=== PATIENT | female | born 2000 | race Caucasian/White ===

== ENCOUNTER 2022-05-16 18:33 | Emergency (ER) | payer SELFPAY ==
[2022-05-16 18:35] VITALS: BP 130/87; PULSE 96; RESP 15; TEMP 36.1; O2SAT 99; BMI 40.9
--- NOTE | 2022-05-16 19:33 | EDS_ITS ---
HPI History of Present Illness Chief Complaint: Dental Narrative Narrative: 21-year-old female presenting with left dental pain. She states is in her molar. Patient states that several days ago she felt a piece of the tooth cracked. She has had pain in that area since. She states he recently moved from [place] and does not have any insurance. She states dental will be about 8 months of waiting. She states that she has not any facial swelling. She does state that she is having difficulty eating secondary to the pain but also states she has food in her teeth from eating prior to coming. No trouble swallowing or breathing. She states she has been digging at the tooth with her finger and feels like there may be some drainage. PFSH PFSH Home Medications clindamycin HCl 150 mg capsule 450 mg PO TID 10 days #90 caps 05/16/22 [Rx Last Taken Unknown] Allergy/AdvReac Type Severity Reaction Status Date / Time amoxicillin Allergy Upset Verified 05/16/22 18:35 Stomach erythromycin base Allergy Upset Verified 05/16/22 18:35 Stomach Penicillins [PCN] Allergy Upset Verified 05/16/22 18:35 Stomach ROS ROS ED Constitutional Constitutional ED: Denies chills, fever(s) or sweats Eyes Eyes: Denies blurry vision or change in vision ENT ENT ED: Reports other Details: Dental pain ; Denies ear pain or sore throat Cardiovascular Cardiovascular: Denies chest pain, palpitations or racing heartbeat Respiratory/Chest Respiratory/Chest: Denies cough, dyspnea or sputum Gastrointestinal Gastrointestinal: Denies abdominal pain, constipation, diarrhea, nausea or vomiting Genitourinary Genitourinary ED: Denies dysuria, hematuria or urinary frequency Musculoskeletal Musculoskeletal: Denies arthralgias, myalgias or neck pain Integumentary Denies abscess, Abrasions or rash Neurologic Neurologic: Denies headache(s), paresthesias or weakness Psychiatric Psychiatric: Denies anxiety, depression, suicidal ideation or suicidal thoughts Endocrine Endocrinology: Denies polydipsia or polyuria EXAM Physical Exam Const Vital Signs: 05/16/22 18:35 Temperature 96.9 F L Temperature Source Temporal Pulse Rate 96 Respiratory Rate 15 Blood Pressure 130/87 H Blood Pressure Mean 101 Pulse Ox 99 Oxygen Delivery Method Room Air Positive well nourished General Appearance ED: NAD HEENT Negative for trauma Mouth ED: Yes lips normal, Yes tongue normal, Yes salivary gland normal, Yes oral and palatal mucosa abnormal and No trismus Mouth: lips normal, tongue normal, salivary gland normal, oral and palatal mucosa abnormal, No lesions, No thrush and No trismus Teeth and Gingiva: abnormal tooth and associated gingiva Positive for tenderness (Left molar) Throat: posterior oropharynx normal and tonsils normal Eyes PERRL Neck no lymphadenopathy and supple Lymph Lymphatic: no lymphadenopathy noted Resp normal respiratory effort and no retractions Cardio regular rate and regular rhythm Neuro oriented x3, CN's II-XII intact bilaterally, moves all extremities, no focal motor deficits and no sensory deficits noted Sensorium / Orientation: alert Psych mental status grossly normal MDM MDM MDM Narrative Medical decision making narrative: Patient presenting with dental pain. She states that her left molar. On examination she does have tenderness here. There are some slight erythema of the gingiva surrounding this. There is a piece of food impacted in between the teeth. No drainage is noted. No sublingual edema, tongue is normal. No submandibular fullness. No facial swelling. Patient states she is allergic to penicillin, erythromycin. Patient will be started on clindamycin. She is given dental referral sheets. Return precautions were discussed. Impression: 1. Dental infection 2. Odontalgia Lab Data Attestation: I reviewed the patient's lab results. Discharge Plan Triage Chief Complaint: Dental ED Provider: Rehan Sanders Dx/Rx/DC Orders Instructions: ED Dental Abscess Prescriptions: New clindamycin HCl 150 mg capsule 450 mg PO TID 10 Days Qty: 90 0RF Primary Care Provider: Jennie Cortes,Out of Referrals: Jennie Cortes,Out of [Primary Care Provider] - Disposition Disposition: Home, Self Care
[2022-05-16] MEDS: Clindamycin HCl 150 MG Capsule 450 MG PO (19:57)
== END 2022-05-16 20:30 | disposition home or self-care (01) ==
PROVIDERS: Emergency Provider Student in an Organized Health Care Education/Training Program; Visit Provider Student in an Organized Health Care Education/Training Program
DX: K04.7 Periapical abscess without sinus (principal); K01.1 Impacted teeth
CPT/HCPCS: 99283

== ENCOUNTER 2022-09-22 16:49 | Emergency (ER) | payer SELFPAY ==
[2022-09-22 16:50] VITALS: BP 126/90; PULSE 95; RESP 18; TEMP 36.4; O2SAT 100; BMI 39.1
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
== END 2022-09-22 17:48 | disposition home or self-care (01) ==
PROVIDERS: Emergency Provider Emergency Medicine; Visit Provider Emergency Medicine
DX: F41.9 Anxiety disorder, unspecified (principal); F43.0 Acute stress reaction
CPT/HCPCS: 99281

== ENCOUNTER 2022-10-06 20:12 | Emergency (ER) | payer SELFPAY ==
[2022-10-06 20:13] VITALS: BP 135/100; PULSE 97; RESP 18; TEMP 36.1; O2SAT 98; BMI 39.6
--- NOTE | 2022-10-06 20:41 | EX.ED.DYSGE1 ---
HPI History of Present Illness Chief Complaint: Lower Extremity Injury Detail of Chief Complaint: Low back pain Informant: patient Narrative Narrative: Patient presents secondary to low back pain. She states at work yesterday she was doing some training. There was a larger person in front of her and she was trying to lower them to the ground as weight. She states her left leg went out to the side and she fell harshly onto her right knee. She felt something pull in her lower back. When she got up this morning she had increased low back pain that wraps around into the hips. She does report some pain down toward the right thigh. No problems with bowel or bladder control. She states when she sits in a certain position she will feel like her legs go numb. She denies any history of back problems. [facility] Medical History Anxiety Home Medications hydroxyzine pamoate 25 mg capsule 50 mg PO TID PRN PRN Anxiety #20 CAPSULES 09/22/22 [Rx Last Taken Unknown] cyclobenzaprine 10 mg tablet 10 mg PO TID PRN Muscle Spasm #20 TABLETS 10/06/22 [Rx Last Taken Unknown] hydrocodone-acetaminophen 5-325mg 5mg-325mg 1 tab PO Q6H PRN PRN Pain 3 days #10 TABLETS 10/06/22 [Rx Last Taken Unknown] naproxen 500 mg tablet (Naprosyn) 500 mg PO BID PRN pain #20 tabs 10/06/22 [Rx Last Taken Unknown] Allergy/AdvReac Type Severity Reaction Status Date / Time amoxicillin Allergy Upset Verified 10/06/22 20:13 Stomach erythromycin base Allergy Upset Verified 10/06/22 20:13 Stomach Penicillins [PCN] Allergy Upset Verified 10/06/22 20:13 Stomach Social History Smoking Status: Never smoker ROS ROS ED Constitutional Constitutional ED: Denies chills or fever(s) Eyes Eyes: Denies discharge from eye(s) ENT ENT ED: Denies discharge from eye(s), rhinorrhea or sore throat Cardiovascular Cardiovascular: Denies chest pain or palpitations Respiratory/Chest Respiratory/Chest: Denies cough or dyspnea Gastrointestinal Gastrointestinal: Denies abdominal pain, nausea or vomiting Genitourinary Genitourinary ED: Denies difficulty urinating or dysuria Musculoskeletal Musculoskeletal: Reports back pain and extremity pain Integumentary Denies Abrasions or rash Neurologic Neurologic: Reports paresthesias; Denies headache(s) Psychiatric Psychiatric: Denies anxiety or depression Allergic/Immunologic Allergic/Immunologic ED: Denies lip swelling or urticaria EXAM Physical Exam Const Vital Signs: 10/06/22 20:13 Temperature 97 F L Temperature Source Temporal Pulse Rate 97 Respiratory Rate 18 Blood Pressure 135/100 H Blood Pressure Mean 111 Pulse Ox 98 Oxygen Delivery Method Room Air Positive well nourished and well developed General Appearance ED: well developed HEENT Reports normocephalic and head/scalp atraumatic Eyes PERRL and EOMs intact bilaterally Neck supple Chest Wall inspection of chest normal and palpation of chest normal Resp normal respiratory effort and clear to auscultation bilaterally Cardio regular rate and regular rhythm GI normal to inspection, nondistended, normoactive bowel sounds Palpation: soft Back/Spine Back/Spine Narrative: Reproducible tenderness in the bilateral lower lumbar paraspinal muscles. Extremity normal to inspection Neuro oriented x3 and no sensory deficits noted Sensorium / Orientation: alert Motor Exam: strength 5/5 throughout Psych mental status grossly normal Skin no rashes or lesions noted MDM MDM MDM Narrative Medical decision making narrative: Given the patient did have a hard fall onto her knee lumbar spine x-rays are obtained to ensure no evidence of compression fracture. Radiography Diagnostic Testing: Clinical Impression(s) from Imaging Studies Lumbar Spine X-Ray 10/06/22 20:50 IMPRESSION: Normal x-ray examination of the lumbar spine. Electronically Signed: Rebel Vincent MD at 21:07 EDT Reading Location ID and State: [facility] / [place] , Service support , Treatment and Re-Evaluation :: Lumbar spine x-ray per my interpretation reveals no evidence of fracture. Radiology interpretation is reviewed and agrees. Test results discussed with the patient. I will write her for naproxen, Flexeril, and [place]. I did ask her if she wants us to be on Worker's Comp. as the injury did occur at work and she denies. Discharge Plan Triage Chief Complaint: Lower Extremity Injury ED Provider: Nuno,Marquita Dx/Rx/DC Orders Clinical Impression: Lumbar radiculopathy, Lumbar strain Instructions: ED Back Sprain/Strain, ED Sciatica Prescriptions: New naproxen [Naprosyn] 500 mg tablet 500 mg PO BID PRN (Reason: pain) Qty: 20 0RF cyclobenzaprine 10 mg tablet 10 mg PO TID PRN (Reason: Muscle Spasm) Qty: 20 0RF hydrocodone-acetaminophen 5-325 mg tablet 1 tab PO Q6H PRN PRN (Reason: Pain) 3 Days Qty: 10 0RF No Action hydroxyzine pamoate [hydroxyzine pamoate] 25 mg capsule 50 mg PO TID PRN PRN (Reason: Anxiety) Qty: 20 0RF Rx Instructions: 1-2 capsule up to 3 times daily as needed for anxiety. Primary Care Provider: Care Physician,No Primary Referrals: Summer Adam MD [Med Staff - Library Customer Service Clerk] - 1-2 Weeks Care Physician,No Primary [Primary Care Provider] - Disposition Disposition: Home, Self Care
--- NOTE | 2022-10-06 20:50 | RAD_ITS ---
STUDY: X-RAY - LUMBAR SPINE REASON FOR EXAM: Female, 22 years old. injury TECHNIQUE: 3 view(s) of the lumbar spine were obtained. COMPARISON: None FINDINGS: Normal lumbar lordosis. There is no substantial scoliosis. There is a normal alignment of the vertebrae. Normal vertebral bodies and endplates. Normal disc space heights. Gallbladder has been removed surgically. RAD/Lumbar Spine 2 or 3 Views IMPRESSION: Normal x-ray examination of the lumbar spine. Electronically Signed: Rebel Vincent MD at 21:07 EDT ,
[2022-10-06] MEDS: HYDROcodone Bitartrate/Apap 5/325 Tablet PO (22:20)
[2022-10-06] MEDS: cycloBENZAPRine HCl 10 MG Tablet PO (22:20)
[2022-10-06 22:23] VITALS: PULSE 97; RESP 18; O2SAT 98
== END 2022-10-06 22:24 | disposition home or self-care (01) ==
PROVIDERS: Emergency Provider Emergency Medicine; Visit Provider Emergency Medicine
DX: S39.012A Strain of muscle, fascia and tendon of lower back, initial encounter (principal); M54.16 Radiculopathy, lumbar region; R20.2 Paresthesia of skin; X50.0XXA Overexertion from strenuous movement or load, initial encounter; Y99.0 Civilian activity done for income or pay
CPT/HCPCS: 72100; 99283

== ENCOUNTER 2022-10-14 20:28 | Emergency (ER) | payer SELFPAY ==
[2022-10-14 20:28] VITALS: BP 129/73; PULSE 99; RESP 16; TEMP 36.6; O2SAT 98; BMI 41.0
--- NOTE | 2022-10-14 20:40 | EX.ED.DYSGE1 ---
HPI History of Present Illness Chief Complaint: Anxiety Narrative Narrative: Patient presents with anxiety, she has chronic anxiety she was recently seen in the emergency department and placed on Vistaril, she ran out. She has an appointment with PCP in about 3 weeks and with counseling center and about 2 weeks. She has no new complaints she does not have any suicidal ideations. She has no somatic complaints. [facility] Medical History Anxiety Home Medications hydroxyzine pamoate 25 mg capsule 50 mg PO TID PRN PRN Anxiety #20 CAPSULES 09/22/22 [Rx Last Taken Unknown] hydroxyzine pamoate 50 mg capsule (Vistaril) 50 mg PO BID #30 caps 10/14/22 [Rx Last Taken Unknown] hydroxyzine pamoate 50 mg capsule (Vistaril) 50 mg PO BID PRN anxiety #30 caps 10/14/22 [Rx Last Taken Unknown] Allergy/AdvReac Type Severity Reaction Status Date / Time amoxicillin Allergy Upset Verified 10/14/22 20:31 Stomach erythromycin base Allergy Upset Verified 10/14/22 20:31 Stomach Penicillins [PCN] Allergy Upset Verified 10/14/22 20:31 Stomach Social History Smoking Status: Never smoker ROS ROS ED ROS Narrative Past medical history: Reviewed, includes PTSD and anxiety Medications: Reviewed Social history: Noncontributory Review of systems: All systems negative except as indicated General: No fever Cardiovascular: No chest pain Respiratory: No shortness of breath or cough Gastrointestinal: No abdominal pain, nausea vomiting or diarrhea Genitourinary: No dysuria Psych: As in HPI EXAM Physical Exam Narrative Exam Narrative: Physical exam General: She is relatively comfortable in the bed Head: Normocephalic, Atraumatic Eyes: Conjunctiva not pale ENT: Moist mucous membranes Cardiovascular: Regular rate, Regular rhythm Respiratory: No distress, CTA bilaterally Abdomen: Soft, Nontender, Nondistended Skin: Normal color, No rash Neurological: Alert, Normal Strength, Normal Sensation Psychological: Anxious appearing, however she is lucid and coherent and gives me a reasonable history. No suicidal ideations Const Vital Signs: 10/14/22 20:28 Temperature 97.8 F Temperature Source Temporal Pulse Rate 99 Respiratory Rate 16 Blood Pressure 129/73 H Blood Pressure Mean 91 Pulse Ox 98 Oxygen Delivery Method Room Air MDM MDM MDM Narrative Medical decision making narrative: Patient has anxiety, this is chronic and recurrent I do not believe this is somatic, therefore TSH, basic metabolic panel or even a CBC are not needed. She is young and healthy with normal vitals. I will discharge her in stable condition. She is to follow-up with her appointments. I believe it is reasonable to fill some Vistaril for her. Discharge Plan Triage Chief Complaint: Anxiety ED Provider: Eugene Rock Dx/Rx/DC Orders Clinical Impression: Anxiety, Post traumatic stress disorder Instructions: Anxiety Disorders Tx Prescriptions: New hydroxyzine pamoate [Vistaril] 50 mg capsule 50 mg PO BID PRN (Reason: anxiety) Qty: 30 0RF hydroxyzine pamoate [Vistaril] 50 mg capsule 50 mg PO BID Qty: 30 0RF No Action hydroxyzine pamoate [hydroxyzine pamoate] 25 mg capsule 50 mg PO TID PRN PRN (Reason: Anxiety) Qty: 20 0RF Label Comments: PT REPORTS SHE IS OUT OF THIS MED. Rx Instructions: 1-2 capsule up to 3 times daily as needed for anxiety. Primary Care Provider: Care Physician,No Primary Referrals: Care Physician,No Primary [Primary Care Provider] - 3-5 Days Disposition Disposition: Home, Self Care
[2022-10-14] MEDS: hydrOXYzine PAM 25 MG Capsule 50 MG PO (20:43)
== END 2022-10-14 20:59 | disposition home or self-care (01) ==
LOC: ED 20:58
PROVIDERS: Emergency Provider Emergency Medicine; Visit Provider Emergency Medicine
DX: F41.9 Anxiety disorder, unspecified (principal); F43.10 Post-traumatic stress disorder, unspecified; Z76.0 Encounter for issue of repeat prescription
CPT/HCPCS: 99282

== ENCOUNTER → 2022-11-23 | Outpatient (CLI) | payer BC, SELFPAY ==
[2022-11-23 08:19] LABS: Hematocrit 39.4 % (37-47); Hemoglobin 12.6 g/dL (12.0-15.0); Mean Corpuscular Hgb 29.2 pg (27.0-32.0); Mean Corpuscular Volume 91.4 fL (81-99); Platelet Count 284 K/mm3 (150-450); RBC Distribution Width SD 40.2 fl (35.1-43.9); Red Blood Count 4.31 M/mm3 (4.2-5.4); White Blood Count 8.4 K/mm3 (4.4-11.0)
[2022-11-23 08:52] LABS: Vitamin D,25 Hydroxy 21.5 ng/mL
[2022-11-23 08:57] LABS: ALB/GLOB Ratio 0.8 RATIO (0.9-2.4); AST(SGOT) 17 U/L (15-37); Alanine Aminotransfer ALT/SGPT 19 U/L (13-56); Albumin, Serum 3.4 g/dL (3.2-5.0); Alkaline Phosphatase 87 U/L (45-117); Anion Gap 7 (5-15); BUN 15 mg/dL (7-18); BUN/Creat Ratio 20.9 RATIO (10-20); Calcium,Total 8.5 mg/dL (8.5-10.1); Chloride 107 mmol/L (98-107); Cholesterol 182 mg/dL (200); Creatinine, Serum 0.72 mg/dL (0.55-1.02); EST Glomerular Filtration Rate 107 mL/min (>60); Est Glom Filt Rate - Afr Amer 129 mL/min (>60); Globulin 4.2 g/dL (2.2-4.2); Glucose 101 mg/dL (74-106); High Density Lipoprotein 46 mg/dL; Potassium 4.2 mmol/L (3.5-5.1); Protein, Total 7.6 g/dL (6.4-8.2); Sodium Level 139 mmol/L (136-145); T4 Free Direct 0.91 ng/dL (0.76-1.46); Thyroid Stim Hormone (TSH) 3.38 uIU/mL (0.358-3.74); Triglycerides 173 mg/dL; Very Low Density Lipoprotein 35 mg/dL (5-40)
== END | disposition home or self-care (01) ==
DX: Z76.89 Persons encountering health services in other specified circumstances (principal); F33.2 Major depressive disorder, recurrent severe without psychotic features; Z13.6 Encounter for screening for cardiovascular disorders; Z13.1 Encounter for screening for diabetes mellitus; Z86.39 Personal history of other endocrine, nutritional and metabolic disease
CPT/HCPCS: 36415; 80053; 80061; 82306; 84439; 84443; 85027

== ENCOUNTER → 2022-12-01 | Outpatient (CLI) | payer BC, SELFPAY ==
--- NOTE | 2022-12-01 16:59 | RAD_ITS ---
INDICATION: left ankle strain EXAMINATION/TECHNIQUE: X-RAY - LEFT XR Ankle Min 3 Views 3 VIEWS COMPARISON: Left ankle series 11/14/2022 FINDINGS: SOFT TISSUES: No soft tissue swelling or gas. No radiopaque foreign body. BONES/JOINTS: No acute fracture. Joint spaces anatomically aligned. RAD/Ankle min 3 Views IMPRESSION: Unremarkable study. Electronically Signed: Brandon Padilla MD at 17:13 EDT ,
== END | disposition home or self-care (01) ==
LOC: MTRAD 16:59
PROVIDERS: Referring Provider Physician Assistant Surgical; Visit Provider Physician Assistant Surgical
DX: S93.402A Sprain of unspecified ligament of left ankle, initial encounter (principal); X58.XXXA Exposure to other specified factors, initial encounter
CPT/HCPCS: 73610

== ENCOUNTER → 2022-12-30 | Outpatient (CLI) | payer OTHER, SELFPAY ==
--- NOTE | 2022-12-30 11:44 | MRI_ITS ---
EXAM: MR LEFT LOWER EXTREMITY WITHOUT INTRAVENOUS CONTRAST, ANKLE CLINICAL INDICATION: L ankle pain TECHNIQUE: Multiplanar and multisequence MR images of the left ankle without intravenous contrast. COMPARISON: August FINDINGS: LIGAMENTS: ANTERIOR TALOFIBULAR: Unremarkable. Intact. POSTERIOR TALOFIBULAR: Unremarkable. Intact. ANTERIOR TIBIOFIBULAR: Unremarkable. Intact. POSTERIOR TIBIOFIBULAR: Unremarkable. Intact. CALCANEOFIBULAR: Unremarkable. Intact. DELTOID: Signal alteration suggesting low to moderate grade sprain injury involving the deltoid ligamentous complex deep and superficial fibers. SPRING: Unremarkable. Intact. LISFRANC: Unremarkable. Intact. TENDONS: ACHILLES: Unremarkable. Intact. FLEXOR: Unremarkable. Intact. EXTENSOR: Unremarkable. Intact. PERONEAL: Unremarkable. Intact. TIBIALIS ANTERIOR: Unremarkable. Intact. TIBIALIS POSTERIOR: Unremarkable. Intact. MUSCLES: Unremarkable. Normal bulk and signal. FLUID: Unremarkable. No joint effusion. SINUS TARSI: Unremarkable. Normal fat in the sinus tarsi. TARSAL TUNNEL: Unremarkable. PLANTAR FASCIA: Unremarkable. Intact. CARTILAGE: Unremarkable. No osteochondral lesion. Articular cartilage intact. BONES/JOINTS: Unremarkable. Talar dome intact. No fracture or marrow edema. OTHER SOFT TISSUES: Unremarkable. OTHER FINDINGS: Peroneal tenosynovitis. MRI/Lower Ext Joint Only (Routine) IMPRESSION: Peroneal tenosynovitis with intact peroneal tendons. Signal alteration suggesting low to moderate grade sprain injury involving the deltoid ligamentous complex deep and superficial fibers. Electronically Signed: Haim Dey MD at 22:38 EDT Reading Location ID and State: [address] [place] [address] Tel , Service support ,
== END | disposition home or self-care (01) ==
LOC: MRI 11:34
PROVIDERS: Referring Provider Physician Assistant Surgical; Visit Provider Physician Assistant Surgical
DX: S93.402A Sprain of unspecified ligament of left ankle, initial encounter (principal); X58.XXXA Exposure to other specified factors, initial encounter
CPT/HCPCS: 73721

== ENCOUNTER 2023-02-24 20:52 | Emergency (ER) | payer BC, SELFPAY ==
[2023-02-24 20:53] VITALS: BP 141/93; PULSE 104; RESP 15; TEMP 36.2; O2SAT 99; BMI 41.8
--- NOTE | 2023-02-24 21:32 | ED.VIS.DYS ---
HPI History of Present Illness Chief Complaint: Shortness of Breath PFSH PFSH Medical History Anxiety Contusion of left knee Left ankle sprain Sprain of left foot Home Medications CBD Oil topical 01/18/23 [History Last Taken Unknown] ibuprofen 600 mg tablet 600 mg PO Q8H PRN 01/18/23 [History Last Taken Unknown] doxycycline hyclate 100 mg capsule 100 mg PO BID 7 days #14 caps 02/24/23 [Rx Last Taken Unknown] Allergy/AdvReac Type Severity Reaction Status Date / Time amoxicillin Allergy Upset Verified 02/24/23 20:58 Stomach erythromycin base Allergy Upset Verified 02/24/23 20:58 Stomach Penicillins [PCN] Allergy Upset Verified 02/24/23 20:58 Stomach trazodone AdvReac Unknown suicidal Verified 02/24/23 20:58 ideation Social History Smoking Status: Never smoker EXAM Physical Exam Const Vital Signs: 02/24/23 20:53 02/24/23 21:05 Temperature 97.1 F L Temperature Source Temporal Pulse Rate 104 H Respiratory Rate 15 Respiratory Effort Normal Non-Labored Blood Pressure 141/93 H Blood Pressure Mean 109 Pulse Ox 99 Oxygen Delivery Method Room Air MDM MDM MDM Narrative Medical decision making narrative: HISTORY OF PRESENT ILLNESS: 22-year-old female here with concern for shortness of breath. Notes with any activity she gets coughing and short of breath. White or clear sputum. She feels like her lungs follow-up with fluid when she exercises or when she sleeps. She is concerned that she may in her sleep. She denies any chest pain or shortness of breath at this time. Denies any cough or fever. Denies any lower extremity edema. The patient denies recent surgery in the last 4 weeks or immobilization in the last 3 days, denies previous diagnosis of DVT or PE, hemoptysis, unilateral leg swelling or malignancy with treatment the last 6 months or palliative. No estrogen use noted. REVIEW OF SYSTEMS: Pertinent positives: Short of breath Pertinent negatives: PHYSICAL EXAM: Nursing triage notes reviewed, Vital signs reviewed Constitutional: please see mdm HENT: MMM Eyes: Pupils equal round and reactive to light, Extraocular muscles intact Neck: No stridor, no JVD, full neck ROM Lungs: Clear to auscultation, No wheezing or rales. No increased work of breathing, no conversational dyspnea, no accessory muscle use, no nasal flaring. No respiratory distress noted Heart: Regular rate and rhythm, No murmurs, No rubs and No gallops, 2+ distal pulses (radial, femoral, posterior tibial) in all extremities Abdomen: Soft, there is no tenderness, rigidity, rebound or guarding, no obvious peritoneal signs, no palpable pulsatile abdominal masses, no auscultated abdominal bruit : No CVAT Extremities: No edema Neuro: No focal neurological deficits, cranial nerves II through XII intact, 5/5 strength in all extremities. Intact sensation to light touch in all extremities, 2+ reflexes bilateral patella tendons. Normal gait. No ataxia. Skin: No rash or lesions noted MEDICAL DECISION MAKING: Chief Complaint: Shortness of breath External records reviewed: Prior ED visit reviewed: Last ED visit in 2022 for anxiety Factors affecting care: Anxiety Social determinants of health: Takes CBD oil History obtained from others: Patient's family Consults: none MDM Narrative: Patient was hemodynamically stable, afebrile, nontoxic-appearing. Without obvious focal abnormalities. I considered the following differential diagnosis: Pulmonary edema, pneumonia, pulmonary embolism I considered PE however the patient is low risk Wells score and as such have a low suspicion for pulmonary embolism. I did obtain an x-ray to rule out signs of pneumonia or pulmonary edema. Chest x-ray was read and reviewed by myself and showed no evidence of pulmonary edema or pneumonia. Per radiology read they are concerned about right middle lobe pneumonia. Given this concern we will give prophylactic antibiotics. Is not hypoxic and there is no indication for admission at this time. ALL IMAGES (IF OBTAINED) HAVE BEEN PERSONALLY REVIEWED AND INTERPRETED BY MYSELF. The patient and/or family, caregivers express understanding. The patient and/or family, caregivers agrees with the plan. Shared decision making: I will have a discussion with the patient and or visitors regarding risk/benefits of further testing or admission. They will be made aware of of the risk/benefits inherent in this decision they will be given the opportunity to voice understanding. Total critical care time today provided was at least 0 minutes. This excludes separately billable procedures. Critical care time (if documented) is secondary to the patient having high probability of clinically significant/life threatening deterioration in the patient's condition which required my urgent intervention. Impression: 1. Dyspnea 2. History of asthma 3. Community-acquired pneumonia Dispo: Discharge Radiography Diagnostic Testing: Clinical Impression(s) from Imaging Studies Chest X-Ray 02/24/23 21:58 IMPRESSION: Right middle lobe pulmonary opacity which may be pneumonia or atelectasis. Electronically Signed: Richie VSarah Peralta DO at 22:30 EDT , Discharge Plan Triage Chief Complaint: Shortness of Breath ED Provider: Mike High Dx/Rx/DC Orders Instructions: ED Pneumonia (Adult) Prescriptions: New doxycycline hyclate 100 mg capsule 100 mg PO BID 7 Days Qty: 14 0RF No Action CBD Oil topical ibuprofen 600 mg tablet 600 mg PO Q8H PRN Primary Care Provider: Care Physician,No Primary Referrals: Diana Resenidz MD [Med Staff - Palliative Care Nurse] - Activity Restrictions/Additional Instructions: Thank you for trusting us with your care today! Please take Tylenol (2 pills, 650 mg), ibuprofen (2 pills, 400 mg) every 6 hours as needed for pain and fever control. Please take antibiotics as prescribed. Please return to the emergency department if your symptoms change or worsen. Specifically if develop worsening shortness of breath, cough, fatigue or weakness. If you lose consciousness. Please follow with your primary care physician for further outpatient evaluation and management. Disposition Disposition: Home, Self Care
--- NOTE | 2023-02-24 21:58 | RAD_ITS ---
EXAM: XR CHEST, 2 VIEWS CLINICAL INDICATION: SOB, cough, r/o PNA TECHNIQUE: Frontal and lateral views of the chest. COMPARISON: No relevant prior studies available. FINDINGS: LUNGS AND PLEURAL SPACES: Right middle lobe pulmonary opacity which may be pneumonia or atelectasis. No pneumothorax. No effusion. HEART: No significant abnormality. Cardiac silhouette not enlarged. MEDIASTINUM: Central airways and mediastinal contour are unremarkable. BONES/JOINTS: No significant abnormality. SOFT TISSUES: No significant abnormality. RAD/Chest PA and Lateral IMPRESSION: Right middle lobe pulmonary opacity which may be pneumonia or atelectasis. Electronically Signed: Richie Peralta DO at 22:30 EDT ,
[2023-02-24] MEDS: Doxycycline 100 MG CAPSULE PO (22:53)
== END 2023-02-24 23:02 | disposition home or self-care (01) ==
PROVIDERS: Emergency Provider Emergency Medicine; Visit Provider Emergency Medicine
DX: J18.9 Pneumonia, unspecified organism (principal); F41.9 Anxiety disorder, unspecified; J45.909 Unspecified asthma, uncomplicated
CPT/HCPCS: 71046; 99282

== ENCOUNTER 2023-03-05 07:30 | Outpatient (RCR) | payer OTHER, SELFPAY ==
--- NOTE | 2022-12-25 07:46 | HP.PTEVAL ---
Patient's Visit Information Visit Information Visit Information: MATT DRUMMOND is a 22 year old F referred to Physical Therapy by ASIM Gomez with a diagnosis of L ankle sprain. Date of Evaluation: 12/25/22 Physical Therapist: Sharan Rosario, MARYJOT, OCS, CSCS Visit Plan Frequency: 3x /Week Duration: 4-6 Weeks Plan: 3x/week for 3-6 weeks for 1. manual therapy PROM and STM L ankle and foot 2. AROM and strength and proprioception to tolerance of L ankle gait training, TENS with ice as needed, ensure appropriate bracing and weaning if appropriate.progress HEP, stair training. Will need to run again at work eventually. Subjective Subjective: November 09 fell off a scooter working with [employer] at [facility]. Rerolled L ankle again two weeks later chasing [employer]. Had x rays and diagnosed with sprain. it got a little better then she reinjured it. Now it is on no running restriction, then put on aircast and put on sitting only so cannot work for the last two weeks. It does not feel much better overall. she wears aircast up and about. Walking a bunch makes it worse and partially numb. Hurt on inside at first and now hurts outside. 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 Spends day in bed playing video games. When working is 50 hours per week in 4 days. And is standing and on feet alot walking and running when she can work. Sleep is not a problem with the ankle. Pain L ankle: Pain Intensity (Out of 10): 3 Pain Intensity Range: 2 and 6 Objective Objective: Pronounced Ta jhonny ya dons and doffs aircast I. Tightness present in gastroc today minimally L ankle antalgic with gait and avoids DF at end of stance cutting stance time short. SLS L is 1 sec vs 5+ on R, hesitant due to pain laterally. Trasnfers chair and bed I. L ankle aROM hesitant and limited to -6 DF, 50 PF, 15 inv and 10 eversion AROM self limited, PROM is to 0 Df, 60 PF, 25 inv and 15 eversion but pain end of DF and PF and inv lateral L ankle. Pt has admitted anxiety and this comes out when attempting to move ankle R ankle 5 DF to 60 PF, to 30 inv and 20 eversion. strength L ankle is hesitant and 4-, vs 4 on R ankle Tender to touch over fibular malleoli and distal to that in lateral ligs moderately and up into peroneal tendons minimally. - talar tilt test.reflexes 2/3 patella and achilles B sensation B feet and LE WNL to gross light touch. Balance/Special Test Scores Lower Extremity Functional Score: 35 Goals Goal 1:: Patient have full aROM L ankle without hesitation or pain Goal Time Frame: 2-4 Weeks Goal 2:: Walk and steps without antalgia Goal Time Frame: 4-6 Weeks Goal 3:: Pt feel 90% back to normal ankle function with 0-1/10 pain Goal Time Frame: 4-6 Weeks Goal 4:: Ready to return to work full duty Goal Time Frame: 4-6 Weeks Rehabilitation Potential Physical Therapy Diagnosis: Likely L ankle sprain with hesitancy to move. Rehabilitation Potential: Fair Anticipated Interventions Patient/Client Instruction: Educate patient on: Condition and Plan of Care For the Purpose of:: To decrease pain, To increase ROM, To improve nutrient delivery to tissue and To improve muscle performance and motor function Therapeutic Exercise to Include: Strength training, Flexibilty training, Gait and locomotor training, Passive ROM and Active ROM For the Purpose of:: To decrease pain, To increase ROM, To improve nutrient delivery to tissue, To improve muscle performance and motor function, To increase tolerance to activity/condition/position, To improve ability of physical actions for home/community/work/leisure and To improve gait and locomotor functions Manual Therapy Techniques to Include: Mobilization, Passive ROM and Soft tissue mobilization For the Purpose of:: To decrease pain, To increase ROM and To improve nutrient delivery to tissue TENS: Yes Cryotherapy (ice pack, ice massage): Yes For the Purpose of:: To decrease pain, To decrease swelling/inflammation and To increase ROM Text: Thank you for the opportunity to evaluate your patient. For Medicare and Medicare HMO plans, please review the plan of care and approve it. It will need to be FAXED BACK to us at [phone] for Medicare purposes. For Medicare only, by signing this I certify the plan of care. Please let me know if there are questions or concerns regarding this plan of care. Physician Signature: Date:
--- NOTE | 2023-01-16 12:12 | HP.PTREVAL ---
Re-Evaluation Intro: ASIM Gomez, It has been my pleasure to treat MATT DRUMMOND over the last 11 visits for L ankle sprain. Please see the progress note below for an update on the physical therapy plan of care! Subjective Subjective: Waiting on ortho to call and schedule appointment. She thinks it has been approved. Overall feels like she is holding her own but not better. 4/10 pain intermittiently with standing too long and getting in and out of shower. Pain is laterally. Evening is worse and sometimes swollen. Is now in a boot from [facility] and this has brought pain down from 7 to 2-4/10. Sleeping is not interrupted bythe ankle. Is in boot all day also using crutches NWB for 2 weeks and is not much better than two weeks ago. Is being obedient to NWB at home, not always boot. Objective Objective/Function: LEFS is worse than day one despite pain levels being down and NWB status. Seems preoccupied with pain and popping in a fear avoidance manner. DF AROM to 0 very slowly and fear avoidance on pain and popping. Inv 25 with pain laterally, eversion 15 with no pain. PF able but heel raises are mild painful. Tender over peroneal tendons at and above malleoli L, less so in lateral ligaments of ankle. Walking is slow and labored and avoids DF on l ankle today without AD. NWB ambulation is tolerable and good without pain. Appropriate for ortho consult and will continue PT until that time. Plan Plan Plan: POC Pateint to do strengthening and end ROM at home. In therapy, please do STM and PROM to end range and ankle mobs for ROM, can use MH and ice massage. can rollout gastroc and soleus and stretch progressing to HEP. May do proprioceptive stuff L ankle when WB allowed by doctor. Balance/Gait/Functional tests Balance/Special Test Scores Lower Extremity Functional Score: 18 Goals Goals Goal 1:: Patient have full aROM L ankle without hesitation or pain Goal Time Frame: 2-4 Weeks Goal Progress: Progressing Goal 2:: Walk and steps without antalgia Goal Time Frame: 4-6 Weeks Goal Progress: Not Progressing Goal 3:: Pt feel 90% back to normal ankle function with 0-1/10 pain Goal Time Frame: 4-6 Weeks Goal Progress: ARDUAOUSLY SLOW Goal 4:: Ready to return to work full duty Goal Time Frame: 4-6 Weeks Goal Progress: Not Progressing Anticipated Interventions Anticipated Interventions Patient/Client Instruction: Educate patient on: Condition and Plan of Care For the Purpose of:: To decrease pain, To increase ROM, To improve nutrient delivery to tissue and To improve muscle performance and motor function Therapeutic Exercise to Include: Strength training, Flexibilty training, Gait and locomotor training, Passive ROM and Active ROM For the Purpose of:: To decrease pain, To increase ROM, To improve nutrient delivery to tissue, To improve muscle performance and motor function, To increase tolerance to activity/condition/position, To improve ability of physical actions for home/community/work/leisure and To improve gait and locomotor functions Manual Therapy Techniques to Include: Mobilization, Passive ROM and Soft tissue mobilization For the Purpose of:: To decrease pain, To increase ROM and To improve nutrient delivery to tissue TENS: Yes Cryotherapy (ice pack, ice massage): Yes For the Purpose of:: To decrease pain, To decrease swelling/inflammation and To increase ROM Re-Evaluation Ending Re-evaluation ending: Please do not hesitate to contact me at [phone] by phone or if you have questions or concerns regarding this new plan of care! Sincerely, Sharan Rosario, DPT, OCS, CSCS
--- NOTE | 2023-01-31 13:15 | HP.PTREVAL ---
Re-Evaluation Intro: ASIM Gomez, It has been my pleasure to treat MATT DRUMMOND over the last 17 visits for L ankle sprain. Please see the progress note below for an update on the physical therapy plan of care! Subjective Subjective: [place] 6 hours. Hurt after that /10 for that day and into the next. Normal activities at home are OK. 2/10 pain at rest most of time. sleep is OK. Doing HEP of HR, band and ROM. Does band with GTB 3x10 Objective Objective/Function: walking without antalgia today, jogs Ok for 80 feet then gets slightly L antalgic. ROM is WNL and without increased pain today. Tender over peroneal tendons at maleoli but better than a month ago. Strength is 4 in eversion and 5/5 in DF , inv and PF on l ankle. Plan Plan Plan: 3x/week for 4 weeks to progress proprioception and strength and especially jogging volume, agility, plyo per tolerance. Balance/Gait/Functional tests Balance/Special Test Scores Lower Extremity Functional Score: 52 Goals Goals Goal 1:: Patient have full aROM L ankle without hesitation or pain Goal Time Frame: 2-4 Weeks Goal Progress: Progressing Goal 2:: Walk and steps without antalgia Goal Time Frame: 4-6 Weeks Goal Progress: Not Progressing Goal 3:: Pt feel 90% back to normal ankle function with 0-1/10 pain Goal Time Frame: 4-6 Weeks Goal Progress: ARDUAOUSLY SLOW Goal 4:: Ready to return to work full duty Goal Time Frame: 4-6 Weeks Goal Progress: Not Progressing Anticipated Interventions Anticipated Interventions Patient/Client Instruction: Educate patient on: Condition and Plan of Care For the Purpose of:: To decrease pain, To increase ROM, To improve nutrient delivery to tissue and To improve muscle performance and motor function Therapeutic Exercise to Include: Strength training, Flexibilty training, Gait and locomotor training, Passive ROM and Active ROM For the Purpose of:: To decrease pain, To increase ROM, To improve nutrient delivery to tissue, To improve muscle performance and motor function, To increase tolerance to activity/condition/position, To improve ability of physical actions for home/community/work/leisure and To improve gait and locomotor functions Manual Therapy Techniques to Include: Mobilization, Passive ROM and Soft tissue mobilization For the Purpose of:: To decrease pain, To increase ROM and To improve nutrient delivery to tissue TENS: Yes Cryotherapy (ice pack, ice massage): Yes For the Purpose of:: To decrease pain, To decrease swelling/inflammation and To increase ROM Re-Evaluation Ending Re-evaluation ending: Please do not hesitate to contact me at [phone] by phone or if you have questions or concerns regarding this new plan of care! Sincerely, Sharan Rosario, DPT, OCS, CSCS
--- NOTE | 2023-03-05 07:47 | HP.PTDCSUM ---
Discharge Summary D/C summary: It has been my pleasure to treat MATT DRUMMOND referred by ASIM Gomez, with the diagnosis of L ankle sprain for a total of 29 visit(s). Discharge Date: 03/05/23 Please see the following information for a summary of their discharge status. Subjective Subjective: Feeling good. No pain all weekend and normal activity.. She gets it slightly and transiently with running but that is not part of her typical activity(may have to do it at work). Ankle not keeping her up at night. Carried heavy boxes over weekend without a problem. Life is normal. Feels like she is ready for work. Has braces she will wear to work. BTB 3x10 ankle, heel raises, jogging/walking at home as HEP. Pain L ankle: Pain Intensity (Out of 10): 0 Overall Improvement % Improvement: 95 Objective Objective/Function: Walking normal and steps normal up and down. 8 degrees DF, full PF/inv/ev symmetrical with R side without pain. 4+/5 strength in all ankle motions...no pain. Objectively and subjectively ready to RTW. Goals Goal 1:: Patient have full aROM L ankle without hesitation or pain Goal Progress: Goal Met Goal 2:: Walk and steps without antalgia Goal Progress: Goal Met Goal 3:: Pt feel 90% back to normal ankle function with 0-1/10 pain Goal Progress: Goal Met Goal 4:: Ready to return to work full duty Goal Progress: Goal Met Plan Plan: d/c to HEP and gym workout. D/C Information d/c sentence: If there are questions or concerns regarding this patient's physical therapy, please feel free to call me at [phone]. Thank you for the referral of this patient. Sincerely, Sharan Rosario, DPT, OCS, CSCS Balance/Gait/Functional tests Balance/Special Test Scores Lower Extremity Functional Score: 73 Improvement % Improvement: 95
== END 2023-03-05 19:00 | disposition home or self-care (01) ==
LOC: PT 07:30
PROVIDERS: Visit Provider Physician Assistant Surgical
DX: S93.402D Sprain of unspecified ligament of left ankle, subsequent encounter (principal)
CPT/HCPCS: 97014; 97035; 97110; 97140; 97161; 97164; 97530; G0283

== ENCOUNTER 2023-03-09 18:08 | Emergency (ER) | payer BC, SELFPAY ==
[2023-03-09 18:10] VITALS: BP 130/86; PULSE 91; RESP 18; TEMP 36.1; O2SAT 100; BMI 42.0
[2023-03-09 18:45] LABS: Mucous, Urine 0 SEEN /hpf (<or=2+); Squamous Epithelial Cells - UA 0 SEEN /hpf (5-10)
[2023-03-09 18:47] LABS: Color, Urine Yellow (Yellow); Glucose, Dipstick Normal (Normal); Ketone-Dipstick Negative (Negative); Leukocyte Esterase-Dipstick 500 /ul (Negative); Nitrite-Dipstick Negative (Negative); Occult Blood-Urine 250 /ul (Negative); Protein-Dipstick 15 mg/dl (Negative); Urine Bilirubin Dipstick Negative (Negative); Urine Clarity Sl. Cloudy (Clear); Urine Urobilinogen Normal (Normal)
--- NOTE | 2023-03-09 19:04 | EDS_ITS ---
HPI HPI - Female History of Present Illness Chief Complaint: Complaint Narrative Narrative: 22-year-old female presenting with hematuria, dysuria, urinary frequency. She has history of UTIs and kidney stones. She states earlier this week she had some back pain that was bilateral. The back pain is resolved and now she is having dysuria and hematuria. No fevers, chills, nausea, vomiting. She went to urgent care who tested her urine and told her she might have a UTI, but she states they wrote a prescription for antibiotics but then they could not fill it and stays in her home without antibiotics. She came here because she needed antibiotics for her UTI. PFSH PFS Medical History Anxiety Contusion of left knee Left ankle sprain Sprain of left foot Home Medications CBD Oil topical 01/18/23 [History Last Taken Unknown] ibuprofen 600 mg tablet 600 mg PO Q8H PRN 01/18/23 [History Last Taken Unknown] doxycycline hyclate 100 mg capsule 100 mg PO BID 7 days #14 caps 02/24/23 [Rx Last Taken Unknown] nitrofurantoin monohydrate/macrocrystals 100 mg capsule (Macrobid) 100 mg PO Q12H 5 days #10 caps 03/09/23 [Rx Last Taken Unknown] nitrofurantoin monohydrate/macrocrystals 100 mg capsule (Macrobid) 100 mg PO Q12H 5 days #10 caps 03/09/23 [Rx Last Taken Unknown] Allergy/AdvReac Type Severity Reaction Status Date / Time amoxicillin Allergy Upset Verified 03/09/23 18:09 Stomach erythromycin base Allergy Upset Verified 03/09/23 18:09 Stomach Penicillins [PCN] Allergy Upset Verified 03/09/23 18:09 Stomach trazodone AdvReac Unknown suicidal Verified 03/09/23 18:09 ideation Social History Smoking Status: Never smoker ROS ROS ED Constitutional Constitutional ED: Denies chills, fever(s) or sweats Eyes Eyes: Denies blurry vision or change in vision ENT ENT ED: Denies ear pain or sore throat Cardiovascular Cardiovascular: Denies chest pain, palpitations or racing heartbeat Respiratory/Chest Respiratory/Chest: Denies cough, dyspnea or sputum Gastrointestinal Gastrointestinal: Denies abdominal pain, constipation, diarrhea, nausea or vomiting Genitourinary Genitourinary ED: Reports dysuria, hematuria and urinary frequency Musculoskeletal Musculoskeletal: Reports other Details: Resolved bilateral back pain ; Denies arthralgias, myalgias or neck pain Integumentary Denies abscess, Abrasions or rash Neurologic Neurologic: Denies headache(s), paresthesias or weakness Psychiatric Psychiatric: Denies anxiety, depression, suicidal ideation or suicidal thoughts Endocrine Endocrinology: Denies polydipsia or polyuria EXAM Physical Exam Const Vital Signs: 03/09/23 18:10 Temperature 97 F L Temperature Source Temporal Pulse Rate 91 Respiratory Rate 18 Blood Pressure 130/86 H Blood Pressure Mean 100 Pulse Ox 100 Oxygen Delivery Method Room Air Positive well nourished General Appearance ED: NAD HEENT Reports moist mucous membranes Eyes PERRL and EOMs intact bilaterally Neck no lymphadenopathy Resp normal respiratory effort Cardio regular rate and regular rhythm GI normal to inspection, nondistended, normoactive bowel sounds Back/Spine no CVA tenderness Neuro oriented x3 Sensorium / Orientation: alert Motor Exam: strength 5/5 throughout Psych mental status grossly normal Skin no rashes or lesions noted MDM MDM MDM Narrative Medical decision making narrative: Patient presenting with dysuria and hematuria. She is concerned for UTI but she also states he has a history of kidney stones and had back pain earlier this week. She does not feel that she has any back pain now. She is more concerned for UTI. We will start with a urinalysis. She already had a negative hCG today. Urinalysis consistent with UTI. She is not having any flank pain. We discussed the possibility of kidney stone although at this point she wants to be treated for UTI. She is given a prescription which was filled here at the hospital. Return precautions were discussed. Impression: 1. UTI 2. Hematuria Lab Data Attestation: I reviewed the patient's lab results. Labs: Laboratory Results - last 24 hr 03/09/23 18:35 Urine Color Yellow Urine Clarity Sl. Cloudy Urine pH 6.0 Ur Specific [place] 1.020 Urine Protein 15 H Urine Glucose (UA) Normal Urine Ketones Negative Urine Occult Blood 250 H Urine Nitrite Negative Urine Bilirubin Negative Urine Urobilinogen Normal Ur Leukocyte Esterase 500 H Urine RBC 10-25 SEEN Urine WBC >100 SEEN Ur Squamous Epith Cells 0 SEEN Urine Bacteria 1+ Urine Mucus 0 SEEN Discharge Plan Triage Chief Complaint: Complaint ED Provider: Rehan Sanders Dx/Rx/DC Orders Instructions: ED Cystitis Female Adult Prescriptions: New nitrofurantoin monohyd/m-cryst [Macrobid] 100 mg capsule 100 mg PO Q12H 5 Days Qty: 10 0RF Rx Instructions: must administer with a meal/food nitrofurantoin monohyd/m-cryst [Macrobid] 100 mg capsule 100 mg PO Q12H 5 Days Qty: 10 0RF Rx Instructions: must administer with a meal/food Discontinued nitrofurantoin monohyd/m-cryst 100 mg capsule 1 cap PO Q12H 7 Days Qty: 14 0RF Rx Instructions: administer with a meal/food; swallow whole; do not open, crush, dissolve , or chew No Action CBD Oil topical ibuprofen 600 mg tablet 600 mg PO Q8H PRN doxycycline hyclate 100 mg capsule 100 mg PO BID 7 Days Qty: 14 0RF Referrals: Fatoumata Franklin MD [Med Staff - Active Staff] - 3-5 Days if not improving Disposition Disposition: Home, Self Care
[2023-03-09 19:20] LABS: Bacteria 1+ /hpf (None Seen); Red Blood Cells-Urine 10-25 SEEN /hpf (0-5); White Blood Cells >100 SEEN /hpf (0-5)
[2023-03-09 19:45] VITALS: BP 122/69; PULSE 90; RESP 18; O2SAT 98
== END 2023-03-09 20:02 | disposition home or self-care (01) ==
PROVIDERS: Emergency Provider Student in an Organized Health Care Education/Training Program; Visit Provider Student in an Organized Health Care Education/Training Program
DX: N39.0 Urinary tract infection, site not specified (principal); R31.9 Hematuria, unspecified; R30.0 Dysuria
CPT/HCPCS: 81001; 99282

== ENCOUNTER → 2023-03-09 | Outpatient (CLI) | payer BC, SELFPAY | END | disposition home or self-care (01) | LOC: LABSPEC 03-12 10:22 | PROVIDERS: Referring Provider Physician Assistant Surgical; Visit Provider Physician Assistant Surgical | DX: R30.0 Dysuria (principal) | CPT/HCPCS: 87086; 87088 ==

== ENCOUNTER 2023-03-18 16:22 | Emergency (ER) | payer BC, SELFPAY ==
[2023-03-18 16:24] VITALS: BP 124/85; PULSE 100; RESP 18; TEMP 36.5; O2SAT 100; BMI 42.3
--- NOTE | 2023-03-18 17:05 | ED.VIS.CHEST ---
HPI History of Present Illness Chief Complaint: Chest Other Detail of Chief Complaint: Right-sided chest pain over the region of the right middle lobe Informant: patient Onset/Context/Timing Onset: Today Activity at onset: sudden and other (With coughing) Timing: Intermittent Quality: Positive for Burning Location: Right Parasternal Current Severity: Depends if patient is coughing or not Maximum Severity: Moderate Worsened By: Coughing Relieved By: Nothing Associated Symptoms: Negative for Nausea, Vomiting, Diaphoresis, Dyspnea, Cough, Fever, Lightheadedness, Acid Reflux or Palpitations Narrative Narrative: Patient is a 22-year-old female who was seen on February 24. She was diagnosed with a right middle lobe infiltrate. Patient was treated with doxycycline. Patient presents today because of persistent cough and now having a burning sensation over the right anterior chest with coughing. She denies sputum production or hemoptysis. She still complains of mild congestion. She denies fever. She denies headache, visual, ocular auditory symptoms. There is no history of trauma. She denies history of VTE. She has no risk factors for VTE. She denies GI symptoms. Specifically she denies intolerance to greasy or fried foods. Prior Similar Symptoms: Yes Recent Illness/Hospitalization: Yes CVD Risk Factors: Negative for Hypertension, Diabetes, Hypercholesterolemia, Family History 1' </=55 or Smoking PE Risk Factors: Negative for Recent Travel/Surgery, Recent Immobilization, Prior DVT or PE or Cancer TAD Risk Factors: Negative for Marfan's Syndrome, Hypertension or Family History [facility] Medical History Anxiety Contusion of left knee Left ankle sprain Sprain of left foot Home Medications CBD Oil topical 01/18/23 [History Last Taken Unknown] ibuprofen 600 mg tablet 600 mg PO Q8H PRN pain 01/18/23 [History Last Taken Unknown] naproxen 500 mg tablet 500 mg PO BID #14 tabs 03/18/23 [Rx Last Taken Unknown] Allergy/AdvReac Type Severity Reaction Status Date / Time amoxicillin Allergy Upset Verified 03/18/23 16:23 Stomach erythromycin base Allergy Upset Verified 03/18/23 16:23 Stomach Penicillins [PCN] Allergy Upset Verified 03/18/23 16:23 Stomach trazodone AdvReac Unknown suicidal Verified 03/18/23 16:23 ideation Social History (Updated 03/18/23 @ 17:[address] Shawn Barrett MD) Smoking Status: Never smoker substance use type: does not use ROS ROS ED Constitutional Constitutional ED: Denies chills, fever(s), subjective or sweats Eyes Eyes: Reports none ENT ENT ED: Reports rhinorrhea and sore throat; Denies ear pain Cardiovascular Cardiovascular: Reports as per HPI; Denies orthopnea or paroxysmal nocturnal dyspnea Respiratory/Chest Respiratory/Chest: Reports cough; Denies dyspnea, dyspnea on exertion, orthopnea or paroxysmal nocturnal dyspnea Gastrointestinal Gastrointestinal: Denies abdominal pain, nausea or vomiting Musculoskeletal Musculoskeletal: Denies arthralgias or myalgias Hematologic/Lymphatic Hematologic/Lymphatic: Denies easy bleeding or easy bruising EXAM Physical Exam Const Vital Signs: 03/18/23 16:24 03/18/23 16:35 Temperature 97.7 F L Temperature Source Temporal Pulse Rate 100 Respiratory Rate 18 Respiratory Pattern Normal Blood Pressure 124/85 H Blood Pressure Mean 98 Pulse Ox 100 Oxygen Delivery Method Room Air Positive well nourished and well developed General Appearance ED: well developed and NAD; Negative for pallor HEENT Reports TM's clear and moist mucous membranes HEENT Narrative: Posterior pharynx is normal. normocephalic and atraumatic Tympanic Membrane ED: Yes TM's clear Eyes PERRL and EOMs intact bilaterally General Eye ED: Negative for pale conjunctiva or scleral icterus Neck no lymphadenopathy, supple and no JVD Chest Wall inspection of chest normal and palpation of chest normal Resp normal respiratory effort and clear to auscultation bilaterally Cardio regular rate, regular rhythm, S1 normal heart sound, S2 normal heart sound and no murmurs GI normal to inspection, nondistended, normoactive bowel sounds, soft to palpation, non-tender and non-distended; Negative for hepatosplenomegaly Extremity Extremity Narrative: There is no asymmetry, swelling, discoloration, leg vein distention, palpable cords or tenderness along the distribution of the deep venous system. Neuro oriented x3 and CN's II-XII intact bilaterally Sensorium / Orientation: awake and alert Psych mental status grossly normal Skin no rashes or lesions noted and no wounds General Skin Exam: Negative for jaundice or pallor MDM MDM MDM Narrative Medical decision making narrative: Will obtain chest x-ray to determine if there is evidence of a pneumothorax or persistent pneumonia. This most likely represents pleurisy due to her recent diagnosis of pneumonia. Patient's vital signs are unremarkable. She is not hypoxic. Radiography Chest X-Ray - ED: 2 View and Read by ED Physician (2 view chest x-ray independent reviewed interpreted by me as negative. There is no infiltrate. Suspect patient has pleuritic chest pain. We will treat as such. Cardiac silhouette and size normal. Lung parenchyma normal. Osseous structures are unremarkable.) Diagnostic Testing: Clinical Impression(s) from Imaging Studies Chest X-Ray 03/18/23 17:26 IMPRESSION: Nonacute x-ray examination of the chest. Electronically Signed: Milton Britton MD (Brooks) at 17:46 EDT Reading Location ID and State: [facility] / [place] , Service support , Discharge Plan Triage Chief Complaint: Chest Other Other Complaint: Cold Sx ED Provider: Shawn Barrett Dx/Rx/DC Orders Clinical Impression: Pleuritic chest pain, Upper respiratory infection with cough and congestion Instructions: ED Pleurisy Prescriptions: New naproxen 500 mg tablet 500 mg PO BID Qty: 14 0RF No Action CBD Oil topical ibuprofen 600 mg tablet 600 mg PO Q8H PRN (Reason: pain) Primary Care Provider: Evelyne Cruz NP Referrals: Evelyen Cruz NP, CLINICAL PARTNER-C [Primary Care Provider] - 1 Week if not improving Disposition Disposition: Home, Self Care
--- NOTE | 2023-03-18 17:26 | RAD_ITS ---
STUDY: X-RAY CHEST REASON FOR EXAM: Female, 22 years old. Cough, right-sided chest pain TECHNIQUE: PA and lateral views of the chest. COMPARISON: None. FINDINGS: The lungs are clear and expanded. There is no demonstrated pleural abnormality. Normal size heart. Normal mediastinum and jhony. Normal visualized pulmonary arteries. Normal visualized aortic arch and descending thoracic aorta. Normal visualized thoracic spine. Normal visualized ribs, clavicles, and shoulders. Cholecystectomy. RAD/Chest PA and Lateral IMPRESSION: Nonacute x-ray examination of the chest. Electronically Signed: Milton Britton MD (Brooks) at 17:46 EDT ,
== END 2023-03-18 18:22 | disposition home or self-care (01) ==
PROVIDERS: Emergency Provider Emergency Medicine; PCP Registered Nurse; Visit Provider Emergency Medicine
DX: J06.9 Acute upper respiratory infection, unspecified (principal); R07.81 Pleurodynia
CPT/HCPCS: 71046; 99283

== ENCOUNTER → 2023-09-05 | Outpatient (CLI) | payer MEDICAID, SELFPAY ==
--- NOTE | 2023-09-05 15:20 | CYST_PTH ---
PATIENT: MATT DRUMMOND LOC: [facility] U#:[id number] AGE/SX: ROOM: RE09/05/[address]: Dr. López Hernandez MD : 2000 BED: DIS: 09/05/2023 SPEC #: [id number] RECD: 09/05/23 15:20 STATUS: MARY REKira #: [id number] EDMOND: 09/05/23 15:[address]: López Hernandez DEPT: SURGICAL PATHOLOGY RECD BY: Oksana Hodges ENTERED: 09/06/23 10:14 SP TYPE: Cyst OTHR DR: Evelyne Cruz, SPECIAL MACHINE STITCHER-C [facility] Tissues: CYST Procedures: Surgery Specimen Level III HEADER OPERATION: Left ring excisional biopsy cyst PRE-OP DIAGNOSIS: Left ring finger mass TISSUE SUBMITTED: Left ring finger MICROSCOPIC DIAGNOSIS Left finger mass, excision: Benign fibrous proliferation, most consistent with fibromatosis. See comment. SJ/mr 09/07/2023 COMMENT Clinical correlation and appropriate follow up are necessary. Case has been reviewed in consultation with Dr. Steven who concurs with the above diagnosis. IDC:AM MICROSCOPIC DESCRIPTION Slides are reviewed. GROSS DESCRIPTION Received in fixative is one container labeled with the patient's name and designated Soft tissue mass left ring finger. The specimen consists of a piece of chester indurated tissue measuring 0.6 x 0.6 x 0.4cm. The specimen is bisected and submitted entirely in one cassette. GET/ 09/06/2023 TC:5 CPT: 28482
== END | disposition home or self-care (01) ==
LOC: LABSPEC 15:12
PROVIDERS: PCP Registered Nurse; Referring Provider Orthopaedic Surgery; Visit Provider Orthopaedic Surgery
DX: L98.8 Other specified disorders of the skin and subcutaneous tissue (principal)
CPT/HCPCS: 88304

== ENCOUNTER 2023-09-21 16:32 | Emergency (ER) | payer MEDICAID, SELFPAY ==
[2023-09-21 16:34] VITALS: BP 133/78; PULSE 100; RESP 18; TEMP 36.4; O2SAT 99; BMI 41.5
--- NOTE | 2023-09-21 16:46 | ED.VIS.GI ---
HPI HPI - GI History of Present Illness Chief Complaint: Abd Pain Informant: patient Abdominal Pain/Flank Pain Onset: Yesterday Context: Gradual Onset Timing: Continuous Quality: Aching and - (Spasming) Location: Epigastric, LUQ and LLQ (Today) Current Severity: Moderate Maximum Severity: Moderate Worsened by: Movement Nausea/Vomiting/Emesis GI Symptom: Negative for Nausea or Vomiting Diarrhea/Melena/Hematochezia GI Symptom: Positive for Diarrhea (Chronic, unchanged); Negative for Melena or Hematochezia Associated Symptoms Associated Symptoms: Negative for Dysuria, Frequency, Hematuria or Urgency Narrative Narrative: 23-year-old female with chronic diarrhea, she had an EGD a week ago because of this, she states it was at [facility] as an outpatient and she had 4 different areas biopsied including her esophagus and stomach, test for celiac disease, H. pylori, none of that is back. She states she started getting this pain yesterday and today. Not associated with meals which does not change it. Hurts more to move. Feels like spasming. She is wondering if it is a sore muscle but she has no reason to have that although she states she was bending over a lot last couple days to do seeding in her garden. Denies any melena or bright red blood per rectum. [facility] Medical History Anxiety Contact with or exposure to other viral diseases Contusion of left knee Left ankle sprain Sprain of left foot Strain of Achilles tendon URI (upper respiratory infection) Home Medications CBD Oil topical 01/18/23 [History Last Taken Unknown] ibuprofen 600 mg tablet 600 mg PO Q8H PRN pain 01/18/23 [History Last Taken Unknown] naproxen 500 mg tablet 500 mg PO BID #14 tabs 03/18/23 [Rx Last Taken Unknown] benzonatate 200 mg capsule 200 mg PO TID PRN cough #20 caps 03/19/23 [Rx Last Taken Unknown] methylprednisolone 4 mg tablets in a dose pack (Medrol (Ramana)) See Rx Instructions PO PER PKG DIR #21 tabs 03/19/23 [Rx Last Taken Unknown] Allergy/AdvReac Type Severity Reaction Status Date / Time amoxicillin Allergy Upset Verified 09/21/23 16:33 Stomach erythromycin base Allergy Upset Verified 09/21/23 16:33 Stomach Penicillins [PCN] Allergy Upset Verified 09/21/23 16:33 Stomach trazodone AdvReac Unknown suicidal Verified 09/21/23 16:33 ideation Social History Smoking Status: Never smoker substance use type: does not use ROS ROS ED Constitutional Constitutional ED: Denies chills or fever(s) Eyes Eyes: Denies change in vision or diplopia ENT ENT ED: Denies rhinorrhea or sore throat Cardiovascular Cardiovascular: Denies chest pain or palpitations Respiratory/Chest Respiratory/Chest: Denies cough or dyspnea Gastrointestinal Gastrointestinal: Reports abdominal pain and diarrhea; Denies nausea or vomiting Genitourinary Genitourinary ED: Denies dysuria or hematuria Musculoskeletal Musculoskeletal: Denies back pain or neck pain Integumentary Denies abscess or rash Neurologic Neurologic: Denies headache(s), paresthesias or weakness Psychiatric Psychiatric: Denies depression or suicidal thoughts EXAM Physical Exam Const Vital Signs: 09/21/23 16:34 09/21/23 18:33 Temperature 97.6 F L Temperature Source Temporal Pulse Rate 100 81 Respiratory Rate 18 16 Blood Pressure 133/78 H 121/64 H Blood Pressure Mean 96 83 Pulse Ox 99 99 Oxygen Delivery Method Room Air Room Air Positive well nourished, well developed and obese General Appearance ED: well developed and NAD Nutritional Appearance: obese HEENT Reports moist mucous membranes normocephalic and atraumatic Eyes PERRL and EOMs intact bilaterally Neck full ROM and supple Resp normal respiratory effort and clear to auscultation bilaterally Cardio regular rate, regular rhythm and no murmurs GI non-distended GI Narrative: Mild tenderness without guarding or rebound epigastrium, left upper quadrant and throughout the left side down to the left lower quadrant. No other areas of tenderness. Auscultation: normoactive bowel sounds Palpation: soft Back/Spine no CVA tenderness General Back: other FROM Extremity normal to inspection General Extremety ED: Negative for edema, pulses abnormal or tenderness General Extremity: Negative for edema or pulses abnormal Neuro oriented x3, CN's II-XII intact bilaterally and no sensory deficits noted Sensorium / Orientation: awake and alert Motor Exam: strength 5/5 throughout Skin no rashes or lesions noted and no wounds MDM MDM MDM Narrative Medical decision making narrative: Although this patient has abdominal pain she does not have any other GI symptoms that are new with that. I did some basic labs that are normal, her white blood count is in the normal range at 8.5 and there is no shift. Her liver enzymes and lipase are normal as well as her which is negative, ruling out ectopic . Restarted given her GI cocktail and dicyclomine, but it did not help at all. We then gave her an injection of Toradol. This really helped. She thinks it feels more muscular now and I agree. I do not think she needs a CT although we discussed it, we considered it, but for these reasons I do not think she needs it right now. I think diverticulitis much less likely an issue here and she is in agreement. We discussed reasons to return she comfortable with supportive care at home. Lab Data Attestation: I reviewed the patient's lab results. Labs: Laboratory Results - last 24 hr 09/21/23 16:59 WBC 8.5 RBC 4.13 L Hgb 11.8 L Hct 37.2 MCV 90.1 MCH 28.6 MCHC 31.7 L RDW Std Deviation 39.7 RDW Coeff of [place] 12.2 Plt Count 295 MPV 10.4 Immature Gran % (Auto) 0.100 Neut % (Auto) 54.8 Lymph % (Auto) 36.0 [place] % (Auto) 7.3 Eos % (Auto) 1.3 Baso % (Auto) 0.5 Absolute Neuts (auto) 4.7 Absolute Lymphs (auto) 3.06 Nucleated RBC % 0 Sodium 141 Potassium 3.7 Chloride 108 H Carbon Dioxide 27.0 Anion Gap 6 BUN 16 Creatinine 0.71 Estim Creat Clear Calc 142.74 Est GFR (MDRD) Af Amer 129 Est GFR (MDRD) Non-Af 107 BUN/Creatinine Ratio 22.4 H Glucose 117 H Calcium 9.0 Total Bilirubin 0.10 L AST 16 ALT 21 Alkaline Phosphatase 77 Total Protein 7.1 Albumin 3.4 Globulin 3.7 Albumin/Globulin Ratio 0.9 Lipase 29 Serum , Qual NEGATIVE Discharge Plan Triage Chief Complaint: Abd Pain ED Provider: Shahzad Dsouza Dx/Rx/DC Orders Clinical Impression: Abdominal muscle strain Instructions: Self-Care for Strains and Sprains Prescriptions: No Action CBD Oil topical ibuprofen 600 mg tablet 600 mg PO Q8H PRN (Reason: pain) methylprednisolone [Medrol (Ramana)] 4 mg tablets,dose pack See Rx Instructions PO PER PKG DIR Qty: 21 0RF Rx Instructions: PO PER PKG DIR benzonatate 200 mg capsule 200 mg PO TID PRN (Reason: cough) Qty: 20 0RF naproxen 500 mg tablet 500 mg PO BID Qty: 14 0RF Primary Care Provider: Care Physician,No Primary Referrals: Evelyne Cruz LITHOGRAPHY CONTACT WORKER, LITHOGRAPHY CONTACT WORKER-C [Non-Staff] - 1 Week if not improving Disposition Disposition: Home, Self Care
[2023-09-21] MEDS: Dicyclomine 10 MG Capsule 20 MG PO (16:53)
[2023-09-21] MEDS: Mag Hydrox/Al Hydrox/Simeth 30 ML UDC PO (16:54)
[2023-09-21 17:03] LABS: Absolute Lymphocyte Count 3.06 X10^3/uL (0.83-4.51); Absolute Neutrophil Count 4.7 X10^3/uL (2.0-7.7); Basophil# 0.04 X10^3/uL; Basophil% 0.5 % (0-1); Eosinophil# 0.11 X10^3/uL; Eosinophils% 1.3 % (0-5); Hematocrit 37.2 % (37-47); Hemoglobin 11.8 g/dL (12.0-15.0); Lymphocyte # 3.06 X10^3/ul (0.83-4.51); Mean Corp Hgb Conc 31.7 g/dL (32-36); Mean Corpuscular Hgb 28.6 pg (27.0-32.0); Mean Corpuscular Volume 90.1 fL (81-99); Mean Platelet Vol. 10.4 fl (6.2-12.0); Monocyte# 0.62 X10^3/uL; Monocyte% 7.3 % (0-10); NRBC Flagged by Analyzer 0 % (0-5); Neutrophil # 4.67 X10^3/uL (2.7-7.7); Neutrophil % 54.8 % (47-70); Platelet Count 295 K/mm3 (150-450); RBC Distribution Width CV 12.2 % (11.6-14.6); RBC Distribution Width SD 39.7 fl (35.1-43.9); Red Blood Count 4.13 M/mm3 (4.2-5.4); White Blood Count 8.5 K/mm3 (4.4-11.0)
[2023-09-21 17:21] LABS: Internal QC Validated? YES +Cl - CLEAR BKGD; Pregnancy, Serum, hCG Quali. NEGATIVE Negative
[2023-09-21 17:22] LABS: ALB/GLOB Ratio 0.9 RATIO (0.9-2.4); AST(SGOT) 16 U/L (15-37); Alanine Aminotransfer ALT/SGPT 21 U/L (13-56); Albumin, Serum 3.4 g/dL (3.2-5.0); Alkaline Phosphatase 77 U/L (45-117); Anion Gap 6 (5-15); BUN 16 mg/dL (7-18); BUN/Creat Ratio 22.4 RATIO (10-20); Chloride 108 mmol/L (98-107); Creatinine, Serum 0.71 mg/dL (0.55-1.02); EST Glomerular Filtration Rate 107 mL/min (>60); Est Glom Filt Rate - Afr Amer 129 mL/min (>60); Estimated Creatinine Clearance 142.74 ml/min; Globulin 3.7 g/dL (2.2-4.2); Glucose 117 mg/dL (74-106); Lipase 29 U/L (13-75); Potassium 3.7 mmol/L (3.5-5.1); Protein, Total 7.1 g/dL (6.4-8.2); Sodium Level 141 mmol/L (136-145)
[2023-09-21] MEDS: Ketorolac 60 MG/2 ML Vial IM (18:19)
[2023-09-21 18:33] VITALS: BP 121/64; PULSE 81; RESP 16; O2SAT 99
[2023-09-21 19:18] VITALS: BP 122/72; PULSE 61; RESP 16; TEMP 36.7; O2SAT 99
== END 2023-09-21 19:19 | disposition home or self-care (01) ==
PROVIDERS: Emergency Provider Emergency Medicine; Visit Provider Emergency Medicine
DX: S39.011A Strain of muscle, fascia and tendon of abdomen, initial encounter (principal); K52.9 Noninfective gastroenteritis and colitis, unspecified; E66.9 Obesity, unspecified; X58.XXXA Exposure to other specified factors, initial encounter
CPT/HCPCS: 80053; 83690; 84703; 85025; 96372; 99283

== ENCOUNTER → 2023-11-26 | Outpatient (CLI) | payer MEDICAID, SELFPAY ==
--- NOTE | 2023-11-26 11:12 | MRI_ITS ---
EXAM: MR LEFT LOWER EXTREMITY WITHOUT INTRAVENOUS CONTRAST, KNEE CLINICAL INDICATION: pain, rule out meniscus or other problems TECHNIQUE: Multiplanar and multisequence MR images of the left knee without intravenous contrast. COMPARISON: December 09, 2023 exam FINDINGS: BONES/JOINTS: Unremarkable. No fracture. No abnormal bone marrow signal. No synovial hypertrophy. No intra-articular body. EXTENSOR MECHANISM: Unremarkable. MEDIAL MENISCUS: Unremarkable. LATERAL MENISCUS: Unremarkable. MEDIAL CAPSULE/SUPPORTING STRUCTURES: Unremarkable. Intact. LATERAL CAPSULE/SUPPORTING STRUCTURES: Unremarkable. Lateral collateral ligamentous complex, inclusive of the popliteal tendon, are intact. ANTERIOR CRUCIATE LIGAMENT: Unremarkable. Intact. POSTERIOR CRUCIATE LIGAMENT: Unremarkable. Intact. MUSCLES: Unremarkable. CARTILAGE: Unremarkable. Intact. FLUID: Unremarkable. No joint effusion. OTHER SOFT TISSUES: Unremarkable. No popliteal cyst. MRI/Lower Ext Joint Only (Routine) IMPRESSION: Normal left knee MRI. Electronically Signed: Haim Dey MD at 22:28 EDT ,
== END | disposition home or self-care (01) ==
LOC: MRI 13:30
PROVIDERS: Referring Provider Orthopaedic Surgery Sports Medicine; Visit Provider Orthopaedic Surgery Sports Medicine
DX: M25.562 Pain in left knee (principal)
CPT/HCPCS: 73721

== ENCOUNTER → 2023-12-19 | Outpatient (CLI) | payer MEDICAID, SELFPAY ==
--- NOTE | 2023-12-19 16:05 | RAD_ITS ---
EXAM: XR RIGHT WRIST COMPLETE, 3 OR MORE VIEWS CLINICAL INDICATION: wrist strain TECHNIQUE: Frontal, lateral and oblique views of the right wrist. COMPARISON: No relevant prior studies available. FINDINGS: BONES/JOINTS: No acute abnormality. SOFT TISSUES: Normal. No soft tissue swelling or gas. No radiopaque foreign body. RAD/Wrist min 3 Views IMPRESSION: Intact right wrist. Electronically Signed: Toby Morlaes MD at 16:25 EDT ,
== END | disposition home or self-care (01) ==
LOC: MTRAD 16:01
PROVIDERS: Referring Provider Physician Assistant; Visit Provider Physician Assistant
DX: S66.911A Strain of unspecified muscle, fascia and tendon at wrist and hand level, right hand, initial encounter (principal); X58.XXXA Exposure to other specified factors, initial encounter
CPT/HCPCS: 73110

== ENCOUNTER 2024-04-22 17:00 | Outpatient (RCR) | payer MEDICAID, SELFPAY ==
--- NOTE | 2023-10-22 18:29 | HP.PTEVAL ---
Patient's Visit Information Visit Information Visit Information: MATT DRUMMOND is a 23 year old F referred to Physical Therapy by AMAYA TRISTAN with a diagnosis of Knee Pain and Hip Pain. Date of Evaluation: 10/22/23 Physical Therapist: Sandi Barnard DPT Visit Plan Frequency: 2x /Week Duration: 4 Weeks Plan: Focus on LE and core strength/stabilization HEP Given IE: quad set, glut set, TA contraction Subjective Subjective: Patient reports that she went to the MD for something else- and they saw that her left knee cap was moving around and it does not bend around and is painful when she stands on it all day at work. It russ and it makes her feel like she is going to fall down. She has not had any scans and he sent her to PT. She also has hip issues mostly from trauma they pop in/out- she is not seeing the chiro anymore and its not helping. Her goals for PT are to be able to stand on her feet for work. 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 Worst: knees: 8/10 hips: 9/10 Agg: standing, bending, squatting. Eases: stretching, ice/heat, pain mediation. Best: 1-2/10. She describes her pain as dull and achy but can be sharp depending on how she is moving or if the hip is out of place. Last summer she had ankle sprain and had PT- its pretty much back to normal. She wears harrison shoes to work. She does have some N/T in her left leg- down to the knees- she does have some in her back at night. Sleep: disturbed- prefers to sleep on her stomach. She is not very active outside of work. PMHx/Meds: see list in chart Objective Objective: Posture: forward head, rounded shoulders- can correct but does not maintain Gait: no deviation noted HR/TR: able with UE A SLS: 5 seconds then requires UE A and reports discomfort on the left. Right: 15 seconds ROM: Lumbar: flexion: hands to ankle, extn: WNL reports pain, SB and rotation: WFL with discomfort. Hip: WFL with pain IR/ER. Knee: right: WFL left: knee: 90 degrees of flexion to 0 degrees of extension. Strength: core: fair minus, Hip: 4-/5 throughout, Knee: Extn: Left: 24 Right: 77 Flexion: Left: 18 Right:27- flexion caused hip pain on the right Flex: HS: moderate, Gastroc: moderate Special Tests R Hip ILIA - Intraarticular Pathology: Positive R Hip FADDIR - Labrum: Positive L Hip ILIA - Intraarticular Pathology: Negative L Hip FADDIR - Labrum: Negative Balance/Special Test Scores Lower Extremity Functional Score: 41 Goals Goal 1:: Patient will be I with HEP and progression Goal Time Frame: 4-6 Weeks Goal 2:: Patient will SLS for 15 seconds bilateral without LOB Goal Time Frame: 4-6 Weeks Goal 3:: Patient will maintain proper posture t/o tx session to demo increased core s/s Goal Time Frame: 4-6 Weeks Goal 4:: Patient will report 80% improvement Goal Time Frame: 4-6 Weeks Rehabilitation Potential Physical Therapy Diagnosis: Patient presents with hypomobility- she has decreased LE and core strength/stabilization, flex, ROM, proprioception and muscular endurance leading to increased pain with ADL's. Rehabilitation Potential: Fair Anticipated Interventions Patient/Client Instruction: Educate patient on: Benefits of Fitness Program Therapeutic Exercise to Include: Strength training, Endurance training, Balance training, Agility training, Body mechanics, Postural training, Flexibilty training, Gait and locomotor training, Neuromotor development, Dynamic Lumbar Stabilization and Scapular Strength/Stabilization TENS: Yes Cryotherapy (ice pack, ice massage): Yes Thermo therapy (hot pack): Yes Text: Thank you for the opportunity to evaluate your patient. For Medicare and Medicare HMO plans, please review the plan of care and approve it. It will need to be FAXED BACK to us at [phone] for Medicare purposes. For Medicare only, by signing this I certify the plan of care. Please let me know if there are questions or concerns regarding this plan of care. Physician Signature: Date:
--- NOTE | 2023-11-26 11:24 | HP.PTREVAL ---
Re-Evaluation Intro: AMAYA TRISTAN, It has been my pleasure to treat MATT DRUMMOND over the last 10 visits for Knee Pain and Hip Pain. Please see the progress note below for an update on the physical therapy plan of care! Subjective Subjective: Patient reports that since switching to focus on extension back exercises its been going better. She is not painfree and it does flare up at time but does feel that we are headed in the right direction. She feels that she is coming in with less pain and on the daily is less and she feels that she is able to a little more functional and mobile. She does not feel that her knee has really changed at all- its still doing its all of same things as we have been more focus on her back as that has more life changes like sleeping. Objective Objective/Function: Posture: forward head, rounded shoulders- can correct but does not maintain Gait: no deviation noted HR/TR: able with UE A SLS: 10 seconds then requires UE A and reports discomfort and instability on the left. Right: 15 seconds no LOB ROM: Lumbar: flexion: hands to knees with pain, extn: WNL reports feels good, SB and rotation: WFL with discomfort with SB to the left. Hip: WFL with pain IR/ER. Knee: WFL Strength: core: fair minus, Hip: 4/5 throughout, Knee: Left: 4/5 throughout Right: 4+/5 Ankle: 5/5 Flex: HS: moderate, Gastroc: moderate Special Tests R Hip ILIA - Intraarticular Pathology: Positive R Hip FADDIR - Labrum: Positive L Hip ILIA - Intraarticular Pathology: Negative L Hip FADDIR - Labrum: Negative Extn: decreases s/s Plan Plan Plan: 11/26/23: Continue with 2x a week for 6 weeks- core s/s with extn base as tolerated- increase to 60 min session to add in LE strength exercises Focus on LE and core strength/stabilization Balance/Gait/Functional tests Balance/Special Test Scores Lower Extremity Functional Score: 23 Goals Goals Goal 1:: Patient will be I with HEP and progression Goal Time Frame: 4-6 Weeks Goal Progress: Progressing Goal 2:: Patient will SLS for 15 seconds bilateral without LOB Goal Time Frame: 4-6 Weeks Goal Progress: Progressing Goal 3:: Patient will maintain proper posture t/o tx session to demo increased core s/s Goal Time Frame: 4-6 Weeks Goal Progress: Progressing Goal 4:: Patient will report 80% improvement Goal Time Frame: 4-6 Weeks Goal Progress: Progressing Anticipated Interventions Anticipated Interventions Patient/Client Instruction: Educate patient on: Benefits of Fitness Program Therapeutic Exercise to Include: Strength training, Endurance training, Balance training, Agility training, Body mechanics, Postural training, Flexibilty training, Gait and locomotor training, Neuromotor development, Dynamic Lumbar Stabilization and Scapular Strength/Stabilization TENS: Yes Cryotherapy (ice pack, ice massage): Yes Thermo therapy (hot pack): Yes Re-Evaluation Ending Re-evaluation ending: Please do not hesitate to contact me at [phone] by phone or if you have questions or concerns regarding this new plan of care! Sincerely, Sandi Barnard DPT
--- NOTE | 2023-12-27 14:02 | HP.PTREVAL ---
Re-Evaluation Intro: AMAYA TRISTAN, It has been my pleasure to treat MATT DRUMMOND over the last 20 visits for Knee Pain and Hip Pain. Please see the progress note below for an update on the physical therapy plan of care! Subjective Subjective: She is being having issues with blood clot issues- has been cleared to do PT. She feels that PT sessions for an hour are too long- 30 min are better. core is helping but back injections did not help. She goes to [place] this next month. Objective Objective/Function: Posture: forward head, rounded shoulders- can correct with verbal cues Gait: no deviation noted ROM: Lumbar: flexion: hands to mid curtis, Extn: WNL without pain, SB/Rot: WNL with mild discomfort Strength: Core: fair, Hip: 4/5 throughout, Knee: 4+/5, Ankle: 5/5 Flex: HS: mild, Gastroc: mild Plan Plan Plan: 12/27/23: Continue 2x a week for 4 weeks. Discharge all current exercises to HEP and progress to new more challenging exercises- if pt can't tolerate new exercises then d/c to current program. 11/26/23: Continue with 2x/week for 6 weeks- core s/s with ext-bias as joshua - increase to 60 min session to add in LE strength exercises. Focus on LE and core strength/stabilization. Balance/Gait/Functional tests Balance/Special Test Scores Oswestry Low Back Score: 19 Lower Extremity Functional Score: 23 Goals Goals Goal 1:: Patient will be I with HEP and progression Goal Time Frame: 4-6 Weeks Goal Progress: Progressing Goal 2:: Patient will SLS for 15 seconds bilateral without LOB Goal Time Frame: 4-6 Weeks Goal Progress: Progressing Goal 3:: Patient will maintain proper posture t/o tx session to demo increased core s/s Goal Time Frame: 4-6 Weeks Goal Progress: Progressing Goal 4:: Patient will report 80% improvement Goal Time Frame: 4-6 Weeks Goal Progress: Progressing Anticipated Interventions Anticipated Interventions Patient/Client Instruction: Educate patient on: Benefits of Fitness Program Therapeutic Exercise to Include: Strength training, Endurance training, Balance training, Agility training, Body mechanics, Postural training, Flexibilty training, Gait and locomotor training, Neuromotor development, Dynamic Lumbar Stabilization and Scapular Strength/Stabilization TENS: Yes Cryotherapy (ice pack, ice massage): Yes Thermo therapy (hot pack): Yes Re-Evaluation Ending Re-evaluation ending: Please do not hesitate to contact me at [phone] by phone or if you have questions or concerns regarding this new plan of care! Sincerely, MARYJO OropezaT
--- NOTE | 2024-02-20 09:54 | HP.PTREVAL_ITS ---
Re-Evaluation Intro: AMAYA TRISTAN, It has been my pleasure to treat MATT DRUMMOND over the last 30 visits for Knee Pain and Hip Pain. Please see the progress note below for an update on the physical therapy plan of care! Subjective Subjective: Pt reports she feels like she has made improvements, but keeps having set backs secondary to health issues. Objective Objective/Function: LBP 7/10 pain this date. SLS: Pt is only able to stand on L LE for 5 seconds until LOB Gait: Pt is able to ambulate 340 feet until needing to stop secondary to knee and LBP Pt is still limited with LBP and L knee pain with all weightbearing activity. Plan Plan Plan: 02/20/24- Continue to progress core strengthening ex's at this time. Add L SL stance and balance activity as well 12/27/23: Continue 2x a week for 4 weeks. Discharge all current exercises to HEP and progress to new more challenging exercises- if pt can't tolerate new exercises then d/c to current program. 11/26/23: Continue with 2x/week for 6 weeks- core s/s with ext-bias as joshua - increase to 60 min session to add in LE strength exercises. Focus on LE and core strength/stabilization. Pt will watch how her left arm feels later today. Balance/Gait/Functional tests Balance/Special Test Scores Oswestry Low Back Score: 19 Lower Extremity Functional Score: 24 Goals Goals Goal 1:: Patient will be I with HEP and progression Goal Time Frame: 4-6 Weeks Goal Progress: Goal Met Goal 2:: Patient will SLS for 15 seconds bilateral without LOB Goal Time Frame: 4-6 Weeks Goal Progress: Progressing Goal 3:: Patient will maintain proper posture t/o tx session to demo increased core s/s Goal Time Frame: 4-6 Weeks Goal Progress: Not observed Goal 4:: Patient will report 80% improvement Goal Time Frame: 4-6 Weeks Goal Progress: Progressing Goal 5:: Decrease LBP x 50% to aid with sleep Goal Progress: New goal Goal 6:: Pt will be able to ambulate 1000 feet without needing to stop secondary to pain Goal Progress: New goal Anticipated Interventions Anticipated Interventions Patient/Client Instruction: Educate patient on: Benefits of Fitness Program Therapeutic Exercise to Include: Strength training, Endurance training, Balance training, Agility training, Body mechanics, Postural training, Flexibilty training, Gait and locomotor training, Neuromotor development, Dynamic Lumbar Stabilization and Scapular Strength/Stabilization TENS: Yes Cryotherapy (ice pack, ice massage): Yes Thermo therapy (hot pack): Yes Re-Evaluation Ending Re-evaluation ending: Please do not hesitate to contact me at [phone] by phone or Fax: if you have questions or concerns regarding this new plan of care! Sincerely, Evans Matthews, PT, ATC
--- NOTE | 2024-03-28 15:35 | HP.PTREVAL ---
Re-Evaluation Intro: AMAYA MENAMAHIN, It has been my pleasure to treat MATT DRUMMOND over the last 41 visits for Knee Pain and Hip Pain. Please see the progress note below for an update on the physical therapy plan of care! Subjective Subjective: My knee is still sore. I feel like I need more PT for just the knee Objective Objective/Function: SLS: R LE is greater than 30 sec. L LE only 4 seconds until LOB Gait: Pt is able to ambulate 540 feet until having to rest secondary to L knee pain LBP: 5/10 L knee pain: ranges from 4-5/10 Pt continues to be limited with gait secondary to L knee pain Plan Plan Plan: Attempt to get 8 more visits to focus on L knee strengthening and gait tolerance Balance/Gait/Functional tests Balance/Special Test Scores Oswestry Low Back Score: 19 Lower Extremity Functional Score: 24 Goals Goals Goal 1:: Patient will be I with HEP and progression Goal Time Frame: 4-6 Weeks Goal Progress: Goal Met Goal 2:: Patient will SLS for 15 seconds bilateral without LOB Goal Time Frame: 4-6 Weeks Goal Progress: Progressing Goal 3:: Patient will maintain proper posture t/o tx session to demo increased core s/s Goal Time Frame: 4-6 Weeks Goal Progress: Not observed Goal 4:: Patient will report 80% improvement Goal Time Frame: 4-6 Weeks Goal Progress: Progressing Goal 5:: Decrease LBP x 50% to aid with sleep Goal Progress: Progressing Goal 6:: Pt will be able to ambulate 1000 feet without needing to stop secondary to pain Goal Progress: Progressing Anticipated Interventions Anticipated Interventions Patient/Client Instruction: Educate patient on: Benefits of Fitness Program Therapeutic Exercise to Include: Strength training, Endurance training, Balance training, Agility training, Body mechanics, Postural training, Flexibilty training, Gait and locomotor training, Neuromotor development, Dynamic Lumbar Stabilization and Scapular Strength/Stabilization TENS: Yes Cryotherapy (ice pack, ice massage): Yes Thermo therapy (hot pack): Yes Re-Evaluation Ending Re-evaluation ending: Please do not hesitate to contact me at [phone] by phone or if you have questions or concerns regarding this new plan of care! Sincerely, Evans Matthews, PT, ATC
--- NOTE | 2024-04-09 12:46 | HP.SP.DC_ITS ---
ST Discharge Summary Discharged: Discharge: MATT DRUMMOND is a 23 year old female who presented to [facility] on 02/19/2024 following a dx of dysphagia. Pt attended initial evaluation with goals created to participate in a MBSS to objectively assess swallow function. Pt participated in MBSS with [facility]. Pt provided ST the results following the procedure where her swallow function appeared to be within normal and functional limits. The evaluating therapist did recommend follow up with psychology. At this time, speech therapy intervention is not warranted. Should new or worsening symptoms develop, speech therapy could re-evaluate to determine appropriateness for intervention. Thank martin mas for allowing me to participate in the care of your patient. Will re-evaluate at Pt?s request following script from physician.
== END 2024-04-22 19:00 | disposition home or self-care (01) ==
LOC: PT 17:00
DX: M22.2X1 Patellofemoral disorders, right knee (principal); M22.2X2 Patellofemoral disorders, left knee; M67.959 Unspecified disorder of synovium and tendon, unspecified thigh
CPT/HCPCS: 92610; 97110; 97162; 97530

== ENCOUNTER 2024-05-08 20:21 | Emergency (ER) | payer MEDICAID, SELFPAY ==
[2024-05-08 20:23] VITALS: BP 137/75; PULSE 104; RESP 18; TEMP 36.1; O2SAT 100; BMI 41.1
--- NOTE | 2024-05-08 20:30 | EDS_ITS ---
HPI History of Present Illness Chief Complaint: Upper Extremity Injury [facility] Medical History (Updated 12/19/23 @ 16:59 by Kole DAILEY, PA) Right wrist sprain Left knee pain Strain of Achilles tendon Contact with or exposure to other viral diseases URI (upper respiratory infection) Sprain of left foot Left ankle sprain Contusion of left knee Anxiety Home Medications ?Medication ?Instructions ?Recorded ?Last Taken ?Type CBD Oil topical 01/18/23 Unknown History ibuprofen 600 mg tablet 600 mg PO Q8H PRN pain 01/18/23 Unknown History cholecalciferol (vitamin D3) 1,250 1,250 mcg PO QWEEK 10/05/23 Unknown History mcg (50,000 unit) capsule hydroxyzine HCl 25 mg tablet 12.5 mg PO PRN anxiety 10/05/23 Unknown History sertraline 100 mg tablet 100 mg PO QDAY 10/05/23 Unknown History valacyclovir 500 mg tablet 500 mg PO QDAY 10/05/23 Unknown History etonogestrel 68 mg subdermal 1 implant subdermal ONCE 12/11/23 Unknown History implant (Nexplanon) prednisone 10 mg tablet 10 mg PO DAILY #30 tabs 12/19/23 Unknown Rx Allergy/AdvReac Type Severity Reaction Status Date / Time amoxicillin Allergy Upset Verified 05/08/24 20:23 Stomach erythromycin base Allergy Upset Verified 05/08/24 20:23 Stomach Penicillins (PCN) Allergy Upset Verified 05/08/24 20:23 Stomach trazodone AdvReac Unknown suicidal Verified 05/08/24 20:23 ideation Social History Smoking Status: Never smoker substance use type: does not use EXAM Physical Exam Const Vital Signs: 05/08/24 20:23 Temperature 97 F L Temperature Source Temporal Pulse Rate 104 H Respiratory Rate 18 Blood Pressure 137/75 H Blood Pressure Mean 95 Pulse Ox 100 Oxygen Delivery Method Room Air Discharge Plan Triage Chief Complaint: Upper Extremity Injury ED Provider: Eugenio Muniz Dx/Rx/DC Orders Prescriptions: No Action CBD Oil topical ibuprofen 600 mg tablet 600 mg PO Q8H PRN (Reason: pain) valacyclovir 500 mg tablet 500 mg PO QDAY sertraline 100 mg tablet 100 mg PO QDAY hydroxyzine HCl 25 mg tablet 12.5 mg PO PRN (Reason: anxiety) cholecalciferol (vitamin D3) 1,250 mcg (50,000 unit) capsule 1,250 mcg PO QWEEK Nexplanon 68 mg implant 1 implant subdermal ONCE Rx Instructions: as a single dose prednisone 10 mg tablet 10 mg PO DAILY Qty: 30 0RF Rx Instructions: 4 tablets daily x3 days, then 3 tablets daily x3 days, then 2 tablets daily x3 days, then 1 tablet daily x3 days Primary Care Provider: Evelyne Cruz NP Referrals: Evelyne Cruz NP, [employer] PSYCHOLOGIST[facility] [Primary Care Provider] - Print Language: Citizen Of [place]
--- NOTE | 2024-05-08 20:40 | EX.ED.UPPERE ---
HPI <ORIN Cross - Last Filed: 05/08/24 20:50> History of Present Illness Chief Complaint: Upper Extremity Injury Narrative Narrative: Patient a 23-year-old female with recent history of hysterectomy 1.5 weeks ago, started have pain to her right bicep. Patient is concerned that she might have a DVT. 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 Patient states that the pain is getting worse she says it feels like it is burning, is here for evaluation. She denies any fever chills, chest pain, nausea PFSH <ORIN Cross - Last Filed: 05/08/24 20:50> [facility] Medical History (Updated 05/08/24 @ 20:49 by ORIN Cross) Right wrist sprain Left knee pain Strain of Achilles tendon Contact with or exposure to other viral diseases URI (upper respiratory infection) Sprain of left foot Left ankle sprain Contusion of left knee Anxiety Home Medications ?Medication ?Instructions ?Recorded ?Last Taken ?Type CBD Oil topical 01/18/23 Unknown History ibuprofen 600 mg tablet 600 mg PO Q8H PRN pain 01/18/23 Unknown History cholecalciferol (vitamin D3) 1,250 1,250 mcg PO QWEEK 10/05/23 Unknown History mcg (50,000 unit) capsule hydroxyzine HCl 25 mg tablet 12.5 mg PO PRN anxiety 10/05/23 Unknown History sertraline 100 mg tablet 100 mg PO QDAY 10/05/23 Unknown History valacyclovir 500 mg tablet 500 mg PO QDAY 10/05/23 Unknown History etonogestrel 68 mg subdermal 1 implant subdermal ONCE 12/11/23 Unknown History implant (Nexplanon) prednisone 10 mg tablet 10 mg PO DAILY #30 tabs 12/19/23 Unknown Rx Allergy/AdvReac Type Severity Reaction Status Date / Time amoxicillin Allergy Upset Verified 05/08/24 20:23 Stomach erythromycin base Allergy Upset Verified 05/08/24 20:23 Stomach Penicillins (PCN) Allergy Upset Verified 05/08/24 20:23 Stomach trazodone AdvReac Unknown suicidal Verified 05/08/24 20:23 ideation Social History Smoking Status: Never smoker substance use type: does not use ROS <ORIN Cross - Last Filed: 05/08/24 20:50> ROS ED ROS Narrative Constitutional: Negative for fever, chills, weight loss, weakness Eyes: Negative for vision loss, vision change, double vision ENT: Negative for any sore throat, ear pain, congestion Cardiovascular: Negative for any chest pain, tightness, palpitations Respiratory: Negative for any cough, sputum production, hemoptysis, dyspnea, dyspnea on exertion, orthopnea Gastrointestinal: Negative for any abdominal pain, nausea, vomiting, diarrhea, constipation, blood in stool, blood in vomit : Negative for any urinary frequency, dysuria, retention, blood in urine Muscle skeletal: Negative for any neck pain, back pain. Pain to the right bicep Neurological: Negative for any headache, syncope, dizziness Skin: Negative for any rashes, itching, abrasions, lacerations Psychiatric: Negative for any depression, anxiety, stress, suicidal ideation, homicidal ideation Hematologic: Negative for any excessive bruising, easy bleeding EXAM <ORIN Cross - Last Filed: 05/08/24 20:50> Physical Exam Narrative Exam Narrative: Vital signs reviewed. Extremities: No peripheral edema, no signs of gross trauma or deformity. Active full range of motion of all extremities. Patient has no swelling, there is no significant erythema. Pain is mostly on the anterior bicep. No evidence of tendinitis. No evidence of cellulitis. +2 radial pulse Neuro: Cranial nerves II through XII intact, no focal neurological deficits. Skin: Clean dry and intact with no rash, purpura, petechiae, vesicles or pustules. Backs/flank: No CVA tenderness, no midline spinal tenderness, no deformity. Psych: Normal mood and affect. No SI, HI or acute psychosis. Const Vital Signs: 05/08/24 20:23 Temperature 97 F L Temperature Source Temporal Pulse Rate 104 H Respiratory Rate 18 Blood Pressure 137/75 H Blood Pressure Mean 95 Pulse Ox 100 Oxygen Delivery Method Room Air Positive well nourished and well developed General Appearance ED: well developed MDM <ORIN Cross - Last Filed: 05/08/24 20:50> MDM Treatment and Re-Evaluation Narrative: Differential diagnosis includes however is not limited to: DVT, superficial thrombophlebitis, muscle strain, tendinitis Patient appears to be in no obvious respiratory distress vital signs are stable, nontoxic-appearing. Presenting to the emerged part with complaints of right arm pain. Patient's biggest concern is a DVT of the right arm. 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 Patient is concerned because she also had a surgery 1.5 weeks ago. I have low suspicion for any DVT, patient is neurovascular intact. +2 radial pulse. There is no evidence of any cellulitis or infection. Patient secondary to the time of day will need to follow-up tomorrow to get the venous duplex of the right upper extremity. She is agreeable to this. She instructed return for any worsening symptoms. Stable for discharge. <Dr. Eugenio Muniz MD - Last Filed: 05/08/24 20:59> [facility] Narrative Medical decision making narrative: I have personally performed a face to face assessment of the patient and have reviewed the KENYETTA Note. I performed a substantive portion of the visit including all aspects of the following. My echavarria findings include: History is [23-year-old female recent hysterectomy. Complaining of atraumatic right bicep discomfort. Prior history of superficial thrombophlebitis in that arm in the past. Never been on blood thinners. Taking Tylenol Motrin for hysterectomy discomfort. Denies any swelling to her arm. No fever. No fall or trauma.] Exam is [well-appearing 23-year-old female. Vital signs are stable afebrile. She does not look septic or toxic. No distress. H EENT exam unremarkable. Neck nontender no JVD. Lungs clear to auscultation. Heart regular rhythm. Abdomen soft nondistended normal bowel sounds. No peritoneal signs. Moving all 4 extremities. She has mild tenderness to her right bicep. She has normal flexion extension of the arm. There is no signs of biceps tendon rupture. No discoloration. No redness or warmth. No axillary lymphadenopathy. Normal range of motion to her right shoulder, elbow and wrist. 5 out of 5 electrochemist strength of the hand. Normal sensation. Normal radial pulse. The arm is not swollen. There is no discoloration. There is mild tenderness. No cord. Neurologically she is awake and alert.] Medical Decision Making [23-year-old female history of prior superficial abdominal phlebitis. She had recent surgery should be set up tomorrow for an outpatient noninvasive study of her right upper extremity because they do not do those here at night. She is already on Tylenol Motrin for pain. She does not need any other labs or imaging at this time there is been no trauma.] Other additions or changes: [None] History & Record Review Discussion w/independent historian: Patient and Family Discharge Plan Triage Chief Complaint: Upper Extremity Injury ED Midlevel Provider: Eugene Sheriff ED Provider: Eugenio Muniz Dx/Rx/DC Orders Clinical Impression: Arm pain Instructions: ED Myalgias, ED RICE Prescriptions: No Action CBD Oil topical ibuprofen 600 mg tablet 600 mg PO Q8H PRN (Reason: pain) valacyclovir 500 mg tablet 500 mg PO QDAY sertraline 100 mg tablet 100 mg PO QDAY hydroxyzine HCl 25 mg tablet 12.5 mg PO PRN (Reason: anxiety) cholecalciferol (vitamin D3) 1,250 mcg (50,000 unit) capsule 1,250 mcg PO QWEEK Nexplanon 68 mg implant 1 implant subdermal ONCE Rx Instructions: as a single dose prednisone 10 mg tablet 10 mg PO DAILY Qty: 30 0RF Rx Instructions: 4 tablets daily x3 days, then 3 tablets daily x3 days, then 2 tablets daily x3 days, then 1 tablet daily x3 days Other Ambulatory Orders: Venous Duplex US, Unilateral (Stat) Facility: [facility] - Location: [facility] Ordered By: Eugene Sheriff Primary Care Provider: Evelyne Cruz NP Referrals: Evelyne Cruz NP, LICENSED GUIDE-C [Primary Care Provider] - Activity Restrictions/Additional Instructions: Please follow-up outpatient, follow the instructions. Print Language: Tajik Disposition Disposition: Home, Self Care
== END 2024-05-08 20:58 | disposition home or self-care (01) ==
PROVIDERS: Emergency Provider Emergency Medicine; PCP Registered Nurse; Visit Provider Emergency Medicine
DX: M79.18 Myalgia, other site (principal); F41.9 Anxiety disorder, unspecified; Z88.0 Allergy status to penicillin; Z86.72 Personal history of thrombophlebitis; Z79.899 Other long term (current) drug therapy
CPT/HCPCS: 99282

== ENCOUNTER → 2024-06-09 | Outpatient (CLI) | payer MEDICAID, SELFPAY ==
[2024-06-09 10:42] LABS: Absolute Lymphocyte Count 2.03 X10^3/uL (0.83-4.51); Absolute Neutrophil Count 3.9 X10^3/uL (2.0-7.7); Basophil# 0.03 X10^3/uL; Basophil% 0.5 % (0-1); Eosinophil# 0.07 X10^3/uL; Eosinophils% 1.1 % (0-5); Hematocrit 38.1 % (37-47); Hemoglobin 12.2 g/dL (12.0-15.0); Lymphocyte # 2.03 X10^3/ul (0.83-4.51); Lymphocyte % 31.4 % (19-41); Mean Corpuscular Volume 87.4 fL (81-99); Mean Platelet Vol. 9.5 fl (6.2-12.0); Monocyte% 6.2 % (0-10); NRBC Flagged by Analyzer 0 % (0-5); Neutrophil # 3.91 X10^3/uL (2.7-7.7); Neutrophil % 60.5 % (47-70); Platelet Count 289 K/mm3 (150-450); RBC Distribution Width CV 12.8 % (11.6-14.6); RBC Distribution Width SD 40.8 fl (35.1-43.9); Red Blood Count 4.36 M/mm3 (4.2-5.4); White Blood Count 6.5 K/mm3 (4.4-11.0)
[2024-06-09 11:15] LABS: AST(SGOT) 12 U/L (15-37); Alanine Aminotransfer ALT/SGPT 23 U/L (13-56); Albumin, Serum 3.8 g/dL (3.2-5.0); Alkaline Phosphatase 79 U/L (45-117); Anion Gap 4 (5-15); BUN 15 mg/dL (7-18); BUN/Creat Ratio 20.6 RATIO (10-20); Calcium,Total 9.2 mg/dL (8.5-10.1); Chloride 106 mmol/L (98-107); Creatinine, Serum 0.73 mg/dL (0.55-1.02); EST Glomerular Filtration Rate 103 mL/min (>60); Est Glom Filt Rate - Afr Amer 125 mL/min (>60); Glucose 109 mg/dL (74-106); Potassium 3.8 mmol/L (3.5-5.1); Protein, Total 7.8 g/dL (6.4-8.2); Sodium Level 136 mmol/L (136-145)
[2024-06-09 11:46] LABS: Hepatitis B Surface Antibody Reactive; Hepatitis B Surface Antigen Non-Reactive (Nonreactive); Hepatitis C Antibody Non-Reactive (Nonreactive)
[2024-06-10 05:07] LABS: Hepatitis A AB, Total Positive (Negative); Hepatitis B Core Ab Total Negative (Negative)
== END | disposition home or self-care (01) ==
PROVIDERS: PCP Registered Nurse; Referring Provider Nurse Practitioner Acute Care; Visit Provider Nurse Practitioner Acute Care
DX: R11.0 Nausea (principal); R10.11 Right upper quadrant pain; K59.00 Constipation, unspecified
CPT/HCPCS: 36415; 80053; 85025; 86704; 86706; 86708; 86803; 87340

== ENCOUNTER → 2024-06-24 | Outpatient (CLI) | payer MEDICAID, SELFPAY ==
--- NOTE | 2024-06-24 17:02 | RAD_ITS ---
PROCEDURE: LEFT KNEE, THREE VIEWS REASON FOR EXAM: FELL SEVERAL DAYS AGO. LEFT KNEE PAIN. TECHNIQUE: 3 view(s) of the LEFT knee COMPARISON: LEFT KNEE DATED 11/09/2023. FINDINGS: No fracture. No suspicious bone lesion. Normal alignment. No effusion. Soft tissues are unremarkable. RAD/Knee 3 Views IMPRESSION: No acute osseous findings involving the left knee. No other significant findings. Reading Location: [facility]
--- NOTE | 2024-06-24 17:02 | RAD_ITS ---
PROCEDURE: ANKLE MIN 3 VIEWS REASON FOR EXAM: Fell several days ago. TECHNIQUE: 3 views of the left ankle COMPARISON: 12/01/2022 left ankle. FINDINGS: No visible fracture. No suspicious bone lesion. Normal alignment. Mortise appears intact. No effusion. Soft tissues are unremarkable. RAD/Ankle min 3 Views IMPRESSION: NEGATIVE ANKLE SERIES Reading Location: [facility]
== END | disposition home or self-care (01) ==
LOC: MTRAD 17:02
PROVIDERS: PCP Registered Nurse; Referring Provider Nurse Practitioner; Visit Provider Nurse Practitioner
DX: M25.562 Pain in left knee (principal); W19.XXXA Unspecified fall, initial encounter; M79.672 Pain in left foot
CPT/HCPCS: 73562; 73610

== ENCOUNTER 2024-06-26 10:30 | Outpatient (RCR) | payer MEDICAID, SELFPAY ==
--- NOTE | 2024-06-04 11:06 | HP.PTREVAL ---
Re-Evaluation Intro: Dr. Aury Staples, DO, It has been my pleasure to treat MATT DRUMMOND over the last 46 visits for Knee and hip pain.. Please see the progress note below for an update on the physical therapy plan of care! Subjective Subjective: I feel like we lost a lot after my surgery Objective Objective/Function: L knee pain 2/10, LBP 5/10 L knee ROM: 0-5-120 degrees L knee MMT: flex= 39, ext= 17 #F Core strength: Pt is unable to perform a bridge full ROM secondary to core weakness Plan Plan Plan: core strengthening, L LE strengthening, balance and proprio, nustep, and hep Balance/Gait/Functional tests Balance/Special Test Scores Lower Extremity Functional Score: 35 Goals Goals Goal 1:: Decrease LBP x 50% to aid with IADL's Goal Time Frame: 4-6 Weeks Goal 2:: Increase L knee ext strength x 20#F to aid with stair negotiation Goal Time Frame: 4-6 Weeks Goal 3:: Pt will be able to perform 10 bridges with full ROM to demonstrate improved core stability Goal Time Frame: 4-6 Weeks Goal 4:: I with HEP Goal Time Frame: 4-6 Weeks Anticipated Interventions Re-Evaluation Ending Re-evaluation ending: Please do not hesitate to contact me at [phone] by phone or if you have questions or concerns regarding this new plan of care! Sincerely, Evans Matthews, PT, ATC
--- NOTE | 2024-06-26 11:26 | HP.PTDCSUM ---
Discharge Summary D/C summary: It has been my pleasure to treat MATT DRUMMOND referred by Dr. Aury Staples DO, with the diagnosis of Knee and hip pain. for a total of 53 visit(s). Discharge Date: Please see the following information for a summary of their discharge status. Subjective Subjective: I am still painful. Pain LB: Pain Intensity (Out of 10): 6 l KNEE: Pain Intensity (Out of 10): 4 L ankle: Pain Intensity (Out of 10): 4 Overall Improvement % Improvement: 44 Objective Objective/Function: LBP 6/10 L knee ext strength 19 #F Pt is able to perform 10 bridges, but not through a full ROM Pt is I with HEP Goals Goal 1:: Decrease LBP x 50% to aid with IADL's Goal Progress: Progressing Goal 2:: Increase L knee ext strength x 20#F to aid with stair negotiation Goal Progress: Progressing Goal 3:: Pt will be able to perform 10 bridges with full ROM to demonstrate improved core stability Goal Progress: Progressing Goal 4:: I with HEP Goal Progress: Goal Met Plan Plan: Discontinue to HEP D/C Information d/c sentence: If there are questions or concerns regarding this patient's physical therapy, please feel free to call me at [phone]. Thank you for the referral of this patient. Sincerely, Evans Matthews, PT, ATC Balance/Gait/Functional tests Balance/Special Test Scores Lower Extremity Functional Score: 28 Improvement % Improvement: 44
== END 2024-06-26 19:00 | disposition home or self-care (01) ==
LOC: PT 10:30
PROVIDERS: PCP Registered Nurse; Referring Provider Internal Medicine; Visit Provider Internal Medicine
DX: R13.10 Dysphagia, unspecified (principal); M22.2X1 Patellofemoral disorders, right knee; M22.2X2 Patellofemoral disorders, left knee; M67.959 Unspecified disorder of synovium and tendon, unspecified thigh
CPT/HCPCS: 97110; 97530

== ENCOUNTER → 2024-06-26 | Outpatient (CLI) | payer MEDICAID, SELFPAY | END | disposition home or self-care (01) | PROVIDERS: PCP Registered Nurse; Referring Provider Nurse Practitioner Acute Care; Visit Provider Nurse Practitioner Acute Care | DX: K76.0 Fatty (change of) liver, not elsewhere classified (principal) | CPT/HCPCS: 36415 ==

== ENCOUNTER → 2024-07-07 | Outpatient (CLI) | payer MEDICAID, SELFPAY ==
[2024-07-07 15:05] LABS: Bacteria 0 SEEN /hpf (None Seen); Mucous, Urine 0 SEEN /hpf (<or=2+); Squamous Epithelial Cells - UA 0 SEEN /hpf (5-10); White Blood Cells 0 SEEN /hpf (0-5)
[2024-07-07 15:43] LABS: Absolute Lymphocyte Count 1.98 X10^3/uL (0.83-4.51); Absolute Neutrophil Count 5.1 X10^3/uL (2.0-7.7); Basophil# 0.03 X10^3/uL; Basophil% 0.4 % (0-1); Eosinophil# 0.09 X10^3/uL; Eosinophils% 1.2 % (0-5); Hematocrit 37.2 % (37-47); Lymphocyte # 1.98 X10^3/ul (0.83-4.51); Lymphocyte % 26.1 % (19-41); Mean Corp Hgb Conc 32.3 g/dL (32-36); Mean Corpuscular Hgb 28.3 pg (27.0-32.0); Mean Corpuscular Volume 87.7 fL (81-99); Mean Platelet Vol. 10.7 fl (6.2-12.0); Monocyte# 0.41 X10^3/uL; Monocyte% 5.4 % (0-10); NRBC Flagged by Analyzer 0 % (0-5); Neutrophil # 5.07 X10^3/uL (2.7-7.7); Neutrophil % 66.6 % (47-70); Platelet Count 304 K/mm3 (150-450); RBC Distribution Width CV 12.7 % (11.6-14.6); RBC Distribution Width SD 39.9 fl (35.1-43.9); Red Blood Count 4.24 M/mm3 (4.2-5.4); White Blood Count 7.6 K/mm3 (4.4-11.0)
[2024-07-07 15:47] LABS: Color, Urine Yellow (Yellow); Glucose, Dipstick Normal (Normal); Ketone-Dipstick Negative (Negative); Leukocyte Esterase-Dipstick 25 /ul (Negative); Nitrite-Dipstick Negative (Negative); Occult Blood-Urine 10 /ul (Negative); Protein-Dipstick 15 mg/dl (Negative); Urine Bilirubin Dipstick Negative (Negative); Urine Clarity Sl. Cloudy (Clear); Urine Urobilinogen Normal (Normal)
[2024-07-07 15:57] LABS: ALB/GLOB Ratio 0.9 RATIO (0.9-2.4); AST(SGOT) 20 U/L (15-37); Alanine Aminotransfer ALT/SGPT 25 U/L (13-56); Albumin, Serum 3.6 g/dL (3.2-5.0); Alkaline Phosphatase 73 U/L (45-117); Anion Gap 6 (5-15); BUN 14 mg/dL (7-18); BUN/Creat Ratio 19.3 RATIO (10-20); CPK Total, Creatine Kinase 84 U/L (26-192); Calcium,Total 9.1 mg/dL (8.5-10.1); Chloride 108 mmol/L (98-107); Creatinine, Serum 0.73 mg/dL (0.55-1.02); EST Glomerular Filtration Rate 104 mL/min (>60); Est Glom Filt Rate - Afr Amer 126 mL/min (>60); Globulin 3.9 g/dL (2.2-4.2); Glucose 104 mg/dL (74-106); Potassium 3.9 mmol/L (3.5-5.1); Protein, Total 7.5 g/dL (6.4-8.2); Sodium Level 140 mmol/L (136-145)
[2024-07-07 16:29] LABS: Erythrocyte Sedimentation Rate 20 mm/hr (0-30)
[2024-07-07 21:33] LABS: Red Blood Cells-Urine 0 SEEN /hpf (0-5)
[2024-07-09 13:08] LABS: Anti-Nuclear Antibody Test Negative (.); Anti-dsDNA Ab <1 IU/mL (0-9)
[2024-07-09 14:08] LABS: Aldolase 4.9 U/L (3.3-10.3)
== END | disposition home or self-care (01) ==
LOC: MTLAB 13:35
PROVIDERS: PCP Registered Nurse; Referring Provider Physician Assistant Medical; Visit Provider Physician Assistant Medical
DX: L30.8 Other specified dermatitis (principal)
CPT/HCPCS: 36415; 80053; 81001; 82085; 82550; 85025; 85652; 86038; 86225

== ENCOUNTER → 2024-07-10 | Outpatient (CLI) | payer MEDICAID, SELFPAY ==
[2024-07-10 16:00] LABS: Prothrombin Time (Protime)PT. 13.1 SECONDS (11.7-14.9)
[2024-07-10 16:10] LABS: Ferritin 24 ng/mL (8-252); Iron 51 ug/dL (50-170); Iron Binding Capacity,Total 375 ug/dL (250-450); PERCENT IRON SATURATION 13.6 % (15.0-55.0)
[2024-07-14 13:08] LABS: ANTINUCLEAR ANTIBODIES DIRECT Negative (Negative); Anti-Mitochondrial AB <20.0 Units (0.0-20.0)
[2024-07-15 07:07] LABS: AFP, Tumor Marker < 1.8 ng/mL (0.0-4.7); Anti-Smooth Muscle ABS 4 Units (0-19); Ceruloplasmin 31.3 mg/dL (19.0-39.0); Cytoplasmic Ab (C-ANCA) <1:20 titer (Neg:<1:20); Immunoglobulin A 176 mg/dL (87-352); Perinuclear Ab (P-ANCA) <1:20 titer (Neg:<1:20); t-Transglutaminase IgA <2 U/mL (0-3)
== END | disposition home or self-care (01) ==
PROVIDERS: PCP Registered Nurse; Referring Provider Nurse Practitioner Acute Care; Visit Provider Nurse Practitioner Acute Care
DX: R19.7 Diarrhea, unspecified (principal); K74.60 Unspecified cirrhosis of liver; R13.10 Dysphagia, unspecified; R10.11 Right upper quadrant pain; R11.0 Nausea; R63.5 Abnormal weight gain
CPT/HCPCS: 86225; 86235; 36415; 82105; 82390; 82728; 82784; 83516; 83540; 83550; 85610; 86037; 86038

== ENCOUNTER 2024-07-16 19:44 | Emergency (ER) | payer MEDICAID, SELFPAY ==
[2024-07-16 19:45] VITALS: BP 159/89; PULSE 123; RESP 24; TEMP 37.1; O2SAT 100; BMI 39.9
[2024-07-16 19:46] VITALS: BP 159/89; PULSE 123; RESP 24; TEMP 37.1; O2SAT 100
[2024-07-16 21:26] LABS: Absolute Lymphocyte Count 1.97 X10^3/uL (0.83-4.51); Absolute Neutrophil Count 8.3 X10^3/uL (2.0-7.7); Basophil# 0.03 X10^3/uL; Basophil% 0.3 % (0-1); Eosinophil# 0.08 X10^3/uL; Eosinophils% 0.7 % (0-5); Hematocrit 36.3 % (37-47); Hemoglobin 11.8 g/dL (12.0-15.0); Lymphocyte # 1.97 X10^3/ul (0.83-4.51); Lymphocyte % 17.3 % (19-41); Mean Corp Hgb Conc 32.5 g/dL (32-36); Mean Corpuscular Hgb 28.6 pg (27.0-32.0); Mean Corpuscular Volume 88.1 fL (81-99); Mean Platelet Vol. 10.6 fl (6.2-12.0); Monocyte# 0.94 X10^3/uL; Monocyte% 8.3 % (0-10); NRBC Flagged by Analyzer 0 % (0-5); Neutrophil # 8.31 X10^3/uL (2.7-7.7); Platelet Count 309 K/mm3 (150-450); RBC Distribution Width CV 12.7 % (11.6-14.6); Red Blood Count 4.12 M/mm3 (4.2-5.4); White Blood Count 11.4 K/mm3 (4.4-11.0)
[2024-07-16 21:36] LABS: Glucose, Dipstick Normal (Normal); Ketone-Dipstick Negative (Negative); Leukocyte Esterase-Dipstick 25 /ul (Negative); Nitrite-Dipstick Negative (Negative); Occult Blood-Urine 10 /ul (Negative); Protein-Dipstick 30 mg/dl (Negative); Specific Gravity, Urine 1.015 (1.002-1.030); Urine Bilirubin Dipstick Negative (Negative); Urine Urobilinogen Normal (Normal); Urine pH 6.5 (5.0 - 8.0)
[2024-07-16 21:48] LABS: Color, Urine Yellow (Yellow); Urine Clarity Sl Cloudy (Clear)
[2024-07-16 21:52] LABS: ALB/GLOB Ratio 1.2 RATIO (0.9-2.4); AST(SGOT) 21 U/L (<=31); Alanine Aminotransfer ALT/SGPT 16 U/L (<=34); Albumin, Serum 4.3 g/dL (3.5-5.0); Alkaline Phosphatase 98 U/L (35-104); Anion Gap 11 (5-15); BUN 13 mg/dL (4-19); BUN/Creat Ratio 19.7 RATIO (10-20); Calcium 9.6 mg/dL (7.6-11.0); Carbon Dioxide 25.8 mmol/L (22.0-29.0); Chloride 101 mmol/L (96-108); Creatinine, Serum 0.7 mg/dL (0.6-1.0); EST Glomerular Filtration Rate 124 (>60); Estimated Creatinine Clearance 140.26 ml/min; Globulin 3.6 g/dL (2.2-4.2); Glucose 107 mg/dL (70-99); Lipase 31 U/L (13-75); Protein, Total 7.9 g/dL (5.9-8.4); Sodium Level 138 mmol/L (133-145); Total Bilirubin 0.18 mg/dL (0.00-1.30)
[2024-07-16 22:00] LABS: Internal QC Validated? YES +Cl - CLEAR BKGD; Pregnancy, Serum, hCG Quali. NEGATIVE Negative
[2024-07-16 22:01] LABS: Bacteria 1+ /hpf (None Seen); Mucous, Urine 1+ /hpf (<or=2+); Red Blood Cells-Urine 0-5 SEEN /hpf (0-5); Squamous Epithelial Cells - UA 5-10 SEEN /hpf (5-10); White Blood Cells 5-10 SEEN /hpf (0-5)
--- NOTE | 2024-07-16 22:45 | RAD_ITS ---
PROCEDURE: CHEST PA AND LATERAL REASON FOR EXAM: Pain TECHNIQUE: Frontal and lateral views of the chest. COMPARISON: None. FINDINGS: Heart size is mildly enlarged. The mediastinal contour is unremarkable. The lungs are clear. The bones are unremarkable. RAD/Chest PA and Lateral IMPRESSION: Mild cardiomegaly with no acute pulmonary disease. Reading Location: [facility]
--- NOTE | 2024-07-16 22:47 | EX.ED.DYSGE1 ---
HPI History of Present Illness Chief Complaint: General Illness Informant: patient Narrative Narrative: Presents by private vehicle increasing pain right lung radiating to her back. She is status post bronchoscopy a week ago with biopsies at [facility]. 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 She reports increasing lesions therefore repeat bronchoscopy performed. She has been having pain since worse with deep breaths. Today having fevers and chills. No vomiting or diarrhea. Denies any immunocompromise history. She reports also recent history of kidney injury with hematuria being referred to specialist. No history of PE or DVT. Denies any hemoptysis. [facility] Medical History Ankle pain, left Right wrist sprain Left knee pain Strain of Achilles tendon Contact with or exposure to other viral diseases URI (upper respiratory infection) Sprain of left foot Left ankle sprain Contusion of left knee Anxiety Home Medications ?Medication ?Instructions ?Recorded ?Last Taken ?Type ergocalciferol (vitamin D2) 1,250 1,250 mcg PO QWEEK 06/09/24 Unknown History mcg (50,000 unit) capsule ferrous sulfate 325 mg (65 mg 325 mg PO QDAY 06/09/24 Unknown History iron) tablet flax seed oil PO 06/09/24 Unknown History hydroxyzine HCl 25 mg tablet 25 mg PO .QID PRN anxiety 06/09/24 Unknown History magnesium hydroxide 400 mg (170 mg 400 mg PO QD-BID 06/09/24 Unknown History magnesium) chewable tablet naltrexone 50 mg tablet 50 mg PO QDAY 06/09/24 Unknown History ondansetron HCl 4 mg tablet 4 mg PO Q8H PRN 06/09/24 Unknown History pantoprazole 40 mg tablet,delayed 40 mg PO QDAY 06/09/24 Unknown History release prazosin 2 mg capsule 2 mg PO QHS 06/09/24 Unknown History sumatriptan succinate 25 mg tablet See Rx Instructions PO .COMPLEX 06/09/24 Unknown History wheat dextrin 3 gram/4 gram oral 1.5 g PO BID #500 grams 06/09/24 Unknown Rx powder (Benefiber Sugar Free (dextrin)) hydrocortisone 2.5 % topical cream 1 applic NC QD-BID PRN rectal pain 07/10/24 Unknown Rx with perineal applicator and bleeding #30 grams (Anusol-HC) quetiapine 100 mg tablet (Seroquel) 150 mg PO QHS 07/10/24 Unknown History Allergy/AdvReac Type Severity Reaction Status Date / Time amoxicillin Allergy Upset Verified 07/16/24 19:45 Stomach erythromycin base Allergy Upset Verified 07/16/24 19:45 Stomach Penicillins (PCN) Allergy Upset Verified 07/16/24 19:45 Stomach azithromycin (From Zithromax) AdvReac Intermediate Hives Verified 07/16/24 19:45 metronidazole (From Flagyl) AdvReac Intermediate Rash Verified 07/16/24 19:45 sulfamethoxazole (From AdvReac Intermediate Rash Verified 07/16/24 19:45 Bactrim) trimethoprim (From Bactrim) AdvReac Intermediate Rash Verified 07/16/24 19:45 trazodone AdvReac Unknown suicidal Verified 07/16/24 19:45 ideation Family History Mother Alcohol abuse Breast cancer Hypertension Muscle weakness Substance abuse Father Alcohol abuse Hypertension Grandmother Breast cancer Cancer Sister Hypertension Surgical History Hx of breast reduction, elective Hx of cholecystectomy Social History sexually active: No Smoking Status: Never smoker alcohol intake: never substance use type: does not use ROS ROS ED Constitutional Constitutional ED: Reports chills and fever(s); Denies sweats ENT ENT ED: Denies sore throat Cardiovascular Cardiovascular: Reports chest pain; Denies leg edema, palpitations or racing heartbeat Respiratory/Chest Respiratory/Chest: Reports dyspnea; Denies cough or dyspnea on exertion Gastrointestinal Gastrointestinal: Denies abdominal pain, diarrhea, nausea or vomiting Genitourinary Genitourinary ED: Denies dysuria, hematuria or urinary frequency Musculoskeletal Musculoskeletal: Reports back pain; Denies extremity pain or neck pain Integumentary Denies rash or wounds Neurologic Neurologic: Denies headache(s), paresthesias or weakness EXAM Physical Exam Const Vital Signs: 07/16/24 19:45 07/16/24 19:46 07/16/24 23:00 Temperature 98.8 F 98.8 F Temperature Source Oral Oral Pulse Rate 123 H 123 H 113 H Respiratory Rate 24 H 24 H 19 H Blood Pressure 159/89 H 159/89 H Blood Pressure Mean 112 112 Pulse Ox 100 100 98 Oxygen Delivery Method Room Air Room Air Room Air 07/17/24 01:15 Temperature 98.0 F Temperature Source Pulse Rate 103 H Respiratory Rate 18 Blood Pressure 145/68 H Blood Pressure Mean 93 Pulse Ox 97 Oxygen Delivery Method Positive well nourished and well developed General Appearance ED: well developed and NAD HEENT Reports moist mucous membranes normocephalic and atraumatic Eyes General Eye ED: Yes normal appearance of both eyes Neck full ROM Chest Wall Chest: Negative for tenderness Resp normal respiratory effort and normal air movement Resp Narrative: Symmetric breath sounds. Effort and Inspection: symmetric chest movement; Negative for respiratory distress Cardio regular rhythm and no murmurs Peripheral Pulses: pulses 2+ throughout GI normal to inspection, nondistended, normoactive bowel sounds and non-tender Palpation: Negative for guarding or rebound tenderness present Extremity normal to inspection General Extremety ED: Negative for edema or tenderness General Extremity: Negative for edema Neuro oriented x3 and no sensory deficits noted Sensorium / Orientation: awake and alert Skin no rashes or lesions noted and no wounds MDM MDM MDM Narrative Medical decision making narrative: Interventions / MDM: Differential diagnosis: Pleurisy, status post bronchoscopy with biopsy, history of histoplasmosis Diagnosis considered but do not suspect: Pneumothorax and pulmonary embolism however image studies are negative. My EKG interpretation: N/A Imaging independently reviewed and interpreted by myself: 2 view chest x-ray: No acute process. No pneumothorax. External documents reviewed: N/A Test considered but not ordered:N/A ED course: Afebrile on arrival was tachycardic. Pulse ox 100% room air. Symmetric breath sounds. Triage labs were obtained. White count 11.4 creatinine normal at 0.7 lipase 31. Urine occult blood 25 leukocytes white cells 5-10 1+ bacteria. She denies any dysuria or frequency. Will send for culture. Added on viral swabs of COVID, flu, RSV with two-view chest x-ray. IV pain medicines, avoid NSAIDs with her reported recent kidney injury. 2323: 2 view chest x-ray interpreted myself and read by radiology no acute process. No pneumothorax. Pain with deep breath tachycardia, obtain CT angiogram to rule out pulmonary embolism. 0100: CT angiogram neck for PE. Multiple pulmonary nodules with lymphadenopathy per radiology multiple differentials however patient has known reported histoplasmosis being followed by her specialist. Clinically was feeling better on reevaluation. With her reported kidney issues with normal labs today discussed with her avoid NSAIDs at this time she will use Tylenol up to 1 g every 6 hours. She will follow-up with her doctors. Discussed pleurisy symptoms. All questions were answered. Re-evaluation: stable Disposition discussed with patient/family/significant other: Patient Case discussed with consulting clinician: N/A This note was generated with [employer] dictation software. It may contain incorrect words, spelling, and punctuation that were not noted in checking the note before signing. Lab Data Attestation: I reviewed the patient's lab results. Labs: Laboratory Results - last 24 hr 07/16/24 07/16/24 20:27 21:10 WBC 11.4 H RBC 4.12 L Hgb 11.8 L Hct 36.3 L MCV 88.1 MCH 28.6 MCHC 32.5 RDW Std Deviation 41.0 RDW Coeff of [place] 12.7 Plt Count 309 MPV 10.6 Immature Gran % (Auto) 0.400 Neut % (Auto) 73.0 H Lymph % (Auto) 17.3 L [place] % (Auto) 8.3 Eos % (Auto) 0.7 Baso % (Auto) 0.3 Absolute Neuts (auto) 8.3 H Absolute Lymphs (auto) 1.97 Nucleated RBC % 0 Sodium 138 Potassium 4.0 Chloride Direct 101 Carbon Dioxide 25.8 Anion Gap 11 BUN 13 Creatinine 0.7 Estim Creat Clear Calc 140.26 Est GFR (MDRD) Non-Af 124 BUN/Creatinine Ratio 19.7 Glucose 107 H Calcium 9.6 Total Bilirubin 0.18 AST 21 ALT 16 Alkaline Phosphatase 98 Total Protein 7.9 Albumin 4.3 Globulin 3.6 Albumin/Globulin Ratio 1.2 Lipase 31 Serum , Qual NEGATIVE Urine Color Yellow Urine Clarity Sl Cloudy Urine pH 6.5 Ur Specific [place] 1.015 Urine Protein 30 H Urine Glucose (UA) Normal Urine Ketones Negative Urine Occult Blood 10 H Urine Nitrite Negative Urine Bilirubin Negative Urine Urobilinogen Normal Ur Leukocyte Esterase 25 H Urine RBC 0-5 SEEN Urine WBC 5-10 SEEN Ur Squamous Epith Cells 5-10 SEEN Urine Bacteria 1+ Urine Mucus 1+ Radiography Diagnostic Testing: Clinical Impression(s) from Imaging Studies Chest X-Ray 07/16/24 22:45 IMPRESSION: Mild cardiomegaly with no acute pulmonary disease. Reading Location: [facility] Chest CTA 07/16/24 23:23 IMPRESSION: No evidence of filling defect to suggest pulmonary embolism. A combination of right greater than left bilateral noncalcified pulmonary nodules and mediastinal/hilar lymph node enlargement suggests possibility of granulomatous disease, infectious, sarcoidosis among others, clinically correlate. Given the patient's age less likely to represent metastatic disease. The combination of lymph node enlargement and pulmonary nodules also less likely lymphoma although not excluded at this time. One or more dose reduction techniques were used (e.g., Automated exposure control, adjustment of the mA and/or kV according to patient size, use of iterative reconstruction technique). Reading Location: [id number] Discharge Plan Triage Chief Complaint: General Illness ED Provider: Harvinder Rossi Dx/Rx/DC Orders Clinical Impression: Pleurisy, History of histoplasmosis, Status post bronchoscopy with biopsy Instructions: ED Pleurisy Prescriptions: No Action hydroxyzine HCl 25 mg tablet 25 mg PO .QID PRN (Reason: anxiety) ferrous sulfate 325 mg (65 mg iron) tablet 325 mg PO QDAY pantoprazole 40 mg tablet,delayed release (DR/EC) 40 mg PO QDAY ergocalciferol (vitamin D2) 1,250 mcg (50,000 unit) capsule 1,250 mcg PO QWEEK flax seed oil PO magnesium hydroxide 400 mg (170 mg magnesium) tablet,chewable 400 mg PO QD-BID naltrexone 50 mg tablet 50 mg PO QDAY ondansetron HCl 4 mg tablet 4 mg PO Q8H PRN prazosin 2 mg capsule 2 mg PO QHS sumatriptan succinate 25 mg tablet See Rx Instructions PO .COMPLEX Rx Instructions: take 1 tab at onset of headache; if no relief may repeat 1 tab after at least 2 hrs; max = 4 tabs/24 hr PO Benefiber Sugar Free (dextrin) 3 gram/4 gram powder 1.5 g PO BID Qty: 500 1RF Rx Instructions: mix into at least 8 oz water or juice every morning quetiapine [Seroquel] 100 mg tablet 150 mg PO QHS hydrocortisone [Anusol-HC] 2.5 % cream with perineal applicator 1 applic NC QD-BID PRN (Reason: rectal pain and bleeding) Qty: 30 0RF Primary Care Provider: Evelyne Cruz NP Referrals: Evelyne Cruz NP, [employer] ASSEMBLING MACHINE OPERATOR-C [Primary Care Provider] - Activity Restrictions/Additional Instructions: Workup negative. X-ray CT chest no pneumothorax. No pulmonary nodules with lymphadenopathy that is known with your histoplasmosis. Use Tylenol 1 g every 6 hours needed for pain. Follow-up with your doctors. Print Language: Latvian Disposition Disposition: Home, Self Care Discharge Date/Time: 07/17/24 01:16
[2024-07-16] MEDS: HYDROmorphone 1 MG/ML Syringe 0.5 MG IV (22:56)
[2024-07-16 23:00] VITALS: PULSE 113; RESP 19; O2SAT 98
[2024-07-16] MEDS: 0.9% Normal Saline (500mL Bag) 500 ML 999 ML IV (23:09)
--- NOTE | 2024-07-16 23:23 | CT_ITS ---
PROCEDURE: CTA CHEST W/WO CONTRAST REASON FOR EXAM: Dyspnea, status post bronchoscopy with biopsy 1 week ago TECHNIQUE: Chest CT with intravenous contrast. Coronal and sagittal reformatted images and MIP images CONTRAST: 94 cc Isovue 370 COMPARISON: Chest radiograph 03/18/2023 FINDINGS: Hardware: None. Lymph nodes: Enlarged conglomeration of right paratracheal and pretracheal lymph nodes measuring a proximally 3.1 x 2.6 by 3.7 cm axial 159 and coronal 148. Enlarged tracheobronchial lymph node 1.6 cm axial 138. Mildly prominent bilateral hilar nodes. Enlarged subcarinal lymph node 1.9 x 1.7 cm axial 121. Heart and Vasculature: Normal heart size. No pericardial effusion. Thoracic aorta and pulmonary arteries are unremarkable. No evidence of filling defect to suggest pulmonary embolism. Ascending thoracic aorta 2.4 cm, descending thoracic aorta 1.9 cm. Lungs and Airways: Bilateral right more than left noncalcified pulmonary nodules with a lower zone predominance. Approximately 10 on the right and less than 5 on the left. Largest on the right within the right middle lobe subpleural anterior medial 1.2 cm axial 105 and largest on the left within the left lower lobe subpleural 1 cm axial 84. Pleura: No pleural effusion. No pneumothorax. Upper Abdomen: Visualized portions of the upper abdominal viscera are unremarkable. Common hepatic artery appears to arise directly off the abdominal aorta, anatomic variant. Status post cholecystectomy. Bones: Bone windows are unremarkable. CT/CTA Chest W/WO Contrast IMPRESSION: No evidence of filling defect to suggest pulmonary embolism. A combination of right greater than left bilateral noncalcified pulmonary nodul es and mediastinal/hilar lymph node enlargement suggests possibility of granulomatous disease, infectious, sarcoidosis among ot hers, clinically correlate. Given the patient's age less likely to represent metastatic disease. The combination of lymph node enlargement and pulmonary nodules also less likely lymphoma although not excluded at this time. One or more dose reduction techniques were used (e.g., Automated exposure contr ol, adjustment of the mA and/or kV according to patient size, use of iterative reconstruction technique). Reading Location: [id number]
[2024-07-17 01:15] VITALS: BP 145/68; PULSE 103; RESP 18; TEMP 36.7; O2SAT 97
== END 2024-07-17 01:16 | disposition home or self-care (01) ==
PROVIDERS: Emergency Provider Emergency Medicine; PCP Registered Nurse; Visit Provider Emergency Medicine
DX: R09.1 Pleurisy (principal); Z86.19 Personal history of other infectious and parasitic diseases; F41.9 Anxiety disorder, unspecified; Z79.899 Other long term (current) drug therapy; K21.9 Gastro-esophageal reflux disease without esophagitis; Z90.49 Acquired absence of other specified parts of digestive tract
CPT/HCPCS: 71046; 71275; 80053; 81001; 83690; 84703; 85025; 87086; 87088; 87631; 96361; 96374; 99283; Q9967; A4216

== ENCOUNTER → 2024-08-08 | Outpatient (CLI) | payer MEDICAID, SELFPAY ==
--- NOTE | 2024-08-08 07:18 | US_ITS ---
PROCEDURE: ABDOMEN LIMITED (USABDL), 08/08/2024 REASON FOR EXAM: RUQ PAIN COMPARISON: None FINDINGS: Liver: Unremarkable. 16.3 cm in length. Gallbladder: Surgically absent. Biliary tree: Unremarkable. CBD measures 3 mm. Pancreas: Partially obscured by shadowing bowel gas, grossly unremarkable as visualized. Right kidney: Unremarkable. 10.5 cm in length. Other: No visualized free fluid. US/Abdomen Limited IMPRESSION: 1. Cholecystectomy without biliary dilatation. If unexplained symptoms persist , consider CT. 2. Additional description as above. Reading Location: [id number]
== END | disposition home or self-care (01) ==
PROVIDERS: PCP Registered Nurse; Referring Provider Nurse Practitioner Acute Care; Visit Provider Nurse Practitioner Acute Care
DX: R11.0 Nausea (principal); R10.11 Right upper quadrant pain; K59.00 Constipation, unspecified
CPT/HCPCS: 76705

== ENCOUNTER → 2024-08-11 | Outpatient (CLI) | payer MEDICAID, SELFPAY ==
[2024-08-11 09:29] LABS: Absolute Lymphocyte Count 1.58 X10^3/uL (0.83-4.51); Basophil# 0.02 X10^3/uL; Basophil% 0.3 % (0-1); Eosinophils% 1.6 % (0-5); Hematocrit 34.2 % (37-47); Hemoglobin 10.8 g/dL (12.0-15.0); Lymphocyte # 1.58 X10^3/ul (0.83-4.51); Lymphocyte % 25.6 % (19-41); Mean Corp Hgb Conc 31.6 g/dL (32-36); Mean Corpuscular Hgb 27.8 pg (27.0-32.0); Mean Corpuscular Volume 88.1 fL (81-99); Mean Platelet Vol. 10.7 fl (6.2-12.0); Monocyte# 0.46 X10^3/uL; Monocyte% 7.5 % (0-10); NRBC Flagged by Analyzer 0 % (0-5); Neutrophil % 64.8 % (47-70); Platelet Count 263 K/mm3 (150-450); RBC Distribution Width CV 13.2 % (11.6-14.6); RBC Distribution Width SD 42.5 fl (35.1-43.9); Red Blood Count 3.88 M/mm3 (4.2-5.4); White Blood Count 6.2 K/mm3 (4.4-11.0)
[2024-08-11 09:40] LABS: International Normalized Ratio 0.9; Prothrombin Time (Protime)PT. 12.8 SECONDS (11.7-14.9)
[2024-08-11 09:41] LABS: Partial Thromboplast Time 24.6 Seconds (24.1-36.2)
[2024-08-11 17:26] LABS: Xtra Tube EP Lab EXTRA TUBE
== END | disposition home or self-care (01) ==
LOC: PAVLAB 09:11
PROVIDERS: PCP Registered Nurse; Referring Provider Nurse Practitioner Acute Care; Visit Provider Nurse Practitioner Acute Care
DX: K74.60 Unspecified cirrhosis of liver (principal); B39.2 Pulmonary histoplasmosis capsulati, unspecified; K76.0 Fatty (change of) liver, not elsewhere classified
CPT/HCPCS: 85025; 85610; 85730

== ENCOUNTER → 2024-08-15 | Outpatient (CLI) | payer MEDICAID, SELFPAY ==
[2024-08-15] VITALS (14 sets, daily range): BP systolic 92–129; BP diastolic 52–80; PULSE 72–99; RESP 14–26; TEMP 36.2; O2SAT 37–100; BMI 37.5
--- NOTE | 2024-08-15 09:04 | US_ITS ---
PROCEDURE: US NEEDLE BIOPSY/SOFT TISSUE 08/15/2024 REASON FOR EXAM: Histoplasmosis. TECHNIQUE: See below. COMPARISON: Right upper quadrant sonogram of July 16, 2024. FINDINGS: Informed consent was obtained. Conscious sedation and analgesia were utilized. Ultrasound guidance, aseptic technique, and local anesthesia were employed. Single intercostal stick laterally directly into the liver was performed using 17 gauge trocar needle. Subsequently, 2 separate 18 gauge core specimens were obtained at different depths and were submitted in formalin for pathology interpretation. The patient tolerated the procedure well was kept for brief observation stay prior to discharge home. US/US Needle Biopsy/Soft Tissue IMPRESSION: Uneventful ultrasound-guided liver biopsy as described. Reading Location: [facility]
[2024-08-15] MEDS: Midazolam 2 MG/2 ML Syringe IV (10:04)
[2024-08-15] MEDS: fentaNYL 100 MCG/2 ML Ampul IV (10:05)
[2024-08-15] MEDS: 0.9% Saline Lock 10 ML Syringe IV (10:05)
[2024-08-15] MEDS: Lidocaine 2% (20 ml mdv) 20 ML Vial INFILT (10:27)
[2024-08-15] MEDS: Ketorolac 30 MG/ML Syringe IV (10:55)
== END | disposition home or self-care (01) ==
LOC: CT 08:45 → US 08:51
PROVIDERS: PCP Registered Nurse; Referring Provider Internal Medicine Gastroenterology; Visit Provider Nurse Practitioner Acute Care
DX: B39.2 Pulmonary histoplasmosis capsulati, unspecified (principal); K74.60 Unspecified cirrhosis of liver; K76.0 Fatty (change of) liver, not elsewhere classified
CPT/HCPCS: 47000; 76942; 99156; 99157; A4216

== ENCOUNTER 2024-08-26 07:48 | Outpatient (CLI) | payer MEDICAID, SELFPAY ==
[2024-08-26 07:56] VITALS: BP 116/75; PULSE 79; RESP 16; TEMP 36; O2SAT 97
[2024-08-26] MEDS: Cosyntropin 0.25 MG Vial IM (08:04)
[2024-08-26 08:19] LABS: Absolute Lymphocyte Count 2.34 X10^3/uL (0.83-4.51); Absolute Neutrophil Count 4.3 X10^3/uL (2.0-7.7); Basophil# 0.03 X10^3/uL; Basophil% 0.4 % (0-1); Eosinophil# 0.15 X10^3/uL; Hematocrit 35.1 % (37-47); Hemoglobin 11.8 g/dL (12.0-15.0); Lymphocyte # 2.34 X10^3/ul (0.83-4.51); Lymphocyte % 31.8 % (19-41); Mean Corp Hgb Conc 33.6 g/dL (32-36); Mean Corpuscular Hgb 29.4 pg (27.0-32.0); Mean Corpuscular Volume 87.5 fL (81-99); Mean Platelet Vol. 9.9 fl (6.2-12.0); Monocyte# 0.56 X10^3/uL; Monocyte% 7.6 % (0-10); NRBC Flagged by Analyzer 0 % (0-5); Neutrophil # 4.26 X10^3/uL (2.7-7.7); Neutrophil % 57.8 % (47-70); Platelet Count 297 K/mm3 (150-450); RBC Distribution Width CV 13.4 % (11.6-14.6); RBC Distribution Width SD 42.5 fl (35.1-43.9); Red Blood Count 4.01 M/mm3 (4.2-5.4); White Blood Count 7.4 K/mm3 (4.4-11.0)
[2024-08-26 08:47] LABS: Iron 49 ug/dL (50-170); Iron Binding Capacity,Total 324 ug/dL (250-450); Iron Binding Capacity,Unsat 275 ug/dL (228-428)
[2024-08-26 09:07] VITALS: BP 108/69; PULSE 73; RESP 16; TEMP 36
== END 2024-08-26 23:59 | disposition home or self-care (01) ==
LOC: MEDOUTP 07:48
PROVIDERS: PCP Registered Nurse; Referring Provider Nurse Practitioner Acute Care; Visit Provider Nurse Practitioner Acute Care
DX: E87.1 Hypo-osmolality and hyponatremia (principal); R11.0 Nausea; D64.9 Anemia, unspecified
CPT/HCPCS: 82533; 83540; 83550; 85025; 96372; J0834

== ENCOUNTER 2024-10-29 22:41 | Emergency (ER) | payer MEDICAID, SELFPAY ==
[2024-10-29 22:42] VITALS: BP 133/78; PULSE 105; RESP 18; TEMP 36.6; O2SAT 99; BMI 38.3
--- NOTE | 2024-10-29 23:20 | EX.ED.UPPERE ---
HPI History of Present Illness HPI Narrative: Patient presents with left shoulder injury that occurred tonight. Patient states she backed her mower into her garage and a rake fell from the wall onto her left shoulder. Patient states the rake was louie. Patient describes the pain as aching, burning, and sharp. Patient states pain is worse with movement. Patient is unsure of her last tetanus. Patient does not know if she ever had tetanus immunization in the past. Patient denies any paresthesias or weakness. Patient denies any other injuries. Chief Complaint: Wound Check Occured/Mechanism Mechanism/Context: Yes direct blow Onset/Context/Timing Onset: Today Context: Sudden Onset Timing: Continuous Quality of Pain: Sharp, Aching and Burning Location: Left shoulder Worsened by: Movement Relieved by: Nothing Associated Symptoms Associated Symptoms: Negative for Parasthesia, Weakness or Loss of Funtion Narrative Tetanus Immunization: Unknown [facility] Medical History Cirrhosis Histoplasmosis Arthritis Low iron Injury of head and neck Esophageal abnormality History of IBS Non-smoker CPAP (continuous positive airway pressure) dependence Sleep apnea Chronic cough History of stress test Ankle pain, left Right wrist sprain Left knee pain Strain of Achilles tendon Contact with or exposure to other viral diseases URI (upper respiratory infection) Sprain of left foot Left ankle sprain Contusion of left knee Anxiety Home Medications ?Medication ?Instructions ?Recorded ?Last Taken ?Type ergocalciferol (vitamin D2) 1,250 1,250 mcg PO QWEEK 06/09/24 09/10/24 History mcg (50,000 unit) capsule ferrous sulfate 325 mg (65 mg 325 mg PO BID 06/09/24 09/10/24 History iron) tablet flax seed oil 1,000 mg PO DAILY 06/09/24 09/10/24 History hydroxyzine HCl 25 mg tablet 25 mg PO Q8H PRN anxiety 06/09/24 Unknown History magnesium hydroxide 400 mg (170 mg 400 mg PO QD-BID 06/09/24 09/10/24 History magnesium) chewable tablet naltrexone 50 mg tablet 50 mg PO QDAY 06/09/24 Unknown History ondansetron HCl 4 mg tablet 4 mg PO Q8H PRN nausea and vomiting 06/09/24 Unknown History pantoprazole 40 mg tablet,delayed 40 mg PO QDAY 06/09/24 Unknown History release sumatriptan succinate 25 mg tablet See Rx Instructions PO .COMPLEX 06/09/24 Unknown History hydrocortisone 2.5 % topical cream 1 applic MS QD-BID PRN rectal pain 07/10/24 Unknown Rx with perineal applicator and bleeding #30 grams (Anusol-HC) quetiapine 100 mg tablet (Seroquel) 200 mg PO QHS 07/10/24 Unknown History peg 3350-electrolytes 236 240 ml PO Q10M #4,000 mL 08/11/24 Unknown Rx gram-22.74 gram-6.74 gram-5.86 gram solution (Golytely) gabapentin 300 mg capsule 300 mg PO DAILY 10/29/24 Unknown History Allergy/AdvReac Type Severity Reaction Status Date / Time amoxicillin Allergy Upset Verified 10/29/24 22:42 Stomach erythromycin base Allergy Upset Verified 10/29/24 22:42 Stomach Penicillins (PCN) Allergy Upset Verified 10/29/24 22:42 Stomach azithromycin (From Zithromax) AdvReac Intermediate Hives Verified 10/29/24 22:42 metronidazole (From Flagyl) AdvReac Intermediate Rash Verified 10/29/24 22:42 sulfamethoxazole (From AdvReac Intermediate Rash Verified 10/29/24 22:42 Bactrim) trimethoprim (From Bactrim) AdvReac Intermediate Rash Verified 10/29/24 22:42 trazodone AdvReac Unknown suicidal Verified 10/29/24 22:42 ideation Family History Mother Alcohol abuse Breast cancer Hypertension Muscle weakness Substance abuse Father Alcohol abuse Hypertension Grandmother Breast cancer Cancer Sister Hypertension Surgical History History of hysterectomy Hx of breast reduction, elective Hx of cholecystectomy Social History sexually active: No Smoking Status: Never smoker alcohol intake: never substance use type: does not use ROS ROS ED Constitutional Constitutional ED: Denies chills or fever(s) Eyes Eyes: Denies blurry vision or change in vision ENT ENT ED: Denies rhinorrhea or sore throat Cardiovascular Cardiovascular: Denies chest pain or palpitations Respiratory/Chest Respiratory/Chest: Denies cough or dyspnea Gastrointestinal Gastrointestinal: Denies nausea or vomiting Genitourinary Genitourinary ED: Denies dysuria or hematuria Musculoskeletal Musculoskeletal: Denies back pain or neck pain Integumentary Reports Abrasions; Denies abscess or rash Neurologic Neurologic: Denies headache(s) or weakness Allergic/Immunologic Allergic/Immunologic ED: Denies mouth swelling or urticaria EXAM Physical Exam Const Vital Signs: 10/29/24 22:42 Temperature 97.9 F Temperature Source Temporal Pulse Rate 105 H Respiratory Rate 18 Blood Pressure 133/78 H Blood Pressure Mean 96 Pulse Ox 99 Oxygen Delivery Method Room Air Positive well nourished and well developed General Appearance ED: well developed and NAD HEENT Reports moist mucous membranes Neck full ROM and supple Extremity Extremity Narrative: There is tenderness over the superior and posterior aspect of the left shoulder. There is no bony crepitance or step-off. There is no deformity noted. Range of motion was limited in all motions of the left shoulder secondary to pain. Strength is 5/5 bilaterally upper extremities. There are no sensory deficits noted. Neuro oriented x3, CN's II-XII intact bilaterally, moves all extremities, no focal motor deficits and no sensory deficits noted Sensorium / Orientation: alert Motor Exam: strength 5/5 throughout Psych mental status grossly normal Skin Skin Narrative: There is a superficial abrasion noted over the superior posterior aspect of the left shoulder. There is no surrounding erythema. There is no active bleeding noted. MDM MDM MDM Narrative Medical decision making narrative: Patient was given a tetanus booster. Bacitracin dressing was applied. Patient was advised that x-rays are not necessary at this time. I do not feel there is a fracture of the scapula or clavicle. Patient is agreeable with this. Patient was instructed continue using Neosporin ointment. Patient was instructed to follow-up with her primary care physician in 5 to 7 days. Patient understood and was agreeable with the plan. All questions were answered. Discharge Plan Triage Chief Complaint: Wound Check ED Provider: Sharan Mckeon Dx/Rx/DC Orders Clinical Impression: Abrasion of left scapular region, Contusion of left scapular region Instructions: ED Abrasion Prescriptions: No Action hydroxyzine HCl 25 mg tablet 25 mg PO Q8H PRN (Reason: anxiety) ferrous sulfate 325 mg (65 mg iron) tablet 325 mg PO BID pantoprazole 40 mg tablet,delayed release (DR/EC) 40 mg PO QDAY ergocalciferol (vitamin D2) 1,250 mcg (50,000 unit) capsule 1,250 mcg PO QWEEK Patient Comments: ON FRIDAYS flax seed oil 1,000 mg PO DAILY magnesium hydroxide 400 mg (170 mg magnesium) tablet,chewable 400 mg PO QD-BID naltrexone 50 mg tablet 50 mg PO QDAY ondansetron HCl 4 mg tablet 4 mg PO Q8H PRN (Reason: nausea and vomiting) sumatriptan succinate 25 mg tablet See Rx Instructions PO .COMPLEX Rx Instructions: take 1 tab at onset of headache; if no relief may repeat 1 tab after at least 2 hrs; max = 4 tabs/24 hr PO quetiapine [Seroquel] 100 mg tablet 200 mg PO QHS hydrocortisone [Anusol-HC] 2.5 % cream with perineal applicator 1 applic MS QD-BID PRN (Reason: rectal pain and bleeding) Qty: 30 0RF peg 3350-electrolytes [Golytely] 236-22.74-6.74 -5.86 gram recon soln 240 ml PO Q10M Qty: 4000 0RF Rx Instructions: as directed for split dose bowel prep gabapentin 300 mg capsule 300 mg PO DAILY Primary Care Provider: Evelyne Cruz NP Referrals: Evelyne Cruz NP, [employer] [Primary Care Provider] - 5-7 Days Print Language: Indian Disposition Disposition: Home, Self Care
--- OUTSIDE RECORDS SUMMARY | 2024-10-29 23:25 | XMS RPT_ITS | CCD ---
Author Organization [facility] Care Team Providers Care Copy Director Name Role Phone Unavailable Primary Care Provider Unavailabl e [place] Doctor, Out of Primary Care Provider Unavai irena [facility] Doctor, Out of Referring Provider Unavailab ASIM Garibay Attending Provider Oriana Taylor DO Attending Unavailable Oriana Taylor DO Referring Unavailable Oriana Taylor DO Consulting Unavailable Care Physician, No Primary Primary Care Provider Unavailable Care Physician, No Primary Referring Provider Un available ASIM Tavarez Attending Provider Dr. Levon Ennis Attending Provider VACCCHUCK DANGELO, SHAUNA Primary Care Physician ASIM Tavarez Attending Provider ASIM Andrea Attending Provider MD Dario Alejandre Attending Provider Care Physician, No Primary Primary Care Provider Unavailable Care Physician, No Primary Referring Provider Un available Unavailable Primary Care Provider Unavailabl e VERGHESE, JACK Referring Unavailable VERGHESE, JACK Referring Unavailable Unavailable Primary Care Provider Unavailmarj Priest MULTIMEDIA ASSISTANT, MULTIMEDIA ASSISTANT-C Jack Primary Care Provider Cem ROSADO, MULTIMEDIA ASSISTANT-C Jack Referring Provider ASIM Tavarez Attending Provider Cem ROSADO, MULTIMEDIA ASSISTANT-C Jack Primary Care Provider Cem ROSADO, MULTIMEDIA ASSISTANT-C Jack Referring Provider [phone] ASIM Tavarez Attending Provider [phone] López Hernandez Unavailable CEM PHARMACY CLERK-CATHEAD WORKER, JACK Subramanian Primary Care Physi [facility] CemJack patrick CNP Primary Care Provider LUL CARRANZA Referring Unavailable MARILYN PIÑA Referring Unavailable JACK PRIEST Primary Care Unavailable VACCARELLI PA-C, SHAUNA Attending Unavailab le VACCARELLI PA-C, SHAUNA Primary Care Unavailab le CEM PHARMACY CLERK-CATHEAD WORKER, JACK Subramanian Attending Un available CEM PHARMACY CLERK-CATHEAD WORKER, JACK Subramanian Primary Care Un available CEM PHARMACY CLERK-CATHEAD WORKER, JACK Subramanian Attending Un available CEM PHARMACY CLERK-CATHEAD WORKER, JACK Subramanian Primary Care Un available CEM PHARMACY CLERK-CATHEAD WORKER, JACK Subramanian Attending Un available CEM PHARMACY CLERK-CATHEAD WORKER, JACK Subramanian Primary Care Un available CEM PHARMACY CLERK-CATHEAD WORKER, JACK Subramanian Attending Un available CEM PHARMACY CLERK-CATHEAD WORKER, JACK Subramanian Primary Care Un available ROCK PHARMACY CLERK-CATHEAD WORKER, PAOLA Attending Unavailabl e VACCARELLI PA-C, SHAUNA Primary Care Unavailab le CEM PHARMACY CLERK-CATHEAD WORKER, JACK Subramanian Attending Un available VACCARELLI PA-C, SHAUNA Primary Care Unavailab le VACCARELLI PA-C, SHAUNA Attending Unavailab le VACCARELLI PA-C, SHAUNA Primary Care Unavailab le CEM PHARMACY CLERK-CATHEAD WORKER, JACK Subramanian Attending Un available CEM PHARMACY CLERK-CATHEAD WORKER, JACK Subramanian Primary Care Un available CEM PHARMACY CLERK-CATHEAD WORKER, JACK Subramanian Attending Un available CEM PHARMACY CLERK-CATHEAD WORKER, JACK Subramanian Primary Care Un available CEM PHARMACY CLERK-CATHEAD WORKER, JACK Subramanian Attending Un available CEM PHARMACY CLERK-CATHEAD WORKER, JACK A Primary Care Un available CEM PHARMACY CLERK-CATHEAD WORKER, JACK Subramanian Attending Un available VACCARELLI PA-C, SHAUNA Primary Care Unavailab le VACCARELLI PA-C, SHAUNA Attending Unavailab le VACCARELLI PA-C, SHAUNA Primary Care Unavailab le VACCARELLI PA-C, SHAUNA Attending Unavailab le VACCARELLI PA-C, SHAUNA Primary Care Unavailab le DAPOZ, TAMARA Attending Unavailable CEM, JACK A Primary Care Unavailable Ariel White MD Unavailable CEM, JACK A Referring Unavailable LISA ALMANZAR Attending Unavailable CEM, JACK A Primary Care Unavailable DONTA LAYNE Attending Unavailable DONTA LAYNE Referring Unavailable CEM, JACK A Primary Care Unavailable MATHEUS LLAMAS Attending Unavailable NORRIS MATHEUS E Referring Unavailable CEM, JACK A Primary Care Unavailable CEM, JACK A Primary Care Unavailable ELHAM JACK R Referring Unavailable VELMA TORRES Attending Unavailable Cem PHARMACY CLERK-CATHEAD WORKER, Jack A Primary Care Prov brianda Velma Torres CGC Unavailable Unavailab Lisa Whitehead CGC Unavailable Unavailable WALTERS, LULETTE ALDAIR Referring Unavailabl e CEM, JACK A Primary Care Unavailable Eleni Priest CNPbeth A Unavailable [phone] MUKHPATTIEI, MARY Referring Unavailable CEM, JACK A Primary Care Unavailable MUFERNYI, MARY Referring Unavailable CEM, JACK A Primary Care Unavailable WALTERS, LULETTE ALDAIR Attending Unavailabl e CEM, JACK A Primary Care Unavailable JOE, DINORAH Referring Unavailable CEM, JACK A Primary Care Unavailable MUKHPATTIEI, MARY Attending Unavailable SELF Referring Unavailable CEM, JACK A Primary Care Unavailable CEM, JACK A Primary Care Unavailable STACY SEGURA Attending Unavailable CEM, JACK A Primary Care Unavailable SKYE BELLO Referring Unavai irena LIZARRAGAER, JACK A Primary Care Unavailable JOE, DINORAH Referring Unavailable CEM, JACK A Primary Care Unavailable MANJULA OLSONYNA Attending Unavailable JOHNNIE, KEVIN Referring Unavailable CEM, JACK A Primary Care Unavailable CEM, JACK A Primary Care Unavailable LUL CARRANZA Attending Unavailable YOUNG MARSH Attending Unavailable YOUNG MARSH Referring Unavailable CEM, JACK A Primary Care Unavailable AURY TRISTAN Attending Unavailable SELF Referring Unavailable CEM, JACK A Primary Care Unavailable STACY SEGURA Attending Unavailable CEM, JACK A Primary Care Unavailable CEM, JACK A Primary Care Unavailable CEM, JACK A Primary Care Unavailable CEM, JACK A Primary Care Unavailable CEM, JACK A Primary Care Unavailable MULLIGAN, PIERCE B Referring Unavailable CEM, JACK A Primary Care Unavailable WALTERS, LULETTE ALDAIR Referring Unavailabl e CEM, JACK A Primary Care Unavailable GIRALDO, SKYE Referring Unavailable CEM, JACK A Primary Care Unavailable STACY SEGURA Admitting Unavailable STACY SEGURA Attending Unavailable CEM, JACK A Primary Care Unavailable WALTERS, LULETTE ALDAIR Attending Unavailabl e CEM, JACK A Primary Care Unavailable JOHNNIE, KEVIN Attending Unavailable CEM, JACK A Primary Care Unavailable JOHNNIE, KEVIN Referring Unavailable CEM, JACK A Primary Care Unavailable JAQUELINE, MARY Attending Unavailable CEM, JACK A Primary Care Unavailable MARILYN PIÑA Attending Unavailable CEM, JACK A Primary Care Unavailable GIRALDO, SKYE Referring Unavailable CEM, JACK A Primary Care Unavailable GIRALDO, SKYE Referring Unavailable ANTONY, CHE Admitting Unavailable ANTONY, CHE Attending Unavailable CEM, JACK A Primary Care Unavailable STACY SEGURA Attending Unavailable SELF Referring Unavailable CEM, JACK A Primary Care Unavailable CIUNI, LUL Referring Unavailable CEM, JACK A Primary Care Unavailable LENORA DOW Attending Unavailable CIUNI, LUL Referring Unavailable CEM, JACK A Primary Care Unavailable MULLIGAN, PIERCE B Referring Unavailable CEM, JACK A Primary Care Unavailable JOE, DINORAH Referring Unavailable CEM, JACK A Primary Care Unavailable MALACHI KHALIL Attending Unavailable SELF Referring Unavailable CEM, JACK A Primary Care Unavailable MUKHDOMI, MARY Referring Unavailable CEM, JACK A Primary Care Unavailable JULIET COREY Attending Unavailable MARILYN PIÑA Referring Unavailable CEM, JACK A Primary Care Unavailable MARILYN PIÑA Referring Unavailable CEM, JACK A Primary Care Unavailable MARILYN PIÑA Attending Unavailable CEM, JACK A Primary Care Unavailable STACY SEGURA Attending Unavailable SELF Referring Unavailable CEM, JACK A Primary Care Unavailable LUL CARRANZA Referring Unavailable CEM, JACK A Primary Care Unavailable YOUNG MARSH Attending Unavailable CEM, JACK A Primary Care Unavailable CEM, JACK A Primary Care Unavailable REBEL SNEED Referring Unavailable CEM, JACK A Primary Care Unavailable DINORAH JOE Referring Unavailable CEM, JACK A Primary Care Unavailable CEM PHARMACY CLERK-CATHEAD WORKER, JACK A Primary Care Un available CEM PHARMACY CLERK-CATHEAD WORKER, JACK A Attending Un available CEM PHARMACY CLERK-CATHEAD WORKER, JACK A Primary Care Un available ARIEL WHITE MD Attending Unavailable CEM PHARMACY CLERK-CATHEAD WORKER, JACK A Primary Care Un available CEM PHARMACY CLERK-CATHEAD WORKER, JACK A Attending Un available CEM PHARMACY CLERK-CATHEAD WORKER, JACK A Primary Care Un available CEM PHARMACY CLERK-CATHEAD WORKER, JACK A Attending Un available CEM PHARMACY CLERK-CATHEAD WORKER, JACK A Primary Care Un available CEM PHARMACY CLERK-CATHEAD WORKER, JACK A Attending Un available CEM PHARMACY CLERK-CATHEAD WORKER, JACK A Attending Un available CEM PHARMACY CLERK-CATHEAD WORKER, JACK A Primary Care Un available CEM PHARMACY CLERK-CATHEAD WORKER, JACK A Primary Care Un available CEM PHARMACY CLERK-CATHEAD WORKER, JACK A Attending Un available CEM PHARMACY CLERK-CATHEAD WORKER, JACK A Primary Care Un available CEM PHARMACY CLERK-CATHEAD WORKER, JACK A Attending Un available CEM PHARMACY CLERK-CATHEAD WORKER, JACK A Attending Un available CEM PHARMACY CLERK-CATHEAD WORKER, JACK A Primary Care Un available ARIEL WHITE MD Attending Unavailable CEM PHARMACY CLERK-CATHEAD WORKER, JACK A Primary Care Un available CEM PHARMACY CLERK-CATHEAD WORKER, JACK A Attending Un available CEM PHARMACY CLERK-CATHEAD WORKER, JACK A Primary Care Un available ARIEL WHITE MD Attending Unavailable CEM PHARMACY CLERK-CATHEAD WORKER, JACK A Primary Care Un available CEM PHARMACY CLERK-CATHEAD WORKER, JACK A Primary Care Un available CEM PHARMACY CLERK-CATHEAD WORKER, JACK A Attending Un available CEM PHARMACY CLERK-CATHEAD WORKER, JACK A Primary Care Un available CEM PHARMACY CLERK-CATHEAD WORKER, JACK A Attending Un available CEM PHARMACY CLERK-CATHEAD WORKER, JACK A Primary Care Un available CEM PHARMACY CLERK-CATHEAD WORKER, JACK A Attending Un available CEM PHARMACY CLERK-CATHEAD WORKER, JACK A Primary Care Un available CINDY GARCIA, ARIEL Attending Unavailable CEM PHARMACY CLERK-CATHEAD WORKER, JACK A Primary Care Un available ARIEL WHITE MD Attending Unavailable ARIEL WHITE MD Consulting Unavailable CEM PHARMACY CLERK-CATHEAD WORKER, JACK A Primary Care Un available CEM PHARMACY CLERK-CATHEAD WORKER, JACK A Attending Un available CEM PHARMACY CLERK-CATHEAD WORKER, JACK A Primary Care Un available CEM PHARMACY CLERK-CATHEAD WORKER, JACK A Attending Un available CEM PHARMACY CLERK-CATHEAD WORKER, JACK A Attending Un available CEM PHARMACY CLERK-CATHEAD WORKER, JCAK A Primary Care Un available CEM PHARMACY CLERK-CATHEAD WORKER, JACK A Primary Care Un available CEM PHARMACY CLERK-CATHEAD WORKER, JACK A Attending Un available CEM PHARMACY CLERK-CATHEAD WORKER, JACK A Primary Care Un available KENNEN PHARMACY CLERK-CATHEAD WORKER, YASMINE Orona Attending Unavai lable CEM PHARMACY CLERK-CATHEAD WORKER, JACK A Primary Care Un available CEM PHARMACY CLERK-CATHEAD WORKER, JACK A Attending Un available CEM PHARMACY CLERK-CATHEAD WORKER, JACK A Primary Care Un available CEM PHARMACY CLERK-CATHEAD WORKER, JACK A Attending Un available CEM PHARMACY CLERK-CATHEAD WORKER, JACK A Primary Care Un available GORAN BOWENS MD Attending Unavail able CEM PHARMACY CLERK-CATHEAD WORKER, JACK A Primary Care Un available DARIAN NAVARRO MD Attending Unavailable CEM PHARMACY CLERK-CATHEAD WORKER, JACK A Primary Care Un available FREDDY GREEN DO Attending Unavailable MAMADOU GARCIA FACP, JOSE Allen Attending Unavail able MAMADOU GARCIA FACP, JOSE Allen Consulting Unavail able CEM PHARMACY CLERK-CATHEAD WORKER, JACK A Primary Care Un available ANDRES PHARMACY CLERK-CATHEAD WORKER, August Admitting Unavail able LINDY GREENFIELD DO Consulting Unavailable CEM PHARMACY CLERK-CATHEAD WORKER, JACK Subramanian Attending Un available CEM PHARMACY CLERK-CATHEAD WORKER, JACK A Primary Care Un available Care Physician, No Primary Primary Care Unava ilable Levon Ennis Attending Unavailable Cem MULTIMEDIA ASSISTANT, [place] Primary Care Unavailabl e Cem MULTIMEDIA ASSISTANT, [place] Referring Unavailabl e ScottMarquita kebede Attending Unavailable Care Physician, No Primary Primary Care Unava ilable Nicole Serra Attending Unavailable Cem MULTIMEDIA ASSISTANT, [place] Primary Care Unavailabl e Eugenio Muniz Attending Unavailable Care Physician, No Primary Primary Care Unava ilable Dario Alejandre Referring Unavailable Dario Alejandre Attending Unavailable Care Physician, No Primary Primary Care Unava ilable Care Physician, No Primary Referring Unava ilable Dario Alejandre Attending Unavailable Care Physician, No Primary Primary Care Unava ilable Care Physician, No Primary Referring Unava ilable Kole Tavarez Attending Unavailable Cem MULTIMEDIA ASSISTANT, Jack Referring Unavailabl e Marquita Chavez Attending Unavailable Cem MULTIMEDIA ASSISTANT, [facility] Unavailabl e Cem MULTIMEDIA ASSISTANT, [facility] Unavailabl e Cem MULTIMEDIA ASSISTANT, [place] Referring Unavailabl e Andrea Campos Attending Unavailable Cem MULTIMEDIA ASSISTANT, [facility] Unavailabl e Elroy Tristanmed Moris Referring Unavailable Elroy Tristanmed Moris Attending Unavailable Care Physician, No Primary Primary Care Unava ilable Kole Tavarez Referring Unavailable Kole Tavarez Attending Unavailable Maverick Erickson Attending Unavailable Cem MULTIMEDIA ASSISTANT, [facility] Unavailabl e Cem MULTIMEDIA ASSISTANT, [place] Referring Unavailabl e Cem MULTIMEDIA ASSISTANT, Jack Attending Unavailabl e Cem MULTIMEDIA ASSISTANT, [facility] Unavailabl e Marquita Chavez Referring Unavailable Cem MULTIMEDIA ASSISTANT, [facility] Unavailabl e Marquita Chavez Attending Unavailable Smith Hansen Referring Unavailable Smith Hansen Attending Unavailable Cem MULTIMEDIA ASSISTANT, [facility] Unavailabl e ScottMarquita kebede Attending Unavailable Cem MULTIMEDIA ASSISTANT, [facility] Unavailabl e ScottMarquita kebede Referring Unavailable Cem MULTIMEDIA ASSISTANT, [place] Referring Unavailabl e Marquita Chavez Attending Unavailable Cem MULTIMEDIA ASSISTANT, [facility] Unavailabl e ScottMarquita kebede Referring Unavailable Cem MULTIMEDIA ASSISTANT, [facility] Unavailabl e Marquita Chavez Attending Unavailable [place], Andrea Referring Unavailable [place], Andrea Attending Unavailable Cem MULTIMEDIA ASSISTANT, [facility] Care Unavailabl e Scott, Marquita Referring Unavailable Scott, Marquita Attending Unavailable Cem MULTIMEDIA ASSISTANT, [place] Primary [facility] Unavailabl e Care Physician, No Primary Primary Care Unava ilable OOTDR DOMINGO Referring Unavailable OOTDR DOMINGO Attending Unavailable Maverick Erickson Referring Unavailable ScottMarquita Attending Unavailable Cem MULTIMEDIA ASSISTANT, [facility] Unavailabl e Scott, Marquita Referring Unavailable Scott, Marquita Attending Unavailable Cem MULTIMEDIA ASSISTANT, [facility] Unavailabl e Scott, Marquita Referring Unavailable Scott, Marquita Attending Unavailable Cem MULTIMEDIA ASSISTANT, [facility] Unavailabl e Enid, Harvinder Attending Unavailable Cem MULTIMEDIA ASSISTANT, [facility] Unavailabl e Friend, Maverick Attending Unavailable Cem MULTIMEDIA ASSISTANT, Jack Referring Unavailabl e Cem MULTIMEDIA ASSISTANT, [place] Primary [facility] Unavailabl e Care Physician, No Primary Referring Unava ilable Care Physician, No Primary Primary Care Unava ilable Dario Alejandre Attending Unavailable Allergies Allergy Classification Reported Allergen(s) Allergy Type Date of Onset Reaction(s) Facility Macrolides (antibiotic) (2 sources) Azithromycin Drug Allergy 06-28-19 22 Hives, Itching [facility] Penicillins (antibiotic) (2 sources) Amoxicillin Drug Allergy 05-30-19 21 Hives, Unknown [facility] Serotonin Reuptake Inhibitors (SSRIs) (1 source) traZODone Drug Allergy 11-15-19 23 Other: See Comments [facility] (20 sources) Amoxicillin; Translations: [AMOXICILLIN] Drug Allergy 03-22-20 22 Hives, Penicillin -class of antibiotic- (substance) [facility] Work Phone: (20 sources) Azithromycin; Translations: [azithromycin] Drug Allergy 03-22-20 22 Hives, Weal (disorder), Itching [facility] Work Phone: (20 sources) Clarithromycin; Translations: [CLARITHROMYCIN] Drug Allergy 06-28-19 22 Hives [facility] Work Phone: (20 sources) Penicillins; Translations: [PENICILLINS] Drug Intolerance 05-30-19 21 Hives, Unknown [facility] Work Phone: (11 sources) Erythromycin Drug Allergy 05-16-20 22 Upset Stomach [facility] (11 sources) Penicillins Allergy to substance 05-16-20 22 Upset Stomach [facility] (20 sources) traZODone; Translations: [trazodone] Drug Allergy 11-15-19 23 Suicidal thoughts (finding), Other: See Comments [facility] (20 sources) Penicillins; Translations: [penicillins] Drug allergy Weal (disorder) [facility] (20 sources) metroNIDAZOLE; Translations: [metronidazole] Drug Allergy 07-02-19 25 Eruption of skin (disorder), Rash [facility] (20 sources) Sulfamethoxazole / Trimethoprim; Translations: [sulfamethoxazole-t rimethoprim] Drug Allergy 07-02-19 25 Eruption of skin (disorder), Rash [facility] (3 sources) Sulfamethoxazole / Trimethoprim; Translations: [SULFAMETHOXAZOLE-T RIMETHOPRIM] Drug Allergy 07-02-19 25 [facility] Other [facility] (10 sources) Penicillins Drug Allergy 05-30-19 21 Hives, Unknown [facility] (1 source) Amoxicillin Drug Allergy 09-16-19 25 [facility] (1 source) Azithromycin Drug Allergy 09-16-19 25 [facility] (1 source) Erythromycin Drug Allergy 09-16-19 25 [facility] (1 source) metroNIDAZOLE Drug Allergy 09-16-19 25 [facility] (1 source) Penicillins Drug allergy (disorder) 09-16-19 25 [facility] (1 source) Sulfamethoxazole Drug Allergy 09-16-19 25 [facility] (1 source) traZODone Drug Allergy 09-16-19 25 [facility] (1 source) Trimethoprim Drug Allergy 09-16-19 25 [facility] Repository Medications Current Medications Medication Drug Class(es) Dates Sig (Normalized) Sig (Original) acetaminophen 500 mg oral tablet (20 sources) Start: 01-22-2024 End: 05-23-2024 take 500-1000 mg by mouth every six hours as needed acetaminophen (TYLENOL EXTRA STRENGTH) 500 mg tablet Take 1-2 tablets by mouth every 6 hours as needed for pain. Two (2) X 500 mg tablets = 1,000 mg 100 tablet 01/22/2024 Active Start: 01-22-2024 End: 01-22-2024 take 1 dose by mouth once as needed for pain 650 mg, ORAL, PRE-OP ONCE, 1 dose, On Sun01/22/24 at 0730, If ordered PRN for pain, patient/guardian may elect to receive this medication for higher pain levels INSTEAD of the opioid, if preferred: Yes, Preprocedure acetaminophen 325 mg / HYDROcodone bitartrate 5 mg oral tablet (1 source) Opioid Agonist Start: 05-04-2024 End: 05-07-2024 take 1 tablet by mouth every six hours as needed for pain [place] 325- 5 mg oral tablet Dose = 1 tab(s), Oral, q6h, PRN for pain, Do not take with naltrexone, X 3 day(s), # 12 tab(s), 0 Refill(s), Abdominal pain, 103.5 Start Date: 05/04/24 Stop Date: 05/07/24 Status: Ordered Quantity: 12.0 Unit: tab(s) Repeat number: 1 Indication: Unspecified abdominal pain acetaminophen 325 mg / oxyCODONE hydrochloride 5 mg oral tablet (1 source) Opioid Agonist Start: 04-25-2024 End: 05-02-2024 take 1 tablet by mouth every six hours as needed for pain Percocet 5 mg-325 mg oral tablet Dose = 1 tab(s), Oral, q6hr, PRN for pain, hold naltrexone until pain medication completed not to exceed 4000 mg acetaminophen per day, X 7 day(s), # 20 tab(s), 0 Refill(s), Pharmacy: [facility], Postoperative pain, 159, cm, 04/25/24 6:31:00 EST, Height, 101, kg, 04/25/24 6:31:00 EST, Dosing Weight Start Date: 04/25/24 Stop Date: 05/02/24 Status: Ordered albuterol 0.83 mg/ml inhalation solution (20 sources) beta2-Adrenerg ic Agonist Start: 02-28-2023 End: 12-10-2023 take 1 dose by inhalation every six hours as needed albuterol 2.5 mg/3 mL (0.083%) inhalation solution Dose : 2.5 mg = 3 mL, Inhalation, q6h, PRN as needed for wheezing, # 100 EA, 1 Refill(s), Pharmacy: [id number], Asthma Pneumonia, 159.5, cm, 10/24/22 15:50:00 EDT, Height, kg, 02/28/23 11:25:00 EDT, Dosing Weight Start Date: 02/28/23 Stop Date: 04/29/23 Status: Ordered Start: 02-26-2023 End: 12-07-2023 take 2 puff(s) by inhalation every four hours as needed albuterol HFA (PROVENTIL HFA, VENTOLIN HFA) 90 mcg/actuation inhaler Inhale 2 Puffs as instructed every 4 hours as needed. 1 Each 02/26/2023 12/07/2023 Discontinued End: 12-07-2023 albuterol (PROVENTIL) 2.5 mg /3 mL (0.083 %) nebulizer solution As Directed 12/07/2023 Discontinued Comment on above: As Directed Inhale 2 Puffs as in structed every 4 hours as needed. albuterol MDI (90 mcg/inh) CFC free inhalation aerosol (2 sources) Start: 02-16-20 take 2 puff(s) by inhalation every six hours as needed for wheezing albuterol MDI (90 mcg/inh) CFC free inhalation aerosol 2 puff(s), Inhalation, q6hr, PRN as needed for wheezing, # 18 gram(s), 3 Refill(s), Pharmacy: [id number], Asthma, 159.5, cm, 10/24/22 15:50:00 EDT, Height, kg, 02/15/23 13:05:00 EDT, Dosing Weight Start Date: 02/15/23 Status: Ordered aspirin 81 mg delayed release oral tablet (1 source) Platelet Aggregation Inhibitor, Nonsteroidal Anti-inflammatory Drug Start: 12-26-19 aspirin 81 mg oral delayed release tablet Dose : 81 mg = 1 tab(s), Oral, Daily, 0 Refill(s) Start Date: 12/26/23 Status: Ordered benzonatate 100 mg oral capsule (20 sources) Non-narcotic Antitussive Start: 02-27-20 End: 03-05-20 Tessalon Perles 100 mg oral capsule Dose : 100 mg = 1 cap(s), Oral, TID, PRN as needed for cough, X 7 day(s), # 21 cap(s), 0 Refill(s), 03/05/24 11:31:00 AM EDT, Pharmacy: [facility], Cough, 158, cm, 02/27/24 10:40:00 EDT, Height, kg, 02/27/24 10:40:00 EDT, Dosing Weight Start Date: 02/27/24 Stop Date: 03/05/24 Status: Ordered Start: 05-17-2023 End: 12-07-2023 take 2 capsules by mouth three times daily as needed benzonatate (TESSALON PERLE) 100 mg capsule Indications: URI, acute Take 2 capsules by mouth three times a day as needed. 30 capsule 05/17/2023 12/07/2023 Discontinued Start: 03-19-2023 take 200 mg by mouth three times daily Benzonatate Active 200 MG PO THREE TIMES A DAY March 19, 2023 12:00am Comment on above: Take 2 capsules by m outh three times a day as needed. Blood Glucose Test Machine (3 sources) Start: Blood Glucose Test Machine See Instructions, Use glucometer daily as directed for blood sugar checks. Dispense insurance preferred device, # 1 EA, 0 Refill(s), Pharmacy: [facility], Hyperglycemia, 157.5, cm, 09/10/24 16:27:00 EDT, Height, 99.2, kg, 09/10/24 16:27:00 EDT, Dosing Weight Start Date: 09/10/24 Status: Ordered Quantity: 1.0 Unit: EA Repeat number: 1 Indications: Hyperglycemia, unspecified; CBD Oil (5 sources) Start: 023 CBD Oil Active TOPICAL January 18, 2023 12:00am cefdinir 300 mg oral capsule (1 source) Cephalosporin Antibacterial Start: 024 End: cefdinir 300 mg oral capsule Dose : 300 mg = 1 cap(s), Oral, q12h, X 7 day(s), # 14 cap(s), 0 Refill(s), 05/16/24 5:05:00 PM EST, Pharmacy: [facility], Vaginal discharge, 159, cm, 05/09/24 15:56:00 EST, Height, 103.1, kg, 05/09/24 15:56:00 EST, Dosing Weight Start Date: 05/09/24 Stop Date: 05/16/24 Status: Ordered Quantity: 14.0 Unit: cap(s) Repeat number: 1 Indication: Other specified noninflammatory disorders of vagina cetirizine hydrochloride 10 mg oral tablet (3 sources) Histamine-1 Receptor Antagonist Start: End: Zyrtec 10 mg oral tablet Dose : 10 mg = 1 tab(s), Oral, qDay, # 30 tab(s), 2 Refill(s), Pharmacy: [facility], Allergic rhinitis, 158, cm, 03/12/24 13:02:00 EDT, Height, kg, 03/12/24 13:02:00 EDT, Dosing Weight Start Date: 03/12/24 Stop Date: 06/10/24 Status: Ordered cholecalciferol 1.25 mg oral capsule (20 sources) Vitamin D Start: take 1 capsule by mouth every week cholecalciferol, Vitamin D3, (VITAMIN D3) 1,250 mcg (50,000 unit) cap capsule Indications: Vitamin D deficiency Take 1 capsule by mouth one time a week. 8 capsule 10/01/2023 Active clindamycin 150 mg oral capsule (2 sources) Lincosamide Antibacterial Start: take 450 mg by mouth three times daily Clindamycin Hcl Active 450 MG PO THREE TIMES A DAY 90 May 16, 2022 1:00am colestipol hydrochloride 1000 mg oral tablet (20 sources) Bile Acid Sequestrant Start: colestipol 1 g oral tablet Dose : 2 gram(s) = 2 tab(s), Oral, BID, # 120 tab(s), 0 Refill(s) Start Date: 10/01/23 Status: Ordered Start: 10-01-2023 End: 01-18-2024 take 2 tablets by mouth twice daily colestipol (COLESTID) 1 gram tablet Take 2 g by mouth two times a day. 10/01/2023 01/18/2024 Discontinued Start: 08-30-2023 End: 12-24-2023 take 5 g by mouth twice daily Colestipol HCl 5 gram gr anules Indications: Irritable bowel syndrome with diarrhea Take 5 g by mouth two times a day. 60 Packet 08/30/2023 09/25/2023 Discontinued Comment on above: Take 5 g by mouth tw o times a day. CPAP Supplies (3 sources) Start: 06-06-2024 CPAP Supplies See Instructions, Full setup (mask/tubing/water res) CPAP pressure of 16 cm of water with ResMed P10 size medium and heated humidity, # 1 EA, 0 Refill(s), 105.1 Start Date: 06/06/24 Status: Ordered Quantity: 1.0 Unit: EA Repeat number: 1 docusate sodium 50 mg / sennosides, fci 8.6 mg oral tablet (1 source) Start: 05-26-2024 End: 06-25-2024 take 1 tablet by mouth twice daily Senokot S 50 mg-8.6 mg oral tablet Dose = 1 tab(s), Oral, BID, X 30 day(s), # 60 tab(s), 0 Refill(s), [place] [facility] [place], 159, cm, 05/19/24 15:53:00 EST, Height, kg, 05/19/24 15:53:00 EST, Dosing Weight Start Date: 05/26/24 Stop Date: 06/25/24 Status: Ordered Quantity: 60.0 Unit: tab(s) Repeat number: 1 doxycycline hyclate 100 mg oral capsule (10 sources) Tetracycline-cl ass Drug Start: 05-09-2024 End: 05-19-2024 doxycycline hyclate 100 mg oral capsule Dose : 100 mg = 1 cap(s), Oral, BID, X 10 day(s), # 20 cap(s), 0 Refill(s), 05/19/24 4:58:00 PM EST, Pharmacy: [id number], Vaginal discharge, 159, cm, 05/09/24 15:56:00 EST, Height, 103.1, kg, 05/09/24 15:56:00 EST, Dosing Weight Start Date: 05/09/24 Stop Date: 05/19/24 Status: Ordered Quantity: 20.0 Unit: cap(s) Repeat number: 1 Indication: Other specified noninflammatory disorders of vagina Start: 02-29-2024 End: 03-10-2024 doxycycline hyclate 100 mg o ral capsule Dose : 100 mg = 1 cap(s), Oral, q12h, X 10 day(s), # 20 cap(s), 0 Refill(s), 03/10/24 9:10:00 AM EDT, Pharmacy: [facility], Sinusitis Bilateral otitis media, 158, cm, 02/27/24 10:40:00 EDT, Height, 104.1, kg, 02/29/24 8:48:00 EDT, Dosing Weight Start Date: 02/29/24 Stop Date: 03/10/24 Status: Ordered Start: 09-27-2023 End: 10-04-2023 take 1 tablet by mouth twice daily doxycycline (VIBRA-TABS) 100 mg tablet Indications: Respiratory tract infection Take 1 tablet by mouth two times a day for 7 days. 14 tablet 0 09/27/2023 10/04/2023 Active Start: 02-24-2023 End: 03-18-2023 take 100 mg by mouth twice daily Doxycycline Hyclate Discontinued 100 MG PO TWICE A DAY 14 7 February 24, 2023 12:00am March 18, 2023 4:33pm etonogestrel 68 mg drug implant (15 sources) Progestin Start: 12-19-2023 inject 1 dose by subcutaneous injection once Nexplanon 68 mg subcutaneous implant Dose : 68 mg = 1 EA, Subcutaneous, Once, 0 Refill(s) Start Date: 12/19/23 Status: Ordered Start: 12-07-2023 End: 01-18-2024 etonogestrel (NEXPLANON) 68 mg impl subdermal implant 1 Each by SUBDERMAL route one time only for 1 dose. 1 Each 12/07/2023 01/18/2024 Discontinued Start: 12-07-2023 End: 12-07-2023 etonogestrel subdermal impla nt 68 mg (NEXPLANON) Start: 12-07-2023 End: 12-07-2023 etonogestrel subdermal impla nt 68 mg (NEXPLANON) famotidine 20 mg oral tablet (6 sources) Histamine-2 Receptor Antagonist Start: 10-15-2024 End: 01-13-2025 famotidine 20 mg oral tablet Dose : 20 mg = 1 tab(s), Oral, BID, PRN stomach upset, # 60 tab(s), 2 Refill(s), Pharmacy: [facility], Chronic nausea, 157.5, cm, 10/15/24 15:38:00 EDT, Height, kg, 10/15/24 15:38:00 EDT, Dosing Weight Start Date: 10/15/24 Stop Date: 01/13/25 Status: Ordered Quantity: 60.0 Unit: tab(s) Repeat number: 3 Indications: Nausea; Start: 05-09-2024 End: 05-23-2024 Pepcid 20 mg oral tablet Dos e : 20 mg = 1 tab(s), Oral, BID, # 28 tab(s), 0 Refill(s), Pharmacy: [id number], Allergic dermatitis, 159, cm, 05/09/24 15:56:00 EST, Height, kg, 05/09/24 15:56:00 EST, Dosing Weight Start Date: 05/09/24 Stop Date: 05/23/24 Status: Ordered Quantity: 28.0 Unit: tab(s) Repeat number: 1 Indication: Allergic contact dermatitis, unspecified cause ferrous sulfate 325 mg oral tablet (12 sources) Start: 04-16-2024 End: 02-14-2025 ferrous sulfate 325 mg (65 m g elemental iron) oral tablet Dose : 325 mg = 1 tab(s), Oral, BID, increased dose to BID, # 180 tab(s), 1 Refill(s), Pharmacy: [facility], Iron deficiency, 157.5, cm, 08/01/24 12:59:00 EDT, Height, kg, 08/01/24 12:59:00 EDT, Dosing Weight Start Date: 08/18/24 Stop Date: 02/14/25 Status: Ordered Quantity: 180.0 Unit: tab(s) Repeat number: 2 Indications: Iron deficiency; flax seed oil 1000 mg oral capsule (18 sources) Start: 08-18-2024 End: 02-14-2025 flax seed oil 1000 mg oral capsule Dose : 1,000 mg = 1 cap(s), Oral, qDay, Decreased dose to once daily, # 90 cap(s), 1 Refill(s), HLD (hyperlipidemia) Start Date: 08/18/24 Stop Date: 02/14/25 Status: Ordered Quantity: 90.0 Unit: cap(s) Repeat number: 2 Indications: Hyperlipidemia, unspecified; Start: 04-23-2024 End: 10-20-2024 flax seed oil 1000 mg oral c apsule Dose : 1,000 mg = 1 cap(s), Oral, qDay, # 90 cap(s), 1 Refill(s), HLD (hyperlipidemia) Start Date: 04/23/24 Stop Date: 10/20/24 Status: Ordered Quantity: 90.0 Unit: cap(s) Repeat number: 2 Indication: Hyperlipidemia, unspecified Start: 04-23-2024 End: 10-20-2024 flax seed oil 1000 mg oral c apsule Dose : 1,000 mg = 1 cap(s), Oral, qDay, # 90 cap(s), 1 Refill(s), HLD (hyperlipidemia) Start Date: 04/23/24 Stop Date: 10/20/24 Status: Ordered Start: 01-02-2024 End: 06-30-2024 flax seed oil 1000 mg oral c apsule Dose : 1,000 mg = 1 cap(s), Oral, BID, # 60 cap(s), 5 Refill(s), HLD (hyperlipidemia) Start Date: 01/02/24 Stop Date: 06/30/24 Status: Ordered Flaxseed Oil oil (20 sources) take 1 capsule by [facility] twice daily Flaxseed Oil oil Take 1 capsule by mouth two times a day. Active Flaxseed Oil oil Active hydrOXYzine hydrochloride 25 mg oral tablet (20 sources) Antihistamine Start: 04-11-2024 hydrOXYzine hy drochloride 25 mg oral tablet Dose : 25 mg = 1 tab(s), Oral, QID, PRN for anxiety, # 40 tab(s), 0 Refill(s) Start Date: 04/11/24 Status: Ordered Quantity: 40.0 Unit: tab(s) Repeat number: 1 Start: 07-24-2023 hydrOXYzine hy drochloride 25 mg oral tablet Dose : 25 mg = 1 tab(s), Oral, QID, PRN as needed for anxiety, # 40 tab(s), 0 Refill(s) Start Date: 07/24/23 Status: Ordered Start: 04-13-2023 take 0.5 tablet by m outh four times daily as needed for anxiety hydrOXYzine HCl (ATARAX) 25 mg tablet TAKE 1/2 TABLET BY MOUTH 4 TIMES A DAY NEEDED FOR ANXIETY, IF TOLERATED WITHOUT EXCESSIVE TIREDNESS CAN TAKE FULL TAB 04/13/2023 Active Start: 10-14-2022 End: 01-18-2023 take 1 capsule by mouth twice daily Hydroxyzine Pamoate (Vistaril) 50 mg capsule Discontinued 50 MG PO TWICE A DAY October 14, 2022 12:00am January 18, 2023 8:49am Start: 09-22-2022 End: 12-13-2022 take 1-2 capsules by mouth three times daily as needed for anxiety Hydroxyzine Pamoate Discontinued 50 MG PO 3 TIMES DAILY NEEDED September 22, 2022 12:00am December 13, 2022 6:13am 1-2 capsule up to 3 times daily as needed for anxiety. Comment on above: TAKE 1/2 TABLET BY M OUTH 4 TIMES A DAY NEEDED FOR ANXIETY, IF TOLERATED WITHOUT EXCESSIVE TIREDNESS CAN TAKE FULL TAB ibuprofen 800 mg oral tablet (9 sources) Nonsteroidal Anti-inflammatory Drug Start: 04-25-2024 End: 05-09-2024 ibuprofen 800 mg oral tablet Dose : 800 mg = 1 tab(s), Oral, q8h, X 14 day(s), # 42 tab(s), 0 Refill(s), 05/09/24 7:27:00 AM EST, [place] [facility] [place], 159, cm, 04/25/24 6:31:00 EST, Height, kg, 04/25/24 6:31:00 EST, Dosing Weight Start Date: 04/25/24 Stop Date: 05/09/24 Status: Ordered Quantity: 42.0 Unit: tab(s) Repeat number: 1 Start: 01-18-2023 take 600 mg by mouth every eight hours Ibuprofen Active 600 MG PO Q8H January 18, 2023 12:00am itraconazole 10 mg/ml oral solution (16 sources) Azole Antifungal Start: 07-30-2024 take 20 mL by mouth twice daily itraconazole (SPORANOX) 10 mg/mL solution Indications: Histoplasmosis , 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 1200 mL 2 07/30/2024 Active ketoconazole 20 mg/ml medicated shampoo (20 sources) Azole Antifungal Start: 04-11-2024 ketoconazole 2% topical shampoo Apply 1 leola, Topical, qWeek, # 120 mL, 0 Refill(s), Shampoo, 104.1 Start Date: 04/11/24 Status: Ordered Quantity: 120.0 Unit: mL Repeat number: 1 Start: 01-04-2024 ketoconazole ( NIZORAL) 2 % shampoo Apply 1 Application to affected area two times a week. 01/04/2024 Active loratadine 10 mg oral tablet (4 sources) Start: 05-09-2024 End: 06-20-2024 loratadine 10 mg oral tablet Dose : 10 mg = 1 tab(s), Oral, qDay, # 14 tab(s), 2 Refill(s), Pharmacy: [id number], Allergic dermatitis, 159, cm, 05/09/24 15:56:00 EST, Height, kg, 05/09/24 15:56:00 EST, Dosing Weight Start Date: 05/09/24 Stop Date: 06/20/24 Status: Ordered Quantity: 14.0 Unit: tab(s) Repeat number: 3 Indication: Allergic contact dermatitis, unspecified cause magnesium hydroxide 400 mg chewable tablet (18 sources) Start: 01-02-2024 End: 04-16-2025 magnesium hydroxide 400 mg oral tablet, chewable Dose : 400 mg = 1 EA, Oral, qDay, patient would like these added to her pill pack, # 90 EA, 3 Refill(s), Pharmacy: [facility], Constipation, 159, cm, 04/16/24 7:17:00 EST, Height, kg, 04/16/24 7:17:00 EST, Dosing Weight Start Date: 04/21/24 Stop Date: 04/16/25 Status: Ordered Quantity: 90.0 Unit: EA Repeat number: 4 Indications: Constipation, unspecified; Magnesium Oxide (20 sources) take 1 tablet by mouth once daily magnesium oxide (MAG-OXIDE ORAL) Take 1 tablet by mouth once daily. Active magnesium oxide (MAG-OXIDE ORAL) Take by mouth. Active metFORMIN hydrochloride 500 mg oral tablet (1 source) Biguanide Start: 02-29-2024 End: 03-30-2024 MetFORMIN (Eqv-Glucophage XR) 500 mg oral tablet, EXTENDED RELEASE Dose : 500 mg = 1 tab(s), Oral, qDay, # 30 tab(s), 0 Refill(s), Pharmacy: [facility] [place], Insulin resistance syndrome, 158, cm, 02/27/24 10:40:00 EDT, Height, kg, 02/29/24 8:48:00 EDT, Dosing Weight Start Date: 02/29/24 Stop Date: 03/30/24 Status: Ordered metroNIDAZOLE 500 mg oral tablet (1 source) Nitroimidazole Antimicrobial Start: 05-05-2024 End: 05-19-2024 metroNIDAZOLE 500 mg oral tablet Dose : 500 mg = 1 tab(s), Oral, q12h, X 14 day(s), # 28 tab(s), 0 Refill(s), 05/19/24 1:12:00 PM EST, Pharmacy: [facility] [place], 159, cm, 05/05/24 12:58:00 EST, Height, 104.5, kg, 05/05/24 12:58:00 EST, Dosing Weight Start Date: 05/05/24 Stop Date: 05/19/24 Status: Ordered Quantity: 28.0 Unit: tab(s) Repeat number: 1 montelukast 10 mg oral tablet (20 sources) Leukotriene Receptor Antagonist Start: 03-05-2023 End: 04-04-2023 montelukast 10 mg oral tablet Dose : 10 mg = 1 tab(s), Oral, qDay, # 30 tab(s), 0 Refill(s), Pharmacy: [id number], Asthma, 59.5, cm, 03/05/23 11:42:00 EDT, Height, kg, 03/05/23 11:42:00 EDT, Dosing Weight Start Date: 03/05/23 Stop Date: 04/04/23 Status: Ordered End: 12-07-2023 take 1 tablet by mouth once daily montelukast chewable (SINGULAIR) 4 mg tablet Take 4 mg by mouth once daily. 12/07/2023 Discontinued Comment on above: Take 4 mg by mouth o nce daily. naltrexone hydrochloride 50 mg oral tablet (20 sources) Opioid Antagonist Start: 4 take 1 tablet by mouth once daily naltrexone 50 mg tablet Take 50 mg by mouth once daily. 12/19/2023 Active naproxen 500 mg oral tablet (3 sources) Nonsteroidal Anti-inflammatory Drug Start: 3 take 500 mg by mouth twice daily Naproxen Active 500 MG PO TWICE A DAY March 18, 2023 12:00am nitrofurantoin, macrocrystals 25 mg / nitrofurantoin, monohydrate 75 mg oral capsule (15 sources) Nitrofuran Antibacterial Start: End: 4 Macrobid 100 mg oral capsule Dose : 100 mg = 1 cap(s), Oral, BID, Take with food, X 7 day(s), # 14 cap(s), 0 Refill(s), 05/10/24 11:11:00 AM EST, Pharmacy: [id number], 159, cm, 05/02/24 15:02:00 EST, Height, 103.5, kg, 05/02/24 15:02:00 EST, Dosing Weight Start Date: 05/03/24 Stop Date: 05/10/24 Status: Ordered Quantity: 14.0 Unit: cap(s) Repeat number: 1 Start: 12-26-2023 End: 01-02-2024 nitrofurantoin macrocrystals -monohydrate 100 mg oral capsule Dose : 100 mg = 1 cap(s), Oral, BID, Take with food, X 7 day(s), # 14 cap(s), 0 Refill(s), 01/02/24 12:14:00 PM EDT, Pharmacy: [facility], Urinary frequency, 158, cm, 12/26/23 10:31:00 EDT, Height, 104, kg, 12/26/23 10:31:00 EDT, Dosing Weight Start Date: 12/26/23 Stop Date: 01/02/24 Status: Ordered Start: 03-09-2023 End: 03-18-2023 take 1 capsule by mouth every twelve hours at mealtime Nitrofurantoin Monohyd/M-Cryst Discontinued 1 CAP PO Q12H 14 7 March 09, 2023 12:00am March 09, 2023 7:35pm administer with a meal/food; swallow whole; do not open, crush, dissolve , or chew ondansetron 4 mg disintegrating oral tablet (20 sources) Serotonin-3 Receptor Antagonist Start: 01-22-2024 End: 11-09-2024 take 1 tablet by mouth every eight hours as needed ondansetron orally disintegrating (ZOFRAN ODT) 4 mg disintegrating tablet Take 1 tablet by mouth every 8 hours as needed. 10 tablet 01/22/2024 Active Start: 01-22-2024 End: 01-23-2024 4 mg, INTRAVENOUS, NEEDED , 1 dose, Starting on Sun01/22/24 at 1105, Until Sun01/23/24 at 0304, Nausea/Vomiting - First Line - Parenteral oxyCODONE hydrochloride 5 mg oral tablet (6 sources) Opioid Agonist Start: 01-22-2024 End: 01-27-2024 take 1 tablet by mouth every six hours as needed for pain oxyCODONE IR (ROXICODONE) 5 mg immediate release tablet Indications: Acute post-operative pain Take 1 tablet by mouth every 6 hours as needed for pain for up to 5 days. 15 tablet 01/22/2024 01/27/2024 Active pantoprazole 40 mg delayed release oral tablet (12 sources) Proton Pump Inhibitor Start: 08-18-2024 pantoprazole 40 mg oral enteric coated tablet Dose : 40 mg = 1 tab(s), Oral, qDay, # 90 tab(s), 3 Refill(s), Pharmacy: [facility], Chronic nausea, 157.5, cm, 08/01/24 12:59:00 EDT, Height, kg, 08/01/24 12:59:00 EDT, Dosing Weight Start Date: 08/18/24 Status: Ordered Quantity: 90.0 Unit: tab(s) Repeat number: 4 Indications: Nausea; Start: 04-16-2024 End: 07-15-2024 pantoprazole 40 mg oral ente reshma coated tablet Dose : 40 mg = 1 tab(s), Oral, qDay, # 90 tab(s), 0 Refill(s), Pharmacy: [facility], Chronic nausea, 159, cm, 04/16/24 7:17:00 EST, Height, kg, 04/16/24 7:17:00 EST, Dosing Weight Start Date: 04/16/24 Stop Date: 07/15/24 Status: Ordered Quantity: 90.0 Unit: tab(s) Repeat number: 1 Indication: Nausea prazosin 1 mg oral capsule (20 sources) alpha-Adrenergic Sonal Start: 05-09-2024 prazo sin 1 mg oral capsule Dose : 1 mg = 1 cap(s), Oral, TID, # 90 cap(s), 0 Refill(s) Start Date: 05/09/24 Status: Ordered Quantity: 90.0 Unit: cap(s) Repeat number: 1 Start: 02-27-2024 prazosin 2 mg oral capsule Dose : 2 mg = 1 cap(s), Oral, qHS, 0 Refill(s) Start Date: 02/27/24 Status: Ordered Repeat number: 1 Start: 01-02-2024 take 2 capsules by m outh once daily prazosin (MINIPRESS) 1 mg cap Take 2 mg by mouth once daily. 01/02/2024 Active Start: 01-02-2024 take 1 capsule by mo uth once daily prazosin (MINIPRESS) 1 mg cap Take 1 mg by mouth once daily. 01/02/2024 Active predniSONE 20 mg oral tablet (6 sources) Start: 02-27-2024 Deltasone 20mg tab (TAPER) 0 Refill(s) Start Date: 02/27/24 Status: Ordered Start: 02-26-2024 End: 03-02-2024 take 2 tablets by mouth once daily predniSONE (DELTASONE) 20 mg tablet Indications: Sore throat Take 2 tablets by mouth once daily for 5 days. 10 tablet 02/26/2024 03/02/2024 Active Start: 08-03-2023 End: 08-08-2023 take 2 tablets by mouth once daily predniSONE (DELTASONE) 20 mg tablet Indications: URI, acute , Acute cough Take 2 tablets by mouth once daily for 5 days. 10 tablet 0 08/03/2023 08/08/2023 Active Comment on above: Take 2 tablets by mo uth once daily for 5 days. Prescription MISCellaneous (20 sources) Start: 08-01-2024 Prescription MISCellaneous See Instructions, Ensure high protein (or similar insurance preferred substitute), 8oz twice daily x30 days, 60 bottles with 11 refills., # 1 EA, 11 Refill(s), Chronic nausea Weight loss, 96.9 Start Date: 08/01/24 Status: Ordered Quantity: 1.0 Unit: EA Repeat number: 12 Indications: Nausea; Abnormal weight loss; Start: 06-22-2023 Prescription M ISCellaneous See Instructions, Deep tissue massage once weekly x4 weeks for chronic migraines., # 4 EA, 0 Refill(s), Migraines, 104.9 Start Date: 06/22/23 Status: Ordered Quantity: 4.0 Unit: EA Repeat number: 1 Indications: Migraine, unspecified, not intractable, without status migrainosus; Start: 06-22-2023 Prescription M ISCellaneous See Instructions, Deep tissue massage once weekly x4 weeks for chronic migraines., # 4 EA, 0 Refill(s), Migraines, 104.9 Start Date: 06/22/23 Status: Ordered Quantity: 4.0 Unit: EA Repeat number: 1 Indication: Migraine, unspecified, not intractable, without status migrainosus Start: 06-22-2023 Prescription M ISCellaneous See Instructions, Deep tissue massage once weekly x4 weeks for chronic migraines., # 4 EA, 0 Refill(s), Migraines, 104.9 Start Date: 06/22/23 Status: Ordered 24 hr QUEtiapine 200 mg extended release oral tablet (20 sources) Atypical Antipsychotic Start: 09-10-2024 QUEtiap ine 200 mg oral tablet, extended release Dose : 200 mg = 1 tab(s), Oral, qDay, # 30 tab(s), 0 Refill(s) Start Date: 09/10/24 Status: Ordered Quantity: 30.0 Unit: tab(s) Repeat number: 1 Start: 12-19-2023 take 100 mg by mouth once daily at bedtime QUEtiapine XR (SEROQUEL XR) 50 mg Tb24 Take 100 mg by mouth daily at bedtime. 12/19/2023 Active Start: 12-19-2023 QUEtiapine 50 mg oral tablet, extended release Dose : 100 mg = 2 tab(s), Oral, qDay, # 30 tab(s), 0 Refill(s) Start Date: 12/19/23 Status: Ordered Quantity: 30.0 Unit: tab(s) Repeat number: 1 semaglutide, weight loss, (WEGOVY) 0.25 mg/0.5 mL pen injector (2 sources) Start: 09-22-2024 End: 10-20-2024 semaglutide, weight loss, (WEGOVY) 0.25 mg/0.5 mL pen injector Indications: Class 2 severe obesity due to excess calories with serious comorbidity and body mass index (BMI) of 39.0 to 39.9 in adult (HCC) , Prediabetes Inject 0.25 mg subcutaneously one time a week for 28 days. 2 mL 09/22/2024 10/20/2024 Active sennosides, fci 8.6 mg oral tablet (1 source) Start: 05-26-2024 End: 07-19-2024 Senokot 8.6 mg oral tablet Dose : 8.6 mg = 1 tab(s), Oral, BID, PRN as needed for constipation, # 60 tab(s), 1 Refill(s), 07/19/24 8:00:00 AM EST, Pharmacy: [id number], 159, cm, 05/19/24 15:53:00 EST, Height, kg, 05/19/24 15:53:00 EST, Dosing Weight Start Date: 05/26/24 Stop Date: 07/19/24 Status: Ordered Quantity: 60.0 Unit: tab(s) Repeat number: 2 sertraline 100 mg oral tablet (20 sources) Serotonin Reuptake Inhibitor Start: 12-20-2023 Zoloft 100 mg oral tablet Dose : 100 mg = 1 tab(s), Oral, qDay, # 90 tab(s), 2 Refill(s), Pharmacy: [facility], Major depressive disorder, recurrent episode, severe with anxious distress, 158, cm, 12/19/23 8:04:00 EDT, Height, kg, 12/19/23 8:04:00 EDT, Dosing Weight Start Date: 12/20/23 Status: Ordered Start: 05-29-2023 Zoloft 100 mg oral tablet Dose : 100 mg = 1 tab(s), Oral, qDay, # 90 tab(s), 2 Refill(s), Pharmacy: [id number], Major depressive disorder, recurrent episode, severe with anxious distress, 160.5, cm, 05/29/23 9:49:00 EST, Height, kg, 05/29/23 9:49:00 EST, Dosing Weight Start Date: 05/29/23 Status: Ordered Start: 04-10-2023 End: 01-18-2024 take 2 tablets by mouth once daily sertraline (ZOLOFT) 50 mg tablet Take 100 mg by mouth once daily. 04/10/2023 01/18/2024 Discontinued Start: 04-10-2023 sertraline (ZO LOFT) 50 mg tablet sulfamethoxazole 800 mg / trimethoprim 160 mg oral tablet (1 source) Dihydrofolate Reductase Inhibitor Antibacterial, Sulfonamide Antimicrobial Start: 05-05-2024 End: 05-19-2024 take 1 tablet by mouth twice daily Bactrim DS 800 mg-160 mg oral tablet Dose = 1 tab(s), Oral, BID, X 14 day(s), # 28 tab(s), 0 Refill(s), Pharmacy: [facility], 159, cm, 05/05/24 12:58:00 EST, Height, 104.5, kg, 05/05/24 12:58:00 EST, Dosing Weight Start Date: 05/05/24 Stop Date: 05/19/24 Status: Ordered Quantity: 28.0 Unit: tab(s) Repeat number: 1 sumatriptan succ/naproxen sod (SUMATRIPTAN-NAPROXEN ORAL) (20 sources) sumatriptan succ/naproxen sod (SUMATRIPTAN-NAP ROXEN ORAL) Take 1 tablet by mouth as needed. Active sumatriptan succ /naproxen sod (SUMATRIPTAN-NAPROXEN ORAL) Active Vitamin D2 1.25 mg (50,000 intl units) oral capsule (20 sources) Start: 09-01-2024 End: 02-28-2025 take 1 capsule by mouth once, then take 1 capsule by mouth every week Vitamin D2 1.25 mg (50,000 intl units) oral capsule Dose : 50,000 International_Unit = 1 cap(s), Oral, qWeek, # 13 cap(s), 1 Refill(s), Pharmacy: [facility] [place], Vitamin D deficiency, 157.5, cm, 08/01/24 12:59:00 EDT, Height, kg, 08/01/24 12:59:00 EDT, Dosing Weight Start Date: 09/01/24 Stop Date: 02/28/25 Status: Ordered Quantity: 13.0 Unit: cap(s) Repeat number: 2 Indications: Vitamin D deficiency, unspecified; Start: 02-27-2024 End: 08-25-2024 take 1 capsule by mouth once, then take 1 capsule by mouth every week Vitamin D2 1.25 mg (50,000 intl units) oral capsule Dose : 50,000 International_Unit = 1 cap(s), Oral, qWeek, # 13 cap(s), 1 Refill(s), Pharmacy: [facility] [place], Vitamin D deficiency, 158, cm, 02/27/24 10:40:00 EDT, Height, kg, 02/27/24 10:40:00 EDT, Dosing Weight Start Date: 02/27/24 Stop Date: 08/25/24 Status: Ordered Quantity: 13.0 Unit: cap(s) Repeat number: 2 Indication: Vitamin D deficiency, unspecified Start: 02-27-2024 End: 08-25-2024 Vitamin D2 1.25 mg (50,000 i ntl units) oral capsule Dose : 50,000 International_Unit = 1 cap(s), Oral, qWeek, # 13 cap(s), 1 Refill(s), Pharmacy: [facility] [place], Vitamin D deficiency, 158, cm, 02/27/24 10:40:00 EDT, Height, kg, 02/27/24 10:40:00 EDT, Dosing Weight Start Date: 02/27/24 Stop Date: 08/25/24 Status: Ordered Start: 11-16-2023 End: 05-14-2024 Vitamin D2 1.25 mg (50,000 i ntl units) oral capsule Dose : 50,000 International_Unit = 1 cap(s), Oral, qWeek, # 13 cap(s), 1 Refill(s), Pharmacy: [id number], Vitamin D deficiency, 158, cm, 11/14/23 10:30:00 EDT, Height, kg, 11/14/23 10:30:00 EDT, Dosing Weight Start Date: 11/16/23 Stop Date: 05/14/24 Status: Ordered Vitamin D3 1250 mcg (50,000 intl units) oral capsule (2 sources) Start: 10-01-2023 Vitamin D3 125 0 mcg (50,000 intl units) oral capsule Dose : 1,250 mcg = 1 cap(s), Oral, qWeek, # 12 cap(s), 0 Refill(s) Start Date: 10/01/23 Status: Ordered Completed/Discontinued Medications Medication Drug Class(es) Dates Sig (Normalized) Sig (Original) Budesonide / formoterol (20 sources) Corticosteroid, beta2-Adrenergic Agonist Start: 05-17-2023 End: 12-07-2023 take 2 puff(s) by inhalation every six hours as needed budesonide-formoter ol (SYMBICORT) 80-4.5 mcg/actuation inhaler Indications: Wheezing , Chronic cough Inhale 2 Puffs as instructed every 6 hours as needed. 10.2 g 05/17/2023 12/07/2023 Discontinued Start: 05-17-2023 End: 12-07-2023 take 2 puff(s) by inhalation every six hours as needed budesonide-formoterol (SYMBICORT) 80-4.5 mcg/actuation inhaler Indications: Wheezing , Chronic cough Inhale 2 Puffs as instructed every 6 hours as needed. 10.2 g 0 05/17/2023 12/07/2023 Discontinued Start: 05-17-2023 take 2 puff(s) by in halation every six hours as needed budesonide-formoterol (SYMBICORT) 80-4.5 mcg/actuation inhaler Indications: Wheezing , Chronic cough Inhale 2 Puffs as instructed every 6 hours as needed. 10.2 g 0 05/17/2023 Active Comment on above: Inhale 2 Puffs as in structed every 6 hours as needed. calcium chloride 0.0014 meq/ml / potassium chloride 0.004 meq/ml / sodium chloride 0.103 meq/ml / sodium lactate 0.028 meq/ml injectable solution (4 sources) Start: End: take 100 mL intravenously every hour 100 mL/hr, INTRAVENOUS, CONTINUOUS, Starting on Sun01/22/24 at 1130, Until Sun01/23/24 at 0304 diphenhydrAMINE (3 sources) Histamine-1 Receptor Antagonist Start: 024 End: 024 50 mg, INTRAVENOUS, NEEDED, 1 dose, Starting on Sun01/22/24 at 1105, Until Sun01/23/24 at 0304, Nausea/Vomiting - Second Line - Parenteral Start: 01-22-2024 End: 01-23-2024 50 mg, INTRAVENOUS, NEEDE D, 1 dose, Starting on Sun01/22/24 at 1105, Until Sun01/23/24 at 0304, Nausea/Vomiting - Second Line - Parenteral Start: 01-22-2024 End: 01-22-2024 50 mg, INTRAVENOUS, NEEDE D, 1 dose, Starting on Sun01/22/24 at 1049, Until Sun01/22/24 at 1100, Nausea/Vomiting - Second Line - Parenteral docusate sodium 100 mg oral capsule (20 sources) Start: 01-22-2024 End: 04-14-2024 take 1 capsule by mouth twice daily docusate sodium (COLACE) 100 mg capsule Take 1 capsule by mouth two times a day. 20 capsule 01/22/2024 04/14/2024 Discontinued gabapentin 300 mg oral capsule (2 sources) Anti-epileptic Agent Start: 10-15-2024 End: 11-14-2024 gabapentin 300 mg oral capsule Dose : 300 mg = 1 cap(s), Oral, qDay, 0 Refill(s), 99.2 Start Date: 10/15/24 Stop Date: 11/14/24 Status: Ordered Repeat number: 1 0.5 ml HYDROmorphone hydrochloride 1 mg/ml prefilled syringe (2 sources) Opioid Agonist Start: 01-22-2024 End: 01-23-2024 0.2 mg, INTRAVENOUS, NEEDED, Starting on Sun01/22/24 at 1105, Until Sun01/23/24 at 0304, FIRST LINE THERAPY for moderate or severe pain, FIRST LINE THERAPY Every 15 minutes to Total Dose 0.4mg Hold for respiratory rate less then 12 USE FOR MODERATE PAIN ONLY IF PATIENT IS UNABLE TO TOLERATE ORAL THERAPY Caution: IV hydromorphone is approximately 8 times MORE POTENT than IV morphine. For example, hydromorphone 1mg IV = morphine 8mg IV Start: 01-22-2024 End: 01-23-2024 0.5 mg, INTRAVENOUS, EVERY 1 0 MINUTES NEEDED, 4 doses, Starting on Sun01/22/24 at 1105, Until Sun01/23/24 at 0304, SECOND LINE THERAPY for moderate or severe pain, Caution: IV hydromorphone is approximately 8 times MORE POTENT than IV morphine. For example, hydromorphone 1mg IV = morphine 8mg IV methylPREDNISolone 4 mg oral tablet (15 sources) Corticosteroid Start: 10-05-2023 End: 12-07-2023 take 1 tablet by mouth once daily methylPREDNISolone (MEDROL DOSE-PACK) 4 mg Dose-Pack TAKE 1 ROW OF TABLETS BY MOUTH EACH DAY INSTRUCTED ON THE PACKAGE 10/05/2023 12/07/2023 Discontinued Start: 03-19-2023 take 1 tablet by mouth once Me thylprednisolone (Medrol (Ramana)) 4 mg tablets,dose pack Active 0 PO per package directions March 19, 2023 12:00am PO PER PKG DIR MiscMED Miscellaneous Medica tion (15 sources) Start: 03-12-2024 MiscMED Miscel laneous Medication See Instructions, Takes Blood Sugar Hampton, 1 cap daily, 0 Refill(s), 104.1 Start Date: 03/12/24 Status: Ordered Repeat number: 1 Start: 03-12-2024 MiscMED Miscel laneous Medication See Instructions, Takes Blood Sugar [place], 1 cap daily, 0 Refill(s), 104.1 Start Date: 03/12/24 Status: Ordered omeprazole 40 mg delayed release oral capsule (20 sources) Proton Pump Inhibitor Start: 09-14-2023 End: 12-13-2023 take 1 capsule by mouth once daily omeprazole (PRILOSEC) 40 mg capsule Take 1 capsule by mouth once daily. 30 capsule 1 09/14/2023 12/07/2023 Discontinued Start: 02-28-2023 End: 03-30-2023 omeprazole 20 mg oral delaye d release capsule Dose : 20 mg = 1 cap(s), Oral, qDay, # 30 cap(s), 0 Refill(s), Pharmacy: [id number], Stomach burning, 159.5, cm, 10/24/22 15:50:00 EDT, Height, kg, 02/28/23 11:25:00 EDT, Dosing Weight Start Date: 02/28/23 Stop Date: 03/30/23 Status: Ordered sucralfate 1000 mg oral tablet (7 sources) Aluminum Complex Start: 05-02-2024 End: 05-09-2024 sucralfate 1 g oral tablet Dose : 1 gram(s) = 1 tab(s), Oral, q6h, PRN Other (see order comments), let tablet melt in mouth to coat mouth sores., # 28 tab(s), 0 Refill(s), Pharmacy: [id number], Mouth sores, 159, cm, 05/02/24 15:02:00 EST, Height, kg, 05/02/24 15:02:00 EST, Dosing Weight Start Date: 05/02/24 Stop Date: 05/09/24 Status: Ordered Quantity: 28.0 Unit: tab(s) Repeat number: 1 Indication: Other lesions of oral mucosa valACYclovir 1000 mg oral tablet (20 sources) Herpesvirus Nucleoside Analog DNA Polymerase Inhibitor, Herpes Simplex Virus Nucleoside Analog DNA Polymerase Inhibitor, Herpes Zoster Virus Nucleoside Analog DNA Polymerase Inhibitor Start: 04-23-2024 End: 04-28-2024 valACYclovir 1 g oral tablet Dose : 1 gram(s) = 1 tab(s), Oral, BID, X 5 day(s), # 10 tab(s), 0 Refill(s), 04/28/24 11:41:00 AM EST, Pharmacy: [facility] [place], 159, cm, 04/16/24 7:17:00 EST, Height, 103.1, kg, 04/16/24 7:17:00 EST, Dosing Weight Start Date: 04/23/24 Stop Date: 04/28/24 Status: Ordered Start: 07-24-2023 End: 02-19-2024 valACYclovir 500 mg oral tab let Dose : 500 mg = 1 tab(s), Oral, qDay, X 30 day(s), # 30 tab(s), 6 Refill(s), 02/19/24 2:15:00 PM EDT, Pharmacy: [id number], HSV-1 infection, 158, cm, 07/24/23 13:46:00 EST, Height, 103.8, kg, 07/24/23 13:46:00 EST, Dosing Weight Start Date: 07/24/23 Stop Date: 02/19/24 Status: Ordered Start: 07-24-2023 End: 02-20-2024 take 1 tablet by mouth once valACYclovir (VALTREX) 500 mg tablet Take 1 tablet by mouth every afternoon. 07/24/2023 02/20/2024 Discontinued Comment on above: Take 1 tablet by thuan th every afternoon. 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] Onset: 4 12-24-2023 Chronic Asthma (20 sources) Asthma; Translations: [Uncomplicated moderate persistent asthma] Onset: 3 10-24-2022 Chronic Complications of surgical procedures or medical care (1 source) Irritating sensation along suture line; Translations: [Other complications of procedures, not elsewhere classified, initial encounter] 02-01-2024 Episodic Diabetes mellitus without complication (7 sources) Prediabetes; Translations: [Prediabetes] Onset: 5 09-16-2024 Episodic Fever of unknown origin (4 sources) Fever, unspecified; Translations: [Fever] Onset: 5 07-30-2024 Episodic Fluid and electrolyte disorders (1 source) Hypo-osmolality and hyponatremia; Translations: [Hypo-osmolality and hyponatremia] Onset: Episodic Gangrene (2 sources) Gangrene, not elsewhere classified; Translations: [Necrotizing granulomatous inflammation (HCC)] Onset: 5 Episodic Headache; including migraine (20 sources) Migraine; Translations: [Migraine, unspecified, not intractable, without status migrainosus] Onset: 4 06-22-2023 Chronic Immunizations and screening for infectious disease (2 sources) Contact with or exposure to other viral diseases 03-19-2023 Episodic Joint disorders and dislocations; trauma-related (4 sources) Patellofemoral syndrome of bilateral knees; Translations: [Patellofemoral disorders, right knee] Onset: 5 08-06-2023 Chronic Lymphadenitis (10 sources) Thoracic lymphadenopathy; Translations: [Localized enlarged lymph nodes] Onset: 5 07-02-2024 Episodic Menstrual disorders (19 sources) Irregular periods; Translations: [Menorrhagia] Onset: 4 06-22-2023 Chronic Mood disorders (20 sources) Severe recurrent major depression; Translations: [Major depressive disorder, recurrent severe without psychotic features] Onset: 4 10-24-2022 Chronic Mycoses (14 sources) Histoplasmosis; Translations: [Histoplasmosis, unspecified] Onset: 5 07-24-2024 Episodic Nausea and vomiting (20 sources) Nausea; Translations: [Nausea] Onset: 4 08-30-2023 Episodic Nonmalignant breast conditions (1 source) Fibrocystic changes of bilateral breasts; Translations: [Diffuse cystic mastopathy of right breast] 07-19-2023 Chronic Nonmalignant breast conditions (20 sources) Lump in left breast; Translations: [Unspecified lump in the left breast, unspecified quadrant] Onset: 3 04-23-2023 Episodic Nonspecific chest pain (2 sources) Atypical chest pain; Translations: [Other chest pain] 06-25-2023 Episodic Nutritional deficiencies (2 sources) Vitamin D deficiency; Translations: [Vitamin D deficiency, unspecified] 09-27-2023 Chronic Other aftercare (1 source) Encounter for therapeutic drug level monitoring; Translations: [Medication monitoring encounter] Onset: 5 Episodic Other circulatory disease (1 source) History of thrombophlebitis; Translations: [Personal history of other diseases of the circulatory system] 04-14-2024 Episodic Other connective tissue disease (20 sources) Ganglion cyst of left hand 06-22-2023 Episodic Other connective tissue disease (1 source) Pain in left foot; Translations: [Pain in left foot] 07-28-2023 Episodic Other connective tissue disease (2 sources) Disorder of tendon; Translations: [Unspecified disorder of synovium and tendon, unspecified thigh] 08-06-2023 Episodic Other connective tissue disease (1 source) Fibromyalgia; Translations: [Fibromyalgia] 08-06-2023 Episodic Other endocrine disorders (1 source) Polycystic ovarian syndrome; Translations: [Polycystic ovarian syndrome] Onset: 5 Chronic Other female genital disorders (1 source) Abnormal uterine bleeding; Translations: [Abnormal uterine and vaginal bleeding, unspecified] Onset: 4 Chronic Other female genital disorders (2 sources) Other specified noninflammatory disorders of cervix uteri; Translations: [Other specified noninflammatory disorders of cervix uteri] Onset: 4 Episodic Other gastrointestinal disorders (3 sources) Irritable bowel syndrome with diarrhea; Translations: [Irritable bowel syndrome with diarrhea] 08-06-2023 Chronic Other gastrointestinal disorders (6 sources) Dysphagia; Translations: [Dysphagia, unspecified] 08-30-2023 Episodic Other gastrointestinal disorders (3 sources) Abdominal bloating; Translations: [Abdominal distension (gaseous)] 08-30-2023 Episodic Other gastrointestinal disorders (1 source) Diarrhea; Translations: [Diarrhea, unspecified] 11-20-2023 Episodic Other infections; including parasitic (1 source) History of histoplasmosis; Translations: [Personal history of other infectious and parasitic diseases] 08-06-2023 Episodic Other inflammatory condition of skin (3 sources) Intertrigo; Translations: [Erythema intertrigo] 12-31-2023 Episodic Other injuries and conditions due to external causes (2 sources) Laceration of digital nerve in finger; Translations: [Injury of digital nerve of unspecified finger, initial encounter] 10-05-2023 Episodic Other injuries and conditions due to external causes (1 source) Blister; Translations: [Other injury of unspecified body region, initial encounter] 10-06-2023 Episodic Other liver diseases (3 sources) Disease of liver; Translations: [Liver disease, unspecified] 07-24-2024 Chronic Other liver diseases (1 source) Liver disease, unspecified; Translations: [Liver disease] Onset: 5 Chronic Other liver diseases (1 source) Unspecified cirrhosis of liver; Translations: [Unspecified cirrhosis of liver] Onset: 5 Chronic Other liver diseases (1 source) Fatty (change of) liver, not elsewhere classified; Translations: [Fatty (change of) liver, not elsewhere classified] Onset: 5 Chronic Other lower respiratory disease (3 sources) Pleuritic pain; Translations: [Pleurodynia] 03-18-2023 Episodic Other lower respiratory disease (1 source) Dyspnea; Translations: [Shortness of breath] 04-04-2023 Episodic Other lower respiratory disease (3 sources) Nodule of lung; Translations: [Solitary pulmonary nodule] 04-19-2023 Episodic Other lower respiratory disease (1 source) Cough; Translations: [Acute cough] 08-03-2023 Episodic Other lower respiratory disease (1 source) Respiratory tract infection; Translations: [Other specified respiratory disorders] 09-27-2023 Episodic Other lower respiratory disease (1 source) Cough; Translations: [Acute cough] 09-01-2024 Episodic Other nervous system disorders (1 source) Other chronic pain; Translations: [Chronic bilateral low back pain without sciatica] Onset: Chronic Other nervous system disorders (1 source) Acute postoperative pain; Translations: [Other acute postprocedural pain] 01-22-2024 Episodic Other nervous system disorders (1 source) Postoperative pain ; Translations: [Other acute postprocedural pain] Onset: 4 Episodic Other non-traumatic joint disorders (1 source) Chronic ankle pain; Translations: [Pain in left ankle and joints of left foot] 07-28-2023 Episodic Other non-traumatic joint disorders (2 sources) Pain in right hip joint; Translations: [Pain in right hip] 11-05-2023 Episodic Other nutritional; endocrine; and metabolic disorders (20 sources) Body mass index 40+ - severely obese; Translations: [Morbid (severe) obesity due to excess calories] Onset: 4 10-24-2022 Chronic Other nutritional; endocrine; and metabolic disorders (1 source) Obesity; Translations: [Obesity, unspecified] 04-04-2023 Chronic Other nutritional; endocrine; and metabolic disorders (20 sources) Morbid obesity; Translations: [Morbid (severe) obesity due to excess calories] Onset: 4 10-08-2023 Chronic Other nutritional; endocrine; and metabolic disorders (4 sources) Severe obesity; Translations: [Morbid (severe) obesity due to excess calories] 12-31-2023 Chronic Other nutritional; endocrine; and metabolic disorders (2 sources) Morbid (severe) obesity due to excess calories; Translations: [Obesity, Class III, BMI 40-49.9 (morbid obesity) (HCC)] Onset: 4 Chronic Other nutritional; endocrine; and metabolic disorders (1 source) Body mass index (BMI) 40.0-44.9, adult; Translations: [Class 3 severe obesity without serious comorbidity with body mass index (BMI) of 40.0 to 44.9 in adult, unspecified obesity type (HCC)] Onset: 4 Chronic Other nutritional; endocrine; and metabolic disorders (1 source) Metabolic syndrome; Translations: [Metabolic syndrome] Onset: 5 Chronic Other nutritional; endocrine; and metabolic disorders (20 sources) History of nutritional deficiency 10-24-2022 Episodic Other nutritional; endocrine; and metabolic disorders (1 source) Overweight; Translations: [Overweight] 07-19-2023 Episodic Other screening for suspected conditions (not mental disorders or infectious disease) (1 source) CT of chest abnormal; Translations: [Abnormal findings on diagnostic imaging of other specified body structures] 07-02-2024 Chronic Other screening for suspected conditions (not mental disorders or infectious disease) (2 sources) Encounter for screening for malignant neoplasm of cervix; Translations: [Encounter for screening for malignant neoplasm of cervix] Onset: 4 Episodic Other skin disorders (3 sources) Granulomatosis; Translations: [Other granulomatous disorders of the skin and subcutaneous tissue] 08-13-2024 Episodic Other skin disorders (2 sources) Other granulomatous disorders of the skin and subcutaneous tissue; Translations: [Necrotizing granulomatous inflammation (HCC)] Onset: 5 Episodic Other upper respiratory disease (1 source) Allergic rhinitis due to animal hair and dander; Translations: [Allergic rhinitis due to animal (cat) (dog) hair and dander] 10-15-2023 Chronic Other upper respiratory infections (1 source) Chronic recurrent sinusitis; Translations: [Chronic sinusitis, unspecified] 07-19-2023 Chronic Other upper respiratory infections (7 sources) Upper respiratory infection; Translations: [Acute upper respiratory infection, unspecified] 03-18-2023 Episodic Personality disorders (20 sources) Borderline personality disorder; Translations: [Borderline personality disorder] Onset: 4 12-19-2023 Chronic Phlebitis; thrombophlebitis and thromboembolism (20 sources) Thrombophlebitis of superficial vein of right upper limb; Translations: [Phlebitis and thrombophlebitis of other sites] Onset: 4 02-20-2024 Episodic Pleurisy; pneumothorax; pulmonary collapse (1 source) Pleurisy; Translations: [Pleurisy] Onset: Episodic Pneumonia (except that caused by tuberculosis or sexually transmitted disease) (20 sources) Pneumonia; Translations: [Recurrent pneumonia] Onset: 5 02-28-2023 Episodic Residual codes; unclassified (6 sources) Obstructive sleep apnea syndrome 06-06-2024 Chronic Residual codes; unclassified (2 sources) Obstructive sleep apnea (adult) (pediatric); Translations: [Obstructive sleep apnea (adult) (pediatric)] Onset: Chronic Residual codes; unclassified (20 sources) Sleep pattern disturbance 12-05-2022 Episodic Residual codes; unclassified (1 source) Contact with and (suspected) exposure to mold (toxic); Translations: [Contact with and (suspected) exposure to mold] 04-04-2023 Episodic Residual codes; unclassified (1 source) Difficulty sleeping ; Translations: [Sleep deprivation] 08-06-2023 Episodic Residual codes; unclassified (20 sources) Chronic back pain 12-19-2023 Episodic Residual codes; unclassified (2 sources) Postoperative state; Translations: [Other specified postprocedural states] 01-25-2024 Episodic Residual codes; unclassified (1 source) Medication interaction; Translations: [Other specified health status] 07-30-2024 Episodic Residual codes; unclassified (1 source) Other specified health status; Translations: [Drug interaction] Onset: Episodic Spondylosis; intervertebral disc disorders; other back problems (4 sources) Lumbar spondylosis; Translations: [Spondylosis without myelopathy or radiculopathy, lumbar region] Onset: 4 01-07-2024 Chronic Superficial injury; contusion (12 sources) Contusion of knee; Translations: [Contusion of left knee, initial encounter] 11-14-2022 Episodic Syncope (1 source) Near syncope; Translations: [Syncope and collapse] 02-04-2024 Episodic Unclassified (20 sources) History of clinical finding in subject 10-24-2022 Unclassified (1 source) Lumbar pain; Translations: [Lumbar pain] Onset: 4 Unclassified (1 source) Chronic bilateral low back pain without sciatica; Translations: [Chronic bilateral low back pain without sciatica] Onset: 4 Unclassified (1 source) Low back pain, unspecified; Translations: [Low back pain, unspecified] Onset: 5 Past or Other Problems Problem Classification Problem Date Documented Da te Episodic/Chronic Allergic reactions (1 source) Other specified dermatitis; Translations: [Other specified dermatitis] Onset: 07-19-2024 Episodic Contraceptive and procreative management (20 sources) Subcutaneous contraceptive implant present; Translations: [Presence of (intrauterine) contraceptive device] Onset: 12-24-2023 12-24-2023 Episodic Genitourinary symptoms and ill-defined conditions (20 sources) Blood in urine; Translations: [Hematuria, unspecified] Onset: 12-26-2023 03-09-2023 Episodic Other connective tissue disease (1 source) Unspecified disorder of synovium and tendon, unspecified thigh; Translations: [Unspecified disorder of synovium and tendon, unspecified thigh] Onset: 06-30-2024 Episodic Other connective tissue disease (1 source) Pain in left foot; Translations: [Pain in left foot] Onset: 06-24-2024 Episodic Other connective tissue disease (1 source) Pain in right arm; Translations: [Pain in right arm] Onset: 06-10-2024 Episodic Other gastrointestinal disorders (20 sources) Peritoneal cyst; Translations: [Other specified disorders of peritoneum] Onset: 12-14-2023 12-14-2023 Episodic Other gastrointestinal disorders (2 sources) Dysphagia, unspecified; Translations: [Dysphagia, unspecified type] Onset: 03-07-2024 Episodic Other gastrointestinal disorders (1 source) Diarrhea, unspecified; Translations: [Diarrhea, unspecified] Onset: 07-23-2024 Episodic Other gastrointestinal disorders (1 source) Constipation, unspecified; Translations: [Constipation, unspecified] Onset: 06-09-2024 Episodic Other inflammatory condition of skin (1 source) Erythema intertrigo; Translations: [Intertrigo] Onset: 01-18-2024 Episodic Other injuries and conditions due to external causes (20 sources) H/O: injury; Translations: [Personal history of other (healed) physical injury and trauma] Onset: 10-08-2023 04-10-2023 Episodic Other lower respiratory disease (20 sources) Multiple nodules of lung; Translations: [Other nonspecific abnormal finding of lung field] Onset: 05-17-2023 10-24-2022 Episodic Other lower respiratory disease (6 sources) Chronic cough; Translations: [Chronic cough] Onset: 07-14-2024 04-08-2024 Episodic Other lower respiratory disease (2 sources) Other nonspecific abnormal finding of lung field; Translations: [Pulmonary nodules] Onset: 05-17-2023 Episodic Other lower respiratory disease (2 sources) Apnea, not elsewhere classified; Translations: [Apnea, not elsewhere classified] Onset: 03-27-2024 Episodic Other non-traumatic joint disorders (1 source) Pain in left knee; Translations: [Pain in left knee] Onset: 07-11-2024 Episodic Other nutritional; endocrine; and metabolic disorders (1 source) Abnormal weight gain; Translations: [Abnormal weight gain] Onset: 07-10-2024 Episodic Residual codes; unclassified (5 sources) Family history of breast cancer; Translations: [Family history of malignant neoplasm of breast] 04-23-2023 Episodic Residual codes; unclassified (1 source) Family history of malignant neoplasm of breast; Translations: [Family history of breast cancer] Onset: 04-23-2023 Episodic Spondylosis; intervertebral disc disorders; other back problems (20 sources) Lumbar radiculopathy; Translations: [Radiculopathy, lumbar region] Onset: 01-07-2024 10-14-2022 Episodic Sprains and strains (20 sources) Low back strain; Translations: [Strain of muscle, fascia and tendon of lower back, initial encounter] Onset: 08-25-2024 05-27-2023 Episodic Unclassified (20 sources) Patient encounter status 10-24-2022 Results Test Name Value Interpretation Reference Range Facility Re-Evaluation - PT (1)on Re-Evaluation - PT (1) [facility] [address] [place] [address] / REEVALUATION / MEDICARE RECERTIFICATION PHYSICAL THERAPY MR#: [id number] Acct: [id number] Name: MATT CALABRESE Rep #: [id number] : 2000 24 From: Evans Matthews PT, ATC Referring Dr.: ORIN Priest Status:REG RCR Insurance: [facility] [employer]EL[employer] PAY INSURANCE Re-Evaluation Intro: Jack Priest, ORIN, It has been my pleasure to treat MATT CALABRESE over the last 13 visits for LBP. Please see the progress note below for an update on the physical therapy plan of care! Subjective Subjective: Pt reports she is feeling better, but is still very limited by her pain Objective Objective/Function: LBP ranges from 5-6/10 Pt reports 20% improvement with L LE radiculopathy MMT: R LE is 5/5 throughout, while L LE is 4/5 throughout Pt is improving slowly, but still lacks functional LE strength and is limited with LBP and L LE radiculopathy at this time. Plan Plan Plan: Attempt to get 12 more visits approved to focus on core strengthening and B LE strengthening Balance/Gait/Functional tests Balance/Special Test Scores Oswestry Low Back Score: 19 Goals Goals Goal 1:: Decrease L LE radiculaopathy x 50% to aid with ambulation Goal Time Frame: 4-6 Weeks Goal Progress: Progressing Goal 2:: Decrease LBP x 50% to aid with sleep Goal Time Frame: 4-6 Weeks Goal Progress: Progressing Goal 3:: Increase L LE strength x 1 grade to aid with stair negotiation Goal Time Frame: 4-6 Weeks Goal 4:: I with HEP Goal Time Frame: 2-4 Weeks Anticipated Interventions Anticipated Interventions Patient/Client Instruction: Educate patient on: Condition and Plan of Care For the Purpose of:: To improve self management Therapeutic Exercise to Include: Strength training, Endurance training, Balance training, Postural training, Flexibilty training, Gait and locomotor training and Dynamic Lumbar Stabilization For the Purpose of:: To decrease pain, To increase ROM and To improve muscle performance and motor function Re-Evaluation Ending Re-evaluation ending: Please do not hesitate to contact me at [phone] by phone or if you have questions or concerns regarding this new plan of care! Sincerely, Evans Matthews, PT, ATC 10/10/24 1422 CC: ORIN Priest [facility] Signed For Medicare only, by signing this I certify the plan of care. ___ Physicians Signature Date Normal [facility] CRP SerPl-mCncon 10-09-2024 CRP [Mass/Vol] 0.7 mg/dL Normal <0.9 [facility] Comment on above: Order Comment: Speci men Type: BLOOD SPECIMENOrdering Facility: [facility] Address: [address] [place] [address] Performed By: #### 1 988-5 ####[facility] LABCLIA [id number] [address] OF [facility] Comprehensive metabolic 2000 panelon 10-09-2024 Albumin [Mass/Vol] 4.1 g/dL Normal 3.9-4.9 [facility] Comment on above: Order Comment: Speci men Type: BLOOD SPECIMENOrdering Facility: [facility] Address: [address] [place] [address] Performed By: #### 2 4323-8 ####[facility] [id number] [place] [id number] [place] [address] [place] ALP [Catalytic activity/Vol] 73 U/L Normal 34-123 [facility] Comment on above: Order Comment: Speci men Type: BLOOD SPECIMENOrdering Facility: [facility] Address: [address] [place] [address] Performed By: #### 2 4323-8 ####[facility] [id number] [place] [address] [place] ALT [Catalytic activity/Vol] 11 U/L Normal 7-38 [facility] Comment on above: Order Comment: Speci men Type: BLOOD SPECIMENOrdering Facility: [facility] Address: [address] [place] [address] Performed By: #### 2 4323-8 ####[facility]ITAL[facility]CLIA [id number] [place] [address] [place] Anion gap [Moles/Vol] 13 mmol/L Normal 8-15 [facility] Comment on above: Order Comment: Speci men Type: BLOOD SPECIMENOrdering Facility: [facility] Address: [address] [place] [address] Performed By: #### 2 4323-8 ####[facility]ITALNCLIA [id number] [place] [address] [place] AST [Catalytic activity/Vol] 13 U/L Normal 13-35 [facility] Comment on above: Order Comment: Speci men Type: BLOOD SPECIMENOrdering Facility: [facility] Address: [address] [place] [address] Performed By: #### 2 4323-8 ####[facility]ITALNCLIA [id number] [place] [address] [place] Bilirubin [Mass/Vol] mg/dL Low 0.2-1.3 [facility] Comment on above: Order Comment: Speci men Type: BLOOD SPECIMENOrdering Facility: [facility] Address: [address] [place] [address] Performed By: #### 2 4323-8 ####[facility]ITALNCLIA [id number] [place] [address] [place] Calcium [Mass/Vol] 9.4 mg/dL Normal 8.5-10.2 [facility] Comment on above: Order Comment: Speci men Type: BLOOD SPECIMENOrdering Facility: [facility] Address: [address] [place] [address] Performed By: #### 2 4323-8 ####[facility] MILLWNCL[facility] [id number] [place] [address] [place] Chloride [Moles/Vol] 105 mmol/L Normal 98-107 [facility] Comment on above: Order Comment: Speci men Type: BLOOD SPECIMENOrdering Facility: [facility] Address: [address] [place] [address] Performed By: #### 2 4323-8 ####[facility] [id number] [place] [address] [place] CO2 [Moles/Vol] 22 mmol/L Normal 22-30 [facility] Comment on above: Order Comment: Speci men Type: BLOOD SPECIMENOrdering Facility: [facility] Address: [address] [place] [address] Performed By: #### 2 4323-8 ####[facility]ITALL[facility] [id number] [place] [address] [place] Creatinine [Mass/Vol] 0.65 mg/dL Normal 0.58-0.96 [facility] Comment on above: Order Comment: Speci men Type: BLOOD SPECIMENOrdering Facility: [facility] Address: [address] [place] [address] Performed By: #### 2 4323-8 ####[facility]ITALNCLIA [id number] [place] [address] [place] Creatinine and Glomerular filtration rate.predicted panel (S/P/Bld) 125 mL/min/1.73m??? Normal >=60 [facility] Comment on above: Order Comment: Ronnie alonzo Type: BLOOD SPECIMENOrdering Facility: [facility] Address: [address] [place] [address] Result Comment: Edwige mated Glomerular Filtration Rate (eGFR) is calculated using the 2020 CKD-EPI creatinine equation. This equation utilizes serum creatinine, sex, and age as parameters. The creatinine assay has traceable calibration to isotope dilution-mass spectrometry. Refer to KDIGO guidelines for clinical interpretation. In patients with unstable renal function, e.g. those with acute kidney injury, the eGFR may not accurately reflect actual GFR. Performed By: #### 2 4323-8 ####[facility] [id number] [place] [address] [place] Glucose [Mass/Vol] 97 mg/dL Normal 74-99 [facility] Comment on above: Order Comment: Ronnie alonzo Type: BLOOD SPECIMENOrdering Facility: [facility] Address: [address] [place] [address] Result Comment: The [place] Diabetes Association (ADA) provides guidance for cutoff values for fasting glucose and random glucose. The ADA defines fasting as no caloric intake for at least 8 hours. Fasting plasma glucose results between 100 to 125 mg/dL indicate increased risk for diabetes (prediabetes).Fasting plasma glucose results greater than or equal to 126 mg/dL meet the criteria for diagnosis of diabetes. In the absence of unequivocal hyperglycemia, results should be confirmed by repeat testing. In a patient with classic symptoms of hyperglycemia or hyperglycemic crisis, random plasma glucose results greater than or equal to 200 mg/dL meet the criteria for diagnosis of diabetes.Reference: Standards of Medical Care in Diabetes 2016, [place] Diabetes Association. Diabetes Care. 2016.39(Suppl 1). Performed By: #### 2 4323-8 ####[facility] H[facility]PITALA [id number] [place] [address] [place] Potassium [Moles/Vol] 3.8 mmol/L Normal 3.7-5.1 [facility] Comment on above: Order Comment: Ronnie alonzo Type: BLOOD SPECIMENOrdering Facility: [facility] Address: [address] [id number] Performed By: #### 2 4323-8 ####[facility]ILLWNCL[facility] [id number] [place] [address] [place] Protein [Mass/Vol] 7.2 g/dL Normal 6.3-8.0 [facility] Comment on above: Order Comment: Speci men Type: BLOOD SPECIMENOrdering Facility: [facility] Address: [address] [place] [address] Performed By: #### 2 4323-8 ####[facility]ITALNCLIA [id number] [place] [address] [place] Sodium [Moles/Vol] 140 mmol/L Normal 136-144 [facility] Comment on above: Order Comment: Speci men Type: BLOOD SPECIMENOrdering Facility: [facility] Address: [address] [place] [address] Performed By: #### 2 4323-8 ####[facility] [id number] [place] [address] [place] Urea nitrogen [Mass/Vol] 14 mg/dL Normal 7-21 [facility] Comment on above: Order Comment: Speci men Type: BLOOD SPECIMENOrdering Facility: [facility] Address: [address] [place] [address] Performed By: #### 2 4323-8 ####[facility]ITALL[facility] [id number] [place] [address] [place] ESR Westergren method (Bld) [Velocity]on 10-09-2024 ESR (Bld) [Velocity] 30 mm/h High 0-20 [facility] Comment on above: Order Comment: Speci men Type: BLOOD SPECIMENOrdering Facility: [facility] Address: [address] [place] [address] Performed By: #### 4 537-7 ####[facility] LABCLIA [id number] [place] [address] [place] HISTOPLASMA AB CFon 10-10-19 25 HISTOPLASMA MYCELIA, CF <1:8 Normal <1:8 [facility] Comment on above: Order Comment: Ronnie alonzo Type: BLOOD SPECIMENOrdering Facility: [facility] Address: [address] [place] [address] Result Comment: INTE RPRETIVE INFORMATION: Histoplasma Mycelia Antibodies by HAND WOODWORKING SANDER titer of 1:8 or greater is generally considered presumptiveevidence of histoplasmosis. A titer of 1:32 or greater or risingtiters indicate strong presumptive evidence of histoplasmosis.Cross reactions, usually at lower titers, may occur with otherfungal diseases. Performed By: #### H ISTCF ####[facility]IESCLIA [id number] [place] [address] HISTOPLASMA YEAST, CF <1:8 Normal <1:8 [facility] Comment on above: Order Comment: Speci cheri Type: BLOOD SPECIMENOrdering Facility: [facility] Address: [address] [place] [address] Result Comment: INTE RPRETIVE INFORMATION: Histoplasma Yeast Antibodies by HAND WOODWORKING SANDER titer of 1:8 or greater is generally considered presumptiveevidence of histoplasmosis. A titer of 1:32 or greater or risingtiters indicate strong presumptive evidence of histoplasmosis.Cross reactions, usually at lower titers, may occur with otherfungal diseases.Performed By: [facility] [place], [place] [address]Yjptkdkdbr Director: Orlando Amaya MD, PhDCLIA Number: [id number] Performed By: #### H ISTCF ####[facility] LABORATORIESCLIA [id number] [place] [address] ITRACONAZOLE BLOODon 025 HYDROXYITRACONAZOLE <0.2 Normal [facility] Comment on above: Order Comment: Ronnie cheri Type: BLOOD SPECIMENOrdering Facility: [facility] Address: [address] [place] [address] Result Comment: Rang es are based on trough draw at steady-state concentration. Test performed by LC-MS/MS. Ranges are based off the Itraconazole trough levels alone, not combined with hydroxyitraconazole.Therapeutic: >1.0 ug/mLProphylaxis: >0.4 ug/mLToxic: >3.0 ug/mL (Toxic values will not be called)The therapeutic, prophylactic, and toxic ranges were based on the 2016 Infectious Disease Society of [place]'s (IDSA) Clinical Practice Guidelines for the Management of Aspergillosis and Candidiasis and consultation from [facility]'s Department of Infectious Disease.Reference ranges and high/low indicator flags are provided as general guidelines only. The treating physician must determine appropriate target levels/dosing based on the specific clinical situation.This test was developed, and its performance characteristics determined by the [facility] Department of Pathology and Laboratory Medicine. It has not been cleared or approved by the FDA. The [facility] Department of Pathology and Laboratory Medicine is regulated under CLIA as qualified to perform high-complexity testing. This test is used for clinical purposes. It should not be regarded as investigational or for research. Performed By: #### I TRAC ####[facility] LABCLIA [id number] [place] [address] [place] ITRACONAZOLE BLD <0.2 Low 0.6-2.9 [facility] Comment on above: Order Comment: Speci men Type: BLOOD SPECIMENOrdering Facility: [facility] Address: [address] [place] [address] Performed By: #### I TRAC ####[facility] LABCLIA [id number] [place] [address] [place] CNPNon 09-23-2024 CNPN Normal [facility] Basic metabolic 2000 panelOr dered By: Kristi Encarnacion on 09-16-2024 Anion gap [Moles/Vol] 9 mmol/L 8 - 15 mmol/L [facility] Calcium [Mass/Vol] 9.4 mg/dL 8.5 - 10. 2 mg/dL [facility] Chloride [Moles/Vol] 102 mmol/L 98 - 10 7 mmol/L [facility] CO2 [Moles/Vol] 27 mmol/L 22 - 30 mmol/L [facility] Creatinine [Mass/Vol] 0.75 mg/dL 0.58 - 0.96 mg/dL [facility] GFR/1.73 sq M.predicted among non-blacks MDRD (S/P/Bld) [Vol rate/Area] 113 mL/min/{1.73_m2} - PINF [facility] Comment on above: Estimated Glomerular Filtration Rate (eGFR) is calculated using the 2020 CKD-EPI creatinine equation. This equation utilizes serum creatinine, sex, and age as parameters. The creatinine assay has traceable calibration to isotope dilution-mass spectrometry. Refer to KDIGO guidelines for clinical interpretation. In patients with unstable renal function, e.g. those with acute kidney injury, the eGFR may not accurately reflect actual GFR. Glucose [Mass/Vol] 112 mg/dL High 74 - 99 mg/dL [facility] Comment on above: The [place] Diabete s Association (ADA) provides guidance for cutoff values for fasting glucose and random glucose. The ADA defines fasting as no caloric intake for at least 8 hours. Fasting plasma glucose results between 100 to 125 mg/dL indicate increased risk for diabetes (prediabetes). Fasting plasma glucose results greater than or equal to 126 mg/dL meet the criteria for diagnosis of diabetes. In the absence of unequivocal hyperglycemia, results should be confirmed by repeat testing. In a patient with classic symptoms of hyperglycemia or hyperglycemic crisis, random plasma glucose results greater than or equal to 200 mg/dL meet the criteria for diagnosis of diabetes. Reference: Standards of Medical Care in Diabetes 2016, [place] Diabetes Association. Diabetes Care. 2016.39(Suppl 1). Interpretation and review of laboratory results Abnormal [facility] Potassium [Moles/Vol] 4.1 mmol/L 3.7 - 5.1 mmol/L [facility] Sodium [Moles/Vol] 138 mmol/L 136 - 144 mmol/L [facility] Urea nitrogen [Mass/Vol] 14 mg/dL 7 - 21 mg/dL [facility] Basic metabolic 2000 panelon 09-16-2024 Anion gap [Moles/Vol] 9 mmol/L Normal 8-15 [facility] Comment on above: Order Comment: Speci men Type: BLOOD SPECIMENOrdering Facility: [facility] Address: [address] [place] [address] Performed By: #### 2 4321-2 ####[facility] LORENA ARREOLA [id number] [place] [address] [place] Calcium [Mass/Vol] 9.4 mg/dL Normal 8.5-10.2 [facility] Comment on above: Order Comment: Speci men Type: BLOOD SPECIMENOrdering Facility: [facility] Address: [address] [place] [address] Performed By: #### 2 4321-2 ####[facility] MILLTOWNCLIA [id number] [place] [address] [place] Chloride [Moles/Vol] 102 mmol/L Normal 98-107 [facility] Comment on above: Order Comment: Speci men Type: BLOOD SPECIMENOrdering Facility: [facility] Address: [address] [place] [address] Performed By: #### 2 4321-2 ####[facility]ITALL[facility] [id number] [place] [address] [place] CO2 [Moles/Vol] 27 mmol/L Normal 22-30 [facility] Comment on above: Order Comment: Speci men Type: BLOOD SPECIMENOrdering Facility: [facility] Address: [address] [place] [address] Performed By: #### 2 4321-2 ####[facility] MILLWNCLIA [id number] [place] [address] [place] Creatinine [Mass/Vol] 0.75 mg/dL Normal 0.58-0.96 [facility] Comment on above: Order Comment: Speci men Type: BLOOD SPECIMENOrdering Facility: [facility] Address: [address] [place] [address] Performed By: #### 2 4321-2 ####[facility]ITALNCLIA [id number] [place] [address] [place] Creatinine and Glomerular filtration rate.predicted panel (S/P/Bld) 113 mL/min/1.73m??? Normal >=60 [facility] Comment on above: Order Comment: Ronnie alonzo Type: BLOOD SPECIMENOrdering Facility: [facility] Address: [address] [place] [address] Result Comment: Edwige mated Glomerular Filtration Rate (eGFR) is calculated using the 2020 CKD-EPI creatinine equation. This equation utilizes serum creatinine, sex, and age as parameters. The creatinine assay has traceable calibration to isotope dilution-mass spectrometry. Refer to KDIGO guidelines for clinical interpretation. In patients with unstable renal function, e.g. those with acute kidney injury, the eGFR may not accurately reflect actual GFR. Performed By: #### 2 4321-2 ####[facility] [id number] [place] [address] [place] Glucose [Mass/Vol] 112 mg/dL High 74-99 [facility] Comment on above: Order Comment: Ronnie alonzo Type: BLOOD SPECIMENOrdering Facility: [facility] Address: [address] [place] [address] Result Comment: The [place] Diabetes Association (ADA) provides guidance for cutoff values for fasting glucose and random glucose. The ADA defines fasting as no caloric intake for at least 8 hours. Fasting plasma glucose results between 100 to 125 mg/dL indicate increased risk for diabetes (prediabetes).Fasting plasma glucose results greater than or equal to 126 mg/dL meet the criteria for diagnosis of diabetes. In the absence of unequivocal hyperglycemia, results should be confirmed by repeat testing. In a patient with classic symptoms of hyperglycemia or hyperglycemic crisis, random plasma glucose results greater than or equal to 200 mg/dL meet the criteria for diagnosis of diabetes.Reference: Standards of Medical Care in Diabetes 2016, [place] Diabetes Association. Diabetes Care. 2016.39(Suppl 1). Performed By: #### 2 4321-2 ####[facility] [id number] [place] [address] [place] Potassium [Moles/Vol] 4.1 mmol/L Normal 3.7-5.1 [facility] Comment on above: Order Comment: Ronnie alonzo Type: BLOOD SPECIMENOrdering Facility: [facility] Address: [address] [place] [address] Performed By: #### 2 4321-2 ####[facility]ITALNCLIA [id number] [place] [address] [place] Sodium [Moles/Vol] 138 mmol/L Normal 136-144 [facility] Comment on above: Order Comment: Speci men Type: BLOOD SPECIMENOrdering Facility: [facility] Address: [address] [place] [address] Performed By: #### 2 4321-2 ####[facility]PITALNCUINTA[facility] [id number] [place] [address] [place] Urea nitrogen [Mass/Vol] 14 mg/dL Normal 7-21 [facility] Comment on above: Order Comment: Speci men Type: BLOOD SPECIMENOrdering Facility: [facility] Address: [address] [place] [address] Performed By: #### 2 4321-2 ####[facility]ITALNCLIA [id number] [place] [address] [place] C peptide SerPl-ncon 09-16 C peptide [Mass/Vol] 3.5 ng/mL Normal 1.1-4.4 [facility] Comment on above: Order Comment: Speci men Type: BLOOD SPECIMENOrdering Facility: [facility] Address: [address] [place] [address] Performed By: #### 1 986-9 ####[facility] LABCLIA [id number] [place] [address] [place] CNNURSEon 09-16-2024 CNNURSE Normal [facility] GAD65 Ab Ser-aCncon 09-17-19 25 Glutamate decarboxylase 65 Ab Qn (S) <5.0 Normal <=5.0 [facility] Comment on above: Order Comment: Speci men Type: BLOOD SPECIMENOrdering Facility: [facility] Address: [address] [place] [address] Result Comment: Anti -glutamic acid decarboxylase antibody (GAD65) test usually in conjunction with another test such as IA-2 antibody is used as an aid in establishing the autoimmune nature of previously-diagnosed type I diabetes mellitus or in predicting of progression to type I diabetes mellitus in patients with certain autoimmune diseases including autoimmune gastritis among others. It is also used as an aid in diagnosis of stiff person syndrome and certain autoimmune nervous system diseases. Clinical correlation is required. Performed By: #### 1 3926-1 ####[facility] LABIA [id number] [place] [address] [place] Glutamate decarboxylase 65 A b Qn (S)on 09-16-2024 GLUTAMIC ACID DECARBOXYLAS AB QUALITATIVE Negative Normal Negative [facility] Comment on above: Order Comment: Speci men Type: BLOOD SPECIMENOrdering Facility: [facility] Address: [address] [place] [address] Performed By: #### 1 3926-1 ####[facility]ITALIA [id number] [place] [address] [place] INSULINOMA ASSOCIATED ANTIBO DY 2on 09-16-2024 IA 2 ANTIBODY BLOOD <5.4 Normal <7.5 [facility] Comment on above: Order Comment: Speci men Type: BLOOD SPECIMENOrdering Facility: [facility] Address: [address] [place] [address] Result Comment: Anti -insulinoma associated antigen 2 (IA-2) antibody test is used as an aid in diagnosis of type I diabetes mellitus, to predict the risk of progression to type I diabetes mellitus among susceptible individuals, and to predict the necessity of insulin therapy in adult-onset diabetes mellitus. Clinical correlation is required. Performed By: #### I A2AB ####[facility] LABIA [id number] [place] [address] [place] ZINC TRANSPORTER 8 ANTIBODYo n 09-16-2024 ZINC TRANSPORTER 8 ANTIBODY 13.4 U/mL Normal 0.0-15.0 [facility] Comment on above: Order Comment: Speci men Type: BLOOD SPECIMENOrdering Facility: [facility] Address: [address] [place] [address] Result Comment: INTE RPRETIVE INFORMATION: Zinc Transporter 8 AntibodyA value greater than 15.0 Kronus Units/mL is considered positivefor the Zinc Transporter 8 Antibody (ZnT8). Kronus Units arearbitrary. Kronus Units = U/mL. This assay is intended for thesemi-quantitative determination of antibodies to ZnT8 in humanserum. Results should be interpreted within the context ofclinical symptoms.Performed By: [facility] [place], [place] [address]Yllopjgjsk Director: Orlando Amaya MD, PhDCLIA Number: [id number] Performed By: #### Z NT8AB ####[facility] LABORATORIESCLIA [id number] [place] [address] CNOVon 09-15-2024 CNOV Normal [facility] MR/PAT.ANEon 09-15-2024 [facility] Records Department [address] [place] [address] PAT - Anesthesia 09/15/24 1534 MR#: [id number] Acct: [id number] Name: MATT CALABRESE Rep #: [id number] : 2000 24 From: Rodrick Gallardo MD PCP: ORIN Beatty Status:PRE [facility] [place] Race: C Location: EN Pre-Assessment Diagnosis/Proposed Procedure Planned Operative Procedure(s): COLONOSCOPY Anesthesia History 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 When Was Last Pacemaker Check QUESTION #4 FULL TEXT: You/Your Family Experience fever (hyperthermia) with Anesthesia Last Oral Intake Last Oral intake: Last Oral Intake NPO since Meds taken in AM with sips of water? Meds patient instructed to take am of surgery PONV PONV - biofuels plant operations engineer: PONV - biofuels plant operations engineer Female Yes 09/15/24 13:30 HX of Motion Sickness Yes 09/15/24 13:30 HX of N/V After Surgery Yes 09/15/24 13:30 Non-Smoker Yes 09/15/24 13:30 Duration of Surgery greater No 09/15/24 13:30 than 60 minutes Number of Risk Factors 4 09/15/24 13:30 PONV Score Severe Risk 09/15/24 13:30 Height Weight Height Weight: Anesthesia: Height Weight Height 5 ft 3 in 08/15/24 09:13 Respiratory Assessment Respiratory Assessment - biofuels plant operations engineer: Respiratory Tract Infection Hx - biofuels plant operations engineer Hx Respiratory Tract Infection No 09/15/24 13:30 STOP Sleep Apnea STOP Sleep Apnea - biofuels plant operations engineer: STOP Sleep Apnea - biofuels plant operations engineer Hx Hypertension No 09/15/24 13:30 Hx Sleep Apnea Yes 09/15/24 13:30 CPAP Yes: FIGHTING WITH INSURANCE 09/15/24 13:30 FOR APPROVAL BIPAP No 09/15/24 13:30 Do you snore loudly (louder than talking or can be heard Do you often feel tired/ fatigued/ sleepy during daytime? Has anyone observed you stop breathing during sleep? STOP Results Positive 09/15/24 13:30 QUESTION #5 FULL TEXT : Do you snore loudly (louder than talking or can be heard through closed doors)? Tobacco Use History Tobacco Use History - biofuels plant operations engineer: Tobacco Use History - biofuels plant operations engineer Tobacco Use Smoking Status Never smoker 09/15/24 13:30 Hx Tobacco Use No 09/15/24 13:30 Years Smoking Packs Smoked per Day Smoking Cessation Date was within the last 15 years Hx Smoking Cessation Date Hx Smoking Cessation Counseling Hematologic Medial History Hematologic Hx - biofuels plant operations engineer: Hematologic Medical Hx - finished cloth checker Hx of Blood Transfusion No 09/15/24 13:30 Hx of Transfusion in last 3 No 09/15/24 13:30 Months Date of Last Transfusion (if within last 3 months) Ever experience any problems No 09/15/24 13:30 with transfusion(s)? Specify any problems Hx of Preganancy in last 3 No 09/15/24 13:30 Months [facility]15[facility] 13:30 Questions: Date: 09/15/24 09/15/24 13:30 Time: 13:44 09/15/24 13:30 Patient unable to answer at this time (ie. confused, unrespo /Reproduction History /Reproductive History - biofuels plant operations engineer: /Reproductive Hx- biofuels plant operations engineer Hx Now No 09/15/24 13:30 Gestational Age (in weeks): EDC: Hx Hx Para Hx Section SAB No 09/15/24 13:30 [facility] Medical History (Updated 09/15/24 @ 15:05 by Chula Aviles) Cirrhosis Histoplasmosis Arthritis Low iron Injury of head and neck Esophageal abnormality History of IBS Non-smoker CPAP (continuous positive airway pressure) dependence Sleep apnea Chronic cough History of stress test Ankle pain, left Right wrist sprain Left knee pain Strain of Achilles tendon Contact with or exposure to other viral diseases URI (upper respiratory infection) Sprain of left foot Left ankle sprain Contusion of left knee Anxiety Home Medications ???Medication ???Instructions ???Recorded ???Last Taken ???Type ergocalciferol (vitamin D2) 1,250 1,250 mcg PO QWEEK 06/09/2409/10 History mcg (50,000 unit) capsule ferrous sulfate 325 mg (65 mg 325 mg PO BID 06/09/24 09/10/24 Hi story iron) tablet flax seed oil 1,000 mg PO DAILY 06/09/24 5 History hydroxyzine HCl 25 mg tablet (more content not included)... Normal [facility] LABORATORYOrdered By: Cyrus Ballard on 09-10-2024 Cholesterol [Mass/Vol] 183 mg/dL Normal 0 - 200 mg/dL AO ADM SS Comment on above: Interpretive Data: C holesterol Reference Interval: Less than 200 Desirable 200-239 Borderline high risk 240 and above High risk Cholesterol in HDL [Mass/Vol] 65 mg/dL High 40 - 60 mg/dL AO ADM SS Cholesterol in LDL [Mass/Vol] 85 mg/dL Normal 0 - 130 mg/dL AO ADM SS Triglyceride [Mass/Vol] 167 mg/dL High 0 - 150 mg/dL AO ADM SS Comment on above: Interpretive Data: T riglyceride Reference Interval: Less than 150 Normal 150-199 Borderline high risk 200-499 High risk 500 or higher Very high risk LIPIDon 09-10-2024 Cholesterol [Mass/Vol] 183 mg/dL Normal 0-200 [facility] Comment on above: Result Comment: Chol esterol Reference Interval: Less than 200 Desirable 200-239 Borderline high risk 240 and above High risk Performed By: #### A SAMUEL, FES, CBC, A1C, FERR, ADIFF #### [place] [address] #### B12, FOL, INSLN #### [address] [address] Cholesterol in HDL [Mass/Vol] 65 mg/dL High 40-60 [facility] Comment on above: Performed By: #### A SAMUEL, FES, CBC, A1C, FERR, ADIFF #### [place] [address] #### B12, FOL, INSLN #### [address] [address] Cholesterol in LDL [Mass/Vol] 85 mg/dL Normal 0-130 [facility] Comment on above: Performed By: #### A SAMUEL, FES, CBC, A1C, FERR, ADIFF #### [address] [address] #### B12, FOL, INSLN #### [address] [address] Triglyceride [Mass/Vol] 167 mg/dL High 0-150 [facility] Comment on above: Result Comment: Trig lyceride Reference Interval: Less than 150 Normal 150-199 Borderline high risk 200-499 High risk 500 or higher Very high risk Performed By: #### A SAMUEL, FES, CBC, A1C, FERR, ADIFF #### [place] [address] #### B12, FOL, INSLN #### [address] [address] CBC W Auto Differential pane l (Bld)on 09-02-2024 Basophils (Bld) [#/Vol] 10*3/uL Normal <0.11 [facility] Comment on above: Order Comment: Speci men Type: BLOOD SPECIMENOrdering Facility: [facility] Address: [address] [place] [address] Performed By: #### 5 7021-8 ####[facility] [id number] [place] [address] [place] Basophils/100 WBC (Bld) 0.3 % Normal [facility] Comment on above: Order Comment: Speci men Type: BLOOD SPECIMENOrdering Facility: [facility] Address: [address] [place] [address] Performed By: #### 5 7021-8 ####[facility]STITUTEWNCLIA [id number] [place] [address] [place] Differential cell count method Nom (Bld) Auto Normal [facility] Comment on above: Order Comment: Speci men Type: BLOOD SPECIMENOrdering Facility: [facility] Address: [address] [place] [address] Performed By: #### 5 7021-8 ####[facility]STITUTEWNCLIA [id number] [place] [address] [place] Eosinophils (Bld) [#/Vol] 0.09 10*3/uL Normal <0.46 [facility] Comment on above: Order Comment: Speci men Type: BLOOD SPECIMENOrdering Facility: [facility] Address: [address] [place] [address] Performed By: #### 5 7021-8 ####[facility]ILL[facility]OWNCL[facility] [id number] [place] [address] [place] Eosinophils/100 WBC (Bld) 1.4 % Normal [facility] Comment on above: Order Comment: Speci men Type: BLOOD SPECIMENOrdering Facility: [facility] Address: [address] [place] [address] Performed By: #### 5 7021-8 ####[facility] [id number] [place] [address] [place] Erythrocyte distribution width (RBC) [Ratio] 13.5 % Normal 11.5-15.0 [facility] Comment on above: Order Comment: Speci men Type: BLOOD SPECIMENOrdering Facility: [facility] Address: [address] [place] [address] Performed By: #### 5 7021-8 ####[facility] [id number] [place] [address] [place] Hematocrit (Bld) [Volume fraction] 34.3 % Low 36.0-46.0 [facility] Comment on above: Order Comment: Speci men Type: BLOOD SPECIMENOrdering Facility: [facility] Address: [address] [place] [address] Performed By: #### 5 7021-8 ####[facility] [id number] [place] [address] [place] Hemoglobin (Bld) [Mass/Vol] 11.3 g/dL Low 11.5-15.5 [facility] Comment on above: Order Comment: Speci men Type: BLOOD SPECIMENOrdering Facility: [facility] Address: [address] [place] [address] Performed By: #### 5 7021-8 ####[facility] [id number] [place] [address] [place] Immature granulocytes (Bld) [#/Vol] 10*3/uL Normal <0.10 [facility] Comment on above: Order Comment: Speci men Type: BLOOD SPECIMENOrdering Facility: [facility] Address: [address] [place] [address] Performed By: #### 5 7021-8 ####[facility] [id number] [place] [address] [place] Immature granulocytes/100 WBC (Bld) 0.3 % Normal [facility] Comment on above: Order Comment: Speci men Type: BLOOD SPECIMENOrdering Facility: [facility] Address: [address] [place] [address] Performed By: #### 5 7021-8 ####[facility] [id number] [place] [address] [place] Lymphocytes (Bld) [#/Vol] 1.72 10*3/uL Normal 1.00-4.00 [facility] Comment on above: Order Comment: Speci men Type: BLOOD SPECIMENOrdering Facility: [facility] Address: [address] [place] [address] Performed By: #### 5 7021-8 ####[facility] [id number] [place] [address] [place] Lymphocytes/100 WBC (Bld) 26.9 % Normal [facility] Comment on above: Order Comment: Speci men Type: BLOOD SPECIMENOrdering Facility: [facility] Address: [address] [place] [address] Performed By: #### 5 7021-8 ####[facility] [id number] [place] [address] [place] MCH (RBC) [Entitic mass] 28.5 pg Normal 26.0-34.0 [facility] Comment on above: Order Comment: Speci men Type: BLOOD SPECIMENOrdering Facility: [facility] Address: [address] [place] [address] Performed By: #### 5 7021-8 ####[facility] [id number] [place] [address] [place] MCHC (RBC) [Mass/Vol] 32.9 g/dL Normal 30.5-36.0 [facility] Comment on above: Order Comment: Speci men Type: BLOOD SPECIMENOrdering Facility: [facility] Address: [address] [place] [address] Performed By: #### 5 7021-8 ####[facility]OPH[facility] [id number] [place] [address] [place] MCV (RBC) [Entitic vol] 86.4 fL Normal 80.0-100.0 [facility] Comment on above: Order Comment: Speci men Type: BLOOD SPECIMENOrdering Facility: [facility] Address: [address] [place] [address] Performed By: #### 5 7021-8 ####[facility]ITALNCUIN[facility] [id number] [place] [address] [place] Monocytes (Bld) [#/Vol] 0.38 10*3/uL Normal <0.87 [facility] Comment on above: Order Comment: Speci men Type: BLOOD SPECIMENOrdering Facility: [facility] Address: [address] [place] [address] Performed By: #### 5 7021-8 ####[facility] [id number] [place] [address] [place] Monocytes/100 WBC (Bld) 5.9 % Normal [facility] Comment on above: Order Comment: Speci men Type: BLOOD SPECIMENOrdering Facility: [facility] Address: [address] [place] [address] Performed By: #### 5 7021-8 ####[facility] [id number] [place] [address] [place] Neutrophils (Bld) [#/Vol] 4.16 10*3/uL Normal 1.45-7.50 [facility] Comment on above: Order Comment: Speci men Type: BLOOD SPECIMENOrdering Facility: [facility] Address: [address] [place] [address] Performed By: #### 5 7021-8 ####[facility] [id number] [place] [address] [place] Neutrophils/100 WBC (Bld) 65.2 % Normal [facility] Comment on above: Order Comment: Speci men Type: BLOOD SPECIMENOrdering Facility: [facility] Address: [address] [place] [address] Performed By: #### 5 7021-8 ####[facility]OSPITALSOPHIA [id number] [place] [address] [place] Nucleated RBC (Bld) [#/Vol] 10*3/uL Normal <0.01 [facility] Comment on above: Order Comment: Speci men Type: BLOOD SPECIMENOrdering Facility: [facility] Address: [address] [place] [address] Performed By: #### 5 7021-8 ####[facility] [id number] [place] [address] [place] Nucleated RBC/100 WBC (Bld) [Ratio] 0.0 /100 WBC Normal [facility] Comment on above: Order Comment: Speci men Type: BLOOD SPECIMENOrdering Facility: [facility] Address: [address] [place] [address] Performed By: #### 5 7021-8 ####[facility] [id number] [place] [address] [place] Platelet mean volume (Bld) [Entitic vol] 9.5 fL Normal 9.0-12.7 [facility] Comment on above: Order Comment: Speci men Type: BLOOD SPECIMENOrdering Facility: [facility] Address: [address] [place] [address] Performed By: #### 5 7021-8 ####[facility]ITALNCLIA [id number] [place] [address] [place] Platelets (Bld) [#/Vol] 300 10*3/uL Normal 150-400 [facility] Comment on above: Order Comment: Speci men Type: BLOOD SPECIMENOrdering Facility: [facility] Address: [address] [place] [address] Performed By: #### 5 7021-8 ####[facility]STITUTEWNCLIA [id number] [place] [address] [place] RBC (Bld) [#/Vol] 3.97 10*6/uL Normal 3.90-5.20 [facility] Comment on above: Order Comment: Speci men Type: BLOOD SPECIMENOrdering Facility: [facility] Address: [address] [place] [address] Performed By: #### 5 7021-8 ####[facility] HOSPITALNCA [id number] [place] [address] [place] WBC (Bld) [#/Vol] 6.39 10*3/uL Normal 3.70-11.00 [facility] Comment on above: Order Comment: Speci men Type: BLOOD SPECIMENOrdering Facility: [facility] Address: [address] [place] [address] Performed By: #### 5 7021-8 ####[facility]ITALNCLIA [id number] [place] [address] [place] Comprehensive metabolic 2000 panelon 09-02-2024 Albumin [Mass/Vol] 4.1 g/dL Normal 3.9-4.9 [facility] Comment on above: Order Comment: Speci men Type: BLOOD SPECIMENOrdering Facility: [facility] Address: [address] [place] [address] Performed By: #### 2 4323-8 ####[facility]ITALNCLIA [id number] [place] [address] [place] ALP [Catalytic activity/Vol] 80 U/L Normal 34-123 [facility] Comment on above: Order Comment: Speci men Type: BLOOD SPECIMENOrdering Facility: [facility] Address: [address] [place] [address] Performed By: #### 2 4323-8 ####[facility] LORENA GRAHAMWNCLIA [id number] [place] [address] [place] ALT [Catalytic activity/Vol] 15 U/L Normal 7-38 [facility] Comment on above: Order Comment: Speci men Type: BLOOD SPECIMENOrdering Facility: [facility] Address: [address] [place] [address] Performed By: #### 2 4323-8 ####[facility] GEOFFREYWNCLIA [id number] [place] [address] [place] Anion gap [Moles/Vol] 9 mmol/L Normal 8-15 [facility] Comment on above: Order Comment: Speci men Type: BLOOD SPECIMENOrdering Facility: [facility] Address: [address] [place] [address] Performed By: #### 2 4323-8 ####[facility]STITUTEWNCLIA [id number] [place] [address] [place] AST [Catalytic activity/Vol] 16 U/L Normal 13-35 [facility] Comment on above: Order Comment: Speci men Type: BLOOD SPECIMENOrdering Facility: [facility] Address: [address] [place] [address] Performed By: #### 2 4323-8 ####[facility] MILL[facility]OWNCL[facility] [id number] [place] [address] [place] Bilirubin [Mass/Vol] mg/dL Low 0.2-1.3 [facility] Comment on above: Order Comment: Speci men Type: BLOOD SPECIMENOrdering Facility: [facility] Address: [address] [place] [address] Performed By: #### 2 4323-8 ####[facility]ITALNCLIA [id number] [place] [address] [place] Calcium [Mass/Vol] 9.3 mg/dL Normal 8.5-10.2 [facility] Comment on above: Order Comment: Speci men Type: BLOOD SPECIMENOrdering Facility: [facility] Address: [address] [place] [address] Performed By: #### 2 4323-8 ####[facility]ILL[facility]OWNCL[facility] [id number] [place] [address] [place] Chloride [Moles/Vol] 104 mmol/L Normal 98-107 [facility] Comment on above: Order Comment: Speci men Type: BLOOD SPECIMENOrdering Facility: [facility] Address: [address] [place] [address] Performed By: #### 2 4323-8 ####[facility]OSPITALLIA [id number] [place] [address] [place] CO2 [Moles/Vol] 25 mmol/L Normal 22-30 [facility] Comment on above: Order Comment: Speci men Type: BLOOD SPECIMENOrdering Facility: [facility] Address: [address] [place] [address] Performed By: #### 2 4323-8 ####[facility]STITUTEWNCLIA [id number] [place] [address] [place] Creatinine [Mass/Vol] 0.62 mg/dL Normal 0.58-0.96 [facility] Comment on above: Order Comment: Speci men Type: BLOOD SPECIMENOrdering Facility: [facility] Address: [address] [place] [address] Performed By: #### 2 4323-8 ####[facility] INSTITUTEWNCLIA [id number] [place] [address] [place] Creatinine and Glomerular filtration rate.predicted panel (S/P/Bld) 127 mL/min/1.73m??? Normal >=60 [facility] Comment on above: Order Comment: Ronnie alonzo Type: BLOOD SPECIMENOrdering Facility: [facility] Address: [address] [place] [address] Result Comment: Edwige mated Glomerular Filtration Rate (eGFR) is calculated using the 2020 CKD-EPI creatinine equation. This equation utilizes serum creatinine, sex, and age as parameters. The creatinine assay has traceable calibration to isotope dilution-mass spectrometry. Refer to KDIGO guidelines for clinical interpretation. In patients with unstable renal function, e.g. those with acute kidney injury, the eGFR may not accurately reflect actual GFR. Performed By: #### 2 4323-8 ####[facility] [id number] [place] [address] [place] Glucose [Mass/Vol] 113 mg/dL High 74-99 [facility] Comment on above: Order Comment: Ronnie alonzo Type: BLOOD SPECIMENOrdering Facility: [facility] Address: [address] [place] [address] Result Comment: The [place] Diabetes Association (ADA) provides guidance for cutoff values for fasting glucose and random glucose. The ADA defines fasting as no caloric intake for at least 8 hours. Fasting plasma glucose results between 100 to 125 mg/dL indicate increased risk for diabetes (prediabetes).Fasting plasma glucose results greater than or equal to 126 mg/dL meet the criteria for diagnosis of diabetes. In the absence of unequivocal hyperglycemia, results should be confirmed by repeat testing. In a patient with classic symptoms of hyperglycemia or hyperglycemic crisis, random plasma glucose results greater than or equal to 200 mg/dL meet the criteria for diagnosis of diabetes.Reference: Standards of Medical Care in Diabetes 2016, [place] [employer] Association. Diabetes Care. 2016.39(Suppl 1). Performed By: #### 2 4323-8 ####[facility] [id number] [place] [address] [place] Potassium [Moles/Vol] 4.1 mmol/L Normal 3.7-5.1 [facility] Comment on above: Order Comment: Speci men Type: BLOOD SPECIMENOrdering Facility: [facility] Address: [address] [place] [address] Performed By: #### 2 4323-8 ####[facility] MOLLYNCARJ[facility] [id number] [place] [address] [place] Protein [Mass/Vol] 7.0 g/dL Normal 6.3-8.0 [facility] Comment on above: Order Comment: Speci men Type: BLOOD SPECIMENOrdering Facility: [facility] Address: [address] [place] [address] Performed By: #### 2 4323-8 ####[facility]ITALNCLIA [id number] [place] [address] [place] Sodium [Moles/Vol] 138 mmol/L Normal 136-144 [facility] Comment on above: Order Comment: Speci men Type: BLOOD SPECIMENOrdering Facility: [facility] Address: [address] [place] [address] Performed By: #### 2 4323-8 ####[facility]ITALNCLIA [id number] [place] [address] [place] Urea nitrogen [Mass/Vol] 12 mg/dL Normal 7-21 [facility] Comment on above: Order Comment: Speci men Type: BLOOD SPECIMENOrdering Facility: [facility] Address: [address] [place] [address] Performed By: #### 2 4323-8 ####[facility]STITUTEWNCLIA [id number] [place] [address] [place] ITRACONAZOLE BLOODon 025 HYDROXYITRACONAZOLE 3.0 ug/mL Normal [facility] Comment on above: Order Comment: Speci men Type: BLOOD SPECIMENOrdering Facility: [facility] Address: [address] [place] [address] Result Comment: Rang es are based on trough draw at steady-state concentration. Test performed by LC-MS/MS. Ranges are based off the Itraconazole trough levels alone, not combined with hydroxyitraconazole.Therapeutic: >1.0 ug/mLProphylaxis: >0.4 ug/mLToxic: >3.0 ug/mL (Toxic values will not be called)The therapeutic, prophylactic, and toxic ranges were based on the 2016 Infectious Disease Society [place]'s (IDSA) Clinical Practice Guidelines for the Management of Aspergillosis and Candidiasis and consultation from [facility]'s Department of Infectious Disease.Reference ranges and high/low indicator flags are provided as general guidelines only. The treating physician must determine appropriate target levels/dosing based on the specific clinical situation.This test was developed, and its performance characteristics determined by the [facility] Department of Pathology and Laboratory Medicine. It has not been cleared or approved by the FDA. The [facility] Department of Pathology and Laboratory Medicine is regulated under CLIA as qualified to perform high-complexity testing. This test is used for clinical purposes. It should not be regarded as investigational or for research. Performed By: #### I TRAC ####[facility] LABIA [id number] [place] [address] [place] ITRACONAZOLE BLD 1.6 ug/mL Normal 0.6-2.9 Lacy yuen On License Of [facility] Comment on above: Order Comment: Speci men Type: BLOOD SPECIMENOrdering Facility: [facility] Address: [address] [place] [address] Performed By: #### I TRAC ####[facility] LABIA [id number] [place] [address] [place] US PELVIS NON-OB W/TRANSVAGI NALon 08-29-2024 US PELVIS NON-OB W/TRANSVAGINAL ORIGINAL EXAMINATION: TRANSVAGINAL PELVIC ULTRASOUND 08/29/2024 TECHNIQUE: Transvaginal pelvic ultrasound was performed. COMPARISON: 07/13/2023 HISTORY: ORDERING SYSTEM PROVIDED HISTORY: Reason for Exam: pelvic pain s/p hysterectomy FINDINGS: Measurements: Uterus: Not measured. Endometrial stripe: Not measured. Right Ovary:3.2 x 2.6 x 2.7 cm Left Ovary: 3.2 x 2.4 x 1.9 cm Ultrasound Findings: The uterus is surgically absent. Right Ovary: Right ovary is within normal limits. Left Ovary: Left ovary is within normal limits. Appropriate arterial and venous blood flow observed in both ovaries. Free Fluid: Minimal free fluid is seen in the cul-de-sac near the vaginal cuff. Distended urinary bladder smooth in contour without mass or calcification. IMPRESSION: 1. Previous hysterectomy. 2. Minimal free fluid in the cul-de-sac near the vaginal cuff. 3. Normal sonographic appearance of the ovaries. Interpreted by: Eliceo Albert DO Preliminary Report By: Eliceo Albert DO Electronically signed By Eliceo Albert DO Dictated Date: 08/29/2024 3:36:33 PM Prelim Date: 08/29/2024 3:39:12 PM Sign Date: 08/29/2024 3:39:12 PM Ordering Provider: ARIEL WHITE Normal [facility] L305.1805on 08-28-2024 Path [facility] SEE PATHOLOGY REPORT Normal [facility] Comment on above: Order Comment: RESUL TS FAXED 09/16/24 1110 Andie Keane. Result Comment: Spec imen sent to [facility] Pathology Department. Report available in EMR. Performed By: #### L 400.0001, L3100.5500, L501.3620, L3100.7000, L500.4050, L100.0100, L3100.7950, L101.9900 #### [facility] [address] [place], [address] CBC W Auto Differential pane l (Bld)on 08-27-2024 Basophils (Bld) [#/Vol] 0.03 10*3/uL Normal <0.11 [facility] Comment on above: Order Comment: Speci men Type: BLOOD SPECIMENOrdering Facility: [facility] Address: [address] [place] [address] Performed By: #### 5 7021-8 ####[facility] [id number] [place] [address] [place] Basophils/100 WBC (Bld) 0.4 % Normal [facility] Comment on above: Order Comment: Speci men Type: BLOOD SPECIMENOrdering Facility: [facility] Address: [address] [place] [address] Performed By: #### 5 7021-8 ####[facility]OPH[facility] [id number] [place] [address] [place] Differential cell count method Nom (Bld) Auto Normal [facility] Comment on above: Order Comment: Speci men Type: BLOOD SPECIMENOrdering Facility: [facility] Address: [address] [place] [address] Performed By: #### 5 7021-8 ####[facility] [id number] [place] [address] [place] Eosinophils (Bld) [#/Vol] 0.19 10*3/uL Normal <0.46 [facility] Comment on above: Order Comment: Speci men Type: BLOOD SPECIMENOrdering Facility: [facility] Address: [address] [place] [address] Performed By: #### 5 7021-8 ####[facility] [id number] [place] [address] [place] Eosinophils/100 WBC (Bld) 2.3 % Normal [facility] Comment on above: Order Comment: Speci men Type: BLOOD SPECIMENOrdering Facility: [facility] Address: [address] [place] [address] Performed By: #### 5 7021-8 ####[facility] [id number] [place] [address] [place] Erythrocyte distribution width (RBC) [Ratio] 13.4 % Normal 11.5-15.0 [facility] Comment on above: Order Comment: Speci men Type: BLOOD SPECIMENOrdering Facility: [facility] Address: [address] [place] [address] Performed By: #### 5 7021-8 ####[facility]ITALNCLIA [id number] [place] [address] [place] Hematocrit (Bld) [Volume fraction] 34.2 % Low 36.0-46.0 [facility] Comment on above: Order Comment: Speci men Type: BLOOD SPECIMENOrdering Facility: [facility] Address: [address] [place] [address] Performed By: #### 5 7021-8 ####[facility] [id number] [place] [address] [place] Hemoglobin (Bld) [Mass/Vol] 11.4 g/dL Low 11.5-15.5 [facility] Comment on above: Order Comment: Speci men Type: BLOOD SPECIMENOrdering Facility: [facility] Address: [address] [place] [address] Performed By: #### 5 7021-8 ####[facility] [id number] [place] [address] [place] Immature granulocytes (Bld) [#/Vol] 0.03 10*3/uL Normal <0.10 [facility] Comment on above: Order Comment: Speci men Type: BLOOD SPECIMENOrdering Facility: [facility] Address: [address] [place] [address] Performed By: #### 5 7021-8 ####[facility] [id number] [place] [address] [place] Immature granulocytes/100 WBC (Bld) 0.4 % Normal [facility] Comment on above: Order Comment: Speci men Type: BLOOD SPECIMENOrdering Facility: [facility] Address: [address] [place] [address] Performed By: #### 5 7021-8 ####[facility]ITALNCLIA [id number] [place] [address] [place] Lymphocytes (Bld) [#/Vol] 2.07 10*3/uL Normal 1.00-4.00 [facility] Comment on above: Order Comment: Speci men Type: BLOOD SPECIMENOrdering Facility: [facility] Address: [address] [place] [address] Performed By: #### 5 7021-8 ####[facility] [id number] [place] [address] [place] Lymphocytes/100 WBC (Bld) 24.9 % Normal [facility] Comment on above: Order Comment: Speci men Type: BLOOD SPECIMENOrdering Facility: [facility] Address: [address] [place] [address] Performed By: #### 5 7021-8 ####[facility] [id number] [place] [address] [place] MCH (RBC) [Entitic mass] 28.4 pg Normal 26.0-34.0 [facility] Comment on above: Order Comment: Speci men Type: BLOOD SPECIMENOrdering Facility: [facility] Address: [address] [place] [address] Performed By: #### 5 7021-8 ####[facility] [id number] [place] [address] [place] MCHC (RBC) [Mass/Vol] 33.3 g/dL Normal 30.5-36.0 [facility] Comment on above: Order Comment: Speci men Type: BLOOD SPECIMENOrdering Facility: [facility] Address: [address] [place] [address] Performed By: #### 5 7021-8 ####[facility] [id number] [place] [address] [place] MCV (RBC) [Entitic vol] 85.3 fL Normal 80.0-100.0 [facility] Comment on above: Order Comment: Speci men Type: BLOOD SPECIMENOrdering Facility: [facility] Address: [address] [place] [address] Performed By: #### 5 7021-8 ####[facility] [id number] [place] [address] [place] Monocytes (Bld) [#/Vol] 0.58 10*3/uL Normal <0.87 [facility] Comment on above: Order Comment: Speci men Type: BLOOD SPECIMENOrdering Facility: [facility] Address: [address] [place] [address] Performed By: #### 5 7021-8 ####[facility] [id number] [place] [address] [place] Monocytes/100 WBC (Bld) 7.0 % Normal [facility] Comment on above: Order Comment: Speci men Type: BLOOD SPECIMENOrdering Facility: [facility] Address: [address] [place] [address] Performed By: #### 5 7021-8 ####[facility] [id number] [place] [address] [place] Neutrophils (Bld) [#/Vol] 5.41 10*3/uL Normal 1.45-7.50 [facility] Comment on above: Order Comment: Speci men Type: BLOOD SPECIMENOrdering Facility: [facility] Address: [address] [place] [address] Performed By: #### 5 7021-8 ####[facility] [id number] [place] [address] [place] Neutrophils/100 WBC (Bld) 65.0 % Normal [facility] Comment on above: Order Comment: Speci men Type: BLOOD SPECIMENOrdering Facility: [facility] Address: [address] [place] [address] Performed By: #### 5 7021-8 ####[facility] GEOFFREYWNCLIA [id number] [place] [address] [place] Nucleated RBC (Bld) [#/Vol] 10*3/uL Normal <0.01 [facility] Comment on above: Order Comment: Speci men Type: BLOOD SPECIMENOrdering Facility: [facility] Address: [address] [place] [address] Performed By: #### 5 7021-8 ####[facility]ALL[facility] [id number] [place] [address] [place] Nucleated RBC/100 WBC (Bld) [Ratio] 0.0 /100 WBC Normal [facility] Comment on above: Order Comment: Speci men Type: BLOOD SPECIMENOrdering Facility: [facility] Address: [address] [place] [address] Performed By: #### 5 7021-8 ####[facility] [id number] [place] [address] [place] Platelet mean volume (Bld) [Entitic vol] 9.5 fL Normal 9.0-12.7 [facility] Comment on above: Order Comment: Speci men Type: BLOOD SPECIMENOrdering Facility: [facility] Address: [address] [place] [address] Performed By: #### 5 7021-8 ####[facility] [id number] [place] [address] [place] Platelets (Bld) [#/Vol] 289 10*3/uL Normal 150-400 [facility] Comment on above: Order Comment: Speci men Type: BLOOD SPECIMENOrdering Facility: [facility] Address: [address] [place] [address] Performed By: #### 5 7021-8 ####[facility]ITALNCLIA [id number] [place] [address] [place] RBC (Bld) [#/Vol] 4.01 10*6/uL Normal 3.90-5.20 [facility] Comment on above: Order Comment: Speci men Type: BLOOD SPECIMENOrdering Facility: [facility] Address: [address] [place] [address] Performed By: #### 5 7021-8 ####[facility]OFFREYAPOLINARA [id number] [place] [address] [place] WBC (Bld) [#/Vol] 8.31 10*3/uL Normal 3.70-11.00 [facility] Comment on above: Order Comment: Speci men Type: BLOOD SPECIMENOrdering Facility: [facility] Address: [address] [place] [address] Performed By: #### 5 7021-8 ####[facility]ALSOPH[facility] [id number] [place] [address] [place] Comprehensive metabolic 2000 panelon 08-27-2024 Albumin [Mass/Vol] 4.0 g/dL Normal 3.9-4.9 [facility] Comment on above: Order Comment: Speci men Type: BLOOD SPECIMENOrdering Facility: [facility] Address: [address] [place] [address] Performed By: #### 2 4323-8 ####[facility]ITALJOSEA [id number] [place] [address] [place] ALP [Catalytic activity/Vol] 82 U/L Normal 34-123 [facility] Comment on above: Order Comment: Speci men Type: BLOOD SPECIMENOrdering Facility: [facility] Address: [address] [place] [address] Performed By: #### 2 4323-8 ####[facility]STITUTEWNCLIA [id number] [place] [address] [place] ALT [Catalytic activity/Vol] 14 U/L Normal 7-38 [facility] Comment on above: Order Comment: Speci men Type: BLOOD SPECIMENOrdering Facility: [facility] Address: [address] [place] [address] Performed By: #### 2 4323-8 ####[facility] L[facility]NA GRAHAMWNCLIA [id number] [place] [address] [place] Anion gap [Moles/Vol] 10 mmol/L Normal 8-15 [facility] Comment on above: Order Comment: Speci men Type: BLOOD SPECIMENOrdering Facility: [facility] Address: [address] [place] [address] Performed By: #### 2 4323-8 ####[facility] MILLTOWNCLIA [id number] [place] [address] [place] AST [Catalytic activity/Vol] 13 U/L Normal 13-35 [facility] Comment on above: Order Comment: Speci men Type: BLOOD SPECIMENOrdering Facility: [facility] Address: [address] [place] [address] Performed By: #### 2 4323-8 ####[facility] GEOFF[facility]YWNCL[facility] [id number] [place] [address] [place] Bilirubin [Mass/Vol] mg/dL Low 0.2-1.3 [facility] Comment on above: Order Comment: Speci men Type: BLOOD SPECIMENOrdering Facility: [facility] Address: [address] [place] [address] Performed By: #### 2 4323-8 ####[facility] MILLTOWNCLIA [id number] [place] [address] [place] Calcium [Mass/Vol] 9.5 mg/dL Normal 8.5-10.2 [facility] Comment on above: Order Comment: Speci men Type: BLOOD SPECIMENOrdering Facility: [facility] Address: [address] [place] [address] Performed By: #### 2 4323-8 ####[facility] MILLWNCLIA [id number] [place] [address] [place] Chloride [Moles/Vol] 103 mmol/L Normal 98-107 [facility] Comment on above: Order Comment: Speci men Type: BLOOD SPECIMENOrdering Facility: [facility] Address: [address] [place] [address] Performed By: #### 2 4323-8 ####[facility]STITUTEWNCLIA [id number] [place] [address] [place] CO2 [Moles/Vol] 25 mmol/L Normal 22-30 [facility] Comment on above: Order Comment: Speci men Type: BLOOD SPECIMENOrdering Facility: [facility] Address: [address] [place] [address] Performed By: #### 2 4323-8 ####[facility] [id number] [place] [address] [place] Creatinine [Mass/Vol] 0.71 mg/dL Normal 0.58-0.96 [facility] Comment on above: Order Comment: Speci men Type: BLOOD SPECIMENOrdering Facility: [facility] Address: [address] [place] [address] Performed By: #### 2 4323-8 ####[facility]ITALNCLIA [id number] [address] Creatinine and Glomerular filtration rate.predicted panel (S/P/Bld) 121 mL/min/1.73m??? Normal >=60 [facility] Comment on above: Order Comment: Speci men Type: BLOOD SPECIMENOrdering Facility: [facility] Address: [address] [place] [address] Result Comment: Edwige mated Glomerular Filtration Rate (eGFR) is calculated using the 2020 CKD-EPI creatinine equation. This equation utilizes serum creatinine, sex, and age as parameters. The creatinine assay has traceable calibration to isotope dilution-mass spectrometry. Refer to KDIGO guidelines for clinical interpretation. In patients with unstable renal function, e.g. those with acute kidney injury, the eGFR may not accurately reflect actual GFR. Performed By: #### 2 4323-8 ####[facility] GEOFFREYTOWNCLIA [id number] [place] [address] [place] Glucose [Mass/Vol] 112 mg/dL High 74-99 [facility] Comment on above: Order Comment: Ronnie alonzo Type: BLOOD SPECIMENOrdering Facility: [facility] Address: [address] [place] [address] Result Comment: The [place] Diabetes Association (ADA) provides guidance for cutoff values for fasting glucose and random glucose. The ADA defines fasting as no caloric intake for at least 8 hours. Fasting plasma glucose results between 100 to 125 mg/dL indicate increased risk for diabetes (prediabetes).Fasting plasma glucose results greater than or equal to 126 mg/dL meet the criteria for diagnosis of diabetes. In the absence of unequivocal hyperglycemia, results should be confirmed by repeat testing. In a patient with classic symptoms of hyperglycemia or hyperglycemic crisis, random plasma glucose results greater than or equal to 200 mg/dL meet the criteria for diagnosis of diabetes.Reference: Standards of Medical Care in Diabetes 2016, [place] [employer] Association. Diabetes Care. 2016.39(Suppl 1). Performed By: #### 2 4323-8 ####[facility] GEOFFREYTOWNCLIA [id number] [place] [address] [place] Potassium [Moles/Vol] 3.8 mmol/L Normal 3.7-5.1 [facility] Comment on above: Order Comment: Ronnie alonzo Type: BLOOD SPECIMENOrdering Facility: [facility] Address: [address] [place] [address] Performed By: #### 2 4323-8 ####[facility]STITUTEWNCLIA [id number] [place] [address] [place] Protein [Mass/Vol] 7.0 g/dL Normal 6.3-8.0 [facility] Comment on above: Order Comment: Speci men Type: BLOOD SPECIMENOrdering Facility: [facility] Address: [address] [place] [address] Performed By: #### 2 4323-8 ####[facility] [id number] [place] [address] [place] Sodium [Moles/Vol] 138 mmol/L Normal 136-144 [facility] Comment on above: Order Comment: Speci men Type: BLOOD SPECIMENOrdering Facility: [facility] Address: [address] [place] [address] Performed By: #### 2 4323-8 ####[facility] [id number] [place] [address] [place] Urea nitrogen [Mass/Vol] 14 mg/dL Normal 7-21 [facility] Comment on above: Order Comment: Speci men Type: BLOOD SPECIMENOrdering Facility: [facility] Address: [address] [place] [address] Performed By: #### 2 4323-8 ####[facility] [id number] [place] [address] [place] ITRACONAZOLE BLOODon 025 HYDROXYITRACONAZOLE 2.8 ug/mL Normal [facility] Comment on above: Order Comment: Speci men Type: BLOOD SPECIMENOrdering Facility: [facility] Address: [address] [place] [address] Result Comment: Rang es are based on trough draw at steady-state concentration. Test performed by LC-MS/MS. Ranges are based off the Itraconazole trough levels alone, not combined with hydroxyitraconazole.Therapeutic: >1.0 ug/mLProphylaxis: >0.4 ug/mLToxic: >3.0 ug/mL (Toxic values will not be called)The therapeutic, prophylactic, and toxic ranges were based on the 2016 Infectious Disease Society [place]'s (IDSA) Clinical Practice Guidelines for the Management of Aspergillosis and Candidiasis and consultation from [facility]'s Department of Infectious Disease.Reference ranges and high/low indicator flags are provided as general guidelines only. The treating physician must determine appropriate target levels/dosing based on the specific clinical situation.This test was developed, and its performance characteristics determined by the [facility] Department of Pathology and Laboratory Medicine. It has not been cleared or approved by the FDA. The [facility] Department of Pathology and Laboratory Medicine is regulated under CLIA as qualified to perform high-complexity testing. This test is used for clinical purposes. It should not be regarded as investigational or for research. Performed By: #### I TRAC ####[facility] LABCLIA [id number] [address] [place] ITRACONAZOLE BLD 1.7 ug/mL Normal 0.6-2.9 [facility] Comment on above: Order Comment: Speci men Type: BLOOD SPECIMENOrdering Facility: [facility] Address: [address] [place] [address] Performed By: #### I TRAC ####[facility] LABCLIA [id number] [place] [address] [place] CBC W/Diff, Automatedon 04-0 -2024 Absolute Lymph 2.34 X10 3/uL Normal 0.83-4.51 [facility] Comment on above: Performed By: #### L 100.0100, L503.6030 ####[facility] [address] [facility] [address] Absolute Neut 4.3 X10 3/uL Normal 2.0-7.7 [facility] Comment on above: Performed By: #### L 100.0100, L503.6030 ####[facility] [address] [facility] [address] Basophils/100 WBC (Bld) 0.4 % Normal 0-1 [facility] Comment on above: Performed By: #### L 100.0100, L503.6030 ####[facility] [address] [place], [address] Eosinophils/100 WBC (Bld) 2.0 % Normal 0-5 [facility] Comment on above: Performed By: #### L 100.0100, L503.6030 ####[facility] [address] [place], [address] Erythrocyte distribution width (RBC) [Ratio] 13.4 % Normal 11.6-14.6 [facility] Comment on above: Performed By: #### L 100.0100, L503.6030 ####[facility] [address] [place], [address] Hematocrit (Bld) [Volume fraction] 35.1 % Low 37-47 [facility] Comment on above: Performed By: #### L 100.0100, L503.6030 ####[facility] [address] [place], [address] Hemoglobin (Bld) [Mass/Vol] 11.8 g/dL Low 12.0-15.0 [facility] Comment on above: Performed By: #### L 100.0100, L503.6030 ####[facility] [address] [place], [address] IG% 0.400 Normal 0.0-0.9 [facility] Comment on above: Result Comment: IG% - Immature Granulocytes (promyelocytes, myelocytes and metamyelocytes) > 1% indicates that a LEFT SHIFT is Present. Performed By: #### L 100.0100, L503.6030 ####[facility] [address] [place], [address] Lymphocytes/100 WBC (Bld) 31.8 % Normal 19-41 [facility] Comment on above: Performed By: #### L 100.0100, L503.6030 ####[facility] [address] [place], [address] MCH (RBC) [Entitic mass] 29.4 pg Normal 27.0-32.0 [facility] Comment on above: Performed By: #### L 100.0100, L503.6030 ####[facility] [address] [place], [address] MCHC (RBC) [Mass/Vol] 33.6 g/dL Normal 32-36 [facility] Comment on above: Performed By: #### L 100.0100, L503.6030 ####[facility] [address] [place], [address] MCV (RBC) [Entitic vol] 87.5 fL Normal 81-99 [facility] Comment on above: Performed By: #### L 100.0100, L503.6030 ####[facility] [address] [place], [address] Monocytes/100 WBC (Bld) 7.6 % Normal 0-10 [facility] Comment on above: Performed By: #### L 100.0100, L503.6030 ####[facility] [address] [place], [address] Neutrophils/100 WBC (Bld) 57.8 % Normal 47-70 [facility] Comment on above: Performed By: #### L 100.0100, L503.6030 ####[facility] [address] [place], [address] Nucleated RBC (Bld) [#/Vol] 0 10*3/uL Normal 0-5 [facility] Comment on above: Performed By: #### L 100.0100, L503.6030 ####[facility] [address] [place], [address] Platelet mean volume (Bld) [Entitic vol] 9.9 fL Normal 6.2-12.0 [facility] Comment on above: Performed By: #### L 100.0100, L503.6030 ####[facility] [address] [place], [address] Platelets (Bld) [#/Vol] 297 10*3/uL Normal 150-450 [facility] Comment on above: Performed By: #### L 100.0100, L503.6030 ####[facility] [address] [place], [address] RBC (Bld) [#/Vol] 4.01 10*6/uL Low 4.2-5.4 [facility] Comment on above: Performed By: #### L 100.0100, L503.6030 ####[facility] [address] [place], [address] RDW SD 42.5 fl Normal 35.1-43.9 [facility] Comment on above: Performed By: #### L 100.0100, L503.6030 ####[facility] [address] [place], [address] WBC (Bld) [#/Vol] 7.4 10*3/uL Normal 4.4-11.0 [facility] Comment on above: Performed By: #### L 100.0100, L503.6030 ####[facility] [address] [place], [address] Iron+Iron Binding Capacityon 08-26-2024 Iron [Mass/Vol] 49 ug/dL Low 50-170 [facility] Comment on above: Performed By: #### L 100.0100, L503.6030 ####[facility] [address] [place], [address] IRON SATURATION 15.0 Normal 13-59 [facility] Comment on above: Performed By: #### L 100.0100, L503.6030 ####[facility] [address] [place], [address] TIBC 324 ug/dL Normal 250-450 [facility] Comment on above: Performed By: #### L 100.0100, L503.6030 ####[facility] [address] [place], [address] UIBC 275 ug/dL Normal 228-428 [facility] Comment on above: Performed By: #### L 100.0100, L503.6030 ####[facility] [address] [place], [address] L509.6001on 08-26-2024 CORTISOL 26.00 ug/dL High 6.02-18.40 [facility] Comment on above: Order Comment: 60 [place] NUTES Performed By: #### L 400.0001, L3100.5500, L501.3620, L3100.7000, L500.4050, L100.0100, L3100.7950, L101.9900 #### [facility] [address] [place], [address] CORTISOL 24.60 ug/dL High 6.02-18.40 [facility] Comment on above: Order Comment: 30 [place] NUTES Performed By: #### L 509.6001 ####[facility] [address] [place], [address] CORTISOL 22.40 ug/dL High 6.02-18.40 [facility] Comment on above: Order Comment: BASEL INE Performed By: #### L 509.6001 ####[facility] [address] [place], [address] CNPNon 08-25-2024 CNPN Telephone (MMPRAD) ----- MATT CALABRESE ([id number]) 89 F Date Time Provider Department 08/25/24 KRAIG WALTERS During your visit today, we recorded the following information about you: Kraig Walters MD 08/25/2024 9:25 AM Signed INFECTIOUS DISEASE NOTE Called patient she states she feels better since last seen just having nausea and bitmore gi upset in the am after the am dose of itraconazole. we discussed cutting back the am dose to 10 mg instead of 20 ml; continuing the pm dose at 20 ml. we will repeat levels/ lf'ts next week to review prior to her ffup with me on 09/12 she verbalized understanding Marta Walters MD, [facility] Staff Physician Dept of Infectious Disease [facility] Allergies As of Date: 08/25/2024 Noted Allergy Reaction PENICILLINS 05/30/2020 4 - Hives 16 - Unknown Comments: Other reaction(s): Hives AMOXICILLIN 03/22/2022 4 - Hives AZITHROMYCIN 03/22/2022 4 - Hives 9 - Itching CLARITHROMYCIN 06/28/2021 4 - Hives METRONIDAZOLE 07/02/2024 2 - Rash SULFAMETHOXAZOLE-TRIMETHO PRIM 07/02/2024 2 - Rash TRAZODONE 11/14/2022 14 - Other: See Comments Comments: Suicidal ideations Other reaction(s): Suicidal ideation Date Reviewed: 08/25/2024 Reviewed by: Kraig Walters MD - Fully Assessed Primary Visit Diagnosis:Histoplasmosis [B39.9] Order(s):ITRACONAZOLE BLOOD [SQITRAC] Order #: [id number] FUTURE COMPREHENSIVE METABOLIC PANEL [SQCMP] Order #: [id number] FUTURE Prescriptions as of 08/25/2024 - itraconazole (SPORANOX) 10 mg/mL solution Take 20 mL by mouth two times a day. - acetaminophen (TYLENOL EXTRA STRENGTH) 500 mg tablet Take 1-2 tablets by mouth every 6 hours as needed for pain. Two (2) X 500 mg tablets = 1,000 mg - ondansetron orally disintegrating (ZOFRAN ODT) 4 mg disintegrating tablet Take 1 tablet by mouth every 8 hours as needed. - prazosin (MINIPRESS) 1 mg cap Take 2 mg by mouth once daily. - ketoconazole (NIZORAL) 2 % shampoo Apply 1 Application to affected area two times a week. - sumatriptan succ/naproxen sod (SUMATRIPTAN-NAPROXEN ORAL) Take 1 tablet by mouth as needed. - Flaxseed Oil oil Take 1 capsule by mouth two times a day. - magnesium oxide (MAG-OXIDE ORAL) Take 1 tablet by mouth once daily. - naltrexone 50 mg tablet Take 50 mg by mouth once daily. - QUEtiapine XR (SEROQUEL XR) 50 mg Tb24 Take 100 mg by mouth daily at bedtime. - cholecalciferol, Vitamin D3, (VITAMIN D3) 1,250 mcg (50,000 unit) cap capsule Take 1 capsule by mouth one time a week. - hydrOXYzine HCl (ATARAX) 25 mg tablet TAKE 1/2 TABLET BY MOUTH 4 TIMES A DAY NEEDED FOR ANXIETY, IF TOLERATED WITHOUT EXCESSIVE TIREDNESS CAN TAKE FULL TAB Problem List As Of Date 08/25/2024 Noted Resolved Lung nodules [R91.8] 05/17/2023 Morbid obesity (HCC) [E66.01] 10/08/2023 History of trauma [Z87.828] 10/08/2023 Migraine headache [G43.909] 10/08/2023 Post traumatic stress disorder [F43.10] 10/08/2023 Severe episode of recurrent major depressive di*10/08/2023 Cyst of peritoneal cavity [K66.8] 12/14/2023 Blood clot in arm (HCC) [I74.2] 12/24/[address] [Z97.5] 12/24/2023 Borderline personality disorder (HCC) [F60.3] 01/18/2024 Obesity, Class III, BMI >= 40 [E66.01] 04/29/2024 Encounter Status:Closed by KRAIG WALTERS on 08/25/24 [facility] Inital Evaluation (1) - PTon 08-22-2024 Inital Evaluation (1) - PT [facility] Physical [facility] [address] [place] [address] [address] [place] [address] / REHABILITATION SERVICES INITIAL EVALUATION MR#: [id number] Acct: [id number] Name: MATT CALABRESE Rep #: [id number] : 2000 From: Evans Matthews PT, ATC Referring Dr.: ORIN Beatty Status: REG RCR Insurance: [facility] [employer]AN SELF PAY INSURANCE Patient's Visit Information Visit Information Visit Information: MATT CALABRESE is a 24 year old F referred to Physical Therapy by ORIN Beatty with a diagnosis of LBP. Date of Evaluation: 08/22/24 Physical Therapist: Evans Matthews, PT, ATC Visit Plan Frequency: 2x /Week Duration: 4-6 Weeks Plan: L/S stab ex's, L LE strengthening, gait training, balance training, and HEP Subjective Subjective: Pt reports she was hospitalized 07/21-07/29 secondary to having histoplasmosis. Pt notes she had a fever and was very ill at that time. Pt notes she was in the hospital and never got out of her bed. Pt notes this resulted in her having severe LBP. P reports she has been treated in the past for LBP here at [facility], which always made her feel better. Pt notes she feels like she always gets better with PT, but then other things like surgeries come up and she regresses. Pt notes she has a very difficult time with trying to stand or ambulate for a long distance. Pt reports she doesn't have any tingling or numbness in her LE's at this time, but has a burning sensation that goes down her L LE which she believes is due to the weather. Pt denies any recent Dx tests for her LB. 4/10 pain while sitting here at rest, 8/10 at worst (when she ambulates a lot). Pt report sig sleep difficulty secondary to pain. Pain LBP: Pain Intensity (Out of 10): 4 Pain Intensity Range: 8 Objective Objective: Neuro: B LE sensation is WNL to light touch MMT: L knee flex and ext= 4/5. All other B LE MMT 5/5 throughout ROM: Pt has moderate L/S ext ROM deficits. All other B LE ROM is WNL Repeated movements: Unable to assess secondary to pain Gait: Pt is able to ambulate 340 feet until having to sit down secondary to pain Balance/Special Test Scores Oswestry Low Back Score: 23 Goals Goal 1:: Decrease L LE radiculaopathy x 50% to aid with ambulation Goal Time Frame: 4-6 Weeks Goal 2:: Decrease LBP x 50% to aid with sleep Goal Time Frame: 4-6 Weeks Goal 3:: Increase L LE strength x 1 grade to aid with stair negotiation Goal Time Frame: 4-6 Weeks Goal 4:: I with HEP Goal Time Frame: 2-4 Weeks Rehabilitation Potential Physical Therapy Diagnosis: Pt has LBP, difficulty with ambulation, and L LE radiculopathy secondary to deg changes Rehabilitation Potential: Good Anticipated Interventions Patient/Client Instruction: Educate patient on: Condition and Plan of Care For the Purpose of:: To improve self management Therapeutic Exercise to Include: Strength training, Endurance training, Balance training, Postural training, Flexibilty training, Gait and locomotor training and Dynamic Lumbar Stabilization For the Purpose of:: To decrease pain, To increase ROM and To improve muscle performance and motor function Text: Thank you for the opportunity to evaluate your patient. For Medicare and Medicare HMO plans, please review the plan of care and approve it. It will need to be FAXED BACK to us at [phone] for Medicare purposes. For Medicare only, by signing this I certify the plan of care. Please let me know if there are questions or concerns regarding this plan of care. Physician Signature: Date: _ 08/22/24 1506 CC: ORIN Priest [facility] Signed Normal [facility] CNPNon 08-21-2024 CNPN Normal [facility] CBC W Auto Differential pane l (Bld)on 08-20-2024 Basophils (Bld) [#/Vol] 0.03 10*3/uL Normal <0.11 [facility] Comment on above: Order Comment: Speci men Type: BLOOD SPECIMENOrdering Facility: [facility] Address: [address] [place] [address] [place] [address] Performed By: #### 5 7021-8 ####[facility] MILLWNCLIA [id number] [place] [address] [place] Basophils/100 WBC (Bld) 0.6 % Normal [facility] Comment on above: Order Comment: Speci men Type: BLOOD SPECIMENOrdering Facility: [facility] Address: [address] [place] [address] Performed By: #### 5 7021-8 ####[facility] HOSPITALMARIA ALEJANDRALIA [id number] [place] [address] [place] Differential cell count method Nom (Bld) Auto Normal [facility] Comment on above: Order Comment: Speci men Type: BLOOD SPECIMENOrdering Facility: [facility] Address: [address] [place] [address] Performed By: #### 5 7021-8 ####[facility]ITALA [id number] [place] [address] [place] Eosinophils (Bld) [#/Vol] 0.12 10*3/uL Normal <0.46 [facility] Comment on above: Order Comment: Speci men Type: BLOOD SPECIMENOrdering Facility: [facility] Address: [address] [place] [address] Performed By: #### 5 7021-8 ####[facility]PITALLIA [id number] [place] [address] [place] Eosinophils/100 WBC (Bld) 2.2 % Normal [facility] Comment on above: Order Comment: Speci men Type: BLOOD SPECIMENOrdering Facility: [facility] Address: [address] [place] [address] Performed By: #### 5 7021-8 ####[facility] HOSPITALNCLIA [id number] [place] [address] [place] Erythrocyte distribution width (RBC) [Ratio] 13.6 % Normal 11.5-15.0 [facility] Comment on above: Order Comment: Speci men Type: BLOOD SPECIMENOrdering Facility: [facility] Address: [address] [place] [address] Performed By: #### 5 7021-8 ####[facility] [id number] [place] [address] [place] Hematocrit (Bld) [Volume fraction] 34.2 % Low 36.0-46.0 [facility] Comment on above: Order Comment: Speci men Type: BLOOD SPECIMENOrdering Facility: [facility] Address: [address] [place] [address] Performed By: #### 5 7021-8 ####[facility] [id number] [place] [address] [place] Hemoglobin (Bld) [Mass/Vol] 11.3 g/dL Low 11.5-15.5 [facility] Comment on above: Order Comment: Speci men Type: BLOOD SPECIMENOrdering Facility: [facility] Address: [address] [place] [address] Performed By: #### 5 7021-8 ####[facility] [id number] [place] [address] [place] Immature granulocytes (Bld) [#/Vol] 10*3/uL Normal <0.10 [facility] Comment on above: Order Comment: Speci men Type: BLOOD SPECIMENOrdering Facility: [facility] Address: [address] [place] [address] Performed By: #### 5 7021-8 ####[facility] [id number] [place] [address] [place] Immature granulocytes/100 WBC (Bld) 0.4 % Normal [facility] Comment on above: Order Comment: Speci men Type: BLOOD SPECIMENOrdering Facility: [facility] Address: [address] [place] [address] Performed By: #### 5 7021-8 ####[facility] MILLAMADEOWNCLIA [id number] [place] [address] [place] Lymphocytes (Bld) [#/Vol] 1.45 10*3/uL Normal 1.00-4.00 [facility] Comment on above: Order Comment: Speci men Type: BLOOD SPECIMENOrdering Facility: [facility] Address: [address] [place] [address] Performed By: #### 5 7021-8 ####[facility] INSTITUTEWMARIA ALEJANDRALIA [id number] [place] [address] [place] Lymphocytes/100 WBC (Bld) 26.8 % Normal [facility] Comment on above: Order Comment: Speci men Type: BLOOD SPECIMENOrdering Facility: [facility] Address: [address] [place] [address] Performed By: #### 5 7021-8 ####[facility] INSTITUTEWNCLIA [id number] [place] [address] [place] MCH (RBC) [Entitic mass] 28.3 pg Normal 26.0-34.0 [facility] Comment on above: Order Comment: Speci men Type: BLOOD SPECIMENOrdering Facility: [facility] Address: [address] [place] [address] Performed By: #### 5 7021-8 ####[facility] MILLTOWNCLIA [id number] [place] [address] [place] MCHC (RBC) [Mass/Vol] 33.0 g/dL Normal 30.5-36.0 [facility] Comment on above: Order Comment: Speci men Type: BLOOD SPECIMENOrdering Facility: [facility] Address: [address] [place] [address] Performed By: #### 5 7021-8 ####[facility]ZJOINT TOWNS[facility] MEMORIAL HOSPITALLIA [id number] [place] [address] [place] MCV (RBC) [Entitic vol] 85.7 fL Normal 80.0-100.0 [facility] Comment on above: Order Comment: Speci men Type: BLOOD SPECIMENOrdering Facility: [facility] Address: [address] [place] [address] Performed By: #### 5 7021-8 ####[facility] [id number] [place] [address] [place] Monocytes (Bld) [#/Vol] 0.41 10*3/uL Normal <0.87 [facility] Comment on above: Order Comment: Speci men Type: BLOOD SPECIMENOrdering Facility: [facility] Address: [address] [place] [address] Performed By: #### 5 7021-8 ####[facility] [id number] [place] [address] [place] Monocytes/100 WBC (Bld) 7.6 % Normal [facility] Comment on above: Order Comment: Speci men Type: BLOOD SPECIMENOrdering Facility: [facility] Address: [address] [place] [address] Performed By: #### 5 7021-8 ####[facility] [id number] [place] [address] [place] Neutrophils (Bld) [#/Vol] 3.38 10*3/uL Normal 1.45-7.50 [facility] Comment on above: Order Comment: Speci men Type: BLOOD SPECIMENOrdering Facility: [facility] Address: [address] [place] [address] Performed By: #### 5 7021-8 ####[facility] HOSPITALLI [id number] [place] [address] [place] Neutrophils/100 WBC (Bld) 62.4 % Normal [facility] Comment on above: Order Comment: Speci men Type: BLOOD SPECIMENOrdering Facility: [facility] Address: [address] [place] [address] Performed By: #### 5 7021-8 ####[facility] [id number] [place] [address] [place] Nucleated RBC (Bld) [#/Vol] 10*3/uL Normal <0.01 [facility] Comment on above: Order Comment: Speci men Type: BLOOD SPECIMENOrdering Facility: [facility] Address: [address] [place] [address] Performed By: #### 5 7021-8 ####[facility] [id number] [place] [address] [place] Nucleated RBC/100 WBC (Bld) [Ratio] 0.0 /100 WBC Normal [facility] Comment on above: Order Comment: Speci men Type: BLOOD SPECIMENOrdering Facility: [facility] Address: [address] [place] [address] Performed By: #### 5 7021-8 ####[facility] [id number] [place] [address] [place] Platelet mean volume (Bld) [Entitic vol] 10.2 fL Normal 9.0-12.7 [facility] Comment on above: Order Comment: Speci men Type: BLOOD SPECIMENOrdering Facility: [facility] Address: [address] [place] [address] Performed By: #### 5 7021-8 ####[facility] [id number] [place] [address] [place] Platelets (Bld) [#/Vol] 226 10*3/uL Normal 150-400 [facility] Comment on above: Order Comment: Speci men Type: BLOOD SPECIMENOrdering Facility: [facility] Address: [address] [place] [address] Performed By: #### 5 7021-8 ####[facility] GEOFFREYAlejandroNCLIA [id number] [place] [address] [place] RBC (Bld) [#/Vol] 3.99 10*6/uL Normal 3.90-5.20 [facility] Comment on above: Order Comment: Speci men Type: BLOOD SPECIMENOrdering Facility: [facility] Address: [address] [place] [address] Performed By: #### 5 7021-8 ####[facility] HOSPITALNCLIA [id number] [place] [address] [place] WBC (Bld) [#/Vol] 5.41 10*3/uL Normal 3.70-11.00 [facility] Comment on above: Order Comment: Speci men Type: BLOOD SPECIMENOrdering Facility: [facility] Address: [address] [place] [address] Performed By: #### 5 7021-8 ####[facility] HOSPITALNCLIA [id number] [place] [address] [place] Comprehensive metabolic 2000 panelon 08-20-2024 Albumin [Mass/Vol] 4.1 g/dL Normal 3.9-4.9 [facility] Comment on above: Order Comment: Speci men Type: BLOOD SPECIMENOrdering Facility: [facility] Address: [address] [place], [place] [address] Performed By: #### 2 4323-8 ####[facility] HOSPITALNCLIA [id number] [place] [address] [place] ALP [Catalytic activity/Vol] 76 U/L Normal 34-123 [facility] Comment on above: Order Comment: Speci men Type: BLOOD SPECIMENOrdering Facility: [facility] Address: [address] [place] [address] Performed By: #### 2 4323-8 ####[facility] LORENA MILLTOWNCLIA [id number] [place] [address] [place] ALT [Catalytic activity/Vol] 18 U/L Normal 7-38 [facility] Comment on above: Order Comment: Speci men Type: BLOOD SPECIMENOrdering Facility: [facility] Address: [address] [place] [address] Performed By: #### 2 4323-8 ####[facility] MILLTOWNCLIA [id number] [place] [address] [place] Anion gap [Moles/Vol] 9 mmol/L Normal 8-15 [facility] Comment on above: Order Comment: Speci men Type: BLOOD SPECIMENOrdering Facility: [facility] Address: [address] [place] [address] Performed By: #### 2 4323-8 ####[facility] INSTITUTEWNCLIA [id number] [place] [address] [place] AST [Catalytic activity/Vol] 17 U/L Normal 13-35 [facility] Comment on above: Order Comment: Speci men Type: BLOOD SPECIMENOrdering Facility: [facility] Address: [address] [place] [address] Performed By: #### 2 4323-8 ####[facility] INSTITUTEWNCLIA [id number] [place] [address] [place] Bilirubin [Mass/Vol] 0.2 mg/dL Normal 0.2-1.3 [facility] Comment on above: Order Comment: Speci men Type: BLOOD SPECIMENOrdering Facility: [facility] Address: [address] [place] [address] Performed By: #### 2 4323-8 ####[facility] INSTITUTEWNCLIA [id number] [place] [address] [place] Calcium [Mass/Vol] 9.3 mg/dL Normal 8.5-10.2 [facility] Comment on above: Order Comment: Speci men Type: BLOOD SPECIMENOrdering Facility: [facility] Address: [address] [place] [address] Performed By: #### 2 4323-8 ####[facility] HOSPITALNCLIA [id number] [place] [address] [place] Chloride [Moles/Vol] 105 mmol/L Normal 98-107 [facility] Comment on above: Order Comment: Speci men Type: BLOOD SPECIMENOrdering Facility: [facility] Address: [address] [place] [address] Performed By: #### 2 4323-8 ####[facility] [id number] [place] [address] [place] CO2 [Moles/Vol] 24 mmol/L Normal 22-30 [facility] Comment on above: Order Comment: Speci men Type: BLOOD SPECIMENOrdering Facility: [facility] Address: [address] [place] [address] Performed By: #### 2 4323-8 ####[facility]OSPITALLIA [id number] [place] [address] [place] Creatinine [Mass/Vol] 0.65 mg/dL Normal 0.58-0.96 [facility] Comment on above: Order Comment: Speci men Type: BLOOD SPECIMENOrdering Facility: [facility] Address: [address] [place] [address] Performed By: #### 2 4323-8 ####[facility] [id number] [address] [place] Creatinine and Glomerular filtration rate.predicted panel (S/P/Bld) 125 mL/min/1.73m??? Normal >=60 [facility] Comment on above: Order Comment: Speci men Type: BLOOD SPECIMENOrdering Facility: [facility] Address: [address] [place] [address] Result Comment: Edwige mated Glomerular Filtration Rate (eGFR) is calculated using the 2020 CKD-EPI creatinine equation. This equation utilizes serum creatinine, sex, and age as parameters. The creatinine assay has traceable calibration to isotope dilution-mass spectrometry. Refer to KDIGO guidelines for clinical interpretation. In patients with unstable renal function, e.g. those with acute kidney injury, the eGFR may not accurately reflect actual GFR. Performed By: #### 2 4323-8 ####[facility] [id number] [place] [address] [place] Glucose [Mass/Vol] 111 mg/dL High 74-99 [facility] Comment on above: Order Comment: Ronnie alonzo Type: BLOOD SPECIMENOrdering Facility: [facility] Address: [address] [place] [address] Result Comment: The [place] Diabetes Association (ADA) provides guidance for cutoff values for fasting glucose and random glucose. The ADA defines fasting as no caloric intake for at least 8 hours. Fasting plasma glucose results between 100 to 125 mg/dL indicate increased risk for diabetes (prediabetes).Fasting plasma glucose results greater than or equal to 126 mg/dL meet the criteria for diagnosis of diabetes. In the absence of unequivocal hyperglycemia, results should be confirmed by repeat testing. In a patient with classic symptoms of hyperglycemia or hyperglycemic crisis, random plasma glucose results greater than or equal to 200 mg/dL meet the criteria for diagnosis of diabetes.Reference: Standards of Medical Care in Diabetes 2016, [place] Diabetes Association. Diabetes Care. 2016.39(Suppl 1). Performed By: #### 2 4323-8 ####[facility] [id number] [place] [address] [place] Potassium [Moles/Vol] 3.8 mmol/L Normal 3.7-5.1 [facility] Comment on above: Order Comment: Ronnie alonzo Type: BLOOD SPECIMENOrdering Facility: [facility] Address: [address] [place] [address] Performed By: #### 2 4323-8 ####[facility] MILLTOWNCLIA [id number] [place] [address] [place] Protein [Mass/Vol] 7.3 g/dL Normal 6.3-8.0 [facility] Comment on above: Order Comment: Speci men Type: BLOOD SPECIMENOrdering Facility: [facility] Address: [address] [place] [address] Performed By: #### 2 4323-8 ####[facility]STITUTEWNCLIA [id number] [place] [address] [place] Sodium [Moles/Vol] 138 mmol/L Normal 136-144 [facility] Comment on above: Order Comment: Speci men Type: BLOOD SPECIMENOrdering Facility: [facility] Address: [address] [place] [address] Performed By: #### 2 4323-8 ####[facility]OSPITALL[facility] [id number] [place] [address] [place] Urea nitrogen [Mass/Vol] 14 mg/dL Normal 7-21 [facility] Comment on above: Order Comment: Speci men Type: BLOOD SPECIMENOrdering Facility: [facility] Address: [address] [place] [address] Performed By: #### 2 4323-8 ####[facility]ITALNCLIA [id number] [place] [address] [place] ITRACONAZOLE BLOODon 025 HYDROXYITRACONAZOLE 2.7 ug/mL Normal [facility] Comment on above: Order Comment: Speci men Type: BLOOD SPECIMENOrdering Facility: [facility] Address: [address] [place] [address] Result Comment: Rang es are based on trough draw at steady-state concentration. Test performed by LC-MS/MS. Ranges are based off the Itraconazole trough levels alone, not combined with hydroxyitraconazole.Therapeutic: >1.0 ug/mLProphylaxis: >0.4 ug/mLToxic: >3.0 ug/mL (Toxic values will not be called)The therapeutic, prophylactic, and toxic ranges were based on the 2016 Infectious Disease Society of [place]'s (IDSA) Clinical Practice Guidelines for the Management of Aspergillosis and Candidiasis and consultation from [facility]'s Department of Infectious Disease.Reference ranges and high/low indicator flags are provided as general guidelines only. The treating physician must determine appropriate target levels/dosing based on the specific clinical situation.This test was developed, and its performance characteristics determined by the [facility] Department of Pathology and Laboratory Medicine. It has not been cleared or approved by the FDA. The [facility] Department of Pathology and Laboratory Medicine is regulated under CLIA as qualified to perform high-complexity testing. This test is used for clinical purposes. It should not be regarded as investigational or for research. Performed By: #### I TRAC ####[place] HOSPITAL[facility] [id number] [place] [address] [place] ITRACONAZOLE BLD 2.4 ug/mL Normal 0.6-2.9 [facility] Comment on above: Order Comment: Speci men Type: BLOOD SPECIMENOrdering Facility: [facility] Address: [address] [place] [address] Performed By: #### I TRAC ####[facility] [id number] [place] [address] [place] US Needle Biopsy/Soft Tissue on 08-15-2024 US Needle Biopsy/Soft Tissue [facility] Services [address] [place] [address] US Needle Biopsy/Soft Tissue MR#: [id number] Acct: [id number] Name: MATT CALABRESE HELIO Rep #: [id number] : 2000 F 24 From: Adam Yuen PCP: ORIN Beatty Status: [facility] Study: US Needle Biopsy/Soft Tissue Date of Exam: Exam# [id number] Ordering Dr: Scott,Marquita M[employer]IM[employer] ASSISTANT- C PROCEDURE: US NEEDLE BIOPSY/SOFT TISSUE 08/15/2024 REASON FOR EXAM: Histoplasmosis. TECHNIQUE: See below. COMPARISON: Right upper quadrant sonogram of July 16, 2024. FINDINGS: Informed consent was obtained. Conscious sedation and analgesia were utilized. Ultrasound guidance, aseptic technique, and local anesthesia were employed. Single intercostal stick laterally directly into the liver was performed using 17 gauge trocar needle. Subsequently, 2 separate 18 gauge core specimens were obtained at different depths and were submitted in formalin for pathology interpretation. The patient tolerated the procedure well was kept for brief observation stay prior to discharge home. US/US Needle Biopsy/Soft Tissue IMPRESSION: Uneventful ultrasound-guided liver biopsy as described. Reading Location: [place] [address] CC: ORIN Priest; ORIN Chavez Ingot Header: Signed Normal [facility] .Auto Diffon 08-13-2024 Basophil, Absolute 0.0 10 3/mcL Normal 0.0-0.2 [facility] Comment on above: Performed By: #### A SAMUEL, FES, CBC, A1C, FERR, ADIFF #### [place] [address] #### B12, FOL, INSLN #### [address] [address] Basophils/100 WBC (Bld) 0.4 % Normal 0.0-2.5 [facility] Comment on above: Performed By: #### A SAMUEL, FES, CBC, A1C, FERR, ADIFF #### [address] [address] #### B12, FOL, INSLN #### [address] [address] Eosinophil, Absolute 0.1 10 3/mcL Normal 0.0-0.7 [facility] Comment on above: Performed By: #### A SAMUEL, FES, CBC, A1C, FERR, ADIFF #### [place] [address] #### B12, FOL, INSLN #### [address] [address] Eosinophils/100 WBC (Bld) 1.0 % Normal 0.0-7.0 [facility] Comment on above: Performed By: #### A SAMUEL, FES, CBC, A1C, FERR, ADIFF #### [address] [address] #### B12, FOL, INSLN #### [address] [address] Lymphocyte, Absolute 1.7 10 3/mcL Normal 0.9-4.3 [facility] Comment on above: Performed By: #### A SAMUEL, FES, CBC, A1C, FERR, ADIFF #### [place] [address] #### B12, FOL, INSLN #### [address] [address] Lymphocytes/100 WBC (Bld) 26.0 % Normal 20.0-40.0 [facility] Comment on above: Performed By: #### A SAMUEL, FES, CBC, A1C, FERR, ADIFF #### [place] [address] #### B12, FOL, INSLN #### [address] [address] Monocyte, Absolute 0.4 10 3/mcL Normal 0.1-1.4 [facility] Comment on above: Performed By: #### A SAMUEL, FES, CBC, A1C, FERR, ADIFF #### [place] [address] #### B12, FOL, INSLN #### [address] [address] Monocytes/100 WBC (Bld) 5.5 % Normal 2.0-13.0 [facility] Comment on above: Performed By: #### A SAMUEL, FES, CBC, A1C, FERR, ADIFF #### [place] [address] #### B12, FOL, INSLN #### [address] [address] Neutrophils/100 WBC (Bld) 67.1 % Normal 50.0-75.0 [facility] Comment on above: Performed By: #### A SAMUEL, FES, CBC, A1C, FERR, ADIFF #### [address] [address] #### B12, FOL, INSLN #### [address] [address] .NEUABSon 08-13-2024 Neutrophil, Absolute 4.3 10 3/mcL Normal 2.3-8.1 [facility] Comment on above: Performed By: #### A SAMUEL, FES, CBC, A1C, FERR, ADIFF #### [place] [address] #### B12, FOL, INSLN #### [place] [address] A1Con 08-13-2024 Glucose [Mass/Vol] 120 mg/dL Normal [facility] Comment on above: Result Comment: Edwige mated Average Glucose calculated by equation ((28.7xA1C)-46.7) Estimated average glucose (eAG) is a calculated value from Hemoglobin A1C and is scheduling representative of the average blood glucose level in the last 2-3 month period. Normal range: less than 114 mg/dL Performed By: #### A SAMUEL, FES, CBC, A1C, FERR, ADIFF #### [place] [address] #### B12, FOL, INSLN #### [place] [address] HbA1c (Bld) [Mass fraction] 5.8 % Normal 4.3-6.4 [facility] Comment on above: Performed By: #### A SAMUEL, FES, CBC, A1C, FERR, ADIFF #### [place] [address] #### B12, FOL, INSLN #### [address] [address] B12on 08-13-2024 Cobalamin (Vitamin B12) [Mass/Vol] 633 pg/mL Normal 211-911 [facility] Comment on above: Performed By: #### A SAMUEL, FES, CBC, A1C, FERR, ADIFF #### [place] [address] #### B12, FOL, INSLN #### [address] [address] CBCon 08-13-2024 Erythrocyte distribution width (RBC) [Ratio] 14.2 % Normal 11.5-15.5 [facility] Comment on above: Performed By: #### A SAMUEL, FES, CBC, A1C, FERR, ADIFF #### [place] [address] #### B12, FOL, INSLN #### [place] [address] Hematocrit (Bld) [Volume fraction] 35.7 % Normal 34.0-46.0 [facility] Comment on above: Performed By: #### A SAMUEL, FES, CBC, A1C, FERR, ADIFF #### [place] [address] #### B12, FOL, INSLN #### [place] [address] Hgb 11.8 G/dL Low 12.0-16.0 [facility] Comment on above: Performed By: #### A SAMUEL, FES, CBC, A1C, FERR, ADIFF #### [place] [address] #### B12, FOL, INSLN #### [place] [address] MCH (RBC) [Entitic mass] 28.4 pg Normal 27.0-33.0 [facility] Comment on above: Performed By: #### A SAMUEL, FES, CBC, A1C, FERR, ADIFF #### [place] [address] #### B12, FOL, INSLN #### [place] [address] MCHC 33.2 G/dL Normal 32.0-36.0 [facility] Comment on above: Performed By: #### A SAMUEL, FES, CBC, A1C, FERR, ADIFF #### [place] [address] #### B12, FOL, INSLN #### [address] [address] MCV (RBC) [Entitic vol] 85.7 fL Normal 80.0-99.0 [facility] Comment on above: Performed By: #### A SAMUEL, FES, CBC, A1C, FERR, ADIFF #### [place] [address] #### B12, FOL, INSLN #### [address] [address] Platelet 222 10 3/mcL Normal 150-450 [facility] Comment on above: Performed By: #### A SAMUEL, FES, CBC, A1C, FERR, ADIFF #### [place] [address] #### B12, FOL, INSLN #### [address] [address] Platelet mean volume (Bld) [Entitic vol] 8.9 fL Normal 6.6-10.5 [facility] Comment on above: Performed By: #### A SAMUEL, FES, CBC, A1C, FERR, ADIFF #### [place] [address] #### B12, FOL, INSLN #### [place] [address] RBC 4.16 10 6/mcL Normal 4.10-5.30 [facility] Comment on above: Performed By: #### A SAMUEL, FES, CBC, A1C, FERR, ADIFF #### [place] [address] #### B12, FOL, INSLN #### [address] [address] WBC 6.5 10 3/mcL Normal 4.5-10.8 [facility] Comment on above: Performed By: #### A SAMUEL, FES, CBC, A1C, FERR, ADIFF #### [facility] [address] [place], [place] [address] #### B12, FOL, INSLN #### [facility] [address] [place] [address] CBC W Auto Differential pane l (Bld)on 08-13-2024 Basophils (Bld) [#/Vol] [facility] Basophils/100 WBC (Bld) 0.3 % [facility] Differential cell count method Nom (Bld) Auto [facility] Eosinophils (Bld) [#/Vol] 0.08 10*3/uL [facility] Eosinophils/100 WBC (Bld) 1.2 % [facility] Erythrocyte distribution width (RBC) [Ratio] 13.3 % 11.5 - 15.0 % [facility] Hematocrit (Bld) [Volume fraction] 37.7 % 36.0 - 46.0 % [facility] Hemoglobin (Bld) [Mass/Vol] 12.1 g/dL 11.5 - 15.5 g/dL [facility] Immature granulocytes (Bld) [#/Vol] [facility] Immature granulocytes/100 WBC (Bld) 0.3 % [facility] Lymphocytes (Bld) [#/Vol] 1.85 10*3/uL [facility] Lymphocytes/100 WBC (Bld) 27.4 % [facility] MCH (RBC) [Entitic mass] 28.4 pg 26.0 - 34.0 pg [facility] MCHC (RBC) [Mass/Vol] 32.1 g/dL 30.5 - 36.0 g/dL [facility] MCV (RBC) [Entitic vol] 88.5 fL 80.0 - 100.0 fL [facility] Monocytes (Bld) [#/Vol] 0.43 10*3/uL [facility] Monocytes/100 WBC (Bld) 6.4 % [facility] Neutrophils (Bld) [#/Vol] 4.34 10*3/uL [facility] Neutrophils/100 WBC (Bld) 64.4 % [facility] Nucleated RBC (Bld) [#/Vol] [facility] Nucleated RBC/100 WBC (Bld) [Ratio] 0 % /100 WBC [facility] Platelet mean volume (Bld) [Entitic vol] 11 fL 9.0 - 12.7 fL [facility] Platelets (Bld) [#/Vol] 257 10*3/uL [facility] RBC (Bld) [#/Vol] 4.26 10*6/uL 3.90 - 5.2 0 m/uL [facility] WBC (Bld) [#/Vol] 6.74 10*3/uL [facility] Basophils (Bld) [#/Vol] 10*3/uL Normal <0.11 [facility] Comment on above: Order Comment: Speci men Type: BLOOD SPECIMENOrdering Facility: [facility] Address: [address] [place] [address] Performed By: #### 5 7021-8 ####[facility] LABCLIA [id number] [place] [address] [place] Basophils/100 WBC (Bld) 0.3 % Normal [facility] Comment on above: Order Comment: Speci men Type: BLOOD SPECIMENOrdering Facility: [facility] Address: [address] [place] [address] Performed By: #### 5 7021-8 ####[facility] LABCLIA [id number] [place] [address] [place] Differential cell count method Nom (Bld) Auto Normal [facility] Comment on above: Order Comment: Speci men Type: BLOOD SPECIMENOrdering Facility: [facility] Address: [address] [place] [address] Performed By: #### 5 7021-8 ####[facility] LABCLIA [id number] [place] [address] [place] Eosinophils (Bld) [#/Vol] 0.08 10*3/uL Normal <0.46 [facility] Comment on above: Order Comment: Speci men Type: BLOOD SPECIMENOrdering Facility: [facility] Address: [address] [place] [address] Performed By: #### 5 7021-8 ####[facility] LABCLIA [id number] [address], [facility] [place] Eosinophils/100 WBC (Bld) 1.2 % Normal [facility] Comment on above: Order Comment: Speci men Type: BLOOD SPECIMENOrdering Facility: [facility] Address: [address] [place] [address] Performed By: #### 5 7021-8 ####[facility] LABCLIA [id number] [address], [place] [address] [place] Erythrocyte distribution width (RBC) [Ratio] 13.3 % Normal 11.5-15.0 [facility] Comment on above: Order Comment: Speci men Type: BLOOD SPECIMENOrdering Facility: [facility] Address: [address] [place] [address] Performed By: #### 5 7021-8 ####[facility] LABCLIA [id number] [address], [place] [address] [place] Hematocrit (Bld) [Volume fraction] 37.7 % Normal 36.0-46.0 [facility] Comment on above: Order Comment: Speci men Type: BLOOD SPECIMENOrdering Facility: [facility] Address: [address] [place] [address] Performed By: #### 5 7021-8 ####[facility] LABCLIA [id number] [address], [place] [address] [place] Hemoglobin (Bld) [Mass/Vol] 12.1 g/dL Normal 11.5-15.5 [facility] Comment on above: Order Comment: Speci men Type: BLOOD SPECIMENOrdering Facility: [facility] Address: [address] [place] [address] Performed By: #### 5 7021-8 ####[facility] LABCLIA [id number] [address], [facility] [place] Immature granulocytes (Bld) [#/Vol] 10*3/uL Normal <0.10 [facility] Comment on above: Order Comment: Speci men Type: BLOOD SPECIMENOrdering Facility: [facility] Address: [address] [place] [address] Performed By: #### 5 7021-8 ####[facility] LABCLIA [id number] [address] [address] [place] Immature granulocytes/100 WBC (Bld) 0.3 % Normal [facility] Comment on above: Order Comment: Speci men Type: BLOOD SPECIMENOrdering Facility: [facility] Address: [address] [place] [address] Performed By: #### 5 7021-8 ####[facility] LABCLIA [id number] [address], [place] [address] [place] Lymphocytes (Bld) [#/Vol] 1.85 10*3/uL Normal 1.00-4.00 [facility] Comment on above: Order Comment: Speci men Type: BLOOD SPECIMENOrdering Facility: [facility] Address: [address] [place] [address] Performed By: #### 5 7021-8 ####[facility] LABCLIA [id number] [place] [address] [place] Lymphocytes/100 WBC (Bld) 27.4 % Normal [facility] Comment on above: Order Comment: Speci men Type: BLOOD SPECIMENOrdering Facility: [facility] Address: [address] [place] [address] Performed By: #### 5 7021-8 ####[facility] LABCLIA [id number] [place] [address] [place] MCH (RBC) [Entitic mass] 28.4 pg Normal 26.0-34.0 [facility] Comment on above: Order Comment: Speci men Type: BLOOD SPECIMENOrdering Facility: [facility] Address: [address] [place] [address] Performed By: #### 5 7021-8 ####[facility] LABCLIA [id number] [place] [address] [place] MCHC (RBC) [Mass/Vol] 32.1 g/dL Normal 30.5-36.0 [facility] Comment on above: Order Comment: Speci men Type: BLOOD SPECIMENOrdering Facility: [facility] Address: [address] [place] [address] Performed By: #### 5 7021-8 ####[facility] LABCLIA [id number] [place] [address] [place] MCV (RBC) [Entitic vol] 88.5 fL Normal 80.0-100.0 [facility] Comment on above: Order Comment: Speci men Type: BLOOD SPECIMENOrdering Facility: [facility] Address: [address] [place] [address] Performed By: #### 5 7021-8 ####[facility] LABIA [id number] [address], [place] [address] [place] Monocytes (Bld) [#/Vol] 0.43 10*3/uL Normal <0.87 [facility] Comment on above: Order Comment: Speci men Type: BLOOD SPECIMENOrdering Facility: [facility] Address: [address] [place] [address] Performed By: #### 5 7021-8 ####[facility] LABCLIA [id number] [place] [address] [place] Monocytes/100 WBC (Bld) 6.4 % Normal [facility] Comment on above: Order Comment: Speci men Type: BLOOD SPECIMENOrdering Facility: [facility] Address: [address] [place] [address] Performed By: #### 5 7021-8 ####[facility] LABCLIA [id number] [address], [facility] [place] Neutrophils (Bld) [#/Vol] 4.34 10*3/uL Normal 1.45-7.50 [facility] Comment on above: Order Comment: Speci men Type: BLOOD SPECIMENOrdering Facility: [facility] Address: [address] [place] [address] Performed By: #### 5 7021-8 ####[facility] LABCLIA [id number] [place] [address] [place] Neutrophils/100 WBC (Bld) 64.4 % Normal [facility] Comment on above: Order Comment: Speci men Type: BLOOD SPECIMENOrdering Facility: [facility] Address: [address] [place] [address] Performed By: #### 5 7021-8 ####[facility] LABCLIA [id number] [place] [address] [place] Nucleated RBC (Bld) [#/Vol] 10*3/uL Normal <0.01 [facility] Comment on above: Order Comment: Speci men Type: BLOOD SPECIMENOrdering Facility: [facility] Address: [address] [place] [address] Performed By: #### 5 7021-8 ####[facility] LABCLIA [id number] [place] [address] [place] Nucleated RBC/100 WBC (Bld) [Ratio] 0.0 /100 WBC Normal [facility] Comment on above: Order Comment: Speci men Type: BLOOD SPECIMENOrdering Facility: [facility] Address: [address] [place] [address] Performed By: #### 5 7021-8 ####[facility] LABCLIA [id number] [place] [address] [place] Platelet mean volume (Bld) [Entitic vol] 11.0 fL Normal 9.0-12.7 [facility] Comment on above: Order Comment: Speci men Type: BLOOD SPECIMENOrdering Facility: [facility] Address: [address] [place] [address] Performed By: #### 5 7021-8 ####[facility] LABCLIA [id number] [address] [address] [place] Platelets (Bld) [#/Vol] 257 10*3/uL Normal 150-400 [facility] Comment on above: Order Comment: Speci men Type: BLOOD SPECIMENOrdering Facility: [facility] Address: [address] [place] [address] Performed By: #### 5 7021-8 ####[facility] LABIA [id number] [place] [address] [place] RBC (Bld) [#/Vol] 4.26 10*6/uL Normal 3.90-5.20 [facility] Comment on above: Order Comment: Speci men Type: BLOOD SPECIMENOrdering Facility: [facility] Address: [address] [place] [address] Performed By: #### 5 7021-8 ####[facility] LABIA [id number] [place] [address] [place] WBC (Bld) [#/Vol] 6.74 10*3/uL Normal 3.70-11.00 [facility] Comment on above: Order Comment: Speci men Type: BLOOD SPECIMENOrdering Facility: [facility] Address: [address] [place] [address] Performed By: #### 5 7021-8 ####[facility] LABIA [id number] [address] [address] [place] CNPNon 08-13-2024 CNPN Normal [facility] CRP SerPl-mCncon 08-13-2024 CRP [Mass/Vol] 0.5 mg/dL Normal <0.9 [facility] Comment on above: Order Comment: Speci men Type: BLOOD SPECIMENOrdering Facility: [facility] Address: [address] [place] [address] Performed By: #### 2 276-, 1987-09, ####[facility] LABCLIA [id number] [address] [place] [address] [place] Comprehensive metabolic 2000 panelon 08-13-2024 Albumin [Mass/Vol] 4.3 g/dL Normal 3.9-4.9 [facility] Comment on above: Order Comment: Speci men Type: BLOOD SPECIMENOrdering Facility: [facility] Address: [address] [place] [address] Performed By: #### 2 276-4, 1987-09, ####[facility] LABCLIA [id number] [address] [place] [address] [place] ALP [Catalytic activity/Vol] 73 U/L Normal 34-123 [facility] Comment on above: Order Comment: Speci men Type: BLOOD SPECIMENOrdering Facility: [facility] Address: [address] [place], [place] [address] Performed By: #### 2 276-4, 1987-09, ####[facility] LABCLIA [id number] [address] [address] [place] ALT [Catalytic activity/Vol] 33 U/L Normal 7-38 [facility] Comment on above: Order Comment: Speci men Type: BLOOD SPECIMENOrdering Facility: [facility] Address: [address] [place], [place] [address] Performed By: #### 2 276-4, 1987-09, ####[facility] LABCLIA [id number] [address] [place] [address] [place] Anion gap [Moles/Vol] 13 mmol/L Normal 8-15 [facility] Comment on above: Order Comment: Speci men Type: BLOOD SPECIMENOrdering Facility: [facility] Address: [address] [place], [place] [address] Performed By: #### 2 276-4, 1987-09, ####[facility] LABCLIA [id number] [address] [place] [address] [place] AST [Catalytic activity/Vol] 23 U/L Normal 13-35 [facility] Comment on above: Order Comment: Speci men Type: BLOOD SPECIMENOrdering Facility: [facility] Address: [address] [place], [place] [address] Performed By: #### 2 276-4, 1987-09, ####[facility] LABCLIA [id number] [address] [place] [address] [place] Bilirubin [Mass/Vol] 0.3 mg/dL Normal 0.2-1.3 [facility] Comment on above: Order Comment: Speci men Type: BLOOD SPECIMENOrdering Facility: [facility] Address: [address] [place] [address] Performed By: #### 2 276-4, 1987-09, ####[facility] LABCLIA [id number] [address] [place] [address] [place] Calcium [Mass/Vol] 9.7 mg/dL Normal 8.5-10.2 [facility] Comment on above: Order Comment: Speci men Type: BLOOD SPECIMENOrdering Facility: [facility] Address: [address] [place], [place] [address] Performed By: #### 2 276-4, 1987-09, ####[facility] LABCLIA [id number] [address] [place] [address] [place] Chloride [Moles/Vol] 105 mmol/L Normal 98-107 [facility] Comment on above: Order Comment: Speci men Type: BLOOD SPECIMENOrdering Facility: [facility] Address: [address] [place], [place] [address] Performed By: #### 2 276-4, 1987-09, ####[facility] LABCLIA [id number] [address] [place] [address] [place] CO2 [Moles/Vol] 23 mmol/L Normal 22-30 [facility] Comment on above: Order Comment: Speci men Type: BLOOD SPECIMENOrdering Facility: [facility] Address: [address] [place] [address] Performed By: #### 2 276-4, 1987-09, ####[facility] LABCLIA [id number] [place] [address] [place] Creatinine [Mass/Vol] 0.61 mg/dL Normal 0.58-0.96 [facility] Comment on above: Order Comment: Speci men Type: BLOOD SPECIMENOrdering Facility: [facility] Address: [address] [place] [address] Performed By: #### 2 276-, 1987-09, ####[facility] LABIA [id number] [place] [id number] [place] Creatinine and Glomerular filtration rate.predicted panel (S/P/Bld) 127 mL/min/1.73m??? Normal >=60 [facility] Comment on above: Order Comment: Speci men Type: BLOOD SPECIMENOrdering Facility: [facility] Address: [address] [place] [address] Result Comment: Edwige mated Glomerular Filtration Rate (eGFR) is calculated using the 2020 CKD-EPI creatinine equation. This equation utilizes serum creatinine, sex, and age as parameters. The creatinine assay has traceable calibration to isotope dilution-mass spectrometry. Refer to KDIGO guidelines for clinical interpretation. In patients with unstable renal function, e.g. those with acute kidney injury, the eGFR may not accurately reflect actual GFR. Performed By: #### 2 276-4, 1987-09, ####[facility] LABCLIA [id number] [address] [address] [place] Glucose [Mass/Vol] 88 mg/dL Normal 74-99 [facility] Comment on above: Order Comment: Speci men Type: BLOOD SPECIMENOrdering Facility: [facility] Address: [address] [place], [place] [address] Result Comment: The [place] [employer] (ADA) provides guidance for cutoff values for fasting glucose and random glucose. The ADA defines fasting as no caloric intake for at least 8 hours. Fasting plasma glucose results between 100 to 125 mg/dL indicate increased risk for diabetes (prediabetes).Fasting plasma glucose results greater than or equal to 126 mg/dL meet the criteria for diagnosis of diabetes. In the absence of unequivocal hyperglycemia, results should be confirmed by repeat testing. In a patient with classic symptoms of hyperglycemia or hyperglycemic crisis, random plasma glucose results greater than or equal to 200 mg/dL meet the criteria for diagnosis of diabetes.Reference: Standards of Medical Care in Diabetes 2016, [place] [employer]. Diabetes Care. 2016.39(Suppl 1). Performed By: #### 2 276-4, ####[facility] LABCLIA [id number] [place] [address] [place] [place] Potassium [Moles/Vol] 3.9 mmol/L Normal 3.7-5.1 [facility] Comment on above: Order Comment: Speci men Type: BLOOD SPECIMENOrdering Facility: [facility] Address: [address] [place], [place] [address] Performed By: #### 2 276-, ####[facility] LABIA [id number] [address] [address] [place] Protein [Mass/Vol] 7.8 g/dL Normal 6.3-8.0 [facility] Comment on above: Order Comment: Speci men Type: BLOOD SPECIMENOrdering Facility: [facility] Address: [address] [place], [place] [address] Performed By: #### 2 276-, ####[facility] LABCLIA [id number] [address] [address] [place] Sodium [Moles/Vol] 141 mmol/L Normal 136-144 [facility] Comment on above: Order Comment: Speci men Type: BLOOD SPECIMENOrdering Facility: [facility] Address: [address] [place] [address] Performed By: #### 2 276-4, 1987-09, ####[facility] LABCLIA [id number] [address], [facility] [place] Urea nitrogen [Mass/Vol] 12 mg/dL Normal 7-21 [facility] Comment on above: Order Comment: Speci men Type: BLOOD SPECIMENOrdering Facility: [facility] Address: [address] [place], [place] [address] Performed By: #### 2 276-4, 1987-09, ####[facility] LABCLIA [id number] [address], [facility] [place] Cryptoc Ag Spec Ql LAon 07-20 Cryptococcus sp Ag LA Ql (Unsp spec) CRYPTOCOCCUS ANTIGEN : Cryptococcal Antigen NOT DETECTED by Lateral flow immunoassay. Normal [facility] Comment on above: Performed By: #### 4 3228-6 ####[facility] LABCLIA [id number] [place] [id number] [place] Dion 08-13-2024 Ferritin [Mass/Vol] 48.0 ng/mL Normal 8.0-252.0 [facility] Comment on above: Performed By: #### A SAMUEL, FES, CBC, A1C, FERR, ADIFF #### [address] [address] #### B12, FOL, INSLN #### [place] [address] FESon 08-13-2024 Iron [Mass/Vol] 66 ug/dL Normal 50-170 [facility] Comment on above: Performed By: #### A SAMUEL, FES, CBC, A1C, FERR, ADIFF #### [address] [address] #### B12, FOL, INSLN #### [address] [address] Iron Sat 19 % Normal [facility] Comment on above: Performed By: #### A SAMUEL, FES, CBC, A1C, FERR, ADIFF #### [address] [address] #### B12, FOL, INSLN #### [address] [address] TIBC 340 mcg/dL Normal 250-450 [facility] Comment on above: Performed By: #### A SAMUEL, FES, CBC, A1C, FERR, ADIFF #### [address] [address] #### B12, FOL, INSLN #### [address] [address] FOLon 08-13-2024 Folate 10.98 ng/mL Normal 5.38-24.00 [facility] Comment on above: Performed By: #### G FR, BMP #### [address] [address] Ferritin SerPl-mCncon 2024 Ferritin [Mass/Vol] 55.5 ng/mL Normal 14.7-205.1 [facility] Comment on above: Order Comment: Speci men Type: BLOOD SPECIMENOrdering Facility: [facility] Address: [address] [place] [address] Performed By: #### 2 276-4, 1987-, 359[address]-9 ####[facility] LABCLIA [id number] [place] [address] [place] INSLNon 08-13-2024 Insulin 9.28 munit/L Normal 2.60-37.60 [facility] Comment on above: Performed By: #### G FR, BMP #### [address] [address] CBC W/Diff, Automatedon 07-20 Absolute Lymph 1.58 X10 3/uL Normal 0.83-4.51 [facility] Comment on above: Performed By: #### L 300.4310, L100.0100, L300.3900 ####[facility] [address] [place], [address] Absolute Neut 4.0 X10 3/uL Normal 2.0-7.7 [facility] Comment on above: Performed By: #### L 300.4310, L100.0100, L300.3900 ####[facility] [address] [place], [address] Basophils/100 WBC (Bld) 0.3 % Normal 0-1 [facility] Comment on above: Performed By: #### L 300.4310, L100.0100, L300.3900 ####[facility] [address] [place], [address] Eosinophils/100 WBC (Bld) 1.6 % Normal 0-5 [facility] Comment on above: Performed By: #### L 300.4310, L100.0100, L300.3900 ####[facility] [address] [place], [address] Erythrocyte distribution width (RBC) [Ratio] 13.2 % Normal 11.6-14.6 [facility] Comment on above: Performed By: #### L 300.4310, L100.0100, L300.3900 ####[facility] [address] [place], [address] Hematocrit (Bld) [Volume fraction] 34.2 % Low 37-47 [facility] Comment on above: Performed By: #### L 300.4310, L100.0100, L300.3900 ####[facility] [address] [place], [address] Hemoglobin (Bld) [Mass/Vol] 10.8 g/dL Low 12.0-15.0 [facility] Comment on above: Performed By: #### L 300.4310, L100.0100, L300.3900 ####[facility] [address] [place], [address] IG% 0.200 Normal 0.0-0.9 [facility] Comment on above: Result Comment: IG% - Immature Granulocytes (promyelocytes, myelocytes and metamyelocytes) > 1% indicates that a LEFT SHIFT is Present. Performed By: #### L 300.4310, L100.0100, L300.3900 ####[facility] [address] [place], [address] Lymphocytes/100 WBC (Bld) 25.6 % Normal 19-41 [facility] Comment on above: Performed By: #### L 300.4310, L100.0100, L300.3900 ####[facility] [address] [place], [address] MCH (RBC) [Entitic mass] 27.8 pg Normal 27.0-32.0 [facility] Comment on above: Performed By: #### L 300.4310, L100.0100, L300.3900 ####[facility] [address] [place], [address] MCHC (RBC) [Mass/Vol] 31.6 g/dL Low 32-36 [facility] Comment on above: Performed By: #### L 300.4310, L100.0100, L300.3900 ####[facility] [address] [place], [address] MCV (RBC) [Entitic vol] 88.1 fL Normal 81-99 [facility] Comment on above: Performed By: #### L 300.4310, L100.0100, L300.3900 ####[facility] [address] [place], [address] Monocytes/100 WBC (Bld) 7.5 % Normal 0-10 [facility] Comment on above: Performed By: #### L 300.4310, L100.0100, L300.3900 ####[facility] [address] [place], [address] Neutrophils/100 WBC (Bld) 64.8 % Normal 47-70 [facility] Comment on above: Performed By: #### L 300.4310, L100.0100, L300.3900 ####[facility] [address] [place], [address] Nucleated RBC (Bld) [#/Vol] 0 10*3/uL Normal 0-5 [facility] Comment on above: Performed By: #### L 300.4310, L100.0100, L300.3900 ####[facility] [address] [place], [address] Platelet mean volume (Bld) [Entitic vol] 10.7 fL Normal 6.2-12.0 [facility] Comment on above: Performed By: #### L 300.4310, L100.0100, L300.3900 ####[facility] [address] [place], [address] Platelets (Bld) [#/Vol] 263 10*3/uL Normal 150-450 [facility] Comment on above: Performed By: #### L 300.4310, L100.0100, L300.3900 ####[facility] [address] [place], [address] RBC (Bld) [#/Vol] 3.88 10*6/uL Low 4.2-5.4 [facility] Comment on above: Performed By: #### L 300.4310, L100.0100, L300.3900 ####[facility] [address] [place], [address] RDW SD 42.5 fl Normal 35.1-43.9 [facility] Comment on above: Performed By: #### L 300.4310, L100.0100, L300.3900 ####[facility] [address] [place], [address] WBC (Bld) [#/Vol] 6.2 10*3/uL Normal 4.4-11.0 [facility] Comment on above: Performed By: #### L 300.4310, L100.0100, L300.3900 ####[facility] [address] [place], [address] Gastroenterology Visit Repor ton 08-11-2024 Gastroenterology Visit Report [facility] [address] [place] [address] OFFICE VISIT Date of Service: 08/11/24 MR#: [id number] Acct: [id number] Name: MATT CALABRESE HELIO Rep #: [id number] : 2000 Provider: ORIN tate Age/Sex: 24/F Location: [facility] [place] Status: Signed Intake Vital Signs 07/16/24 19:45 08/11/24 08:29 Height 5 ft 3 in 5 ft 3 in Weight: 217 lb 4 oz BMI 38.5 BP 102/69 Respiration 16 Pulse 89 Pulse Oximetry (%) 96 Oxygen Delivery Method room air Intake Visit Reasons: Abdominal pain Chief Complaint: follow-up 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 Is patient in pain?: Yes Allergies amoxicillin Allergy (Verified 08/11/24 08:25) Upset Stomach erythromycin base Allergy (Verified 08/11/24 08:25) Upset Stomach Penicillins (PCN) Allergy (Verified 08/11/24 08:25) Upset Stomach azithromycin (From Zithromax) Adverse Reaction (Intermediate, Verified 08/11/24 08:25) Hives metronidazole (From Flagyl) Adverse Reaction (Intermediate, Verified 08/11/24 08:25) Rash sulfamethoxazole (From Bactrim) Adverse Reaction (Intermediate, Verified 08/11/24 08:25) Rash trimethoprim (From Bactrim) Adverse Reaction (Intermediate, Verified 08/11/24 08:25) Rash trazodone Adverse Reaction (Unknown, Verified 08/11/24 08:25) suicidal ideation Medications ???Medication ???Instructions ???Recorded ???Confirmed ???Type ergocalciferol (vitamin D2) 1,250 1,250 mcg PO QWEEK 06/09/2408/11 History mcg (50,000 unit) capsule ferrous sulfate 325 mg (65 mg 325 mg PO QDAY 06/09/24 08/11/24 H istory iron) tablet flax seed oil PO 06/09/24 08/11/24 History hydroxyzine HCl 25 mg tablet 25 mg PO .QID PRN anxiety 06/09/24 08/11/24 History magnesium hydroxide 400 mg (170 mg 400 mg PO QD-BID 06/09/24 History magnesium) chewable tablet naltrexone 50 mg tablet 50 mg PO QDAY 06/09/24 08/11/24 Hi story ondansetron HCl 4 mg tablet 4 mg PO Q8H PRN 06/09/24 08/11/24 History pantoprazole 40 mg tablet,delayed 40 mg PO QDAY 06/09/24 08/11/24 H istory release sumatriptan succinate 25 mg tablet See Rx Instructions PO .COMPLEX 06/09/24 08/11/24 History wheat dextrin 3 gram/4 gram oral 1.5 g PO BID #500 grams 06/09/24 0 08/11/24 Rx powder (Benefiber Sugar Free (dextrin)) hydrocortisone 2.5 % topical cream 1 applic LA QD-BID PRN rectal pa in 07/10/24 08/11/24 Rx with perineal applicator and bleeding #30 grams (Anusol-HC) quetiapine 100 mg tablet (Seroquel) 150 mg PO QHS 07/10/24 08/11/24 History itraconazole 10 mg/mL oral solution 200 mg PO BID 08/11/24 08/11/24 History ondansetron HCl 4 mg tablet 4 mg PO .COMPLEX #5 tabs 08/11/24 08/11/24 Rx peg 3350-electrolytes 236 240 ml PO Q10M #4,000 mL 08/11/24 08/11/24 Rx gram-22.74 gram-6.74 gram-5.86 gram solution (Golytely) prazosin 2 mg capsule 1 mg PO QHS 08/11/24 08/11/24 Hist ory PFSH Medical History Ankle pain, left Right wrist sprain Left knee pain Strain of Achilles tendon Contact with or exposure to other viral diseases URI (upper respiratory infection) Sprain of left foot Left ankle sprain Contusion of left knee Anxiety Surgical History Hx of breast reduction, elective Hx of cholecystectomy Family History Mother Alcohol abuse Breast cancer Hypertension Muscle weakness Substance abuse Father Alcohol abuse Hypertension Grandmother Breast cancer Cancer Sister Hypertension Social History sexually active: No Smoking Status: Never smoker alcohol intake: never substance use type: does not use HPI HPI Chief Complaint: follow-up Details: MATT CALABRESE, is a 24 F who presents to the office today for OV 07/10/2024 24y/o female presents for follow-up with complaints of dysphagia, nausea, diarrhea and rectal bleeding. In terms of dysphagia, her previous work-up including abnormal Esophagram was performed at [facility]. She denies any improvement with ST or pantoprazole 40mg daily. I have provided her a referral to Dr. Dario Davis at [facility]. In terms of diarrhea and rectal bleeding she will schedule colonoscopy. Prior CT was suggestive of liver steatosis. CBC and CMP were unremarkable May 2024. FibroScan was completed 06/17/2024 (F4/S1) Cirrhosis with mild liver fat. IQR is 30%, while at the top end of normal, still raises concern for validity of results. ELF completed 06/26/2024 revealed an intermediate risk 8.84. Her weigh tis 233lbs, BMI 41. She reports bronchoscopy was completed yesterday to evaluate for sarcoid. She will have additional labs completed today and follow- (more content not included)... Normal [facility] Partial Thromboplast Timeon 08-11-2024 aPTT Coag (Bld) [Time] 24.6 s Normal 24.1-36.2 [facility] Comment on above: Performed By: #### L 300.4310, L100.0100, L300.3900 ####[facility] [address] [place], [address] Prothrombin Time w/INRon INR Coag (PPP) [Relative time] 0.9 {INR} Normal [facility] Comment on above: Performed By: #### L 300.4310, L100.0100, L300.3900 ####[facility] [address] [place], [address] PT Coag (PPP) [Time] 12.8 s Normal 11.7-14.9 [facility] Comment on above: Performed By: #### L 300.4310, L100.0100, L300.3900 ####[facility] [address] [place], [address] Abdomen Limitedon 08-08-2024 Abdomen Limited [facility] [address] [place] [address] Abdomen Limited MR#: [id number] Acct: [id number] Name: MATT CALABRESE Rep #: [id number] : 2000 F 24 From: Jaylon Kessler MD PCP: ORIN Beatty Status: REG CLI Study: Abdomen Limited Date of Exam: 08/08/24 Exam# [id number] Ordering Dr: Marquita Chavez MULTIM[employer]IA ASSISTANTLos Infante PROCEDURE: ABDOMEN LIMITED (USABDL), 08/08/2024 REASON FOR EXAM: RUQ PAIN COMPARISON: None FINDINGS: Liver: Unremarkable. 16.3 cm in length. Gallbladder: Surgically absent. Biliary tree: Unremarkable. CBD measures 3 mm. Pancreas: Partially obscured by shadowing bowel gas, grossly unremarkable as visualized. Right kidney: Unremarkable. 10.5 cm in length. Other: No visualized free fluid. US/Abdomen Limited IMPRESSION: 1. Cholecystectomy without biliary dilatation. If unexplained symptoms persist, consider CT. 2. Additional description as above. Reading Location: PDS-GMLCHSQT-TR CC: ORIN Priest; ORIN Chavez Ingot Header: Signed Normal [facility] CBC W Auto Differential pane l (Bld)on 08-06-2024 Basophils (Bld) [#/Vol] 0.03 10*3/uL Normal <0.11 [facility] Comment on above: Order Comment: Speci men Type: BLOOD SPECIMENOrdering Facility: [facility] Address: [address] [place] [address] Performed By: #### 5 7021-8 ####[facility] MILLWNCLIA [id number] [place] [address] [place] Basophils/100 WBC (Bld) 0.4 % Normal [facility] Comment on above: Order Comment: Speci men Type: BLOOD SPECIMENOrdering Facility: [facility] Address: [address] [place] [address] Performed By: #### 5 7021-8 ####[facility] [id number] [place] [address] [place] Differential cell count method Nom (Bld) Auto Normal [facility] Comment on above: Order Comment: Speci men Type: BLOOD SPECIMENOrdering Facility: [facility] Address: [address] [place] [address] Performed By: #### 5 7021-8 ####[facility] MILLTOWNCLIA [id number] [place] [address] [place] Eosinophils (Bld) [#/Vol] 0.07 10*3/uL Normal <0.46 [facility] Comment on above: Order Comment: Speci men Type: BLOOD SPECIMENOrdering Facility: [facility] Address: [address] [place] [address] Performed By: #### 5 7021-8 ####[facility] MILLTOWNCLIA [id number] [place] [address] [place] Eosinophils/100 WBC (Bld) 1.0 % Normal [facility] Comment on above: Order Comment: Speci men Type: BLOOD SPECIMENOrdering Facility: [facility] Address: [address] [place] [address] Performed By: #### 5 7021-8 ####[facility]PITALMARIA ALEJANDRAUINTAH BASIN [facility] [id number] [place] [address] [place] Erythrocyte distribution width (RBC) [Ratio] 13.0 % Normal 11.5-15.0 [facility] Comment on above: Order Comment: Speci men Type: BLOOD SPECIMENOrdering Facility: [facility] Address: [address] [place] [address] Performed By: #### 5 7021-8 ####[facility] H[facility]PITALMARIA ALEJANDRAMoris [id number] [place] [address] [place] Hematocrit (Bld) [Volume fraction] 36.5 % Normal 36.0-46.0 [facility] Comment on above: Order Comment: Speci men Type: BLOOD SPECIMENOrdering Facility: [facility] Address: [address] [place] [address] Performed By: #### 5 7021-8 ####[facility]OSPITALLI [id number] [place] [address] [place] Hemoglobin (Bld) [Mass/Vol] 11.3 g/dL Low 11.5-15.5 [facility] Comment on above: Order Comment: Speci men Type: BLOOD SPECIMENOrdering Facility: [facility] Address: [address] [place] [address] Performed By: #### 5 7021-8 ####[facility] HOS[facility]ITALNCLIA [id number] [place] [address] [place] Immature granulocytes (Bld) [#/Vol] 10*3/uL Normal <0.10 [facility] Comment on above: Order Comment: Speci men Type: BLOOD SPECIMENOrdering Facility: [facility] Address: [address] [place] [address] Performed By: #### 5 7021-8 ####[facility] GEOFFREYAPOLINARA [id number] [place] [address] [place] Immature granulocytes/100 WBC (Bld) 0.3 % Normal [facility] Comment on above: Order Comment: Speci men Type: BLOOD SPECIMENOrdering Facility: [facility] Address: [address] [place] [address] Performed By: #### 5 7021-8 ####[facility] HOSPITALNCUINTAH [facility] [id number] [place] [address] [place] Lymphocytes (Bld) [#/Vol] 2.00 10*3/uL Normal 1.00-4.00 [facility] Comment on above: Order Comment: Speci men Type: BLOOD SPECIMENOrdering Facility: [facility] Address: [address] [place] [address] Performed By: #### 5 7021-8 ####[facility] [id number] [place] [address] [place] Lymphocytes/100 WBC (Bld) 27.7 % Normal [facility] Comment on above: Order Comment: Speci men Type: BLOOD SPECIMENOrdering Facility: [facility] Address: [address] [place] [address] Performed By: #### 5 7021-8 ####[facility] HOSPITALA [id number] [place] [address] [place] MCH (RBC) [Entitic mass] 27.7 pg Normal 26.0-34.0 [facility] Comment on above: Order Comment: Speci men Type: BLOOD SPECIMENOrdering Facility: [facility] Address: [address] [place] [address] Performed By: #### 5 7021-8 ####[facility] INSTITUTEWNCLIA [id number] [place] [address] [place] MCHC (RBC) [Mass/Vol] 31.0 g/dL Normal 30.5-36.0 [facility] Comment on above: Order Comment: Speci men Type: BLOOD SPECIMENOrdering Facility: [facility] Address: [address] [place] [address] Performed By: #### 5 7021-8 ####[facility]ITALNCLIA [id number] [place] [address] [place] MCV (RBC) [Entitic vol] 89.5 fL Normal 80.0-100.0 [facility] Comment on above: Order Comment: Speci men Type: BLOOD SPECIMENOrdering Facility: [facility] Address: [address] [place] [address] Performed By: #### 5 7021-8 ####[facility] HOSPITALNCA [id number] [place] [address] [place] Monocytes (Bld) [#/Vol] 0.62 10*3/uL Normal <0.87 [facility] Comment on above: Order Comment: Speci men Type: BLOOD SPECIMENOrdering Facility: [facility] Address: [address] [place] [address] Performed By: #### 5 7021-8 ####[facility]ITALNCLIA [id number] [address] [place] Monocytes/100 WBC (Bld) 8.6 % Normal [facility] Comment on above: Order Comment: Speci men Type: BLOOD SPECIMENOrdering Facility: [facility] Address: [address] [place], [place] [address] Performed By: #### 5 7021-8 ####[facility] HOSPITALNCLI [id number] [place] [id number] [place] Neutrophils (Bld) [#/Vol] 4.48 10*3/uL Normal 1.45-7.50 [facility] Comment on above: Order Comment: Speci men Type: BLOOD SPECIMENOrdering Facility: [facility] Address: [address] [place] [address] Performed By: #### 5 7021-8 ####[facility]ITALL[facility] [id number] [place] [address] [place] Neutrophils/100 WBC (Bld) 62.0 % Normal [facility] Comment on above: Order Comment: Speci men Type: BLOOD SPECIMENOrdering Facility: [facility] Address: [address] [place] [address] Performed By: #### 5 7021-8 ####[facility]OSPITALNCUINTAH [facility] [id number] [place] [address] [place] Nucleated RBC (Bld) [#/Vol] 10*3/uL Normal <0.01 [facility] Comment on above: Order Comment: Speci men Type: BLOOD SPECIMENOrdering Facility: [facility] Address: [address] [place] [address] Performed By: #### 5 7021-8 ####[facility] [id number] [place] [address] [place] Nucleated RBC/100 WBC (Bld) [Ratio] 0.0 /100 WBC Normal [facility] Comment on above: Order Comment: Speci men Type: BLOOD SPECIMENOrdering Facility: [facility] Address: [address] [place] [address] Performed By: #### 5 7021-8 ####[facility] HOSPITALNCLI [id number] [place] [address] [place] Platelet mean volume (Bld) [Entitic vol] 9.7 fL Normal 9.0-12.7 [facility] Comment on above: Order Comment: Speci men Type: BLOOD SPECIMENOrdering Facility: [facility] Address: [address] [place] [address] Performed By: #### 5 7021-8 ####[facility] MOLLYNCLIA [id number] [place] [address] [place] Platelets (Bld) [#/Vol] 327 10*3/uL Normal 150-400 [facility] Comment on above: Order Comment: Speci men Type: BLOOD SPECIMENOrdering Facility: [facility] Address: [address] [place] [address] Performed By: #### 5 7021-8 ####[facility] GEOFFREYNEVADANCLIA [id number] [place] [address] [place] RBC (Bld) [#/Vol] 4.08 10*6/uL Normal 3.90-5.20 [facility] Comment on above: Order Comment: Speci men Type: BLOOD SPECIMENOrdering Facility: [facility] Address: [address] [place] [address] Performed By: #### 5 7021-8 ####[facility]ITALNCLIA [id number] [place] [address] [place] WBC (Bld) [#/Vol] 7.22 10*3/uL Normal 3.70-11.00 [facility] Comment on above: Order Comment: Speci men Type: BLOOD SPECIMENOrdering Facility: [facility] Address: [address] [place] [address] Performed By: #### 5 7021-8 ####[facility]ITALNCLIA [id number] [place] [address] [place] Comprehensive metabolic 2000 panelon 08-06-2024 Albumin [Mass/Vol] 4.2 g/dL Normal 3.9-4.9 [facility] Comment on above: Order Comment: Speci men Type: BLOOD SPECIMENOrdering Facility: [facility] Address: [address] [place] [address] Performed By: #### 2 4323-8 ####[facility] LORENA MILLTOWNCLIA [id number] [place] [address] [place] ALP [Catalytic activity/Vol] 73 U/L Normal 34-123 [facility] Comment on above: Order Comment: Speci men Type: BLOOD SPECIMENOrdering Facility: [facility] Address: [address] [place] [address] Performed By: #### 2 4323-8 ####[facility] MILLTOWNCLIA [id number] [place] [address] [place] ALT [Catalytic activity/Vol] 41 U/L High 7-38 [facility] Comment on above: Order Comment: Speci men Type: BLOOD SPECIMENOrdering Facility: [facility] Address: [address] [place] [address] Performed By: #### 2 4323-8 ####[facility] [id number] [place] [address] [place] Anion gap [Moles/Vol] 10 mmol/L Normal 8-15 [facility] Comment on above: Order Comment: Speci men Type: BLOOD SPECIMENOrdering Facility: [facility] Address: [address] [place] [address] Performed By: #### 2 4323-8 ####[facility] LORE[facility] MILLTOWNCLIA [id number] [place] [address] [place] AST [Catalytic activity/Vol] 32 U/L Normal 13-35 [facility] Comment on above: Order Comment: Speci men Type: BLOOD SPECIMENOrdering Facility: [facility] Address: [address] [place] [address] Performed By: #### 2 4323-8 ####[facility] L[facility] MILLTOWNCLIA [id number] [place] [address] [place] Bilirubin [Mass/Vol] mg/dL Low 0.2-1.3 [facility] Comment on above: Order Comment: Speci men Type: BLOOD SPECIMENOrdering Facility: [facility] Address: [address] [place] [address] Performed By: #### 2 4323-8 ####[facility] ALEJANDRALIA [id number] [place] [address] [place] Calcium [Mass/Vol] 9.6 mg/dL Normal 8.5-10.2 [facility] Comment on above: Order Comment: Speci men Type: BLOOD SPECIMENOrdering Facility: [facility] Address: [address] [place] [address] Performed By: #### 2 4323-8 ####[facility]ITAL[facility] ALEJANDRALIA [id number] [place] [address] [place] Chloride [Moles/Vol] 103 mmol/L Normal 98-107 [facility] Comment on above: Order Comment: Speci men Type: BLOOD SPECIMENOrdering Facility: [facility] Address: [address] [place] [address] Performed By: #### 2 4323-8 ####[facility] [id number] [place] [address] [place] CO2 [Moles/Vol] 26 mmol/L Normal 22-30 [facility] Comment on above: Order Comment: Speci men Type: BLOOD SPECIMENOrdering Facility: [facility] Address: [address] [place] [address] Performed By: #### 2 4323-8 ####[facility]ITAL[facility]CLIA [id number] [place] [address] [place] Creatinine [Mass/Vol] 0.72 mg/dL Normal 0.58-0.96 [facility] Comment on above: Order Comment: Speci men Type: BLOOD SPECIMENOrdering Facility: [facility] Address: [address] [place] [address] Performed By: #### 2 4323-8 ####[facility] [id number] [place] [address] [place] Creatinine and Glomerular filtration rate.predicted panel (S/P/Bld) 119 mL/min/1.73m??? Normal >=60 [facility] Comment on above: Order Comment: Ronnie alonzo Type: BLOOD SPECIMENOrdering Facility: [facility] Address: [address] [place] [address] Result Comment: Edwige mated Glomerular Filtration Rate (eGFR) is calculated using the 2020 CKD-EPI creatinine equation. This equation utilizes serum creatinine, sex, and age as parameters. The creatinine assay has traceable calibration to isotope dilution-mass spectrometry. Refer to KDIGO guidelines for clinical interpretation. In patients with unstable renal function, e.g. those with acute kidney injury, the eGFR may not accurately reflect actual GFR. Performed By: #### 2 4323-8 ####[facility] [id number] [place] [address] [place] Glucose [Mass/Vol] 107 mg/dL High 74-99 [facility] Comment on above: Order Comment: Ronnie alonzo Type: BLOOD SPECIMENOrdering Facility: [facility] Address: [address] [place] [address] Result Comment: The [place] Diabetes Association (ADA) provides guidance for cutoff values for fasting glucose and random glucose. The ADA defines fasting as no caloric intake for at least 8 hours. Fasting plasma glucose results between 100 to 125 mg/dL indicate increased risk for diabetes (prediabetes).Fasting plasma glucose results greater than or equal to 126 mg/dL meet the criteria for diagnosis of diabetes. In the absence of unequivocal hyperglycemia, results should be confirmed by repeat testing. In a patient with classic symptoms of hyperglycemia or hyperglycemic crisis, random plasma glucose results greater than or equal to 200 mg/dL meet the criteria for diagnosis of diabetes.Reference: Standards of Medical Care in Diabetes 2016, [place] [employer] Association. Diabetes Care. 2016.39(Suppl 1). Performed By: #### 2 4323-8 ####[facility]OWNCL[facility] [id number] [place] [address] [place] Potassium [Moles/Vol] 4.6 mmol/L Normal 3.7-5.1 [facility] Comment on above: Order Comment: Speci men Type: BLOOD SPECIMENOrdering Facility: [facility] Address: [address] [place] [address] Performed By: #### 2 4323-8 ####[facility] MILLWNCL[facility] [id number] [place] [address] [place] Protein [Mass/Vol] 7.7 g/dL Normal 6.3-8.0 [facility] Comment on above: Order Comment: Speci men Type: BLOOD SPECIMENOrdering Facility: [facility] Address: [address] [place] [address] Performed By: #### 2 4323-8 ####[facility]ITAL[facility]CLIA [id number] [place] [address] [place] Sodium [Moles/Vol] 139 mmol/L Normal 136-144 [facility] Comment on above: Order Comment: Speci men Type: BLOOD SPECIMENOrdering Facility: [facility] Address: [address] [place] [address] Performed By: #### 2 4323-8 ####[facility]OWNCL[facility] [id number] [place] [address] [place] Urea nitrogen [Mass/Vol] 11 mg/dL Normal 7-21 [facility] Comment on above: Order Comment: Speci men Type: BLOOD SPECIMENOrdering Facility: [facility] Address: [address] [place] [address] Performed By: #### 2 4323-8 ####[facility] MILLWNCL[facility] [id number] [place] [address] [place] Fungus identified Nom (Isol) Ordered By: Yessica Muñoz on 08-06-2024 Aspergillus sp Ab Immune diff Ql (S) Negative Negative [facility] Comment on above: Aspergillus antibody test by immunodiffusion may be used as an aid in diagnosis of chronic pulmonary aspergillosis including chronic cavitary pulmonary aspergillosis and chronic fibrosing pulmonary aspergillosis. Immunodiffusion test is more specific but less sensitive than complement fixation test. Clinical correlation is required. B. dermatitidis Ab Immune diff Ql (S) Negative Negative [facility] Comment on above: Blastomyces antibody test by Immunodiffusion may be used as an aid in diagnosis of infection with the dimorphic fungus Blastomyces dermatitidis. Blastomyces serology has low overall diagnostic sensitivity especially with localized disease. Immunodiffusion test is more specific but less sensitive than complement fixation test. Clinical and epidemiological correlation is required. Coccidioides sp Ab Immune diff Ql (S) Negative Negative [facility] Comment on above: Coccidioides antibod y test by Immunodiffusion may be used as an aid in diagnosis of infection with the dimorphic fungus Coccidioides spp. Cannot exclude acute infection if the specimen collected 4-6 weeks after onset of signs and symptoms. Immunodiffusion test is more specific but less sensitive than EIA test. Clinical and epidemiological correlation is required. H. capsulatum Ab Immune diff Ql (S) Positive Abnormal Negative [facility] Comment on above: Histoplasma antibody test by Immunodiffusion may be used as an aid in diagnosis of infection with the dimorphic fungus Histoplasma capsulatum. Histoplasma antibody test has low overall diagnostic sensitivity especially with localized disease. Immunodiffusion test is more specific but less sensitive than complement fixation test. Clinical and epidemiological correlation is required. Interpretation and review of laboratory results Abnormal [facility] Reviewed by Krystian Farooq, Ph.D, D(JOAQUIN) [facility] ITRACONAZOLE BLOODon 025 HYDROXYITRACONAZOLE 1.3 ug/mL Normal [facility] Comment on above: Order Comment: Speci men Type: BLOOD SPECIMENOrdering Facility: [facility] Address: [address] [place] [address] Result Comment: Rang es are based on trough draw at steady-state concentration. Test performed by LC-MS/MS. Ranges are based off the Itraconazole trough levels alone, not combined with hydroxyitraconazole.Therapeutic: >1.0 ug/mLProphylaxis: >0.4 ug/mLToxic: >3.0 ug/mL (Toxic values will not be called)The therapeutic, prophylactic, and toxic ranges were based on the 2016 Infectious Disease Society of [place] (IDSA) Clinical Practice Guidelines for the Management of Aspergillosis and Candidiasis and consultation from [facility]'s Department of Infectious Disease.Reference ranges and high/low indicator flags are provided as general guidelines only. The treating physician must determine appropriate target levels/dosing based on the specific clinical situation.This test was developed, and its performance characteristics determined by the [facility] Department of Pathology and Laboratory Medicine. It has not been cleared or approved by the FDA. The [facility] Department of Pathology and Laboratory Medicine is regulated under CLIA as qualified to perform high-complexity testing. This test is used for clinical purposes. It should not be regarded as investigational or for research. Performed By: #### I TRAC ####[facility] LAB[facility] [id number] [place] [address] [place] ITRACONAZOLE BLD 0.7 ug/mL Normal 0.6-2.9 [facility] On [facility] Comment on above: Order Comment: Speci men Type: BLOOD SPECIMENOrdering Facility: [facility] Address: [address] [place] [address] Performed By: #### I TRAC ####[facility] [id number] [place] [address] [place] HISTOPLASMA AG URINEOrdered By: Marquita Spangler on 08-04-2024 H. capsulatum Ag (U) [Mass/Vol] ng/mL NINF - 0.2 ng/mL [facility] H. capsulatum Ag IA Ql (U) Negative Negative [facility] Comment on above: Histoplasma galactom gibran antigen, urine test is used as an aid in diagnosing histoplasmosis. A negative result cannot rule out infection. Low positive results may at times be due to cross-reactivity with Blastomyces, Talaromyces marneffei, Paracoccidioides, and some Maria Elena species. Clinical radiological, and epidemiological correlation is required. Interpretation and review of laboratory results Normal [facility] BLOOD TB SCREENon 08-01-2024 M. tuberculosis tuberculin stim IFN-g Ql (Bld) Negative [facility] Mitogen minus Nil - PINF [facility] TB Gamma Interpretation Infection with M. tuberculosis complex is unlikely. If latent tuberculosis infection is highly suspected, a negative result does not rule out the infection. Specimens from immunocompromised patients and those <5 years of age may show false negative results. In case of a contact investigation, please repeat 8-12 weeks after a known exposure. [facility] TB Nil 0.01 NINF [facility] TB1 Ag minus Nil 0.01 [facility] TB2 Ag minus Nil [address] [facility] IMMUNOGLOBULINS,IGG,IGA,IGMo n 08-01-2024 IgA [Mass/Vol] 219 mg/dL 70 - 400 mg/dL [facility] IgG [Mass/Vol] 1147 mg/dL 700 - 1600 mg/dL [facility] IgM [Mass/Vol] 100 mg/dL 40 - 230 mg/dL [facility] Interpretation and review of laboratory results Normal [facility] ITRACONAZOLE BLOODOrdered By : Jania Pike on 08-01-2024 Hydroxyitraconazole ug/mL ug/mL [facility] Comment on above: Ranges are based on trough draw at steady-state concentration. Test performed by LC-MS/MS. Ranges are based off the Itraconazole trough levels alone, not combined with hydroxyitraconazole. Therapeutic: >1.0 ug/mL Prophylaxis: >0.4 ug/mL Toxic: >3.0 ug/mL (Toxic values will not be called) The therapeutic, prophylactic, and toxic ranges were based on the 2016 Infectious Disease Society of [place] (IDSA) Clinical Practice Guidelines for the Management of Aspergillosis and Candidiasis and consultation from [facility]'s Department of Infectious Disease. Reference ranges and high/low indicator flags are provided as general guidelines only. The treating physician must determine appropriate target levels/dosing based on the specific clinical situation. This test was developed, and its performance characteristics determined by the [facility] Department of Pathology and Laboratory Medicine. It has not been cleared or approved by the FDA. The [facility] Department of Pathology and Laboratory Medicine is regulated under CLIA as qualified to perform high-complexity testing. This test is used for clinical purposes. It should not be regarded as investigational or for research. Interpretation and review of laboratory results Abnormal [facility] Itraconazole ug/mL Low 0.6 - 2.9 ug/mL [facility] HIV 1+2 Ab IA Qlon HIV 1 and 2 Ab IA.rapid Nom (S/P/Bld) [facility] Comment on above: Test not indicated. HIV 1+2 Ab+HIV1 p24 Ag IA Ql Non-Reactive Nonreactive [facility] HIV immunoassay testing algorithm interpretation (S/P/Bld) [Interp] [facility] Comment on above: No evidence of HIV-1 or HIV-2 infection. Should recent infection be suspected, repeat testing may be considered 2-3 weeks after this draw. [place] Rev. Code 3701.243(E): This information has been disclosed to you from confidential records protected from disclosure by state law. You shall make no further disclosure of this information without the specific, written, and informed release of the individual to whom it pertains or as otherwise permitted by state law. A general authorization for the release of medical or other information is not sufficient for the purpose of the release of HIV test results or diagnoses. [facility] IMMUNOGLOBULINS,IGG,IGA,IGMo n 07-31-2024 IgA [Mass/Vol] 219 mg/dL Normal 70-400 [facility] Comment on above: Order Comment: Speci men Type: BLOOD SPECIMENOrdering Facility: [facility] Address: [address] [place] [address] Performed By: #### S ERIMM ####[facility] LABCLIA [id number] [place] [address] [place] IgG [Mass/Vol] 1147 mg/dL Normal 700-1600 [facility] Comment on above: Order Comment: Speci men Type: BLOOD SPECIMENOrdering Facility: [facility] Address: [address] [place] [address] Performed By: #### S ERIMM ####[facility] LABCLIA [id number] [place] [id number] [place] IgM [Mass/Vol] 100 mg/dL Normal 40-230 [facility] Comment on above: Order Comment: Ronnie alonzo Type: BLOOD SPECIMENOrdering Facility: [facility] Address: [address] [place] [address] Performed By: #### S ERIMM ####[facility] LABCLIA [id number] [place] [address] [place] BLOOD TB SCREENon 07-30-2024 M. tuberculosis tuberculin stim IFN-g Ql (Bld) Negative Normal [facility] Comment on above: Order Comment: Speci men Type: BLOOD SPECIMEN [facility] Address: [address] [place] [address] Performed By: #### I NFTBP #### [facility] CLIA [id number] [address] [place] [address] [place] MITOGEN MINUS NIL >9.99 Normal >=0.50 [facility] Comment on above: Order Comment: Speci men Type: BLOOD SPECIMEN [facility] Address: [address] [place] [address] Performed By: #### I NFTBP #### [facility] CLIA [id number] [address] [place] [address] [place] TB GAMMA INTERPRETATION Infection with M. tuberculosis complex is unlikely. If latent tuberculosis infection is highly suspected, a negative result does not rule out the infection. Specimens from immunocompromised patients and those <5 years of age may show false negative results. In case of a contact investigation, please repeat 8-12 weeks after a known exposure. Normal [facility] Comment on above: Order Comment: Ronnie alonzo Type: BLOOD SPECIMEN [facility] Address: [address] [place] [address] Performed By: #### I NFTBP #### [facility] CLIA [id number] [address] [place] [address] [place] TB NIL 0.01 IU/mL Normal <=8.00 [facility] Comment on above: Order Comment: Speci men Type: BLOOD SPECIMEN [facility] Address: [address] [place] [address] Performed By: #### I NFTBP #### [facility] CLIA [id number] [address] [place] [address] TB1 AG MINUS NIL 0.01 IU/mL Normal <0.35 [facility] Comment on above: Order Comment: Speci men Type: BLOOD SPECIMEN [facility] Address: [address] [place] [address] Performed By: #### I NFTBP #### [facility] CLIA [id number] [address] [place] [address] TB2 AG MINUS NIL 0.00 IU/mL Normal <0.35 [facility] Comment on above: Order Comment: Speci men Type: BLOOD SPECIMEN [facility] Address: [address] [place] [address] Performed By: #### I NFTBP #### [facility] CLIA [id number] [address] [place] [address] [place] C-REACTIVE PROTEINon 025 CRP [Mass/Vol] 3.3 mg/dL High NINF - 0.9 mg/dL [facility] CBC W Auto Differential pane l (Bld)on 07-30-2024 Basophils (Bld) [#/Vol] [facility] Basophils/100 WBC (Bld) 0.2 % [facility] Differential cell count method Nom (Bld) Auto [facility] Eosinophils (Bld) [#/Vol] 0.08 10*3/uL [facility] Eosinophils/100 WBC (Bld) 0.9 % [facility] Erythrocyte distribution width (RBC) [Ratio] 12.4 % 11.5 - 15.0 % [facility] Hematocrit (Bld) [Volume fraction] 36.9 % 36.0 - 46.0 % [facility] Hemoglobin (Bld) [Mass/Vol] 11.3 g/dL Low 11.5 - 15.5 g/dL [facility] Immature granulocytes (Bld) [#/Vol] 0.07 10*3/uL [facility] Immature granulocytes/100 WBC (Bld) 0.8 % [facility] Interpretation and review of laboratory results Abnormal [facility] Lymphocytes (Bld) [#/Vol] 1.79 10*3/uL [facility] Lymphocytes/100 WBC (Bld) 20.6 % [facility] MCH (RBC) [Entitic mass] 27.1 pg 26.0 - 34.0 pg [facility] MCHC (RBC) [Mass/Vol] 30.6 g/dL 30.5 - 36.0 g/dL [facility] MCV (RBC) [Entitic vol] 88.5 fL 80.0 - 100.0 fL [facility] Monocytes (Bld) [#/Vol] 0.5 10*3/uL [facility] Monocytes/100 WBC (Bld) 5.7 % [facility] Neutrophils (Bld) [#/Vol] 6.24 10*3/uL [facility] Neutrophils/100 WBC (Bld) 71.8 % [facility] Nucleated RBC (Bld) [#/Vol] [facility] Nucleated RBC/100 WBC (Bld) [Ratio] 0 % /100 WBC [facility] Platelet mean volume (Bld) [Entitic vol] 9.6 fL 9.0 - 12.7 fL [facility] Platelets (Bld) [#/Vol] 450 10*3/uL High [facility] RBC (Bld) [#/Vol] 4.17 10*6/uL 3.90 - 5.2 0 m/uL [facility] WBC (Bld) [#/Vol] 8.7 10*3/uL [facility] Basophils (Bld) [#/Vol] 10*3/uL Normal <0.11 [facility] Comment on above: Order Comment: Speci men Type: BLOOD SPECIMEN [facility] Address: [address] [place] [address] Performed By: #### 5 7021-8 #### [facility] CLIA [id number] [address] [place] [address] [place] Basophils/100 WBC (Bld) 0.2 % Normal [facility] Comment on above: Order Comment: Speci men Type: BLOOD SPECIMEN [facility] Address: [address] [place] [address] Performed By: #### 5 7021-8 #### [facility] CLIA [id number] [address] [place] [address] [place] Differential cell count method Nom (Bld) Auto Normal [facility] Comment on above: Order Comment: Speci men Type: BLOOD SPECIMEN [facility] Address: [address] [place] [address] Performed By: #### 5 7021-8 #### [facility] CLIA [id number] [address] [place] [address] [place] Eosinophils (Bld) [#/Vol] 0.08 10*3/uL Normal <0.46 [facility] Comment on above: Order Comment: Speci men Type: BLOOD SPECIMEN [facility] Address: [address] [place] [address] Performed By: #### 5 7021-8 #### [facility] CLIA [id number] [address] [place] [address] [place] Eosinophils/100 WBC (Bld) 0.9 % Normal [facility] Comment on above: Order Comment: Speci men Type: BLOOD SPECIMEN [facility] Address: [address] [place] [address] Performed By: #### 5 7021-8 #### [facility] CLIA [id number] [address] [place] [address] [place] Erythrocyte distribution width (RBC) [Ratio] 12.4 % Normal 11.5-15.0 [facility] Comment on above: Order Comment: Speci men Type: BLOOD SPECIMEN [facility] Address: [address] [place] [address] Performed By: #### 5 7021-8 #### [facility] CLIA [id number] [address] [place] [address] [place] Hematocrit (Bld) [Volume fraction] 36.9 % Normal 36.0-46.0 [facility] Comment on above: Order Comment: Speci men Type: BLOOD SPECIMEN [facility] Address: [address] [place] [address] Performed By: #### 5 7021-8 #### [facility] CLIA [id number] [address] [place] [address] [place] Hemoglobin (Bld) [Mass/Vol] 11.3 g/dL Low 11.5-15.5 [facility] Comment on above: Order Comment: Speci men Type: BLOOD SPECIMEN [facility] Address: [address] [place] [address] Performed By: #### 5 7021-8 #### [facility] CLIA [id number] [address] [place] [address] [place] Immature granulocytes (Bld) [#/Vol] 0.07 10*3/uL Normal <0.10 [facility] Comment on above: Order Comment: Speci men Type: BLOOD SPECIMEN [facility] Address: [address] [place] [address] Performed By: #### 5 7021-8 #### [facility] CLIA [id number] [address] [place] [address] [place] Immature granulocytes/100 WBC (Bld) 0.8 % Normal [facility] Comment on above: Order Comment: Speci men Type: BLOOD SPECIMEN [facility] Address: [address] [place] [address] Performed By: #### 5 7021-8 #### [facility] [facility] CLIA [id number] [address] [place] [address] [place] Lymphocytes (Bld) [#/Vol] 1.79 10*3/uL Normal 1.00-4.00 [facility] Comment on above: Order Comment: Speci men Type: BLOOD SPECIMEN Ordering Facility: [facility] Address: [address] [place] [address] Performed By: #### 5 7021-8 #### [facility] CLIA [id number] [address] [place] [address] [place] Lymphocytes/100 WBC (Bld) 20.6 % Normal [facility] Comment on above: Order Comment: Speci men Type: BLOOD SPECIMEN Ordering Facility: [facility] Address: [address] [place] [address] Performed By: #### 5 7021-8 #### [facility] CLIA [id number] [address] [place] [address] [place] MCH (RBC) [Entitic mass] 27.1 pg Normal 26.0-34.0 [facility] Comment on above: Order Comment: Speci men Type: BLOOD SPECIMEN Ordering Facility: [facility] Address: [address] [place] [address] Performed By: #### 5 7021-8 #### [facility] CLIA [id number] [address] [place] [address] [place] MCHC (RBC) [Mass/Vol] 30.6 g/dL Normal 30.5-36.0 [facility] Comment on above: Order Comment: Speci men Type: BLOOD SPECIMEN Ordering Facility: [facility] Address: [address] [place] [address] Performed By: #### 5 7021-8 #### [facility] CLIA [id number] [address] [place] [address] [place] MCV (RBC) [Entitic vol] 88.5 fL Normal 80.0-100.0 [facility] Comment on above: Order Comment: Speci men Type: BLOOD SPECIMEN Ordering Facility: [facility] Address: [address] [place] [address] Performed By: #### 5 7021-8 #### [facility] CLIA [id number] [address] [place] [address] [place] Monocytes (Bld) [#/Vol] 0.50 10*3/uL Normal <0.87 [facility] Comment on above: Order Comment: Speci men Type: BLOOD SPECIMEN Ordering Facility: [facility] Address: [address] [place] [address] Performed By: #### 5 7021-8 #### [facility] CLIA [id number] [address] [place] [address] [place] Monocytes/100 WBC (Bld) 5.7 % Normal [facility] Comment on above: Order Comment: Speci men Type: BLOOD SPECIMEN Ordering Facility: [facility] Address: [address] [place] [address] Performed By: #### 5 7021-8 #### [facility] CLIA [id number] [address] [place] [address] [place] Neutrophils (Bld) [#/Vol] 6.24 10*3/uL Normal 1.45-7.50 [facility] Comment on above: Order Comment: Speci men Type: BLOOD SPECIMEN Ordering Facility: [facility] Address: [address] [place] [address] Performed By: #### 5 7021-8 #### [facility] CLIA [id number] [address] [place] [address] [place] Neutrophils/100 WBC (Bld) 71.8 % Normal [facility] Comment on above: Order Comment: Speci men Type: BLOOD SPECIMEN Ordering Facility: [facility] Address: [address] [place] [address] Performed By: #### 5 7021-8 #### [facility] CLIA [id number] [address] [place] [address] [place] Nucleated RBC (Bld) [#/Vol] 10*3/uL Normal <0.01 [facility] Comment on above: Order Comment: Speci men Type: BLOOD SPECIMEN Ordering Facility: [facility] Address: [address] [place] [address] Performed By: #### 5 7021-8 #### [facility] CLIA [id number] [address] [place] [address] [place] Nucleated RBC/100 WBC (Bld) [Ratio] 0.0 /100 WBC Normal [facility] Comment on above: Order Comment: Speci men Type: BLOOD SPECIMEN Ordering Facility: [facility] Address: [address] [place] [address] Performed By: #### 5 7021-8 #### [facility] CLIA [id number] [address] [place] [address] [place] Platelet mean volume (Bld) [Entitic vol] 9.6 fL Normal 9.0-12.7 [facility] Comment on above: Order Comment: Speci men Type: BLOOD SPECIMEN Ordering Facility: [facility] Address: [address] [place] [address] Performed By: #### 5 7021-8 #### [facility] CLIA [id number] [address] [place] [address] [place] Platelets (Bld) [#/Vol] 450 10*3/uL High 150-400 [facility] Comment on above: Order Comment: Speci men Type: BLOOD SPECIMEN Ordering Facility: [facility] Address: [address] [place] [address] Performed By: #### 5 7021-8 #### [facility] CLIA [id number] [address] [place] [address] [place] RBC (Bld) [#/Vol] 4.17 10*6/uL Normal 3.90-5.20 [facility] Comment on above: Order Comment: Speci men Type: BLOOD SPECIMEN Ordering Facility: [facility] Address: [address] [place] [address] Performed By: #### 5 7021-8 #### [facility] CLIA [id number] [address] [place] [address] [place] WBC (Bld) [#/Vol] 8.70 10*3/uL Normal 3.70-11.00 [facility] Comment on above: Order Comment: Speci men Type: BLOOD SPECIMEN Ordering Facility: [facility] Address: [address] [place] [address] Performed By: #### 5 7021-8 #### [facility] CLIA [id number] [address] [place] [id number] [place] CNOVon 07-30-2024 CNOV Normal [facility] CRP SerPl-mCncon 07-30-2024 CRP [Mass/Vol] 3.3 mg/dL High <0.9 [facility] Comment on above: Order Comment: Speci men Type: BLOOD SPECIMEN Ordering Facility: [facility] Address: [address] [place] [address] Performed By: #### 1 988-5, 45223-9 #### [facility] CLIA [id number] [address] [place] [address] [place] Comprehensive metabolic 2000 panelon 07-30-2024 Albumin [Mass/Vol] 4 g/dL 3.9 - 4.9 g/dL [facility] ALP [Catalytic activity/Vol] 73 U/L 34 - 123 U/L [facility] ALT [Catalytic activity/Vol] 23 U/L 7 - 38 U/L [facility] Anion gap [Moles/Vol] 12 mmol/L 8 - 15 mmol/L [facility] AST [Catalytic activity/Vol] 25 U/L 13 - 35 U/L [facility] Bilirubin [Mass/Vol] mg/dL Low 0.2 - 1 .3 mg/dL [facility] Calcium [Mass/Vol] 9.8 mg/dL 8.5 - 10. 2 mg/dL [facility] Chloride [Moles/Vol] 103 mmol/L 98 - 10 7 mmol/L [facility] CO2 [Moles/Vol] 27 mmol/L 22 - 30 mmol/L [facility] Creatinine [Mass/Vol] 0.78 mg/dL 0.58 - 0.96 mg/dL [facility] GFR/1.73 sq M.predicted among non-blacks MDRD (S/P/Bld) [Vol rate/Area] 108 mL/min/{1.73_m2} - PINF [facility] Comment on above: Estimated Glomerular Filtration Rate (eGFR) is calculated using the 2020 CKD-EPI creatinine equation. This equation utilizes serum creatinine, sex, and age as parameters. The creatinine assay has traceable calibration to isotope dilution-mass spectrometry. Refer to KDIGO guidelines for clinical interpretation. In patients with unstable renal function, e.g. those with acute kidney injury, the eGFR may not accurately reflect actual GFR. Glucose [Mass/Vol] 107 mg/dL High 74 - 99 mg/dL [facility] Comment on above: The [place] Diabete s Association (ADA) provides guidance for cutoff values for fasting glucose and random glucose. The ADA defines fasting as no caloric intake for at least 8 hours. Fasting plasma glucose results between 100 to 125 mg/dL indicate increased risk for diabetes (prediabetes). Fasting plasma glucose results greater than or equal to 126 mg/dL meet the criteria for diagnosis of diabetes. In the absence of unequivocal hyperglycemia, results should be confirmed by repeat testing. In a patient with classic symptoms of hyperglycemia or hyperglycemic crisis, random plasma glucose results greater than or equal to 200 mg/dL meet the criteria for diagnosis of diabetes. Reference: Standards of Medical Care in Diabetes 2016, [place] [employer] Association. Diabetes Care. 2016.39(Suppl 1). Potassium [Moles/Vol] 4.6 mmol/L 3.7 - 5.1 mmol/L [facility] Protein [Mass/Vol] 7.8 g/dL 6.3 - 8.0 g/dL [facility] Sodium [Moles/Vol] 142 mmol/L 136 - 144 mmol/L [facility] Urea nitrogen [Mass/Vol] 20 mg/dL 7 - 21 mg/dL [facility] Albumin [Mass/Vol] 4.0 g/dL Normal 3.9-4.9 [facility] Comment on above: Order Comment: Ronnie alonzo Type: BLOOD SPECIMEN Ordering Facility: [facility] Address: [address] [place] [address] Performed By: #### 1 988-5, 35754-8 #### [facility] CLIA [id number] [address] [place] [address] [place] ALP [Catalytic activity/Vol] 73 U/L Normal 34-123 [facility] Comment on above: Order Comment: Ronnie alonzo Type: BLOOD SPECIMEN Ordering Facility: [facility] Address: [address] [place] [address] Performed By: #### 1 988-5, 07134276-4 #### [facility] CLIA [id number] [address] [place] [address] [place] ALT [Catalytic activity/Vol] 23 U/L Normal 7-38 [facility] Comment on above: Order Comment: Speci men Type: BLOOD SPECIMEN Ordering Facility: [facility] Address: [address] [place] [address] Performed By: #### 1 988-5, 90936-4 #### [facility] CLIA [id number] [address] [place] [address] [place] Anion gap [Moles/Vol] 12 mmol/L Normal 8-15 [facility] Comment on above: Order Comment: Speci men Type: BLOOD SPECIMEN Ordering Facility: [facility] Address: [address] [place] [address] Performed By: #### 1 988-5, #### [facility] CLIA [id number] [address] [place] [address] [place] AST [Catalytic activity/Vol] 25 U/L Normal 13-35 [facility] Comment on above: Order Comment: Speci men Type: BLOOD SPECIMEN Ordering Facility: [facility] Address: [address] [place] [address] Performed By: #### 1 988-5, #### [facility] CLIA [id number] [address] [place] [address] [place] Bilirubin [Mass/Vol] mg/dL Low 0.2-1.3 [facility] Comment on above: Order Comment: Speci men Type: BLOOD SPECIMEN Ordering Facility: [facility] Address: [address] [place] [address] Performed By: #### 1 988-5, #### [facility] CLIA [id number] [address] [place] [address] [place] Calcium [Mass/Vol] 9.8 mg/dL Normal 8.5-10.2 [facility] Comment on above: Order Comment: Speci men Type: BLOOD SPECIMEN Ordering Facility: [facility] Address: [address] [facility] [facility] [address] Performed By: #### 1 988-5, 08165-5 #### [facility] CLIA [id number] [address] [place] [address] [place] Chloride [Moles/Vol] 103 mmol/L Normal 98-107 [facility] Comment on above: Order Comment: Ronnie alonzo Type: BLOOD SPECIMEN Ordering Facility: [facility] Address: [address] [place] [address] Performed By: #### 1 988-5, 22864-6 #### [facility] CLIA [id number] [address] [place] [address] [place] CO2 [Moles/Vol] 27 mmol/L Normal 22-30 [facility] Comment on above: Order Comment: Colettei men Type: BLOOD SPECIMEN Ordering Facility: [facility] Address: [address] [place] [address] Performed By: #### 1 988-5, 07105-0 #### [facility] CLIA [id number] [address] [place] [address] [place] Creatinine [Mass/Vol] 0.78 mg/dL Normal 0.58-0.96 [facility] Comment on above: Order Comment: Speci men Type: BLOOD SPECIMEN Ordering Facility: [facility] Address: [address] [place] [address] Performed By: #### 1 988-5, 45275-8 #### [facility] CLIA [id number] [address] [place] [address] [place] Creatinine and Glomerular filtration rate.predicted panel (S/P/Bld) 108 mL/min/1.73m??? Normal >=60 [facility] Comment on above: Order Comment: Speci men Type: BLOOD SPECIMEN Ordering Facility: [facility] Address: [address] [place] [address] Result Comment: Edwige mated Glomerular Filtration Rate (eGFR) is calculated using the 2020 CKD-EPI creatinine equation. This equation utilizes serum creatinine, sex, and age as parameters. The creatinine assay has traceable calibration to isotope dilution-mass spectrometry. Refer to KDIGO guidelines for clinical interpretation. In patients with unstable renal function, e.g. those with acute kidney injury, the eGFR may not accurately reflect actual GFR. Performed By: #### 1 988-5, 47672-5 #### [facility] CLIA [id number] [address] [place] [address] [place] Glucose [Mass/Vol] 107 mg/dL High 74-99 [facility] Comment on above: Order Comment: Ronnie alonzo Type: BLOOD SPECIMEN Ordering Facility: [facility] Address: [address] [place] [address] Result Comment: The [place] Diabetes Association (ADA) provides guidance for cutoff values for fasting glucose and random glucose. The ADA defines fasting as no caloric intake for at least 8 hours. Fasting plasma glucose results between 100 to 125 mg/dL indicate increased risk for diabetes (prediabetes). Fasting plasma glucose results greater than or equal to 126 mg/dL meet the criteria for diagnosis of diabetes. In the absence of unequivocal hyperglycemia, results should be confirmed by repeat testing. In a patient with classic symptoms of hyperglycemia or hyperglycemic crisis, random plasma glucose results greater than or equal to 200 mg/dL meet the criteria for diagnosis of diabetes. Reference: Standards of Medical Care in Diabetes 2016, [place] Diabetes Association. Diabetes Care. 2016.39(Suppl 1). Performed By: #### 1 988-5, 63551-7 #### [facility] [place] [id number] [address] [place] [address] [place] Potassium [Moles/Vol] 4.6 mmol/L Normal 3.7-5.1 [facility] Comment on above: Order Comment: Ronnie alonzo Type: BLOOD SPECIMEN Ordering Facility: [facility] Address: [address] [place] [address] Performed By: #### 1 988-5, 88562-1 #### [facility] CLIA [id number] [address] [place] [address] [place] Protein [Mass/Vol] 7.8 g/dL Normal 6.3-8.0 [facility] [place] Comment on above: Order Comment: Ronnie alonzo Type: BLOOD SPECIMEN Ordering Facility: [facility] Address: [address] [place] [address] Performed By: #### 1 988-5, 97267-4 #### [facility] CLIA [id number] [address] [place] [address] [place] Sodium [Moles/Vol] 142 mmol/L Normal 136-144 [facility] Comment on above: Order Comment: Ronnie alonzo Type: BLOOD SPECIMEN Ordering Facility: [facility] Address: [address] [place] [address] Performed By: #### 1 988-5, 46253-7 #### [facility] CLIA [id number] [address] [place] [address] [place] Urea nitrogen [Mass/Vol] 20 mg/dL Normal 7-21 [facility] Comment on above: Order Comment: Ronnie alonzo Type: BLOOD SPECIMEN Ordering Facility: [facility] Address: [address] [place] [address] Performed By: #### 1 988-5, 69804-5 #### [facility] CLIA [id number] [address] [place] [address] [place] ESR Westergren method (Bld) [Velocity]on 07-30-2024 ESR (Bld) [Velocity] 70 mm/h High [facility] Interpretation and review of laboratory results Abnormal [facility] ESR (Bld) [Velocity] 70 mm/h High 0-20 [facility] Comment on above: Order Comment: Ronnie alonzo Type: BLOOD SPECIMEN Ordering Facility: [facility] Address: [address] [place] [address] Performed By: #### 4 537-7 #### [facility] CLIA [id number] [address] [place] [address] [place] [address] [place] Fungus identified Nom (Isol) on 07-30-2024 Aspergillus sp Ab Immune diff Ql (S) Negative Normal Negative [facility] Comment on above: Order Comment: Ronnie alonzo Type: BLOOD SPECIMEN Ordering Facility: [facility] Address: [address] [place] [address] Result Comment: Aspe rgillus antibody test by immunodiffusion may be used as an aid in diagnosis of chronic pulmonary aspergillosis including chronic cavitary pulmonary aspergillosis and chronic fibrosing pulmonary aspergillosis. Immunodiffusion test is more specific but less sensitive than complement fixation test. Clinical correlation is required. Performed By: #### 4 2804-5 #### [facility] CLIA [id number] [address] [place] [address] [place] B. dermatitidis Ab Immune diff Ql (S) Negative Normal Negative [facility] Comment on above: Order Comment: Speci men Type: BLOOD SPECIMEN Ordering Facility: [facility] Address: [address] [place] [address] Result Comment: Ever tomyces antibody test by Immunodiffusion may be used as an aid in diagnosis of infection with the dimorphic fungus Blastomyces dermatitidis. Blastomyces serology has low overall diagnostic sensitivity especially with localized disease. Immunodiffusion test is more specific but less sensitive than complement fixation test. Clinical and epidemiological correlation is required. Performed By: #### 4 2804-5 #### [facility] CLIA [id number] [address] [place] [address] [place] Coccidioides sp Ab Immune diff Ql (S) Negative Normal Negative [facility] Comment on above: Order Comment: Speci men Type: BLOOD SPECIMEN Ordering Facility: [facility] Address: [address] [place] [address] Result Comment: Cocc idioides antibody test by Immunodiffusion may be used as an aid in diagnosis of infection with the dimorphic fungus Coccidioides spp. Cannot exclude acute infection if the specimen collected 4-6 weeks after onset of signs and symptoms. Immunodiffusion test is more specific but less sensitive than EIA test. Clinical and epidemiological correlation is required. Performed By: #### 4 2804-5 #### [facility] CLIA [id number] [address] [place] [address] [place] H. capsulatum Ab Immune diff Ql (S) Positive Abnormal Negative [facility] Comment on above: Order Comment: Speci men Type: BLOOD SPECIMEN Ordering Facility: [facility] Address: [address] [place] [address] Result Comment: Hist oplasma antibody test by Immunodiffusion may be used as an aid in diagnosis of infection with the dimorphic fungus Histoplasma capsulatum. Histoplasma antibody test has low overall diagnostic sensitivity especially with localized disease. Immunodiffusion test is more specific but less sensitive than complement fixation test. Clinical and epidemiological correlation is required. Performed By: #### 4 2804-5 #### [facility] CLIA [id number] [address] [place] [address] [place] HISTOPLASMA AG URINEon 07-30 H. capsulatum Ag (U) [Mass/Vol] <0.2 Normal <0.2 [facility] Comment on above: Order Comment: Speci men Type: URINE SPECIMEN Ordering Facility: [facility] Address: [address] [place] [address] Performed By: #### U HISTO #### [facility] CLIA [id number] [address] [place] [address] [place] H. capsulatum Ag IA Ql (U) Negative Normal Negative [facility] Comment on above: Order Comment: Speci men Type: URINE SPECIMEN Ordering Facility: [facility] Address: [address] [place] [address] Result Comment: Hist oplasma galactomannan antigen, urine test is used as an aid in diagnosing histoplasmosis. A negative result cannot rule out infection. Low positive results may at times be due to cross-reactivity with Blastomyces, Talaromyces marneffei, Paracoccidioides, and some Maria Elena species. Clinical radiological, and epidemiological correlation is required. Performed By: #### U HISTO #### [facility] CLIA [id number] [address] [place] [address] [place] HIV 1+2 Ab IA Qlon HIV 1 and 2 Ab IA.rapid Nom (S/P/Bld) Normal [facility] Comment on above: Order Comment: Speci men Type: BLOOD SPECIMEN Ordering Facility: [facility] Address: [address] [place] [address] Result Comment: Test not indicated. Performed By: #### 3 1201-7 #### [facility] CLIA [id number] [address] [place] [address] [place] HIV 1+2 Ab+HIV1 p24 Ag IA Ql Non-Reactive Normal Nonreactive [facility] Comment on above: Order Comment: Speci men Type: BLOOD SPECIMEN Ordering Facility: [facility] Address: [address] [place] [address] Performed By: #### 3 1201-7 #### [facility] CLIA [id number] [address] [place] [address] [place] HIV immunoassay testing algorithm interpretation (S/P/Bld) [Interp] Normal [facility] Comment on above: Order Comment: Speci men Type: BLOOD SPECIMEN Ordering Facility: [facility] Address: [address] [place] [address] Result Comment: No e vidence of HIV-1 or HIV-2 infection. Should recent infection be suspected, repeat testing may be considered 2-3 weeks after this draw. [place] Rev. Code 3701.243(E): This information has been disclosed to you from confidential records protected from disclosure by state law. ???You shall make no further disclosure of this information without the specific, written, and informed release of the individual to whom it pertains or as otherwise permitted by state law. A general authorization for the release of medical or other information is not sufficient for the purpose of the release of HIV test results or diagnoses. Performed By: #### 3 1201-7 #### [facility] CLIA [id number] [address] [place] [address] [place] HbA1c (Bld)on 07-30-2024 Average glucose Estimated from glycated hemoglobin (Bld) [Mass/Vol] 123 mg/dL [facility] Comment on above: eAG: (Estimated aver age glucose) is a calculated value from HgbA1c and is scheduling representative of the average blood glucose level in the last 2-3 month period. HbA1c (Bld) [Mass fraction] 5.9 % High 4.3 - 5.6 % [facility] Comment on above: [place] Diabetes As sociation guidelines indicate that patients with HgbA1c in the range 5.7-6.4% are at increased risk for development of diabetes, and intervention by lifestyle modification may be beneficial. HgbA1c greater or equal to 6.5% is considered diagnostic of diabetes. Interpretation and review of laboratory results Abnormal [facility] Average glucose Estimated from glycated hemoglobin (Bld) [Mass/Vol] 123 mg/dL Normal [facility] Comment on above: Order Comment: Ronnie alonzo Type: BLOOD SPECIMEN Ordering Facility: [facility] Address: [address] [place] [address] Result Comment: eAG: (Estimated average glucose) is a calculated value from HgbA1c and is scheduling representative of the average blood glucose level in the last 2-3 month period. Performed By: #### 5 5454-3 #### [facility] CLIA [id number] [address] [place] [address] [place] HbA1c (Bld) [Mass fraction] 5.9 % High 4.3-5.6 [facility] Comment on above: Order Comment: Ronnie alonzo Type: BLOOD SPECIMEN Ordering Facility: [facility] Address: [address] [place] [address] Result Comment: [place] Diabetes Association guidelines indicate that patients with HgbA1c in the range 5.7-6.4% are at increased risk for development of diabetes, and intervention by lifestyle modification may be beneficial. HgbA1c greater or equal to 6.5% is considered diagnostic of diabetes. Performed By: #### 5 5454-3 #### [facility] CLIA [id number] [address] [place] [address] [place] ITRACONAZOLE BLOODon 07-30-2 025 HYDROXYITRACONAZOLE <0.2 Normal [facility] Comment on above: Order Comment: Ronnie alonzo Type: BLOOD SPECIMEN Ordering Facility: [facility] Address: [address] [place] [address] Result Comment: Rang es are based on trough draw at steady-state concentration. Test performed by LC-MS/MS. Ranges are based off the Itraconazole trough levels alone, not combined with hydroxyitraconazole. Therapeutic: >1.0 ug/mL Prophylaxis: >0.4 ug/mL Toxic: >3.0 ug/mL (Toxic values will not be called) The therapeutic, prophylactic, and toxic ranges were based on the 2016 Infectious Disease Society of [place]'s (IDSA) Clinical Practice Guidelines for the Management of Aspergillosis and Candidiasis and consultation from [facility]'s Department of Infectious Disease. Reference ranges and high/low indicator flags are provided as general guidelines only. The treating physician must determine appropriate target levels/dosing based on the specific clinical situation. This test was developed, and its performance characteristics determined by the [facility] Department of Pathology and Laboratory Medicine. It has not been cleared or approved by the FDA. The [facility] Department of Pathology and Laboratory Medicine is regulated under CLIA as qualified to perform high-complexity testing. This test is used for clinical purposes. It should not be regarded as investigational or for research. Performed By: #### I TRAC #### [facility] CLIA [id number] [address] [place] [address] [place] ITRACONAZOLE BLD <0.2 Low 0.6-2.9 [facility] Comment on above: Order Comment: Speci men Type: BLOOD SPECIMEN Ordering Facility: [facility] Address: [address] [place] [address] Performed By: #### I TRAC #### [facility] CLIA [id number] [address] [place] [address] [place] No Panel Informationon 07-30 Interpretation and review of laboratory results Abnormal [facility] CNPNon 07-28-2024 CNPN Normal [facility] .GFRon 07-26-2024 Estimated Glomerular Filtration Rate 103 ml/min/1.73sqm Normal [facility] Comment on above: Result Comment: Stages of Chronic Kidney Disease (CKD) Stage Description eGFR(ml/min/1.73 sq.m.) CKD 1 Normal kidney function or >=90 normal kindney function with possible kidney damage (ex. Proteinuria) CKD 2 Kidney damage with mild loss 60-89 of kidney function CKD 3a Mild to moderate loss of kidney 45-59 function CKD 3b Moderate to severe loss of 30-44 of kindey function CKD 4 Severe loss of kidney function 15-29 CKD 5 Kidney failure <15 Note: (go live 2024) the eGFR calculation was updated to the 2020 CKD-EPI creatinine equation without a race factor to calculate the eGFR results. Performed By: #### A SAMUEL, FES, CBC, A1C, FERR, ADIFF #### [address] [address] #### B12, FOL, INSLN #### [address] [address] BMPon 07-26-2024 BUN/Creatinine Ratio 15 ratio Normal 7-27 [facility] Comment on above: Performed By: #### A SAMUEL, FES, CBC, A1C, FERR, ADIFF #### [place] [address] #### B12, FOL, INSLN #### [address] [address] Calcium [Mass/Vol] 9.1 mg/dL Normal 8.4-10.2 [facility] Comment on above: Performed By: #### A SAMUEL, FES, CBC, A1C, FERR, ADIFF #### [place] [address] #### B12, FOL, INSLN #### [address] [address] Chloride [Moles/Vol] 106 mmol/L Normal 98-107 [facility] Comment on above: Performed By: #### A SAMUEL, FES, CBC, A1C, FERR, ADIFF #### [place] [address] #### B12, FOL, INSLN #### [address] [address] CO2 [Moles/Vol] 30 mmol/L High 22-29 [facility] Comment on above: Performed By: #### A SAMUEL, FES, CBC, A1C, FERR, ADIFF #### [place] [address] #### B12, FOL, INSLN #### [address] [address] Creatinine [Mass/Vol] 0.81 mg/dL Normal 0.55-1.02 [facility] Comment on above: Result Comment: Test ing performed on Siemens Dimension EXL analyzer using a modified kinetic Stephanie technique. Performed By: #### A SAMUEL, FES, CBC, A1C, FERR, ADIFF #### [place] [address] #### B12, FOL, INSLN #### [place] [address] Electrolyte Balance 6.0 mEq/L Normal 4.0-15.0 [facility] Comment on above: Performed By: #### A SAMUEL, FES, CBC, A1C, FERR, ADIFF #### [place] [address] #### B12, FOL, INSLN #### [place] [address] Glucose [Mass/Vol] 102 mg/dL Normal 70-105 [facility] Comment on above: Performed By: #### A SAMUEL, FES, CBC, A1C, FERR, ADIFF #### [place] [address] #### B12, FOL, INSLN #### [place] [address] Potassium [Moles/Vol] 3.8 mmol/L Normal 3.5-5.1 [facility] Comment on above: Performed By: #### A SAMUEL, FES, CBC, A1C, FERR, ADIFF #### [place] [address] #### B12, FOL, INSLN #### [place] [address] Sodium [Moles/Vol] 142 mmol/L Normal 136-145 [facility] Comment on above: Performed By: #### A SAMUEL, FES, CBC, A1C, FERR, ADIFF #### [place] [address] #### B12, FOL, INSLN #### [address] [address] Urea nitrogen [Mass/Vol] 12 mg/dL Normal 7-18 [facility] Comment on above: Performed By: #### A SAMUEL, FES, CBC, A1C, FERR, ADIFF #### [address] [address] #### B12, FOL, INSLN #### [address] [address] HFPon 07-26-2024 Bili Indirect Unable to Calculate Normal [facility] Comment on above: Result Comment: Unab le to calculate this test result accurately. Results used to calculate this test are outside the reportable range. Performed By: #### A SAMUEL, FES, CBC, A1C, FERR, ADIFF #### [place] [address] #### B12, FOL, INSLN #### [place] [address] Albumin Level 2.5 G/dL Low 3.5-5.0 [facility] Comment on above: Performed By: #### A SAMUEL, FES, CBC, A1C, FERR, ADIFF #### [place] [address] #### B12, FOL, INSLN #### [place] [address] Albumin/Globulin [Mass ratio] 0.6 {ratio} Low 1.1-2.5 [facility] Comment on above: Performed By: #### A SAMUEL, FES, CBC, A1C, FERR, ADIFF #### [place] [address] #### B12, FOL, INSLN #### [place] [address] ALP [Catalytic activity/Vol] 64 U/L Normal 40-135 [facility] Comment on above: Performed By: #### A SAMUEL, FES, CBC, A1C, FERR, ADIFF #### [place] [address] #### B12, FOL, INSLN #### [place] [address] ALT [Catalytic activity/Vol] 17 U/L Normal 14-59 [facility] Comment on above: Performed By: #### A SAMUEL, FES, CBC, A1C, FERR, ADIFF #### [place] [address] #### B12, FOL, INSLN #### [place] [address] AST [Catalytic activity/Vol] 14 U/L Normal 10-40 [facility] Comment on above: Performed By: #### A SAMUEL, FES, CBC, A1C, FERR, ADIFF #### [place] [address] #### B12, FOL, INSLN #### [place] [address] Bili Direct <0.1 Normal 0.0-0.2 [facility] Comment on above: Result Comment: Use of this assay is not recommended for patients undergoing treatment with eltrombopag due to the potential for falsely elevated results. Performed By: #### A SAMUEL, FES, CBC, A1C, FERR, ADIFF #### [place] [address] #### B12, FOL, INSLN #### [place] [address] Bili Total 0.2 mg/dL Normal 0.2-1.0 [facility] Comment on above: Result Comment: Use of this assay is not recommended for patients undergoing treatment with eltrombopag due to the potential for falsely elevated results. Performed By: #### A SAMUEL, FES, CBC, A1C, FERR, ADIFF #### [place] [address] #### B12, FOL, INSLN #### [place] [address] Globulin 4.3 G/dL High 1.5-3.8 [facility] Comment on above: Performed By: #### A SAMUEL, FES, CBC, A1C, FERR, ADIFF #### [address] [address] #### B12, FOL, INSLN #### [address] [address] Total Protein 6.8 G/dL Normal 6.4-8.2 [facility] Comment on above: Performed By: #### A SAMUEL, FES, CBC, A1C, FERR, ADIFF #### [address] [address] #### B12, FOL, INSLN #### [address] [address] MGon 07-26-2024 Magnesium [Mass/Vol] 2.3 mg/dL Normal 1.8-2.4 [facility] Comment on above: Performed By: #### A SAMUEL, FES, CBC, A1C, FERR, ADIFF #### [place] [address] #### B12, FOL, INSLN #### [address] [address] .GFRon 07-25-2024 Estimated Glomerular Filtration Rate 111 ml/min/1.73sqm Normal [facility] Comment on above: Result Comment: Stages of Chronic Kidney Disease (CKD) Stage Description eGFR(ml/min/1.73 sq.m.) CKD 1 Normal kidney function or >=90 normal kindney function with possible kidney damage (ex. Proteinuria) CKD 2 Kidney damage with mild loss 60-89 of kidney function CKD 3a Mild to moderate loss of kidney 45-59 function CKD 3b Moderate to severe loss of 30-44 of kindey function CKD 4 Severe loss of kidney function 15-29 CKD 5 Kidney failure <15 Note: (go live 2024) the eGFR calculation was updated to the 2020 CKD-EPI creatinine equation without a race factor to calculate the eGFR results. Performed By: #### A SAMUEL, FES, CBC, A1C, FERR, ADIFF #### [address] [address] #### B12, FOL, INSLN #### [address] [address] BMPon 07-25-2024 BUN/Creatinine Ratio 13 ratio Normal 7-27 [facility] Comment on above: Performed By: #### A SAMUEL, FES, CBC, A1C, FERR, ADIFF #### [place] [address] #### B12, FOL, INSLN #### [address] [address] Calcium [Mass/Vol] 8.9 mg/dL Normal 8.4-10.2 [facility] Comment on above: Performed By: #### A SAMUEL, FES, CBC, A1C, FERR, ADIFF #### [place] [address] #### B12, FOL, INSLN #### [address] [address] Chloride [Moles/Vol] 105 mmol/L Normal 98-107 [facility] Comment on above: Performed By: #### A SAMUEL, FES, CBC, A1C, FERR, ADIFF #### [place] [address] #### B12, FOL, INSLN #### [place] [address] CO2 [Moles/Vol] 26 mmol/L Normal 22-29 [facility] Comment on above: Performed By: #### A SAMUEL, FES, CBC, A1C, FERR, ADIFF #### [place] [address] #### B12, FOL, INSLN #### [place] [address] Creatinine [Mass/Vol] 0.76 mg/dL Normal 0.55-1.02 [facility] Comment on above: Result Comment: Test ing performed on Siemens Dimension EXL analyzer using a modified kinetic Stephanie technique. Performed By: #### A SAMUEL, FES, CBC, A1C, FERR, ADIFF #### [place] [address] #### B12, FOL, INSLN #### [address] [address] Electrolyte Balance 9.0 mEq/L Normal 4.0-15.0 [facility] Comment on above: Performed By: #### A SAMUEL, FES, CBC, A1C, FERR, ADIFF #### [address] [address] #### B12, FOL, INSLN #### [place] [address] Glucose [Mass/Vol] 116 mg/dL High 70-105 [facility] Comment on above: Performed By: #### A SAMUEL, FES, CBC, A1C, FERR, ADIFF #### [place] [address] #### B12, FOL, INSLN #### [place] [address] Potassium [Moles/Vol] 3.7 mmol/L Normal 3.5-5.1 [facility] Comment on above: Performed By: #### A SAMUEL, FES, CBC, A1C, FERR, ADIFF #### [place] [address] #### B12, FOL, INSLN #### [place] [address] Sodium [Moles/Vol] 140 mmol/L Normal 136-145 [facility] Comment on above: Performed By: #### A SAMUEL, FES, CBC, A1C, FERR, ADIFF #### [place] [address] #### B12, FOL, INSLN #### [place] [address] Urea nitrogen [Mass/Vol] 10 mg/dL Normal 7-18 [facility] Comment on above: Performed By: #### A SAMUEL, FES, CBC, A1C, FERR, ADIFF #### [place] [address] #### B12, FOL, INSLN #### [address] [address] HFPon 07-25-2024 Bili Indirect Unable to Calculate Normal [facility] Comment on above: Result Comment: Unab le to calculate this test result accurately. Results used to calculate this test are outside the reportable range. Performed By: #### A SAMUEL, FES, CBC, A1C, FERR, ADIFF #### [place] [address] #### B12, FOL, INSLN #### [place] [address] Albumin Level 2.6 G/dL Low 3.5-5.0 [facility] Comment on above: Performed By: #### A SAMUEL, FES, CBC, A1C, FERR, ADIFF #### [place] [address] #### B12, FOL, INSLN #### [place] [address] Albumin/Globulin [Mass ratio] 0.6 {ratio} Low 1.1-2.5 [facility] Comment on above: Performed By: #### A SAMUEL, FES, CBC, A1C, FERR, ADIFF #### [place] [address] #### B12, FOL, INSLN #### [place] [address] ALP [Catalytic activity/Vol] 70 U/L Normal 40-135 [facility] Comment on above: Performed By: #### A SAMUEL, FES, CBC, A1C, FERR, ADIFF #### [place] [address] #### B12, FOL, INSLN #### [place] [address] ALT [Catalytic activity/Vol] 15 U/L Normal 14-59 [facility] Comment on above: Performed By: #### A SAMUEL, FES, CBC, A1C, FERR, ADIFF #### [place] [address] #### B12, FOL, INSLN #### [address] [address] AST [Catalytic activity/Vol] 14 U/L Normal 10-40 [facility] Comment on above: Performed By: #### A SAMUEL, FES, CBC, A1C, FERR, ADIFF #### [address] [address] #### B12, FOL, INSLN #### [place] [address] Bili Direct <0.1 Normal 0.0-0.2 [facility] Comment on above: Result Comment: Use of this assay is not recommended for patients undergoing treatment with eltrombopag due to the potential for falsely elevated results. Performed By: #### A SAMUEL, FES, CBC, A1C, FERR, ADIFF #### [place] [id number] #### B12, FOL, INSLN #### [place] [address] Bili Total 0.2 mg/dL Normal 0.2-1.0 [facility] Comment on above: Result Comment: Use of this assay is not recommended for patients undergoing treatment with eltrombopag due to the potential for falsely elevated results. Performed By: #### A SAMUEL, FES, CBC, A1C, FERR, ADIFF #### [place] [address] #### B12, FOL, INSLN #### [place] [address] Globulin 4.4 G/dL High 1.5-3.8 [facility] Comment on above: Performed By: #### A SAMUEL, FES, CBC, A1C, FERR, ADIFF #### [place] [address] #### B12, FOL, INSLN #### [place] [address] Total Protein 7.0 G/dL Normal 6.4-8.2 [facility] Comment on above: Performed By: #### A SAMUEL, FES, CBC, A1C, FERR, ADIFF #### [address] [address] #### B12, FOL, INSLN #### [address] [address] MGon 07-25-2024 Magnesium [Mass/Vol] 2.1 mg/dL Normal 1.8-2.4 [facility] Comment on above: Performed By: #### A SAMUEL, FES, CBC, A1C, FERR, ADIFF #### [address] [address] #### B12, FOL, INSLN #### [address] [address] BCIDon 07-24-2024 Acinetobacter feliberto-baumanii complex Not detected Normal Not Detected [facility] Comment on above: Order Comment: quezada d med surg at [facility] and spoke to HOMERO haq 07/24/2024 11:02:45 ESTBB Performed By: #### A SAMUEL, FES, CBC, A1C, FERR, ADIFF #### [address] [address] #### B12, FOL, INSLN #### [place] [address] Bacteroides fragilis Not detected Normal Not Detected [facility] Comment on above: Order Comment: damien d med surg at [facility] and spoke to HOMERO haq 07/24/2024 11:02:45 ESTBB Performed By: #### A SAMUEL, FES, CBC, A1C, FERR, ADIFF #### [address] [address] #### B12, FOL, INSLN #### [place] [address] BCID Comment See Comment Normal [facility] Comment on above: Order Comment: quezada d med surg at [facility] and spoke to HOMERO haq 07/24/2024 11:02:45 ESTBB Result Comment: Anti microbial resistance can occur via multiple mechanisms. A Not Detected result for antimicrobial resistance gene(s) does not indicate antimicrobial susceptibility. Culture identification and susceptibility results to follow. If BCID panel was negative (Not Detected) for all targets, this does not exclude a blood stream infection. Our blood culture system detected growth. Culture identification and susceptibility testing (if appropriate) to follow. Performed By: #### A SAMUEL, FES, CBC, A1C, FERR, ADIFF #### [address] [address] #### B12, FOL, INSLN #### [address] [address] Maria Elena albicans Not detected Normal Not Detected [facility] Comment on above: Order Comment: damien d med surg at [facility] and spoke to HOMERO haq 07/24/2024 11:02:45 ESTBB Performed By: #### A SAMUEL, FES, CBC, A1C, FERR, ADIFF #### [address] [address] #### B12, FOL, INSLN #### [place] [address] Maria Elena auris Not detected Normal Not Detected [facility] Comment on above: Order Comment: damien d med surg at [facility] and spoke to HOMERO haq 07/24/2024 11:02:45 ESTBB Performed By: #### A SAMUEL, FES, CBC, A1C, FERR, ADIFF #### [address] [address] #### B12, FOL, INSLN #### [place] [address] Maria Elena glabrata Not detected Normal Not Detected [facility] Comment on above: Order Comment: damien d med surg at [facility] and spoke to HOMERO haq 07/24/2024 11:02:45 ESTBB Performed By: #### A SAMUEL, FES, CBC, A1C, FERR, ADIFF #### [address] [address] #### B12, FOL, INSLN #### [place] [id number] Maria Elena krusei Not detected Normal Not Detected [facility] Comment on above: Order Comment: quezada d med surg at [facility] and spoke to HOMERO haq 07/24/2024 11:02:45 ESTBB Performed By: #### A SAMUEL, FES, CBC, A1C, FERR, ADIFF #### [address] [address] #### B12, FOL, INSLN #### [place] [address] Maria Elena parapsilosis Not detected Normal Not Detected [facility] Comment on above: Order Comment: quezada d med surg at [facility] and spoke to HOMERO haq 07/24/2024 11:02:45 ESTBB Performed By: #### A SAMUEL, FES, CBC, A1C, FERR, ADIFF #### [address] [address] #### B12, FOL, INSLN #### [place] [address] Maria Elena tropicalis Not detected Normal Not Detected [facility] Comment on above: Order Comment: damien d med surg at [facility] and spoke to HOMERO haq 07/24/2024 11:02:45 ESTBB Performed By: #### A SAMUEL, FES, CBC, A1C, FERR, ADIFF #### [address] [address] #### B12, FOL, INSLN #### [place] [address] Cryptococcus neoformans-gattii Not detected Normal Not Detected [facility] Comment on above: Order Comment: quezada d med surg at [facility] and spoke to HOMERO haq 07/24/2024 11:02:45 ESTBB Performed By: #### A SAMUEL, FES, CBC, A1C, FERR, ADIFF #### [address] [address] #### B12, FOL, INSLN #### [address] [address] CTX-M (ESBL) Not Applicable Normal Not Detected [facility] Comment on above: Order Comment: damien d med surg at [facility] and spoke to HOMERO haq 07/24/2024 11:02:45 ESTBB Performed By: #### A SAMUEL, FES, CBC, A1C, FERR, ADIFF #### [address] [address] #### B12, FOL, INSLN #### [place] [id number] E. Coli Not detected Normal Not Detected [facility] Comment on above: Order Comment: damien d med surg at [facility] and spoke to HOMERO haq 07/24/2024 11:02:45 ESTBB Performed By: #### A SAMUEL, FES, CBC, A1C, FERR, ADIFF #### [address] [address] #### B12, FOL, INSLN #### [address] [address] Enterobacter cloacae Complex Not detected Normal Not Detected [facility] Comment on above: Order Comment: damien yuen med surg at [facility] and spoke to HOMERO haq 07/24/2024 11:02:45 ESTBB Performed By: #### A SAMUEL, FES, CBC, A1C, FERR, ADIFF #### [address] [address] #### B12, FOL, INSLN #### [address] [address] Enterobacterales Not detected Normal Not Detected [facility] Comment on above: Order Comment: damien d med surg at [facility] and spoke to HOMERO haq 07/24/2024 11:02:45 ESTBB Performed By: #### A SAMUEL, FES, CBC, A1C, FERR, ADIFF #### [address] [address] #### B12, FOL, INSLN #### [facility] [address] [place] [address] Enterococcus faecalis Not detected Normal Not Detected [facility] Comment on above: Order Comment: quezada d med surg at [facility] and spoke to HOMERO haq 07/24/2024 11:02:45 ESTBB Performed By: #### A SAMUEL, FES, CBC, A1C, FERR, ADIFF #### [address] [address] #### B12, FOL, INSLN #### [address] [address] Enterococcus faecium Not detected Normal Not Detected [facility] Comment on above: Order Comment: quezada d med surg at [facility] and spoke to HOMERO haq 07/24/2024 11:02:45 ESTBB Performed By: #### A SAMUEL, FES, CBC, A1C, FERR, ADIFF #### [address] [address] #### B12, FOL, INSLN #### [address] [address] Haemophilus influenzae Not detected Normal Not Detected [facility] Comment on above: Order Comment: quezada d med surg at [facility] and spoke to HOMERO haq 07/24/2024 11:02:45 ESTBB Performed By: #### A SAMUEL, FES, CBC, A1C, FERR, ADIFF #### [address] [address] #### B12, FOL, INSLN #### [facility] [address] [place] [id number] IMP (Carbapenemase) Not Applicable Normal Not Detected [facility] Comment on above: Order Comment: quezada d med surg at [facility] and spoke to HOMERO haq 07/24/2024 11:02:45 ESTBB Performed By: #### A SAMUEL, FES, CBC, A1C, FERR, ADIFF #### [address] [address] #### B12, FOL, INSLN #### [address] [address] Klebsiella aerogenes Not detected Normal Not Detected [facility] Comment on above: Order Comment: quezada d med surg at [facility] and spoke to HOMERO haq 07/24/2024 11:02:45 ESTBB Performed By: #### A SAMUEL, FES, CBC, A1C, FERR, ADIFF #### [address] [address] #### B12, FOL, INSLN #### [address] [address] Klebsiella oxytoca Not detected Normal Not Detected [facility] Comment on above: Order Comment: quezada d med surg at [facility] and spoke to HOMERO haq 07/24/2024 11:02:45 ESTBB Performed By: #### A SAMUEL, FES, CBC, A1C, FERR, ADIFF #### [address] [address] #### B12, FOL, INSLN #### [address] [address] Klebsiella pneumoniae group Not detected Normal Not Detected [facility] Comment on above: Order Comment: damien d med surg at [facility] and spoke to HOMERO haq 07/24/2024 11:02:45 ESTBB Performed By: #### A SAMUEL, FES, CBC, A1C, FERR, ADIFF #### [address] [address] #### B12, FOL, INSLN #### [address] [address] KPC (Carbapenemase) Not Applicable Normal Not Detected [facility] Comment on above: Order Comment: quezada d med surg at [facility] and spoke to HOMERO haq 07/24/2024 11:02:45 ESTBB Performed By: #### A SAMUEL, FES, CBC, A1C, FERR, ADIFF #### [address] [address] #### B12, FOL, INSLN #### [address] [address] Listeria monocytogenes Not detected Normal Not Detected [facility] Comment on above: Order Comment: quezada d med surg at [facility] and spoke to HOMERO haq nmmichael 07/24/2024 11:02:45 ESTBB Performed By: #### A SAMUEL, FES, CBC, A1C, FERR, ADIFF #### [address] [address] #### B12, FOL, INSLN #### [place] [address] MCR-1 (Colistin Resistance) Not Applicable Normal Not Detected [facility] Comment on above: Order Comment: quezada d med surg at [facility] and spoke to HOMERO haq nmmichael 07/24/2024 11:02:45 ESTBB Performed By: #### A SAMUEL, FES, CBC, A1C, FERR, ADIFF #### [place] [address] #### B12, FOL, INSLN #### [place] [address] Mec A/C Not Applicable Normal Not Detected [facility] Comment on above: Order Comment: quezada d med surg at [facility] and spoke to HOMERO haq nmmichael 07/24/2024 11:02:45 ESTBB Performed By: #### A SAMUEL, FES, CBC, A1C, FERR, ADIFF #### [address] [address] #### B12, FOL, INSLN #### [address] [address] Mec A/C-MREJ (MRSA) Not Applicable Normal Not Detected [facility] Comment on above: Order Comment: quezada d med surg at [facility] and spoke to HOMERO haq nmmichael 07/24/2024 11:02:45 ESTBB Performed By: #### A SAMUEL, FES, CBC, A1C, FERR, ADIFF #### [address] [address] #### B12, FOL, INSLN #### [address] [address] NDM (Carbapenemase) Not Applicable Normal Not Detected [facility] Comment on above: Order Comment: quezada d med surg at [facility] and spoke to HOMERO haq 07/24/2024 11:02:45 ESTBB Performed By: #### A SAMUEL, FES, CBC, A1C, FERR, ADIFF #### [address] [address] #### B12, FOL, INSLN #### [address] [address] Neisseria meningitidis (Encapsalated) Not detected Normal Not Detected [facility] Comment on above: Order Comment: damien d med surg at [facility] and spoke to HOMERO haq 07/24/2024 11:02:45 ESTBB Performed By: #### A SAMUEL, FES, CBC, A1C, FERR, ADIFF #### [address] [address] #### B12, FOL, INSLN #### [address] [address] [id number] (Carbapenemase) Not Applicable Normal Not Detected [facility] Comment on above: Order Comment: damien d med surg at [facility] and spoke to HOMERO haq 07/24/2024 11:02:45 ESTBB Performed By: #### A SAMUEL, FES, CBC, A1C, FERR, ADIFF #### [address] [address] #### B12, FOL, INSLN #### [address] [address] Proteus Not detected Normal Not Detected [facility] Comment on above: Order Comment: damien d med surg at [facility] and spoke to HOMERO haq 07/24/2024 11:02:45 ESTBB Performed By: #### A SAMUEL, FES, CBC, A1C, FERR, ADIFF #### [address] [address] #### B12, FOL, INSLN #### [address] [address] Pseudomonas aeruginosa Not detected Normal Not Detected [facility] Comment on above: Order Comment: damien d med surg at [facility] and spoke to HOMERO haq 07/24/2024 11:02:45 ESTBB Performed By: #### A SAMUEL, FES, CBC, A1C, FERR, ADIFF #### [address] [address] #### B12, FOL, INSLN #### [place] [address] S. agalactiae Org specific cx Ql (Vag fld) Not detected Normal Not Detected [facility] Comment on above: Order Comment: damien d med surg at [facility] and spoke to HOMERO haq 07/24/2024 11:02:45 ESTBB Performed By: #### A SAMUEL, FES, CBC, A1C, FERR, ADIFF #### [address] [address] #### B12, FOL, INSLN #### [address] [address] Salmonella species Not detected Normal Not Detected [facility] Comment on above: Order Comment: damien d med surg at [facility] and spoke to HOMERO haq 07/24/2024 11:02:45 ESTBB Performed By: #### A SAMUEL, FES, CBC, A1C, FERR, ADIFF #### [address] [address] #### B12, FOL, INSLN #### [address] [address] Serratia marcescens Not detected Normal Not Detected [facility] Comment on above: Order Comment: damien d med surg at [facility] and spoke to HOMERO haq 07/24/2024 11:02:45 ESTBB Performed By: #### A SAMUEL, FES, CBC, A1C, FERR, ADIFF #### [address] [address] #### B12, FOL, INSLN #### [address] [address] Staphylococcus Detected Abnormal Not Detected [facility] Comment on above: Order Comment: damien d med surg at [facility] and spoke to HOMERO haq 07/24/2024 11:02:45 ESTBB Performed By: #### A SAMUEL, FES, CBC, A1C, FERR, ADIFF #### [address] [address] #### B12, FOL, INSLN #### [place] [address] Staphylococcus aureus Not detected Normal Not Detected [facility] Comment on above: Order Comment: daimen d med surg at [facility] and spoke to HOMREO haq 07/24/2024 11:02:45 ESTBB Result Comment: If S taphylococcus aureus is Detected, an Infectious Disease physician consult is required on identification. Performed By: #### A SAMUEL, FES, CBC, A1C, FERR, ADIFF #### [address] [address] #### B12, FOL, INSLN #### [place] [address] Staphylococcus epidermidis Not detected Normal Not Detected [facility] Comment on above: Order Comment: damien d med surg at [facility] and spoke to HOMERO haq 07/24/2024 11:02:45 ESTBB Performed By: #### A SAMUEL, FES, CBC, A1C, FERR, ADIFF #### [address] [address] #### B12, FOL, INSLN #### [place] [address] Staphylococcus lugdunensis Not detected Normal Not Detected [facility] Comment on above: Order Comment: quezada d med surg at [facility] and spoke to HOMERO haq 07/24/2024 11:02:45 ESTBB Performed By: #### A SAMUEL, FES, CBC, A1C, FERR, ADIFF #### [address] [address] #### B12, FOL, INSLN #### [place] [address] Stenotrophomonas maltophilia Not detected Normal Not Detected [facility] Comment on above: Order Comment: quezada d med surg at [facility] and spoke to HOEMRO haq 07/24/2024 11:02:45 ESTBB Performed By: #### A SAMUEL, FES, CBC, A1C, FERR, ADIFF #### [address] [address] #### B12, FOL, INSLN #### [place] [address] Streptococcus Not detected Normal Not Detected [facility] Comment on above: Order Comment: quezada d med surg at [facility] and spoke to HOMERO haq 07/24/2024 11:02:45 ESTBB Performed By: #### A SAMUEL, FES, CBC, A1C, FERR, ADIFF #### [address] [address] #### B12, FOL, INSLN #### [place] [address] Streptococcus pneumoniae Not detected Normal Not Detected [facility] Comment on above: Order Comment: quezada d med surg at [facility] and spoke to HOMERO haq 07/24/2024 11:02:45 ESTBB Performed By: #### A SAMUEL, FES, CBC, A1C, FERR, ADIFF #### [address] [address] #### B12, FOL, INSLN #### [place] [address] Streptococcus pyogenes Not detected Normal Not Detected [facility] Comment on above: Order Comment: quezada d med surg at [facility] and spoke to HOMERO haq 07/24/2024 11:02:45 ESTBB Performed By: #### A SAMUEL, FES, CBC, A1C, FERR, ADIFF #### [address] [address] #### B12, FOL, INSLN #### [address] [address] Van A/B Not Applicable Normal Not Detected [facility] Comment on above: Order Comment: quezada d med surg at [facility] and spoke to HOMERO haq 07/24/2024 11:02:45 ESTBB Performed By: #### A SAMUEL, FES, CBC, A1C, FERR, ADIFF #### [address] [address] #### B12, FOL, INSLN #### [place] [id number] VIM (Carbapenemase) Not Applicable Normal Not Detected [facility] Comment on above: Order Comment: quezada d med surg at [facility] and spoke to HOMERO haq 07/24/2024 11:02:45 ESTBB Performed By: #### A SAMUEL, FES, CBC, A1C, FERR, ADIFF #### [address] [address] #### B12, FOL, INSLN #### [address] [address] HFPon 07-24-2024 Bili Indirect Unable to Calculate Normal [facility] Comment on above: Result Comment: Unab le to calculate this test result accurately. Results used to calculate this test are outside the reportable range. Performed By: #### G FR BMP #### [address] [address] Albumin Level 2.7 G/dL Low 3.5-5.0 [facility] Comment on above: Performed By: #### G FR, BMP #### [place] [id number] Albumin/Globulin [Mass ratio] 0.6 {ratio} Low 1.1-2.5 [facility] Comment on above: Performed By: #### Puneet BILLINGSLEY, BMP #### [place] [id number] ALP [Catalytic activity/Vol] 72 U/L Normal 40-135 [facility] Comment on above: Performed By: #### Puneet BILLINGSLEY, BMP #### [place] [id number] ALT [Catalytic activity/Vol] 16 U/L Normal 14-59 [facility] Comment on above: Performed By: #### Puneet BILLINGSLEY, BMP #### [place] [address] AST [Catalytic activity/Vol] 12 U/L Normal 10-40 [facility] Comment on above: Performed By: #### Puneet BILLINGSLEY, BMP #### [place] [id number] Bili Direct <0.1 Normal 0.0-0.2 [facility] Comment on above: Result Comment: Use of this assay is not recommended for patients undergoing treatment with eltrombopag due to the potential for falsely elevated results. Performed By: #### Puneet BILLINGSLEY, BMP #### [place] [address] Bili Total 0.3 mg/dL Normal 0.2-1.0 [facility] Comment on above: Result Comment: Use of this assay is not recommended for patients undergoing treatment with eltrombopag due to the potential for falsely elevated results. Performed By: #### Puneet BILLINGSLEY, BMP #### [place] [id number] Globulin 4.2 G/dL High 1.5-3.8 [facility] Comment on above: Performed By: #### Puneet BILLINGSLEY, BMP #### [place] [id number] Total Protein 6.9 G/dL Normal 6.4-8.2 [facility] Comment on above: Performed By: #### G FR, BMP #### [place] [address] MYCOon 07-24-2024 Mycoplasma IgG Positive Normal [facility] Comment on above: Result Comment: INTE RPRETATION OF MYCOPLASMA IgG BY EIA: Negative: No detectable M. pneumoniae IgG antibody. Positive: Mycoplasma pneumoniae IgG antibody Detected. Equivocal: Equivocal for IgG antibodies to Mycoplasma pneumoniae. Suggest repeat testing in 10-14 days. Performed By: #### A SAMUEL, FES, CBC, A1C, FERR, ADIFF #### [place] [address] #### B12, FOL, INSLN #### [address] [address] .Auto Diffon 07-23-2024 Basophil, Absolute 0.2 10 3/mcL Normal 0.0-0.2 [facility] Comment on above: Performed By: #### A SAMUEL, FES, CBC, A1C, FERR, ADIFF #### [place] [address] #### B12, FOL, INSLN #### [address] [address] Basophils/100 WBC (Bld) 1.5 % Normal 0.0-2.5 [facility] Comment on above: Performed By: #### A SAMUEL, FES, CBC, A1C, FERR, ADIFF #### [place] [address] #### B12, FOL, INSLN #### [address] [address] Eosinophil, Absolute 0.0 10 3/mcL Normal 0.0-0.7 [facility] Comment on above: Performed By: #### A SAMUEL, FES, CBC, A1C, FERR, ADIFF #### [place] [address] #### B12, FOL, INSLN #### [address] [address] Eosinophils/100 WBC (Bld) 0.3 % Normal 0.0-7.0 [facility] Comment on above: Performed By: #### A SAMUEL, FES, CBC, A1C, FERR, ADIFF #### [place] [address] #### B12, FOL, INSLN #### [address] [address] Lymphocyte, Absolute 1.5 10 3/mcL Normal 0.9-4.3 [facility] Comment on above: Performed By: #### A SAMUEL, FES, CBC, A1C, FERR, ADIFF #### [place] [address] #### B12, FOL, INSLN #### [address] [address] Lymphocytes/100 WBC (Bld) 14.3 % Low 20.0-40.0 [facility] Comment on above: Performed By: #### A SAMUEL, FES, CBC, A1C, FERR, ADIFF #### [place] [address] #### B12, FOL, INSLN #### [address] [address] Monocyte, Absolute 1.0 10 3/mcL Normal 0.1-1.4 [facility] Comment on above: Performed By: #### A SAMUEL, FES, CBC, A1C, FERR, ADIFF #### [place] [address] #### B12, FOL, INSLN #### [address] [address] Monocytes/100 WBC (Bld) 8.9 % Normal 2.0-13.0 [facility] Comment on above: Performed By: #### A SAMUEL, FES, CBC, A1C, FERR, ADIFF #### [place] [address] #### B12, FOL, INSLN #### [address] [address] Neutrophils/100 WBC (Bld) 75.0 % Normal 50.0-75.0 [facility] Comment on above: Performed By: #### A SAMUEL, FES, CBC, A1C, FERR, ADIFF #### [place] [address] #### B12, FOL, INSLN #### [address] [address] Basophil, Absolute 0.0 10 3/mcL Normal 0.0-0.2 [facility] Comment on above: Performed By: #### A SAMUEL, FES, CBC, A1C, FERR, ADIFF #### [place] [address] #### B12, FOL, INSLN #### [address] [address] Basophils/100 WBC (Bld) 0.3 % Normal 0.0-2.5 [facility] Comment on above: Performed By: #### A SAMUEL, FES, CBC, A1C, FERR, ADIFF #### [place] [address] #### B12, FOL, INSLN #### [address] [address] Eosinophil, Absolute 0.0 10 3/mcL Normal 0.0-0.7 [facility] Comment on above: Performed By: #### A SAMUEL, FES, CBC, A1C, FERR, ADIFF #### [place] [address] #### B12, FOL, INSLN #### [address] [address] Eosinophils/100 WBC (Bld) 0.2 % Normal 0.0-7.0 [facility] Comment on above: Performed By: #### A SAMUEL, FES, CBC, A1C, FERR, ADIFF #### [place] [address] #### B12, FOL, INSLN #### [address] [address] Lymphocyte, Absolute 1.2 10 3/mcL Normal 0.9-4.3 [facility] Comment on above: Performed By: #### A SAMUEL, FES, CBC, A1C, FERR, ADIFF #### [place] [address] #### B12, FOL, INSLN #### [address] [address] Lymphocytes/100 WBC (Bld) 8.9 % Low 20.0-40.0 [facility] Comment on above: Performed By: #### A SAMUEL, FES, CBC, A1C, FERR, ADIFF #### [place] [address] #### B12, FOL, INSLN #### [address] [address] Monocyte, Absolute 1.0 10 3/mcL Normal 0.1-1.4 [facility] Comment on above: Performed By: #### A SAMUEL, FES, CBC, A1C, FERR, ADIFF #### [place] [address] #### B12, FOL, INSLN #### [address] [address] Monocytes/100 WBC (Bld) 7.1 % Normal 2.0-13.0 [facility] Comment on above: Performed By: #### A SAMUEL, FES, CBC, A1C, FERR, ADIFF #### [place] [address] #### B12, FOL, INSLN #### [address] [address] Neutrophils/100 WBC (Bld) 83.5 % High 50.0-75.0 [facility] Comment on above: Performed By: #### A SAMUEL, FES, CBC, A1C, FERR, ADIFF #### [place] [address] #### B12, FOL, INSLN #### [address] [address] .GFRon 07-23-2024 Estimated Glomerular Filtration Rate 92 ml/min/1.73sqm Normal [facility] Comment on above: Result Comment: Stages of Chronic Kidney Disease (CKD) Stage Description eGFR(ml/min/1.73 sq.m.) CKD 1 Normal kidney function or >=90 normal kindney function with possible kidney damage (ex. Proteinuria) CKD 2 Kidney damage with mild loss 60-89 of kidney function CKD 3a Mild to moderate loss of kidney 45-59 function CKD 3b Moderate to severe loss of 30-44 of kindey function CKD 4 Severe loss of kidney function 15-29 CKD 5 Kidney failure <15 Note: ( live 06/24/2024) the eGFR calculation was updated to the 2020 CKD-EPI creatinine equation without a race factor to calculate the eGFR results. Performed By: #### A SAMUEL, FES, CBC, A1C, FERR, ADIFF #### [address] [address] #### B12, FOL, INSLN #### [place] [address] Estimated Glomerular Filtration Rate 85 ml/min/1.73sqm Normal [facility] Comment on above: Result Comment: Stages of Chronic Kidney Disease (CKD) Stage Description eGFR(ml/min/1.73 sq.m.) CKD 1 Normal kidney function or >=90 normal kindney function with possible kidney damage (ex. Proteinuria) CKD 2 Kidney damage with mild loss 60-89 of kidney function CKD 3a Mild to moderate loss of kidney 45-59 function CKD 3b Moderate to severe loss of 30-44 of kindey function CKD 4 Severe loss of kidney function 15-29 CKD 5 Kidney failure <15 Note: ( live 06/24/2024) the eGFR calculation was updated to the 2020 CKD-EPI creatinine equation without a race factor to calculate the eGFR results. Performed By: #### A SAMUEL, FES, CBC, A1C, FERR, ADIFF #### [address] [address] #### B12, FOL, INSLN #### [address] [address] .NEUABSon 07-23-2024 Neutrophil, Absolute 8.1 10 3/mcL Normal 2.3-8.1 [facility] Comment on above: Performed By: #### A SAMUEL, FES, CBC, A1C, FERR, ADIFF #### [address] [address] #### B12, FOL, INSLN #### [address] [address] Neutrophil, Absolute 11.3 10 3/mcL High 2.3-8.1 [facility] Comment on above: Performed By: #### A SAMUEL, FES, CBC, A1C, FERR, ADIFF #### [place] [address] #### B12, FOL, INSLN #### [place] [address] APTTon 07-23-2024 aPTT Coag (Bld) [Time] 34.0 s Normal 25.0-35.0 [facility] Comment on above: Result Comment: For Heparin anticoagulation therapy, the recommended therapeutic range is: 45.4-75.9 seconds. Patients on heparin therapy may have an extreme result. Performed By: #### A SAMUEL, FES, CBC, A1C, FERR, ADIFF #### [address] [address] #### B12, FOL, INSLN #### [address] [address] BMPon 07-23-2024 BUN/Creatinine Ratio 7 ratio Normal 7-27 [facility] Comment on above: Performed By: #### A SAMUEL, FES, CBC, A1C, FERR, ADIFF #### [place] [address] #### B12, FOL, INSLN #### [address] [address] Calcium [Mass/Vol] 8.6 mg/dL Normal 8.4-10.2 [facility] Comment on above: Performed By: #### A SAMUEL, FES, CBC, A1C, FERR, ADIFF #### [address] [address] #### B12, FOL, INSLN #### [address] [address] Chloride [Moles/Vol] 105 mmol/L Normal 98-107 [facility] Comment on above: Performed By: #### A SAMUEL, FES, CBC, A1C, FERR, ADIFF #### [address] [address] #### B12, FOL, INSLN #### [address] [address] CO2 [Moles/Vol] 26 mmol/L Normal 22-29 [facility] Comment on above: Performed By: #### A SAMUEL, FES, CBC, A1C, FERR, ADIFF #### [address] [address] #### B12, FOL, INSLN #### [address] [address] Creatinine [Mass/Vol] 0.95 mg/dL Normal 0.55-1.02 [facility] Comment on above: Result Comment: Test ing performed on Siemens Dimension EXL analyzer using a modified kinetic Stephanie technique. Performed By: #### A SAMUEL, FES, CBC, A1C, FERR, ADIFF #### [address] [address] #### B12, FOL, INSLN #### [address] [address] Electrolyte Balance 7.0 mEq/L Normal 4.0-15.0 [facility] Comment on above: Performed By: #### A SAMUEL, FES, CBC, A1C, FERR, ADIFF #### [address] [address] #### B12, FOL, INSLN #### [address] [address] Glucose [Mass/Vol] 139 mg/dL High 70-105 [facility] Comment on above: Performed By: #### A SAMUEL, FES, CBC, A1C, FERR, ADIFF #### [address] [address] #### B12, FOL, INSLN #### [address] [address] Potassium [Moles/Vol] 3.4 mmol/L Low 3.5-5.1 [facility] Comment on above: Performed By: #### A SAMUEL, FES, CBC, A1C, FERR, ADIFF #### [address] [address] #### B12, FOL, INSLN #### [place] [address] Sodium [Moles/Vol] 138 mmol/L Normal 136-145 [facility] Comment on above: Performed By: #### A SAMUEL, FES, CBC, A1C, FERR, ADIFF #### [place] [address] #### B12, FOL, INSLN #### [place] [address] Urea nitrogen [Mass/Vol] 7 mg/dL Normal 7-18 [facility] Comment on above: Performed By: #### A SAMUEL, FES, CBC, A1C, FERR, ADIFF #### [place] [address] #### B12, FOL, INSLN #### [place] [address] CBCon 07-23-2024 Erythrocyte distribution width (RBC) [Ratio] 13.0 % Normal 11.5-15.5 [facility] Comment on above: Performed By: #### A SAMUEL, FES, CBC, A1C, FERR, ADIFF #### [place] [address] #### B12, FOL, INSLN #### [place] [address] Hematocrit (Bld) [Volume fraction] 30.8 % Low 34.0-46.0 [facility] Comment on above: Performed By: #### A SAMUEL, FES, CBC, A1C, FERR, ADIFF #### [place] [address] #### B12, FOL, INSLN #### [place] [address] Hgb 10.5 G/dL Low 12.0-16.0 [facility] Comment on above: Performed By: #### A SAMUEL, FES, CBC, A1C, FERR, ADIFF #### [place] [address] #### B12, FOL, INSLN #### [place] [address] MCH (RBC) [Entitic mass] 28.9 pg Normal 27.0-33.0 [facility] Comment on above: Performed By: #### A SAMUEL, FES, CBC, A1C, FERR, ADIFF #### [place] [address] #### B12, FOL, INSLN #### [place] [address] MCHC 34.1 G/dL Normal 32.0-36.0 [facility] Comment on above: Performed By: #### A SAMUEL, FES, CBC, A1C, FERR, ADIFF #### [place] [address] #### B12, FOL, INSLN #### [place] [address] MCV (RBC) [Entitic vol] 84.8 fL Normal 80.0-99.0 [facility] Comment on above: Performed By: #### A SAMUEL, FES, CBC, A1C, FERR, ADIFF #### [place] [address] #### B12, FOL, INSLN #### [place] [address] Platelet 280 10 3/mcL Normal 150-450 [facility] Comment on above: Performed By: #### A SAMUEL, FES, CBC, A1C, FERR, ADIFF #### [place] [address] #### B12, FOL, INSLN #### [place] [address] Platelet mean volume (Bld) [Entitic vol] 7.5 fL Normal 6.6-10.5 [facility] Comment on above: Performed By: #### A SAMUEL, FES, CBC, A1C, FERR, ADIFF #### [place] [address] #### B12, FOL, INSLN #### [place] [address] RBC 3.63 10 6/mcL Low 4.10-5.30 [facility] Comment on above: Performed By: #### A SAMUEL, FES, CBC, A1C, FERR, ADIFF #### [place] [address] #### B12, FOL, INSLN #### [place] [address] WBC 10.8 10 3/mcL Normal 4.5-10.8 [facility] Comment on above: Performed By: #### A SAMUEL, FES, CBC, A1C, FERR, ADIFF #### [place] [address] #### B12, FOL, INSLN #### [place] [address] Erythrocyte distribution width (RBC) [Ratio] 12.7 % Normal 11.5-15.5 [facility] Comment on above: Performed By: #### A SAMUEL, FES, CBC, A1C, FERR, ADIFF #### [place] [address] #### B12, FOL, INSLN #### [place] [address] Hematocrit (Bld) [Volume fraction] 30.3 % Low 34.0-46.0 [facility] Comment on above: Performed By: #### A SAMUEL, FES, CBC, A1C, FERR, ADIFF #### [place] [address] #### B12, FOL, INSLN #### [place] [address] Hgb 10.2 G/dL Low 12.0-16.0 [facility] Comment on above: Performed By: #### A SAMUEL, FES, CBC, A1C, FERR, ADIFF #### [place] [address] #### B12, FOL, INSLN #### [address] [address] MCH (RBC) [Entitic mass] 28.3 pg Normal 27.0-33.0 [facility] Comment on above: Performed By: #### A SAMUEL, FES, CBC, A1C, FERR, ADIFF #### [place] [address] #### B12, FOL, INSLN #### [place] [address] MCHC 33.6 G/dL Normal 32.0-36.0 [facility] Comment on above: Performed By: #### A SAMUEL, FES, CBC, A1C, FERR, ADIFF #### [place] [address] #### B12, FOL, INSLN #### [place] [address] MCV (RBC) [Entitic vol] 84.1 fL Normal 80.0-99.0 [facility] Comment on above: Performed By: #### A SAMUEL, FES, CBC, A1C, FERR, ADIFF #### [place] [address] #### B12, FOL, INSLN #### [place] [address] Platelet 280 10 3/mcL Normal 150-450 [facility] Comment on above: Performed By: #### A SAMUEL, FES, CBC, A1C, FERR, ADIFF #### [place] [address] #### B12, FOL, INSLN #### [place] [address] Platelet mean volume (Bld) [Entitic vol] 8.0 fL Normal 6.6-10.5 [facility] Comment on above: Performed By: #### A SAMUEL, FES, CBC, A1C, FERR, ADIFF #### [place] [address] #### B12, FOL, INSLN #### [place] [address] RBC 3.60 10 6/mcL Low 4.10-5.30 [facility] Comment on above: Performed By: #### A SAMUEL, FES, CBC, A1C, FERR, ADIFF #### [place] [address] #### B12, FOL, INSLN #### [place] [address] WBC 13.6 10 3/mcL High 4.5-10.8 [facility] Comment on above: Performed By: #### A SAMUEL, FES, CBC, A1C, FERR, ADIFF #### [place] [address] #### B12, FOL, INSLN #### [place] [address] CMPon 07-23-2024 Albumin Level 2.8 G/dL Low 3.5-5.0 [facility] Comment on above: Performed By: #### A SAMUEL, FES, CBC, A1C, FERR, ADIFF #### [place] [address] #### B12, FOL, INSLN #### [place] [address] Albumin/Globulin [Mass ratio] 0.7 {ratio} Low 1.1-2.5 [facility] Comment on above: Performed By: #### A SAMUEL, FES, CBC, A1C, FERR, ADIFF #### [place] [address] #### B12, FOL, INSLN #### [place] [address] ALP [Catalytic activity/Vol] 74 U/L Normal 40-135 [facility] Comment on above: Performed By: #### A SAMUEL, FES, CBC, A1C, FERR, ADIFF #### [place] [id number] #### B12, FOL, INSLN #### [address] [address] ALT [Catalytic activity/Vol] 18 U/L Normal 14-59 [facility] Comment on above: Performed By: #### A SAMUEL, FES, CBC, A1C, FERR, ADIFF #### [place] [id number] #### B12, FOL, INSLN #### [place] [address] AST [Catalytic activity/Vol] 14 U/L Normal 10-40 [facility] Comment on above: Performed By: #### A SAMUEL, FES, CBC, A1C, FERR, ADIFF #### [place] [id number] #### B12, FOL, INSLN #### [place] [address] Bili Total 0.2 mg/dL Normal 0.2-1.0 [facility] Comment on above: Result Comment: Use of this assay is not recommended for patients undergoing treatment with eltrombopag due to the potential for falsely elevated results. Performed By: #### A SAMUEL, FES, CBC, A1C, FERR, ADIFF #### [place] [id number] #### B12, FOL, INSLN #### [place] [address] BUN/Creatinine Ratio 6 ratio Low 7-27 [facility] Comment on above: Performed By: #### A SAMUEL, FES, CBC, A1C, FERR, ADIFF #### [place] [address] #### B12, FOL, INSLN #### [place] [address] Calcium [Mass/Vol] 8.7 mg/dL Normal 8.4-10.2 [facility] Comment on above: Performed By: #### A SAMUEL, FES, CBC, A1C, FERR, ADIFF #### [address] [address] #### B12, FOL, INSLN #### [address] [address] Chloride [Moles/Vol] 107 mmol/L Normal 98-107 [facility] Comment on above: Performed By: #### A SAMUEL, FES, CBC, A1C, FERR, ADIFF #### [place] [address] #### B12, FOL, INSLN #### [address] [address] CO2 [Moles/Vol] 28 mmol/L Normal 22-29 [facility] Comment on above: Performed By: #### A SAMUEL, FES, CBC, A1C, FERR, ADIFF #### [place] [address] #### B12, FOL, INSLN #### [address] [address] Creatinine [Mass/Vol] 0.89 mg/dL Normal 0.55-1.02 [facility] Comment on above: Result Comment: Test ing performed on Siemens Dimension EXL analyzer using a modified kinetic Stephanie technique. Performed By: #### A SAMUEL, FES, CBC, A1C, FERR, ADIFF #### [place] [address] #### B12, FOL, INSLN #### [address] [address] Electrolyte Balance 5.0 mEq/L Normal 4.0-15.0 [facility] Comment on above: Performed By: #### A SAMUEL, FES, CBC, A1C, FERR, ADIFF #### [place] [address] #### B12, FOL, INSLN #### [address] [address] Globulin 4.1 G/dL High 1.5-3.8 [facility] Comment on above: Performed By: #### A SAMUEL, FES, CBC, A1C, FERR, ADIFF #### [place] [address] #### B12, FOL, INSLN #### [address] [address] Glucose [Mass/Vol] 112 mg/dL High 70-105 [facility] Comment on above: Performed By: #### A SAMUEL, FES, CBC, A1C, FERR, ADIFF #### [place] [address] #### B12, FOL, INSLN #### [address] [address] Potassium [Moles/Vol] 4.0 mmol/L Normal 3.5-5.1 [facility] Comment on above: Performed By: #### A SAMUEL, FES, CBC, A1C, FERR, ADIFF #### [place] [address] #### B12, FOL, INSLN #### [address] [address] Sodium [Moles/Vol] 140 mmol/L Normal 136-145 [facility] Comment on above: Performed By: #### A SAMUEL, FES, CBC, A1C, FERR, ADIFF #### [place] [address] #### B12, FOL, INSLN #### [address] [address] Total Protein 6.9 G/dL Normal 6.4-8.2 [facility] Comment on above: Performed By: #### A SAMUEL, FES, CBC, A1C, FERR, ADIFF #### [place] [address] #### B12, FOL, INSLN #### [address] [address] Urea nitrogen [Mass/Vol] 5 mg/dL Low 7-18 [facility] Comment on above: Performed By: #### A SAMUEL, FES, CBC, A1C, FERR, ADIFF #### [address] [address] #### B12, FOL, INSLN #### [place] [address] LDHon 07-23-2024 LDH 160 U/L Normal 81-234 [facility] Comment on above: Performed By: #### A SAMUEL, FES, CBC, A1C, FERR, ADIFF #### [place] [address] #### B12, FOL, INSLN #### [place] [address] MGon 07-23-2024 Magnesium [Mass/Vol] 1.7 mg/dL Low 1.8-2.4 [facility] Comment on above: Performed By: #### A SAMUEL, FES, CBC, A1C, FERR, ADIFF #### [place] [address] #### B12, FOL, INSLN #### [place] [address] MYCOon 07-23-2024 Mycoplasma IgM Negative Normal [facility] Comment on above: Result Comment: INTE RPRETATION OF MYCOPLASMA IgM: Negative: IgM to M. pneumoniae Absent, or at levels below the assay limit of detection. Positive: IgM to M. pneumoniae Present. Invalid: Test results are invalid due to invalid internal control. Assay was performed in duplicate. Repeat testing is suggested if clinically indicated. Performed By: #### A SAMUEL, FES, CBC, A1C, FERR, ADIFF #### [place] [address] #### B12, FOL, INSLN #### [place] [address] RESCVIDon 07-23-2024 Adenovirus Not detected Normal Not Detected [facility] Comment on above: Performed By: #### G FR, BMP #### [place] [address] Bordetella Parapertussis Not detected Normal Not Detected [facility] Comment on above: Performed By: #### G FR, BMP #### [address] [address] Bordetella Pertussis Not detected Normal Not Detected [facility] Comment on above: Performed By: #### G FR, BMP #### [address] [address] Chlamydophila pneumoniae Not detected Normal Not Detected [facility] Comment on above: Performed By: #### G FR, BMP #### [address] [address] Coronavirus 229E (Not COVID-19) Not detected Normal Not Detected [facility] Comment on above: Performed By: #### G FR, BMP #### [place] [id number] Coronavirus HKU1 (Not COVID-19) Not detected Normal Not Detected [facility] Comment on above: Performed By: #### G FR, BMP #### [place] [phone] Coronavirus NL63 (Not COVID-19) Not detected Normal Not Detected [facility] Comment on above: Performed By: #### G FR, BMP #### [address] [address] Coronavirus OC43 (Not COVID-19) Not detected Normal Not Detected [facility] Comment on above: Performed By: #### G FR, BMP #### [address] [address] Human Metapneumovirus Not detected Normal Not Detected [facility] Comment on above: Performed By: #### G FR, BMP #### [address] [address] Influenza A Not detected Normal Not Detected [facility] Comment on above: Performed By: #### G FR, BMP #### [address] [address] Influenza B Not detected Normal Not Detected [facility] Comment on above: Performed By: #### G FR, BMP #### [address] [address] Mycoplasma pneumoniae Not detected Normal Not Detected [facility] Comment on above: Performed By: #### G FR, BMP #### [place] [id number] Parainfluenza 1 Not detected Normal Not Detected [facility] Comment on above: Performed By: #### G FR, BMP #### [place] [address] Parainfluenza 2 Not detected Normal Not Detected [facility] Comment on above: Performed By: #### G FR, BMP #### [place] [address] Parainfluenza 3 Not detected Normal Not Detected [facility] Comment on above: Performed By: #### G FR, BMP #### [place] [address] Parainfluenza 4 Not detected Normal Not Detected [facility] Comment on above: Performed By: #### G FR, BMP #### [place] [address] Respiratory Syncytial Virus Not detected Normal Not Detected [facility] Comment on above: Performed By: #### G FR, BMP #### [place] [address] Rhinovirus/Enteroviru s Not detected Normal Not Detected [facility] Comment on above: Performed By: #### G FR, BMP #### [place] [phone] SARS-CoV-2 (COVID-19) RNA SHO+probe Ql (Unsp spec) Not detected Normal Not Detected [facility] Comment on above: Result Comment: This assay has been validated in the [facility] for use with nasopharyngeal specimens in [facility]. If a non-validated specimen or test collection method was used, please interpret the results with caution, especially if the test result is negative. A positive test result for COVID-19 indicates that RNA from SARS-CoV-2 was detected, and the patient is infected with the virus and presumed to be contagious. Laboratory test results should always be considered in the context of clinical observations and epidemiological data in making a final diagnosis and patient management decisions. Patient management should follow current CDC guidelines. A negative test result for this test means that SARS-CoV-2 RNA was not present in the specimen above the limit of detection. However, a negative result does not rule out COVID-19 and should not be used as the sole basis for treatment or patient management decisions. A negative result does not exclude the possibility of COVID-19. When diagnostic testing is negative, the possibility of a false negative result should be considered in the context of a patient's recent exposures and the presence of clinical signs and symptoms consistent with COVID-19. The possibility of a false negative result should especially be considered if the patient???s recent exposures or clinical presentation indicate that COVID-19 is likely, and diagnostic tests for other causes of illness (e.g., other respiratory illness) are negative. If COVID-19 is still suspected based on exposure history together with other clinical findings, re-testing should be considered by healthcare providers in consultation with public health authorities. Performed By: #### G , BMP #### [address] [address] .GFRon 07-22-2024 Estimated Glomerular Filtration Rate 103 ml/min/1.73sqm [facility] Comment on above: Result Comment: Stages of Chronic Kidney Disease (CKD) Stage Description eGFR(ml/min/1.73 sq.m.) CKD 1 Normal kidney function or >=90 normal kindney function with possible kidney damage (ex. Proteinuria) CKD 2 Kidney damage with mild loss 60-89 of kidney function CKD 3a Mild to moderate loss of kidney 45-59 function CKD 3b Moderate to severe loss of 30-44 of kindey function CKD 4 Severe loss of kidney function 15-29 CKD 5 Kidney failure <15 Note: (go live 2024) the eGFR calculation was updated to the 2020 CKD-EPI creatinine equation without a race factor to calculate the eGFR results. Performed By: #### G , BMP #### [address] [address] Estimated Glomerular Filtration Rate 89 ml/min/1.73sqm Normal [facility] Comment on above: Result Comment: Stages of Chronic Kidney Disease (CKD) Stage Description eGFR(ml/min/1.73 sq.m.) CKD 1 Normal kidney function or >=90 normal kindney function with possible kidney damage (ex. Proteinuria) CKD 2 Kidney damage with mild loss 60-89 of kidney function CKD 3a Mild to moderate loss of kidney 45-59 function CKD 3b Moderate to severe loss of 30-44 of kindey function CKD 4 Severe loss of kidney function 15-29 CKD 5 Kidney failure <15 Note: (go live 2024) the eGFR calculation was updated to the 2020 CKD-EPI creatinine equation without a race factor to calculate the eGFR results. Performed By: #### Puneet BILLINGSLEY, BMP #### [address] [address] BMPon 07-22-2024 BUN/Creatinine Ratio 10 ratio Normal 7-27 [facility] Comment on above: Performed By: #### Puneet BILLINGSLEY, BMP #### [address] [address] Calcium [Mass/Vol] 8.3 mg/dL Low 8.4-10.2 [facility] Comment on above: Performed By: #### Puneet BILLINGSLEY, BMP #### [address] [address] Chloride [Moles/Vol] 108 mmol/L High 98-107 [facility] Comment on above: Performed By: #### Puneet BILLINGSLEY, BMP #### [address] [address] CO2 [Moles/Vol] 26 mmol/L Normal 22-29 [facility] Comment on above: Performed By: #### Puneet BILLINGSLEY, BMP #### [address] [address] Creatinine [Mass/Vol] 0.81 mg/dL Normal 0.55-1.02 [facility] Comment on above: Result Comment: Test ing performed on Siemens Dimension EXL analyzer using a modified kinetic Stephanie technique. Performed By: #### Puneet BILLINGSLEY, BMP #### [address] [address] Electrolyte Balance 8.0 mEq/L Normal 4.0-15.0 [facility] Comment on above: Performed By: #### Puneet FR, BMP #### [address] [address] Glucose [Mass/Vol] 123 mg/dL High 70-105 [facility] Comment on above: Performed By: #### G FR, BMP #### [address] [address] Potassium [Moles/Vol] 3.7 mmol/L Normal 3.5-5.1 [facility] Comment on above: Performed By: #### G FR, BMP #### [address] [address] Sodium [Moles/Vol] 142 mmol/L Normal 136-145 [facility] Comment on above: Performed By: #### Puneet BILLINGSLEY, BMP #### [address] [address] Urea nitrogen [Mass/Vol] 8 mg/dL Normal 7-18 [facility] Comment on above: Performed By: #### Puneet BILLINGSLEY, BMP #### [address] [address] BUN/Creatinine Ratio 12 ratio Normal 7-27 [facility] Comment on above: Performed By: #### G FR, BMP #### [address] [address] Calcium [Mass/Vol] 9.4 mg/dL Normal 8.4-10.2 [facility] Comment on above: Performed By: #### G FR, BMP #### [address] [address] Chloride [Moles/Vol] 94 mmol/L Low 98-107 [facility] Comment on above: Performed By: #### G FR, BMP #### [address] [address] CO2 [Moles/Vol] 29 mmol/L Normal 22-29 [facility] Comment on above: Performed By: #### G FR, BMP #### [address] [address] Creatinine [Mass/Vol] 0.92 mg/dL Normal 0.55-1.02 [facility] Comment on above: Result Comment: Test ing performed on Siemens Dimension EXL analyzer using a modified kinetic Stephanie technique. Performed By: #### G , BMP #### [address] [address] Electrolyte Balance 3.0 mEq/L Low 4.0-15.0 [facility] Comment on above: Performed By: #### G , BMP #### [place] [phone] Glucose [Mass/Vol] 127 mg/dL High 70-105 [facility] Comment on above: Performed By: #### G , BMP #### [address] [address] Potassium [Moles/Vol] 3.4 mmol/L Low 3.5-5.1 [facility] Comment on above: Performed By: #### G , BMP #### [place] [phone] Sodium [Moles/Vol] 126 mmol/L Low 136-145 [facility] Comment on above: Performed By: #### G , BMP #### [address] [address] Urea nitrogen [Mass/Vol] 11 mg/dL Normal 7-18 [facility] Comment on above: Performed By: #### G , BMP #### [address] [address] CNPNon 07-22-2024 CNPN Normal [facility] HFPon 07-22-2024 Bili Indirect Unable to Calculate Normal [facility] Comment on above: Result Comment: Unab le to calculate this test result accurately. Results used to calculate this test are outside the reportable range. Performed By: #### A SAMUEL, FES, CBC, A1C, FERR, ADIFF #### [place] [address] #### B12, FOL, INSLN #### [place] [address] Albumin Level 3.5 G/dL Normal 3.5-5.0 [facility] Comment on above: Performed By: #### A SAMUEL, FES, CBC, A1C, FERR, ADIFF #### [place] [address] #### B12, FOL, INSLN #### [place] [address] Albumin/Globulin [Mass ratio] 0.8 {ratio} Low 1.1-2.5 [facility] Comment on above: Performed By: #### A SAMUEL, FES, CBC, A1C, FERR, ADIFF #### [place] [address] #### B12, FOL, INSLN #### [place] [address] ALP [Catalytic activity/Vol] 83 U/L Normal 40-135 [facility] Comment on above: Performed By: #### A SAMUEL, FES, CBC, A1C, FERR, ADIFF #### [place] [address] #### B12, FOL, INSLN #### [place] [address] ALT [Catalytic activity/Vol] 21 U/L Normal 14-59 [facility] Comment on above: Performed By: #### A SAMUEL, FES, CBC, A1C, FERR, ADIFF #### [place] [address] #### B12, FOL, INSLN #### [place] [id number] AST [Catalytic activity/Vol] 25 U/L Normal 10-40 [facility] Comment on above: Performed By: #### A SAMUEL, FES, CBC, A1C, FERR, ADIFF #### [place] [address] #### B12, FOL, INSLN #### [address] [address] Bili Direct <0.1 Normal 0.0-0.2 [facility] Comment on above: Result Comment: Use of this assay is not recommended for patients undergoing treatment with eltrombopag due to the potential for falsely elevated results. Performed By: #### A SAMUEL, FES, CBC, A1C, FERR, ADIFF #### [place] [address] #### B12, FOL, INSLN #### [address] [address] Bili Total 0.2 mg/dL Normal 0.2-1.0 [facility] Comment on above: Result Comment: Use of this assay is not recommended for patients undergoing treatment with eltrombopag due to the potential for falsely elevated results. Performed By: #### A SAMUEL, FES, CBC, A1C, FERR, ADIFF #### [place] [address] #### B12, FOL, INSLN #### [place] [address] Globulin 4.5 G/dL High 1.5-3.8 [facility] Comment on above: Performed By: #### A SAMUEL, FES, CBC, A1C, FERR, ADIFF #### [place] [address] #### B12, FOL, INSLN #### [place] [address] Total Protein 8.0 G/dL Normal 6.4-8.2 [facility] Comment on above: Performed By: #### A SAMUEL, FES, CBC, A1C, FERR, ADIFF #### [place] [address] #### B12, FOL, INSLN #### [place] [id number] LACon 07-22-2024 Lactic Acid Lvl 1.2 mmol/L Normal 0.4-2.0 [facility] Comment on above: Performed By: #### G , BMP #### [place] [id number] [place], [place] [address] MRSAPCRon 07-22-2024 MRSA (PCR) Not detected Normal Not Detected [facility] Comment on above: Result Comment: [place] [id number] Performed By: #### G , BMP #### [place] [id number] [place], [place] [address] MRSA PCR Int Normal [facility] Comment on above: Result Comment: MRSA DNA not detected by Real-Time Polymerase Chain Reaction (PCR). A negative result may be due to intermittent colonization. Colonization may vary depending on patient treatment, patient status, or exposure to high-risk environments. As with all PCR based in vitro diagnostic tests, extremely low levels of target below the limit of detection of the assay may be detected, but results may not be reproducible. See Below Performed By: #### G , BMP #### [place] [id number] [place], [place] [address] XR CHEST 2 VIEWSon XR CHEST 2 VIEWS ORIGINAL EXAMINATION: TWO XRAY VIEWS OF THE CHEST 07/21/2024 11:51 pm COMPARISON: Chest x-ray on 03/30/2023 HISTORY: ORDERING SYSTEM PROVIDED HISTORY: Reason for Exam: cough FINDINGS: The heart size is normal. New right suprahilar density has developed. There is no pulmonary edema. No pneumothorax or pleural fluid is present. The skeletal structures are unremarkable. IMPRESSION: New right suprahilar density consistent with pneumonia. Follow-up to ensure complete resolution is recommended. Interpreted by: Ilia Islas MD Preliminary Report By: Ilia Islas MD Electronically signed By Ilia Islas MD Dictated Date: 07/21/2024 11:58:36 PM Prelim Date: 07/22/2024 12:01:04 AM Sign Date: 07/22/2024 12:01:04 AM Ordering Provider: YASMEEN BELLA [facility] .Auto Diffon 07-21-2024 Basophil, Absolute 0.1 10 3/mcL Normal 0.0-0.2 [facility] Comment on above: Performed By: #### G , BMP #### [address] [address] Basophils/100 WBC (Bld) 0.9 % Normal 0.0-2.5 [facility] Comment on above: Performed By: #### G FR, BMP #### [address] [address] Eosinophil, Absolute 0.1 10 3/mcL Normal 0.0-0.7 [facility] Comment on above: Performed By: #### G FR, BMP #### [address] [address] Eosinophils/100 WBC (Bld) 0.4 % Normal 0.0-7.0 [facility] Comment on above: Performed By: #### G FR, BMP #### [address] [address] Lymphocyte, Absolute 1.8 10 3/mcL Normal 0.9-4.3 [facility] Comment on above: Performed By: #### G FR, BMP #### [address] [address] Lymphocytes/100 WBC (Bld) 14.5 % Low 20.0-40.0 [facility] Comment on above: Performed By: #### G FR, BMP #### [address] [address] Monocyte, Absolute 1.1 10 3/mcL Normal 0.1-1.4 [facility] Comment on above: Performed By: #### G FR, BMP #### [address] [address] Monocytes/100 WBC (Bld) 9.0 % Normal 2.0-13.0 [facility] Comment on above: Performed By: #### G FR, BMP #### [address] [address] Neutrophils/100 WBC (Bld) 75.2 % High 50.0-75.0 [facility] Comment on above: Performed By: #### G FR, BMP #### [address] [address] .MDWon 07-21-2024 Monocyte Distribution Width 18.83 Normal 0.00-20.00 [facility] Comment on above: Result Comment: For ED adult patients suspected of sepsis, MDW<=20.0 does not rule out sepsis or risk of sepsis Performed By: #### Puneet BILLINGSLEY, PATRICIA #### [place] [address] .NEUABSon 07-21-2024 Neutrophil, Absolute 9.2 10 3/mcL High 2.3-8.1 [facility] Comment on above: Performed By: #### G , BMP #### [place] [address] CBCon 07-21-2024 Erythrocyte distribution width (RBC) [Ratio] 12.7 % Normal 11.5-15.5 [facility] Comment on above: Performed By: #### Puneet BILLINGSLEY, BMP #### [place] [address] Hematocrit (Bld) [Volume fraction] 36.1 % Normal 34.0-46.0 [facility] Comment on above: Performed By: #### Puneet BILLINGSLEY, BMP #### [place] [address] Hgb 11.9 G/dL Low 12.0-16.0 [facility] Comment on above: Performed By: #### Puneet BILLINGSLEY, BMP #### [place] [id number] MCH (RBC) [Entitic mass] 28.1 pg Normal 27.0-33.0 [facility] Comment on above: Performed By: #### G , BMP #### [place] [id number] MCHC 32.8 G/dL Normal 32.0-36.0 [facility] Comment on above: Performed By: #### G , BMP #### [place] [phone] MCV (RBC) [Entitic vol] 85.6 fL Normal 80.0-99.0 [facility] Comment on above: Performed By: #### G FR, BMP #### [address] [address] Platelet 298 10 3/mcL Normal 150-450 [facility] Comment on above: Performed By: #### G FR, BMP #### [address] [address] Platelet mean volume (Bld) [Entitic vol] 7.7 fL Normal 6.6-10.5 [facility] Comment on above: Performed By: #### G FR, BMP #### [address] [address] RBC 4.22 10 6/mcL Normal 4.10-5.30 [facility] Comment on above: Performed By: #### G FR, BMP #### [address] [address] WBC 12.2 10 3/mcL High 4.5-10.8 [facility] Comment on above: Performed By: #### G FR, BMP #### [address] [address] UAon 07-21-2024 Color (U) Yellow Normal [facility] Comment on above: Performed By: #### A SAMUEL, FES, CBC, A1C, FERR, ADIFF #### [address] [address] #### B12, FOL, INSLN #### [address] [address] Glucose (U) [Mass/Vol] Negative Normal Negative [facility] Comment on above: Performed By: #### A SAMUEL, FES, CBC, A1C, FERR, ADIFF #### [address] [address] #### B12, FOL, INSLN #### [address] [address] Ketones Ql (U) Negative Normal Negative [facility] Comment on above: Performed By: #### A SAMUEL, FES, CBC, A1C, FERR, ADIFF #### [address] [address] #### B12, FOL, INSLN #### [place] [address] UA Appear Clear Normal Clear [facility] Comment on above: Performed By: #### A SAMUEL, FES, CBC, A1C, FERR, ADIFF #### [place] [address] #### B12, FOL, INSLN #### [place] [address] UA Blood Trace Abnormal Negative [facility] Comment on above: Performed By: #### A SAMUEL, FES, CBC, A1C, FERR, ADIFF #### [place] [address] #### B12, FOL, INSLN #### [place] [address] UA Leuk Est Negative Normal Negative [facility] Comment on above: Performed By: #### A SAMUEL, FES, CBC, A1C, FERR, ADIFF #### [place] [address] #### B12, FOL, INSLN #### [place] [address] UA Nitrite Negative Normal Negative [facility] Comment on above: Performed By: #### A SAMUEL, FES, CBC, A1C, FERR, ADIFF #### [place] [address] #### B12, FOL, INSLN #### [place] [address] UA pH 7.0 Normal 5.0 - 8.0 [facility] Comment on above: Performed By: #### A SAMUEL, FES, CBC, A1C, FERR, ADIFF #### [place] [address] #### B12, FOL, INSLN #### [place] [address] UA Protein Negative Normal Negative [facility] Comment on above: Performed By: #### A SAMUEL, FES, CBC, A1C, FERR, ADIFF #### [place] [address] #### B12, FOL, INSLN #### [place] [address] UA Spec Grav 1.020 Normal 1.015-1.025 [facility] Comment on above: Performed By: #### A SAMUEL, FES, CBC, A1C, FERR, ADIFF #### [place] [address] #### B12, FOL, INSLN #### [place] [address] UA Specimen Type Clean Catch Normal [facility] Comment on above: Performed By: #### A SAMUEL, FES, CBC, A1C, FERR, ADIFF #### [place] [address] #### B12, FOL, INSLN #### [place] [address] UA Urobilinogen 1.0 E.U./dL Normal 0.2-1.0 [facility] Comment on above: Performed By: #### A SAMUEL, FES, CBC, A1C, FERR, ADIFF #### [place] [address] #### B12, FOL, INSLN #### [place] [address] Urobilinogen (U) [Mass/Vol] Negative Normal Negative [facility] Comment on above: Performed By: #### A SAMUEL, FES, CBC, A1C, FERR, ADIFF #### [place] [address] #### B12, FOL, INSLN #### [place] [address] CVFLURVon 07-20-2024 FLU A PCR Negative Normal Negative [facility] Comment on above: Performed By: #### A SAMUEL, FES, CBC, A1C, FERR, ADIFF #### [place] [address] #### B12, FOL, INSLN #### [place] [address] FLU B PCR Negative Normal Negative [facility] Comment on above: Performed By: #### A SAMUEL, FES, CBC, A1C, FERR, ADIFF #### [place] [address] #### B12, FOL, INSLN #### [place] [address] RSV PCR Negative Normal Negative [facility] Comment on above: Performed By: #### A SAMUEL, FES, CBC, A1C, FERR, ADIFF #### [place] [address] #### B12, FOL, INSLN #### [place] [address] SARS-CoV-2 (COVID-19) RNA SHO+probe Ql (Unsp spec) Negative Normal Negative [facility] Comment on above: Result Comment: Resu lts from the Xpert Xpress CoV-2/Flu/RSV plus test should be correlated with the clinical history, epidemiological data, and other data available to the clinical evaluating the patient. Performance of the Xpert Xpress CoV-2/Flu/RSV plus test has only been established in nasopharyngeal swab specimen. Erroneous test results might occur from improper specimen collection, failure to follow the recommended sample collection, handling and storage procedures, technical error, or sample mix-up. False negative results may occur if a virus is present at a level below the analytical limit of detection. Viral nucleic acid may persist in vivo, independent of virus viability. Detection of analyte target(s) does not imply that the corresponding virus(es) are infectious or are the causative agents for clinical symptoms. Recent patient exposure to FluMist or other live attenuated influenza vaccines may cause inaccurate positive results. Performed By: #### A SAMUEL, FES, CBC, A1C, FERR, ADIFF #### [place] [address] #### B12, FOL, INSLN #### [place] [address] LABORATORYOrdered By: Shannan Rowe on 07-20-2024 FLUAV RNA SHO+probe Ql (Resp) Negative (07/20/24 9:51 AM) Normal Negative AO Auto Urine SS FLUBV RNA SHO+probe Ql (Resp) Negative (07/20/24 9:51 AM) Normal Negative AO Auto Urine SS RSV RNA SHO+probe Ql (Resp) Negative (07/20/24 9:51 AM) Normal Negative AO Auto Urine SS SARS-CoV-2 (COVID-19) RNA SHO+probe Ql (Resp) Negative 1 (07/20/24 9:51 AM) Normal Negative AO Auto Urine SS Comment on above: Interpretive Data: R esults from the Xpert Xpress CoV-2/Flu/RSV plus test should be correlated with the clinical history, epidemiological data, and other data available to the clinical evaluating the patient. Performance of the Xpert Xpress CoV-2/Flu/RSV plus test has only been established in nasopharyngeal swab specimen. Erroneous test results might occur from improper specimen collection, failure to follow the recommended sample collection, handling and storage procedures, technical error, or sample mix-up. False negative results may occur if a virus is present at a level below the analytical limit of detection. Viral nucleic acid may persist in vivo, independent of virus viability. Detection of analyte target(s) does not imply that the corresponding virus(es) are infectious or are the causative agents for clinical symptoms. Recent patient exposure to FluMist or other live attenuated influenza vaccines may cause inaccurate positive results. Urine Cultureon 07-19-2024 [facility] Mixed Gram Pos Gram Neg Org [place] Count 25,000-50,000 MIXC Mixed contaminants. Submit a new specimen if indicated. Normal [facility] Comment on above: Performed By: #### L 400.0001, L3100.5500, L501.3620, L3100.7000, L500.4050, L100.0100, L3100.7950, L101.9900 #### [facility] [address] [place], [address] CBC W/Diff, Automatedon 06-22 Absolute Lymph 1.97 X10 3/uL Normal 0.83-4.51 [facility] Comment on above: Performed By: #### L 700.6800, L501.2450, L500.4050, L100.0100 ####[facility] [address] [place], [address] Absolute Neut 8.3 X10 3/uL High 2.0-7.7 [facility] Comment on above: Performed By: #### L 700.6800, L501.2450, L500.4050, L100.0100 ####[facility] [address] [place], [address] Basophils/100 WBC (Bld) 0.3 % Normal 0-1 [facility] Comment on above: Performed By: #### L 700.6800, L501.2450, L500.4050, L100.0100 ####[facility] [address] [place], [address] Eosinophils/100 WBC (Bld) 0.7 % Normal 0-5 [facility] Comment on above: Performed By: #### L 700.6800, L501.2450, L500.4050, L100.0100 ####[facility] [address] [place], [address] Erythrocyte distribution width (RBC) [Ratio] 12.7 % Normal 11.6-14.6 [facility] Comment on above: Performed By: #### L 700.6800, L501.2450, L500.4050, L100.0100 ####[facility] [address] [place], [address] Hematocrit (Bld) [Volume fraction] 36.3 % Low 37-47 [facility] Comment on above: Performed By: #### L 700.6800, L501.2450, L500.4050, L100.0100 ####[facility] [address] [place], [address] Hemoglobin (Bld) [Mass/Vol] 11.8 g/dL Low 12.0-15.0 [facility] Comment on above: Performed By: #### L 700.6800, L501.2450, L500.4050, L100.0100 ####[facility] [address] [place], [address] IG% 0.400 Normal 0.0-0.9 [facility] Comment on above: Result Comment: IG% - Immature Granulocytes (promyelocytes, myelocytes and metamyelocytes) > 1% indicates that a LEFT SHIFT is Present. Performed By: #### L 700.6800, L501.2450, L500.4050, L100.0100 ####[facility] [address] [place], [address] Lymphocytes/100 WBC (Bld) 17.3 % Low 19-41 [facility] Comment on above: Performed By: #### L 700.6800, L501.2450, L500.4050, L100.0100 ####[facility] [address] [place], [address] MCH (RBC) [Entitic mass] 28.6 pg Normal 27.0-32.0 [facility] Comment on above: Performed By: #### L 700.6800, L501.2450, L500.4050, L100.0100 ####[facility] [address] [place], [address] MCHC (RBC) [Mass/Vol] 32.5 g/dL Normal 32-36 [facility] Comment on above: Performed By: #### L 700.6800, L501.2450, L500.4050, L100.0100 ####[facility] [address] [place], [address] MCV (RBC) [Entitic vol] 88.1 fL Normal 81-99 [facility] Comment on above: Performed By: #### L 700.6800, L501.2450, L500.4050, L100.0100 ####[facility] [address] [place], [address] Monocytes/100 WBC (Bld) 8.3 % Normal 0-10 [facility] Comment on above: Performed By: #### L 700.6800, L501.2450, L500.4050, L100.0100 ####[facility] [address] [place], [address] Neutrophils/100 WBC (Bld) 73.0 % High 47-70 [facility] Comment on above: Performed By: #### L 700.6800, L501.2450, L500.4050, L100.0100 ####[facility] [address] [place], [address] Nucleated RBC (Bld) [#/Vol] 0 10*3/uL Normal 0-5 [facility] Comment on above: Performed By: #### L 700.6800, L501.2450, L500.4050, L100.0100 ####[facility] [address] [place], [address] Platelet mean volume (Bld) [Entitic vol] 10.6 fL Normal 6.2-12.0 [facility] Comment on above: Performed By: #### L 700.6800, L501.2450, L500.4050, L100.0100 ####[facility] [address] [place], [address] Platelets (Bld) [#/Vol] 309 10*3/uL Normal 150-450 [facility] Comment on above: Performed By: #### L 700.6800, L501.2450, L500.4050, L100.0100 ####[facility] [address] [place], [address] RBC (Bld) [#/Vol] 4.12 10*6/uL Low 4.2-5.4 [facility] Comment on above: Performed By: #### L 700.6800, L501.2450, L500.4050, L100.0100 ####[facility] [address] [place], [address] RDW SD 41.0 fl Normal 35.1-43.9 [facility] Comment on above: Performed By: #### L 700.6800, L501.2450, L500.4050, L100.0100 ####[facility] [address] [place], [address] WBC (Bld) [#/Vol] 11.4 10*3/uL High 4.4-11.0 [facility] Comment on above: Performed By: #### L 700.6800, L501.2450, L500.4050, L100.0100 ####[facility] [address] [place], [address] CTA Chest W/WO Contraston CTA Chest W/WO Contrast [facility] Imaging Services [address] [place] [address] CTA Chest W/WO Contrast MR#: [id number] Acct: [id number] Name: MATT CALABRESE HELIO Rep #: [id number] : 2000 F 24 From: Felton Perez MD PCP: Jack Priest NP-Naresh Status: [facility] ER Study: CTA Chest W/WO Contrast Date of Exam: 07/16/24 Exam# [id number] Ordering Dr: Harvinder Rossi DO PROCEDURE: CTA CHEST W/WO CONTRAST REASON FOR EXAM: Dyspnea, status post bronchoscopy with biopsy 1 week ago TECHNIQUE: Chest CT with intravenous contrast. Coronal and sagittal reformatted images and MIP images CONTRAST: 94 cc Isovue 370 COMPARISON: Chest radiograph 03/18/2023 FINDINGS: Hardware: None. Lymph nodes: Enlarged conglomeration of right paratracheal and pretracheal lymph nodes measuring a proximally 3.1 x 2.6 by 3.7 cm axial 159 and coronal 148. Enlarged tracheobronchial lymph node 1.6 cm axial 138. Mildly prominent bilateral hilar nodes. Enlarged subcarinal lymph node 1.9 x 1.7 cm axial 121. Heart and Vasculature: Normal heart size. No pericardial effusion. Thoracic aorta and pulmonary arteries are unremarkable. No evidence of filling defect to suggest pulmonary embolism. Ascending thoracic aorta 2.4 cm, descending thoracic aorta 1.9 cm. Lungs and Airways: Bilateral right more than left noncalcified pulmonary nodules with a lower zone predominance. Approximately 10 on the right and less than 5 on the left. Largest on the right within the right middle lobe subpleural anterior medial 1.2 cm axial 105 and largest on the left within the left lower lobe subpleural 1 cm axial 84. Pleura: No pleural effusion. No pneumothorax. Upper Abdomen: Visualized portions of the upper abdominal viscera are unremarkable. Common hepatic artery appears to arise directly off the abdominal aorta, anatomic variant. Status post cholecystectomy. Bones: Bone windows are unremarkable. CT/CTA Chest W/WO Contrast IMPRESSION: No evidence of filling defect to suggest pulmonary embolism. A combination of right greater than left bilateral noncalcified pulmonary nodules and mediastinal/hilar lymph node enlargement suggests possibility of granulomatous disease, infectious, sarcoidosis among others, clinically correlate. Given the patient's age less likely to represent metastatic disease. The combination of lymph node enlargement and pulmonary nodules also less likely lymphoma although not excluded at this time. One or more dose reduction techniques were used (e.g., Automated exposure control, adjustment of the mA and/or kV according to patient size, use of iterative reconstruction technique). Reading Location: [id number] CC: ORIN Priest; Dr. Harvinder Rossi DO Ingot Header: Signed Normal [facility] Chest PA and Lateralon 07-16 Chest PA and Lateral [facility] Imaging Services [address] [place] [address] Chest PA and Lateral MR#: [id number] Acct: [id number] Name: MATT CALABRESE HELIO Rep #: [id number] : 2000 F 24 From: Young Tinajero MD PCP: ORIN Beatty Status: REG ER Study: Chest PA and Lateral Date of Exam: 07/16/24 Exam# [id number] Ordering Dr: Harvinder Rossi DO PROCEDURE: CHEST PA AND LATERAL REASON FOR EXAM: Pain TECHNIQUE: Frontal and lateral views of the chest. COMPARISON: None. FINDINGS: Heart size is mildly enlarged. The mediastinal contour is unremarkable. The lungs are clear. The bones are unremarkable. RAD/Chest PA and Lateral IMPRESSION: Mild cardiomegaly with no acute pulmonary disease. Reading Location: [facility] CC: [employer] ASSISTANT-C Jack Priest; Dr. Harvinder Rossi DO Ingot Header: Signed Normal [facility] Comprehensive Metabolic Prof ilon 07-16-2024 Albumin [Mass/Vol] 4.3 g/dL Normal 3.5-5.0 [facility] Comment on above: Performed By: #### L 700.6800, L501.2450, L500.4050, L100.0100 ####[facility] [address] [place], [address] Albumin/Globulin [Mass ratio] 1.2 {ratio} Normal 0.9-2.4 [facility] Comment on above: Performed By: #### L 700.6800, L501.2450, L500.4050, L100.0100 ####[facility] [address] [place], [address] ALK PHOS 98 U/L Normal 35-104 [facility] Comment on above: Performed By: #### L 700.6800, L501.2450, L500.4050, L100.0100 ####[facility] [address] [place], [address] ALT [Catalytic activity/Vol] 16 U/L Normal <=34 [facility] Comment on above: Performed By: #### L 700.6800, L501.2450, L500.4050, L100.0100 ####[facility] [address] [place], [address] Anion gap [Moles/Vol] 11 mmol/L Normal 5-15 [facility] Comment on above: Performed By: #### L 700.6800, L501.2450, L500.4050, L100.0100 ####[facility] [address] [place], [address] AST [Catalytic activity/Vol] 21 U/L Normal <=31 [facility] Comment on above: Performed By: #### L 700.6800, L501.2450, L500.4050, L100.0100 ####[facility] [address] [place], [address] Bilirubin [Mass/Vol] 0.18 mg/dL Normal 0.00-1.30 [facility] Comment on above: Performed By: #### L 700.6800, L501.2450, L500.4050, L100.0100 ####[facility] [address] [place], [address] BUN/CRE 19.7 RATIO Normal 10-20 [facility] Comment on above: Performed By: #### L 700.6800, L501.2450, L500.4050, L100.0100 ####[facility] [address] [place], [address] Calcium [Mass/Vol] 9.6 mg/dL Normal 7.6-11.0 [facility] Comment on above: Performed By: #### L 700.6800, L501.2450, L500.4050, L100.0100 ####[facility] [address] [place], [address] Chloride [Moles/Vol] 101 mmol/L Normal 96-108 [facility] Comment on above: Performed By: #### L 700.6800, L501.2450, L500.4050, L100.0100 ####[facility] [address] [place], [address] CO2 [Moles/Vol] 25.8 mmol/L Normal 22.0-29.0 [facility] Comment on above: Performed By: #### L 700.6800, L501.2450, L500.4050, L100.0100 ####[facility] [address] [place], [address] Creatinine [Mass/Vol] 0.7 mg/dL Normal 0.6-1.0 [facility] Comment on above: Performed By: #### L 700.6800, L501.2450, L500.4050, L100.0100 ####[facility] [address] [place], [address] ECRCL 140.26 ml/min Normal [facility] Comment on above: Performed By: #### L 700.6800, L501.2450, L500.4050, L100.0100 ####[facility] [address] [place], [address] GFR/1.73 sq M.predicted among non-blacks MDRD (S/P/Bld) [Vol rate/Area] 124 mL/min/{1.73_m2} Normal >60 [facility] Comment on above: Result Comment: mL/m in/1.73m2 CKD-EPI Creatinine Equation (2020) Performed By: #### L 700.6800, L501.2450, L500.4050, L100.0100 ####[facility] [address] [place], [address] Globulin (S) [Mass/Vol] 3.6 g/dL Normal 2.2-4.2 [facility] Comment on above: Performed By: #### L 700.6800, L501.2450, L500.4050, L100.0100 ####[facility] [address] [place], [address] Glucose [Mass/Vol] 107 mg/dL High 70-99 [facility] Comment on above: Performed By: #### L 700.6800, L501.2450, L500.4050, L100.0100 ####[facility] [address] [place], [address] Potassium [Moles/Vol] 4.0 mmol/L Normal 3.3-5.1 [facility] Comment on above: Performed By: #### L 700.6800, L501.2450, L500.4050, L100.0100 ####[facility] [address] [place], [address] Sodium [Moles/Vol] 138 mmol/L Normal 133-145 [facility] Comment on above: Performed By: #### L 700.6800, L501.2450, L500.4050, L100.0100 ####[facility] [address] [place], [address] T PROT 7.9 g/dL Normal 5.9-8.4 [facility] Comment on above: Performed By: #### L 700.6800, L501.2450, L500.4050, L100.0100 ####[facility] [address] [place], [address] Urea nitrogen [Mass/Vol] 13 mg/dL Normal 4-19 [facility] Comment on above: Performed By: #### L 700.6800, L501.2450, L500.4050, L100.0100 ####[facility] [address] [place], [address] Emergency Department Summary on 07-16-2024 Emergency Department Summary [facility] Medical Records Department [address] [place] [address] Emergency Department Summary 07/16/24 MR#: [id number] Acct: [id number] Name: MATT CALABRESE Rep #: [id number] : 2000 24 From: Harvinder Diaz PCP: ORIN Beatty Status:DEP ER Location: ED HPI History of Present Illness Chief Complaint: General Illness Informant: patient Narrative Narrative: Presents by private vehicle increasing pain right lung radiating to her back. She is status post bronchoscopy a week ago with biopsies at [facility]. 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 She reports increasing lesions therefore repeat bronchoscopy performed. She has been having pain since worse with deep breaths. Today having fevers and chills. No vomiting or diarrhea. Denies any immunocompromise history. She reports also recent history of kidney injury with hematuria being referred to specialist. No history of PE or DVT. Denies any hemoptysis. [facility] Medical History Ankle pain, left Right wrist sprain Left knee pain Strain of Achilles tendon Contact with or exposure to other viral diseases URI (upper respiratory infection) Sprain of left foot Left ankle sprain Contusion of left knee Anxiety Home Medications ???Medication ???Instructions ???Recorded ???Last Taken ???Type ergocalciferol (vitamin D2) 1,250 1,250 mcg PO QWEEK 06/09/24 Unkno wn History mcg (50,000 unit) capsule ferrous sulfate 325 mg (65 mg 325 mg PO QDAY 06/09/24 Unknown Hi story iron) tablet flax seed oil PO 06/09/24 Unknown History hydroxyzine HCl 25 mg tablet 25 mg PO .QID PRN anxiety 06/09/24 Unknown History magnesium hydroxide 400 mg (170 mg 400 mg PO QD-BID 06/09/24 Unknow n History magnesium) chewable tablet naltrexone 50 mg tablet 50 mg PO QDAY 06/09/24 Unknown His tory ondansetron HCl 4 mg tablet 4 mg PO Q8H PRN 06/09/24 Unknown H istory pantoprazole 40 mg tablet,delayed 40 mg PO QDAY 06/09/24 Unknown Hi story release prazosin 2 mg capsule 2 mg PO QHS 06/09/24 Unknown Histo ry sumatriptan succinate 25 mg tablet See Rx Instructions PO .COMPLEX 06/09/24 Unknown History wheat dextrin 3 gram/4 gram oral 1.5 g PO BID #500 grams 06/09/24 U nknown Rx powder (Benefiber Sugar Free (dextrin)) hydrocortisone 2.5 % topical cream 1 applic LA QD-BID PRN rectal pa in 07/10/24 Unknown Rx with perineal applicator and bleeding #30 grams (Anusol-HC) quetiapine 100 mg tablet (Seroquel) 150 mg PO QHS 07/10/24 Unknown History Allergy/AdvReac Type Severity Reaction Status Date / Time amoxicillin Allergy Upset Verified 07/16/24 19:45 Stomach erythromycin base Allergy Upset Verified 07/16/24 19:45 Stomach Penicillins (PCN) Allergy Upset Verified 07/16/24 19:45 Stomach azithromycin (From Zithromax) AdvReac Intermediate Hives Verified 07/16/24 19:45 metronidazole (From Flagyl) AdvReac Intermediate Rash Verified 07/16/24 19:45 sulfamethoxazole (From AdvReac Intermediate Rash Verified 07/16/24 19:45 Bactrim) trimethoprim (From Bactrim) AdvReac Intermediate Rash Verified 07/16/24 19:45 trazodone AdvReac Unknown suicidal Verified 07/16/24 19:45 ideation Family History Mother Alcohol abuse Breast cancer Hypertension Muscle weakness Substance abuse Father Alcohol abuse Hypertension Grandmother Breast cancer Cancer Sister Hypertension Surgical History Hx of breast reduction, elective Hx of cholecystectomy Social History sexually active: No Smoking Status: Never smoker alcohol intake: never substance use type: does not use ROS ROS ED Constitutional Constitutional ED: Reports chills and fever(s); Denies sweats ENT ENT ED: Denies sore throat Cardiovascular Cardiovascular: Reports chest pain; Denies leg edema, palpitations or racing heartbeat Respiratory/Chest Respiratory/Chest: Reports dyspnea; Denies cough or dyspnea on exertion Gastrointestinal Gastrointestinal: Denies abdominal pain, diarrhea, nausea or vomiting Genitourinary Genitourinary ED: Denies dysuria, hematuria or urinary frequency Musculoskeletal Musculoskeletal: Reports back pain; Denies extremity pain or neck pain Integumentary Denies rash or wounds Neurologic Neurologic: Denies headache(s), paresthesias or weakness EXAM Physical Exam Const Vital Signs: 07/16/24 19:45 07/16/24 19:46 07/16/24 23:00 Temperature 98.8 F 98.8 F Temperature Source Oral Oral Pulse Rate 123 H 123 H 113 H Respiratory Rate (more content not included)... Normal [facility] Lipaseon 07-16-2024 Lipase [Catalytic activity/Vol] 31 U/L Normal 13-75 [facility] Comment on above: Result Comment: Jean Pierre davalos note: LIPASE revised reference range effective 22. New Lipase methodology. Expected to produce lower values than the previous assay method. NEW Reference Range: 13 - 75 U/L Performed By: #### L 700.6800, L501.2450, L500.4050, L100.0100 ####[facility] [address] [place], [address] M100.678on 07-16-2024 M100.678 SARS-CoV-2 (COVID 19 ) Negative INFLUENZA A Negative INFLUENZA B Negative RSV PCR Negative Normal [facility] Comment on above: Performed By: #### L 400.0001, L3100.5500, L501.3620, L3100.7000, L500.4050, L100.0100, L3100.7950, L101.9900 #### [facility] [address] [place], [address] ,Serum,hCG Quali.on 07-16-2024 HCG, SERUM QUAL Negative Normal [facility] Comment on above: Performed By: #### L 700.6800, L501.2450, L500.4050, L100.0100 ####[facility] [address] [place], [address] Urinalysis, Completeon 07-16 BACTERIA 1+ /hpf Normal None Seen [facility] Comment on above: Order Comment: CLEAN CATCH Performed By: #### L 400.0001, L3100.5500, L501.3620, L3100.7000, L500.4050, L100.0100, L3100.7950, L101.9900 #### [facility] [address] [place], [address] EPI,SQUAMOUS 5-10 SEEN Normal 5-10 [facility] Comment on above: Order Comment: CLEAN CATCH Performed By: #### L 400.0001, L3100.5500, L501.3620, L3100.7000, L500.4050, L100.0100, L3100.7950, L101.9900 #### [facility] [address] [place], [address] Mucus Ql (Urine sed) 1+ /hpf Normal [facility] Comment on above: Order Comment: CLEAN CATCH Performed By: #### L 400.0001, L3100.5500, L501.3620, L3100.7000, L500.4050, L100.0100, L3100.7950, L101.9900 #### [facility] [address] [place], [address] RBC 0-5 SEEN Normal 0-5 [facility] Comment on above: Order Comment: CLEAN CATCH Performed By: #### L 400.0001, L3100.5500, L501.3620, L3100.7000, L500.4050, L100.0100, L3100.7950, L101.9900 #### [facility] [address] [place], [address] WBC 5-10 SEEN Normal 0-5 [facility] Comment on above: Order Comment: CLEAN CATCH Performed By: #### L 400.0001, L3100.5500, L501.3620, L3100.7000, L500.4050, L100.0100, L3100.7950, L101.9900 #### [facility] [address] [place], [place], [id number] AFP, Tumor Markeron 07-15-19 25 AFP TUMOR JAYLON < 1.8 Normal 0.0-4.7 [facility] Comment on above: Order Comment: SERUM RFN Result Comment: [employer] [facility] Electrochemiluminescence Immunoassay (ECLIA) Values obtained with different assay methods or kits cannot be used interchangeably. Results cannot be interpreted as absolute evidence of the presence or absence of malignant disease. This test is not interpretable in females. Performed By: #### L 803.2200, L3400.0700, L503.6550, L3410.2920, L300.3900, L3300.1200, L800.1280, L503.6030, L3100.5450, L3200.1400, L3300.0700 ####[facility] [address] [place], [place], [id number] JESSIE w/ Reflex Mult Confirmon 07-15-2024 ANTI-DNA (DS)AB TNP Normal [facility] Comment on above: Performed By: #### L 803.2200, L3400.0700, L503.6550, L3410.2920, L300.3900, L3300.1200, L800.1280, L503.6030, L3100.5450, L3200.1400, L3300.0700 ####[facility] [address] [place], [place], [id number] ANTISCLERODERM TNP Normal [facility] Comment on above: Performed By: #### L 803.2200, L3400.0700, L503.6550, L3410.2920, L300.3900, L3300.1200, L800.1280, L503.6030, L3100.5450, L3200.1400, L3300.0700 ####[facility] [address] [place], [address] ANCAon 02-25-2025 Atypical pANCA <1:20 Normal Neg:<1:20 [facility] Comment on above: Order Comment: SERUM RF Result Comment: The atypical pANCA pattern has been observed in a significant percentage of patients with ulcerative colitis, primary sclerosing cholangitis and autoimmune hepatitis. Performed By: #### L 400.0001, L3100.5500, L501.3620, L3100.7000, L500.4050, L100.0100, L3100.7950, L101.9900 #### [facility] [address] [place], [place], [id number] Cytoplasmic Ab <1:20 Normal Neg:<1:20 [facility] Comment on above: Order Comment: SERUM RF Performed By: #### L 400.0001, L3100.5500, L501.3620, L3100.7000, L500.4050, L100.0100, L3100.7950, L101.9900 #### [facility] [address] [place], [address] (108) Perinuclear Ab. <1:20 Normal Neg:<1:20 [facility] Comment on above: Order Comment: SERUM RF Result Comment: The presence of positive fluorescence exhibiting P-ANCA or C-ANCA patterns alone is not specific for the diagnosis of Jaciel's Granulomatosis (WG) or microscopic polyangiitis. Decisions about treatment should not be based solely on ANCA IFA results. The International ANCA Group Consensus recommends follow up testing of positive sera with both LA- 3 and MPO-ANCA enzyme immunoassays. As many as 5% serum samples are positive only by EIA. Ref. AM J Clin Pathol 1999;111:507-513. Performed By: #### L 400.0001, L3100.5500, L501.3620, L3100.7000, L500.4050, L100.0100, L3100.7950, L101.9900 #### [facility] [address] [place], [address] Anti-Smooth Muscle ABSon ANTISMOOTH MUSC 4 Units Normal 0-19 [facility] Comment on above: Order Comment: SERUM RF Result Comment: Nega tive 0 - 19 Weak positive 20 - 30 Moderate to strong positive >30 Actin Antibodies are found in 52-85% of patients with autoimmune hepatitis or chronic active hepatitis and in 22% of patients with primary biliary cirrhosis. Performed By: #### L 803.2200, L3400.0700, L503.6550, L3410.2920, L300.3900, L3300.1200, L800.1280, L503.6030, L3100.5450, L3200.1400, L3300.0700 ####[facility] [address] [place], [address] Ceruloplasminon 07-15-2024 CERULOPLASMIN 31.3 mg/dL Normal 19.0-39.0 [facility] Comment on above: Order Comment: SERUM RF Performed By: #### L 400.0001, L3100.5500, L501.3620, L3100.7000, L500.4050, L100.0100, L3100.7950, L101.9900 #### [facility] [address] [place], [address] Immunoglobulin Aon 5 IMMUNOGLOB A QN 176 mg/dL Normal 87-352 [facility] Comment on above: Order Comment: SERUM RFN Result Comment: Perf ormed at: - [facility] [id number] [employer] D[employer] Operator: Julian Wang PhD, Phone: [phone] Performed By: #### L 803.2200, L3400.0700, L503.6550, L3410.2920, L300.3900, L3300.1200, L800.1280, L503.6030, L3100.5450, L3200.1400, L3300.0700 ####[facility] [address] [place], [address] t-Transglutaminase IgAon tTG IGA <2 Normal 0-3 [facility] Comment on above: Order Comment: SERUM RF Result Comment: Nega tive 0 - 3 Weak Positive 4 - 10 Positive >10 Tissue Transglutaminase (tTG) has been identified as the endomysial antigen. Studies have demonstr- ated that endomysial IgA antibodies have over 99% specificity for gluten sensitive enteropathy. Performed By: #### L 400.0001, L3100.5500, L501.3620, L3100.7000, L500.4050, L100.0100, L3100.7950, L101.9900 #### [facility] [address] [place], [address] Anti-Mitochondrial ABon - ANTIMITOCHON AB <20.0 Normal 0.0-20.0 [facility] Comment on above: Result Comment: Nega tive 0.0 - 20.0 Equivocal 20.1 - 24.9 Positive >24.9 Mitochondrial (M2) Antibodies are found in 90-96% of patients with primary biliary cirrhosis. Performed By: #### L 803.2200, L3400.0700, L503.6550, L3410.2920, L300.3900, L3300.1200, L800.1280, L503.6030, L3100.5450, L3200.1400, L3300.0700 ####[facility] [address] [place], [address] Ferritinon 07-10-2024 Ferritin [Mass/Vol] 24 ng/mL Normal 8-252 [facility] Comment on above: Performed By: #### L 803.2200, L3400.0700, L503.6550, L3410.2920, L300.3900, L3300.1200, L800.1280, L503.6030, L3100.5450, L3200.1400, L3300.0700 ####[facility] [address] [place], [place], [phone] Gastroenterology Visit Repor ton 07-10-2024 Gastroenterology Visit Report [facility] [address] 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 Is patient in pain?: No Allergies amoxicillin Allergy (Verified 07/10/24 14:33) Upset Stomach erythromycin base Allergy (Verified 07/10/24 14:33) Upset Stomach Penicillins (PCN) Allergy (Verified 07/10/24 14:33) Upset Stomach azithromycin (From Zithromax) Adverse Reaction (Intermediate, Verified 07/10/24 14:33) Hives metronidazole (From Flagyl) Adverse Reaction (Intermediate, Verified 07/10/24 14:33) Rash sulfamethoxazole (From Bactrim) Adverse Reaction (Intermediate, Verified 07/10/24 14:33) Rash trimethoprim (From Bactrim) Adverse Reaction (Intermediate, Verified 07/10/24 14:33) Rash trazodone Adverse Reaction (Unknown, Verified 07/10/24 14:33) suicidal ideation Medications ???Medication ???Instructions ???Recorded ???Confirmed ???Type ergocalciferol (vitamin D2) 1,250 1,250 mcg PO QWEEK 06/09/2407/10 History mcg (50,000 unit) capsule ferrous sulfate 325 mg (65 mg 325 mg PO QDAY 06/09/24 07/10/24 H istory iron) tablet flax seed oil PO 06/09/24 07/10/24 History hydroxyzine HCl 25 mg tablet 25 mg PO .QID PRN anxiety 06/09/24 07/10/24 History magnesium hydroxide 400 mg (170 mg 400 mg PO QD-BID 06/09/24 History magnesium) chewable tablet naltrexone 50 mg tablet 50 mg PO QDAY 06/09/24 07/10/24 Hi story ondansetron HCl 4 mg tablet 4 mg PO Q8H PRN 06/09/24 07/10/24 History pantoprazole 40 mg tablet,delayed 40 mg PO QDAY 06/09/24 07/10/24 H istory release prazosin 2 mg capsule 2 mg PO QHS 06/09/24 07/10/24 Hist ory sumatriptan succinate 25 mg tablet See Rx Instructions PO .COMPLEX 06/09/24 07/10/24 History wheat dextrin 3 gram/4 gram oral 1.5 g PO BID #500 grams 06/09/24 0 07/10/24 Rx powder (Benefiber Sugar Free (dextrin)) hydrocortisone 2.5 % topical cream 1 applic LA QD-BID PRN rectal pa in 07/10/24 07/10/24 Rx with perineal applicator and bleeding #30 grams (Anusol-HC) quetiapine 100 mg tablet (Seroquel) 150 mg PO QHS 07/10/24 07/10/24 History PFSH Medical History Ankle pain, left Right wrist sprain Left knee pain Strain of Achilles tendon Contact with or exposure to other viral diseases URI (upper respiratory infection) Sprain of left foot Left ankle sprain Contusion of left knee Anxiety Surgical History Hx of breast reduction, elective Hx of cholecystectomy Family History Mother Alcohol abuse Breast cancer Hypertension Muscle weakness Substance abuse Father Alcohol abuse Hypertension Grandmother Breast cancer Cancer Sister Hypertension Social History sexually active: No Smoking Status: Never smoker alcohol intake: never substance use type: does not use HPI HPI Chief Complaint: follow-up Details: MATT CALABRESE, is a 24 F who presents to the office today for OV 06/09/2024 23y/o female presents for consultation with complaints of nausea and vomiting. She is 6 weeks s/p hysterectomy and c/o constipation. She reports a long history of nausea with intermittent emesis her entire life, worse over the past year. She reports taking Ondansetron PRN. Emesis episodes are typically within 30 minutes of eating. She denies any improvement with pantoprazole 40mg daily x2 weeks. Reports failing multiple other PPI in the past. GES was unremarkable November 2023. EGD August 2023 revealed erosive gastropathy with negative esophageal, gastric and duodenal biopsies. CT completed April 2024 revealed possible fatty liver. She will complete an ABD US, FibroScan, labs and continue pantoprazole 40mg daily. She reports a long history of diarrhea. However, since hysterectomy 6 weeks ago she has been experiencing constipation with small, hard stools. I have recommended a high fiber diet with the addition of Benefiber every morning. I have also encouraged she use Miralax at HS and taper to symptoms. She will follow-up in one month. Patient Instructions: Benefiber 2tsp once a day in 8 ounces of water - adding a daily fiber supplement may take up to 3 weeks before you notice any benefit Miralax 17g mixed in 8 ounces of water every evening Discussed benefits of 2 Kiwi fruit, 2 prunes, 2 figs or 2 dates once daily to assist (more content not included)... Normal [facility] Iron+Iron Binding Capacityon 07-10-2024 Iron [Mass/Vol] 51 ug/dL Normal 50-170 [facility] Comment on above: Performed By: #### L 803.2200, L3400.0700, L503.6550, L3410.2920, L300.3900, L3300.1200, L800.1280, L503.6030, L3100.5450, L3200.1400, L3300.0700 ####[facility] [address] [place], [place], [phone] IRON SATURATION 13.6 Low 15.0-55.0 [facility] Comment on above: Performed By: #### L 803.2200, L3400.0700, L503.6550, L3410.2920, L300.3900, L3300.1200, L800.1280, L503.6030, L3100.5450, L3200.1400, L3300.0700 ####[facility] [address] [place], [address] TIBC 375 ug/dL Normal 250-450 [facility] Comment on above: Performed By: #### L 803.2200, L3400.0700, L503.6550, L3410.2920, L300.3900, L3300.1200, L800.1280, L503.6030, L3100.5450, L3200.1400, L3300.0700 ####[facility] [address] [place], [address] Prothrombin Time w/INRon INR Coag (PPP) [Relative time] 1.0 {INR} Normal [facility] Comment on above: Performed By: #### L 803.2200, L3400.0700, L503.6550, L3410.2920, L300.3900, L3300.1200, L800.1280, L503.6030, L3100.5450, L3200.1400, L3300.0700 ####[facility] [address] [place], [address] PT Coag (PPP) [Time] 13.1 s Normal 11.7-14.9 [facility] Comment on above: Performed By: #### L 803.2200, L3400.0700, L503.6550, L3410.2920, L300.3900, L3300.1200, L800.1280, L503.6030, L3100.5450, L3200.1400, L3300.0700 ####[facility] [address] [place], [place], [id number] ANES POSTPROC EVALon 025 ANES POSTPROC EVAL Normal [facility] ANES PRE-OPon 07-09-2024 ANES PRE-OP Normal [facility] ASPERGILLUS GALACTOMANNAN BA Oscar 07-09-2024 ASPER. AG BAL,QUAL Negative Normal Negative [facility] Comment on above: Order Comment: Speci men Type: SPECIMEN OBTAINED BY LAVAGEOrdering Facility: [facility] Address: [address] [place] [address] Result Comment: Aspe rgillus Galactomannan antigen assay is used as an aid in diagnosis of invasive aspergillosis in immunocompromised individuals especially in post-stem cell transplant, hematological malignancies on chemotherapy, and HIV-positive patients with very low CD4 T-cell counts. The test may also be used in disease prognostication and for monitoring response to anti-fungal therapy. False positive and false negative results are not uncommon. Clinical and radiological correlation is required. Performed By: #### A SGALB ####[facility] [id number] [place] [address] [place] ASPERGILLUS GALACTOMANNAN 0.05 Index Value Normal <=0.49 [facility] Comment on above: Order Comment: Speci men Type: SPECIMEN OBTAINED BY LAVAGEOrdering Facility: [facility] Address: [address] [place] [address] Performed By: #### A SGALB ####[facility] [id number] [place] [address] [place] Aldolaseon 07-09-2024 ALDOLASE 4.9 U/L Normal 3.3-10.3 [facility] Comment on above: Result Comment: Perf ormed at: - [facility] [address] [id number] [employer] D[employer] Operator: Julian Wang PhD, Phone: [phone] Performed By: #### L 400.0001, L3100.5500, L501.3620, L3100.7000, L500.4050, L100.0100, L3100.7950, L101.9900 ####[facility] [address] [place], [address] Anti-dsDNA Abon 07-09-2024 ANTI-DNA (DS)AB <1 Normal 0-9 [facility] Comment on above: Result Comment: Nega tive <5 Equivocal 5 - 9 Positive >9 Performed By: #### L 400.0001, L3100.5500, L501.3620, L3100.7000, L500.4050, L100.0100, L3100.7950, L101.9900 #### [facility] [address] [place], [place], [address] Antinuclear Antibody, IFAon 07-09-2024 JESSIE, IFA Negative Normal . [facility] Comment on above: Result Comment: Nega tive <1:80 Borderline 1:80 Positive >1:80 ICAP nomenclature: AC-0 For more information about Hep-2 cell patterns use ANApatterns.org, the official website for the International Consensus on Antinuclear Antibody (JESSIE) Patterns (ICAP). Performed at: [facility] [address] [id number] [employer] D[employer] Operator: Julian Wang PhD, Phone: [phone] Performed By: #### L 400.0001, L3100.5500, L501.3620, L3100.7000, L500.4050, L100.0100, L3100.7950, L101.9900 #### [facility] [address] [place], [place], [address] BAL MANUAL DIFFon 07-09-2024 DIF TTL, BA LAVAGE 100 cells counted Normal [facility] Comment on above: Order Comment: Speci men Type: SPECIMEN OBTAINED BY LAVAGEOrdering Facility: [facility] Address: [address] [place] [address] Performed By: #### Merced MANRIQUE [id number] ####[facility] [id number] [place] [address] [place] LYMPH%, BA LAVAGE 3 % Normal [facility] Comment on above: Order Comment: Speci men Type: SPECIMEN OBTAINED BY LAVAGEOrdering Facility: [facility] Address: [address] [place] [address] Performed By: #### Merced MANRIQUE [id number] ####[facility] [id number] [place] [address] [place] MACRO%, BA LAVAGE 94 % Normal [facility] Comment on above: Order Comment: Speci men Type: SPECIMEN OBTAINED BY LAVAGEOrdering Facility: [facility] Address: [address] [place] [address] Performed By: #### Merced MANRIQUE [id number] ####[facility] [id number] [place] [address] [place] NEUT%, BA LAVAGE 3 % Normal [facility] Comment on above: Order Comment: Speci men Type: SPECIMEN OBTAINED BY LAVAGEOrdering Facility: [facility] Address: [address] [place] [address] Performed By: #### Merced MANRIQUE [id number] ####[facility] [id number] [place] [address] [place] BAL ROUTINE BFLon 07-09-2024 BAL COMMENT Normal [facility] Comment on above: Order Comment: Speci men Type: SPECIMEN OBTAINED BY LAVAGEOrdering Facility: [facility] Address: [address] [place] [address] Result Comment: Coun t may be inaccurate due toDisintegration Performed By: #### Merced MANRIQUE [id number] ####[facility] [id number] [place] [address] [place] Clarity (Unsp spec) Clear Normal Clear [facility] Comment on above: Order Comment: Speci men Type: SPECIMEN OBTAINED BY LAVAGEOrdering Facility: [facility] Address: [address] [place] [address] Performed By: #### Merced MANRIQUE [id number] ####[facility]CLIA [id number] [place] [address] [place] Color (Bronch spec) Colorless Normal Colorless [facility] Comment on above: Order Comment: Speci men Type: SPECIMEN OBTAINED BY LAVAGEOrdering Facility: [facility] Address: [address] [place] [address] Performed By: #### Merced MANRIQUE [id number] ####[facility]CLIA [id number] [place] [address] [place] RBC LM.HPF (BAL) [#/Area] 10 /uL Normal Reference range not established. [facility] Comment on above: Order Comment: Speci men Type: SPECIMEN OBTAINED BY LAVAGEOrdering Facility: [facility] Address: [address] [place] [address] Performed By: #### Merced MANRIQUE [id number] ####[facility] [id number] [place] [address] [place] WBC Manual cnt (Bronch spec) [#/Vol] 129 /uL Normal Reference range not established. [facility] Comment on above: Order Comment: Speci men Type: SPECIMEN OBTAINED BY LAVAGEOrdering Facility: [facility] Address: [address] [place] [address] Performed By: #### Merced MANRIQUE [id number] ####[facility]CLIA [id number] [place] [address] [place] Bacteria BAL Aerobe Culton 0 07-09-2024 Bacteria identified Aer cx Nom (BAL) ORGANISM ID: 1 100 CFU/mL normal respiratory sandra GRAM STAIN: No organisms seen No Polymorphonuclear Leukocytes Rare Ciliated Epithelial cells Gram stain performed on cytospun specimen. Abnormal [facility] Comment on above: Performed By: #### 4 3441-5 ####[facility]IA [id number] [place] [address] [place]#### 580-1, 40378-7 ####[facility]CLIA [id number] [place] [address] [place] Bacteria Spec Anaerobe Culto n 07-09-2024 Bacteria identified Anaer cx Nom (Unsp spec) Negative Normal [facility] Comment on above: Performed By: #### 6 35-3, 31251-4 ####[facility] LABCLIA [id number] [place] [id number] [place]#### 09197-4 ####[facility] LABIA [id number] [place] [address] [place] Bacteria Tiss Culton 025 Bacteria identified Cx Nom (Tiss) ORGANISM ID: 1 Rare normal respiratory sandra GRAM STAIN: No organisms seen Rare Polymorphonuclear leukocytes Normal [facility] Comment on above: Performed By: #### 6 35-3, 59873-8 ####[facility] LABCLIA [id number] [place] [address] [place]#### 38109-5 ####[facility] LABIA [id number] [place] [address] [place] Bronchoscopyon 07-09-2024 Bronchoscopy Normal [facility] CD3 Cells NFr Bronchon 07-09 CD3 cells/100 cells (Bronch spec) 86 % Normal [facility] Comment on above: Order Comment: Speci men Type: SPECIMEN OBTAINED BY LAVAGEOrdering Facility: [facility] Address: [address] [place] [address] Performed By: #### 3 2752-8 ####[facility] LABIA [id number] [place] [address] [place] CD3 cells/100 cells (Bronch spec)on 07-09-2024 CD3+CD4+ (T4 helper) cells/100 cells (Bronch spec) 48 % Normal [facility] Comment on above: Order Comment: Speci men Type: SPECIMEN OBTAINED BY LAVAGEOrdering Facility: [facility] Address: [address] [place] [address] Performed By: #### 3 2752-8 ####[facility] LABIA [id number] [place] [address] [place] CD3+CD4+ (T4 helper) cells/CD3+CD8+ (T8 suppressor cells) cells (Bronch spec) [# ratio] 1.37 Normal [facility] Comment on above: Order Comment: Speci men Type: SPECIMEN OBTAINED BY LAVAGEOrdering Facility: [facility] Address: [address] [place] [address] Performed By: #### 3 2752-8 ####[facility] LABIA [id number] [place] [address] [place] CD3+CD8+ (T8 suppressor cells) cells/100 cells (Bronch spec) 35 % Normal [facility] Comment on above: Order Comment: Speci men Type: SPECIMEN OBTAINED BY LAVAGEOrdering Facility: [facility] Address: [address] [place] [address] Performed By: #### 3 2752-8 ####[facility] LABIA [id number] [address] [place] CNPNon [facility]09[facility]20[facility] ----- MATT CALABRESE ([id number]) 89 F Date Time Provider Department 07/09/24 LENORA DOW [facility] During your visit today, we recorded the following information about you: Allergies As of Date: 07/09/2024 Noted Allergy Reaction PENICILLINS 05/30/2020 4 - Hives 16 - Unknown Comments: Other reaction(s): Hives AMOXICILLIN 03/22/2022 4 - Hives AZITHROMYCIN 03/22/2022 4 - Hives 9 - Itching CLARITHROMYCIN 06/28/2021 4 - Hives METRONIDAZOLE 07/02/2024 2 - Rash SULFAMETHOXAZOLE-TRIMETHO PRIM 07/02/2024 2 - Rash TRAZODONE 11/14/2022 14 - Other: See Comments Comments: Suicidal ideations Other reaction(s): Suicidal ideation Date Reviewed: 07/09/2024 Reviewed by: Marybeth Marquez RN - Fully Assessed Prescriptions as of 07/11/2024 - acetaminophen (TYLENOL EXTRA STRENGTH) 500 mg tablet Take 1-2 tablets by mouth every 6 hours as needed for pain. Two (2) X 500 mg tablets = 1,000 mg - ondansetron orally disintegrating (ZOFRAN ODT) 4 mg disintegrating tablet Take 1 tablet by mouth every 8 hours as needed. - prazosin (MINIPRESS) 1 mg cap Take 2 mg by mouth once daily. - ketoconazole (NIZORAL) 2 % shampoo Apply 1 Application to affected area two times a week. - sumatriptan succ/naproxen sod (SUMATRIPTAN-NAPROXEN ORAL) Take 1 tablet by mouth as needed. - Flaxseed Oil oil Take 1 capsule by mouth two times a day. - magnesium oxide (MAG-OXIDE ORAL) Take 1 tablet by mouth once daily. - naltrexone 50 mg tablet Take 50 mg by mouth once daily. - QUEtiapine XR (SEROQUEL XR) 50 mg Tb24 Take 100 mg by mouth daily at bedtime. - cholecalciferol, Vitamin D3, (VITAMIN D3) 1,250 mcg (50,000 unit) cap capsule Take 1 capsule by mouth one time a week. - hydrOXYzine HCl (ATARAX) 25 mg tablet TAKE 1/2 TABLET BY MOUTH 4 TIMES A DAY NEEDED FOR ANXIETY, IF TOLERATED WITHOUT EXCESSIVE TIREDNESS CAN TAKE FULL TAB Problem List As Of Date 07/09/2024 Noted Resolved Lung nodules [R91.8] 05/17/2023 Morbid obesity (HCC) [E66.01] 10/08/2023 History of trauma [Z87.828] 10/08/2023 Migraine headache [G43.909] 10/08/2023 Post traumatic stress disorder [F43.10] 10/08/2023 Severe episode of recurrent major depressive di*10/08/2023 Cyst of peritoneal cavity [K66.8] 12/14/2023 Blood clot in arm (HCC) [I74.2] 12/24/[address] [Z97.5] 12/24/2023 Borderline personality disorder (HCC) [F60.3] 01/18/2024 Obesity, Class III, BMI >= 40 [E66.01] 04/29/2024 Encounter Status:Closed by LENORA DOW on 07/11/24 Normal [facility] CYTOLOGY NON-GYNon 5 ADEQUACY INTERPRETATION Normal [facility] Comment on above: Order Comment: Speci men Type: SPECIMEN OBTAINED BY ASPIRATIONOrdering Facility: [facility] Address: [address] [place] [address] Result Comment: A: # 1: Extensive necrosis and crushed lymphocytes cannot exclude granuloma #2: Extensive necrosis and crushed lymphocytes #3: NecrosisB: #1: Necrosis and fragment suggestive of calcification #2,3: Necrosis and crushed lymphocytes cannot exclude granulomaDr. Avani Amaro / Shaina Mckinney / Jose Alejandro Vera letter in the above intra-procedural assessment refers to a unique site. The specific site is indicated in the final diagnosis portion of the report. Each number in this assessment references a discrete evaluation episode.Intra-procedural assessment performed at [facility], [address] [place] [address] Performed By: #### C RENÉEONOSona ####[facility] LABCLIA [id number] [place] [address] [place] CASE REPORT Normal [facility] Comment on above: Order Comment: Speci men Type: SPECIMEN OBTAINED BY ASPIRATIONOrdering Facility: [facility] Address: [address] [place] [address] Result Comment: [facility] Cytology Report Case: [id number] Provider: Che Larsen MD Collected: 07/09/2024 11:30 AMOrdering Location: Admitting Received: 07/09/2024 12:22 PMPathologist: Siomara Amaro MDSpecimens: A) - Lymph Node, Transbronchial, 4R B) - Lymph Node, Transbronchial, Station 7 Performed By: #### C YTONON ####[facility] LABCLIA [id number] [place] [address] [place] CLINICAL HISTORY Childhood asthma, histoplasmosis and lung nodules Normal [facility] Comment on above: Order Comment: Speci men Type: SPECIMEN OBTAINED BY ASPIRATIONOrdering Facility: [facility] Address: [address] [place] [address] Performed By: #### C YTONON ####[facility] LABCLIA [id number] [address] [place] DIAGNOSIS COMMENT In parts A and B, th e GMS stain highlights 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 In parts A and B, the AFB stain is negative for mycobacteria. Please correlate with microbiology culture results. Normal [facility] Comment on above: Order Comment: Speci men Type: SPECIMEN OBTAINED BY ASPIRATIONOrdering Facility: [facility] Address: [address] [place] [address] Performed By: #### C YTONON ####[facility] LABIA [id number] [address] FINAL DIAGNOSIS Normal [facility] Comment on above: Order Comment: Speci men Type: SPECIMEN OBTAINED BY ASPIRATIONOrdering Facility: [facility] Address: [address] [place] [address] Result Comment: A - Lymph Node, Transbronchial, FNA - 4R Negative for malignant cells. Necrotizing granulomatous inflammation with fungal yeasts consistent with Histoplasma (see comment).B - Lymph Node, Transbronchial, FNA - Station 7 Negative for malignant cells. Necrotizing granulomatous inflammation with fungal yeasts consistent with Histoplasma (see comment).The following cell blocks were associated with this case:A1 Cell Block, Alcohol FixedB1 Cell Block, Alcohol Fixed at 1639 EST Performed By: #### C YTONON ####[facility] LABCLIA [id number] [address] OF [facility] FINAL PERFORMING LAB Normal [facility] Comment on above: Order Comment: Speci men Type: SPECIMEN OBTAINED BY ASPIRATIONOrdering Facility: [facility] Address: [address] [place] [address] Result Comment: Tech nical component, procurement director screening performed at [facility], [address] [place] [address] CLIA# [id number] interpretation performed at [facility], [address] [place] [address] CLIA# [id number] Director: John Zuluaga M.D. Performed By: #### C YTGRANTN ####[facility] LABIA [id number] [place] [address] [place] GROSS DESCRIPTION Normal [facility] Comment on above: Order Comment: Speci men Type: SPECIMEN OBTAINED BY ASPIRATIONOrdering Facility: [facility] Address: [address] [place] [address] Result Comment: A. L ymph Node, Wkhbgyariwfrpy65 cc hazy pink CytoLyt with particles. ThinPrep and Cell Block prepared and 6 smears (3 air dried and 3 fixed).B. Lymph Node, Exbqpmrqrihpva92 cc hazy pink CytoLyt with particles. ThinPrep and Cell Block prepared and 6 smears (3 air dried and 3 fixed). Performed By: #### C YTTRISTIN ####[facility] LABIA [id number] [place] [address] [place] Fungus Spec Culton Fungus identified Cx Nom (Unsp spec) CULTURE, FUNGAL: No Fungus isolated after 28 days Normal [facility] Comment on above: Performed By: #### 4 3441-5 ####[facility] LABIA [id number] [place] [address] [place]#### 580-1, 96537-9 ####[facility] LABCLIA [id number] [place] [address] [place] L. pneumophila DNA SHO+probe Ql (Unsp spec)on 07-09-2024 Legionella spp Spec Ql SHO+probe Not detected Normal Not detected [facility] Comment on above: Order Comment: Speci men Type: SPECIMEN OBTAINED BY LAVAGEOrdering Facility: [facility] Address: [address] [place] [address] Performed By: #### 2 1363-7 ####[facility]CLIA [id number] [facility] [address] [address] [place] Microorganism Spec Culton Microorganism identified Cx Nom (Unsp spec) CULTURE, FUNGAL: No Fungus isolated after 28 days FUNGAL SMEAR: No fungus seen Normal [facility] Comment on above: Performed By: #### 6 35-3, 09768-9 ####[facility] LABCLIA [id number] [place] [address] [place]#### 95153-3 ####[facility] LABCLIA [id number] [place] [id number] [place] Microorganism identified Cx Nom (Unsp spec) CULTURE, AFB: No Acid Fast Bacilli isolated after 42 days AFB STAIN: No acid fast bacilli seen by fluorochrome stain Normal [facility] Comment on above: Performed By: #### 6 35-3, 57380-9 ####[facility] LABCLIA [id number] [address] [address] [place]#### 62351-2 ####[facility] LABCLIA [id number] [place] [id number] [place] Microorganism identified Cx Nom (Unsp spec) CULTURE, AFB: No Acid Fast Bacilli isolated after 42 days AFB STAIN: No acid fast bacilli seen by fluorochrome stain Normal [facility] Comment on above: Performed By: #### 4 3441-5 ####[facility] LABCLIA [id number] [address] [address] [place]#### 580-1, 76622-5 ####[facility] LABCLIA [id number] [address] [address] [place] NURSING PROGon 07-09-2024 NURSING PROG Normal [facility] PNEUMOCYSTIS JIROVECII PCRon 07-09-2024 P. jiroveci DNA SHO+probe (Unsp spec) [#/Vol] Not detected Normal Pneumocystis jirovecii Not Detected by PCR [facility] Comment on above: Order Comment: Speci men Type: SPECIMEN OBTAINED BY LAVAGEOrdering Facility: [facility] Address: [address] [place] [address] Performed By: #### P [facility] ####[facility] LABCLIA [id number] [place] [address] [place] Respiratory pathogens DNA an d RNA panel SHO+probe (Nph)on 07-09-2024 Adenovirus hexon gene SHO+probe Ql (Nph) Not detected Normal Not detected [facility] Comment on above: Order Comment: Speci men Type: SPECIMEN OBTAINED BY LAVAGEOrdering Facility: [facility] Address: [address] [place] [address] Performed By: #### 7 8922-2 ####[facility] LABCLIA [id number] [place] [address] [place] C. pneumoniae DNA SHO+probe Ql (Unsp spec) Not detected Normal Not detected [facility] Comment on above: Order Comment: Speci men Type: SPECIMEN OBTAINED BY LAVAGEOrdering Facility: [facility] Address: [address] [place] [address] Performed By: #### 7 8922-2 ####[facility] LABCLIA [id number] [place] [address] [place] FLUAV RNA SHO+probe Ql (Unsp spec) Not detected Normal Not detected [facility] Comment on above: Order Comment: Speci men Type: SPECIMEN OBTAINED BY LAVAGEOrdering Facility: [facility] Address: [address] [place] [address] Performed By: #### 7 8922-2 ####[facility] LABCLIA [id number] [place] [address] [place] FLUBV RNA SHO+probe Ql (Unsp spec) Not detected Normal Not detected [facility] Comment on above: Order Comment: Speci men Type: SPECIMEN OBTAINED BY LAVAGEOrdering Facility: [facility] Address: [address] [place] [address] Performed By: #### 7 8922-2 ####[facility] LABIA [id number] [place] [address] [place] HCoV 229E+OC43 RNA SHO+probe Ql (Nph) Not detected Normal Not detected [facility] Comment on above: Order Comment: Speci men Type: SPECIMEN OBTAINED BY LAVAGEOrdering Facility: [facility] Address: [address] [place] [address] Performed By: #### 7 8922-2 ####[facility] [id number] [place] [address] [place] HCoV HKU1 RNA SHO+probe Ql (Unsp spec) Not detected Normal Not detected [facility] Comment on above: Order Comment: Speci men Type: SPECIMEN OBTAINED BY LAVAGEOrdering Facility: [facility] Address: [address] [place] [address] Performed By: #### 7 8922-2 ####[facility] [id number] [place] [address] [place] HCoV NL63 RNA SHO+non-probe Ql (Nph) Not detected Normal Not detected [facility] Comment on above: Order Comment: Speci men Type: SPECIMEN OBTAINED BY LAVAGEOrdering Facility: [facility] Address: [address] [place] [address] Performed By: #### 7 8922-2 ####[facility] LABIA [id number] [place] [address] [place] HCoV OC43 RNA SHO+probe Ql (Unsp spec) Not detected Normal Not detected [facility] Comment on above: Order Comment: Speci men Type: SPECIMEN OBTAINED BY LAVAGEOrdering Facility: [facility] Address: [address] [place] [address] Performed By: #### 7 8922-2 ####[facility] LABCLIA [id number] [place] [address] [place] hMPV RNA SHO+probe Ql (Unsp spec) Not detected Normal Not detected [facility] Comment on above: Order Comment: Speci men Type: SPECIMEN OBTAINED BY LAVAGEOrdering Facility: [facility] Address: [address] [place] [address] Performed By: #### 7 8922-2 ####[facility] LABCLIA [id number] [place] [address] [place] M. pneumoniae DNA SHO+probe Ql (Unsp spec) Not detected Normal Not detected [facility] Comment on above: Order Comment: Speci men Type: SPECIMEN OBTAINED BY LAVAGEOrdering Facility: [facility] Address: [address] [place] [address] Performed By: #### 7 8922-2 ####[facility] LABIA [id number] [place] [address] [place] Parainfluenza virus 1 RNA SHO+probe Ql (Unsp spec) Not detected Normal Not detected [facility] Comment on above: Order Comment: Speci men Type: SPECIMEN OBTAINED BY LAVAGEOrdering Facility: [facility] Address: [address] [place] [address] Performed By: #### 7 8922-2 ####[facility] LABCLIA [id number] [place] [address] [place] Parainfluenza virus 2 RNA SHO+probe Ql (Unsp spec) Not detected Normal Not detected [facility] Comment on above: Order Comment: Speci men Type: SPECIMEN OBTAINED BY LAVAGEOrdering Facility: [facility] Address: [address] [place] [address] Performed By: #### 7 8922-2 ####[facility] LABCLIA [id number] [place] [address] [place] Parainfluenza virus 3 RNA SHO+probe Ql (Unsp spec) Not detected Normal Not detected [facility] Comment on above: Order Comment: Speci men Type: SPECIMEN OBTAINED BY LAVAGEOrdering Facility: [facility] Address: [address] [place] [address] Performed By: #### 7 8922-2 ####[facility] LABCLIA [id number] [place] [address] [place] Parainfluenza virus 4 P gene SHO+probe Ql (Nph) Not detected Normal Not detected [facility] Comment on above: Order Comment: Speci men Type: SPECIMEN OBTAINED BY LAVAGEOrdering Facility: [facility] Address: [address] [place] [address] Performed By: #### 7 8922-2 ####[facility] LABIA [id number] [place] [address] [place] Rhinovirus 5' UTR RNA SHO+probe Ql (Nph) Not detected Normal Not detected [facility] Comment on above: Order Comment: Speci men Type: SPECIMEN OBTAINED BY LAVAGEOrdering Facility: [facility] Address: [address] [place] [address] Performed By: #### 7 8922-2 ####[facility] LABIA [id number] [place] [address] [place] RSV RNA SHO+probe Ql (Upper resp) Not detected Normal Not detected [facility] Comment on above: Order Comment: Speci men Type: SPECIMEN OBTAINED BY LAVAGEOrdering Facility: [facility] Address: [address] [place] [address] Performed By: #### 7 8922-2 ####[facility] LABIA [id number] [place] [address] [place] SARS-CoV-2 (COVID-19) RNA SHO+probe Ql (Unsp spec) Not detected Normal See comment [facility] Comment on above: Order Comment: Speci men Type: SPECIMEN OBTAINED BY LAVAGEOrdering Facility: [facility] Address: [address] [place] [address] Performed By: #### 7 8922-2 ####[facility] LABCLIA [id number] [facility] [id number] [id number] [place] XR CHEST 1V FRONTAL PORTon 0 07-09-2024 XR CHEST 1V FRONTAL PORT Normal [facility] CBC W/Diff, Automatedon 02- Absolute Lymph 1.98 X10 3/uL Normal 0.83-4.51 [facility] Comment on above: Performed By: #### L 400.0001, L3100.5500, L501.3620, L3100.7000, L500.4050, L100.0100, L3100.7950, L101.9900 #### [facility] [address] [place], [address] Absolute Neut 5.1 X10 3/uL Normal 2.0-7.7 [facility] Comment on above: Performed By: #### L 400.0001, L3100.5500, L501.3620, L3100.7000, L500.4050, L100.0100, L3100.7950, L101.9900 #### [facility] [address] [place], [address] Basophils/100 WBC (Bld) 0.4 % Normal 0-1 [facility] Comment on above: Performed By: #### L 400.0001, L3100.5500, L501.3620, L3100.7000, L500.4050, L100.0100, L3100.7950, L101.9900 #### [facility] [address] [place], [address] Eosinophils/100 WBC (Bld) 1.2 % Normal 0-5 [facility] Comment on above: Performed By: #### L 400.0001, L3100.5500, L501.3620, L3100.7000, L500.4050, L100.0100, L3100.7950, L101.9900 #### [facility] [address] [place], [address] Erythrocyte distribution width (RBC) [Ratio] 12.7 % Normal 11.6-14.6 [facility] Comment on above: Performed By: #### L 400.0001, L3100.5500, L501.3620, L3100.7000, L500.4050, L100.0100, L3100.7950, L101.9900 #### [facility] [address] [place], [address] Hematocrit (Bld) [Volume fraction] 37.2 % Normal 37-47 [facility] Comment on above: Performed By: #### L 400.0001, L3100.5500, L501.3620, L3100.7000, L500.4050, L100.0100, L3100.7950, L101.9900 #### [facility] [address] [place], [address] Hemoglobin (Bld) [Mass/Vol] 12.0 g/dL Normal 12.0-15.0 [facility] Comment on above: Performed By: #### L 400.0001, L3100.5500, L501.3620, L3100.7000, L500.4050, L100.0100, L3100.7950, L101.9900 #### [facility] [address] [place], [address] IG% 0.300 Normal 0.0-0.9 [facility] Comment on above: Result Comment: IG% - Immature Granulocytes (promyelocytes, myelocytes and metamyelocytes) > 1% indicates that a LEFT SHIFT is Present. Performed By: #### L 400.0001, L3100.5500, L501.3620, L3100.7000, L500.4050, L100.0100, L3100.7950, L101.9900 #### [facility] [address] [place], [address] Lymphocytes/100 WBC (Bld) 26.1 % Normal 19-41 [facility] Comment on above: Performed By: #### L 400.0001, L3100.5500, L501.3620, L3100.7000, L500.4050, L100.0100, L3100.7950, L101.9900 #### [facility] [address] [place], [address] MCH (RBC) [Entitic mass] 28.3 pg Normal 27.0-32.0 [facility] Comment on above: Performed By: #### L 400.0001, L3100.5500, L501.3620, L3100.7000, L500.4050, L100.0100, L3100.7950, L101.9900 #### [facility] [address] [place], [address] MCHC (RBC) [Mass/Vol] 32.3 g/dL Normal 32-36 [facility] Comment on above: Performed By: #### L 400.0001, L3100.5500, L501.3620, L3100.7000, L500.4050, L100.0100, L3100.7950, L101.9900 #### [facility] [address] [place], [address] MCV (RBC) [Entitic vol] 87.7 fL Normal 81-99 [facility] Comment on above: Performed By: #### L 400.0001, L3100.5500, L501.3620, L3100.7000, L500.4050, L100.0100, L3100.7950, L101.9900 #### [facility] [address] [facility] [place], [address] Monocytes/100 WBC (Bld) 5.4 % Normal 0-10 [facility] Comment on above: Performed By: #### L 400.0001, L3100.5500, L501.3620, L3100.7000, L500.4050, L100.0100, L3100.7950, L101.9900 #### [facility] [address] [place], [address] Neutrophils/100 WBC (Bld) 66.6 % Normal 47-70 [facility] Comment on above: Performed By: #### L 400.0001, L3100.5500, L501.3620, L3100.7000, L500.4050, L100.0100, L3100.7950, L101.9900 #### [facility] [address] [place], [address] Nucleated RBC (Bld) [#/Vol] 0 10*3/uL Normal 0-5 [facility] Comment on above: Performed By: #### L 400.0001, L3100.5500, L501.3620, L3100.7000, L500.4050, L100.0100, L3100.7950, L101.9900 #### [facility] [address] [place], [address] Platelet mean volume (Bld) [Entitic vol] 10.7 fL Normal 6.2-12.0 [facility] Comment on above: Performed By: #### L 400.0001, L3100.5500, L501.3620, L3100.7000, L500.4050, L100.0100, L3100.7950, L101.9900 #### [facility] [address] [place], [address] Platelets (Bld) [#/Vol] 304 10*3/uL Normal 150-450 [facility] Comment on above: Performed By: #### L 400.0001, L3100.5500, L501.3620, L3100.7000, L500.4050, L100.0100, L3100.7950, L101.9900 #### [facility] [address] [place], [address] RBC (Bld) [#/Vol] 4.24 10*6/uL Normal 4.2-5.4 [facility] Comment on above: Performed By: #### L 400.0001, L3100.5500, L501.3620, L3100.7000, L500.4050, L100.0100, L3100.7950, L101.9900 #### [facility] [address] [place], [address] RDW SD 39.9 fl Normal 35.1-43.9 [facility] Comment on above: Performed By: #### L 400.0001, L3100.5500, L501.3620, L3100.7000, L500.4050, L100.0100, L3100.7950, L101.9900 #### [facility] [address] [place], [address] WBC (Bld) [#/Vol] 7.6 10*3/uL Normal 4.4-11.0 [facility] Comment on above: Performed By: #### L 400.0001, L3100.5500, L501.3620, L3100.7000, L500.4050, L100.0100, L3100.7950, L101.9900 #### [facility] [address] [place], [address] CPK Total, Creatine Kinaseon 07-07-2024 CPK TOTAL 84 U/L Normal 26-192 [facility] Comment on above: Performed By: #### L 400.0001, L3100.5500, L501.3620, L3100.7000, L500.4050, L100.0100, L3100.7950, L101.9900 #### [facility] [address] [place], [address] Comprehensive Metabolic Prof ilon 07-07-2024 Albumin [Mass/Vol] 3.6 g/dL Normal 3.2-5.0 [facility] Comment on above: Performed By: #### L 400.0001, L3100.5500, L501.3620, L3100.7000, L500.4050, L100.0100, L3100.7950, L101.9900 #### [facility] [address] [place], [address] Albumin/Globulin [Mass ratio] 0.9 {ratio} Normal 0.9-2.4 [facility] Comment on above: Performed By: #### L 400.0001, L3100.5500, L501.3620, L3100.7000, L500.4050, L100.0100, L3100.7950, L101.9900 #### [facility] [address] [place], [address] ALK P 73 U/L Normal 45-117 [facility] Comment on above: Performed By: #### L 400.0001, L3100.5500, L501.3620, L3100.7000, L500.4050, L100.0100, L3100.7950, L101.9900 #### [facility] [address] [place], [address] ALT [Catalytic activity/Vol] 25 U/L Normal 13-56 [facility] Comment on above: Performed By: #### L 400.0001, L3100.5500, L501.3620, L3100.7000, L500.4050, L100.0100, L3100.7950, L101.9900 #### [facility] [address] [place], [address] AST [Catalytic activity/Vol] 20 U/L Normal 15-37 [facility] Comment on above: Performed By: #### L 400.0001, L3100.5500, L501.3620, L3100.7000, L500.4050, L100.0100, L3100.7950, L101.9900 #### [facility] [address] [place], [address] Bilirubin [Mass/Vol] 0.20 mg/dL Normal 0.20-1.00 [facility] Comment on above: Result Comment: For patients on eltrombopag therapy, use of Dimension [place] TBIL is not recommended. Performed By: #### L 400.0001, L3100.5500, L501.3620, L3100.7000, L500.4050, L100.0100, L3100.7950, L101.9900 #### [facility] [address] [place], [address] BUN/CRE 19.3 RATIO Normal 10-20 [facility] Comment on above: Performed By: #### L 400.0001, L3100.5500, L501.3620, L3100.7000, L500.4050, L100.0100, L3100.7950, L101.9900 #### [facility] [address] [place], [address] CA,Total 9.1 mg/dL Normal 8.5-10.1 [facility] Comment on above: Performed By: #### L 400.0001, L3100.5500, L501.3620, L3100.7000, L500.4050, L100.0100, L3100.7950, L101.9900 #### [facility] [address] [place], [address] Chloride [Moles/Vol] 108 mmol/L High 98-107 [facility] Comment on above: Performed By: #### L 400.0001, L3100.5500, L501.3620, L3100.7000, L500.4050, L100.0100, L3100.7950, L101.9900 #### [facility] [address] [place], [address] CO2 [Moles/Vol] 26.0 mmol/L Normal 21.0-32.0 [facility] Comment on above: Performed By: #### L 400.0001, L3100.5500, L501.3620, L3100.7000, L500.4050, L100.0100, L3100.7950, L101.9900 #### [facility] [address] [place], [place], [phone] (740) Creatinine [Mass/Vol] 0.73 mg/dL Normal 0.55-1.02 [facility] Comment on above: Result Comment: The validity of the calculated GFR GFRAA in patients over 70 years has not been determined. Clinical correlation is essential. Performed By: #### L 400.0001, L3100.5500, L501.3620, L3100.7000, L500.4050, L100.0100, L3100.7950, L101.9900 #### [facility] [address] [place], [place], [phone] (827) EST GFR - AA 126 mL/min Normal >60 [facility] Comment on above: Result Comment: Afri can [place] GFR Calc Performed By: #### L 400.0001, L3100.5500, L501.3620, L3100.7000, L500.4050, L100.0100, L3100.7950, L101.9900 #### [facility] [address] [place], [place], [id number] (529) GAP 6 Normal 5-15 [facility] Comment on above: Performed By: #### L 400.0001, L3100.5500, L501.3620, L3100.7000, L500.4050, L100.0100, L3100.7950, L101.9900 #### [facility] [address] [place], [place], [phone] (925) GFR/1.73 sq M.predicted among non-blacks MDRD (S/P/Bld) [Vol rate/Area] 104 mL/min/{1.73_m2} Normal >60 [facility] Comment on above: Result Comment: Non- GFR Calc Performed By: #### L 400.0001, L3100.5500, L501.3620, L3100.7000, L500.4050, L100.0100, L3100.7950, L101.9900 #### [facility] [address] [place], [address] Globulin (S) [Mass/Vol] 3.9 g/dL Normal 2.2-4.2 [facility] Comment on above: Performed By: #### L 400.0001, L3100.5500, L501.3620, L3100.7000, L500.4050, L100.0100, L3100.7950, L101.9900 #### [facility] [address] [place], [address] Glucose [Mass/Vol] 104 mg/dL Normal 74-106 [facility] Comment on above: Result Comment: Fast ing Glucose result from 100 to 125 mg/dL suggests IMPAIRED HOMEOSTASIS per A.D.A. criteria. Performed By: #### L 400.0001, L3100.5500, L501.3620, L3100.7000, L500.4050, L100.0100, L3100.7950, L101.9900 #### [facility] [address] [place], [address] Potassium [Moles/Vol] 3.9 mmol/L Normal 3.5-5.1 [facility] Comment on above: Performed By: #### L 400.0001, L3100.5500, L501.3620, L3100.7000, L500.4050, L100.0100, L3100.7950, L101.9900 #### [facility] [address] [place], [address] Sodium [Moles/Vol] 140 mmol/L Normal 136-145 [facility] Comment on above: Performed By: #### L 400.0001, L3100.5500, L501.3620, L3100.7000, L500.4050, L100.0100, L3100.7950, L101.9900 #### [facility] [address], [address] T PROT 7.5 g/dL Normal 6.4-8.2 [facility] Comment on above: Performed By: #### L 400.0001, L3100.5500, L501.3620, L3100.7000, L500.4050, L100.0100, L3100.7950, L101.9900 #### [facility] [address] [place], [address] Urea nitrogen [Mass/Vol] 14 mg/dL Normal 7-18 [facility] Comment on above: Performed By: #### L 400.0001, L3100.5500, L501.3620, L3100.7000, L500.4050, L100.0100, L3100.7950, L101.9900 #### [facility] [address] [place], [address] Erythrocyte Sed Rateon 07-07 SED RATE 20 mm/hr Normal 0-30 [facility] Comment on above: Performed By: #### L 400.0001, L3100.5500, L501.3620, L3100.7000, L500.4050, L100.0100, L3100.7950, L101.9900 #### [facility] [address] [place], [address] Urinalysis, Completeon 07-07 RBC 0 SEEN Normal 0-5 [facility] Comment on above: Order Comment: Urine , Random Performed By: #### L 400.0001, L3100.5500, L501.3620, L3100.7000, L500.4050, L100.0100, L3100.7950, L101.9900 #### [facility] [address] [place], [address] BACTERIA 0 SEEN Normal None Seen [facility] Comment on above: Order Comment: Urine , Random Performed By: #### L 400.0001, L3100.5500, L501.3620, L3100.7000, L500.4050, L100.0100, L3100.7950, L101.9900 #### [facility] [address] [place], [address] EPI,SQUAMOUS 0 SEEN Normal 5-10 [facility] Comment on above: Order Comment: Urine , Random Performed By: #### L 400.0001, L3100.5500, L501.3620, L3100.7000, L500.4050, L100.0100, L3100.7950, L101.9900 #### [facility] [address] [place], [address] Mucus Ql (Urine sed) 0 SEEN Normal [facility] Comment on above: Order Comment: Urine , Random Performed By: #### L 400.0001, L3100.5500, L501.3620, L3100.7000, L500.4050, L100.0100, L3100.7950, L101.9900 #### [facility] [address] [place], [address] WBC 0 SEEN Normal 0-5 [facility] Comment on above: Order Comment: Urine , Random Performed By: #### L 400.0001, L3100.5500, L501.3620, L3100.7000, L500.4050, L100.0100, L3100.7950, L101.9900 #### [facility] [address] [place], [address] NURSING PROGon 07-04-2024 NURSING PROG Normal [facility] CNOVon 07-02-2024 CNOV Normal [facility] Comprehensive metabolic 2000 panelon 07-02-2024 Albumin [Mass/Vol] 4.2 g/dL Normal 3.9-4.9 [facility] Comment on above: Order Comment: Speci men Type: BLOOD SPECIMENOrdering Facility: [facility] Address: [address] [place], [place] [address] Performed By: #### 2 4323-8 ####[facility] LABCLIA [id number] [place] [id number] [place] ALP [Catalytic activity/Vol] 84 U/L Normal 34-123 [facility] Comment on above: Order Comment: Speci men Type: BLOOD SPECIMENOrdering Facility: [facility] Address: [address] [place] [address] Performed By: #### 2 4323-8 ####[facility] LABCLIA [id number] [place] [address] [place] ALT [Catalytic activity/Vol] 17 U/L Normal 7-38 [facility] Comment on above: Order Comment: Speci men Type: BLOOD SPECIMENOrdering Facility: [facility] Address: [address] [place] [address] Performed By: #### 2 4323-8 ####[facility] LABCLIA [id number] [place] [address] [place] Anion gap [Moles/Vol] 12 mmol/L Normal 8-15 [facility] Comment on above: Order Comment: Speci men Type: BLOOD SPECIMENOrdering Facility: [facility] Address: [address] [place], [place] [address] Performed By: #### 2 4323-8 ####[facility] LABCLIA [id number] [place] [id number] [place] AST [Catalytic activity/Vol] 23 U/L Normal 13-35 [facility] Comment on above: Order Comment: Speci men Type: BLOOD SPECIMENOrdering Facility: [facility] Address: [address] [place], [place] [address] Performed By: #### 2 4323-8 ####[facility] LABCLIA [id number] [place] [address] [place] Bilirubin [Mass/Vol] mg/dL Low 0.2-1.3 [facility] Comment on above: Order Comment: Speci men Type: BLOOD SPECIMENOrdering Facility: [facility] Address: [address] [place] [address] Performed By: #### 2 4323-8 ####[facility] LABCLIA [id number] [place] [address] [place] Calcium [Mass/Vol] 9.1 mg/dL Normal 8.5-10.2 [facility] Comment on above: Order Comment: Speci men Type: BLOOD SPECIMENOrdering Facility: [facility] Address: [address] [place] [address] Performed By: #### 2 4323-8 ####[facility] LABCLIA [id number] [place] [address] [place] Chloride [Moles/Vol] 106 mmol/L Normal 98-107 [facility] Comment on above: Order Comment: Speci men Type: BLOOD SPECIMENOrdering Facility: [facility] Address: [address] [place] [address] Performed By: #### 2 4323-8 ####[facility] LABCLIA [id number] [place] [address] [place] CO2 [Moles/Vol] 25 mmol/L Normal 22-30 [facility] Comment on above: Order Comment: Speci men Type: BLOOD SPECIMENOrdering Facility: [facility] Address: [address] [place] [address] Performed By: #### 2 4323-8 ####[facility] LABCLIA [id number] [place] [address] [place] Creatinine [Mass/Vol] 0.67 mg/dL Normal 0.58-0.96 [facility] Comment on above: Order Comment: Speci men Type: BLOOD SPECIMENOrdering Facility: [facility] Address: [address] [place] [address] Performed By: #### 2 4323-8 ####[facility] LABIA [id number] [place] [address] [place] Creatinine and Glomerular filtration rate.predicted panel (S/P/Bld) 125 mL/min/1.73m??? Normal >=60 [facility] Comment on above: Order Comment: Ronnie alonzo Type: BLOOD SPECIMENOrdering Facility: [facility] Address: [address] [place] [address] Result Comment: Edwige mated Glomerular Filtration Rate (eGFR) is calculated using the 2020 CKD-EPI creatinine equation. This equation utilizes serum creatinine, sex, and age as parameters. The creatinine assay has traceable calibration to isotope dilution-mass spectrometry. Refer to KDIGO guidelines for clinical interpretation. In patients with unstable renal function, e.g. those with acute kidney injury, the eGFR may not accurately reflect actual GFR. Performed By: #### 2 4323-8 ####[facility] LABIA [id number] [place] [address] [place] Glucose [Mass/Vol] 93 mg/dL Normal 74-99 [facility] Comment on above: Order Comment: Ronnie alonzo Type: BLOOD SPECIMENOrdering Facility: [facility] Address: [address] [place] [address] Result Comment: The [place] Diabetes Association (ADA) provides guidance for cutoff values for fasting glucose and random glucose. The ADA defines fasting as no caloric intake for at least 8 hours. Fasting plasma glucose results between 100 to 125 mg/dL indicate increased risk for diabetes (prediabetes).Fasting plasma glucose results greater than or equal to 126 mg/dL meet the criteria for diagnosis of diabetes. In the absence of unequivocal hyperglycemia, results should be confirmed by repeat testing. In a patient with classic symptoms of hyperglycemia or hyperglycemic crisis, random plasma glucose results greater than or equal to 200 mg/dL meet the criteria for diagnosis of diabetes.Reference: Standards of Medical Care in Diabetes 2016, [place] Diabetes Association. Diabetes Care. 2016.39(Suppl 1). Performed By: #### 2 4323-8 ####[facility] LABCLIA [id number] [place] [address] [place] Potassium [Moles/Vol] 4.1 mmol/L Normal 3.7-5.1 [facility] Comment on above: Order Comment: Speci men Type: BLOOD SPECIMENOrdering Facility: [facility] Address: [address] [place] [address] Performed By: #### 2 4323-8 ####[facility] LABCLIA [id number] [place] [address] [place] Protein [Mass/Vol] 7.3 g/dL Normal 6.3-8.0 [facility] Comment on above: Order Comment: Speci men Type: BLOOD SPECIMENOrdering Facility: [facility] Address: [address] [place] [address] Performed By: #### 2 4323-8 ####[facility] LABCLIA [id number] [place] [address] [place] Sodium [Moles/Vol] 143 mmol/L Normal 136-144 [facility] Comment on above: Order Comment: Speci men Type: BLOOD SPECIMENOrdering Facility: [facility] Address: [address] [place] [address] Performed By: #### 2 4323-8 ####[facility] LABCLIA [id number] [place] [address] [place] Urea nitrogen [Mass/Vol] 13 mg/dL Normal 7-21 [facility] Comment on above: Order Comment: Speci men Type: BLOOD SPECIMENOrdering Facility: [facility] Address: [address] [place] [address] Performed By: #### 2 4323-8 ####[facility] LABCLIA [id number] [place] [address] [place] CNPTOUTREACHon 06-30-2024 CNPTOUTREACH Normal [facility] L3410.9998on 06-30-2024 [facility] COM[facility] Normal . [facility] Comment on above: Order Comment: SERUM [id number] LIVER FIBROSIS SER RF Result Comment: Test Ordered: [id number] Enhanced Liver Fibrosis (ELF) ELF(TM) Score 8.84 Reference Range: <9.80 ELF(TM) Score Interpretation: Risk cut-offs to assess the likelihood of progression to cirrhosis and liver-related clinical events within 3.9 years following baseline ELF score (IQR: 14.0-22.4 months)*: Lower risk < 9.80 Mid risk 9.80 - 11.29 Higher risk >11.29 Note: The ELF(TM) Score is a unitless numerical value. *Osorio SA, Juan MAHMOOD, Shy T, et al. Selonsertib for patients with bridging fibrosis or compensated cirrhosis due to GARCIA: Results from randomized phase III STELLAR trials. J Hepatol. 2020 Nov;73(1):26-39. Performed at: [facility] Lab[address] [id number] [employer] Drier Operator: Fara Plaza MD, Phone: [phone] Performed at: [address] [id number] [employer] Operator: Julian Wang PhD, Phone: [phone] Performed By: #### L 400.0001, L3100.5500, L501.3620, L3100.7000, L500.4050, L100.0100, L3100.7950, L101.9900 #### [facility] [address] [place], [place], [address] PT D/C Summary (1)on 025 PT D/C Summary (1) [facility] [place] [address] / REHABILITATION SERVICES DISCHARGE SUMMARY MR#: [id number] Acct: [id number] Name: MATT CALABRESE HELIO Rep #: [id number] : 2000 24 From: Evans Matthews PT, ATC Referring Dr.: Dr. Aury Tristan DO Status: REG RCR Insurance: [facility] [employer] SELF PAY INSURANCE Discharge Summary D/C summary: It has been my pleasure to treat MATT CALABRESE referred by Dr. Aury Tristan DO, with the diagnosis of Knee and hip pain. for a total of 53 visit(s). Discharge Date: Please see the following information for a summary of their discharge status. Subjective Subjective: I am still painful. Pain LB: Pain Intensity (Out of 10): 6 l KNEE: Pain Intensity (Out of 10): 4 L ankle: Pain Intensity (Out of 10): 4 Overall Improvement % Improvement: 44 Objective Objective/Function: LBP 6/10 L knee ext strength 19 #F Pt is able to perform 10 bridges, but not through a full ROM Pt is I with HEP Goals Goal 1:: Decrease LBP x 50% to aid with IADL's Goal Progress: Progressing Goal 2:: Increase L knee ext strength x 20#F to aid with stair negotiation Goal Progress: Progressing Goal 3:: Pt will be able to perform 10 bridges with full ROM to demonstrate improved core stability Goal Progress: Progressing Goal 4:: I with HEP Goal Progress: Goal Met Plan Plan: Discontinue to HEP D/C Information d/c sentence: If there are questions or concerns regarding this patient's physical therapy, please feel free to call me at [phone]. Thank you for the referral of this patient. Sincerely, Evans Matthews, PT, ATC Balance/Gait/Functional tests Balance/Special Test Scores Lower Extremity Functional Score: 28 Improvement % Improvement: 44 06/26/24 1126 CC: ORIN Priest; Dr. Aury Tristan DO [facility] Signed Normal [facility] Ankle min 3 Viewson 06-24-19 25 Ankle min 3 Views [facility] Services [address] [place], [place] [id number] Ankle min 3 Views MR#: [id number] Acct: [id number] Name: MATT CALABRESE Rep #: [id number] : 2000 F 24 From: Sharan Romero MD PCP: ORIN Beatty Status: REG CLI Study: Ankle min 3 Views Date of Exam: 06/24/24 Exam# [id number] Ordering Dr: Andrea Campos PROCEDURE: ANKLE MIN 3 VIEWS REASON FOR EXAM: Fell several days ago. TECHNIQUE: 3 views of the left ankle COMPARISON: 12/01/2022 left ankle. FINDINGS: No visible fracture. No suspicious bone lesion. Normal alignment. Mortise appears intact. No effusion. Soft tissues are unremarkable. RAD/Ankle min 3 Views IMPRESSION: NEGATIVE ANKLE SERIES Reading Location: [facility] CC: ORIN Priest; MULTIMEDIA ASSISTANT-C Andrea Campos Ingot Header: Signed Normal [facility] Knee 3 Viewson 06-24-2024 Knee 3 Views [facility] Services [address] [place], [place] [address] Knee 3 Views MR#: [id number] Acct: [id number] Name: MATT CALABRESE LINCOLN Rep #: [id number] : 2000 F 24 From: Sharan Romero MD PCP: ORIN Beatty Status: REG CLI Study: Knee 3 Views Date of Exam: 06/24/24 Exam# [id number] Ordering Dr: Andrea Campos PROCEDURE: LEFT KNEE, THREE VIEWS REASON FOR EXAM: FELL SEVERAL DAYS AGO. LEFT KNEE PAIN. TECHNIQUE: 3 view(s) of the LEFT knee COMPARISON: LEFT KNEE DATED 11/09/2023. FINDINGS: No fracture. No suspicious bone lesion. Normal alignment. No effusion. Soft tissues are unremarkable. RAD/Knee 3 Views IMPRESSION: No acute osseous findings involving the left knee. No other significant findings. Reading Location: [facility] CC: ORIN Priest; ALONZO-C Andrea Campos Ingot Header: Signed Normal [facility] Urgent Care Visit Reporton 0 06-24-2024 Urgent Care Visit Report [facility] [address] [place] [address] OFFICE VISIT Date of Service: 06/24/24 MR#: [id number] Acct: [id number] Name: MATT CALABRESE Rep #: [id number] : 2000 Provider: ORIN Campos Age/Sex: 24/F Location: [facility] Status: Signed Intake Vital Signs 06/09/24 09:26 06/24/24 17:37 Height 5 ft 3 in Weight: 233 lb BMI 41.3 BP 114/75 122/80 H Position Sitting Respiration 16 Pulse 84 78 Temp 98.1 F Temp Source Oral Pulse Oximetry (%) 96 96 Oxygen Delivery Method room air room air Intake Visit Reasons: LEFT FOOT PAIN/ LEFT KNEE PAIN Chief Complaint: Left knee and ankle pain Accompanied by: Self Allergies amoxicillin Allergy (Verified 06/24/24 17:25) Upset Stomach erythromycin base Allergy (Verified 06/24/24 17:25) Upset Stomach Penicillins (PCN) Allergy (Verified 06/24/24 17:25) Upset Stomach azithromycin (From Zithromax) Adverse Reaction (Intermediate, Verified 06/24/24 17:25) Hives metronidazole (From Flagyl) Adverse Reaction (Intermediate, Verified 06/24/24 17:25) Rash sulfamethoxazole (From Bactrim) Adverse Reaction (Intermediate, Verified 06/24/24 17:25) Rash trimethoprim (From Bactrim) Adverse Reaction (Intermediate, Verified 06/24/24 17:25) Rash trazodone Adverse Reaction (Unknown, Verified 06/24/24 17:25) suicidal ideation Medications ???Medication ???Instructions ???Recorded ???Confirmed ???Type ergocalciferol (vitamin D2) 1,250 1,250 mcg PO QWEEK 06/09/2406/24 History mcg (50,000 unit) capsule ferrous sulfate 325 mg (65 mg 325 mg PO QDAY 06/09/24 06/24/24 H istory iron) tablet flax seed oil PO 06/09/24 06/24/24 History hydroxyzine HCl 25 mg tablet 25 mg PO .QID PRN anxiety 06/09/24 06/24/24 History magnesium hydroxide 400 mg (170 mg 400 mg PO QD-BID 06/09/24 History magnesium) chewable tablet naltrexone 50 mg tablet 50 mg PO QDAY 06/09/24 06/24/24 Hi story ondansetron HCl 4 mg tablet 4 mg PO Q8H PRN 06/09/24 06/24/24 History pantoprazole 40 mg tablet,delayed 40 mg PO QDAY 06/09/24 06/24/24 H istory release polyethylene glycol 3350 17 17 g PO ONCE #850 grams 06/09/24 0 06/24/24 Rx gram/dose oral powder (Miralax) prazosin 2 mg capsule 2 mg PO QHS 06/09/24 06/24/24 Hist ory quetiapine 100 mg tablet (Seroquel) 100 mg PO QHS 06/09/24 06/24/24 History sennosides 8.6 mg capsule (senna) 8.6 mg PO BID 06/09/24 06/24/24 H istory sumatriptan succinate 25 mg tablet See Rx Instructions PO .COMPLEX 06/09/24 06/24/24 History wheat dextrin 3 gram/4 gram oral 1.5 g PO BID #500 grams 06/09/24 0 06/24/24 Rx powder (Benefiber Sugar Free (dextrin)) Nurse's Note: Patient slipped on ice last sunday. patient c/o of pain on her left knee and left ankle and foot. [facility] Medical History (Updated 06/25/24 @ 06:08 by ORIN Griffiths) Ankle pain, left Right wrist sprain Left knee pain Strain of Achilles tendon Contact with or exposure to other viral diseases URI (upper respiratory infection) Sprain of left foot Left ankle sprain Contusion of left knee Anxiety Surgical History (Updated 06/09/24 @ 07:22 by Usha Rosen) Hx of breast reduction, elective Hx of cholecystectomy Family History (Updated 06/09/24 @ 07:17 by Usha Rosen) Mother Alcohol abuse Breast cancer Hypertension Muscle weakness Substance abuse Father Alcohol abuse Hypertension Grandmother Breast cancer Cancer Sister Hypertension Social History (Updated 06/09/24 @ 07:14 by Usha Rosen) sexually active: No Smoking Status: Never smoker alcohol intake: never substance use type: does not use HPI HPI Chief Complaint: Left knee and ankle pain Details: MATT CALABRESE, is a 24 F who presents to the office today for HPI: Approximately a year ago patient had an injury where she injured her left heel and knee. She recently had another fall and once again now has pain that radiates from her left heel to the lateral aspect of the left ankle and pain in her left knee. She was at physical therapy who recommended that she come to be evaluated to ensure there was no acute injury. ROS: As noted in HPI Physical Exam: VITALS: Reviewed. GEN: Healthy appearing, well-developed, NAD. PSYCH: AOx3. Normal memory, mood, and affect. LUNGS: Normal respiratory effort. SKIN: Warm, well perfused. No skin rashes or abnormal lesions noted. MSK: Mild diffuse tenderness of the left heel and the left lateral malleolus. Diffuse tenderness of the left knee with no obvious deformities noted. NEURO: Ambulating with no limitations. Normal muscle strength and tone. No focal deficits. Coding Level of Care Code Off vis,new,level 3 Diagnoses Acute pain of left knee M25.562 Chronicit (more content not included)... Normal [facility] INSLABon 06-18-2024 Insulin Abs <5.0 Normal [facility] Comment on above: Result Comment: This test is also known as insulin autoantibody or IAA. This test was developed and its performance characteristics determined by [facility]. It has not been cleared or approved by the Food and Drug Administration. Reference Range: <5.0 Negative > or = 5.0 Positive Performed At: [employer] [address] [place], [place] [id number] See Winkler MD Ph:[phone] Performed By: #### A SAMUEL, FES, CBC, A1C, FERR, ADIFF #### [address] [address] #### B12, FOL, INSLN #### [address] [address] ANAIFSon 06-13-2024 Antinuclear Ab Screen Negative Normal Negative [facility] Comment on above: Result Comment: Anti -nuclear antibody test is used as an aid in diagnosis of systemic autoimmune diseases. Where positive and clinically warranted, follow-up using disease-specific testing is recommended. Low positive titers are not uncommon with advanced age, certain chronic infections, and malignancies among others. Test methodology: Indirect fluorescence immunoassay (IFA) using HEp-2 cells. Performed By: [place] [address] [employer] D[employer] Operator: John Zuluaga III, M.D. CLIA#: [id number] Performed By: #### A SAMUEL, FES, CBC, A1C, FERR, ADIFF #### [place] [address] #### B12, FOL, INSLN #### [place] [address] AHAVGon 06-12-2024 Hepatitis A Antibody IgG Positive Normal [facility] Comment on above: Result Comment: Cons istent with serological evidence of immunity to Hepatitis A Virus. Performed By: [place] [address] [employer] D[employer] Operator: John Zuluaga III, M.D. CLIA#: [id number] Performed By: #### A SAMUEL, FES, CBC, A1C, FERR, ADIFF #### [place] [address] #### B12, FOL, INSLN #### [place] [address] .Auto Diffon 06-11-2024 Basophil, Absolute 0.0 10 3/mcL Normal 0.0-0.2 [facility] Comment on above: Performed By: #### A SAMUEL, FES, CBC, A1C, FERR, ADIFF #### [place] [address] #### B12, FOL, INSLN #### [place] [address] Basophils/100 WBC (Bld) 0.4 % Normal 0.0-2.5 [facility] Comment on above: Performed By: #### A SAMUEL, FES, CBC, A1C, FERR, ADIFF #### [place] [address] #### B12, FOL, INSLN #### [address] [address] Eosinophil, Absolute 0.1 10 3/mcL Normal 0.0-0.7 [facility] Comment on above: Performed By: #### A SAMUEL, FES, CBC, A1C, FERR, ADIFF #### [place] [address] #### B12, FOL, INSLN #### [address] [address] Eosinophils/100 WBC (Bld) 1.5 % Normal 0.0-7.0 [facility] Comment on above: Performed By: #### A SAMUEL, FES, CBC, A1C, FERR, ADIFF #### [place] [address] #### B12, FOL, INSLN #### [address] [address] Lymphocyte, Absolute 1.9 10 3/mcL Normal 0.9-4.3 [facility] Comment on above: Performed By: #### A SAMUEL, FES, CBC, A1C, FERR, ADIFF #### [place] [address] #### B12, FOL, INSLN #### [address] [address] Lymphocytes/100 WBC (Bld) 34.1 % Normal 20.0-40.0 [facility] Comment on above: Performed By: #### A SAMUEL, FES, CBC, A1C, FERR, ADIFF #### [place] [address] #### B12, FOL, INSLN #### [address] [address] Monocyte, Absolute 0.4 10 3/mcL Normal 0.1-1.4 [facility] Comment on above: Performed By: #### A SAMUEL, FES, CBC, A1C, FERR, ADIFF #### [place] [address] #### B12, FOL, INSLN #### [address] [address] Monocytes/100 WBC (Bld) 7.3 % Normal 2.0-13.0 [facility] Comment on above: Performed By: #### A SAMUEL, FES, CBC, A1C, FERR, ADIFF #### [address] [address] #### B12, FOL, INSLN #### [address] [address] Neutrophils/100 WBC (Bld) 56.7 % Normal 50.0-75.0 [facility] Comment on above: Performed By: #### A SAMUEL, FES, CBC, A1C, FERR, ADIFF #### [address] [address] #### B12, FOL, INSLN #### [address] [address] .GFRon 06-11-2024 GFR 102 ml/min/1.73sqm [facility] Comment on above: Result Comment: GFR Population mean for , Non- Americans Ages 20-29 = 116 mL/min/1.73 sq.m. Ages 30-39 = 107 mL/min/1.73 sq.m. Ages 40-49 = 99 mL/min/1.73 sq.m. Ages 50-59 = 93 mL/min/1.73 sq.m. Ages 60-69 = 85 mL/min/1.73 sq.m. Ages 70+ = 75 mL/min/1.73 sq.m. Chronic Kidney Disease: Less than 60 mL/min/1.73 square meters End Stage Renal Disease: Less than 15 mL/min/1.73 square meters Performed By: #### A SAMUEL, FES, CBC, A1C, FERR, ADIFF #### [address] [address] #### B12, FOL, INSLN #### [address] [address] GFR Non- 84 ml/min/1.73sqm [facility] Comment on above: Result Comment: GFR Population mean for , Non- Americans Ages 20-29 = 116 mL/min/1.73 sq.m. Ages 30-39 = 107 mL/min/1.73 sq.m. Ages 40-49 = 99 mL/min/1.73 sq.m. Ages 50-59 = 93 mL/min/1.73 sq.m. Ages 60-69 = 85 mL/min/1.73 sq.m. Ages 70+ = 75 mL/min/1.73 sq.m. Chronic Kidney Disease: Less than 60 mL/min/1.73 square meters End Stage Renal Disease: Less than 15 mL/min/1.73 square meters Performed By: #### A SAMUEL, FES, CBC, A1C, FERR, ADIFF #### [address] [address] #### B12, FOL, INSLN #### [address] [address] .NEUABSon 06-11-2024 Neutrophil, Absolute 3.2 10 3/mcL Normal 2.3-8.1 [facility] Comment on above: Performed By: #### A SAMUEL, FES, CBC, A1C, FERR, ADIFF #### [place] [address] #### B12, FOL, INSLN #### [address] [address] B12on 06-11-2024 Cobalamin (Vitamin B12) [Mass/Vol] 515 pg/mL Normal 211-911 [facility] Comment on above: Performed By: #### A SAMUEL, FES, CBC, A1C, FERR, ADIFF #### [address] [address] #### B12, FOL, INSLN #### [address] [address] CBCon 06-11-2024 Erythrocyte distribution width (RBC) [Ratio] 13.7 % Normal 11.5-15.5 [facility] Comment on above: Performed By: #### A SAMUEL, FES, CBC, A1C, FERR, ADIFF #### [place] [address] #### B12, FOL, INSLN #### [place] [address] Hematocrit (Bld) [Volume fraction] 37.2 % Normal 34.0-46.0 [facility] Comment on above: Performed By: #### A SAMUEL, FES, CBC, A1C, FERR, ADIFF #### [place] [address] #### B12, FOL, INSLN #### [place] [address] Hgb 12.5 G/dL Normal 12.0-16.0 [facility] Comment on above: Performed By: #### A SAMUEL, FES, CBC, A1C, FERR, ADIFF #### [place] [address] #### B12, FOL, INSLN #### [place] [address] MCH (RBC) [Entitic mass] 28.8 pg Normal 27.0-33.0 [facility] Comment on above: Performed By: #### A SAMUEL, FES, CBC, A1C, FERR, ADIFF #### [place] [address] #### B12, FOL, INSLN #### [place] [address] MCHC 33.5 G/dL Normal 32.0-36.0 [facility] Comment on above: Performed By: #### A SAMUEL, FES, CBC, A1C, FERR, ADIFF #### [place] [address] #### B12, FOL, INSLN #### [place] [address] MCV (RBC) [Entitic vol] 85.8 fL Normal 80.0-99.0 [facility] Comment on above: Performed By: #### A SAMUEL, FES, CBC, A1C, FERR, ADIFF #### [address] [address] #### B12, FOL, INSLN #### [address] [address] Platelet 268 10 3/mcL Normal 150-450 [facility] Comment on above: Performed By: #### A SAMUEL, FES, CBC, A1C, FERR, ADIFF #### [place] [address] #### B12, FOL, INSLN #### [place] [address] Platelet mean volume (Bld) [Entitic vol] 8.7 fL Normal 6.6-10.5 [facility] Comment on above: Performed By: #### A SAMUEL, FES, CBC, A1C, FERR, ADIFF #### [place] [address] #### B12, FOL, INSLN #### [place] [address] RBC 4.33 10 6/mcL Normal 4.10-5.30 [facility] Comment on above: Performed By: #### A SAMUEL, FES, CBC, A1C, FERR, ADIFF #### [place] [address] #### B12, FOL, INSLN #### [place] [address] WBC 5.7 10 3/mcL Normal 4.5-10.8 [facility] Comment on above: Performed By: #### A SAMUEL, FES, CBC, A1C, FERR, ADIFF #### [place] [address] #### B12, FOL, INSLN #### [place] [address] CMPon 06-11-2024 Albumin Level 3.6 G/dL Normal 3.5-5.0 [facility] Comment on above: Performed By: #### A SAMUEL, FES, CBC, A1C, FERR, ADIFF #### [place] [address] #### B12, FOL, INSLN #### [place] [address] Albumin/Globulin [Mass ratio] 0.9 {ratio} Low 1.1-2.5 [facility] Comment on above: Performed By: #### A SAMUEL, FES, CBC, A1C, FERR, ADIFF #### [place] [address] #### B12, FOL, INSLN #### [place] [address] ALP [Catalytic activity/Vol] 81 U/L Normal 40-135 [facility] Comment on above: Performed By: #### A SAMUEL, FES, CBC, A1C, FERR, ADIFF #### [place] [address] #### B12, FOL, INSLN #### [place] [address] ALT [Catalytic activity/Vol] 19 U/L Normal 14-59 [facility] Comment on above: Performed By: #### A SAMUEL, FES, CBC, A1C, FERR, ADIFF #### [place] [address] #### B12, FOL, INSLN #### [place] [address] AST [Catalytic activity/Vol] 12 U/L Normal 10-40 [facility] Comment on above: Performed By: #### A SAMUEL, FES, CBC, A1C, FERR, ADIFF #### [place] [address] #### B12, FOL, INSLN #### [place] [address] Bili Total 0.2 mg/dL Normal 0.2-1.0 [facility] Comment on above: Result Comment: Use of this assay is not recommended for patients undergoing treatment with eltrombopag due to the potential for falsely elevated results. Performed By: #### A SAMUEL, FES, CBC, A1C, FERR, ADIFF #### [address] [address] #### B12, FOL, INSLN #### [address] [address] BUN/Creatinine Ratio 14 ratio Normal 7-27 [facility] Comment on above: Performed By: #### A SAMUEL, FES, CBC, A1C, FERR, ADIFF #### [address] [address] #### B12, FOL, INSLN #### [address] [address] Calcium [Mass/Vol] 9.2 mg/dL Normal 8.4-10.2 [facility] Comment on above: Performed By: #### A SAMUEL, FES, CBC, A1C, FERR, ADIFF #### [address] [address] #### B12, FOL, INSLN #### [address] [address] Chloride [Moles/Vol] 104 mmol/L Normal 98-107 [facility] Comment on above: Performed By: #### A SAMUEL, FES, CBC, A1C, FERR, ADIFF #### [place] [address] #### B12, FOL, INSLN #### [address] [address] CO2 [Moles/Vol] 30 mmol/L High 22-29 [facility] Comment on above: Performed By: #### A SAMUEL, FES, CBC, A1C, FERR, ADIFF #### [place] [address] #### B12, FOL, INSLN #### [address] [address] Creatinine [Mass/Vol] 0.83 mg/dL Normal 0.55-1.02 [facility] Comment on above: Result Comment: Test ing performed on Siemens Dimension EXL analyzer using a modified kinetic Stephanie technique. Performed By: #### A SAMUEL, FES, CBC, A1C, FERR, ADIFF #### [place] [address] #### B12, FOL, INSLN #### [address] [address] Electrolyte Balance 7.0 mEq/L Normal 4.0-15.0 [facility] Comment on above: Performed By: #### A SAMUEL, FES, CBC, A1C, FERR, ADIFF #### [place] [address] #### B12, FOL, INSLN #### [address] [address] Globulin 4.0 G/dL Normal [facility] Comment on above: Performed By: #### A SAMUEL, FES, CBC, A1C, FERR, ADIFF #### [place] [address] #### B12, FOL, INSLN #### [address] [address] Glucose [Mass/Vol] 104 mg/dL Normal 70-105 [facility] Comment on above: Performed By: #### A SAMUEL, FES, CBC, A1C, FERR, ADIFF #### [place] [address] #### B12, FOL, INSLN #### [address] [address] Potassium [Moles/Vol] 3.7 mmol/L Normal 3.5-5.1 [facility] Comment on above: Performed By: #### A SAMUEL, FES, CBC, A1C, FERR, ADIFF #### [address] [address] #### B12, FOL, INSLN #### [address] [address] Sodium [Moles/Vol] 141 mmol/L Normal 136-145 [facility] Comment on above: Performed By: #### A SAMUEL, FES, CBC, A1C, FERR, ADIFF #### [place] [address] #### B12, FOL, INSLN #### [place] [address] Total Protein 7.6 G/dL Normal 6.4-8.2 [facility] Comment on above: Performed By: #### A SAMUEL, FES, CBC, A1C, FERR, ADIFF #### [address] [address] #### B12, FOL, INSLN #### [place] [address] Urea nitrogen [Mass/Vol] 12 mg/dL Normal 7-18 [facility] Comment on above: Performed By: #### A SAMUEL, FES, CBC, A1C, FERR, ADIFF #### [place] [address] #### B12, FOL, INSLN #### [place] [address] CRPon 06-11-2024 C-Reactive Protein 0.6 mg/dL High 0.0-0.3 [facility] Comment on above: Performed By: #### A SAMUEL, FES, CBC, A1C, FERR, ADIFF #### [place] [address] #### B12, FOL, INSLN #### [place] [address] ESRon 06-11-2024 Erythrocyte Sed Rate 17 mm/hr Normal 0-20 [facility] Comment on above: Performed By: #### A SAMUEL, FES, CBC, A1C, FERR, ADIFF #### [place] [address] #### B12, FOL, INSLN #### [place] [address] FOLon 06-11-2024 Folate 16.60 ng/mL Normal 5.38-24.00 [facility] Comment on above: Performed By: #### A SAMUEL, FES, CBC, A1C, FERR, ADIFF #### [place] [address] #### B12, FOL, INSLN #### [place] [address] HAVMon 06-11-2024 Hep A IgM Ab Non-Reactive Normal Non-Reactive [facility] Comment on above: Performed By: #### A SAMUEL, FES, CBC, A1C, FERR, ADIFF #### [address] [address] #### B12, FOL, INSLN #### [place] [address] Hep A IgM Ab Int Normal [facility] Comment on above: Result Comment: No s erological evidence of a current Hepatitis A infection. See Interp Performed By: #### A SAMUEL, FES, CBC, A1C, FERR, ADIFF #### [place] [address] #### B12, FOL, INSLN #### [place] [address] LABORATORYOrdered By: SYSTEM SYSTEM on 06-11-2024 Albumin BCP dye [Mass/Vol] 3.6 G/dL Normal 3.5 - 5.0 G/dL AO ADM SS Albumin/Globulin [Mass ratio] 0.9 {ratio} Low 1.1 - 2.5 ratio AO ADM SS ALP [Catalytic activity/Vol] 81 U/L Normal 40 - 135 U/L AO ADM SS ALT With P-5'-P [Catalytic activity/Vol] 19 U/L Normal 14 - 59 U/L AO ADM SS AST With P-5'-P [Catalytic activity/Vol] 12 U/L Normal 10 - 40 U/L AO ADM SS Basophils (Bld) [#/Vol] 0.0 103/mcL Normal 0.0 - 0.2 10^3/mcL AO Workflow SS Basophils/100 WBC (Bld) 0.4 % Normal 0.0 - 2.5 % AO Workflow SS Bilirubin [Mass/Vol] 0.2 mg/dL Normal 0.2 - 1 .0 mg/dL AO ADM SS Comment on above: Interpretive Data: U se of this assay is not recommended for patients undergoing treatment with eltrombopag due to the potential for falsely elevated results. Calcium [Mass/Vol] 9.2 mg/dL Normal 8.4 - 10. 2 mg/dL AO ADM SS Chloride [Moles/Vol] 104 mmol/L Normal 98 - 10 7 mmol/L AO ADM SS CO2 [Moles/Vol] 30 mmol/L High 22 - 29 mmol/L AO ADM SS Cobalamin (Vitamin B12) [Mass/Vol] 515 pg/mL Normal 211 - 911 pg/mL AH ADM SS Creatinine [Mass/Vol] 0.83 mg/dL Normal 0.55 - 1.02 mg/dL AO ADM SS Comment on above: Interpretive Data: T esting performed on Siemens Dimension EXL analyzer using a modified kinetic Stephanie technique. CRP [Mass/Vol] 0.6 mg/dL High 0.0 - 0.3 mg/dL AO ADM SS Electrolyte Balance 7.0 mEq/L Normal 4.0 - 15 .0 mEq/L AO ADM SS Eosinophil, Absolute 0.1 103/mcL Normal 0.0 - 0 .7 10^3/mcL AO Workflow SS Eosinophils/100 WBC (Bld) 1.5 % Normal 0.0 - 7.0 % AO Workflow SS Erythrocyte distribution width (RBC) [Ratio] 13.7 % Normal 11.5 - 15.5 % AO Workflow SS Folate [Mass/Vol] 16.60 ng/mL Normal 5.38 - 24. 00 ng/mL ADM SS GFR/1.73 sq M.predicted among blacks MDRD (S/P/Bld) [Vol rate/Area] 102 ml/min/1.73sqm Invalid Interpretation Code AO Chemistry S Comment on above: Interpretive Data: GFR Population mean for , Non- Americans Ages 20-29 = 116 mL/min/1.73 sq.m. Ages 30-39 = 107 mL/min/1.73 sq.m. Ages 40-49 = 99 mL/min/1.73 sq.m. Ages 50-59 = 93 mL/min/1.73 sq.m. Ages 60-69 = 85 mL/min/1.73 sq.m. Ages 70+ = 75 mL/min/1.73 sq.m. Chronic Kidney Disease: Less than 60 mL/min/1.73 square meters End Stage Renal Disease: Less than 15 mL/min/1.73 square meters GFR/1.73 sq M.predicted among non-blacks MDRD (S/P/Bld) [Vol rate/Area] 84 ml/min/1.73sqm Invalid Interpretation Code AO Chemistry S Comment on above: Interpretive Data: GFR Population mean for , Non- Americans Ages 20-29 = 116 mL/min/1.73 sq.m. Ages 30-39 = 107 mL/min/1.73 sq.m. Ages 40-49 = 99 mL/min/1.73 sq.m. Ages 50-59 = 93 mL/min/1.73 sq.m. Ages 60-69 = 85 mL/min/1.73 sq.m. Ages 70+ = 75 mL/min/1.73 sq.m. Chronic Kidney Disease: Less than 60 mL/min/1.73 square meters End Stage Renal Disease: Less than 15 mL/min/1.73 square meters Globulin 4.0 G/dL Invalid Interpretation Code AO ADM SS Glucose [Mass/Vol] 104 mg/dL Normal 70 - 105 mg/dL AO ADM SS Hematocrit (Bld) [Volume fraction] 37.2 % Normal 34.0 - 46.0 % AO Workflow SS Hemoglobin (Bld) [Mass/Vol] 12.5 G/dL Normal 12.0 - 16.0 G/dL AO Workflow SS Lymphocytes (Bld) [#/Vol] 1.9 103/mcL Normal 0.9 - 4.3 10^3/mcL AO Workflow SS Lymphocytes/100 WBC (Bld) 34.1 % Normal 20.0 - 40.0 % AO Workflow SS MCH (RBC) [Entitic mass] 28.8 pg Normal 27.0 - 33.0 pg AO Workflow SS MCHC 33.5 G/dL Normal 32.0 - 36.0 G/dL AO Workflow SS MCV (RBC) [Entitic vol] 85.8 fL Normal 80.0 - 99.0 fL AO Workflow SS Monocytes (Bld) [#/Vol] 0.4 103/mcL Normal 0.1 - 1.4 10^3/mcL AO Workflow SS Monocytes/100 WBC (Bld) 7.3 % Normal 2.0 - 13.0 % AO Workflow SS Neutrophils (Bld) [#/Vol] 3.2 103/mcL Normal 2.3 - 8.1 10^3/mcL AO Workflow SS Neutrophils/100 WBC (Bld) 56.7 % Normal 50.0 - 75.0 % AO Workflow SS Platelet mean volume (Bld) [Entitic vol] 8.7 fL Normal 6.6 - 10.5 fL AO Workflow SS Platelets (Bld) [#/Vol] 268 103/mcL Normal 150 - 450 10^3/mcL AO Workflow SS Potassium [Moles/Vol] 3.7 mmol/L Normal 3.5 - 5.1 mmol/L AO ADM SS Protein [Mass/Vol] 7.6 G/dL Normal 6.4 - 8.2 G/dL AO ADM SS RBC (Bld) [#/Vol] 4.33 106/mcL Normal 4.10 - 5.3 0 10^6/mcL AO Workflow SS Sodium [Moles/Vol] 141 mmol/L Normal 136 - 145 mmol/L AO ADM SS Urea nitrogen [Mass/Vol] 12 mg/dL Normal 7 - 18 mg/dL AO ADM SS Urea nitrogen/Creatinine [Mass ratio] 14 ratio Normal 7 - 27 ratio AO ADM SS WBC (Bld) [#/Vol] 5.7 103/mcL Normal 4.5 - 10.8 10^3/mcL AO Workflow SS LABORATORYOrdered By: Cyrus Ballard on 06-11-2024 ESR Photometric method (Bld) [Velocity] 17 mm/hr Normal 0 - 20 mm/hr AO Man Heme SS LABORATORYOrdered By: Esther Caballero on 06-11-2024 HAV IgM IA Ql Non-Reactive (06/11/24 8:58 AM) Normal Non-Reactive AH ADM SS HAV IgM IA Ql No serological evide nce of a current Hepatitis A infection. Invalid Interpretation Code Chemistry S Hepatitis A AB, Totalon 05-22 HEPATITIS A,TOT Positive Abnormal Negative [facility] Comment on above: Result Comment: Comm ent: The HAV total antibody assay detects both IgG and IgM but does not differentiate between them. A negative result suggests susceptibility to infection. A positive result could be due to vaccination, previously resolved infection or active infection. Testing for HAV IgM should be performed if active HAV infection is suspected. [facility] offers profiles that will automatically reflex positive HAV total antibody results to IgM (e.g., panel #[id number] HAV Antibody w/ Rfx). Performed at: [address] [id number] [employer] Operator: Julian Wang PhD, Phone: [phone] Performed By: #### L 400.0001, L3100.5500, L501.3620, L3100.7000, L500.4050, L100.0100, L3100.7950, L101.9900 #### [facility] [address] [place], [address] Hepatitis B Core Ab Totalon 06-10-2024 HEP B CORE,TOT Negative Normal Negative [facility] Comment on above: Performed By: #### L 400.0001, L3100.5500, L501.3620, L3100.7000, L500.4050, L100.0100, L3100.7950, L101.9900 #### [facility] [address] [place], [address] CBC W/Diff, Automatedon 05-22 Absolute Lymph 2.03 X10 3/uL Normal 0.83-4.51 [facility] Comment on above: Performed By: #### L 400.0001, L3100.5500, L501.3620, L3100.7000, L500.4050, L100.0100, L3100.7950, L101.9900 #### [facility] [address] [place], [place], [id number] [phone] Absolute Neut 3.9 X10 3/uL Normal 2.0-7.7 [facility] Comment on above: Performed By: #### L 400.0001, L3100.5500, L501.3620, L3100.7000, L500.4050, L100.0100, L3100.7950, L101.9900 #### [facility] [address] [place], [address] Basophils/100 WBC (Bld) 0.5 % Normal 0-1 [facility] Comment on above: Performed By: #### L 400.0001, L3100.5500, L501.3620, L3100.7000, L500.4050, L100.0100, L3100.7950, L101.9900 #### [facility] [address] [place], [address] Eosinophils/100 WBC (Bld) 1.1 % Normal 0-5 [facility] Comment on above: Performed By: #### L 400.0001, L3100.5500, L501.3620, L3100.7000, L500.4050, L100.0100, L3100.7950, L101.9900 #### [facility] [address] [place], [address] Erythrocyte distribution width (RBC) [Ratio] 12.8 % Normal 11.6-14.6 [facility] Comment on above: Performed By: #### L 400.0001, L3100.5500, L501.3620, L3100.7000, L500.4050, L100.0100, L3100.7950, L101.9900 #### [facility] [address] [place], [address] Hematocrit (Bld) [Volume fraction] 38.1 % Normal 37-47 [facility] Comment on above: Performed By: #### L 400.0001, L3100.5500, L501.3620, L3100.7000, L500.4050, L100.0100, L3100.7950, L101.9900 #### [facility] [address] [place], [address] Hemoglobin (Bld) [Mass/Vol] 12.2 g/dL Normal 12.0-15.0 [facility] Comment on above: Performed By: #### L 400.0001, L3100.5500, L501.3620, L3100.7000, L500.4050, L100.0100, L3100.7950, L101.9900 #### [facility] [address] [place], [address] IG% 0.300 Normal 0.0-0.9 [facility] Comment on above: Result Comment: IG% - Immature Granulocytes (promyelocytes, myelocytes and metamyelocytes) > 1% indicates that a LEFT SHIFT is Present. Performed By: #### L 400.0001, L3100.5500, L501.3620, L3100.7000, L500.4050, L100.0100, L3100.7950, L101.9900 #### [facility] [address] [place], [address] Lymphocytes/100 WBC (Bld) 31.4 % Normal 19-41 [facility] Comment on above: Performed By: #### L 400.0001, L3100.5500, L501.3620, L3100.7000, L500.4050, L100.0100, L3100.7950, L101.9900 #### [facility] [address] [place], [address] MCH (RBC) [Entitic mass] 28.0 pg Normal 27.0-32.0 [facility] Comment on above: Performed By: #### L 400.0001, L3100.5500, L501.3620, L3100.7000, L500.4050, L100.0100, L3100.7950, L101.9900 #### [facility] [address] [place], [address] MCHC (RBC) [Mass/Vol] 32.0 g/dL Normal 32-36 [facility] Comment on above: Performed By: #### L 400.0001, L3100.5500, L501.3620, L3100.7000, L500.4050, L100.0100, L3100.7950, L101.9900 #### [facility] [address] [place], [address] MCV (RBC) [Entitic vol] 87.4 fL Normal 81-99 [facility] Comment on above: Performed By: #### L 400.0001, L3100.5500, L501.3620, L3100.7000, L500.4050, L100.0100, L3100.7950, L101.9900 #### [facility] [address] [place], [address] Monocytes/100 WBC (Bld) 6.2 % Normal 0-10 [facility] Comment on above: Performed By: #### L 400.0001, L3100.5500, L501.3620, L3100.7000, L500.4050, L100.0100, L3100.7950, L101.9900 #### [facility] [address] [place], [address] Neutrophils/100 WBC (Bld) 60.5 % Normal 47-70 [facility] Comment on above: Performed By: #### L 400.0001, L3100.5500, L501.3620, L3100.7000, L500.4050, L100.0100, L3100.7950, L101.9900 #### [facility] [address] [place], [address] Nucleated RBC (Bld) [#/Vol] 0 10*3/uL Normal 0-5 [facility] Comment on above: Performed By: #### L 400.0001, L3100.5500, L501.3620, L3100.7000, L500.4050, L100.0100, L3100.7950, L101.9900 #### [facility] [address] [place], [address] Platelet mean volume (Bld) [Entitic vol] 9.5 fL Normal 6.2-12.0 [facility] Comment on above: Performed By: #### L 400.0001, L3100.5500, L501.3620, L3100.7000, L500.4050, L100.0100, L3100.7950, L101.9900 #### [facility] [address] [place], [address] Platelets (Bld) [#/Vol] 289 10*3/uL Normal 150-450 [facility] Comment on above: Performed By: #### L 400.0001, L3100.5500, L501.3620, L3100.7000, L500.4050, L100.0100, L3100.7950, L101.9900 #### [facility] [address] [place], [address] RBC (Bld) [#/Vol] 4.36 10*6/uL Normal 4.2-5.4 [facility] Comment on above: Performed By: #### L 400.0001, L3100.5500, L501.3620, L3100.7000, L500.4050, L100.0100, L3100.7950, L101.9900 #### [facility] [address] [place], [address] RDW SD 40.8 fl Normal 35.1-43.9 [facility] Comment on above: Performed By: #### L 400.0001, L3100.5500, L501.3620, L3100.7000, L500.4050, L100.0100, L3100.7950, L101.9900 #### [facility] [address] [place], [address] WBC (Bld) [#/Vol] 6.5 10*3/uL Normal 4.4-11.0 [facility] Comment on above: Performed By: #### L 400.0001, L3100.5500, L501.3620, L3100.7000, L500.4050, L100.0100, L3100.7950, L101.9900 #### [facility] [address] [place], [address] Comprehensive Metabolic Prof [facility] 06-09-2024 Albumin [Mass/Vol] 3.8 g/dL Normal 3.2-5.0 [facility] Comment on above: Performed By: #### L 400.0001, L3100.5500, L501.3620, L3100.7000, L500.4050, L100.0100, L3100.7950, L101.9900 #### [facility] [address] [place], [address] Albumin/Globulin [Mass ratio] 1.0 {ratio} Normal 0.9-2.4 [facility] Comment on above: Performed By: #### L 400.0001, L3100.5500, L501.3620, L3100.7000, L500.4050, L100.0100, L3100.7950, L101.9900 #### [facility] [address] [place], [address] ALK P 79 U/L Normal 45-117 [facility] Comment on above: Performed By: #### L 400.0001, L3100.5500, L501.3620, L3100.7000, L500.4050, L100.0100, L3100.7950, L101.9900 #### [facility] [address] [place], [address] ALT [Catalytic activity/Vol] 23 U/L Normal 13-56 [facility] Comment on above: Performed By: #### L 400.0001, L3100.5500, L501.3620, L3100.7000, L500.4050, L100.0100, L3100.7950, L101.9900 #### [facility] [address] [place], [address] AST [Catalytic activity/Vol] 12 U/L Low 15-37 [facility] Comment on above: Performed By: #### L 400.0001, L3100.5500, L501.3620, L3100.7000, L500.4050, L100.0100, L3100.7950, L101.9900 #### [facility] [address] [place], [address] Bilirubin [Mass/Vol] 0.20 mg/dL Normal 0.20-1.00 [facility] Comment on above: Result Comment: For patients on eltrombopag therapy, use of Dimension [place] TBIL is not recommended. Performed By: #### L 400.0001, L3100.5500, L501.3620, L3100.7000, L500.4050, L100.0100, L3100.7950, L101.9900 #### [facility] [address] [place], [address] BUN/CRE 20.6 RATIO High 10-20 [facility] Comment on above: Performed By: #### L 400.0001, L3100.5500, L501.3620, L3100.7000, L500.4050, L100.0100, L3100.7950, L101.9900 #### [facility] [address] [place], [address] CA,Total 9.2 mg/dL Normal 8.5-10.1 [facility] Comment on above: Performed By: #### L 400.0001, L3100.5500, L501.3620, L3100.7000, L500.4050, L100.0100, L3100.7950, L101.9900 #### [facility] [address] [place], [address] Chloride [Moles/Vol] 106 mmol/L Normal 98-107 [facility] Comment on above: Performed By: #### L 400.0001, L3100.5500, L501.3620, L3100.7000, L500.4050, L100.0100, L3100.7950, L101.9900 #### [facility] [address] [place], [address] CO2 [Moles/Vol] 26.0 mmol/L Normal 21.0-32.0 [facility] Comment on above: Performed By: #### L 400.0001, L3100.5500, L501.3620, L3100.7000, L500.4050, L100.0100, L3100.7950, L101.9900 #### [facility] [address] [place], [place], [id number] ([phone]) Creatinine [Mass/Vol] 0.73 mg/dL Normal 0.55-1.02 [facility] Comment on above: Result Comment: The validity of the calculated GFR GFRAA in patients over 70 years has not been determined. Clinical correlation is essential. Performed By: #### L 400.0001, L3100.5500, L501.3620, L3100.7000, L500.4050, L100.0100, L3100.7950, L101.9900 #### [facility] [address] [place], [place], [id number] (057) EST GFR - AA 125 mL/min Normal >60 [facility] Comment on above: Result Comment: Afri can [place] GFR Calc Performed By: #### L 400.0001, L3100.5500, L501.3620, L3100.7000, L500.4050, L100.0100, L3100.7950, L101.9900 #### [facility] [address] [place], [place], [id number] (741) GAP 4 Low 5-15 [facility] Comment on above: Performed By: #### L 400.0001, L3100.5500, L501.3620, L3100.7000, L500.4050, L100.0100, L3100.7950, L101.9900 #### [facility] [address] [place], [address] GFR/1.73 sq M.predicted among non-blacks MDRD (S/P/Bld) [Vol rate/Area] 103 mL/min/{1.73_m2} Normal >60 [facility] Comment on above: Result Comment: Non- GFR Calc Performed By: #### L 400.0001, L3100.5500, L501.3620, L3100.7000, L500.4050, L100.0100, L3100.7950, L101.9900 #### [facility] [address] [place], [address] Globulin (S) [Mass/Vol] 4.0 g/dL Normal 2.2-4.2 [facility] Comment on above: Performed By: #### L 400.0001, L3100.5500, L501.3620, L3100.7000, L500.4050, L100.0100, L3100.7950, L101.9900 #### [facility] [address] [place], [address] Glucose [Mass/Vol] 109 mg/dL High 74-106 [facility] Comment on above: Result Comment: Fast ing Glucose result from 100 to 125 mg/dL suggests IMPAIRED HOMEOSTASIS per A.D.A. criteria. Performed By: #### L 400.0001, L3100.5500, L501.3620, L3100.7000, L500.4050, L100.0100, L3100.7950, L101.9900 #### [facility] [address] [place], [address] Potassium [Moles/Vol] 3.8 mmol/L Normal 3.5-5.1 [facility] Comment on above: Performed By: #### L 400.0001, L3100.5500, L501.3620, L3100.7000, L500.4050, L100.0100, L3100.7950, L101.9900 #### [facility] [address] [place], [address] Sodium [Moles/Vol] 136 mmol/L Normal 136-145 [facility] Comment on above: Performed By: #### L 400.0001, L3100.5500, L501.3620, L3100.7000, L500.4050, L100.0100, L3100.7950, L101.9900 #### [facility] [address] [place], [address] T PROT 7.8 g/dL Normal 6.4-8.2 [facility] Comment on above: Performed By: #### L 400.0001, L3100.5500, L501.3620, L3100.7000, L500.4050, L100.0100, L3100.7950, L101.9900 #### [facility] [address] [place], [address] Urea nitrogen [Mass/Vol] 15 mg/dL Normal 7-18 [facility] Comment on above: Performed By: #### L 400.0001, L3100.5500, L501.3620, L3100.7000, L500.4050, L100.0100, L3100.7950, L101.9900 #### [facility] [address] [place], [address] Gastroenterology Visit Repor ton 06-09-2024 Gastroenterology Visit Report [facility] [address] [place] [address] OFFICE VISIT Date of Service: 06/09/24 MR#: [id number] Acct: [id number] Name: MATT CALABRESE LINCOLN Rep #: [id number] : 2000 Provider: ORIN tate Age/Sex: 23/F Location: [facility] [place] Status: Signed Intake Vital Signs 12/19/23 16:17 05/08/24 20:23 06/09/24 09:26 Height 5 ft 3 in 5 ft 3 in 5 ft 3 in Weight: 233 lb BMI 41.3 BP 114/75 Respiration 16 Pulse 84 Pulse Oximetry (%) 96 Oxygen Delivery Method room air Intake Visit Reasons: Nausea/vomiting Chief Complaint: stomach issues for a long time 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 Is patient in pain?: No Allergies amoxicillin Allergy (Verified 06/09/24 09:16) Upset Stomach erythromycin base Allergy (Verified 06/09/24 09:16) Upset Stomach Penicillins (PCN) Allergy (Verified 06/09/24 09:16) Upset Stomach azithromycin (From Zithromax) Adverse Reaction (Intermediate, Verified 06/09/24 09:16) Hives metronidazole (From Flagyl) Adverse Reaction (Intermediate, Verified 06/09/24 09:16) Rash sulfamethoxazole (From Bactrim) Adverse Reaction (Intermediate, Verified 06/09/24 09:16) Rash trimethoprim (From Bactrim) Adverse Reaction (Intermediate, Verified 06/09/24 09:16) Rash trazodone Adverse Reaction (Unknown, Verified 06/09/24 09:16) suicidal ideation Medications ???Medication ???Instructions ???Recorded ???Confirmed ???Type ergocalciferol (vitamin D2) 1,250 1,250 mcg PO QWEEK 06/09/24 06/09/24 History mcg (50,000 unit) capsule ferrous sulfate 325 mg (65 mg 325 mg PO QDAY 06/09/24 06/09/24 History iron) tablet flax seed oil PO 06/09/24 History hydroxyzine HCl 25 mg tablet 25 mg PO .QID PRN anxiety 06/09/24 06/09/24 History magnesium hydroxide 400 mg (170 mg 400 mg PO QD-BID 06/09/24 06/09/24 History magnesium) chewable tablet naltrexone 50 mg tablet 50 mg PO QDAY 06/09/24 06/09/24 History ondansetron HCl 4 mg tablet 4 mg PO Q8H PRN 06/09/24 06/09/24 History pantoprazole 40 mg tablet,delayed 40 mg PO QDAY 06/09/24 06/09/24 History release polyethylene glycol 3350 17 17 g PO ONCE #850 grams 06/09/24 06/09/24 Rx gram/dose oral powder (Miralax) prazosin 2 mg capsule 2 mg PO QHS 06/09/24 06/09/24 History quetiapine 100 mg tablet (Seroquel) 100 mg PO QHS 06/09/24 06/09/24 History sennosides 8.6 mg capsule (senna) 8.6 mg PO BID 06/09/24 06/09/24 History sumatriptan succinate 25 mg tablet See Rx Instructions PO .COMPLEX 06/09/24 06/09/24 History wheat dextrin 3 gram/4 gram oral 1.5 g PO BID #500 grams 06/09/24 06/09/24 Rx powder (Benefiber Sugar Free (dextrin)) Nurse's Note: Has had stomach problems her whole life. The last three years the nausea has gotten worse. Lately she has been throwing up over random foods. Post surgical constipation x6 weeks. Prior to surgery, constipation was her norm. Has a lot of liver pain as well. [facility] Medical History (Updated 06/09/24 @ 10:08 by ORIN Willis) Right wrist sprain Left knee pain Strain of Achilles tendon Contact with or exposure to other viral diseases URI (upper respiratory infection) Sprain of left foot Left ankle sprain Contusion of left knee Anxiety Surgical History (Updated 06/09/24 @ 07:22 by Usha Rosen) Hx of breast reduction, elective Hx of cholecystectomy Family History (Updated 06/09/24 @ 07:17 by Usha Rosen) Mother Alcohol abuse Breast cancer Hypertension Muscle weakness Substance abuse Father Alcohol abuse Hypertension Grandmother Breast cancer Cancer Sister Hypertension Social History (Updated 06/09/24 @ 07:14 by Usha Rosen) sexually active: No Smoking Status: Never smoker alcohol intake: never substance use type: does not use HPI HPI Chief Complaint: stomach issues for a long time Details: MATT CALABRESE, is a 23 F who presents to the office today for 23y/o female presents for consultation with complaints of nausea and vomiting. She is 6 weeks s/p hysterectomy and c/o constipation. EGD 09/14/2023 neg. Duckworth's, H. pylori and celiac sprue Erosive gastropathy with no bleeding and no stigmata of recent bleeding. CT 05/04/2024 Mild hypodensity of the liver relative to the spleen which could reflect underlying hepatic steatosis. MBS 03/07/2024 Esophageal Clearance In An Upright Position: Esophageal retention, Additional Findings Esophageal Clearance Additional Findings: Slow motility, Delayed esophageal emptying (with pudding and solids; cleared with liquid wash) GES 12/07/2023 NORMAL RATE OF GASTRIC EMPTYING OF A SOLID MEAL ABD US 12/03/2023 unremarkable - this report notes that her GB was normal CCX November 2018 CBC, Fe panel Ferritin 04/14/2024 WNL - she is s/p hysterectomy - for heavy menses - c/o constipation x6 weeks (more content not included)... Normal [facility] Hepatitis B Surface Antibody on 06-09-2024 HEP B Surf Ab Reactive Normal [facility] Comment on above: Order Comment: Reaso n for Exam: fatty liver Result Comment: Non Reactive: Inconsistent with immunity less than <10 mIU/mL Reactive: Consistent with immunity greater than or equal to 10 mIU/mL Performed By: #### L 400.0001, L3100.5500, L501.3620, L3100.7000, L500.4050, L100.0100, L3100.7950, L101.9900 #### [facility] [address] [place], [address] Hepatitis B Surface Antigeno n 06-09-2024 HEP B Surf Ag Non-Reactive Normal Nonreactive [facility] Comment on above: Order Comment: Reaso n for Exam: fatty liver Performed By: #### L 400.0001, L3100.5500, L501.3620, L3100.7000, L500.4050, L100.0100, L3100.7950, L101.9900 #### [facility] [address] [place], [address] Hepatitis C Antibodyon 06-09 Hepatitis C AB Non-Reactive Normal Nonreactive [facility] Comment on above: Order Comment: Urine , Random Result Comment: Non Reactive: < 0.8 Equivocal: >/= 0.8 to < 1.0 Reactive: >/= 1.0 The CDC requires that a reactive/equivocal HCV antibody result be sent out for confirmation. HCV Quant by PCR testing. Performed By: #### L 400.0001, L3100.5500, L501.3620, L3100.7000, L500.4050, L100.0100, L3100.7950, L101.9900 #### [facility] [address] [place], [place], [id number] Re-Evaluation - PT (1)on Re-Evaluation - PT (1) [facility] [address] [place] [address] / REEVALUATION / MEDICARE RECERTIFICATION PHYSICAL THERAPY MR#: [id number] Acct: [id number] Name: MATT CALABRESE Rep #: [id number] : 2000 23 From: Evans Matthews PT, ATC Referring Dr.: Dr. Aury Tristan DO Status:REG RCR Insurance: [facility] [employer] SELF PAY INSURANCE Re-Evaluation Intro: Dr. Aury Tristan DO, It has been my pleasure to treat MATT CALABRESE over the last 46 visits for Knee and hip pain.. Please see the progress note below for an update on the physical therapy plan of care! Subjective Subjective: I feel like we lost a lot after my surgery Objective Objective/Function: L knee pain 2/10, LBP 5/10 L knee ROM: 0-5-120 degrees L knee MMT: flex= 39, ext= 17 #F Core strength: Pt is unable to perform a bridge full ROM secondary to core weakness Plan Plan Plan: core strengthening, L LE strengthening, balance and proprio, nustep, and hep Balance/Gait/Functional tests Balance/Special Test Scores Lower Extremity Functional Score: 35 Goals Goals Goal 1:: Decrease LBP x 50% to aid with IADL's Goal Time Frame: 4-6 Weeks Goal 2:: Increase L knee ext strength x 20#F to aid with stair negotiation Goal Time Frame: 4-6 Weeks Goal 3:: Pt will be able to perform 10 bridges with full ROM to demonstrate improved core stability Goal Time Frame: 4-6 Weeks Goal 4:: I with HEP Goal Time Frame: 4-6 Weeks Anticipated Interventions Re-Evaluation Ending Re-evaluation ending: Please do not hesitate to contact me at [phone] by phone or if you have questions or concerns regarding this new plan of care! Sincerely, Evans Matthews, PT, ATC 06/04/24 1107 CC: [employer] ASSISTANT[employer]uate Priest; Dr. Aury Tristan DO [facility] Signed For Medicare only, by signing this I certify the plan of care. ___ Physicians Signature Date Normal [facility] No Panel Informationon 05-19 Culture Urine 10,000 - 50,000 cfu/ ml Mixed growth consistent with normal urogenital sandra. [facility] Work Phone: Emergency Department Summary on 05-08-2024 Emergency Department Summary [facility] Medical Records Department [address] [place] [address] Emergency Department Summary 05/08/24 MR#: [id number] Acct: [id number] Name: MATT CALABRESE HELIO Rep #: [id number] : 2000 23 From: Eugenio Muniz MD PCP: Jack Priest NP-C Status:DEP ER Location: ED HPI History of Present Illness Chief Complaint: Upper Extremity Injury Narrative Narrative: Patient a 23-year-old female with recent history of hysterectomy 1.5 weeks ago, started have pain to her right bicep. Patient is concerned that she might have a DVT. 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 Patient states that the pain is getting worse she says it feels like it is burning, is here for evaluation. She denies any fever chills, chest pain, nausea PFSH [facility] Medical History (Updated 05/08/24 @ 20:49 by ORIN Cross) Right wrist sprain Left knee pain Strain of Achilles tendon Contact with or exposure to other viral diseases URI (upper respiratory infection) Sprain of left foot Left ankle sprain Contusion of left knee Anxiety Home Medications ???Medication ???Instructions ???Recorded ???Last Taken ???Type CBD Oil topical 01/18/23 Unknown History ibuprofen 600 mg tablet 600 mg PO Q8H PRN pain 01/18/23 Unknown History cholecalciferol (vitamin D3) 1,250 1,250 mcg PO QWEEK 10/05/23 Unknown History mcg (50,000 unit) capsule hydroxyzine HCl 25 mg tablet 12.5 mg PO PRN anxiety 10/05/23 Unknown History sertraline 100 mg tablet 100 mg PO QDAY 10/05/23 Unknown History valacyclovir 500 mg tablet 500 mg PO QDAY 10/05/23 Unknown History etonogestrel 68 mg subdermal 1 implant subdermal ONCE 12/11/23 Unknown History implant (Nexplanon) prednisone 10 mg tablet 10 mg PO DAILY #30 tabs 12/19/23 Unknown Rx Allergy/AdvReac Type Severity Reaction Status Date / Time amoxicillin Allergy Upset Verified 05/08/24 20:23 Stomach erythromycin base Allergy Upset Verified 05/08/24 20:23 Stomach Penicillins (PCN) Allergy Upset Verified 05/08/24 20:23 Stomach trazodone AdvReac Unknown suicidal Verified 05/08/24 20:23 ideation Social History Smoking Status: Never smoker substance use type: does not use ROS ROS ED ROS Narrative Constitutional: Negative for fever, chills, weight loss, weakness Eyes: Negative for vision loss, vision change, double vision ENT: Negative for any sore throat, ear pain, congestion Cardiovascular: Negative for any chest pain, tightness, palpitations Respiratory: Negative for any cough, sputum production, hemoptysis, dyspnea, dyspnea on exertion, orthopnea Gastrointestinal: Negative for any abdominal pain, nausea, vomiting, diarrhea, constipation, blood in stool, blood in vomit : Negative for any urinary frequency, dysuria, retention, blood in urine Muscle skeletal: Negative for any neck pain, back pain. Pain to the right bicep Neurological: Negative for any headache, syncope, dizziness Skin: Negative for any rashes, itching, abrasions, lacerations Psychiatric: Negative for any depression, anxiety, stress, suicidal ideation, homicidal ideation Hematologic: Negative for any excessive bruising, easy bleeding EXAM Physical Exam Narrative Exam Narrative: Vital signs reviewed. Extremities: No peripheral edema, no signs of gross trauma or deformity. Active full range of motion of all extremities. Patient has no swelling, there is no significant erythema. Pain is mostly on the anterior bicep. No evidence of tendinitis. No evidence of cellulitis. +2 radial pulse Neuro: Cranial nerves II through XII intact, no focal neurological deficits. Skin: Clean dry and intact with no rash, purpura, petechiae, vesicles or pustules. Backs/flank: No CVA tenderness, no midline spinal tenderness, no deformity. Psych: Normal mood and affect. No SI, HI or acute psychosis. Const Vital Signs: 05/08/24 20:23 Temperature 97 F L Temperature Source Temporal Pulse Rate 104 H Respiratory Rate 18 Blood Pressure 137/75 H Blood Pressure Mean 95 Pulse Ox 100 Oxygen Delivery Method Room Air Positive well nourished and well developed General Appearance ED: well developed MDM MDM Treatment and Re-Evaluation Narrative: Differential diagnosis includes however is not limited to: DVT, superficial thrombophlebitis, muscle strain, tendinitis Patient appears to be in no obvious respiratory distress vital signs are stable, nontoxic-appearing. Presenting to the emerged part with complaints of right arm pain. Patient's biggest concern is a DVT of the right arm. 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 Patient is concerned because she also had a surgery 1.5 weeks ago. I have lo (more content not included)... Normal [facility] .Auto Diffon 05-04-2024 Basophil, Absolute 0.1 10 3/mcL Normal 0.0-0.2 [facility] Comment on above: Performed By: #### A SAMUEL, FES, CBC, A1C, FERR, ADIFF #### [address] [address] #### B12, FOL, INSLN #### [address] [address] Basophils/100 WBC (Bld) 0.5 % Normal 0.0-2.5 [facility] Comment on above: Performed By: #### A SAMUEL, FES, CBC, A1C, FERR, ADIFF #### [address] [address] #### B12, FOL, INSLN #### [address] [address] Eosinophil, Absolute 0.1 10 3/mcL Normal 0.0-0.7 [facility] Comment on above: Performed By: #### A SAMUEL, FES, CBC, A1C, FERR, ADIFF #### [place] [address] #### B12, FOL, INSLN #### [address] [address] Eosinophils/100 WBC (Bld) 0.6 % Normal 0.0-7.0 [facility] Comment on above: Performed By: #### A SAMUEL, FES, CBC, A1C, FERR, ADIFF #### [place] [address] #### B12, FOL, INSLN #### [address] [address] Lymphocyte, Absolute 1.3 10 3/mcL Normal 0.9-4.3 [facility] Comment on above: Performed By: #### A SAMUEL, FES, CBC, A1C, FERR, ADIFF #### [place] [address] #### B12, FOL, INSLN #### [address] [address] Lymphocytes/100 WBC (Bld) 9.7 % Low 20.0-40.0 [facility] Comment on above: Performed By: #### A SAMUEL, FES, CBC, A1C, FERR, ADIFF #### [place] [address] #### B12, FOL, INSLN #### [address] [address] Monocyte, Absolute 0.8 10 3/mcL Normal 0.1-1.4 [facility] Comment on above: Performed By: #### A SAMUEL, FES, CBC, A1C, FERR, ADIFF #### [place] [address] #### B12, FOL, INSLN #### [address] [address] Monocytes/100 WBC (Bld) 5.7 % Normal 2.0-13.0 [facility] Comment on above: Performed By: #### A SAMUEL, FES, CBC, A1C, FERR, ADIFF #### [address] [address] #### B12, FOL, INSLN #### [address] [address] Neutrophils/100 WBC (Bld) 83.5 % High 50.0-75.0 [facility] Comment on above: Performed By: #### A SAMUEL, FES, CBC, A1C, FERR, ADIFF #### [address] [address] #### B12, FOL, INSLN #### [address] [address] .GFRon 05-04-2024 GFR 110 ml/min/1.73sqm [facility] Comment on above: Result Comment: GFR Population mean for , Non- Americans Ages 20-29 = 116 mL/min/1.73 sq.m. Ages 30-39 = 107 mL/min/1.73 sq.m. Ages 40-49 = 99 mL/min/1.73 sq.m. Ages 50-59 = 93 mL/min/1.73 sq.m. Ages 60-69 = 85 mL/min/1.73 sq.m. Ages 70+ = 75 mL/min/1.73 sq.m. Chronic Kidney Disease: Less than 60 mL/min/1.73 square meters End Stage Renal Disease: Less than 15 mL/min/1.73 square meters Performed By: #### A SAMUEL, FES, CBC, A1C, FERR, ADIFF #### [address] [address] #### B12, FOL, INSLN #### [address] [address] GFR Non- 91 ml/min/1.73sqm [facility] Comment on above: Result Comment: GFR Population mean for , Non- Americans Ages 20-29 = 116 mL/min/1.73 sq.m. Ages 30-39 = 107 mL/min/1.73 sq.m. Ages 40-49 = 99 mL/min/1.73 sq.m. Ages 50-59 = 93 mL/min/1.73 sq.m. Ages 60-69 = 85 mL/min/1.73 sq.m. Ages 70+ = 75 mL/min/1.73 sq.m. Chronic Kidney Disease: Less than 60 mL/min/1.73 square meters End Stage Renal Disease: Less than 15 mL/min/1.73 square meters Performed By: #### A SAMUEL, FES, CBC, A1C, FERR, ADIFF #### [place] [address] #### B12, FOL, INSLN #### [place] [address] .MDWon 05-04-2024 Monocyte Distribution Width 16.15 Normal 0.00-20.00 [facility] Comment on above: Result Comment: For ED adult patients suspected of sepsis, MDW<=20.0 does not rule out sepsis or risk of sepsis Performed By: #### A SAMUEL, FES, CBC, A1C, FERR, ADIFF #### [place] [address] #### B12, FOL, INSLN #### [place] [address] .NEUABSon 05-04-2024 Neutrophil, Absolute 11.4 10 3/mcL High 2.3-8.1 A [facility] Comment on above: Performed By: #### A SAMUEL, FES, CBC, A1C, FERR, ADIFF #### [place] [address] #### B12, FOL, INSLN #### [place] [address] CBCon 05-04-2024 Erythrocyte distribution width (RBC) [Ratio] 13.4 % Normal 11.5-15.5 [facility] Comment on above: Performed By: #### A SAMUEL, FES, CBC, A1C, FERR, ADIFF #### [place] [address] #### B12, FOL, INSLN #### [place] [address] Hematocrit (Bld) [Volume fraction] 37.2 % Normal 34.0-46.0 [facility] Comment on above: Performed By: #### A SAMUEL, FES, CBC, A1C, FERR, ADIFF #### [place] [address] #### B12, FOL, INSLN #### [place] [address] Hgb 12.4 G/dL Normal 12.0-16.0 [facility] Comment on above: Performed By: #### A SAMUEL, FES, CBC, A1C, FERR, ADIFF #### [place] [address] #### B12, FOL, INSLN #### [place] [address] MCH (RBC) [Entitic mass] 28.8 pg Normal 27.0-33.0 [facility] Comment on above: Performed By: #### A SAMUEL, FES, CBC, A1C, FERR, ADIFF #### [place] [address] #### B12, FOL, INSLN #### [place] [address] MCHC 33.3 G/dL Normal 32.0-36.0 [facility] Comment on above: Performed By: #### A SAMUEL, FES, CBC, A1C, FERR, ADIFF #### [place] [address] #### B12, FOL, INSLN #### [place] [address] MCV (RBC) [Entitic vol] 86.3 fL Normal 80.0-99.0 [facility] Comment on above: Performed By: #### A SAMUEL, FES, CBC, A1C, FERR, ADIFF #### [place] [address] #### B12, FOL, INSLN #### [address] [address] Platelet 266 10 3/mcL Normal 150-450 [facility] Comment on above: Performed By: #### A SAMUEL, FES, CBC, A1C, FERR, ADIFF #### [address] [address] #### B12, FOL, INSLN #### [place] [address] Platelet mean volume (Bld) [Entitic vol] 8.2 fL Normal 6.6-10.5 [facility] Comment on above: Performed By: #### A SAMUEL, FES, CBC, A1C, FERR, ADIFF #### [place] [address] #### B12, FOL, INSLN #### [place] [address] RBC 4.31 10 6/mcL Normal 4.10-5.30 [facility] Comment on above: Performed By: #### A SAMUEL, FES, CBC, A1C, FERR, ADIFF #### [place] [address] #### B12, FOL, INSLN #### [place] [address] WBC 13.6 10 3/mcL High 4.5-10.8 [facility] Comment on above: Performed By: #### A SAMUEL, FES, CBC, A1C, FERR, ADIFF #### [place] [address] #### B12, FOL, INSLN #### [place] [address] CMPon 05-04-2024 Albumin Level 3.7 G/dL Normal 3.5-5.0 [facility] Comment on above: Performed By: #### A SAMUEL, FES, CBC, A1C, FERR, ADIFF #### [place] [address] #### B12, FOL, INSLN #### [place] [address] Albumin/Globulin [Mass ratio] 1.1 {ratio} Normal 1.1-2.5 [facility] Comment on above: Performed By: #### A SAMUEL, FES, CBC, A1C, FERR, ADIFF #### [place] [address] #### B12, FOL, INSLN #### [place] [address] ALP [Catalytic activity/Vol] 81 U/L Normal 40-135 [facility] Comment on above: Performed By: #### A SAMUEL, FES, CBC, A1C, FERR, ADIFF #### [place] [address] #### B12, FOL, INSLN #### [place] [address] ALT [Catalytic activity/Vol] 33 U/L Normal 14-59 [facility] Comment on above: Performed By: #### A SAMUEL, FES, CBC, A1C, FERR, ADIFF #### [place] [address] #### B12, FOL, INSLN #### [place] [address] AST [Catalytic activity/Vol] 16 U/L Normal 10-40 [facility] Comment on above: Performed By: #### A SAMUEL, FES, CBC, A1C, FERR, ADIFF #### [place] [address] #### B12, FOL, INSLN #### [place] [address] Bili Total 0.2 mg/dL Normal 0.2-1.0 [facility] Comment on above: Result Comment: Use of this assay is not recommended for patients undergoing treatment with eltrombopag due to the potential for falsely elevated results. Performed By: #### A SAMUEL, FES, CBC, A1C, FERR, ADIFF #### [place] [address] #### B12, FOL, INSLN #### [address] [address] BUN/Creatinine Ratio 19 ratio Normal 7-27 [facility] Comment on above: Performed By: #### A SAMUEL, FES, CBC, A1C, FERR, ADIFF #### [address] [address] #### B12, FOL, INSLN #### [address] [address] Calcium [Mass/Vol] 9.1 mg/dL Normal 8.4-10.2 [facility] Comment on above: Performed By: #### A SAMUEL, FES, CBC, A1C, FERR, ADIFF #### [place] [address] #### B12, FOL, INSLN #### [address] [address] Chloride [Moles/Vol] 105 mmol/L Normal 98-107 [facility] [facility] Comment on above: Performed By: #### A SAMUEL, FES, CBC, A1C, FERR, ADIFF #### [place] [address] #### B12, FOL, INSLN #### [address] [address] CO2 [Moles/Vol] 27 mmol/L Normal 22-29 [facility] Comment on above: Performed By: #### A SAMUEL, FES, CBC, A1C, FERR, ADIFF #### [place] [address] #### B12, FOL, INSLN #### [address] [address] Creatinine [Mass/Vol] 0.78 mg/dL Normal 0.55-1.02 [facility] Comment on above: Result Comment: Test ing performed on Siemens Dimension EXL analyzer using a modified kinetic Stephanie technique. Performed By: #### A SAMUEL, FES, CBC, A1C, FERR, ADIFF #### [place] [address] #### B12, FOL, INSLN #### [address] [address] Electrolyte Balance 11.0 mEq/L Normal 4.0-15.0 [facility] Comment on above: Performed By: #### A SAMUEL, FES, CBC, A1C, FERR, ADIFF #### [address] [address] #### B12, FOL, INSLN #### [address] [address] Globulin 3.5 G/dL Normal [facility] Comment on above: Performed By: #### A SAUMEL, FES, CBC, A1C, FERR, ADIFF #### [place] [address] #### B12, FOL, INSLN #### [address] [address] Glucose [Mass/Vol] 106 mg/dL High 70-105 [facility] Comment on above: Performed By: #### A SAMUEL, FES, CBC, A1C, FERR, ADIFF #### [address] [address] #### B12, FOL, INSLN #### [address] [address] Potassium [Moles/Vol] 4.0 mmol/L Normal 3.5-5.1 [facility] Comment on above: Performed By: #### A SAMUEL, FES, CBC, A1C, FERR, ADIFF #### [place] [address] #### B12, FOL, INSLN #### [address] [address] Sodium [Moles/Vol] 143 mmol/L Normal 136-145 [facility] Comment on above: Performed By: #### A SAMUEL, FES, CBC, A1C, FERR, ADIFF #### [address] [address] #### B12, FOL, INSLN #### [address] [address] Total Protein 7.2 G/dL Normal 6.4-8.2 [facility] Comment on above: Performed By: #### A SAMUEL, FES, CBC, A1C, FERR, ADIFF #### [place] [id number] [place], [place] [address] #### B12, FOL, INSLN #### [facility] [address] [place] [address] Urea nitrogen [Mass/Vol] 15 mg/dL Normal 7-18 [facility] Comment on above: Performed By: #### A SAMUEL, FES, CBC, A1C, FERR, ADIFF #### [place] [id number] [place], [place] [address] #### B12, FOL, INSLN #### [facility] [address] [place] [address] [address] ABD/PELVIS W/ IV CONTRAST ONLYon 05-04-2024 CT ABD/PELVIS W/ IV CONTRAST ONLY ORIGINAL EXAMINATION: CT OF THE ABDOMEN AND PELVIS WITH CONTRAST 05/04/2024 7:36 pm TECHNIQUE: CT of the abdomen and pelvis was performed with the administration of intravenous contrast. Multiplanar reformatted images are provided for review. Automated exposure control, iterative reconstruction, and/or weight based adjustment of the mA/kV was utilized to reduce the radiation dose to as low as reasonably achievable. COMPARISON: None. HISTORY: ORDERING SYSTEM PROVIDED HISTORY: Reason for Exam: pain FINDINGS: Lower Chest: Multiple pulmonary nodules at the lung bases, measuring up to 1 cm in size. Organs: No acute findings. Cholecystectomy. Mild hypodensity of the liver relative to the spleen which could reflect underlying hepatic steatosis. GI/Bowel: No bowel obstruction or ascites. Pelvis: There is a small gas-filled tract between the inferior aspect of the rectosigmoid junction and the vaginal cuff, concerning for a fistula or sinus tract. Hysterectomy. Bladder unremarkable. Peritoneum/Retroperitoneu m: Nonaneurysmal abdominal aorta. No enlarged lymph nodes. Bones/Soft Tissues: No acute osseous abnormality. IMPRESSION: Small gas-filled tract between the inferior aspect of the rectosigmoid junction and the vaginal cuff, concerning for a fistula or sinus tract. Correlate with vaginal output. Multiple pulmonary nodules at the lung bases measuring up to 1 cm, with differential including systemic atypical infectious or inflammatory processes, although ultimately malignancy is in the differential. Correlate with patient history and any prior cross-sectional imaging. Further investigation may be warranted. Interpreted by: Abhi Mims Preliminary Report By: Abhi Mims Electronically signed By Ahbi Mims Dictated Date: 05/04/2024 7:41:39 PM Prelim Date: 05/04/2024 7:47:35 PM Sign Date: 05/04/2024 7:47:35 PM Ordering Provider: GORAN BOWENS Normal [facility] LIPon 05-04-2024 Lipase Level 23 U/L Normal 16-77 [facility] Comment on above: Performed By: #### A SAMUEL, FES, CBC, A1C, FERR, ADIFF #### [address] [address] #### B12, FOL, INSLN #### [place] [address] UAon 05-04-2024 Color (U) Yellow Normal [facility] Comment on above: Performed By: #### G FR, BMP #### [address] [address] Glucose (U) [Mass/Vol] Negative Normal Negative [facility] Comment on above: Performed By: #### G FR, BMP #### [address] [address] Ketones Ql (U) Negative Normal Negative [facility] Comment on above: Performed By: #### G FR, BMP #### [address] [address] UA Appear Clear Normal Clear [facility] Comment on above: Performed By: #### G FR, BMP #### [address] [address] UA Blood Trace Abnormal Negative [facility] Comment on above: Performed By: #### G FR, BMP #### [address] [address] UA Leuk Est Negative Normal Negative [facility] Comment on above: Performed By: #### G FR, BMP #### [place] [address] UA Nitrite Negative Normal Negative [facility] Comment on above: Performed By: #### G FR, BMP #### [place] [id number] UA pH 8.0 Normal 5.0 - 8.0 [facility] Comment on above: Performed By: #### G FR, BMP #### [place] [address] UA Protein Negative Normal Negative [facility] Comment on above: Performed By: #### G FR, BMP #### [place] [address] UA Spec Grav 1.020 Normal 1.015-1.025 [facility] Comment on above: Performed By: #### G FR, BMP #### [place] [address] UA Specimen Type Clean Catch Normal [facility] Comment on above: Performed By: #### G FR, BMP #### [place] [address] UA Urobilinogen 0.2 E.U./dL Normal 0.2-1.0 [facility] Comment on above: Performed By: #### G FR, BMP #### [place] [address] Urobilinogen (U) [Mass/Vol] Negative Normal Negative [facility] Comment on above: Performed By: #### G FR, BMP #### [place] [address] No Panel Informationon 05-03 Culture Urine <10,000 cfu/ml. No Significant growth. Sensitivity not indicated. [facility] Work Phone: .Auto Diffon 05-02-2024 Basophil, Absolute 0.1 10 3/mcL Normal 0.0-0.2 [facility] Comment on above: Performed By: #### A SAMUEL, FES, CBC, A1C, FERR, ADIFF #### [place] [address] #### B12, FOL, INSLN #### [address] [address] Basophils/100 WBC (Bld) 0.7 % Normal 0.0-2.5 [facility] Comment on above: Performed By: #### A SAMUEL, FES, CBC, A1C, FERR, ADIFF #### [place] [address] #### B12, FOL, INSLN #### [address] [address] Eosinophil, Absolute 0.1 10 3/mcL Normal 0.0-0.7 [facility] Comment on above: Performed By: #### A SAMUEL, FES, CBC, A1C, FERR, ADIFF #### [place] [address] #### B12, FOL, INSLN #### [address] [address] Eosinophils/100 WBC (Bld) 1.3 % Normal 0.0-7.0 [facility] Comment on above: Performed By: #### A SAMUEL, FES, CBC, A1C, FERR, ADIFF #### [place] [address] #### B12, FOL, INSLN #### [address] [address] Lymphocyte, Absolute 2.1 10 3/mcL Normal 0.9-4.3 [facility] Comment on above: Performed By: #### A SAMUEL, FES, CBC, A1C, FERR, ADIFF #### [place] [address] #### B12, FOL, INSLN #### [address] [address] Lymphocytes/100 WBC (Bld) 22.4 % Normal 20.0-40.0 [facility] Comment on above: Performed By: #### A SAMUEL, FES, CBC, A1C, FERR, ADIFF #### [place] [address] #### B12, FOL, INSLN #### [address] [address] Monocyte, Absolute 0.5 10 3/mcL Normal 0.1-1.4 [facility] Comment on above: Performed By: #### A SAMUEL, FES, CBC, A1C, FERR, ADIFF #### [address] [address] #### B12, FOL, INSLN #### [address] [address] Monocytes/100 WBC (Bld) 5.5 % Normal 2.0-13.0 [facility] Comment on above: Performed By: #### A SAMUEL, FES, CBC, A1C, FERR, ADIFF #### [address] [address] #### B12, FOL, INSLN #### [address] [address] Neutrophils/100 WBC (Bld) 70.1 % Normal 50.0-75.0 [facility] Comment on above: Performed By: #### A SAMUEL, FES, CBC, A1C, FERR, ADIFF #### [place] [address] #### B12, FOL, INSLN #### [address] [address] .GFRon 05-02-2024 GFR Non- 103 ml/min/1.73sqm Normal [facility] Comment on above: Result Comment: GFR Population mean for , Non- Americans Ages 20-29 = 116 mL/min/1.73 sq.m. Ages 30-39 = 107 mL/min/1.73 sq.m. Ages 40-49 = 99 mL/min/1.73 sq.m. Ages 50-59 = 93 mL/min/1.73 sq.m. Ages 60-69 = 85 mL/min/1.73 sq.m. Ages 70+ = 75 mL/min/1.73 sq.m. Chronic Kidney Disease: Less than 60 mL/min/1.73 square meters End Stage Renal Disease: Less than 15 mL/min/1.73 square meters Performed By: #### A SAMUEL, FES, CBC, A1C, FERR, ADIFF #### [address] [address] #### B12, FOL, INSLN #### [address] [address] GFR 125 ml/min/1.73sqm Normal [facility] Comment on above: Result Comment: GFR Population mean for , Non- Americans Ages 20-29 = 116 mL/min/1.73 sq.m. Ages 30-39 = 107 mL/min/1.73 sq.m. Ages 40-49 = 99 mL/min/1.73 sq.m. Ages 50-59 = 93 mL/min/1.73 sq.m. Ages 60-69 = 85 mL/min/1.73 sq.m. Ages 70+ = 75 mL/min/1.73 sq.m. Chronic Kidney Disease: Less than 60 mL/min/1.73 square meters End Stage Renal Disease: Less than 15 mL/min/1.73 square meters Performed By: #### A SAMUEL, FES, CBC, A1C, FERR, ADIFF #### [place] [id number] #### B12, FOL, INSLN #### [address] [address] .NEUABSon 05-02-2024 Neutrophil, Absolute 6.7 10 3/mcL Normal 2.3-8.1 [facility] Comment on above: Performed By: #### A SAMUEL, FES, CBC, A1C, FERR, ADIFF #### [address] [address] #### B12, FOL, INSLN #### [address] [address] A1Con 05-02-2024 Glucose [Mass/Vol] 126 mg/dL Normal [facility] Comment on above: Result Comment: Edwige mated Average Glucose calculated by equation ((28.7xA1C)-46.7) Estimated average glucose (eAG) is a calculated value from Hemoglobin A1C and is scheduling representative of the average blood glucose level in the last 2-3 month period. Normal range: less than 114 mg/dL Performed By: #### A SAMUEL, FES, CBC, A1C, FERR, ADIFF #### [place] [address] #### B12, FOL, INSLN #### [place] [address] HbA1c (Bld) [Mass fraction] 6.0 % Normal 4.3-6.4 [facility] Comment on above: Performed By: #### A SAMUEL, FES, CBC, A1C, FERR, ADIFF #### [place] [address] #### B12, FOL, INSLN #### [place] [address] BMPon 05-02-2024 BUN/Creatinine Ratio 19 ratio Normal 7-27 [facility] Comment on above: Performed By: #### A SAMUEL, FES, CBC, A1C, FERR, ADIFF #### [place] [address] #### B12, FOL, INSLN #### [place] [address] Calcium [Mass/Vol] 9.4 mg/dL Normal 8.4-10.2 [facility] Comment on above: Performed By: #### A SAMUEL, FES, CBC, A1C, FERR, ADIFF #### [place] [address] #### B12, FOL, INSLN #### [place] [address] Chloride [Moles/Vol] 103 mmol/L Normal 98-107 [facility] Comment on above: Performed By: #### A SAMUEL, FES, CBC, A1C, FERR, ADIFF #### [place] [address] #### B12, FOL, INSLN #### [place] [id number] CO2 [Moles/Vol] 28 mmol/L Normal 22-29 [facility] Comment on above: Performed By: #### A SAMUEL, FES, CBC, A1C, FERR, ADIFF #### [address] [address] #### B12, FOL, INSLN #### [address] [address] Creatinine [Mass/Vol] 0.70 mg/dL Normal 0.55-1.02 [facility] Comment on above: Result Comment: Test ing performed on Siemens Dimension EXL analyzer using a modified kinetic Stephanie technique. Performed By: #### A SAMUEL, FES, CBC, A1C, FERR, ADIFF #### [place] [address] #### B12, FOL, INSLN #### [address] [address] Electrolyte Balance 10.0 mEq/L Normal 4.0-15.0 [facility] Comment on above: Performed By: #### A SAMUEL, FES, CBC, A1C, FERR, ADIFF #### [place] [address] #### B12, FOL, INSLN #### [address] [address] Glucose [Mass/Vol] 94 mg/dL Normal 70-105 [facility] Comment on above: Performed By: #### A SAMUEL, FES, CBC, A1C, FERR, ADIFF #### [place] [address] #### B12, FOL, INSLN #### [address] [address] Potassium [Moles/Vol] 4.0 mmol/L Normal 3.5-5.1 [facility] Comment on above: Performed By: #### A SAMUEL, FES, CBC, A1C, FERR, ADIFF #### [place] [address] #### B12, FOL, INSLN #### [address] [address] Sodium [Moles/Vol] 141 mmol/L Normal 136-145 [facility] Comment on above: Performed By: #### A SAMUEL, FES, CBC, A1C, FERR, ADIFF #### [address] [address] #### B12, FOL, INSLN #### [place] [address] Urea nitrogen [Mass/Vol] 13 mg/dL Normal 7-18 [facility] Comment on above: Performed By: #### A SAMUEL, FES, CBC, A1C, FERR, ADIFF #### [place] [address] #### B12, FOL, INSLN #### [place] [address] CBCon 05-02-2024 Erythrocyte distribution width (RBC) [Ratio] 13.7 % Normal 11.5-15.5 [facility] Comment on above: Performed By: #### A SAMUEL, FES, CBC, A1C, FERR, ADIFF #### [place] [address] #### B12, FOL, INSLN #### [place] [address] Hematocrit (Bld) [Volume fraction] 37.5 % Normal 34.0-46.0 [facility] Comment on above: Performed By: #### A SAMUEL, FES, CBC, A1C, FERR, ADIFF #### [place] [address] #### B12, FOL, INSLN #### [place] [address] Hgb 12.7 G/dL Normal 12.0-16.0 [facility] Comment on above: Performed By: #### A SAMUEL, FES, CBC, A1C, FERR, ADIFF #### [place] [address] #### B12, FOL, INSLN #### [address] [address] MCH (RBC) [Entitic mass] 29.3 pg Normal 27.0-33.0 [facility] Comment on above: Performed By: #### A SAMUEL, FES, CBC, A1C, FERR, ADIFF #### [place] [address] #### B12, FOL, INSLN #### [place] [address] MCHC 33.9 G/dL Normal 32.0-36.0 [facility] Comment on above: Performed By: #### A SAMUEL, FES, CBC, A1C, FERR, ADIFF #### [place] [address] #### B12, FOL, INSLN #### [place] [address] MCV (RBC) [Entitic vol] 86.5 fL Normal 80.0-99.0 [facility] Comment on above: Performed By: #### A SAMUEL, FES, CBC, A1C, FERR, ADIFF #### [place] [address] #### B12, FOL, INSLN #### [place] [address] Platelet 290 10 3/mcL Normal 150-450 [facility] Comment on above: Performed By: #### A SAMUEL, FES, CBC, A1C, FERR, ADIFF #### [place] [address] #### B12, FOL, INSLN #### [place] [address] Platelet mean volume (Bld) [Entitic vol] 8.3 fL Normal 6.6-10.5 [facility] Comment on above: Performed By: #### A SAMUEL, FES, CBC, A1C, FERR, ADIFF #### [place] [address] #### B12, FOL, INSLN #### [place] [address] RBC 4.33 10 6/mcL Normal 4.10-5.30 [facility] Comment on above: Performed By: #### A SAMUEL, FES, CBC, A1C, FERR, ADIFF #### [address] [address] #### B12, FOL, INSLN #### [place] [address] WBC 9.5 10 3/mcL Normal 4.5-10.8 [facility] Comment on above: Performed By: #### A SAMUEL, FES, CBC, A1C, FERR, ADIFF #### [address] [address] #### B12, FOL, INSLN #### [place] [address] INSLNon 05-02-2024 Insulin 12.11 munit/L Normal 2.60-37.60 [facility] Comment on above: Performed By: #### A SAMUEL, FES, CBC, A1C, FERR, ADIFF #### [address] [address] #### B12, FOL, INSLN #### [place] [address] LABORATORYOrdered By: SYSTEM SYSTEM on 05-02-2024 Basophils (Bld) [#/Vol] 0.1 103/mcL Normal 0.0 - 0.2 10^3/mcL AO Workflow SS Basophils/100 WBC (Bld) 0.7 % Normal 0.0 - 2.5 % AO Workflow SS Calcium [Mass/Vol] 9.4 mg/dL Normal 8.4 - 10. 2 mg/dL AO ADM SS Chloride [Moles/Vol] 103 mmol/L Normal 98 - 10 7 mmol/L AO ADM SS CO2 [Moles/Vol] 28 mmol/L Normal 22 - 29 mmol/L AO ADM SS Creatinine [Mass/Vol] 0.70 mg/dL Normal 0.55 - 1.02 mg/dL AO ADM SS Comment on above: Interpretive Data: T esting performed on Siemens Dimension EXL analyzer using a modified kinetic Stephanie technique. Electrolyte Balance 10.0 mEq/L Normal 4.0 - 15 .0 mEq/L AO ADM SS Eosinophil, Absolute 0.1 103/mcL Normal 0.0 - 0 .7 10^3/mcL AO Workflow SS Eosinophils/100 WBC (Bld) 1.3 % Normal 0.0 - 7.0 % AO Workflow SS Erythrocyte distribution width (RBC) [Ratio] 13.7 % Normal 11.5 - 15.5 % AO Workflow SS GFR/1.73 sq M.predicted among blacks MDRD (S/P/Bld) [Vol rate/Area] 125 ml/min/1.73sqm Invalid Interpretation Code AO Chemistry S Comment on above: Interpretive Data: GFR Population mean for , Non- Americans Ages 20-29 = 116 mL/min/1.73 sq.m. Ages 30-39 = 107 mL/min/1.73 sq.m. Ages 40-49 = 99 mL/min/1.73 sq.m. Ages 50-59 = 93 mL/min/1.73 sq.m. Ages 60-69 = 85 mL/min/1.73 sq.m. Ages 70+ = 75 mL/min/1.73 sq.m. Chronic Kidney Disease: Less than 60 mL/min/1.73 square meters End Stage Renal Disease: Less than 15 mL/min/1.73 square meters GFR/1.73 sq M.predicted among non-blacks MDRD (S/P/Bld) [Vol rate/Area] 103 ml/min/1.73sqm Invalid Interpretation Code AO Chemistry S Comment on above: Interpretive Data: GFR Population mean for , Non- Americans Ages 20-29 = 116 mL/min/1.73 sq.m. Ages 30-39 = 107 mL/min/1.73 sq.m. Ages 40-49 = 99 mL/min/1.73 sq.m. Ages 50-59 = 93 mL/min/1.73 sq.m. Ages 60-69 = 85 mL/min/1.73 sq.m. Ages 70+ = 75 mL/min/1.73 sq.m. Chronic Kidney Disease: Less than 60 mL/min/1.73 square meters End Stage Renal Disease: Less than 15 mL/min/1.73 square meters Glucose [Mass/Vol] 126 mg/dL Invalid Interpretation Code AO Chemistry S Comment on above: Interpretive Data: E stimated average glucose (eAG) is a calculated value from Hemoglobin A1C and is scheduling representative of the average blood glucose level in the last 2-3 month period. Normal range: less than 114 mg/dL Glucose [Mass/Vol] 94 mg/dL Normal 70 - 105 mg/dL AO ADM SS HbA1c (Bld) [Mass fraction] 6.0 % Normal 4.3 - 6.4 % AO ADM SS Hematocrit (Bld) [Volume fraction] 37.5 % Normal 34.0 - 46.0 % AO Workflow SS Hemoglobin (Bld) [Mass/Vol] 12.7 G/dL Normal 12.0 - 16.0 G/dL AO Workflow SS Insulin Qn 12.11 munit/L Normal 2.60 - 37.60 mU/L AH ADM SS Lymphocytes (Bld) [#/Vol] 2.1 103/mcL Normal 0.9 - 4.3 10^3/mcL AO Workflow SS Lymphocytes/100 WBC (Bld) 22.4 % Normal 20.0 - 40.0 % AO Workflow SS MCH (RBC) [Entitic mass] 29.3 pg Normal 27.0 - 33.0 pg AO Workflow SS MCHC 33.9 G/dL Normal 32.0 - 36.0 G/dL AO Workflow SS MCV (RBC) [Entitic vol] 86.5 fL Normal 80.0 - 99.0 fL AO Workflow SS Monocytes (Bld) [#/Vol] 0.5 103/mcL Normal 0.1 - 1.4 10^3/mcL AO Workflow SS Monocytes/100 WBC (Bld) 5.5 % Normal 2.0 - 13.0 % AO Workflow SS Neutrophils (Bld) [#/Vol] 6.7 103/mcL Normal 2.3 - 8.1 10^3/mcL AO Workflow SS Neutrophils/100 WBC (Bld) 70.1 % Normal 50.0 - 75.0 % AO Workflow SS Platelet mean volume (Bld) [Entitic vol] 8.3 fL Normal 6.6 - 10.5 fL AO Workflow SS Platelets (Bld) [#/Vol] 290 103/mcL Normal 150 - 450 10^3/mcL AO Workflow SS Potassium [Moles/Vol] 4.0 mmol/L Normal 3.5 - 5.1 mmol/L AO ADM SS RBC (Bld) [#/Vol] 4.33 106/mcL Normal 4.10 - 5.3 0 10^6/mcL AO Workflow SS Sodium [Moles/Vol] 141 mmol/L Normal 136 - 145 mmol/L AO ADM SS Urea nitrogen [Mass/Vol] 13 mg/dL Normal 7 - 18 mg/dL AO ADM SS Urea nitrogen/Creatinine [Mass ratio] 19 ratio Normal 7 - 27 ratio AO ADM SS WBC (Bld) [#/Vol] 9.5 103/mcL Normal 4.5 - 10.8 10^3/mcL AO Workflow SS Final Surgical Pathology Rep greg 04-29-2024 Final Surgical Pathology Report . Pathology Reports Accession: Collected Date/Time: Received Date/Time: Pathologist: [id number] 04/25/2024 08:22 EST 04/28/2024 07:25 JONELLE SAMUEL MD Final Surgical Pathology Report DIAGNOSIS: UTERUS, CERVIX, BILATERAL FALLOPIAN TUBES: - CERVIX -MILD CHRONIC CERVICITIS - ENDOMETRIUM -SECRETORY - MYOMETRIUM -LEIOMYOMA IDENTIFIED - FALLOPIAN TUBES -NO SIGNIFICANT PATHOLOGY CLINICAL INFORMATION: LEFT UPPER QUADRANT PAIN, EXCESSIVE AND FREQUENT MENSTRUATION WITH IRREGULAR CYCLE Procedure: TOTAL LAPAROSCOPIC HYSTERECTOMY, BILATERAL SALPINGECTOMY; CYSTOSCOPY Preoperative diagnosis: CHRONIC PELVIC PAIN; MENOMETRORRHAGIA Postoperative diagnosis: CHRONIC PELVIC PAIN; MENOMETRORRHAGIA SPECIMEN: A UTERUS, BILATERAL FALLOPIAN TUBES GROSS DESCRIPTION: All parts labelled with patient name and [id number] Received in formalin labelled uterus, cervix, bilateral fallopian tubes Weight/dimensions - 68 g and measures 8.5 cm (fundus to cervix), 3.5 cm (cornu to cornu), 3.1 cm (anterior to posterior). Serosa - chester, smooth with an anterior subserosal nodule. Cervix/endocervix - 2 cm in diameter and 4.5 cm in length. Endometrium - triangular-shaped endometrial cavity measuring 2.5 x 2.5 cm, endometrium lining measuring 0.2 cm. Myometrium - chester-white measuring up to 2.5 cm with 1 anterior subserosal nodule measuring 0.4 x 0.3 x 0.2 cm. Right fallopian tube - 4 x 0.7 cm Left fallopian tube - 5.5 x 0.8 cm RS-6 Cassette Summary: A1 - Cervix A2 - Anterior endomyometrium A3 - Posterior endomyometrium A4 - Anterior subserosal nodule A5 - Right fallopian tube A6 - Left fallopian tube Felton Victoria, Pathologists' [employer] Apprentice (ASCP) Performed by FELTON VICTORIA MICROSCOPIC DESCRIPTION: The microscopic examination is performed, except in the case of Gross Only. Electronically Signed by Pathology Report verified by [facility] JONELLE RAMIREZ Sign out Date: 04/29/2024 12:39 Performing Lab: [facility], [address] [place] [address] Pathology Dept Pathology Reports Accession: Collected Date/Time: Received Date/Time: Pathologist: [id number] 04/25/2024 08:22 EST 04/28/2024 07:25 JONELLE SAMUEL MD Disclaimer If ancillary studies were utilized, the following Laboratory Developed Test (LDT) disclaimer will apply: Under CLIA requirements, [facility]ology Laboratory is qualified to perform high complexity testing. For all ancillary stains, positive and negative controls stain appropriately. Performance characteristics of immunohistochemical and chromogenic in-situ hybridization tests have been determined by [facility]. These tests are used for clinical purposes, They should not be regarded as investigational or for research. Normal [facility] No Panel Informationon 04-29 Culture Urine 10,000 - 50,000 cfu/ ml Multiple bacterial morphotypes present. Probable Contamination. Suggest recollection if clinically indicated. [facility] Work Phone: ABO/Rh (Gel)on 04-25-2024 ABO/Rh Interp Positive Invalid Interpretation Code [facility] Comment on above: Performed By: #### G , BMP #### [address] [address] ABS (Gel)on 04-25-2024 ABSC Interp (Gel) Negative Normal [facility] Comment on above: Performed By: #### G , BMP #### [facility] [address] [place], [place] [address] LABORATORYOrdered By: Su Summers on 04-25-2024 ABO and Rh group Nom (Bld) Blood group A Rh(D) positive Invalid Interpretation Code AO BB Auto SS Blood group antibody screen Ql Negative ABSC (04/25/24 6:20 AM) Normal AO BB Auto SS LABORATORYOrdered By: Margarito Smyth on 04-25-2024 HCG ( test) Ql Negative (04/25/24 6:20 AM) Normal AO Manual Urine SS test (u) int Not detected Invalid Interpretation Code AO Manual Urine SS PREGUon 04-25-2024 HCG ( test) Ql (U) Negative Normal [facility] Comment on above: Performed By: #### A SAMUEL, FES, CBC, A1C, FERR, ADIFF #### [address] [address] #### B12, FOL, INSLN #### [place] [address] test (u) int Not detected Invalid Interpretation Code [facility] Comment on above: Performed By: #### A SAMUEL, FES, CBC, A1C, FERR, ADIFF #### [place] [address] #### B12, FOL, INSLN #### [place] [address] LABORATORYOrdered By: Su Summers on 04-16-2024 Cholesterol [Mass/Vol] 189 mg/dL Normal 0 - 200 mg/dL AO ADM SS Comment on above: Interpretive Data: C holesterol Reference Interval: Less than 200 Desirable 200-239 Borderline high risk 240 and above High risk Cholesterol in HDL [Mass/Vol] 50 mg/dL Normal 40 - 60 mg/dL AO ADM SS Cholesterol in LDL [Mass/Vol] 108 mg/dL Normal 0 - 130 mg/dL AO ADM SS Triglyceride [Mass/Vol] 153 mg/dL High 0 - 150 mg/dL AO ADM SS Comment on above: Interpretive Data: T riglyceride Reference Interval: Less than 150 Normal 150-199 Borderline high risk 200-499 High risk 500 or higher Very high risk LIPIDon 04-16-2024 Cholesterol [Mass/Vol] 189 mg/dL Normal 0-200 [facility] Comment on above: Result Comment: Chol esterol Reference Interval: Less than 200 Desirable 200-239 Borderline high risk 240 and above High risk Performed By: #### A SAMUEL, FES, CBC, A1C, FERR, ADIFF #### [address] [address] #### B12, FOL, INSLN #### [address] [address] Cholesterol in HDL [Mass/Vol] 50 mg/dL Normal 40-60 [facility] Comment on above: Performed By: #### A SAMUEL, FES, CBC, A1C, FERR, ADIFF #### [address] [address] #### B12, FOL, INSLN #### [address] [address] Cholesterol in LDL [Mass/Vol] 108 mg/dL Normal 0-130 [facility] Comment on above: Performed By: #### A SAMUEL, FES, CBC, A1C, FERR, ADIFF #### [address] [address] #### B12, FOL, INSLN #### [address] [address] Triglyceride [Mass/Vol] 153 mg/dL High 0-150 [facility] Comment on above: Result Comment: Trig lyceride Reference Interval: Less than 150 Normal 150-199 Borderline high risk 200-499 High risk 500 or higher Very high risk Performed By: #### A SAMUEL, FES, CBC, A1C, FERR, ADIFF #### [address] [address] #### B12, FOL, INSLN #### [address] [address] CNPNon 04-15-2024 CNPN Normal [facility] CNPTOUTREACHon 04-15-2024 CNPTOUTREACH Normal [facility] CBC W Auto Differential pane l (Bld)on 04-14-2024 Basophils (Bld) [#/Vol] [facility] Basophils/100 WBC (Bld) 0.3 % [facility] Differential cell count method Nom (Bld) Auto [facility] Eosinophils (Bld) [#/Vol] 0.09 10*3/uL NINF [facility] Eosinophils/100 WBC (Bld) 1.4 % [facility] Erythrocyte distribution width (RBC) [Ratio] 12.5 % 11.5 - 15.0 % [facility] Hematocrit (Bld) [Volume fraction] 37.1 % 36.0 - 46.0 % [facility] Hemoglobin (Bld) [Mass/Vol] 11.8 g/dL 11.5 - 15.5 g/dL [facility] Immature granulocytes (Bld) [#/Vol] [facility] Immature granulocytes/100 WBC (Bld) 0.3 % [facility] Lymphocytes (Bld) [#/Vol] 2.03 10*3/uL [facility] Lymphocytes/100 WBC (Bld) 32.6 % [facility] MCH (RBC) [Entitic mass] 28.9 pg 26.0 - 34.0 pg [facility] MCHC (RBC) [Mass/Vol] 31.8 g/dL 30.5 - 36.0 g/dL [facility] MCV (RBC) [Entitic vol] 90.7 fL 80.0 - 100.0 fL [facility] Monocytes (Bld) [#/Vol] 0.43 10*3/uL [facility] Monocytes/100 WBC (Bld) 6.9 % [facility] Neutrophils (Bld) [#/Vol] 3.63 10*3/uL [facility] Neutrophils/100 WBC (Bld) 58.5 % [facility] Nucleated RBC (Bld) [#/Vol] [facility] Nucleated RBC/100 WBC (Bld) [Ratio] 0.0 % /100 WBC [facility] Platelet mean volume (Bld) [Entitic vol] 10.6 fL 9.0 - 12.7 fL [facility] Platelets (Bld) [#/Vol] 269 10*3/uL [facility] RBC (Bld) [#/Vol] 4.09 10*6/uL 3.90 - 5.2 0 m/uL [facility] WBC (Bld) [#/Vol] 6.22 10*3/uL [facility] Basophils (Bld) [#/Vol] 10*3/uL Normal <0.11 [facility] Comment on above: Order Comment: Speci men Type: BLOOD SPECIMENOrdering Facility: [facility] Address: [address] [place] [address] Performed By: #### 5 7021-8 ####[facility] LABCLIA [id number] [place] [address] [place] Basophils/100 WBC (Bld) 0.3 % Normal [facility] Comment on above: Order Comment: Speci men Type: BLOOD SPECIMENOrdering Facility: [facility] Address: [address] [place] [address] Performed By: #### 5 7021-8 ####[facility] LABCLIA [id number] [place] [address] [place] Differential cell count method Nom (Bld) Auto Normal [facility] Comment on above: Order Comment: Speci men Type: BLOOD SPECIMENOrdering Facility: [facility] Address: [address] [place] [address] Performed By: #### 5 7021-8 ####[facility] LABCLIA [id number] [place] [address] [place] Eosinophils (Bld) [#/Vol] 0.09 10*3/uL Normal <0.46 [facility] Comment on above: Order Comment: Speci men Type: BLOOD SPECIMENOrdering Facility: [facility] Address: [address] [place] [address] Performed By: #### 5 7021-8 ####[facility] LABCLIA [id number] [place] [address] [place] Eosinophils/100 WBC (Bld) 1.4 % Normal [facility] Comment on above: Order Comment: Speci men Type: BLOOD SPECIMENOrdering Facility: [facility] Address: [address] [place] [address] Performed By: #### 5 7021-8 ####[facility] LABCLIA [id number] [place] [address] [place] Erythrocyte distribution width (RBC) [Ratio] 12.5 % Normal 11.5-15.0 [facility] Comment on above: Order Comment: Speci men Type: BLOOD SPECIMENOrdering Facility: [facility] Address: [address] [place] [address] Performed By: #### 5 7021-8 ####[facility] LABCLIA [id number] [place] [address] [place] Hematocrit (Bld) [Volume fraction] 37.1 % Normal 36.0-46.0 [facility] Comment on above: Order Comment: Speci men Type: BLOOD SPECIMENOrdering Facility: [facility] Address: [address] [place] [address] Performed By: #### 5 7021-8 ####[facility] LABIA [id number] [place] [address] [place] Hemoglobin (Bld) [Mass/Vol] 11.8 g/dL Normal 11.5-15.5 [facility] Comment on above: Order Comment: Speci men Type: BLOOD SPECIMENOrdering Facility: [facility] Address: [address] [place] [address] Performed By: #### 5 7021-8 ####[facility] LABIA [id number] [place] [address] [place] Immature granulocytes (Bld) [#/Vol] 10*3/uL Normal <0.10 [facility] Comment on above: Order Comment: Speci men Type: BLOOD SPECIMENOrdering Facility: [facility] Address: [address] [place] [address] Performed By: #### 5 7021-8 ####[facility] LABIA [id number] [place] [address] [place] Immature granulocytes/100 WBC (Bld) 0.3 % Normal [facility] Comment on above: Order Comment: Speci men Type: BLOOD SPECIMENOrdering Facility: [facility] Address: [address] [place] [address] Performed By: #### 5 7021-8 ####[facility] LABCLIA [id number] [place] [address] [place] Lymphocytes (Bld) [#/Vol] 2.03 10*3/uL Normal 1.00-4.00 [facility] Comment on above: Order Comment: Speci men Type: BLOOD SPECIMENOrdering Facility: [facility] Address: [address] [place] [address] Performed By: #### 5 7021-8 ####[facility] LABCLIA [id number] [place] [address] [place] Lymphocytes/100 WBC (Bld) 32.6 % Normal [facility] Comment on above: Order Comment: Speci men Type: BLOOD SPECIMENOrdering Facility: [facility] Address: [address] [place] [address] Performed By: #### 5 7021-8 ####[facility] LABCLIA [id number] [place] [address] [place] MCH (RBC) [Entitic mass] 28.9 pg Normal 26.0-34.0 [facility] Comment on above: Order Comment: Speci men Type: BLOOD SPECIMENOrdering Facility: [facility] Address: [address] [place] [address] Performed By: #### 5 7021-8 ####[facility] LABCLIA [id number] [place] [address] [place] MCHC (RBC) [Mass/Vol] 31.8 g/dL Normal 30.5-36.0 [facility] Comment on above: Order Comment: Speci men Type: BLOOD SPECIMENOrdering Facility: [facility] Address: [address] [place] [address] Performed By: #### 5 7021-8 ####[facility] LABCLIA [id number] [id number] [address] [place] MCV (RBC) [Entitic vol] 90.7 fL Normal 80.0-100.0 [facility] Comment on above: Order Comment: Speci men Type: BLOOD SPECIMENOrdering Facility: [facility] Address: [address] [place] [address] Performed By: #### 5 7021-8 ####[facility] LABCLIA [id number] [place] [address] [place] Monocytes (Bld) [#/Vol] 0.43 10*3/uL Normal <0.87 [facility] Comment on above: Order Comment: Speci men Type: BLOOD SPECIMENOrdering Facility: [facility] Address: [address] [place] [address] Performed By: #### 5 7021-8 ####[facility] LABCLIA [id number] [place] [address] [place] Monocytes/100 WBC (Bld) 6.9 % Normal [facility] Comment on above: Order Comment: Speci men Type: BLOOD SPECIMENOrdering Facility: [facility] Address: [address] [place] [address] Performed By: #### 5 7021-8 ####[facility] LABCLIA [id number] [place] [address] [place] Neutrophils (Bld) [#/Vol] 3.63 10*3/uL Normal 1.45-7.50 [facility] Comment on above: Order Comment: Speci men Type: BLOOD SPECIMENOrdering Facility: [facility] Address: [address] [place] [address] Performed By: #### 5 7021-8 ####[facility] LABCLIA [id number] [place] [address] [place] Neutrophils/100 WBC (Bld) 58.5 % Normal [facility] Comment on above: Order Comment: Speci men Type: BLOOD SPECIMENOrdering Facility: [facility] Address: [address] [place] [address] Performed By: #### 5 7021-8 ####[facility] LABCLIA [id number] [place] [address] [place] Nucleated RBC (Bld) [#/Vol] 10*3/uL Normal <0.01 [facility] Comment on above: Order Comment: Speci men Type: BLOOD SPECIMENOrdering Facility: [facility] Address: [address] [place] [address] Performed By: #### 5 7021-8 ####[facility] LABIA [id number] [place] [address] [place] Nucleated RBC/100 WBC (Bld) [Ratio] 0.0 /100 WBC Normal [facility] Comment on above: Order Comment: Speci men Type: BLOOD SPECIMENOrdering Facility: [facility] Address: [address] [place] [address] Performed By: #### 5 7021-8 ####[facility] LABIA [id number] [place] [address] [place] Platelet mean volume (Bld) [Entitic vol] 10.6 fL Normal 9.0-12.7 [facility] Comment on above: Order Comment: Speci men Type: BLOOD SPECIMENOrdering Facility: [facility] Address: [address] [place] [address] Performed By: #### 5 7021-8 ####[facility] LABIA [id number] [place] [address] [place] Platelets (Bld) [#/Vol] 269 10*3/uL Normal 150-400 [facility] Comment on above: Order Comment: Speci men Type: BLOOD SPECIMENOrdering Facility: [facility] Address: [address] [place] [address] Performed By: #### 5 7021-8 ####[facility] LABIA [id number] [place] [address] [place] RBC (Bld) [#/Vol] 4.09 10*6/uL Normal 3.90-5.20 [facility] Comment on above: Order Comment: Speci men Type: BLOOD SPECIMENOrdering Facility: [facility] Address: [address] [place] [address] Performed By: #### 5 7021-8 ####[facility] LABCLIA [id number] [place] [address] [place] WBC (Bld) [#/Vol] 6.22 10*3/uL Normal 3.70-11.00 [facility] Comment on above: Order Comment: Speci men Type: BLOOD SPECIMENOrdering Facility: [facility] Address: [address] [place] [address] Performed By: #### 5 7021-8 ####[facility] LABCLIA [id number] [place] [address] [place] CNOVSPon 04-14-2024 CNOVSP Normal [facility] Ferritin SerPl-mCncon 2023 Ferritin [Mass/Vol] 34.5 ng/mL Normal 14.7-205.1 [facility] Comment on above: Order Comment: Speci men Type: BLOOD SPECIMENOrdering Facility: [facility] Address: [address] [place] [address] Performed By: #### 2 276-4, 88009-1 ####[facility] LABCLIA [id number] [place] [address] [place] Iron and Iron binding capaci ty panelon 04-14-2024 Iron [Mass/Vol] 50 ug/dL Normal 41-186 [facility] Comment on above: Order Comment: Speci men Type: BLOOD SPECIMENOrdering Facility: [facility] Address: [address] [place] [address] Performed By: #### 2 276-4, 22906-0 ####[facility] LABCLIA [id number] [place] [address] [place] Iron binding capacity [Mass/Vol] 394 ug/dL High 232-386 [facility] Comment on above: Order Comment: Speci men Type: BLOOD SPECIMENOrdering Facility: [facility] Address: [address] [place] [address] Performed By: #### 2 276-4, 96602-7 ####[facility] LABCLIA [id number] [place] [address] [place] Iron/TIBC [Molar ratio] 12.7 % Low 15.0-57.0 [facility] Comment on above: Order Comment: Speci men Type: BLOOD SPECIMENOrdering Facility: [facility] Address: [address] [place] [address] Performed By: #### 2 276-4, 24231-4 ####[facility] LABCLIA [id number] [place] [address] [place] .Auto Diffon 04-11-2024 Basophil, Absolute 0.0 10 3/mcL Normal 0.0-0.2 [facility] Comment on above: Performed By: #### A SAMUEL, FES, CBC, A1C, FERR, ADIFF #### [address] [address] #### B12, FOL, INSLN #### [address] [address] Basophils/100 WBC (Bld) 0.5 % Normal 0.0-2.5 [facility] Comment on above: Performed By: #### A SAMUEL, FES, CBC, A1C, FERR, ADIFF #### [address] [address] #### B12, FOL, INSLN #### [address] [address] Eosinophil, Absolute 0.1 10 3/mcL Normal 0.0-0.7 [facility] Comment on above: Performed By: #### A SAMUEL, FES, CBC, A1C, FERR, ADIFF #### [place] [address] #### B12, FOL, INSLN #### [address] [address] Eosinophils/100 WBC (Bld) 1.0 % Normal 0.0-7.0 [facility] Comment on above: Performed By: #### A SAMUEL, FES, CBC, A1C, FERR, ADIFF #### [place] [address] #### B12, FOL, INSLN #### [address] [address] Lymphocyte, Absolute 2.0 10 3/mcL Normal 0.9-4.3 [facility] Comment on above: Performed By: #### A SAMUEL, FES, CBC, A1C, FERR, ADIFF #### [place] [address] #### B12, FOL, INSLN #### [address] [address] Lymphocytes/100 WBC (Bld) 35.5 % Normal 20.0-40.0 [facility] Comment on above: Performed By: #### A SAMUEL, FES, CBC, A1C, FERR, ADIFF #### [place] [address] #### B12, FOL, INSLN #### [address] [address] Monocyte, Absolute 0.4 10 3/mcL Normal 0.1-1.4 [facility] Comment on above: Performed By: #### A SAMUEL, FES, CBC, A1C, FERR, ADIFF #### [place] [address] #### B12, FOL, INSLN #### [address] [address] Monocytes/100 WBC (Bld) 6.6 % Normal 2.0-13.0 [facility] Comment on above: Performed By: #### A SAMUEL, FES, CBC, A1C, FERR, ADIFF #### [address] [address] #### B12, FOL, INSLN #### [address] [address] Neutrophils/100 WBC (Bld) 56.4 % Normal 50.0-75.0 [facility] Comment on above: Performed By: #### A SAMUEL, FES, CBC, A1C, FERR, ADIFF #### [address] [address] #### B12, FOL, INSLN #### [address] [address] .NEUABSon 04-11-2024 Neutrophil, Absolute 3.1 10 3/mcL Normal 2.3-8.1 [facility] Comment on above: Performed By: #### A SAMUEL, FES, CBC, A1C, FERR, ADIFF #### [place] [address] #### B12, FOL, INSLN #### [address] [address] ABO/Rh (Gel)on 04-11-2024 ABO/Rh Interp Positive Invalid Interpretation Code [facility] Comment on above: Performed By: #### A SAMUEL, FES, CBC, A1C, FERR, ADIFF #### [address] [address] #### B12, FOL, INSLN #### [address] [address] ABS (Gel)on 04-11-2024 ABSC Interp (Gel) Negative Normal [facility] Comment on above: Performed By: #### A SAMUEL, FES, CBC, A1C, FERR, ADIFF #### [place] [address] #### B12, FOL, INSLN #### [address] [address] CBCon 04-11-2024 Erythrocyte distribution width (RBC) [Ratio] 13.4 % Normal 11.5-15.5 [facility] Comment on above: Order Comment: Pre-A dmission Testing Performed By: #### A SAMUEL, FES, CBC, A1C, FERR, ADIFF #### [address] [address] #### B12, FOL, INSLN #### [address] [address] Hematocrit (Bld) [Volume fraction] 38.3 % Normal 34.0-46.0 [facility] Comment on above: Order Comment: Pre-A dmission Testing Performed By: #### A SAMUEL, FES, CBC, A1C, FERR, ADIFF #### [address] [address] #### B12, FOL, INSLN #### [address] [address] Hgb 12.7 G/dL Normal 12.0-16.0 [facility] Comment on above: Order Comment: Pre-A dmission Testing Performed By: #### A SAMUEL, FES, CBC, A1C, FERR, ADIFF #### [place] [address] #### B12, FOL, INSLN #### [address] [address] MCH (RBC) [Entitic mass] 29.2 pg Normal 27.0-33.0 [facility] Comment on above: Order Comment: Pre-A dmission Testing Performed By: #### A SAMUEL, FES, CBC, A1C, FERR, ADIFF #### [place] [address] #### B12, FOL, INSLN #### [address] [address] MCHC 33.2 G/dL Normal 32.0-36.0 [facility] Comment on above: Order Comment: Pre-A dmission Testing Performed By: #### A SAMUEL, FES, CBC, A1C, FERR, ADIFF #### [place] [address] #### B12, FOL, INSLN #### [address] [address] MCV (RBC) [Entitic vol] 87.9 fL Normal 80.0-99.0 [facility] Comment on above: Order Comment: Pre-A dmission Testing Performed By: #### A SAMUEL, FES, CBC, A1C, FERR, ADIFF #### [address] [address] #### B12, FOL, INSLN #### [address] [address] Platelet 258 10 3/mcL Normal 150-450 [facility] Comment on above: Order Comment: Pre-A dmission Testing Performed By: #### A SAMUEL, FES, CBC, A1C, FERR, ADIFF #### [address] [address] #### B12, FOL, INSLN #### [address] [address] Platelet mean volume (Bld) [Entitic vol] 8.6 fL Normal 6.6-10.5 [facility] Comment on above: Order Comment: Pre-A dmission Testing Performed By: #### A SAMUEL, FES, CBC, A1C, FERR, ADIFF #### [address] [address] #### B12, FOL, INSLN #### [address] [address] RBC 4.35 10 6/mcL Normal 4.10-5.30 [facility] Comment on above: Order Comment: Pre-A dmission Testing Performed By: #### A SAMUEL, FES, CBC, A1C, FERR, ADIFF #### [address] [address] #### B12, FOL, INSLN #### [address] [address] WBC 5.5 10 3/mcL Normal 4.5-10.8 [facility] Comment on above: Order Comment: Pre-A dmission Testing Performed By: #### A SAMUEL, FES, CBC, A1C, FERR, ADIFF #### [address] [address] #### B12, FOL, INSLN #### [place] [address] LABORATORYOrdered By: Shannan Rowe on 04-11-2024 ABO and Rh group Nom (Bld) Blood group A Rh(D) positive Invalid Interpretation Code AO BB Auto SS Blood group antibody screen Ql Negative ABSC (04/11/24 9:28 AM) Normal AO BB Auto SS LABORATORYOrdered By: SYSTEM SYSTEM on 04-11-2024 Basophils (Bld) [#/Vol] 0.0 103/mcL Normal 0.0 - 0.2 10^3/mcL AO Workflow SS Basophils/100 WBC (Bld) 0.5 % Normal 0.0 - 2.5 % AO Workflow SS Eosinophil, Absolute 0.1 103/mcL Normal 0.0 - 0 .7 10^3/mcL AO Workflow SS Eosinophils/100 WBC (Bld) 1.0 % Normal 0.0 - 7.0 % AO Workflow SS Erythrocyte distribution width (RBC) [Ratio] 13.4 % Normal 11.5 - 15.5 % AO Workflow SS Hematocrit (Bld) [Volume fraction] 38.3 % Normal 34.0 - 46.0 % AO Workflow SS Hemoglobin (Bld) [Mass/Vol] 12.7 G/dL Normal 12.0 - 16.0 G/dL AO Workflow SS Lymphocytes (Bld) [#/Vol] 2.0 103/mcL Normal 0.9 - 4.3 10^3/mcL AO Workflow SS Lymphocytes/100 WBC (Bld) 35.5 % Normal 20.0 - 40.0 % AO Workflow SS MCH (RBC) [Entitic mass] 29.2 pg Normal 27.0 - 33.0 pg AO Workflow SS MCHC 33.2 G/dL Normal 32.0 - 36.0 G/dL AO Workflow SS MCV (RBC) [Entitic vol] 87.9 fL Normal 80.0 - 99.0 fL AO Workflow SS Monocytes (Bld) [#/Vol] 0.4 103/mcL Normal 0.1 - 1.4 10^3/mcL AO Workflow SS Monocytes/100 WBC (Bld) 6.6 % Normal 2.0 - 13.0 % AO Workflow SS Neutrophils (Bld) [#/Vol] 3.1 103/mcL Normal 2.3 - 8.1 10^3/mcL AO Workflow SS Neutrophils/100 WBC (Bld) 56.4 % Normal 50.0 - 75.0 % AO Workflow SS Platelet mean volume (Bld) [Entitic vol] 8.6 fL Normal 6.6 - 10.5 fL AO Workflow SS Platelets (Bld) [#/Vol] 258 103/mcL Normal 150 - 450 10^3/mcL AO Workflow SS RBC (Bld) [#/Vol] 4.35 106/mcL Normal 4.10 - 5.3 0 10^6/mcL AO Workflow SS WBC (Bld) [#/Vol] 5.5 103/mcL Normal 4.5 - 10.8 10^3/mcL AO Workflow SS D/C Summary- SPon 04-09-2024 D/C Summary- SP [facility] Speech Pathology [facility] [address] [place] [address] [address] [place] [address] / REHABILITATION SERVICES DISCHARGE SUMMARY MR#: [id number] Acct: [id number] Name: MATT CALABRESE Rep #: [id number] : 2000 23 From: Angela Walker M.S., CCC-FAMILY SERVICES SPECIALIST Referring Dr.: OUT OF TOWN DOCTOR Status: REG R CR Insurance: [facility] [employer] SELF PAY INSURANCE ST Discharge Summary Discharged: Discharge: MATT CALABRESE is a 23 year old female who presented to [facility] on 02/19[facility]2024 following a dx of dysphagia. Pt attended initial evaluation with goals created to participate in a MBSS to objectively assess swallow function. Pt participated in MBSS with [facility]. Pt provided ST the results following the procedure where her swallow function appeared to be within normal and functional limits. The evaluating therapist did recommend follow up with psychology. At this time, speech therapy intervention is not warranted. Should new or worsening symptoms develop, speech therapy could re-evaluate to determine appropriateness for intervention. Thank you for allowing me to participate in the care of your patient. Will re-evaluate at Pt???s request following script from physician. 04/09/24 5855 CC: AURY TRISTAN; No Primary Care Physician RE Signed Normal [facility] CT CHEST WO IVCONon 04-07-20 CT CHEST WO IVCON Normal [facility] CT Chest WO contraston 04-07 IMPRESSION: Stable lung nodules and faintly calcified thoracic lymphadenopathy, compatible with granulomatous process and likely related to reported histoplasmosis, DDx includes sarcoidosis. Ingot Header: WILL Transcribe Date/Time: Apr 07 2024 10:30A Dictated by : KENYETTA RUVALCABA MD This examination was interpreted and the report reviewed and electronically signed by: VALERIE AYERS MD on Apr 07 2024 11:41AM [facility] DIVISION OF RADIOLOGY * * *Final Report* * * DATE OF EXAM: Apr 07 2024 8:27AM [facility] 0541 - CT CHEST WO IVCON / PROCEDURE REASON: Lung nodules * * * * Physician Interpretation * * * * EXAMINATION: CHEST CT WITHOUT CONTRAST CLINICAL HISTORY: Lung nodules. History of histoplasmosis dx. Technique: Spiral CT acquisition of the chest from the thoracic inlet to the upper abdomen without contrast. MQ: [id number] CT Radiation dose: Integrated Dose-length product (DLP) for this visit = 392 mGy*cm CT Dose Reduction Employed: Automated exposure control(AEC) and iterative recon . Comparison: 04/15/2023 RESULT: Limitations: None. Lines, tubes, and devices: None. Lung parenchyma, airways: Stable multiple bilateral solid nodules, some nodules associated with faint calcification, multiple nodules with satellite and regional perilymphatic micronodules, for reference: * 7 mm nodule in right upper lobe (7:52) * 10 mm nodule in right middle lobe (7:92) * 9 mm nodule in right lower lobe (7:97) * 7 mm nodule in left upper lobe (7:62) * 9 mm nodule in left lower lobe (7:117). Pleural space: No pleural effusion or discrete nodular thickening. Lower neck, lymph nodes, and mediastinum: No supraclavicular or axillary lymph node enlargement. - Multiple subcentimeter and mildly enlarged intrathoracic lymph nodes, essentially unchanged, some associated with intrinsic faint calcification Heart, pericardium, and thoracic vessels: Normal heart size and pulmonary trunk diameter. No pericardial effusion. Bones and soft tissues: No destructive bone lesion. Right lateral breast 4.2 x 1.6 cm fluid collection, sagittal image 15, likely a postoperative seroma (reported breast reduction surgery). - Resolution or removal of the left breast well-circumscribed cyst Upper abdomen: Normal splenic size. No enlarged lymph nodes Localizer images: No additional findings. DIVISION OF RADIOLOGY Provider, [facility] - 04/07/2024 * * *Final Report* * * DATE OF EXAM: Apr 07 2024 8:27AM [facility] 0541 - CT CHEST WO IVCON / PROCEDURE REASON: Lung nodules * * * * Physician Interpretation * * * * EXAMINATION: CHEST CT WITHOUT CONTRAST CLINICAL HISTORY: Lung nodules. History of histoplasmosis dx. Technique: Spiral CT acquisition of the chest from the thoracic inlet to the upper abdomen without contrast. MQ: [id number]_6 CT Radiation dose: Integrated Dose-length product (DLP) for this visit = 392 mGy*cm CT Dose Reduction Employed: Automated exposure control(AEC) and iterative recon . Comparison: 04/15/2023 RESULT: Limitations: None. Lines, tubes, and devices: None. Lung parenchyma, airways: Stable multiple bilateral solid nodules, some nodules associated with faint calcification, multiple nodules with satellite and regional perilymphatic micronodules, for reference: * 7 mm nodule in right upper lobe (7:52) * 10 mm nodule in right middle lobe (7:92) * 9 mm nodule in right lower lobe (7:97) * 7 mm nodule in left upper lobe (7:62) * 9 mm nodule in left lower lobe (7:117). Pleural space: No pleural effusion or discrete nodular thickening. Lower neck, lymph nodes, and mediastinum: No supraclavicular or axillary lymph node enlargement. - Multiple subcentimeter and mildly enlarged intrathoracic lymph nodes, essentially unchanged, some associated with intrinsic faint calcification Heart, pericardium, and thoracic vessels: Normal heart size and pulmonary trunk diameter. No pericardial effusion. Bones and soft tissues: No destructive bone lesion. Right lateral breast 4.2 x 1.6 cm fluid collection, sagittal image 15, likely a postoperative seroma (reported breast reduction surgery). - Resolution or removal of the left breast well-circumscribed cyst Upper abdomen: Normal splenic size. No enlarged lymph nodes Localizer images: No additional findings. IMPRESSION IMPRESSION: Stable lung nodules and faintly calcified thoracic lymphadenopathy, compatible with granulomatous process and likely related to reported histoplasmosis, DDx includes sarcoidosis. Ingot Header: WILL Transcribe Date/Time: Apr 07 2024 10:30A Dictated by : KENYETTA RUVALCABA MD This examination was interpreted and the report reviewed and electronically signed by: VALERIE AYERS MD on Apr 07 2024 11:41AM EST [facility] Radiology Study observation (narrative) [facility] CT Chest WO contrastOrdered By: Ccf Provider on 04-07-2024 [facility] CNPNon 04-01-2024 CNPN Normal [facility] Re-Evaluation - PT (1)on Re-Evaluation - PT (1) [facility] [address] [place] [address] / REEVALUATION / MEDICARE RECERTIFICATION PHYSICAL THERAPY MR#: [id number] Acct: [id number] Name: MATT CALABRESE Rep #: [id number] : 2000 23 From: Evans Matthews PT, ATC Referring DrSarah: OUT OF TOWN DOCTOR Status:REG RCR Insurance: [facility] COMMUNITY PLAN SELF PAY INSURANCE Re-Evaluation Intro: AURY TRISTAN, It has been my pleasure to treat MATT CALABRESE over the last 41 visits for Knee Pain and Hip Pain. Please see the progress note below for an update on the physical therapy plan of care! Subjective Subjective: My knee is still sore. I feel like I need more PT for just the knee Objective Objective/Function: SLS: R LE is greater than 30 sec. L LE only 4 seconds until LOB Gait: Pt is able to ambulate 540 feet until having to rest secondary to L knee pain LBP: 5/10 L knee pain: ranges from 4-5/10 Pt continues to be limited with gait secondary to L knee pain Plan Plan Plan: Attempt to get 8 more visits to focus on L knee strengthening and gait tolerance Balance/Gait/Functional tests Balance/Special Test Scores Oswestry Low Back Score: 19 Lower Extremity Functional Score: 24 Goals Goals Goal 1:: Patient will be I with HEP and progression Goal Time Frame: 4-6 Weeks Goal Progress: Goal Met Goal 2:: Patient will SLS for 15 seconds bilateral without LOB Goal Time Frame: 4-6 Weeks Goal Progress: Progressing Goal 3:: Patient will maintain proper posture t/o tx session to demo increased core s/s Goal Time Frame: 4-6 Weeks Goal Progress: Not observed Goal 4:: Patient will report 80% improvement Goal Time Frame: 4-6 Weeks Goal Progress: Progressing Goal 5:: Decrease LBP x 50% to aid with sleep Goal Progress: Progressing Goal 6:: Pt will be able to ambulate 1000 feet without needing to stop secondary to pain Goal Progress: Progressing Anticipated Interventions Anticipated Interventions Patient/Client Instruction: Educate patient on: Benefits of Fitness Program Therapeutic Exercise to Include: Strength training, Endurance training, Balance training, Agility training, Body mechanics, Postural training, Flexibilty training, Gait and locomotor training, Neuromotor development, Dynamic Lumbar Stabilization and Scapular Strength/Stabilization TENS: Yes Cryotherapy (ice pack, ice massage): Yes Thermo therapy (hot pack): Yes Re-Evaluation Ending Re-evaluation ending: Please do not hesitate to contact me at [phone] by phone or if you have questions or concerns regarding this new plan of care! Sincerely, Evans Matthews PT, ATC 03/28/24 1535 CC: AURY TRISTAN; No Primary Care Physician [facility] Signed For Medicare only, by signing this I certify the plan of care. ___ Physicians Signature Date Normal [facility] Re-Evaluation - PT (1) [facility] [address] [place] [address] / REEVALUATION / MEDICARE RECERTIFICATION PHYSICAL THERAPY MR#: [id number] Acct: [id number] Name: MATT CALABRESE Rep #: [id number] : 2000 23 From: Evans Matthews PT, ATC Referring DrSarah: OUT OF TOWN DOCTOR Status:REG RCR Insurance: [employer] COMMUNITY PLAN SELF PAY INSURANCE Re-Evaluation Intro: AURY TRISTAN, It has been my pleasure to treat MATT CALABRESE over the last 41 visits for Knee Pain and Hip Pain. Please see the progress note below for an update on the physical therapy plan of care! Subjective Subjective: My knee is still sore. I feel like I need more PT for just the knee Objective Objective/Function: SLS: R LE is greater than 30 sec. L LE only 4 seconds until LOB Gait: Pt is able to ambulate 540 feet until having to rest secondary to L knee pain LBP: 5/10 L knee pain: ranges from 4-5/10 Pt continues to be limited with gait secondary to L knee pain Plan Plan Plan: Attempt to get 8 more visits to focus on L knee strengthening and gait tolerance Balance/Gait/Functional tests Balance/Special Test Scores Oswestry Low Back Score: 19 Lower Extremity Functional Score: 24 Goals Goals Goal 1:: Patient will be I with HEP and progression Goal Time Frame: 4-6 Weeks Goal Progress: Goal Met Goal 2:: Patient will SLS for 15 seconds bilateral without LOB Goal Time Frame: 4-6 Weeks Goal Progress: Progressing Goal 3:: Patient will maintain proper posture t/o tx session to demo increased core s/s Goal Time Frame: 4-6 Weeks Goal Progress: Not observed Goal 4:: Patient will report 80% improvement Goal Time Frame: 4-6 Weeks Goal Progress: Progressing Goal 5:: Decrease LBP x 50% to aid with sleep Goal Progress: Progressing Goal 6:: Pt will be able to ambulate 1000 feet without needing to stop secondary to pain Goal Progress: Progressing Anticipated Interventions Anticipated Interventions Patient/Client Instruction: Educate patient on: Benefits of Fitness Program Therapeutic Exercise to Include: Strength training, Endurance training, Balance training, Agility training, Body mechanics, Postural training, Flexibilty training, Gait and locomotor training, Neuromotor development, Dynamic Lumbar Stabilization and Scapular Strength/Stabilization TENS: Yes Cryotherapy (ice pack, ice massage): Yes Thermo therapy (hot pack): Yes Re-Evaluation Ending Re-evaluation ending: Please do not hesitate to contact me at [phone] by phone or if you have questions or concerns regarding this new plan of care! Sincerely, Evans Matthews, PT, ATC 03/28/24 6028 CC: AURY MENADASIAZainab; No Primary Care Physician [facility] Signed For Medicare only, by signing this I certify the plan of care. ___ Physicians Signature Date [facility] CNTHERAPYon 03-07-2024 CNTHERAPY OT/PT/Speech Visit (SPMBMM) ----- MATT CALABRESE ([id number]) 89 Date Time Provider Department 03/07/24 12:00 PM [facility] Date Time Provider Department [place] 03/07/2024 12:00 PM [id number], [facility]ON [facility] Reason for Visit: Speech Instrumental Swallow Eval [3660] Speech Discharge [3488] Primary Visit Diagnosis:Dysphagia, unspecified type [R13.10] Allergies As of Date: 03/07/2024 Noted Allergy Reaction PENICILLINS 05/30/2020 4 - Hives 16 - Unknown Comments: Other reaction(s): Hives AMOXICILLIN 03/22/2022 4 - Hives AZITHROMYCIN 03/22/2022 4 - Hives 9 - Itching CLARITHROMYCIN 06/28/2021 4 - Hives TRAZODONE 11/14/2022 14 - Other: See Comments Comments: Suicidal ideations Other reaction(s): Suicidal ideation Date Reviewed: 02/26/2024 Reviewed by: Esther Modi LPN - Fully Assessed Prescriptions as of 03/12/2024 - acetaminophen (TYLENOL EXTRA STRENGTH) 500 mg tablet Take 1-2 tablets by mouth every 6 hours as needed for pain. Two (2) X 500 mg tablets = 1,000 mg - docusate sodium (COLACE) 100 mg capsule Take 1 capsule by mouth two times a day. - ondansetron orally disintegrating (ZOFRAN ODT) 4 mg disintegrating tablet Take 1 tablet by mouth every 8 hours as needed. - prazosin (MINIPRESS) 1 mg cap Take 1 mg by mouth once daily. - ketoconazole (NIZORAL) 2 % shampoo - sumatriptan succ/naproxen sod (SUMATRIPTAN-NAPROXEN ORAL) Take 1 tablet by mouth as needed. - Flaxseed Oil oil Take 1 capsule by mouth two times a day. - magnesium oxide (MAG-OXIDE ORAL) Take 1 tablet by mouth once daily. - naltrexone 50 mg tablet Take 50 mg by mouth once daily. - QUEtiapine XR (SEROQUEL XR) 50 mg Tb24 Take 50 mg by mouth daily at bedtime. - cholecalciferol, Vitamin D3, (VITAMIN D3) 1,250 mcg (50,000 unit) cap capsule Take 1 capsule by mouth one time a week. - hydrOXYzine HCl (ATARAX) 25 mg tablet TAKE 1/2 TABLET BY MOUTH 4 TIMES A DAY NEEDED FOR ANXIETY, IF TOLERATED WITHOUT EXCESSIVE TIREDNESS CAN TAKE FULL TAB Letter Text [facility] XR MOD BARIUM SWALLOW W KEITH [place] 03-07-2024 XR MOD BARIUM SWALLOW W SPEECH * * *Final Report* * * DATE OF EXAM: Mar 07 2024 12:40PM MMX [id number] - XR MOD BARIUM SWALLOW W SPEECH / PROCEDURE REASON: Dysphagia, unspecified type * * * * Physician Interpretation * * * * FLUOROSCOPY USED DURING SWALLOW EVALUATION. XR MOD BARIUM SWALLOW W SPEECH HISTORY: Dysphagia, unspecified type TECHNIQUE: Fluoroscopy was used during swallowing analysis performed by the speech pathologist. Fluoroscopic Radiation Summary: Plane A, Air Kerma: 43.3 mGy Dose Area Product (DAP): Fluoro time: 3:06 min:sec RESULT: Fluoroscopy was provided during performance of a swallowing evaluation by the speech pathologist. - IMPRESSION: REFER TO THE SPEECH PATHOLOGIST REPORT AND RECOMMENDATIONS. Ingot Header: WILL Transcribe Date/Time: Mar 10 2024 8:54A Dictated by : REHANA HAN MD This examination was interpreted and the report reviewed and electronically signed by: REHANA HAN MD on Mar 10 2024 8:54AM EST [id number] [facility] XR CHEST 2 VIEWSon XR CHEST 2 VIEWS ORIGINAL EXAMINATION: TWO XRAY VIEWS OF THE CHEST03/05/2024 2:31 pm COMPARISON: Chest radiograph 03/30/2023 HISTORY: ORDERING SYSTEM PROVIDED HISTORY: Reason for Exam: shortness of breath, cough FINDINGS: The cardiomediastinal silhouette is stable. There is no pulmonary vascular congestion. There is no focal consolidation. No pleural effusion. No pneumothorax. Slight eventration of the right hemidiaphragm. No acute osseous abnormality by radiograph; osseous detail is limited. IMPRESSION: No acute cardiopulmonary process. I have personally reviewed the images of this examination and agree with the resident's findings and interpretation. Interpreted by: Eliceo Albert DO Preliminary Report By: Man Bonds Electronically signed By Eliceo Albert DO Dictated Date: 03/05/2024 2:40:58 PM Prelim Date: 03/05/2024 2:59:14 PM Sign Date: 03/05/2024 2:59:14 PM Ordering Provider: JACK PRIEST [facility] US BREAST LEFT LIMITEDon US BREAST LEFT LIMITED ORIGINAL FROM: [place] [address] PROCEDURE FOR: MATT CALABRESE [address] [place] [address] Home: PID#: [id number] Exam#: [id number] : 2000 Age: 23 TO: JACK PRIEST PHARMACY CLERK [place] [address] Fax: NO FAX EXAMINATION: ULTRASOUND OF THE LEFT BREAST 02/28/2024 9:49 am TECHNIQUE: Color flow and snell scale targeted ultrasound of the left breast 6-10 o'clock region were performed. Permanently stored images were reviewed. COMPARISON: 01/01/2024, 04/23/2023 HISTORY: ORDERING SYSTEM PROVIDED HISTORY: Reason for Exam: left breast firm, tender area from 5 o'clock to 7 o'clock. Tender FINDINGS: The skin is mildly at edematous in the left breast correlating with the area of the patient's firmness/tenderness. There is no drainable fluid collection. Otherwise, there are no significant sonographic findings to correlate with the patient's pain. The previously identified mass/complicated cyst in the left breast at 9 o'clock is no longer seen and was probably removed during the patient's reduction. IMPRESSION: The skin is mildly edematous in the area of clinical concern. No drainable fluid collection. Clinical follow up is recommended. Previously identified mass/complicated cyst in the left breast at 9 o'clock is no longer seen and was probably removed during the patient's breast reduction. This does not require any additional dedicated imaging follow-up. BIRADS: BI-RADS: 2: Benign RECALL: none RECALL TYPE: unspecified LETTER SENT: Normal BI-RADS 1 and 2 Interpreted by: Abdi Chávez MD Preliminary Report By: Abdi Chávez MD Electronically signed By Abdi Chávez MD Dictated Date: 02/28/2024 10:20:46 AM Prelim Date: 02/28/2024 10:24:42 AM Sign Date: 02/28/2024 10:24:42 AM Ordering Provider: JACK PRIEST CLINICAL: LEFT BREAST PAIN. 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 Cardiolipin IgG values obtained with the different manufacturers' assay methods may not be used interchangeably. The magnitude of the reported IgG levels cannot be correlated to an endpoint titer. Performed By: #### 5 076-5ANDERS CARDIG ####[facility] LABCLIA [id number] [address] [place] CARDIOLIPIN IGM ABSon 2023 Cardiolipin IgM IA Qn (S) <9.0 Normal <12.5 [facility] Comment on above: Order Comment: Speci men Type: BLOOD SPECIMENOrdering Facility: [facility] Address: [address] [place] [address] Result Comment: <12. 5 MPL Ablonjnz08.5-20 MPL Indeterminate>20 MPL PositiveThe following results were obtained with the Tackk[employer] Lite JUDSON IgM III ISABELLA. Cardiolipin IgM values obtained with the different manufacturers' assay methods may not be used interchangeably. The magnitude of the reported IgM levels cannot be correlated to an endpoint titer.??? Performed By: #### 5 076-5, GARRICK MCNAMARA ####[facility] LABIA [id number] [address] [place] COAG CORE PANEL BLDon 2023 aPTT Coag (PPP) [Time] 25.9 s Normal 23.0-32.4 [facility] Comment on above: Order Comment: Speci men Type: BLOOD SPECIMENOrdering Facility: [facility] Address: [address] [place] [address] Performed By: #### C ORPNL ####[facility] LABIA [id number] [place] [address] [place] Fibrinogen Coag (PPP) [Mass/Vol] 358 mg/dL Normal 200-400 [facility] Comment on above: Order Comment: Speci men Type: BLOOD SPECIMENOrdering Facility: [facility] Address: [address] [place] [address] Performed By: #### C ORPNL ####[facility] LABIA [id number] [place] [address] [place] PT Coag (PPP) [Time] 10.3 s Normal 9.7-13.0 [facility] Comment on above: Order Comment: Speci men Type: BLOOD SPECIMENOrdering Facility: [facility] Address: [address] [place] [address] Performed By: #### C ORPNL ####[facility] LABCLIA [id number] [place] [address] [place] CRP SerPl-mCncon 02-27-2024 CRP [Mass/Vol] 0.9 mg/dL High <0.9 [facility] Comment on above: Order Comment: Speci men Type: BLOOD SPECIMENOrdering Facility: [facility] Address: [address] [place] [address] Performed By: #### 1 988-5 ####[facility] LABIA [id number] [address] [place] Cardiolipin IgA Ser IA-aCnco n 02-27-2024 Cardiolipin IgA IA Qn (S) <9.0 Normal <12.0 [facility] Comment on above: Order Comment: Speci men Type: BLOOD SPECIMENOrdering Facility: [facility] Address: [address] [place] [address] Result Comment: <12 APL [id number] APL Indeterminate>20 APL PositiveThe following results were obtained with the [employer] QUANTA Lite JUDSON IgA III ISABELLA. Cardiolipin IgA values obtained with the different manufacturers' assay methods may not be used interchangeably. The magnitude of the reported IgA levels cannot be correlated to an endpoint titer. Performed By: #### 5 076-5, GARRICK MCNAMARA ####[facility] LABIA [id number] [place] [address] [place] HYPERCOAG PANELon 02-27-2024 Activated protein C resistance Coag (PPP) [Time ratio] 2.37 Ratio Normal >1.96 [facility] Comment on above: Order Comment: Speci men Type: BLOOD SPECIMENOrdering Facility: [facility] Address: [address] [place] [address] Performed By: #### H COAG ####[facility] LABCLIA [id number] [place] [address] [place] Antithrombin actual/normal Chromogenic method (PPP) [Rel catalytic activity/Vol] 114 % Normal 84-138 [facility] Comment on above: Order Comment: Speci men Type: BLOOD SPECIMENOrdering Facility: [facility] Address: [address] [place] [address] Performed By: #### H COAG ####[facility] [id number] [address] [place] aPTT Coag (Bld) [Time] 24.0 s Normal 24.0-35.1 [facility] Comment on above: Order Comment: Speci men Type: BLOOD SPECIMENOrdering Facility: [facility] Address: [address] [place] [address] Performed By: #### H COAG ####[facility] [id number] [address] [place] aPTT W excess hexagonal phase phospholipid Coag (PPP) [Time] 43.1 seconds Normal 34.0-51.8 [facility] Comment on above: Order Comment: Speci men Type: BLOOD SPECIMENOrdering Facility: [facility] Address: [address] [place] [address] Performed By: #### H COAG ####[facility] [id number] [address] [place] Coagulation factor VIII activity actual/normal Coag (PPP) [Relative time] 218 % High 50-173 [facility] Comment on above: Order Comment: Speci men Type: BLOOD SPECIMENOrdering Facility: [facility] Address: [address] [place] [address] Result Comment: This test was developed, and its performance characteristics determined by the [facility] Department of Pathology and Laboratory Medicine. It has not been cleared or approved by the FDA. The [facility] Department of Pathology and Laboratory Medicine is regulated under CLIA as qualified to perform high-complexity testing. This test is used for clinical purposes. It should not be regarded as investigational or for research. Performed By: #### H COAG ####[facility] [id number] [address] STATES OF [facility] Performed By: #### L [id number] ####[facility] [id number] [address] STATES [facility] Coagulation factor X activated act Coag Qn (PPP) <0.10 Normal <0.10 [facility] Comment on above: Order Comment: Speci men Type: BLOOD SPECIMENOrdering Facility: [facility] Address: [address] [place] [address] Result Comment: This test was developed, and its performance characteristics determined by the [facility] Department of Pathology and Laboratory Medicine. It has not been cleared or approved by the FDA. The [facility] Department of Pathology and Laboratory Medicine is regulated under CLIA as qualified to perform high-complexity testing. This test is used for clinical purposes. It should not be regarded as investigational or for research. Performed By: #### H COAG ####[facility] [id number] [place] [address] [place] Delta dRVVT Coag (PPP) [Time diff] 3.9 delta seconds Normal <7.1 [facility] Comment on above: Order Comment: Speci men Type: BLOOD SPECIMENOrdering Facility: [facility] Address: [address] [place] [address] Performed By: #### H COAG ####[facility] [id number] [place] [id number] [place] dRVVT W excess hexagonal phase phospholipid actual/normal Coag (PPP) [Relative time] 39.2 seconds Normal 34.2-47.9 [facility] Comment on above: Order Comment: Speci men Type: BLOOD SPECIMENOrdering Facility: [facility] Address: [address] [place] [address] Performed By: #### H COAG ####[facility] [id number] [place] [address] [place] Protein C actual/normal Coag (PPP) [Relative time] 118 % Normal 76-147 [facility] Comment on above: Order Comment: Speci men Type: BLOOD SPECIMENOrdering Facility: [facility] Address: [address] [place] [address] Performed By: #### H COAG ####[facility] LABCLIA [id number] [place] [address] [place] Protein S actual/normal Coag (PPP) [Relative time] 99 % Normal 59-152 [facility] Comment on above: Order Comment: Speci men Type: BLOOD SPECIMENOrdering Facility: [facility] Address: [address] [place] [address] Performed By: #### H COAG ####[facility] LABCLIA [id number] [place] [address] [place] Thrombin time Coag (PPP) [Time] 17.8 seconds Normal <18.6 [facility] Comment on above: Order Comment: Speci men Type: BLOOD SPECIMENOrdering Facility: [facility] Address: [address] [place] [address] Performed By: #### H COAG ####[facility] LABCLIA [id number] [place] [address] [place] Hematocrit Auto (Bld) [Volum e fraction]on 02-27-2024 Hematocrit (Bld) [Volume fraction] 36.4 % Normal 36.0-46.0 [facility] Comment on above: Order Comment: Speci men Type: BLOOD SPECIMENOrdering Facility: [facility] Address: [address] [place] [address] Performed By: #### 7 77-3, 4544-3 ####[facility] [id number] [place] [address] [place] INSLNon 02-27-2024 Insulin 134.79 munit/L High 2.60-37.60 [facility] Comment on above: Performed By: #### A SAMUEL, FES, CBC, A1C, FERR, ADIFF #### [facility] [address] [place], [place] [address] #### B12, FOL, INSLN #### [facility] [address] [place] [address] LABORATORYOrdered By: SYSTEM SYSTEM on 02-27-2024 Insulin Qn 134.79 munit/L High 2.60 - 37.60 mU/L AH ADM SS PLATELET FUNCTION SCREENon 1 Platelet function (closure time) collagen+ADP induced (Bld) [Time] 63 CT (seconds) Normal <118 [facility] Comment on above: Order Comment: Speci men Type: BLOOD SPECIMENOrdering Facility: [facility] Address: [address] [place] [address] Performed By: #### P LTSCN ####[facility] [id number] [address] OF [facility] Platelet function (closure time) collagen+EPINEPHrine induced (Bld) [Time] 86 CT (seconds) Normal <194 [facility] Comment on above: Order Comment: Specnevin alonzo Type: BLOOD SPECIMENOrdering Facility: [facility] Address: [address] [place] [address] Performed By: #### P LTSCN ####[facility] [id number] [address] OF [place] PROTHROMBIN GENE PCRon 02-26 PROTHROMBIN GENE MUTATION Normal [facility] Comment on above: Order Comment: Speci cheri Type: BLOOD SPECIMENOrdering Facility: [facility] Address: [address] [place] [address] Result Comment: Prot hrombin Gene MutationLaboratory Accession Number: [id number]:NORMALInterpretation:The DNA sample is negative for the c.*97G>A variant (legacy uevy03998I>A) in the 3' untranslated region of the Factor II (F2) gene.This result is not associated with an increased risk of thromboembolicdisease. Thromboembolic disease is a multifactorial disorder and othercauses are not excluded by this result.Methodology:Isolated Genomic DNA from the patient's blood specimen is evaluatedfor the c*97G>A (g.91175205) variant of the F2 gene [RefSeqNM_[id number];GRCh38/hg38] by multiplex polymerase chain reaction(PCR) followed by melting curve analysis.Limitations:This assay is designed to detect the c.*97G>A (11712N>A) variant inthe F2 gene. Uncommon variants or single nucleotide polymorphisms mayaffect binding of probes and may rarely result in false negative,false positive or indeterminate results. This assay does not detectother disease-associated rare variants in F2 or other causes ofthromboembolic disease.Disclaimer:This test was developed and its performance characteristics determinedby [facility]'s [facility] Medicine Department. Ithas not been cleared or approved by the FDA. [facility] is regulated under CLIAas certified to perform high-complexity testing. This test is used forclinical purposes. It should not be regarded as investigational or forresearch.Testing and interpretation performed at [facility], [address] [place] [address]. CLIA Number: [id number]:1) Inheritied Thrombophilias in . ACOG Practice Bulletin. No.197. [place] [employer]. ObseteGynecol 2018;132:e18-34.2) Agat SR, Yvonne FR, Remarkel PH, and Cheri GLASS. A commongenetic variation in the 3'-untranslated region of the prothrombingene is associated with elevated plasma prothrombin levels and anincrease in venous thrombosis. Blood 88:3698-703, 1995.3) Da I, Lilian V, Heri C, Maya K. Xhrvzrpwtnf44605W>T: 16 new cases, association with the 39726P>G polymorphism,and literature review. J Thromb Haemost. 2009;9:1585-7.As reviewed by Adali La MD Performed By: #### P TGEN ####[facility] [id number] [place] [id number] [place] PT Pnl PPPon 02-27-2024 INR Coag (PPP) [Relative time] 1.0 {INR} Normal 0.9-1.3 [facility] Comment on above: Order Comment: Speci cheri Type: BLOOD SPECIMENOrdering Facility: [facility] Address: [address] [place] [address] Result Comment: Isis min K Antagonist (VKA) Therapeutic Range: INR 2 to 3 (Target INR of 2.5)Note: For patients treated with VKA drugs, such as warfarin, the [place] [employer] 2012 Guideline recommends a therapeutic INR range of 2 to 3 (target INR of 2.5). This recommendation includes high-risk patients with antiphospholipid syndrome with previous arterial or venous thromboembolism, current-generation mechanical or bioprosthetic aortic heart valve replacement.Note: Patients with mechanical aortic valve replacement and additional risk factors for thromboembolic events (atrial fibrillation, previous thromboembolism, LV dysfunction, hypercoagulable conditions) or an older generation mechanical AVR (i.e., ball in-Cage) or any mechanical MVR should have a INR therapeutic range of 2.5 to 3.5 (target INR of 3).Datt GH, et al. Chest 2012, 141:7S-47SNishimura RA, et al. JAC 2017, 70: 252-289 Performed By: #### 1 4979-9, 93230-5 ####[facility] [id number] [place] [address] [place] Performed By: #### C ORPNL ####[facility] LABCLIA [id number] [address] [address] [place] PT panel Coag (PPP)on 2023 PT Coag (PPP) [Time] 9.8 s Normal <13.1 [facility] Comment on above: Order Comment: Speci men Type: BLOOD SPECIMENOrdering Facility: [facility] Address: [address] [place] [address] Performed By: #### 1 4979-9, 08122-9 ####[facility] [id number] [place] [address] [place] Platelets Auto (Bld) [#/Vol] on 02-27-2024 Platelets (Bld) [#/Vol] 261 10*3/uL Normal 150-400 [facility] Comment on above: Order Comment: Speci men Type: BLOOD SPECIMENOrdering Facility: [facility] Address: [address] [place] [address] Performed By: #### 7 77-3, 4544-3 ####[facility] [id number] [place] [address] [place] TYPE + SCREENon 02-27-2024 ABO A Normal [facility] Comment on above: Order Comment: Speci men Type: BLOOD SPECIMENOrdering Facility: [facility] Address: [address] [place] [address] Performed By: #### T SCR ####[facility] BANKCLIA [id number] [place] [address] [place] Rh Nom (Bld) Positive Normal [facility] Comment on above: Order Comment: Speci men Type: BLOOD SPECIMENOrdering Facility: [facility] Address: [address] [place] [address] Performed By: #### T SCR ####[facility]LO[facility] BANKCLIA [id number] [place] [address] [place] TYPE AND SCREEN EXPIRATION 03/01/2024 23:59 Normal [facility] Comment on above: Order Comment: Speci men Type: BLOOD SPECIMENOrdering Facility: [facility] Address: [address] [place] [address] Performed By: #### T SCR ####[facility]LO[facility] BANKCLIA [id number] [place] [address] [place] VON WILLEBRAND PNL (VWFPN)on 02-27-2024 Bound rFVIII/vWf Ag IA (P) [Relative ratio] 1.3 Normal >=0.5 [facility] Comment on above: Order Comment: Speci cheri Type: BLOOD SPECIMENOrdering Facility: [facility] Address: [address] [place] [address] Performed By: #### L [id number] ####[facility] LABIA [id number] [place] [address] [place] GPIBM ACTIVITY >160 High 44-156 [facility] Comment on above: Order Comment: Speci men Type: BLOOD SPECIMENOrdering Facility: [facility] Address: [address] [place] [address] Result Comment: This test was developed, and its performance characteristics determined by the [facility] Department of Pathology and Laboratory Medicine. It has not been cleared or approved by the FDA. The [facility] Department of Pathology and Laboratory Medicine is regulated under CLIA as qualified to perform high-complexity testing. This test is used for clinical purposes. It should not be regarded as investigational or for research. Performed By: #### L [id number] ####[facility] LABIA [id number] [place] [address] [place] Platelet aggregation ristocetin induced Ql (PRP) Essentially normal dose response Abnormal Normal dose response [facility] Comment on above: Order Comment: Colettei cheri Type: BLOOD SPECIMENOrdering Facility: [facility] Address: [address] [place] [address] Result Comment: Revi ewed by Manda No MD ([id number]) Performed By: #### L [id number] ####[facility] LABIA [id number] [place] [address] [place] vWf Ag actual/normal [place] (PPP) [Relative mass conc] 165 % Normal 50-173 [facility] Comment on above: Order Comment: Ronnie cheri Type: BLOOD SPECIMENOrdering Facility: [facility] Address: [address] [place] [address] Performed By: #### L [id number] ####[facility] [id number] [place] [address] [place] vWf multimers Ql (PPP) Normal [facility] Comment on above: Order Comment: Ronnie alonzo Type: BLOOD SPECIMENOrdering Facility: [facility] Address: [address] [place] [address] Result Comment: Assa y of von Willebrand multimers was performed by an agarose gel electrophoresis followed by immunofixation with anti-von Willebrand factor antiserum. There is a normal multimer distribution with high intensity of bands.Reviewed by Priscilla Haas M.D., Ph.D.This test was developed, and its performance characteristics determined by the [facility] Department of Pathology and Laboratory Medicine. It has not been cleared or approved by the FDA. The [facility] Department of Pathology and Laboratory Medicine is regulated under CLIA as qualified to perform high-complexity testing. This test is used for clinical purposes. It should not be regarded as investigational or for research. Performed By: #### L [id number] ####[facility] [id number] [place] [address] [place] vWf ristocetin cofactor act/vWf Ag (PPP) [Ratio] 1.2 Normal >=0.5 [facility] Comment on above: Order Comment: Ronnie alonzo Type: BLOOD SPECIMENOrdering Facility: [facility] Address: [address] [place] [address] Performed By: #### L [id number] ####[facility] [id number] [address] OF [place] vWf ristocetin cofactor Qn (PPP) 194 % High 42-146 [facility] Comment on above: Order Comment: Ronnie alonzo Type: BLOOD SPECIMENOrdering Facility: [facility] Address: [address] [place] [address] Result Comment: This test was developed, and its performance characteristics determined by the [facility] Department of Pathology and Laboratory Medicine. It has not been cleared or approved by the FDA. The [facility] Department of Pathology and Laboratory Medicine is regulated under CLIA as qualified to perform high-complexity testing. This test is used for clinical purposes. It should not be regarded as investigational or for research. Performed By: #### L [id number] ####[facility] [id number] [address] vWf.collagen binding activity actual/normal [place] (PPP) [Relative ratio] 171 % High 41-161 [facility] Comment on above: Order Comment: Ronnie alonzo Type: BLOOD SPECIMENOrdering Facility: [facility] Address: [address] [place] [address] Result Comment: This test was developed, and its performance characteristics determined by the [facility] Department of Pathology and Laboratory Medicine. It has not been cleared or approved by the FDA. The [facility] Department of Pathology and Laboratory Medicine is regulated under CLIA as qualified to perform high-complexity testing. This test is used for clinical purposes. It should not be regarded as investigational or for research. Performed By: #### L [id number] ####[facility] [id number] [address] vWf.collagen binding activity/vWf Ag IA (PPP) [Ratio] 1.0 Normal >=0.6 [facility] Comment on above: Order Comment: Ronnie alonzo Type: BLOOD SPECIMENOrdering Facility: [facility] Address: [address] [place] [address] Performed By: #### L [id number] ####[facility] [id number] [address] [place] aPTT PPPon 02-27-2024 aPTT Coag (PPP) [Time] 24.7 s Normal 23.0-32.4 [facility] Comment on above: Order Comment: Ronnie alonzo Type: BLOOD SPECIMENOrdering Facility: [facility] Address: [address] [place] [address] Performed By: #### 1 4979-9, 87688-0 ####[facility] [id number] [address] [facility] CNOVon 02-26-2024 CNOV Normal [facility] STREP A MOLECULAR (POC)on Procedural Control Valid [facility] Strep A (POCT) Negative Negative [facility] CNPNon 02-22-2024 CNPN Normal [facility] CNOVSPon 02-20-2024 CNOVSP Normal [facility] CNPNon 02-20-2024 CNPN Normal [facility] Re-Evaluation - PT (1)on Re-Evaluation - PT (1) [facility] [address] [place] [address] / REEVALUATION / MEDICARE RECERTIFICATION PHYSICAL THERAPY MR#: [id number] Acct: [id number] Name: MATT CALABRESE Rep #: [id number] : 2000 23 From: Evans Matthews PT, ATC Referring Dr.: OUT OF TOWN DOCTOR Status:REG RCR Insurance: [facility] [employer] PLAN SELF PAY INSURANCE Re-Evaluation Intro: AURY TRISTAN, It has been my pleasure to treat MATT CALABRESE over the last 30 visits for Knee Pain and Hip Pain. Please see the progress note below for an update on the physical therapy plan of care! Subjective Subjective: Pt reports she feels like she has made improvements, but keeps having set backs secondary to health issues. Objective Objective/Function: LBP 11/27 pain this date. SLS: Pt is only able to stand on L LE for 5 seconds until LOB Gait: Pt is able to ambulate 340 feet until needing to stop secondary to knee and LBP Pt is still limited with LBP and L knee pain with all weightbearing activity. Plan Plan Plan: 02/20/24- Continue to progress core strengthening ex's at this time. Add L SL stance and balance activity as well 12/27/23: Continue 2x a week for 4 weeks. Discharge all current exercises to HEP and progress to new more challenging exercises- if pt can't tolerate new exercises then d/c to current program. 11/26/23: Continue with 2x/week for 6 weeks- core s/s with ext-bias as joshua - increase to 60 min session to add in LE strength exercises. Focus on LE and core strength/stabilization. Pt will watch how her left arm feels later today. Balance/Gait/Functional tests Balance/Special Test Scores Oswestry Low Back Score: 19 Lower Extremity Functional Score: 24 Goals Goals Goal 1:: Patient will be I with HEP and progression Goal Time Frame: 4-6 Weeks Goal Progress: Goal Met Goal 2:: Patient will SLS for 15 seconds bilateral without LOB Goal Time Frame: 4-6 Weeks Goal Progress: Progressing Goal 3:: Patient will maintain proper posture t/o tx session to demo increased core s/s Goal Time Frame: 4-6 Weeks Goal Progress: Not observed Goal 4:: Patient will report 80% improvement Goal Time Frame: 4-6 Weeks Goal Progress: Progressing Goal 5:: Decrease LBP x 50% to aid with sleep Goal Progress: New goal Goal 6:: Pt will be able to ambulate 1000 feet without needing to stop secondary to pain Goal Progress: New goal Anticipated Interventions Anticipated Interventions Patient/Client Instruction: Educate patient on: Benefits of Fitness Program Therapeutic Exercise to Include: Strength training, Endurance training, Balance training, Agility training, Body mechanics, Postural training, Flexibilty training, Gait and locomotor training, Neuromotor development, Dynamic Lumbar Stabilization and Scapular Strength/Stabilization TENS: Yes Cryotherapy (ice pack, ice massage): Yes Thermo therapy (hot pack): Yes Re-Evaluation Ending Re-evaluation ending: Please do not hesitate to contact me at [phone] by phone or if you have questions or concerns regarding this new plan of care! Sincerely, Evans Matthews, PT, ATC 02/20/24 0954 CC: AURY TRISTAN; No Primary Care Physician [facility] Signed For Medicare only, by signing this I certify the plan of care. ___ Physicians Signature Date Normal [facility] GENETIC SENDOUTon 02-15-2024 Genetic Test Name CancerNext-Expanded Panel Normal [facility] Comment on above: Order Comment: Name of Test:->CancerNext-Expanded Panel Billing type:->Direct Specimen Type->Blood Specimen requirements:->3 ml in edta and 1.5 ml in pax Specimen Tube->EDTA and PAX What is the sendout facility name, if known?->[facility] Performed By: #### 1 170 #### MARQUITA Allen ([id number]) [address] Genetic Test Reference Lab [facility] Comment on above: Order Comment: Name of Test:->CancerNext-Expanded Panel Billing type:->Direct Specimen Type->Blood Specimen requirements:->3 ml in edta and 1.5 ml in pax Specimen Tube->EDTA and PAX What is the sendout facility name, if known?->[facility] Performed By: #### 1 170 #### MARQUITA Allen ([id number]) [address] Miscellaneous Results Patient results sc anned into [facility] Comment on above: Order Comment: Name of Test:->CancerNext-Expanded Panel Billing type:->Direct Specimen Type->Blood Specimen requirements:->3 ml in edta and 1.5 ml in pax Specimen Tube->EDTA and PAX What is the sendout facility name, if known?->[facility] Performed By: #### 1 170 #### MARQUITA Allen ([id number]) [address] CNOVon 02-06-2024 CNOV Normal [facility] CNPNon 02-05-2024 CNPN Normal [facility] CNOVon 02-01-2024 CNOV Normal [facility] CNOVon 01-25-2024 CNOV Normal [facility] CNPNon 01-24-2024 CNPN Normal [facility] ANES POSTPROC EVALon 024 ANES POSTPROC EVAL [facility] ANES PRE-OPon 01-22-2024 ANES PRE-OP Normal [facility] BRIEF OP NOTon 01-22-2024 BRIEF OP NOT Normal [facility] HISTORY PHYSICALon HISTORY PHYSICAL Normal [facility] OPERATIVE NOon 01-22-2024 OPERATIVE NO Normal [facility] SURGICAL PATHOLOGYon 024 CASE REPORT Normal [facility] Comment on above: Order Comment: Speci men Type: TISSUE SPECIMENOrdering Facility: [facility] Address: [address] [place] [address] Result Comment: Surg ical Pathology Report Case: [id number] Provider: Stacy Segura MD Collected: 01/22/2024 08:07 AMOrdering Location: Ambulatory Surgery Received: 01/22/2024 10:45 AMPathologist: Jocy Noyola MDSpecimens: A) - Breast Reduction/Revision, Left, Mammoplasty B) - Breast Reduction/Revision, Right, Mammoplasty Performed By: #### S ####[facility] LABCLIA [id number] [place] [address] [place] CLINICAL HISTORY Normal [facility] Comment on above: Order Comment: Speci men Type: TISSUE SPECIMENOrdering Facility: [facility] Address: [address] [place] [address] Result Comment: Pre- op diagnosis:Macromastia [N62]Chronic bilateral low back pain without sciatica [M54.50, G89.29]Neck pain [M54.2]Intertrigo [L30.4] Performed By: #### S ####[facility] LABIA [id number] [place] [address] [place] FINAL DIAGNOSIS Normal [facility] Comment on above: Order Comment: Speci men Type: TISSUE SPECIMENOrdering Facility: [facility] Address: [address] [place] [address] Result Comment: A. L eft breast, reduction/revision mammoplasty:- Unremarkable breast parenchyma and skin.B. Right breast, reduction/revision mammoplasty:- Breast tissue with fibroadenomatoid change.- Unremarkable skin. Performed By: #### S ####[facility] LABCLIA [id number] [address] [place] FINAL PERFORMING LAB Normal [facility] Comment on above: Order Comment: Speci men Type: TISSUE SPECIMENOrdering Facility: [facility] Address: [address] [place] [address] Result Comment: Diag nostic interpretation performed at [facility], [address] [place] [address] CLIA# [id number] Director: John Zuluaga M.D. Performed By: #### S ####[facility] LABCLIA [id number] [address] STATES OF [facility] GROSS DESCRIPTION Normal [facility] Comment on above: Order Comment: Speci men Type: TISSUE SPECIMENOrdering Facility: [facility] Address: [address] [place] [address] Result Comment: A. B reast Reduction/Revision, Left, MammoplastyReceived formalin labeled as breast reduction revision left mammoplasty are multiple fragments of fibrofatty breast tissue and skin aggregating to 28.0 x 17.0 x 6.5 cm and 728.4 g. The fragments of skin are unremarkable. Sectioning reveals a chester-yellow cut surface with irregular rubbery streaks composing approximately 50% of the specimen. Donor Relations Coordinator sections are submitted in one cassette.B. Breast Reduction/Revision, Right, MammoplastyReceived in formalin labeled as breast reduction revision mammoplasty right are multiple fragments of fibrofatty breast tissue and skin aggregating to 27.0 x 26.0 x 5.2 cm and 872.4 g. The fragments of skin are unremarkable. Sectioning reveals a chester-yellow cut surface with irregular rubbery streaks composing approximately 50% of the specimen. Donor Relations Coordinator sections are submitted in one cassette.MLG January 22, 2024 4:44 PMGross examination performed at [facility], [address] [place] [address] Performed By: #### S ####[facility] LABCLIA [id number] [place] [address], [place] [address] [place] [facility] CNOVon 01-18-2024 CNOV Normal [facility] HISTORY PHYSICALon HISTORY PHYSICAL Normal Lacy yuen On License Of [facility] CNPNon 01-16-2024 CNPN Normal [facility] CNPNon 01-15-2024 CNPN Normal [facility] CNOVon 01-07-2024 CNOV Office Visit (AGSPIN E3) ----- MATT CALABRESE ([id number]) 89 F Date Time Provider Department 01/07/24 1:00 PM TAMARA MAXWELL AGSPINE3 During your visit today, we recorded the following information about you: Pulse Respiration Last Period Normal [facility] US BREAST LEFT LIMITEDon US BREAST LEFT LIMITED ORIGINAL FROM: [address] [address] PROCEDURE FOR: MATT CALABRESE [address] [place] [address] Home: PID#: [id number] Exam#: [id number] : 2000 Age: 23 TO: JACK PRIEST APRN [address] [address] Fax: NO FAX EXAMINATION: ULTRASOUND OF THE LEFT BREAST 01/01/2024 1:16 pm TECHNIQUE: Color flow and snell scale targeted ultrasound of the left breast 9 o'clock were performed. Permanently stored images were reviewed. COMPARISON: 04/23/2023 HISTORY: ORDERING SYSTEM PROVIDED HISTORY: Reason for Exam: lt breast lesion follow up from [facility] Follow-up left breast cyst 9 o'clock FINDINGS: There is a 1.2 cm oval circumscribed hypoechoic mass in the left breast at 9 o'clock middle depth 5 cm from the nipple. This appears to be decreased in size from the prior exam. However, there are more internal echoes. There is posterior acoustic enhancement.. No vascularity is present. IMPRESSION: The 1.2 cm mass in the left breast at 9 o'clock is most likely a complicated cyst and is probably benign. A six-month follow-up left breast ultrasound is recommended to demonstrate stability. Given the patient's risk and family history, annual MRI screening should begin at age 25 and annual screening mammography should begin at age 30. [facility] risk calculations, generated with the history provided, report this patient's 10 year risk and lifetime risk for developing breast cancer at 3.2% and 41.6%, respectively. Based on this assessment tool, if the patient's calculated lifetime risk is below 20%, then the patient is considered at average risk for developing breast cancer. If the patient's calculated lifetime risk is at or above 20%, then the patient is considered high risk for developing breast cancer and may be a candidate for supplemental breast MRI screening in addition to annual mammographic screening per the [place]. BIRADS: BI-RADS: 3: Probably Benign RECALL: 6 month follow-up RECALL TYPE: Left US LETTER SENT: Probably Benign BI-RADS 3 Interpreted by: Abdi Chávez MD Preliminary Report By: Abdi Chávez MD Electronically signed By Abdi Chávez MD Dictated Date: 01/01/2024 1:51:32 PM Prelim Date: 01/01/2024 1:56:46 PM Sign Date: 01/01/2024 1:56:46 PM Ordering Provider: JACK PRIEST CLINICAL: 6 MONTHS FOLLOW-UP. Welding Equipment Repairer Supervisor: ANDIE VELEZ RT (R, CT), RDDC letter sent: Probably Benign BI-RADS 3 Ultrasound BI-RADS: 3 Probably benign Normal [facility] ([place]) CNOVon 12-31-2023 CNOV Normal [facility] CNPNon 12-28-2023 CNPN Normal [facility] Re-Evaluation - PT (1)on Re-Evaluation - PT (1) [facility] [place] [address] / REEVALUATION / MEDICARE RECERTIFICATION PHYSICAL THERAPY MR#: [id number] Acct: [id number] Name: MATT CALABRESE Rep #: [id number] : 2000 23 From: Sandi Barnard DPT Referring DrSarah: OUT OF TOWN DOCTOR Status:REG RCR Insurance: [facility] [employer] SELF PAY INSURANCE Re-Evaluation Intro: AURY TRISTAN, It has been my pleasure to treat MATT CALABRESE over the last 20 visits for Knee Pain and Hip Pain. Please see the progress note below for an update on the physical therapy plan of care! Subjective Subjective: She is being having issues with blood clot issues- has been cleared to do PT. She feels that PT sessions for an hour are too long- 30 min are better. core is helping but back injections did not help. She goes to [place] this next month. Objective Objective/Function: Posture: forward head, rounded shoulders- can correct with verbal cues Gait: no deviation noted ROM: Lumbar: flexion: hands to mid curtis, Extn: WNL without pain, SB/Rot: WNL with mild discomfort Strength: Core: fair, Hip: 4/5 throughout, Knee: 4+/5, Ankle: 5/5 Flex: HS: mild, Gastroc: mild Plan Plan Plan: 12/27/23: Continue 2x a week for 4 weeks. Discharge all current exercises to HEP and progress to new more challenging exercises- if pt can't tolerate new exercises then d/c to current program. 11/26/23: Continue with 2x/week for 6 weeks- core s/s with ext-bias as joshua - increase to 60 min session to add in LE strength exercises. Focus on LE and core strength/stabilization. Balance/Gait/Functional tests Balance/Special Test Scores Oswestry Low Back Score: 19 Lower Extremity Functional Score: 23 Goals Goals Goal 1:: Patient will be I with HEP and progression Goal Time Frame: 4-6 Weeks Goal Progress: Progressing Goal 2:: Patient will SLS for 15 seconds bilateral without LOB Goal Time Frame: 4-6 Weeks Goal Progress: Progressing Goal 3:: Patient will maintain proper posture t/o tx session to demo increased core s/s Goal Time Frame: 4-6 Weeks Goal Progress: Progressing Goal 4:: Patient will report 80% improvement Goal Time Frame: 4-6 Weeks Goal Progress: Progressing Anticipated Interventions Anticipated Interventions Patient/Client Instruction: Educate patient on: Benefits of Fitness Program Therapeutic Exercise to Include: Strength training, Endurance training, Balance training, Agility training, Body mechanics, Postural training, Flexibilty training, Gait and locomotor training, Neuromotor development, Dynamic Lumbar Stabilization and Scapular Strength/Stabilization TENS: Yes Cryotherapy (ice pack, ice massage): Yes Thermo therapy (hot pack): Yes Re-Evaluation Ending Re-evaluation ending: Please do not hesitate to contact me at [phone] by phone or if you have questions or concerns regarding this new plan of care! Sincerely, Sandi Barnard, DPSae 12/27/23 1402 CC: AURY TRISTAN; Nannette Primary Care Physician ELLisa Signed For Medicare only, by signing this I certify the plan of care. ___ Physicians Signature Date Normal [facility] .Auto Diffon 12-26-2023 Basophil, Absolute 0.1 10 3/mcL Normal 0.0-0.2 [facility] ([place]) Comment on above: Performed By: #### A DIFF, FES, ANEU, FERR, CBC, PRO #### [address] [address] Basophils/100 WBC (Bld) 0.6 % Normal 0.0-2.5 [facility] ([place]) Comment on above: Performed By: #### A DIFF, FES, ANEU, FERR, CBC, PRO #### [address] [address] Eosinophil, Absolute 0.1 10 3/mcL Normal 0.0-0.4 [facility] ([place]) Comment on above: Performed By: #### A DIFF, FES, ANEU, FERR, CBC, PRO #### [address] [address] Eosinophils/100 WBC (Bld) 0.7 % Normal 0.0-7.0 [facility] ([place]) Comment on above: Performed By: #### A DIFF, FES, ANEU, FERR, CBC, PRO #### [address] [address] Lymphocyte, Absolute 2.3 10 3/mcL Normal 0.8-3.9 [facility] ([place]) Comment on above: Performed By: #### A DIFF, FES, ANEU, FERR, CBC, PRO #### [address] [address] Lymphocytes/100 WBC (Bld) 25.3 % Normal 10.0-50.0 [facility] ([place]) Comment on above: Performed By: #### A DIFF, FES, ANEU, FERR, CBC, PRO #### [address] [address] Monocyte, Absolute 0.6 10 3/mcL Normal 0.2-1.0 [facility] ([place]) Comment on above: Performed By: #### A DIFF, FES, ANEU, FERR, CBC, PRO #### [address] [address] Monocytes/100 WBC (Bld) 6.6 % Normal 1.7-13.0 [facility] ([place]) Comment on above: Performed By: #### A DIFF, FES, ANEU, FERR, CBC, PRO #### [address] [address] Neutrophils/100 WBC (Bld) 66.8 % Normal 37.0-80.0 [facility] ([place]) Comment on above: Performed By: #### A DIFF, FES, ANEU, FERR, CBC, PRO #### [address] [address] .NEUABSon 12-26-2023 Neutrophil, Absolute 6.1 10 3/mcL Normal 2.9-6.2 [facility] ([place]) Comment on above: Performed By: #### A DIFF, FES, ANEU, FERR, CBC, PRO #### [address] [address] CBCon 12-26-2023 Erythrocyte distribution width (RBC) [Ratio] 13.1 % Normal 11.5-14.5 [facility] ([place]) Comment on above: Performed By: #### A DIFF, FES, ANEU, FERR, CBC, PRO #### [place] [address] Hematocrit (Bld) [Volume fraction] 41.8 % Normal 37.0-47.0 [facility] ([place] Comment on above: Performed By: #### A DIFF, FES, ANEU, FERR, CBC, PRO #### [place] [address] Hgb 13.8 G/dL Normal 12.0-16.0 [facility] ([place] Comment on above: Performed By: #### A DIFF, FES, ANEU, FERR, CBC, PRO #### [place] [address] MCH (RBC) [Entitic mass] 29.7 pg Normal 27.0-31.2 [facility] ([place] Comment on above: Performed By: #### A DIFF, FES, ANEU, FERR, CBC, PRO #### [place] [address] MCHC 33.1 G/dL Normal 33.0-37.0 [facility] ([place] Comment on above: Performed By: #### A DIFF, FES, ANEU, FERR, CBC, PRO #### [place] [address] MCV (RBC) [Entitic vol] 89.8 fL Normal 80.0-94.0 [facility] ([place] Comment on above: Performed By: #### A DIFF, FES, ANEU, FERR, CBC, PRO #### [place] [address] Platelet 300 10 3/mcL Normal 130-400 [facility] ([place]) Comment on above: Performed By: #### A DIFF, FES, ANEU, FERR, CBC, PRO #### [place] [address] Platelet mean volume (Bld) [Entitic vol] 8.1 fL Normal 7.4-10.4 [facility] ([place]) Comment on above: Performed By: #### A DIFF, FES, ANEU, FERR, CBC, PRO #### [address] [address] RBC 4.65 10 6/mcL Normal 4.20-5.40 [facility] ([place]) Comment on above: Performed By: #### A DIFF, FES, ANEU, FERR, CBC, PRO #### [address] [address] WBC 9.1 10 3/mcL Normal 4.6-10.8 [facility] ([place]) Comment on above: Performed By: #### A DIFF, FES, ANEU, FERR, CBC, PRO #### [address] [address] CNPNon 12-26-2023 CNPN Normal [facility] Dion 12-26-2023 Ferritin [Mass/Vol] 49.0 ng/mL Normal 8.0-252.0 [facility] ([place]) Comment on above: Performed By: #### A DIFF, FES, ANEU, FERR, CBC, PRO #### [place] [address] FESon 12-26-2023 Iron [Mass/Vol] 63 ug/dL Normal 50-170 [facility] ([place]) Comment on above: Performed By: #### A DIFF, FES, ANEU, FERR, CBC, PRO ####[address] [address] Iron Sat 16 % Normal [facility] ([place]) Comment on above: Performed By: #### A DIFF, FES, ANEU, FERR, CBC, PRO ####[place] [address] TIBC 403 mcg/dL Normal 250-450 [facility] ([place]) Comment on above: Performed By: #### A DIFF, FES, ANEU, FERR, CBC, PRO ####[place] [address] No Panel Informationon 12-25 Culture Urine >100,000 cfu/ml Mixe d growth consistent with normal urogenital sandra. [facility] Work Phone: PROon 12-26-2023 PT Coag (PPP) [Time] 10.1 s Normal 9.0-14.4 [facility] ([place]) Comment on above: Performed By: #### A DIFF, FES, ANEU, FERR, CBC, PRO ####[address] [place], [place] [address] PT International Ratio 0.9 Normal [facility] ([place]) Comment on above: Result Comment: The [place] [employer] (CHEST, 1992, 102:312S-25S) recommended therapeutic range for oral anticoagulant therapy is: LOW RISK: Prophylaxis of venous thrombosis INR: 2.0-3.0 Treatment of pulmonary embolism 2.0-3.0 Prevention of systemic embolism 2.0-3.0 HIGH RISK: Mechanical prosthetic valves 2.5-3.5 Performed By: #### A DIFF, FES, ANEU, FERR, CBC, PRO ####[address] [place], [place] [address] US ARM VEIN DVT UNL VAS LABo n 12-25-2023 ARM VEIN DVT UNL VAS LAB Non-Invasive Vascular Laboratory [facility] Upper Extremity Venous Duplex Unilateral - Right Date of service/time: 12/25/2023 8:42:52 AM Name: MISS MATT CALABRESE Date: 2000 Age: 23 years Gender: F Medical History Tobacco: No Prior superficial thrombophlebitis: Yes Clinical Indication Rule out deep vein thrombosis and i74.2. TECHNIQUE -------- A venous duplex ultrasound examination was performed, including grayscale imaging with compression maneuvers and color Doppler and spectral Doppler examination with augmentation maneuvers and response to respiration of the below mentioned veins. FINDINGS -------- RIGHT SIDE Internal jugular vein Doppler: normal flow. Compression: normal. Subclavian vein Doppler: normal flow. Compression: normal. Axillary vein Doppler: normal flow. Compression: normal. Brachial vein Doppler: normal flow. Compression: normal. Basilic vein Compression: abnormal. Cephalic vein Compression: abnormal. Innominate vein Doppler: normal flow. Radial vein Compression: normal. Ulnar vein Compression: normal. LEFT SIDE Subclavian vein Doppler: normal flow. Compression: normal. IMPRESSION Faxed the findings to the ordering physician RIGHT SIDE - DEEP VEINS Negative for acute deep vein thrombosis. RIGHT SIDE - SUPERFICIAL VEINS Acute superficial thrombophlebitis in the basilic vein and cephalic vein. 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 Todays study confirms postive for SVT in basilic and cephalic veins in the right forearm. Negative for Deep vein thrombosis. LEFT SIDE - DEEP VEINS Negative for acute deep vein thrombosis in the subclavian vein. Technologist: Korin Cardenas Ordering physician: MARILYN PIÑA Interpreting physician: Julian Guzman MD Final CC [facility] [facility] Image : [id number] See Link below for Image Normal [facility] US Upper extremity veinson 0 12-25-2023 Non-Invasive Vascular Laboratory [facility] Upper Extremity Venous Duplex Unilateral - Right Date of service/time: 12/25/2023 8:42:52 AM Name: MISS MATT CALABRESE Date: 2000 Age: 23 years Gender: F Medical History Tobacco: No Prior superficial thrombophlebitis: Yes Clinical Indication Rule out deep vein thrombosis and i74.2. TECHNIQUE -------- A venous duplex ultrasound examination was performed, including grayscale imaging with compression maneuvers and color Doppler and spectral Doppler examination with augmentation maneuvers and response to respiration of the below mentioned veins. FINDINGS -------- RIGHT SIDE Internal jugular vein Doppler: normal flow. Compression: normal. Subclavian vein Doppler: normal flow. Compression: normal. Axillary vein Doppler: normal flow. Compression: normal. Brachial vein Doppler: normal flow. Compression: normal. Basilic vein Compression: abnormal. Cephalic vein Compression: abnormal. Innominate vein Doppler: normal flow. Radial vein Compression: normal. Ulnar vein Compression: normal. LEFT SIDE Subclavian vein Doppler: normal flow. Compression: normal. IMPRESSION Faxed the findings to the ordering physician RIGHT SIDE - DEEP VEINS Negative for acute deep vein thrombosis. RIGHT SIDE - SUPERFICIAL VEINS Acute superficial thrombophlebitis in the basilic vein and cephalic vein. 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 Todays study confirms postive for SVT in basilic and cephalic veins in the right forearm. Negative for Deep vein thrombosis. LEFT SIDE - DEEP VEINS Negative for acute deep vein thrombosis in the subclavian vein. Technologist: Korin Cardenas Ordering physician: MARILYN PIÑA Interpreting physician: Julian Guzman MD Final See Link below for Image [facility] CARDIOLOG[facility] CNOVon 12-24-2023 CNOV Normal [facility] US SOFT TISSUE Moe 2023 US SOFT TISSUE MASS ORIGINAL EXAMINATION: Ultrasound of the right volar wrist and medial forearm/wrist 12/21/2023 1:43 PM COMPARISON: None. HISTORY: ORDERING SYSTEM PROVIDED HISTORY: Reason for Exam: right wrist pain, palpable mass under the skin with tenderness for the past 3 days. FINDINGS: The areas that were assessed via ultrasound demonstrate what appear to be superficial veins. There are some internal echoes and minimal to no flow on Doppler. These become elongated and are also noncompressible. According to the tech these vessels were followed and demonstrated flow and compressibility more proximal but were not compressible at the right wrist/arm where the palpable lumps are. This suggest superficial venous thrombosis. IMPRESSION: Superficial venous thrombosis corresponding to palpable lumps. I have personally reviewed the images of this examination and agree with the resident's findings and interpretation. Interpreted by: Edgar Silverman MD Preliminary Report By: Edmond Maldonado Electronically signed By Edgar Silverman MD Dictated Date: 12/21/2023 1:54:40 PM Prelim Date: 12/21/2023 4:09:56 PM Sign Date: 12/21/2023 4:09:56 PM Ordering Provider: JACK Terry [facility] ([place]) Urgent Care Visit Reporton 0 12-19-2023 Urgent Care Visit Report [facility] [address], [address] [place] [address] OFFICE VISIT Date of Service: 12/19/23 MR#: [id number] Acct: [id number] Name: MATT CALABRESE Rep #: [id number] : 2000 Provider: ASIM Barnard Age/Sex: 23/F Location: [facility] Status: Signed Intake Vital Signs 09/21/23 16:34 12/19/23 16:17 Height 5 ft 3 in 5 ft 3 in Weight: 230 lb BMI 40.7 BP 126/86 H Blood Pressure Location Lt brachial Position Sitting Respiration 16 Pulse 98 Pulse Source Monitor Temp 99.1 F Temp Source Temporal Pulse Oximetry (%) 98 Oxygen Delivery Method room air Intake Visit Reasons: R WRIST PAIN/INJURY Chief Complaint: RT WRIST INJURY 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 Accompanied by: Self Is patient in pain?: Yes Allergies amoxicillin Allergy (Verified 12/19/23 16:18) Upset Stomach erythromycin base Allergy (Verified 12/19/23 16:18) Upset Stomach Penicillins (PCN) Allergy (Verified 12/19/23 16:18) Upset Stomach trazodone Adverse Reaction (Unknown, Verified 12/19/23 16:18) suicidal ideation Medications ???Medication ???Instructions ???Recorded ???Confirmed ???Type CBD Oil topical 01/18/23 12/19/23 History ibuprofen 600 mg tablet 600 mg PO Q8H PRN pain 01/18/23 12/19/23 History cholecalciferol (vitamin D3) 1,250 1,250 mcg PO QWEEK 10/05/23 12/19/23 History mcg (50,000 unit) capsule hydroxyzine HCl 25 mg tablet 12.5 mg PO PRN anxiety 10/05/23 12/19/23 History sertraline 100 mg tablet 100 mg PO QDAY 10/05/23 12/19/23 History valacyclovir 500 mg tablet 500 mg PO QDAY 10/05/23 12/19/23 History etonogestrel 68 mg subdermal 1 implant subdermal ONCE 12/11/23 12/19/23 History implant (Nexplanon) prednisone 10 mg tablet 10 mg PO DAILY #30 tabs 12/19/23 12/19/23 Rx PFSH Medical History (Updated 12/19/23 @ 16:59 by Kole DAILEY, PA) Right wrist sprain Left knee pain Strain of Achilles tendon Contact with or exposure to other viral diseases URI (upper respiratory infection) Sprain of left foot Left ankle sprain Contusion of left knee Anxiety Social History Smoking Status: Never smoker substance use type: does not use HPI HPI Chief Complaint: RT WRIST INJURY Details: MATT CALABRESE, is a 23 F who presents to the office today for right wrist pain. Patient has attending physical therapy, stating on 12/17/2023 while performing rehab feeling a popping sensation in right ulnar wrist and right ulnar wrist and distal third ulnar forearm swelling and discomfort appreciated. No loss of sensation or strength or function distal to injury states the gripping does exacerbate pain to the same. No history of traumatic blow to the same. Kbcj-[id number] ibuprofen of minimal to no benefit. Trhnn-znyp-ghinvlgg. No other associated symptoms and no other alleviating/aggravating factors. ROS Const Constitutional: No other (As above) Exam Const General: cooperative, healthy appearing and no acute distress Orientation: alert and awake Resp Effort Inspection: normal respiratory effort and able to speak in complete sentences Cardio Rate: regular rate Pulses: radial pulses present Skin General: no rashes or lesions noted Neuro General: patient alert and patient awake Cognition: normal cognition Speech: speech normal Extrem General: full ROM (Discomfort to all particularly with ulnar deviation), capillary refill normal and normal exam except as noted (R ulnar wrist/distal 1/3 ulnar forearm swelling) Psych Appearance: grossly normal Mental Status: mental status grossly normal Mood: congruent mood Affect: normal affect Speech and Movement: speech and movement normal Attitude: cooperative Coding Level of Care Code Off vis,est,level 4 Diagnoses Right wrist sprain S63.501A Assessment and Plan Assessment and Plan (1) Right wrist sprain: Status: Acute Plan: Right wrist radiographs taken today reveal no acute osseous pathology per my review, pending radiologist interpretation at time patient discharged. Prednisone as prescribed today. Will Rissman as dispensed/applied today. All physical therapy, continuing passive home range of motion exercises as instructed today. Follow-up with PCP or orthopedics in 7 to 10 days should symptoms not improve, sooner should symptoms worsen or any other concerns develop. States acknowledging understanding all the above. This note was generated with [employer] software. It may contain incorrect words, spelling, and punctuation that were not noted in checking the note before signing. Orders: Orders Wrist min 3 Views Today S66.911A - Strain of unspecified muscle, fascia and tendon at wrist and hand level, right hand, initial encounter Medications (more content not included)... Normal [facility] Wrist min 3 Viewson 12-19-19 Wrist min 3 Views [facility] Imaging Services [address] [place] [id number] Wrist min 3 Views MR#: [id number] Acct: [id number] Name: MATT CALABRESE HELIO Rep #: [id number] : 2000 F 23 From: Toby Morales MD PCP: Care Physician,No Primary Status: REG CLI Study: Wrist min 3 Views Date of Exam: 12/19/23 Exam# [id number] Ordering Dr: Kole Mejía [id number] EXAM: XR RIGHT WRIST COMPLETE, 3 OR MORE VIEWS CLINICAL INDICATION: wrist strain TECHNIQUE: Frontal, lateral and oblique views of the right wrist. COMPARISON: No relevant prior studies available. FINDINGS: BONES/JOINTS: No acute abnormality. SOFT TISSUES: Normal. No soft tissue swelling or gas. No radiopaque foreign body. RAD/Wrist min 3 Views IMPRESSION: Intact right wrist. Electronically Signed: Toby Morales MD at 16:25 EDT Reading Location ID and State: [facility] / [place] Tel , Service support , CC: No Primary Care Physician; ASIM Barnard Ingot Header: Signed Normal [facility] US [place] 12-14-2023 [facility] US [place] 12-13-2023 Radiology Study observation (narrative) [facility] Orthopedic Visit Reporton Orthopedic Visit Report [facility] [address] [place] [address] [address] [place] [address] OFFICE VISIT Date of Service: 12/11/23 MR#: [id number] Acct: [id number] Name: MATT CALABRESE Rep #: [id number] : 2000 Provider: Dr. Dario huffman MD Age/Sex: 23/F Location: [facility] Status: Signed Intake Vital Signs 09/21/23 16:34 Height 5 ft 3 in Intake Visit Reasons: LEFT KNEE Chief Complaint: MRI Review Accompanied by: Self Is patient in pain?: No Allergies amoxicillin Allergy (Verified 12/11/23 10:41) Upset Stomach erythromycin base Allergy (Verified 12/11/23 10:41) Upset Stomach Penicillins (PCN) Allergy (Verified 12/11/23 10:41) Upset Stomach trazodone Adverse Reaction (Unknown, Verified 12/11/23 10:41) suicidal ideation Medications ???Medication ???Instructions ???Recorded ???Confirmed ???Type CBD Oil topical 01/18/23 12/11/23 History ibuprofen 600 mg tablet 600 mg PO Q8H PRN pain 01/18/23 12/11/23 History cholecalciferol (vitamin D3) 1,250 1,250 mcg PO QWEEK 10/05/23 12/11/23 History mcg (50,000 unit) capsule hydroxyzine HCl 25 mg tablet 12.5 mg PO PRN anxiety 10/05/23 12/11/23 History sertraline 100 mg tablet 100 mg PO QDAY 10/05/23 12/11/23 History valacyclovir 500 mg tablet 500 mg PO QDAY 10/05/23 12/11/23 History etonogestrel 68 mg subdermal 1 implant subdermal ONCE 12/11/23 12/11/23 History implant (Nexplanon) PFSH Medical History Left knee pain Strain of Achilles tendon Contact with or exposure to other viral diseases URI (upper respiratory infection) Sprain of left foot Left ankle sprain Contusion of left knee Anxiety Social History Smoking Status: Never smoker substance use type: does not use HPI LEFT KNEE Details: This documentation accurately reflects the service provided and the decisions made by me, Dr. Dario Alejandre MD 12/11/23 1007. Part of today???s visit was documented by [ ], acting as scribe. MATT CALABRESE is a 23 year old F here today for follow-up left knee MRI. Patient is doing well still has some mild knee pain but seems like that could be coming from the back as well the patient plans to be getting some injections in the lumbar spine as well coming up as well as had a prior history of a left ankle problem that could potentially account for the feelings of instability when the patient stands on the left lower extremity on 1 leg. Ortho Exam General General: Yes no acute distress Neurologic: Yes alert and Yes oriented x3 Psychologic: Yes reasonable and appropriate Left Knee Skin/Wound: Yes CDI, No ecchymosis, No erythema and No swelling KNEE: normal gait, no thrust Supplemental Info [facility] Imaging Services [address] [place] [id number] Lower Ext Joint Only (Routine) MR#: [id number] Acct: [id number] Name: MATT CALABRESE LINCOLN Rep #: [id number] : 2000 F 23 From: Haim Dey MD PCP: Care Physician,No Primary Status: REG CLI Study: Lower Ext Joint Only (Routine) Date of Exam: 11/26/23 Exam# [id number] Ordering Dr: Dario Alejandre MD [id number] EXAM: MR LEFT LOWER EXTREMITY WITHOUT INTRAVENOUS CONTRAST, KNEE CLINICAL INDICATION: pain, rule out meniscus or other problems TECHNIQUE: Multiplanar and multisequence MR images of the left knee without intravenous contrast. COMPARISON: December 09, 2023 exam FINDINGS: BONES/JOINTS: Unremarkable. No fracture. No abnormal bone marrow signal. No synovial hypertrophy. No intra-articular body. EXTENSOR MECHANISM: Unremarkable. MEDIAL MENISCUS: Unremarkable. LATERAL MENISCUS: Unremarkable. MEDIAL CAPSULE/SUPPORTING STRUCTURES: Unremarkable. Intact. LATERAL CAPSULE/SUPPORTING STRUCTURES: Unremarkable. Lateral collateral ligamentous complex, inclusive of the popliteal tendon, are intact. ANTERIOR CRUCIATE LIGAMENT: Unremarkable. Intact. POSTERIOR CRUCIATE LIGAMENT: Unremarkable. Intact. MUSCLES: Unremarkable. CARTILAGE: Unremarkable. Intact. FLUID: Unremarkable. No joint effusion. OTHER SOFT TISSUES: Unremarkable. No popliteal cyst. MRI/Lower Ext Joint Only (Routine) IMPRESSION: Normal left knee MRI. Electronically Signed: Haim Dey MD at 22:28 EDT , I independently reviewed the imaging. Concur with radiologist report. Coding Level of Care Code Off vis,est,level 3 Diagnoses Left knee pain M25 (more content not included)... Normal [facility] CNOVon 12-07-2023 CNOV Normal [facility] NM GASTRIC EMPTYING SOLIDon 12-07-2023 NM GASTRIC EMPTYING SOLID Normal [facility] Stomach Views for gastric emptying solid phase W radionuclide Brittney 12-07-2023 IMPRESSION: NORMAL RATE OF GASTRIC EMPTYING OF A SOLID MEAL. Ingot Header: WILL Transcribe Date/Time: Dec 07 2023 12:50P Dictated by : KYLE WEBER MD This examination was interpreted and the report reviewed and electronically signed by: KYLE WEBER MD on Dec 07 2023 12:51PM [facility] DIVISION OF RADIOLOGY * * *Final Report* * * DATE OF EXAM: Dec 07 2023 11:56AM [facility] GASTRIC EMPTYING SOLID / PROCEDURE REASON: Nausea * * * * Physician Interpretation * * * * SOLID MEAL GASTRIC EMPTYING STUDY 12/07/2023 12:50 PM: CLINICAL HISTORY: 23 years old Female patient with history of nausea. TECHNIQUE: 1.2 mCi Tc-99m Sulfur Colloid was given orally in a meal consisting of 4 ounces of Egg Beaters,1 1/2 pieces of toast, 3/4 ounce of jelly with 8 ounces of water, consumed over 5 to 10 minutes. 1-minute posterior and anterior spot images of the stomach region at times 0, 1, 2, and 4 hours were obtained. Geometric mean was used to plot a time-activity curve. RESULT: Solid study demonstrates: - 57% gastric retention at 1 hour (normal range, 37-90%), - 12% retention at 2 hours (normal range, 30-60%), and - 0% retention at 4 hours (normal range, 0-10%). DIVISION OF RADIOLOGY Provider, [facility] - 12/07/2023 * * *Final Report* * * DATE OF EXAM: Dec 07 2023 11:56AM S[facility] [address] [place] [address] GASTRIC EMPTYING SOLID / PROCEDURE REASON: Nausea * * * * Physician Interpretation * * * * SOLID MEAL GASTRIC EMPTYING STUDY 12/07/2023 12:50 PM: CLINICAL HISTORY: 23 years old Female patient with history of nausea. TECHNIQUE: 1.2 mCi Tc-99m Sulfur Colloid was given orally in a meal consisting of 4 ounces of Egg Beaters,1 1/2 pieces of toast, 3/4 ounce of jelly with 8 ounces of water, consumed over 5 to 10 minutes. 1-minute posterior and anterior spot images of the stomach region at times 0, 1, 2, and 4 hours were obtained. Geometric mean was used to plot a time-activity curve. RESULT: Solid study demonstrates: - 57% gastric retention at 1 hour (normal range, 37-90%), - 12% retention at 2 hours (normal range, 30-60%), and - 0% retention at 4 hours (normal range, 0-10%). IMPRESSION IMPRESSION: NORMAL RATE OF GASTRIC EMPTYING OF A SOLID MEAL. Ingot Header: PSCB Transcribe Date/Time: Dec 07 2023 12:50P Dictated by : KYLE WEBER MD This examination was interpreted and the report reviewed and electronically signed by: KYLE WEBER MD on Dec 07 2023 12:51PM EST [facility] Radiology Study observation (narrative) [facility] Stomach Views for gastric emptying solid phase W radionuclide POOrdered By: [facility] Provider on 12-07-2023 [facility] UA DIP,URINE HCG (POC)on Beta HCG ( test) Ql (U) Negative Negative [facility] Comment on above: Location:[facility], [address], [place], [address] [employer] (POCT) Internal QC OK [facility] Location:[facility], [address], [place], [address] [facility] POINT OF CARE [facility] CNOVon 12-03-2023 CNOV Normal [facility] US ABDOMEN COMPLETEon 2023 US ABDOMEN COMPLETE ORIGINAL EXAMINATION: COMPLETE ABDOMINAL ULTRASOUND 12/03/2023 7:48 am COMPARISON: None. HISTORY: ORDERING SYSTEM PROVIDED HISTORY: Reason for Exam: chronic abdominal pain and bloating. Images are recorded and archived. FINDINGS: LIVER: The liver demonstrates normal echogenicity without evidence of intrahepatic biliary ductal dilatation. BILIARY SYSTEM: Gallbladder is unremarkable without evidence of pericholecystic fluid, wall thickening or stones. Negative sonographic Ballard's sign. Common bile duct is within normal limits measuring 4.5 mm. KIDNEYS: The kidneys are unremarkable in appearance without evidence of hydronephrosis. Kidneys measure 10.0 x 5.6 x 5.0 cm, and 10.9 x 4.7 x 4.1 cm respectively. There is appropriate renal cortical thickness and echotexture. PANCREAS: Visualized portions of the pancreas are unremarkable. SPLEEN: The spleen is unremarkable in appearance. Spleen is within normal limits in size. IVC: The IVC is patent. AORTA: Aorta is patent without aneurysm. OTHER: No evidence of ascites. IMPRESSION: Unremarkable abdominal ultrasound. Interpreted by: Eliceo Albert DO Preliminary Report By: Eliceo Albert DO Electronically signed By Eliceo Albert DO Dictated Date: 12/03/2023 3:51:57 PM Prelim Date: 12/03/2023 3:53:26 PM Sign Date: 12/03/2023 3:53:26 PM Ordering Provider: JACK PRIEST [facility] ([place]) Karissa 11-26-2023 CNPN Normal [facility] Lower Ext Joint Only (Routin e)on 11-26-2023 Lower Ext Joint Only (Routine) [facility] Imaging Services [address] [place], [place] [address] Lower Ext Joint Only (Routine) MR#: [id number] Acct: [id number] Name: MATT CALABRESE Rep #: [id number] : 2000 23 From: Haim Dey MD PCP: Care Physician,No Primary Status: REG CLI Study: Lower Ext Joint Only (Routine) Date of Exam: 0 11/26/23 Exam# [id number] Ordering Dr: Dario Alejandre MD [id number] EXAM: MR LEFT LOWER EXTREMITY WITHOUT INTRAVENOUS CONTRAST, KNEE CLINICAL INDICATION: pain, rule out meniscus or other problems TECHNIQUE: Multiplanar and multisequence MR images of the left knee without intravenous contrast. COMPARISON: December 09, 2023 exam FINDINGS: BONES/JOINTS: Unremarkable. No fracture. No abnormal bone marrow signal. No synovial hypertrophy. No intra-articular body. EXTENSOR MECHANISM: Unremarkable. MEDIAL MENISCUS: Unremarkable. LATERAL MENISCUS: Unremarkable. MEDIAL CAPSULE/SUPPORTING STRUCTURES: Unremarkable. Intact. LATERAL CAPSULE/SUPPORTING STRUCTURES: Unremarkable. Lateral collateral ligamentous complex, inclusive of the popliteal tendon, are intact. ANTERIOR CRUCIATE LIGAMENT: Unremarkable. Intact. POSTERIOR CRUCIATE LIGAMENT: Unremarkable. Intact. MUSCLES: Unremarkable. CARTILAGE: Unremarkable. Intact. FLUID: Unremarkable. No joint effusion. OTHER SOFT TISSUES: Unremarkable. No popliteal cyst. MRI/Lower Ext Joint Only (Routine) IMPRESSION: Normal left knee MRI. Electronically Signed: Haim Dey MD at 22:28 EDT , CC: Dr. Dario Alejandre MD; No Primary Care Physician Ingot Header: Signed Normal [facility] Re-Evaluation - PT (1)on Re-Evaluation - PT (1) [facility] Physical Therapy [facility] [address] [place] [address] [address] [place] [address] / REEVALUATION / MEDICARE RECERTIFICATION PHYSICAL THERAPY MR#: [id number] Acct: [id number] Name: MATT CALABRESE Rep #: [id number] : 2000 23 From: Sandi SIBLEYT Referring DrSarah: OUT OF TOWN DOCTOR Status:REG RCR Insurance: [facility] [employer] PLAN SELF PAY INSURANCE Re-Evaluation Intro: AURY TRISTAN, It has been my pleasure to treat MATT CALABRESE over the last 10 visits for Knee Pain and Hip Pain. Please see the progress note below for an update on the physical therapy plan of care! Subjective Subjective: Patient reports that since switching to focus on extension back exercises its been going better. She is not painfree and it does flare up at time but does feel that we are headed in the right direction. She feels that she is coming in with less pain and on the daily is less and she feels that she is able to a little more functional and mobile. She does not feel that her knee has really changed at all- its still doing its all of same things as we have been more focus on her back as that has more life changes like sleeping. Objective Objective/Function: Posture: forward head, rounded shoulders- can correct but does not maintain Gait: no deviation noted HR/TR: able with UE A SLS: 10 seconds then requires UE A and reports discomfort and instability on the left. Right: 15 seconds no LOB ROM: Lumbar: flexion: hands to knees with pain, extn: WNL reports feels good, SB and rotation: WFL with discomfort with SB to the left. Hip: WFL with pain IR/ER. Knee: WFL Strength: core: fair minus, Hip: 4/5 throughout, Knee: Left: 4/5 throughout Right: 4+/5 Ankle: 5/5 Flex: HS: moderate, Gastroc: moderate Special Tests R Hip ILIA - Intraarticular Pathology: Positive R Hip FADDIR - Labrum: Positive L Hip ILIA - Intraarticular Pathology: Negative L Hip FADDIR - Labrum: Negative Extn: decreases s/s Plan Plan Plan: 11/26/23: Continue with 2x a week for 6 weeks- core s/s with extn base as tolerated- increase to 60 min session to add in LE strength exercises Focus on LE and core strength/stabilization Balance/Gait/Functional tests Balance/Special Test Scores Lower Extremity Functional Score: 23 Goals Goals Goal 1:: Patient will be I with HEP and progression Goal Time Frame: 4-6 Weeks Goal Progress: Progressing Goal 2:: Patient will SLS for 15 seconds bilateral without LOB Goal Time Frame: 4-6 Weeks Goal Progress: Progressing Goal 3:: Patient will maintain proper posture t/o tx session to demo increased core s/s Goal Time Frame: 4-6 Weeks Goal Progress: Progressing Goal 4:: Patient will report 80% improvement Goal Time Frame: 4-6 Weeks Goal Progress: Progressing Anticipated Interventions Anticipated Interventions Patient/Client Instruction: Educate patient on: Benefits of Fitness Program Therapeutic Exercise to Include: Strength training, Endurance training, Balance training, Agility training, Body mechanics, Postural training, Flexibilty training, Gait and locomotor training, Neuromotor development, Dynamic Lumbar Stabilization and Scapular Strength/Stabilization TENS: Yes Cryotherapy (ice pack, ice massage): Yes Thermo therapy (hot pack): Yes Re-Evaluation Ending Re-evaluation ending: Please do not hesitate to contact me at [phone] by phone or if you have questions or concerns regarding this new plan of care! Sincerely, Sandi Barnard, MARYJOT 11/26/23 1124 CC: AURY TRISTAN; Nannette Primary Care Physician ALF Signed For Medicare only, by signing this I certify the plan of care. ___ Physicians Signature Date Normal [facility] C diff Tox gens Stl Ql SHO+p robeon 11-20-2023 C. difficile toxin genes SHO+probe Ql (Stl) Negative Normal Negative for C. difficile toxin by PCR [facility] Comment on above: Order Comment: Speci men Type: STOOL SPECIMENOrdering Facility: [facility] Address: [address] [place] [address] Performed By: #### 5 4067-4, 83335-6 ####[facility] LABCLIA [id number] [facility]ITAL[facility] [place] [address] [address] [place] Calprotectin (Stl) [Mass/Mas s]on 11-20-2023 CALPROTECTIN, FECAL INTERP Normal Normal Normal [facility] Comment on above: Order Comment: Speci men Type: STOOL SPECIMENOrdering Facility: [facility] Address: [address] [place] [address] [place] [address] Result Comment: On 2022, [facility] EyeJot implemented a new fecal calprotectin method, the [employer] Liaison Calprotectin assay. For assistance with interpretation of results in patients undergoing serial monitoring, contact Client Services at [phone] or [phone] to discuss options, preferably within 7 days of issuing this report.Interpretation:<50.0 ug/g: Uyuxlg14.0 ug/g - 120.0 ug/g: Borderline elevated. Re-evaluation in 4-6 weeks is recommended if clinically indicated.>120.0 ug/g: Elevated Performed By: #### 5 4067-4, 22142-5 ####[facility] LABIA [id number] [place] [address] [place] CALPROTECTIN, FECAL QUANTITATIVE 39.7 ug/g Normal <50 [facility] Comment on above: Order Comment: Speci men Type: STOOL SPECIMENOrdering Facility: [facility] Address: [facility] [place] [address] Performed By: #### 5 4067-4, 17252-3 ####[facility] LABIA [id number] [place] [address] [place] G lamblia+Cryptosp Ag Stl Ql IAon 11-20-2023 G. lamblia+Cryptosporidi um sp Ag IA Ql (Stl) CRYPTOSPORIDIUM ANTIGEN BY EIA: Negative for Cryptosporidium by EIA. GIARDIA ANTIGEN BY EIA: Negative for Giardia lamblia by EIA. Normal [facility] Comment on above: Performed By: #### 7 9390-1, 93492-4 ####[facility] LABIA [id number] [place] [address] [place] Gastrointestinal pathogens i dentified SHO+probe Nom (Stl)on 11-20-2023 Campylobacter sp DNA SHO+probe Nom (Unsp spec) Not detected Normal Not Detected [facility] Comment on above: Order Comment: Speci men Type: STOOL SPECIMENOrdering Facility: [facility] Address: [address] [place] [address] Performed By: #### 7 9390-1, 98629-1 ####[facility] LABCLIA [id number] [place] [address] [place] Salmonella sp DNA SHO+probe Ql (Unsp spec) Not detected Normal Not Detected [facility] Comment on above: Order Comment: Speci men Type: STOOL SPECIMENOrdering Facility: [facility] Address: [address] [place] [address] Performed By: #### 7 9390-1, 77614-2 ####[facility] LABIA [id number] [place] [address] [place] Shiga toxin stx gene SHO+probe Nom (Unsp spec) Not detected Normal Not Detected [facility] Comment on above: Order Comment: Speci men Type: STOOL SPECIMENOrdering Facility: [facility] Address: [address] [place] [address] Performed By: #### 7 9390-1, 63078-0 ####[facility] LABIA [id number] [place] [address] [place] Shigella sp DNA SHO+probe Ql (Unsp spec) Not detected Normal Not Detected [facility] Comment on above: Order Comment: Speci men Type: STOOL SPECIMENOrdering Facility: [facility] Address: [address] [place] [address] Performed By: #### 7 9390-1, 31323-1 ####[facility] LABIA [id number] [place] [address] [place] ANAon 11-16-2023 Nuclear Ab IF (S) [Titer] 40 {titer} Normal Neg 40 [facility] ([place]) Comment on above: Result Comment: JESSIE Screen and Titer methodology is an immunofluorescent technique utilizing Hep2 Substrate. Performed By: #### L IPID, VIDH, FES, A1C, CMP, ANEU, FERR, CBC, ESR, FT4, GFR, ADIFF, JULIA, TSH, LIP, CRP ####[place] [id number] [place] [id number]#### FOL, B12, JESSIE ####[address] [address] .Auto Diffon 11-15-2023 Basophil, Absolute 0.0 10 3/mcL Normal 0.0-0.2 [facility] ([place]) Comment on above: Performed By: #### L IPID, VIDH, FES, A1C, CMP, ANEU, FERR, CBC, ESR, FT4, GFR, ADIFF, JULIA, TSH, LIP, CRP ####[place] [address]#### STEFANO B12, JESSIE ####[address] [address] Basophils/100 WBC (Bld) 0.4 % Normal 0.0-2.5 [facility] ([place]) Comment on above: Performed By: #### L IPID, VIDH, FES, A1C, CMP, ANEU, FERR, CBC, ESR, FT4, GFR, ADIFF, JULIA, TSH, LIP, CRP ####[place] [id number]#### FOL, B12, JESSIE ####[address] [address] Eosinophil, Absolute 0.1 10 3/mcL Normal 0.0-0.4 [facility] ([place]) Comment on above: Performed By: #### L IPID, VIDH, FES, A1C, CMP, ANEU, FERR, CBC, ESR, FT4, GFR, ADIFF, JULIA, TSH, LIP, CRP ####[place] [address] [place], [place] [address]#### FOL, B12, JESSIE ####[address] [address] Eosinophils/100 WBC (Bld) 1.6 % Normal 0.0-7.0 [facility] ([place]) Comment on above: Performed By: #### L IPID, VIDH, FES, A1C, CMP, ANEU, FERR, CBC, ESR, FT4, GFR, ADIFF, JULIA, TSH, LIP, CRP ####[place] [address]#### FOL, B12, JESSIE ####[address] [address] Lymphocyte, Absolute 2.1 10 3/mcL Normal 0.8-3.9 [facility] ([place]) Comment on above: Performed By: #### L IPID, VIDH, FES, A1C, CMP, ANEU, FERR, CBC, ESR, FT4, GFR, ADIFF, JULIA, TSH, LIP, CRP ####[place] [address]#### FOL, B12, JESSIE ####[address] [address] Lymphocytes/100 WBC (Bld) 29.5 % Normal 10.0-50.0 [facility] ([place]) Comment on above: Performed By: #### L IPID, VIDH, FES, A1C, CMP, ANEU, FERR, CBC, ESR, FT4, GFR, ADIFF, JULIA, TSH, LIP, CRP ####[place] [address]#### FOL, B12, JESSIE ####[address] [address] Monocyte, Absolute 0.5 10 3/mcL Normal 0.2-1.0 [facility] ([place]) Comment on above: Performed By: #### L IPID, VIDH, FES, A1C, CMP, ANEU, FERR, CBC, ESR, FT4, GFR, ADIFF, JULIA, TSH, LIP, CRP ####[place] [address]#### FOL, B12, JESSIE ####[address] [address] Monocytes/100 WBC (Bld) 6.8 % Normal 1.7-13.0 [facility] ([place]) Comment on above: Performed By: #### L IPID, VIDH, FES, A1C, CMP, ANEU, FERR, CBC, ESR, FT4, GFR, ADIFF, JULIA, TSH, LIP, CRP ####[facility] [place], [place] [address]#### FOL, B12, JESSIE ####[place] [address] [place] [address] Neutrophils/100 WBC (Bld) 61.7 % Normal 37.0-80.0 [facility] ([place]) Comment on above: Performed By: #### L IPID, VIDH, FES, A1C, CMP, ANEU, FERR, CBC, ESR, FT4, GFR, ADIFF, JULIA, TSH, LIP, CRP ####[place] [address] [place], [place] [address]#### FOL, B12, JESSIE ####[address] [address] .GFRon 11-15-2023 GFR 123 ml/min/1.73sqm Normal [facility] ([place]) Comment on above: Result Comment: GFR Population mean for , Non- Americans Ages 20-29 = 116 mL/min/1.73 sq.m. Ages 30-39 = 107 mL/min/1.73 sq.m. Ages 40-49 = 99 mL/min/1.73 sq.m. Ages 50-59 = 93 mL/min/1.73 sq.m. Ages 60-69 = 85 mL/min/1.73 sq.m. Ages 70+ = 75 mL/min/1.73 sq.m. Chronic Kidney Disease: Less than 60 mL/min/1.73 square meters End Stage Renal Disease: Less than 15 mL/min/1.73 square meters Performed By: #### L IPID, VIDH, FES, A1C, CMP, ANEU, FERR, CBC, ESR, FT4, GFR, ADIFF, JULIA, TSH, LIP, CRP ####[facility] [place], [place] [address]#### FOL, B12, JESSIE ####[address] [place], [place] [address] GFR Non- 101 ml/min/1.73sqm Normal [facility] ([place]) Comment on above: Result Comment: GFR Population mean for , Non- Americans Ages 20-29 = 116 mL/min/1.73 sq.m. Ages 30-39 = 107 mL/min/1.73 sq.m. Ages 40-49 = 99 mL/min/1.73 sq.m. Ages 50-59 = 93 mL/min/1.73 sq.m. Ages 60-69 = 85 mL/min/1.73 sq.m. Ages 70+ = 75 mL/min/1.73 sq.m. Chronic Kidney Disease: Less than 60 mL/min/1.73 square meters End Stage Renal Disease: Less than 15 mL/min/1.73 square meters Performed By: #### L IPID, VIDH, FES, A1C, CMP, ANEU, FERR, CBC, ESR, FT4, GFR, ADIFF, JULIA, TSH, LIP, CRP ####[facility] [place] [id number]#### FOL, B12, JESSIE ####[place] [address] .NEUABSon 11-15-2023 Neutrophil, Absolute 4.4 10 3/mcL Normal 2.9-6.2 [facility] ([place]) Comment on above: Performed By: #### L IPID, VIDH, FES, A1C, CMP, ANEU, FERR, CBC, ESR, FT4, GFR, ADIFF, JULIA, TSH, LIP, CRP ####[facility] [place] [id number]#### FOL, B12, JESSIE ####[place] [address] A1Con 11-15-2023 HbA1c (Bld) [Mass fraction] 5.8 % Normal 4.3-6.4 [facility] ([place]) Comment on above: Performed By: #### L IPID, VIDH, FES, A1C, CMP, ANEU, FERR, CBC, ESR, FT4, GFR, ADIFF, JULIA, TSH, LIP, CRP ####[place] [id number]#### FOL, B12, JESSIE ####[place] [address] AMYon 11-15-2023 Amylase [Catalytic activity/Vol] 29 U/L Normal 25-115 [facility] ([place]) Comment on above: Performed By: #### L IPID, VIDH, FES, A1C, CMP, ANEU, FERR, CBC, ESR, FT4, GFR, ADIFF, JULIA, TSH, LIP, CRP ####[place] [address]#### FOL, B12, JESSIE ####[place] [address] B12on 11-15-2023 Cobalamin (Vitamin B12) [Mass/Vol] 362 pg/mL Normal 211-911 [facility] ([place]) Comment on above: Performed By: #### L IPID, VIDH, FES, A1C, CMP, ANEU, FERR, CBC, ESR, FT4, GFR, ADIFF, JULIA, TSH, LIP, CRP ####[place] [address]#### FOL, B12, JESSIE ####[place] [address] CBCon 11-15-2023 Erythrocyte distribution width (RBC) [Ratio] 12.8 % Normal 11.5-14.5 [facility] ([place]) Comment on above: Performed By: #### L IPID, VIDH, FES, A1C, CMP, ANEU, FERR, CBC, ESR, FT4, GFR, ADIFF, JULIA, TSH, LIP, CRP ####[place] [address]#### FOL, B12, JESSIE ####[place] [address] Hematocrit (Bld) [Volume fraction] 38.7 % Normal 37.0-47.0 [facility] ([place]) Comment on above: Performed By: #### L IPID, VIDH, FES, A1C, CMP, ANEU, FERR, CBC, ESR, FT4, GFR, ADIFF, JULIA, TSH, LIP, CRP ####[place] [address]#### FOL, B12, JESSIE ####[place] [address] Hgb 13.1 G/dL Normal 12.0-16.0 [facility] ([place]) Comment on above: Performed By: #### L IPID, VIDH, FES, A1C, CMP, ANEU, FERR, CBC, ESR, FT4, GFR, ADIFF, JULIA, TSH, LIP, CRP ####[place] [address]#### FOL, B12, JESSIE ####[place] [address] MCH (RBC) [Entitic mass] 30.1 pg Normal 27.0-31.2 [facility] ([place]) Comment on above: Performed By: #### L IPID, VIDH, FES, A1C, CMP, ANEU, FERR, CBC, ESR, FT4, GFR, ADIFF, JULIA, TSH, LIP, CRP ####[place] [address]#### FOL, B12, JESSIE ####[place] [address] MCHC 33.9 G/dL Normal 33.0-37.0 [facility] ([place]) Comment on above: Performed By: #### L IPID, VIDH, FES, A1C, CMP, ANEU, FERR, CBC, ESR, FT4, GFR, ADIFF, JULIA, TSH, LIP, CRP ####[place] [address]#### FOL, B12, JESSIE ####[place] [address] MCV (RBC) [Entitic vol] 88.8 fL Normal 80.0-94.0 [facility] ([place]) Comment on above: Performed By: #### L IPID, VIDH, FES, A1C, CMP, ANEU, FERR, CBC, ESR, FT4, GFR, ADIFF, JULIA, TSH, LIP, CRP ####[facility] [place] [address]#### FOL, B12, JESSIE ####[address] [address] Platelet 253 10 3/mcL Normal 130-400 [facility] ([place]) Comment on above: Performed By: #### L IPID, VIDH, FES, A1C, CMP, ANEU, FERR, CBC, ESR, FT4, GFR, ADIFF, JULIA, TSH, LIP, CRP ####[place] [address]#### FOL, B12, JESSIE ####[place] [address] Platelet mean volume (Bld) [Entitic vol] 9.1 fL Normal 7.4-10.4 [facility] ([place]) Comment on above: Performed By: #### L IPID, VIDH, FES, A1C, CMP, ANEU, FERR, CBC, ESR, FT4, GFR, ADIFF, JULIA, TSH, LIP, CRP ####[place] [address]#### FOL, B12, JESSIE ####[place] [address] RBC 4.36 10 6/mcL Normal 4.20-5.40 [facility] ([place]) Comment on above: Performed By: #### L IPID, VIDH, FES, A1C, CMP, ANEU, FERR, CBC, ESR, FT4, GFR, ADIFF, JULIA, TSH, LIP, CRP ####[place] [address]#### FOL, B12, JESSIE ####[place] [address] WBC 7.1 10 3/mcL Normal 4.6-10.8 [facility] ([place]) Comment on above: Performed By: #### L IPID, VIDH, FES, A1C, CMP, ANEU, FERR, CBC, ESR, FT4, GFR, ADIFF, JULIA, TSH, LIP, CRP ####[place] [id number]#### FOL, B12, JESSIE ####[address] [address] CMPon 11-15-2023 Albumin Level 3.5 G/dL Normal 3.5-5.0 [facility] ([place]) Comment on above: Performed By: #### L IPID, VIDH, FES, A1C, CMP, ANEU, FERR, CBC, ESR, FT4, GFR, ADIFF, JULIA, TSH, LIP, CRP ####[place] [address]#### FOL, B12, JESSIE ####[place] [address] Albumin/Globulin [Mass ratio] 1.0 {ratio} Low 1.1-2.5 [facility] ([place]) Comment on above: Performed By: #### L IPID, VIDH, FES, A1C, CMP, ANEU, FERR, CBC, ESR, FT4, GFR, ADIFF, JULIA, TSH, LIP, CRP ####[place] [address]#### FOL, B12, JESSIE ####[place] [id number] ALP [Catalytic activity/Vol] 80 U/L Normal 40-135 [facility] ([place]) Comment on above: Performed By: #### L IPID, VIDH, FES, A1C, CMP, ANEU, FERR, CBC, ESR, FT4, GFR, ADIFF, JULIA, TSH, LIP, CRP ####[place] [address]#### FOL, B12, JESSIE ####[address] [address] ALT [Catalytic activity/Vol] 23 U/L Normal 14-59 [facility] ([place]) Comment on above: Performed By: #### L IPID, VIDH, FES, A1C, CMP, ANEU, FERR, CBC, ESR, FT4, GFR, ADIFF, JULIA, TSH, LIP, CRP ####[place] [address]#### FOL, B12, JESSIE ####[address] [address] AST [Catalytic activity/Vol] 13 U/L Normal 10-40 [facility] ([place] Comment on above: Performed By: #### L IPID, VIDH, FES, A1C, CMP, ANEU, FERR, CBC, ESR, FT4, GFR, ADIFF, JULIA, TSH, LIP, CRP ####[place] [address]#### FOL, B12, JESSIE ####[address] [address] Bili Total 0.2 mg/dL Normal 0.2-1.0 [facility] ([place]) Comment on above: Result Comment: Use of this assay is not recommended for patients undergoing treatment with eltrombopag due to the potential for falsely elevated results. Performed By: #### L IPID, VIDH, FES, A1C, CMP, ANEU, FERR, CBC, ESR, FT4, GFR, ADIFF, JULIA, TSH, LIP, CRP ####[place] [address]#### FOL, B12, JESSIE ####[place] [address] BUN/Creatinine Ratio 21 ratio Normal 7-27 [facility] ([place]) Comment on above: Performed By: #### L IPID, VIDH, FES, A1C, CMP, ANEU, FERR, CBC, ESR, FT4, GFR, ADIFF, JULIA, TSH, LIP, CRP ####[place] [address]#### FOL, B12, JESSIE ####[address] [address] Calcium [Mass/Vol] 8.6 mg/dL Normal 8.4-10.2 [facility] ([place]) Comment on above: Performed By: #### L IPID, VIDH, FES, A1C, CMP, ANEU, FERR, CBC, ESR, FT4, GFR, ADIFF, JULIA, TSH, LIP, CRP ####[place] [id number]#### FOL, B12, JESSIE ####[address] [address] Chloride [Moles/Vol] 101 mmol/L Normal 98-107 [facility] ([place]) Comment on above: Performed By: #### L IPID, VIDH, FES, A1C, CMP, ANEU, FERR, CBC, ESR, FT4, GFR, ADIFF, JULIA, TSH, LIP, CRP ####[place] [address]#### FOL, B12, JESSEI ####[place] [address] CO2 [Moles/Vol] 30 mmol/L High 22-29 [facility] ([place]) Comment on above: Performed By: #### L IPID, VIDH, FES, A1C, CMP, ANEU, FERR, CBC, ESR, FT4, GFR, ADIFF, JULIA, TSH, LIP, CRP ####[place] [address]#### FOL, B12, JESSIE ####[place] [address] Creatinine [Mass/Vol] 0.71 mg/dL Normal 0.55-1.02 [facility] ([place]) Comment on above: Performed By: #### L IPID, VIDH, FES, A1C, CMP, ANEU, FERR, CBC, ESR, FT4, GFR, ADIFF, JULIA, TSH, LIP, CRP ####[place] [address]#### FOL, B12, JESSIE ####[place] [address] Electrolyte Balance 7.0 mEq/L Normal 4.0-15.0 [facility] ([place]) Comment on above: Performed By: #### L IPID, VIDH, FES, A1C, CMP, ANEU, FERR, CBC, ESR, FT4, GFR, ADIFF, JULIA, TSH, LIP, CRP ####[place] [address]#### FOL, B12, JESSIE ####[address] [address] Globulin 3.5 G/dL Normal [facility] ([place]) Comment on above: Performed By: #### L IPID, VIDH, FES, A1C, CMP, ANEU, FERR, CBC, ESR, FT4, GFR, ADIFF, JULIA, TSH, LIP, CRP ####[address] [address]#### FOL, B12, JESSIE ####[address] [address] Glucose [Mass/Vol] 97 mg/dL Normal 70-105 [facility] ([place]) Comment on above: Performed By: #### L IPID, VIDH, FES, A1C, CMP, ANEU, FERR, CBC, ESR, FT4, GFR, ADIFF, JULIA, TSH, LIP, CRP ####[place] [address]#### FOL, B12, JESSIE ####[address] [address] Potassium [Moles/Vol] 4.1 mmol/L Normal 3.5-5.1 [facility] ([place]) Comment on above: Performed By: #### L IPID, VIDH, FES, A1C, CMP, ANEU, FERR, CBC, ESR, FT4, GFR, ADIFF, JULIA, TSH, LIP, CRP ####[address] [address]#### FOL, B12, JESSIE ####[address] [address] Sodium [Moles/Vol] 138 mmol/L Normal 136-145 [facility] ([place]) Comment on above: Performed By: #### L IPID, VIDH, FES, A1C, CMP, ANEU, FERR, CBC, ESR, FT4, GFR, ADIFF, JULIA, TSH, LIP, CRP ####[address] [address]#### FOL, B12, JESSIE ####[address] [address] Total Protein 7.0 G/dL Normal 6.4-8.2 [facility] ([place] Comment on above: Performed By: #### L IPID, VIDH, FES, A1C, CMP, ANEU, FERR, CBC, ESR, FT4, GFR, ADIFF, JULIA, TSH, LIP, CRP ####[place] [address]#### FOL, B12, JESSIE ####[place] [address] Urea nitrogen [Mass/Vol] 15 mg/dL Normal 7-18 [facility] ([place] Comment on above: Performed By: #### L IPID, VIDH, FES, A1C, CMP, ANEU, FERR, CBC, ESR, FT4, GFR, ADIFF, JULIA, TSH, LIP, CRP ####[place] [address]#### FOL, B12, JESSIE ####[place] [address] CRPon 11-15-2023 C-Reactive Protein 0.9 mg/dL High 0.0-0.3 [facility] ([place]) Comment on above: Performed By: #### L IPID, VIDH, FES, A1C, CMP, ANEU, FERR, CBC, ESR, FT4, GFR, ADIFF, JULIA, TSH, LIP, CRP ####[place] [address]#### FOL, B12, JESSIE ####[place] [address] ESRon 11-15-2023 Erythrocyte Sed Rate 26 mm/hr High 0-20 [facility] ([place]) Comment on above: Performed By: #### L IPID, VIDH, FES, A1C, CMP, ANEU, FERR, CBC, ESR, FT4, GFR, ADIFF, JULIA, TSH, LIP, CRP ####[place] [address]#### FOL, B12, JESSIE ####[place] [address] Dion 11-15-2023 Ferritin [Mass/Vol] 45.0 ng/mL Normal 8.0-252.0 [facility] ([place]) Comment on above: Performed By: #### L IPID, VIDH, FES, A1C, CMP, ANEU, FERR, CBC, ESR, FT4, GFR, ADIFF, JULIA, TSH, LIP, CRP ####[place] [address]#### FOL, B12, JESSIE ####[place] [address] FESon 11-15-2023 Iron [Mass/Vol] 63 ug/dL Normal 50-170 [facility] ([place]) Comment on above: Performed By: #### L IPID, VIDH, FES, A1C, CMP, ANEU, FERR, CBC, ESR, FT4, GFR, ADIFF, JULIA, TSH, LIP, CRP ####[place] [address]#### FOL, B12, JESSIE ####[place] [address] Iron Sat 18 % Normal [facility] ([place] Comment on above: Performed By: #### L IPID, VIDH, FES, A1C, CMP, ANEU, FERR, CBC, ESR, FT4, GFR, ADIFF, JULIA, TSH, LIP, CRP ####[place] [address]#### FOL, B12, JESSIE ####[place] [address] TIBC 360 mcg/dL Normal 250-450 [facility] ([place] Comment on above: Performed By: #### L IPID, VIDH, FES, A1C, CMP, ANEU, FERR, CBC, ESR, FT4, GFR, ADIFF, JULIA, TSH, LIP, CRP ####[place] [address]#### FOL, B12, JESSIE ####[place] [address] FOLon 11-15-2023 Folate 13.29 ng/mL Normal 5.38-24.00 [facility] ([place]) Comment on above: Performed By: #### L IPID, VIDH, FES, A1C, CMP, ANEU, FERR, CBC, ESR, FT4, GFR, ADIFF, JULIA, TSH, LIP, CRP ####[place] [address]#### FOL, B12, JESSIE ####[place] [address] FT4on 11-15-2023 Free T4 [Mass/Vol] 0.88 ng/dL Normal 0.76-1.46 [facility] ([place]) Comment on above: Performed By: #### L IPID, VIDH, FES, A1C, CMP, ANEU, FERR, CBC, ESR, FT4, GFR, ADIFF, JULIA, TSH, LIP, CRP ####[place] [address]#### FOL, B12, JESSIE ####[place] [address] LIPon 11-15-2023 Lipase Level 23 U/L Normal 16-77 [facility] ([place]) Comment on above: Performed By: #### L IPID, VIDH, FES, A1C, CMP, ANEU, FERR, CBC, ESR, FT4, GFR, ADIFF, JULIA, TSH, LIP, CRP ####[place] [address]#### FOL, B12, JESSIE ####[place] [address] LIPIDon 11-15-2023 Cholesterol [Mass/Vol] 219 mg/dL High 0-200 [facility] ([place]) Comment on above: Result Comment: Chol esterol Reference Interval: Less than 200 Desirable 200-239 Borderline high risk 240 and above High risk Performed By: #### L IPID, VIDH, FES, A1C, CMP, ANEU, FERR, CBC, ESR, FT4, GFR, ADIFF, JULIA, TSH, LIP, CRP ####[place] [address] [place] [address]#### FOL, B12, JESSIE ####[address] [place], [place] [address] Cholesterol in HDL [Mass/Vol] 47 mg/dL Normal 40-60 [facility] ([place] Comment on above: Performed By: #### L IPID, VIDH, FES, A1C, CMP, ANEU, FERR, CBC, ESR, FT4, GFR, ADIFF, JULIA, TSH, LIP, CRP ####[place] [address]#### FOL, B12, JESSIE ####[address] [address] Cholesterol in LDL [Mass/Vol] 130 mg/dL Normal 0-130 [facility] ([place] Comment on above: Performed By: #### L IPID, VIDH, FES, A1C, CMP, ANEU, FERR, CBC, ESR, FT4, GFR, ADIFF, JULIA, TSH, LIP, CRP ####[place] [address]#### FOL, B12, JESSIE ####[place] [address] Triglyceride [Mass/Vol] 208 mg/dL High 0-150 [facility] ([place]) Comment on above: Result Comment: Trig lyceride Reference Interval: Less than 150 Normal 150-199 Borderline high risk 200-499 High risk 500 or higher Very high risk Performed By: #### L IPID, VIDH, FES, A1C, CMP, ANEU, FERR, CBC, ESR, FT4, GFR, ADIFF, JULIA, TSH, LIP, CRP ####[place] [address]#### FOL, B12, JESSIE ####[place] [address] TSHon 11-15-2023 TSH Qn 2.85 m[IU]/L Normal 0.36-3.74 [facility] ([place]) Comment on above: Performed By: #### L IPID, VIDH, FES, A1C, CMP, ANEU, FERR, CBC, ESR, FT4, GFR, ADIFF, JULIA, TSH, LIP, CRP ####[place] [address]#### FOL, B12, JESSIE ####[facility] [place] [address] VIDHon 11-15-2023 Vit. D 25-Hydroxy 11.2 ng/mL Normal [facility] ([place]) Comment on above: Result Comment: Inte rpretive Values Based on Total 25(OH) Vitamin D: Deficient <20 ng/mL Insufficient 20 - <30 ng/mL Sufficient 30-100 ng/mL Performed By: #### L IPID, VIDH, FES, A1C, CMP, ANEU, FERR, CBC, ESR, FT4, GFR, ADIFF, JULIA, TSH, LIP, CRP ####[address] [place], [place] [address]#### FOL, B12, JESSIE ####[place] [address] [address] [place] [address] Knee 4 or More Viewson 11-08 Knee 4 or More Views [facility] [address] [place] [address] Knee 4 or More Views MR#: [id number] Acct: [id number] Name: MATT CALABRESE Rep #: [id number] : 2000 F 23 From: Vitor Chacon MD PCP: Care Physician,No Primary Status: DEP [facility] Study: Knee 4 or More Views Date of Exam: 11/09/23 Exam# [id number] Ordering Dr: Dario Alejandre MD [id number] EXAM: XR LEFT KNEE COMPLETE, 4 OR MORE VIEWS CLINICAL INDICATION: pain TECHNIQUE: Four or more views of the left knee. COMPARISON: No relevant prior studies available. FINDINGS: BONES/JOINTS: Unremarkable. No acute fracture. No subluxation. Normal alignment. Preservation of the joint space. No sclerotic or destructive changes observed. SOFT TISSUES: Unremarkable. No soft tissue swelling or gas. No radiopaque foreign body. RAD/Knee 4 or More Views IMPRESSION: Negative left knee x-rays. Electronically Signed: Vitor Chacon MD at 23:55 EDT , CC: Dr. Dario Alejandre MD; No Primary Care Physician Ingot Header: Signed Normal [facility] Orthopedic Visit Reporton Orthopedic Visit Report [facility] [address] [place] [address] OFFICE VISIT Date of Service: 11/09/23 MR#: [id number] Acct: [id number] Name: MATT CALABRESE Rep #: [id number] : 2000 Provider: Dr. Dario huffman MD Age/Sex: 23/F Location: [facility] Status: Signed Intake Vital Signs 09/21/23 16:34 Height 5 ft 3 in Intake Visit Reasons: RIGHT HIP Chief Complaint: Left knee hurting Accompanied by: Self Is patient in pain?: Yes Pain scale (1-10): 4 Allergies amoxicillin Allergy (Verified 11/09/23 08:27) Upset Stomach erythromycin base Allergy (Verified 11/09/23 08:27) Upset Stomach Penicillins (PCN) Allergy (Verified 11/09/23 08:27) Upset Stomach trazodone Adverse Reaction (Unknown, Verified 11/09/23 08:27) suicidal ideation Medications ???Medication ???Instructions ???Recorded ???Confirmed ???Type CBD Oil topical 01/18/23 11/09/23 History ibuprofen 600 mg tablet 600 mg PO Q8H PRN pain 01/18/23 11/09/23 History cholecalciferol (vitamin D3) 1,250 1,250 mcg PO QWEEK 10/05/23 11/09/23 History mcg (50,000 unit) capsule hydroxyzine HCl 25 mg tablet 12.5 mg PO PRN anxiety 10/05/23 11/09/23 History sertraline 100 mg tablet 100 mg PO QDAY 10/05/23 11/09/23 History valacyclovir 500 mg tablet 500 mg PO QDAY 10/05/23 11/09/23 History PFSH Medical History (Updated 11/09/23 @ 08:41 by Dario Alejandre MD) Left knee pain Strain of Achilles tendon Contact with or exposure to other viral diseases URI (upper respiratory infection) Sprain of left foot Left ankle sprain Contusion of left knee Anxiety Social History Smoking Status: Never smoker substance use type: does not use HPI RIGHT HIP Details: This documentation accurately reflects the service provided and the decisions made by me, Dr. Dario Alejandre MD 11/09/23 0824. Part of today???s visit was documented by [ ], acting as scribe. MATT CALABRESE is a 23 year old F here today for L side knee pain, 1 year, no injury, had some falls with the ankle, feels weak. has been doing 2 weeks of PT. feels like will buckle, aches, hurts anteriorly and posteriorly. swelling - if standing for a long time. [place] - chiro, PT for 2 weeks, nsaids for on and off. tried a brace. Ortho Exam General General: Yes no acute distress Neurologic: Yes alert and Yes oriented x3 Psychologic: Yes reasonable and appropriate Right Knee Patella Translation: 2 Left Knee Skin/Wound: Yes CDI, No ecchymosis, No erythema and No swelling Knee ROM: Yes ROM-Flexion 0-140 Examination: Yes med jt line tenderness, Yes Lat jt line tenderness, Yes TTP inf pole patella, No Crepitus, Yes Pain with flexion, Yes Pedro's Test, Yes TTP Patellar tendon, Yes TTP Tibial tubercle, Yes TTP Pes Anserine and Yes Illiotibial band tenderness Quad Atrophy: No Stability: NML: Anterior Drawer, NML: Tobias, NML: Posterior Drawer, NML: Valgus 0, NML: Valgus 30, NML: Varus 0 and NML: Varus 30 Apprehension with Lateral Translation: No Patella Translation: 2 Patellar Tilt Normal: Yes Patella Grind: Yes KNEE: nvi, normal gait and alignment, able to show me manually 'moves' around patella but no dislocation or lateral subluxation Supplemental Info xr 4 view L knee -no acute findings. Joint spaces are well-maintained. The patellofemoral joint appears reduced no excess subluxation or tilt. Coding Level of Care Code Off vis,new,level 3 Diagnoses Left knee pain M25.562 Assessment and Plan Assessment and Plan (1) Left knee pain: Status: Acute Plan: 23-year-old female with left knee pain. Chronic failed nonoperative management could be a meniscus tear or chondral injuries mild patellofemoral instability anterior knee pain syndrome or other problems about the knee. At this point we will recommend getting an MRI and could consider intra- articular cortisone injection as well. Declined the injection for now and we will follow-up after the MRI of the knee. Orders: Orders Knee 4 or More Views Today M25.562 - Pain in left knee 11/09/23 0856 Date Dario Alejandre MD Cosigner Signature: Date (if applicable) CC: Normal [facility] CNOVon 11-05-2023 CNOV Normal [facility] CNPNon 11-05-2023 CNPN Normal [facility] XR HIP 3V PELV+ AP/LAT RTon 11-05-2023 XR HIP 3V PELV+ AP/LAT RT Normal [facility] XR Pelvis and Hip - right AP and Lateral frogon 11-05-2023 IMPRESSION: NORMAL APPEARANCE OF THE PELVIS AND RIGHT HIP Ingot Header: [facility] Transcribe Date/Time: Nov 05 2023 4:41P Dictated by : DA SCHMIDT MD This examination was interpreted and the report reviewed and electronically signed by: DA SCHMIDT MD on Nov 05 2023 4:42PM [facility] DIVISION OF RADIOLOGY * * *Final Report* * * DATE OF EXAM: Nov 05 2023 4:24PM WOX [id number] - XR HIP 3V PELV+ AP/LAT RT / PROCEDURE REASON: Pain of right hip * * * * Physician Interpretation * * * * Examination: XR HIP 3V PELV+ AP/LAT RT History: Pain of right hip Technique: XR HIP 3V PELV+ AP/LAT RT Comparison: None RESULT: AP pelvis and 2 coned-down views of the right hip show no fracture or focal bony abnormality. Normal mineralization and alignment. Joint spaces are maintained. SI joints are unremarkable. DIVISION OF RADIOLOGY Provider, Steve Adkins - 11/05/2023 * * *Final Report* * * DATE OF EXAM: Nov 05 2023 4:24PM WOX [id number] - XR HIP 3V PELV+ AP/LAT RT / PROCEDURE REASON: Pain of right hip * * * * Physician Interpretation * * * * Examination: XR HIP 3V PELV+ AP/LAT RT History: Pain of right hip Technique: XR HIP 3V PELV+ AP/LAT RT Comparison: None RESULT: AP pelvis and 2 coned-down views of the right hip show no fracture or focal bony abnormality. Normal mineralization and alignment. Joint spaces are maintained. SI joints are unremarkable. IMPRESSION IMPRESSION: NORMAL APPEARANCE OF THE PELVIS AND RIGHT HIP Ingot Header[facility] Transcribe Date/Time: Nov 05 2023 4:41P Dictated by : DA SCHMIDT MD This examination was interpreted and the report reviewed and electronically signed by: DA SCHMIDT MD on Nov 05 2023 4:42PM EST [facility] Radiology Study observation (narrative) [facility] XR Pelvis and Hip - right AP and Lateral frogOrdered By: Ccf Provider on 11-05-2023 [facility] Anatomy And Physiology Instructor Cytology Reporton 2023 Anatomy And Physiology Instructor Cytology Report . Pathology Reports Accession: Collected Date/Time: Received Date/Time: Pathologist: [id number] 10/29/2023 17:02 EDT 10/31/2023 18:00 EDT MD ADAM CHAVES Anatomy And Physiology Instructor Cytology Report SPECIMEN: Specimen Description: Liquid Prep Reflex ASCUS+ Specimen: Cervical/Endocervical Screening or Diagnostic: Screening RELEVANT HISTORY: LMP: unknown SPECIMEN ADEQUACY: SATISFACTORY FOR EVALUATION Endocervical/Transformati onal zone component present INTERPRETATION/RESULTS: NEGATIVE FOR INTRAEPITHELIAL LESION OR MALIGNANCY SUGGESTIONS/EDUCATIONAL NOTES: This case has been reviewed for 10% QA rescreen COMMENT: This Pap Test was successfully processed and evaluated with the assistance of the [employer] ThinPrep Test Imaging System. Electronically Signed by Pathology report verified by [facility] Screened by: MARIANA Electronically signed by ADAM CHAVES MD Sign-Out Date: 11/02/2023 16:07 Performing Lab: [facility], [address] [place] [id number] [place] [address] Pathology Dept Disclaimer The Pap test is a screening test for cervical cancer. As evidenced by published data, it is subject to both inherent false negative and false positive results. Your patient's results should be interpreted in context with pertinent clinical history including gynecological examination. Normal [facility] ([place]) No Panel InformationOrdered By: Ricardo Lopez on 10-29-2023 [facility]irm Pathogens DNA Direct Probe Trichomonas vaginalis DNA Probe Negative Gardnerella vaginalis DNA Probe Negative Maria Elena species DNA Probe Negative [facility] Absolute lymphocyte countOrd ered By: Shahzad Dsouza on 09-21-2023 Lymphocytes Auto (Unsp spec) [#/Vol] 3.06 10*3/uL 0.83-4.51 [facility] Automated lymphocyte count a s percentage of total leukocytesOrdered By: Shahzad Dsouza on 09-21-2023 Lymphocytes/100 WBC Auto (Unsp spec) 36.0 % 19-41 [facility] Basophil percentageOrdered B y: Shahzad Dsouza on 09-21-2023 Basophils/100 WBC (Bld) 0.5 % 0-1 [facility] Bilirubin [Mass/Vol] 0.10 mg/dL 0.20-1.00 [facility] Comment on above: For patients on eltr ombopag therapy, use of Dimension [place] TBIL is not recommended. Chloride [Moles/Vol] 108 mmol/L 98-107 [facility] Eosinophils/100 WBC (Bld) 1.3 % 0-5 [facility] Glucose [Mass/Vol] 117 mg/dL 74-106 [facility] Comment on above: Fasting Glucose resu lt from 100 to 125 mg/dL suggests IMPAIRED HOMEOSTASIS per A.D.A. criteria. Hemoglobin (Bld) [Mass/Vol] 11.8 g/dL 12.0-15.0 [facility] Monocytes/100 WBC (Bld) 7.3 % 0-10 [facility] Neutrophils (Bld) [#/Vol] 4.7 10*3/uL 2.0-7.7 [facility] Neutrophils/100 WBC (Bld) 54.8 % 47-70 [facility] Potassium [Moles/Vol] 3.7 mmol/L 3.5-5.1 [facility] Protein [Mass/Vol] 7.1 g/dL 6.4-8.2 [facility] Sodium [Moles/Vol] 141 mmol/L 136-145 [facility] WBC (Bld) [#/Vol] 8.5 10*3/uL 4.4-11.0 [facility] Determination of erythrocyte mean corpuscular volume (MCV)Ordered By: Shahzad Dsouza on 09-21-2023 MCV (RBC) [Entitic vol] 90.1 fL 81-99 [facility] Erythrocyte distribution wid th ratioOrdered By: Shahzad Lianna on 09-21-2023 Erythrocyte distribution width (RBC) [Ratio] 12.2 % 11.6-14.6 [facility] Erythrocyte distribution wid th standard deviationOrdered By: [place] Lianna on 09-21-2023 Erythrocyte distribution width (RBC) [Entitic vol] 39.7 fL 35.1-43.9 [facility] Hematocrit Auto (Bld) [Volum e fraction]Ordered By: [place] Lianna on 09-21-2023 Hematocrit (Bld) [Volume fraction] 37.2 % 37-47 [facility] Immature granulocytes/100 WB C Auto (Bld)Ordered By: Shahzadhenna Dsouza on 09-21-2023 Immature granulocytes/100 WBC (Bld) 0.100 % 0.0-0.9 [facility] Comment on above: IG% - Immature Granu locytes (promyelocytes, myelocytes and metamyelocytes) > 1% indicates that a LEFT SHIFT is Present. Laboratory - Chemistry and C hemistry - challengeOrdered By: Shahzad Dsouza on 09-21-2023 Albumin/Globulin [Mass ratio] 0.9 {ratio} 0.9-2.4 [facility] ALP [Catalytic activity/Vol] 77 U/L 45-117 [facility] ALT [Catalytic activity/Vol] 21 U/L 13-56 [facility] CO2 [Moles/Vol] 27.0 mmol/L 21.0-32.0 [facility] Globulin (S) [Mass/Vol] 3.7 g/dL 2.2-4.2 [facility] Lipase [Catalytic activity/Vol] 29 U/L 13-75 [facility] Comment on above: Please note:LIPASE r evised reference range effective 22. New Lipase methodology. Expected to produce lower values than the previous assay method. NEW Reference Range: 13 - 75 U/L Urea nitrogen/Creatinine [Mass ratio] 22.4 mg/mg 10-20 [facility] Laboratory - Hematology and Cell countsOrdered By: Shahzad Dsouza on 09-21-2023 MCH (RBC) [Entitic mass] 28.6 pg 27.0-32.0 [facility] MCHC (RBC) [Mass/Vol] 31.7 g/dL 32-36 [facility] Nucleated RBC/100 WBC (Bld) [Ratio] 0 % 0-5 [facility] Platelet mean volume (Bld) [Entitic vol] 10.4 fL 6.2-12.0 [facility] Platelets (Bld) [#/Vol] 295 10*3/uL 150-450 [facility] No Panel InformationOrdered By: Shahzad Dsouza on 09-21-2023 Estimated Creatinine Clearance Calc 142.74 ml/min [facility] Estimated GFR (MDRD) Amer 129 mL/min >60 [facility] Comment on above: GFR Calc Estimated GFR (MDRD) Non-Af Amer 107 mL/min >60 [facility] Comment on above: Non- GFR Calc RBC Auto (Bld) [#/Vol]Ordere d By: Shahzad Dsouza on 09-21-2023 RBC (Bld) [#/Vol] 4.13 10*6/uL 4.2-5.4 [facility] er [facility] Serum or plasma calcium carole urement (mass/volume)Ordered By: Shahzad Dsouza on 09-21-2023 Calcium [Mass/Vol] 9.0 mg/dL 8.5-10.1 [facility] r [facility] Serum or plasma choriogonado tropin detectionOrdered By: Shahzad Dsouza on 09-21-2023 HCG ( test) Ql Negative [facility] Serum or plasma creatinine m easurement (mass/volume)Ordered By: Shahzad Dsouza on 09-21-2023 Creatinine [Mass/Vol] 0.71 mg/dL 0.55-1.02 [facility] Comment on above: The validity of the calculated GFR & GFRAA in patients over 70 years has not been determined. Clinical correlation is essential. Serum or plasma urea nitroge n measurement (mass/volume)Ordered By: Shahzad Dsouza on 09-21-2023 Urea nitrogen [Mass/Vol] 16 mg/dL 7-18 [facility] Thin prep Papanicolaou smear with manual screeningOrdered By: Shahzad Dsouza on 09-21-2023 Thin prep Papanicolaou smear with manual screening 3.4 g/dL 3.2-5.0 [facility] Thin prep Papanicolaou smear with manual screening 16 U/L 15-37 [facility] Thin prep Papanicolaou smear with manual screening 6 5-15 [facility] SURGICAL PATHOLOGYOrdered By : Roberto Esqueda on 09-17-2023 Case Report Surgical Pathology R eport Case: [id number] Authorizing Provider: Prakash Holland MD Collected: 09/14/2023 07:23 AM Ordering Location: Ambulatory Surgery Received: 09/14/2023 08:03 PM Pathologist: Roberto Esqueda MD, PhD Specimens: A) - Small Bowel, Duodenum, Biopsy, r/o celiac B) - Stomach, Biopsy, r/o H-pylori C) - Esophagogastric Junction, Biopsy, r/o barrets D) - Esophagus, Distal, Biopsy E) - Esophagus, Proximal, Biopsy [facility] Work Phone: FINAL DIAGNOSIS [id number] NVxhb tJaGASxxQGsY4LartndGPskLA 8nSN9asUzhuBMvcXVtOAZgIqT qd8mhf886nHTmt2tgNDFJwoxh lQp3iCnuK86ks3K9LgoqA21hs RVxUVI6FVOcVFHdyLOiUIYvGK F8HUJmfCTpT5klZPFuDW5aweh qJKzlQWjcXVPwnON6FVOdbPSi A8OvSZLmVQjvMKFlgsl4WgEpT g2lvPOqpZvoCZlpVWMrOGHbWO hzWARcSxNzXJ4zDOFxMJVvtN9 uYUGni5HvpXrvfORmVK5fJNTe FSIfQOeisAOhd9XlWOdnqIjsi y5qJWzvY49be7WxDeVoNz7hyv 0wbWd5nU0gyXTdPCDfzuITVeT QyF8oLBIeTMYlmC8ux3s3CRWl vgYrHDovl5HyvVNaLA41ajLgA B44B34lIHV4cUFtAVTbWTT2fQ WpSQhan7Hvw5OvmFt5IohvYMF hAZLWpqOeitiiJL1lCRTcOzRK QzDjoQhijptqsJygxx3jslfzu jhqnPZai78oPHBYLUYwC4Ixe8 3lGjkuDYOfxTXoKDFrKPFih2L xCMtpB9YwgPVwIwXyoX0wyQsg eyxkGltwzOM3MaxqLLQwCDCZG CGflCm4XEZzwRRnzW53hbHyeX Wfr4OnSNChqsmvYBNsXB4gRRN lqZcxZ3MtHDTnqJD0JZjiQSRt k7XryJotvGGwOF3lT3U1QA4td CGiiMDff6VsHYpbfFwzec0jTA ehF72uc5KmOfOoIt8ylv6rdBh 8qK2zyFYsOUNadwJQTaQSn02o tTJmpRBkGEFbs4lqpLFdFBUsz R8xo9m7KAPbsiAwYRQugVHgw7 RlAB27K00hOOT1eQYfTJ4mYHG wSOqvb7R3zJBlIGNia9VnCNdf dHkuXHBhcn0= [facility] Work Phone: Gross Description y9ppgUUrLRDdoOBOLRZ1 MDJcY E2kgWpieVv9vHxsCBNcbjK2xR XfEXiea5tlJRR4h7nmyuGCMpc oXTAzBO5nFImfWSLpMI1xSkAx XGRlZmYxXHBhcGVydzEyMjQwX NXarREcvCF4AHTzBG8wppqzLU fsXOnjUHEnsrF2TRZzuYXtZ0V wTUHaZO5brqngKEU5DLKDIfgg Fc0skNOdjNpnGcGbQfXiNIYgA HPsSXDuh8nzylVWvocqqVh6dU 0QPEVoL3GsUT2Nr9jaLDIkxRV qNEC4GKaza0xnIUuvAYG5RDXs KKCaIQSeRI5MRcGpRUEoXZv3K YtzXcO5LNf5GTNVGIRpWUN0Vr K5GTUxFWl7RYanDBoazKVeQUP gKJYhYTCcLTeppkD2a6xpLJSz eBOnXHT5LJvlr4kwZGqcIGV6E KKaNnQjLAKbKO8URzBuHVYkZM g6ALppLyR8QFp9NQHZNsWnCbD sZPXwCfDcKHKeGAl5CUt8QAuL GxWaHdtwCFIrZpBbDmJ5VBW9A SBcXHQgMiBcXHNzIDMgXFxmbC ViAV2lbRmgAARmXL3KUNDrXPn eZBTeTaQnMS7sE00qoMoyOp08 XRckOKW4r9WttyHcJXCRaB9wd 5lteDYxN9jxvVTgHV3UCVCrpy CkGGxwdGuplM4qzUNbA8gsNaS yMlxlcGljTmVzdERvYzEgDQpc tZUrtGJwFBOeNwHnJBZgB8wwD ZDgBJ8GVUIrEvQgUaKhNHh6RC FpiJ0dBf3lcRHmmV5mBJKkLST 6yfNevGQkVSPmf0FdsIHiTLEx c5O3HYGug6U5RXIrH1goGKyjp EemZgT2biHcSmpceCWlJvWcdX ChGvLcM30aOAWsgQDddCfnf1D ybXl6iXDzAXmvRR6oRBAuZXLu WFX9US7VKwkzlUjlLhAqkEQpP aO7NIXhjFFzSWJ4GN5umUicDI BmOUk5RRygOAOtF1MlZ3BxCEm zZyBcXGlkIDUxMDAyIFxcZGIg U0GWELSgJhL8QNI8MxRzXUr7Z Eq2UG2MVgMgYFO5VCWzXQOmHs KcXBw6UTryJU0IHADyQzP8XCC 9QEmaMXI5SBp0KOfcbWAfIAfy n9BiGlRbUPEnVTenokL4TITmk uTfa6ZeQDBjPHHuS9elDiFwCQ UOPjherwMbOEGxKZC7h79fP3w rPWAaa6YluHqhZLOnZPswoMVy ZCANClxwbGFpblxsdHJjaFxmc aDwFGUocKTJVRW9YQ4tAUIGIx lqoELvLKFtu3GaSSzxwHisMFD cBbPfn5JbPMlkkHlhZVJkFiFj DQpcZnMyMCBSZWNlaXZlZCBpb gHrz7EkZQkblgItjlPdbLDooM emiNPjbGdgV5UjTT8vXPLiyur lj71goHR3nDPliLRmQOwlwfZb WIRkbjpmkN1sHG52QZxvLQ2qB SidMS7yFNQyBmPVr2UwzHu3RR A4Wl4blXHrRLLsyjRlnaBhI2Z ge2M5dYTiTNetCKOwM88pu5RT k5Qqd6njvNaas8SalEEmHO5sl VBcHL7Hi9kbKCTcrAKdDYX3PW omc3cwOGslYPU2ECLvYtIqZYN qKL1PBnJlNLIdZHy9GLppSjK4 HBi2DUWIByJnBcQjKBNbTpXtO fjeMPh7LFm6NBaVIoFxKqemGX QyZqUhJlM0VCX3CZSbTSIkVtS kABAwUBNpBDsirTDbWZ2njJje EFLuYOHePDX3DIPlwFSCp3CvS LIvAOepArFpDyIVTcFYg94kaP Qla9fbq4SlcSBpYFf3flF0jV0 dIIAQsP9rc9loqBMtJD3GQSDe qiYuRBzccJtjxZ3qgHUjG9feG nMyMlxlcGljTmVzdERvYzEgDQ qyoLZepLNfKPPzWoHmBPIwA5h aZnEpTFYeHyQbRCVyT7imDWFr JC8FFBIqAcJiQfAoXMd5ZDUay P4aAe9sbFKbnH7fOENpEXM8ft UkdHWlNSHfi0AvjGKgFLVut8P 6ZJMse1M3VABxS0kcTQktcYtr BmB0mzIlUvZjqOPaWmYooDGaD fVaR73iPNZirYHvoMuof5BltS z6eHLgDDypLW4cCMQqXOTrGQA 9JD8QDclfoKivLkXlyXWgXaH7 GMPgzDTaZRW8MV6auSnqLHYzA Df9UWuvYGJkH3YuN5JmUUcqWn OsKVdfRTAdSXOxQRdrQCYrS5A VQTOtVnP9VRK4HiUeLXc8AAp1 KI0AFyLvEDJ9LMTfLVL3VLJrG Dm1AZgeFS1OYQDnCeQ9JYM1Ms MqHUA5PQa0KCxttODyXIpgh3Z kRkOhCABfLRizxvW0GKHzfmXr g3MtLDCtQYSaK6jcAjLqMFHVB tkoecKgFCEeIUOus2RmSOz5vz zeCOzoxYAkXTAUmU0aj7hlrOH lBE2WUZYkljEtSCowtEhdxP1m nLAcM9zqMgWcQfbznKrzAuVth ERvYzEgDQpcbHRycGFyXHNiMz IzDDEdZ5xlSrZaKRGpFpEhTBN vP5ayNPSiRD8SFMSgZpMfBhFy AKp1THOvaA1pTi7ddOOueD7eS MUfCP34vWQfjWizEFKwHSRvlh UtNvJ7AZ7wYVEbEpAgsAcmj2X qCZIyM9CiZ4Q0fS8jVGWkMKJm MZP7SWYeLzA5RXJtCSYcxX5pB Q26WArosNBobKYlvUI3HDAfvF 8cn30qFUTqm8AyuYZdEe9HHKM ehETCUVE7ML0uGSobAIItZ9Us T3DjdvK3AWAmxkRFNkepUogwj Wreu1NmcBQtYYHaIRhgdIGmPL EiHTZwHPpcUaVEDmEsSsT8LXg 1Vul5NgSdPGk2LQwwC5SRZNFe GEKlReXuVywnEwT9CFz6PCNWK t8yJOX9BtgyFJi5RpEeGJK1Li HcNSw6DSYxGXqsaoEwJMgpXyb mQPenB63qyEAgAVxlFsBzEDpq uPvhMMSgTSO5RM3AWFPrFuAwC E6jAYUchYzfC5BlDFDGmk86jM 9cqGuaUhsqzYU7LIAfzuHHDdw lNSVrYG0MDSVzVMetAGg7qtBx JRQtYkKwEGRuJ79iy5EUg9VpP R9RYVm4ioGygxggXrLqXFEcjH HXl3JcROIPHfwiqgJcRQCyA1R kcdYtHZxnVXXtvu8kjDpdRCGm MGC0o22bfSnyC6CqDU2sBWErk gmxb59uhHA7fOIwjRAsBSadzz YnOEJtmiianK8sSJ78WXwpYV4 xQHqqRK9bVOTrOfWVs3ScyHg0 NYT7Km1tdVVcGKLobdYvvxDtH 0Etf2Z1zULpDUuuVVIdSJkyvI FyZFxsdHJwYXIgDQpccGFyIA0 AT9SbPOPlzZqfRqTzHGXkNuKy HKE3KtPvID3xbTIvYY1NBMUxc pAUDemdj3RzKDD8AT4zcaV9oG 2dGFSykrTywz8iMPMxwRMEiDR 8DBlgnhSeI8raaiyiLAM9XULd PCG5S0woFDQIasYnMQOHoPP9Q WucmuGcHQ7INYM3PEw2BJSggn TYSlpfQCJbONPsqISOv3YtJLE NOqwpwQcgKuGvrUOwSbO9FKXd aCNyDQH6NP9juIppTADdT2TzO 0HuhwA3ATWdpeGOHlngCBTrDN 5YHEGwNkMjRBo4 [facility] Work Phone: Performing Lab o6urxILtQEXyzAKpUqMj MDAwX PMay8goRKCrkHUoBhWsFoNpHu NnMtdciAXoPSEdCsWtq2smg60 7hDJsj4ynABAfMoV5vVSsTECi zQTpB319RRNqXPlut0vsh8YjD NXotMOne6V7YOFWxikkdVq7sF mtM79bt0P9RhucB0lcWMHzQFG jN7EnNZ7sIZZsKuv6XQY7UUO1 DJMlZHJdC9NjVV5sMGXuySVtY Ki5u4nrzRtqOGBcBRC6c1eoLK exiqOkYV9jxk2rgQz2c8nigsW nIMGmNUJqlAILAZRcE5UtpEzv Ut9viUh5uVfuXqojPHC9Xeq9D T7cas79okd0nBinLVSljgshGa A2LEskEQComzcbQJe3OWhiYIM ivIR2WVZznJIkF5JgIKqlRP8r gwf1FCY5ODyrIRYnIwK8QQNxd YWrLDGppHacJBxuq761HPX1Yj EpZP3yG2Bih2Z1xC9ygKEfPRP csQSfRcOnTLHitm5jtOWsCIfy e9EwWTV6hfE4qSWphSOsQSQvF A06Eobmr4AjDhvlp7QwY13tpN V0KOyzk6anGQ8sCoW7vcSwGUz wm4rzzD9fYhJ4RCyeOE6fEX2f IINmxC8alrxkWGJoMlMiaeywX HTgtRdgcrQyFj6tdQgjKUJ3CH boM0fmcJ0bPwT4LJqqL0kkvB2 vUCs3HPstxWH7IRUshZ8sKA7x npagk0qaQTulUIskIPTlzlM7l kRvLOFoqGLmC2ZshG9iCGQvBK 8uzdlvp4ymWQO0WYlqVDPzJCL 8KkWhJKYwg7Gknqw9GeAlg1Gd eWNxARmxU58ng435BOVnzgXnR 1xwbGFpblxwbGFpblxmMFxmcz T2BVOtONWoCXnbXBQeDZIxXfS cbGFuZzEwMzNcaGljaFxmMVxk DeHzIVXpXUyvX3odYuGcUbFxB uWLpTPoxe9luYfvSTtlgRMpyS OpbCH1fX6gGZAcciIpkp1bVKH dkYZIaNG4UEwnkuMwE5qblmqc LYB3QGReFYD1B3xhOFCIiqZdM VXqXMMscPKfDZSPHSN5PTX2MF BzLNCVLDAbOCN2FQV6HBGkPNT ccGFyXHBhclxwYXJkXHBsYWlu BRTzXXAcUePmxBhmnI7zAeSuY dUbTxpuWW2aLBNnJ6dbbHYsMR SzIVZzL5hpXuAooI5yfBobKRd jZjJcZnMyMlxsdHJjaCBMYWJv ebY2i9C7WKmphVPkadruRGdox aVpTUenwxxaFKRrPTnjK8lfOi ZgAWZkrOzwCJpom7LmNHKbWMN kXcGcSQobTGS8w8S8ZYojoFVk ykQPXcTZHO9noAYfyuukNS0OY lxwYXJ9 [facility] Work Phone: [facility] Work Phone: EGD Study observation Narrat ivnatacha 09-14-2023 [facility] Patient Name: Matt Claabrese Procedure Date: 09/14/2023 7:00 AM Date of : 2000 Admit Type: Outpatient Age: 23 Room: [place] [address] Gender: Female Note Status: Finalized Attending MD: Prakash Holland MD, [id number] Procedure: Upper GI endoscopy Indications: Dysphagia, Heartburn, Diarrhea Providers: Prakash Holland MD Patient Profile: This is a 23 year old female. Refer to note in patient chart for documentation of history and physical. Referring Physician: Mary Murillo (pa) (Referring MD) Medicines: Monitored Anesthesia Care Complications: No immediate complications. Requesting Provider: Procedure: Pre-Anesthesia Assessment: - Prior to the procedure, a History and Physical was performed, and patient medications and allergies were reviewed. The patient's tolerance of previous anesthesia was also reviewed. The risks and benefits of the procedure and the sedation options and risks were discussed with the patient. All questions were answered, and informed consent was obtained. Prior Anticoagulants: The patient has taken no anticoagulant or antiplatelet agents. ASA Grade Assessment: III - A patient with severe systemic disease. After reviewing the risks and benefits, the patient was deemed in satisfactory condition to undergo the procedure. After obtaining informed consent, the endoscope was passed under direct vision. Throughout the procedure, the patient's blood pressure, pulse, and oxygen saturations were monitored continuously. The Endoscope was introduced through the mouth, and advanced to the second part of duodenum. I was present and participated during the entire procedure, including non-echavarria portions, and during the administration and monitoring of Moderate Sedation. The upper GI endoscopy was accomplished without difficulty. The patient tolerated the procedure well. Moderate Sedation: MAC anesthesia was administered by the anesthesia team. Findings: The Z-line was irregular and was found 35 cm from the incisors. Biopsies were taken with a cold forceps for histology. Verification of patient identification for the specimen was done. Estimated blood loss was minimal. The exam of the esophagus was otherwise normal. Biopsies were obtained from the proximal and distal esophagus with cold forceps for histology of suspected eosinophilic esophagitis. A few localized small erosions with no bleeding and no stigmata of recent bleeding were found in the gastric body and in the gastric antrum. Biopsies were taken with a cold forceps for Helicobacter pylori testing. Verification of patient identification for the specimen was done. Estimated blood loss was minimal. The examined duodenum was normal. Biopsies for histology were taken with a cold forceps for evaluation of celiac disease. Verification of patient identification for the specimen was done. Estimated blood loss was minimal. Impression: - Z-line irregular, 35 cm from the incisors. Biopsied. - Erosive gastropathy with no bleeding and no stigmata of recent bleeding. Biopsied. - Normal examined duodenum. Biopsied. - Biopsies were taken with a cold forceps for evaluation of eosinophilic esophagitis. Recommendation: - Discharge patient to home. - Resume previous diet. - Continue present medications. - Use Prilosec (omeprazole) 40 mg PO daily. - Await pathology results. - Patient has a contact number available for emergencies. The signs and symptoms of potential delayed complications were discussed with the patient. Return to normal activities tomorrow. Written discharge instructions were provided to (more content not included)... [employer]ATION [facility] Radiology Study observation (narrative) [facility] COVID & INFLUENZA A/B & RSV NAAT, ROUTINEon 08-03-2023 FLUAV RNA SHO+probe Ql (Unsp spec) Not detected Not Detected [facility] FLUBV RNA SHO+probe Ql (Unsp spec) Not detected Not Detected [facility] RSV A RNA SHO+probe Ql (Unsp spec) Not detected Not Detected [facility] SARS-CoV-2 (COVID-19) RNA SHO+probe Ql (Resp) Not detected See comment [facility] INFLUENZA A&B MOLECULAR (POC )on 08-03-2023 Flu A (POCT) Negative Negative [facility] Flu B (POCT) Negative Negative [facility] Procedural Control Valid [facility] XR Chest PA and Lateralon IMPRESSION: No definite acute radiographic abnormality. Ingot Header: WILL Transcribe Date/Time: Aug 03 2023 11:36A Dictated by : AMADA CERRATO MD This examination was interpreted and the report reviewed and electronically signed by: AMADA CERRATO MD on Aug 03 2023 11:39AM [facility] DIVISION OF RADIOLOGY * * *Final Report* * * DATE OF EXAM: Aug 03 2023 11:29AM WOX [id number] - XR CHEST 2V FRONTAL/LAT / PROCEDURE REASON: Acute cough * * * * Physician Interpretation * * * * EXAMINATION: CHEST RADIOGRAPH (2 VIEW FRONTAL & LATERAL) CLINICAL HISTORY: Acute cough MQ: XC2_6 EXAM DATE/TIME: 08/03/2023 11:29 AM COMPARISON: Chest x-ray on 02/26/2023 RESULT: Lines, tubes, and devices: None. Lungs and pleura: Small lung volume due to inadequate inspiration. No definite consolidation. No lung mass. No pleural effusion. No pneumothorax. Cardiomediastinal silhouette: Stable cardiomediastinal silhouette. Bones and soft tissues: Unremarkable. DIVISION OF RADIOLOGY Provider, [facility] - 08/03/2023 * * *Final Report* * * DATE OF EXAM: Aug 03 2023 11:29AM WOX [id number] - XR CHEST 2V FRONTAL/LAT / PROCEDURE REASON: Acute cough * * * * Physician Interpretation * * * * EXAMINATION: CHEST RADIOGRAPH (2 VIEW FRONTAL & LATERAL) CLINICAL HISTORY: Acute cough MQ: XC2_6 EXAM DATE/TIME: 08/03/2023 11:29 AM COMPARISON: Chest x-ray on 02/26/2023 RESULT: Lines, tubes, and devices: None. Lungs and pleura: Small lung volume due to inadequate inspiration. No definite consolidation. No lung mass. No pleural effusion. No pneumothorax. Cardiomediastinal silhouette: Stable cardiomediastinal silhouette. Bones and soft tissues: Unremarkable. IMPRESSION IMPRESSION: No definite acute radiographic abnormality. Ingot Header: WILL Transcribe Date/Time: Aug 03 2023 11:36A Dictated by : AMADA CERRATO MD This examination was interpreted and the report reviewed and electronically signed by: AMADA CERRATO MD on Aug 03 2023 11:39AM EST [facility] Radiology Study observation (narrative) [facility] XR Chest PA and LateralOrder ed By: [facility] Provider on 08-03-2023 [facility] US PELVIS NON-OB COMPLETEon 07-13-2023 US PELVIS NON-OB COMPLETE ORIGINAL HISTORY: Irregular menstrual cycles COMPARISON: No FINDINGS: The uterus measures 8.5 cm in length. There is a 7 mm endometrial stripe. The ovaries are unremarkable in appearance, with normal blood flow. There is no free fluid. IMPRESSION: Unremarkable examination. Interpreted by: Jake Lane MD Preliminary Report By: Jake Lane MD Electronically signed By Jake Lane MD Dictated Date: 07/13/2023 1:56:24 PM Prelim Date: 07/13/2023 1:57:03 PM Sign Date: 07/13/2023 1:57:03 PM Ordering Provider: JACK PRIEST [facility] ([place]) [employer] BREAST LTD LTon 04-23 [employer] LT * * *Final Report* * * DATE OF EXAM: Apr 23 2023 2:17PM W [id number] - [employer] / PROCEDURE REASON: multiple diagnoses * * * * Physician Interpretation * * * * #[id number] - [employer] LIMITED ULTRASOUND OF LEFT BREAST: 04/23/2023 HISTORY: Multiple Diagnoses. RESULT: Comparison is made to exam dated: 04/15/2020 CT - [facility]. Color flow ultrasound of the left breast was performed. Snell scale images of the real-time examination were reviewed. There is a benign 1.9 cm oval cyst with a smooth internal wall in the left breast at 9 o'clock middle depth. This oval cyst is hypoechoic with internal echoes. This correlates with CT findings. Color flow imaging demonstrates that there is no vascularity present. IMPRESSION: BENIGN FINDING There is no sonographic evidence of malignancy. The 1.9 cm oval cyst in the left breast most likely is a cyst and is benign. Bethel Lai M.D. 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 With representation from Breast Imaging, Internal Medicine, Women's Health, Family Medicine, and Medical/Surgical Oncology, the [facility] has carefully reviewed the data and reached the following consensus: 1) All women should engage in shared decision-making with their providers to decide when to start and how often to screen; 2) All women should have the opportunity to start screening mammography at age 40; 3) For women ages 45-55, we recommend annual screening mammograms; 4) For women ages 55 and over, we support both the transition from an annual to a biennial interval if this aligns more with patient's values and preferences, or continuation with annual screening; 5) All women should discuss with their providers when to stop screening mammograms. Ingot Header: Nayeli Transcribe Date/Time: Apr 23 2023 2:11P Dictated by : BETHEL LAI MD This examination was interpreted and the report reviewed and electronically signed by: BETHEL LAI MD on Apr 23 2023 2:36PM EST [id number] Normal [facility] US BREAST LTD LEFTon 023 [facility] ALLIED HEALTHon 04-15-2023 ALLIED HEALTH HNO ID: [id number] Author: Mary Pierce Tech Service: Radiology Author Type: Accounting Tutor Type: Allied Health Filed: 04/15/2023 9:28 AM Note Text: Radiology Service Progress Note PATIENT NAME: Matt Calabrese DATE OF SERVICE: April 15, 2023 TIME: 9:28 AM PATIENT IDENTITY VERIFICATION COMPLETED USING TWO (2) IDENTIFIERS: Name and Date of confirmed by patient verbally and Name and Date of confirmed by identification band. FALL SCREENING: Has the patient had 2 falls in the last year or 1 fall with injury or currently using an Ambulatory Assistive Device (Walker, Cane, Wheelchair, Crutches, etc.)? No PATIENT GENDER DATA: Female. status: : No status: NO. PATIENT RELEVANT IMPLANT DATA REVIEWED: Yes RADIOLOGY DEPARTMENT: CT; Exam(s) Completed: Chest PERIPHERAL IV DATA: Not applicable SIGNED BY: Michael Benedict April 15, 2023 9:28 AM Normal [facility] CT CHEST WO IVCONon 04-15-20 CT CHEST WO IVCON * * *Final Report* * * DATE OF EXAM: Apr 15 2023 9:32AM [facility] 0541 - CT CHEST WO IVCON / PROCEDURE REASON: J45.40-Moderate persistent asthma without complication * * * * Physician Interpretation * * * * EXAMINATION: CHEST CT WITHOUT CONTRAST CLINICAL HISTORY: Moderate persistent asthma without complication Technique: Spiral CT acquisition of the chest from the thoracic inlet to the upper abdomen without contrast. MQ: CTCWO_6 CT Radiation dose: Integrated Dose-length product (DLP) for this visit = 363 mGy*cm CT Dose Reduction Employed: Automated exposure control (AEC) Comparison: CXR 02/26/2023 RESULT: Limitations: None. Lines, tubes, and devices: None. Lung parenchyma and airways: There are bilateral pulmonary nodules (greater than 10), several of which demonstrate tiny surrounding nodules and peribronchial/perilymphat ic studding which are nonspecific but can be seen in granulomatous processes. Donor Relations Coordinator nodules include, * 8 mm peripheral right upper lobe nodule (301:77) with surrounding tiny nodules. * 10 mm peripheral left lower lobe nodule (301:156) with peribronchial/perilymphat ic studding * 10 mm anterior right middle lobe nodule (301:23). Several additional smaller pulmonary nodules bilaterally. No confluent airspace consolidation. The central airways are patent. Pleural space: No pleural effusion. No pleural thickening. Lower neck, lymph nodes, and mediastinum: Visualized thyroid is unremarkable. Mild mediastinal and suspected right hilar lymphadenopathy (precise measurement of right hilar nodes precluded without IV contrast). For example, 1.4 cm right lower paratracheal node (2:69) and 1.3 similar subcarinal node (2:101). Triangular soft tissue in the anterior mediastinum with interspersed fat compatible with residual thymus. Heart, pericardium, and thoracic vessels: The thoracic aorta and main pulmonary artery are normal in caliber. The cardiac chambers are normal in size. No coronary atherosclerosis. No pericardial effusion or thickening. Bones and soft tissues: No destructive bone lesion. Ovoid 2.3 x 1.4 cm mass in the medial left breast (2:66) Upper abdomen: Cholecystectomy. No acute finding the upper abdomen. Cap Coverer (topogram) images: No additional findings. IMPRESSION: Bilateral indeterminate pulmonary nodules. Several of the larger nodules demonstrate tiny surrounding nodules/perilymphatic studding, which is nonspecific but can be seen in the setting of granulomatous processes (i.e. histoplasmosis, sarcoidosis, etc). Mild lower mediastinal and right hilar lymphadenopathy, likely related to similar process. A follow-up chest CT in 3 months is suggested. Incidental ovoid 2.3 cm left breast mass, statistically likely benign such as cyst or fibroadenoma. [facility] for further characterization. ACTIONABLE RESULT: FOLLOW-UP Acuity: Actionable Findings: Thoracic-Lung nodules Routing code: RI_[id number] Recommendation: CT Chest WO IVCON Time Frame: Additional evaluation as described in the impression COMMUNICATION: Results will be communicated with the ordering provider via [employer] staff message or phone message by [facility] within 2 business days of report finalization. --END OF FINDING-- Ingot Header: ADALB Transcribe Date/Time: Apr 16 2023 8:40A Dictated by : AUDELIA GAINES MD This examination was interpreted and the report reviewed and electronically signed by: AUDELIA GAINES MD on Apr 16 2023 9:04AM EST [id number] ACTIONABLE Invalid Interpretation Code [facility] [employer] GROUPon 11-15-2 023 Chicken feather IgE Qn (S) <0.35 Normal <0.35 [facility] Comment on above: Order Comment: Ronnie alonzo Type: BLOOD SPECIMEN Ordering Facility: [facility] Address: [address] [place] [address] Performed By: #### A NIMLS #### [facility] CLIA [id number] [address] [place] [address] [id number] [address] [place] Chicken feather IgE RAST class (S) Class 0 Normal Class 0 [facility] Comment on above: Order Comment: Ronnie alonzo Type: BLOOD SPECIMEN Ordering Facility: [facility] Address: [address] [place] [address] Performed By: #### A NIMLS #### [facility] CLIA [id number] [address] [place] [address] [place] Cow epithelium IgE Qn (S) <0.35 Normal <0.35 [facility] Comment on above: Order Comment: Speci men Type: BLOOD SPECIMEN Ordering Facility: [facility] Address: [address] [place] [address] Performed By: #### A NIMLS #### [facility] CLIA [id number] [address] [place] [address] [place] Cow epithelium IgE RAST class (S) Class 0 Normal Class 0 [facility] Comment on above: Order Comment: Speci men Type: BLOOD SPECIMEN Ordering Facility: [facility] Address: [address] [place] [address] Performed By: #### A NIMLS #### [facility] CLIA [id number] [address] [place] [address] [place] Goose feather IgE Qn (S) <0.35 Normal <0.35 [facility] Comment on above: Order Comment: Speci men Type: BLOOD SPECIMEN Ordering Facility: [facility] Address: [address] [place] [address] Performed By: #### A NIMLS #### [facility] CLIA [id number] [address] [place] [address] [place] Goose feather IgE RAST class (S) Class 0 Normal Class 0 [facility] Comment on above: Order Comment: Speci men Type: BLOOD SPECIMEN Ordering Facility: [facility] Address: [address] [place] [address] Performed By: #### A NIMLS #### [facility] CLIA [id number] [address] [place] [address] [place] Horse dander IgE Qn (S) <0.35 Normal <0.35 [facility] Comment on above: Order Comment: Speci men Type: BLOOD SPECIMEN Ordering Facility: [facility] Address: [address] [place] [address] Performed By: #### A NIMLS #### [facility] CLIA [id number] [address] [place] [address] [place] Horse dander IgE RAST class (S) Class 0 Normal Class 0 [facility] Comment on above: Order Comment: Speci men Type: BLOOD SPECIMEN Ordering Facility: [facility] Address: [address] [place] [address] Performed By: #### A NIMLS #### [facility] CLIA [id number] [address] [place] [address] [place] ALGN INHALANTS GROUPon 04-04 [place] house dust mite IgE Qn (S) <0.35 Normal <0.35 [facility] Comment on above: Order Comment: Speci men Type: BLOOD SPECIMEN Ordering Facility: [facility] Address: [address] [place] [address] Performed By: #### I NHALE #### [facility] CLIA [id number] [facility] [place] [address] [place] Bolivian house dust mite IgE RAST class (S) Class 0 Normal Class 0 [facility] Comment on above: Order Comment: Speci men Type: BLOOD SPECIMEN Ordering Facility: [facility] Address: [address] [place] [address] Performed By: #### I NHALE #### [facility] CLIA [id number] [address] [place] [address] [place] Boxelder IgE Qn (S) <0.35 Normal <0.35 [facility] Comment on above: Order Comment: Speci men Type: BLOOD SPECIMEN Ordering Facility: [facility] Address: [address] [place] [address] Performed By: #### I NHALE #### [facility] CLIA [id number] [address] [place] [address] [place] Boxelder IgE RAST class (S) Class 0 Normal Class 0 [facility] Comment on above: Order Comment: Speci men Type: BLOOD SPECIMEN Ordering Facility: [facility] Address: [address] [place] [address] Performed By: #### I NHALE #### [facility] CLIA [id number] [address] [place] [address] [place] Cat dander IgE Qn (S) <0.35 Normal <0.35 [facility] Comment on above: Order Comment: Speci men Type: BLOOD SPECIMEN Ordering Facility: [facility] Address: [address] [place] [address] Performed By: #### I NHALE #### [facility] CLIA [id number] [address] [place] Cat dander IgE RAST class (S) Class 0 Normal Class 0 [facility] Comment on above: Order Comment: Speci men Type: BLOOD SPECIMEN Ordering Facility: [facility] Address: [address] [place] [address] Performed By: #### I NHALE #### [facility] CLIA [id number] [address] [place] Common Ragweed IgE Qn (S) <0.35 Normal <0.35 [facility] Comment on above: Order Comment: Speci men Type: BLOOD SPECIMEN Ordering Facility: [facility] Address: [address] [place] [address] Performed By: #### I NHALE #### [facility] CLIA [id number] [address] [place] Common Ragweed IgE RAST class (S) Class 0 Normal Class 0 [facility] Comment on above: Order Comment: Speci men Type: BLOOD SPECIMEN Ordering Facility: [facility] Address: [address] [place] [address] Performed By: #### I NHALE #### [facility] CLIA [id number] [address] [place] [address] [place] Dog dander IgE Qn (S) <0.35 Normal <0.35 [facility] Comment on above: Order Comment: Speci men Type: BLOOD SPECIMEN Ordering Facility: [facility] Address: [address] [place] [address] Performed By: #### I NHALE #### [facility] CLIA [id number] [address] [place] [address] [place] Dog dander IgE RAST class (S) Class 0 Normal Class 0 [facility] Comment on above: Order Comment: Speci men Type: BLOOD SPECIMEN Ordering Facility: [facility] Address: [address] [place] [address] Performed By: #### I NHALE #### [facility] CLIA [id number] [address] [place] Gabonese plantain IgE Qn (S) <0.35 Normal <0.35 [facility] Comment on above: Order Comment: Speci men Type: BLOOD SPECIMEN Ordering Facility: [facility] Address: [address] [place] [address] Performed By: #### I NHALE #### [facility] CLIA [id number] [address] [place] Gabonese plantain IgE RAST class (S) Class 0 Normal Class 0 [facility] Comment on above: Order Comment: Speci men Type: BLOOD SPECIMEN Ordering Facility: [facility] Address: [address] [place] [address] Performed By: #### I NHALE #### [facility] CLIA [id number] [address] [place] Goosefoot IgE Qn (S) <0.35 Normal <0.35 [facility] Comment on above: Order Comment: Speci men Type: BLOOD SPECIMEN Ordering Facility: [facility] Address: [address] [place] [address] Performed By: #### I NHALE #### [facility] CLIA [id number] [address] [place] [address] [place] Goosefoot IgE RAST class (S) Class 0 Normal Class 0 [facility] Comment on above: Order Comment: Speci men Type: BLOOD SPECIMEN Ordering Facility: [facility] Address: [address] [place] [address] Performed By: #### I NHALE #### [facility] CLIA [id number] [address] [facility] [address] [place] House dust Negar Kimberley IgE Qn (S) <0.35 Normal <0.35 [facility] Comment on above: Order Comment: Speci men Type: BLOOD SPECIMEN Ordering Facility: [facility] Address: [address] [place] [address] Performed By: #### I NHALE #### [facility] CLIA [id number] [address] [place] House dust IgE RAST class (S) Class 0 Normal Class 0 [facility] Comment on above: Order Comment: Speci men Type: BLOOD SPECIMEN Ordering Facility: [facility] Address: [address] [place] [address] Performed By: #### I NHALE #### [facility] CLIA [id number] [address] [place] blue grass IgE Qn (S) <0.35 Normal <0.35 [facility] Comment on above: Order Comment: Speci men Type: BLOOD SPECIMEN Ordering Facility: [facility] Address: [address] [place] [address] Performed By: #### I NHALE #### [facility] CLIA [id number] [address] [place] blue grass IgE RAST class (S) Class 0 Normal Class 0 [facility] Comment on above: Order Comment: Speci men Type: BLOOD SPECIMEN Ordering Facility: [facility] Address: [address] [place] [address] Performed By: #### I NHALE #### [facility] CLIA [id number] [address] [place] [address] [facility] [place] P. notatum IgE Qn (S) <0.35 Normal <0.35 [facility] Comment on above: Order Comment: Speci men Type: BLOOD SPECIMEN Ordering Facility: [facility] Address: [address] [place] [address] Performed By: #### I NHALE #### [facility] CLIA [id number] [address] [place] P. notatum IgE RAST class (S) Class 0 Normal Class 0 [facility] Comment on above: Order Comment: Speci men Type: BLOOD SPECIMEN Ordering Facility: [facility] Address: [address] [place] [address] Performed By: #### I NHALE #### [facility] CLIA [id number] [address] [place] Yasmeen IgE Qn (S) <0.35 Normal <0.35 [facility] Comment on above: Order Comment: Speci men Type: BLOOD SPECIMEN Ordering Facility: [facility] Address: [address] [place] [address] Performed By: #### I NHALE #### [facility] CLIA [id number] [address] [place] Yasmeen IgE RAST class (S) Class 0 Normal Class 0 [facility] Comment on above: Order Comment: Speci men Type: BLOOD SPECIMEN Ordering Facility: [facility] Address: [address] [place] [address] Performed By: #### I NHALE #### [facility] CLIA [id number] [address] [place] [address] [place] Glen Gardner IgE Qn (S) <0.35 Normal <0.35 [facility] Comment on above: Order Comment: Speci men Type: BLOOD SPECIMEN Ordering Facility: [facility] Address: [address] [place] [address] Performed By: #### I NHALE #### [facility] CLIA [id number] [address] [place] [address] [place] IgE RAST class (S) Class 0 Normal Class 0 [facility] Comment on above: Order Comment: Speci men Type: BLOOD SPECIMEN Ordering Facility: [facility] Address: [address] [place] [address] Performed By: #### I NHALE #### [facility] CLIA [id number] [facility] [place] [address] [place] ALGN MOLDS GROUPon 3 A. alternata IgE Qn (S) <0.35 Normal <0.35 [facility] Comment on above: Order Comment: Speci men Type: BLOOD SPECIMEN Ordering Facility: [facility] Address: [address] [place] [address] Performed By: #### Sukhjinder VIEIRA #### [facility] CLIA [id number] [address] [place] [address] [place] Performed By: #### I NHALE #### [facility] CLIA [id number] [address] [place] [address] [place] A. alternata IgE RAST class (S) Class 0 Normal Class 0 [facility] Comment on above: Order Comment: Speci men Type: BLOOD SPECIMEN Ordering Facility: [facility] Address: [address] [place] [address] Performed By: #### Sukhjinder VIEIRA #### [facility] CLIA [id number] [facility] [place] [address] [place] Performed By: #### I NHALE #### [facility] CLIA [id number] [address] [place] [address] [place] A. fumigatus IgE Qn (S) <0.35 Normal <0.35 [facility] Comment on above: Order Comment: Speci men Type: BLOOD SPECIMEN Ordering Facility: [facility] Address: [address] [place] [address] Performed By: #### Sukhjinder VIEIRA #### [facility] CLIA [id number] [address] [place] [address] [place] Performed By: #### I CAMILLEALE #### [facility] CLIA [id number] [address] [place] [address] [place] Performed By: #### 1 9113-0, 6025-1 #### [facility] CLIA [id number] [address] [place] [address] [place] A. fumigatus IgE RAST class (S) Class 0 Normal Class 0 [facility] Comment on above: Order Comment: Speci men Type: BLOOD SPECIMEN Ordering Facility: [facility] Address: [address] [place] [address] Performed By: #### Sukhjinder VIEIRA #### [facility] CLIA [id number] [address] [place] [address] [place] Performed By: #### I NHALE #### [facility] CLIA [id number] [address] [place] Performed By: #### 1 9113-0, 6025-1 #### [facility] CLIA [id number] [address] [place] [address] [place] C. albicans IgE Qn (S) <0.35 Normal <0.35 [facility] Comment on above: Order Comment: Speci men Type: BLOOD SPECIMEN Ordering Facility: [facility] Address: [address] [place] [address] Performed By: #### M ISHA #### [facility] CLIA [id number] [address] [place] C. albicans IgE RAST class (S) Class 0 Normal Class 0 [facility] Comment on above: Order Comment: Speci men Type: BLOOD SPECIMEN Ordering Facility: [facility] Address: [address] [place] [address] Performed By: #### M ISHA #### [facility] CLIA [id number] [address] [place] C. herbarum IgE Qn (S) <0.35 Normal <0.35 [facility] Comment on above: Order Comment: Speci men Type: BLOOD SPECIMEN Ordering Facility: [facility] Address: [address] [place] [address] Performed By: #### M ISHA #### [facility] CLIA [id number] [address] [place] Performed By: #### I ELAINA #### [facility] CLIA [id number] [address] [place] [address] [place] C. herbarum IgE RAST class (S) Class 0 Normal Class 0 [facility] Comment on above: Order Comment: Speci men Type: BLOOD SPECIMEN Ordering Facility: [facility] Address: [address] [place] [address] Performed By: #### M ISHA #### [facility] CLIA [id number] [address] [place] Performed By: #### I CAMILLEALE #### [facility] CLIA [id number] [address] [place] [address] [place] Mucor racemosus IgE Qn (S) <0.35 Normal <0.35 [facility] Comment on above: Order Comment: Speci men Type: BLOOD SPECIMEN Ordering Facility: [facility] Address: [address] [place] [address] Performed By: #### M ISHA #### [facility] CLIA [id number] [address] [place] [address] [place] Mucor racemosus IgE RAST class (S) Class 0 Normal Class 0 [facility] Comment on above: Order Comment: Speci men Type: BLOOD SPECIMEN Ordering Facility: [facility] Address: [address] [place] [address] Performed By: #### M OLDS #### [facility] CLIA [id number] [address] [place], [place] [address] [address] [place] IgE SerPl-aCncon 04-04-2023 IgE Qn 25.8 kU/l Normal <114.0 [facility] Comment on above: Order Comment: Speci men Type: BLOOD SPECIMEN Ordering Facility: [facility] Address: [address] [place] [address] Performed By: #### 1 9113-0, 6025-1 #### [facility] CLIA [id number] [address] [place] [address] [place] XR CHEST 2 VIEWSon 3 XR CHEST 2 VIEWS ORIGINAL HISTORY: Cough COMPARISON: 28 February 2023 FINDINGS: The lungs are clear. The cardiac silhouette is normal to mildly enlarged. The pulmonary vasculature is unremarkable in appearance. IMPRESSION: Clear lungs Interpreted by: Jake Lane MD Preliminary Report By: Jake Lane MD Electronically signed By Jake Lane MD Dictated Date: 04/01/2023 12:58:47 PM Prelim Date: 04/01/2023 12:59:16 PM Sign Date: 04/01/2023 12:59:16 PM Ordering Provider: [facility] ([place]) Basophil percentageOrdered B y: Rehan Clifton on 03-09-2023 Basophil percentage >100 [facility] Ql (U)O rdered By: Rehan Clifton on 03-09-2023 Bilirubin Ql (U) Negative Negative [facility] Culture, urineOrdered By: Patience Camp on 03-09-2023 Bacteria identified Cx Nom (U) Positive [facility] Ketones Test strip Ql (U)Ord ered By: Rehan Clifton on 03-09-2023 Ketones Ql (U) Negative Negative [facility] Laboratory - Chemistry and C hemistry - challengeon 03-09-2023 HCG ( test) Ql (U) Negative [facility] Bilirubin Ql (U) Negative [facility] Glucose Ql (U) Negative [facility] Ketones Ql (U) Negative [facility] pH (U) 7.5 [pH] [facility] Specific gravity (U) [Rel density] 1.010 [facility] Urobilinogen (U) [Mass/Vol] 0.4484846 mg/dL [facility] Laboratory - Hematology and Cell countson 03-09-2023 Hemoglobin Ql (U) Hemolyzed [facility] Laboratory - Specimen inform ationon 03-09-2023 Clarity (U) Hazy [facility] Color (U) Yellow [facility] Laboratory - Urinalysison Nitrite Ql (U) Negative [facility] Protein Ql (U) 1+ [facility] Mucus LM Ql (Urine sed)Order ed By: Rehan Clifton on 03-09-2023 Mucus Ql (Urine sed) 0 SEEN /hpf [facility] Nitrite Test strip Ql (U)Ord ered By: Rehan Clifton on 03-09-2023 Nitrite Ql (U) Negative Negative [facility] No Panel Informationon 03-09 Urine Leukocytes Negatve [facility] Urine Non-Hemolyzed Blood Large [facility] Protein Test strip Ql (U)Ord ered By: Rehan Clifton on 03-09-2023 Protein Ql (U) 15 mg/dl Negative [facility] Squamous epithelial cells de tection in urine sediment by light microscopyOrdered By: Rehan Clifton on 03-09-2023 Epithelial cells.squamous LM Ql (Urine sed) 0 SEEN /hpf 5-10 [facility] Urine blood detectionOrdered By: Rehan Clifton on 03-09-2023 RBC Ql (U) 250 /ul Negative [facility] RBC Ql (U) 10-25 SEEN /hpf 0-5 [facility] Urine clarityOrdered By: Keegan Clifton on 03-09-2023 Clarity (U) Sl. Cloudy Clear [facility] Urine color determinationOrd ered By: Rehan Clifton on 03-09-2023 Color (U) Yellow Yellow [facility] Urine glucose detectionOrder ed By: Rehan Clifton on 03-09-2023 Glucose Ql (U) Normal mg/dl Normal [facility] Urine leukocyte esterase det ection by dipstickOrdered By: Rehan Clifton on 03-09-2023 Leukocyte esterase Test strip Ql (U) 500 /ul Negative [facility] Urine pHOrdered By: Rehan damian on 03-09-2023 pH (U) 6.0 [pH] 5.0 - 8.0 [facility] Urine sediment bacteria coun t by microscopy (number/high power field)Ordered By: Rehan Clifton on 03-09-2023 Bacteria LM.HPF (Urine sed) [#/Area] 1 /[HPF] None Seen [facility] Urine specific gravity measu rementOrdered By: Rehan Clifton on 03-09-2023 Specific gravity (U) [Rel density] 1.020 1.002-1.030 [facility] Urobilinogen Auto test strip Ql (U)Ordered By: Rehan Clifton on 03-09-2023 Urobilinogen Ql (U) Normal mg/dl Normal [facility] .Auto Diffon 03-05-2023 Basophil, Absolute 0.0 10 3/mcL Normal 0.0-0.2 [facility] ([place]) Comment on above: Performed By: #### G FR, CMP, VIDH, CBC, TSH, LIPID, ADIFF, ANEU, FT4 ####[address] [place], [place] [address] Basophils/100 WBC (Bld) 0.4 % Normal 0.0-2.5 [facility] ([place]) Comment on above: Performed By: #### G FR, CMP, VIDH, CBC, TSH, LIPID, ADIFF, ANEU, FT4 ####[address] [place], [place] [address] Eosinophil, Absolute 0.1 10 3/mcL Normal 0.0-0.4 [facility] ([place]) Comment on above: Performed By: #### G FR, CMP, VIDH, CBC, TSH, LIPID, ADIFF, ANEU, FT4 ####[address] [place], [place] [address] Eosinophils/100 WBC (Bld) 1.5 % Normal 0.0-7.0 [facility] ([place]) Comment on above: Performed By: #### G FR, CMP, VIDH, CBC, TSH, LIPID, ADIFF, ANEU, FT4 ####Linda [address] [place], [place] [address] Lymphocyte, Absolute 2.5 10 3/mcL Normal 0.8-3.9 [facility] ([place]) Comment on above: Performed By: #### G FR, CMP, VIDH, CBC, TSH, LIPID, ADIFF, ANEU, FT4 ####Linda [address] [place], [place] [address] Lymphocytes/100 WBC (Bld) 30.9 % Normal 10.0-50.0 [facility] ([place]) Comment on above: Performed By: #### G FR, CMP, VIDH, CBC, TSH, LIPID, ADIFF, ANEU, FT4 ####[address] [place], [place] [address] Monocyte, Absolute 0.7 10 3/mcL Normal 0.2-1.0 [facility] ([place]) Comment on above: Performed By: #### G FR, CMP, VIDH, CBC, TSH, LIPID, ADIFF, ANEU, FT4 ####Linda [address] [place], [place] [address] Monocytes/100 WBC (Bld) 8.5 % Normal 1.7-13.0 [facility] ([place]) Comment on above: Performed By: #### G FR, CMP, VIDH, CBC, TSH, LIPID, ADIFF, ANEU, FT4 ####[address] [place], [place] [address] Neutrophils/100 WBC (Bld) 58.7 % Normal 37.0-80.0 [facility] ([place]) Comment on above: Performed By: #### G FR, CMP, VIDH, CBC, TSH, LIPID, ADIFF, ANEU, FT4 ####[address] [place], [place] [address] .GFRon 03-05-2023 GFR 124 ml/min/1.73sqm Normal [facility] ([place]) Comment on above: Result Comment: GFR Population mean for , Non- Americans Ages 20-29 = 116 mL/min/1.73 sq.m. Ages 30-39 = 107 mL/min/1.73 sq.m. Ages 40-49 = 99 mL/min/1.73 sq.m. Ages 50-59 = 93 mL/min/1.73 sq.m. Ages 60-69 = 85 mL/min/1.73 sq.m. Ages 70+ = 75 mL/min/1.73 sq.m. Chronic Kidney Disease: Less than 60 mL/min/1.73 square meters End Stage Renal Disease: Less than 15 mL/min/1.73 square meters Performed By: #### G FR, CMP, VIDH, CBC, TSH, LIPID, ADIFF, ANEU, FT4 ####[address] [place], [place] [address] GFR Non- 102 ml/min/1.73sqm Normal [facility] ([place]) Comment on above: Result Comment: GFR Population mean for , Non- Americans Ages 20-29 = 116 mL/min/1.73 sq.m. Ages 30-39 = 107 mL/min/1.73 sq.m. Ages 40-49 = 99 mL/min/1.73 sq.m. Ages 50-59 = 93 mL/min/1.73 sq.m. Ages 60-69 = 85 mL/min/1.73 sq.m. Ages 70+ = 75 mL/min/1.73 sq.m. Chronic Kidney Disease: Less than 60 mL/min/1.73 square meters End Stage Renal Disease: Less than 15 mL/min/1.73 square meters Performed By: #### G FR, CMP, VIDH, CBC, TSH, LIPID, ADIFF, ANEU, FT4 ####[address] [place], [place] [address] .NEUABSon 03-05-2023 Neutrophil, Absolute 4.8 10 3/mcL Normal 2.9-6.2 [facility] ([place]) Comment on above: Performed By: #### G FR, CMP, VIDH, CBC, TSH, LIPID, ADIFF, ANEU, FT4 ####Linda [address] [place], [place] [address] CBCon 03-05-2023 Erythrocyte distribution width (RBC) [Ratio] 13.0 % Normal 11.5-14.5 [facility] ([place]) Comment on above: Performed By: #### G FR, CMP, VIDH, CBC, TSH, LIPID, ADIFF, ANEU, FT4 ####[address] [place], [place] [address] Hematocrit (Bld) [Volume fraction] 39.0 % Normal 37.0-47.0 [facility] ([place]) Comment on above: Performed By: #### G FR, CMP, VIDH, CBC, TSH, LIPID, ADIFF, ANEU, FT4 ####[address] [place], [place] [address] Hgb 12.9 G/dL Normal 12.0-16.0 [facility] ([place]) Comment on above: Performed By: #### G FR, CMP, VIDH, CBC, TSH, LIPID, ADIFF, ANEU, FT4 ####[address] [place], [place] [address] MCH (RBC) [Entitic mass] 28.9 pg Normal 27.0-31.2 [facility] ([place]) Comment on above: Performed By: #### G FR, CMP, VIDH, CBC, TSH, LIPID, ADIFF, ANEU, FT4 ####[address] [place], [place] [address] MCHC 33.1 G/dL Normal 33.0-37.0 [facility] ([place]) Comment on above: Performed By: #### G FR, CMP, VIDH, CBC, TSH, LIPID, ADIFF, ANEU, FT4 ####[address] [place], [place] [address] MCV (RBC) [Entitic vol] 87.3 fL Normal 80.0-94.0 [facility] ([place]) Comment on above: Performed By: #### G FR, CMP, VIDH, CBC, TSH, LIPID, ADIFF, ANEU, FT4 ####[address] [place], [place] [address] Platelet 265 10 3/mcL Normal 130-400 [facility] ([place] Comment on above: Performed By: #### G FR, CMP, VIDH, CBC, TSH, LIPID, ADIFF, ANEU, FT4 ####Linda [address] [place], [place] [address] Platelet mean volume (Bld) [Entitic vol] 8.5 fL Normal 7.4-10.4 [facility] ([place]) Comment on above: Performed By: #### G FR, CMP, VIDH, CBC, TSH, LIPID, ADIFF, ANEU, FT4 ####Linda [address] [place], [place] [address] RBC 4.46 10 6/mcL Normal 4.20-5.40 [facility] ([place]) Comment on above: Performed By: #### G FR, CMP, VIDH, CBC, TSH, LIPID, ADIFF, ANEU, FT4 ####Linda [address] [place], [place] [address] WBC 8.1 10 3/mcL Normal 4.6-10.8 [facility] ([place]) Comment on above: Performed By: #### G FR, CMP, VIDH, CBC, TSH, LIPID, ADIFF, ANEU, FT4 ####Linda [address] [place], [place] [address] CMPon 03-05-2023 Albumin Level 3.8 G/dL Normal 3.5-5.0 [facility] ([place]) Comment on above: Performed By: #### G FR, CMP, VIDH, CBC, TSH, LIPID, ADIFF, ANEU, FT4 ####Linda [address] [place], [place] [address] Albumin/Globulin [Mass ratio] 1.1 {ratio} Normal 1.1-2.5 [facility] ([place]) Comment on above: Performed By: #### G FR, CMP, VIDH, CBC, TSH, LIPID, ADIFF, ANEU, FT4 ####Linda [address] [place], [place] [address] ALP [Catalytic activity/Vol] 87 U/L Normal 40-135 [facility] ([place]) Comment on above: Performed By: #### G FR, CMP, VIDH, CBC, TSH, LIPID, ADIFF, ANEU, FT4 ####Linda [address] [place], [place] [address] ALT [Catalytic activity/Vol] 24 U/L Normal 14-59 [facility] ([place]) Comment on above: Performed By: #### G FR, CMP, VIDH, CBC, TSH, LIPID, ADIFF, ANEU, FT4 ####Linda [address] [place], [place] [address] AST [Catalytic activity/Vol] 16 U/L Normal 10-40 [facility] ([place]) Comment on above: Performed By: #### G FR, CMP, VIDH, CBC, TSH, LIPID, ADIFF, ANEU, FT4 ####Linda [address] [place], [place] [address] Bili Total 0.2 mg/dL Normal 0.2-1.0 [facility] ([place]) Comment on above: Result Comment: Use of this assay is not recommended for patients undergoing treatment with eltrombopag due to the potential for falsely elevated results. Performed By: #### G FR, CMP, VIDH, CBC, TSH, LIPID, ADIFF, ANEU, FT4 ####Linda [address] [place], [place] [address] BUN/Creatinine Ratio 20 ratio Normal 7-27 [facility] ([place]) Comment on above: Performed By: #### G FR, CMP, VIDH, CBC, TSH, LIPID, ADIFF, ANEU, FT4 ####Linda [address] [place], [place] [address] Calcium [Mass/Vol] 9.0 mg/dL Normal 8.4-10.2 [facility] ([place]) Comment on above: Performed By: #### G FR, CMP, VIDH, CBC, TSH, LIPID, ADIFF, ANEU, FT4 ####Linda [address] [place], [place] [address] Chloride [Moles/Vol] 102 mmol/L Normal 98-107 [facility] ([place]) Comment on above: Performed By: #### G FR, CMP, VIDH, CBC, TSH, LIPID, ADIFF, ANEU, FT4 ####Linda [address] [place], [place] [address] CO2 [Moles/Vol] 28 mmol/L Normal 22-29 [facility] ([place]) Comment on above: Performed By: #### G FR, CMP, VIDH, CBC, TSH, LIPID, ADIFF, ANEU, FT4 ####[address]inda [address] [place], [place] [address] Creatinine [Mass/Vol] 0.71 mg/dL Normal 0.55-1.02 [facility] ([place]) Comment on above: Performed By: #### G FR, CMP, VIDH, CBC, TSH, LIPID, ADIFF, ANEU, FT4 ####Linda [address] [place], [place] [address] Electrolyte Balance 11.0 mEq/L Normal 4.0-15.0 [facility] ([place]) Comment on above: Performed By: #### G FR, CMP, VIDH, CBC, TSH, LIPID, ADIFF, ANEU, FT4 ####Linda [address] [place], [place] [address] Globulin 3.6 G/dL Normal [facility] ([place]) Comment on above: Performed By: #### G FR, CMP, VIDH, CBC, TSH, LIPID, ADIFF, ANEU, FT4 ####Linda [address] [place], [place] [address] Glucose [Mass/Vol] 95 mg/dL Normal 70-105 [facility] ([place]) Comment on above: Performed By: #### G FR, CMP, VIDH, CBC, TSH, LIPID, ADIFF, ANEU, FT4 ####Linda [address] [place], [place] [address] Potassium [Moles/Vol] 4.3 mmol/L Normal 3.5-5.1 [facility] ([place]) Comment on above: Performed By: #### G FR, CMP, VIDH, CBC, TSH, LIPID, ADIFF, ANEU, FT4 ####Linda [address] [place], [place] [address] Sodium [Moles/Vol] 141 mmol/L Normal 136-145 [facility] ([place]) Comment on above: Performed By: #### G FR, CMP, VIDH, CBC, TSH, LIPID, ADIFF, ANEU, FT4 ####Linda [address] [place], [place] [address] Total Protein 7.4 G/dL Normal 6.4-8.2 [facility] ([place] Comment on above: Performed By: #### G FR, CMP, VIDH, CBC, TSH, LIPID, ADIFF, ANEU, FT4 ####Linda [address] [place], [place] [address] Urea nitrogen [Mass/Vol] 14 mg/dL Normal 7-18 [facility] ([place] Comment on above: Performed By: #### G FR, CMP, VIDH, CBC, TSH, LIPID, ADIFF, ANEU, FT4 ####Linda [address] [place], [place] [address] FT4on 03-05-2023 Free T4 [Mass/Vol] 0.90 ng/dL Normal 0.76-1.46 [facility] ([place]) Comment on above: Performed By: #### G FR, CMP, VIDH, CBC, TSH, LIPID, ADIFF, ANEU, FT4 ####Linda [address] [place], [place] [address] LABORATORYOrdered By: SYSTEM SYSTEM on 03-05-2023 25-hydroxyvitamin D3 [Mass/Vol] 12.9 ng/mL Invalid Interpretation Code AO ADM SS Comment on above: Interpretive Data: I nterpretive Values Based on Total 25(OH) Vitamin D: Deficient <20 ng/mL Insufficient 20 - <30 ng/mL Sufficient 30-100 ng/mL Albumin BCP dye [Mass/Vol] 3.8 G/dL Invalid Interpretation Code 3.5 - 5.0 G/dL AO ADM SS Albumin/Globulin [Mass ratio] 1.1 {ratio} Invalid Interpretation Code 1.1 - 2.5 ratio AO ADM SS ALP [Catalytic activity/Vol] 87 U/L Invalid Interpretation Code 40 - 135 U/L AO ADM SS ALT With P-5'-P [Catalytic activity/Vol] 24 U/L Invalid Interpretation Code 14 - 59 U/L AO ADM SS AST With P-5'-P [Catalytic activity/Vol] 16 U/L Invalid Interpretation Code 10 - 40 U/L AO ADM SS Basophil, Absolute 0.0 103/mcL Invalid Interpretation Code 0.0 - 0.2 10^3/mcL AO Workflow SS Basophils/100 WBC (Bld) 0.4 % Invalid Interpretation Code 0.0 - 2.5 % AO Workflow SS Bilirubin [Mass/Vol] 0.2 mg/dL Invalid Interpretation Code 0.2 - 1.0 mg/dL AO ADM SS Comment on above: Interpretive Data: U se of this assay is not recommended for patients undergoing treatment with eltrombopag due to the potential for falsely elevated results. Calcium [Mass/Vol] 9.0 mg/dL Invalid Interpretation Code 8.4 - 10.2 mg/dL AO ADM SS Chloride [Moles/Vol] 102 mmol/L Invalid Interpretation Code 98 - 107 mmol/L AO ADM SS CO2 [Moles/Vol] 28 mmol/L Invalid Interpretation Code 22 - 29 mmol/L AO ADM SS Creatinine [Mass/Vol] 0.71 mg/dL Invalid Interpretation Code 0.55 - 1.02 mg/dL AO ADM SS Electrolyte Balance 11.0 mEq/L Invalid Interpretation Code 4.0 - 15.0 mEq/L AO ADM SS Eosinophil, Absolute 0.1 103/mcL Invalid Interpretation Code 0.0 - 0.4 10^3/mcL AO Workflow SS Eosinophils/100 WBC (Bld) 1.5 % Invalid Interpretation Code 0.0 - 7.0 % AO Workflow SS Erythrocyte distribution width (RBC) [Ratio] 13.0 % Invalid Interpretation Code 11.5 - 14.5 % AO Workflow SS Free T4 [Mass/Vol] 0.90 ng/dL Invalid Interpretation Code 0.76 - 1.46 ng/dL AO ADM SS GFR/1.73 sq M.predicted among blacks MDRD (S/P/Bld) [Vol rate/Area] 124 ml/min/1.73sqm Invalid Interpretation Code AO Chemistry S Comment on above: Interpretive Data: GFR Population mean for , Non- Americans Ages 20-29 = 116 mL/min/1.73 sq.m. Ages 30-39 = 107 mL/min/1.73 sq.m. Ages 40-49 = 99 mL/min/1.73 sq.m. Ages 50-59 = 93 mL/min/1.73 sq.m. Ages 60-69 = 85 mL/min/1.73 sq.m. Ages 70+ = 75 mL/min/1.73 sq.m. Chronic Kidney Disease: Less than 60 mL/min/1.73 square meters End Stage Renal Disease: Less than 15 mL/min/1.73 square meters GFR/1.73 sq M.predicted among non-blacks MDRD (S/P/Bld) [Vol rate/Area] 102 ml/min/1.73sqm Invalid Interpretation Code AO Chemistry S Comment on above: Interpretive Data: GFR Population mean for , Non- Americans Ages 20-29 = 116 mL/min/1.73 sq.m. Ages 30-39 = 107 mL/min/1.73 sq.m. Ages 40-49 = 99 mL/min/1.73 sq.m. Ages 50-59 = 93 mL/min/1.73 sq.m. Ages 60-69 = 85 mL/min/1.73 sq.m. Ages 70+ = 75 mL/min/1.73 sq.m. Chronic Kidney Disease: Less than 60 mL/min/1.73 square meters End Stage Renal Disease: Less than 15 mL/min/1.73 square meters Globulin 3.6 G/dL Invalid Interpretation Code AO ADM SS Glucose [Mass/Vol] 95 mg/dL Invalid Interpretation Code 70 - 105 mg/dL AO ADM SS Hematocrit (Bld) [Volume fraction] 39.0 % Invalid Interpretation Code 37.0 - 47.0 % AO Workflow SS Hemoglobin (Bld) [Mass/Vol] 12.9 G/dL Invalid Interpretation Code 12.0 - 16.0 G/dL AO Workflow SS Lymphocyte, Absolute 2.5 103/mcL Invalid Interpretation Code 0.8 - 3.9 10^3/mcL AO Workflow SS Lymphocytes/100 WBC (Bld) 30.9 % Invalid Interpretation Code 10.0 - 50.0 % AO Workflow SS MCH (RBC) [Entitic mass] 28.9 pg Invalid Interpretation Code 27.0 - 31.2 pg AO Workflow SS MCHC 33.1 G/dL Invalid Interpretation Code 33.0 - 37.0 G/dL AO Workflow SS MCV (RBC) [Entitic vol] 87.3 fL Invalid Interpretation Code 80.0 - 94.0 fL AO Workflow SS Monocyte, Absolute 0.7 103/mcL Invalid Interpretation Code 0.2 - 1.0 10^3/mcL AO Workflow SS Monocytes/100 WBC (Bld) 8.5 % Invalid Interpretation Code 1.7 - 13.0 % AO Workflow SS Neutrophil, Absolute 4.8 103/mcL Invalid Interpretation Code 2.9 - 6.2 10^3/mcL AO Workflow SS Neutrophils/100 WBC (Bld) 58.7 % Invalid Interpretation Code 37.0 - 80.0 % AO Workflow SS Platelet mean volume (Bld) [Entitic vol] 8.5 fL Invalid Interpretation Code 7.4 - 10.4 fL AO Workflow SS Platelets (Bld) [#/Vol] 265 103/mcL Invalid Interpretation Code 130 - 400 10^3/mcL AO Workflow SS Potassium [Moles/Vol] 4.3 mmol/L Invalid Interpretation Code 3.5 - 5.1 mmol/L AO ADM SS Protein [Mass/Vol] 7.4 G/dL Invalid Interpretation Code 6.4 - 8.2 G/dL AO ADM SS RBC (Bld) [#/Vol] 4.46 106/mcL Invalid Interpretation Code 4.20 - 5.40 10^6/mcL AO Workflow SS Sodium [Moles/Vol] 141 mmol/L Invalid Interpretation Code 136 - 145 mmol/L AO ADM SS TSH Qn 2.12 m[IU]/L Invalid Interpretation Code 0.36 - 3.74 mcIU/mL AO ADM SS Urea nitrogen [Mass/Vol] 14 mg/dL Invalid Interpretation Code 7 - 18 mg/dL AO ADM SS Urea nitrogen/Creatinine [Mass ratio] 20 ratio Invalid Interpretation Code 7 - 27 ratio AO ADM SS WBC (Bld) [#/Vol] 8.1 103/mcL Invalid Interpretation Code 4.6 - 10.8 10^3/mcL AO Workflow SS LABORATORYOrdered By: Shannan Rowe on 03-05-2023 Cholesterol [Mass/Vol] 196 mg/dL Invalid Interpretation Code 0 - 200 mg/dL AO ADM SS Comment on above: Interpretive Data: C holesterol Reference Interval: Less than 200 Desirable 200-239 Borderline high risk 240 and above High risk Cholesterol in HDL [Mass/Vol] 48 mg/dL Invalid Interpretation Code 40 - 60 mg/dL AO ADM SS Cholesterol in LDL [Mass/Vol] 97 mg/dL Invalid Interpretation Code 0 - 130 mg/dL AO ADM SS Triglyceride [Mass/Vol] 255 mg/dL Invalid Interpretation Code 0 - 150 mg/dL AO ADM SS Comment on above: Interpretive Data: T riglyceride Reference Interval: Less than 150 Normal 150-199 Borderline high risk 200-499 High risk 500 or higher Very high risk LIPIDon 03-05-2023 Cholesterol [Mass/Vol] 196 mg/dL Normal 0-200 [facility] ([place]) Comment on above: Result Comment: Chol esterol Reference Interval: Less than 200 Desirable 200-239 Borderline high risk 240 and above High risk Performed By: #### G FR, CMP, VIDH, CBC, TSH, LIPID, ADIFF, ANEU, FT4 ####Linda [address] [place], [place] [address] Cholesterol in HDL [Mass/Vol] 48 mg/dL Normal 40-60 [facility] ([place]) Comment on above: Performed By: #### G FR, CMP, VIDH, CBC, TSH, LIPID, ADIFF, ANEU, FT4 ####Linda [address] [place], [place] [address] Cholesterol in LDL [Mass/Vol] 97 mg/dL Normal 0-130 [facility] ([place]) Comment on above: Performed By: #### G FR, CMP, VIDH, CBC, TSH, LIPID, ADIFF, ANEU, FT4 ####Linda [address] [place], [place] [address] Triglyceride [Mass/Vol] 255 mg/dL High 0-150 [facility] ([place]) Comment on above: Result Comment: Trig lyceride Reference Interval: Less than 150 Normal 150-199 Borderline high risk 200-499 High risk 500 or higher Very high risk Performed By: #### G FR, CMP, VIDH, CBC, TSH, LIPID, ADIFF, ANEU, FT4 ####Linda [address] [place], [place] [address] TSHon 03-05-2023 TSH Qn 2.12 m[IU]/L Normal 0.36-3.74 [facility] ([place]) Comment on above: Performed By: #### G FR, CMP, VIDH, CBC, TSH, LIPID, ADIFF, ANEU, FT4 ####Linda [address] [place], [place] [address] VIDHon 03-05-2023 Vit. D 25-Hydroxy 12.9 ng/mL Normal [facility] ([place]) Comment on above: Result Comment: Inte rpretive Values Based on Total 25([place]) Vitamin D: Deficient <20 ng/mL Insufficient 20 - <30 ng/mL Sufficient 30-100 ng/mL Performed By: #### G FR, CMP, VIDH, CBC, TSH, LIPID, ADIFF, ANEU, FT4 ####Linda [address] [place], [place] [address] XR CHEST 2 VIEWSon 3 XR CHEST 2 VIEWS ORIGINAL EXAMINATION: TWO XRAY VIEWS OF THE CHEST 02/28/2023 12:29 pm COMPARISON: None. HISTORY: ORDERING SYSTEM PROVIDED HISTORY: Reason for Exam: pneumonia FINDINGS: The cardiomediastinal contours are within normal limits. The lungs are clear bilaterally. There is no evidence of focal consolidation, pulmonary edema, pleural effusion or pneumothorax. There is no blunting of the costophrenic angles on the lateral view. Cholecystectomy clips noted overlying the right upper quadrant. IMPRESSION: No acute cardiopulmonary process. Interpreted by: Kenney James MD Preliminary Report By: Kenney James MD Electronically signed By Kenney James MD Dictated Date: 03/02/2023 9:59:44 AM Prelim Date: 03/02/2023 10:00:06 AM Sign Date: 03/02/2023 10:00:06 AM Ordering Provider: JACK PRIEST [facility]) [facility] 02-26-2023 [facility] HNO ID: [id number] Author: Romy Cao RT(R) Service: Radiology Author Type: Accounting Tutor Type: Allied Health Filed: 02/26/2023 8:51 PM Note Text: Radiology Service Progress Note PATIENT NAME: Matt Calabrese DATE OF SERVICE: February 26, 2023 TIME: 8:51 PM PATIENT IDENTITY VERIFICATION COMPLETED USING TWO (2) IDENTIFIERS: Name and Date of confirmed by patient verbally and Name and Date of confirmed by identification band. FALL SCREENING: Has the patient had 2 falls in the last year or 1 fall with injury or currently using an Ambulatory Assistive Device (Walker, Cane, Wheelchair, Crutches, etc.)? Emergency Room Patient: Screened in ED PATIENT GENDER DATA: Female. status: : No status: NO. PATIENT RELEVANT IMPLANT DATA REVIEWED: Not Applicable RADIOLOGY DEPARTMENT: General X-ray: Exam(s) Completed: Chest X-Ray PERIPHERAL IV DATA: Not applicable SIGNED BY: Romy Cao RT(R) February 26, 2023 8:51 PM Normal [facility] Basic metabolic 2000 panelon 02-26-2023 Anion gap [Moles/Vol] 12 mmol/L Normal 9-18 [facility] Comment on above: Order Comment: Speci men Type: BLOOD SPECIMEN Ordering Facility: [facility] Address: [address] [place] [address] Performed By: #### 2 4321-2 #### [facility] CLIA [id number] [address] [place] [address] [place] Calcium [Mass/Vol] 9.4 mg/dL Normal 8.5-10.2 [facility] Comment on above: Order Comment: Speci men Type: BLOOD SPECIMEN Ordering Facility: [facility] Address: [address] [place] [address] Performed By: #### 2 4321-2 #### [facility] CLIA [id number] [address] [place] [address] [place] Chloride [Moles/Vol] 103 mmol/L Normal 97-105 [facility] Comment on above: Order Comment: Speci men Type: BLOOD SPECIMEN Ordering Facility: [facility] Address: [address] [place] [address] Performed By: #### 2 4321-2 #### [facility] CLIA [id number] [address] [place] [address] [place] CO2 [Moles/Vol] 25 mmol/L Normal 22-30 [facility] Comment on above: Order Comment: Speci men Type: BLOOD SPECIMEN Ordering Facility: [facility] Address: [address] [place] [address] Performed By: #### 2 4321-2 #### [facility] CLIA [id number] [address] [place] [address] [place] Creatinine [Mass/Vol] 0.65 mg/dL Normal 0.58-0.96 [facility] Comment on above: Order Comment: Ronnie alonzo Type: BLOOD SPECIMEN Ordering Facility: [facility] Address: [address] [place] [address] Performed By: #### 2 4321-2 #### [facility] CLIA [id number] [address] [place] [address] [place] Creatinine and Glomerular filtration rate.predicted panel (S/P/Bld) 127 mL/min/1.73m??? Normal >=60 [facility] Comment on above: Order Comment: Ronnie alonzo Type: BLOOD SPECIMEN Ordering Facility: [facility] Address: [address] [place] [address] Result Comment: Edwige mated Glomerular Filtration Rate (eGFR) is calculated using the 2020 CKD-EPI creatinine equation. This equation utilizes serum creatinine, sex, and age as parameters. The creatinine assay has traceable calibration to isotope dilution-mass spectrometry. Refer to KDIGO guidelines for clinical interpretation. In patients with unstable renal function, e.g. those with acute kidney injury, the eGFR may not accurately reflect actual GFR. Performed By: #### 2 4321-2 #### [facility] CLIA [id number] [address] [place] [address] [place] Glucose [Mass/Vol] 99 mg/dL Normal 74-99 [facility] Comment on above: Order Comment: Ronnie alonzo Type: BLOOD SPECIMEN Ordering Facility: [facility] Address: [address] [place] [address] Result Comment: The [place] Diabetes Association (ADA) provides guidance for cutoff values for fasting glucose and random glucose. The ADA defines fasting as no caloric intake for at least 8 hours. Fasting plasma glucose results between 100 to 125 mg/dL indicate increased risk for diabetes (prediabetes). Fasting plasma glucose results greater than or equal to 126 mg/dL meet the criteria for diagnosis of diabetes. In the absence of unequivocal hyperglycemia, results should be confirmed by repeat testing. In a patient with classic symptoms of hyperglycemia or hyperglycemic crisis, random plasma glucose results greater than or equal to 200 mg/dL meet the criteria for diagnosis of diabetes. Reference: Standards of Medical Care in Diabetes 2016, [place] [employer] Association. Diabetes Care. 2016.39(Suppl 1). Performed By: #### 2 4321-2 #### [facility] CLIA [id number] [address] [place] [address] [place] Potassium [Moles/Vol] 3.8 mmol/L Normal 3.7-5.1 [facility] Comment on above: Order Comment: Speci men Type: BLOOD SPECIMEN Ordering Facility: [facility] Address: [address] [place] [address] Performed By: #### 2 4321-2 #### [facility] CLIA [id number] [address] [place], [place] [address] [place] [address] [place] Sodium [Moles/Vol] 140 mmol/L Normal 136-144 [facility] Comment on above: Order Comment: Speci men Type: BLOOD SPECIMEN Ordering Facility: [facility] Address: [address] [place] [address] Performed By: #### 2 4321-2 #### [facility] CLIA [id number] [address] [place] [address] [place] Urea nitrogen [Mass/Vol] 13 mg/dL Normal 7-21 [facility] Comment on above: Order Comment: Speci men Type: BLOOD SPECIMEN Ordering Facility: [facility] Address: [address] [place] [address] Performed By: #### 2 4321-2 #### [facility] CLIA [id number] [address] [place] [id number] [place] CBC W Auto Differential pane l (Bld)on 02-26-2023 Basophils (Bld) [#/Vol] 10*3/uL Normal <0.11 [facility] Comment on above: Order Comment: Speci men Type: BLOOD SPECIMEN Ordering Facility: [facility] Address: [address] [place] [address] Performed By: #### 5 7021-8 #### [facility] CLIA [id number] [address] [place] [address] [place] Basophils/100 WBC (Bld) 0.3 % Normal [facility] Comment on above: Order Comment: Speci men Type: BLOOD SPECIMEN Ordering Facility: [facility] Address: [address] [place] [address] Performed By: #### 5 7021-8 #### [facility] CLIA [id number] [address] [place] [address] [place] Differential cell count method Nom (Bld) Auto Normal [facility] Comment on above: Order Comment: Speci men Type: BLOOD SPECIMEN Ordering Facility: [facility] Address: [address] [place] [address] Performed By: #### 5 7021-8 #### [facility] CLIA [id number] [address] [place] [address] [place] Eosinophils (Bld) [#/Vol] 0.15 10*3/uL Normal <0.46 [facility] Comment on above: Order Comment: Speci men Type: BLOOD SPECIMEN Ordering Facility: [facility] Address: [address] [place] [address] Performed By: #### 5 7021-8 #### [facility] CLIA [id number] [address] [place] [id number] [facility] [place] Eosinophils/100 WBC (Bld) 2.1 % Normal [facility] Comment on above: Order Comment: Speci men Type: BLOOD SPECIMEN Ordering Facility: [facility] Address: [address] [place] [address] Performed By: #### 5 7021-8 #### [facility] CLIA [id number] [address] [place] Erythrocyte distribution width (RBC) [Ratio] 12.4 % Normal 11.5-15.0 [facility] Comment on above: Order Comment: Speci men Type: BLOOD SPECIMEN Ordering Facility: [facility] Address: [address] [place] [address] Performed By: #### 5 7021-8 #### [facility] CLIA [id number] [address] [place] [address] [place] Hematocrit (Bld) [Volume fraction] 40.4 % Normal 36.0-46.0 [facility] Comment on above: Order Comment: Speci men Type: BLOOD SPECIMEN Ordering Facility: [facility] Address: [address] [place] [address] Performed By: #### 5 7021-8 #### [facility] CLIA [id number] [address] [place] [address] [place] Hemoglobin (Bld) [Mass/Vol] 12.7 g/dL Normal 11.5-15.5 [facility] Comment on above: Order Comment: Speci men Type: BLOOD SPECIMEN Ordering Facility: [facility] Address: [address] [place] [address] Performed By: #### 5 7021-8 #### [facility] CLIA [id number] [address] [place] [address] [place] Immature granulocytes (Bld) [#/Vol] 10*3/uL Normal <0.10 [facility] Comment on above: Order Comment: Speci men Type: BLOOD SPECIMEN Ordering Facility: [facility] Address: [address] [place] [address] Performed By: #### 5 7021-8 #### [facility] CLIA [id number] [address] [place] [address] [place] Immature granulocytes/100 WBC (Bld) 0.1 % Normal [facility] Comment on above: Order Comment: Speci men Type: BLOOD SPECIMEN Ordering Facility: [facility] Address: [address] [place] [address] Performed By: #### 5 7021-8 #### [facility] CLIA [id number] [address] [place] [address] [place] Lymphocytes (Bld) [#/Vol] 2.83 10*3/uL Normal 1.00-4.00 [facility] Comment on above: Order Comment: Speci men Type: BLOOD SPECIMEN [facility] COMPANY Address: [address] [place] [address] Performed By: #### 5 7021-8 #### [facility] CLIA [id number] [address] [place] [address] [facility] Lymphocytes/100 WBC (Bld) 38.9 % Normal [facility] Comment on above: Order Comment: Speci men Type: BLOOD SPECIMEN Ordering Facility: [facility] Address: [address] [place] [address] Performed By: #### 5 7021-8 #### [facility] CLIA [id number] [address] [place] [address] [place] MCH (RBC) [Entitic mass] 28.9 pg Normal 26.0-34.0 [facility] Comment on above: Order Comment: Speci men Type: BLOOD SPECIMEN Ordering Facility: [facility] Address: [address] [place] [address] Performed By: #### 5 7021-8 #### [facility] CLIA [id number] [address] [place] [address] [facility] MCHC (RBC) [Mass/Vol] 31.4 g/dL Normal 30.5-36.0 [facility] Comment on above: Order Comment: Speci men Type: BLOOD SPECIMEN Ordering Facility: [facility] Address: [address] [place] [address] Performed By: #### 5 7021-8 #### [facility] CLIA [id number] [address] [place] [address] [place] MCV (RBC) [Entitic vol] 91.8 fL Normal 80.0-100.0 [facility] Comment on above: Order Comment: Speci men Type: BLOOD SPECIMEN Ordering Facility: [facility] Address: [address] [place] [address] Performed By: #### 5 7021-8 #### [facility] CLIA [id number] [address] [place] [address] [place] Monocytes (Bld) [#/Vol] 0.69 10*3/uL Normal <0.87 [facility] Comment on above: Order Comment: Speci men Type: BLOOD SPECIMEN Ordering Facility: [facility] Address: [address] [place] [address] Performed By: #### 5 7021-8 #### [facility] CLIA [id number] [address] [place] [address] [place] Monocytes/100 WBC (Bld) 9.5 % Normal [facility] Comment on above: Order Comment: Speci men Type: BLOOD SPECIMEN Ordering Facility: [facility] Address: [address] [place] [address] Performed By: #### 5 7021-8 #### [facility] CLIA [id number] [address] [place] [address] [place] Neutrophils (Bld) [#/Vol] 3.57 10*3/uL Normal 1.45-7.50 [facility] Comment on above: Order Comment: Speci men Type: BLOOD SPECIMEN Ordering Facility: [facility] Address: [address] [place] [address] Performed By: #### 5 7021-8 #### [facility] CLIA [id number] [address] [place], [place] [id number] [place] [address] [place] Neutrophils/100 WBC (Bld) 49.1 % Normal [facility] Comment on above: Order Comment: Speci men Type: BLOOD SPECIMEN Ordering Facility: [facility] Address: [address] [place] [address] Performed By: #### 5 7021-8 #### [facility] CLIA [id number] [address] [place] [address] [place] Nucleated RBC (Bld) [#/Vol] Normal [facility] Comment on above: Order Comment: Speci men Type: BLOOD SPECIMEN Ordering Facility: [facility] Address: [address] [place] [address] Performed By: #### 5 7021-8 #### [facility] CLIA [id number] [address] [place] [address] [place] Nucleated RBC/100 WBC (Bld) [Ratio] Normal [facility] Comment on above: Order Comment: Speci men Type: BLOOD SPECIMEN Ordering Facility: [facility] Address: [address] [place] [address] Performed By: #### 5 7021-8 #### [facility] CLIA [id number] [address] [place] [address] [place] Platelet mean volume (Bld) [Entitic vol] 10.3 fL Normal 9.0-12.7 [facility] Comment on above: Order Comment: Speci men Type: BLOOD SPECIMEN Ordering Facility: [facility] Address: [address] [place] [address] Performed By: #### 5 7021-8 #### [facility] CLIA [id number] [address] [place] [address] [place] Platelets (Bld) [#/Vol] 248 10*3/uL Normal 150-400 [facility] Comment on above: Order Comment: Speci men Type: BLOOD SPECIMEN Ordering Facility: [facility] Address: [address] [place] [address] Performed By: #### 5 7021-8 #### [facility] CLIA [id number] [address] [place] [address] [place] RBC (Bld) [#/Vol] 4.40 10*6/uL Normal 3.90-5.20 [facility] Comment on above: Order Comment: Speci men Type: BLOOD SPECIMEN Ordering Facility: [facility] Address: [address] [place] [address] Performed By: #### 5 7021-8 #### [facility] CLIA [id number] [address] [place] [address] [place] WBC (Bld) [#/Vol] 7.27 10*3/uL Normal 3.70-11.00 [facility] Comment on above: Order Comment: Speci men Type: BLOOD SPECIMEN Ordering Facility: [facility] Address: [address] [place], [place] [address] [id number] Performed By: #### 5 7021-8 #### [facility] IA [id number] [address] [place] [address] [facility] ECG COMPLETEon 02-26-2023 ECG COMPLETE Ventricular Rate : 8 7 BPM Atrial Rate : 87 BPM P-R Interval : 166 ms QRS Duration : 76 ms Q-T Interval : 366 ms QTC Calculation(Bazett) : 440 ms Calculated P Sterling : 21 degrees Calculated R Sterling : 38 degrees Calculated T Sterling : 29 degrees NORMAL SINUS RHYTHM NORMAL ECG NO PREVIOUS ECGS AVAILABLE Confirmed by MD SHELTON VINAYAK ([id number]) on 03/06/2023 11:17:30 PM NAME : MATT CALABRESE PID : [id number] : 2000 Gender : Female Race : ORD : [id number] Procedure Date : Feb 26 2023 20:23:52 Edit Date : Mar 06 2023 23:17:32 Diagnosis: NORMAL SINUS RHYTHM NORMAL ECG NO PREVIOUS ECGS AVAILABLE Confirmed by MD SHELTON VINAYAK ([id number]) on 03/06/2023 11:17:30 PM Test Reason : Shortness of Breath Location : 150 : [facility] Overread By : MD SHELTON VINAYAK Edited By : MD SHELTON VINAYAK Referred By : , Acquired by : SHARAN HERNANDEZ [facility] ED NOTEon 02-26-2023 ED NOTE HNO ID: [id number] Author: Eri Chowdary RN Service: ? Author Type: Registered Nurse Type: ED Notes Filed: 02/27/2023 9:57 AM Note Text: Patient Call Back Information How are you doing ? better Did we appropriately manage your pain? Yes Did you understand your discharge instructions? Yes Did you get your prescriptions filled? Yes Were you able to make a follow-up appointment with your physician? No Were you comfortable during your stay here? Yes Did a member of the ER nursing team round on you during your visit? Yes You will receive a patient satisfaction survey in the mail in the nest 2 weeks, please take the time to fill out the survey as your input from your ER visit is very important to us. Yes Can we do anything else to help you? No Normal [facility] ED NOTE HNO ID: [id number] Author: Julia Gannon, RN Service: Emergency Medicine Author Type: Registered Nurse Type: ED Notes Filed: 02/26/2023 9:44 PM Note Text: Reviewed dc orders with pt, scripts x 2 reviewed. Pt verbalized understanding. Denies any further needs. Ambulatory with steady gait for dc home per self. Normal [facility] ED NOTE HNO ID: [id number] Author: Julia Gannon, RN Service: Emergency Medicine Author Type: Registered Nurse Type: ED Notes Filed: 02/26/2023 9:43 PM Note Text: Patient informed: the name of medication, why we are giving it, possible side effects, what they may expect to feel, and was offered a chance to ask questions, prior to the administration of prednisone Normal [facility] ED NOTE HNO ID: [id number] Author: Oriana Jenkins RN Service: ? Author Type: Registered Nurse Type: ED Notes Filed: 02/26/2023 6:48 PM Note Text: Pt arrives c/o cough States recent pneumonia treated with doxycycline Continues to cough up fluid Reports not feeling any better Normal [facility] ED PROV NOTEon 02-26-2023 ED PROV NOTE HNO ID: [id number] Author: Tracy Ann DO Service: Emergency Medicine Author Type: Physician Type: ED Provider Notes Filed: 02/27/2023 7:05 AM Note Text: ED Provider Note Patient Name: Matt Calabrese : 2000 SERVICE DATE: 02/26/23 History Patient presents with: Cough Matt Calabrese is a 22 year old female with history of asthma who presents with Cough. - Symptoms began Sunday (3 days ago). - Severity: moderate - Timing: constant - Quality: productive of clear phlegm - Symptoms are associated with shortness of breath and chest pain only with coughing. - Symptoms are not associated with abdominal pain, diarrhea, fever, nausea, rash, vomiting, sore throat. Patient presents with persistent cough since Sunday. She states she also feels short of breath and has pain in her chest when she coughs. She states she went to [place] ED on Sunday and states he had a chest x-ray and was told she had pneumonia and was started doxycycline. She states that she was told that if she is not better in 2 days to return. She states she does not feel any better. She denies any fever. No sore throat. No hemoptysis. No syncope. No abdominal pain, nausea, vomiting or diarrhea. PAST MEDICAL HISTORY Diagnosis Date Asthma PAST SURGICAL HISTORY Procedure Laterality Date REMOVAL GALLBLADDER No family history on file. Social History Tobacco Use Smoking status: Never Passive exposure: Never Smokeless tobacco: Never Substance and Sexual Activity Alcohol use: Not on file Drug use: Not on file Sexual activity: Not on file ALLERGIES Allergen Reactions Amoxicillin Hives Clarithromycin Hives Penicillins Hives Trazodone Other: See Comments Suicidal ideations Zithromax [Azithrom* Hives Review of Systems Constitutional: Negative for chills and fever. HENT: Negative for facial swelling, sore throat and trouble swallowing. Respiratory: Positive for cough and shortness of breath. Cardiovascular: Positive for chest pain (With coughing only). Negative for leg swelling. Gastrointestinal: Negative for abdominal pain, nausea and vomiting. Musculoskeletal: Negative for neck stiffness. Skin: Negative for rash. Neurological: Negative for syncope, weakness and numbness. Psychiatric/Behavioral: Negative for agitation and confusion. Physical Exam Vitals [02/26/23 1843] BP Pulse Temp Temp src Resp SpO2 Weight Height 140/87 (!) 107 36.9 ?C (98.5 ?F) Temporal 20 100 % 101.6 kg (224 lb) -- Physical Exam Vitals and nursing note reviewed. Constitutional: Appearance: She is not toxic-appearing or diaphoretic. HENT: Head: Normocephalic and atraumatic. Mouth/Throat: Mouth: Mucous membranes are moist. Pharynx: Oropharynx is clear. No oropharyngeal exudate or posterior oropharyngeal erythema. Eyes: General: No scleral icterus. Conjunctiva/sclera: Conjunctivae normal. Cardiovascular: Rate and Rhythm: Normal rate and regular rhythm. Pulses: Normal pulses. Pulmonary: Effort: Pulmonary effort is normal. No accessory muscle usage or respiratory distress. Breath sounds: Normal breath sounds. No stridor. Comments: Bronchial sounding, dry cough on exam Abdominal: General: Abdomen is flat. Bowel sounds are normal. There is no distension. Palpations: Abdomen is soft. Tenderness: There is no abdominal tenderness. Musculoskeletal: Cervical back: Normal range of motion and neck supple. Right lower leg: No edema. Left lower leg: No edema. Skin: General: Skin is warm and dry. Capillary Refill: Capillary refill takes less than 2 seconds. Neurological: General: No focal deficit present. Mental Status: She is alert and oriented to person, place, and time. GCS: GCS eye subscore is 4. GCS verbal subscore is 5. GCS motor subscore is 6. Psychiatric: Mood and Affect: Mood normal. Behavior: Behavior normal. Diagnostic Testing ED Labs Ordered and Reviewed - No data to display Procedures ED Course / Clinical Impression Clinical Impressions as of 02/26/232121 Acute cough History of asthma MDM / Disposition / Plan Patient presents with persistent cough since Sunday. She states has been on doxycycline since Sunday and symptoms are not improved. Lungs are clear. Normal oxygen saturation. She is well-appearing, nontoxic. We will obtain labs and chest imaging. Chest x-ray report from [place] ED visit 02/24/23: IMPRESSION: Right middle lobe pulmonary opacity which may be pneumonia or atelectasis. Electronically Signed: Richie Peralta DO at 22:30 EDT , Labs Reviewed BASIC METABOLIC PNL - Normal HIGH SENSITIVITY TROPONIN T - Normal HCG QUAL UR - Normal CBC + DIFF XR CHEST 2V FRONTAL/LAT Final Result IMPRESSION: Overall unremarkable exam with no definite acute radiographic (more content not included)... Normal [facility] HCG Preg Ur Qlon 02-26-2023 HCG ( test) Ql (U) Negative Normal Negative [facility] Comment on above: Order Comment: Speci men Type: URINE SPECIMEN Ordering Facility: [facility] Address: [address], [place] [address] Result Comment: This test is intended to aid in the early detection of . Very dilute urine samples, as indicated by a low specific gravity, may not contain scheduling representative levels of hCG. This test detects intact hCG only. This test does not reliably detect hCG degradation products, including free-beta subunit and beta-core fragment. Therefore, this test may show reduced reactivity in urine after 8 weeks gestation. A number of conditions other than , including trophoblastic disease and certain non-trophoblastic neoplasms cause elevated levels of hCG. As with any assay employing mouse antibodies, the possibility exists for interference by human anti-mouse antibodies (HAMA) in the specimen. The test provides a presumptive diagnosis for . Performed By: #### 2 106-3 #### [facility] CLIA [id number] [address] [place] [id number] [facility] HIGH SENSITIVITY TROPONIN To n 02-26-2023 Troponin T.cardiac High sensitivity method [Mass/Vol] <6 Normal <12 [facility] Comment on above: Order Comment: Speci men Type: BLOOD SPECIMENOrdering Facility: [facility] Address: [address] [place] [address] Result Comment: When assessing risk for acute coronary syndromes: In patients undergoing blood draw greater than or equal to 2 hours from symptom onset, with history of very low to moderate risk and non-ischemic ECG, an initial hs-Troponin T less than 12 ng/L AND a 1 hour delta hs-Troponin T less than 3 ng/L should be considered very low risk for 30 day MACE. Performed By: #### H STNT ####[facility] [id number] [place] [address] [facility] XR CHEST 2V FRONTAL/LATon XR CHEST 2V FRONTAL/LAT * * *Final Report* * * DATE OF EXAM: Feb 26 2023 8:53PM LDX 5291 - XR CHEST 2V FRONTAL/LAT / PROCEDURE REASON: Shortness of breath * * * * Physician Interpretation * * * * EXAMINATION: CHEST RADIOGRAPH (2 VIEW FRONTAL and LATERAL) CLINICAL HISTORY: Shortness of breath, Other, cough MQ: [id number] EXAM DATE/TIME: 02/26/2023 8:53 PM COMPARISON: No relevant prior studies available. RESULT: Lines, tubes, and devices: None. Lungs and pleura: There is poor inflation of the lungs with crowded lung markings in both lung bases. No consolidation. No lung mass. No pleural effusion. No pneumothorax. Cardiomediastinal silhouette: Normal cardiomediastinal silhouette. Bones and soft tissues: Unremarkable. IMPRESSION: Overall unremarkable exam with no definite acute radiographic abnormality. Ingot Header: PSCB Transcribe Date/Time: Feb 26 2023 8:54P Dictated by : SHIV LYNCH MD This examination was interpreted and the report reviewed and electronically signed by: SHIV LYNCH MD on Feb 26 2023 8:55PM EST [id number] Normal [facility] Basophil percentageon 2022 Bilirubin [Mass/Vol] 0.10 mg/dL 0.20-1.00 [facility] Comment on above: For patients on eltr ombopag therapy, use of Dimension [place] TBIL is not recommended. Chloride [Moles/Vol] 107 mmol/L 98-107 [facility] Cholesterol [Mass/Vol] 182 mg/dL <200 [facility] Comment on above: <200 mg/dL Desirable 200-240 mg/dL Borderline >240 mg/dL High Risk Glucose [Mass/Vol] 101 mg/dL 74-106 [facility] Comment on above: Fasting Glucose resu lt from 100 to 125 mg/dL suggests IMPAIRED HOMEOSTASIS per A.D.A. criteria. Potassium [Moles/Vol] 4.2 mmol/L 3.5-5.1 [facility] Protein [Mass/Vol] 7.6 g/dL 6.4-8.2 [facility] Sodium [Moles/Vol] 139 mmol/L 136-145 [facility] Triglyceride [Mass/Vol] 173 mg/dL <199 [facility] Comment on above: The drugs N-Acetylcy steine and Metamizole may falsely depress this assay.Serum Triglycerides Reference Interval Normal <150 mg/dL Borderline high 150 - 199 mg/dL High 200 - 499 mg/dL Very High > or = 500 mg/dL WBC (Bld) [#/Vol] 8.4 10*3/uL 4.4-11.0 [facility] Blood erythrocytes count (nu mber/volume)on 11-23-2022 RBC (Bld) [#/Vol] 4.31 10*6/uL 4.2-5.4 [facility] Blood hemoglobin measurement (mass/volume)on 11-23-2022 Hemoglobin (Bld) [Mass/Vol] 12.6 g/dL 12.0-15.0 [facility] Blood platelet mean volumeon 11-23-2022 Platelet mean volume (Bld) [Entitic vol] 10.0 fL 6.2-12.0 [facility] Determination of erythrocyte mean corpuscular volume (MCV)on 11-23-2022 MCV (RBC) [Entitic vol] 91.4 fL 81-99 [facility] Hematocrit Auto (Bld) [Volum e fraction]on 11-23-2022 Hematocrit (Bld) [Volume fraction] 39.4 % 37-47 [facility] Laboratory - Chemistry and C hemistry - challengeon 11-23-2022 ALP [Catalytic activity/Vol] 87 U/L 45-117 [facility] ALT [Catalytic activity/Vol] 19 U/L 13-56 [facility] CO2 [Moles/Vol] 25.0 mmol/L 21.0-32.0 [facility] Free T4 [Mass/Vol] 0.91 ng/dL 0.76-1.46 [facility] Globulin (S) [Mass/Vol] 4.2 g/dL 2.2-4.2 [facility] Urea nitrogen/Creatinine [Mass ratio] 20.9 mg/mg 10-20 [facility] Laboratory - Hematology and Cell countson 11-23-2022 Erythrocyte distribution width (RBC) [Entitic vol] 40.2 fL 35.1-43.9 [facility] Erythrocyte distribution width (RBC) [Ratio] 12.0 % 11.6-14.6 [facility] MCH (RBC) [Entitic mass] 29.2 pg 27.0-32.0 [facility] MCHC Auto (RBC) [Mass/Vol]on 11-23-2022 MCHC (RBC) [Mass/Vol] 32.0 g/dL 32-36 [facility] No Panel Informationon 11-23 Estimated GFR (MDRD) Amer 129 mL/min >60 [facility] Comment on above: GFR Calc Estimated GFR (MDRD) Non-Af Amer 107 mL/min >60 [facility] Comment on above: Non- GFR Calc Thyroid Stimulating Hormone (TSH) 3.38 uIU/mL 0.358-3.74 [facility] Vitamin D 25-Hydroxy 21.5 ng/mL [facility] Comment on above: Vitamin D 25(OH) Sta tus Range Deficiency <20 ng/mL (50nmol/L) Insufficiency 20 - 30 ng/mL (50 - 75 nmol/L) Sufficiency 30 - 100 ng/mL (75 - 250 nmol/L) Toxicity >100 ng/mL (>250 nmol/L) Platelets bldon 11-23-2022 Platelets (Bld) [#/Vol] 284 10*3/uL 150-450 [facility] Serum or plasma albumin carole urement (mass/volume)on 11-23-2022 Albumin [Mass/Vol] 3.4 g/dL 3.2-5.0 [facility] Serum or plasma albumin/glob ulin mass ratioon 11-23-2022 Albumin/Globulin [Mass ratio] 0.8 {ratio} 0.9-2.4 [facility] Serum or plasma calcium carole urement (mass/volume)on 11-23-2022 Calcium [Mass/Vol] 8.5 mg/dL 8.5-10.1 [facility] Serum or plasma cholesterol in HDL measurement (mass/volume)on 11-23-2022 Cholesterol in HDL [Mass/Vol] 46 mg/dL >40 [facility] Comment on above: The drugs N-Acetylcy steine and Metamizole may falsely depress this assay. Reference Range HDL <40 mg/dL Low HDL Cholesterol HDL >or= 60 mg/dL High HDL Cholesterol Serum or plasma cholesterol in VLDL measurement (mass/volume)on 11-23-2022 Cholesterol in VLDL [Mass/Vol] 35 mg/dL 5-40 [facility] Serum or plasma creatinine m easurement (mass/volume)on 11-23-2022 Creatinine [Mass/Vol] 0.72 mg/dL 0.55-1.02 [facility] Comment on above: The validity of the calculated GFR & GFRAA in patients over 70 years has not been determined. Clinical correlation is essential. Serum or plasma low density lipoprotein (LDL) cholesterol measurement (mass/volume)on 11-23-2022 Cholesterol in LDL [Mass/Vol] 101 mg/dL 0-130 [facility] Serum or plasma urea nitroge n measurement (mass/volume)on 11-23-2022 Urea nitrogen [Mass/Vol] 15 mg/dL 7-18 [facility] Thin prep Papanicolaou smear with manual screeningon 11-23-2022 Thin prep Papanicolaou smear with manual screening 17 U/L 15-37 [facility] Thin prep Papanicolaou smear with manual screening 7 5-15 [facility] Vital Signs Date Time Vital Sign Value Performing Clinician Facility 09-15-2024 08:10-0400 Body height 159.1 cm Malachi Khalil MD Work Phone: [facility] 09-15-2024 08:10-0400 Body mass index (BMI) [Ratio] 39.35 kg/m2 Malachi Khalil MD Work Phone: [facility] 09-15-2024 08:10-0400 Body weight 99.6 kg Malachi Khalil MD Work Phone: [facility] 09-15-2024 08:10-0400 Diastolic blood pressure 61 mm[Hg] Malachi Khalil MD Work Phone: [facility] 09-15-2024 08:10-0400 Heart rate 89 /min Malachi Khalil MD Work Phone: [facility] 09-15-2024 08:10-0400 Systolic blood pressure 115 mm[Hg] Malachi Khalil MD Work Phone: [facility] 07-30-2024 09:06-0400 Body height 157.5 cm Kraig Walters MD Work Phone: [facility] 07-30-2024 09:06-0400 Body mass index (BMI) [Ratio] 39.84 kg/m2 Kraig Walters MD Work Phone: [facility] 07-30-2024 09:06-0400 Body weight 98.8 kg Kraig Walters MD Work Phone: [facility] 07-30-2024 09:06-0400 Diastolic blood pressure 64 mm[Hg] Kraig Walters MD Work Phone: [facility] 07-30-2024 09:06-0400 Heart rate 102 /min Kraig Walters MD Work Phone: [facility] 07-30-2024 09:06-0400 Respiratory rate 18 /min Kraig Walters MD Work Phone: [facility] 07-30-2024 09:06-0400 SaO2% (BldA) [Mass fraction] 95 % Kraig Walters MD Work Phone: [facility] 07-30-2024 09:06-0400 Systolic blood pressure 97 mm[Hg] Kraig Walters MD Work Phone: [facility] 07-20-2024 11:07-0500 Body temperature 98.24 [degF] DARIAN NAVARRO MD [facility] 07-20-2024 11:07-0500 Heart rate 99 /min DARIAN NAVARRO MD [facility] 07-20-2024 11:07-0500 Respiratory rate 18 /min DARIAN NAVARRO MD [facility] 07-20-2024 09:30-0500 Blood Pressure Cuff Size DARIAN NAVARRO MD [facility] 07-20-2024 09:30-0500 Blood Pressure Location DARIAN NAVARRO MD [facility] 07-20-2024 09:30-0500 Blood Pressure Method DARIAN NAVARRO MD [facility] 07-20-2024 09:30-0500 Body temperature 99.5 [degF] DARIAN NAVARRO MD [facility] 07-20-2024 09:30-0500 Diastolic Blood Pressure Non-Invasive 60 mm[Hg] DARIAN NAVARRO MD [facility] 07-20-2024 09:30-0500 Heart rate 120 /min DARIAN NAVARRO MD [facility] 07-20-2024 09:30-0500 Respiratory rate 18 /min DARIAN NAVARRO MD [facility] 07-20-2024 09:30-0500 Systolic Blood Pressure Non-Invasive 113 mm[Hg] DARIAN NAVARRO MD [facility] [facility] 13:37-0500 Diastolic blood pressure 67 mm[Hg] Lenora Dow MD Work Phone: [facility] 07-02-2024 13:37-0500 Heart rate 104 /min Lenora Dow MD Work Phone: [facility] 07-02-2024 13:37-0500 SaO2% (BldA) [Mass fraction] 96 % Lenora Dow MD Work Phone: [facility] 07-02-2024 13:37-0500 Systolic blood pressure 102 mm[Hg] Lenora Dow MD Work Phone: [facility] 05-09-2024 10:38-0500 Body temperature 98.24 [degF] FREDDY NORMA POND [facility] 05-09-2024 10:38-0500 Body weight 104.1 kg FREDDY ANNET [facility] 05-09-2024 10:38-0500 Diastolic Blood Pressure Non-Invasive 68 mm[Hg] FREDDY DAYANAT [facility] 05-09-2024 10:38-0500 Heart rate 100 /min FREDDY DAYANASae [facility] 12-20-2024 10:38-0500 Respiratory rate 16 /min FREDDY GREEN DO [facility] 05-09-2024 10:38-0500 Systolic Blood Pressure Non-Invasive 126 mm[Hg] FREDDY ANNET DO [facility] 04-25-2024 14:25-0500 Diastolic Blood Pressure Non-Invasive 74 mm[Hg] ARIEL WHITE MD [facility] 04-25-2024 14:25-0500 Heart rate 82 /min ARIEL WHITE MD [facility] 04-25-2024 14:25-0500 Systolic Blood Pressure Non-Invasive 112 mm[Hg] ARIEL WHITE MD [facility] 04-25-2024 13:21-0500 Diastolic Blood Pressure Non-Invasive 67 mm[Hg] ARIEL WHITE MD [facility] 04-25-2024 13:21-0500 Heart rate 75 /min ARIEL WHITE MD [facility] 04-25-2024 13:21-0500 Systolic Blood Pressure Non-Invasive 115 mm[Hg] ARIEL WHITE MD [facility] 04-25-2024 12:15-0500 Diastolic Blood Pressure Non-Invasive 64 mm[Hg] ARIEL WHITE MD [facility] 04-25-2024 12:15-0500 Heart rate 84 /min ARIEL WHITE MD [facility] 04-25-2024 12:15-0500 Systolic Blood Pressure Non-Invasive 112 mm[Hg] ARIEL WHITE MD [facility] 04-25-2024 10:30-0500 Respiratory rate 12 /min ARIEL WHITE MD [facility] 04-25-2024 10:15-0500 Respiratory rate 14 /min ARIEL WHITE MD [facility] 04-25-2024 09:19-0500 Body temperature 98.24 [degF] ARIEL WHITE MD [facility] 04-25-2024 09:10-0500 Respiratory Rate - Anes 13 br/min ARIEL WHITE MD [facility] 04-25-2024 09:05-0500 Respiratory Rate - Anes 12 br/min ARIEL WHITE MD [facility] 04-25-2024 08:45-0500 Body temperature 96.8 [degF] ARIEL WHITE MD [facility] 04-25-2024 06:40-0500 Body temperature 97.52 [degF] ARIEL WHITE MD [facility] 04-25-2024 06:40-0500 Heart rate 87 /min ARIEL WHITE MD [facility] 04-25-2024 06:31-0500 Body height 159 cm ARIEL WHITE MD [facility] 04-25-2024 06:31-0500 Body weight 101 kg ARIEL WHITE MD [facility] 04-25-2024 06:31-0500 Body weight 39.95 kg/m2 ARIEL WHITE MD [facility] 04-14-2024 15:19-0500 Body mass index (BMI) [Ratio] 41.19 kg/m2 Young Marsh DO Work Phone: [facility] 04-14-2024 15:19-0500 Body temperature 97 [degF] Young Masci DO Work Phone: [facility] 04-14-2024 15:190500 Body weight 104.78 kg Young Masci DO Work Phone: [facility] 04-14-2024 15:19-0500 Diastolic blood pressure 72 mm[Hg] Young Masci DO Work Phone: [facility] 04-14-2024 15:19-0500 Heart rate 85 /min Young Masci DO Work Phone: [facility] 04-14-2024 15:19-0500 SaO2% (BldA) [Mass fraction] 98 % Young Serenityi DO Work Phone: [facility] 04-14-2024 15:19-0500 Systolic blood pressure 105 mm[Hg] Young Bentoni DO Work Phone: [facility] 04-11-2024 09:03-0500 Body height 160 cm ARIEL WHITE MD [facility] 04-11-2024 09:03-0500 Body weight 101 kg ARIEL WHITE MD [facility] 04-11-2024 09:03-0500 Body weight 39.45 kg/m2 ARIEL WHITE MD [facility] 03-24-2024 09:26-0500 Body height 158 cm JACK PRIEST PHARMACY CLERK-CATHEAD WORKER [facility] 03-24-2024 09:26-0500 Body weight 104.1 kg JACK PRIEST PHARMACY CLERK-CATHEAD WORKER [facility] 03-24-2024 09:26-0500 Body weight 41.7 kg/m2 JACK PRIEST PHARMACY CLERK-CATHEAD WORKER [facility] 02-26-2024 12:09-0400 Body mass index (BMI) [Ratio] 40.64 kg/m2 Orlando Chopra PHARMACY CLERK.CATHEAD WORKER Work Phone: [facility] 02-26-2024 12:09-0400 Body temperature 98.1 [degF] Orlando Chopra PHARMACY CLERK.CATHEAD WORKER Work Phone: [facility] 02-26-2024 12:09-0400 Body weight 103.4 kg Orlando Chopra PHARMACY CLERK.CATHEAD WORKER Work Phone: [facility] 02-26-2024 12:09-0400 Diastolic blood pressure 78 mm[Hg] Orlando Chopra PHARMACY CLERK.CATHEAD WORKER Work Phone: [facility] 02-26-2024 12:09-0400 Heart rate 99 /min Orlando Chopra PHARMACY CLERK.CATHEAD WORKER Work Phone: [facility] 02-26-2024 12:09-0400 Respiratory rate 18 /min Orlando Chopra PHARMACY CLERK.CATHEAD WORKER Work Phone: [facility] 02-26-2024 12:09-0400 SaO2% (BldA) [Mass fraction] 100 % Orlando Chopra PHARMACY CLERK.CATHEAD WORKER Work Phone: [facility] 02-26-2024 12:09-0400 Systolic blood pressure 110 mm[Hg] Orlando Chopra PHARMACY CLERK.CATHEAD WORKER Work Phone: [facility] 02-20-2024 10:29-0400 Body height 159.5 cm Young Marsh DO Work Phone: [facility] 02-20-2024 10:29-0400 Body mass index (BMI) [Ratio] 40.74 kg/m2 Young Bentoni DO Work Phone: [facility] 02-20-2024 10:29-0400 Body temperature 98.2 [degF] Young Bentoni DO Work Phone: [facility] 02-20-2024 10:29-0400 Body weight 103.65 kg Young Masci DO Work Phone: [facility] 02-20-2024 10:29-0400 Diastolic blood pressure 74 mm[Hg] Young Masci DO Work Phone: [facility] 02-20-2024 10:29-0400 Heart rate 89 /min Young Masci DO Work Phone: [facility] 02-20-2024 10:29-0400 SaO2% (BldA) [Mass fraction] 97 % Young Masci DO Work Phone: [facility] 02-20-2024 10:29-0400 Systolic blood pressure 110 mm[Hg] Young Masci DO Work Phone: [facility] 02-06-2024 11:49-0400 Body height 157.5 cm Ahmed Elghawy DO Work Phone: [facility] 02-06-2024 11:49-0400 Body mass index (BMI) [Ratio] 41.52 kg/m2 Ahmed Elghawy DO Work Phone: [facility] 02-06-2024 11:49-0400 Body temperature 97.81 [degF] Ahmed Elghawy DO Work Phone: [facility] 02-06-2024 11:49-0400 Body weight 102.97 kg Ahmed Elghawy DO Work Phone: [facility] 02-06-2024 11:49-0400 Diastolic blood pressure 55 mm[Hg] Ahmed Elghawy DO Work Phone: [facility] 02-06-2024 11:49-0400 Heart rate 97 /min Ahmed Elghawy DO Work Phone: [facility] 02-06-2024 11:49-0400 Systolic blood pressure 108 mm[Hg] Ahmed Elghawy DO Work Phone: [facility] 02-01-2024 17:29-0400 Body mass index (BMI) [Ratio] 40.22 kg/m2 Jacquelin Nassar APRN.CATHEAD WORKER Work Phone: [facility] 02-01-2024 17:29-0400 Body temperature 98.1 [degF] Jacquelin Cesario PHARMACY CLERK.CATHEAD WORKER Work Phone: [facility] 02-01-2024 17:29-0400 Body weight 103 kg Jacquelin Cesario PHARMACY CLERK.CATHEAD WORKER Work Phone: [facility] 02-01-2024 17:29-0400 Diastolic blood pressure 75 mm[Hg] Jacquelin Cesario PHARMACY CLERK.CATHEAD WORKER Work Phone: [facility] 02-01-2024 17:29-0400 Heart rate 95 /min Jacquelin Cesario PHARMACY CLERK.CATHEAD WORKER Work Phone: [facility] 02-01-2024 17:29-0400 Respiratory rate 18 /min Jacquelin Cesario PHARMACY CLERK.CATHEAD WORKER Work Phone: [facility] 02-01-2024 17:29-0400 SaO2% (BldA) [Mass fraction] 100 % Jacquelin Cesario PHARMACY CLERK.CATHEAD WORKER Work Phone: [facility] 02-01-2024 17:29-0400 Systolic blood pressure 110 mm[Hg] Jacquelin Cesario PHARMACY CLERK.CATHEAD WORKER Work Phone: [facility] 01-25-2024 14:16-0400 Diastolic blood pressure 70 mm[Hg] Stacy Segura MD Work Phone: [facility] 01-25-2024 14:16-0400 Heart rate 79 /min Stacy Segura MD Work Phone: [facility] 01-25-2024 14:16-0400 Systolic blood pressure 128 mm[Hg] Stacy Segura MD Work Phone: [facility] 01-22-2024 12:00-0400 Diastolic blood pressure 55 mm[Hg] Stacy Segura MD Work Phone: [facility] 01-22-2024 12:00-0400 Heart rate 89 /min Stacy Segura MD Work Phone: [facility] 01-22-2024 12:00-0400 Respiratory rate 18 /min Stacy Segura MD Work Phone: [facility] 01-22-2024 12:00-0400 SaO2% (BldA) [Mass fraction] 96 % Stacy Segura MD Work Phone: [facility] 01-22-2024 12:00-0400 Systolic blood pressure 102 mm[Hg] Stacy Segrua MD Work Phone: [facility] 01-22-2024 10:30-0400 Body temperature 97.3 [degF] Stacy Segura MD Work Phone: [facility] 01-22-2024 06:40-0400 Body mass index (BMI) [Ratio] 40.69 kg/m2 Stacy Segura MD Work Phone: [facility] 01-22-2024 06:40-0400 Body weight 104.2 kg Stacy Segura MD Work Phone: [facility] 01-18-2024 09:02-0400 Body height 160 cm Pac 1 [facility] 01-18-2024 09:02-0400 Body mass index (BMI) [Ratio] 40.77 kg/m2 Pac 1 [facility] 01-18-2024 09:02-0400 Body temperature 98.1 [degF] Pac 1 [facility] 01-18-2024 09:02-0400 Body weight 104.4 kg Pac 1 [facility] 01-18-2024 09:02-0400 Diastolic blood pressure 72 mm[Hg] Pac 1 [facility] 01-18-2024 09:02-0400 Heart rate 93 /min Pac 1 [facility] 01-18-2024 09:02-0400 SaO2% (BldA) [Mass fraction] 100 % Pac 1 [facility] 01-18-2024 09:02-0400 Systolic blood pressure 109 mm[Hg] Pac 1 [facility] 01-07-2024 13:10-0400 Heart rate 100 /min Tamara Maxwell APRN.CNP Work Phone: [facility] 01-07-2024 13:10-0400 Respiratory rate 14 /min Tamara Maxwell PHARMACY CLERK.CATHEAD WORKER Work Phone: [facility] 01-07-2024 13:10-0400 SaO2% (BldA) [Mass fraction] 95 % Tamara Maxwell PHARMACY CLERK.CATHEAD WORKER Work Phone: [facility] 12-31-2023 15:45-0400 Body height 160 cm Stacy Segura MD Work Phone: [facility] 12-31-2023 15:45-0400 Body mass index (BMI) [Ratio] 40.85 kg/m2 Stacy Segura MD Work Phone: [facility] 12-31-2023 15:45-0400 Body weight 104.6 kg Stacy Segura MD Work Phone: [facility] 12-31-2023 15:45-0400 Diastolic blood pressure 83 mm[Hg] Stacy Segura MD Work Phone: [facility] 12-31-2023 15:45-0400 Heart rate 116 /min Stacy Segura MD Work Phone: [facility] 12-31-2023 15:45-0400 SaO2% (BldA) [Mass fraction] 97 % Stacy Segura MD Work Phone: [facility] 12-31-2023 15:45-0400 Systolic blood pressure 135 mm[Hg] Stacy Segura MD Work Phone: [facility] 12-24-2023 10:44-0400 Body mass index (BMI) [Ratio] 40.39 kg/m2 Marilyn Piña PHARMACY CLERK.CNM Work Phone: [facility] 12-24-2023 10:44-0400 Body weight 103.42 kg Marilyn Piña APRN.CNM Work Phone: [facility] 12-24-2023 10:44-0400 Diastolic blood pressure 68 mm[Hg] Marilyn Piña APRN.CNM Work Phone: [facility] 12-24-2023 10:44-0400 Systolic blood pressure 106 mm[Hg] Marilyn Plotts PHARMACY CLERK.CNM Work Phone: [facility] 12-07-2023 10:46-0400 Diastolic blood pressure 80 mm[Hg] Juliet Haury PHARMACY CLERK.CATHEAD WORKER Work Phone: [facility] 12-07-2023 10:46-0400 Systolic blood pressure 122 mm[Hg] Juliet Haury PHARMACY CLERK.CATHEAD WORKER Work Phone: [facility] 12-07-2023 10:24-0400 Body height 160 cm Juliet Haury PHARMACY CLERK.CATHEAD WORKER Work Phone: [facility] 12-07-2023 10:24-0400 Body mass index (BMI) [Ratio] 40.57 kg/m2 Juliet Haury PHARMACY CLERK.CATHEAD WORKER Work Phone: [facility] 12-07-2023 10:24-0400 Body weight 103.87 kg Juliet Haury PHARMACY CLERK.CATHEAD WORKER Work Phone: [facility] 12-07-2023 10:24-0400 Heart rate 78 /min Juliet Haury PHARMACY CLERK.CATHEAD WORKER Work Phone: [facility] 12-07-2023 10:24-0400 Respiratory rate 12 /min Juliet Haury PHARMACY CLERK.CATHEAD WORKER Work Phone: [facility] 12-07-2023 10:24-0400 SaO2% (BldA) [Mass fraction] 97 % Juliet Haury PHARMACY CLERK.CATHEAD WORKER Work Phone: [facility] 12-03-2023 14:18-0400 Body mass index (BMI) [Ratio] 40.21 kg/m2 Marilyn Plotts PHARMACY CLERK.CNM Work Phone: [facility] 12-03-2023 14:18-0400 Body weight 102.97 kg Marilyn Plotts PHARMACY CLERK.CNM Work Phone: [facility] 12-03-2023 14:18-0400 Diastolic blood pressure 60 mm[Hg] Marilyn Plotts PHARMACY CLERK.CNM Work Phone: [facility] 12-03-2023 14:18-0400 Systolic blood pressure 108 mm[Hg] Marilyn Dayjuana PHARMACY CLERK.CNM Work Phone: [facility] 11-05-2023 15:26-0400 Body mass index (BMI) [Ratio] 40.07 kg/m2 Rebel Sneed PHARMACY CLERK.CATHEAD WORKER Work Phone: [facility] 11-05-2023 15:26-0400 Body temperature 97.9 [degF] Rebel Sneed PHARMACY CLERK.CATHEAD WORKER Work Phone: [facility] 11-05-2023 15:26-0400 Body weight 102.6 kg Rebel Sneed PHARMACY CLERK.CATHEAD WORKER Work Phone: [facility] 11-05-2023 15:26-0400 Diastolic blood pressure 76 mm[Hg] Rebel Sneed PHARMACY CLERK.CATHEAD WORKER Work Phone: [facility] 11-05-2023 15:26-0400 Heart rate 82 /min Rebel Sneed PHARMACY CLERK.CATHEAD WORKER Work Phone: [facility] 11-05-2023 15:26-0400 Respiratory rate 16 /min Rebel Sneed PHARMACY CLERK.CATHEAD WORKER Work Phone: [facility] 11-05-2023 15:26-0400 SaO2% (BldA) [Mass fraction] 97 % Rebel Sneed PHARMACY CLERK.CATHEAD WORKER Work Phone: [facility] 11-05-2023 15:26-0400 Systolic blood pressure 146 mm[Hg] Rebel Sneed PHARMACY CLERK.CATHEAD WORKER Work Phone: [facility] 10-06-2023 09:53-0400 Body mass index (BMI) [Ratio] 40.42 kg/m2 Rula Joseph PHARMACY CLERK.CATHEAD WORKER Work Phone: [facility] 10-06-2023 09:53-0400 Body temperature 98.49 [degF] Rula Joseph PHARMACY CLERK.CATHEAD WORKER Work Phone: [facility] 10-06-2023 09:53-0400 Body weight 103.5 kg Rula Joseph VALARIE.CATHEAD WORKER Work Phone: [facility] 10-06-2023 09:53-0400 Diastolic blood pressure 82 mm[Hg] Rula Joseph VALARIE.CATHEAD WORKER Work Phone: [facility] 10-06-2023 09:53-0400 Heart rate 114 /min Rula Joseph APRN.CATHEAD WORKER Work Phone: [facility] 10-06-2023 09:53-0400 Respiratory rate 18 /min Rula Joseph VALARIE.CATHEAD WORKER Work Phone: [facility] 10-06-2023 09:53-0400 SaO2% (BldA) [Mass fraction] 98 % Rula James VALARIE.CATHEAD WORKER Work Phone: [facility] 10-06-2023 09:53-0400 Systolic blood pressure 126 mm[Hg] Rula Jake SHEPPARD.CATHEAD WORKER Work Phone: [facility] 09-21-2023 19:18-0400 Body temperature 98 [degF] MULTIMEDIA ASSISTANT-C Jack Priest MULTIMEDIA ASSISTANT Work Phone: [facility] 09-21-2023 19:18-0400 Diastolic blood pressure 72 mm[Hg] MULTIMEDIA ASSISTANT-C Jack Priest MULTIMEDIA ASSISTANT Work Phone: [facility] 09-21-2023 19:18-0400 Heart rate 61 /min MULTIMEDIA ASSISTANT-C Jack Priest MULTIMEDIA ASSISTANT Work Phone: [facility] 09-21-2023 19:18-0400 Respiratory rate 16 /min MULTIMEDIA ASSISTANT-C Jack Priest MULTIMEDIA ASSISTANT Work Phone: [facility] 09-21-2023 19:18-0400 SaO2% (BldA) [Mass fraction] 99 % MULTIMEDIA ASSISTANT-C Jack Priest MULTIMEDIA ASSISTANT Work Phone: [facility] 09-21-2023 19:18-0400 Systolic blood pressure 122 mm[Hg] MULTIMEDIA ASSISTANT-C Jack Priest MULTIMEDIA ASSISTANT Work Phone: [facility] 09-21-2023 16:34-0400 Body height 160.02 cm MULTIMEDIA ASSISTANT-C Jack Priest MULTIMEDIA ASSISTANT Work Phone: [facility] 09-21-2023 16:34-0400 Body mass index (BMI) [Ratio] 41.5 kg/m2 MULTIMEDIA ASSISTANT-C Jack Priest MULTIMEDIA ASSISTANT Work Phone: [facility] 09-21-2023 16:34-0400 Body weight 106.41 kg MULTIMEDIA ASSISTANT-C Jack Priest MULTIMEDIA ASSISTANT Work Phone: [facility] 09-14-2023 07:50-0400 Diastolic blood pressure 58 mm[Hg] Prakash Holland MD Work Phone: [facility] 09-14-2023 07:50-0400 Heart rate 83 /min Prakash Holland MD Work Phone: [facility] 09-14-2023 07:50-0400 Respiratory rate 16 /min Prakash Holland MD Work Phone: [facility] 09-14-2023 07:50-0400 SaO2% (BldA) [Mass fraction] 95 % Prakash Holland MD Work Phone: [facility] 09-14-2023 07:50-0400 Systolic blood pressure 103 mm[Hg] Prakash Holland MD Work Phone: [facility] 09-14-2023 07:34-0400 Body temperature 97.2 [degF] Prakash Holland MD Work Phone: [facility] 09-14-2023 07:03-0400 Body height 160 cm Prakash Holland MD Work Phone: [facility] 09-14-2023 07:03-0400 Body mass index (BMI) [Ratio] 40.39 kg/m2 Prakash Holland MD Work Phone: [facility] 09-14-2023 07:03-0400 Body weight 103.42 kg Prakash Holland MD Work Phone: [facility] 08-06-2023 10:50-0400 Body temperature 97.59 [degF] Elroymed Elghawy DO Work Phone: [facility] 08-06-2023 10:50-0400 Body weight 103.74 kg Ahmed Elghawy DO Work Phone: [facility] 08-06-2023 10:50-0400 Diastolic blood pressure 67 mm[Hg] Ahmed Elghawy DO Work Phone: [facility] 08-06-2023 10:50-0400 Heart rate 90 /min Ahmed Elghawy DO Work Phone: [facility] 08-06-2023 10:50-0400 Systolic blood pressure 116 mm[Hg] Ahmed Elghawy DO Work Phone: [facility] 08-03-2023 10:58-0400 Body temperature 97.81 [degF] Orlando Chopra PHARMACY CLERK.CATHEAD WORKER Work Phone: [facility] 08-03-2023 10:58-0400 Body weight 104.2 kg Orlando Chopra PHARMACY CLERK.CATHEAD WORKER Work Phone: [facility] 08-03-2023 10:58-0400 Diastolic blood pressure 79 mm[Hg] Orlando Chopra PHARMACY CLERK.CATHEAD WORKER Work Phone: [facility] 08-03-2023 10:58-0400 Heart rate 103 /min Orlando Nav PHARMACY CLERK.CATHEAD WORKER Work Phone: [facility] 08-03-2023 10:58-0400 Respiratory rate 20 /min Orlando Chopra PHARMACY CLERK.CATHEAD WORKER Work Phone: [facility] 08-03-2023 10:58-0400 SaO2% (BldA) [Mass fraction] 100 % Orlando Chopra PHARMACY CLERK.CATHEAD WORKER Work Phone: [facility] 08-03-2023 10:58-0400 Systolic blood pressure 134 mm[Hg] Orlando Nav PHARMACY CLERK.CATHEAD WORKER Work Phone: [facility] 07-30-2023 08:50-0400 Body temperature 98.1 [degF] MULTIMEDIA ASSISTANT-C Jack Priest MULTIMEDIA ASSISTANT Work Phone: [facility] 07-30-2023 08:50-0400 Diastolic blood pressure 76 mm[Hg] MULTIMEDIA ASSISTANT-C Jack Priest MULTIMEDIA ASSISTANT Work Phone: [facility] 07-30-2023 08:50-0400 Heart rate 113 /min MULTIMEDIA ASSISTANT-C Jack Priest MULTIMEDIA ASSISTANT Work Phone: [facility] 07-30-2023 08:50-0400 Respiratory rate 12 /min MULTIMEDIA ASSISTANT-C Jack Priest MULTIMEDIA ASSISTANT Work Phone: [facility] 07-30-2023 08:50-0400 SaO2% (BldA) [Mass fraction] 99 % MULTIMEDIA ASSISTANT-C Jack Priest MULTIMEDIA ASSISTANT Work Phone: [facility] 07-30-2023 08:50-0400 Systolic blood pressure 114 mm[Hg] MULTIMEDIA ASSISTANT-C Jack Priest MULTIMEDIA ASSISTANT Work Phone: [facility] 07-30-2023 08:43-0400 Body height 157.48 cm MULTIMEDIA ASSISTANT-C Jack Priest MULTIMEDIA ASSISTANT Work Phone: [facility] 07-28-2023 14:53-0500 Body temperature 97.81 [degF] Teofilo Coreas MD Work Phone: [facility] 07-28-2023 14:53-0500 Body weight 104 kg Teofilo Coreas MD Work Phone: [facility] 07-28-2023 14:53-0500 Diastolic blood pressure 76 mm[Hg] Teofilo Coreas MD Work Phone: [facility] 07-28-2023 14:53-0500 Heart rate 88 /min Teofilo Coreas MD Work Phone: [facility] 07-28-2023 14:53-0500 Respiratory rate 18 /min Teofilo Coreas MD Work Phone: [facility] 07-28-2023 14:53-0500 SaO2% (BldA) [Mass fraction] 99 % Teofilo Coreas MD Work Phone: [facility] 07-28-2023 14:53-0500 Systolic blood pressure 113 mm[Hg] Teofilo Coreas MD Work Phone: [facility] 07-19-2023 10:10-0500 Body height 160 cm Yuni Guillen MD Work Phone: [facility] 07-19-2023 10:10-0500 Body weight 105.23 kg Yuni Guillen MD Work Phone: [facility] 04-17-2023 09:15-0500 Body temperature 98.6 [degF] Lul Ciuni PHARMACY CLERK.CATHEAD WORKER Work Phone: [facility] 04-17-2023 09:15-0500 Body weight 104.33 kg Lul Ciuni PHARMACY CLERK.CATHEAD WORKER Work Phone: [facility] 04-17-2023 09:15-0500 Diastolic blood pressure 82 mm[Hg] Lul Ciuni PHARMACY CLERK.CATHEAD WORKER Work Phone: [facility] 04-17-2023 09:15-0500 Heart rate 99 /min Lul Ciuni PHARMACY CLERK.CATHEAD WORKER Work Phone: [facility] 04-17-2023 09:15-0500 Respiratory rate 16 /min Lul Ciuni PHARMACY CLERK.CATHEAD WORKER Work Phone: [facility] 04-17-2023 09:15-0500 SaO2% (BldA) [Mass fraction] 96 % Lul Ciuni PHARMACY CLERK.CATHEAD WORKER Work Phone: [facility] 04-17-2023 09:15-0500 Systolic blood pressure 131 mm[Hg] Lul Ciuni PHARMACY CLERK.CATHEAD WORKER Work Phone: [facility] 04-04-2023 11:01-0500 Body temperature 98.2 [degF] Jack Verghese MD Work Phone: [facility] 04-04-2023 11:01-0500 Body weight 104.6 kg Jack Alvarez MD Work Phone: [facility] 04-04-2023 11:01-0500 Diastolic blood pressure 76 mm[Hg] Jack Alvarez MD Work Phone: [facility] 04-04-2023 11:01-0500 Heart rate 94 /min Jack Alvarez MD Work Phone: [facility] 04-04-2023 11:01-0500 Respiratory rate 18 /min Jack Alvarez MD Work Phone: [facility] 04-04-2023 11:01-0500 SaO2% (BldA) [Mass fraction] 98 % Jack Alvarez MD Work Phone: [facility] 04-04-2023 11:01-0500 Systolic blood pressure 110 mm[Hg] Jack Alvarez MD Work Phone: [facility] 03-18-2023 16:24-0400 Body height 157.48 cm No Primary Care Physician [facility] 03-18-2023 16:24-0400 Body mass index (BMI) [Ratio] 42.3 kg/m2 No Primary Care Physician [facility] 03-18-2023 16:24-0400 Body temperature 97.7 [degF] No Primary Care Physician [facility] 03-18-2023 16:24-0400 Body weight 105 kg No Primary Care Physician [facility] 03-18-2023 16:24-0400 Diastolic blood pressure 85 mm[Hg] No Primary Care Physician [facility] 03-18-2023 16:24-0400 Heart rate 100 /min No Primary Care Physician [facility] 03-18-2023 16:24-0400 Respiratory rate 18 /min [facility] [facility] 03-18-2023 16:24-0400 SaO2% (BldA) [Mass fraction] 100 % No Primary Care Physician [facility] 03-18-2023 16:24-0400 Systolic blood pressure 124 mm[Hg] No Primary Care Physician [facility] 03-09-2023 19:45-0400 Diastolic blood pressure 69 mm[Hg] No Primary Care Physician [facility] 03-09-2023 19:45-0400 Heart rate 90 /min No Primary Care Physician [facility] 03-09-2023 19:45-0400 Respiratory rate 18 /min No Primary Care Physician [facility] 03-09-2023 19:45-0400 SaO2% (BldA) [Mass fraction] 98 % No Primary Care Physician [facility] 03-09-2023 19:45-0400 Systolic blood pressure 122 mm[Hg] No Primary Care Physician [facility] 03-09-2023 18:10-0400 Body height 157.48 cm No Primary Care Physician [facility] 03-09-2023 18:10-0400 Body mass index (BMI) [Ratio] 42 kg/m2 No Primary Care Physician [facility] 03-09-2023 18:10-0400 Body temperature 97 [degF] No Primary Care Physician [facility] 03-09-2023 18:10-0400 Body weight 104.14 kg No Primary Care Physician [facility] 03-09-2023 17:12-0400 Body temperature 98.8 [degF] No Primary Care Physician [facility] 03-09-2023 17:12-0400 Diastolic blood pressure 86 mm[Hg] No Primary Care Physician [facility] 03-09-2023 17:12-0400 Heart rate 90 /min No Primary Care Physician [facility] 03-09-2023 17:12-0400 Respiratory rate 15 /min No Primary Care Physician [facility] 03-09-2023 17:12-0400 SaO2% (BldA) [Mass fraction] 98 % No Primary Care Physician [facility] 03-09-2023 17:12-0400 Systolic blood pressure 120 mm[Hg] No Primary Care Physician [facility] 02-24-2023 20:53-0400 Body height 157.48 cm No Primary Care Physician [facility] 02-24-2023 20:53-0400 Body mass index (BMI) [Ratio] 41.8 kg/m2 No Primary Care Physician [facility] 02-24-2023 20:53-0400 Body temperature 97.1 [degF] No Primary Care Physician [facility] 02-24-2023 20:53-0400 Body weight 103.87 kg No Primary Care Physician [facility] 02-24-2023 20:53-0400 Diastolic blood pressure 93 mm[Hg] No Primary Care Physician [facility] 02-24-2023 20:53-0400 Heart rate 104 /min No Primary Care Physician [facility] 02-24-2023 20:53-0400 Respiratory rate 15 /min No Primary Care Physician [facility] 02-24-2023 20:53-0400 SaO2% (BldA) [Mass fraction] 99 % No Primary Care Physician [facility] 02-24-2023 20:53-0400 Systolic blood pressure 141 mm[Hg] No Primary Care Physician [facility] 01-18-2023 08:48-0400 Body mass index (BMI) [Ratio] 43.1 kg/m2 No Primary Care Physician [facility] 01-18-2023 08:48-0400 Body weight 107.04 kg No Primary Care Physician [facility] 01-17-2023 08:23-0400 Body temperature 98.4 [degF] No Primary Care Physician [facility] 01-17-2023 08:23-0400 Diastolic blood pressure 78 mm[Hg] No Primary Care Physician [facility] 01-17-2023 08:23-0400 Heart rate 74 /min No Primary Care Physician [facility] 01-17-2023 08:23-0400 Respiratory rate 16 /min No Primary Care Physician [facility] 01-17-2023 08:23-0400 Systolic blood pressure 112 mm[Hg] No Primary Care Physician [facility] 01-03-2023 12:07-0400 Body temperature 99.3 [degF] [facility] Doctor [facility] 01-03-2023 12:07-0400 Diastolic blood pressure 72 mm[Hg] [place] Doctor [facility] 01-03-2023 12:07-0400 Heart rate 68 /min [facility] Doctor [facility] 01-03-2023 12:07-0400 Respiratory rate 14 /min [facility] Doctor [facility] 01-03-2023 12:07-0400 SaO2% (BldA) [Mass fraction] 98 % Out [facility] 01-03-2023 12:07-0400 Systolic blood pressure 110 mm[Hg] Out [facility] 12-27-2022 06:46-0400 Body height 157.48 cm Out [facility] 12-27-2022 06:46-0400 Body mass index (BMI) [Ratio] 43.1 kg/m2 Out [facility] 12-27-2022 06:46-0400 Body temperature 99.3 [degF] Out [facility] 12-27-2022 06:46-0400 Body weight 107.04 kg Out [facility] 12-27-2022 06:46-0400 Diastolic blood pressure 70 mm[Hg] Out [facility] 12-27-2022 06:46-0400 Heart rate 83 /min Out [facility] 12-27-2022 06:46-0400 Respiratory rate 14 /min Out [facility] 12-27-2022 06:46-0400 SaO2% (BldA) [Mass fraction] 94 % Out [facility] 12-27-2022 06:46-0400 Systolic blood pressure 115 mm[Hg] Out [facility] 12-13-2022 06:12-0400 Body temperature 98.6 [degF] Out [facility] 12-13-2022 06:12-0400 Diastolic blood pressure 68 mm[Hg] Out [facility] 12-13-2022 06:12-0400 Heart rate 107 /min Out [facility] 12-13-2022 06:12-0400 Respiratory rate 16 /min Out [facility] 12-13-2022 06:12-0400 SaO2% (BldA) [Mass fraction] 99 % Out [facility] 12-13-2022 06:12-0400 Systolic blood pressure 127 mm[Hg] Out [facility] 12-06-2022 15:46-0400 Body height 160.02 cm Out [facility] 12-06-2022 15:46-0400 Body mass index (BMI) [Ratio] 40.4 kg/m2 Out [facility] 12-06-2022 15:46-0400 Body temperature 97.7 [degF] Out [facility] 12-06-2022 15:46-0400 Body weight 103.41 kg Out [facility] 12-06-2022 15:46-0400 Heart rate 102 /min Out [facility] 12-06-2022 15:46-0400 SaO2% (BldA) [Mass fraction] 98 % Out [facility] 12-01-2022 17:17-0400 Body temperature 98.2 [degF] Out [facility] 12-01-2022 17:17-0400 Diastolic blood pressure 78 mm[Hg] Out [facility] 12-01-2022 17:17-0400 Heart rate 102 /min Out [facility] 12-01-2022 17:17-0400 Respiratory rate 14 /min Out [facility] 12-01-2022 17:17-0400 SaO2% (BldA) [Mass fraction] 96 % Out [facility] 12-01-2022 17:17-0400 Systolic blood pressure 138 mm[Hg] Out [facility] 11-14-2022 12:42-0400 Body height 160.02 cm Out [facility] 11-14-2022 12:42-0400 Body temperature 97.4 [degF] Out [facility] 11-14-2022 12:42-0400 Diastolic blood pressure 60 mm[Hg] Out [facility] 11-14-2022 12:42-0400 Heart rate 97 /min Out [facility] 11-14-2022 12:42-0400 Respiratory rate 16 /min Out [facility] 11-14-2022 12:42-0400 SaO2% (BldA) [Mass fraction] 97 % Out [facility] 11-14-2022 12:42-0400 Systolic blood pressure 102 mm[Hg] Out [facility] 10-14-2022 20:28-0400 Body height 157.48 cm Out [facility] 10-14-2022 20:28-0400 Body mass index (BMI) [Ratio] 41 kg/m2 Out [facility] 10-14-2022 20:28-0400 Body temperature 97.8 [degF] Out [facility] 10-14-2022 20:28-0400 Body weight 101.69 kg Out [facility] 10-14-2022 20:28-0400 Diastolic blood pressure 73 mm[Hg] Out [facility] 10-14-2022 20:28-0400 Heart rate 99 /min Out [facility] 10-14-2022 20:28-0400 Respiratory rate 16 /min Out [facility] 10-14-2022 20:28-0400 SaO2% (BldA) [Mass fraction] 98 % Out [facility] 10-14-2022 20:28-0400 Systolic blood pressure 129 mm[Hg] Out [facility] 10-06-2022 22:23-0400 Heart rate 97 /min Out [facility] 10-06-2022 22:23-0400 Respiratory rate 18 /min Out [facility] 10-06-2022 22:23-0400 SaO2% (BldA) [Mass fraction] 98 % Out [facility] 10-06-2022 20:13-0400 Body mass index (BMI) [Ratio] 39.6 kg/m2 Out [facility] 10-06-2022 20:13-0400 Body temperature 97 [degF] Out [facility] 10-06-2022 20:13-0400 Body weight 101.6 kg Out [facility] 10-06-2022 20:13-0400 Diastolic blood pressure 100 mm[Hg] Out [facility] 10-06-2022 20:13-0400 Systolic blood pressure 135 mm[Hg] Out [facility] 09-22-2022 16:50-0400 Body height 160.02 cm Out [facility] 09-22-2022 16:50-0400 Body mass index (BMI) [Ratio] 39.1 kg/m2 Out [facility] 09-22-2022 16:50-0400 Body temperature 97.5 [degF] Out [facility] 09-22-2022 16:50-0400 Body weight 100.24 kg Out [facility] 09-22-2022 16:50-0400 Diastolic blood pressure 90 mm[Hg] Out [facility] 09-22-2022 16:50-0400 Heart rate 95 /min Out [facility] 09-22-2022 16:50-0400 Respiratory rate 18 /min Out [facility] 09-22-2022 16:50-0400 SaO2% (BldA) [Mass fraction] 100 % Out [facility] 09-22-2022 16:50-0400 Systolic blood pressure 126 mm[Hg] Out [facility] 05-16-2022 18:35-0500 Body height 160.02 cm [facility] Work Phone: 05-16-2022 18:35-0500 Body mass index (BMI) [Ratio] 40.9 kg/m2 [facility] Work Phone: 05-16-2022 18:35-0500 Body temperature 96.9 [degF] [facility] Work Phone: 05-16-2022 18:35-0500 Body weight 104.77 kg [facility] Work Phone: 05-16-2022 18:35-0500 Diastolic blood pressure 87 mm[Hg] [facility] Work Phone: 05-16-2022 18:35-0500 Heart rate 96 /min [facility] Work Phone: 05-16-2022 18:35-0500 Respiratory rate 15 /min [facility] Work Phone: 05-16-2022 18:35-0500 SaO2% (BldA) [Mass fraction] 99 % [facility] Work Phone: 05-16-2022 18:35-0500 Systolic blood pressure 130 mm[Hg] [facility] Work Phone: Encounters Encounter Date Encounter Type Care Provider Facility Start: 11-20-2024 ambulatory Maverick Friend Facility :[facility] Start: 10-27-2024 ambulatory Jack hamilton MULTIMEDIA ASSISTANT Facility:[facility] Start: 10-27-2024 ambulatory JACK WADE PHARMACY CLERK-CATHEAD WORKER Facility:[facility] Start: 10-27-2024 End: 10-27-2024 ambulatory JACK PRIEST PHARMACY CLERK-CATHEAD WORKER Facility:[facility] Start: 10-27-2024 End: 10-27-2024 Patient encounter procedure JACK PRIEST PHARMACY CLERK-CATHEAD WORKER [facility] Start: 10-23-2024 End: 10-23-2024 ambulatory JACK PRIEST PHARMACY CLERK-CATHEAD WORKER Facility:[facility] Start: 10-23-2024 End: 10-23-2024 Patient encounter procedure JACK PRIEST PHARMACY CLERK-CATHEAD WORKER [facility] Start: 10-18-2024 End: 10-18-2024 ambulatory JACK PRIEST PHARMACY CLERK-CATHEAD WORKER Facility:[facility] Start: 10-09-2024 End: 10-09-2024 ambulatory KRAIG QUINTEROS WALTERS Facility:[facility] Start: 09-23-2024 End: 09-23-2024 Telephone encounter Malachi Khalil MD Work Phone: Endocrinology Comment on above: Medication Preauthor ization (semaglutide, weight loss, (WEGOVY) 0.25 mg/0.5 mL pen injector) Start: 09-22-2024 End: 09-22-2024 Refill Malachi Khalil MD Work Phone: Endocrinology Comment on above: Refill Request Start: 09-18-2024 ambulatory Maverick Erickson Facility :[facility] Start: 09-16-2024 End: 09-16-2024 Nursing evaluation of patient and report Abdi Chester RN Work Phone: Endocrinology Comment on above: Prediabetes Start: 09-16-2024 End: 09-16-2024 ambulatory PIERCE PROCTOR Facility:[facility] Start: 09-15-2024 End: 09-15-2024 ambulatory MALACHI KHALIL Facility:[facility] Start: 09-15-2024 End: 09-15-2024 Patient encounter procedure Malachi Khalil MD Work Phone: Endocrinology Comment on above: Prediabetes (Primary Dx); Class 2 severe obesity due to excess calories with serious comorbidity and body mass index (BMI) of 39.0 to 39.9 in adult (HCC) Start: 09-12-2024 End: 09-12-2024 Telemedicine consultation with patient Kraig Walters MD Work Phone: Infectious Disease Start: 09-12-2024 End: 09-12-2024 ambulatory Kraig Walters MD Work Phone: Infectious Disease Comment on above: Necrotizing granulom atous inflammation (HCC) (Primary Dx); Histoplasmosis; Chronic cough Start: 09-10-2024 End: 09-10-2024 ambulatory JACK PRIEST PHARMACY CLERK-CATHEAD WORKER Facility:[facility] Start: 09-10-2024 End: 09-10-2024 Patient encounter procedure JACK PRIEST PHARMACY CLERK-CATHEAD WORKER [facility] Start: 09-02-2024 End: 09-02-2024 ambulatory DINORAH JOE Facility:[facility] Start: 09-01-2024 End: 09-01-2024 E-mail encounter from caregiver Kraig Walters MD Work Phone: Infectious Disease Start: 09-01-2024 End: 09-01-2024 ambulatory Kraig Walters MD Work Phone: Infectious Disease Comment on above: Response to your que juanjo Walters Start: 08-29-2024 End: 10-29-2024 Follow-up encounter Kraig Walters MD Work Phone: MM Provider Adult Start: 08-29-2024 End: 08-29-2024 ambulatory ARIEL WHITE MD Facility[facility] Start: 08-27-2024 End: 08-27-2024 ambulatory DINORAH JOE Facility:[facility] Start: 08-26-2024 End: 08-26-2024 ambulatory Marquita Chavez Facility:[facility] Start: 08-25-2024 End: 08-25-2024 Telephone encounter Kraig Walters MD Work Phone: MM Provider Adult Start: 08-21-2024 End: 08-21-2024 Telephone encounter Jack Priest CNP Work Phone: [facility] Start: 08-20-2024 End: 08-20-2024 ambulatory DINORAH JOE Facility:[facility] Start: 08-15-2024 End: 08-15-2024 ambulatory Maverick Erickson Facility:[facility] Start: 08-13-2024 End: 08-13-2024 Telephone encounter Kraig Waltesr MD Work Phone: Infectious Disease Start: 08-13-2024 End: 08-13-2024 ambulatory DINORAH JOE Facility:[facility] Start: 08-11-2024 End: 08-11-2024 ambulatory Jack Priest NP Facility:[facility] Start: 08-11-2024 End: 08-11-2024 ambulatory Marquita Chavez Facility:[facility] Start: 08-08-2024 End: 08-08-2024 ambulatory Marquita Scott Facility:[facility] Start: 08-07-2024 End: 08-07-2024 Follow-up encounter Skye Littlejohn MD Work Phone: Infectious Disease Start: 08-06-2024 End: 08-06-2024 ambulatory SIDDHARTHMonet LITTLEJOHN Facility:[facility] Start: 08-05-2024 End: 08-06-2024 ambulatory Kraig Walters MD Work Phone: Infectious Disease Comment on above: Bloodwork weekly Start: 08-04-2024 ambulatory JACK WADE PHARMACY CLERK-CATHEAD WORKER Facility:[facility] Start: 08-01-2024 End: 10-01-2024 Follow-up encounter Kevin Olson MD Work Phone: Pulmonology [facility] Start: 07-31-2024 End: 07-31-2024 E-mail encounter from caregiver Kraig Walters MD Work Phone: Infectious Disease Start: 07-31-2024 End: 07-31-2024 Telemedicine consultation with patient Kevin Olson MD Work Phone: Pulmonary Medicine Start: 07-31-2024 End: 07-31-2024 ambulatory Kraig Walters MD Work Phone: Infectious Disease Comment on above: updates - dr walters Histoplasmosis (Prim jade Dx); Lymphadenopathy, thoracic; Recurrent pneumonia; Liver disease Start: 07-30-2024 End: 07-30-2024 ambulatory KRAIG WALTERS Facility:[facility] Start: 07-30-2024 End: 07-30-2024 Patient encounter procedure Kraig Walters MD Work Phone: Infectious Disease Comment on above: 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); Histoplasmosis; Fever, unspecified; Drug interaction Start: 07-30-2024 End: 07-30-2024 ambulatory KRAIG WALTERS Facility:[facility] Start: 07-28-2024 End: 07-28-2024 Telephone encounter Danica Ugarte RN Pulmonary Medicine Comment on above: Patient Update Start: 07-22-2024 End: 07-23-2024 Telephone encounter Che Larsen MD Work Phone: Pulmonary Medicine Comment on above: Toe Sewer - O ther Start: 07-21-2024 End: 07-29-2024 Evaluation and management of inpatient JOSE CEDILLO MD FACP Facility:[facility] Start: 07-20-2024 End: 07-20-2024 Emergency department patient visit DARIAN NAVARRO MD [facility] Start: 07-16-2024 End: 07-17-2024 Emergency department patient visit Harvinder Enid Facility:[facility] Start: 07-14-2024 End: 07-14-2024 Patient encounter procedure JACK PRIEST PHARMACY CLERK-CATHEAD WORKER [facility] Start: 07-14-2024 End: 07-14-2024 Telemedicine consultation with patient Kevin Olson MD Work Phone: Pulmonary Medicine Start: 07-14-2024 End: 07-14-2024 ambulatory Kevin Olson MD Work Phone: Pulmonary Medicine Comment on above: Histoplasmosis (Prim jade Dx); Thoracic lymphadenopathy; Chronic cough; Pulmonary nodules; Liver disease; Obesity, Class III, BMI 40-49.9 (morbid obesity) (HCC) Start: 07-10-2024 End: 07-10-2024 ambulatory Jack Priest MULTIMEDIA ASSISTANT Facility:[facility] Start: 07-09-2024 End: 07-11-2024 Telephone encounter Lenora Dow MD Work Phone: [facility] Provider Adult Critical Care Start: 07-09-2024 End: 07-10-2024 ambulatory [facility] Facility:[facility] Start: 07-09-2024 Encounter for other preprocedural examination DINORAH JOE [facility] Start: 07-07-2024 End: 07-07-2024 ambulatory Smith DAILEY Facility:[facility] Start: 07-02-2024 End: 07-02-2024 ambulatory [facility] Facility:[facility] Start: 07-02-2024 End: 07-02-2024 ambulatory LENORA DOW Facility:[facility] Start: 07-02-2024 End: 07-02-2024 Office outpatient visit 25 minutes Lenora Dow MD Work Phone: Pulmonology [facility] Comment on above: Lung nodules (Primar y Dx); Abnormal chest CT; Thoracic lymphadenopathy Start: 07-02-2024 End: 07-02-2024 Patient encounter procedure Skye Giraldo MD Work Phone: Pulmonary Medicine Comment on above: Bronchoscopy Schedul ing (Initial Bronch Request ) Start: 07-02-2024 End: 07-02-2024 Patient encounter status Skye Giraldo MD Work Phone: [facility] Start: 06-30-2024 End: 06-30-2024 ambulatory Merry MAGDALENO Pulmonary Medicine Start: 06-26-2024 End: 06-26-2024 ambulatory Jack Priest NP Facility:[facility] Start: 06-26-2024 End: 06-26-2024 [facility] Start: 06-24-2024 End: 06-24-2024 ambulatory Jack Priest NP Facility:[facility] Start: 06-24-2024 End: 06-24-2024 ambulatory Andrea Campos Facility:[facility] Start: 06-12-2024 End: 06-27-2024 ambulatory Lul Carranza PHARMACY CLERK.CATHEAD WORKER Work Phone: Pulmonary Medicine Comment on above: Those lung nodules a ppt Start: 06-11-2024 End: 06-11-2024 ambulatory JACK PRIEST PHARMACY CLERK-CATHEAD WORKER Facility:[facility] Start: 06-11-2024 End: 06-11-2024 Patient encounter procedure JACK PRIEST PHARMACY CLERK-CATHEAD WORKER [facility] Start: 06-09-2024 End: 06-09-2024 ambulatory Jack Priest NP Facility:[facility] Start: 06-09-2024 End: 06-09-2024 ambulatory Marquita Chavez Facility:[facility] Start: 05-26-2024 End: 05-26-2024 ambulatory JACK PRIEST PHARMACY CLERK-CATHEAD WORKER Facility:[facility] Start: 05-26-2024 End: 05-26-2024 Patient encounter procedure JACK PRIEST PHARMACY CLERK-CATHEAD WORKER [facility] Start: 05-22-2024 End: 05-22-2024 ambulatory JACK PRIEST PHARMACY CLERK-CATHEAD WORKER Facility:[facility] Start: 05-22-2024 End: 05-22-2024 Patient encounter procedure JACK PRIEST PHARMACY CLERK-CATHEAD WORKER [facility] Start: 05-19-2024 End: 05-23-2024 ambulatory ARIEL WHITE MD Facility[facility] Start: 05-19-2024 End: 05-23-2024 Outreach Lab ARIEL WHITE MD [facility] Start: 05-09-2024 End: 05-09-2024 Emergency department patient visit FREDDY GREEN DO [facility] Start: 05-08-2024 End: 05-08-2024 Emergency department patient visit Jack Priest NP Facility:[facility] Start: 05-04-2024 End: 05-04-2024 Emergency department patient visit JACK PRIEST PHARMACY CLERK-CATHEAD WORKER Facility:[facility] Start: 05-02-2024 End: 05-02-2024 ambulatory JACK PRIEST PHARMACY CLERK-CATHEAD WORKER Facility:[facility] Start: 05-02-2024 End: 05-02-2024 Patient encounter procedure JACK PRIEST PHARMACY CLERK-CATHEAD WORKER [facility] Start: 05-02-2024 End: 05-06-2024 ambulatory JACK PRIEST PHARMACY CLERK-CATHEAD WORKER Facility:[facility] Start: 05-02-2024 End: 05-06-2024 Outreach Lab JACK PRIEST PHARMACY CLERK-CATHEAD WORKER [facility] Start: 04-29-2024 End: 05-03-2024 ambulatory JACK PRIEST PHARMACY CLERK-CATHEAD WORKER Facility:[facility] Start: 04-29-2024 End: 05-03-2024 Outreach Lab ARIEL WHITE MD [facility] Start: 04-25-2024 End: 04-25-2024 ambulatory JACK Moris CEM PHARMACY CLERK-CATHEAD WORKER Facility:[facility] Start: 04-25-2024 End: 04-25-2024 Manual pelvic examination ARIEL WHITE MD [facility] Start: 04-22-2024 End: 04-22-2024 ambulatory No Primary Care Physician Facility:[facility] Start: 04-16-2024 End: 04-16-2024 ambulatory JACK PRIEST PHARMACY CLERK-CATHEAD WORKER Facility:[facility] Start: 04-16-2024 End: 04-16-2024 Patient encounter procedure JACK PRIEST PHARMACY CLERK-CATHEAD WORKER [facility] Start: 04-15-2024 End: 04-15-2024 ambulatory Merry Galvan [facility] Pulmonary Medicine Start: 04-15-2024 End: 04-15-2024 Telephone encounter Young Marsh DO Work Phone: Hematology/Oncology Comment on above: Results Start: 04-14-2024 End: 04-14-2024 ambulatory LUL CARRANZA Facility:[facility] Start: 04-14-2024 End: 04-14-2024 Office outpatient visit 25 minutes Young Marsh DO Work Phone: Hematology/Oncology Comment on above: Menorrhagia with irr egular cycle (Primary Dx); H/O superficial phlebitis Start: 04-11-2024 End: 04-11-2024 Admission to establishment ARIEL WHITE MD [facility] Start: 04-11-2024 End: 04-11-2024 ambulatory JACK PRIEST PHARMACY CLERK-CATHEAD WORKER Facility:[facility] Start: 04-08-2024 End: 04-08-2024 Telemedicine consultation with patient Lul Carranza PHARMACY CLERK.CATHEAD WORKER Work Phone: Pulmonary Medicine Start: 04-08-2024 End: 04-08-2024 ambulatory Lul Carranza PHARMACY CLERK.CATHEAD WORKER Work Phone: Pulmonary Medicine Comment on above: Lung nodules (Primar y Dx); Chronic cough Start: 04-07-2024 End: 04-07-2024 ambulatory LUL CARRANZA Facility:[facility] Start: 04-07-2024 End: 04-07-2024 Subsequent hospital visit by physician [facility] (I-Stat) Work Phone: Cat Scan Comment on above: Lung nodules [R91.8] Start: 04-01-2024 End: 04-01-2024 Telephone encounter Aury Tristan DO Work Phone: Rheumatology Comment on above: PT Eval Start: 03-27-2024 End: 03-27-2024 ambulatory JACK PRIEST PHARMACY CLERK-CATHEAD WORKER Facility:[facility] Start: 03-27-2024 End: 03-27-2024 Patient encounter procedure JACK PRIEST PHARMACY CLERK-CATHEAD WORKER [facility] Start: 03-24-2024 End: 03-24-2024 ambulatory JACK PRIEST PHARMACY CLERK-CATHEAD WORKER Facility:[facility] Start: 03-24-2024 End: 03-24-2024 Patient encounter procedure JACK PRIEST PHARMACY CLERK-CATHEAD WORKER [facility] Start: 03-10-2024 End: 03-12-2024 ambulatory Young Marsh DO Work Phone: Hematology/Oncology Comment on above: Test results Start: 03-07-2024 End: 03-07-2024 Patient encounter procedure Speech [facility]bs [facility] Work Phone: [facility] Speech Therapy Comment on above: Dysphagia, unspecifi ed type (Primary Dx) Start: 03-07-2024 End: 03-07-2024 ambulatory Speech [facility] Work Phone: [facility] Start: 03-07-2024 End: 03-07-2024 Subsequent hospital visit by physician Gi/Gu 2 [facility] (I-Stat) Work Phone: Radiology Comment on above: Dysphagia, unspecifi ed type [R13.10] Start: 03-05-2024 End: 03-05-2024 ambulatory JACK PRIEST PHARMACY CLERK-CATHEAD WORKER Facility:[facility] Start: 03-05-2024 End: 03-05-2024 Patient encounter procedure JACK PRIEST PHARMACY CLERK-CATHEAD WORKER [facility] Start: 02-28-2024 End: 02-28-2024 ambulatory JACK PRIEST PHARMACY CLERK-CATHEAD WORKER Facility:[facility] Start: 02-28-2024 End: 02-28-2024 Patient encounter procedure JACK PRIEST PHARMACY CLERK-CATHEAD WORKER [facility] Start: 02-27-2024 End: 02-27-2024 Patient encounter procedure JACK PRIEST PHARMACY CLERK-CATHEAD WORKER [facility] Start: 02-27-2024 End: 02-27-2024 ambulatory JACK PRIEST Facility:[facility] Start: 02-26-2024 End: 02-26-2024 ambulatory JACK PRIEST Facility:[facility] Start: 02-26-2024 End: 02-26-2024 Patient encounter procedure Orlando Chopra PHARMACY CLERK.CATHEAD WORKER Work Phone: [facility] Comment on above: Sore throat (Primary Dx) Start: 02-26-2024 ambulatory JACK PRIEST Fac ility:[facility] Start: 02-22-2024 End: 03-31-2024 Telephone encounter Aury Tristan DO Work Phone: Rheumatology Comment on above: PT Eval Start: 02-20-2024 End: 02-20-2024 Telephone encounter Mary Murillo PA-C Work Phone: Gastroenterology Comment on above: Orders ([facility]/modified barium swallow) Start: 02-20-2024 End: 02-20-2024 ambulatory Young Marsh DO Work Phone: Hematology/Oncology Comment on above: Menorrhagia with irr egular cycle (Primary Dx); Superficial thrombophlebitis of right upper extremity Start: 02-20-2024 End: 02-20-2024 Patient encounter procedure Young Marsh DO Work Phone: Hematology/Oncology Start: 02-18-2024 End: 02-29-2024 ambulatory Mary Murillo PA-C Work Phone: Gastroenterology Comment on above: Swallowing issues Start: 02-15-2024 End: 02-15-2024 Subsequent hospital visit by physician Donta Layne MD Work Phone: [facility] Comment on above: Family history of br east cancer Start: 02-15-2024 End: 02-15-2024 ambulatory DONTA LAYNE [facility] Start: 02-13-2024 End: 02-13-2024 Chart abstracting Yeny Albright PhD Work Phone: General Surgery BMI PSY Start: 02-12-2024 End: 02-13-2024 ambulatory Mary Murillo PA-C Work Phone: Gastroenterology Comment on above: Swallowing issues Start: 02-06-2024 End: 02-06-2024 ambulatory AURY TRISTAN Facility:[facility] Start: 02-06-2024 End: 02-06-2024 Patient encounter procedure Stacy Segura MD Work Phone: Plastic Surgery Comment on above: Post-operative state (Primary Dx) Chronic low back kevon n without sciatica, unspecified back pain laterality (Primary Dx); Thoracic disc herniation; Facet arthropathy Start: 02-05-2024 End: 02-05-2024 Telephone encounter Chris Pacheco MD Work Phone: Hematology/Oncology Start: 02-04-2024 End: 02-04-2024 Orders Only Javi Stevens MD Work Phone: Cardiology Comment on above: Near syncope (Primar y Dx) Start: 02-01-2024 End: 02-01-2024 ambulatory JACK PRIEST Facility:[facility] Start: 02-01-2024 End: 02-01-2024 Patient encounter procedure Jacquelin Nassar APRN.CATHEAD WORKER Work Phone: [facility] Comment on above: Incisional irritatio n, initial encounter (Primary Dx) Start: 01-29-2024 ambulatory No Primary Car e Physician Facility:[facility] Start: 01-28-2024 End: 02-05-2024 Admission to same day surgery center Stacy Segura MD Work Phone: Plastic Surgery Comment on above: Post surgery message thread Start: 01-28-2024 End: 02-05-2024 ambulatory Stacy Segura MD Work Phone: Plastic Surgery Start: 01-25-2024 End: 01-25-2024 Patient encounter procedure Stacy Segura MD Work Phone: Plastic Surgery Comment on above: Post-operative state (Primary Dx); Macromastia Start: 01-25-2024 End: 01-25-2024 ambulatory STACY SEGURA Facility:[facility] Start: 01-24-2024 End: 01-24-2024 Telephone encounter Stacy Segura MD Work Phone: Plastic Surgery Comment on above: Patient Question Patient Update; miss ed call Start: 01-22-2024 ambulatory STACY SEGURA Facili ty:[facility] Start: 01-22-2024 End: 01-22-2024 Subsequent hospital visit by physician Stacy Segura MD Work Phone: Ambulatory Surgery Comment on above: Macromastia [N62] Start: 01-18-2024 End: 01-18-2024 ambulatory STACY SEGURA Facility:[facility] Start: 01-18-2024 Encounter for other preprocedural examination DINORAH JOE [facility] Start: 01-18-2024 End: 01-18-2024 [place] [id number] Pre Anesthesia Comment on above: Pre-op evaluation (P rimary Dx); Morbid obesity (HCC); Other migraine without status migrainosus, not intractable; Borderline personality disorder (HCC); Lung nodules; Blood clot in arm (HCC) Macromastia (Primary Dx); Chronic bilateral low back pain without sciatica; Neck pain; Intertrigo; Class 3 severe obesity without serious comorbidity with body mass index (BMI) of 40.0 to 44.9 in adult, unspecified obesity type (HCC); Pre-op evaluation Start: 01-18-2024 End: 01-18-2024 Preprocedural examination done [address] Work Phone: Start: 01-16-2024 End: 01-16-2024 Telephone encounter Stacy Segura MD Work Phone: Plastic Surgery Comment on above: Patient Question Start: 01-15-2024 End: 03-05-2024 Telephone encounter Stacy Segura MD Work Phone: Plastic Surgery Start: 01-14-2024 End: 01-15-2024 Admission to same day surgery center Stacy Segura MD Work Phone: Plastic Surgery Comment on above: Surgery question Start: 01-14-2024 End: 01-14-2024 Subsequent hospital visit by physician Matheus Llamas MD Work Phone: [facility] Comment on above: 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 Start: 01-14-2024 End: 01-15-2024 ambulatory Stacy Segura MD Work Phone: Plastic Surgery Start: 01-07-2024 End: 01-07-2024 Patient encounter procedure Tamara Ayalaelba PHARMACY CLERK.CATHEAD WORKER Work Phone: [facility] [place] Comment on above: Midline thoracic kleber k pain, unspecified chronicity (Primary Dx); Lumbar pain; Lumbar spondylosis Start: 01-07-2024 End: 01-07-2024 ambulatory TAMARA MAXWELL Facility:[facility] Start: 01-01-2024 End: 01-01-2024 ambulatory Mary Pichardojavon DAILEY-C Work Phone: Gastroenterology Comment on above: Dysphagia, unspecifi ed type (Primary Dx); Abdominal bloating Start: 01-01-2024 End: 01-01-2024 Telemedicine consultation with patient Mary Murillo ASIM-C Work Phone: Gastroenterology Start: 01-01-2024 End: 01-01-2024 ambulatory JACK PRIEST PHARMACY CLERK-CATHEAD WORKER Facility:B Start: 12-31-2023 End: 12-31-2023 ambulatory STACY SEGURA Facility:[facility] Start: 12-31-2023 End: 12-31-2023 Patient encounter procedure Stacy Segura MD Work Phone: Plastic Surgery Comment on above: Class 3 severe obesi ty without serious comorbidity with body mass index (BMI) of 40.0 to 44.9 in adult, unspecified obesity type (HCC) (Primary Dx); Macromastia; Chronic bilateral low back pain without sciatica; Neck pain; Intertrigo Start: 12-31-2023 Chart abstracting Stacy nicole MD Work Phone: Plastic Surgery Comment on above: PHOTOS TAKEN Start: 12-28-2023 End: 04-14-2024 Telephone encounter Aury Tristan DO Work Phone: Rheumatology Comment on above: Physical Therapy Start: 12-26-2023 End: 12-30-2023 ambulatory JACK PRIEST APRN-CATHEAD WORKER Facility:B Start: 12-26-2023 End: 12-30-2023 Outreach Lab JACK PRIEST PHARMACY CLERK-CATHEAD WORKER [facility] Start: 12-26-2023 Telephone encounter Marisol Hanna MD Work Phone: OB/Gynecology Start: 12-26-2023 End: 12-26-2023 ambulatory JACK PRIEST PHARMACY CLERK-CATHEAD WORKER Facility:[facility] Start: 12-25-2023 ambulatory MARILYN PIÑA Facilit y:[id number] Start: 12-25-2023 End: 12-25-2023 Subsequent [facility] Comment on above: Blood clot in arm (H CC) [I74.2] Start: 12-24-2023 End: 12-24-2023 ambulatory MARILYN PIÑA Facility:[facility] Start: 12-24-2023 End: 12-24-2023 Patient encounter procedure Marilyn Ayana PHARMACY CLERK.CNM Work Phone: OB/Gynecology Comment on above: Blood clot in arm (H CC) (Primary Dx); Nexplanon in place Start: 12-21-2023 End: 12-21-2023 ambulatory JACK PRIEST PHARMACY CLERK-CATHEAD WORKER Facility:[facility] Start: 12-21-2023 End: 12-21-2023 Patient encounter procedure JACK PRIEST PHARMACY CLERK-CATHEAD WORKER [facility] Start: 12-19-2023 End: 12-19-2023 ambulatory No Primary Care Physician Facility:[facility] Start: 12-19-2023 End: 12-19-2023 ambulatory No Primary Care Physician Facility:[facility] Start: 12-13-2023 End: 12-13-2023 ambulatory MARILYN PIÑA OB/Gynecology Start: 12-13-2023 End: 12-13-2023 Patient encounter procedure Whi Tech 1 [employer] OB/Gynecology Start: 12-11-2023 End: 12-11-2023 ambulatory No Primary Care Physician Facility:[facility] Start: 12-07-2023 End: 12-07-2023 ambulatory JULIET COREY Facility:[facility] Start: 12-07-2023 End: 12-07-2023 Patient encounter procedure Juliet Haury PHARMACY CLERK.CATHEAD WORKER Work Phone: OB/Gynecology Comment on above: Nexplanon insertion (Primary Dx) Start: 12-07-2023 End: 12-07-2023 ambulatory MARY ANANevin Facility:[facility] Start: 12-07-2023 End: 12-07-2023 Subsequent hospital visit by physician Sneha Goldberg Wstr Work Phone: Nuclear Medicine Comment on above: Nausea [R11.0] Start: 12-03-2023 End: 12-03-2023 ambulatory MARILYN PIÑA Facility:[facility] Start: 12-03-2023 End: 12-03-2023 ambulatory JACK PRIEST PHARMACY CLERK-CATHEAD WORKER Facility:[facility] Start: 12-03-2023 End: 12-07-2023 Patient encounter procedure JACK PRIEST PHARMACY CLERK-CATHEAD WORKER [facility] Comment on above: Menorrhagia with reg ular cycle (Primary Dx); Encounter for counseling regarding contraception Start: 11-26-2023 End: 06-23-2024 Telephone encounter Elroykerwin Nathen Tristan DO Work Phone: Rheumatology Comment on above: Physical Therapy Start: 11-26-2023 End: 11-26-2023 ambulatory No Primary Care Physician Facility:[facility] Start: 11-20-2023 End: 11-20-2023 ambulatory Marygraciela Murillo PA-C Work Phone: Gastroenterology Comment on above: Nausea (Primary Dx); Diarrhea, unspecified type Start: 11-20-2023 End: 11-20-2023 Telemedicine consultation with patient Mary Murillo PA-C Work Phone: Gastroenterology Start: 11-15-2023 End: 11-15-2023 ambulatory JACK PRIEST PHARMACY CLERK-CATHEAD WORKER Facility:[facility] Start: 11-09-2023 End: 11-09-2023 ambulatory No Primary Care Physician Facility:[facility] Start: 11-05-2023 End: 11-05-2023 Subsequent hospital visit by physician Mervat [facility] Work Phone: Radiology Comment on above: Pain of right hip [M 25.551] Start: 11-05-2023 End: 11-05-2023 ambulatory JACK PRIEST Facility:[facility] Start: 11-05-2023 End: 11-05-2023 Office outpatient visit 15 minutes Rebel Sneed PHARMACY CLERK.CATHEAD WORKER Work Phone: [facility] Comment on above: Pain of right hip (P rimary Dx) Start: 11-05-2023 Telephone encounter Rebel Soham strauss PHARMACY CLERK.CATHEAD WORKER Work Phone: [facility] Comment on above: Results Start: 10-29-2023 End: 11-02-2023 ambulatory JACK PRIEST PHARMACY CLERK-CATHEAD WORKER Facility: Start: 10-29-2023 End: 11-02-2023 Outreach Lab JACK PRIEST PHARMACY CLERK-CATHEAD WORKER [facility] Start: 10-16-2023 Telephone encounter Juliet DAILEY-C Work Phone: Orthopaedics Comment on above: Patient Update Start: 10-11-2023 Telephone encounter Fatoumata DAILEY-C Work Phone: Pre Anesthesia Comment on above: No Show Start: 10-11-2023 End: 10-11-2023 Office outpatient visit 10 minutes Lul Carranza APRN.CATHEAD WORKER Work Phone: Pulmonary Medicine Comment on above: Allergic rhinitis du e to animal hair and dander (Primary Dx) Start: 10-10-2023 End: 10-10-2023 Nursing evaluation of patient and report Nurse Gi Lab Gastroenterology Comment on above: Irritable bowel synd ramila with diarrhea Start: 10-08-2023 ambulatory Lul Carranza PHARMACY CLERK.CATHEAD WORKER Work Phone: Pulmonary Medicine Comment on above: Health issues Start: 10-08-2023 Telephone encounter Fatoumata saldaña PA-C Work Phone: Pre Anesthesia Comment on above: No Show Start: 10-06-2023 End: 10-06-2023 Patient encounter procedure Rula Joseph APRN.CATHEAD WORKER Work Phone: [facility] Comment on above: Blister (Primary Dx) Start: 10-05-2023 ambulatory Florentino Quintana MD, PhD Work Phone: Orthopaedics Start: 10-05-2023 End: 10-05-2023 Patient encounter procedure Juliet Mcmullen PA-C Work Phone: Orthopaedics Comment on above: Digital nerve lacera tion, finger, initial encounter (Primary Dx) Start: 10-01-2023 Orders Only Lul Carranza APRN.CATHEAD WORKER Work Phone: Pulmonary Medicine Comment on above: Vitamin D deficiency (Primary Dx) Start: 09-27-2023 Orders Only Lul Carranza APRN.CATHEAD WORKER Work Phone: Pulmonary Medicine Comment on above: Lung nodule (Primary Dx); Lung nodules Start: 09-27-2023 End: 09-27-2023 Office outpatient visit 15 minutes Lul Carranza APRN.CATHEAD WORKER Work Phone: Pulmonary Medicine Comment on above: Respiratory tract in fection (Primary Dx); Vitamin D deficiency Start: 09-24-2023 Telephone encounter Mary Esquivel abran DANGELO Work Phone: Gastroenterology Comment on above: Results Start: 09-21-2023 End: 09-21-2023 Emergency department patient visit MULTIMEDIA ASSISTANT-C Jack Priest NP Work Phone: [facility] Work Phone: Start: 09-21-2023 End: 09-21-2023 Patient encounter procedure Orlando Chopra PHARMACY CLERK.CATHEAD WORKER Work Phone: [facility] Comment on above: Abdominal pain, unsp ecified abdominal location (Primary Dx) Start: 09-14-2023 End: 09-14-2023 Orders Only Prakash Holland MD Work Phone: [facility] Comment on above: Dysphagia, unspecifi ed type [R13.10] Start: 09-05-2023 End: 09-05-2023 ambulatory MULTIMEDIA ASSISTANT-C Jack Priest MULTIMEDIA ASSISTANT Work Phone: [facility] Work Phone: Start: 09-05-2023 End: 09-05-2023 Patient encounter procedure MULTIMEDIA ASSISTANT-C Jack Priest MULTIMEDIA ASSISTANT Work Phone: [facility]-Laboratory, Specimen Work Phone: Start: 08-30-2023 End: 08-30-2023 ambulatory Mary Murillo PA-C Work Phone: Gastroenterology Comment on above: Dysphagia, unspecifi ed type (Primary Dx); Irritable bowel syndrome with diarrhea; Nausea; Abdominal bloating Start: 08-30-2023 End: 08-30-2023 Telemedicine consultation with patient Mary Murillo PA-C Work Phone: [facility] Start: 08-21-2023 ambulatory SHAUNA WEEKS ARJUN DAILEY-C Facility:B Start: 08-09-2023 End: 06-25-2024 Telephone encounter Aury Tristan DO Work Phone: Rheumatology Comment on above: Orders Start: 08-09-2023 End: 08-09-2023 ambulatory Adilson Yanez PT Work Phone: [facility] Physical Therapy Comment on above: Patellofemoral pain syndrome of both knees; Tendinopathy of gluteus medius Start: 08-06-2023 End: 08-06-2023 Patient encounter procedure Aury Tristan DO Work Phone: [facility] Comment on above: Atypical chest pain (Primary Dx); History of histoplasmosis; Lung nodules; Irritable bowel syndrome with diarrhea; Migraine without status migrainosus, not intractable, unspecified migraine type; Poor sleep; Patellofemoral pain syndrome of both knees; Tendinopathy of gluteus medius; Fibromyalgia Start: 08-03-2023 End: 08-03-2023 Subsequent hospital visit by physician [facility] Work Phone: Radiology Comment on above: Acute cough [R05.1] Start: 08-03-2023 End: 08-03-2023 Patient encounter procedure Orlando Chopra VALARIE.CATHEAD WORKER Work Phone: [facility] Comment on above: URI, acute (Primary Dx); Acute cough Start: 08-02-2023 Telephone encounter Lul Khan i PHARMACY CLERK.CATHEAD WORKER Work Phone: Pulmonary Medicine Comment on above: Patient Question Start: 07-30-2023 End: 07-30-2023 Patient encounter procedure MULTIMEDIA ASSISTANT-C Jack Priest MULTIMEDIA ASSISTANT Work Phone: [facility] Work Phone: Start: 07-28-2023 End: 07-28-2023 Patient encounter procedure Teofilo Coreas MD Work Phone: [facility] Comment on above: Foot pain, left (Catalina wero Dx); Chronic pain of left ankle Start: 07-19-2023 End: 07-19-2023 Subsequent hospital visit by physician [facility] Work Phone: Mammography Comment on above: Canceled (CC cx: Err or or Template Change) Start: 07-19-2023 End: 07-19-2023 ENT examination - NAD Adair Dawkins MD Work Phone: [facility] Work Phone: Start: 07-19-2023 End: 07-19-2023 Patient encounter procedure Adair Dawkins MD Work Phone: Otolaryngology Comment on above: Normal ENT exam (Catalina wero Dx); Chronic recurrent sinusitis Bilateral fibrocysti c breast changes (Primary Dx); Cyst of left breast; Breast pain; Family history of breast cancer- mother in 30's , MGM, PGM ; Excess weight Start: 07-13-2023 End: 07-13-2023 ambulatory JACK PRIEST APRN-CATHEAD WORKER Facility:B Start: 07-13-2023 End: 07-13-2023 Patient encounter procedure JACK PRIEST APRN-CATHEAD WORKER [facility] Start: 07-11-2023 End: 07-11-2023 ambulatory SHAUNA YAO PA-C Facility:B Start: 07-11-2023 End: 07-11-2023 Patient encounter procedure SHAUNA YAO PA-C [facility] Start: 07-10-2023 Telephone encounter Lucy [facility]AHAN [facility] Comment on above: Appointment Start: 06-28-2023 ambulatory SHAUNA DÍAZ PA-C Facility:B Start: 06-25-2023 Telephone encounter Lulelroy Khan i, APRN.CATHEAD WORKER Work Phone: Pulmonary Medicine Comment on above: Results Start: 06-25-2023 End: 06-25-2023 ambulatory Anshul Niro PA-C Work Phone: Pulmonary Medicine Comment on above: Atypical chest pain (Primary Dx) Start: 06-25-2023 End: 06-25-2023 Telemedicine consultation with patient Anshul Niro PA-C Work Phone: [facility] Start: 05-23-2023 End: 05-23-2023 Patient encounter procedure MULTIMEDIA ASSISTANT-C Jack Priest MULTIMEDIA ASSISTANT Work Phone: [facility] Work Phone: Start: 04-24-2023 ambulatory Lul Gillespiejonelle PHARMACY CLERK.CATHEAD WORKER Work Phone: Pulmonary Medicine Comment on above: Breast cyst Start: 04-23-2023 Documentation procedure [facility]addy [facility] Start: 04-23-2023 Letter encounter Mammography Coordinator [facility] Department Start: 04-23-2023 ambulatory LUL DILLON Facility:1 [id number] Start: 04-23-2023 End: 04-23-2023 Subsequent hospital visit by physician [facility] Comment on above: Mass of left breast, unspecified quadrant [N63.20] Start: 04-19-2023 ambulatory Merry Galvan Pulmonar y Medicine Start: 04-19-2023 Telephone encounter Lul Khan i VALARIE.CATHEAD WORKER Work Phone: Pulmonary Medicine Comment on above: Patient Question FILM REQ-CIUNI Start: 04-17-2023 End: 04-17-2023 Office outpatient visit 25 minutes Lul Carranza PHARMACY CLERK.CATHEAD WORKER Work Phone: Pulmonary Medicine Comment on above: Lung nodules (Primar y Dx); Moderate persistent asthma without complication Start: 04-15-[address] [facility] Faci lity:[facility] Start: 04-15-2023 End: 04-15-2023 Subsequent hospital visit by physician [facility] Radiology Comment on above: Moderate persistent asthma without complication [J45.40] Start: 04-04-2023 End: 04-05-[address] [facility] Facility:[facility] Start: 04-04-2023 End: 04-04-2023 Patient encounter procedure Jack Alvarez MD Work Phone: Pulmonary Medicine Comment on above: Moderate persistent asthma without complication (Primary Dx); Shortness of breath [R06.02]; Obesity without serious comorbidity, unspecified classification, unspecified obesity type [E66.9]; Lung nodules [R91.8]; Mold exposure [Z77.120] Start: 03-30-2023 End: 03-30-2023 ambulatory PAOLA VARGHESE PHARMACY CLERK-CATHEAD WORKER Facility:B Start: 03-30-2023 End: 03-30-2023 Patient encounter procedure [facility] PHARMACY CLERK-CATHEAD WORKER [facility] Start: 03-18-2023 End: 03-18-2023 Emergency department patient visit No Primary Care Physician [facility] Work Phone: Start: 03-09-2023 End: 03-09-2023 Emergency department patient visit No Primary Care Physician [facility] Work Phone: Start: 03-09-2023 End: 03-09-2023 ambulatory No Primary Care Physician [facility] Work Phone: Start: 03-09-2023 End: 03-09-2023 Patient encounter procedure No Primary Care Physician [facility] Work Phone: Start: 03-05-2023 End: 03-05-2023 ambulatory SHAUNA YAO PA-C Facility:B Start: 03-05-2023 End: 03-05-2023 Patient encounter procedure SHAUNA YAO PA-C [facility] Start: 03-05-2023 End: 03-05-2023 Patient encounter procedure No Primary Care Physician [facility] Work Phone: Start: 03-05-2023 End: 03-05-2023 ambulatory No Primary Care Physician [facility] Work Phone: Start: 03-05-2023 End: 03-05-2023 Discharged Recurring No Primary Care Physician [facility] Work Phone: Start: 02-28-2023 End: 02-28-2023 ambulatory JACK PRIEST PHARMACY CLERK-CATHEAD WORKER Facility:B Start: 02-24-2023 End: 02-24-2023 Emergency department patient visit No Primary Care Physician [facility] Work Phone: Start: 01-30-2023 End: 01-30-2023 Patient encounter procedure No Primary Care Physician [facility] Work Phone: Start: 01-18-2023 End: 01-18-2023 Patient encounter procedure No Primary Care Physician [facility] Work Phone: Start: 01-17-2023 End: 01-17-2023 Patient encounter procedure No Primary Care Physician [facility] Work Phone: Start: 01-03-2023 Registered Recurring Out [facility] Doctor [facility] Work Phone: Start: 01-03-2023 End: 01-03-2023 Patient encounter procedure Out [facility] Work Phone: Start: 12-30-2022 End: 12-30-2022 ambulatory [place] Town [facility] Work Phone: Start: 12-30-2022 End: 12-30-2022 Patient encounter procedure Out [facility] Work Phone: Start: 12-27-2022 End: 12-27-2022 Patient encounter procedure Out [facility] Work Phone: Start: 12-13-2022 End: 12-13-2022 Patient encounter procedure Out [facility] Work Phone: Start: 12-06-2022 End: 12-06-2022 Patient encounter procedure Out [facility] Work Phone: Start: 12-01-2022 End: 12-01-2022 ambulatory Out of Town [facility] Work Phone: Start: 12-01-2022 End: 12-01-2022 Patient encounter procedure Out [facility] Work Phone: Start: 11-23-2022 End: 11-23-2022 ambulatory Out of Town [facility] Work Phone: Start: 11-23-2022 End: 11-23-2022 Patient encounter procedure Out [facility] Start: 11-14-2022 End: 11-14-2022 Patient encounter procedure Out [facility] Work Phone: Start: 10-14-2022 End: 10-14-2022 Emergency department patient visit Out [facility] Start: 10-06-2022 End: 10-06-2022 Emergency department patient visit Out [facility] Start: 09-29-2022 ambulatory Oriana Claudia DO Comp rehensive Internal Med Start: 09-22-2022 End: 09-22-2022 Emergency department patient visit Out [facility] Start: 09-15-2022 End: 09-15-2022 Patient encounter procedure Out Town Doctor [facility] Start: 05-16-2022 End: 05-16-2022 [facility] Start: 03-23-2022 ambulatory Teofilo mena MD Work Phone: [facility] Start: 03-23-2022 Letter encounter Teofilo muniz MD Work Phone: [facility] Comment on above: Letter Procedures Date Procedure Procedure Detail Performing Clinician Start: 04-07-2024 Ct thorax w/o contrast material Lul sal PHARMACY CLERK.CATHEAD WORKER Work Phone: Start: 02-27-2024 Antibody screen DINORAH JOE Comment on above: Order Comment: Specimen Type: BLOOD SPEC IMENOrdering Facility: [facility] Address: [address] [place] [address] Performed By: #### T SCR ####CC MAIN BLOOD BANKCLIA [id number] [place] [address] [place] Start: 02-26-2024 STREP A MOLECULAR (POC) Tracy Giraldo PHARMACY CLERK.CATHEAD WORKER Work Phone: Start: 12-25-2023 Dup-scan xtr veins unilateral/limited study Marilyn Piña PHARMACY CLERK.CNM Work Phone: Start: 12-13-2023 Us pelvic nonobstetric real-time image complete Marilyn Piña PHARMACY CLERK.CNM Work Phone: Start: 12-07-2023 Gastric emptying imaging study Mary Wier hdomi PA-C Work Phone: Start: 12-07-2023 UA DIP,URINE HCG (POC) Juliet Corey PHARMACY CLERK.CATHEAD WORKER Work Phone: Start: 11-05-2023 Radex hip unilateral with pelvis 2-3 views Rebel Sneed PHARMACY CLERK.CATHEAD WORKER Work Phone: Start: 10-10-2023 Breath hydrogen/methane test Mary Mukhd nitza PA-C Work Phone: Start: 09-14-2023 Level iv surg pathology gross&microscopic exam Prakash Holland MD Work Phone: Start: 09-14-2023 Esophagogastroduodenoscopy transoral diagnostic Mary BRADLEYC Work Phone: Start: 08-03-2023 COVID & INFLUENZA A/B & RSV NAAT, ROUTINE Orlando Chopra PHARMACY CLERK.CATHEAD WORKER Work Phone: Start: 08-03-2023 Radiologic exam chest 2 views Orlando smith PHARMACY CLERK.CATHEAD WORKER Work Phone: Start: 08-03-2023 INFLUENZA A&B MOLECULAR (POC) Orlando smith PHARMACY CLERK.CATHEAD WORKER Work Phone: Start: 04-23-2023 Us breast uni real time with image limited Lul Gillespiejonelle PHARMACY CLERK.CATHEAD WORKER Work Phone: Start: 03-18-2023 Plain chest X-ray No Primary Care Physician Start: 03-09-2023 Urine culture No Primary Care Physician Start: 02-24-2023 Plain chest X-ray No Primary Care Physician Start: 12-30-2022 MRI of joint of lower extremity Out Town Doctor Start: 12-01-2022 Radiography of ankle Out Town Doctor Start: 11-14-2022 Radiologic examination of knee Out Town Doctor Start: 11-14-2022 Radiography of ankle Out Town Doctor Start: 11-14-2022 X-ray of both feet Out Town Doctor Start: 10-06-2022 X-ray of lumbar spine, two or three views Out Town Doctor Start: 05-21-2018 Cholecystectomy SHAUNA KENNETHAMRITAHENNY DAILEY-C Bone structure of mi ddle phalanx of ring finger of left hand ARIEL WHITE MD History of reduction of breast S /P bilateral breast reduction JACK PRIEST PHARMACY CLERK-CATHEAD WORKER Hysterectomy JACK PATRICK PHARMACY CLERK-CATHEAD WORKER Reduction mammaplasty RUBÉN WHITE MD Specimen from lung o btained by biopsy (specimen) JACK CEM WRIGHTN-CATHEAD WORKER Plan of Treatment Date Care Activity Detail Author Start: 09-30-2033 Urine microalbumin profile DTaP,Tdap,Td Vaccine (2 - Td or Tdap) [facility] Start: 03-20-2025 End: 03-20-2025 Follow-up encounter 03/20/2025 9:05 AM EDT [facility] [address] [place] [address] Pierce Proctor MD [address] [place] [address] Pre Diabetes 6 months follow up, former patient of Dr. Khalil, Endocrinology Comment on above: Pre Diabetes 6 months follow up, former patient of Dr. Khalil, Start: 01-19-2025 Influenza vaccination Influenza Vaccine (Season Ended) [facility] Start: 10-29-2024 End: 10-29-2024 Patient encounter procedure 10/29/2024 9:30 AM EDT Office Visit Infectious Disease [address] [facility] [address] [place] [address] Kraig Walters MD [address] [place] [address] [facility] Comment on above: [facility] Start: 09-15-2024 End: 12-15-2024 C peptide [Mass/volume] in Serum or Plasma C-PEPTIDE BLD Lab Routine Prediabetes Expected: 09/15/2024 (Approximate), Expires: 12/15/2024 [facility] Work Phone: Comment on above: Expected: 09/15/2024 (Approximate), Expi res: 12/15/2024 Start: 09-15-2024 End: 12-15-2024 Glutamate decarboxylase 65 Ab [Units/volume] in Serum GLUTAMIC AC DECARBOXYLASE AB Lab Routine Prediabetes Expected: 09/15/2024, Expires: 12/15/2024 [facility] Comment on above: Expected: 09/15/2024, Expires: Start: 09-15-2024 End: 12-15-2024 INSULINOMA ASSOCIATED ANTIBODY 2 INSULINOMA ASSOCIATED ANTIBODY 2 Lab Routine Prediabetes Expected: 09/15/2024, Expires: 12/15/2024 [facility] Comment on above: Expected: 09/15/2024, Expires: Start: 09-15-2024 End: 12-15-2024 ZINC TRANSPORTER 8 ANTIBODY ZINC TRANSPORTER 8 ANTIBODY Lab Routine Prediabetes Expected: 09/15/2024, Expires: 12/15/2024 [facility] Comment on above: Expected: 09/15/2024, Expires: Start: 09-15-2024 End: 09-15-2024 Patient encounter procedure 09/15/2024 8:00 AM EDT Office Visit Endocrinology [address] [place] [address] Malachi Khalil MD [address] [place], [place] [id number] metabolic syndrome Endocrinology Comment on above: metabolic syndrome Start: 09-12-2024 End: 12-12-2024 C reactive protein [Mass/volume] in Serum or Plasma C-REACTIVE PROTEIN Lab Routine Necrotizing granulomatous inflammation (HCC) Histoplasmosis Chronic cough Expected: 09/12/2024, Expires: 12/12/2024 [facility] Comment on above: Expected: 09/12/2024, Expires: Start: 09-12-2024 End: 12-12-2024 Comprehensive metabolic 2000 panel - Serum or Plasma COMPREHENSIVE METABOLIC PANEL Lab Routine Necrotizing granulomatous inflammation (HCC) Histoplasmosis Chronic cough Expected: 09/12/2024 (Approximate), Expires: 12/12/2024 [facility] Comment on above: Expected: 09/12/2024 (Approximate), Expi res: 12/12/2024 Start: 09-12-2024 End: 12-12-2024 Erythrocyte sedimentation rate SEDIMENTATION RATE, WESTERGREN Lab Routine Necrotizing granulomatous inflammation (HCC) Histoplasmosis Chronic cough Expected: 09/12/2024, Expires: 12/12/2024 [facility] Comment on above: Expected: 09/12/2024, Expires: Start: 09-12-2024 End: 12-12-2024 HISTOPLASMA AB CF HISTOPLASMA AB CF Lab Routine Necrotizing granulomatous inflammation (HCC) Histoplasmosis Chronic cough Expected: 09/12/2024, Expires: 12/12/2024 [facility] Comment on above: Expected: 09/12/2024, Expires: Start: 09-12-2024 End: 12-12-2024 ITRACONAZOLE BLOOD ITRACONAZOLE BLOOD Lab Routine Necrotizing granulomatous inflammation (HCC) Histoplasmosis Chronic cough Expected: 09/12/2024, Expires: 12/12/2024 [facility] Work Phone: Comment on above: Expected: 09/12/2024, Expires: Start: 09-12-2024 End: 09-12-2024 ambulatory 09/12/2024 9:00 AM EDT [facility] Disease [address] [place] [address] Kraig Walters MD [address] [place] [address] [facility] Comment on above: [facility] Start: 09-01-2024 End: 12-01-2024 Comprehensive metabolic 2000 panel - Serum or Plasma COMPREHENSIVE METABOLIC PANEL Lab Routine Histoplasmosis Expected: 09/01/2024, Expires: 12/01/2024 [facility] Comment on above: Expected: 09/01/2024, Expires: Start: 09-01-2024 End: 12-01-2024 ITRACONAZOLE BLOOD ITRACONAZOLE BLOOD Lab Routine Histoplasmosis Expected: 09/01/2024, Expires: 12/01/2024 [facility] Work Phone: Comment on above: Expected: 09/01/2024, Expires: Start: 08-28-2024 End: 08-28-2024 Patient encounter procedure 08/28/2024 3:30 PM EDT Office Visit Infectious Disease [address] [phone] Sharan Adams MD [address] [place], [place] [id number] Histoplasmosis [B39.9]. Liver disease [K76.9]. Obesity, Class III, BMI 40-49.9 (morbid obesity) (HCC) [E66.01]. Chronic cough [R05.3] Infectious Disease Comment on above: Histoplasmosis [B39.9]. Liver disease [K 76.9]. Obesity, Class III, BMI 40-49.9 (morbid obesity) (HCC) [E66.01]. Chronic cough [R05.3] Start: 08-13-2024 End: 11-12-2024 C reactive protein [Mass/volume] in Serum or Plasma [facility] Comment on above: Expected: 08/13/2024, Expires: Start: 08-13-2024 End: 11-12-2024 CBC W Auto Differential panel - Blood COMPLETE BLOOD COUNT AND DIFFERENTIAL Lab Routine Histoplasmosis Medication monitoring encounter Expected: 08/13/2024 (Approximate), Expires: 11/12/2024 [facility] Work Phone: Comment on above: Expected: 08/13/2024 (Approximate), Expi res: 11/12/2024 Start: 08-13-2024 End: 11-12-2024 Comprehensive metabolic 2000 panel - Serum or Plasma [facility] Comment on above: Expected: 08/13/2024 (Approximate), Expi res: 11/12/2024 Start: 08-13-2024 End: 11-12-2024 Ferritin [Mass/volume] in Serum or Plasma [facility] Comment on above: Expected: 08/13/2024, Expires: Start: 08-13-2024 End: 11-12-2024 ITRACONAZOLE BLOOD ITRACONAZOLE BLOOD Lab Routine Histoplasmosis Medication monitoring encounter Expected: 08/13/2024 (Approximate), Expires: 11/12/2024 [facility] Comment on above: Expected: 08/13/2024 (Approximate), Expi res: 11/12/2024 Start: 07-30-2024 End: 10-29-2024 Cryptococcus sp Ag [Presence] in Unspecified specimen by Latex agglutination CRYPTOCOCCUS ANTIGEN SCREEN AND TITER BY LFA Microbiology Routine Histoplasmosis Necrotizing granuloma present on biopsy of lymph node Fever, unspecified Expected: 07/30/2024, Expires: 10/29/2024 [facility] Work Phone: Comment on above: Expected: 07/30/2024, Expires: Start: 07-30-2024 End: 07-30-2024 Follow-up encounter 07/30/2024 10:15 AM EDT [facility] [address] [place] [id number] [place] [address] [place] [address] Follow Up Histoplasmosis Pulmonary Medicine Comment on above: Follow Up Histoplasmosis Start: 07-24-2024 End: 07-24-2024 Patient encounter procedure 07/24/2024 2:15 PM EST Office Visit Pulmonary Medicine [address] [place] [address] [place] [address] [place] [address] [facility] follow up pnemonia Pulmonary Medicine Comment on above: [facility] follow up pnemon ia Start: 07-17-2024 End: 07-17-2024 ambulatory 07/17/2024 9:30 AM EST Results Only Cardiology [address] [place] [address] EKG Cardiology Comment on above: EKG Start: 07-17-2024 End: 07-17-2024 Patient encounter procedure Cardiology Comment on above: Near syncope EKG Start: 07-14-2024 End: 07-14-2024 ambulatory 07/14/2024 8:45 AM EST [facility] [address] [place] [address] [place] [address] [place] [address] Test results Pulmonary Medicine Comment on above: Test results Start: 07-02-2024 End: 07-02-2024 Patient encounter procedure 07/02/2024 2:15 PM EST Office Visit Pulmonology [facility] [address] [place], [place] [phone] [place] [address] [place] [address] Lung nodules .PCP wants bronchoscopy done. Pulmonology [facility] Comment on above: Lung nodules .PCP wants bronchoscopy don e. Start: 07-02-2024 End: 10-01-2024 Comprehensive metabolic 2000 panel - Serum or Plasma [facility] Work Phone: Comment on above: Expected: 07/02/2024, Expires: Start: 04-23-2024 End: 04-23-2024 Patient encounter procedure [facility] Comment on above: Associated Diagnoses Start: 04-21-2024 End: 04-21-2024 Patient encounter procedure 04/21/2024 3:20 PM EST Office Visit [facility] General Rheumatology and Arthritis [address] [facility] [address] [place], [place] [phone] Toyin Kay MD [address] [facility] [address] [place] [address] Arthritis (RIGO) [facility] Rheumatology and Arthritis Comment on above: Arthritis (RIGO) Start: 04-14-2024 End: 04-14-2024 ambulatory 04/14/2024 3:30 PM EST Visit (SP) Office Hematology/Oncology [address] [place], [place] [phone] Young Marsh DO [address] [place], [place] [phone] OV* Hematology/Oncology Comment on above: OV* Start: 04-14-2024 End: 07-14-2024 Ferritin [Mass/volume] in Serum or Plasma [facility] Comment on above: Expected: 04/14/2024, Expires: Start: 04-14-2024 End: 07-14-2024 Iron and Iron binding capacity panel - Serum or Plasma [facility] Work Phone: Comment on above: Expected: 04/14/2024, Expires: Start: 04-09-2024 End: 07-09-2024 Bacteria identified in Unspecified specimen by Respiratory culture RESPIRATORY CULTURE AND STAIN Microbiology Routine Chronic cough Expected: 04/09/2024 (Approximate), Expires: 07/09/2024 [facility] Work Phone: Comment on above: Expected: 04/09/2024 (Approximate), Expi res: 07/09/2024 Start: 04-08-2024 End: 04-08-2024 ambulatory 04/08/2024 8:30 AM EST [facility] [address] [place] [address] Lul Carranza, PHARMACY CLERK.CATHEAD WORKER [address] [place] [address] Lung Nodule F/U Pulmonary Medicine Comment on above: Lung Nodule F/U Start: 04-07-2024 End: 04-07-2024 Patient encounter procedure 04/07/2024 8:00 AM EST Appointment Cat Scan [address] [place] [address] Lung nodules [R91.8] Cat Scan Comment on above: Lung nodules [R91.8] Start: 03-29-2024 End: 10-26-2024 CT Chest WO contrast CT CHEST WO IVCON Radiology Routine Lung nodules Expected: 03/29/2024 (Approximate), Expires: 10/26/2024 [facility] Work Phone: Comment on above: Expected: 03/29/2024 (Approximate), Expi res: 10/26/2024 Start: 03-07-2024 End: 03-07-2024 Patient encounter procedure Radiology Comment on above: XR MODIFIED BARIUM SWALLOW W SPEECH THER APY Start: 02-27-2024 End: 02-27-2024 ambulatory 02/27/2024 8:15 AM EDT Results Only Lorena Quiñones [facility] [address] [place] [address] LABS - SPECIAL CHARGE MANAGER Lorena Valdiviawn [facility] Comment on above: LABS - SPECIAL CHARGE MANAGER Start: 02-26-2024 End: 02-26-2024 ambulatory 02/26/2024 8:15 AM EDT Results Only Lorena Quiñones [facility] [address] [place] [address] LABS - SPECIAL CHARGE MANAGER Lorena Valdiviawn [facility] Comment on above: LABS - SPECIAL CHARGE MANAGER Start: 02-22-2024 End: 02-22-2024 Patient encounter procedure 02/22/2024 9:30 AM EDT Office Visit Plastic Surgery [address] [address] Stacy Segura MD [address] [place] [address] post op Plastic Surgery Comment on above: post op Start: 02-20-2024 End: 05-21-2024 HYPERCOAG DIAG PNL HYPERCOAG DIAG PNL Lab Routine Superficial thrombophlebitis of right upper extremity Expected: 02/20/2024, Expires: 05/21/2024 [facility] Comment on above: Expected: 02/20/2024, Expires: Start: 02-20-2024 End: 05-21-2024 TYPE + SCREEN TYPE + SCREEN Blood Bank Routine Menorrhagia with irregular cycle Expected: 02/20/2024, Expires: 05/21/2024 [facility] Work Phone: Comment on above: Expected: 02/20/2024, Expires: Start: 02-20-2024 End: 05-21-2024 VON WILLEBRAND DX PANEL VON WILLEBRAND DX PANEL Lab Routine Menorrhagia with irregular cycle Expected: 02/20/2024, Expires: 05/21/2024 [facility] Comment on above: Expected: 02/20/2024, Expires: Start: 02-20-2024 End: 02-20-2024 ambulatory 02/20/2024 10:30 AM EDT Visit (SP) Office Hematology/Oncology [address] [place] [address] Young Marsh DO [address] [place] [address] ref provider Jack Priest for dx Superficial Thrombophlebitis of arm* PT REQUESTED DAY Hematology/Oncology Comment on above: 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 Thrombophlebitis of arm* PT REQUESTED DAY Start: 02-14-2024 End: 02-14-2024 Patient encounter procedure 02/14/2024 2:30 PM EDT Office Visit Cardiology [address] [phone] Javi Stevens MD [address] [place] [address] Near syncope Cardiology Comment on above: Near syncope Start: 02-14-2024 End: 02-14-2024 ambulatory 02/14/2024 2:00 PM EDT Results Only Cardiology [address] [phone] Near syncope Cardiology Comment on above: Near syncope Start: 02-10-2024 Subsequent hospital visit by physician 02/10/2024 Hospital Encounter Surgery Center [address] [address] Stacy Segura MD [address] [place] [address] Macromastia [N62] Surgery Center Comment on above: Macromastia [N62] Start: 02-06-2024 End: 02-06-2024 Patient encounter procedure Rhe[facility]ology [facility] Comment on above: Arthritis post op Start: 01-31-2024 End: 01-31-2024 Patient encounter procedure 01/31/2024 3:20 PM EDT Office Visit Breast Center [address] [place] [address] [place] [address] [place] [address] 6 Month Clinical Only Breast Center Comment on above: 6 Month Clinical Only Start: 01-30-2024 End: 01-30-2024 Patient encounter procedure 01/30/2024 10:00 AM EDT Office Visit Plastic Surgery [address] [place] [address] Stacy Segura MD [address] [place] [address] POST OP SURG 01/21 Plastic Surgery Comment on above: POST OP SURG 01/21 Start: 01-25-2024 End: 01-25-2024 Patient encounter procedure 01/25/2024 2:45 PM EDT Office Visit Plastic Surgery [address] [address] Stacy Segura MD [address] [place] [address] post op Plastic Surgery Comment on above: post op Start: 01-25-2024 End: 01-25-2024 Patient encounter procedure 01/25/2024 10:30 AM EDT Office Visit Plastic Surgery [address] [address] Stacy Segura MD [address] [place] [address] post op Plastic Surgery Comment on above: post op Start: 01-24-2024 End: 01-24-2024 Clinical Support 01/24/2024 11:00 AM EDT Clinical Support [place] [address] Lisa Almanzar, [place] [address] Genetics - [place] Start: 01-23-2024 End: 01-23-2024 Patient encounter procedure 01/23/2024 2:00 PM EDT Office Visit Plastic Surgery [address] [place] [address] Stacy Segura MD [address] [place] [address] POST OP SURG 01/21 Plastic Surgery Comment on above: POST OP SURG 01/21 Start: 01-22-2024 End: 01-22-2024 Admission to same day surgery center 01/22/2024 11:05 AM EDT - 01/22/2024 2:40 PM EDT Surgery Ambulatory Surgery [address] [place] [address] Stacy Segura MD [address] [place] [address] REDUCTION BREAST BILATERAL Ambulatory Surgery Comment on above: REDUCTION BREAST BILATERAL Start: 01-22-2024 End: 01-22-2024 Reduction mammaplasty REDUCTION BREAST BILATERAL Macromastia Chronic bilateral low back pain without sciatica Neck pain Intertrigo 01/22/2024 11:05 AM EDT [facility] Start: 01-22-2024 Subsequent hospital visit by physician 01/22/2024 11:05 AM EDT Hospital Encounter Ambulatory Surgery [address] [place] [address] Stacy Segura MD [address] [place] [address] Macromastia [N62] Ambulatory Surgery Comment on above: Macromastia [N62] Start: 01-22-2024 End: 01-22-2024 Patient encounter procedure 01/22/2024 8:30 AM EDT Office Visit Plastic Surgery [address] [facility] [address] [place] [address] Rehan Campbell MD [address] [facility] [address] [place], [place] [id number] New Patient - Breast Reduction (LRT) Plastic Surgery Comment on above: New Patient - Breast Reduction (LRT) Start: 01-22-2024 End: 01-22-2024 Admission to same day surgery center 01/22/2024 7:30 AM EDT - 01/22/2024 10:50 AM EDT Surgery Ambulatory Surgery [address] [place] [address] Stacy Segura MD [address] [place] [address] REDUCTION BREAST BILATERAL Ambulatory Surgery Comment on above: REDUCTION BREAST BILATERAL Start: 01-22-2024 End: 01-22-2024 Reduction mammaplasty REDUCTION BREAST BILATERAL Macromastia Chronic bilateral low back pain without sciatica Neck pain Intertrigo 01/22/2024 7:30 AM EDT [facility] Start: 01-22-2024 Subsequent hospital visit by physician 01/22/2024 7:30 AM EDT Hospital Encounter Ambulatory Surgery [address] [place] [address] Stacy Segura MD [address] [place] [address] Macromastia [N62] Ambulatory Surgery Comment on above: Macromastia [N62] Start: 01-20-2024 COVID-19 ( season) COVID-19 ( season) [facility] Start: 01-20-2024 Covid-19 Vaccine ( season) Covid-19 Vaccine ( season) [facility] Start: 01-20-2024 Covid-19 Vaccine ( season) Covid-19 Vaccine ( season) [facility] Start: 01-20-2024 FLU (#1) FLU (#1) [facility] Start: 01-20-2024 Influenza vaccination [facility] Start: 01-18-2024 End: 01-18-2024 Patient encounter procedure 01/18/2024 1:30 PM EDT Office Visit Plastic Surgery [address] [address] Stacy Segura MD [address] [place] [address] CONSENT Plastic Surgery Comment on above: CONSENT Start: 01-18-2024 End: 01-18-2024 Anesthesia consultation 01/18/2024 9:20 AM EDT PAT Pre Anesthesia [address] [place] [address] 1, Pacc Whitney [address] [place] [address] preop surg 01/21 Pre Anesthesia Comment on above: preop surg 01/21 Start: 01-14-2024 End: 01-14-2024 Patient encounter procedure 01/14/2024 1:00 PM EDT Office [facility] [address] [place] [address] Tamara Maxwell, PHARMACY CLERK.CATHEAD WORKER [address] [place] [address] New Pt: Herniated bulge in thoracic back and lumbar pain [facility] Comment on above: New Pt: Herniated bulge in thoracic back and lumbar pain Start: 01-07-2024 End: 01-07-2024 Patient encounter procedure 01/07/2024 1:00 PM EDT Office Visit [facility] [address] [place] [address] Tamara Maxwell, PHARMACY CLERK.CATHEAD WORKER [address] [place] [address] New Pt: Herniated bulge in thoracic back and lumbar pain [facility] Comment on above: New Pt: Herniated bulge in thoracic back and lumbar pain Start: 01-01-2024 End: 01-01-2024 ambulatory 01/01/2024 2:30 PM EDT [facility] [address] [address] Mary Muirllo PA-C [address] [place] [address] Irritable bowel syndrome with diarrhea Gastroenterology Comment on above: Irritable bowel syndrome with diarrhea Start: 12-25-2023 End: 12-25-2023 Patient encounter procedure 12/25/2023 8:15 AM EDT Appointment [facility] [address] [place] [address] Blood clot in arm (HCC) [I74.2] [facility] Comment on above: Blood clot in arm (HCC) [I74.2] Start: 12-11-2023 End: 12-11-2023 ambulatory 12/11/2023 1:30 PM EDT Procedure OB/Gynecology [address] [place] [address] Menorrhagia with regular cycle [N92.0] OB/Gynecology Comment on above: Menorrhagia with regular cycle [N92.0] Start: 12-07-2023 End: 12-07-2023 Patient encounter procedure Internal Medicine [facility] Comment on above: estab care Nausea [R11.0] Start: 12-03-2023 End: 12-03-2023 Patient encounter procedure 12/03/2023 2:00 PM EDT Office Visit OB/Gynecology [address] [place] [address] Marilyn Piña APRN.CNM [address] [place] [address] vaginal pain OB/Gynecology Comment on above: vaginal pain Start: 12-03-2023 End: 12-02-2024 US Pelvis PELVIC US WHI Anc Imaging Routine Menorrhagia with regular cycle Expected: 12/03/2023, Expires: 12/02/2024 [facility] Work Phone: Comment on above: Expected: 12/03/2023, Expires: Start: 10-29-2023 End: 10-29-2023 Patient encounter procedure Orthopaedics Comment on above: post op DOS 10/15 LT RING FINGER Start: 10-16-2023 End: 10-16-2023 Suture digital nerve hand/foot 1 nerve SUTURE NERVE DIGITAL, HAND, ONE NERVE Digital nerve laceration, finger, initial encounter 10/16/2023 12:20 PM EDT [facility] Start: 10-16-2023 End: 10-16-2023 Admission to same day surgery center 10/16/2023 7:45 AM EDT - 10/16/2023 9:00 AM EDT Surgery Ambulatory Surgery [address] [place] [address] Florentino Quintana MD, PhD [address] [place] [address] SUTURE NERVE DIGITAL, HAND, ONE NERVE Ambulatory Surgery Comment on above: SUTURE NERVE DIGITAL, HAND, ONE NERVE Start: 10-16-2023 Subsequent hospital visit by physician 10/16/2023 7:45 AM EDT Hospital Encounter Ambulatory Surgery [address] [place] [address] Florentino Quintana MD, PhD [address] [place] [address] Digital nerve laceration, finger, initial encounter [S64.40XA] Ambulatory Surgery Comment on above: Digital nerve laceration, finger, initia l encounter [S64.40XA] Start: 10-16-2023 End: 10-16-2023 Suture digital nerve hand/foot 1 nerve SUTURE NERVE DIGITAL, HAND, ONE NERVE Digital nerve laceration, finger, initial encounter 10/16/2023 7:45 AM EDT [facility] Start: 10-12-2023 End: 10-12-2023 Patient encounter procedure 10/12/2023 9:10 PM EDT Office Visit Neurology [address] [place] [address] Poor sleep [Z72.820] Neurology Comment on above: Poor sleep [Z72.820] Start: 10-11-2023 End: 10-11-2023 Anesthesia consultation 10/11/2023 1:20 PM EDT PAT Pre Anesthesia [address] [id number] VIRTUAL VISIT Pre Anesthesia Comment on above: VIRTUAL VISIT Start: 10-11-2023 End: 10-11-2023 Follow-up encounter 10/11/2023 10:00 AM EDT [facility] [address] [place] [address] Lul Carranza APRN.CATHEAD WORKER [address] [place] [address] Lung Follow Up Pulmonary Medicine Comment on above: Lung Follow Up Start: 10-10-2023 End: 10-10-2023 Nursing evaluation of patient and report 10/10/2023 7:30 AM EDT Nurse Visit Gastroenterology [address] [address] Lab, Nurse Gi I [address] [place] [address] Test, Nurse Gi Breath [address] [place] [address] Irritable bowel syndrome with diarrhea [K58.0] Gastroenterology Comment on above: Irritable bowel syndrome with diarrhea [ K58.0] Start: 10-09-2023 End: 10-09-2023 Patient encounter procedure 10/09/2023 10:00 AM EDT Office Visit Internal Medicine [facility] [address] [place] [address] Rc Landrum DO [address] [place] [address] Establish Care Internal Medicine [facility] Comment on above: Establish Care Start: 10-05-2023 End: 10-05-2023 Patient encounter procedure 10/05/2023 8:00 AM EDT Office Visit Orthopaedics [address] [address] Juliet Mcmullen PA-C [address] [place], [place] [id number] left ring finger mass Orthopaedics Comment on above: left ring finger mass Start: 09-27-2023 End: 12-27-2023 25-hydroxyvitamin D3 [Mass/volume] in Serum or Plasma VITAMIN D 25 HYDROXY Lab Routine Vitamin D deficiency Expected: 09/27/2023, Expires: 12/27/2023 [facility] Work Phone: Comment on above: Expected: 09/27/2023, Expires: 4 Start: 09-21-2023 [facility] Start: 09-21-2023 [facility] Start: 05-21-2023 Behavioral Health Screening Behavioral Health Screening [facility] Start: 05-21-2023 Depression Assessment Depression Assessment [facility] Start: 04-04-2023 End: 07-04-2023 [employer] [facility] Work Phone: Comment on above: Expected: 04/04/2023, Expires: 4 Start: 04-04-2023 End: 07-04-2023 [employer] [facility] Work Phone: Comment on above: Expected: 04/04/2023, Expires: Start: 04-04-2023 End: 07-04-2023 [employer] [facility] Work Phone: Comment on above: Expected: 04/04/2023, Expires: 4 Start: 04-04-2023 End: 07-04-2023 Aspergillus fumigatus IgE Ab [Units/volume] in Serum [facility] Work Phone: Comment on above: Expected: 04/04/2023, Expires: Start: 04-04-2023 End: 07-04-2023 IgE [Units/volume] in Serum or Plasma [facility] Work Phone: Comment on above: Expected: 04/04/2023, Expires: Start: 03-09-2023 [facility] Start: 02-24-2023 [facility] Start: 01-19-2023 COVID-19 ( season) COVID-19 () [facility] Start: 01-19-2023 Covid-19 Vaccine ( season) Covid-19 Vaccine ( season) [facility] Start: 01-19-2023 Influenza vaccination Influenza Vaccine (#1) [facility] Start: 01-18-2023 Patient referral [facility] Work Phone: Start: 05-21-2022 Depression Assessment Depression Assessment [facility] Start: 01-19-2022 Influenza vaccination INFLUENZA (#1) [facility] Start: 05-21-2021 DEPRESSION ASSESSMENT DEPRESSION ASSESSMENT [facility] Start: 2020 Microscopic observation [Identifier] in Cervix by Cyto stain Pap Smear [facility] Start: 2020 PAP TESTING PAP TESTING [facility] Start: 2020 Screening for malignant neoplasm of cervix [facility] Start: 2018 Hepatitis B (1 of 3 - 19+ 3-dose series) Hepatitis B (1 of 3 - 19+ 3-dose series) [facility] Start: 2018 Hepatitis B Vaccine (1 of 3 - 19+ 3-dose series) Hepatitis B Vaccine (1 of 3 - 19+ 3-dose series) [facility] Start: 2018 Pneumococcal vaccination Pneumococcal Vaccine (1 of 2 - PCV) [facility] Start: 2018 Urine microalbumin profile [facility] Start: 2017 Annual PCP Team Chronic Disease Visit Annual PCP Team Chronic Disease Visit [facility] Start: 2017 CHLAMYDIA SCREENING (18-24) CHLAMYDIA SCREENING (18-24) [facility] Start: 2017 GC (GONORRHEA) SCREENING (18-24) GC (GONORRHEA) SCREENING (18-24) [facility] Start: 2017 HEPATITIS C SCREENING HEPATITIS C SCREENING [facility] Start: 2017 Hepatitis C screening Hepatitis C Screening [facility] Start: 2017 HIV SCREENING HIV SCREENING [facility] Start: 2017 HIV screening HIV Screening [facility] Start: 2017 Screening for Chlamydia trachomatis Chlamydia Screening (18-24) [facility] Start: 2017 Spirometry Spirometry [facility] Start: 2015 MenB (1 of 2 - MenB 2-Dose Series Bexsero) MenB (1 of 2 - MenB 2-Dose Series Bexsero) [facility] Start: 2015 Meningococcal B Vaccine: Consider Based On Risk (1 of 2 - Patient Seeks Protection) Meningococcal B Vaccine: Consider Based On Risk (1 of 2 - Patient Seeks Protection) [facility] Start: 2014 HPV (1 - 3-dose series) HPV (1 - 3-dose series) [facility] Start: 2014 HPV Vaccine (1 - 3-dose series) HPV Vaccine (1 - 3-dose series) [facility] Start: 2013 PEDS TO ADULT TRANSITION ANNUAL ASSESSMENT PEDS TO ADULT TRANSITION ANNUAL ASSESSMENT [facility] Start: 2012 Varicella (1 of 2 - 13+ 2-dose series) Varicella (1 of 2 - 13+ 2-dose series) [facility] Start: 2011 PEDS TO ADULT TRANSITION INITIAL DISCUSSION PEDS TO ADULT TRANSITION INITIAL DISCUSSION [facility] Start: 2010 HPV VACCINE (1 - 2-dose series) HPV VACCINE (1 - 2-dose series) [facility] Start: 2009 MENINGOCOCCAL B: Consider based on risk (1 of 2 - Risk Bexsero 2-dose series) MENINGOCOCCAL B: Consider based on risk (1 of 2 - Risk Bexsero 2-dose series) [facility] Start: 2008 HPV Vaccine (1 - 2-dose series) HPV Vaccine (1 - 2-dose series) [facility] Start: 2006 Tetanus Diphtheria and Pertussis Vaccines (1 - Tdap) Tetanus Diphtheria and Pertussis Vaccines (1 - Tdap) [facility] Start: 2005 Pneumococcal vaccination [facility] Start: 2000 MMR (1 of 1 - Standard series) MMR (1 of 1 - Standard series) [facility] Start: 1999 COVID-19 VACCINE (#1) COVID-19 VACCINE (#1) [facility] Start: 1999 HEPATITIS B (1 of 3 - 3-dose series) HEPATITIS B (1 of 3 - 3-dose series) [facility] Start: 1999 Hepatitis B Vaccine (1 of 3 - 3-dose series) Hepatitis B Vaccine (1 of 3 - 3-dose series) [facility] Bacteria identified in Unspecified specimen by Respiratory culture BACTERIAL CULTURE AND GRAM STAIN, RESPIRATORY, SPUTUM AND TRACHEAL ASPIRATE Microbiology Routine Necrotizing granulomatous inflammation (HCC) Ordered: 09/01/2024 [facility] Comment on above: Ordered: 09/01/2024 Breath hydrogen/meth ane test BREATH TEST - LACTULOSE Procedures Routine Irritable bowel syndrome with diarrhea 1 Occurrences starting 08/30/2023 [facility] Work Phone: Comment on above: 1 Occurrences starting 08/30/2023 Breath hydrogen/meth ane test BREATH TEST - LACTULOSE Procedures Routine Irritable bowel syndrome with diarrhea 10/10/2023 [facility] Work Phone: C peptide [Mass/volu me] in Serum or Plasma C-PEPTIDE BLD Lab Routine Prediabetes 09/16/2024 8:35 AM EDT [facility] Calprotectin [Mass/m ass] in Stool CALPROTECTIN,FECAL Lab Routine Diarrhea, unspecified type Ordered: 11/20/2023 [facility] Comment on above: Ordered: 11/20/2023 End: 08-13-2025 CBC W Auto Differential panel - Blood COMPLETE BLOOD COUNT AND DIFFERENTIAL Lab Routine Necrotizing granulomatous inflammation (HCC) Once per week for 4 Occurrences starting 08/13/2024 until 08/13/2025, 1 completed [facility] Work Phone: Comment on above: Once per week for 4 Occurrences starting 08/13/2024 until 08/13/2025, 1 completed Clostridioides diffi cile toxin genes [Presence] in Stool by SHO with probe detection C. DIFFICILE PCR Lab Routine Diarrhea, unspecified type Ordered: 11/20/2023 [facility] Comment on above: Ordered: 11/20/2023 End: 08-13-2025 Comprehensive metabolic 2000 panel - Serum or Plasma COMPREHENSIVE METABOLIC PANEL Lab Routine Necrotizing granulomatous inflammation (HCC) Once per week for 4 Occurrences starting 08/13/2024 until 08/13/2025 [facility] Comment on above: Once per week for 4 Occurrences starting 08/13/2024 until 08/13/2025 End: 05-03-2024 Ct thorax w/o contrast material CT CHEST WO IVCON Radiology Routine Moderate persistent asthma without complication 1 Occurrences starting 04/04/2023 until 05/03/2024 [facility] Work Phone: Comment on above: 1 Occurrences starting 04/04/2023 until 05/03/2024 Ct thorax w/o contra st material CT CHEST WO IVCON Radiology Routine Moderate persistent asthma without complication 04/15/2023 9:32 AM EST [facility] Work Phone: End: 02-03-2025 ECG COMPLETE ECG COMPLETE ECG Routine Near syncope 1 Occurrences starting 02/04/2024 until 02/03/2025 [facility] Work Phone: Comment on above: 1 Occurrences starting 02/04/2024 until 02/03/2025 End: 07-02-2025 ECG COMPLETE ECG COMPLETE ECG STAT Pre-op testing 1 Occurrences starting 07/02/2024 until 07/02/2025 [facility] Comment on above: 1 Occurrences starting 07/02/2024 until 07/02/2025 End: 06-25-2024 Echocardiography ECHO Cardiology Routine Atypical chest pain 1 Occurrences starting 06/25/2023 until 06/25/2024 [facility] Work Phone: Comment on above: 1 Occurrences starting 06/25/2023 until 06/25/2024 End: 08-29-2024 EGD DIAGNOSTIC EGD DIAGNOSTIC Endoscopy Routine Dysphagia, unspecified type Nausea Abdominal bloating 1 Occurrences starting 08/30/2023 until 08/29/2024 [facility] Work Phone: Comment on above: 1 Occurrences starting 08/30/2023 until 08/29/2024 ENTERIC BACTERIAL PA TYRA BY PCR ENTERIC BACTERIAL PANEL BY PCR Lab Routine Diarrhea, unspecified type Ordered: 11/20/2023 [facility] Comment on above: Ordered: 11/20/2023 End: 01-14-2024 F2 gene.[id number]>A and c.1691G>A panel - Blood or Tissue by Molecular genetics method [facility] Work Phone: Comment on above: 1 Occurrences starting 01/14/2024 until 01/14/2024 End: 02-15-2024 Genetic Sendout: CancerNext-Expanded Panel [facility] Work Phone: Comment on above: 1 Occurrences starting 02/15/2024 until 02/15/2024 Giardia lamblia+Cryptosporidium sp Ag [Presence] in Stool by Immunoassay CRYPTOSPORIDIUM AND GIARDIA ANTIGENS BY EIA Microbiology Routine Diarrhea, unspecified type Ordered: 11/20/2023 [facility] Comment on above: Ordered: 11/20/2023 Glutamate decarboxyl ase 65 Ab [Units/volume] in Serum GLUTAMIC AC DECARBOXYLASE AB Lab Routine Prediabetes 09/16/2024 8:35 AM EDT [facility] INSULINOMA ASSOCIATE D ANTIBODY 2 INSULINOMA ASSOCIATED ANTIBODY 2 Lab Routine Prediabetes 09/16/2024 8:35 AM EDT [facility] End: 05-16-2024 LUNG DIFFUSION CAPACITY (DLCO) LUNG DIFFUSION CAPACITY (DLCO) PFT Routine Moderate persistent asthma without complication 1 Occurrences starting 04/17/2023 until 05/16/2024 [facility] Work Phone: Comment on above: 1 Occurrences starting 04/17/2023 until 05/16/2024 End: 12-31-2024 Manometry Study observation Narrative MANOMETRY ESOPHAGEAL Endoscopy Routine Dysphagia, unspecified type 1 Occurrences starting 01/01/2024 until 12/31/2024 [facility] Work Phone: Comment on above: 1 Occurrences starting 01/01/2024 until 12/31/2024 Microorganism identi fied in Unspecified specimen by Culture [facility] Work Phone: Comment on above: Ordered: 09/01/2024 NEXPLANON INSERTION NEXPLANON IN SERTION Procedures Routine Nexplanon insertion Ordered: 12/07/2023 [facility] Work Phone: Comment on above: Ordered: 12/07/2023 NEXPLANON INSERTION NEXPLANON IN SERTION Procedures Routine Menorrhagia with regular cycle Ordered: 12/03/2023 [facility] Comment on above: Ordered: 12/03/2023 End: 05-16-2024 NITRIC OXIDE, EXHALED NITRIC OXIDE, EXHALED PFT Routine Moderate persistent asthma without complication 1 Occurrences starting 04/17/2023 until 05/16/2024 [facility] Work Phone: Comment on above: 1 Occurrences starting 04/17/2023 until 05/16/2024 End: 12-19-2024 NM Stomach Views for gastric emptying solid phase W radionuclide PO NM GASTRIC EMPTYING SOLID Radiology Routine Nausea 1 Occurrences starting 11/20/2023 until 12/19/2024 [facility] Work Phone: Comment on above: 1 Occurrences starting 11/20/2023 until 12/19/2024 Patient Education [facility] Work Phone: Patient referral [facility] Work Phone: End: 08-05-2024 Polysomnogram POLYSOMNOGRAM (PSG) Procedures Routine Poor sleep 1 Occurrences starting 08/06/2023 until 08/05/2024 [facility] Work Phone: Comment on above: 1 Occurrences starting 08/06/2023 until 08/05/2024 Reduction mammaplasty REDUCTION BREAST BILATERAL Macromastia Chronic bilateral low back pain without sciatica [facility]ck [facility] RF videography Hypopharynx and Esophagus Views W liquid and paste contrast PO during swallowing XR MODIFIED BARIUM SWALLOW W SPEECH THERAPY Radiology Routine Dysphagia, unspecified type 03/07/2024 12:40 PM EDT [facility] Work Phone: End: 05-03-2024 SPIROMETRY - BASELINE AND POST DILATOR SPIROMETRY - BASELINE AND POST DILATOR PFT Routine Moderate persistent asthma without complication 1 Occurrences starting 04/04/2023 until 05/03/2024 [facility] Work Phone: Comment on above: 1 Occurrences starting 04/04/2023 until 05/03/2024 SURGICAL PATHOLOGY [facility] Work Phone: Comment on above: Release Upon Ordering for 1 Occurrences starting 01/22/2024, 1 completed End: 12-23-2024 VASCULAR SCREENING TEST VASCULAR SCREENING TEST Vascular Lab Routine Blood clot in arm (HCC) 1 Occurrences starting 12/24/2023 until 12/23/2024 [facility] Work Phone: Comment on above: 1 Occurrences starting 12/24/2023 until 12/23/2024 End: 10-01-2025 XR Chest PA and Lateral XR CHEST 2V FRONTAL/LAT Radiology Routine Necrotizing granulomatous inflammation (HCC) Acute cough 1 Occurrences starting 09/01/2024 until 10/01/2025 [facility] Comment on above: 1 Occurrences starting 09/01/2024 until 10/01/2025 XR Knee 3 Views [facility] ZINC TRANSPORTER 8 ANTIBODY ZINC TRANSPORTER 8 ANTIBODY Lab Routine Prediabetes 09/16/2024 8:35 AM EDT [facility] Immunizations Immunization Date Immunization Notes Care Provider Fa [facility] 10-01-2023 measles, mumps and rubella virus vaccine; Translations: [M-M-R II] JACK PRIEST PHARMACY CLERK-CATHEAD WORKER [facility] 10-01-2023 tetanus toxoid, reduced diphtheria toxoid, and acellular pertussis vaccine, adsorbed; Translations: [Boostrix (Tdap)] JACK PRIEST PHARMACY CLERK-CATHEAD WORKER [facility] 03-21-2020 influenza virus vaccine, unspecified formulation Stacy Segura MD Work Phone: [facility] Payers Date Payer Category Payer Private Health Insurance [id number] 2023 Medicaid [id number] 2023 Medicaid [id number] 2023 Self-pay 2022 Unknown ROSY GONCALVES PPO [id number] 2022-Present [phone] [facility] [id number] [place] [address] PPO [id number] 2022 Unknown [id number] 1999 Unknown [id number] 2.16.840.1.751143.3.579.2.6 1999 Unknown [id number] 2.16.840.1.463629.3.579.2.6 1999 Unknown [id number] 2.16.840.1.694792.3.579.2.6 1999 Unknown [id number] 2.16.840.1.248147.3.579.2.6 1999 Unknown [id number] 2.16.840.1.880605.3.579.2.6 1999 Unknown [id number] 2.16.840.1.522002.3.579.2.6 1999 Unknown [id number] 2.16.840.1.189926.3.579.2.6 1999 Unknown [id number] 2.16.840.1.277885.3.579.2.6 1999 Unknown [id number] 2.16.840.1.924508.3.579.2.6 1999 Unknown [id number] 2.16.840.1.968304.3.579.2.6 1999 Unknown [id number] 2.16.840.1.134583.3.579.2.6 1999 Unknown [id number] 2.16.840.1.340037.3.579.2.6 1999 Unknown [id number] 2.16.840.1.709729.3.579.2.6 1999 Unknown [id number] 2.16.840.1.762654.3.579.2.6 1999 Unknown [id number] 2.16.840.1.973371.3.579.2.4 1999 Unknown [id number] 2.16.840.1.541681.3.579.2.4 79 1999 Unknown [id number] 2.16.840.1.182463.3.579.2.4 79 1999 Unknown [id number] 2.16.840.1.029935.3.579.2.4 1999 Unknown [id number] 2.16.840.1.447514.3.579.2.6 1999 Unknown [id number] 2.16.840.1.565229.3.579.2.6 1999 Unknown [id number] 2.16.840.1.568814.3.579.2.6 1999 Unknown [id number] 2.16.840.1.026805.3.579.2.6 1999 Unknown [id number] 2.16.840.1.590268.3.579.2.6 1999 Unknown [id number] 2.16.840.1.161103.3.579.2.6 1999 Unknown [id number]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 Normal Imaging: (07/09/2024) Chest X-ray: Increased basilar atelectasis; superimposed infiltrates cannot be entirely excluded. Right hemidiaphragm elevation is increased. No pleural effusions or pneumothorax. (04/07/2024) CT Chest: Stable lung nodules and faintly calcified thoracic lymphadenopathy compatible with granulomatous process, likely related to histoplasma. Differential includes sarcoid. (04/16/2023) CT Chest: Bilateral indeterminate pulmonary nodules with tiny surrounding nodules/perilymphatic studding, nonspecific but can be seen in the setting of granulomatous processes. Mild lower mediastinal and right hilar lymphadenopathy likely related to a similar process. CT Chest (date not provided): Lung nodules with no evidence of collapse or consolidation. Tests: (07/09/2024) Bronchoscopy with Transbronchial Biopsy: -Cytology necrotizing granulomatous inflammation with fungal yeast consistent with histoplasma - Negative for malignant cells - Tissue fungal culture negative x 14 days - AFB culture negative x 14 days - Bacterial culture: Rare normal respiratory sandra, negative for anaerobes - BAL differential: - Macrophages: 4% - Lymphocytes: 3% - Neutrophils: 3% - Total nucleated cells: 129 - Aspergillus galactomannan: Negative - PJP PCR: Negative - RV panel: Negative Impression/Recommendations Matt Calabrese is a 24 year old female here today for histoplasmosis noted from transbronchial biopsy of mediastinal LN h/o asthma, migraines; sinus infections, arthritis borderline personality disorder - Diagnosed with histoplasmosis 3 years ago in [place] after persistent illness and CT scans revealed pulmonary abnormalities.no records available - Treated with a 12-week course of itraconazole in liquid form due to difficulty swallowing pills. - CT chest reviewed 03/2024 Stable lung nodules and faintly calcified thoracic lymphadenopathy, compatible with granulomatous process 1. Histoplasmosis (B39.9) 2. 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 - Fungal culture of the transbronchial lymph node aspirate has been negative for 14 days. - start itraconazole 20 mL PO BID; liquid formulation due to difficulty swallowing pills. - Ordered baseline LFTs, renal function tests, and inflammatory markers. crp, cbc, histo serologies; hiv test; blood tb screen - Ordered histoplasma urine studies to assess for systemic dissemination. - Scheduled follow-up itraconazole levels within one week of starting itraconazole to monitor drug levels. - Follow-up virtual visit scheduled for September 12 at 0900 am - she will have her PCPs office send over her records to my office (she has a follow-up with her PCP this week) 3. Fever, unspecified (R50.9) - Recent hospitalization for high fevers, now fever-free for three days. unclear etiology. ?bronchitis. - no records available; not available in care everywhere - Monitor for recurrence of fever; report any new symptoms immediately. 4. Drug interaction (Z78.9) - Potential interaction between itraconazole and quetiapine; - Patient to discuss medication adjustment with psychiatrist during appointment tomorrow. - Monitor for any adverse effects such as GI upset, rash, or diarrhea. will review OSH records when available review drug interactions with ID pharmacy RTC 08/2024 Marta Walters MD, [facility] Staff Physician Dept of Infectious Disease [facility] I spent a total of 90 minutes on the date of the service which included preparing to see the patient, [id number] patient care, completing clinical documentation, obtaining and/or reviewing separately obtained history, performing a medically appropriate examination, counseling and educating the patient/family/caregiver, ordering medications, tests, or procedures, independently interpreting results (not separately reported), and communicating results to the patient/family/caregiver. documented in this encounter [facility] 07-29-2024 Note . MICRO - Microbiology PROCEDURE: Blood Culture (bacterial) [*1] SOURCE: Blood BODY SITE: COLLECTED DATE/TIME: 07/24/2024 16:02 EST RECEIVED DATE/TIME: 07/24/2024 19:19 EST START DATE/TIME: 07/24/2024 19:19 EST FREE TEXT SOURCE: FINAL REPORTS Final Report [] Verified Date/Time/Personnel: 07/29/2024 19:59 EDT Blood Culture: No Growth at 5 days. PRELIMINARY REPORTS Preliminary Report [] Verified Date/Time/Personnel: 07/24/2024 19:59 EST Culture has been received in lab and is no growth to date. Routine cultures are held for 5 days. Performing Locations *1: This test was performed at: [facility], [address] [place] [address], [facility]- , [facility] 07-29-2024 Note . MICRO - Microbiology PROCEDURE: Blood Culture (bacterial) [*1] SOURCE: Blood BODY SITE: COLLECTED DATE/TIME: 07/24/2024 16:02 EST RECEIVED DATE/TIME: 07/24/2024 19:19 EST START DATE/TIME: 07/24/2024 19:19 EST FREE TEXT SOURCE: FINAL REPORTS Final Report [] Verified Date/Time/Personnel: 07/29/2024 19:59 EDT Blood Culture: No Growth at 5 days. PRELIMINARY REPORTS Preliminary Report [] Verified Date/Time/Personnel: 07/24/2024 19:59 EST Culture has been received in lab and is no growth to date. Routine cultures are held for 5 days. Performing Locations *1: This test was performed at: [facility], [address] [place] [address], [id number]- , [facility] 07-28-2024 Telephone encounter Note Ms Calabrese called because she was supposed to be transferred from her local hospital in [facility] to [facility]. Dr Ferguson had already accepted her transfer and the patient has heard nothing about bed availability at the [facility].She stated that the facility she is in, is going to discharge her if she does not get transferred out today. Spoke with Dr Ferguson. Confirmed there is no bed availability for bed transfer at this time. Bed availability is reliant on future discharges Dr Ferguson instructed that the patient should call Dr Olson her PCP for guidance. Danica Ugarte RN [facility] 07-28-2024 Miscellaneous Notes Ms Calabrese called because she was supposed to be transferred from her local hospital in [facility] to [facility]. Dr Ferguson had already accepted her transfer and the patient has heard nothing about bed availability at the [facility].She stated that the facility she is in, is going to discharge her if she does not get transferred out today. Spoke with Dr Ferguson. Confirmed there is no bed availability for bed transfer at this time. Bed availability is reliant on future discharges Dr Ferguson instructed that the patient should call Dr Olson her PCP for guidance. Danica Ugarte RN documented in this encounter [facility] 07-27-2024 Note . MICRO - Microbiology PROCEDURE: Blood Culture (bacterial) [*1] SOURCE: Blood BODY SITE: COLLECTED DATE/TIME: 07/21/2024 23:42 EST RECEIVED DATE/TIME: 07/22/2024 15:34 EST START DATE/TIME: 07/22/2024 15:35 EST FREE TEXT SOURCE: FINAL REPORTS Final Report [] Verified Date/Time/Personnel: 07/27/2024 15:59 EDT Blood Culture: No Growth at 5 days. PRELIMINARY REPORTS Preliminary Report [] Verified Date/Time/Personnel: 07/22/2024 16:59 EST Culture has been received in lab and is no growth to date. Routine cultures are held for 5 days. Performing Locations *1: This test was performed at: [address] , [facility] 07-27-2024 Note . MICRO - Microbiology PROCEDURE: Blood Culture (bacterial) [*1] SOURCE: Blood BODY SITE: COLLECTED DATE/TIME: 07/21/2024 23:42 EST RECEIVED DATE/TIME: 07/22/2024 15:34 EST START DATE/TIME: 07/22/2024 15:35 EST FREE TEXT SOURCE: FINAL REPORTS Final Report [] Verified Date/Time/Personnel: 07/27/2024 15:59 EDT Blood Culture: No Growth at 5 days. PRELIMINARY REPORTS Preliminary Report [] Verified Date/Time/Personnel: 07/22/2024 16:59 EST Culture has been received in lab and is no growth to date. Routine cultures are held for 5 days. Performing Locations *1: This test was performed at: [address], [address] [place] [address] 07-26-2024 Note . MICRO - Microbiology PROCEDURE: Blood Culture (bacterial) [*1] SOURCE: Blood BODY SITE: Anticubital, Right COLLECTED DATE/TIME: 07/22/2024 21:13 EST RECEIVED DATE/TIME: 07/23/2024 16:50 EST START DATE/TIME: 07/23/2024 16:50 EST FREE TEXT SOURCE: FINAL REPORTS Final Report [] Verified Date/Time/Personnel: 07/26/2024 12:03 EST Staphylococcus hominis Isolated from aerobe and anaerobe bottles. Refer to previous culture for susceptibility. [phone] PRELIMINARY REPORTS Preliminary Report [] Verified Date/Time/Personnel: 07/25/2024 09:31 EST Staphylococcus hominis Isolated from aerobe and anaerobe bottles. Final report to follow. Preliminary Report [] Verified Date/Time/Personnel: 07/23/2024 17:59 EST Culture has been received in lab and is no growth to date. Routine cultures are held for 5 days. STAINS GSANA [] Verified Date/Time/Personnel: 07/24/2024 12:29 EST Gram Positive Cocci in clusters GSAER [] Verified Date/Time/Personnel: 07/24/2024 10:04 EST Gram Positive Cocci in clusters SUSCEPTIBILITY RESULTS Staphylococcus hominis Antibiotic TAL Dilut TAL Inter ID Panel Not Not Applicable Applicable Performing Locations *1: This test was performed at: [facility], [address] [place] [address], [facility] , [facility] 07-26-2024 Note . MICRO - Microbiology PROCEDURE: Blood Culture (bacterial) [*1] SOURCE: Blood BODY SITE: Anticubital, Left COLLECTED DATE/TIME: 07/22/2024 21:13 EST RECEIVED DATE/TIME: 07/23/2024 16:50 EST START DATE/TIME: 07/23/2024 16:50 EST FREE TEXT SOURCE: FINAL REPORTS Final Report [] Verified Date/Time/Personnel: 07/26/2024 12:03 EST Staphylococcus hominis Isolated from anaerobe bottle only. This staphylococci does not demonstrate inducible clindamycin resistance in vitro. PRELIMINARY REPORTS Preliminary Report [] Verified Date/Time/Personnel: 07/25/2024 09:31 EST Staphylococcus hominis Isolated from anaerobe bottle only. TAL to follow Preliminary Report [] Verified Date/Time/Personnel: 07/23/2024 17:59 EST Culture has been received in lab and is no growth to date. Routine cultures are held for 5 days. STAINS GSANA [] Verified Date/Time/Personnel: 07/24/2024 09:00 EST Gram Positive Cocci in clusters SUSCEPTIBILITY RESULTS Staphylococcus hominis Antibiotic TAL Dilut TAL Inter Ampicillin/ <=8/4 Susceptible Sulbactam Azithromycin >4 Resistant Cefepime <=4 Susceptible Ceftriaxone <=4 Susceptible Ciprofloxacin <=1 Susceptible Clindamycin <=0.25 Susceptible Erythromycin >4 Resistant ID Panel Not Not Applicable Applicable Imipenem <=4 Susceptible Levofloxacin <=1 Susceptible Meropenem <=2 Susceptible Oxacillin <=0.25 Susceptible Penicillin 0.12 Susceptible Piperacillin/ <=8 Susceptible Tazobactam Tetracycline >8 Resistant Trimethoprim/ <=0.5/9.5 Susceptible Sulfa Vancomycin 0.5 Susceptible Performing Locations *1: This test was performed at: [address], [id number]- , [facility] 07-22-2024 Note . MICRO - Microbiology PROCEDURE: Legionella Urine Ag [*1] SOURCE: Urine BODY SITE: COLLECTED DATE/TIME: 07/21/2024 23:42 EST RECEIVED DATE/TIME: 07/22/2024 15:34 EST START DATE/TIME: 07/22/2024 15:35 EST FREE TEXT SOURCE: FINAL REPORTS Final Report [] Verified Date/Time/Personnel: 07/22/2024 15:57 EST Presumptive negative for L. pneumophila serogroup 1 antigen in urine, suggesting no recent or current infection. Legionnaire's disease cannot be ruled out since other serogroups and species may also cause disease. Performing Locations *1: This test was performed at: [address], [address]- , [facility] 07-22-2024 Telephone encounter Note Patient saw Dr Larsen on 07/09/24 for a Bronchoscopy. We received a call in the office from Yasmine at [facility]. Patient is pending discharge today and Yasmine would like to speak to a clinical staff before discharge to discuss treatment and or follow, if any. Neda can be reached at [phone] [facility] 07-22-2024 Miscellaneous Notes Patient saw Dr Larsen on 07/09/24 for a Bronchoscopy. We received a call in the office from Yasmine at [facility]. Patient is pending discharge today and Yasmine would like to speak to a clinical staff before discharge to discuss treatment and or follow, if any. Neda can be reached at [phone] documented in this encounter [facility] 07-20-2024 Hospital Discharg e instructions Patient Education 07/20/2024 10:43:25 Viral Syndrome (Adult) Viral Syndrome (Adult) A viral illness may cause a number of symptoms such as fever. Other symptoms depend on the part of the body that the virus affects. If it settles in your nose, throat, and lungs, it may cause cough, sore throat, congestion, runny nose, headache, earache and other ear symptoms, or shortness of breath. If it settles in your stomach and intestinal tract, it may cause nausea, vomiting, cramping, and diarrhea. Sometimes it causes generalized symptoms like aching all over, feeling tired, loss of energy, or loss of appetite. A viral illness usually lasts anywhere from several days to several weeks, but sometimes it lasts longer. In some cases, a more serious infection can look like a viral syndrome in the first few days of the illness. You may need another exam and additional tests to know the difference. Watch for the warning signs listed below for when to seek medical advice. Home care Follow these guidelines for taking care of yourself at home: If symptoms are severe, rest at home for the first 2 to 3 days. Stay away from cigarette smoke - both your smoke and the smoke from others. You may use kttg-hmv-rqaumvc acetaminophen or ibuprofen for fever, muscle aching, and headache, unless another medicine was prescribed for this. If you have chronic liver or kidney disease or ever had a stomach ulcer or gastrointestinal bleeding, talk with your healthcare provider before using these medicines. No one who is younger than 18 and ill with a fever should take aspirin. It may cause severe disease or . Your appetite may be poor, so a light diet is fine. Avoid dehydration by drinking 8 to 12, 8-ounce glasses of fluids each day. This may include water; orange juice; lemonade; apple, grape, and cranberry juice; clear fruit drinks; electrolyte replacement and sports drinks; and decaffeinated teas and coffee. If you have been diagnosed with a kidney disease, ask your healthcare provider how much and what types of fluids you should drink to prevent dehydration. If you have kidney disease, drinking too much fluid can cause it build up in the your body and be dangerous to your health. Lyzl-hbv-vbtwnbv remedies won't shorten the length of the illness but may be helpful for symptoms such as cough, sore throat, nasal and sinus congestion, or diarrhea. Don't use decongestants if you have high blood pressure. Follow-up care Follow up with your healthcare provider if you do not improve over the next week. Call 911 Call 911 if any of the following occur: Convulsion Feeling weak, dizzy, or like you are going to faint Chest pain, or more than mild shortness of breath When to seek medical advice Call your healthcare provider right away if any of these occur: Cough with lots of colored sputum (mucus) or blood in your sputum Chest pain, shortness of breath, wheezing, or trouble breathing Severe headache; face, neck, or ear pain Severe, constant pain in the lower right side of your belly (abdominal) Continued vomiting (can t keep liquids down) Frequent diarrhea (more than 5 times a day); blood (red or black color) or mucus in diarrhea Feeling weak, dizzy, or like you are going to faint Extreme thirst Fever of 100.4 F (38 C) or higher, or as directed by your healthcare provider [id number] [employer]. [address] [place] [address], [place] [address]. All rights reserved. This information is not intended as a substitute for professional medical care. Always follow your healthcare professional's instructions. Follow Up Care 07/20/2024 09:18:05 With:JACK PRIEST Address: [address] [place] [address] [place] [address] [phone] Business (1) When:3-5 days Comments:Follow-up as needed if symptoms are not improving.Drink plenty of fluids and rest.Continue alternating doses of Tylenol and Motrin for pain and fever as needed.Use Tessalon as prescribed for cough and Zofran for nausea and vomiting as needed. Return to the ED if symptoms worsen. [facility] 07-20-2024 Note Discharge Instructions Thank you for allowing [facility] to assist you with your healthcare needs. The following is important discharge information regarding your hospital visit. What to Do Next Instructions from Your Care Team No qualifying data available. Post Acute Orders No qualifying data available. You Need to Schedule the Following Appointments Follow Up with JACK PRIEST When:Within 3-5 days [facility] [place] [address] [phone] Business (1) Additional Information: Follow-up as needed if symptoms are not improving. Drink plenty of fluids and rest. Continue alternating doses of Tylenol and Motrin for pain and fever as needed. Use Tessalon as prescribed for cough and Zofran for nausea and vomiting as needed. Return to the ED if symptoms worsen. Allergies Bactrim Rash Flagyl Rash Zithromax Hives amoxicillin penicillin penicillins Hives traZODone Suicidal ideation Medications Please ask your primary doctor or pharmacist before taking any other medication not listed, including over the counter drugs, herbal medications, vitamins and or supplements as they may interact with your home medications. What How Much When Why Instructions Last Dose New benzonatate (Tessalon Perles 100 mg oral capsule) 1 cap by mouth Three (3) times a day Duration: 7 Days Printed Prescription Changed ondansetron (Zofran 4 mg oral tablet) 1 tab(s) by mouth Every 8 hours as needed for Nausea Nausea Duration: 30 Days Changed ondansetron (Zofran 4 mg oral tablet) 1 tab(s) by mouth Every 6 hours as needed for As needed for nausea and vomiting Duration: 3 Days Printed Prescription Unchanged DME (CPAP Supplies) See instructions Full setup (mask/ tubing/ water res) CPAP pressure of 16 cm of water with ResMed P10 size medium and heated humidity Unchanged DME (Prescription MISCellaneous) See instructions Migraines Deep tissue massage once weekly x4 weeks for chronic migraines. Unchanged doxycycline (doxycycline hyclate 100 mg oral capsule) 1 cap by mouth Two (2) times a day Productive cough Duration: 10 Days Unchanged ergocalciferol (Vitamin D2 1.25 mg (50,000 intl units) oral capsule) 1 cap by mouth Every week Vitamin D deficiency Duration: 90 Days Unchanged ferrous sulfate (ferrous sulfate 325 mg (65 mg elemental iron) oral tablet) 1 tab(s) by mouth Once a day Iron deficiency Duration: 90 Days Unchanged fluconazole (fluconazole 100 mg oral tablet) 1 tab(s) by mouth Every other day Maria Elena infection Duration: 6 Days Unchanged herbal/ nutritional product (flax seed oil 1000 mg oral capsule) 1 cap by mouth Once a day HLD (hyperlipidemia) Duration: 90 Days Unchanged hydrOXYzine (hydrOXYzine hydrochloride 25 mg oral tablet) 1 tab(s) by mouth Four (4) times a day as needed for for anxiety Unchanged ketoconazole topical (ketoconazole 2% topical shampoo) 1 application Topical Every week Unchanged magnesium hydroxide (magnesium hydroxide 400 mg oral tablet, chewable) 1 Each by mouth Once a day Constipation Duration: 90 Days patient would like these added to her pill pack Unchanged naltrexone (naltrexone 50 mg oral tablet) 1 tab(s) by mouth Every day Unchanged pantoprazole (pantoprazole 40 mg oral enteric coated tablet) 1 tab(s) by mouth Once a day Chronic nausea Duration: 90 Days Unchanged prazosin (prazosin 1 mg oral capsule) 1 cap by mouth Three (3) times a day Unchanged prazosin (prazosin 2 mg oral capsule) 1 cap by mouth Daily at bedtime Unchanged QUEtiapine (QUEtiapine 50 mg oral tablet, extended release) 2 tab(s) by mouth Once a day Unchanged tirzepatide (Mounjaro 2.5 mg/ 0.5 mL subcutaneous solution) 2.5 Milligram Subcutaneous Every week Morbid obesity with BMI of 40.0-44.9, adult Insulin resistance syndrome Duration: 30 Days rotate injection sites Unchanged TNF-Med (MiscMED Miscellaneous Medication) See instructions Takes Blood Sugar [place], 1 cap daily Please take this list to your next doctor s visit. Bring all medications you take, including over the counter medications, herbals and other supplements with you to your doctor s visit. Patients and families are reminded to discard old lists and to update any records with all medication providers or retail pharmacies. Education Materials Viral Syndrome (Adult) A viral illness may cause a number of symptoms such as fever. Other symptoms depend on the part of the body that the virus affects. If it settles in your nose, throat, and lungs, it may cause cough, sore throat, congestion, runny nose, headache, earache and other ear symptoms, or shortness of breath. If it settles in your stomach and intestinal tract, it may cause nausea, vomiting, cramping, and diarrhea. Sometimes it causes generalized symptoms like aching all over, feeling tired, loss of energy, or loss of appetite. A viral illness usually lasts anywhere from several days to several weeks, but sometimes it lasts longer. In some cases, a more serious infection can look like a viral syndrome in the first few days of the illness. You may need another exam and additional tests to know the difference. Watch for the warning signs listed below for when to seek medical advice. Home care Follow these guidelines for taking care of yourself at home: If symptoms are severe, rest at home for the first 2 to 3 days. Stay away from cigarette smoke - both your smoke and the smoke from others. You may use edbn-xid-pxcyauw acetaminophen or ibuprofen for fever, muscle aching, and headache, unless another medicine was prescribed for this. If you have chronic liver or kidney disease or ever had a stomach ulcer or gastrointestinal bleeding, talk with your healthcare provider before using these medicines. No one who is younger than 18 and ill with a fever should take aspirin. It may cause severe disease or . Your appetite may be poor, so a light diet is fine. Avoid dehydration by drinking 8 to 12, 8-ounce glasses of fluids each day. This may include water; orange juice; lemonade; apple, grape, and cranberry juice; clear fruit drinks; electrolyte replacement and sports drinks; and decaffeinated teas and coffee. If you have been diagnosed with a kidney disease, ask your healthcare provider how much and what types of fluids you should drink to prevent dehydration. If you have kidney disease, drinking too much fluid can cause it build up in the your body and be dangerous to your health. Uvii-icq-atigmfq remedies won't shorten the length of the illness but may be helpful for symptoms such as cough, sore throat, nasal and sinus congestion, or diarrhea. Don't use decongestants if you have high blood pressure. Follow-up care Follow up with your healthcare provider if you do not improve over the next week. Call 911 Call 911 if any of the following occur: Convulsion Feeling weak, dizzy, or like you are going to faint Chest pain, or more than mild shortness of breath When to seek medical advice Call your healthcare provider right away if any of these occur: Cough with lots of colored sputum (mucus) or blood in your sputum Chest pain, shortness of breath, wheezing, or trouble breathing Severe headache; face, neck, or ear pain Severe, constant pain in the lower right side of your belly (abdominal) Continued vomiting (can t keep liquids down) Frequent diarrhea (more than 5 times a day); blood (red or black color) or mucus in diarrhea Feeling weak, dizzy, or like you are going to faint Extreme thirst Fever of 100.4 F (38 C) or higher, or as directed by your healthcare provider [id number] [employer]. [address] [place] [address]. All rights reserved. This information is not intended as a substitute for professional medical care. Always follow your healthcare professional's instructions. Additional Information VACCINATE! IT SAVES LIVES! Members of the community who have not yet received the COVID-19 vaccine and would like to receive it can visit one of [facility] vaccine clinics. There are many vaccine clinic locations within the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 not moving around IV drug abuse Use of control pills or estrogen therapy Symptoms Symptoms may appear in the affected area. They can include: Pain Tenderness Redness Warmth Swelling Hardening of the vein In most cases, superficial thrombophlebitis resolves on its own with no problems. Treatment is focused on relieving symptoms. Sometimes, there is a risk that the deep veins in the body may also be involved. This can lead to more serious problems. In such cases, further testing and treatments may be needed. Your healthcare provider can tell you more about this. Home care To help relieve pain and swelling, you may be told to: Apply heat or cold to the affected area. Do this for up to 10 minutes as often as directed. oHeat: Use a warm compress, such as a heating pad. oCold: Use a cold compress, such as a cold pack or bag of ice wrapped in a thin towel. Take nonsteroidal anti-inflammatory drugs (NSAIDS), such as ibuprofen. In some cases, other pain medicines may be prescribed. Keep the affected limb (arm or leg) raised above heart level as directed. Wear elastic compression stockings or bandages as directed. Don't sit or stand for long periods. Get up and walk often. To help treat a blood clot, a blood thinner (anticoagulant) may be prescribed. If this is needed, be sure to take the medicine exactly as directed. Follow-up care Follow up with your healthcare provider as advised. If imaging tests are done, they will be reviewed by a doctor. You ll be told the results and any new findings that may affect your treatment. When to seek medical advice Call your healthcare provider right away if any of these occur: Fever of 100.4 F (38 C) or higher, or as directed by your healthcare provider Increasing pain, swelling, or tenderness in the affected area Spreading warmth or redness in the affected area Call 911 Call 911 if any of these occur: Trouble breathing Chest pain or discomfort that worsens with deep breathing or coughing Coughing (may cough up blood) Fast or irregular heartbeat Sweating Anxiety Lightheadedness, dizziness, or fainting Extreme confusion Extreme drowsiness or trouble waking up New pain in the chest, arm, shoulder, neck, or upper back [id number] [employer]. [address] [place] [address]. All rights reserved. This information is not intended as a substitute for professional medical care. Always follow your healthcare professional's instructions. Follow Up Care 05/09/2024 10:38:53 With:JACK PRIEST Address: [address] [place] [phone] When:2-4 days [facility] 05-09-2024 Note Discharge Instructions Thank you for allowing [facility] to assist you with your healthcare needs. The following is important discharge information regarding your hospital visit. Diagnosis from Today's Visit Superficial thrombophlebitis of arm What to Do Next Instructions from Your Care Team No qualifying data available. Post Acute Orders No qualifying data available. You Need to Schedule the Following Appointments Follow Up with JACK PRIEST When:Within 2-4 days Where:[address] [place] [phone] Allergies Zithromax Hives amoxicillin penicillin penicillins Hives traZODone Suicidal ideation Medications Please ask your primary doctor or pharmacist before taking any other medication not listed, including over the counter drugs, herbal medications, vitamins and or supplements as they may interact with your home medications. What How Much When Why Instructions Last Dose Unchanged acetaminophen (Tylenol Extra Strength 500 mg oral tablet) 1 tab(s) by mouth Every 4 hours Duration: 14 Days Unchanged DME (Prescription MISCellaneous) See instructions Migraines Deep tissue massage once weekly x4 weeks for chronic migraines. Unchanged ergocalciferol (Vitamin D2 1.25 mg (50,000 intl units) oral capsule) 1 cap by mouth Every week Vitamin D deficiency Duration: 90 Days Unchanged ferrous sulfate (ferrous sulfate 325 mg (65 mg elemental iron) oral tablet) 1 tab(s) by mouth Once a day Iron deficiency Duration: 90 Days Unchanged herbal/ nutritional product (flax seed oil 1000 mg oral capsule) 1 cap by mouth Once a day HLD (hyperlipidemia) Duration: 90 Days Unchanged hydrOXYzine (hydrOXYzine hydrochloride 25 mg oral tablet) 1 tab(s) by mouth Four (4) times a day as needed for for anxiety Unchanged ketoconazole topical (ketoconazole 2% topical shampoo) 1 application Topical Every week Unchanged magnesium hydroxide (magnesium hydroxide 400 mg oral tablet, chewable) 1 Each by mouth Once a day Constipation Duration: 90 Days patient would like these added to her pill pack Unchanged metroNIDAZOLE (metroNIDAZOLE 500 mg oral tablet) 1 tab(s) by mouth Every 12 hours Duration: 14 Days Unchanged naltrexone (naltrexone 50 mg oral tablet) 1 tab(s) by mouth Every day Unchanged nitrofurantoin (Macrobid 100 mg oral capsule) 1 cap by mouth Two (2) times a day Duration: 7 Days Take with food Unchanged ondansetron (ondansetron 4 mg oral tablet, disintegrating) 1 tab(s) by mouth Every 8 hours as needed for as needed for nausea/vomiting Duration: 30 Days Unchanged pantoprazole (pantoprazole 40 mg oral enteric coated tablet) 1 tab(s) by mouth Once a day Chronic nausea Duration: 90 Days Unchanged prazosin (prazosin 2 mg oral capsule) 1 cap by mouth Daily at bedtime Unchanged QUEtiapine (QUEtiapine 50 mg oral tablet, extended release) 2 tab(s) by mouth Once a day Unchanged sucralfate (sucralfate 1 g oral tablet) 1 tab(s) by mouth Every 6 hours as needed for Other (see order comments) Mouth sores Duration: 7 Days let tablet melt in mouth to coat mouth sores. Unchanged sulfamethoxazole-trimethoprim (Bactrim DS 800 mg-160 mg oral tablet) 1 tab(s) by mouth Two (2) times a day Duration: 14 Days Unchanged TNF-Med (MiscMED Miscellaneous Medication) See instructions Takes Blood Sugar [place], 1 cap daily Please take this list to your next doctor s visit. Bring all medications you take, including over the counter medications, herbals and other supplements with you to your doctor s visit. Patients and families are reminded to discard old lists and to update any records with all medication providers or retail pharmacies. Education Materials Superficial Thrombophlebitis The superficial veins are the veins near the surface of the skin. Superficial thrombophlebitis is a problem that occurs when one or more of these veins become red, irritated, and swollen. This is most often because of a blood clot. Causes The problem may occur after injury to a vein. It may also occur after having an intravenous (IV) line placed. Other factors that can make the problem more likely include: Varicose veins Venous insufficiency Bleeding disorders Prolonged periods of rest and not moving around IV drug abuse Use of control pills or estrogen therapy Symptoms Symptoms may appear in the affected area. They can include: Pain Tenderness Redness Warmth Swelling Hardening of the vein In most cases, superficial thrombophlebitis resolves on its own with no problems. Treatment is focused on relieving symptoms. Sometimes, there is a risk that the deep veins in the body may also be involved. This can lead to more serious problems. In such cases, further testing and treatments may be needed. Your healthcare provider can tell you more about this. Home care To help relieve pain and swelling, you may be told to: Apply heat or cold to the affected area. Do this for up to 10 minutes as often as directed. oHeat: Use a warm compress, such as a heating pad. oCold: Use a cold compress, such as a cold pack or bag of ice wrapped in a thin towel. Take nonsteroidal anti-inflammatory drugs (NSAIDS), such as ibuprofen. In some cases, other pain medicines may be prescribed. Keep the affected limb (arm or leg) raised above heart level as directed. Wear elastic compression stockings or bandages as directed. Don't sit or stand for long periods. Get up and walk often. To help treat a blood clot, a blood thinner (anticoagulant) may be prescribed. If this is needed, be sure to take the medicine exactly as directed. Follow-up care Follow up with your healthcare provider as advised. If imaging tests are done, they will be reviewed by a doctor. You ll be told the results and any new findings that may affect your treatment. When to seek medical advice Call your healthcare provider right away if any of these occur: Fever of 100.4 F (38 C) or higher, or as directed by your healthcare provider Increasing pain, swelling, or tenderness in the affected area Spreading warmth or redness in the affected area Call 911 Call 911 if any of these occur: Trouble breathing Chest pain or discomfort that worsens with deep breathing or coughing Coughing (may cough up blood) Fast or irregular heartbeat Sweating Anxiety Lightheadedness, dizziness, or fainting Extreme confusion Extreme drowsiness or trouble waking up New pain in the chest, arm, shoulder, neck, or upper back [id number] [employer]. [address] [place] [address]. All rights reserved. This information is not intended as a substitute for professional medical care. Always follow your healthcare professional's instructions. Additional Information VACCINATE! IT SAVES LIVES! Members of the community who have not yet received the COVID-19 vaccine and would like to receive it can visit one of [facility] vaccine clinics. There are many vaccine clinic locations within the [facility]. For locations and available times, please visit [email or web address] [email or web address] It is important to note that some COVID mobile vaccine clinics are held outdoors and may be canceled in rainy or stormy conditions. To learn more about pediatric vaccinations (ages 5-11), we invite you to visit the [facility] webpage. https://www.[email or web address].org/p ages/9165-Zmbjf-Dadyhvpjdjb-Freq pbgkfh-Kicev-Elpfmsffb.html To learn more about the COVID-19 vaccine, we invite you to visit the CDC website for a list of frequently asked questions. https://www.cdc.gov/coronavirus/ 2019-ncov/vaccines/faq.html [facility] Patient Portal Access Instructions: Stay connected with your healthcare team and access your personal medical information anytime with the [email or web address] Patient Portal. If you would like a full copy of your medical records please contact the [facility] Medical Records Department Sunday through Sunday between 8a.m. and 4:30p.m. Please follow the directions below to access the portal: 1.Access the email account you provided upon registration to the [facility].2.Look for an invitation email from [facility].3.Open the email and access the invitation link: Accept Invitation to [email or web address].Fill in the required adames to create your account. Sign into [email or web address] with your username and password that you created in the above steps to stay up to date. You can then view a summary of results, a summary of your visits, and the ability to download your summaries to your computer or send the information securely to a physician. Remember that your healthcare information is confidential, so carefully consider who you will allow to register on the [email or web address] Patient Portal for access to your information. You can also access the [email or web address] Patient Portal on the [employer]. Simply click on Health Records under Health Data and then click on the [facility] logo. HOW TO SAFELY DISPOSE OF PRESCRIPTION MEDICATIONS Please use one of the following methods to safely dispose of your unused medications. 1.Use a drug disposal kit: the drug disposal pouch allows you to safely discard your old and unused drugs. Ask your nurse to give you one when you are discharged.2.Visit a local take-back location: Many local pharmacies and police departments have programs that collect old and unwanted prescription drugs. Call your local pharmacy or go to http://Jule Game.BBOXX/1I4Sg9h to find one close to you.3.Make use of household items: Use cat litter or old coffee grounds to dispose medications if other options are not available. Mix your drugs with these household products, seal them in an airtight container and throw it into the garbage. Call [facility]: [phone] to be sure your drugs can be disposed of in this way. Some medicines may require a different approach.4.Never flush your medications down the toilet. IF YOU HAVE BEEN PRESCRIBED AN OPIOIDS FOR PAIN If you have been prescribed an opioid (such as hydrocodone, oxycodone or morphine), it is critical to understand the possible side effects and risks of opioid pain medications. Even when taken as directed, opioids can have several side effects including: Tolerance, meaning you might need to take more of a medication for the same pain relief. Nausea, vomiting and/or constipation. Sleepiness, dizziness, dry mouth, confusion, depression or itching. Physical dependence, meaning you have withdrawal symptoms when a medication is stopped ? this can develop within a few days. KNOW YOUR RESPONSIBILITIES It is important to know exactly how much and how often to take the opioid pain medications you are prescribed. Never take opioids in higher amounts or more often than prescribed. Do not combine opioids with alcohol or other drugs that cause drowsiness, such as benzodiazepines, also known as benzos, including diazepam and alprazolam, muscle relaxants or sleep aids. Never sell or share prescription opioids. This is illegal. Store opioids in a secure place and out of reach of others (including children, family, friends and visitors). The last page(s) of this document has been signed and retained as a CHART COPY Signatures Patient Education Materials Thrombophlebitis, Superficial Medication Leaflets My discharge plan and instructions have been reviewed and explained to me and I,MATT CALABRESE understand my current condition and have read and understand these discharge instructions. I have received a written copy of the plan/instructions. If I have questions, I am aware that I should contact my doctor. Patient/Donor Relations Coordinator Signature: Date/Time: Relationship to Patient: Witness Name/Signature: Date/Time: [facility] 05-04-2024 Note . MICRO - Microbiology PROCEDURE: Urine Culture [*1] SOURCE: Urine, Clean Catch BODY SITE: COLLECTED DATE/TIME: 05/03/2024 10:12 EST RECEIVED DATE/TIME: 05/03/2024 16:44 EST START DATE/TIME: 05/03/2024 16:45 EST FREE TEXT SOURCE: FINAL REPORTS Final Report [] Verified Date/Time/Personnel: 05/04/2024 14:17 EST <10,000 cfu/ml. No Significant growth. Sensitivity not indicated. Performing Locations *1: This test was performed at: [address], [facility] , [facility] 05-01-2024 Note . MICRO - Microbiology PROCEDURE: Urine Culture [*1] SOURCE: Urine, Clean Catch BODY SITE: COLLECTED DATE/TIME: 04/29/2024 11:34 EST RECEIVED DATE/TIME: 04/29/2024 20:03 EST START DATE/TIME: 04/29/2024 20:03 EST FREE TEXT SOURCE: FINAL REPORTS Final Report [] Verified Date/Time/Personnel: 05/01/2024 07:44 EST 10,000 - 50,000 cfu/ml Multiple bacterial morphotypes present. Probable Contamination. Suggest recollection if clinically indicated. PRELIMINARY REPORTS Preliminary Report [] Verified Date/Time/Personnel: 04/30/2024 09:27 EST Culture results pending. Performing Locations *1: This test was performed at: [address], [facility] , [facility] 04-25-2024 Evaluation + Plan note Extrac belén from: Title:History and Physical Author:JEREMÍAS WHITE MD Date:04/25/24 Abnormal uterine bleeding (A UB) to OR for H BS follow up in 2 weeks for incision check reviewed postop limitations Chronic pelvic pain in female Orders: IV Catheter Insertion/Care, 04/25/24 6:07:00 EST, IV Care: q4h, Rotate when clinically indicated & q7day drsg change NPO, 04/25/24 6:07:00 EST, Constant Order Sequential Compression Device Application, 04/25/24 6:07:00 EST, Knee high, q4h, Bilateral Sign Consent, 04/25/24 6:07:00 EST, Once, Surgery/Procedure Sign Consent, 04/25/24 6:07:00 EST, Once, Blood Type and Screen (AO), 04/25/24 6:07:00 EST, URGENT (collect within 2 hrs), Blood, Once, Preferred Lab: [facility], Stop date 04/25/24 6:07:00 EST Vital Signs, 04/25/24 6:07:00 EST, 04/25/24 6:07:00 EST Future Appointments Appointment Date:05/01/2024 08:00:00 PM Scheduled Provider: Location:[facility] Appointment Type:SL C-PAP (Continuous Positive Airway Pre Appointment Date:05/02/2024 03:00:00 PM Scheduled Provider:JACK PRIEST Location:[facility] Appointment Type:PC OV Appointment Date:05/05/2024 09:30:00 AM Scheduled Provider: Location:[facility] Appointment Type:NUT Diet Visit Individual Appointment Date:06/09/2024 09:00:00 AM Scheduled Provider:JACK PRIEST Location:[facility] Appointment Type:PC OV Appointment Date:07/16/2024 04:00:00 PM Scheduled Provider:JACK PRIEST Location:[facility] Appointment Type:PC OV [facility] 12-06-2024 Hospital Discharge instructions Patient Education 04/25/2024 09:25:30 General Anesthesia, Adult, Care After General Anesthesia, Adult, Care After This sheet gives you information about how to care for yourself after your procedure. Your health care provider may also give you more specific instructions. If you have problems or questions, contact your health care provider. What can I expect after the procedure? After the procedure, the following side effects are common: Pain or discomfort at the IV site. Nausea. Vomiting. Sore throat. Trouble concentrating. Feeling cold or chills. Weak or tired. Sleepiness and fatigue. Soreness and body aches. These side effects can affect parts of the body that were not involved in surgery. Follow these instructions at home: For at least 24 hours after the procedure: Have a responsible adult stay with you. It is important to have someone help care for you until youare awake and alert. Rest as needed. Do not: ?Participate in activities in which you could fall or become injured. ?Drive. ?Use heavy machinery. ?Drink alcohol. ?Take sleeping pills or medicines that cause drowsiness. ?Make important decisions or sign legal documents. ?Take care of children on your own. Eating and drinking Follow any instructions from your health care provider about eating or drinking restrictions. When you feel hungry, start by eating small amounts of foods that are soft and easy to digest (bland), such as toast. Gradually return to your regular diet. Drink enough fluid to keep your urine pale yellow. If you vomit, rehydrate by drinking water, juice, or clear broth. General instructions If you have sleep apnea, surgery and certain medicines can increase your risk for breathing problems. Follow instructions from your health care provider about wearing your sleep device: ?Anytime you are sleeping, including during daytime naps. ?While taking prescription pain medicines, sleeping medicines, or medicines that make you drowsy. Return to your normal activities as told by your health care provider. Ask your health care provider what activities are safe for you. Take gayi-xza-ialxbmb and prescription medicines only as told by your health care provider. If you smoke, do not smoke without supervision. Keep all follow-up visits as told by your health care provider. This is important. Contact a health care provider if: You have nausea or vomiting that does not get better with medicine. You cannot eat or drink without vomiting. You have pain that does not get better with medicine. You are unable to pass urine. You develop a skin rash. You have a fever. You have redness around your IV site that gets worse. Get help right away if: You have difficulty breathing. You have chest pain. You have blood in your urine or stool, or you vomit blood. Summary After the procedure, it is common to have a sore throat or nausea. It is also common to feel tired. Have a responsible adult stay with you for the first 24 hours after general anesthesia. It is important to have someone help care for you until you are awake and alert. When you feel hungry, start by eating small amounts of foods that are soft and easy to digest (bland), such as toast. Gradually return to your regular diet. Drink enough fluid to keep your urine pale yellow. Return to your normal activities as told by your health care provider. Ask your health care provider what activities are safe for you. This information is not intended to replace advice given to you by your health care provider. Make sure you discuss any questions you have with your health care provider. Document Released: 08/13/2001 Document Revised: 05/10/2018 Document Reviewed: 12/21/2017 [employer] Patient Education 2020 [email or web address]. 04/25/2024 07:36:22 Total Laparoscopic Hysterectomy, Care After Total Laparoscopic Hysterectomy, Care After This sheet gives you information about how to care for yourself after your procedure. Your health care provider may also give you more specific instructions. If you have problems or questions, contact your health care provider. What can I expect after the procedure? After the procedure, it is common to have: Pain and bruising around your incisions. A sore throat, if a breathing tube was used during surgery. Fatigue. Poor appetite. Less interest in sex. If your ovaries were also removed, it is also common to have symptoms of menopause such as hot flashes, night sweats, and lack of sleep (insomnia). Follow these instructions at home: Bathing Do not take baths, swim, or use a hot tub until your health care provider approves. You may need toonly take showers for 2 3 weeks. Keep your bandage (dressing) dry until your health care provider says it can be removed. Incision care Follow instructions from your health care provider about how to take care of your incisions. Make sure you: ?Wash your hands with soap and water before you change your dressing. If soap and water are not available, use hand book solicitor. ?Change your dressing as told by your health care provider. ?Leave stitches (sutures), skin glue, or adhesive strips in place. These skin closures may need to stay in place for 2 weeks or longer. If adhesive strip edges start to loosen and curl up, you may trim the loose edges. Do not remove adhesive strips completely unless your health care provider tells you to do that. Check your incision area every day for signs of infection. Check for: ?Redness, swelling, or pain. ?Fluid or blood. ?Warmth. ?Pus or a bad smell. Activity Get plenty of rest and sleep. Do not lift anything that is heavier than 10 lbs (4.5 kg) for one month after surgery, or as long as told by your health care provider. Do not drive or use heavy machinery while taking prescription pain medicine. Do not drive for 24 hours if you were given a medicine to help you relax (sedative). Return to your normal activities as told by your health care provider. Ask your health care provider what activities are safe for you. Lifestyle Do not use any products that contain nicotine or tobacco, such as cigarettes and e-cigarettes. These can delay healing. If you need help quitting, ask your health care provider. Do not drink alcohol until your health care provider approves. General instructions Do not douche, use tampons, or have sex for at least 6 weeks, or as told by your health care provider. Take nmpu-mxc-bjswdse and prescription medicines only as told by your health care provider. To monitor yourself for a fever, take your temperature at least once a day during recovery. If you struggle with physical or emotional changes after your procedure, speak with your health care provider or a therapist. To prevent or treat constipation while you are taking prescription pain medicine, your health care provider may recommend that you: ?Drink enough fluid to keep your urine clear or pale yellow. ?Take qolp-mai-xltcric or prescription medicines. ?Eat foods that are high in fiber, such as fresh fruits and vegetables, whole grains, and beans. ?Limit foods that are high in fat and processed sugars, such as fried and sweet foods. Keep all follow-up visits as told by your health care provider. This is important. Contact a health care provider if: You have chills or a fever. You have redness, swelling, or pain around an incision. You have fluid or blood coming from an incision. Your incision feels warm to the touch. You have pus or a bad smell coming from an incision. An incision breaks open. You feel dizzy or light-headed. You have pain or bleeding when you urinate. You have diarrhea, nausea, or vomiting that does not go away. You have abnormal vaginal discharge. You have a rash. You have pain that does not get better with medicine. Get help right away if: You have a fever and your symptoms suddenly get worse. You have severe abdominal pain. You have chest pain. You have shortness of breath. You faint. You have pain, swelling, or redness on your leg. You have heavy vaginal bleeding with blood clots. Summary After the procedure it is common to have abdominal pain. Your provider will give you medication forthis. Do not take baths, swim, or use a hot tub until your health care provider approves. Do not lift anything that is heavier than 10 lbs (4.5 kg) for one month after surgery, or as long as told by your health care provider. Notify your provider if you have any signs or symptoms of infection after the procedure. This information is not intended to replace advice given to you by your health care provider. Make sure you discuss any questions you have with your health care provider. Document Released: 02/25/2014 Document Revised: 04/19/2018 Document Reviewed: 07/18/2017 [employer] Patient Education 2020 [email or web address]. 04/25/2024 07:36:12 Postop instructions The following instructions will help you know what to expect in the days following your procedure. Activities 1. You can resume all activities as tolerated; however, you will want to limit your activities the first 24 hours after surgery. 2. You can resume driving in 24 hours after surgery, as long as you are not taking narcotic pain medication. 3. You may shower. Sexual Activity Nothing per vagina for 6 weeks until cleared by physician Diet Resume a normal diet as tolerated. Vaginal Bleeding Change pads every 4 hours or as needed. Wash hands before and after changing your gillian-pad. Pain Control Abdominal pain and cramping is to be expected. You will be given a prescription for ibuprofen, or will be instructed to take knei-aki-oyuuaop ibuprofen. You may be given a prescription for pain medication. Please take as directed. Rest is an important part of the healing process. Special Instructions Do not drive, work with heavy equipment, or sign legal documents while taking pain medication and for at least 24 hours. If you had major surgery, do not drive for at least 4 weeks or until cleared by physician ie, hysterectomy or open laparotomy Rest at home for 24 hours following general anesthesia. Do not drink alcoholic beverages or take sleeping pills for the next 18 hours. You may experience muscle aches and a sore throat. If you experience difficulty breathing, chest pain, or shortness of breath seek immediate medical attention. When to Contact Your Physician If you are experiencing persistent nausea and vomiting for more than 24 hours. If, after the first day of surgery, you have heavy bleeding with clots, or if you soak a sanitary pad within 2 hour. If you have signs of infection (pain not relieved with ibuprofen and/or narcotic pain medication, foul odor/discharge, or a fever of 101 degrees or higher). Follow-up Please be sure to keep your scheduled post-op appointment in 2-6 weeks Follow Up Care 02/05/2024 10:43:50 With:ARIEL WHITE MD Address: [address] [place] [phone] When:Within 2 Week(s) Comments:CALL TO SCHEDULE FOLLOW UP APPOINTMENT [facility] 12-06-2024 Summary of episode note Discharge Instructions Thank you for allowing [facility] to assist you with your healthcare needs. The following is importantdischarge information regarding your hospital visit. Your Care Team JACK PRIEST Your Diagnosis Abnormal uterine bleeding (AUB) Chronic pelvic pain in female Postoperative pain What to do next Scheduled Follow-Up Appointments Appointment Type When With Where Contact Information StatusSL C-PAP (Continuous Positive Airway Pre05/01/2024 08:00 PM [facility] Sleep Lab [phone] Confirmed PC OV 05/02/2024 03:00 PM JACK HAMMER [address] [phone] Confirmed NUT Diet Visit Individual 05/05/2024 09:30 AM [facility] Diet Visits [phone] Confirmed PC OV 06/09/2024 09:00 AM JACK HAMMER [address] [phone] Confirmed PC OV 07/16/2024 04:00 PM JACK HAMMER [address] [phone] Confirmed Follow Up Appointments Follow Up with ARIEL WHITE MD When:In 2 weeks Where:[address] [place] [phone] Additional Information: CALL TO SCHEDULE FOLLOW UP APPOINTMENT The Following Activity and Diet Have Been Ordered for You Discharge Activity - Ordered -- Lifting Restricted less than 10 pounds, 04/25/24 9:17:00 EST Discharge Driving Restrictions - Ordered -- No driving until pain-free, 04/25/24 9:17:00 EST Discharge Return to Work, School, or Sports (Discharge Return to status) - Ordered -- within 2 weeks, May return to: work, 04/25/24 9:17:00 EST Discharge Diet - Ordered -- Follow the post-operative/post-procedure diet instructions provided by your physician's office.,04/25/24 9:17:00 EST The Following Equipment Has Been Ordered for You Discharge Home Equipment Discharge Wound Care - Ordered -- Follow the post-operative/post-procedure wound care instructions provided by your physician's office., 04/25/24 9:17:00 EST Allergies Zithromax Hives penicillins Hives traZODone Suicidal ideation Medications Please ask your primary doctor or pharmacist before taking any other medication not listed, including over the counter drugs, herbal medications, vitamins and or supplements as they may interact withyour home medications. What How Much When Why Instructions Last Dose New acetaminophen (Tylenol Extra Strength 500 mg oraltablet) 1 tab(s) by mouth Every 4 hours Duration: 14 Days Refills: 1 [place] [facility] [place] acetaminophen-oxyCODONE (Percocet 5 mg-325 mg oral tablet) 1 tab(s) by mouth Every 6 hours as needed for for pain Postoperative pain Duration: 7 Days hold naltrexone until pain medication completed not to exceed 4000 mg acetaminophen per day [place] [facility] [place] New ibuprofen (ibuprofen 800 mg oral tablet) 1 tab(s) by mouth Every 8 hours Duration: 14 Days [place] [facility] [place] Unchanged DME (Prescription MISCellaneous) See instructions Migraines Deep tissue massage once weekly x4 weeks for chronic migraines. Unchanged ergocalciferol (Vitamin D2 1.25 mg (50,000 intl units) oral capsule) 1 cap by mouth Every week Vitamin D deficiency Duration: 90 Days Unchanged ferrous sulfate (ferrous sulfate 325 mg (65 mg elemental iron) oral tablet) 1 tab(s) by mouth Once a day Iron deficiency Duration: 90 Days Unchanged herbal/ nutritional product (flax seed oil 1000 mg oral capsule) 1 cap by mouth Once a day HLD (hyperlipidemia) Duration: 90 Days Unchanged hydrOXYzine (hydrOXYzine hydrochloride 25 mg oral tablet) 1 tab(s) by mouth Four (4) times a day as needed for for anxiety Unchanged ketoconazole topical (ketoconazole 2% topical shampoo) 1 application Topical Every week Unchanged magnesium hydroxide (magnesium hydroxide 400 mg oral tablet, chewable) 1 Each by mouth Once a day Constipation Duration: 90 Days patient would like these added to her pill pack Unchanged naltrexone (naltrexone 50 mg oral tablet) 1 tab(s) by mouth Every day Unchanged ondansetron (ondansetron 4 mg oral tablet, disintegrating) 1 tab(s) by mouth Every 8 hours as needed for as needed for nausea/vomiting Unchanged pantoprazole (pantoprazole 40 mg oral enteric coated tablet) 1 tab(s) by mouth Once a day Chronic nausea Duration: 90 Days Unchanged prazosin (prazosin 2 mg oral capsule) 1 cap by mouth Daily at bedtime Unchanged QUEtiapine (QUEtiapine 50 mg oral tablet, extended release) 2 tab(s) by mouth Once a day Unchanged TNF-Med (MiscMED Miscellaneous Medication) See instructions Takes Blood Sugar [place], 1 cap daily Unchanged valACYclovir (valACYclovir 1 g oral tablet) 1 tab(s) by mouth Two (2) times a day Duration: 5 Days Pharmacy Information [facility]: [address] [place] [address] [address] [place], [place] [id number] [phone] Please take this list to your next doctor s visit. Bring all medications you take, including over the counter medications, herbals and other supplements with you to your doctor s visit. Patients and families are reminded to discard old lists and to update any records with all medication providers or retail pharmacies. Medication Leaflets acetaminophen and oxycodone (a SEET a MIN oh fen and OX i KOE done) Endocet 10/325, Endocet 2.5/325, Endocet 5/325, Endocet 7.5/325, Nalocet, Percocet, Prolate What is the most important information I should know about acetaminophen and oxycodone? MISUSE OF OPIOID MEDICINE CAN CAUSE ADDICTION, OVERDOSE, OR . Keep the medication in a place where others cannot get to it. Taking opioid medicine during may cause life-threatening withdrawal symptoms in the . Fatal side effects can occur if you use opioid medicine with alcohol, or with other drugs that cause drowsiness or slow your breathing. Stop taking this medicine and call your doctor right away if you have skin redness or a rash that spreads and causes blistering and peeling. What is acetaminophen and oxycodone? Acetaminophen and oxycodone is a combination medicine used to relieve moderate to severe pain. Acetaminophen and oxycodone contains an opioide medicine and may be habit-forming. Acetaminophen and oxycodone may also be used for purposes not listed in this medication guide. What should I discuss with my healthcare provider before taking acetaminophen and oxycodone? You should not use this medicine if you are allergic to acetaminophen or oxycodone, or if you have: severe asthma or breathing problems; or a blockage in your stomach or intestines. Tell your doctor if you have ever had: breathing problems, sleep apnea; liver disease; a drug or alcohol addiction; kidney disease; a head injury or seizures; urination problems; or problems with your thyroid, pancreas, or gallbladder. If you use opioid medicine while you are , your baby could become dependent on the drug. This can cause life-threatening withdrawal symptoms in the baby after it is born. Babies born dependent on opioids may need medical treatment for several weeks. Ask a doctor before using opioid medicine if you are . Tell your doctor if you notice severe drowsiness or slow breathing in the nursing baby. How should I take acetaminophen and oxycodone? Follow all directions on your prescription label. Never take this medicine in larger amounts, or for longer than prescribed. An overdose can damage your liver or cause . Tell your doctor if you feel an increased urge to use more of this medicine. Never share opioid medicine with another person, especially someone with a history of drug abuse oraddiction. MISUSE CAN CAUSE ADDICTION, OVERDOSE, OR . Keep the medicine in a place where others cannot get to it. Selling or giving away opioid medicine is against the law. Measure liquid medicine carefully. Use the dosing syringe provided, or use a medicine dose-measuring device (not a kitchen spoon). If you need surgery or medical tests, tell the doctor ahead of time that you are using this medicine. You should not stop using this medicine suddenly. Follow your doctor's instructions about tapering your dose. Store at room temperature away from moisture and heat. Keep track of your medicine. You should be aware if anyone is using it improperly or without a prescription. Do not keep leftover opioid medication. Just one dose can cause in someone using this medicine accidentally or improperly. Ask your pharmacist where to locate a drug take-back disposal program.If there is no take-back program, flush the unused medicine down the toilet. What happens if I miss a dose? Since this medicine is used for pain, you are not likely to miss a dose. Skip any missed dose if itis almost time for your next dose. Do not use two doses at one time. What happens if I overdose? Seek emergency medical attention or call the Poison Help line at . An overdose of this medicine can be fatal, especially in a child or other person using the medicine without a prescription. Overdose symptoms may include nausea, vomiting, sweating, severe drowsiness, pinpoint pupils, slow breathing, or no breathing. Your doctor may recommend you get naloxone (a medicine to reverse an opioid overdose) and keep it with you at all times. A person caring for you can give the naloxone if you stop breathing or don't wake up. Your caregiver must still get emergency medical help and may need to perform CPR (cardiopulmonary resuscitation) on you while waiting for help to arrive. Anyone can buy naloxone from a pharmacy or local health department. Make sure any person caring foryou knows where you keep naloxone and how to use it. What should I avoid while taking acetaminophen and oxycodone? Avoid driving or operating machinery until you know how this medicine will affect you. Dizziness ordrowsiness can cause falls, accidents, or severe injuries. Do not drink alcohol. Dangerous side effects or could occur. Ask a doctor or pharmacist before using any other medicine that may contain acetaminophen (sometimes abbreviated as APAP). Taking certain medications together can lead to a fatal overdose. What are the possible side effects of acetaminophen and oxycodone? Get emergency medical help if you have signs of an allergic reaction: hives; difficulty breathing; swelling of your face, lips, tongue, or throat. Opioid medicine can slow or stop your breathing, and may occur. A person caring for you should give naloxone and/or seek emergency medical attention if you have slow breathing with long pauses,blue colored lips, or if you are hard to wake up. In rare cases, acetaminophen may cause a severe skin reaction that can be fatal. This could occur even if you have taken acetaminophen in the past and had no reaction. Stop taking this medicine and call your doctor right away if you have skin redness or a rash that spreads and causes blistering andpeeling. Call your doctor at once if you have: noisy breathing, sighing, shallow breathing, breathing that stops; a light-headed feeling, like you might pass out; weakness, tiredness, fever, unusual bruising or bleeding; confusion, unusual thoughts or behavior; problems with urination; liver problems--nausea, upper stomach pain, tiredness, loss of appetite, dark urine, meli-colored stools, jaundice (yellowing of the skin or eyes); low cortisol levels-- nausea, vomiting, loss of appetite, dizziness, worsening tiredness or weakness; or high levels of serotonin in the body--agitation, hallucinations, fever, sweating, shivering, fast heart rate, muscle stiffness, twitching, loss of coordination, nausea, vomiting, diarrhea. Serious breathing problems may be more likely in older adults and in those who are debilitated or have wasting syndrome or chronic breathing disorders. Common side effects include: dizziness, drowsiness, feeling tired; feelings of extreme happiness or sadness; nausea, vomiting, stomach pain; constipation; or headache. This is not a complete list of side effects and others may occur. Call your doctor for medical advice about side effects. You may report side effects to FDA at 5-866-WZM-7851. What other drugs will affect acetaminophen and oxycodone? You may have breathing problems or withdrawal symptoms if you start or stop taking certain other medicines. Tell your doctor if you also use an antibiotic, antifungal medication, heart or blood pressure medication, seizure medication, or medicine to treat HIV or hepatitis C. Opioid medication can interact with many other drugs and cause dangerous side effects or . Be sure your doctor knows if you also use: cold or allergy medicines, bronchodilator asthma/COPD medication, or a diuretic ('water pill'); medicines for motion sickness, irritable bowel syndrome, or overactive bladder; other opioids--opioid pain medicine or prescription cough medicine; a sedative like Valium--diazepam, alprazolam, lorazepam, Xanax, Klonopin, Versed, and others; drugs that make you sleepy or slow your breathing--a sleeping pill, muscle relaxer, medicine to treat mood disorders or mental illness; drugs that affect serotonin levels in your body--a stimulant, or medicine for depression, Parkinson's disease, migraine headaches, serious infections, or nausea and vomiting. This list is not complete. Other drugs may affect acetaminophen and oxycodone, including prescription and eqkc-gze-qbofzph medicines, vitamins, and herbal products. Not all possible interactions are listed here. Where can I get more information? Your doctor or pharmacist can provide more information about acetaminophen and oxycodone. Remember, keep this and all other medicines out of the reach of children, never share your medicines with others, and use this medication only for the indication prescribed. Every effort has been made to ensure that the information provided by [employer]') is accurate, up-to-date, and complete, but no guarantee is made to that effect. Drug information contained herein may be time sensitive. [employer] information has been compiled for use by healthcare practitioners and consumers in the [place] and therefore [employer] does not warrant that uses outside of the [place] are appropriate, unless specifically indicated otherwise. [employer] drug information does not endorse drugs, diagnose patients or recommend therapy. [employer] drug information isan informational resource designed to assist licensed healthcare practitioners in caring for their p atients and/or to serve consumers viewing this service as a supplement to, and not a substitute for, the expertise, skill, knowledge and judgment of healthcare practitioners. The absence of a warningfor a given drug or drug combination in no way should be construed to indicate that the drug or drug combination is safe, effective or appropriate for any given patient. [employer] does not assume any responsibility for any aspect of healthcare administered with the aid of information [employer] provides. The information contained herein is not intended to cover all possible uses, directions, precautions, warnings, drug interactions, allergic reactions, or adverse effects. If you have questions about the drugs you are taking, check with your doctor, nurse or pharmacist. Copyright 5055-0435 [employer] Version: 22.. Revision Date: 12/21/2022. Education Materials General Anesthesia, Adult, Care After This sheet gives you information about how to care for yourself after your procedure. Your health care provider may also give you more specific instructions. If you have problems or questions, contact your health care provider. What can I expect after the procedure? After the procedure, the following side effects are common: Pain or discomfort at the IV site. Nausea. Vomiting. Sore throat. Trouble concentrating. Feeling cold or chills. Weak or tired. Sleepiness and fatigue. Soreness and body aches. These side effects can affect parts of the body that were not involved in surgery. Follow these instructions at home: For at least 24 hours after the procedure: Have a responsible adult stay with you. It is important to have someone help care for you until youare awake and alert. Rest as needed. Do not: ? Participate in activities in which you could fall or become injured. ? Drive. ? Use heavy machinery. ? Drink alcohol. ? Take sleeping pills or medicines that cause drowsiness. ? Make important decisions or sign legal documents. ? Take care of children on your own. Eating and drinking Follow any instructions from your health care provider about eating or drinking restrictions. When you feel hungry, start by eating small amounts of foods that are soft and easy to digest (bland), such as toast. Gradually return to your regular diet. Drink enough fluid to keep your urine pale yellow. If you vomit, rehydrate by drinking water, juice, or clear broth. General instructions If you have sleep apnea, surgery and certain medicines can increase your risk for breathing problems. Follow instructions from your health care provider about wearing your sleep device: ? Anytime you are sleeping, including during daytime naps. ? While taking prescription pain medicines, sleeping medicines, or medicines that make you drowsy. Return to your normal activities as told by your health care provider. Ask your health care provider what activities are safe for you. Take eycq-cuz-afiehxj and prescription medicines only as told by your health care provider. If you smoke, do not smoke without supervision. Keep all follow-up visits as told by your health care provider. This is important. Contact a health care provider if: You have nausea or vomiting that does not get better with medicine. You cannot eat or drink without vomiting. You have pain that does not get better with medicine. You are unable to pass urine. You develop a skin rash. You have a fever. You have redness around your IV site that gets worse. Get help right away if: You have difficulty breathing. You have chest pain. You have blood in your urine or stool, or you vomit blood. Summary After the procedure, it is common to have a sore throat or nausea. It is also common to feel tired. Have a responsible adult stay with you for the first 24 hours after general anesthesia. It is important to have someone help care for you until you are awake and alert. When you feel hungry, start by eating small amounts of foods that are soft and easy to digest (bland), such as toast. Gradually return to your regular diet. Drink enough fluid to keep your urine pale yellow. Return to your normal activities as told by your health care provider. Ask your health care provider what activities are safe for you. This information is not intended to replace advice given to you by your health care provider. Make sure you discuss any questions you have with your health care provider. Document Released: 08/13/2001 Document Revised: 05/10/2018 Document Reviewed: 12/21/2017 [employer] Patient Education 2020 [email or web address]. Total Laparoscopic Hysterectomy, Care After This sheet gives you information about how to care for yourself after your procedure. Your health care provider may also give you more specific instructions. If you have problems or questions, contact your health care provider. What can I expect after the procedure? After the procedure, it is common to have: Pain and bruising around your incisions. A sore throat, if a breathing tube was used during surgery. Fatigue. Poor appetite. Less interest in sex. If your ovaries were also removed, it is also common to have symptoms of menopause such as hot flashes, night sweats, and lack of sleep (insomnia). Follow these instructions at home: Bathing Do not take baths, swim, or use a hot tub until your health care provider approves. You may need toonly take showers for 2 3 weeks. Keep your bandage (dressing) dry until your health care provider says it can be removed. Incision care Follow instructions from your health care provider about how to take care of your incisions. Make sure you: ? Wash your hands with soap and water before you change your dressing. If soap and water are not available, use hand book solicitor. ? Change your dressing as told by your health care provider. ? Leave stitches (sutures), skin glue, or adhesive strips in place. These skin closures may need to stay in place for 2 weeks or longer. If adhesive strip edges start to loosen and curl up, you may trim the loose edges. Do not remove adhesive strips completely unless your health care provider tells you to do that. Check your incision area every day for signs of infection. Check for: ? Redness, swelling, or pain. ? Fluid or blood. ? Warmth. ? Pus or a bad smell. Activity Get plenty of rest and sleep. Do not lift anything that is heavier than 10 lbs (4.5 kg) for one month after surgery, or as long as told by your health care provider. Do not drive or use heavy machinery while taking prescription pain medicine. Do not drive for 24 hours if you were given a medicine to help you relax (sedative). Return to your normal activities as told by your health care provider. Ask your health care provider what activities are safe for you. Lifestyle Do not use any products that contain nicotine or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 AVAILABLE Confirmed by MD SHELTON VINAYAK ([id number]) on 03/06/2023 11:17:30 PM Recent Results (from the past 73330 hour(s)) ECHO Collection Time: 08/13/23 9:33 AM Impression CONCLUSIONS: - Technically difficult exam due to body habitus. - Exam indication: Chest Pain - The left ventricle is normal in size. Left ventricular systolic function is normal. EF = 61 5% (2D 4-ch.) Normal left ventricular diastolic function. - The right ventricle is normal in size. Right ventricular systolic function is normal. - There are no significant valvular abnormalities. - The patient has not had a prior CC echocardiographic exam for comparison. * * * Final * * * Instructions Given to Patient: Instructions located in the after visit summary. Patient given verbal and written preop instructions and voices comprehension and compliance. SIGNATURE: Enrico Pierre APRN.CNP PATIENT NAME: Matt Calabrese DATE: January 18, 2024 TIME: 9:30 AM PAGER/CONTACT #: documented in this encounterReg[facility] Telephone encounter Note * Telephone Encounter - Mary Grace Gonzalez HUC - 01/16/2024 4:27 PM EDT Patient called. Pt is confused, she was approved for her surgery, see note from [facility] on 01/14/24. But she just received some letters in my chart stating special circumstance review. Surgery was not canceled, is she approved? She still wants to make sure surgery is still happening. [facility]08-28-2024 Miscellaneous Notes* Telephone Encounter - Mary Grace Gonzalez HUC - 01/16/2024 4:27 PM EDT Patient called. Pt is confused, she was approved for her surgery, see note from [facility] on 01/14/24. But she just received some letters in my chart stating special circumstance review. Surgery was not canceled, is she approved? She still wants to make sure surgery is still happening. documented in this encounterReg[facility]-27-2024 Telephone encounter Note * Telephone Encounter - Manda Ramsey APRN.CNP - 01/15/2024 5:17 PM EDT Sent MC message to patient. The order was not placed by this department. Manda Ramsey APRN, CNP, [employer] INTER[employer] [facility] Work Phone: [phone]) 854-841508-27-2024 Miscellaneous Notes* Telephone Encounter - Manda Ramsey APRN.CNP - 01/15/2024 5:17 PM EDT Sent MC message to patient. The order was not placed by this department. Manda Ramsey APRN, JERALD, [employer] INTERNSH[employer] * Telephone Encounter - Jacy Cavazos - 01/15/2024 4:38 PM EDT patient calling in and said someone from [facility] called her and it was an automated phone call about home health care,had all of her information including home address. Pt states it was a [facility] number and she redialed it and it brought her to a different pierce first and then she said he routed the conversation to our dept. Patient said the automated phone call said.. This is the [facility] home health care provider calling to remind you to be home on Sunday between 12-4pm. Press opt. 1 if you will be home between 12- 4pm or press 2 if you wont be home... The patient did not press any option because she was informed she would not need home health care and that's why she is confused why she received this automated phone call. I did not see anything on the chart stating pt would need home health care and I did not see anything documented on chart that someone called pt. Will pt need home health care? Has someone called patient? documented in this encounterReg[facility]-27-2024 Telephone encounter Note * Telephone Encounter - Jacy Cavazos - 01/15/2024 4:38 PM EDT patient calling in and said someone from [facility] called her and it was an automated phone call about home health care,had all of her information including home address. Pt states it was a [facility] number and she redialed it and it brought her to a different pierce first and then she said he routed the conversation to our dept. Patient said the automated phone call said.. This is the [facility] home health care provider calling to remind you to be home on Sunday between 12-4pm. Press opt. 1 if you will be home between 12- 4pm or press 2 if you wont be home... The patient did not press any option because she was informed she would not need home health care and that's why she is confused why she received this automated phone call. I did not see anything on the chart stating pt would need home health care and I did not see anything documented on chart that someone called pt. Will pt need home health care? Has someone called patient? [facility]08-[facility] Nurse Note* Minoo Menendez LPN - 01/07/2024 4:28 PM EDT During office visit with Tamara Maxwell APRN.CNP, it was determined that the patient was unsafe andneeded to be evaluated for some suicidal thoughts. Patient was then monitored and not left alone until EMS arrived. EMS arrived and spoke to patient, and patient did not leave with EMS, she left of her own free will. Patient stated that she understood why she was being monitored and evaluated. [facility]08-19-[facility] Nurse Note* Minoo Menendez LPN - 01/07/2024 4:28 PM EDT During office visit with Tamara Maxwell APRN.CNP, it was determined that the patient was unsafe andneeded to be evaluated for some suicidal thoughts. Patient was then monitored and not left alone until EMS arrived. EMS arrived and spoke to patient, and patient did not leave with EMS, she left of her own free will. Patient stated that she understood why she was being monitored and evaluated. documented in this encounterRegency [facility]08-19-2024 NoteHNO ID: [id number] Author: MINOO MENENDEZ LPN Service: ? Author Type: LICENSED NURSE Type: Progress Notes Filed: 01/07/2024 14:09 Note Text: Review of Systems Constitutional: Negative for activity change, chills, fever and unexpected weight change. Gastrointestinal: Negative for bowel retention or incontinence Genitourinary: Negative for difficulty urinating. Negative for bladder retention or incontinence Musculoskeletal: Positive for back pain, neck pain and neck stiffness. Negative for arthralgias, gait problem, joint swelling and myalgias. Neurological: Positive for weakness and headaches. Negative for numbness. Psychiatric/Behavioral: Positive for sleep disturbance. Negative for dysphoric mood and suicidal ideas. The patient is nervous/anxious.[facility]08-19-2024 History of Present illness Narrative* Minoo Menendez LPN - 01/07/2024 1:05 PM EDT Review of Systems Constitutional: Negative for activity change, chills, fever and unexpected weight change. Gastrointestinal: Negative for bowel retention or incontinence Genitourinary: Negative for difficulty urinating. Negative for bladder retention or incontinence Musculoskeletal: Positive for back pain, neck pain and neck stiffness. Negative for arthralgias, gait problem, joint swelling and myalgias. Neurological: Positive for weakness and headaches. Negative for numbness. Psychiatric/Behavioral: Positive for sleep disturbance. Negative for dysphoric mood and suicidal ideas. The patient is nervous/anxious. * Tamara Maxwell APRN.CATHEAD WORKER - 01/07/2024 1:00 PM EDT Images from the original note were not included. [facility] Today's Date: 01/07/24 Name: Matt Calabrese : 2000 Purpose: New Patient Evaluation Chief complaint: back pain Referring Clinician: Pertinent Past Medical History: major depression, PTSD Pertinent Past Surgeries: no spine Pertinent social hx: alcohol abuse History of Present Illness (HPI): 01/07/2024 - Initial HPI (Obtained by Tamara Maxwell CNP). DURATION AND ONSET: The pain complaint has been present for approximately for years - last 6 monthsworsening.Previously a patient at [place] [facility] with Dr. Rebel Arroyo. Imagingshowed mild T11-12 disc bulge for which he could not account for her pain complaints. Denies traumaor provocation. She was seeing Dr. Coy pain management in [place] where she has injections for fa cet pain. RED FLAG SYMPTOMS: denies red flags. She did not give a reason for coming from [place] to [place] when she was already established in [place] with pain management. PAIN DESCRIPTION: Timing: Constant Character: Aching, Burning, Dull Primary Location: lumbar Radiation: RLE posterior mid thigh Exacerbating factors: Unable to Pinpoint Exacerbating Factors/Positions Relieving factors: Unable to Pinpoint Positions/Factors that are Mitigating Interferes with: everything Currently in PT - started 3-4 months ago - helping She sees psychiatry in [place] - I do not see documentation in EPIC or scanned documents Her friend Natalia is present in the room Current Pain Medications: Neuropathics: NSAIDS: Muscle Relaxants: Topicals: Other Prescription or OTC Pain Medications: Naltrexone Opioids (when applicable): Anti-depressants or Mood-Stabilizers: Trazodone, Zoloft, Seroquel Anti-Coagulants: None Therapies Attended (Current or Most Recent): Continues PT for another 2 months 01/07/2024 AG SPINE COMBINATION Questionnaire GREENLIGHT Completed Date 01/07/2024 Questionnaire Opiod Risk Tool Completed Date 01/07/2024 Comments high - 10 Greenlight Questionnaire GREENLIGHT Completed Date 01/07/2024 Opioid Risk Tool Opiod Risk Tool Date Completed 01/07/2024 Comments high - 10 MALORIE-7 Anxiety Score 8 Completed Date 01/07/2024 PHQ9P Score 14 Completed Date 01/07/2024 (All drug screens are appropriate unless indicated otherwise) COLUMBIA-SUICIDE SEVERITY RATING SCALE Screen Version - Recent Past month Ask questions that are bolded and underlined. YES/NO Ask Questions 1 and 2 1) Have you wished you were or wished you could go to sleep and not wake up? x 2) Have you actually had any thoughts of killing yourself? yes If YES to 2, ask questions 3, 4, 5, and 6. If NO to 2, go directly to question 6. 3) Have you been thinking about how you might do this? E.g. I thought about taking an overdose but I never made a specific plan as to when where or how I would actually do it .and I would never go through with it. yes 4) Have you had these thoughts and had some intention of acting on them? As opposed to I have the thoughts but I definitely will not do anything about them. yes 5) Have you started to work out or worked out the details of how to kill yourself? Do you intend tocarry out this plan? yes 6) Have you ever done anything, started to do anything, or prepared to do anything to end your life? Examples: Collected pills, obtained a gun, gave away valuables, wrote a will or suicide note, took out pills but didn't swallow any, held a gun but changed your mind or it was grabbed from your hand,went to the roof but didn't jump; or actually took pills, tried to shoot yourself, cut yourself, tried to hang yourself, etc. If YES, ask: Was this within the past three months? YES/NO yes yes Low Risk Moderate Risk High Risk Treatment History: PAIN PROCEDURES: DATE PROCEDURE IMPROVEMENT To date, no interventional pain management procedures performed at this practice. MEDICATIONS Taken TO DATE (for the chief complaint(s)): Neuropathics: None NSAIDS: None Muscle Relaxants: None Topicals: None Other Prescription or OTC Pain Medications: None Opioids: None Compliance: PDMP website checked and validated on 01/07/2024 by Tamara Maxwell APRN.CATHEAD WORKER All prescriptions have been APPROPRIATELY filled. No suspicious activity was identified. 01/07/2024 AG SPINE COMBINATION Questionnaire GREENLIGHT Completed Date 01/07/2024 Questionnaire Opiod Risk Tool Completed Date 01/07/2024 Comments high - 10 (All drug screens are appropriate unless indicated otherwise) Risk Assessment: MALORIE-7: 01/07/2024 MALORIE - 7 SCORES Score 8 (0-4) minimal anxiety, (5-9) mild anxiety, (10-14) moderate anxiety, (15-21) severe anxiety PHQ-9: 01/07/2024 PHQ-9 Score 14 (0-4) minimal depression, (5-9) mild depression, (10-14) moderate depression, (15-19) moderately severe depression, (20-27) severe depression Greenlight Questionnaire GREENLIGHT Completed Date 01/07/2024 Opioid Risk Tool Opiod Risk Tool Date Completed 01/07/2024 Comments high - 10 MALORIE-7 Anxiety Score 8 Completed Date 01/07/2024 PHQ9P Score 14 Completed Date 01/07/2024 Diagnostic Studies: Relevant Imaging: MRI Spine Report No resulted procedures found. Electrodiagnostic Study (EMG): None Recent Labs: Creatinine Date Value Ref Range Status 02/26/2023 0.65 0.58 - 0.96 mg/dL Final No results found for: EGFR No results found for: PCGLUCOSE Current Medications, Past Medical History, Past Surgical History, Family History, Social History and Review of Systems: On today's date, noted above, I have confirmed and edited as necessary, the PFSH and ROS obtained by others. Physical Exam: 01/07/24 1310 Pulse: 100 Resp: 14 SpO2: 95% Physical Exam Constitutional: Appearance: Normal appearance. HENT: Head: Normocephalic. Right Ear: External ear normal. Left Ear: External ear normal. Eyes: Extraocular Movements: Extraocular movements intact. Cardiovascular: Pulses: Normal pulses. Pulmonary: Effort: Pulmonary effort is normal. Musculoskeletal: Comments: : BLE SLR negative- seated position BLE strength 5/5 and symmetrical BLE sensation intact and symmetrical BLE patellar reflexes intact difficult to elicit Tenderness L3-S1 axial Full lumbar ROM Ilia's negative Gait unassisted Skin: General: Skin is warm and dry. Capillary Refill: Capillary refill takes 2 to 3 seconds. Neurological: General: No focal deficit present. Mental Status: patient is alert and oriented to person, place, and time. Psychiatric: Mood and Affect: Mood normal. Behavior: Behavior normal. IMPRESSION: 23 year old female presents with complaint(s) of axial lumbar pain. She did not give a reason for transferring from [place] to [place] when she was already established in [place] with pain management. High Risk [facility] Suicide Protocol - she answered questions differently with me than when asked by Minoo SALOMON upon admission- Thomas NINA and Natalia ( friend) in room with patient. Because she was juststarted on her psychiatric medications 12/19/23 and her suicidal ideations and plan are within 3 months I will in due diligence have her evaluated in the ED. I can see not record of psychiatric evaluation in [facility]. Police and EMT here to evaluate - she denies suicidal and homicidal ideations to them, therefore, she was discharged with her friend Natalia and states she will continue psychiatric treatment in [place]. Diagnoses: (M54.6) Midline thoracic back pain, unspecified chronicity (primary encounter diagnosis) (M54.50) Lumbar pain (M47.816) Lumbar spondylosis PLAN: Matt Calabrese would benefit from the following to reach personal goals for decreasing pain, improving function and work participation, and/or improving quality of life: Medications: Discussed philosophy of practice as interventional in nature. Patient understands opioids will not be prescribed. Interventional Procedures: Medial Branch Block (Diagnostic only, NO STEROIDS) under fluoroscopic guidance BILATERAL SIDES at L4-5 and L5-S1 Armature And Rotor Winder Needed: Medial Branch Blocks - YES Anticoagulant - Hold Needed: N/A (Not currently on Anticoagulants) Anticoagulant - Currently Taking: None Allergies (relevant): None Scheduling - Mobility (Can Patient independently transfer on/off an OR or Procedure table?): YES (May schedule at any location) Scheduling - Additional Info: None Studies: None Functional Alevism: NONE Referrals: No additional considerations at present Follow-up: after MBB Depending on response to the above plan, consider: RFA Compliance and Clinic Policies Reviewed and/or Discussed Today: None Attribution: In addition to reviewing the information noted above, some elements copied from my most recent clinical note(s), including the physical exam (completed in entirety today), and the impression and plan sections, have been updated where appropriate. All reflect current medical decision making from today's date. Tamara Maxwell APRN.[facility]ALD [facility] documented in this encounterReg[facility]08-19-2024 Instructions* Patient Instructions* Tamara Maxwell APRN.CNP - 01/07/2024 1:04 PM EDT Ice and heat as tolerated Activity as tolerated documented in this encounterRegency Hospital [facility]08-19-2024 NoteHNO ID: [id number] Author: TAMARA MAXWELL APRN.CNP Service: ? Author Type: Nurse Practitioner Type: Progress Notes Filed: 01/07/2024 17:50 Note Text: [facility] Today's Date: 01/07/24 Name: Matt Calabrese : 2000 Purpose: New Patient Evaluation Chief complaint: back pain Referring Clinician: Pertinent Past Medical History: major depression, PTSD Pertinent Past Surgeries: no spine Pertinent social hx: alcohol abuse History of Present Illness (HPI): 01/07/2024 - Initial HPI (Obtained by Tamara Maxwell CNP). DURATION AND ONSET: The pain complaint has been present for approximately for years - last 6 months worsening.Previously a patient at [place] [facility] with Dr. Rebel Arroyo. Imaging showed mild T11-12 disc bulge for which he could not account for her pain complaints. Denies trauma or provocation. She was seeing Dr. Coy pain management in [place] where she has injections for facet pain. RED FLAG SYMPTOMS: denies red flags. She did not give a reason for coming from [place] to [place] when she was already established in [place] with pain management. PAIN DESCRIPTION: Timing: Constant Character: Aching, Burning, Dull Primary Location: lumbar Radiation: RLE posterior mid thigh Exacerbating factors: Unable to Pinpoint Exacerbating Factors/Positions Relieving factors: Unable to Pinpoint Positions/Factors that are Mitigating Interferes with: everything Currently in PT - started 3-4 months ago - helping She sees psychiatry in [place] - I do not see documentation in EPIC or scanned documents Her friend Natalia is present in the room Current Pain Medications: Neuropathics: NSAIDS: Muscle Relaxants: Topicals: Other Prescription or OTC Pain Medications: Naltrexone Opioids (when applicable): Anti-depressants or Mood-Stabilizers: Trazodone, Zoloft, Seroquel Anti-Coagulants: None Therapies Attended (Current or Most Recent): Continues PT for another 2 months 01/07/2024 AG SPINE COMBINATION Questionnaire GREENLIGHT Completed Date 01/07/2024 Questionnaire Opiod Risk Tool Completed Date 01/07/2024 Comments high - 10 Greenlight Questionnaire GREENLIGHT Completed Date 01/07/2024 Opioid Risk Tool Opiod Risk Tool Date Completed 01/07/2024 Comments high - 10 MALORIE-7 Anxiety Score 8 Completed Date 01/07/2024 PHQ9P Score 14 Completed Date 01/07/2024 (All drug screens are appropriate unless indicated otherwise) COLUMBIA-SUICIDE SEVERITY RATING SCALE Screen Version - Recent Past month Ask questions that are bolded and underlined. YES/NO Ask Questions 1 and 2 1) Have you wished you were or wished you could go to sleep and not wake up? x 2) Have you actually had any thoughts of killing yourself? yes If YES to 2, ask questions 3, 4, 5, and 6. If NO to 2, go directly to question 6. 3) Have you been thinking about how you might do this? E.g. ?I thought about taking an overdose but I never made a specific plan as to when where or how I would actually do it?.and I would never go through with it.? yes 4) Have you had these thoughts and had some intention of acting on them? As opposed to ?I have the thoughts but I definitely will not do anything about them.? yes 5) Have you started to work out or worked out the details of how to kill yourself? Do you intend to carry out this plan? yes 6) Have you ever done anything, started to do anything, or prepared to do anything to end your life? Examples: Collected pills, obtained a gun, gave away valuables, wrote a will or suicide note, took out pills but didn't swallow any, held a gun but changed your mind or it was grabbed from your hand, went to the roof but didn't jump; or actually took pills, tried to shoot yourself, cut yourself, tried to hang yourself, etc. If YES, ask: Was this within the past three months? YES/NO yes yes Low Risk Moderate Risk High Risk Treatment History: PAIN PROCEDURES: DATE PROCEDURE IMPROVEMENT To date, no interventional pain management procedures performed at this practice. MEDICATIONS Taken TO DATE (for the chief complaint(s)): Neuropathics: None NSAIDS: None Muscle Relaxants: None Topicals: None Other Prescription or OTC Pain Medications: None Opioids: None Compliance: PDMP website checked and validated on 01/07/2024 by Tamara Maxwell APRN.CATHEAD WORKER All prescriptions have been APPROPRIATELY filled. No suspicious activity was identified. 01/07/2024 AG SPINE COMBINATION Questionnaire GREENLIGHT Completed Date 01/07/2024 Questionnaire Opiod Risk Tool Completed Date 01/07/2024 Comments high - 10 (All drug screens are appropriate unless indicated otherwise) Risk Asse (more content not included)...[facility]08-13-2024 Instructions* Patient Instructions* Mary Murillo PA-C - 01/01/2024 4:30 PM EDT Please call [phone] to schedule your esophageal manometry Adequate hydration High fiber diet Miralax 17 g capful daily, consider twice daily or addition of colace twice daily Reach out if any additional questions/concerns documented in this encounterRegency Hospital [facility]08-13-2024 [facility] History of Present illness Narrative* Mary Murillo PA-C - 01/01/2024 2:29 PM EDT VIRTUAL VISIT FOLLOW UP Matt Calabrese [id number] 2000 has requested a video telemedicine follow-up visit. Matt Calabrese verbalized informed consent to proceed with the video telemedicine follow-up visit. Matt Calabresewas informed that the details of this video visit would be recorded as part of their electronic medical record. I have communicated my name and active licensure. The patient's identity and physical location wereverified at the time of this visit. Either the patient or their legal scheduling representative has been informed of the risks and benefits of -- and alternatives to -- treatment through a remote evaluation andconsents to proceed with the evaluation remotely. Patient location at time of call: [place] No chief complaint on file. I had a virtual visit with Ms. Calabrese today for follow up of abdominal bloating. UPDATED HISTORY: Matt Calabrese is a 23 year old female with PMHx/PSHx of Asthma, IBS, s/p cholecystectomy who presents for follow up of diarrhea and abdominal bloating. Patient states she has been experiencing intermittent dysphagia despite undergoing EGD. Has been experiencing constipation since starting seroquel for borderline personality disorder. Has noted some improvement of abdominal bloating. Has eliminated gluten and dairy which she feels has helped. Underwent stool studies and gastric emptying and stool studies since last visit, all normal. GES 11/2023: NORMAL RATE OF GASTRIC EMPTYING OF A SOLID MEAL. Answers submitted by the patient for this visit: Review of Systems Gastroenterology (Submitted on 12/31/2023) Fever: No Chills: No Night Sweats: No Unitentional Weight Change: No A Cough: Yes Difficulty Breathing: No Chest Pain: No Belly pain: Yes A feeling of fullness or have belly pain after eating: Yes Food getting stuck in your throat or chest after eating: Yes Nausea - that is, a feeling like you could vomit: Yes Regurgitation - that is, food or liquid coming back up into your throat or mouth without vomiting, or feel burning behind your breast bone: No Loss of appetite: No To throw up or vomit: No Blood in your stools: No Black tarry stools: No Loose or watery stools: No The feeling like you need to empty your bowels right away - that is, feel as if you would have an accident: Yes Bowel incontinence - that is, have an accident because you cannot make it to the bathroom in time: No Problems with straining while having bowel movements , hard or lumpy stools, or feel unfinished (that you have not passed all your stool): No Pain in rectum or anus during bowel movements: No Problems with jaundice - that is, yellow discoloration of your skin or eyes, now or in the past: No Problems with having to flush the toilet more than two times due to oily stool, or see stool floating with oil: No PAST MEDICAL HISTORY No date: Anxiety state No date: Arthritis No date: Asthma Comment: does not have- no meds for this No date: Bipolar affective disorder (HCC) No date: Breast lump Comment: left No date: Depression No date: Herpes, genital No date: High cholesterol No date: IBS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 mcg/actuation inhaler^Inhale 2 Puffs as instructed every 6hours as needed.^Disp: 10.2 g^Rfl: 0 (Patient not taking: Reported on 07/19/2023) montelukast chewable (SINGULAIR) 4 mg tablet^Take 4 mg by mouth once daily.^Disp: ^Rfl: (Patient not taking: Reported on 07/19/2023) albuterol HFA (PROVENTIL HFA, VENTOLIN HFA) 90 mcg/actuation inhaler^Inhale 2 Puffs as instructed every 4 hours as needed.^Disp: 1 Each^Rfl: 0 (Patient not taking: Reported on 07/19/2023) albuterol (PROVENTIL) 2.5 mg /3 mL (0.083 %) nebulizer solution^As Directed^Disp: ^Rfl: (Patient not taking: Reported on 07/19/2023) FAMILY HISTORY Problem Relation Age of Onset Breast Cancer Mother 37 Breast Cancer Maternal Grandmother Breast Cancer Paternal Grandmother Breast Cancer Maternal Aunt Breast Cancer Paternal Aunt Social History Tobacco Use Smoking status: Never Passive exposure: Never Smokeless tobacco: Never Substance Use Topics Alcohol use: Never Drug use: Never BP 146/76 Pulse 82 Temp 36.6 C (97.9 F) Resp 16 Wt 102.6 kg (226 lb 3.1 oz) LMP 08/24/2023 (Exact Date) SpO2 97% BMI 40.07 kg/m Review of Systems Constitutional: Negative for chills, fever and malaise/fatigue. HENT: Negative for congestion, ear discharge, ear pain, sinus pain and sore throat. Eyes: Negative for blurred vision, pain, discharge and redness. Respiratory: Negative for cough, hemoptysis, sputum production, shortness of breath, wheezing and stridor. Cardiovascular: Negative for chest pain. Gastrointestinal: Negative for abdominal pain, diarrhea, nausea and vomiting. Musculoskeletal: Positive for back pain and joint pain. Negative for falls, myalgias and neck pain. Skin: Negative for itching and rash. Neurological: Negative for dizziness and headaches. Objective Physical Exam Constitutional: General: She is not in acute distress. Appearance: She is not toxic-appearing. HENT: Head: Normocephalic. Nose: Nose normal. Eyes: Pupils: Pupils are equal, round, and reactive to light. Cardiovascular: Rate and Rhythm: Normal rate. Pulmonary: Effort: Pulmonary effort is normal. No respiratory distress. Musculoskeletal: Cervical back: Normal range of motion. Right hip: Tenderness present. No deformity or bony tenderness. Normal range of motion. Normal strength. Left hip: No deformity, tenderness or bony tenderness. Normal range of motion. Normal strength. Right upper leg: Normal. Left upper leg: Normal. Legs: Comments: Pain with manipulation of right hip joint to highlighted area. No erythema edema noted. No decreased range of motion or weakness. Skin: General: Skin is warm and dry. Neurological: General: No focal deficit present. Mental Status: She is alert. ASSESSMENT/PLAN: 1. Pain of right hip - ICD9: 719.45, ICD10: M25.551 - XR HIP GENERAL 3V PELV/AP/LAT RIGHT IMPRESSION: NORMAL APPEARANCE OF THE PELVIS AND RIGHT HIP Acute findings noted on right hip. Treat conservatively at this point. Patient was educated on supportive therapies. Patient will follow up with primary care provider as needed. Patient was instructed to immediately proceed to emergency room for any new, worsening, or symptoms lasting longer than anticipated. The patient's clinical presentation is otherwise unremarkable at this time. Based on exam and clinical finding, the patient is stable for discharge. Plan of care was discussed with patient. Patient verbalizes understanding and agrees to plan of care. This note was generated using [employer] software. It may contain errors in wording, punctuation, or spelling. Rebel Sneed APRN.JERALD * Rebel Sneed APRN.CNP - 11/05/2023 3:38 PM EDT documented in this encounterRegency [facility]06-14-2024 Note SATISFACTORY FOR EVALUATION Endocervical/Transformational zone component present [facility] 06-14-2024 Note SATISFACTORY FOR EVALUATION Endocervical/Transformational zone component present [facility] 06-14-2024 Note SATISFACTORY FOR EVALUATION Endocervical/Transformational zone component present [facility] 06-14-2024 Note SATISFACTORY FOR EVALUATION Endocervical/Transformational zone component present [facility] 06-14-2024 Note SATISFACTORY FOR EVALUATION Endocervical/Transformational zone component present [facility] 06-14-2024 Note SATISFACTORY FOR EVALUATION Endocervical/Transformational zone component present [facility] 06-14-2024 Note SATISFACTORY FOR EVALUATION Endocervical/Transformational zone component present [facility] 06-14-2024 Note SATISFACTORY FOR EVALUATION Endocervical/Transformational zone component present [facility] 06-12-2024 Note. MICRO - Microbiology PROCEDURE: Affirm Pathogens DNA Direct Probe [*1] SOURCE: Vaginal Fluid BODY SITE: Cervix COLLECTED DATE/TIME: 10/29/2023 17:02 EDT RECEIVED DATE/TIME: 10/30/2023 14:25 EDT START DATE/TIME: 10/30/2023 14:25 EDT FREE TEXT SOURCE: FINAL REPORTS Final Report [] Verified Date/Time/Personnel: 10/31/2023 12:15 EDT Trichomonas vaginalis DNA Probe Negative Gardnerella vaginalis DNA Probe Negative Maria Elena species DNA Probe Negative Performing Locations *1: This test was performed at: [facility], [address] [place] [address], [id number] , [facility]10-16-2023 Telephone encounter Note* Telephone Encounter - Juliet Mcmullen PA-C - 10/16/2023 9:43 AM EDT Attempted calling patient at due to her cancellation of surgery. No answer, left voicemail. Juliet Mcmullen PA-C [facility] Work Phone: [phone]) 743-907105-28-2024 Miscellaneous Notes* Telephone Encounter - Julite Mcmullen PA-C - 10/16/2023 9:43 AM EDT Attempted calling patient at due to her cancellation of surgery. No answer, left voicemail. Juliet Mcmullen PA-C documented in this encounterRegency Hospital [facility]05-23-2024 Telephone encounter Note * Telephone Encounter - Lul Carranza APRN.CNP - 10/11/2023 2:43 PM EDT Questions were addressed during virtual visit today. Lul Carranza APRN.CNP [facility]05-23-2024 Miscellaneous Notes* Telephone Encounter - Lul Carranza APRN.CNP - 10/11/2023 2:43 PM EDT Questions were addressed during virtual visit today. Lul Carranza APRN.CNP documented in this encounterRegency Hospital [facility]05-23-2024 Telephone encounter Note * Telephone Encounter - Fatoumata Bradshaw PA-C - 10/11/2023 1:36 PM EDT Patient scheduled for PACC VV. Did not log in for visit. Multiple calls placed before and throughout visit time. No answer. Continued to be sent to voicemail. Of note, this is the second No Show, no answer for this patient for her PACC VV. Surgery is Sunday. Fatoumata Bradshaw PA-C 1:38 PM [facility]05-23-2024 Miscellaneous Notes* Telephone Encounter - Fatoumata Bradshaw PA-C - 10/11/2023 1:36 PM EDT Patient scheduled for PACC VV. Did not log in for visit. Multiple calls placed before and throughout visit time. No answer. Continued to be sent to voicemail. Of note, this is the second No Show, no answer for this patient for her PACC VV. Surgery is Sunday. Fatoumata Bradshaw PA-C 1:38 PM documented in this encounterRegency Hospital [facility]05-23-2024 History of Present illness Narrative* Lul Carranza APRN.CATHEAD WORKER - 10/11/2023 10:03 AM EDT Images from the original note were not included. VIRTUAL VISIT PROGRESS NOTE This is a virtual visit using [employer] Video Visit. It required patient- provider interaction for the medical decision making as documented below. I have communicated my name and active licensure. The patient's identity and physical location wereverified at the time of this visit. Either the patient or their legal scheduling representative has been informed of the risks and benefits of -- and alternatives to -- treatment through a remote evaluation andconsents to proceed with the evaluation remotely. Matt Calabrese is a 23 year old female seen for pulmonary follow up. The patient states she recently got a new dog (jn callejas) on 09/16/23 Since that time she has had increased nasal congestion, cough, sneezing. She believes she was previously allergy tested for dogs but was not allergic. She states has been taking Zyrtec with no relief. She states she is doing a 1 week trial with the dog out of her apartment to see if this will help her symptoms. She states she has cleaned/vacuumed her apartment. The dog does shed quite a bit. She states she does not feel it is related to environmental allergens as when she goes outside, her symptoms improve somewhat. She denies wheezing or chest pain. P paxton is wondering whether or not she should complete allergy testing again. HISTORY REVIEWED (electronic chart updated): PAST MEDICAL HISTORY Diagnosis Date Asthma PAST SURGICAL HISTORY Procedure Laterality Date REMOVAL GALLBLADDER FAMILY HISTORY Problem Relation Age of Onset Breast Cancer Mother 37 Breast Cancer Maternal Grandmother Breast Cancer Paternal Grandmother Breast Cancer Maternal Aunt Breast Cancer Paternal Aunt Social History Tobacco Use Smoking status: Never Passive exposure: Never Smokeless tobacco: Never Substance Use Topics Alcohol use: Never Drug use: Never Current Outpatient Medications Medication Sig methylPREDNISolone (MEDROL DOSE-PACK) 4 mg Dose-Pack TAKE 1 ROW OF TABLETS BY MOUTH EACH DAY INSTRUCTED ON THE PACKAGE cholecalciferol, Vitamin D3, (VITAMIN D3) 1,250 mcg (50,000 unit) cap capsule Take 1 capsule by mouth one time a week. Colestipol HCl 5 gram granules Take 5 g by mouth two times a day. omeprazole (PRILOSEC) 40 mg capsule Take 1 capsule by mouth once daily. valACYclovir (VALTREX) 500 mg tablet Take 1 tablet by mouth every afternoon. benzonatate (TESSALON PERLE) 100 mg capsule Take 2 capsules by mouth three times a day as needed. (Patient not taking: Reported on 07/19/2023) budesonide-formoterol (SYMBICORT) 80-4.5 mcg/actuation inhaler Inhale 2 Puffs as instructed every 6hours as needed. (Patient not taking: Reported on 07/19/2023) hydrOXYzine HCl (ATARAX) 25 mg tablet TAKE 1/2 TABLET BY MOUTH 4 TIMES A DAY NEEDED FOR ANXIETY,IF TOLERATED WITHOUT EXCESSIVE TIREDNESS CAN TAKE FULL TAB sertraline (ZOLOFT) 50 mg tablet montelukast chewable (SINGULAIR) 4 mg tablet Take 4 mg by mouth once daily. (Patient not taking: Reported on 07/19/2023) albuterol HFA (PROVENTIL HFA, VENTOLIN HFA) 90 mcg/actuation inhaler Inhale 2 Puffs as instructed every 4 hours as needed. (Patient not taking: Reported on 07/19/2023) albuterol (PROVENTIL) 2.5 mg /3 mL (0.083 %) nebulizer solution As Directed (Patient not taking: Reported on 07/19/2023) No current facility-administered medications for this visit. Facility-Administered Medications Ordered in Other Visits Medication Dose Route Frequency lidocaine (PF) 10 mg/mL (1 %) 1-2 mg injection (XYLOCAINE) 0.1-0.2 mL INTRADERMAL PRN lactated ringers iv infusion 30 mL/hr INTRAVENOUS CONTINUOUS ALLERGIES Allergen Reactions Penicillins Hives, Unknown Other reaction(s): Hives Amoxicillin Hives Azithromycin Hives, Itching Clarithromycin Hives Trazodone Other: See Comments Suicidal ideations Other reaction(s): Suicidal ideation REVIEW OF SYSTEMS: GENERAL: no fever, activity level is normal HEENT: + nasal congestion RESPIRATORY: + cough SKIN: no rash PHYSICAL EXAMINATION: VIDEO EXAM: (if completed, performed via video enabled technology) No exam performed. Patient had to be converted to telephone encounter due to technical issues. The patient was speaking in clear, full sentences. ASSESSMENT: (J30.81) Allergic rhinitis due to animal hair and dander (primary encounter diagnosis) Patient recently purchased new dog (jn [email or web address]) on 08/26. Since bringing the dog in to her home, she has had increased/constant nasal congestion and cough. She is taking Zyrtec and has rehomed the dog for a week to see if her symptoms will resolved. PLAN: - Continue Zyrtec daily. - Recommended vacuuming all rooms in the home and laundering linens. - If no improvement after dog has been removed for a week, may consider referring for allergy testing again. - Patient will reach out to our office with an update on symptoms. I spent a total of 20 minutes on the date of the service which included preparing to see the patient, [id number] patient care, completing clinical documentation, obtaining and/or reviewing separately obtained history, performing a medically appropriate examination, and counseling and educating the patient/family/caregiver Encounter started as a virtual visit (audio-visual) but was converted to a telephone visit (audio only) due to insurmountable technological challenges. Lul Carranza APRN.JERALD documented in this encounterRegency Hospital [facility]05-22-2024 History of Present illness Narrative* Annmarie Weaver RN - 10/10/2023 10:09 AM EDT Name: Matt Calabrese [facility]#: [id number] Date: 10/10/2023 LACTULOSE - BREATH HYDROGEN & METHANE TEST Indication: Bloating, Abdominal Pain, and Diarrhea Pain Assessment: Yes pain is present. LOCATION: upper abdomen PAIN SCALE: 4 on a scale of 0-10 PAIN CHARACTER: aching and pressure DURATION: (How long have you had the pain?) years FREQUENCY: (How often does the pain occur?) occurs constantly Test Preparation: NPO for since last evening. No antibiotics or Pepto Bismol have been taken during the last 4 weeks. No colonscopy within the last 3-4 weeks A 20g Lactulose solution was given. Breath samples were taken every 15 minutes for 1 hour and 45 minutes. The LACTULOSE breath hydrogen/methane test was completed. .Annmarie Weaver, RN documented in this encounterRegency Hospital [facility]05-20-2024 Telephone encounter Note * Telephone Encounter - Fatoumata Bradshaw PA-C - 10/08/2023 3:13 PM EDT Patient scheduled for PACC VV. Patient did not log in for VV. Multiple calls placed to patient over the course of 15 minutes. Each one was sent to voicemail. Patient will need VV rescheduled. Fatoumata Bradshaw PA-C 3:13 PM [facility]05-20-2024 Miscellaneous Notes* Telephone Encounter - Fatoumata Bradshaw PA-C - 10/08/2023 3:13 PM EDT Patient scheduled for PACC VV. Patient did not log in for VV. Multiple calls placed to patient over the course of 15 minutes. Each one was sent to voicemail. Patient will need VV rescheduled. Fatoumata Bradshaw PA-C 3:13 PM documented in this encounterRegency Hospital [facility]05-18-2024 History of Present illness Narrative* Rula Joseph APRN.CATHEAD WORKER - 10/06/2023 10:22 AM EDT Subjective Patient came in with complaints of blisters on her right sided nostril. Patient says she is worriedthey are going down her throat. Patient says she was exposed to chickenpox. Patient says she has never had chickenpox and was never vaccinated. Patient denies any other symptoms. [facility] Patient says she cannot take any medications for 4 weeks dueto a procedure she has coming up. Patient says that the symptoms seem to be improving. Review of Systems Constitutional: Negative. Skin: Negative. Objective Physical Exam Constitutional: Appearance: Normal appearance. HENT: Head: Comments: No signs of any blisters noted in the nose or in the throat. Cardiovascular: Rate and Rhythm: Normal rate and regular rhythm. Heart sounds: Normal heart sounds. Pulmonary: Effort: Pulmonary effort is normal. Breath sounds: Normal breath sounds. Neurological: Mental Status: She is alert. PAST MEDICAL HISTORY Diagnosis Date Asthma PAST SURGICAL HISTORY Procedure Laterality Date REMOVAL GALLBLADDER ALLERGIES Penicillins, Amoxicillin, Azithromycin, Clarithromycin, and Trazodone MEDICATIONS cholecalciferol, Vitamin D3, (VITAMIN D3) 1,250 mcg (50,000 unit) cap capsule^Take 1 capsule by mouth one time a week.^Disp: 8 capsule^Rfl: 0 Colestipol HCl 5 gram granules^Take 5 g by mouth two times a day.^Disp: 60 Packet^Rfl: 2 omeprazole (PRILOSEC) 40 mg capsule^Take 1 capsule by mouth once daily.^Disp: 30 capsule^Rfl: 1 valACYclovir (VALTREX) 500 mg tablet^Take 1 tablet by mouth every afternoon.^Disp: ^Rfl: hydrOXYzine HCl (ATARAX) 25 mg tablet^TAKE 1/2 TABLET BY MOUTH 4 TIMES A DAY NEEDED FOR ANXIETY,IF TOLERATED WITHOUT EXCESSIVE TIREDNESS CAN TAKE FULL TAB^Disp: ^Rfl: sertraline (ZOLOFT) 50 mg tablet^^Disp: ^Rfl: benzonatate (TESSALON PERLE) 100 mg capsule^Take 2 capsules by mouth three times a day as needed.^Disp: 30 capsule^Rfl: 0 (Patient not taking: Reported on 07/19/2023) budesonide-formoterol (SYMBICORT) 80-4.5 mcg/actuation inhaler^Inhale 2 Puffs as instructed every 6hours as needed.^Disp: 10.2 g^Rfl: 0 (Patient not taking: Reported on 07/19/2023) montelukast chewable (SINGULAIR) 4 mg tablet^Take 4 mg by mouth once daily.^Disp: ^Rfl: (Patient not taking: Reported on 07/19/2023) albuterol HFA (PROVENTIL HFA, VENTOLIN HFA) 90 mcg/actuation inhaler^Inhale 2 Puffs as instructed every 4 hours as needed.^Disp: 1 Each^Rfl: 0 (Patient not taking: Reported on 07/19/2023) albuterol (PROVENTIL) 2.5 mg /3 mL (0.083 %) nebulizer solution^As Directed^Disp: ^Rfl: (Patient not taking: Reported on 07/19/2023) FAMILY HISTORY Problem Relation Age of Onset Breast Cancer Mother 37 Breast Cancer Maternal Grandmother Breast Cancer Paternal Grandmother Breast Cancer Maternal Aunt Breast Cancer Paternal Aunt Social History Tobacco Use Smoking status: Never Passive exposure: Never Smokeless tobacco: Never Substance Use Topics Alcohol use: Never Drug use: Never ASSESSMENT/PLAN: 1. Blister - ICD9: 919.2, ICD10: T14.8XXA .Patient presents with: blister in nose: Blister in nose that is spreading to throat and cough x 3 days PAST MEDICAL HISTORY Diagnosis Date Asthma PAST SURGICAL HISTORY Procedure Laterality Date REMOVAL GALLBLADDER ALLERGIES Penicillins, Amoxicillin, Azithromycin, Clarithromycin, and Trazodone MEDICATIONS cholecalciferol, Vitamin D3, (VITAMIN D3) 1,250 mcg (50,000 unit) cap capsule^Take 1 capsule by mouth one time a week.^Disp: 8 capsule^Rfl: 0 Colestipol HCl 5 gram granules^Take 5 g by mouth two times a day.^Disp: 60 Packet^Rfl: 2 omeprazole (PRILOSEC) 40 mg capsule^Take 1 capsule by mouth once daily.^Disp: 30 capsule^Rfl: 1 valACYclovir (VALTREX) 500 mg tablet^Take 1 tablet by mouth every afternoon.^Disp: ^Rfl: hydrOXYzine HCl (ATARAX) 25 mg tablet^TAKE 1/2 TABLET BY MOUTH 4 TIMES A DAY NEEDED FOR ANXIETY,IF TOLERATED WITHOUT EXCESSIVE TIREDNESS CAN TAKE FULL TAB^Disp: ^Rfl: sertraline (ZOLOFT) 50 mg tablet^^Disp: ^Rfl: benzonatate (TESSALON PERLE) 100 mg capsule^Take 2 capsules by mouth three times a day as needed.^Disp: 30 capsule^Rfl: 0 (Patient not taking: Reported on 07/19/2023) budesonide-formoterol (SYMBICORT) 80-4.5 mcg/actuation inhaler^Inhale 2 Puffs as instructed every 6hours as needed.^Disp: 10.2 g^Rfl: 0 (Patient not taking: Reported on 07/19/2023) montelukast chewable (SINGULAIR) 4 mg tablet^Take 4 mg by mouth once daily.^Disp: ^Rfl: (Patient not taking: Reported on 07/19/2023) albuterol HFA (PROVENTIL HFA, VENTOLIN HFA) 90 mcg/actuation inhaler^Inhale 2 Puffs as instructed every 4 hours as needed.^Disp: 1 Each^Rfl: 0 (Patient not taking: Reported on 07/19/2023) albuterol (PROVENTIL) 2.5 mg /3 mL (0.083 %) nebulizer solution^As Directed^Disp: ^Rfl: (Patient not taking: Reported on 07/19/2023) FAMILY HISTORY Problem Relation Age of Onset Breast Cancer Mother 37 Breast Cancer Maternal Grandmother Breast Cancer Paternal Grandmother Breast Cancer Maternal Aunt Breast Cancer Paternal Aunt Social History Tobacco Use Smoking status: Never Passive exposure: Never Smokeless tobacco: Never Substance Use Topics Alcohol use: Never Drug use: Never ASSESSMENT/PLAN: 1. Blister - ICD9: 919.2, ICD10: T14.8XXA Patient will follow-up with primary care if symptoms seem to be worsening. At this time no treatment plan. Rula Joseph APRN.JERALD Joseph APRN.CATHEAD WORKER documented in this encounterRegency Hospital [facility]05-17-2024 Instructions* Patient Instructions* Juliet Mcmullen PA-C - 10/05/2023 9:10 AM EDT Images from the original note were not included. HAND AND UPPER EXTREMITY SURGERY Juliet Mcmullen PA-C, ANNALISE Hernandez PA-C, ANNALISE Quintana MD, PhD Rhona Kenyon, LEO Woody RN Office: [phone] documented in this encounterRegency Hospital [facility]05-17-2024 History of Present illness Narrative* Juliet Mcmullen PA-C - 10/05/2023 8:12 AM EDT October 05, 2023 CHIEF COMPLAINT: left ring finger numbness HPI: Matt Calabrese is a 23 year old ambidextrous female who presents to clinic with left ring finger numbness. States one month ago she had a nodule removed from her left ring finger at an outside facility. Since then she has had persistent numbness to the radial aspect of the ring finger. She hasbeen massaging the area and has been following up with her orthopedic surgeon who has been monitoring the sensation though it is not improving. 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 No guarantees or warranties were provided and all risks, benefits and alternatives discussed and they wish to proceed. She would like to proceed with LEFT ring finger radial digital nerve repair vs reconstruction. OBJECTIVE: There were no vitals filed for this visit. There is no height or weight on file to calculate BMI. General: NAD Eyes: Pupils not pinpointed, not overly dilated, anicteric Neck: Full range of motion Cardiovascular: Palpable pulse and brisk capillary refill (<2 sec) to all fingers Lymphatic: Inspection of the arm/hand reveals no lymphedema and palpation of epitrochlear nodes is unremarkable. Respiratory: Respirations even and unlabored, no audible wheezing Integumentary: Inspection of skin reveals no breaks or obvious lesions except for those noted below. Neuro: Intact sensation to light touch over the median, ulnar, and radial nerve distributions. Psychiatric: No obvious anxiety, well kempt, normal affect. Appropriate response to pain. Musculoskeletal: Able to flex and extend all fingers at the DIP and PIP. Able to retropulse the thumb, abduct all fingers against resistance. Scar to the radial aspect of the volar left ring finger from mass excision. Monofilament testing of ring finger Proximal to surgical incision 2.83 on radial aspect Distal to surgical incision 6.65 on radial aspect IMAGING: none today Supporting Subjective Information Below: Past Medical History: PAST MEDICAL HISTORY Diagnosis Date Asthma Past Surgical History: PAST SURGICAL HISTORY Procedure Laterality Date REMOVAL GALLBLADDER Family History: FAMILY HISTORY Problem Relation Age of Onset Breast Cancer Mother 37 Breast Cancer Maternal Grandmother Breast Cancer Paternal Grandmother Breast Cancer Maternal Aunt Breast Cancer Paternal Aunt Medications: Current Outpatient Medications Medication Sig Dispense Refill cholecalciferol, Vitamin D3, (VITAMIN D3) 1,250 mcg (50,000 unit) cap capsule Take 1 capsule by mouth one time a week. 8 capsule 0 Colestipol HCl 5 gram granules Take 5 g by mouth two times a day. 60 Packet 2 omeprazole (PRILOSEC) 40 mg capsule Take 1 capsule by mouth once daily. 30 capsule 1 valACYclovir (VALTREX) 500 mg tablet Take 1 tablet by mouth every afternoon. benzonatate (TESSALON PERLE) 100 mg capsule Take 2 capsules by mouth three times a day as needed. (Patient not taking: Reported on 07/19/2023) 30 capsule 0 budesonide-formoterol (SYMBICORT) 80-4.5 mcg/actuation inhaler Inhale 2 Puffs as instructed every 6hours as needed. (Patient not taking: Reported on 07/19/2023) 10.2 g 0 hydrOXYzine HCl (ATARAX) 25 mg tablet TAKE 1/2 TABLET BY MOUTH 4 TIMES A DAY NEEDED FOR ANXIETY,IF TOLERATED WITHOUT EXCESSIVE TIREDNESS CAN TAKE FULL TAB sertraline (ZOLOFT) 50 mg tablet montelukast chewable (SINGULAIR) 4 mg tablet Take 4 mg by mouth once daily. (Patient not taking: Reported on 07/19/2023) albuterol HFA (PROVENTIL HFA, VENTOLIN HFA) 90 mcg/actuation inhaler Inhale 2 Puffs as instructed every 4 hours as needed. (Patient not taking: Reported on 07/19/2023) 1 Each 0 albuterol (PROVENTIL) 2.5 mg /3 mL (0.083 %) nebulizer solution As Directed (Patient not taking: Reported on 07/19/2023) No current facility-administered medications for this visit. Facility-Administered Medications Ordered in Other Visits Medication Dose Route Frequency Provider Last Rate Last Admin lidocaine (PF) 10 mg/mL (1 %) 1-2 mg injection (XYLOCAINE) 0.1-0.2 mL INTRADERMAL PRN Prakash Holland MD lactated ringers iv infusion 30 mL/hr INTRAVENOUS CONTINUOUS Prakash Holland MD Allergies: ALLERGIES Allergen Reactions Penicillins Hives, Unknown Other reaction(s): Hives Amoxicillin Hives Azithromycin Hives, Itching Clarithromycin Hives Trazodone Other: See Comments Suicidal ideations Other reaction(s): Suicidal ideation Referring Physician: N/A Juliet Mcmullen PA-C documented [facility] History of Present illness Narrative* Lul Carranza APRN.CNP - 10/01/2023 9:30 AM EDT Latest Ref Rng 09/28/2023 Vitamin D 25 Hydroxy 31.0 - 80.0 ng/mL 15.1 (L) Sending Rx for replacement x 8 weeks. Then start OTC Vit D3 1,000 units daily. Lul Carranza APRN.CNP documented in this encounterReg[facility] History of Present illness Narrative* Lul Carranza APRN.CNP - 09/27/2023 9:11 AM EDT VIRTUAL VISIT PROGRESS NOTE This is a virtual visit using Nextly Zoom Video Visit. It required patient- provider interaction for the medical decision making as documented below. I have communicated my name and active licensure. The patient's identity and physical location wereverified at the time of this visit. Either the patient or their legal scheduling representative has been informed of the risks and benefits of -- and alternatives to -- treatment through a remote evaluation andconsents to proceed with the evaluation remotely. Matt Calabrese is a 23 year old female seen for pulmonary follow up. Patient states 7 days ago she started feeling sick with body aches, sore throat. This progressed over the next few days and she developed a cough with mucus production. Overall feeling run down and tired. She states she was tested for strep throat which was negative. She states she was in contact with a friend recently who had the chicken pox. The patient states she never had the chicken pox. Shestates she has been taking OTC supplements to support her immune system and mucinex. She states hersymptoms have really not been improving and she continues to cough up mucus and feel like her chestis congested. She denies fevers, wheezing or chest pain. HISTORY REVIEWED (electronic chart updated): PAST MEDICAL HISTORY Diagnosis Date Asthma PAST SURGICAL HISTORY Procedure Laterality Date REMOVAL GALLBLADDER FAMILY HISTORY Problem Relation Age of Onset Breast Cancer Mother 37 Breast Cancer Maternal Grandmother Breast Cancer Paternal Grandmother Breast Cancer Maternal Aunt Breast Cancer Paternal Aunt Social History Tobacco Use Smoking status: Never Passive exposure: Never Smokeless tobacco: Never Substance Use Topics Alcohol use: Never Drug use: Never Current Outpatient Medications Medication Sig doxycycline (VIBRA-TABS) 100 mg tablet Take 1 tablet by mouth two times a day for 7 days. Colestipol HCl 5 gram granules Take 5 g by mouth two times a day. omeprazole (PRILOSEC) 40 mg capsule Take 1 capsule by mouth once daily. valACYclovir (VALTREX) 500 mg tablet Take 1 tablet by mouth every afternoon. benzonatate (TESSALON PERLE) 100 mg capsule Take 2 capsules by mouth three times a day as needed. (Patient not taking: Reported on 07/19/2023) budesonide-formoterol (SYMBICORT) 80-4.5 mcg/actuation inhaler Inhale 2 Puffs as instructed every 6hours as needed. (Patient not taking: Reported on 07/19/2023) hydrOXYzine HCl (ATARAX) 25 mg tablet TAKE 1/2 TABLET BY MOUTH 4 TIMES A DAY NEEDED FOR ANXIETY,IF TOLERATED WITHOUT EXCESSIVE TIREDNESS CAN TAKE FULL TAB sertraline (ZOLOFT) 50 mg tablet montelukast chewable (SINGULAIR) 4 mg tablet Take 4 mg by mouth once daily. (Patient not taking: Reported on 07/19/2023) albuterol HFA (PROVENTIL HFA, VENTOLIN HFA) 90 mcg/actuation inhaler Inhale 2 Puffs as instructed every 4 hours as needed. (Patient not taking: Reported on 07/19/2023) albuterol (PROVENTIL) 2.5 mg /3 mL (0.083 %) nebulizer solution As Directed (Patient not taking: Reported on 07/19/2023) No current facility-administered medications for this visit. Facility-Administered Medications Ordered in Other Visits Medication Dose Route Frequency lidocaine (PF) 10 mg/mL (1 %) 1-2 mg injection (XYLOCAINE) 0.1-0.2 mL INTRADERMAL PRN lactated ringers iv infusion 30 mL/hr INTRAVENOUS CONTINUOUS ALLERGIES Allergen Reactions Penicillins Hives, Unknown Other reaction(s): Hives Amoxicillin Hives Azithromycin Hives, Itching Clarithromycin Hives Trazodone Other: See Comments Suicidal ideations Other reaction(s): Suicidal ideation REVIEW OF SYSTEMS: GENERAL: no fever, admits to fatigue HEENT: no nasal congestion or rhinorrhea RESPIRATORY: no wheezing or shortness of breath, she admits to productive cough CARDIOVASCULAR: no chest pain SKIN: no rash PHYSICAL EXAMINATION: VIDEO EXAM: (if completed, performed via video enabled technology) GENERAL: alert and appropriate, in no distress, well-hydrated, well nourished, and happy, smiling, interactive RESPIRATORY: breathing non-labored and moist cough noted during visit CHEST: equal chest rise with normal respiratory effort NEUROLOGIC: no obvious deficit ASSESSMENT: (J98.8) Respiratory tract infection (primary encounter diagnosis) (E55.9) Vitamin D deficiency Patient presents for evaluation of respiratory illness going on for more than a week with improvement in sore throat but worsening of cough and mucus production. Patient has history of recurrent pneumonia in the past. We will treat with antibiotic. PLAN: - Start doxycycline 100 mg BID x 7 days. Discussed medication dosage, usage, goals of therapy, and side effects. - Continue Mucinex for the next 3-5 days to assist with cough and thinning mucus - Stay well hydrated - Discussed checking vitamin D level as patient historically has had very low vitamin D and is not currently taking any replacement. She was stop by the lab at her convenience. - Patient will contact us if no improvement. I spent a total of 26 minutes on the date of the service which included preparing to see the patient, [id number] patient care, completing clinical documentation, obtaining and/or reviewing separately obtained history, performing a medically appropriate examination, counseling and educating the pat ient/family/caregiver, and ordering medications, tests, or procedures Lulelroy Carranza APRN.CNP documented in this encounterReg[facility] Telephone encounter Note * Telephone Encounter - Danica Vasquez - 09/24/2023 9:36 AM EDT Patient requests return call to discuss results of EGD pathology performed 09/14/23 Scheduled for breath test 10/09 Danica Monreal [facility] Miscellaneous Notes* Telephone Encounter - Danica Vasquez - 09/24/2023 9:36 AM EDT Patient requests return call to discuss results of EGD pathology performed 09/14/23 Scheduled for breath test 10/09 Danica Monreal documented in this encounterReg[facility]-03-2024 Discharge summary Author Shahzad Dsouza [facility] September 21, 2023 7:03pm Note Date/Time September 21, 2023 4:50pm [facility] Medical Records Department [address] [place] [address] Emergency Department Summary 09/21/23 MR#: [id number] Acct: [id number] Name: MATT CALABRESE HELIO Rep #:[id number] : 2000 23 From: Shahzad Dsouza MD PCP: Care Physician,No Primary Status :REG ER Location: ED HPI HPI - GI History of Present Illness Chief Complaint: Abd Pain Informant: patient Abdominal Pain/Flank Pain Onset: Yesterday Context: Gradual Onset Timing: Continuous Quality: Aching and - (Spasming) Location: Epigastric, LUQ and LLQ (Today) Current Severity: Moderate Maximum Severity: Moderate Worsened by: Movement Nausea/Vomiting/Emesis GI Symptom: Negative for Nausea or Vomiting Diarrhea/Melena/Hematochezia GI Symptom: Positive for Diarrhea (Chronic, unchanged); Negative for Melena or Hematochezia Associated Symptoms Associated Symptoms: Negative for Dysuria, Frequency, Hematuria or Urgency Narrative Narrative: 23-year-old female with chronic diarrhea, she had an EGD a week ago because of this, she states it was at [facility] as an outpatient and she had 4 different areas biopsied including her esophagus and stomach, test for celiac disease, H. pylori, none of that is back. She states she started getting this pain yesterday and today. Not associated with meals which does not change it. [place] to move. Feels like spasming. She is wondering if it is a sore muscle butshe has no reason to have that although she states she was bending over a lot last couple days to do seeding in her garden. Denies any melena or bright red blood per rectum. [facility] Medical History Anxiety Contact with or exposure to other viral diseases Contusion of left knee Left ankle sprain Sprain of left foot Strain of Achilles tendon URI (upper respiratory infection) Home Medications CBD Oil topical 01/18/23 [History Last Taken Unknown] ibuprofen 600 mg tablet 600 mg PO Q8H PRN pain 01/18/23 [History Last Taken Unknown] naproxen 500 mg tablet 500 mg PO BID #14 tabs 03/18/23 [Rx Last Taken Unknown] benzonatate 200 mg capsule 200 mg PO TID PRN cough #20 caps 03/19/23 [Rx Last Taken Unknown] methylprednisolone 4 mg tablets in a dose pack (Medrol (Ramana)) See Rx Instructions PO PER PKG DIR #21 tabs 03/19/23 [Rx Last Taken Unknown] Allergy/AdvReac Type Severity Reaction Status Date / Time amoxicillin Allergy Upset Verified 09/21/23 16:33 Stomach erythromycin base Allergy Upset Verified 09/21/23 16:33 Stomach Penicillins [PCN] Allergy Upset Verified 09/21/23 16:33 Stomach trazodone AdvReac Unknown suicidal Verified 09/21/23 16:33 ideation Social History Smoking Status: Never smoker substance use type: does not use ROS ROS ED Constitutional Constitutional ED: Denies chills or fever(s) Eyes Eyes: Denies change in vision or diplopia ENT ENT ED: Denies rhinorrhea or sore throat Cardiovascular Cardiovascular: Denies chest pain or palpitations Respiratory/Chest Respiratory/Chest: Denies cough or dyspnea Gastrointestinal Gastrointestinal: Reports abdominal pain and diarrhea; Denies nausea or vomiting Genitourinary Genitourinary ED: Denies dysuria or hematuria Musculoskeletal Musculoskeletal: Denies back pain or neck pain Integumentary Denies abscess or rash Neurologic Neurologic: Denies headache(s), paresthesias or weakness Psychiatric Psychiatric: Denies depression or suicidal thoughts EXAM Physical Exam Const Vital Signs: 09/21/23 16:34 09/21/23 18:33 Temperature 97.6 F L Temperature Source Temporal Pulse Rate 100 81 Respiratory Rate 18 16 Blood Pressure 133/78 H 121/64 H Blood Pressure Mean 96 83 Pulse Ox 99 99 Oxygen Delivery Method Room Air Room Air Positive well nourished, well developed and obese General Appearance ED: well developed and NAD Nutritional Appearance: obese HEENT Reports moist mucous membranes normocephalic and atraumatic Eyes PERRL and EOMs intact bilaterally Neck full ROM and supple Resp normal respiratory effort and clear to auscultation bilaterally Cardio regular rate, regular rhythm and no murmurs GI non-distended GI Narrative: Mild tenderness without guarding or rebound epigastrium, left upper quadrant and throughout the left side down to the left lower quadrant. No other areas of tenderness. Auscultation: normoactive bowel sounds Palpation: soft Back/Spine no CVA tenderness General Back: other FROM Extremity normal to inspection General Extremety ED: Negative for edema, pulses abnormal or tenderness General Extremity: Negative for edema or pulses abnormal Neuro oriented x3, CN's II-XII intact bilaterally and no sensory deficits noted Sensorium / Orientation: awake and alert Motor Exam: strength 5/5 throughout Skin no rashes or lesions noted and no wounds MDM MDM MDM Narrative Medical decision making narrative: Although this patient has abdominal pain she does not have any other GI symptoms that are new with that. I did some basic labs that are normal, her white blood count is in the normal range at 8.5 and there is no shift. Her liver enzymes and lipase are normal as well as her which is negative, ruling out ectopic . Restarted given her GI cocktail and dicyclomine, but it did not help at all. We then gave her an injection of Toradol. This really helped. She thinks it feels more muscular now and I agree. I do not think she needs a CT although we discussed it, we considered it, but for these reasons I do not think she needs it right now. I think diverticulitis much less likely an issue here and she is in agreement. We discussed reasons to return she comfortable with supportive care at home. Lab Data Attestation: I reviewed the patient's lab results. Labs: Laboratory Results - last 24 hr 09/21/23 16:59 WBC 8.5 RBC 4.13 L Hgb 11.8 L Hct 37.2 MCV 90.1 MCH 28.6 MCHC 31.7 L RDW Std Deviation 39.7 RDW Coeff of [place] 12.2 Plt Count 295 MPV 10.4 Immature Gran % (Auto) 0.100 Neut % (Auto) 54.8 Lymph % (Auto) 36.0 [place] % (Auto) 7.3 Eos % (Auto) 1.3 Baso % (Auto) 0.5 Absolute Neuts (auto) 4.7 Absolute Lymphs (auto) 3.06 Nucleated RBC % 0 Sodium 141 Potassium 3.7 Chloride 108 H Carbon Dioxide 27.0 Anion Gap 6 BUN 16 Creatinine 0.71 Estim Creat Clear Calc 142.74 Est GFR (MDRD) Af Amer 129 Est GFR (MDRD) Non-Af 107 BUN/Creatinine Ratio 22.4 H Glucose 117 H Calcium 9.0 Total Bilirubin 0.10 L AST 16 ALT 21 Alkaline Phosphatase 77 Total Protein 7.1 Albumin 3.4 Globulin 3.7 Albumin/Globulin Ratio 0.9 Lipase 29 Serum , Qual NEGATIVE Discharge Plan Triage Chief Complaint: Abd Pain ED Provider: Shahzad Dsouza Dx/Rx/DC Orders Clinical Impression: Abdominal muscle strain Instructions: Self-Care for Strains and Sprains Prescriptions: No Action CBD Oil topical ibuprofen 600 mg tablet 600 mg PO Q8H PRN (Reason: pain) methylprednisolone [Medrol (Ramana)] 4 mg tablets,dose pack See Rx Instructions PO PER PKG DIR Qty: 21 0RF Rx Instructions: PO PER PKG DIR benzonatate 200 mg capsule 200 mg PO TID PRN (Reason: cough) Qty: 20 0RF naproxen 500 mg tablet 500 mg PO BID Qty: 14 0RF Primary Care Provider: Care Physician,No Primary Referrals: Jack Priest MULTIMEDIA ASSISTANT, MULTIMEDIA ASSISTANT-C [Non-Staff] - 1 Week if not improving Disposition Disposition: Home, Self Care What to do if you have Problems For any increased pain, shortness of breath, bleeding, nausea or vomiting, chestpain, or any unexpected problems, contact your Primary Care Provider. Call [facility] ([phone]) or report to the closest Emergency Room. Call 911 if necessary. 09/21/23 190 <Electronically signed by Shahzad Dsouza MD> Cosigner Signature (if applicable): CC: No Primary Care Physician ~ Signed [facility] Work Phone: 1(328) 907-868105-03-2024 History of Present illness Narrative* Orlando Chopra APRN.CATHEAD WORKER - 09/21/2023 4:38 PM EDT Patient triaged at [facility]. Here today with worsening abdominal pain, painful to walk. I will refer to ER, declines germania. documented in this encounterReg[facility]04-26-[facility]24 Nurse Note* Clarice Anders RN - 09/14/2023 8:06 AM EDT Pt. States readiness for discharge. Assisted with dressing. [facility] Nurse Note* Clarice Anders RN - 09/14/2023 8:06 AM EDT Pt. States readiness for discharge. Assisted with dressing. * Clarice Anders RN - 09/14/2023 7:44 AM EDT Physician at bedside. documented in this encounterRegency Hospital [facility]04-26-2024 Nurse Note* Clarice Anders RN - 09/14/2023 7:44 AM EDT Physician at bedside. [facility] Note* Discharge Instr - Nursing - Clarice Anders RN - 09/14/2023 7:39 AM EDT The patient received a copy of EGD discharge instructions that contain information for how to contact the physician who performed the procedure and when to seek medical care. [facility] Miscellaneous Notes* Discharge Instr - Nursing - Clarice Anders RN - 09/14/2023 7:39 AM EDT The patient received a copy of EGD discharge instructions that contain information for how to contact the physician who performed the procedure and when to seek medical care. documented in this encounterReg[facility]04-26-2024 History and physical note * Prakash Holland MD - 09/14/2023 7:00 AM EDT HISTORY AND PHYSICAL Matt Calabrese, 23 year old female Current history and physical on file: Yes Is a new History and Physical required for today's visit? Yes Indication for procedure: Diarrhea and Dyspepsia PROCEDURE(S) SCHEDULED FOR: EGD (Esophagogastroduodenoscopy) with or without biopsies, removal of polyps or lesions, dilation (any means), treatment of bleeding ( any means), Barrx treatment of Sherwin's Esophagus, image tube placement or cryo therapy treatment based on clinical findings. BASELINE BEHAVIOR: Calm BASELINE ORIENTATION: A & O x3 All medications and allergies reviewed: Yes Skin Assessment: Warm dry mucus membranes pink Airway/Respiratory Assessment: Airway: visualization of the uvula- Yes Mouth: opening greater than 2 fingerbreadths- Yes Neck: full range of motion- Yes Breath sounds clear/equal- Yes Cardiac Assessment: Regular rate and rhythm without murmur Abdominal Assessment: Abdomen soft, mild epigastric tenderness, no masses or organomegaly. Sedation Plan: MAC Additional Comments: None Prakash Holland MD [facility] Work Phone: [phone]) 823-349404-26-2024 History and physical note* Prakash Holland MD - 09/14/2023 7:00 AM EDT HISTORY AND PHYSICAL Matt Calabrese, 23 year old female Current history and physical on file: Yes Is a new History and Physical required for today's visit? Yes Indication for procedure: Diarrhea and Dyspepsia PROCEDURE(S) SCHEDULED FOR: EGD (Esophagogastroduodenoscopy) with or without biopsies, removal of polyps or lesions, dilation (any means), treatment of bleeding ( any means), Barrx treatment of Sherwin's Esophagus, image tube placement or cryo therapy treatment based on clinical findings. BASELINE BEHAVIOR: Calm BASELINE ORIENTATION: A & O x3 All medications and allergies reviewed: Yes Skin Assessment: Warm dry mucus membranes pink Airway/Respiratory Assessment: Airway: visualization of the uvula- Yes Mouth: opening greater than 2 fingerbreadths- Yes Neck: full range of motion- Yes Breath sounds clear/equal- Yes Cardiac Assessment: Regular rate and rhythm without murmur Abdominal Assessment: Abdomen soft, mild epigastric tenderness, no masses or organomegaly. Sedation Plan: MAC Additional Comments: None Prakash Holland MD documented in this encounterRegency [facility]04-11-2024 Instructions* Patient Instructions* Mary Murillo PA-C - 08/30/2023 1:07 PM EDT At least 64 oz of water daily Trial colestipol 5 g twice daily for diarrhea Small frequent meals throughout the day EGD ordered --- call [phone] to schedule Lactulose breath test to rule out SIBO -- call [phone] to schedule Consider Low fodmap diet, listed below Trial Ibgard FODMAP Diet What does FODMAP stand for? Fermentable Oligosaccharides (oligo - 'few', saccharide - 'sugar') Disaccharides (two sugars) Monosaccharides (one sugar) And Polyols (sugar alcohols) FODMAPs are a type of carbohydrate, or sugar found in certain foods. Carbohydrates give us energy, along with fat and protein. People with irritable bowel syndrome (IBS), a slow moving gut, poor other bowel disorder may not tolerate foods with FODMAPS. This is because FODMAPS are not easily absorbed by the bowel. Symptoms of FODMAP intolerance include gas, abdominal discomfort, distention, bloating, fullness, nausea, and/or pain after eating foods containing FODMAPS. High FODMAP Foods to avoid/reduce Vegetables and Legumes Garlic - avoid entirely if possible (Includes garlic salt, garlic powder) Onions - avoid entirely if possible (Includes onion powder, small picked onions Artichoke Asparagus Baked beans Bananas, ripe Beetroot, fresh Black beans Black eyed peas Broad beans Butter beans Cassava Cauliflower Celery - greater than 5cm of stalk Cho cho Choko Falafel Fermented cabbage e.g. sauerkraut Haricot beans Kidney beans Mosqueda beans Tobi bulb Tout Mixed vegetables Mung beans Mushrooms Peas, sugar snap Pickled vegetables Red kidney beans [place] Cabbage Soy beans / soya beans Split peas Scallions / spring onions (bulb / white part) Shallots Taro Drinks and Protein Powders Beer - if drinking more than one bottle Coconut water Cordial, apple and raspberry with 50-100% real juice Cordial, orange with 25-50% real juice Fruit and herbal teas with apple added Fruit juices in large quantities Fruit juices made of apple, pear, audrey Kombucha [place] juice in quantities over 100ml Rum Sodas containing High Fructose [place] Syrup (HFCS) Soy milk made with soy beans - commonly found in [place] Sports drinks Tea: Black tea with added soy milk Tapan tea, strong Dandelion tea, strong Fennel tea Chamomile tea Herbal tea, strong Oolong tea Wine - if drinking more than one glass Whey protein, concentrate unless lactose free Whey protein, hydrolyzed unless lactose free Fruit - can contain high fructose Apples Apricots Avocado Blackberries Blackcurrants Boysenberry Cherries Currants Custard apple Dates Feijoa Figs Goji berries Grapefruit Guava, unripe Lychee Audrey Nectarines Paw paw, dried Peaches Pears Persimmon Pineapple, dried Plums Pomegranate Prunes Raisins Sea buckthorns Sultanas [place] Tinned fruit in apple / pear juice Watermelon Condiments, Dips, Sweets, Sweeteners and Spreads Agave Caviar dip Fructose Fruit bar Gravy, if it contains onion High fructose corn syrup (HFCS) Hummus / houmous Honey Jam, mixed berries Jam, strawberry, if contains HFCS Pesto sauce Quince paste Relish / vegetable pickle Stock cubes Sugar free sweets containing polyols - usually ending in -ol or isomalt Sweeteners: Inulin Isomalt Maltitol Mannitol Sorbitol Xylitol Tahini paste Tzatziki dip Dairy Foods Buttermilk Cheese, cream Cheese, Halmoumi Cheese, ricotta Cream Custard Gelato Ice cream Kefir Milk: Cow milk Goat milk Evaporated milk Sheep s milk Sour cream Yoghurt Cereals, Grains, Breads, Biscuits, Pasta, Nuts and Cakes Wheat containing products such as (be sure to check labels): Biscuits including chocolate chip biscuits Bread, wheat - over 1 slice Breadcrumbs Cakes Cereal bar, wheat based Croissants Crumpets Egg noodles Muffins Pastries Pasta, wheat over 1/2 cup cooked Udon noodles Wheat bran Wheat cereals Wheat flour Wheat noodles Wheat rolls Wheatgerm Harrison meal Amaranth flour Barley including flour Bran cereals Bread: Granary bread Multigrain bread Naan Oatmeal bread Pumpernickel bread Roti Sourdough with jake Thompson Cous cous Einkorn flour Freekeh Gnocchi Granola bar Muesli cereal Muesli bar Pistachios [place] crispbread [place] Spelt flour Meats, Poultry and Meat Substitutes Chorizo Sausages documented in this encounterReg[facility] History of Present illness Narrative* Mary Murillo PA-C - 08/30/2023 12:31 PM EDT VIRTUAL VISIT NEW PATIENT NAME: Matt Calabrese CLINIC NO: [id number] DATE: 08/30/2023 REASON FOR VISIT Matt Calabrese [id number] has requested a video telemedicine initial consultation at the request of Aury Tristan. Matt Calabrese verbalized informed consent to proceed with the video telemedicine initial consultation. Matt Calabrese was informed that the details of this video visit wouldbe recorded as part of their electronic medical record. My recommendations will be conveyed to the consulting provider by way of shared electronic medical record, fax, or U.S. Mail. Patient location at time of call: [place] This visit was conducted as a virtual visit. I have communicated my name and active licensure. The patient's identity and physical location wereverified at the time of this visit. Either the patient or their legal scheduling representative has been informed of the risks and benefits of -- and alternatives to -- treatment through a remote evaluation andconsents to proceed with the evaluation remotely. No chief complaint on file. PRESENTING COMPLAINT Matt Calabrese is a 23 year old female with PMHx/PSHx of Asthma, IBS, s/p cholecystectomy who presents for evaluation of diarrhea. Patient states she has had chronic GI issues since turning 17. Reports undergoing EGD and colonoscopy in [place] when she was 18. States she was told she had IBS. Mentions anytime she eats, she willhave the urgency to have a BM immediately within 10-20 minutes. At baseline she has diarrhea, maybea formed BM once a week. Can have anywhere from 4-7 episodes of diarrhea when it occurs. Underwent cholecystectomy when she was 18. Has attempted cholestyramine and metamucil with no improvement of symptoms. Reports abdominal bloating after eating, with upper abdominal discomfort. No new medications, supplements or antibiotics. States she has noted recent weight gain despite adapting to healthierdiet eliminating sugar and carbohydrates. Has eliminated gluten and diary previously with no improvement of diet. Has attempted gaps diet with some improvement, but continued symptoms. Reports tryingbentyl previously. States she has chronic nausea, specifically in the morning, eating does not helpsymptoms. Denies heartburn/reflux related symptoms. Has intermittent dysphagia to solids where she feels food getting stuck at the base of her neck. Denies chronic NSAID use. Unaware of family hx. Denies smoking, etoh or illicit drug use. Denies fevers/chills, chest pain, sob, n/v, abdominal pain, hematemesis, hematochezia, melena, dysphagia, odynophagia. Answers submitted by the patient for this visit: Review of Systems Gastroenterology (Submitted on 08/30/2023) Fever: No Chills: No Night Sweats: No Unitentional Weight Change: No A Cough: No Difficulty Breathing: No Chest Pain: Yes Belly pain: Yes A feeling of fullness or have belly pain after eating: Yes Food getting stuck in your throat or chest after eating: Yes Nausea - that is, a feeling like you could vomit: Yes Regurgitation - that is, food or liquid coming back up into your throat or mouth without vomiting, or feel burning behind your breast bone: Yes Loss of appetite: No To throw up or vomit: No Blood in your stools: No Black tarry stools: No Loose or watery stools: Yes The feeling like you need to empty your bowels right away - that is, feel as if you would have an accident: Yes Bowel incontinence - that is, have an accident because you cannot make it to the bathroom in time: No Problems with straining while having bowel movements , hard or lumpy stools, or feel unfinished (that you have not passed all your stool): No Pain in rectum or anus during bowel movements: No Problems with jaundice - that is, yellow discoloration of your skin or eyes, now or in the past: No Problems with having to flush the toilet more than two times due to oily stool, or see stool floating with oil: No CURRENT MEDICATIONS Current Outpatient Medications Medication Sig Dispense Refill valACYclovir (VALTREX) 500 mg tablet Take 1 tablet by mouth every afternoon. benzonatate (TESSALON PERLE) 100 mg capsule Take 2 capsules by mouth three times a day as needed. (Patient not taking: Reported on 07/19/2023) 30 capsule 0 budesonide-formoterol (SYMBICORT) 80-4.5 mcg/actuation inhaler Inhale 2 Puffs as instructed every 6hours as needed. (Patient not taking: Reported on 07/19/2023) 10.2 g 0 hydrOXYzine HCl (ATARAX) 25 mg tablet TAKE 1/2 TABLET BY MOUTH 4 TIMES A DAY NEEDED FOR ANXIETY,IF TOLERATED WITHOUT EXCESSIVE TIREDNESS CAN TAKE FULL TAB sertraline (ZOLOFT) 50 mg tablet montelukast chewable (SINGULAIR) 4 mg tablet Take 4 mg by mouth once daily. (Patient not taking: Reported on 07/19/2023) albuterol HFA (PROVENTIL HFA, VENTOLIN HFA) 90 mcg/actuation inhaler Inhale 2 Puffs as instructed every 4 hours as needed. (Patient not taking: Reported on 07/19/2023) 1 Each 0 albuterol (PROVENTIL) 2.5 mg /3 mL (0.083 %) nebulizer solution As Directed (Patient not taking: Reported on 07/19/2023) No current facility-administered medications for this visit. Penicillins, Amoxicillin, Azithromycin, Clarithromycin, and Trazodone Recent Labs: CBC: WBC (k/uL) Date Value 02/26/2023 7.27 Hematocrit (%) Date Value 02/26/2023 40.4 MCV (fL) Date Value 02/26/2023 91.8 Platelet Count (k/uL) Date Value 02/26/2023 248 Lymphocytes % (%) Date Value 02/26/2023 38.9 Hepatic Function Panel: No results found for: ALB, TBILI, CBILI, ALKPHOS, AST, ALT, TPROT PAST MEDICAL HISTORY PAST MEDICAL HISTORY Diagnosis Date Asthma PAST SURGICAL HISTORY PAST SURGICAL HISTORY Procedure Laterality Date REMOVAL GALLBLADDER FAMILY HISTORY FAMILY HISTORY Problem Relation Age of Onset Breast Cancer Mother 37 Breast Cancer Maternal Grandmother Breast Cancer Paternal Grandmother Breast Cancer Maternal Aunt Breast Cancer Paternal Aunt SOCIAL HISTORY Social History Tobacco Use Smoking status: Never Passive exposure: Never Smokeless tobacco: Never ROS EyesNegative for vision changes, diplopia or epiphora. Ears, Mouth, nose, throat:No problems Cardiovascular: No Problems Respiratory: Negative for cough, wheezing and shortness of breath Gastrointestinal : SEE HPI Genitourinary: Negative Musuloskeletal: Normal Integumentary: no rashes, lesions, or jaundice Neurological: No history of neurologic problems Endocrine: Negative for cold or heat intolerance, polyuria, polydipsia and goiter. Psychiatric: Cooperative and agreeable Allergic/ Immunologic: Negative All others negative PHYSICAL EXAMINATION General: alert and appropriate, in no distress and well-hydrated, well nourished, Psych: Appropriate mood and interaction Skin: no rash noted, Head: normocephalic, no abnormality or lesion noted, Eyes: EOMI, Ears: external ears normal without erythema or edema, Nose: external nose normal without rhinorrhea, Oropharynx: moist mucus membranes Neck: full ROM Respiratory: breathing non-labored, and no grunting/flaring/retractions, Chest: equal chest rise with normal respiratory effort, Abdomen: flat appearing. Visible protrusions or hernias: No Incisions/scars: None Areas of pain/tenderness: Denies Neuro: Patient seen sitting with normal appearing strength and coordination. No focal motor deficits. Assessment IMPRESSION Matt Calabrese is a 23 year old female with PMHx/PSHx of Asthma, IBS, s/p cholecystectomy who presents for evaluation of diarrhea. Pt with chronic GI issues, dx with IBS previously after undergoing EGD and colonoscopy at age 17. Baseline diarrhea, can have 4-7 episodes. Tried cholestyramine and metamucil previously with no improvement of sx. Has tried bentyl in addition with no improvement. GAPs diet attempted in addition withsome improvement, though very restrictive. Significant abdominal bloating after meals, denies reflux. Chronic nausea in addition. No known food intolerances. Intermittent dysphagia to solids. PLAN At least 64 oz of water daily Trial colestipol 5 g BID Small frequent meals throughout the day EGD ordered for nausea, dysphagia Lactulose breath test to r/o sibo Consider Low fodmap diet Trial Ibgard Red flags for in person care discussed Follow up prn I spent a total of 30 minutes on the date of the service which included [id number] patient care, completing clinical documentation, counseling and educating the patient/family/caregiver, and ordering medications, tests, or procedures. Mary Murillo PA-C August 30, 2023 12:31 PM documented in this encounterReg[facility]03-22-2024 History of Present illness Narrative* Adilson Yanez, PT - 08/10/2023 11:16 AM EDT Pt arrived to clinic and discussed with this PT that she wanted to go to [facility] for her physical therapy care. Appointment cancelled. documented in this encounterReg[facility]03-21-2024 Telephone encounter Note * Telephone Encounter - Lorrie Tarn MA - 08/09/2023 9:41 AM EDT Faxed PT order from 08/09/2023 to [facility] in [facility] Patient provided fax number [phone] Confirmed at 9:40am [facility]03-21-2024 Miscellaneous Notes* Telephone Encounter - Lorrie Tran MA - 08/09/2023 9:41 AM EDT Faxed PT order from 08/09/2023 to [facility] in [facility] Patient provided fax number [phone] Confirmed at 9:40am documented in this encounterRegency [facility]03-18-2024 Instructions* Patient Instructions* Aury Tristan DO - 08/06/2023 11:19 AM EDT Sleep Study ordered Referral to Integrative Medicine for Fibromyalgia Syndrome - Dr. Shelby or Dr. Owens Referral to GI for IBS - diarrhea as well as previously pending work up to rule out IBD Referral to Physical Therapy for gluteus medius tendinopathy and patellofemoral syndrome Pending Stress Test and Echo for atypical chest pain - will follow up results with Pulmonology - pending Cardiology appt Pending PCP appt in September 2023 to follow up sleep study results Follow up as needed documented in this encounterReg[facility]03-18-2024 History of Present illness Narrative* Aury Tristan DO Moris - 08/06/2023 10:45 AM EDT Images from the original note were not included. Rheumatology Outpatient Clinic Date of Service: 08/06/2023 Patient: Matt Calabrese Medical Record: [id number] Primary Care Physician: No primary care provider on file. [facility]: [facility] Referring Provider: Anshul Fernandez PA-C Consultation requested by Anshul Fernandez PA-C for an opinion regarding fibromyalgia. My final recommendations will be communicated back to the requesting physician by way of shared Medical record or letter to requesting physician via US mail. History of Present Illness Matt Calabrese is a 23 year old female who presents on 08/06/2023 for an in- person visit for evaluation of Chest Pain. She is currently taking prednisone. HISTORY OF PRESENT ILLNESS Matt Calabrese is a very pleasant 23-year-old female who is referred by pulmonology for rheumatic evaluation with concern for atypical chest pain and to rule out fibromyalgia. Has a previous history of histoplasmosis with a CT shows lung nodules. Having progressively worsening chest pain on the right side. Feels that long is going to collapse whenever she tries to exert herself. She lives at a baseline of 3 out of 10 pain. No pain along the costochondral junction and pain is not to palpation.Initially thought to be related to her previous history of asthma though she has been on prednisonewith no relief. Pain is not positional and does not radiate. Pending appointment with cardiology as well as an echo and stress test. Denies any hair loss, rash, dry eyes, dry mouth, mouth sores, Raynaud's, photosensitive skin, jointpain, swelling, or morning stiffness. Unsure about any family history of rheumatic disease. Does have a history of migraines with visual auras, poor sleep waking up 6-12 times at night, irritable bowel syndrome (diarrhea), as well as anxiety and depression. Has occasional pain in bilateral hips extending into the glutes as well as knees going up and down stairs. Patient-Entered Data PAIN EVALUATION 08/06/2023 1046 Pain Level: 7 Pain Location: Chest Description: Aching;Pressure;Sore;Burning PROMIS Assessments 03/19/2023 04/02/2023 05/03/2023 PROMIS Global Health - (T-Scores - the mean of general population = 50. Five points is a clinicallymeaningful difference.) Physical T-Score 39.8 39.8 39.8 42.3 Mental T-Score 33.8 33.8 33.8 33.8 03/19/2023 04/02/2023 05/03/2023 PROMIS CAT Pain Interference PROMIS Adult Short Form-Global Health Score (Mental) 33.8 (Fair) 33.8 (Fair) 33.8 (Fair) No data to display No data to display RAPID 3 [place] Activities of Daily Living No Data Dress self? - Get in and out of bed? - Walk outdoors? - Wash and dry body? - Get in and out of car? - RAPID 3 Disease Activity Weighed Score Levels: 0 - 1: Near Remission 1.3 - 2.0: Low Severity 2.3 - 4.0: Moderate Severity 4.3 - 10.0: High Severity No data to display Review of Systems ROS RHEUMATOLOGYAll other reviewed and negative other than HPI. Past Medical History PAST MEDICAL HISTORY Diagnosis Date Asthma Past Surgical History PAST SURGICAL HISTORY Procedure Laterality Date REMOVAL GALLBLADDER Family History FAMILY HISTORY Problem Relation Age of Onset Breast Cancer Mother 37 Breast Cancer Maternal Grandmother Breast Cancer Paternal Grandmother Breast Cancer Maternal Aunt Breast Cancer Paternal Aunt Social History Social History Tobacco Use Smoking status: Never Passive exposure: Never Smokeless tobacco: Never Current Medications Current Outpatient Medications on File Prior to Visit Medication Sig predniSONE (DELTASONE) 20 mg tablet Take 2 tablets by mouth once daily for 5 days. valACYclovir (VALTREX) 500 mg tablet Take 1 tablet by mouth every afternoon. hydrOXYzine HCl (ATARAX) 25 mg tablet TAKE 1/2 TABLET BY MOUTH 4 TIMES A DAY NEEDED FOR ANXIETY,IF TOLERATED WITHOUT EXCESSIVE TIREDNESS CAN TAKE FULL TAB sertraline (ZOLOFT) 50 mg tablet benzonatate (TESSALON PERLE) 100 mg capsule Take 2 capsules by mouth three times a day as needed. (Patient not taking: Reported on 07/19/2023) budesonide-formoterol (SYMBICORT) 80-4.5 mcg/actuation inhaler Inhale 2 Puffs as instructed every 6hours as needed. (Patient not taking: Reported on 07/19/2023) montelukast chewable (SINGULAIR) 4 mg tablet Take 4 mg by mouth once daily. (Patient not taking: Reported on 07/19/2023) albuterol HFA (PROVENTIL HFA, VENTOLIN HFA) 90 mcg/actuation inhaler Inhale 2 Puffs as instructed every 4 hours as needed. (Patient not taking: Reported on 07/19/2023) albuterol (PROVENTIL) 2.5 mg /3 mL (0.083 %) nebulizer solution As Directed (Patient not taking: Reported on 07/19/2023) No current facility-administered medications on file prior to visit. Labs Latest Ref Rng & Units 02/26/2023 CBC WBC 3.70 - 11.00 k/uL 7.27 Hemoglobin 11.5 - 15.5 g/dL 12.7 Hematocrit 36.0 - 46.0 % 40.4 Platelet Count 150 - 400 k/uL 248 Abs Neut (ANC) 1.45 - 7.50 k/uL 3.57 Abs Lymph 1.00 - 4.00 k/uL 2.83 Latest Ref Rng & Units 02/26/2023 CMP Sodium 136 - 144 mmol/L 140 Potassium 3.7 - 5.1 mmol/L 3.8 Chloride 97 - 105 mmol/L 103 CO2 22 - 30 mmol/L 25 Glucose 74 - 99 mg/dL 99 BUN 7 - 21 mg/dL 13 Creatinine 0.58 - 0.96 mg/dL 0.65 Calcium 8.5 - 10.2 mg/dL 9.4 Imaging Last XR Hand/Finger - Impression Only No resulted procedures found. Last MRI Hand - Impression Only No resulted procedures found. Last XR Chest - Impression Only XR CHEST 2V FRONTAL/LAT Exam End: 08/03/2023 11:29 AM (Final result) Impression: IMPRESSION: No definite acute radiographic abnormality. ... Last XR Cervical Spine - Impression Only No resulted procedures found. Health Maintenance Current Immunizations Reviewed on 08/06/2023 No immunizations on file. Physical Exam GENERAL APPEARANCE: Well groomed. Alert and oriented x 3. In no distress. VITAL SIGNS: BP 116/67 Pulse 90 Temp (Src) 97.6 (Temporal) Wt 228 lb 11.2 oz (103.7kg) LMP 07/28/2023 SKIN: No rash, thickening, nodules, discoloration. EYES: EOMI HENT: Normal external examination of the ears and nose, lips, oropharynx and tongue. No oropharyngeal lesions, exudate, or sores. NECK: No mass or asymmetry. RESPIRATORY: Normal respiratory effort. Clear to auscultation and percussion. CARDIOVASCULAR: Heart RRR without gallop, murmur, or rub MUSCULOSKELETAL EXAMINATION: Soft tissue tender points: None Motor exam: Normal 5+/5+ muscle strength. Normal bulk and tone. Upper extremities: Normal inspection of joints. Shoulders, elbows, wrists, and hand joints without synovitis, swelling, tenderness, deformity, or lack of ROM Lower extremities: The hips and pelvis are without obvious signs of acute bony deformity, swelling, erythema, ecchymosis or instability. Active and passive range of motion are full, symmetrical, and painless. There is tenderness to palpation along the greater trochanters extending into the gluteal fossa bilaterally The knees are without obvious signs of acute bony deformity, swelling, erythema, ecchymosis or joint effusion. The patella is without tenderness. Apprehension is negative with medial and lateral glide. Patella crepitus is positive. Patella grind is positive. The medial joint line is nontender and without bony crepitus or step-off. The lateral joint line is nontender and without bony crepitus or st ep-off. Flexion & extension are full and symmetrical. 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 Has a previous history of histoplasmosis with a CT shows lung nodules. Having progressively worsening chest pain on the right side. Feels that long is going to collapse whenever she tries to exert herself. She lives at a baseline of 3 out of 10 pain. No pain along the costochondral junction and pain is not to palpation.Initially thought to be related to her previous history of asthma though she has been on prednisonewith no relief. Pain is not positional and does not radiate. Pending appointment with cardiology as well as an echo and stress test. Denies any hair loss, rash, dry eyes, dry mouth, mouth sores, Raynaud's, photosensitive skin, jointpain, swelling, or morning stiffness. Unsure about any family history of rheumatic disease. Does have a history of migraines with visual auras, poor sleep waking up 6-12 times at night, irritable bowel syndrome (diarrhea), as well as anxiety and depression. Has occasional pain in bilateral hips extending into the glutes as well as knees going up and down stairs. No evidence of rheumatic disease at this time on exam. She does have many features of fibromyalgia though we discussed that rheumatology does not manage this. Refer to integrative medicine for further evaluation. Ordered a stress test and she will follow this up with her primary care physician. Also asked for a GI referral to manage her IBS (no bloody stools). Physical therapy referral for gluteus medius tendinopathy and patellofemoral syndrome. Weight loss would also help with these issues. She may continue to follow-up with her roll bucker, follow-up with rheumatology on an as-needed basis though at this time, no need for follow-up. Plan Orders this visit: Office Visit on 08/06/23 POLYSOMNOGRAM (PSG) CONSULT TO GASTROENTEROLOGY CONSULT TO PHYSICAL THERAPY CONSULT TO WELLNESS PHYSICIAN Recommendations: Sleep Study ordered Referral to Integrative Medicine for Fibromyalgia Syndrome - Dr. Shelby or Dr. Owens Referral to GI for IBS - diarrhea as well as previously pending work up to rule out IBD Referral to Physical Therapy for gluteus medius tendinopathy and patellofemoral syndrome Pending Stress Test and Echo for atypical chest pain - will follow up results with Pulmonology - pending Cardiology appt Pending PCP appt in September 2023 to follow up sleep study results Follow up as needed Return if symptoms worsen or fail to improve. I spent a total of 60 minutes on the date of the service which included preparing to see the patient, [id number] patient care, completing clinical documentation, obtaining and/or reviewing separately obtained history, performing a medically appropriate examination, counseling and educating the pat ient/family/caregiver, ordering medications, tests, or procedures, and communicating results to thepatient/family/caregiver. Aury Tristan DO Rheumatology Date: August 06, 2023 Time: 11:35 AM documented in this encounterReg[facility]03-15-2024 History of Present illness Narrative* Orlando Chopra APRN.CATHEAD WORKER - 08/03/2023 11:00 AM EDT Subjective HPI HPI Matt Calabrese is a 23 year old female who presents today for CC of cough, congestion, fever for 2 days, vomiting first day. Has tried otc medication for relief. Symptoms are worsened by nothing.Risk factors sick exposures recently. Nonsmoker. Denies possibility of being . .Patient presents with: Cough: Chest congestion, NVD x2 days PAST MEDICAL HISTORY Diagnosis Date Asthma PAST SURGICAL HISTORY Procedure Laterality Date REMOVAL GALLBLADDER ALLERGIES Penicillins, Amoxicillin, Azithromycin, Clarithromycin, and Trazodone MEDICATIONS valACYclovir (VALTREX) 500 mg tablet Take 1 tablet by mouth every afternoon. benzonatate (TESSALON PERLE) 100 mg capsule Take 2 capsules by mouth three times a day as needed. (Patient not taking: Reported on 07/19/2023) budesonide-formoterol (SYMBICORT) 80-4.5 mcg/actuation inhaler Inhale 2 Puffs as instructed every 6hours as needed. (Patient not taking: Reported on 07/19/2023) hydrOXYzine HCl (ATARAX) 25 mg tablet TAKE 1/2 TABLET BY MOUTH 4 TIMES A DAY NEEDED FOR ANXIETY,IF TOLERATED WITHOUT EXCESSIVE TIREDNESS CAN TAKE FULL TAB sertraline (ZOLOFT) 50 mg tablet montelukast chewable (SINGULAIR) 4 mg tablet Take 4 mg by mouth once daily. (Patient not taking: Reported on 07/19/2023) albuterol HFA (PROVENTIL HFA, VENTOLIN HFA) 90 mcg/actuation inhaler Inhale 2 Puffs as instructed every 4 hours as needed. (Patient not taking: Reported on 07/19/2023) albuterol (PROVENTIL) 2.5 mg /3 mL (0.083 %) nebulizer solution As Directed (Patient not taking: Reported on 07/19/2023) FAMILY HISTORY Problem Relation Age of Onset Breast Cancer Mother 37 Breast Cancer Maternal Grandmother Breast Cancer Paternal Grandmother Breast Cancer Maternal Aunt Breast Cancer Paternal Aunt Social History Tobacco Use Smoking status: Never Passive exposure: Never Smokeless tobacco: Never Review of Systems Constitutional: Positive for fever and malaise/fatigue. HENT: Positive for congestion. Negative for ear pain, nosebleeds and sore throat. Respiratory: Positive for cough. Negative for shortness of breath and wheezing. Cardiovascular: Negative for chest pain. Gastrointestinal: Positive for nausea and vomiting. Negative for abdominal pain and diarrhea. Musculoskeletal: Negative for neck pain. Skin: Negative for itching and rash. Objective Blood pressure 134/79, pulse 103, temperature 36.6 C (97.8 F), resp. rate 20, weight 104.2 kg (229 lb 11.5 oz), last menstrual period 07/28/2023, SpO2 100%. Physical Exam Constitutional: General: She is not in acute distress. Appearance: She is not toxic-appearing or diaphoretic. HENT: Head: Normocephalic and atraumatic. Mouth/Throat: Lips: [place]. Mouth: Mucous membranes are moist. Pharynx: Oropharynx is clear. Uvula midline. Cardiovascular: Rate and Rhythm: Normal rate and regular rhythm. Heart sounds: Normal heart sounds, S1 normal and S2 normal. Pulmonary: Effort: Pulmonary effort is normal. Breath sounds: Normal breath sounds. Lymphadenopathy: Cervical: No cervical adenopathy. Right cervical: No superficial cervical adenopathy. Left cervical: No superficial cervical adenopathy. Neurological: Mental Status: She is alert and oriented to person, place, and time. Gait: Gait is intact. ASSESSMENT/PLAN: 1. URI, acute - ICD9: 465.9, ICD10: J06.9 (primary diagnosis) - Discussed viral etiology and rationale for treatment. - Symptomatic treatment with prn analgesia - Supportive care with fluids and rest - Follow up in 3-5 days if symptoms persist or sooner if worsening of symptoms - INFLUENZA A&B MOLECULAR (POC) - COVID & INFLUENZA A/B & RSV NAAT, ROUTINE - PREDNISONE 20 MG TABLET 2. Acute cough - ICD9: 786.2, ICD10: R05.1 - XR CHEST 2V FRONTAL/LAT IMPRESSION: No definite acute radiographic abnormality. Dictated by : AMADA CERRATO MD - PREDNISONE 20 MG TABLET Orlando Chopra APRN.CNP documented in this encounterReg[facility]-14-2024 Miscellaneous Notes* Telephone Encounter - Lul Carranza APRN.CNP - 08/02/2023 4:09 PM EDT I called and spoke with patient -- clarified no need for bronchoscopy to biopsy lung nodules at this point as they have remained stable for the last year. She has upcoming Echo scheduled 08/12. She will follow up after echo is complete. Lul Carranza APRN.JERALD * Telephone Encounter - Zuly October - 08/02/2023 2:05 PM EDT Ms. Calabrese asking for a call to discuss further lung issues, Callback # [phone] documented in this encounterReg[facility]03-09-2024 History of Present illness Narrative* Teofilo Coreas MD - 07/28/2023 2:56 PM EST Patient presents with: Pain (foot): Left ankle pain, outer lower x 1 month States pain is on and off and worse when its cold HPI: Lateral left foot pain: Duration: Worker's Comp left ankle sprain summer 2022 - off work 3 months. Still has problems from that. Cold temperature seems to flare it up. It improves with rest (even uses crutches at times). Nonew injury. MEDICATIONS: valACYclovir (VALTREX) 500 mg tablet Take 1 tablet by mouth every afternoon. hydrOXYzine HCl (ATARAX) 25 mg tablet TAKE 1/2 TABLET BY MOUTH 4 TIMES A DAY NEEDED FOR ANXIETY,IF TOLERATED WITHOUT EXCESSIVE TIREDNESS CAN TAKE FULL TAB sertraline (ZOLOFT) 50 mg tablet benzonatate (TESSALON PERLE) 100 mg capsule Take 2 capsules by mouth three times a day as needed. (Patient not taking: Reported on 07/19/2023) budesonide-formoterol (SYMBICORT) 80-4.5 mcg/actuation inhaler Inhale 2 Puffs as instructed every 6hours as needed. (Patient not taking: Reported on 07/19/2023) montelukast chewable (SINGULAIR) 4 mg tablet Take 4 mg by mouth once daily. (Patient not taking: Reported on 07/19/2023) albuterol HFA (PROVENTIL HFA, VENTOLIN HFA) 90 mcg/actuation inhaler Inhale 2 Puffs as instructed every 4 hours as needed. (Patient not taking: Reported on 07/19/2023) albuterol (PROVENTIL) 2.5 mg /3 mL (0.083 %) nebulizer solution As Directed (Patient not taking: Reported on 07/19/2023) ALLERGIES: ALLERGIES Allergen Reactions Penicillins Hives, Unknown Other reaction(s): Hives Amoxicillin Hives Azithromycin Hives, Itching Clarithromycin Hives Trazodone Other: See Comments Suicidal ideations Other reaction(s): Suicidal ideation VITALS: BP 113/76 Pulse 88 Temp 36.6 C (97.8 F) Resp 18 Wt 104 kg (229 lb 4.5 oz) LMP 07/28/2023 (Exact Date) SpO2 99% BMI 40.61 kg/m PE: Pleasant, in no acute distress. Normal gait. ASSESSMENT/PLAN: 1. Foot pain, left - ICD9: 729.5, ICD10: M79.672 (primary diagnosis) 2. Chronic pain of left ankle - ICD9: 719.47, 338.29, ICD10: M25.572, G89.29 Advised to follow up Worker's Comp. injury with her orthopedist. Teofilo Coreas MD documented in this encounterReg[facility]02-29-2024 History of Present illness Narrative* Yuni Guillen MD - 07/19/2023 10:00 AM EST MEDICAL BREAST PATIENT NAME: Matt Calabrese July 18, 2024 REFERRAL: She is referred by Lul Hargrove APRN.CNP for an opinion regarding Breast pain. My final recommendations will be communicated back to the requesting physician by the way of the shared medical record, fax, or via US Mail. 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 Patient had a CT scan done 03/2023 which revealed a Incidental ovoid 2.3 cm left breast mass, statistically likely benign such as cyst or fibroadenoma. Patient followed up with a Left ultrasound 04/2023 which showed 1.9 cm oval cyst in the left breast most likely is a cyst and is benign. The patient denies any breast masses, skin changes, or nipple discharge. Has Patient had Genetic Testing? No Her vitamin D level was No results found for: VITD25. She takes no supplements. BMD: No PERSONAL BREAST HISTORY: Past breast history (prior to this encounter) is as follows: Breast biopsy: No Breast cysts: No Breast surgery: No Breast cancer: No CANCER SURVEILLANCE: Mammograms: No Breast MRI: No Colonoscopy: No RISK FACTORS FOR BREAST CANCER: Age at the onset of menses: Does not remember P: 0 Age at the of first child: Not applicable. Age at menopause: The patient is not menopausal at this time. Post-menopausal hormone therapy: Not applicable She has an intact uterus and ovaries She does not use any control. History of Mantle Radiation prior to the age of 30: No Obesity: 41.10 kg/m Current Weight: 232lbs Mammographic density: Unknown Personal History of Benign Atypical Breast Biopsy: No Alcohol use: Never PAST MEDICAL HISTORY: PAST MEDICAL HISTORY Diagnosis Date Asthma Patient specifically denies history of: DVT, PE, , migraine headaches without aura, abnormal uterine bleeding, abnormal uterine biopsies, osteopenia, osteoporosis.+migraine headaches WITH AURA PAST SURGICAL HISTORY: PAST SURGICAL HISTORY Procedure Laterality Date REMOVAL GALLBLADDER SOCIAL HISTORY: Social History Tobacco Use Smoking status: Never Passive exposure: Never Smokeless tobacco: Never Caffeine intake: coffee and chocolate 2-3 times weekly Exercise: Physically active but no regular exercise program. FAMILY HISTORY: Family history of breast cancer: Mother age 30's , MGM bilateral BC, PGM, Maternal aunt, Paternal aunt Family history of ovarian cancer: None Number of sisters: 3 Number of maternal aunts: 2 Number of paternal aunts: 3 Ashkenazi Ancestry: No Other Cancer: PGF Blood cancer MGF- Lung cancer There is no family history of prostate, colon, uterine, pancreatic, gastric, brain, renal cell or thyroid cancer. There is no family history of melanoma, sarcoma or leukemia. Osteoporosis: None Stroke: None Blood Clot: None Heart attack: None Thyroid Nodule or Goiter: None Autism: None FAMILY HISTORY Problem Relation Age of Onset Breast Cancer Mother 37 Breast Cancer Maternal Grandmother Breast Cancer Paternal Grandmother Breast Cancer Maternal Aunt Breast Cancer Paternal Aunt MEDICATIONS: benzonatate (TESSALON PERLE) 100 mg capsule Take 2 capsules by mouth three times a day as needed. budesonide-formoterol (SYMBICORT) 80-4.5 mcg/actuation inhaler Inhale 2 Puffs as instructed every 6hours as needed. hydrOXYzine HCl (ATARAX) 25 mg tablet TAKE 1/2 TABLET BY MOUTH 4 TIMES A DAY NEEDED FOR ANXIETY,IF TOLERATED WITHOUT EXCESSIVE TIREDNESS CAN TAKE FULL TAB sertraline (ZOLOFT) 50 mg tablet montelukast chewable (SINGULAIR) 4 mg tablet Take 4 mg by mouth once daily. albuterol HFA (PROVENTIL HFA, VENTOLIN HFA) 90 mcg/actuation inhaler Inhale 2 Puffs as instructed every 4 hours as needed. albuterol (PROVENTIL) 2.5 mg /3 mL (0.083 %) nebulizer solution As Directed ALLERGIES: ALLERGIES Allergen Reactions Amoxicillin Hives Clarithromycin Hives Penicillins Hives Trazodone Other: See Comments Suicidal ideations Zithromax [Azithrom* Hives REVIEW OF SYSTEMS: The patient specifically denies unintentional weight loss, insomnia, hot flashes, night sweats, abnormal swelling in the arms or legs, chest pain, shortness of breath, persistant cough, heartburn, urinary incontinence, vaginal dryness, decreased libido, unusual bony pains or severe headaches. PHYSICAL EXAM: Last Menstrual Period 05/17/2023 (Exact Date) General: well-nourished, healthy, female, alert and oriented x 3, calm Skin: warm, dry, skin color, texture, turgor normal Head/Eyes: normocephalic, atraumatic, and anicteric Breasts and Regional Lymph Nodes: The patient was examined in the upright and supine positions. There is no concerning supraclavicular, infraclavicular or axillary lymphadenopathy. The breasts are symmetrical in appearance without visible skin or nipple changes. There are no dominant breast masses or nipple discharge bilaterally. The breasts were non-tender. There was mild to moderate fibrocysticchange throughout. IMAGING: Deferred Unknown. Assessment IMPRESSION/PLAN: (N60.11 ) Bilateral fibrocystic breast changes (primary encounter diagnosis) (N60.02) Cyst of left breast (N64.4) Breast pain (Z80.3) Family history of breast cancer- mother in 30's , MGM, PGM (E66.3) Excess weight There is no evidence of malignancy. The patient was reassured as to the benign nature of her clinical findings. She meets ACS criteria for screening breast MRI and will be followed twice yearly with clinical exams as well as annual DBT alternating with screening breast MRI. Genetics referral made: Yes - family estranged . Patient not close to her mom or dad Chemoprevention discussion: Patient is not done childbearing. The patient is advised to exercise regularly, achieve/maintain ideal body weight, and to limit alcohol consumption to less than 7 drinks weekly for breast cancer risk reduction and overall health. She will return in 6 months for follow-up evaluation. She will call me in the interim should she have any questions or concerns. My final recommendations will be communicated back to the requesting physician by way of shared medical record or letter via US mail. I spent a total of 45 minutes minutes on the date of the service which included preparing to see the patient, [id number] patient care, completing clinical documentation, obtaining and/or reviewing separately obtained history, performing a medically appropriate examination, counseling and educating the patient/family/caregiver, ordering medications, tests, or procedures, independently interpreting results (not separately reported), communicating results to the patient/family/caregiver, and care coordination (not separately reported). Yuni Guillen MD Medical Breast Specialist July 18, 2023 CC: To use this Smartlink, specify the provider ID whose address you want to display, e.g., .PROVADDR[1(where 1 is the provider ID). documented in this encounterRegency [facility]02-29-2024 Instructions* Patient Instructions* Raya Nina Lucy M - 07/19/2023 9:51 AM EST General Breast Health Recommendations A healthy body helps promote healthy breasts. If you smoke, please consider a smoking cessation program. If you do not exercise, please consider starting an exercise program if you are able to, even if it is just walking in your neighborhood. Research shows that obesity, especially post-menopausal obesity, is a risk factor for breast cancer. Obtaining calcium in your diet or taking a calcium supplement that contains vitamin D is good for your bones. There is evolving evidence that Vitamin D supplementation may also help to decrease breast cancer risk. If you are post-menopausal and are bothered by hot flashes and still have a uterus, combined estrogen-progesterone preparations can increase your risk of breast cancer if taken for longer than five years. Alcohol is also an under-recognized risk factor. Every drink you have daily increases your breast cancer risk by 10%. Mammograms save lives. Have an annual mammogram annually beginning at age 40. Continue annual mammograms as long as you remain in good health. Breast self-exam, performed on day 7 of your menstrual cycle, can also be very helpful. Know your breasts and report changes to your health care provider or breast specialist. Clinical breast exams by your primary care provider or breast specialist are recommended annually every 1-3 years for women over the age of 20 and annually after the age of 40. Increased frequency ofthe clinical exam may be recommended for women at increased risk of breast cancer. Risk factors for breast cancer: Being a woman Family history of breast cancer Early menarche (onset of menses) prior to age 12 Nulliparity (never had children) First child after age 29 Late menopause (stopping of periods) after age 54 History of breast biopsy that showed atypical cells (ADH, ALH, LCIS, FEA) Presence of a genetic mutation (BRCA1, BRCA2, PTEN, P53, CDH1) History of chest wall irradiation (such as with Hodgkin's Lymphoma) prior to age 30 Personal history of breast cancer Post-menopausal Obesity Combined hormone therapy (estrogen and progesterone) for greater than 5 years Alcohol consumption of greater than 7 alcohol-containing drinks per week Breast density If you have a family history of breast or ovarian cancer, review this with your primary care provider or breast specialist to see if a referral for genetic counseling is recommended. 5-10% of breast cancers and up to 15% of ovarian cancers are linked to a genetic mutation. Signs of hereditary breast cancer syndrome include breast cancer that occurs under the age of 50, ovarian cancer at any age, male breast cancer, multiple family members affected with breast cancer, and a history of Ashkenazi Nondenominational ancestry. Breast pain is very common and usually is not a sign of cancer, but should be evaluated by a breastspecialist. For comfort, simply reducing caffeine (coffee, tea, chocolate, energy drinks, sodas) inyour diet can provide relief. A properly fitted bra can also be helpful in reducing breast pain. Ifthose two measures do not provide relief, taking Evening Camden Oil 1000mg capsules twice a day for a short period of time (three to four months) may be helpful. Many women wonder about their breast density. Dense breast tissue is, in and of itself, a relatively common condition which could hide abnormalities in a screening mammogram. This information is not provided to cause undue concern; rather, it is to raise your awareness and promote discussion with your health care provider regarding the presence of dense breast tissue in addition to other risk factors. If you would like to compliment one of our caregivers you encountered today, you may do so at [email or web address]. Thank you ! documented in this encounterRegency [facility]02-29-2024 Nurse Note* Lucy Dos Santos Ma - 07/19/2023 9:49 AM EST Patient is being seen today to establish care Last mammogram on: N/A Is the patient active on MyChart Yes Electronically Signed By: Lucy Dos Santos Ma In Department: BREAST CENTER REVIEW OF PATIENT HISTORY: OB History No obstetric history on file. FAMILY HISTORY Problem Relation Age of Onset Breast Cancer Mother 37 Breast Cancer Maternal Grandmother Breast Cancer Paternal Grandmother Breast Cancer Maternal Aunt Breast Cancer Paternal Aunt PAST MEDICAL HISTORY Diagnosis Date Asthma PAST SURGICAL HISTORY Procedure Laterality Date REMOVAL GALLBLADDER Social History Tobacco Use Smoking status: Never Passive exposure: Never Smokeless tobacco: Never documented in this encounterRegency [facility]02-29-2024 History of Present illness Narrative* Adair Dawkins MD - 07/19/2023 9:00 AM EST Images from the original note were not included. SECTION OF RHINOLOGY, SINUS AND SKULL BASE SURGERY Head and Neck [place], [facility] NOTE This patient is a new patient. They are seen at the request of: Yasmine Alberto for chronic recurrent sinusitis [address] [facility] [address] [facility] [id number] CC: CRS CONSULT Patient confirms that consultation was verbally initiated by the specified requesting physician. Final recommendations will be communicated back to the requesting physician through the shared medical record or written communication (sent by US mail). HPI: Matt Calabrese is a 23 year old female who states she is here to see if she has an sinonasal involvement with her lung symptoms. She states she has nodules and cough and pain in her chest. She has nonasal symptoms, she can breathe, does not blow her nose, has not facial pressure, does not get recurrent infections. She states this is more of a rule out visit. PAST MEDICAL HISTORY: PAST MEDICAL HISTORY Diagnosis Date Asthma PAST SURGICAL HISTORY: PAST SURGICAL HISTORY Procedure Laterality Date REMOVAL GALLBLADDER FAMILY HISTORY Problem Relation Age of Onset Breast Cancer Mother 37 Breast Cancer Maternal Grandmother Breast Cancer Paternal Grandmother Breast Cancer Maternal Aunt Breast Cancer Paternal Aunt Social History Tobacco Use Smoking status: Never Passive exposure: Never Smokeless tobacco: Never MEDICATIONS: Current Outpatient Medications Medication Sig benzonatate (TESSALON PERLE) 100 mg capsule Take 2 capsules by mouth three times a day as needed. budesonide-formoterol (SYMBICORT) 80-4.5 mcg/actuation inhaler Inhale 2 Puffs as instructed every 6hours as needed. hydrOXYzine HCl (ATARAX) 25 mg tablet TAKE 1/2 TABLET BY MOUTH 4 TIMES A DAY NEEDED FOR ANXIETY,IF TOLERATED WITHOUT EXCESSIVE TIREDNESS CAN TAKE FULL TAB sertraline (ZOLOFT) 50 mg tablet montelukast chewable (SINGULAIR) 4 mg tablet Take 4 mg by mouth once daily. albuterol HFA (PROVENTIL HFA, VENTOLIN HFA) 90 mcg/actuation inhaler Inhale 2 Puffs as instructed every 4 hours as needed. albuterol (PROVENTIL) 2.5 mg /3 mL (0.083 %) nebulizer solution As Directed No current facility-administered medications for this visit. ALLERGIES: ALLERGIES Allergen Reactions Amoxicillin Hives Clarithromycin Hives Penicillins Hives Trazodone Other: See Comments Suicidal ideations Zithromax [Azithrom* Hives ROS: Constitutional: Denies having night sweats, constant fatigue, loss of appetite, or recent substantial weight loss. Eyes: The patient denies having blurred vision or double vision. Respiratory: See HPI GI: Denies symptoms of heartburn, acid regurgitation, or the known presence of a hiatal hernia. 10 point review of systems was otherwise normal. REVIEW OF RADIOLOGICAL FILMS AND RECORDS: Previous operative, pathology, and radiological reports were reviewed and filed in the permanent chart. PHYSICAL EXAM: Constitutional: General appearance: well developed, well nourished, without obvious deformities Communication: the patient speaks with a normal voice without hoarseness Head and Face: Overall appearance: no obvious scars, lesions or masses Facial strength: normal and equal bilaterally . No tenderness to palpation Eyes: PEERL EOMI Ears, Nose, Mouth, Throat: External ears and nose: normal in appearance, without scars, lesions, or masses Ears: both left and right external auditory canals and tympanic membranes are normal Nasal exam: the mucosa is pink, the septum is midline, and the visible turbinates are normal on anterior rhinoscopy Oral cavity and oropharynx: The lips, the oral mucosa, hard and soft palates, tongue, tonsil area, and posterior pharyngeal mucosa are without lesions Respiratory: . Normal respirations on inspection Neurological . Normal mental status . Normal orientation . Cranial Nerves 3-12 intact PROCEDURE NOTE:: Procedure: Nasal endoscopy Indication: Chronic sinusitis Findings: After topical decongestion and anesthesia with 2% lidocaine and afrin were administered. Rigid endoscopy was performed. It revealed: no evidence of sinusitis ASSESSMENT: Matt Calabrese is a 23 year old female with 1) normal nasal exam PLAN: 1) Rigid Nasal Endoscopy today to assess for infection demonstrates no infection 2) follow up prn Oriana Campbell APRN.CATHEAD WORKER By signing my name below, I, Pepito Link, attest that this documentation has been prepared under the direction and in the presence of Dr. Dawkins Electronically signed, Luisana Whyte July 19, 2023 8:36 AM Disclosure: Dr. Dawkins receives payments from [employer] for conducting educational activities and/or consulting. An [employer] and or intersect product may be used in your care. Dr. Dawkins does not receive any money for products he/she or any other [facility] physicians prescribe or use. Dr. Dawkins's choice on which product to use in your case was not influenced by his/her relationship with [employer] or [employer]. Your physician selected the product that in his or her hands is believed to be the best option for your treatment. Consultation requested by Dr. Yasmine Alberto for an opinion regarding CRS. My final recommendations will be communicated back to the requesting physician by way of shared Medical record or letterto requesting physician via US mail. Medical Decision Making: Problems: Moderate: New problem with uncertain prognosis Risk: Low: Low risk from testing/treatment Medical Decision Making Level: 3 - Low documented in this encounterRegency Hospital [facility]02-23-2024 Note ORIGINAL HISTORY: Irregular menstrual cycles COMPARISON: No FINDINGS: The uterus measures 8.5 cm in length. There is a 7 mm endometrial stripe. The ovaries are unremarkable in appearance, with normal blood flow. There is no free fluid. IMPRESSION: Unremarkable examination. Interpreted by: Jake Lane MD Preliminary Report By: Jake Lane MD Electronically signed By Jake Lane MD Dictated Date: 07/13/2023 1:56:24 PM Prelim Date: 07/13/2023 1:57:03 PM Sign Date: 07/13/2023 1:57:03 PM Ordering Provider: [facility] Linda [id number] Miscellaneous Notes* Telephone Encounter - Lucy Dos Santos Ma - 07/10/2023 1:05 PM EST Called and spoke to patient regarding upcoming appointment She had a CT scan in 03/2023 which had an incidental finding in the left breast Patent went on to have left ultrasound which revealed a 1.9 cm oval cyst at 9:00 middle depth Patient has strong FH of breat cancer which includes Mother age 37 Maternal aunt MGM PGM Paternal aunt Patent is not in contact with any family. She is unsure if anyone has had genetic testing Reminded of appointment day, time and location Lucy Dos Santos Ma documented in this encounterRegency Hospital [facility]02-06-2024 Miscellaneous Notes* Telephone Encounter - Lul Carranza APRN.CNP - 06/26/2023 3:59 PM EST I called and left message for patient. Advised her to call the office back to discuss further. Lul Carranza APRN.CNP * Telephone Encounter - Zuly October - 06/25/2023 3:40 PM EST Ms. Calabrese asking for a callback to review somethings about nodules. Callback # [phone] documented in this encounterReg[facility] History of Present illness Narrative* Anshul Fernandez PA-C - 06/25/2023 7:20 AM EST Images from the original note were not included. [facility] [place] Follow Up Patient Visit Virtual Visit Of Note: Pt could not get video to work so had to perform as a telephone encounter. Pt consent to this. Last Visit (06/06/2023) Summary - Portions of today's visit copied/pasted from previous note(s): Matt Calabrese is a 22 year old female and is here for evaluation of asthma, chest tightness Referred by Lul Carranza HPI: Has history of asthma since she was a baby. Was born full term. Knows she had to use medications asa child but is not sure what she was on. Went through period of time from [age]y/o where she did nothave any symptoms. Notices a difference when she is taking her medications, but still can always feel her lungs. Has shortness of breath when laying down. If she lays on her back she feels like her lungs fill with fluid and she coughs up clear fluid. Denies a sour taste. Has had pneumonia multiple times. Has been on steroids >6times in the past year. Does not feel any different when she is on them. Had last dose 2 weeks ago. Endorses rhinorrhea with green mucus. Misses work frequently d/t being sick. Has never been hospitalized for her asthma. Was on CPAP when she was 18. Working on getting a new sleep test.Coughs frequently, will bring up clear fluid. Endorses chest tightness & shortness of breath. Denies wheeze. Cold weather triggers her as well as exercise. Denies symptoms of heartburn. ASTHMA CONTROL TEST Date: 06/06/2023 In the last 4 weeks, how much of the time did your asthma keep you from getting as much done at work or home that you wanted to do? A little of the time (4) In the last 4 weeks, how often have you had shortness of breath? 3 to 6 times per week (3) In the last 4 weeks, how often did your asthma symptoms (wheezing, coughing, shortness of breath, chest tightness or pain) wake you up at night or earlier than usual? 4 or more nights per week (1) In the last 4 weeks, how often have you used your rescue inhaler or nebulizer medication (such as Albuterol, Proventil, Ventolin, Maxair, Xoponex, or Primatene Mist)? A few times per week (3) In the last 4 weeks, how would you rate your asthma control? Somewhat controlled (3) Total: IMPRESSION: Recurrent respiratory illnesses and persistent chest tightness/shortness of breath. Unsure if this is related to asthma d/t no improvement of symptoms while on steroids. Will check immunity panel to r/o underlying immunodeficiencies. History of asthma in childhood, will do methacholine challenge tosee how much of a role asthma is playing in current symptoms. D/T frequent sinus infections would be beneficial schedule with ENT to r/o pathology effecting lungs. PLAN: -Check immunoglobulin panel to r/o immunodeficency -Schedule with ENT for recurrent sinus infections -Schedule methacholine challenge HISTORY OF PRESENT ILLNESS Matt Calabrese is a 23 year old female with a PMH of recurrent respiratory illnesses and Lung nodules who presents for follow up. Since her last visit, she continues to have persistent coughing. States that she has lung pain for 2 years. This has not changed. Feels like someone is sitting on her chest. It is more on the R side than the left but both lungs bother her. Sometimes aches and lombardo. Typical activity makes it worse. Laying down makes it worse as well. Feels like there is more pressure. She can only sleep on her stomach. If she sleeps on her back or side she feels like fluid builds up. Denies any leg swelling. No change in weight. This pain is constant. She states that before this started she was coughing for a couple months and was constantly sick. She went to doctors and was treated for asthma and never had any benefit with this. Started out where she had it just when she wascoughing. However, over the past year the pain has become consistent. She intermittently gets SOB but not always. Denies any GERD. Cough is not worse after meals. States that she wakes up every morning coughing. Wakes up throughout the night. Denies any bitter taste in her mouth. Does not have to clear her throat throughout the day. She does not wake up with a hoarse voice. Denies any smoking or vaping. Tried 1 cigarette when she was 17 yo. Denies any fevers. Cough can sometimes be productive but not always. Denies any PND or rhinorrhea. No sinus pain or pressure. Gets maybe 1 sinus infection per year. Shehas had numerous PNA many times (> 5 times). Denies any hemoptysis. She did not feel like her symptoms were reproduced with MCT. Never had response to prednisone and no response with this. No improvement with nebulizer or inhaled ANTONIO. Pt inquires about bronchoscopies. States that back in [place] she had a neely for tachycardia where she had a holter monitor. Never had a stress test. Denies any Fhx of SCD or heart disease at a young age. No illicit drug use. Her PCP is through [facility] in [place]. States that her heart rate will be around 100 bpm when she is sleeping. She is doing a sleep study later this month as she does not generally go into deep sleep. Used to be on CPAP as she had a hx of NATASHA. PAST MEDICAL AND SOCIAL HISTORY PAST MEDICAL HISTORY Diagnosis Date Asthma Social History Tobacco Use Smoking status: Never Passive exposure: Never Smokeless tobacco: Never CURRENT MEDICATIONS AND ALLERGIES Current Outpatient Medications Medication Sig Dispense Refill benzonatate (TESSALON PERLE) 100 mg capsule Take 2 capsules by mouth three times a day as needed. 30 capsule 0 budesonide-formoterol (SYMBICORT) 80-4.5 mcg/actuation inhaler Inhale 2 Puffs as instructed every 6hours as needed. 10.2 g 0 hydrOXYzine HCl (ATARAX) 25 mg tablet TAKE 1/2 TABLET BY MOUTH 4 TIMES A DAY NEEDED FOR ANXIETY,IF TOLERATED WITHOUT EXCESSIVE TIREDNESS CAN TAKE FULL TAB sertraline (ZOLOFT) 50 mg tablet montelukast chewable (SINGULAIR) 4 mg tablet Take 4 mg by mouth once daily. albuterol HFA (PROVENTIL HFA, VENTOLIN HFA) 90 mcg/actuation inhaler Inhale 2 Puffs as instructed every 4 hours as needed. 1 Each 0 albuterol (PROVENTIL) 2.5 mg /3 mL (0.083 %) nebulizer solution As Directed No current facility-administered medications for this visit. ALLERGIES Allergen Reactions Amoxicillin Hives Clarithromycin Hives Penicillins Hives Trazodone Other: See Comments Suicidal ideations Zithromax [Azithrom* Hives REVIEW OF SYSTEMS Review of Systems Constitutional: Negative for fever. HENT: Negative for postnasal drip and rhinorrhea. Respiratory: Positive for cough and shortness of breath (occasionally). Negative for chest tightness and wheezing. Cardiovascular: Positive for chest pain. PHYSICAL EXAM Physical Exam Pulmonary: Comments: No conversational dyspnea noted over the phone DIAGNOSTIC REVIEW I personally reviewed and interpreted the PFTs PFTs: Spirometry: 06/06/2023: Methacholine Challenge: 06/21/2023: IMPRESSION AND PLAN (R07.89) Atypical chest pain (primary encounter diagnosis) Matt Calabrese is a 23 yo female with a PMH of recurrent respiratory illnesses and Lung nodules whopresented for follow up. She recently had a MCT which was negative. Her s/s are not suggestive of asthma especially given absence of response to ANTONIO and prednisone and negative MCT. Thus, low suspicion for asthma and she can stop any asthma inhalers. It is difficult to discern what is causing her chest pain. Though she sometimes feels like she has some burning and aching she denies any GERD and does not have a lot of secondary signs of GERD. These symptoms seemed to start after she had a multiple month bout with URI and I do wonder about potential pericardial disease especially given the pain is worse when she lays flat and better when she sits up and she does have intermittent tachycardiaas well. She has no Fhx of sudden cardiac and no hx of early onset heart disease. However, given the exertional component of the chest pain she would likely benefit from a stress test and was advised to discuss this with her PCP. She would also benefit from echo to ensure that there are no structural abnormalities which could be contributing to this SOB as well. Pt voiced that she would like a bronchoscopy and we discussed the risk and benefits of invasive procedures and need to rule out other potential chest etiologies given exertional CP. She voiced understanding and agreement with phoebe s. - STOP Symbicort, Singulair, albuterol - Discuss possible stress test with PCP - Obtain Echo - Continue to follow with [facility] for monitoring - repeat CT chest in 12 months I spent a total of 45 minutes on the date of the service which included preparing to see the patient, [id number] patient care, completing clinical documentation, performing a medically appropriate examination, counseling and educating the patient/family/caregiver, ordering medications, tests, or p rocedures, and communicating results to the patient/family/caregiver. Discussed with the patient who agrees to the plan. I answered all pt questions and there were no apparent barriers to communication present. Anshul Fernandez PA-C [facility] documented in this encounterReg[facility]12-04-2023 Miscellaneous Notes* Letter - Coordinator Mammography - 04/23/2023 2:36 PM EST April 24, 2023 PID: [id number] Matt Calabrese [address] [place] [address] Dear Sarah Bharati, We are pleased to inform you that the results of your recent breast imaging exam on 04/23/2023 are normal. However, because you and/or your physician described a possible abnormality you should consult your physician or other health care provider for further evaluation if necessary. Early detection of cancer is very important. We also understand recommendations regarding breast cancer screening are controversial. Please discuss with your primary care provider which strategy is best for you and whether a mammogram is right for you. Your imaging studies and report will be kept on file at [facility] as part of your permanent medical record and are available for your continuing care. Thank you for allowing us to help in meeting your health care needs. Sincerely, Dr. Lai Interpreting Radiologist [facility] (Normal-Clinical Evaluation) documented in this encounterRegency Hospital [facility]11-30-2023 History of Present illness Narrative* Merry Galvan - 04/19/2023 4:26 PM EST Sent to Scheduling CT order request to LEOLA documented in this encounterRegency Hospital [facility]11-30-2023 Miscellaneous Notes* Telephone Encounter - Rhona Campbell RN - 04/19/2023 3:24 PM EST 04/19/23: Lul Carranza requested films: Any CT scan of chest from [facility] ([place])-- possibly May 2021 and October 2021 FAX: [phone] STAT--SENT Rhona Campbell RN [facility] documented in this encounterRegency Hospital [facility]11-30-2023 Miscellaneous Notes* Telephone Encounter - Lul Carranza APRN.CNP - 04/19/2023 2:21 PM EST I received a message earlier today that patient had called in. I called her back but had to leave avoicemail. Advised her to call back at her earliest convenience. Lul Carranza APRN.CNP documented in this encounterRegency Hospital [facility]11-28-2023 Instructions* Patient Instructions* Lul Carranza APRN.CNP - 04/17/2023 9:52 AM EST It was nice seeing you today! Reason for your visit: Lung Nodule Your CT scan shows scattered lung nodules that look like they may be related to a prior fungal exposure. We should keep an eye on the nodules to ensure they are not growing in size I will obtain your prior imaging from [facility] to see if we can make a comparison of the nodules. Continue to use the albuterol as needed for now We will have you update the breathing tests and see a provider for asthma I will contact you once we have received the images from the other hospital Please call our office with any questions or concerns [phone] (Lung Nodule Clinic) Thank you, Lul Carranza APRN.CNP documented in this encounterRegency Hospital [facility]11-28-2023 History of Present illness Narrative* Lul Carranza APRN.CNP - 04/17/2023 9:17 AM EST Images from the original note were not included. [facility] INCIDENTAL LUNG NODULE PROGRAM Impression / Recommendations 1. Lung nodules - ICD9: 793.19, ICD10: R91.8 (primary diagnosis) - CT chest reviewed with patient there are a few solid lung nodules measuring up to 10 mm in size. We discussed these may be related to a granulomatous process given surrounding satellite nodules andprevious positive fungal antibody tests (?). I am unsure if these are stable or new compared to prior imaging. I will obtain imaging from [facility] and schedule patient for a virtual visit to review together. Hold off on any repeat blood work for now. Follow up imaging will be determined based on comparison to prior imaging and patient symptoms. 2. Moderate persistent asthma without complication - ICD9: 493.90, ICD10: J45.40 - PFTs ordered. Will assist patient to schedule these for further work up of asthma. - LUNG DIFFUSION CAPACITY (DLCO) - NITRIC OXIDE, EXHALED Matt Calabrese expresses understanding and is in agreement with plan. All questions were answered to their apparent satisfaction. I will contact her to schedule virtual visit once we have received OSH imaging. Lul Carranza, PHARMACY CLERK.CATHEAD WORKER Incidental Lung Nodule Follow Up Concern for New Cancer Diagnosis: No Follow up Date: 05/03/2023 Lung Nodule Follow-Up Scheduled: Yes Enrolled in Lung Nodule program: Yes Lung Nodule Program Location: [place] Thank you for allowing me to participate in the care of Matt Calabrese. Please feel free to contactme with any questions or concerns. Consulting Physician Jack Alvarez [address] [place] [phone] Reason for the Consult Matt Calabrese presents today for consultation / opinion regarding lung nodule(s). My impression and final recommendations will be communicated back to the requesting physician by way of shared medical record or letter via US mail. History of Present Illness Matt Calabrese is a 22 year old female Never smoker with a past medical history significant for Asthma, who is being seen as a new consultation for evaluation of a lung nodule(s). The patient states she recently moved from [place] and has established care with pulmonary due to persistent cough and shortness of breath on exertion. Also notes some wheezing. She states cough is productive and worse at night. She is propping herself up on pillows which helps. Denies sinus drainage. She states last URI was in early March. Also has history of bronchitis and pneumonia previously. She states she has a history of asthma. She uses albuterol a couple of times per week with some relief. Due to the cough, roll bucker ordered CT chest which showed lung nodules measuring up to 10 mm insize. The patient states she does have a history of lung nodules which were worked up in [place] last year. She states she had CT imaging done at [facility]. She states nodules were worked up for autoimmune vs infectious etiologies. She states she had a biopsy scheduled but it was nevercompleted. She states she was treated with 8-12 weeks with oral antifungal medications due to bloodwork that was positive for fungal antibodies. The patient is wondering if nodules have changed and whether his could be reason for persistent cough. Previous scans in May 2021 (states there was one nodule)--October of 2021 - [facility].Imaging is not available today for review. (PCP was Zulay Cedeno-- [facility] [address] [place] [address]-) Exposure: Has lived in [place], [place] x 4 years, [place] x 1 year Mold exposure in the home No pets, no bird exposures Minimal second hand smoke exposure Some exposure to household cleaning chemicals Lung Nodule(s) Characteristics Date of imaging study: 04/15/23 Type of imaging study: CT Chest Nodule detection: During evaluation of systemic symptoms Number of nodules: 3 Size of most concerning nodule: 8 Density of most concerning nodule: Solid Border of most concerning nodule: Irregular Location of most concerning nodule: Right middle lobe Has the patient had prior chest imaging? No -- prior imaging from OSH is not available for review today. Lung Nodule Risk Factors: Tobacco Use: Never Does the patient have a prior history malignancy? No Does the patient have COPD/Emphysema? No Does the patient have a family history of lung cancer? No Past Medical History PAST MEDICAL HISTORY Diagnosis Date Asthma Past Surgical History PAST SURGICAL HISTORY Procedure Laterality Date REMOVAL GALLBLADDER Medications hydrOXYzine HCl (ATARAX) 25 mg tablet TAKE 1/2 TABLET BY MOUTH 4 TIMES A DAY NEEDED FOR ANXIETY,IF TOLERATED WITHOUT EXCESSIVE TIREDNESS CAN TAKE FULL TAB sertraline (ZOLOFT) 50 mg tablet montelukast chewable (SINGULAIR) 4 mg tablet Take 4 mg by mouth once daily. albuterol HFA (PROVENTIL HFA, VENTOLIN HFA) 90 mcg/actuation inhaler Inhale 2 Puffs as instructed every 4 hours as needed. albuterol (PROVENTIL) 2.5 mg /3 mL (0.083 %) nebulizer solution As Directed Allergies ALLERGIES Allergen Reactions Amoxicillin Hives Clarithromycin Hives Penicillins Hives Trazodone Other: See Comments Suicidal ideations Zithromax [Azithrom* Hives Family History No family history on file. Social History Social History Tobacco Use Smoking status: Never Passive exposure: Never Smokeless tobacco: Never Review of Systems GENERAL: No weight loss, malaise or fevers HEENT: No nasal bleeding, congestion or rhinorrhea RESPIRATORY: Negative for shortness of breath, cough, wheezing or mucus CARDIOVASCULAR: Negative for chest pain or palpitations. No dyspnea on exertion. SKIN: Negative for lesions, rash, and itching Physical Exam BP 131/82 Pulse 99 Temp 37 C (98.6 F) (Temporal) Resp 16 Wt 104.3 kg (230 lb) SpO2 96% Physical Exam Vitals reviewed. Constitutional: General: She is not in acute distress. Appearance: Normal appearance. HENT: Head: Normocephalic and atraumatic. Nose: No congestion. Mouth/Throat: Mouth: Mucous membranes are moist. Pharynx: Oropharynx is clear. Eyes: Conjunctiva/sclera: Conjunctivae normal. Pupils: Pupils are equal, round, and reactive to light. Cardiovascular: Rate and Rhythm: Normal rate and regular rhythm. Pulmonary: Effort: Pulmonary effort is normal. No respiratory distress. Breath sounds: Normal breath sounds. No decreased breath sounds, wheezing or rhonchi. Comments: Dry cough noted Skin: General: Skin is warm and dry. Neurological: General: No focal deficit present. Mental Status: She is alert and oriented to person, place, and time. Gait: Gait normal. Psychiatric: Mood and Affect: Mood normal. Behavior: Behavior normal. Diagnostic Data CT Chest 04/15/23 IMPRESSION: Bilateral indeterminate pulmonary nodules. Several of the larger nodules demonstrate tiny surrounding nodules/perilymphatic studding, which is nonspecific but can be seen in the setting of granulomatous processes (i.e. histoplasmosis, sarcoidosis, etc). Mild lower mediastinal and right hilar lymphadenopathy, likely related to similar process. A follow-up chest CT in 3 months is suggested. Incidental ovoid 2.3 cm left breast mass, statistically likely benign such as cyst or fibroadenoma. Recommend referral to [facility]/breast ultrasound for further characterization. ACTIONABLE RESULT: FOLLOW-UP Acuity: Actionable Findings: Thoracic-Lung nodules Routing code: RI_[id number] Recommendation: CT Chest WO IVCON Time Frame: Additional evaluation as described in the impression COMMUNICATION: Results will be communicated with the ordering provider via [employer] staff message or phone message by Imaging Support Services within 2 business days of report finalization. --END OF FINDING-- I have personally reviewed and confirmed the imaging findings. No textual results found for the specified procedure(s). I have personally visualized, reviewed and confirmed the findings on pulmonary function testing. Impression / Recommendations To optimize physician communication via the electronic health record, the Impression & Recommendations section has been placed at the beginning of this note. Lul Carranza APRN.CNP Pulmonary & Critical Care Medicine [facility] [place] April 17, 2023 9:17 AM CC: Jack Alvarez [address] [place] [address] No primary care provider on file. documented in this encounterRegency Hospital [facility]11-26-2023 NoteHNO ID: [id number] Author: Velma Farooq RT(R) Service: Radiology Author Type: Technologist Type: Progress Notes Filed: 04/15/2023 9:31 AM Note Text: Radiology Service Progress Note PATIENT NAME: Matt Calabrese DATE OF SERVICE: April 15, 2023 TIME: 9:31 AM PATIENT IDENTITY VERIFICATION COMPLETED USING TWO (2) IDENTIFIERS: Name and Date of confirmed by patient verbally. FALL SCREENING: Has the patient had 2 falls in the last year or 1 fall with injury or currently using an Ambulatory Assistive Device (Walker, Cane, Wheelchair, Crutches, etc.)? No PATIENT GENDER DATA: Female. status: : No status: N/A PATIENT RELEVANT IMPLANT DATA REVIEWED: Yes RADIOLOGY DEPARTMENT: CT; Exam(s) Completed: Chest PERIPHERAL IV DATA: Not applicable SIGNED BY: RT Lucrecia(R) April 15, 2023 9:31 AMSelect [facility] Specialty Hospital - [id number] Miscellaneous Notes* [facility] - [facility] Tech - 04/15/2023 9:30 AM EST Radiology Service Progress Note PATIENT NAME: Matt Calabrese DATE OF SERVICE: April 15, 2023 TIME: 9:28 AM PATIENT IDENTITY VERIFICATION COMPLETED USING TWO (2) IDENTIFIERS: Name and Date of confirmedby patient verbally and Name and Date of confirmed by identification band. FALL SCREENING: Has the patient had 2 falls in the last year or 1 fall with injury or currently using an Ambulatory Assistive Device (Walker, Cane, Wheelchair, Crutches, etc.)? No PATIENT GENDER DATA: Female. status: : No status: NO. PATIENT RELEVANT IMPLANT DATA REVIEWED: Yes RADIOLOGY DEPARTMENT: CT; Exam(s) Completed: Chest PERIPHERAL IV DATA: Not applicable SIGNED BY: Michael Benedict April 15, 2023 9:28 AM documented in this encounterRegency Hospital [facility]11-15-2023 History of Present illness Narrative* Jack Alvarez MD - 04/04/2023 11:00 AM EST Images from the original note were not included. [facility] OFFICE VISIT CONSULT 04/04/2023 Patient Name: Matt Calabrese PRIMARY CARE PHYSICIAN: No primary care provider on file. REASON FOR CONSULT: Fluid in the lung REFERRING PHYSICIAN: Self My final recommendations will be communicated to the requesting health care provider by way of the shared medical record for internal providers or by letter via US mail for external providers. ASSESSMENT/PLAN Shortness of breath and Cough: History of Asthma. Recent Pneumonia - Will get total IgE, IgE specific for aspergillus along with RAST testing. - Will test of allergy against molds. Given mold exposure. - Obtain spirometry - Will start on ICS after spirometry. - Continue Albuterol as needed History of pulmonary nodules: Was told she may have histoplasmosis: Asymptomatic - Will obtain CT chest wo contrast to follow up Lifelong non-smoker Obesity - Will discuss weight loss and possible sleep apnea testing next visit, Next visit:Immunization, weight management and sleep apnea Follow Up: In a month Patient instructed to contact me in case of symptoms, imaging and lab results. I discussed the plan in detail with the patient and the patient verbalizes understanding and is in agreement. Jack Alvarez MD, Staff, [facility] [place] CHIEF COMPLAINT: Shortness of breath and Cough HISTORY OF PRESENT ILLNESS: Matt Calabrese is a 22 year old female, with PMHx of asthma, patient ishere to establish care. Moved from [place] over a year ago. Use to see a roll bucker in [place]. Has a childhood history of asthma, use to be on Advair which she has not taken since a year. Patient complains of shortness of breath and wheezing especially while exertion. Also c/o feeling of secretions getting struck in the back of her throat. Symptoms are worse in the night. Has had reduced exercise tolerance since she was a child. Recently was seen in the ED on 02/26 for complains of cough which was going on for 3 days along with dyspnea and clear sputum production. Prior to that patient was started on doxycycline for possible pneumonia which did not improve her symptoms. Was given another course of antibiotics and prednisone by her PCP, CXR done by PCP showed pneumonia. Patient denies allergies. Although states that she has mold growing in her apartment. 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 Recently changed a job to third shift Denies any problems with ADLs. No chest tightness, no fever or chills No hospitalizations for asthma, no intubations. Recent Prednisone Prescription last month [facility] Dyspnea Scale: 0. Not troubled by breathlessness except on strenuous exercise Short of breath when hurrying or walking up a slight hill Walks slower than contemporaries on the level because of breathlessness, or has to stop for breath when walking at own pace Stops for breath after about 100 m or after a few minutes on the level Too breathless to leave the house, or breathless when dressing or undressing Social and Personal History: - Lives: Apartment has mold - Smoking:Lifetime non-smoker - Alcohol:None - Pet:None Work, Travel and Exposure History: - Mold in the house, visiable Other Environmental Exposure History: Pets: No birds Asbestos: No significant exposure Silica: No significant exposure Fentress: No significant exposure Hot tub: No significant exposure Fumes: No significant exposure Metal dust: No significant exposure Beryllium: No significant exposure Dust: No significant exposure Medications: No relevant exposure for interstitial lung diseases No family history on file. Social History Tobacco Use Smoking status: Never Passive exposure: Never Smokeless tobacco: Never ALLERGIES ALLERGIES Allergen Reactions Amoxicillin Hives Clarithromycin Hives Penicillins Hives Trazodone Other: See Comments Suicidal ideations Zithromax [Azithrom* Hives CURRENT OUTPATIENT MEDICATIONS albuterol HFA (PROVENTIL HFA, VENTOLIN HFA) 90 mcg/actuation inhaler Inhale 2 Puffs as instructed every 4 hours as needed. albuterol (PROVENTIL) 2.5 mg /3 mL (0.083 %) nebulizer solution As Directed REVIEW OF SYSTEMS The remainder of review of systems was negative. PHYSICAL EXAM BP: 110/76 Temp: 36.8 C (98.2 F) Temp src: Oral Pulse: 94 Resp: 18 SpO2: 98 % General appearance: Well appearing, alert, in no acute distress and Obese Eyes: PERRLA Nose/Sinuses: Nares normal. Septum midline. Mucosa normal. No drainage or sinus tenderness. Oropharynx: Lips, mucosa, and tongue normal, teeth and gums normal, oropharynx normal Neck: no palpable masses Lungs: Lungs clear to auscultation. No wheezing, rhonchi, rales Heart: RRR without murmur, gallop, or rubs. Abdomen: Abdomen soft, non-tender. Bowel sounds normal. No masses, organomegaly Extremities: Normal, Warm, No cyanosis, no clubbing, No edema, and Nontender Neuro: no focal weakness Psychiatry: Alert, Oriented X 3 DATA Diagnostic tests reviewed for today's visit, including films and specimens, personally reviewed by me: Most recent labs and imaging results. XR CHEST 2V FRONTAL/LAT Result Date: 02/26/2023 IMPRESSION: Overall unremarkable exam with no definite acute radiographic abnormality. Ingot Header: WILL Transcribe Date/Time: Feb 26 2023 8:54P Dictated by : SHIV LYNCH MD This examination was interpreted and the report reviewed and electronically signed by: SHIV LYNCH MD on Feb 26 2023 8:55PM EST No results found. Recent Results (from the past 8760 hour(s)) ECG COMPLETE Collection Time: 02/26/23 8:23 PM Result Value Ventricular Rate 87 Atrial Rate 87 P-R Interval 166 QRS Duration 76 QT Interval 366 QTC Calculation (Bazett) 440 Calculated P Sterling 21 Calculated R Sterling 38 Calculated T Sterling 29 Impression NORMAL SINUS RHYTHM NORMAL ECG NO PREVIOUS ECGS AVAILABLE Confirmed by MD NIKITA, MICHELE ([id number]) on 03/06/2023 11:17:30 PM No results found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 Appointment Type:PC OV Appointment Date:05/01/2024 08:00:00 PM Scheduled Provider: Location:[facility] Appointment Type:SL C-PAP (Continuous Positive Airway Pre Appointment Date:05/02/2024 03:00:00 PM Scheduled Provider:JACK PRIEST Location:[facility] Appointment Type:PC OV Appointment Date:05/05/2024 09:30:00 AM Scheduled Provider: Location:[facility] Appointment Type:NUT Diet Visit Individual Appointment Date:06/09/2024 09:00:00 AM Scheduled Provider:JACK PRIEST Location:[facility] Appointment Type:[facility] Evaluation + Plan note Future Appointments Appointment Date:05/01/2024 08:00:00 PM Scheduled Provider: Location:[facility] Appointment Type:SL C-PAP (Continuous Positive Airway Pre Appointment Date:05/02/2024 03:00:00 PM Scheduled Provider:JACK PRIEST Location:[facility] Appointment Type: OV Appointment Date:05/05/2024 09:30:00 AM Scheduled Provider: Location:[facility] Appointment Type:NUT Diet Visit Individual Appointment Date:06/09/2024 09:00:00 AM Scheduled Provider:JACK PRIEST Location:[facility] Appointment Type: OV Appointment Date:07/16/2024 04:00:00 PM Scheduled Provider:JACK PRIEST Location:[facility] Appointment Type:[facility] Evaluation + Plan note Future Appointments Appointment Date:05/12/2024 03:00:00 PM Scheduled Provider:ARIEL WHITE MD Location: [facility] Appointment Type: OV Appointment Date:05/22/2024 08:00:00 PM Scheduled Provider: Location:[facility] Appointment Type:SL C-PAP (Continuous Positive Airway Pre Appointment Date:05/26/2024 08:00:00 AM Scheduled Provider: Location:[facility] Appointment Type:NUT Diet Visit Individual Appointment Date:06/09/2024 09:00:00 AM Scheduled Provider:JACK PRIEST Location:[facility] Appointment Type: OV Appointment Date:07/16/2024 04:00:00 PM Scheduled Provider:JACK PRIEST Location:[facility] Appointment Type: OV Future Scheduled Tests Laboratory* Urine Culture 05/02/24 [facility] Evaluation + Plan note Future Appointments Appointment Date:05/12/2024 03:00:00 PM Scheduled Provider:ARIEL WHITE MD [facility] Appointment Type: OV Appointment Date:05/22/2024 08:00:00 PM Scheduled Provider: Location:[facility] Appointment Type:SL C-PAP (Continuous Positive Airway Pre Appointment Date:05/26/2024 08:00:00 AM Scheduled Provider: Location:[facility] Appointment Type:NUT Diet Visit Individual Appointment Date:06/09/2024 09:00:00 AM Scheduled Provider:JACK PRIEST Location:[facility] Appointment Type: OV Appointment Date:07/16/2024 04:00:00 PM Scheduled Provider:JACK PRIEST Location:[facility] Appointment Type:[facility] Evaluation + Plan note Future Appointments Appointment Date:05/19/2024 04:15:00 PM Scheduled Provider:ARIEL WHITE MD Location:[facility] Appointment Type: OV Appointment Date:05/22/2024 08:00:00 PM Scheduled Provider: Location:[facility] Appointment Type:SL C-PAP (Continuous Positive Airway Pre Appointment Date:05/26/2024 08:00:00 AM Scheduled Provider: Location:[facility] Appointment Type:NUT Diet Visit Individual Appointment Date:06/09/2024 09:00:00 AM Scheduled Provider:JACK PRIEST Location:[facility] Appointment Type: OV Appointment Date:07/16/2024 04:00:00 PM Scheduled Provider:JACK PRIEST Location:[facility] Appointment Type:[facility] Evaluation + Plan note Future Appointments Appointment Date:05/26/2024 08:00:00 AM Scheduled Provider: Location:[facility] Appointment Type:NUT Diet Visit Individual Appointment Date:06/02/2024 03:15:00 PM Scheduled Provider:ARIEL WHITE MD Location: [facility] Appointment Type: OV Post Op Appointment Date:06/09/2024 09:00:00 AM Scheduled Provider:JACK PRIEST Location:[facility] Appointment Type:PC OV Appointment Date:07/16/2024 04:00:00 PM Scheduled Provider:JACK PRIEST Location:[facility] Appointment Type:PC OV [facility] Evaluation + Plan note Future Appointments Appointment Date:06/02/2024 03:15:00 PM Scheduled Provider:ARIEL WHITE MD Location: [facility] Appointment Type: OV Post Op Appointment Date:06/09/2024 09:00:00 AM Scheduled Provider:JACK PRIEST Location:[facility] Appointment Type:PC OV Appointment Date:07/16/2024 04:00:00 PM Scheduled Provider:JACK PRIEST Location:[facility] Appointment Type:PC OV [facility] Evaluation + Plan note Future Appointments Appointment Date:07/16/2024 03:30:00 PM Scheduled Provider:JACK PRIEST Location:[facility] Appointment Type:PC OV Diagnostic Tests Pending * Hepatitis A Antibody IgG 06/11/24 * Insulin Antibodies 06/11/24 * JESSIE by IFA Screen 06/11/24 [facility] Evaluation + Plan note Future Appointments Appointment Date:07/16/2024 10:00:00 AM Scheduled Provider:ARIEL WHITE MD Location: [facility] Appointment Type: OV Appointment Date:07/16/2024 03:30:00 PM Scheduled Provider:JACK PRIEST Location:[facility] Appointment Type: OV Future Scheduled Tests Laboratory* A1C Hemoglobin 06/16/24 * Insulin Level Total 06/16/24 [facility] Evaluation + Plan note Future Appointments Appointment Date:09/10/2024 04:30:00 PM Scheduled Provider:JACK PRIEST Location:[facility] Appointment Type:PC OV Appointment Date:10/06/2024 09:30:00 AM Scheduled Provider: Location:[facility] Appointment Type:NUT Diet Visit Individual Future Scheduled Tests Laboratory* A1C Hemoglobin 06/16/24 * Insulin Level Total 06/16/24 [facility] Evaluation + Plan note Future Appointments Appointment Date:09/11/2024 01:00:00 PM Scheduled Provider:[place] [id number] Location:[facility] Appointment Type:PT [facility] Appointment Date:09/22/2024 01:00:00 PM Scheduled Provider:[place] [id number] Location:[facility] Appointment Type:PT [facility] Appointment Date:10/06/2024 09:30:00 AM Scheduled Provider: Location:[facility] Appointment Type:NUT Diet Visit Individual Appointment Date:10/15/2024 04:00:00 PM Scheduled Provider:JACK PRIEST Location:[facility] Appointment Type: OV [facility] Evaluation + Plan note Future Appointments Appointment Date:10/27/2024 01:30:00 PM Scheduled Provider: Location:[facility] Appointment Type:NUT Diet Visit Individual Appointment Date:10/28/2024 01:00:00 PM Scheduled Provider:[place] [id number] Location:[facility] Appointment Type:PT [facility] Appointment Date:11/26/2024 03:00:00 PM Scheduled Provider:JACK PRIEST Location:[facility] Appointment Type: OV [facility] Evaluation + Plan note Future Appointments Appointment Date:10/28/2024 01:00:00 PM Scheduled Provider:[place] [id number] Location:[facility] Appointment Type:[facility] Appointment Date:11/26/2024 03:00:00 PM Scheduled Provider:JACK PRIEST Location:[facility] Appointment Type:GEOR[facility] OV Appointment Date:02/09/2025 02:00:00 PM Scheduled Provider: Location:[facility] Appointment Type:NUT Diet Visit Individual [facility] evaluation noteNo assessment information available [facility] Work Phone: evaluation note* Diagnosis Onset Date Resolution Status Encounter for pre-employment health screening examination acute [facility] Work Phone: evaluation note* Diagnosis Onset Date Resolution Status Encounter for pre-employment health screening examination acute Contusion of left knee acute Left ankle sprain acute Sprain of left foot acute [facility] Work Phone: evaluation note* Diagnosis Onset Date Resolution Status Encounter for pre-employment health screening examination acute Contusion of left knee acute Left ankle sprain acute Sprain of left foot acute Left ankle sprain acute Left ankle sprain acute [facility] Work Phone: evaluation note* Diagnosis Onset Date Resolution Status Encounter for pre-employment health screening examination acute Contusion of left knee acute Left ankle sprain acute Sprain of left foot acute Left ankle sprain acute Left ankle sprain acute Left ankle sprain acute Sprain of left foot acute Left ankle sprain acute Left ankle sprain acute [facility] Work Phone: evaluation note* Diagnosis Onset Date Resolution Status Contusion of left knee acute Left ankle sprain acute Sprain of left foot acute Left ankle sprain acute Left ankle sprain acute Left ankle sprain acute Sprain of left foot acute Left ankle sprain acute Left ankle sprain acute Left ankle sprain acute Sprain of left foot acute Left ankle sprain acute Left ankle sprain acute Left ankle sprain acute [facility] Work Phone: Evaluation note* Diagnosis Onset Date Resolution Status Left ankle sprain acute Left ankle sprain acute Left ankle sprain acute Sprain of left foot acute Left ankle sprain acute Left ankle sprain acute Left ankle sprain acute Sprain of left foot acute Left ankle sprain acute Left ankle sprain acute Left ankle sprain acute Hematuria acute [facility] Work Phone: Evaluation note* Diagnosis Moderate persistent asthma without complication- Primary Unspecified asthma Shortness of breath [R06.02] Shortness of breath Obesity without serious comorbidity, unspecified classification, unspecified obesity type [E66.9] Lung nodules [R91.8] Other nonspecific abnormal finding of lung field Mold exposure [Z77.120] Contact with and (suspected) exposure to mold [facility] Diagnosis Moderate persistent asthma without complication Unspecified asthma [facility]* Diagnosis Lung nodule- Primary Solitary pulmonary nodule [facility]* Diagnosis Mass of left breast, unspecified quadrant Family history of breast cancer Family history of malignant neoplasm of breast [facility]* Diagnosis Breast pain- Primary Mastodynia Cyst of left breast Family history of breast cancer Family history of malignant neoplasm of breast [facility]* Diagnosis Lung nodules- Primary Other nonspecific abnormal finding of lung field Moderate persistent asthma without complication Unspecified asthma [facility]* Diagnosis Atypical chest pain- Primary Other chest pain [facility] Lung nodule- Primary Solitary pulmonary nodule [facility] Diagnosis Normal ENT exam- Primary Chronic recurrent sinusitis Unspecified sinusitis (chronic) [facility]* Diagnosis Foot pain, left- Primary Pain in limb Chronic pain of left ankle [facility]* Diagnosis Bilateral fibrocystic breast changes- Primary Cyst of left breast Breast pain Mastodynia Family history of breast cancer- mother in 30's , MGM, PGM Family history of malignant neoplasm of breast Excess weight Overweight [facility]* Diagnosis URI, acute- Primary Acute upper respiratory infections of unspecified site Acute cough [facility]* Diagnosis Atypical chest pain- Primary Other chest pain History of histoplasmosis Personal history of other infectious and parasitic disease Lung nodules Other nonspecific abnormal finding of lung field Irritable bowel syndrome with diarrhea Irritable bowel syndrome Migraine without status migrainosus, not intractable, unspecified migraine type Poor sleep 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 Fibromyalgia Mylagia and myositis, unspecified [facility]* Diagnosis 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 [facility] Diagnosis Dysphagia, unspecified type- Primary Irritable bowel syndrome with diarrhea Irritable bowel syndrome Nausea Nausea alone Abdominal bloating Flatulence, eructation, and gas pain documented [facility]* Diagnosis Onset Date Resolution Status Encounter for pre-employment health screening examination acute Left ankle sprain acute Strain of Achilles tendon ac [facility] Work Phone: Evaluation note* Diagnosis Onset Date Resolution Status Left ankle sprain acute Strain of Achilles tendon ac [facility] Work Phone: Evaluation note* Diagnosis Abdominal pain, unspecified abdominal location- Primary [facility]* Diagnosis Respiratory tract infection- Primary Other diseases of respiratory system, not elsewhere classified Vitamin D deficiency Unspecified vitamin D deficiency [facility] Diagnosis Lung nodule- Primary Solitary pulmonary nodule Lung nodules Other nonspecific abnormal finding of lung field [facility]* Diagnosis Vitamin D deficiency- Primary Unspecified vitamin D deficiency [facility]* Diagnosis Digital nerve laceration, finger, initial encounter- Primary Digital nerve laceration, finger, initial encounter [facility]* Diagnosis Digital nerve laceration, finger, initial encounter- Primary Digital nerve laceration, finger, initial encounter [facility]* Diagnosis Blister- Primary Other, multiple, and unspecified sites, blister, without mention of infection Digital nerve laceration, finger, initial encounter [facility]* Diagnosis Irritable bowel syndrome with diarrhea Irritable bowel syndrome Digital nerve laceration, finger, initial encounter [facility]* Diagnosis Allergic rhinitis due to animal hair and dander- Primary Allergic rhinitis due to animal (cat) (dog) hair and dander [facility]* Diagnosis Pain of right hip- Primary Pain of right hip [facility]* Diagnosis Nausea- Primary Nausea alone Diarrhea, unspecified type [facility] Nexplanon insertion- Primary Insertion of implantable subdermal contraceptive [facility]* Diagnosis Menorrhagia with regular cycle- Primary Excessive or frequent menstruation Encounter for counseling regarding contraception documented in this encounter [facility] note* Diagnosis Nausea Nausea alone documented in this encounter [facility] note* Diagnosis Blood clot in arm (HCC)- Primary Nexplanon in place Presence of subdermal contraceptive device [facility]* Diagnosis Blood clot in arm (HCC) [facility]* Diagnosis Class 3 severe obesity without serious comorbidity with body mass index (BMI) of 40.0 to 44.9 in adult, unspecified obesity type (HCC)- Primary Macromastia Hypertrophy of breast Chronic bilateral low back pain without sciatica Neck pain Cervicalgia Intertrigo Other specified erythematous condition documented in this encounter [facility] note* Diagnosis Dysphagia, unspecified type- Primary Abdominal bloating Flatulence, eructation, and gas pain [facility]* Diagnosis Midline thoracic back pain, unspecified chronicity- Primary Lumbar pain Lumbago Lumbar spondylosis Lumbosacral spondylosis without myelopathy [facility]* Diagnosis Pre-op evaluation- Primary Preoperative examination, unspecified Morbid obesity (HCC) Morbid obesity Other migraine without status migrainosus, not intractable Borderline personality disorder (HCC) Borderline personality disorder Lung nodules Other nonspecific abnormal finding of lung field Blood clot in arm (HCC) Macromastia Hypertrophy of breast Chronic bilateral low back pain without sciatica Neck pain Cervicalgia Intertrigo Other specified erythematous condition * Assessment & Plan Note - Enrico Pierre APRN.CAT[employer] WORKER - 01/18/2024 9:39 AM EDT Associated Problem(s): Blood clot in arm (HCC) Assessment: H/o superficial clot in arm s/p nexplanon placement. Work up negative for facotr V leiden. Denies history of DVT/PE. Denies FH of clotting disorders . * Assessment & Plan Note - Enrico Pierre APRN.CNP - 01/18/2024 9:36 AM EDT Associated Problem(s): Lung nodules Assessment: H/o histoplasmosis. Follows with pulmonary. 100% on RA. Denies SOB. CT 04/16/23: Impression IMPRESSION: Bilateral indeterminate pulmonary nodules. Several of the larger nodules demonstrate tiny surrounding nodules/perilymphatic studding, which is nonspecific but can be seen in the setting of granulomatous processes (i.e. histoplasmosis, sarcoidosis, etc). Mild lower mediastinal and right hilar lymphadenopathy, likely related to similar process. A follow-up chest CT in 3 months is suggested. Incidental ovoid 2.3 cm left breast mass, statistically likely benign such as cyst or fibroadenoma. [facility]/breast ultrasound for further characterization. * Assessment & Plan Note - Enrico Pierre APRN.CNP - 01/18/2024 9:35 AM EDT Associated Problem(s): Borderline personality disorder (HCC) Assessment: Stable on rx. Follows with psych. Denies thoughts of self harm or harming others. * Assessment & Plan Note - Enrico Pierre APRN.CNP - 01/18/2024 9:34 AM EDT Associated Problem(s): Migraine headache Assessment: chronic unchanged- treated with tylenol and NSAID's. * Assessment & Plan Note - Enrico Pierre APRN.CNP - 01/18/2024 9:20 AM EDT Associated Problem(s): Morbid obesity (HCC) Assessment: Body mass index is 40.77 kg/m . [facility]* Diagnosis Pre-op evaluation- Primary Preoperative examination, unspecified Morbid obesity (HCC) Morbid obesity Other migraine without status migrainosus, not intractable Borderline personality disorder (HCC) Borderline personality disorder Lung nodules Other nonspecific abnormal finding of lung field Blood clot in arm (HCC) Macromastia- Primary Hypertrophy of breast Chronic bilateral low back pain without sciatica Neck pain Cervicalgia Intertrigo Other specified erythematous condition Class 3 severe obesity without serious comorbidity with body mass index (BMI) of 40.0 to 44.9 in adult, unspecified obesity type (HCC) Pre-op evaluation Preoperative examination, unspecified Macromastia Hypertrophy of breast Chronic bilateral low back pain without sciatica Neck pain Cervicalgia Intertrigo Other specified erythematous condition documented in this encounter [facility] note* Diagnosis Acute post-operative pain- Primary Macromastia Hypertrophy of breast Chronic bilateral low back pain without sciatica Neck pain Cervicalgia Intertrigo Other specified erythematous condition Pre-op evaluation- Primary Preoperative examination, unspecified Morbid obesity (HCC) Morbid obesity Other migraine without status migrainosus, not intractable Borderline personality disorder (HCC) Borderline personality disorder Lung nodules Other nonspecific abnormal finding of lung field Blood clot in arm (HCC) documented in this encounter [facility] note* Diagnosis Pre-op evaluation- Primary Preoperative examination, unspecified Morbid obesity (HCC) Morbid obesity Other migraine without status migrainosus, not intractable Borderline personality disorder (HCC) Borderline personality disorder Lung nodules Other nonspecific abnormal finding of lung field Blood clot in arm (HCC) Post-operative state- Primary Other postprocedural status Macromastia Hypertrophy of breast documented in this encounter [facility] note* Diagnosis Pain of right hip Pre-op evaluation- Primary Preoperative examination, unspecified Morbid obesity (HCC) Morbid obesity Other migraine without status migrainosus, not intractable Borderline personality disorder (HCC) Borderline personality disorder Lung nodules Other nonspecific abnormal finding of lung field Blood clot in arm (HCC) documented in this encounter [facility] note* Diagnosis Dysphagia, unspecified type Nausea Nausea alone Abdominal bloating Flatulence, eructation, and gas pain Pre-op evaluation- Primary Preoperative examination, unspecified Morbid obesity (HCC) Morbid obesity Other migraine without status migrainosus, not intractable Borderline personality disorder (HCC) Borderline personality disorder Lung nodules Other nonspecific abnormal finding of lung field Blood clot in arm (HCC) [facility] Diagnosis Pre-op evaluation- Primary Preoperative examination, unspecified Morbid obesity (HCC) Morbid obesity Other migraine without status migrainosus, not intractable Borderline personality disorder (HCC) Borderline personality disorder Lung nodules Other nonspecific abnormal finding of lung field Blood clot in arm (HCC) Incisional irritation, initial encounter- Primary [facility] Diagnosis Pre-op evaluation- Primary Preoperative examination, unspecified Morbid obesity (HCC) Morbid obesity Other migraine without status migrainosus, not intractable Borderline personality disorder (HCC) Borderline personality disorder Lung nodules Other nonspecific abnormal finding of lung field Blood clot in arm (HCC) Near syncope- Primary Syncope and collapse [facility]* Diagnosis Pre-op evaluation- Primary Preoperative examination, unspecified Morbid obesity (HCC) Morbid obesity Other migraine without status migrainosus, not intractable Borderline personality disorder (HCC) Borderline personality disorder Lung nodules Other nonspecific abnormal finding of lung field Blood clot in arm (HCC) Post-operative state- Primary Other postprocedural status [facility] Diagnosis Pre-op evaluation- Primary Preoperative examination, unspecified Morbid obesity (HCC) Morbid obesity Other migraine without status migrainosus, not intractable Borderline personality disorder (HCC) Borderline personality disorder Lung nodules Other nonspecific abnormal finding of lung field Blood clot in arm (HCC) Chronic low back pain without sciatica, unspecified back pain laterality- Primary Thoracic disc herniation 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 arthropathy Spondylosis of unspecified site without mention of myelopathy [facility] Diagnosis Pre-op evaluation- Primary Preoperative examination, unspecified Morbid obesity (HCC) Morbid obesity Other migraine without status migrainosus, not intractable Borderline personality disorder (HCC) Borderline personality disorder Lung nodules Other nonspecific abnormal finding of lung field Blood clot in arm (HCC) Dysphagia, unspecified type- Primary [facility]* Diagnosis Pre-op evaluation- Primary Preoperative examination, unspecified Morbid obesity (HCC) Morbid obesity Other migraine without status migrainosus, not intractable Borderline personality disorder (HCC) Borderline personality disorder Lung nodules Other nonspecific abnormal finding of lung field Blood clot in arm (HCC) Menorrhagia with irregular cycle- Primary Excessive or frequent menstruation Superficial thrombophlebitis of right upper extremity [facility]* Diagnosis Pre-op evaluation- Primary Preoperative examination, unspecified Morbid obesity (HCC) Morbid obesity Other migraine without status migrainosus, not intractable Borderline personality disorder (HCC) Borderline personality disorder Lung nodules Other nonspecific abnormal finding of lung field Blood clot in arm (HCC) Sore throat- Primary Acute pharyngitis [facility]* Diagnosis Pre-op evaluation- Primary Preoperative examination, unspecified Morbid obesity (HCC) Morbid obesity Other migraine without status migrainosus, not intractable Borderline personality disorder (HCC) Borderline personality disorder Lung nodules Other nonspecific abnormal finding of lung field Blood clot in arm (HCC) Dysphagia, unspecified type- Primary [facility]* Diagnosis Pre-op evaluation- Primary Preoperative examination, unspecified Morbid obesity (HCC) Morbid obesity Other migraine without status migrainosus, not intractable Borderline personality disorder (HCC) Borderline personality disorder Lung nodules Other nonspecific abnormal finding of lung field Blood clot in arm (HCC) Dysphagia, unspecified type [facility]* Diagnosis Pre-op evaluation- Primary Preoperative examination, unspecified Morbid obesity (HCC) Morbid obesity Other migraine without status migrainosus, not intractable Borderline personality disorder (HCC) Borderline personality disorder Lung nodules Other nonspecific abnormal finding of lung field Blood clot in arm (HCC) Lung nodules Other nonspecific abnormal finding of lung field [facility] Diagnosis Pre-op evaluation- Primary Preoperative examination, unspecified Morbid obesity (HCC) Morbid obesity Other migraine without status migrainosus, not intractable Borderline personality disorder (HCC) Borderline personality disorder Lung nodules Other nonspecific abnormal finding of lung field Blood clot in arm (HCC) Menorrhagia with irregular cycle- Primary Excessive or frequent menstruation H/O superficial phlebitis Personal history of other diseases of circulatory system [facility]* Diagnosis Pre-op evaluation- Primary Preoperative examination, unspecified Morbid obesity (HCC) Morbid obesity Other migraine without status migrainosus, not intractable Borderline personality disorder (HCC) Borderline personality disorder Lung nodules Other nonspecific abnormal finding of lung field Blood clot in arm (HCC) Lung nodules- Primary Other nonspecific abnormal finding of lung field Chronic cough Cough [facility]* Diagnosis Menorrhagia with regular cycle- Primary Excessive or frequent menstruation Cyst of peritoneal cavity [facility]* Diagnosis 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 [facility] Diagnosis Family history of breast cancer Family history of malignant neoplasm of breast documented in this encounter [facility] note* Diagnosis Pre-op evaluation- Primary Preoperative examination, unspecified Morbid obesity (HCC) Morbid obesity Other migraine without status migrainosus, not intractable Borderline personality disorder (HCC) Borderline personality disorder Lung nodules Other nonspecific abnormal finding of lung field Blood clot in arm (HCC) Lung nodules- Primary Other nonspecific abnormal finding of lung field documented in this encounter [facility] note* Diagnosis Pre-op evaluation- Primary Preoperative examination, unspecified Morbid obesity (HCC) Morbid obesity Other migraine without status migrainosus, not intractable Borderline personality disorder (HCC) Borderline personality disorder Lung nodules Other nonspecific abnormal finding of lung field Blood clot in arm (HCC) Lung nodules- Primary Other nonspecific abnormal finding of lung field Abnormal chest CT Nonspecific (abnormal) findings on radiological and other examination of other intrathoracic organs Thoracic lymphadenopathy Enlargement of lymph nodes documented in this encounter [facility] note* Diagnosis Pre-op evaluation- Primary Preoperative examination, unspecified Morbid obesity (HCC) Morbid obesity Other migraine without status migrainosus, not intractable Borderline personality disorder (HCC) Borderline personality disorder Lung nodules Other nonspecific abnormal finding of lung field Blood clot in arm (HCC) Pre-op testing- Primary Preoperative examination, unspecified [facility]* Diagnosis Pre-op evaluation- Primary Preoperative examination, unspecified Morbid obesity (HCC) Morbid obesity Other migraine without status migrainosus, not intractable Borderline personality disorder (HCC) Borderline personality disorder Lung nodules Other nonspecific abnormal finding of lung field Blood clot in arm (HCC) Histoplasmosis- Primary Histoplasmosis, unspecified without mention of manifestation Thoracic lymphadenopathy Enlargement of lymph nodes Chronic cough Cough Pulmonary nodules Other nonspecific abnormal finding of lung field Liver disease Unspecified disorder of liver Obesity, Class III, BMI 40-49.9 (morbid obesity) (HCC) Morbid obesity documented in this encounter [facility] note* Diagnosis Pre-op evaluation- Primary Preoperative examination, unspecified Morbid obesity (HCC) Morbid obesity Other migraine without status migrainosus, not intractable Borderline personality disorder (HCC) Borderline personality disorder Lung nodules Other nonspecific abnormal finding of lung field Blood clot in arm (HCC) Histoplasmosis- Primary Histoplasmosis, unspecified without mention of manifestation Medication monitoring encounter Encounter for therapeutic drug monitoring [facility]* Diagnosis Pre-op evaluation- Primary Preoperative examination, unspecified Morbid obesity (HCC) Morbid obesity Other migraine without status migrainosus, not intractable Borderline personality disorder (HCC) Borderline personality disorder Lung nodules Other nonspecific abnormal finding of lung field Blood clot in arm (HCC) 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 Histoplasmosis Histoplasmosis, unspecified without mention of manifestation Fever, unspecified Drug interaction Unspecified adverse effect of unspecified drug, medicinal and biological substance [facility]* Diagnosis Pre-op evaluation- Primary Preoperative examination, unspecified Morbid obesity (HCC) Morbid obesity Other migraine without status migrainosus, not intractable Borderline personality disorder (HCC) Borderline personality disorder Lung nodules Other nonspecific abnormal finding of lung field Blood clot in arm (HCC) Necrotizing granulomatous inflammation (HCC)- Primary [facility]* Diagnosis Pre-op evaluation- Primary Preoperative examination, unspecified Morbid obesity (HCC) Morbid obesity Other migraine without status migrainosus, not intractable Borderline personality disorder (HCC) Borderline personality disorder Lung nodules Other nonspecific abnormal finding of lung field Blood clot in arm (HCC) Histoplasmosis- Primary Histoplasmosis, unspecified without mention of manifestation Lymphadenopathy, thoracic Enlargement of lymph nodes Recurrent pneumonia Pneumonia, organism unspecified Liver disease Unspecified disorder of liver [facility]* Diagnosis Pre-op evaluation- Primary Preoperative examination, unspecified Morbid obesity (HCC) Morbid obesity Other migraine without status migrainosus, not intractable Borderline personality disorder (HCC) Borderline personality disorder Lung nodules Other nonspecific abnormal finding of lung field Blood clot in arm (HCC) Histoplasmosis- Primary Histoplasmosis, unspecified without mention of manifestation [facility]* Diagnosis Pre-op evaluation- Primary Preoperative examination, unspecified Morbid obesity (HCC) Morbid obesity Other migraine without status migrainosus, not intractable Borderline personality disorder (HCC) Borderline personality disorder Lung nodules Other nonspecific abnormal finding of lung field Blood clot in arm (HCC) Necrotizing granulomatous inflammation (HCC)- Primary Acute cough [facility]* Diagnosis Pre-op evaluation- Primary Preoperative examination, unspecified Morbid obesity (HCC) Morbid obesity Other migraine without status migrainosus, not intractable Borderline personality disorder (HCC) Borderline personality disorder Lung nodules Other nonspecific abnormal finding of lung field Blood clot in arm (HCC) Prediabetes- Primary Other abnormal glucose Class 2 severe obesity due to excess calories with serious comorbidity and body mass index (BMI) of 39.0 to 39.9 in adult (HCC) [facility]* Diagnosis Pre-op evaluation- Primary Preoperative examination, unspecified Morbid obesity (HCC) Morbid obesity Other migraine without status migrainosus, not intractable Borderline personality disorder (HCC) Borderline personality disorder Lung nodules Other nonspecific abnormal finding of lung field Blood clot in arm (HCC) Prediabetes Other abnormal glucose documented in this encounter [facility] note* Diagnosis Pre-op evaluation- Primary Preoperative examination, unspecified Morbid obesity (HCC) Morbid obesity Other migraine without status migrainosus, not intractable Borderline personality disorder (HCC) Borderline personality disorder Lung nodules Other nonspecific abnormal finding of lung field Blood clot in arm (HCC) Class 2 severe obesity due to excess calories with serious comorbidity and body mass index (BMI) of 39.0 to 39.9 in adult (HCC)- Primary Prediabetes Other abnormal glucose documented in this encounter [facility] note* Diagnosis Pre-op evaluation- Primary Preoperative examination, unspecified Morbid obesity (HCC) Morbid obesity Other migraine without status migrainosus, not intractable Borderline personality disorder (HCC) Borderline personality disorder Lung nodules Other nonspecific abnormal finding of lung field Blood clot in arm (HCC) Necrotizing granulomatous inflammation (HCC)- Primary Histoplasmosis Histoplasmosis, unspecified without mention of manifestation Chronic cough Cough documented in this encounter [facility] course Narrative No data available for this section [facility] Discharge instructions No data available for this section [facility] Progress note No data available for this section [facility] Reason for referral (narrative)* Outpatient Procedure (Routine) - Authorized Specialty Diagnoses / Procedures Referred By Elijah t Referred To Contact [facility] Diagnoses Moderate persistent asthma without complication Procedures NITRIC OXIDE, EXHALED NITRIC OXIDE GAS DETERMINATION Lul Carranza, VALARIE.CATHEAD WORKER [address] [place] [address] Respiratory [place] [address] [place] [address] Referral ID Status Reason Start Date Expiration Date Visits Requested Visits Authorized [id number] Authorized Auto-Generat ed Referral 3 05/16/2024 1 1 * Outpatient Procedure (Routine) - Authorized Specialty Diagnoses / Procedures Referred By Contac t Referred [facility] Diagnoses Moderate persistent asthma without complication Procedures LUNG DIFFUSION CAPACITY (DLCO) DIFFUSING CAPACITY Lul Carranza APRN.CNP [address] [id number] [place] [id number] Referral ID Status Reason Start Date Expiration Date Visits Requested Visits Authorized [id number] Authorized Auto-Generat ed Referral 3 05/16/2024 1 1 [facility] for referral (narrative)* Outpatient Procedure (Routine) - Authorized Specialty Diagnoses / Procedures Referred By Contac t Referred To Contact [facility] Diagnoses Atypical chest pain Procedures ECHO ECHO TTHRC R-T 2D W/WOM-MODE COMPL SPEC&COLR D Anshul Fernandez PA-C [address] [address] [facility] V[facility] [place] [address] [place] [id number] Referral ID Status Reason Start Date Expiration Date Visits Requested Visits Authorized [id number] Authorized Auto-Generat ed Referral 06/25/2023 06/24/2024 1 1 [facility] for referral (narrative)* Diagnostic Procedure Only (Urgent) - Closed Specialty Diagnoses / Procedures Referred By Contac t Referred To Contact XR IMAGING Diagnoses Pain of right hip Procedures XR HIP GENERAL 3V PELV/AP/LAT RIGHT RADEX HIP UNILATERAL WITH PELVIS 2-3 VIEWS Rebel Sneed, PHARMACY CLERK.CATHEAD WORKER [address] [place] [address] [place] [phone] Referral ID Status Reason Start Date Expiration Date V isits Requested Visits Authorized [id number] Closed Auto-Generate d Referral 11/05/2023 12/04/2024 1 1 [facility] for referral (narrative)* Diagnostic Procedure Only (Routine) - Additional Clinical Info Needed Specialty Diagnoses / Procedures Referred By Contac t Referred To Contact [facility] Diagnoses Nausea Procedures NM GASTRIC EMPTYING SOLID GASTRIC EMPTYING STUDY Mary Murillo PA-C [address] [phone] [facility] [address] [place] [address] Referral ID Status Reason Start Date Expiration Date Visits Requested Visits Authorized [id number] Additional Clinical Info Needed Auto-Generat ed Referral 11/20/2023 12/19/2024 1 1 [facility] for referral (narrative)* Outpatient Procedure (Routine) - Authorized Specialty Diagnoses / Procedures Referred By Elijah t Referred To Contact [facility] Diagnoses Nexplanon insertion Encounter for surveillance of implantable subdermal contraceptive Procedures NEXPLANON INSERTION ETONOGESTREL IMPLANT SYSTEM INSERT DRUG IMPLANT DEVICE REMOVAL NON-BIODEGRADABLE DRUG DELIVERY IMPLANT Juliet Corey APRN.CNP [address] [place] [place] [address] [facility] [address] [place] [address] Referral ID Status Reason Start Date Expiration Date Visits Requested Visits Authorized [id number] Authorized Auto-Generat ed Referral 12/07/2023 05/20/2024 2 2 [facility] for referral (narrative)* Outpatient Procedure (Routine) - Closed Specialty Diagnoses / Procedures Referred By Contac t Referred To Contact [facility] Diagnoses Menorrhagia with regular cycle Procedures NEXPLANON INSERTION ETONOGESTREL IMPLANT SYSTEM INSERT DRUG IMPLANT DEVICE Marilyn Piña APRN.CNM [address] [place] [address] [facility] [address] [place] [address] Referral ID Status Reason Start Date Expiration Date V isits Requested Visits Authorized [id number] Closed Auto-Generate d Referral 12/03/2023 12/02/2024 1 1 * Diagnostic Procedure Only (Routine) - Authorized Specialty Diagnoses / Procedures Referred By Elijah t Referred To Contact [facility] Diagnoses Menorrhagia with regular cycle Procedures PELVIC US WHI US PELVIC NONOBSTETRIC REAL-TIME IMAGE COMPLETE Marilyn Piña APRN.CNM [address] [place] [address] [address] Referral ID Status Reason Start Date Expiration Date Visits Requested Visits Authorized [id number] Authorized Auto-Generat ed Referral 12/03/2023 12/02/2024 1 1 [facility] for referral (narrative)* Diagnostic Procedure Only (Routine) - Closed Specialty Diagnoses / Procedures Referred By Contac t Referred To Contact [facility] Diagnoses Nausea Procedures NM GASTRIC EMPTYING SOLID GASTRIC EMPTYING STUDY Mary Murillo PA-C [address] [place] [address] [facility] [address] [place] [address] Referral ID Status Reason Start Date Expiration Date V isits Requested Visits Authorized [id number] Closed Auto-Generate d Referral 11/21/2023 01/05/2024 1 1 [facility] for referral (narrative)* Outpatient Procedure (Routine) - Closed Specialty Diagnoses / Procedures Referred By Contac t Referred To Contact [facility] [place] Diagnoses Blood clot in arm (HCC) Procedures US ARM VEIN DVT UNL VAS LAB DUP-SCAN XTR VEINS UNILATERAL/LIMITED STUDY Marilyn Piña APRN.CNM [address] [place] [address] [facility] [address] [place], [place] [id number] Referral ID Status Reason Start Date Expiration Date V isits Requested Visits Authorized [id number] Closed Auto-Generate d Referral 12/25/2023 12/24/2024 1 1 [facility] for referral (narrative)* Outpatient Procedure (Routine) - New Request Specialty Diagnoses / Procedures Referred By Contac t Referred To Contact [facility] Diagnoses Dysphagia, unspecified type Procedures MANOMETRY ESOPHAGEAL ESOPHAGEAL MOTILITY STUDY W/INTERP&RPT Mary Murillo PA-C [address] [place] [phone] [facility] Disease [place] [id number] Referral ID Status Reason Start Date Expiration Date Visits Requested Visits Authorized [id number] New Request Auto-Generat ed Referral 01/01/2024 12/31/2024 1 1 [facility] for referral (narrative)* Diagnostic Procedure Only (Urgent) - Closed Specialty Diagnoses / Procedures Referred By Contac t Referred To Contact XR IMAGING Diagnoses Pain of right hip Procedures XR HIP GENERAL 3V PELV/AP/LAT RIGHT RADEX HIP UNILATERAL WITH PELVIS 2-3 VIEWS Rebel Sneed, PHARMACY CLERK.CATHEAD WORKER [address] [place] [address] [place] [address] Referral ID Status Reason Start Date Expiration Date V isits Requested Visits Authorized [id number] Closed Auto-Generate d Referral 11/05/2023 12/04/2024 1 1 [facility] for referral (narrative)* Outpatient Procedure (Routine) - Closed Specialty Diagnoses / Procedures Referred By Elijah carroll Referred To Contact [facility] Diagnoses Dysphagia, unspecified type Nausea Abdominal bloating Procedures EGD DIAGNOSTIC ESOPHAGOGASTRODUODENOSC OPY TRANSORAL DIAGNOSTIC Mary Murillo PA-C [address] [place] [address] [facility] [place] [address] [place] [address] Referral ID Status Reason Start Date Expiration Date V isits Requested Visits Authorized [id number] Closed Auto-Generate d Referral 08/30/2023 08/29/2024 1 1 [facility] for referral (narrative)* Outpatient Procedure (Routine) - Authorized Specialty Diagnoses / Procedures Referred By Elijah carroll Referred To Contact [facility] Diagnoses Near syncope Procedures ECG COMPLETE ECG ROUTINE ECG W/LEAST 12 LDS W/I&R Javi Stevens MD [address] [id number] [facility] [place] [address] Referral ID Status Reason Start Date Expiration Date Visits Requested Visits Authorized [id number] Authorized Auto-Generat ed Referral 02/04/2024 02/03/2025 1 1 [facility] for visit Narrative* Diagnostic Procedure Only (Routine) - Closed Specialty Diagnoses / Procedures Referred By Elijah carroll Referred To Contact BR IMAGING Diagnoses Mass of left breast, unspecified quadrant Family history of breast cancer Procedures US BREAST LTD LEFT US BREAST UNI REAL TIME WITH IMAGE LIMITED Lul Carranza APRN.CNP [address] [id number] [facility] [address] [place] [address] Referral ID Status Reason Start Date Expiration Date V isits Requested Visits Authorized [id number] Closed Auto-Generate d Referral 04/20/2023 05/19/2024 1 1 [facility] for visit Narrative* Outpatient Procedure (Routine) - Closed Specialty Diagnoses / Procedures Referred By Contac t Referred To [facility] Diagnoses Blood clot in arm (HCC) Procedures US ARM VEIN DVT UNL VAS LAB DUP-SCAN XTR VEINS UNILATERAL/LIMITED STUDY Marilyn Piña APRN.CNM [address] [place] [address] [facility] [place] [address] [place] [address] Referral ID Status Reason Start Date Expiration Date V isits Requested Visits Authorized [id number] Closed Auto-Generate d Referral 12/25/2023 12/24/2024 1 1 [facility] for visit Narrative* Diagnostic Procedure Only (Urgent) - Closed Specialty Diagnoses / Procedures Referred By Contac t Referred To Contact XR IMAGING Diagnoses Pain of right hip Procedures XR HIP GENERAL 3V PELV/AP/LAT RIGHT RADEX HIP UNILATERAL WITH PELVIS 2-3 VIEWS Rebel Sneed, PHARMACY CLERK.CATHEAD WORKER [address] [place] [address] [place] [address] Referral ID Status Reason Start Date Expiration Date V isits Requested Visits Authorized [id number] Closed Auto-Generate d Referral 11/05/2023 12/04/2024 1 1 [facility] for visit Narrative* Outpatient Procedure (Routine) - Closed Specialty Diagnoses / Procedures Referred By Contac t Referred To Contact [facility] Diagnoses Dysphagia, unspecified type Nausea Abdominal bloating Procedures EGD DIAGNOSTIC ESOPHAGOGASTRODUODENOSC OPY TRANSORAL DIAGNOSTIC Mary Murillo PA-C [address] [place] [address] [facility] [place] [address] [place] [address] Referral ID Status Reason Start Date Expiration Date V isits Requested Visits Authorized [id number] Closed Auto-Generate d Referral 08/30/2023 08/29/2024 1 1 [facility] for visit Narrative* Diagnostic Procedure Only (Routine) - Closed Specialty Diagnoses / Procedures Referred By Contac t Referred To Contact Radiology / [facility] Diagnoses rm 3 Procedures XR CHEST Orlando Chopra APRN.CATHEAD WORKER [address] [place] [address] [facility] [address] [place] [address] Referral ID Status Reason Start Date Expiration Date Visits Re quested Visits Authorized [id number] Closed 08/03/2023 08/03/2023 1 1 [facility] for visit Narrative* Diagnostic Procedure Only (Routine) - Closed Specialty Diagnoses / Procedures Referred By Contac t Referred To Contact XR IMAGING Diagnoses Dysphagia, unspecified type Procedures XR MODIFIED BARIUM SWALLOW W SPEECH THERAPY RADIOLOGIC EXAM SWALLOW FUNCTION CONTRAST STUDY Mary Murillo PA-C [address] [employer] [address] [id number] Xr Imaging [place] [address] Referral ID Status Reason Start Date Expiration Date V isits Requested Visits Authorized [id number] Closed Auto-Generate d Referral 02/21/2024 03/22/2025 1 1 [facility] for visit Narrative* Diagnostic Procedure Only (Routine) - Closed Specialty Diagnoses / Procedures Referred By Contac t Referred To Contact [facility] Diagnoses Menorrhagia with regular cycle Procedures PELVIC US I US PELVIC NONOBSTETRIC REAL-TIME IMAGE COMPLETE Marilyn Piña APRN.YANET [address] [place] [address] [facility] [address] [place] [address] Referral ID Status Reason Start Date Expiration Date V isits Requested Visits Authorized [id number] Closed Auto-Generate d Referral 12/03/2023 12/02/2024 1 1 [facility] for visit Narrative* Referral (Routine) - Open Specialty Diagnoses / Procedures Referred By Contac t Referred To Contact Diagnoses Family history of breast cancer Procedures Genetic Sendout: CancerNext-Expanded Panel [place] [address] Phone: tel: fax: Referral ID Status Reason Start Date Expiration Date V isits Requested Visits Authorized [id number] Open Specialty Services Required 02/15/2024 02/14/2025 1 1 [facility] Health Concerns Infection Onset Date Last Indicated Resolved Time COVID-19 Rule-Out 03/22/2022 03/22/2022 03/23/2022 1:16 AM EDT COVID-19 Confirmed 03/22/2022 03/22/2022 Chief Complaint and Reason for Visit Chief Complaint DENTAL Chief Complaint PE DRUG SCREEN & PHY SICAL/CCHO anxiety Reason for Visit Encounter for pre-em ployment health screening examination Chief Complaint PE DRUG SCREEN & PHY SICAL/CCHO anxiety hip pain anxiety Reason for Visit Encounter for pre-em ployment health screening examination Chief Complaint PE DRUG SCREEN & PHY SICAL/CCHO anxiety hip pain anxiety OBWC/LEFT ANKLE INJURY/CCHO XRAY Reason for Visit Encounter for pre-em ployment health screening examination Contusion of left knee Left ankle sprain Sprain of left foot Chief Complaint PE DRUG SCREEN & PHY SICAL/CCHO anxiety hip pain anxiety OBWC/LEFT ANKLE INJURY/CCHO XRAY LEFT ANKLE LOWER LEG/[employer] left ankle strain LT ANKLE INJURY/[employer] [employer] Reason for Visit Encounter for pre-em ployment health screening examination Contusion of left knee Left ankle sprain Sprain of left foot Left ankle sprain Left ankle sprain Chief Complaint PE DRUG SCREEN & PHY SICAL/CCHO anxiety hip pain anxiety OBWC/LEFT ANKLE INJURY/CCHO XRAY LEFT ANKLE LOWER LEG/[employer] left ankle strain LT ANKLE INJURY/[facility] [employer] 1 W FU 2 W FU/CCHO LEFT ANKLE PAIN FOLLOW UP/DISCUSS MRI/CCHO SPRAIN OF LIGAMENT OF LEFT ANKLE. RX HERE Reason for Visit Encounter for pre-em ployment health screening examination Contusion of left knee Left ankle sprain Sprain of left foot Left ankle sprain Left ankle sprain Left ankle sprain Sprain of left foot Left ankle sprain Left ankle sprain Chief Complaint OBWC/LEFT ANKLE INJU RY/CCHO XRAY LEFT ANKLE LOWER LEG/[employer] left ankle strain LT ANKLE INJURY/[employer] [employer] 1 W FU 2 W FU/CCHO LEFT ANKLE PAIN FOLLOW UP/DISCUSS MRI/CCHO 2 W FU LFFT ANKLE LEFT ANKLE SOB SPRAIN OF LIGAMENT OF LEFT ANKLE. RX HERE LEFT ANKLE Reason for Visit Contusion of left kn ee Left ankle sprain Sprain of left foot Left ankle sprain Left ankle sprain Left ankle sprain Sprain of left foot Left ankle sprain Left ankle sprain Left ankle sprain Sprain of left foot Left ankle sprain Left ankle sprain Left ankle sprain Chief Complaint LEFT ANKLE LOWER LEG /[employer] left ankle strain LT ANKLE INJURY/[employer] [employer] 1 W FU 2 W FU/CCHO LEFT ANKLE PAIN FOLLOW UP/DISCUSS MRI/CCHO 2 W FU LFFT ANKLE LEFT ANKLE SOB SPRAIN OF LIGAMENT OF LEFT ANKLE. RX HERE LEFT ANKLE BLOOD IN URINE DYSURIA urinary symptoms, bleeding Reason for Visit Left ankle sprain Left ankle sprain Left ankle sprain Sprain of left foot Left ankle sprain Left ankle sprain Left ankle sprain Sprain of left foot Left ankle sprain Left ankle sprain Left ankle sprain Hematuria Chief Complaint LEFT ANKLE LOWER LEG /[employer] left ankle strain LT ANKLE INJURY/[employer] [employer] 1 W FU 2 W FU/CCHO LEFT ANKLE PAIN FOLLOW UP/DISCUSS MRI/CCHO 2 W FU LFFT ANKLE LEFT ANKLE SOB SPRAIN OF LIGAMENT OF LEFT ANKLE. RX HERE LEFT ANKLE BLOOD IN URINE DYSURIA urinary symptoms, bleeding chest other Reason for Visit Left ankle sprain Left ankle sprain Left ankle sprain Sprain of left foot Left ankle sprain Left ankle sprain Left ankle sprain Sprain of left foot Left ankle sprain Left ankle sprain Left ankle sprain Hematuria Chief Complaint PRE-EMPLOYMENT PHYSI [place] REOCCURING LEFT FOOT PAIN Reason for Visit Encounter for pre-em ployment health screening examination Left ankle sprain Strain of Achilles tendon Chief Complaint REOCCURING LEFT FOOT PAIN ABD PAIN Reason for Visit Left ankle sprain Strain of Achilles tendon Advance Directives Advance Directive Response Recorded Date/ Time Living Will No May 16 7:58pm Power of [employer] Manager No May 16, 2022 7:58pm Advance Directive Response Recorded Date/ Time Living Will No September 22, 2022 5: 40pm Power of [employer] Manager No September 22, 2022 5:40pm Advance Directive Response Recorded Date/ Time Living Will No October 14, 2022 8 :36pm Power of [employer] Manager No October 14, 2022 8:36pm Advance Directive Response Recorded Date/ Time Living Will No February 24 9:05pm Power of [employer] Manager No February 24 9:05pm Advance Directive Response Recorded Date/ Time Living Will No March 09 6:31pm Power of [employer] Manager No March 09, 2023 6:31pm Advance Directive Response Recorded Date/ Time Living Will No March 18 4:34pm Power of [employer] Manager No March 18, 2023 4:34pm Advance Directive Response Recorded Date/ Time Living Will No July 30, 2023 8:43am Power of [employer] Manager No July 29 8:43am Advance Directive Response Recorded Date/ Time Living Will No September 21, 2023 4: 45pm Power of [employer] Manager No September 21, 2023 4:45pm Summary Purpose Family History No Family History Records Found No data available for this section No data available for this section No Family History Records Found No data available for this section No data available for this section No data available for this section No data available for this section No data available for this section No Family History Records Found No data available for this section No Family History Records FoundNo Family History Records Found No data available for this section No data available for this section No data available for this section No Family History Records Found No data available for this section No data available for this section No data available for this section No data available for this section No data available for this section No data available for this section No data available for this section No data available for this section No data available for this section No data available for this section No data available for this section No data available for this section No data available for this section No Family History Records Found No data available for this section No data available for this section No Family History Records Found No data available for this section No Family History Records FoundNo Family History Records Found No data available for this section No data available for this section No Family History Records FoundNo Family History Records Found Reason for Referral Specialty Diagnoses / Procedures Referred By Contac t Referred To Contact Pulmonary Disease Diagnoses Lung nodules Procedures CONSULT TO LUNG NODULE CLINIC OFFICE/OUTPATIENT [facility] 60 MINUTES Lul Carranza APRN.CATHEAD WORKER [address] [place] [address] Referral ID Status Reason Start Date Expiration Date Visits Requested Visits Authorized [id number] Authorized PCP Requested Referral 06/27/2024 06/27/2025 1 1 Specialty Diagnoses / Procedures Referred By Contac t Referred To Contact [facility] Diagnoses Dysphagia, unspecified type Procedures CONSULT TO SPEECH THERAPY OFFICE/OUTPATIENT [facility] 60 MINUTES Mary Murillo PA-C [address] [place] [address] [facility] [place] [address] [place] [address] Referral ID Status Reason Start Date Expiration Date Visits Requested Visits Authorized [id number] Pending Review Auto-Generat ed Referral 02/13/2024 02/12/2025 1 1 Specialty Diagnoses / Procedures Referred By Contac t Referred To Contact [facility] [place] Diagnoses Chronic low back pain without sciatica, unspecified back pain laterality Thoracic disc herniation Facet arthropathy Procedures CONSULT TO SPINE MEDICAL CENTER OFFICE/OUTPATIENT [facility] 60 MINUTES Aury Tristan DO [address], [place] [address] Referral ID Status Reason Start Date Expiration Date Visits Requested Visits Authorized [id number] Authorized PCP Requested Referral 02/06/2024 02/05/2025 1 1 Specialty Diagnoses / Procedures Referred By Contac t Referred To Contact Diagnoses Class 3 severe obesity without serious comorbidity with body mass index (BMI) of 40.0 to 44.9 in adult, unspecified obesity type (HCC) Procedures CONSULT BARIATRIC/[facility] OFFICE/OUTPATIENT [facility] 60 MINUTES Stacy Segura MD [address] [place] [address] Referral ID Status Reason Start Date Expiration Date Visits Requested Visits Authorized [id number] Authorized PCP Requested Referral 12/31/2023 12/30/2024 1 1 Specialty Diagnoses / Procedures Referred By Contac t Referred To Contact [facility] Diagnoses Digital nerve laceration, finger, initial encounter Procedures CONSULT TO DEPUTY SHERIFF K9 HANDLER OCCUPATIONAL THERAPY EVAL [facility] 60 MINS Juliet Mcmullen PA-C [address] [place] [address] [facility] [place] [address] [place] [address] Referral ID Status Reason Start Date Expiration Date Visits Requested Visits Authorized [id number] Pending Review Auto-Generat ed Referral 10/05/2023 10/04/2024 1 1 Specialty Diagnoses / Procedures Referred By Contac t Referred To Contact CT IMAGING Diagnoses Lung nodules Procedures CT CHEST WO IVCON DIAGNOSTIC COMPUTED TOMOGRAPHY THORAX W/O CNTRST Lul Carranza, PHARMACY CLERK.CATHEAD WORKER [address] [place] [address] Ct Imaging [id number] Referral ID Status Reason Start Date Expiration Date Visits Requested Visits Authorized [id number] Pending Review Auto-Generat ed Referral 03/29/2024 10/26/2024 1 1 Specialty Diagnoses / Procedures Referred By Contac t Referred To Contact Diagnoses Irritable bowel syndrome with diarrhea Migraine without status migrainosus, not intractable, unspecified migraine type Poor sleep Fibromyalgia Procedures CONSULT TO WELLNESS PHYSICIAN OFFICE/OUTPATIENT [facility] 60 MINUTES Aury Tristan DO [address] [place] [address] Referral ID Status Reason Start Date Expiration Date Visits Requested Visits Authorized [id number] Authorized PCP Requested Referral 08/06/2023 08/05/2024 1 1 Specialty Diagnoses / Procedures Referred By Contac t Referred To Contact [facility] Diagnoses 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 Procedures CONSULT TO PHYSICAL THERAPY PHYSICAL THERAPY EVALUATION [facility] 45 MINS Aury Tristan DO [address] [place] [address] [facility] [address] [address] Referral ID Status Reason Start Date Expiration Date Visits Requested Visits Authorized [id number] Pending Review Auto-Generat ed Referral 08/06/2023 08/05/2024 1 1 Specialty Diagnoses / Procedures Referred By Contac t Referred To Contact Gastroenterology Diagnoses Irritable bowel syndrome with diarrhea Procedures CONSULT TO GASTROENTEROLOGY OFFICE/OUTPATIENT [facility] 60 MINUTES Bel Aury SubramanianDO [address] [place] [address] Referral ID Status Reason Start Date Expiration Date Visits Requested Visits Authorized [id number] Authorized PCP Requested Referral 08/06/2023 08/05/2024 1 1 Specialty Diagnoses / Procedures Referred By Contac t Referred To Contact Diagnoses Family history of breast cancer Procedures CONSULT TO MEDICAL GENETICS - CANCER MEDICAL GENETICS COUNSELING EACH 30 [place] [address] [place] [address] [facility] [place] [address] [place] [address] Referral ID Status Reason Start Date Expiration Date Visits Requested Visits Authorized [id number] Pending Review PCP Requested Referral Auto-Generate d Referral 07/19/2023 07/18/2024 1 1 Specialty Diagnoses / Procedures Referred By Contparker t Referred To Contact Breast Diseases Diagnoses Cyst of left breast Breast pain Family history of breast cancer Procedures CONSULT TO BREAST CENTER OFFICE/OUTPATIENT [facility] 60-74 MINUTES Lul Carranza APRN.CATHEAD WORKER [address] [place] [address] Referral ID Status Reason Start Date Expiration Date Visits Requested Visits Authorized [id number] Authorized PCP Requested Referral 04/26/2023 07/25/2023 1 1 Specialty Diagnoses / Procedures Referred By Elijah t Referred To Contact CT IMAGING Diagnoses Moderate persistent asthma without complication Procedures CT CHEST WO IVCON DIAGNOSTIC COMPUTED TOMOGRAPHY THORAX W/O CNTJack Colón MD [address] [place] [address] Ct Imaging [id number] Referral ID Status Reason Start Date Expiration Date Visits Requested Visits Authorized [id number] Authorized Auto-Generat ed Referral 3 05/03/2024 1 1 Specialty Diagnoses / Procedures Referred By Elijah t Referred To Contact [facility] Diagnoses Moderate persistent asthma without complication Procedures SPIROMETRY - BASELINE AND POST DILATOR BRNCDILAT RSPSE SPMTRY PRE&POST-BRNCDILAT ADMN Jack Alvarez, MD [address] [place] [address] [facility] [place] [address] [place] [address] Referral ID Status Reason Start Date Expiration Date Visits Requested Visits Authorized [id number] Authorized Auto-Generat ed Referral 3 05/03/2024 1 1 Additional Source Comments Source Comments (unrecognize d section and content) In the event this informatio n is protected by the Federal Confidentiality of Alcohol and Drug Abuse Patient Records regulations: The Federal rules restrict any use of the information to criminally investigate or prosecute any alcohol or drug abuse patient.[facility] the event this information is protected by the Federal Confidentiality of Alcohol and Drug Abuse Patient Records regulations: The Federal rules restrict any use of the information to criminally investigate or prosecute any alcohol or drug abuse patient.[facility] the event this information is protected by the Federal Confidentiality of Alcohol and Drug Abuse Patient Records regulations: The Federal rules restrict any use of the information to criminally investigate or prosecute any alcohol or drug abuse patient.[facility] the event this information is protected by the Federal Confidentiality of Alcohol and Drug Abuse Patient Records regulations: The Federal rules restrict any use of the information to criminally investigate or prosecute any alcohol or drug abuse patient.[facility] the event this information is protected by the Federal Confidentiality of Alcohol and Drug Abuse Patient Records regulations: The Federal rules restrict any use of the information to criminally investigate or prosecute any alcohol or drug abuse patient.[facility] the event this information is protected by the Federal Confidentiality of Alcohol and Drug Abuse Patient Records regulations: The Federal rules restrict any use of the information to criminally investigate or prosecute any alcohol or drug abuse patient.[facility] the event this information is protected by the Federal Confidentiality of Alcohol and Drug Abuse Patient Records regulations: The Federal rules restrict any use of the information to criminally investigate or prosecute any alcohol or drug abuse patient.[facility] the event this information is protected by the Federal Confidentiality of Alcohol and Drug Abuse Patient Records regulations: The Federal rules restrict any use of the information to criminally investigate or prosecute any alcohol or drug abuse patient.[facility] the event this information is protected by the Federal Confidentiality of Alcohol and Drug Abuse Patient Records regulations: The Federal rules restrict any use of the information to criminally investigate or prosecute any alcohol or drug abuse patient.[facility]In the event this information is protected by the Federal Confidentiality of Alcohol and Drug Abuse Patient Records regulations: The Federal rules restrict any use of the information to criminally investigate or prosecute any alcohol or drug abuse patient.[facility] the event this information is protected by the Federal Confidentiality of Alcohol and Drug Abuse Patient Records regulations: The Federal rules restrict any use of the information to criminally investigate or prosecute any alcohol or drug abuse patient.[facility] the event this information is protected by the Federal Confidentiality of Alcohol and Drug Abuse Patient Records regulations: The Federal rules restrict any use of the information to criminally investigate or prosecute any alcohol or drug abuse patient.[facility]In the event this information is protected by the Federal Confidentiality of Alcohol and Drug Abuse Patient Records regulations: The Federal rules restrict any use of the information to criminally investigate or prosecute any alcohol or drug abuse patient.[facility]In the event this information is protected by the Federal Confidentiality of Alcohol and Drug Abuse Patient Records regulations: The Federal rules restrict any use of the information to criminally investigate or prosecute any alcohol or drug abuse patient.[facility]In the event this information is protected by the Federal Confidentiality of Alcohol and Drug Abuse Patient Records regulations: The Federal rules restrict any use of the information to criminally investigate or prosecute any alcohol or drug abuse patient.[facility]In the event this information is protected by the Federal Confidentiality of Alcohol and Drug Abuse Patient Records regulations: The Federal rules restrict any use of the information to criminally investigate or prosecute any alcohol or drug abuse patient.[facility] the event this information is protected by the Federal Confidentiality of Alcohol and Drug Abuse Patient Records regulations: The Federal rules restrict any use of the information to criminally investigate or prosecute any alcohol or drug abuse patient.[facility]In the event this information is protected by the Federal Confidentiality of Alcohol and Drug Abuse Patient Records regulations: The Federal rules restrict any use of the information to criminally investigate or prosecute any alcohol or drug abuse patient.[facility]In the event this information is protected by the Federal Confidentiality of Alcohol and Drug Abuse Patient Records regulations: The Federal rules restrict any use of the information to criminally investigate or prosecute any alcohol or drug abuse patient.[facility] EastIn the event this information is protected by the Federal Confidentiality of Alcohol and Drug Abuse Patient Records regulations: The Federal rules restrict any use of the information to criminally investigate or prosecute any alcohol or drug abuse patient.[facility]In the event this information is protected by the Federal Confidentiality of Alcohol and Drug Abuse Patient Records regulations: The Federal rules restrict any use of the information to criminally investigate or prosecute any alcohol or drug abuse patient.[facility]In the event this information is protected by the Federal Confidentiality of Alcohol and Drug Abuse Patient Records regulations: The Federal rules restrict any use of the information to criminally investigate or prosecute any alcohol or drug abuse patient.[facility] EastIn the event this information is protected by the Federal Confidentiality of Alcohol and Drug Abuse Patient Records regulations: The Federal rules restrict any use of the information to criminally investigate or prosecute any alcohol or drug abuse patient.[facility]In the event this information is protected by the Federal Confidentiality of Alcohol and Drug Abuse Patient Records regulations: The Federal rules restrict any use of the information to criminally investigate or prosecute any alcohol or drug abuse patient.[facility]In the event this information is protected by the Federal Confidentiality of Alcohol and Drug Abuse Patient Records regulations: The Federal rules restrict any use of the information to criminally investigate or prosecute any alcohol or drug abuse patient.[facility]In the event this information is protected by the Federal Confidentiality of Alcohol and Drug Abuse Patient Records regulations: The Federal rules restrict any use of the information to criminally investigate or prosecute any alcohol or drug abuse patient.[facility]In the event this information is protected by the Federal Confidentiality of Alcohol and Drug Abuse Patient Records regulations: The Federal rules restrict any use of the information to criminally investigate or prosecute any alcohol or drug abuse patient.[facility]In the event this information is protected by the Federal Confidentiality of Alcohol and Drug Abuse Patient Records regulations: The Federal rules restrict any use of the information to criminally investigate or prosecute any alcohol or drug abuse patient.[facility]In the event this information is protected by the Federal Confidentiality of Alcohol and Drug Abuse Patient Records regulations: The Federal rules restrict any use of the information to criminally investigate or prosecute any alcohol or drug abuse patient.[facility]In the event this information is protected by the Federal Confidentiality of Alcohol and Drug Abuse Patient Records regulations: The Federal rules restrict any use of the information to criminally investigate or prosecute any alcohol or drug abuse patient.[facility]In the event this information is protected by the Federal Confidentiality of Alcohol and Drug Abuse Patient Records regulations: The Federal rules restrict any use of the information to criminally investigate or prosecute any alcohol or drug abuse patient.[facility]In the event this information is protected by the Federal Confidentiality of Alcohol and Drug Abuse Patient Records regulations: The Federal rules restrict any use of the information to criminally investigate or prosecute any alcohol or drug abuse patient.[facility]In the event this information is protected by the Federal Confidentiality of Alcohol and Drug Abuse Patient Records regulations: The Federal rules restrict any use of the information to criminally investigate or prosecute any alcohol or drug abuse patient.[facility]In the event this information is protected by the Federal Confidentiality of Alcohol and Drug Abuse Patient Records regulations: The Federal rules restrict any use of the information to criminally investigate or prosecute any alcohol or drug abuse patient.[facility]In the event this information is protected by the Federal Confidentiality of Alcohol and Drug Abuse Patient Records regulations: The Federal rules restrict any use of the information to criminally investigate or prosecute any alcohol or drug abuse patient.[facility]In the event this information is protected by the Federal Confidentiality of Alcohol and Drug Abuse Patient Records regulations: The Federal rules restrict any use of the information to criminally investigate or prosecute any alcohol or drug abuse patient.[facility]In the event this information is protected by the Federal Confidentiality of Alcohol and Drug Abuse Patient Records regulations: The Federal rules restrict any use of the information to criminally investigate or prosecute any alcohol or drug abuse patient.[facility]In the event this information is protected by the Federal Confidentiality of Alcohol and Drug Abuse Patient Records regulations: The Federal rules restrict any use of the information to criminally investigate or prosecute any alcohol or drug abuse patient.[facility]In the event this information is protected by the Federal Confidentiality of Alcohol and Drug Abuse Patient Records regulations: The Federal rules restrict any use of the information to criminally investigate or prosecute any alcohol or drug abuse patient.[facility]In the event this information is protected by the Federal Confidentiality of Alcohol and Drug Abuse Patient Records regulations: The Federal rules restrict any use of the information to criminally investigate or prosecute any alcohol or drug abuse patient.[facility] EastIn the event this information is protected by the Federal Confidentiality of Alcohol and Drug Abuse Patient Records regulations: The Federal rules restrict any use of the information to criminally investigate or prosecute any alcohol or drug abuse patient.[facility]In the event this information is protected by the Federal Confidentiality of Alcohol and Drug Abuse Patient Records regulations: The Federal rules restrict any use of the information to criminally investigate or prosecute any alcohol or drug abuse patient.[facility]In the event this information is protected by the Federal Confidentiality of Alcohol and Drug Abuse Patient Records regulations: The Federal rules restrict any use of the information to criminally investigate or prosecute any alcohol or drug abuse patient.[facility]In the event this information is protected by the Federal Confidentiality of Alcohol and Drug Abuse Patient Records regulations: The Federal rules restrict any use of the information to criminally investigate or prosecute any alcohol or drug abuse patient.[facility]In the event this information is protected by the Federal Confidentiality of Alcohol and Drug Abuse Patient Records regulations: The Federal rules restrict any use of the information to criminally investigate or prosecute any alcohol or drug abuse patient.[facility]In the event this information is protected by the Federal Confidentiality of Alcohol and Drug Abuse Patient Records regulations: The Federal rules restrict any use of the information to criminally investigate or prosecute any alcohol or drug abuse patient.[facility]In the event this information is protected by the Federal Confidentiality of Alcohol and Drug Abuse Patient Records regulations: The Federal rules restrict any use of the information to criminally investigate or prosecute any alcohol or drug abuse patient.[facility]In the event this information is protected by the Federal Confidentiality of Alcohol and Drug Abuse Patient Records regulations: The Federal rules restrict any use of the information to criminally investigate or prosecute any alcohol or drug abuse patient.[facility]In the event this information is protected by the Federal Confidentiality of Alcohol and Drug Abuse Patient Records regulations: The Federal rules restrict any use of the information to criminally investigate or prosecute any alcohol or drug abuse patient.[facility]In the event this information is protected by the Federal Confidentiality of Alcohol and Drug Abuse Patient Records regulations: The Federal rules restrict any use of the information to criminally investigate or prosecute any alcohol or drug abuse patient.[facility]In the event this information is protected by the Federal Confidentiality of Alcohol and Drug Abuse Patient Records regulations: The Federal rules restrict any use of the information to criminally investigate or prosecute any alcohol or drug abuse patient.[facility]In the event this information is protected by the Federal Confidentiality of Alcohol and Drug Abuse Patient Records regulations: The Federal rules restrict any use of the information to criminally investigate or prosecute any alcohol or drug abuse patient.[facility]In the event this information is protected by the Federal Confidentiality of Alcohol and Drug Abuse Patient Records regulations: The Federal rules restrict any use of the information to criminally investigate or prosecute any alcohol or drug abuse patient.[facility]In the event this information is protected by the Federal Confidentiality of Alcohol and Drug Abuse Patient Records regulations: The Federal rules restrict any use of the information to criminally investigate or prosecute any alcohol or drug abuse patient.[facility]In the event this information is protected by the Federal Confidentiality of Alcohol and Drug Abuse Patient Records regulations: The Federal rules restrict any use of the information to criminally investigate or prosecute any alcohol or drug abuse patient.[facility]In the event this information is protected by the Federal Confidentiality of Alcohol and Drug Abuse Patient Records regulations: The Federal rules restrict any use of the information to criminally investigate or prosecute any alcohol or drug abuse patient.[facility]In the event this information is protected by the Federal Confidentiality of Alcohol and Drug Abuse Patient Records regulations: The Federal rules restrict any use of the information to criminally investigate or prosecute any alcohol or drug abuse patient.[facility]In the event this information is protected by the Federal Confidentiality of Alcohol and Drug Abuse Patient Records regulations: The Federal rules restrict any use of the information to criminally investigate or prosecute any alcohol or drug abuse patient.[facility]In the event this information is protected by the Federal Confidentiality of Alcohol and Drug Abuse Patient Records regulations: The Federal rules restrict any use of the information to criminally investigate or prosecute any alcohol or drug abuse patient.[facility]In the event this information is protected by the Federal Confidentiality of Alcohol and Drug Abuse Patient Records regulations: The Federal rules restrict any use of the information to criminally investigate or prosecute any alcohol or drug abuse patient.[facility]In the event this information is protected by the Federal Confidentiality of Alcohol and Drug Abuse Patient Records regulations: The Federal rules restrict any use of the information to criminally investigate or prosecute any alcohol or drug abuse patient.[facility]In the event this information is protected by the Federal Confidentiality of Alcohol and Drug Abuse Patient Records regulations: The Federal rules restrict any use of the information to criminally investigate or prosecute any alcohol or drug abuse patient.[facility]In the event this information is protected by the Federal Confidentiality of Alcohol and Drug Abuse Patient Records regulations: The Federal rules restrict any use of the information to criminally investigate or prosecute any alcohol or drug abuse patient.[facility]In the event this information is protected by the Federal Confidentiality of Alcohol and Drug Abuse Patient Records regulations: The Federal rules restrict any use of the information to criminally investigate or prosecute any alcohol or drug abuse patient.[facility]In the event this information is protected by the Federal Confidentiality of Alcohol and Drug Abuse Patient Records regulations: The Federal rules restrict any use of the information to criminally investigate or prosecute any alcohol or drug abuse patient.[facility]In the event this information is protected by the Federal Confidentiality of Alcohol and Drug Abuse Patient Records regulations: The Federal rules restrict any use of the information to criminally investigate or prosecute any alcohol or drug abuse patient.[facility]In the event this information is protected by the Federal Confidentiality of Alcohol and Drug Abuse Patient Records regulations: The Federal rules restrict any use of the information to criminally investigate or prosecute any alcohol or drug abuse patient.[facility]In the event this information is protected by the Federal Confidentiality of Alcohol and Drug Abuse Patient Records regulations: The Federal rules restrict any use of the information to criminally investigate or prosecute any alcohol or drug abuse patient.[facility]In the event this information is protected by the Federal Confidentiality of Alcohol and Drug Abuse Patient Records regulations: The Federal rules restrict any use of the information to criminally investigate or prosecute any alcohol or drug abuse patient.[facility]In the event this information is protected by the Federal Confidentiality of Alcohol and Drug Abuse Patient Records regulations: The Federal rules restrict any use of the information to criminally investigate or prosecute any alcohol or drug abuse patient.[facility]In the event this information is protected by the Federal Confidentiality of Alcohol and Drug Abuse Patient Records regulations: The Federal rules restrict any use of the information to criminally investigate or prosecute any alcohol or drug abuse patient.[facility]In the event this information is protected by the Federal Confidentiality of Alcohol and Drug Abuse Patient Records regulations: The Federal rules restrict any use of the information to criminally investigate or prosecute any alcohol or drug abuse patient.[facility]In the event this information is protected by the Federal Confidentiality of Alcohol and Drug Abuse Patient Records regulations: The Federal rules restrict any use of the information to criminally investigate or prosecute any alcohol or drug abuse patient.[facility]In the event this information is protected by the Federal Confidentiality of Alcohol and Drug Abuse Patient Records regulations: The Federal rules restrict any use of the information to criminally investigate or prosecute any alcohol or drug abuse patient.[facility]In the event this information is protected by the Federal Confidentiality of Alcohol and Drug Abuse Patient Records regulations: The Federal rules restrict any use of the information to criminally investigate or prosecute any alcohol or drug abuse patient.[facility]In the event this information is protected by the Federal Confidentiality of Alcohol and Drug Abuse Patient Records regulations: The Federal rules restrict any use of the information to criminally investigate or prosecute any alcohol or drug abuse patient.[facility]In the event this information is protected by the Federal Confidentiality of Alcohol and Drug Abuse Patient Records regulations: The Federal rules restrict any use of the information to criminally investigate or prosecute any alcohol or drug abuse patient.[facility]In the event this information is protected by the Federal Confidentiality of Alcohol and Drug Abuse Patient Records regulations: The Federal rules restrict any use of the information to criminally investigate or prosecute any alcohol or drug abuse patient.[facility]In the event this information is protected by the Federal Confidentiality of Alcohol and Drug Abuse Patient Records regulations: The Federal rules restrict any use of the information to criminally investigate or prosecute any alcohol or drug abuse patient.[facility]In the event this information is protected by the Federal Confidentiality of Alcohol and Drug Abuse Patient Records regulations: The Federal rules restrict any use of the information to criminally investigate or prosecute any alcohol or drug abuse patient.[facility]In the event this information is protected by the Federal Confidentiality of Alcohol and Drug Abuse Patient Records regulations: The Federal rules restrict any use of the information to criminally investigate or prosecute any alcohol or drug abuse patient.[facility]In the event this information is protected by the Federal Confidentiality of Alcohol and Drug Abuse Patient Records regulations: The Federal rules restrict any use of the information to criminally investigate or prosecute any alcohol or drug abuse patient.[facility]In the event this information is protected by the Federal Confidentiality of Alcohol and Drug Abuse Patient Records regulations: The Federal rules restrict any use of the information to criminally investigate or prosecute any alcohol or drug abuse patient.[facility]In the event this information is protected by the Federal Confidentiality of Alcohol and Drug Abuse Patient Records regulations: The Federal rules restrict any use of the information to criminally investigate or prosecute any alcohol or drug abuse patient.[facility]In the event this information is protected by the Federal Confidentiality of Alcohol and Drug Abuse Patient Records regulations: The Federal rules restrict any use of the information to criminally investigate or prosecute any alcohol or drug abuse patient.[facility]In the event this information is protected by the Federal Confidentiality of Alcohol and Drug Abuse Patient Records regulations: The Federal rules restrict any use of the information to criminally investigate or prosecute any alcohol or drug abuse patient.[facility]In the event this information is protected by the Federal Confidentiality of Alcohol and Drug Abuse Patient Records regulations: The Federal rules restrict any use of the information to criminally investigate or prosecute any alcohol or drug abuse patient.[facility]In the event this information is protected by the Federal Confidentiality of Alcohol and Drug Abuse Patient Records regulations: The Federal rules restrict any use of the information to criminally investigate or prosecute any alcohol or drug abuse patient.[facility]In the event this information is protected by the Federal Confidentiality of Alcohol and Drug Abuse Patient Records regulations: The Federal rules restrict any use of the information to criminally investigate or prosecute any alcohol or drug abuse patient.[facility]In the event this information is protected by the Federal Confidentiality of Alcohol and Drug Abuse Patient Records regulations: The Federal rules restrict any use of the information to criminally investigate or prosecute any alcohol or drug abuse patient.[facility]In the event this information is protected by the Federal Confidentiality of Alcohol and Drug Abuse Patient Records regulations: The Federal rules restrict any use of the information to criminally investigate or prosecute any alcohol or drug abuse patient.[facility]In the event this information is protected by the Federal Confidentiality of Alcohol and Drug Abuse Patient Records regulations: The Federal rules restrict any use of the information to criminally investigate or prosecute any alcohol or drug abuse patient.[facility]In the event this information is protected by the Federal Confidentiality of Alcohol and Drug Abuse Patient Records regulations: The Federal rules restrict any use of the information to criminally investigate or prosecute any alcohol or drug abuse patient.[facility]In the event this information is protected by the Federal Confidentiality of Alcohol and Drug Abuse Patient Records regulations: The Federal rules restrict any use of the information to criminally investigate or prosecute any alcohol or drug abuse patient.[facility]In the event this information is protected by the Federal Confidentiality of Alcohol and Drug Abuse Patient Records regulations: The Federal rules restrict any use of the information to criminally investigate or prosecute any alcohol or drug abuse patient.[facility]In the event this information is protected by the Federal Confidentiality of Alcohol and Drug Abuse Patient Records regulations: The Federal rules restrict any use of the information to criminally investigate or prosecute any alcohol or drug abuse patient.[facility]In the event this information is protected by the Federal Confidentiality of Alcohol and Drug Abuse Patient Records regulations: The Federal rules restrict any use of the information to criminally investigate or prosecute any alcohol or drug abuse patient.[facility]In the event this information is protected by the Federal Confidentiality of Alcohol and Drug Abuse Patient Records regulations: The Federal rules restrict any use of the information to criminally investigate or prosecute any alcohol or drug abuse patient.[facility]In the event this information is protected by the Federal Confidentiality of Alcohol and Drug Abuse Patient Records regulations: The Federal rules restrict any use of the information to criminally investigate or prosecute any alcohol or drug abuse patient.[facility]In the event this information is protected by the Federal Confidentiality of Alcohol and Drug Abuse Patient Records regulations: The Federal rules restrict any use of the information to criminally investigate or prosecute any alcohol or drug abuse patient.[facility]In the event this information is protected by the Federal Confidentiality of Alcohol and Drug Abuse Patient Records regulations: The Federal rules restrict any use of the information to criminally investigate or prosecute any alcohol or drug abuse patient.[facility] the event this information is protected by the Federal Confidentiality of Alcohol and Drug Abuse Patient Records regulations: The Federal rules restrict any use of the information to criminally investigate or prosecute any alcohol or drug abuse patient.[facility] the event this information is protected by the Federal Confidentiality of Alcohol and Drug Abuse Patient Records regulations: The Federal rules restrict any use of the information to criminally investigate or prosecute any alcohol or drug abuse patient.[facility] the event this information is protected by the Federal Confidentiality of Alcohol and Drug Abuse Patient Records regulations: The Federal rules restrict any use of the information to criminally investigate or prosecute any alcohol or drug abuse patient.[facility] the event this information is protected by the Federal Confidentiality of Alcohol and Drug Abuse Patient Records regulations: The Federal rules restrict any use of the information to criminally investigate or prosecute any alcohol or drug abuse patient.[facility] the event this information is protected by the Federal Confidentiality of Alcohol and Drug Abuse Patient Records regulations: The Federal rules restrict any use of the information to criminally investigate or prosecute any alcohol or drug abuse patient.[facility] the event this information is protected by the Federal Confidentiality of Alcohol and Drug Abuse Patient Records regulations: The Federal rules restrict any use of the information to criminally investigate or prosecute any alcohol or drug abuse patient.[facility] the event this information is protected by the Federal Confidentiality of Alcohol and Drug Abuse Patient Records regulations: The Federal rules restrict any use of the information to criminally investigate or prosecute any alcohol or drug abuse patient.[facility] the event this information is protected by the Federal Confidentiality of Alcohol and Drug Abuse Patient Records regulations: The Federal rules restrict any use of the information to criminally investigate or prosecute any alcohol or drug abuse patient.[facility] the event this information is protected by the Federal Confidentiality of Alcohol and Drug Abuse Patient Records regulations: The Federal rules restrict any use of the information to criminally investigate or prosecute any alcohol or drug abuse patient.[facility] Goals (unrecognized section and content) Goals may be documented in a n alternate sectionGoals may be documented in an alternate sectionGoals may be documented in an alternate sectionGoals may be documented in an alternate sectionGoals may be documented in an alternate sectionGoals may be documented in an alternate section No data available for this sectionGoals may be documented in an alternate sectionGoals may be documented in an alternate sectionGoals may be documented in an alternate section No data available for this section No data available for this section No data available for this sectionGoals may be documented in an alternate sectionGoals may be documented in an alternate section No data available for this section No data available for this section No data available for this section No data available for this section No data available for this section No data available for this section No data available for this section No data available for this section No data available for this section No data available for this section No data available for this section No data available for this section No data available for this section No data available for this section No data available for this section No data available for this section No data available for this section No data available for this section No data available for this section No data available for this section No data available for this section No data available for this section No data available for this section No data available for this section No data available for this section Care Teams (unrecognized sec tion and content) Team Status: Active Member Role Status Dates No Primary Care Physician Primary Care Provider Active Team Status: Inactive Member Role Status Dates Out of Town Doctor Primary Care Provider, Referring Pr ovider Active Nick DAILEY PA Attending Provider Active Team Status: Inactive Member Role Status Dates Dr. Chirag Mullen MD Emergency Provider Active No Primary Care Physician Primary Care Provider Active Team Status: Inactive Member Role Status Dates Dr. Chirag Mullen MD Attending Provider, Emergency Provider Active No Primary Care Physician Primary Care Provider Active Team Status: Inactive Member Role Status Dates No Primary Care Physician Primary Care Provider Active Dr. Marquita Nuno MD Attending Provider, Emergency Provider Active Team Status: Inactive Member Role Status Dates No Primary Care Physician Primary Care Provider Active Dr. Young Rock MD Emergency Provider Active Team Status: Active Member Role Status Dates SHAUNA VACCARELLI Primary Care Provider Active Team Status: Inactive Member Role Status Dates No Primary Care Physician Primary Care Provider, Refer ring Provider Active Kole DAILEY PA Attending Provider Active Team Status: Inactive Member Role Status Dates No Primary Care Physician Primary Care Provider Active Dr. Levon Ennis MD Attending Provider Active Team Status: Inactive Member Role Status Dates No Primary Care Physician Primary Care Provider Active Dr. Young Rock MD Attending Provider, Emergency Pr ovider Active Team Status: Inactive Member Role Status Dates SHAUNA, VACCARELLI Primary Care Provide r, Attending Provider, Referring Provider Active Team Status: Inactive Member Role Status Dates Nick DAILEY PA Attending Provider Active Team Status: Inactive Member Role Status Dates No Primary Care Physician Primary Care Provider, Refer ring Provider Active Nick DAILEY PA Attending Provider Active Team Status: Inactive Member Role Status Dates Nick DAILEY PA Attending Provider, Referring Provi brianda Active No Primary Care Physician Primary Care Provider Active Team Status: Inactive Member Role Status Dates No Primary Care Physician Primary Care Provider Active Nick DAILEY PA Attending Provider, Referring Provi brianda Active Team Status: Active Member Role Status Dates No Primary Care Physician Primary Care Provider Active Nick DAILEY PA Attending Provider Active Team Status: Inactive Member Role Status Dates No Primary Care Physician Primary Care Provider, Refer ring Provider Active Dario Alejandre MD Attending Provider Active Team Status: Inactive Member Role Status Dates No Primary Care Physician Primary Care Provider Active Dr. Mike High DO Attending Provider, Emergency P rovider Active Team Status: Inactive Member Role Status Dates No Primary Care Physician Primary Care Provider Active Nick DAILEY PA Attending Provider Active Team Status: Inactive Member Role Status Dates Dr. Rehan Clifton DO Attending Provider, Emergency Provider Active Team Status: Inactive Member Role Status Dates Nick DAILEY PA Attending Provider, Referring Provi brianda Active Team Status: Active Member Role Status Jack Priest MULTIMEDIA ASSISTANT, MULTIMEDIA ASSISTANT-C Primary Care Provider Activ e Team Status: Inactive Member Role Status Dates Dr. Shawn Barrett MD Emergency Provider Active Jack Priest MULTIMEDIA ASSISTANT, MULTIMEDIA ASSISTANT-C Primary Care Provider Activ e Team Status: Inactive Member Role Status Jack Priest MULTIMEDIA ASSISTANT, MULTIMEDIA ASSISTANT-C Primary Care Provider, Refe rring Provider Active Kole Mejía PA, PA Attending Provider Active Team Status: Inactive Member Role Status Dates Jack Priest NP, MULTIMEDIA ASSISTANT-C Primary Care Provider Activ e Dr. López Hernandez MD Attending Provider, Referring P rovider Active Team Status: Inactive Member Role Status Dates Dr. Shahzad Dsouza MD Emergency Provider Active No Primary Care Physician Primary Care Provider Active Copy Director Relationship Specialty Start Date End Date López Hernandez [address] [facility] [address] [place] [address] Referring Orthopedics 09/22/23 Copy Director Relationship Specialty Start Date End Date López Hernandez [address] [facility] [address] [place] [address] Referring Orthopedics 09/22/23 Copy Director Relationship Specialty Start Date End Date López Hernandez [address] [place] [address] Referring Orthopedics 09/22/23 Copy Director Relationship Specialty Start Date End Date López Hernandez [address] [place] [address] Referring Orthopedics 09/22/23 Copy Director Relationship Specialty Start Date End Date López Hernandez [address] [place] [address] Referring Orthopedics 09/22/23 Copy Director Relationship Specialty Start Date End Date López Hernandez [address] [facility] [place] [address] Referring Orthopedics 09/22/23 Copy Director Relationship Specialty Start Date End Date López Hernandez [address] [place] [address] Referring Orthopedics 09/22/23 Copy Director Relationship Specialty Start Date End Date López Hernandez [address] [place] [address] Referring Orthopedics 09/22/23 Copy Director Relationship Specialty Start Date End Date López Hernandez [address] [place] [address] Referring Orthopedics 09/22/23 Copy Director Relationship Specialty Start Date End Date López Hernandez [address] [place] [phone] Referring Orthopedics 09/22/23 Copy Director Relationship Specialty Start Date End Date López Hernandez [address] [place] [address] Referring Orthopedics 09/22/23 Copy Director Relationship Specialty Start Date End Date Jack Priest CNP [address] [place] [address]25 PCP - General Family Medicine 11/05/23 López Hernandez [address] [place] [address] Referring Orthopedics 09/22/23 Copy Director Relationship Specialty Start Date End Date Jack Priest CNP [address] [place] [address]206 PCP - General Family Medicine 11/05/23 Lópze Hernandez [address] [place] [address] Referring Orthopedics 09/22/23 Copy Director Relationship Specialty Start Date End Date Jack Priest CNP [address] [place] [address] 89480 PCP - General Family Medicine 11/05/23 López Hernandez [address] [place] [address] Referring Orthopedics 09/22/23 Copy Director Relationship Specialty Start Date End Date Jack Priest CNP [address] [place] [address] 29885 PCP - General Family Medicine 11/05/23 López Hernanedz [address] [place] [address] Referring Orthopedics 09/22/23 Copy Director Relationship Specialty Start Date End Date Jack Priest CNP [address] [place] [address] 23698 PCP - General Family Medicine 11/05/23 López Hernandez [address] [place] [address] Referring Orthopedics 09/22/23 Copy Director Relationship Specialty Start Date End Date Jack Priest CNP [address] [place] [address] 30859 PCP - General Family Medicine 11/05/23 López Hernandez [address] [place] [address] Referring Orthopedics 09/22/23 Copy Director Relationship Specialty Start Date End Date Jack Priest CNP [address] [place] [address] 70284 PCP - General Family Medicine 11/05/23 López Hernandez [address] [place] [phone] Referring Orthopedics 09/22/23 Copy Director Relationship Specialty Start Date End Date Jack Priest CNP [address] [place] [address]79 PCP - General Family Medicine 11/05/23 López Hernandez [address] [place] [address] Referring Orthopedics 09/22/23 Copy Director Relationship Specialty Start Date End Date Jack Priest CNP [address] [place] [address] 11916 PCP - General Family Medicine 11/05/23 López Hernandez [address] [place] [address] Referring Orthopedics 09/22/23 Copy Director Relationship Specialty Start Date End Date Jack Priest CNP [address] [place] [address] 46853 PCP - General Family Medicine 11/05/23 López Hernandez [address] [place] [address] Referring Orthopedics 09/22/23 Copy Director Relationship Specialty Start Date End Date Jack Priest CNP [address] [place] [address] PCP - General Family Medicine 11/05/23 López Hernandez [address] [place] [phone] Referring Orthopedics 09/22/23 Copy Director Relationship Specialty Start Date End Date Jack Priest CNP [address] [place] [address] 73924 PCP - General Family Medicine 11/05/23 López Hernandez [address] [place] [phone] Referring Orthopedics 09/22/23 Copy Director Relationship Specialty Start Date End Date Jack Priest CNP [address] [place] [address] 73368 PCP - General Family Medicine 11/05/23 López Hernandez [address] [place] [phone] Referring Orthopedics 09/22/23 Copy Director Relationship Specialty Start Date End Date Jack Priest CNP [address] [place] [address] 77530 PCP - General Family Medicine 11/05/23 López Hernandez [address] [place] [phone] Referring Orthopedics 09/22/23 Copy Director Relationship Specialty Start Date End Date Jack Priest CNP 0 [facility] [place] [address] PCP - General Family Medicine 11/05/23 López Hernandez [address] [place] [phone] Referring Orthopedics 09/22/23 Copy Director Relationship Specialty Start Date End Date Jack Priest CNP [address] [facility] [place] [address] PCP - General Family Medicine 11/05/23 López Hernandez [address] [place] [address] Referring Orthopedics 09/22/23 Copy Director Relationship Specialty Start Date End Date Jack Priest CNP [address] [place] [address] 07865 PCP - General Family Medicine 11/05/23 López Hernandez [address] [place] [address] Referring Orthopedics 09/22/23 Copy Director Relationship Specialty Start Date End Date Jack Priest CNP [address] [place] [address] 08015 PCP - General Family Medicine 11/05/23 López Hernandez [address] [place] [phone] Referring Orthopedics 09/22/23 Copy Director Relationship Specialty Start Date End Date Jack Priest CNP [address] [place] [address] 54045 PCP - General Family Medicine 11/05/23 López Hernandez [address] [place] [address] Referring Orthopedics 09/22/23 Copy Director Relationship Specialty Start Date End Date Jack Priest CNP [address] [place] [address]30 (Fax) PCP - General Family Medicine 11/05/23 López Hernandez [address] [place] [address] Referring Orthopedics 09/22/23 Copy Director Relationship Specialty Start Date End Date Jack Priest CNP [address] [place] [address] 29416 PCP - General Family Medicine 11/05/23 López Hernandez [address] [place] [address] Referring Orthopedics 09/22/23 Copy Director Relationship Specialty Start Date End Date Jack Priest CNP [address] [place] [address] 44190 (Fax) PCP - General Family Medicine 11/05/23 López Hernandez [address] [place] [phone] Referring Orthopedics 09/22/23 Copy Director Relationship Specialty Start Date End Date Jack Priest CNP [address] [place] [address] [place] [address] PCP - General Family Medicine 11/05/23 López Hernandez [address] [place] [address] Referring Orthopedics 09/22/23 Copy Director Relationship Specialty Start Date End Date Jack Priest CNP [address] [place] [address] 89743 PCP - General Family Medicine 11/05/23 López Hernandez [address] [place] [address] Referring Orthopedics 09/22/23 Copy Director Relationship Specialty Start Date End Date Jack Priest CNP [address] [place] [address] 22037 PCP - General Family Medicine 11/05/23 López Hernandez [address] [place] [address] Referring Orthopedics 09/22/23 Copy Director Relationship Specialty Start Date End Date Jack Priest CNP [address] [facility] [place] [address] PCP - General Family Medicine 11/05/23 López Hernandez [address] [place] [phone] Referring Orthopedics 09/22/23 Copy Director Relationship Specialty Start Date End Date Jack Priest CNP [address] [place] [address] [place] [address] PCP - General Family Medicine 11/05/23 López Hernandez [address] [place] [phone] Referring Orthopedics 09/22/23 Ariel White MD [address] [place] [address] 24736 Tire Buffer 02/20/24 Copy Director Relationship Specialty Start Date End Date Jack Priest CNP [address] [place] [address] [place] [address] PCP - General Family Medicine 11/05/23 López Hernandez [address] [place] [phone] Referring Orthopedics 09/22/23 Ariel White MD [address] [place] [address] 11366 Tire Buffer 02/20/24 Copy Director Relationship Specialty Start Date End Date Jack Priest CNP [address] [place] [address] [place] [address] PCP - General Family Medicine 11/05/23 López Hernandez [address] [place] [phone] Referring Orthopedics 09/22/23 Ariel White MD [address] [place] [address] 13719 Tire Buffer 02/20/24 Copy Director Relationship Specialty Start Date End Date Jack Priest CNP [address] [place] [address] 83183 PCP - General Family Medicine 11/05/23 López Hernandez [address] [place] [address] [address] [place] [phone] Referring Orthopedics 09/22/23 Ariel White MD [address] [place] [address] 62257 Tire Buffer 02/20/24 Copy Director Relationship Specialty Start Date End Date Jack Priest CNP [address] [place] [address] [place] [address] PCP - General Family Medicine 11/05/23 López Hernandez [address] [place] [address] Referring Orthopedics 09/22/23 Ariel White MD [address] [place] [address] 34045 Tire Buffer 02/20/24 Copy Director Relationship Specialty Start Date End Date Jack Priest CNP [address] [place] [address] [place] [address] PCP - General Family Medicine 11/05/23 López Hernandez [address] [place] [phone] Referring Orthopedics 09/22/23 Ariel White MD [address] [place] [address] 76267 Tire Buffer 02/20/24 Copy Director Relationship Specialty Start Date End Date Jack Priest CNP [address] [place] [address] [place] [address] PCP - General Family Medicine 11/05/23 López Hernandez [address] [place] [phone] Referring Orthopedics 09/22/23 Ariel White MD [address] [place] [address] [place] [address] Tire Buffer 02/20/24 Copy Director Relationship Specialty Start Date End Date Jack Priest CNP [address] [place] [address] [place] [address] PCP - General Family Medicine 11/05/23 López Hernandez [address] [place] [address] Referring Orthopedics 09/22/23 Ariel White MD [address] [place] [address] 27509 Tire Buffer 02/20/24 Copy Director Relationship Specialty Start Date End Date Jack Priest CNP [address] [place] [address] 97892 PCP - General Family Medicine 11/05/23 López Hernandez [address] [place] [phone] Referring Orthopedics 09/22/23 Ariel White MD [address] [place] [address]3534 Tire Buffer 02/20/24 Copy Director Relationship Specialty Start Date End Date Jack Priest CNP [address] [place] [address] [place] [address] PCP - General Family Medicine 11/05/23 López Hernandez [address] [place] [address] Referring Orthopedics 09/22/23 Ariel White MD [address] [place] [address] 15008 Tire Buffer 02/20/24 Copy Director Relationship Specialty Start Date End Date Jack Priest CNP [address] [place] [address] [place] [address] PCP - General Family Medicine 11/05/23 López Hernandez [address] [facility] [address] [place] [phone] Referring Orthopedics 09/22/23 Ariel White MD [address] [place] [address] 10324 Tire Buffer 02/20/24 Copy Director Relationship Specialty Start Date End Date Jack Priest CNP [address] [place] [address] [place] [address] PCP - General Family Medicine 11/05/23 López Hernandez [address] [place] [phone] Referring Orthopedics 09/22/23 Copy Director Relationship Specialty Start Date End Date Jack Priest APRN-CNP [address] [place] [address] PCP - General 01/13/24 Velma Torres, [facility] [place] [address] Genetic Counselor Genetics 01/14/24 Copy Director Relationship Specialty Start Date End Date Jack Priest APRN-CNP [address] [place] [address] PCP - General 01/13/24 Velma Torres, [facility] [place] [address] Genetic Counselor Genetics 01/14/24 Lisa Almanzar, [facility] [place] [address] Genetic Counselor Genetics 02/15/24 Copy Director Relationship Specialty Start Date End Date Jack Priest CNP [address] [place] [address] [place] [address] PCP - General Family Medicine 11/05/23 López Hernandez [address] [place] [address] [address] [place] [phone] Referring Orthopedics 09/22/23 Ariel White MD [address] [place] [address] [facility] [address] Tire Buffer 02/20/24 Copy Director Relationship Specialty Start Date End Date Jack Priest CNP [address] [place] [address] [place] [address] PCP - General Family Medicine 11/05/23 López Hernandez [address] [place] [phone] Referring Orthopedics 09/22/23 Ariel White MD [address] [place] [address]704 Tire Buffer 02/20/24 Copy Director Relationship Specialty Start Date End Date Jack Priest CNP [address] [place] [address] [place] [address] PCP - General Family Medicine 11/05/23 López Hernandez [address] [place] [address] [address] [place] [phone] Referring Orthopedics 09/22/23 Ariel White MD [address] [place] [address]8927 Tire Buffer 02/20/24 Copy Director Relationship Specialty Start Date End Date Jack Priest CNP [address] [place] [address] [place] [address] PCP - General Family Medicine 11/05/23 López Hernandez [address] [place] [phone] Referring Orthopedics 09/22/23 Ariel White MD [address] [place] [address] 56118 Tire Buffer 02/20/24 Copy Director Relationship Specialty Start Date End Date Jack Priest CNP [address] [place] [address] [place] [address] PCP - General Family Medicine 11/05/23 López Hernandez [address] [place] [address] [address] [place] [address] Referring Orthopedics 09/22/23 Ariel White MD [address] [place] [address] 17894 Tire Buffer 02/20/24 Copy Director Relationship Specialty Start Date End Date Jack Priest CNP [address] [place] [address] [place] [address] PCP - General Family Medicine 11/05/23 López Hernandez [address] [place] [address] [address] [place] [address] Referring Orthopedics 09/22/23 Ariel White MD [address] [place] [address] 62008 Tire Buffer 02/20/24 Copy Director Relationship Specialty Start Date End Date Jack Priest CNP [address] [place] [address] [place] [address] PCP - General Family Medicine 11/05/23 López Hernandez [address] [place] [address] Referring Orthopedics 09/22/23 Ariel White MD [address] [place] [address] 60139 Tire Buffer 02/20/24 Copy Director Relationship Specialty Start Date End Date Jack Priest CNP [address] [place] [address] [place] [address] PCP - General Family Medicine 11/05/23 López Hernandez [address] [place] [phone] Referring Orthopedics 09/22/23 Ariel White MD [address] [place] [address] 11344 Tire Buffer 02/20/24 Copy Director Relationship Specialty Start Date End Date Jack Priest CNP [address] [place] [address] [place] [address] PCP - General Family Medicine 11/05/23 López Hernandez [address] [place] [phone] Referring Orthopedics 09/22/23 Ariel White MD [address] [place] [address] [phone] Tire Buffer 02/20/24 Copy Director Relationship Specialty Start Date End Date Jack Priest CNP [address] [place] [address] [place] [address] PCP - General Family Medicine 11/05/23 López Hernandez [address] [place] [address] [address] [place] [address] Referring Orthopedics 09/22/23 Ariel White MD [address] [place] [address] 16453 Tire Buffer 02/20/24 Copy Director Relationship Specialty Start Date End Date Jack Priest CNP [address] [place] [address] PCP - General Family Medicine 11/05/23 López Hernandez [address] [place] [phone] Referring Orthopedics 09/22/23 Ariel White MD [address] [place] [address] 74103 Tire Buffer 02/20/24 Copy Director Relationship Specialty Start Date End Date Jack Priest CNP [address] [place] [address] [place] [address] PCP - General Family Medicine 11/05/23 López Hernandez [address] [place] [phone] Referring Orthopedics 09/22/23 Ariel White MD [address] [place] [address] 84686 Tire Buffer 02/20/24 Jack Priest CNP [address] [place] [address] [place] [address] Referring Family Medicine 08/25/24 Copy Director Relationship Specialty Start Date End Date Jack Priest CNP [address] [place] [address] [place] [address] PCP - General Family Medicine 11/05/23 López Hernandez [address] [place] [phone] Referring Orthopedics 09/22/23 Ariel White MD [address] [place] [address] 33308 Tire Buffer 02/20/24 Jack Priest CNP [address] [place] [address] [place] [address] Referring Family Medicine 08/25/24 Copy Director Relationship Specialty Start Date End Date Jack Priest CNP [address] [place] [address] [place] [address] PCP - General Family Medicine 11/05/23 López Hernandez [address] [place] [phone] Referring Orthopedics 09/22/23 Ariel White MD [address] [place] [address] 28943 Tire Buffer 02/20/24 Jack Priest CNP [address] [place] [address] Referring Family Medicine 08/25/24 Copy Director Relationship Specialty Start Date End Date Jack Priest CNP [address] [place] [address] PCP - General Family Medicine 11/05/23 López Hernandez [address] [facility] [address] [place] [phone] Referring Orthopedics 09/22/23 Ariel White MD [address] [place] [address] 92139 Tire Buffer 02/20/24 Jack Priest CNP [address] [place] [address] [place] [address] Referring Family Medicine 08/25/24 Copy Director Relationship Specialty Start Date End Date Jack Priest CNP [address] [place] [address] [place] [address] PCP - General Family Medicine 11/05/23 López Hernandez [address] [place] [phone] Referring Orthopedics 09/22/23 Ariel White MD [address] [place] [address] 17928 Tire Buffer 02/20/24 Jack Priest CNP [address] [place] [address] [place] [address] Referring Family Medicine 08/25/24 Copy Director Relationship Specialty Start Date End Date Jack Priest CNP [address] [place] [address] [place] [address] PCP - General Family Medicine 11/05/23 López Hernandez [facility] [place] [phone] Referring Orthopedics 09/22/23 Ariel White MD [address] [place] [address] 45605 Tire Buffer 02/20/24 Jack Priest CNP [facility] [place] [address] Referring Family Medicine 08/25/24 INFORMATION SOURCE (unrecogn ized section and content) DATE CREATED AUTHOR 09/29/2022 [facility] DATE CREATED AUTHOR AUTHOR'S ORGANIZ ATION 04/16/2023 [facility] DATE CREATED AUTHOR AUTHOR'S ORGANIZ ATION 12/27/2023 [facility] DATE CREATED AUTHOR AUTHOR'S ORGANIZ ATION 01/03/2024 [facility] ([place]) DATE CREATED AUTHOR AUTHOR'S ORGANIZ ATION 01/08/2024 [facility] DATE CREATED AUTHOR AUTHOR'S ORGANIZ ATION 03/08/2024 [facility] DATE CREATED AUTHOR AUTHOR'S ORGANIZ ATION 07/13/2024 [facility] DATE CREATED AUTHOR AUTHOR'S ORGANIZ ATION 08/08/2024 [facility] DATE CREATED AUTHOR AUTHOR'S ORGANIZ ATION 09/26/2024 [facility] DATE CREATED AUTHOR AUTHOR'S ORGANIZ ATION 10/15/2024 [facility] DATE CREATED AUTHOR AUTHOR'S ORGANIZ ATION 10/28/2024 [facility] DATE CREATED AUTHOR AUTHOR'S ORGANIZ ATION 10/28/2024 [facility] Reason for Visit (unrecogniz ed section and content) Reason Comments Consult To establish care Specialty Diagnoses / Procedures Referred By Contac t Referred To Contact CT IMAGING Diagnoses Moderate persistent asthma without complication Procedures CT CHEST WO IVCON DIAGNOSTIC COMPUTED TOMOGRAPHY THORAX W/O Jack Cortez MD [facility] [place] [address] [place] [address] Referral ID Status Reason Start Date Expiration Date V isits Requested Visits Authorized [id number] Closed Auto-Generate d Referral 04/04/2023 05/03/2024 1 1 Reason Comments Patient Question Reason Comments FILM REQ-CIUNI Reason Comments New Nodule Specialty Diagnoses / Procedures Referred By Contac t Referred To Contact [facility] Diagnoses Moderate persistent asthma without complication Procedures SPIROMETRY - BASELINE AND POST DILATOR BRNCDILAT RSPSE SPMTRY PRE&POST-BRNCDILAT ADMJack Kwong MD [address] [place] [address] [facility] [place] [address] [place] [address] Referral ID Status Reason Start Date Expiration Date V isits Requested Visits Authorized [id number] Closed Auto-Generate d Referral 04/04/2023 05/03/2024 1 1 Reason Comments Results Reason Comments Appointment Reason Comments New Patient Specialty Diagnoses / Procedures Referred By Contac t Referred To Contact Ent - Otolaryngology Diagnoses Chronic recurrent sinusitis Procedures CONSULT TO ENT OFFICE/OUTPATIENT [facility] MDM 60 MINUTES Yasmine Alberto DO [address] [facility] [address] [place] [phone] Referral ID Status Reason Start Date Expiration Date V isits Requested Visits Authorized [id number] Closed PCP Requested Referral 06/06/2023 06/05/2024 1 1 Reason Comments Pain (foot) Left ankle pain, out er lower x 1 monthStates pain is on and off and worse when its cold Reason Comments New Patient Specialty Diagnoses / Procedures Referred By Contac t Referred To Contact Breast Diseases Diagnoses Cyst of left breast Breast pain Family history of breast cancer Procedures CONSULT TO BREAST CENTER OFFICE/OUTPATIENT [facility] MDM 60-74 MINUTES Lul Carranza APRN.CATHEAD WORKER [address] [place] [address] Referral ID Status Reason Start Date Expiration Date V isits Requested Visits Authorized [id number] Closed PCP Requested Referral 04/26/2023 07/25/2023 1 1 Reason Comments Cough Chest congestion, NV D x2 days Reason Comments Chest Pain Reason Comments Appointment Cancelled Specialty Diagnoses / Procedures Referred By Contac t Referred To Contact [facility] Diagnoses 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 Procedures CONSULT TO PHYSICAL THERAPY PHYSICAL THERAPY EVALUATION HIGH COMPLEX 45 MINS Aury Tristan, DO [address], [place] [address] [facility] [place] [address] [place] [address] Referral ID Status Reason Start Date Expiration Date Visits Requested Visits Authorized [id number] Authorized Auto-Generat ed Referral 05/21/2023 05/20/2024 30 30 Reason Comments Diarrhea Specialty Diagnoses / Procedures Referred By Contac t Referred To Contact Gastroenterology Diagnoses Irritable bowel syndrome with diarrhea Procedures CONSULT TO GASTROENTEROLOGY OFFICE/OUTPATIENT [facility] MDM 60 MINUTES Aury Tristan, DO [address] [place] [address] Referral ID Status Reason Start Date Expiration Date V isits Requested Visits Authorized [id number] Closed PCP Requested Referral 08/06/2023 08/05/2024 1 1 Reason Comments Cough Reason Comments Numbness Tingling New Tingling Reason Comments blister in nose Blister in nose that is spreading to throat and cough x 3 days Reason Comments No Show Reason Onset Date Comments Procedure 10/10/2023 Breath Test - Gl ucose Reason Comments Patient Update Reason Comments Low Back Pain 1 week lower right s [place] into right leg Reason Comments Diarrhea Nausea Reason Comments Nexplanon Insertion Specialty Diagnoses / Procedures Referred By Contac t Referred To Contact [facility] Diagnoses Menorrhagia with regular cycle Procedures NEXPLANON INSERTION ETONOGESTREL IMPLANT SYSTEM INSERT DRUG IMPLANT DEVICE Marilyn Piña APRN.YANET [address] [place] [address] [facility] [address] [place] [address] Referral ID Status Reason Start Date Expiration Date V isits Requested Visits Authorized [id number] Closed Auto-Generate d Referral 12/03/2023 12/02/2024 1 1 Reason Comments Irregular Menstrual Cycle Reason Comments Radiology NM Specialty Diagnoses / Procedures Referred By Contac t Referred To Contact MOLECULAR & FUNCTIONAL IMAGING Diagnoses Nausea Procedures NM GASTRIC EMPTYING SOLID GASTRIC EMPTYING STUDY Mary Murillo PA-C [address] [place] [phone] [facility] [address] [place] [address] Referral ID Status Reason Start Date Expiration Date V isits Requested Visits Authorized [id number] Closed Auto-Generate d Referral 11/21/2023 01/05/2024 1 1 Reason Comments Follow Up Nexplanon Reason Comments PHOTOS TAKEN Reason Comments Consult Bilateral breast red uction Reason Comments abdominal bloating Reason Comments New Patient Evaluation Back Pain Mid to lower - bilat eral - right is worse Reason Comments Pre-Op Exam Reason Comments Wound Check Specialty Diagnoses / Procedures Referred By Contac t Referred To Contact [facility] Diagnoses Macromastia Chronic bilateral low back pain without sciatica Neck pain Intertrigo Procedures REDUCTION OF LARGE BREAST REDUCTION BREAST BILATERAL [facility] [address] [place] [address] Referral ID Status Reason Start Date Expiration Date Visits Re quested Visits Authorized [id number] 1 1 Reason Comments Patient Update missed call Reason Comments Post Op Reason Comments Derm Problem Surgery wounds, on b ilat breasts, steri strips came off both, L breasts oozing at bottom seam Reason Comments Abnormal Lab Reason Comments Orders [facility]/modified barium swallow Reason Comments Sore Throat ST, chest congestion , bodyaches, TEAGUE and chills x 4 days Reason Comments Speech Instrumental Swallow Eval Speech Discharge Specialty Diagnoses / Procedures Referred By Contac t Referred To Contact XR IMAGING Diagnoses Dysphagia, unspecified type Procedures XR MODIFIED BARIUM SWALLOW W SPEECH THERAPY RADIOLOGIC EXAM SWALLOW FUNCTION CONTRAST STUDY Mary Murillo PA-C [address] [place] [address] Xr Imaging [place] [address] Referral ID Status Reason Start Date Expiration Date V isits Requested Visits Authorized [id number] Closed Auto-Generate d Referral 02/21/2024 03/22/2025 1 1 Reason Comments PT Eval Reason Comments Radiology CT Specialty Diagnoses / Procedures Referred By Contac t Referred To Contact CT IMAGING Diagnoses Lung nodules Procedures CT CHEST WO IVCON DIAGNOSTIC COMPUTED TOMOGRAPHY THORAX W/O CNTRST Lul Carranza, VALARIE.CATHEAD WORKER [address] [place] [phone] Imaging [facility] Referral ID Status Reason Start Date Expiration Date V isits Requested Visits Authorized [id number] Closed Auto-Generate d Referral 03/24/2024 05/08/2024 1 1 Reason Comments Physical Therapy Reason Comments Established Patient Reason Comments Nodule Reason Comments Orders Reason Comments New Patient H/o lung nodules, re ferred for possible bronchoscopy Specialty Diagnoses / Procedures Referred By Contac t Referred To Contact Pulmonary Disease Diagnoses Lung nodules Procedures CONSULT TO LUNG NODULE CLINIC OFFICE/OUTPATIENT NEW HIGH MDM 60 MINUTES Lul Carranza, PHARMACY CLERK.CATHEAD WORKER [address] [place] [address] Phone: tel: fax: Referral ID Status Reason Start Date Expiration Date V isits Requested Visits Authorized [id number] Closed PCP Requested Referral 06/27/2024 06/27/2025 1 1 Reason Onset Date Comments Bronchoscopy Scheduling 07/02/2024 Initial Bronch Request Reason Comments Toe Sewer - Other Reason Comments Recheck Reason Comments Consult Reason Comments Hospital F/U Reason Comments High Blood Sugar Reason Comments High Blood Sugar Specialty Diagnoses / Procedures Referred By Contac t Referred To Contact Diagnoses Prediabetes Procedures CONSULT TO DIABETES EDUCATION DSME MEDICAL NUTRITION ASSMT&IVNTJ INDIV EACH 15 [place] MEDICAL NUTRITION ASSMT&IVNTJ INDIV EACH 15 [place] MEDICAL NUTRITION ASSMT&IVNTJ INDIV EACH 15 [place] MEDICAL NUTRITION ASSMT&IVNTJ INDIV EACH 15 [place] Pierce Proctor MD [address] [place] [address] Phone: tel: fax: Referral ID Status Reason Start Date Expiration Date V isits Requested Visits Authorized [id number] Closed PCP Requested Referral 09/15/2024 09/15/2025 1 1 Reason Onset Date Comments Refill Request 09/22/2024 Reason Comments Infection Follow Up Reason Comments Medication Preauthorization semaglutide, weight loss, (WEGOVY) 0.25 mg/0.5 mL pen injector Scheduled Active and Recently Administ ered Medications (unrecognized section and content) Medication Order 01/20/2024 01/21/2024 01/22/2024 acetaminophen 650 mg tab(s) (TYLENOL) (COMPLETED) 650 mg, ORAL, PRE-OP ONCE, 1 dose, On Sun01/22/24 at 0730, If ordered PRN for pain, patient/guardian may elect to receive this medication for higher pain levels INSTEAD of the opioid, if preferred: Yes, Preprocedure 0730 (Given - Provid er: Ara Rubalcava RN) ceFAZolin 2 g in dextrose (iso-osmotic) 50 mL (ANCEF,KEFZOL) (COMPLETED) 2 g, INTRAVENOUS, at 100 mL/hr, Administer over 30 Minutes, PRE-OP ONCE, 1 dose, On Sun01/22/24 at 0730, Plastics Cases - MRSA Negative or Low Risk PRE-OP ANTIBIOTIC ADMINISTER ONLY IN SURGICAL AREA DO NOT ADMINSTER ON THE FLOOR REFRIGERATE, Antimicrobial indication: Prophylaxis, Pharmacist may modify dose per [facility] dose optimization consult agreement: Yes, Preprocedure 0731 (Sent with Pily ent - Provider: Ara Rubalcvaa RN)0738 (Given - Provider: Michelle Moreland APRN.CRNA) Continuous Medication Order 01/20/2024 01/21/2024 01/22/2024 lactated ringers iv infusion (CANCELED) 5-30 mL/hr, INTRAVENOUS, CONTINUOUS, Starting on Sun01/22/24 at 0730, Until Sun01/22/24 at 1002, Preprocedure 0730 (New Bag/Syring e/Bottle - Provider: Ara Rubalcava RN)0734 (Continued by Anesthesia - Provider: Michelle Moreland APRN.CRNA)0945 (Stopped - Provider: Michelle Moreland APRN.CRNA - Comment: Switch to gravity)0946 (New Bag/Syringe/Bottle - Provider: Michelle Moreland APRN.CRNA)1015 (Infusion Complete - Provider: Michelle Moreland APRN.CRNA) lactated ringers iv infusion 100 mL/hr, INTRAVENOUS, CONTINUOUS, Starting on Sun01/22/24 at 1100, Until Sun01/23/24 at 0304 1030 (Rate Verify - Provider: Wero Pinto RN) lactated ringers iv infusion 100 mL/hr, INTRAVENOUS, CONTINUOUS, Starting on Sun01/22/24 at 1130, Until Sun01/23/24 at 0304 1130 (Due) PRN Medication Order 01/20/2024 01/21/2024 01/22/2024 bupivacaine (PF) 0.25 % (2.5 mg/mL) 30 mL, BUPivacaine liposome (PF) 20 mL in NaCl (PF) 0.9% 10 mL (CANCELED) X (OR/PROCEDURE) PRN, Starting on Sun01/22/24 at 0804, Until Sun01/22/24 at 1040, Intraprocedure 0804 (Canceled Entry - Provider: Stacy Segura MD)09 (Given - Provider: Stacy Segura MD)09 (Given - Provider: Stacy Segura MD) diphenhydrAMINE 50 mg injection (BENADRYL) (COMPLETED) 50 mg, INTRAVENOUS, NEEDED, 1 dose, Starting on Sun01/22/24 at 1049, Until Sun01/22/24 at 1100, Nausea/Vomiting - Second Line - Parenteral 1100 (Given - Provid er: Wero Pinto RN) diphenhydrAMINE 50 mg injection (BENADRYL) 50 mg, INTRAVENOUS, NEEDED, 1 dose, Starting on Sun01/22/24 at 1105, Until Sun01/23/24 at 0304, Nausea/Vomiting - Second Line - Parenteral HYDROmorphone 0.2 mg injection (DILAUDID) 0.2 mg, INTRAVENOUS, NEEDED, Starting on Sun01/22/24 at 1105, Until Sun01/23/24 at 0304, FIRST LINE THERAPY for moderate or severe pain, FIRST LINE THERAPY Every 15 minutes to Total Dose 0.4mg Hold for respiratory rate less then 12 USE FOR MODERATE PAIN ONLY IF PATIENT IS UNABLE TO TOLERATE ORAL THERAPY Caution: IV hydromorphone is approximately 8 times MORE POTENT than IV morphine. For example, hydromorphone 1mg IV = morphine 8mg IV 1108 (Given - Provid er: Wero Pinto RN) HYDROmorphone 0.5 mg injection (DILAUDID) 0.5 mg, INTRAVENOUS, EVERY 10 MINUTES NEEDED, 4 doses, Starting on Sun01/22/24 at 1105, Until Sun01/23/24 at 0304, SECOND LINE THERAPY for moderate or severe pain, Caution: IV hydromorphone is approximately 8 times MORE POTENT than IV morphine. For example, hydromorphone 1mg IV = morphine 8mg IV 1115 (Not Given - Pr ovider: Wero Pinto RN - Reason: Previously Given/Taken) NaCl 0.9% irrigation solution (CANCELED) X (OR/PROCEDURE) PRN, Starting on Sun01/22/24 at 0805, Until Sun01/22/24 at 1040, Intraprocedure 0805 (Given - Provid er: Stacy Segura MD - Comment: on back table) ondansetron (PF) 4 mg injection (ZOFRAN) 4 mg, INTRAVENOUS, NEEDED, 1 dose, Starting on Sun01/22/24 at 1049, Until Sun01/23/24 at 0304, Nausea/Vomiting - First Line - Parenteral ondansetron (PF) 4 mg injection (ZOFRAN) 4 mg, INTRAVENOUS, NEEDED, 1 dose, Starting on Sun01/22/24 at 1105, Until Sun01/23/24 at 0304, Nausea/Vomiting - First Line - Parenteral oxyCODONE IR 5-10 mg tab(s) (ROXICODONE) 5-10 mg, ORAL, NEEDED, 1 dose, Starting on Sun01/22/24 at 1105, Until Sun01/23/24 at 0304, Moderate Pain (4-6) - Enteral 1100 (Incomplete - P rovider: Wero Pinto RN) oxyCODONE IR 5-10 mg tab(s) (ROXICODONE) (COMPLETED) 5-10 mg, ORAL, NEEDED, 1 dose, Starting on Sun01/22/24 at 1105, Until Sun01/22/24 at 1135, Moderate Pain (4-6) - Enteral 1135 (Given - Provid er: Wero Pinto RN) FOR RECORDS PERTAINING TO PATIENTS WHO ARE OR HAVE BEEN ENROLLED IN A CHEMICAL DEPENDENCY/SUBSTANCEABUSE PROGRAM, SOME INFORMATION MAY BE OMITTED. This clinical summary was aggregated from multiple sources. Caution should be exercised in using it in the provision of clinical care. This summary normalizes information from multiple sources, and as a consequence, information in this document may materially change the coding, format and clinical context of patient data. In addition, data may be omitted in some cases. CLINICAL DECISIONS SHOULD BE BASED ON THE PRIMARY CLINICAL RECORDS. [facility]. provides no warranty or guarantee of the accuracy or completeness of information in this document.
[2024-10-29] MEDS: Diphth,Pertuss(Acell),Tet Vac 0.5 ML Vial IM (23:36)
[2024-10-29 23:38] VITALS: BP 120/71; PULSE 83; RESP 18; TEMP 36.8; O2SAT 99
== END 2024-10-29 23:53 | disposition home or self-care (01) ==
PROVIDERS: Emergency Provider Emergency Medicine; PCP Registered Nurse; Visit Provider Emergency Medicine
DX: S40.812A Abrasion of left upper arm, initial encounter (principal); Z90.710 Acquired absence of both cervix and uterus; Z23 Encounter for immunization; Z90.49 Acquired absence of other specified parts of digestive tract; Z99.89 Dependence on other enabling machines and devices; G47.30 Sleep apnea, unspecified; N39.44 Nocturnal enuresis; W20.8XXA Other cause of strike by thrown, projected or falling object, initial encounter; Y92.015 Private garage of single-family (private) house as the place of occurrence of the external cause
CPT/HCPCS: 90471; 90715; 97110; 99282

== ENCOUNTER → 2024-11-10 | Outpatient (CLI) | payer MEDICAID, SELFPAY ==
[2024-11-10 18:30] LABS: Anion Gap 12 (5-15); BUN 14 mg/dL (4-19); BUN/Creat Ratio 15.3 RATIO (10-20); Calcium,Total 9.4 mg/dL (7.6-11.0); Carbon Dioxide 24.1 mmol/L (21.0-32.0); Chloride 104 mmol/L (98-108); Creatinine, Serum 0.89 mg/dL (0.70-1.20); EST Glomerular Filtration Rate 92 (>60); Glucose 95 mg/dL (70-99); Potassium 4.5 mmol/L (3.3-5.1); Sodium Level 140 mmol/L (133-145)
== END | disposition home or self-care (01) ==
LOC: MTLAB 13:57
PROVIDERS: PCP Registered Nurse; Referring Provider Urology; Visit Provider Urology
DX: N39.44 Nocturnal enuresis (principal); M54.50 Low back pain, unspecified
CPT/HCPCS: 36415; 80048; 97110

== ENCOUNTER → 2024-11-14 | Outpatient (CLI) | payer MEDICAID, SELFPAY ==
[2024-11-14 18:41] LABS: Anion Gap 11 (5-15); BUN 13 mg/dL (4-19); Calcium,Total 9.1 mg/dL (7.6-11.0); Carbon Dioxide 23.7 mmol/L (21.0-32.0); Chloride 103 mmol/L (98-108); Creatinine, Serum 0.71 mg/dL (0.70-1.20); EST Glomerular Filtration Rate 122 (>60); Glucose 100 mg/dL (70-99); Potassium 3.9 mmol/L (3.3-5.1); Sodium Level 137 mmol/L (133-145)
== END | disposition home or self-care (01) ==
LOC: MTLAB 13:51
PROVIDERS: PCP Registered Nurse; Referring Provider Urology; Visit Provider Urology
DX: N39.44 Nocturnal enuresis (principal)
CPT/HCPCS: 36415; 80048

== ENCOUNTER 2024-12-09 12:30 | Outpatient (RCR) | payer MEDICAID, SELFPAY ==
--- NOTE | 2024-08-22 15:06 | HP.PTEVAL_ITS ---
Patient's Visit Information Visit Information Visit Information: MATT DRUMMOND is a 24 year old F referred to Physical Therapy by ORNI Beatty with a diagnosis of LBP. Date of Evaluation: 08/22/24 Physical Therapist: Evans Matthews, PT, ATC Visit Plan Frequency: 2x /Week Duration: 4-6 Weeks Plan: L/S stab ex's, L LE strengthening, gait training, balance training, and HEP Subjective Subjective: Pt reports she was hospitalized 07/21-07/29 secondary to having histoplasmosis. Pt notes she had a fever and was very ill at that time. Pt notes she was in the hospital and never got out of her bed. Pt notes this resulted in her having severe LBP. P reports she has been treated in the past for LBP here at [facility], which always made her feel better. Pt notes she feels like she always gets better with PT, but then other things like surgeries come up and she regresses. Pt notes she has a very difficult time with trying to stand or ambu late for a long distance. Pt reports she doesn't have any tingling or numbness in her LE's at this time, but has a burning sensation that goes down her L LE which she believes is due to the weather. Pt denies any recent Dx tests for her LB. 4/10 pain while sitting here at rest, 8/10 at worst (when she ambulates a lot). Pt report sig sleep difficulty secondary to pain. Pain LBP: Pain Intensity (Out of 10): 4 Pain Intensity Range: 8 Objective Objective: Neuro: B LE sensation is WNL to light touch MMT: L knee flex and ext= 4/5. All other B LE MMT 5/5 throughout ROM: Pt has moderate L/S ext ROM deficits. All other B LE ROM is WNL Repeated movements: Unable to assess secondary to pain Gait: Pt is able to ambulate 340 feet until having to sit down secondary to pain Balance/Special Test Scores Oswestry Low Back Score: 23 Goals Goal 1:: Decrease L LE radiculaopathy x 50% to aid with ambulation Goal Time Frame: 4-6 Weeks Goal 2:: Decrease LBP x 50% to aid with sleep Goal Time Frame: 4-6 Weeks Goal 3:: Increase L LE strength x 1 grade to aid with stair negotiation Goal Time Frame: 4-6 Weeks Goal 4:: I with HEP Goal Time Frame: 2-4 Weeks Rehabilitation Potential Physical Therapy Diagnosis: Pt has LBP, difficulty with ambulation, and L LE radiculopathy secondary to deg changes Rehabilitation Potential: Good Anticipated Interventions Patient/Client Instruction: Educate patient on: Condition and Plan of Care For the Purpose of:: To improve self management Therapeutic Exercise to Include: Strength training, Endurance training, Balance training, Postural training, Flexibilty training, Gait and locomotor training and Dynamic Lumbar Stabilization For the Purpose of:: To decrease pain, To increase ROM and To improve muscle performance and motor function Text: Thank you for the opportunity to evaluate your patient. For Medicare and Medicare HMO plans, please review the plan of care and approve it. It will need to be FAXED BACK to us at [phone] for Medicare purposes. For Medicare only, by signing this I certify the plan of care. Please let me know if there are questions or concerns regarding this plan of care. Physician Signature: Date:
--- NOTE | 2024-10-10 14:22 | HP.PTREVAL_ITS ---
Re-Evaluation Intro: Evelyne Cruz, SOFTWARE ENGINEER BACKEND-C, It has been my pleasure to treat MATT DRUMMOND over the last 13 visits for LBP. Please see the progress note below for an update on the physical therapy plan of care! Subjective Subjective: Pt reports she is feeling better, but is still very limited by her pain Objective Objective/Function: LBP ranges from 5-6/10 Pt reports 20% improvement with L LE radiculopathy MMT: R LE is 5/5 throughout, while L LE is 4/5 throughout Pt is improving slowly, but still lacks functional LE strength and is limited with LBP and L LE radiculopathy at this time. Plan Plan Plan: Attempt to get 12 more visits approved to focus on core strengthening and B LE strengthening Balance/Gait/Functional tests Balance/Special Test Scores Oswestry Low Back Score: 19 Goals Goals Goal 1:: Decrease L LE radiculaopathy x 50% to aid with ambulation Goal Time Frame: 4-6 Weeks Goal Progress: Progressing Goal 2:: Decrease LBP x 50% to aid with sleep Goal Time Frame: 4-6 Weeks Goal Progress: Progressing Goal 3:: Increase L LE strength x 1 grade to aid with stair negotiation Goal Time Frame: 4-6 Weeks Goal 4:: I with HEP Goal Time Frame: 2-4 Weeks Anticipated Interventions Anticipated Interventions Patient/Client Instruction: Educate patient on: Condition and Plan of Care For the Purpose of:: To improve self management Therapeutic Exercise to Include: Strength training, Endurance training, Balance training, Postural training, Flexibilty training, Gait and locomotor training and Dynamic Lumbar Stabilization For the Purpose of:: To decrease pain, To increase ROM and To improve muscle performance and motor function Re-Evaluation Ending Re-evaluation ending: Please do not hesitate to contact me at [phone] by phone or Fax: if you have questions or concerns regarding this new plan of care! Sincerely, Evans Matthews, PT, ATC
--- NOTE | 2024-11-24 14:18 | HP.PTREVAL ---
Re-Evaluation Intro: Evelyne Cruz, ALONZO-C, It has been my pleasure to treat MATT DRUMMOND over the last 23 visits for LBP. Please see the progress note below for an update on the physical therapy plan of care! Subjective Subjective: I have made a lot of improvement Objective Objective/Function: LBP is 3/10 L LE radiculopathy only occurs once per week on average L LE MMT: Knee flexion and extension are 4/5 and painful. All other measurements 5/5 throughout Pt is progressing well toward Rx goals at this time Plan Plan Plan: 11/24/24- Continue to progress core strengthening and L LE strengthening at this time. Balance/Gait/Functional tests Balance/Special Test Scores Oswestry Low Back Score: 19 Goals Goals Goal 1:: Decrease L LE radiculaopathy x 50% to aid with ambulation Goal Time Frame: 4-6 Weeks Goal Progress: Progressing Goal 2:: Decrease LBP x 50% to aid with sleep Goal Time Frame: 4-6 Weeks Goal Progress: Progressing Goal 3:: Increase L LE strength x 1 grade to aid with stair negotiation Goal Time Frame: 4-6 Weeks Goal Progress: Progressing Goal 4:: I with HEP Goal Time Frame: 2-4 Weeks Goal Progress: Goal Met Anticipated Interventions Anticipated Interventions Patient/Client Instruction: Educate patient on: Condition and Plan of Care For the Purpose of:: To improve self management Therapeutic Exercise to Include: Strength training, Endurance training, Balance training, Postural training, Flexibilty training, Gait and locomotor training and Dynamic Lumbar Stabilization For the Purpose of:: To decrease pain, To increase ROM and To improve muscle performance and motor function Re-Evaluation Ending Re-evaluation ending: Please do not hesitate to contact me at [phone] by phone or if you have questions or concerns regarding this new plan of care! Sincerely, Evans Matthews, PT, ATC
--- NOTE | 2024-11-24 14:25 | HP.PTREVAL ---
Re-Evaluation Intro: Evelyne Cruz, ALONZO-C, It has been my pleasure to treat MATT DRUMMOND over the last 23 visits for LBP. Please see the progress note below for an update on the physical therapy plan of care! Subjective Subjective: I have made a lot of improvement Objective Objective/Function: LBP is 3/10 L LE radiculopathy only occurs once per week on average L LE MMT: Knee flexion and extension are 4/5 and painful. All other measurements 5/5 throughout Pt is progressing well toward Rx goals at this time Plan Plan Plan: 11/24/24- Continue to progress core strengthening and L LE strengthening at this time. Balance/Gait/Functional tests Balance/Special Test Scores Oswestry Low Back Score: 19 Goals Goals Goal 1:: Decrease L LE radiculaopathy x 50% to aid with ambulation Goal Time Frame: 4-6 Weeks Goal Progress: Progressing Goal 2:: Decrease LBP x 50% to aid with sleep Goal Time Frame: 4-6 Weeks Goal Progress: Progressing Goal 3:: Increase L LE strength x 1 grade to aid with stair negotiation Goal Time Frame: 4-6 Weeks Goal Progress: Progressing Goal 4:: I with HEP Goal Time Frame: 2-4 Weeks Goal Progress: Goal Met Anticipated Interventions Anticipated Interventions Patient/Client Instruction: Educate patient on: Condition and Plan of Care For the Purpose of:: To improve self management Therapeutic Exercise to Include: Strength training, Endurance training, Balance training, Postural training, Flexibilty training, Gait and locomotor training and Dynamic Lumbar Stabilization For the Purpose of:: To decrease pain, To increase ROM and To improve muscle performance and motor function Re-Evaluation Ending Re-evaluation ending: Please do not hesitate to contact me at [phone] by phone or if you have questions or concerns regarding this new plan of care! Sincerely, Evans Matthews, PT, ATC
--- NOTE | 2024-12-09 14:02 | HP.PTDCSUM ---
Discharge Summary D/C summary: It has been my pleasure to treat MATT DRUMMOND referred by Evelyne Cruz NP-C, with the diagnosis of LBP for a total of 25 visit(s). Discharge Date: Please see the following information for a summary of their discharge status. Subjective Subjective: Pt reports she is still limited with prolonged standing and ambulation Pain LBP: Pain Intensity (Out of 10): 5 L knee: Pain Intensity (Out of 10): 2 Overall Improvement % Improvement: 49 Objective Objective/Function: Pt reports she still has occasional L LE radiculopathy with prolonged standing and ambulation Pt reports pain will still awaken her at night, but she is able to sleep longer until the pain occurs Pt is I with HEP Goals Goal 1:: Decrease L LE radiculaopathy x 50% to aid with ambulation Goal Progress: Progressing Goal 2:: Decrease LBP x 50% to aid with sleep Goal Progress: Progressing Goal 3:: Increase L LE strength x 1 grade to aid with stair negotiation Goal Progress: Progressing Goal 4:: I with HEP Goal Progress: Goal Met Plan Plan: Discontinue to HEP D/C Information d/c sentence: If there are questions or concerns regarding this patient's physical therapy, please feel free to call me at [phone]. Thank you for the referral of this patient. Sincerely, Evans Matthews, PT, ATC Balance/Gait/Functional tests Balance/Special Test Scores Oswestry Low Back Score: 18 Improvement % Improvement: 49
== END 2024-12-09 19:00 | disposition home or self-care (01) ==
LOC: PT 12:30
PROVIDERS: PCP Registered Nurse; Referring Provider Registered Nurse; Visit Provider Registered Nurse
DX: M54.50 Low back pain, unspecified (principal)
CPT/HCPCS: 97110; 97161; 97530

== ENCOUNTER 2025-01-26 08:00 | Outpatient (RCR) | payer MEDICAID, SELFPAY ==
--- NOTE | 2025-01-26 09:05 | BH.SGPN.GN ---
Behaviors/Verbalizations/Mental Status: [] Eye contact is good. Motor activity is appropriate. Appearance is casual. Speech is Appropriate. Mood is depressed and anxious. Affect is congruent. Thoughts are linear and logical. No evidence of psychosis. Reviewed daily check in sheet and no reports of suicidal ideations or intent. Client Response/Progress/Benefit: [] Pt did not participate in group discussions. Declined to share however was attentive. Daily symptom tracker notes 4/5 for anxiety and 1/5 for self-harm urges. Today was pt's first day in IOP level of care. No progress noted. Benefited from group support, encouragement and feedback on what to expect for first day/week in IOP level of care. Will continue in IOP to prevent decompensation, increase healthy coping, and improve functioning. Narrative Note: []
--- NOTE | 2025-01-26 10:10 | BH.SGPN.GN ---
Behaviors/Verbalizations/Mental Status: []Pt alert and oriented, casually dressed and groomed. Eye contact good. Motor activity restless. Speech within normal limits. Affect constricted, mood anxious. Thoughts linear, logical, no signs of hallucinations or delusions. Client Response/Progress/Benefit: [] Pt was passive, but pt took notes. Attentive during psychoeducation. Pt engaged during interactive discussion in which the group defined self-care and discussed its benefits. Group discussed barriers and benefits to self-care. Identified benefits as being more productive, feeling more grounded, feeling happier, less irritability, and being more capable. Pt participated in small groups where they worked to identify and challenged common self-care ?myths?. Benefited from increased awareness of self-care, its benefits, and the consequences of not utilizing self-care strategies. Pt connected with myths of self-care being selfish and being too expensive. Will continue IOP tx to prevent decompensation, improve daily functioning, and gain healthy coping skills. ??? Narrative Note: []
--- NOTE | 2025-01-26 11:10 | BH.SGPN.GN ---
Behaviors/Verbalizations/Mental Status: []Pt alert and oriented, casually dressed and groomed. Eye contact good. Motor activity appropriate. Speech within normal limits. Affect congruent, mood euthymic. Thoughts linear, logical, no signs of hallucinations or delusions. Client Response/Progress/Benefit: []Pt engaged participant AEB completing self-assessment worksheet and providing input throughout discussion. Participated in group discussion on the various areas of self-care. Pt completed worksheet identifying current self-care practices and what self-care activities pt wants to start using. Pt engaged in self-reflection activity in which pt's were asked to identify one area of self-care they would like to improve upon. Appeared to benefit from completing the self-care evaluation and gaining insights into current self-care practices, as well as identifying areas in which pt ?would like to improve upon.?Will continue IOP to challenge distortions, improve confidence, and prevent decompensation.
--- NOTE | 2025-01-26 11:10 | BH.SGPN.GN ---
Behaviors/Verbalizations/Mental Status: []Client alert and oriented, casual appearance. Eye contact fair. Motor activity appropriate. Speech within normal limits. Affect congruent, mood dysthymic and anxious. Thoughts linear, logical, no signs of hallucinations or delusions. Client Response/Progress/Benefit: [] Pt engaged participant AEB completing self-assessment worksheet and providing input throughout discussion. Pt completed worksheet identifying current self-care practices and what self-care activities pt wants to start using. Pt selected personal self-care to begin practicing more consistently. Pt plans to do this by focusing on her personal hygiene more consistently. Appeared to benefit from completing the self-care evaluation and gaining insights into current self-care practices, as well as identifying areas in which Pt would like to improve upon. Pt will continue IOP tx to improve distress tolerance, improve confidence, and prevent decompensation.
--- NOTE | 2025-01-26 11:56 | BH.MDN_ITS ---
Multi-Disciplinary Note Note 30-min Individual: Time Started:: 09:05 Date: 01/26/25 Purpose of session/treatment goals addressed:: To gather information on pt's current stressors, symptoms, triggers, history, and tx goals. Another goal was to build rapport and provide emotional support. Eye Contact:: Good Motor Activity:: Appropriate Appearance:: Casual Speech:: Appropriate Mood:: Anxious Affect:: Congruent Thoughts:: Linear, Logical and No evidence of hallucinations/delusions noted Staff Interventions:: psychoeducation on: (learned coping behaviors), rapport building, strengths perspective, treatment planning and completed risk assessment / safety planning Client Response:: Pt responded well to session, open to meeting with therapist. Pt shared group therapy is new for her, so she is a little anxious, but wants to work on feeling more comfortable in social settings. Pt stated she has been coping with anxiety, ptsd, and mood dysregulation for much of her life. Pt has a significant childhood trauma hx and has nightmares, flashbacks, difficulties trusting others -specifically men, and emotional immaturity. Pt is currently connected with an outpatient therapist, [facility] for the past year and reports this has been beneficial. Stated that in the past year she has made progress on better managing her emotions and engaging in more age appropriate activities. Pt reports that a year ago she had been using a pacifier and blanket as security/comfort items. Pt now carries a blanket but no longer utilizes the pacifier. Noted that they have also been working on improving self-confidence. Pt additionally is connected with a leather case finisher through [employer] [facility] Pt was referred to [facility] tx due to symptoms seeing limited improvements in the traditional outpatient environment and pt believing she would benefit from the group environment. Pt endorses ongoing sx of anxiety, avoidance, mood dysregulation, difficulties completing hygiene routine, nightmares, personalizat ion, and issues with self-harm via scratching self when feeling overwhelmed. Pt reports current sx are impacting her ability to make friends, consistently attend work, and complete ADLs. Pt wants to work on managing her symptoms and becoming more confident in handling her emotions. Risks/Concerns:: Pt denies any suicidal ideation, plan, or intent. Pt denies any thoughts of . Progress Toward Goals/Plan:: Pt's first day of [facility] tx. Pt reports feeling anxious about group, but pt is open-minded because she acknowledges she needs more than outpatient individual therapy. Pt identified her tx goals as learning how to manage her emotions, be better around people, and manage anxiety. Pt will continue IOP tx to prevent decompensation, improve daily functioning, and gain healthy coping skills. Time Stopped:: 09:26
--- NOTE | 2025-01-26 14:02 | BH.MTP_ITS ---
Master Treatment Plan Patient Information Program Physician:: Dr. Lenora Lopez Primary Therapist:: Estelita HEATH Psychiatric Diagnoses Psychiatric Diagnoses:: PTSD; Generalized Anxiety Disorder Diagnosis Code(s):: F41.1 Estimated LOS Estimated LOS (in weeks):: 8 Problem/Goal #1 Problem/Goal #1 Stated Goal:: Client will increase emotional regulation and reduce intensity and duration of PTSD and Anxiety symptoms Description of Barriers: Pt has a significant trauma history that continues to impact pt's core beliefs and behaviors. Pt is experiencing work and social stressors due to her symptoms. Pt is unable to manage her PTSD sx in adaptive or socially acceptable ways. Functional Impact: PT is a 24 y/o F who presented to [facility] IOP program for further evaluation and treatment of PTSD, borderline personality disorder, and MALORIE. Patient was referred to IOP by [facility] after she inquired about DBT groups. Pt has been struggling with high anxiety recently to the point it has been impacting her ADLs/hygiene, and functioning. Reports she has also been isolating herself from friends and has been scratching herself when overwhelmed. Hx of significant childhood trauma. When she started with [place] counseling she was using a security blanket, pacifier and baby toys but is now only using security blanket. Does note she has had increased thoughts of scratching herself recently as a form of self-harm, occasionally will have suicidal ideation but then will take medicine and goes to bed and it goes away, this happens 1-2 times a week. She reports her sleep is poor and she will get nightmares that wake her up and anxiety and makes it difficult to sleep, she feels she needs to check the door multiple times at night and is very paranoid and hypervigilant. No symptoms consistent with jayna reported, does note she has a lot of checking behaviors but did not note a diagnosis of OCD. Goal Relevant Strengths/Supports: Pt has support from her employer, outpatient providers, and a close friend. Pt is engaged and motivated. Objectives Objective #1: Stated Objective: Client will be able to explain common stress reactions and symptoms related to trauma and learn 2-3 coping skills to manage symptoms. Interventions: Therapist will help client explore personal symptoms and warning signs of stress and trauma. Therapist will teach client coping skills to improve emotional regulation, mindfulness, and distress tolerance. Therapist will help client get connected with additional trauma-focused services, should client agree. Discharge Criteria: Pt will be able to identify her common stress reactions and sx related to trauma, as well as report improved ability to regulate mood and cope with these sx through application of at least 2-3 coping skills. Target Date: 03/11/25 Review Date: 02/19/25 Objective #2: Stated Objective: Pt will improve ability to cope with anxiety and PTSD symptoms and reduce avoidance by setting 1-2 small exposure goals each week and reducing engagement in maladaptive safety behaviors each week. Interventions: Through group and individual therapy, pt will gain skills on distress tolerance and sitting with the uncomfortable. Therapist will help pt set small, realistic exposure goals each week. Therapist will have pt practice these goals both in session and at home. Therapist will provide psychoeducation on anxiety and ptsd including external triggers, internal triggers, safety behaviors, avoidance, and feared consequences. Discharge Criteria: Pt will have accomplished this goal when pt can report accomplishing at least 1 exposure goal per week and can report reduced safety behaviors both at IOP and at home. Target Date: 03/11/25 Review Date: 02/19/25
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
--- NOTE | 2025-01-27 09:00 | BH.SGPN.GN ---
Behaviors/Verbalizations/Mental Status: [] Pt alert and oriented, casually dressed and groomed. Eye contact good. Motor activity appropriate. Speech within normal limits. Affect constricted, mood anxious. Thoughts linear, logical, no signs of hallucinations or delusions. Reviewed pt?s symptom tracker, no risk for suicidal ideation, plan, or intent 01/28/25. Client Response/Progress/Benefit: []Pt was an active participant in group discussions. Attentive. Able to identify mental health wins including ?I showed back up today? after yesterday being pt?s first day. Another win was pt did not self-harm last night.? Pt's stressor today is ?I?m anxious to be here.? The group offered pt suggests managing this stressor and emotional support which pt reported was helpful. Pt is feeling ?anxious? this morning. Pt receptive to feedback from peers. Benefited from group support, encouragement, and feedback. Progress noted. Will continue IOP tx to prevent decompensation, improve daily functioning, and increase distress tolerance skills. Narrative Note: []
--- NOTE | 2025-01-27 10:15 | BH.SGPN.GN ---
Behaviors/Verbalizations/Mental Status: [] Eye contact is good. Motor activity is appropriate. Appearance is casual. Speech is Appropriate. Mood is anxious and irritable. Affect is congruent. Thoughts are linear and logical. No evidence of psychosis. Client Response/Progress/Benefit: [] Pt engaged in session AEB client listening attentively to peers and providing input. Attentive however minimal discussion as group worked on defining?self-confidence?and identifying benefits of?self-confidence which included; increase susan/engagement, improved quality of relationships, improved problem solving, confidence to take risks, and increased sense of self-worth. Attentive during interactive discussion on factors that impact one's self confidence such as trauma, upbringing, economic status, and current/past relationships. Benefited from increased education on?self-confidence?and what effects it. Pt will continue IOP to prevent decompensation, stabilize mood, increase healthy coping, and improve functioning. Narrative Note: []
--- NOTE | 2025-01-27 11:10 | BH.SGPN.GN ---
Behaviors/Verbalizations/Mental Status: [] Client alert and oriented, casually dressed and groomed. Eye contact good. Motor activity appropriate. Speech within normal limits. Affect congruent, mood anxious. Thoughts linear, logical, no signs of hallucinations or delusions. Client Response/Progress/Benefit: [] Pt engaged in session AEB client listening attentively to peers and providing input. Attentive and contributed to discussion as group worked on identifying thought patterns and behaviors that negatively affect self-confidence. Pt identified behaviors that affect their confidence as: lack of self-care and negative self-talk. Engaged in confidence building activity and worked with the group to identify strategies for improving self-confidence. Pt identified plans to begin setting small daily self-care goals as a means of improving own self-confidence. Benefited from increased education on self-confidence building skills. Pt will continue IOP tx to increase self-confidence, improve emotional regulation skills, and prevent decompensation. Narrative Note: []
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
--- NOTE | 2025-01-30 08:26 | BH.DR.ITP ---
Initial Treatment Plan Patient Information Visit Information: ADMISSION DATE: EXPECTED LOS: 6-8 weeks Diagnoses:: PTSD Problems/Symptoms Problem #1:: PTSD Symptom:: recurrent nightmares, dissociation, and avoidance with hypervigilance and difficulty sleeping
--- NOTE | 2025-01-30 08:30 | BH.NA ---
Physical Data Vital Signs Pulse Rate: 87 Blood Pressure: 137/70 Height/Weight Height: 1.6 m Weight:: 94.347 kg Weight in Pounds: 208.0 lbs Current Medication Compliance Medication Compliance Do you take your medication as prescribed?: Yes Functional Assessment Sleep Pattern Describe any problems with sleeping: Client states she has been sleeping about 3 hours per night. Sensory/Communication Assess Communication Problems Do you have difficulty understanding what people are saying?: No Medical Problems/History Respiratory Conditions Respiratory: Asthma and Other (See comments) (NATASHA- has never used a CPAP because she can not find a company to take her insurance to get CPAP machine- states PCP is aware, pulmonary nodule) Neurological Conditions Neurological: Other (See comments) (migraines, post concussion syndrome) Hematologic Conditions Hematologic: Other (See comments) (iron deficiency anemia) Metabolic Conditions Metabolic: Other (See comments) (has had issues with hyperglycemia in the past- had resolved but states her A1C and blood sugars have been higher recently- monitored by PCP) Gastrointestinal Conditions Gastrointestinal: Nausea (chronic- takes Zofran daily) and Other (See comments) (MASLD (metabolic dysfunction associated steatotic liver disease)) Family History Family History Mother Alcohol abuse Breast cancer Hypertension Muscle weakness Substance abuse Father Alcohol abuse Hypertension Grandmother Breast cancer Cancer Sister Hypertension Additional History Additional comments:: histoplasmosis x 2, most recently in July 2024 where she was hospitalized for 2 weeks, PMDD Surgical History Surgical History Have you had any surgeries? If so, list type and date:: Yes (ashish, hysterectomy, breast reduction, cyst removed from finger) Substance Abuse Substance Abuse Please describe substance abuse in the last 30 days:: Client reports alcohol use in the past but denies recent use. Client states she previously used to vape nicotine but does not currently. Client states she has used marijuana gummies in the past but denies recent use. Client denies caffeine use. Mental Status Summary Mental Status Significant Findings/Observations on Appearance and Mood:: Client is alert and oriented x 4. Client is casually groomed. Client is cooperative with assessment. Client makes fair eye contact. Client has fidget toy during assessment that she is constantly swinging in air. Client's voice has normal rate and volume. Client appears mildly anxious. Client has a somewhat restricted affect. Client makes logical associations and has normal processing. Client denies delusions/hallucinations. Client reports chronic SI, but denies active SI or plan or intent. Suicide Assessment Suicidal Ideation Are you currently or have you been suicidal in the past?: Yes Suicidal Intentional Rating Scale (SIRS): Suicidal thoughts (past) (denies current, reports frequent passive SI, denies intent/plan) Physician Notification Past Psychiatric History MH Treatment Hx Past Psychiatric Medications:: Prozac (high doses made her more irritable), Trazodone (only took for 5 days, was suicidal at the time and they took her off Trazodone thinking that was the cause but client states she does not think it was the medication and her psychiatrist has talked about trying Trazodone again to help with sleep) Age of first mental health symptoms: Client states she first tried medication for mental health around age 18, but has been feeling anxious most of her life. Describe (age, circumstance, etc) any past hospitalizations: None- client states she has been to the ER before for stitches due to self harm but states she always lied about what the cause of the injury was and was never hospitalized for self harm Current providers for mental health treatment (counselor, psychiatrist, case coordinator, etc.): Justine Sanabria at [facility] for psychiatry, Asha at 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, [facility] for therapy Fall Risk Assessment Age Age: Less than 60 Mental Status Mental Status: Willing & able to ask for assistance when needed Physical Status Physical Status: No problems Impairments Impairments: None Elimination Elimination: Continent AND independent Gait or Balance Gait or Balance: Walks independently Hx of Falls History of falls in the past 6 months: No known history Medications/Substances Psychotropics:: Antipsychotics Medications/substances used within the past 24 hours or ordered to administer: 1-2 of the medications/substances listed above Total Score Total Points:: 1 RN Summary of Impressions Impressions Recommendations Impressions: Psychiatric Issues: generalized anxiety disorder, borderline personality disorder Level of Care How do the client's current symptoms and functional deficits support need for this level of care?: Client was referred to [facility] after talking with [facility] for mental health. Client states she feels anxious most of the time. Client states she does self-harm at times when she is very anxious, stating she used to cut herself and at times need stitches but currently scratches herself and has no recently required medical care for this. Client also reports isolation and a decreased ability to do ADL's due to mental health. Client states her therapist encouraged IOP due to her self-harm of scratching herself. Client does report chronic SI, but states this is usually passive and she is able to tell herself take your meds and go to sleep when she feels SI coming on. IOP will promote gains and prevent further decompensation while providing social support and skills training. Nutritional Screen Height/Weight Height: 1.6 m Weight:: 94.347 kg Weight in Pounds: 208.0 lbs Nutrition Screening Normal Weight: 99.79 kg Normal/Usual Weight in Pounds: 220.0 lbs Have you lost weight without trying: No (lost weight 6 months ago while in hospital with histoplasmosis, no weight loss recently) Have you been eating poorly because of a decreased appetite: No Recently been on tube feeds, TPN, or have any nutritional access device in place: No Have any large open wounds or wounds that are not healing: No Calculated Weight Change: [id number] Change in weight Score: 1 MST Screening Tool Score: 1
--- NOTE | 2025-01-30 10:15 | BH.SGPN.GN ---
Behaviors/Verbalizations/Mental Status: []Pt alert and oriented, casually dressed and groomed. Eye contact fair. Motor activity appropriate. Speech within normal limits. Affect constricted, mood anxious. Thoughts linear, logical, no signs of hallucinations or delusions. Client Response/Progress/Benefit: [] Pt was attentive during psychoeducation and participated in group activity. Group discussed what influences a person?s perspective and how perspective can positively or negatively impact mental health treatment. Group identified several factors that can influence perspective which include; mood, current stressors, sleep, health, hunger, and several others.?Pt appeared to benefit from increasing awareness of different perspectives and how they can affect mental health. Pt noted that their perspective today is ?more negative. I struggle to feel like I can open up because I?m so anxious and hesitant.? Pt will continue IOP tx to prevent decompensation, gain healthy coping skills, and improve daily functioning. ? Narrative Note: []
[2025-01-30 10:16] VITALS: BP 137/70; PULSE 87
--- NOTE | 2025-01-30 11:10 | BH.SGPN.GN ---
Behaviors/Verbalizations/Mental Status: []Pt alert and oriented, casually dressed and groomed. Eye contact fair. Motor activity appropriate. Speech within normal limits. Affect constricted, mood anxious and depressed. Thoughts linear, logical, no signs of hallucinations or delusions. Client Response/Progress/Benefit: [] Pt was attentive and contributed to group discussion. Pt worked with group to identify strategies that can help with challenging negative perspective. Pt stated she wants to practice dialectical thinking as strategy she can use when her perspective is negative. Benefited from identifying strategies that can help with improving perspective and identifying one strategy to focus on to improve current perspective. Pt will continue IOP tx to improve daily functioning, improve healthy coping skills, and prevent decompensation.
--- NOTE | 2025-02-02 09:05 | BH.SGPN.GN ---
Behaviors/Verbalizations/Mental Status: [] Eye contact is good. Motor activity is appropriate. Appearance is casual. Speech is Appropriate. Mood is depressed. Affect is congruent. Thoughts are linear and logical. No evidence of psychosis. Reviewed daily check in sheet and pt reports 1/5 for suicidal ideations and 0/5 for intent. Client Response/Progress/Benefit: [] Pt participated at times during the group discussions. Attentive. Daily symptom tracker notes 4/5 for depression and 2/5 for self-harm urges. Very brief check-in however this is an improvement from last week when she declined all together. She shared her struggles with mental health and consistent employment. Feeling anxious today. No progress noted. Benefited from group support, encouragement, and feedback. Will continue in IOP to prevent decompensation, stabilize mood, increase healthy coping, and improve functioning. Narrative Note: []
--- NOTE | 2025-02-02 10:10 | BH.SGPN.GN ---
Behaviors/Verbalizations/Mental Status: []Eye contact is fair. Motor activity is appropriate. Appearance is casual. Speech is Appropriate. Mood is anxious. Affect is congruent. Thoughts are linear and logical. No evidence of psychosis. Client Response/Progress/Benefit: []Pt participated in the group discussions AEB providing input and taking notes. Attentive during psychoeducation on SMART Goal Setting. Pt worked with group to identify common barriers to goal setting which included; mental health struggles, energy/motivation, limited support, change to routine, lack or resources, having unrealistic goals, and our internal expectations. Group also identified benefits of goals, which included: promotes a sense of accomplishment, it challenges oneself, can boast confidence, and can cause positive change/growth. Benefited from increased awareness of mental health benefits of goals as well as psychoeducation on SMART goal criteria. Will continue in IOP to improve daily functioning, challenge distorted thoughts, and prevent decompensation.
--- NOTE | 2025-02-02 11:10 | BH.SGPN.GN ---
Behaviors/Verbalizations/Mental Status: []Pt alert and oriented. Appearance is casual, hygiene is appropriate. Eye contact good. Motor activity appropriate. Speech within normal limits. Affect is anxious. Mood is congruent. Thoughts linear, logical, no signs of hallucinations or delusions. Client Response/Progress/Benefit: [] Pt was engaged during discussion and experiential activity. Completed the worksheet challenging them to develop a personal SMART goal. Pt chose a SMART goal to work on coping skills to reduce anxiety while in IOP. Believes this goal will benefit her by increasing her ability to use opposite action and sit with the uncomfortable feelings. Identified obstacles such as forgetting, talking herself out of it, and waiting until it is too late. Brainstormed strategies to help her manage potential barriers. Benefited from this group by developing a short-term SMART goal related to mental health. Will continue IOP to prevent decompensation, improve distress tolerance, and gain healthy coping skills. Narrative Note: []
--- NOTE | 2025-02-03 09:05 | BH.SGPN.GN ---
Behaviors/Verbalizations/Mental Status: [] Pt alert and oriented, casually dressed and groomed. Eye contact fair. Motor activity restless. Speech within normal limits. Affect constricted, mood euthymic. Thoughts linear, logical, no signs of hallucinations or delusions. Reviewed pt?s symptom tracker, no risk for suicidal ideation, plan, or intent 02/03/25. Client Response/Progress/Benefit: []Pt was an active participant in group discussions. Attentive. Able to identify mental health wins including ?finally feeling good after leaving IOP yesterday.? Pt shared she felt proud of herself after the activity yesterday and this led to taking a walk. ?Pt's stressor today is ?bedtime is tough for me, I don?t sleep and then I get anxious.? The group offered pt suggests managing this stressor and emotional support which pt reported was helpful. Pt is feeling ?anxious? this morning. Pt receptive to feedback from peers. Benefited from group support, encouragement, and feedback. Progress noted. Will continue IOP tx to prevent decompensation, improve daily functioning, and increase distress tolerance skills. Narrative Note: []
--- NOTE | 2025-02-03 10:10 | BH.SGPN.GN ---
Behaviors/Verbalizations/Mental Status: []Eye contact is fair. Motor activity is appropriate. Appearance is casual. Speech is Appropriate. Mood is content. Affect is constricted. Thoughts are linear and logical. No evidence of psychosis. Client Response/Progress/Benefit: []Pt was an active participant in group discussions. Attentive during psychoeducation on the 4 communication styles (Passive, Passive-Aggressive, Aggressive, and Assertive) and the obstacles to effective communication. Contributed during interactive discussion on the benefits of communicating effectively. Worked well with peers to identify the benefits and disadvantages to the different communication styles. Pt believes that they are primarily passive or passive-aggressive. Benefited from increased understanding of communication styles and how these can impact effective communication. Will continue in IOP to improve mood stability, challenge negative thoughts, and prevent decompensation. Narrative Note: []
--- NOTE | 2025-02-03 14:51 | BH.MDN_ITS ---
Multi-Disciplinary Note Note 45-min Individual: Time Started:: 11:15 Date: 02/03/25 Purpose of session/treatment goals addressed:: Purpose of session was to assess pt adjustment to treatment, as well as provide psychoeducation on Borderline Personality Disorder and review pt specific sx. Additional purpose was to begin working on distress tolerance skill development Eye Contact:: Good Motor Activity:: Restless Appearance:: Casual (security blanket and teething necklace. No shoes) Speech:: Appropriate Mood:: Anxious Affect:: Congruent Thoughts:: Linear, Logical and No evidence of hallucinations/delusions noted Staff Interventions:: motivational interviewing, psychoeducation on: ( Borderline Personality Disorder, negative core beliefs), CBT techniques, strengths perspective, goal setting and taught coping skills (5-senses) Client Response:: Pt receptive of session, actively engaged throughout. Reports beginning to adjust to the group setting and is finding the structure of the shared environment to be beneficial. Reports challenging herself to step outside her comfort zone and more actively contribute. Went on to express feeling accomplished for note successfully making it through the entirety of process group this morning without leaving. Explained that she struggles with being in close proximity to men as well as listening to others share personal information. Pt reported that sitting in the corner so she could see the whole room was helpful for her this morning. Went on to discuss pt?s diagnosis of Borderline Personality Disorder and determine pt?s understanding of this diagnosis. Pt reported limited understanding and denies having prior psychoeducation. Receptive of psychoeducation reviewing diagnostic criteria, common characteristics, and etiology. Pt provided insight into her own trauma hx and the impact it has had on her in adulthood. She identified various characteristics of BPD that she identifies with, as well as completed the Borderline Personality Disorder Subtype Assessment. Shared wanting to focus on improving her ability to cope with distress and feel less anxious in situations in which she feels vulnerable. Reviewed areas of anxiety most significantly impacting her at present. Pt reports difficulties taking showers, sitting next to men, taking walks alone, sitting with her back exposed to open areas, and several others. Described often disassociating in moments of distress as well and is hopeful she will be able to reduce the frequency of these episodes as well. Receptive of reviewing the 5-senses grounding skill and reports willingness to practice this over the next week. Pt additionally receptive of going for a walk with this therapist to begin exposure therapy with the goal of walking around the block independently. Risks/Concerns:: Pt denies any current suicidal ideations, plan, or intent. Pt denies any thoughts of . Progress Toward Goals/Plan:: Progress limited, pt 2nd week in tx. Pt does report improved comfort in group setting and was able to remain in group room entire process group for the first time today. Noted finding the shared environment to be beneficial and supportive as well. Pt went on to note showering yesterday which is progress as she struggles with significant anxiety surrounding this. More open and engaged in individual session than previous session as well. Pt continues to endorse significant anxiety impacting daily functioning and relationships. Willing to begin working on ERP therapy to begin addressing this. Recommended continued IOP tx to improve mood stability, increase distress tolerance skill development, and prevent decompensation. Time Stopped:: 12:03
--- NOTE | 2025-02-05 09:05 | BH.SGPN.GN ---
Behaviors/Verbalizations/Mental Status: [] Eye contact is good. Motor activity is appropriate. Appearance is casual. Speech is Appropriate. Mood is euthymic. Affect is full. Thoughts are linear and logical. No evidence of psychosis. Reviewed daily check in sheet and no reports of suicidal ideations or intent. Client Response/Progress/Benefit: [] Pt participated when prompted. Attentive. Daily symptom tracker notes 07/23 for anxiety. Able to identify mental health wins and healthy habits. ? I?ve been in a good mood all week?. Set goals and is following though. Benefiting group support and encouragement. ? I survived two weeks of group?. Feeling ? hopeful?. Progress noted. Shared progress and elaborated slightly on the impact that mental health has had on her overall functioning in recent months. Will continue in IOP to maintain safety, prevent decompensation, increase healthy coping, and improve functioning. Narrative Note: []
--- NOTE | 2025-02-05 10:10 | BH.SGPN.GN ---
Behaviors/Verbalizations/Mental Status: [] Eye contact is fair. Motor activity is appropriate. Appearance is casual. Speech is Appropriate. Mood is anxious. Affect is constricted. Thoughts are linear and logical. No evidence of psychosis. Client Response/Progress/Benefit: [] Pt was engaged and participating throughout, providing input and taking notes. Attentive during psychoeducation on anxiety and cognitive triangle. Participated in an interactive discussion on defining anxiety and identifying cognitive and physiological symptoms of anxiety. The group discussed helpful vs harmful anxiety. Pt identified their physical/physiological signs of anxiety which includes: itching skin, sick to stomach, high heart rate, and sensory issues. Benefited from increased awareness and insight on anxiety and its impact. Will continue in IOP to increase consistent use of healthy coping skills, improve independence, and prevent decompensation.
--- NOTE | 2025-02-05 11:15 | BH.SGPN.GN ---
Behaviors/Verbalizations/Mental Status: []Pt alert and oriented, casually dressed and groomed. Eye contact good. Motor activity appropriate. Speech within normal limits. Affect congruent, mood anxious and engaged. Thoughts linear, logical, no signs of hallucinations or delusions. Client Response/Progress/Benefit: [] Pt was an active participant AEB pt providing input and listening attentively to peers. Attentive during psychoeducation on mindfulness coping skills and their impact on reducing anxiety and improving overall mental health wellness. Group was able to identify self-soothing and mind-based coping skills which included: 5-senses, meditation, deep breathing, TIPP, thought challenging, categories, and progressive muscle relaxation. Pt would like to work on a fear ladder and listening to music more regularly to reduce anxiety. Appeared to benefit from increasing repertoire of anxiety reduction skills. Pt will continue IOP to reduce use of safety behaviors, increase distress tolerance skills, and improve self-care practices. Narrative Note: []
--- NOTE | 2025-02-09 10:15 | BH.SGPN.GN ---
Behaviors/Verbalizations/Mental Status: []Pt alert and oriented, casually dressed and groomed. Eye contact good. Motor activity appropriate. Speech within normal limits. Affect congruent, mood anxious. Thoughts linear, logical, no signs of hallucinations or delusions. Client Response/Progress/Benefit: [] Pt participated during small group discussions. Attentive during psychoeducation about defense mechanisms. Showed engagement during small group discussions and helped group identify which defense mechanisms were maladaptive, adaptive, or ?somewhere in the snell.? Pt worked with small group on identifying how each defense mechanism can impact mental health and gave examples. Group was mostly educational and pts discussed the different types of defense mechanisms. Pt reported benefits from identifying examples of different defense mechanisms and normalizing why they are used. Seemed to benefit from gaining awareness about the different defense mechanisms. Pt to continue IOP tx to prevent decompensation, improve daily functioning, and increase ability to regulate distress. ? Narrative Note: []
--- NOTE | 2025-02-09 11:15 | BH.SGPN.GN ---
Behaviors/Verbalizations/Mental Status: []Pt alert and oriented, casually dressed and groomed. Eye contact good. Motor activity appropriate. Speech within normal limits. Affect congruent, mood content. Thoughts linear, logical, no signs of hallucinations or delusions. Client Response/Progress/Benefit: [] Pt responded well to session, participating in activity and small group discussion. Group reviewed the rest of the defense mechanisms and discussed how these are adaptive, maladaptive, or somewhere in the snell. Pt's defense mechanisms included suppression and anticipation. Shared that these reinforce unhealthy coping mechanisms. Pt listened to enrober teach different skills to help pt?s cope with or change their defense mechanisms. Pt appeared to benefit from gaining insight to the different defense mechanisms and learning coping skills. Shared wanting to begin practicing more awareness of when using these defense mechanisms. Pt will continue IOP tx to prevent decompensation, improve distress tolerance skills, and increase emotion regulation. Narrative Note: []
--- NOTE | 2025-02-09 14:37 | BH.MDN ---
Multi-Disciplinary Note Note 30-min Individual: Time Started:: 09:20 Date: 02/09/25 Purpose of session/treatment goals addressed:: To review homework, work on ERP goal, and review progress since admission. Eye Contact:: Good Motor Activity:: Appropriate Appearance:: Neat and Casual Speech:: Appropriate Mood:: Euthymic and Anxious Affect:: Congruent Thoughts:: Linear, Logical and No evidence of hallucinations/delusions noted Staff Interventions:: CBT techniques, mindfulness skills, strengths perspective, goal setting and taught coping skills Client Response:: Pt responded well to session, open to meeting with therapist. Pt completed homework from last session which was for pt to practice the 5-senses grounding technique and go for a walk as part of her ERP goals. Pt reports going to walk with a friend twice, but did not manage to do so independently. Session was spent walking with this therapist as pt is working on increasing comfort with walking in public spaces and near busy roads. Expressed some anxiety in doing so but did well to utilize positive self-talk and opposite action to manage these anxieties. Went on to describe applying the 5-senses tool during a conference she attended over the weekend when feeling overwhelmed as well. Shared this allowed her to successfully calm down and return to the conference as well. Continues to endorse difficulties with adjusting to being around men in the group setting and shared that she was anxious this morning after discovering that male participants were sitting on either side of her table. Did identify not moving and instead tried to reframe this as an opportunity to work on healthy exposure. Went on to express a desire to reduce reliance on her security blanket in public settings and eventually not need to all together. Worked with therapist on identifying an appropriate goal to begin addressing this. Pt identified plans to set the blanket on the back of her chair rather than wrapped around her shoulders throughout the quote discussion in group and build up to being able to leave it on the chair the entirety of group. Worked with therapist to identify calming skills she can use while doing so. Reviewed diaphragmatic breathing techniques. Risks/Concerns:: None noted. Pt denies SI, plan, and intent as of this date 02/09/25 Progress Toward Goals/Plan:: Pt is making progress towards her tx goals AEB pt's self-report and ability to achieve various exposure goals. Pt reports her mood is improved and she feels more optimistic, less anxious, and more confident in herself and her abilities. Pt's PTSD and reactions to daily triggers are ongoing stressors, but pt reports improve distress tolerance and ability to implement grounding skills in those moments. Pt will continue IOP tx to prevent decompensation, improve daily functioning, and reduce maladaptive coping. Time Stopped:: 09:50
--- NOTE | 2025-02-10 09:00 | BH.SGPN.GN ---
Behaviors/Verbalizations/Mental Status: []Eye contact is good. Motor activity is appropriate. Appearance is casual. Speech is Appropriate. Mood is content. Affect is congruent. Thoughts are linear and logical. No evidence of psychosis. Reviewed daily check in sheet and pt denies SI, plan, or intent as of this date 02/10/25. Client Response/Progress/Benefit: [] Pt was an active participant in group discussions. Attentive. Did well to identify 2 mental health wins, which included successfully completing an exposure goal without engaging in her compulsion. Additional win noted as making an effort to practice giving herself credit for progress she is making. Stressor noted as continuing to work on her mental health. Appeared to benefit from provided support, encouragement, and feedback. Will continue IOP tx to improve mood stability, develop healthy coping repertoire, and prevent decompensation. Narrative Note: []
--- NOTE | 2025-02-10 10:10 | BH.SGPN.GN ---
Behaviors/Verbalizations/Mental Status: []Pt alert and oriented, casually dressed and groomed. Eye contact good. Motor activity appropriate. Speech within normal limits. Affect congruent, mood anxious. Thoughts linear, logical, no signs of hallucinations or delusions. Client Response/Progress/Benefit: [] Pt participated during the group discussion, providing input and remaining attentive during psychoeducation. Participated in experiential activity. Pt contributed during interactive discussion on the consequences of unhealthy expression of emotions. Worked with group to identify several consequences which included hurting relationships and isolating oneself. Contributing during interactive discussion on common potholes to effectively communicating. Pt was able to relate and make connections between the experiential activity and the overall topic, managing emotions through activity by ?reminding myself that they need my help.? Benefited from increased awareness of how stress and emotions can impact one's ability to communicate. Will continue in IOP to prevent decompensation, improve daily functioning, and increase the use of healthy coping skills. Narrative Note: []
--- NOTE | 2025-02-10 11:10 | BH.SGPN.GN ---
Behaviors/Verbalizations/Mental Status: []Eye contact is good. Motor activity is appropriate. Appearance is casual. Speech is Appropriate. Mood is anxious. Affect is congruent. Thoughts are linear and logical. No evidence of psychosis. Client Response/Progress/Benefit: [] Client engaged in session AEB client listening attentively to peers and providing input. Attentive during psychoeducation on 4 zones of regulation. Pt able to identify feelings and behaviors for each zone. Pt identified coping skills one can use to support self in each zone. Pt stated belief that pt is in the Yellow/red zone today. Pt reports wanting to work on ?practicing coping skills more consistently? so pt can get closer to the yellow zone today. Benefited from increased education on zones of regulation or stages of alertness for emotions and healthy coping skills to use for each zone. Pt will continue IOP tx to prevent decompensation, improve daily functioning, and reduce avoidance. Narrative Note: []
--- NOTE | 2025-02-12 09:05 | BH.SGPN.GN ---
Behaviors/Verbalizations/Mental Status: [] Eye contact is good. Motor activity is appropriate. Appearance is casual. Speech is Appropriate. Mood is euthymic. Affect is full. Thoughts are linear and logical. No evidence of psychosis. Reviewed daily check in sheet and no reports of suicidal ideations or intent. Client Response/Progress/Benefit: [] Pt was an active participant in group discussions. Attentive. Daily symptom tracker notes 3/5 for anxiety and 2/5 for self-harm urges. She following through with exposure goals. Elaborated on revent social event which caused anxiety. During the event she sat with the uncomfortable and rather than avoid and become invisible she took an active role in the event. Increased confidence in herself during social and anxiety producing events. I'm optimistic. If I can walk into IOP and do well than I can handle myself anywhere. Progress noted. Benefited from group support, encouratgment, and feedback. Will continue in IOP to maintain safety, prevent decompensation, and improve functioning. Narrative Note: []
--- NOTE | 2025-02-12 10:15 | BH.SGPN.GN ---
Behaviors/Verbalizations/Mental Status: [] Eye contact is good. Motor activity is appropriate. Appearance is casual. Speech is Appropriate. Mood is dysthymic. Affect is congruent. Thoughts are linear and logical. No evidence of psychosis. Client Response/Progress/Benefit: [] Client engaged during group session as evidenced by contributions during group discussions, appearing to listen to others, and taking notes. Client engaged in discussion about barriers that keep people from having difficult conversations. Group identified potential reasons individuals avoid difficult conversations which included; feeling uncomfortable, reaction of others, fear, and avoiding conflict. Group also identified benefits to having crucial conversations. Pt identified things they do that impact their communication as not communicating until dysregulated. Client seemed to benefit from increased awareness and education about importance of having difficult conversations and recognizing the impact of avoiding such conversations. Client to continue IOP to prevent decompensation, increase healthy coping, and improve functioning. Narrative Note: []
--- NOTE | 2025-02-12 11:15 | BH.SGPN.GN ---
Behaviors/Verbalizations/Mental Status: []Pt alert and oriented, casually dressed and groomed. Eye contact good. Motor activity appropriate. Speech within normal limits. Affect constricted, mood anxious. Thoughts linear, logical, no signs of hallucinations or delusions. Client Response/Progress/Benefit: [] Pt was an active participant, engaged in activities and discussion. Pt able to identify ways they negatively contribute to crucial conversations and pt was engaged during psychoeducation of the different ways to build interpersonal effectiveness skills. Pt and peers practiced mirroring and active listening in partners. Group reviewed [employer] and used the handout to help map out how they would like a crucial conversation in their life to go. Pt shared has learned that when she feels anxious and unsafe she loses ?my words? but pt stated that today she proved to herself that she can still communicate well even when anxious. Pt appeared to benefit from learning and practicing interpersonal effectiveness skills. Pt will continue IOP tx to prevent decompensation, improve daily functioning, and increase distress tolerance skills. Narrative Note: []
--- NOTE | 2025-02-16 09:00 | BH.SGPN.GN ---
Behaviors/Verbalizations/Mental Status: [] Pt alert and oriented, Neatly dressed and groomed. Eye contact fair. Motor activity appropriate. Speech within normal limits. Affect congruent, mood calm. Thoughts linear, logical, no signs of hallucinations or delusions. Reviewed pt?s symptom tracker, no risk for suicidal ideation, plan, and intent 02/16/25. Client Response/Progress/Benefit: []Pt was an active participant in group discussions. Attentive. Per patients daily symptom tracker, pt indicates a 0/5 for depression and a 3/5 for anxiety, with 5 being severe. Pt's mental health positive was that she has been able to attend work consistently for the past week without the use of her coping mechanisms such as a blanket and fidget toy. She stated that she often wants to leave due to her discomfort, but has been able to stay and finish work. Pt also stated that she is proud of her overall progress with her exposure goals which she has been working on in individual therapy. Her reported stressor is poor sleep. Pt was supportive and attentive to others in the group. Pt seemed to benefit from support from peers. Will continue IOP tx to promote healthy coping mechanisms, prevent decompensation, and gain self-confidence.
--- NOTE | 2025-02-16 10:15 | BH.SGPN.GN ---
Behaviors/Verbalizations/Mental Status: []Pt alert and oriented, casually dressed and groomed. Eye contact fair. Motor activity appropriate. Speech within normal limits. Mood is anxious. Affect is congruent. Thoughts linear, logical, no signs of hallucinations or delusions. Client Response/Progress/Benefit: [] Pt was an active?participant in group discussions and experiential activity. Worked with peers to identify benefits of healthy relationships which included; support, shared experiences, laughter, understanding, and perspective challenge. Group identified factors that lead to unhealthy relationships which included; low self-esteem, trauma-bonding, poor communication, and manipulation/toxic behaviors. Pt reported stated a toxic relationship has impacted her worth and self-esteem. Benefited from increased insight and awareness of benefits of healthy relationships and factors that contribute to unhealthy relationships. Will continue IOP to promote healthy coping, challenge distortions, and prevent decompensation.
--- NOTE | 2025-02-16 15:23 | BH.MDN ---
Multi-Disciplinary Note Note 45-min Individual: Time Started:: 11:19 Date: 02/16/25 Purpose of session/treatment goals addressed:: Purpose of session was to continue to work on self-care and ERP goals Eye Contact:: Good Motor Activity:: Appropriate and Restless Appearance:: Neat and Casual Speech:: Appropriate Mood:: Euthymic and Anxious Affect:: Congruent Thoughts:: Linear, Logical and No evidence of hallucinations/delusions noted Staff Interventions:: mindfulness skills, strengths perspective and goal setting Client Response:: Pt responded well to session, open to meeting with therapist. Pt excitedly reported that she successfully kept her security blanket off for 21 minutes during group today. Reports it was anxiety provoking but having the group topic to focus on helped and she did well to utilize fidgets during that time as well. Pt went on to describe plans to work towards 40 minutes next time she is scheduled for group. Additional plan to leave her blanket on the front end web designer where she cannot see or touch it for 2-5 minutes to build up an ability to be away from the item. Pt noted feeling empowered as she continues to work on her exposure goals and discussed being able to follow through with going for a walk around her house, as well as successfully showering. Pt reports difficulties with showering due to this being a place of prior trauma. Noted that listening to calming music and reminding herself she is no longer in the place the trauma occurred and is now safe was helpful. Shared trying to practice diaphragmatic breathing as well, but continues to struggle with this feeling ?normal?. Open to practicing this at various points throughout the day when calm. Risks/Concerns:: None noted. Pt denies SI, plan, and intent as of this date 02/16/25 Progress Toward Goals/Plan:: Pt is making ongoing progress towards her tx goals AEB pt's self-report and continued ability to achieve various exposure goals. Pt reports her ability to manage daily stress without significant mood instability or anxiety has improved as well. Pt reports that she has been working with her case management to practice the coping skills she has learned and has made a habit tracker for herself outside of group as well. Pt describes ongoing anxiety and ptsd sx. Noted increased irritability at times while working on her goals, however she has been able to use various grounding skills during these times as well. Pt will continue IOP tx to prevent decompensation, improve daily functioning, and reduce maladaptive coping. Time Stopped:: 11:56
--- NOTE | 2025-02-17 09:05 | BH.SGPN.GN ---
Behaviors/Verbalizations/Mental Status: [] Pt alert and oriented, casually dressed and groomed. Eye contact good. Motor activity appropriate. Speech within normal limits. Affect congruent, mood euthymic. Thoughts linear, logical, no signs of hallucinations or delusions. Reviewed pt?s symptom tracker, no risk for suicidal ideation, plan, or intent 02/17/25. Client Response/Progress/Benefit: []Pt was an active participant in group discussions. Attentive. Able to identify mental health wins including ?I?m starting to see progress with my exposure goals? and pt reports she has been going for walks. Pt's stressor today is ?just my exposure goals.? The group offered pt suggests managing this stressor and emotional support which pt reported was helpful. Pt is feeling ?anxious? this morning. Pt receptive to feedback from peers. Benefited from group support, encouragement, and feedback. Progress noted. Will continue IOP tx to prevent decompensation, improve daily functioning, and increase distress tolerance skills. ? Narrative Note: []
--- NOTE | 2025-02-17 10:10 | BH.SGPN.GN ---
Behaviors/Verbalizations/Mental Status: [] Client alert and oriented, casually dressed and groomed. Eye contact good. Motor activity appropriate. Speech within normal limits. Affect congruent, mood anxious. Thoughts linear, logical, no signs of hallucinations or delusions. Client Response/Progress/Benefit: [] Client responded well to session, contributing to discussion and engaged during the activity. Group identified the benefits of change which included: increased confidence, progressing towards goals, and improving mental and physical health. Worked with the group to identify barriers to change, which included: uncomfortable emotions such as anxiety, lack of energy, lack of supports, and negative influences. Client participated along with group in activity where they identified and discussed the emotions related to change. Benefited from increased awareness and understanding of emotions, benefits, and barriers related to change. Will continue IOP tx to challenge negative thoughts, decrease anxious avoidance, and prevent decompensation.
--- NOTE | 2025-02-17 11:10 | BH.SGPN.GN ---
Behaviors/Verbalizations/Mental Status: []Client alert and oriented, casually dressed and groomed. Eye contact good. Motor activity appropriate. Speech within normal limits. Affect congruent, mood anxious. Thoughts linear, logical, no signs of hallucinations or delusions Client Response/Progress/Benefit: [] Pt responded well to session, attentive. Did well to process activity and work with group to relate the strategies used to overcome barriers in the activity to managing change in own life. Pt identified a change they would like to make is ?rely less on my blanket.? Pt identified currently being in action stage for this change. Pt stated goal is to use alternative skills. Appeared to benefit from identifying a small goal to work towards. Pt will continue IOP tx to prevent decompensation, improve daily functioning, and gain healthy coping skills. Narrative Note: []
== END 2025-02-17 23:59 ==
LOC: BHIOP 08:00
PROVIDERS: PCP Registered Nurse; Referring Provider Internal Medicine; Visit Provider Internal Medicine
DX: F41.1 Generalized anxiety disorder (principal); F43.10 Post-traumatic stress disorder, unspecified
CPT/HCPCS: H2012; H2020; S9480; 90832; 90834

== ENCOUNTER 2025-02-18 08:05 | Outpatient (RCR) | payer MEDICAID, SELFPAY ==
--- NOTE | 2025-02-20 08:20 | PCM.BH.PN ---
Intake Vital Signs 01/30/25 10:16 02/20/25 08:20 Height 1.6 m 1.6 m Weight: 94.347 kg BP 137/70 H Pulse 87 BH Intake Visit Reasons: f/uPTSD, MDD Allergies amoxicillin Allergy (Verified 01/30/25 08:34) Upset Stomach erythromycin base Allergy (Verified 01/30/25 08:34) Upset Stomach Penicillins (PCN) Allergy (Verified 01/30/25 08:34) Upset Stomach azithromycin (From Zithromax) Adverse Reaction (Intermediate, Verified 01/30/25 08:34) Hives metronidazole (From Flagyl) Adverse Reaction (Intermediate, Verified 01/30/25 08:34) Rash sulfamethoxazole (From Bactrim) Adverse Reaction (Intermediate, Verified 01/30/25 08:34) Rash trimethoprim (From Bactrim) Adverse Reaction (Intermediate, Verified 01/30/25 08:34) Rash trazodone Adverse Reaction (Unknown, Verified 01/30/25 08:34) suicidal ideation Medications ?Medication ?Instructions ?Recorded ?Confirmed ?Type ergocalciferol (vitamin D2) 1,250 1,250 mcg PO QWEEK 06/09/24 01/30/25 History mcg (50,000 unit) capsule ferrous sulfate 325 mg (65 mg 325 mg PO BID 06/09/24 01/30/25 History iron) tablet flax seed oil 1,000 mg PO DAILY 06/09/24 01/30/25 History hydroxyzine HCl 25 mg tablet 25 mg PO Q8H PRN anxiety 06/09/24 01/30/25 History magnesium hydroxide 400 mg (170 mg 400 mg PO DAILY 06/09/24 01/30/25 History magnesium) chewable tablet ondansetron HCl 4 mg tablet 4 mg PO Q8H PRN nausea and vomiting 06/09/24 01/30/25 History sumatriptan succinate 25 mg tablet See Rx Instructions PO .COMPLEX 06/09/24 01/30/25 History buspirone 7.5 mg tablet 7.5 mg PO TID 01/14/25 01/30/25 History lansoprazole 30 mg capsule,delayed 30 mg PO QDAY #90 caps 01/27/25 01/30/25 Rx release naltrexone 50 mg tablet 50 mg PO DAILY 01/30/25 01/30/25 History quetiapine 300 mg tablet,extended 300 mg PO QHS 01/30/25 01/30/25 History release 24 hr (Seroquel XR) ondansetron HCl 4 mg tablet 4 mg PO Q4H PRN nausea and 02/04/25 Rx vomiting #6 tabs sodium sul 1.479 gram-potas ch See Rx Instructions PO .COMPLEX 02/04/25 Rx 0.188 gram-magnes sul 0.225 gram #28 tabs tablet (Sutab) HPI () History of Present Illness History provided by: patient Chief complaint: f/u PTSD, MALORIE HPI: -Current psychiatric medications: Seroquel 300 mg, BuSpar 7.5 mg 3 times a day, naltrexone 50 mg, hydroxyzine 25 mg as needed -SUBJECTVE: Overall feels she is doing better than she had been, send anxiety had been a for and now she is having days where it is a 3, still not sleeping very well which is chronic and did not think the increase in Seroquel helped her sleep this time but she is otherwise tolerating it well, still having episodes of scratching but no thoughts of killing herself. No AH/VH, no HI. Did discuss her sleep, she is to see her psychiatrist next week. And they will decide if they are going to retrial trazodone, given this is listed as an allergy and there was query if it caused increased suicidal ideation will defer to patient's psych provider for initiation and monitoring so this can be done closely Exam Mental Status Exam- Psych () Appearance casually dressed and other (Still wearing comfort blanket) Attitude cooperative and calm Activity/Motor Behavior MSE activity/motor behavior finding no adventitious movements Speech regular rate and regular volume Mood euythmic Affect other (Still slightly restricted) Thought Process linear and logical Thought Content no delusions and no hallucinations Suicidal Ideation none Homicidal Ideation none Attention intact Concentration intact Sensorium/Orientation awake and alert Memory/Cognition intact Insight questionable Judgement questionable Assessment & Plan () Assessment & Plan (1) Post traumatic stress disorder: Plan: Continues to have problems with sleep, will be following with her primary psych provider next week to discuss retrialing trazodone, she had been otherwise unmedicated at the time that she tried that and was already suicidal, tried it for 4 days and then they took her off of it because of the suicidality. Do think it is reasonable but given it is listed as an allergy in her history we will defer to patient's primary psychiatry provider for final decision and titration. Will otherwise continue Seroquel, BuSpar, naltrexone. Tolerating well including increased dose of Seroquel. No SI (2) MALORIE (generalized anxiety disorder): Plan: As above, still room to go up on BuSpar if needed but reports anxiety is better than it had been. Continue Seroquel. Has not been having to take the hydroxyzine as needed Charges/Coding Behavior Health Behavior Health EST Pt E/M: 05953 Est Pt Level IV
--- NOTE | 2025-02-20 09:00 | BH.SGPN.GN ---
Behaviors/Verbalizations/Mental Status: [] Pt alert and oriented, casually dressed and groomed. Eye contact fair. Motor activity appropriate. Speech within normal limits. Affect congruent, mood anxious. Thoughts linear, logical, no signs of hallucinations or delusions. Reviewed pt?s symptom tracker, 0/5 with 5 being severe for risk for suicidal ideation, indicates a 0/5 for plan, and intent to kill self. Pt does not appear to be imminent risk to harm self. 02/20/25. Client Response/Progress/Benefit: []Pt was an active participant in group discussions. Attentive. Per patients daily symptom tracker, pt indicates a 0/5 for depression and a 3.5/5 for anxiety, with 5 being severe. Pt was excited to share her mental health wins in group. She shared that she had attended a very large conference in which she sat at a table with her friend, with her back to other attendees. This shows progress in clients social anxiety and ability to handle distressing situations. Pt stated that this situation was very anxiety producing for her, but she was able to push through. Her other win was going 40 minutes without her blanket during her outpatient therapy session. Pt stated that this again was an anxiety provoking situation, but was able to handle it. Pt's stressor is an upcoming doctor's appointment in which she is going to speak about some health issues she has been having. Pt was supportive and attentive to others in the group. Pt seemed to benefit from support from peers. Will continue IOP tx to promote healthy coping mechanisms, reduce negative thinking patterns, and gain self-confidence.
--- NOTE | 2025-02-20 10:10 | BH.SGPN.GN ---
Behaviors/Verbalizations/Mental Status: [] Eye contact is good. Motor activity is appropriate. Appearance is casual. Speech is Appropriate. Mood is euthymic and anxious. Affect is congruent. Thoughts are linear and logical. No evidence of psychosis. Client Response/Progress/Benefit: [] Pt engaged participant AEB listening to others, engaging in activity, and providing feedback at times. Attentive during psychoeducation and provided insight into obstacles that impede mental wellness. Pt shared with group current mental health reality and desired mental health reality. Identified barriers to desired reality include: anxiety and flight/freeze. Benefited from taking look at current mental health state and obstacles for progress. Pt to continue IOP tx to improve mood stability and prevent decompensation. Narrative Note: []
--- NOTE | 2025-02-20 11:10 | BH.SGPN.GN ---
Behaviors/Verbalizations/Mental Status: [] Eye contact is good. Motor activity is appropriate. Appearance is casual. Speech is Appropriate. Mood is anxious and euthymic. Affect is congruent. Thoughts are linear and logical. No evidence of psychosis. Client Response/Progress/Benefit: [] Pt was an engaged participant in group discussion and activity. Worked with group to identify strategies to help overcome barriers and obstacles to desired reality. Group developed strategies for the common barriers. Identified personal barriers to desired reality and choose one obstacle to work. Pt stated they want to utilize strategy of doing exposure to combat barriers. Pt seemed to benefit from increased repertoire of healthy coping skills/strategies to overcome common barriers to moving forward. Pt is to continue IOP to increase healthy coping skills, challenge distortions, and prevent decompensation. Narrative Note: []
--- NOTE | 2025-02-20 14:41 | BH.TPR ---
Treatment Plan Review Demographics Date of Admission:: 01/26/25 Date of Treatment Plan Review:: 02/20/25 Admitting Diagnoses:: PTSD; Generalized Anxiety Disorder Current Diagnoses:: PTSD; Generalized Anxiety Disorder Patient Status Patient's Response to Treatment:: Pt has responded mostly well to IOP treatment. Pt's attendance is consistent and engaged through note taking and engaging in discussions. Pt does well with challenging herself to interact with peers despite anxiety in doing so and reports benefitting from the group topics. Pt engages well individually and is open to ideas. Pt consistently reports using the coping skills she learns outside of IOP and pt feels she is gaining a lot of self-awareness and confidence. Pt reports the program has helped her identify skills needed to improve mood stability pt feels ready to make changes. Status of Current Problems and Symptoms: Pt's biggest stressor currently is ongoing PTSD safety behaviors and navigating occupational stressors. Pt's symptoms of anxiety have increased since admission and pt's depressive symptoms remain the same since admission. Anxiety may be higher due to pt actively working on exposure therapy to reduce engagement in safety behaviors. Pt reports belief that she is coping better, but she still experiences moments of mood instability. Pt also reports difficulties with sleep as another contributor to her mood. Progress Problem #1: Problem Name:: PTSD, anxiety, mood instability Status of Goals:: Obj 1- in progress. Pt has learned several distress tolerance skills to help pt during times of stress and PTSD triggers. Pt reports she has been using grounding skills and deep breathing and this has been helping. Does continue to struggle with identifying leslie signs and triggers in the moment. Obj 2- not complete. Pt's scores for anxiety have increased since admission. As noted above, this is likely due to pt actively working on her exposure goals and not engaging in safety behaviors when feeling anxious. Team Recommendations:: Team recommends pt to continue working on increasing distress tolerance and improving ability to regulate when experiencing triggers. Team also encourages pt to continue reaching out to healthy supports
--- NOTE | 2025-02-23 09:05 | BH.SGPN.GN ---
Behaviors/Verbalizations/Mental Status: [] Eye contact is good. Motor activity is appropriate. Appearance is casual. Speech is Appropriate. Mood is anxious and irritable. Affect is congruent. Thoughts are linear and logical. No evidence of psychosis. Reviewed daily check in sheet and no reports of suicidal ideations or intent. Client Response/Progress/Benefit: [] Pt did not participate in group discussions. Attentive. Daily symptom tracker notes 4/5 for anxiety and 3/5 for irritability/self-harm urges. Pt did not participated in group discussions. No engagment in group this AM. She disclosed to IOP staff prior to group that she is going through it today. No progress noted or benefited noted during group due to lack of engagement. Will continue in IOP to prevent decompensation, increase healthy coping, and improve functioning. Narrative Note: []
--- NOTE | 2025-02-23 10:15 | BH.SGPN.GN ---
Behaviors/Verbalizations/Mental Status: [] Pt alert and oriented, casually dressed and groomed. Eye contact good. Motor activity appropriate. Speech within normal limits. Affect congruent, mood agitated and dysthymic. Thoughts linear, logical, no signs of hallucinations or delusions. Client Response/Progress/Benefit: [] Pt participated in group discussions. Attentive during psychoeducation on the CBT [place] (Thoughts, Behaviors, Emotions). Engaged in group discussion on how thoughts and behaviors can contribute to maintaining adverse feelings, such as depression, anxiety, and irritability. Completed worksheet in which pt identified obstacles and/or thoughts that are keeping them stuck. Shared obstacles that included; forgetting coping skills, catastrophizing, what if thoughts, and self-doubt. Pt benefited from increased awareness of the basis of CBT therapy as well as specific thoughts that are impacting pt's progress. Will continue in IOP to prevent decompensation, increase healthy coping, and improve functioning. Narrative Note: []
--- NOTE | 2025-02-23 11:15 | BH.SGPN.GN ---
Behaviors/Verbalizations/Mental Status: []Pt alert and oriented, casually dressed and groomed. Eye contact good. Motor activity appropriate. Speech within normal limits. Affect congruent, mood anxious. Thoughts linear, logical, no signs of hallucinations or delusions. Client Response/Progress/Benefit: [] Pt responded well to session, contributing to discussion and attentive throughout. Pt identified a negative thought that has kept them stuck. Pt's thought was I have no coping skills.? Pt reported when they think this way, pt panics and has meltdowns. ?Pt worked to reframe the thought by finding more rational, realistic ways to look at the thoughts and then processed them within group setting. Pt reframed the thought to ?I have used coping skills before and have support.? Pt appeared to benefit from practicing challenging negative thinking with peers and gaining coping skills. Pt will continue IOP tx to prevent decompensation, reduce use of unhealthy coping skills, and improve daily functioning. ? Narrative Note: []
--- NOTE | 2025-02-24 10:00 | BH.SGPN.GN ---
Behaviors/Verbalizations/Mental Status: []Eye contact is good. Motor activity is appropriate. Appearance is casual. Speech is Appropriate. Mood is anxious. Affect is congruent. Thoughts are linear and logical. No evidence of psychosis. Client Response/Progress/Benefit: [] Pt was an active participant in group discussions. Attentive during psychoeducation. Contributed during interactive discussions in which peers attempted to define crisis. Group identified crisis examples. Group also worked together to identify warning signs and unhealthy responses to crisis which included shutting down, isolation, avoidance, over-thinking, disordered eating, and self-harm. Pt identified top 3 warning signs as: stop taking care of self, avoiding anxious situations, and negative thinking. Benefited from increased understanding of crisis and awareness of personal responses to crisis. Pt will continue IOP tx to increase distress tolerance skills, reduce negative thinking patterns, and reduce use of unhealthy coping skills. ? Narrative Note: []
--- NOTE | 2025-02-24 11:00 | BH.SGPN.GN ---
Behaviors/Verbalizations/Mental Status: []Pt alert and oriented, appropriate grooming/appearance. Eye contact fair. Motor activity appropriate. Speech within normal limits. Affect congruent, mood anxious. Thoughts linear, logical, no signs of hallucinations or delusions. Client Response/Progress/Benefit: []Pt was an active participant in group discussions. Attentive during psychoeducation. In small group pt along with peers developed an active plan for their crisis warning signs. Pt identified three crisis warning signs as well as an action plan for each. One crisis warning sign was stop taking care of self. Pt identified strategies to help with this such as: schedule onehyginee task daily, intentionally pick out an outfit she feels good at, call a support person, and drink more water. Benefited from increased awareness of crisis warning signs and by developing crisis intervention strategies. Will continue in IOP to promote use of healthy coping skills, improve daily functioning, and prevent decompensation.
--- NOTE | 2025-02-24 15:06 | BH.MDN_ITS ---
Multi-Disciplinary Note Note 45-min Individual: Time Started:: 08:20 Date: 02/24/25 Purpose of session/treatment goals addressed:: Purpose of session was to process recent stressor and work on improving distress tolerance. Eye Contact:: Good Motor Activity:: Appropriate Appearance:: Casual Speech:: Appropriate Mood:: Irritable and Dysthymic Affect:: Congruent Thoughts:: Linear, Logical and No evidence of hallucinations/delusions noted Staff Interventions:: thought challenging, motivational interviewing, CBT techniques and goal setting Client Response:: Pt responded well to session, open to meeting with therapist. Reports struggling over the weekend with nightmares and managing her anxiety. Went on to describe experiencing nightmares Sunday night which threw off her mood on Sunday. 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 Noted that upon returning home she felt on edge and restless which then resulted in pt engaging in self-harming behaviors via scratching herself. Noted that Sunday had not been as bad but she continued to experience irritability, as well as disappointment in herself, throughout the day. Therapist validated and normalized pt?s emotions. Worked with pt to review the ?window of tolerance? and discuss how based on her past trauma and the current stress levels, pt was more easily sent out of her zone of tolerance. Pt connected with practicing distress tolerance and mindfulness skills as a means of expanding her window of tolerance and improving ability to manage stressful situations. Pt and therapist reviewed progressive muscle relaxation and concept of creating a ?safe space? for pt to calm and regulate in her apartment. Willing to practice mindfulness skills as homework. Risks/Concerns:: None noted. Pt denies SI, plan, and intent as of this date 02/24/25 Progress Toward Goals/Plan:: Pt is making ongoing progress towards her tx exposure goals. Does report a recent regression in ability to maintain mood stability during a recent stressful weekend. Does admit to recent self-harming behaviors for the first time since beginning IOP. Is continuing to practice self-compassion and distress tolerance during other exposure goals however. Pt will continue IOP tx to prevent decompensation, improve daily functioning, and reduce maladaptive coping. Time Stopped:: 09:01
--- NOTE | 2025-02-26 09:00 | BH.SGPN.GN ---
Behaviors/Verbalizations/Mental Status: [] Eye contact is good. Motor activity is appropriate. Appearance is casual. Speech is Appropriate. Mood is euthymic. Affect is full. Thoughts are linear and logical. No evidence of psychosis. Client Response/Progress/Benefit: [] Pt was an active participant in group discussions. Attentive. Emotion is ?tired?. Able to identify mental health wins and healthy habits. Improved sleep which she attributes to medication change. Shared that she had an extended panic attack at work this past weekend. She described the attack as significant. She is nervous about returning due to fear of having another panic attack. She was able to identify a strategy for returning to work to help minimize anxiety. Progress noted. Benefited from group support, encouragement, and feedback. Will continue in IOP to prevent decompensation, stabilize mood, and improve functioning. Narrative Note: []
--- NOTE | 2025-02-26 10:10 | BH.SGPN.GN ---
Behaviors/Verbalizations/Mental Status: [] Eye contact fair, Motor activity is appropriate, Appearance is casual. Speech appropriate. Mood calm. Affect congruent. Thoughts are linear and logical. No evidence of psychosis. Client Response/Progress/Benefit: [] Pt was an active participant during interactive group discussions. Attentive during discussion of the different types of boundaries (rigid, porous, healthy) Took notes and provided input. Contributed to the discussion on defining boundaries and the benefits and barriers to them. Active participant in the boundary continuum activity. Identified boundary type porous, connecting in the activity with statements that endorsed a lack of personal boundaries and self-confidence. Group discussed mental health benefits to establishing boundaries, and also situations in which lessening boundaries are appropriate. Pt benefited from increased awareness and insight on the importance of boundary setting. Pt will continue in IOP to increase healthy coping skills, reduce negative thought patterns, and prevent decompensation.
--- NOTE | 2025-02-26 11:10 | BH.SGPN.GN ---
Behaviors/Verbalizations/Mental Status: []Pt alert and oriented, casually dressed and groomed. Eye contact fair. Motor activity appropriate. Speech within normal limits. Affect congruent, mood anxious. Thoughts linear, logical, no signs of hallucinations or delusions. Client Response/Progress/Benefit: [] Client responded well to session AEB listening attentively to peers, providing input, as well as taking notes throughout. Group discussed different styles of boundary setting. Worked with group to discuss positive and negative consequences from each boundary style. Participated in small group discussion brainstorming various strategies for improving healthy boundary setting. Pt took time to complete reflection on which skills would like to implement to improve boundaries. Seemed to benefit from increased awareness of how different boundary styles can impact mental health. Will continue IOP tx improve distress tolerance, challenge distorted thoughts, and prevent decompensation.
--- NOTE | 2025-03-02 09:00 | BH.SGPN.GN ---
Behaviors/Verbalizations/Mental Status: [] Pt alert and oriented, Casually dressed and groomed. Eye contact good. Motor activity appropriate. Speech within normal limits. Affect congruent, mood anxious. Thoughts linear, logical, no signs of hallucinations or delusions. Reviewed pt?s symptom tracker, 0/5 with 5 being severe for risk for suicidal ideation, indicates a 0/5 for plan, and intent to kill self. Pt does not appear to be imminent risk to harm self.03/02/25. Client Response/Progress/Benefit: []Pt was an active participant in group discussions. Attentive. Per patients daily symptom tracker, pt indicates a 0/5 for depression and a 3/5 for anxiety, with 5 being severe. Pt was excited to share her mental health positive with the group, reporting that she worked a shift with only her male boss without leaving due to her past trauma with being alone with men. She did report having a mild panic attack, but was able to use her coping skills to get through her whole shift. Pt's other positive was making it to group today despite being tired from medication changes. Pt's reported stressor was her new medication making her very tired, stating that she is sleeping up to 14 hours a night. Pt also shared some anxiety about being over half way through the program, stating that she was worried of losing progress once she is discharged. Pt was supportive and attentive to others in the group. Pt seemed to benefit from support from peers. Will continue IOP tx to promote healthy coping mechanisms, reduce negative thinking patterns, and prevent decompensation.
--- NOTE | 2025-03-02 10:15 | BH.SGPN.GN ---
Behaviors/Verbalizations/Mental Status: [] Eye contact is good. Motor activity is appropriate. Appearance is casual. Speech is Appropriate. Mood is content. Affect is congruent. Thoughts are linear and logical. No evidence of psychosis. Client Response/Progress/Benefit: [] Pt engaged in session AEB listening attentively to others and providing input throughout. Pt engaged in activity, able to connect how it can be uncomfortable and difficult to practice acceptance when situations are out of one?s own control. Identified what they are struggling to accept in personal life. Worked with peer group to define acceptance and identify the benefits that acceptance can bring. Benefits included; reduce anxiety, reduced stress, helps one to focus on situations we can change, and decreased negative self-talk. Seemed to benefit from increased awareness of the meaning as well as the importance of acceptance. Will continue in IOP to improve emotion regulation, work on exposure goals, and prevent decompensation. Narrative Note: []
--- NOTE | 2025-03-02 11:15 | BH.SGPN.GN ---
Behaviors/Verbalizations/Mental Status: []Pt alert and oriented, casually dressed and groomed. Eye contact good. Motor activity appropriate. Speech within normal limits. Affect congruent, mood anxious. Thoughts linear, logical, no signs of hallucinations or delusions. Client Response/Progress/Benefit: [] Pt responded well to session AEB taking notes and contributing to discussion throughout. Pt engaged as group continued discussion on acceptance and the mental health benefits of practicing acceptance. Pt and peers identified what makes acceptance challenging and pt completed a self-reflection exercise on what is hard to accept in pt's life. Pt identified something that is currently hard to accept as ?giving up my blanket.? Pt stated by not accepting this, it leads to telling herself ?I can?t do this?, resentment, and refusal to use other skills. Group identified strategies to increase acceptance. Pt noted wanting to work on ?living in the snell and accepting help? as a strategy for improving acceptance. Pt appeared to benefit from gaining insight and learning strategies to increase acceptance. Pt will continue IOP tx to increase distress tolerance, improve daily functioning, and reduce use of safety behaviors. Narrative Note: []
--- NOTE | 2025-03-03 09:00 | BH.SGPN.GN ---
Behaviors/Verbalizations/Mental Status: [] Eye contact is good. Motor activity is appropriate. Appearance is casual. Speech is Appropriate. Mood is anxious. Affect is congruent. Thoughts are linear and logical. No evidence of psychosis. Client Response/Progress/Benefit: [] Pt was an active participant in group discussions. Attentive. Able to identify mental health wins and healthy habits. She discussed starting an ?social group? at a local [employer] shop. 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 Creating a social group is ?outside of my comfort zone? however she proud of herself and has insight that anxiety doesn?t always have to be negative. Improved sleep. Emotion for today is ?chill?. Progress noted. Benefited from group support, encouragement, and feedback. Will continue in IOP to prevent decompensation, increase healthy coping, and stabilize anxiety. Narrative Note: []
--- NOTE | 2025-03-03 10:10 | BH.SGPN.GN ---
Behaviors/Verbalizations/Mental Status: [] Pt alert and oriented, casually dressed and groomed. Eye contact good. Motor activity appropriate. Speech within normal limits. Affect congruent, mood euthymic. Thoughts linear, logical, no signs of hallucinations or delusions. Client Response/Progress/Benefit: [] Pt responded well to session AEB sharing and listening attentively to others. Group provided examples of types of support (professional, pets, hobbies, community, spouse, spirituality, co-workers, family, etc) as well as benefits of having social support, including: validation, get perspective, and accountability. Pt also participated in group discussion regarding the barriers to accessing support and pt?s barriers included; isolation, overconfidence, reliance on unhealthy coping, and self-sabotage. Pt participated in experiential activity illustrating the impact communication, boundaries, and patience play in creating healthy support systems. Pt appeared to benefit from increased knowledge of the benefits of social support and greater self-awareness. Pt to continue IOP to prevent decompensation, increase healthy coping, and improve functioning. Narrative Note: []
--- NOTE | 2025-03-03 11:10 | BH.SGPN.GN ---
Behaviors/Verbalizations/Mental Status: []Client alert and oriented, casually dressed and groomed. Eye contact good. Motor activity appropriate. Speech within normal limits. Affect congruent, mood content. Thoughts linear, logical, no signs of hallucinations or delusions. Client Response/Progress/Benefit: [] Pt participated throughout AEB contributing to discussion, providing examples, and taking notes. Pt provided input during discussion on the types of support our supports can provide. Pt able to identify current support system and barriers that get in the way of using supports. Pt reported after identifying what type of supports pt receives, pt gained awareness that pt could benefit from more social and tangible support by putting more effort into consistently reaching out and asking for help when needed. Pt seemed to benefit from identifying the type of support pt needs to work on improving. Pt recommended to continue IOP tx to promote increase positive self-talk, improve healthy communication and boundary setting, and prevent decompensation. Narrative Note: []
--- NOTE | 2025-03-05 09:00 | BH.SGPN.GN ---
Behaviors/Verbalizations/Mental Status: [] Eye contact is good. Motor activity is appropriate. Appearance is casual. Speech is Appropriate. Mood is euthymic. Affect is full. Thoughts are linear and logical. No evidence of psychosis. Client Response/Progress/Benefit: [] Pt was an active participant in group discussions. Attentive. ? I?m not creating my own anxiety?. She mentioned that in the past she would create anxiety b/c she didn?t feel comfortable w/o having something to be anxious about. Insight on self-sabotage. She discussed upcoming situational stressors however insight that this is eustress or positive stress which is expected. She reports seeing progress in many areas of her life. Progress noted. Benefited from group support, encouragement, and feedback. Will continue in IOP to prevent decompensation, maintain gains, and increase healthy coping. Narrative Note: []
--- NOTE | 2025-03-05 15:18 | BH.MDN_ITS ---
Multi-Disciplinary Note Note 45-min Individual: Time Started:: 10:45 Date: 03/05/25 Purpose of session/treatment goals addressed:: Purpose of session was to address tx plan goal #1 obj #1, as well as begin d/c planning. Eye Contact:: Good Motor Activity:: Appropriate Appearance:: Neat and Casual Speech:: Appropriate Mood:: Euthymic Affect:: Congruent Thoughts:: Linear, Logical and No evidence of hallucinations/delusions noted Staff Interventions:: motivational interviewing, discharge planning and strengths perspective Client Response:: Pt receptive of session, actively engaged throughout. Reports doing ?better this week than last? and expressed feeling more connected and talkative with the people in her life this week. Described increased socialization, as she has returned to [employer], as well as made plans with a friend to start and every other week art group at their local coffee shop. Reports this is somewhat out of her comfort zone but believes it will be a healthy challenge and use of exposure. Pt went on to note that she has not self- harmed in the past week either and has been practicing the 5-senses skill as well as progressive muscle relaxation methods and feels it has been helpful. Noted wanting to continue to work on exposure therapy following IOP d/c next week as would like referral information as her outpatient therapist does not provide those treatment services. Provided pt with a list of local counselors w ho use DBT and ERP modalities. Pt and therapist worked to begin her aftercare maintenance plan, identifying warning signs/triggers, resources, and helpful skills for post IOP tx. Pt will complete for homework to review in next session. Risks/Concerns:: None noted. Pt denies SI, plan, and intent as of this date 03/05/25 Progress Toward Goals/Plan:: Progress noted. Pt reports improved mood stability and no self-harming in the past week. Continues to make progress on tx goals and is actively working on exposure to anxieties and reducing avoidance. Pt reports improved mood and confidence which has resulted in increased socialization as well. Pt will d/c next week after completing aftercare planning. Time Stopped:: 11:30
--- NOTE | 2025-03-09 09:00 | BH.SGPN.GN ---
Behaviors/Verbalizations/Mental Status: [] Pt alert and oriented, casually dressed and groomed. Eye contact good. Motor activity appropriate. Speech within normal limits. Affect congruent, mood calm. Thoughts linear, logical, no signs of hallucinations or delusions. Reviewed pt?s symptom tracker, 0/5 with 5 being severe for risk for suicidal ideation, indicates a 0/5 for plan, and intent to kill self. Pt does not appear to be imminent risk to harm self.03/09/25. Client Response/Progress/Benefit: []Pt was an active participant in group discussions. Attentive. Per patients daily symptom tracker, pt indicates a 0/5 for depression and a 3/5 for anxiety, with 5 being severe. Pt shared their positive as making it through their weekend work shifts, even picking up an extra shift on Sunday. Pt reported not having any panic attacks at work, and feeling calm throughout their shift. Pt's other mental health positive was achieving one of their goals which was getting to IOP at an appropriate time. Pt reports struggling with anxiety about being late, causing pt to show up to IOP an hour early. Pt was able to come to IOP 40 minutes early instead of an hour today. Pt's stressor is discharging from IOP on Sunday. Pt states that she is anxious about losing support, especially since her outpatient therapist has moved her sessions to once a month instead of once a week. Pt is working on coping mechanisms and will attend aftercare to help with this transition. Pt was supportive and attentive to others in the group. Pt seemed to benefit from support from peers. Will continue IOP tx to promote healthy coping mechanisms, reduce negative thinking patterns, and prevent decompensation, discharging on 03/11/25.
--- NOTE | 2025-03-09 10:10 | BH.SGPN.GN ---
Behaviors/Verbalizations/Mental Status: []Pt alert and oriented, casually dressed and groomed. Eye contact good. Motor activity appropriate. Speech within normal limits. Affect congruent, mood content. Thoughts linear, logical, no signs of hallucinations or delusions. Client Response/Progress/Benefit: [] Pt receptive to session AEB contributing to group discussion, as well as listening attentively to others, and taking notes. Worked with group to brainstorm the positive and negative aspects of stress on physical and mental health as well as the impact of distress on performance, relationships, and mental health. Pt shared their current personal top stressors to be: anxiety, finances, and work. Shared when feeling overwhelmed with stress pt tends become angry. Benefited from increased awareness of positive and negative stress as well as how stress impact individuals. Will continue in IOP to prevent decompensation, improve daily functioning, and reduce negative thinking patterns. Narrative Note: []
--- NOTE | 2025-03-09 11:15 | BH.SGPN.GN ---
Behaviors/Verbalizations/Mental Status: []Eye contact is good. Motor activity is appropriate. Appearance is casual. Speech is Appropriate. Mood is euthymic. Affect is congruent. Thoughts are linear and logical. No evidence of psychosis. Client Response/Progress/Benefit: [] Pt was an attentive participant in group discussions and actively engaged during experiential activity. Attentive during psychoeducation on the 4 A's (Avoid, adapt, alter, accept) of coping with stress. Identified one of the 4 A's to address one their top stressors. Participated with peers on identifying the connection between the experiential activity and utilization of stress management skills. Pt elected to take a passive role, but she still encouraged peers. Pt shared wanting to work on using dialectical thinking to help pt continue doing hard things. Benefited from increased awareness of stress management strategies. Pt will continue IOP to reinforce healthy coping skills and further improve mood. Narrative Note: []
--- NOTE | 2025-03-10 10:05 | BH.DS ---
Discharge Summary Demographics Date of Admission:: 01/26/25 Discharge Date: 03/10/25 Presenting Problems at Admission:: PT is a 24 y/o F who presented to [facility] program for further evaluation and treatment of PTSD, borderline personality disorder, and MALORIE. Patient was referred to IOP by [facility] after she inquired about DBT groups. Pt has been struggling with high anxiety recently to the point it has been impacting her ADLs/hygiene, and functioning. Reports she has also been isolating herself from friends and has been scratching herself when overwhelmed. Hx of significant childhood trauma. When she started with [facility] she was using a security blanket, pacifier and baby toys but is now only using security blanket. Does note she has had increased thoughts of scratching herself recently as a form of self-harm, occasionally will have suicidal ideation but then will take medicine and goes to bed and it goes away, this happens 1-2 times a week. She reports her sleep is poor and she will get nightmares that wake her up and anxiety and makes it difficult to sleep, she feels she needs to check the door multiple times at night and is very paranoid and hypervigilant. No symptoms consistent with jayna reported, does note she has a lot of checking behaviors but did not note a diagnosis of OCD. Discharge Diagnoses:: PTSD; Generalized Anxiety Disorder Reason for Discharge:: Completed IOP successfully. No longer meets criteria for [facility] level of care. Treatment Progress During Treatment & Response: Client was consistent with attendance and actively engaged. Outcome measures indicate significant clinical improvement since admission. The client is medication-compliant and maintains free from self-harm the past week. She self-reports improvements in energy, motivation, and goal driven activities, and continues to engage with her self-care needs, as well as work on small exposure goals. Notably, the client reports maintaining consistent employment for the longest in the past few years. She reports improved utilization of coping skills and CBT-based interventions, including cognitive restructuring (thought reframing) and behavioral activation strategies. Issues Still to be Addressed:: Continued ERP work, stress management, distress tolerance, interpersonal effectiveness for improving social skills, and continued work on managing mood. Discharge Recommendations/Instructions:: At present, the patient is planning to continue with outpatient counseling though is in the process of switching agencies. She reports she has an intake appointment scheduled, as well as psychiatry services through [facility]. And case management with [facility]. She is agreeable to attending aftercare group sessions at [facility] following discharge. Discharge Handout
--- NOTE | 2025-03-10 10:10 | BH.SGPN.GN ---
Behaviors/Verbalizations/Mental Status: [] Eye contact is good. Motor activity is appropriate. Appearance is casual. Speech is Appropriate. Mood is euthymic. Affect is full. Thoughts are linear and logical. No evidence of psychosis. Client Response/Progress/Benefit: [] Pt receptive to session AEB listening attentively to others and taking notes. Pt attentive and contributed throughout psychoeducation on the cognitive triangle and maintenance cycles. Pt engaged during group discussion reviewing the impact of daily activities and behaviors in either reinforcing unhealthy maintenance cycles and depression or assisting in reducing symptoms (?down? vs ?up? activities). Pt participated during interactive discussion in which the group identified their own common up activities (walking, listening to music, car rides, being outside, movement, creative projects, organizing, showering, etc) and down activities (isolating, substance use, sleeping to escapade, and engaging in compulsions). Appeared to benefit from increased awareness of current behaviors and impact these have on mental health. Plan is to discharge successfully from [facility] today. Narrative Note: []
--- NOTE | 2025-03-10 11:10 | BH.SGPN.GN ---
Behaviors/Verbalizations/Mental Status: []Pt alert and oriented, casually dressed and groomed. Eye contact fair. Motor activity appropriate. Speech within normal limits. Affect congruent, mood anxious. Thoughts linear, logical, no signs of hallucinations or delusions. Client Response/Progress/Benefit: [] Pt responded well to session, attentive and engaged in group discussions and activity. Actively engaged in continued discussion about up activities and down activities. Active participant as group discussed values and the benefits that knowing one's values can have on one's mental health. Client completed provided worksheet in which they identified most important personal values and wrote down one opposite action activity can engage in to be more congruent with his value. Benefited from increased awareness of their up activities and how incorporating their values into behavioral activation goals can positively impact mental health. Will continue in IOP to improve distress tolerance, challenge distortions, and prevent decompensation.
--- NOTE | 2025-03-10 15:31 | BH.MDN_ITS ---
Multi-Disciplinary Note Note 30-min Individual: Time Started:: 08:30 Date: 03/10/25 Purpose of session/treatment goals addressed:: To process recent increase in substance use urges and to discuss progress. Eye Contact:: Good Motor Activity:: Appropriate Appearance:: Neat and Casual Speech:: Appropriate Mood:: Euthymic Affect:: Congruent Thoughts:: Linear, Logical and No evidence of hallucinations/delusions noted Staff Interventions:: thought challenging, psychoeducation on: (urge guevara rfing), CBT techniques and discharge planning Client Response:: Pt responded well to session, open to meeting with therapist. Pt reports since last session, she has been doing mostly well, but pt has noted new urges to begin vaping and drinking alcohol again. Pt spent some time in session talking about her hx with substance use and did well to provide insight that it may be due to pt d/c today and all of the transitions she has coming up (leaving IOP, new therapist, going pack to [facility]). Therapist normalized this for pt and commended her for not acting on the urges. Pt receptive of psychoeducation on urge surfing. Pt and therapist spent the remainder of session reviewing her maintenance plan and skill she can use if she continues to have urges to use. Additionally, reflected on pt progress throughout IOP tx. Pt identified being more social, sitting with discomfort, significant progress with exposure goals, as well as increased self-compassion. Risks/Concerns:: Pt denies any suicidal ideation, plan, or intent. Pt denies any thoughts of . Progress Toward Goals/Plan:: Pt continues to make progress towards her tx goals AEB pt's self-report of using coping skills to manage her sx, urges, and the multiple changes in her life. Pt does feel that she is managing her emotions much better than she would have in the past and feels more confident in her abilities. Pt and therapist working on establishing outpatient care with a provider in the area who does erp and dbt treatment. Pt willd/c from IOP tx and begin aftercare program as well as continue with outpatient therapy, case management, and psychiatry services. Time Stopped:: 08:57
== END 2025-03-10 13:35 | disposition home or self-care (01) ==
LOC: BHIOP 08:05
PROVIDERS: PCP Registered Nurse; Referring Provider Internal Medicine; Visit Provider Internal Medicine
DX: F43.10 Post-traumatic stress disorder, unspecified (principal); F41.1 Generalized anxiety disorder
CPT/HCPCS: 36415; 86480; H2012; H2020; S9480; 90832; 90834

== ENCOUNTER → 2025-02-18 | Outpatient (CLI) | payer MEDICAID, SELFPAY ==
[2025-02-21 05:07] LABS: QNTFERON TB Mitogen Value > 10.00 IU/mL (.); QNTFERON TB Nil Value 0.03 IU/mL (.); QNTFERON TB1+ Ag Value 0.03 IU/mL (.); QNTFERON TB2+ Ag Value 0.03 IU/mL (.); QNTIFERON TB Positive Criteria Negative (Negative)
== END | disposition home or self-care (01) ==
PROVIDERS: PCP Registered Nurse; Referring Provider Physician Assistant; Visit Provider Physician Assistant
DX: L40.0 Psoriasis vulgaris (principal)
CPT/HCPCS: 36415; 86480

== ENCOUNTER 2025-03-26 08:00 | Outpatient (RCR) | payer MEDICAID, SELFPAY ==
--- NOTE | 2025-03-26 14:00 | BH.SGPN.GN ---
Behaviors/Verbalizations/Mental Status: []Pt alert and oriented, casually dressed and groomed. Eye contact good. Motor activity appropriate. Speech within normal limits. Affect congruent, mood euthymic. Thoughts linear, logical, no signs of hallucinations or delusions. Client Response/Progress/Benefit: [] Pt took notes and contributed to group discussions. Pt reports following up with their outpatient providers and taking medication. Pt identified coping skills pt has been using which included: deep breathing, asking for help, grounding, and self-advocacy. Pt engaged in discussion self-love, what it is, and how it is formed. Pt worked with peers during the experiential activity and connected it back to acceptance and self-love. Pt shared they can work on doing more things that highlight her strengths. Pt appeared to benefit from learning about self-love strategies and how to accept all parts of themselves. Will continue IOP aftercare to promote gains and reinforce healthy coping skills. Narrative Note: []
--- NOTE | 2025-03-26 15:03 | BH.MTP ---
Master Treatment Plan Patient Information Program Physician:: Dr. Lenora Wise Primary Therapist:: IVANA Bagley Psychiatric Diagnoses Psychiatric Diagnoses:: PTSD; Generalized Anxiety Disorder Diagnosis Code(s):: F41.1 Estimated LOS Estimated LOS (in weeks):: 8 Problem/Goal #1 Problem/Goal #1 Stated Goal:: client will maintain or see a reduction in symptoms AEB client score on the DSM 5 cross-cutting measure and improve client's daily functioning. Objectives Objective #1: Stated Objective: Client will continue to consistently apply healthy coping skills to maintain progress made in IOP tx. Interventions: Through group therapy, client will review warning signs and triggers as well as healthy coping skills learned in IOP tx to successfully maintain gains while transitioning into outpatient therapy. Discharge Criteria: Client will have accomplished this goal when client's score on the DSM-5 cross-cutting measure has maintained or reduced over a 8 week period. Target Date: 05/21/25 Review Date: 04/23/25 Objective #2: Stated Objective: Client will learn and utilize 2-3 maintenance strategies to prevent decompensation from original IOP DSM-5 scores. Interventions: Through group therapy, client will be provided with education on healthy maintenance behaviors, relapse prevention techniques, and healthy coping strategies. Discharge Criteria: Client will have accomplished this goal when can report using at least 2 maintenance skills to prevent decompensation compared to original IOP DSM-5 scores Target Date: 05/21/25 Review Date: 04/23/25
== END 2025-04-19 23:59 ==
LOC: BHOG 08:00
PROVIDERS: PCP Registered Nurse; Referring Provider Student in an Organized Health Care Education/Training Program; Visit Provider Student in an Organized Health Care Education/Training Program
DX: F41.1 Generalized anxiety disorder (principal); F43.10 Post-traumatic stress disorder, unspecified
CPT/HCPCS: 90853

== ENCOUNTER 2025-03-30 08:45 | Day surgery (SDC) | payer MEDICAID, SELFPAY ==
--- NOTE | 2025-03-26 13:50 | PAT.ANESEVAL ---
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 When Was Last Pacemaker Check QUESTION #4 FULL TEXT: You/Your Family Experience fever (hyperthermia) with Anesthesia Last Oral Intake Last Oral intake: Last Oral Intake NPO since Meds taken in AM with sips of water? Meds patient instructed to take am of surgery PONV PONV - recreation superintendent: PONV - recreation superintendent Female Yes 03/26/25 13:36 HX of Motion Sickness No 03/26/25 13:36 HX of N/V After Surgery Yes 03/26/25 13:36 Non-Smoker Yes 03/26/25 13:36 Duration of Surgery greater No 03/26/25 13:36 than 60 minutes Number of Risk Factors 3 03/26/25 13:36 PONV Score Moderate Risk 03/26/25 13:36 Height & Weight Height & Weight: Anesthesia: Height & Weight Height 5 ft 3 in 01/30/25 10:16 Respiratory Assessment Respiratory Assessment - recreation superintendent: Respiratory Tract Infection Hx - recreation superintendent Hx Respiratory Tract Infection No 03/26/25 13:36 STOP Sleep Apnea STOP Sleep Apnea - recreation superintendent: STOP Sleep Apnea - recreation superintendent Hx Hypertension No 03/26/25 13:36 Hx Sleep Apnea Yes 03/26/25 13:36 CPAP Yes: FIGHTING WITH INSURANCE 03/26/25 13:36 FOR APPROVAL BIPAP No 03/26/25 13:36 Do you snore loudly (louder than talking or can be heard Do you often feel tired/ fatigued/ sleepy during daytime? Has anyone observed you stop breathing during sleep? STOP Results Positive 03/26/25 13:36 QUESTION #5 FULL TEXT : Do you snore loudly (louder than talking or can be heard through closed doors)? 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 Specify any problems Hx of Preganancy in last 3 No 03/26/25 13:36 Months Nurse Filling Out Transfusion MGJONO 03/26/25 13:36 & Questions: Date: 03/26/25 03/26/25 13:36 Time: 13:38 03/26/25 13:36 Patient unable to answer at this time (ie. confused, unrespo /Reproduction History /Reproductive History - recreation superintendent: /Reproductive Hx- recreation superintendent Hx Now No 03/26/25 13:36 Gestational Age (in weeks): EDC: Hx Hx Para Hx Section SAB No 03/26/25 13:36 Does the father of the baby or his family experience fever w Father of the baby Malignant Hypertension history comment [facility] Medical History (Updated 03/26/25 @ 13:44 by Gudelia Urias) Psoriasis Fatty liver PONV (postoperative nausea and vomiting) Gastric reflux Cirrhosis Histoplasmosis Arthritis Low iron Injury of head and neck Esophageal abnormality History of IBS Non-smoker CPAP (continuous positive airway pressure) dependence Sleep apnea Chronic cough History of stress test Ankle pain, left Right wrist sprain Left knee pain Strain of Achilles tendon Contact with or exposure to other viral diseases URI (upper respiratory infection) Sprain of left foot Left ankle sprain Contusion of left knee Anxiety Home Medications Medication Instructions Recorded Last Taken Type ergocalciferol (vitamin D2) 1,250 1,250 mcg PO QWEEK 06/09/24 09/10/24 History mcg (50,000 unit) capsule ferrous sulfate 325 mg (65 mg 325 mg PO BID 06/09/24 09/10/24 History iron) tablet flax seed oil 1,000 mg PO DAILY 06/09/24 09/10/24 History hydroxyzine HCl 25 mg tablet 25 mg PO Q8H PRN anxiety 06/09/24 Unknown History magnesium hydroxide 400 mg (170 mg 400 mg PO DAILY 06/09/24 09/10/24 History magnesium) chewable tablet ondansetron HCl 4 mg tablet 4 mg PO Q8H PRN nausea and vomiting 06/09/24 Unknown History sumatriptan succinate 25 mg tablet See Rx Instructions PO .COMPLEX 06/09/24 Unknown History buspirone 7.5 mg tablet 7.5 mg PO TID 01/14/25 Unknown History lansoprazole 30 mg capsule,delayed 30 mg PO QDAY #90 caps 01/27/25 Unknown Rx release naltrexone 50 mg tablet 50 mg PO DAILY 01/30/25 Unknown History quetiapine 300 mg tablet,extended 300 mg PO QHS 01/30/25 Unknown History release 24 hr (Seroquel XR) ondansetron HCl 4 mg tablet 4 mg PO Q4H PRN nausea and 02/04/25 Unknown Rx vomiting #6 tabs sodium sul 1.479 gram-potas ch See Rx Instructions PO .COMPLEX 02/04/25 Unknown Rx 0.188 gram-magnes sul 0.225 gram #28 tabs tablet (Sutab) trazodone 50 mg tablet 50 mg PO QHS 03/26/25 Unknown History Allergy/AdvReac Type Severity Reaction Status Date / Time amoxicillin Allergy Upset Verified 03/26/25 13:31 Stomach erythromycin base Allergy Upset Verified 03/26/25 13:31 Stomach Penicillins (PCN) Allergy Upset Verified 03/26/25 13:31 Stomach azithromycin (From Zithromax) AdvReac Intermediate Hives Verified 03/26/25 13:31 metronidazole (From Flagyl) AdvReac Intermediate Rash Verified 03/26/25 13:31 sulfamethoxazole (From AdvReac Intermediate Rash Verified 03/26/25 13:31 Bactrim) trimethoprim (From Bactrim) AdvReac Intermediate Rash Verified 03/26/25 13:31 Family History Mother Alcohol abuse Breast cancer Hypertension Muscle weakness Substance abuse Father Alcohol abuse Hypertension Grandmother Breast cancer Cancer Sister Hypertension Surgical History (Updated 03/26/25 @ 13:35 by Gudelia Urias) History of surgery History of esophagogastroduodenoscopy (EGD) History of colonoscopy History of hysterectomy Hx of breast reduction, elective Hx of cholecystectomy Social History sexually active: No Smoking Status: Never smoker alcohol intake: never substance use type: does not use Audit: Pertinent Findings Pertinent Findings Stress test pertinent findings: Negative Stress EKG for ischemia (06/2023) Recommendation Anesthesia Recommendation Anesthesia recommendation: OPTIMIZED for anesthesia
[2025-03-30] VITALS (8 sets, daily range): BP systolic 98–123; BP diastolic 54–83; PULSE 55–105; RESP 16; TEMP 36.2–36.4; O2SAT 97–100; BMI 38.0
[2025-03-30] MEDS: Lactated Ringers 1,000 ML 15 ML IV (09:19)
--- NOTE | 2025-03-30 09:23 | HP.PCM_ITS ---
HPI - General General Date of Admission: 03/30/25 Date of Service: 03/30/25 Chief Complaint: Nausea and abdominal pain HPI Narrative MATT DRUMMOND, is a 24 F who presents [24-year-old female presenting with ongoing abdominal pain, nausea, and vomiting. The abdominal pain is localized to the left side, described as burning and achy, and worsens with eating. The nausea is severe, often leading to vomiting shortly after eating, and requires frequent use of Zofran to manage symptoms. History of hyponatremia and pneumonia, for which she was hospitalized in July. She reports persistent nausea dating back to childhood, worse over the past year with no significant weight loss. A gastric emptying study was unremarkable, and an EGD revealed erosive gastropathy with negative biopsies. A CT scan indicated possible fatty liver, confirmed by biopsy. 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 She has been on various medications, including naltrexone, which may contribute to her symptoms. Dietary modifications, including gluten and dairy elimination, have not alleviated symptoms. The patient has also tried a low FODMAP diet with no improvement. She has had an extensive work-up which has not yielded a cause for symptoms. I have ordered a SIBO breath test and recommend following-up with Psychiatric physician to discuss potential of naltrexone as a likely contributor for ongoing N/V. Patient Instructions: - Complete the SIBO breath test at home following the provided instructions. - Discuss the use of naltrexone with your psychiatrist, especially regarding its potential contribution to nausea and vomiting. - Continue taking Protonix and Zofran as prescribed. - Follow up with primary care and psychiatrist as scheduled. ABD US 08/08/2024 1. Cholecystectomy without biliary dilatation. If unexplained symptoms persist, consider CT. 2. Additional description as above. FibroScan was completed 06/17/2024 (F4/S1) Cirrhosis with mild liver fat. IQR is 30%, while at the top end of normal, still raises concern for validity of results. ELF completed 06/26/2024 revealed an intermediate risk 8.84. LIVER BIOPSY: 09/16/2024 Your liver biopsy does not show any signs of histoplasmosis. However, the biopsy did show some early changes in the liver related to fat buildup. The accumulation of fat in the liver has caused some mild irritation or stress on the liver cells, but no scarring or serious damage at this point. These changes are often linked to factors like weight, blood sugar, or cholesterol, and resolution involves healthy lifestyle changes with a balanced diet, regular activity, and managing any related conditions. As we had previously discussed your serological workup was normal. I recommend scheduling a consultation with our roof bolter Dr. Salcedo to review metabolic associated steatotic liver disease (MASLD). GES was unremarkable November 2023. EGD August 2023 revealed erosive gastropathy with negative esophageal, gastric and duodenal biopsies. CT completed April 2024 revealed possible fatty liver. ACTH unremarkable [employer] Breath testing is normal - nausea and vomiting dating back to grade school - vomiting is usually within 20-30 minutes of eating - wakes up with nausea and goes to bed with it - nausea does not worsen with morning meds as long as she eats with them - weight is down 4lbs - started on Bupropion TID for anxiety - ondansetron once a week - reports psych did not feel - trigger foods (corn, gluten, lettuce, pineapple, peppers) avoids these and cunha snot have emesis - failed Omeprazole in the past, was not effective - works at [email or web address] on the weekends - nausea when severe will prevent her from doing things, "maybe like once a week" - missed a day of work a week ago - as noted improvement in abdominal pain - psychiatrist has recommended IOP for therapy, every day 9am to 12noon [facility] Medical History (Updated 03/26/25 @ 13:44 by Gudelia Urias) Psoriasis Fatty liver PONV (postoperative nausea and vomiting) Gastric reflux Cirrhosis Histoplasmosis Arthritis Low iron Injury of head and neck Esophageal abnormality History of IBS Non-smoker CPAP (continuous positive airway pressure) dependence Sleep apnea Chronic cough History of stress test Ankle pain, left Right wrist sprain Left knee pain Strain of Achilles tendon Contact with or exposure to other viral diseases URI (upper respiratory infection) Sprain of left foot Left ankle sprain Contusion of left knee Anxiety Home Medications Medication Instructions Recorded Last Taken Type ergocalciferol (vitamin D2) 1,250 1,250 mcg PO QWEEK 0 06/09/24 09/10/24 History mcg (50,000 unit) capsule ferrous sulfate 325 mg (65 mg 325 mg PO BID 06/09/24 0 09/10/24 History iron) tablet flax seed oil 1,000 mg PO DAILY 06/09/24 0 09/10/24 History hydroxyzine HCl 25 mg tablet 25 mg PO Q8H PRN anxiety 06/09/24 Unknown History magnesium hydroxide 400 mg (170 mg 400 mg PO DAILY 09/10/24 History magnesium) chewable tablet ondansetron HCl 4 mg tablet 4 mg PO Q8H PRN nausea and vomiting 06/09/24 Unknown History sumatriptan succinate 25 mg tablet See Rx Instructions PO .COMPLEX 06/09/24 Unknown History buspirone 7.5 mg tablet 7.5 mg PO TID 01/14/25 Unkno wn History lansoprazole 30 mg capsule,delayed 30 mg PO QDAY #90 c aps 01/27/25 Unknown Rx release naltrexone 50 mg tablet 50 mg PO DAILY 01/30/25 Unkn own History quetiapine 300 mg tablet,extended 300 mg PO QHS Unknown History release 24 hr (Seroquel XR) ondansetron HCl 4 mg tablet 4 mg PO Q4H PRN nausea and 02/04/25 Unknown Rx vomiting #6 tabs sodium sul 1.479 gram-potas ch See Rx Instructions PO .COMPLEX 02/04/25 Unknown Rx 0.188 gram-magnes sul 0.225 gram #28 tabs tablet (Sutab) trazodone 50 mg tablet 50 mg PO QHS 03/26/25 Unknow n History Allergy/AdvReac Type Severity Reaction Status Date / Time amoxicillin Allergy Upset Verified 03/30/25 09:08 Stomach erythromycin base Allergy Upset Verified 03/30/25 09:08 Stomach Penicillins (PCN) Allergy Upset Verified 03/30/25 09:08 Stomach azithromycin (From Zithromax) AdvReac Intermediate Hives Verified 03/30/25 09:08 metronidazole (From Flagyl) AdvReac Intermediate Rash Verified 03/30/25 09:08 sulfamethoxazole (From AdvReac Intermediate Rash Verified 03/30/25 09:08 Bactrim) trimethoprim (From Bactrim) AdvReac Intermediate Rash Verified 03/30/25 09:08 Family History Mother Alcohol abuse Breast cancer Hypertension Muscle weakness Substance abuse Father Alcohol abuse Hypertension Grandmother Breast cancer Cancer Sister Hypertension Surgical History (Updated 03/26/25 @ 13:35 by Gudelia Urias) History of surgery History of esophagogastroduodenoscopy (EGD) History of colonoscopy History of hysterectomy Hx of breast reduction, elective Hx of cholecystectomy Social History sexually active: No Smoking Status: Never smoker alcohol intake: never substance use type: does not use Vital Signs Vital Signs Vital Signs: 03/30/25 09:10 03/30/25 09:10 Temperature 97.5 F L Temperature Source Temporal Pulse Rate 105 H Respiratory Rate 16 Respiratory Pattern Normal Blood Pressure 115/75 Blood Pressure Mean 88 Blood Pressure Source Monitor Blood Pressure Position Semi-Fowlers Blood Pressure Location Left Arm Pulse Ox 97 Oxygen Delivery Method Room Air Weight Weight: 214 lb 8.156 oz Body Mass Index (BMI) 38.0 Assessment & Plan Assessment/Plan (1) MALORIE (generalized anxiety disorder): (2) LUQ pain: (3) Anemia: PLAN: Assessment and Plan Assessment and Plan (1) Nausea: Status: Acute Medications: New lansoprazole take once daily in the morning on an empty stomach 30 mg PO QDAY 7 caps 1RF Discontinued naltrexone Discontinued Reason: Order Completed 50 mg PO QDAY On Hold pantoprazole Hold Comment: will trial another PPI for 7 days 40 mg PO QDAY Plan 24y/o female presents for follow-up of nausea. She remains on pantoprazole 40mg daily and ondansetron PRN (typically once daily). She does endorse infrequent emesis and reports decrease in use of ondansetron. She is avoiding trigger foods and has noted a reduction in severe nausea and emesis. She will trial a different daily PPI for 7 days and keep me apprised of her symptoms. Patient Instructions: Hold pantoprazole for 7 days and trial Lansoprazole Provide symptom update in 1 week Follow-up in the [id number] in 4 months ]
--- NOTE | 2025-03-30 09:35 | PRE.ANES_ITS ---
ASA Classification* ASA Classification ASA Classification: 2 (BMI 38, Asthma, NATASHA (uncompliant), GERD, PONV, anxiety, borderline personality. Pt states she gets nauseous during colonscopy/EGDs) and 3 Assessment & Plan Anesthesia* Anesthesia Assessment Anesthesia Assessment: Discussed sedation and/or anesthesia options, risks, benefits, and alternatives with patient/parents/legal guardian/POA. Questions invited. The patient/parents/legal guardian/POA seems to understand and agrees to proceed with anesthesia plan. Reviewed the physical assessment, medical history, allergy history and patient home medications list prior to surgery/procedure/anesthetic and documented any changes. Performed airway and anesthesia risk assessments. Anesthesia Type Anesthesia Type: MAC History Source History Obtained from:: Patient and Chart Anesthesia Focused Assessment* Temperature: 97.5 F Pulse Rate: 105 Blood Pressure: 115/75 Respiratory Rate: 16 Pulse Ox: 97 Oxygen Delivery Method: Room Air Airway Assessment Mouth opens: >3 cm Mallampati Score: II Teeth Condition: Intact Neck Range of motion (ROM): Full ROM Labs Anesthesia Preop lab: CBC WBC, (4.4-11.0) 7.4 K/mm3 08/26/24, 07:56 RBC, (4.2-5.4) 4.01 M/mm3 L 08/26/24, 07:56 Hgb, (12.0-15.0) 11.8 g/dL L 08/26/24, 07:56 Hct, (37-47) 35.1 % L 08/26/24, 07:56 Plt Count, (150-450) 297 K/mm3 08/26/24, 07:56 CHEMISTRY Potassium, (3.3-5.1) 3.9 mmol/L 11/14/24, 13:53 Sodium, (133-145) 137 mmol/L 11/14/24, 13:53 BUN, (4-19) 13 mg/dL 11/14/24, 13:53 Creatinine, (0.70-1.20) 0.71 mg/dL 11/14/24, 13:53 Glucose, (70-99) 100 mg/dL H 11/14/24, 13:53 TSH, (0.358-3.74) 3.38 uIU/mL 11/23/22, 08:06 COAG PT, (11.7-14.9) 12.8 SECONDS 08/11/24, 09:17 Tst Clinic Negative 03/09/23, 17:38 Pre-Assessment Diagnosis/Proposed Procedure Planned Operative Procedure(s): COLONOSCOPY Anesthesia History 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 When Was Last Pacemaker Check QUESTION #4 FULL TEXT: You/Your Family Experience fever (hyperthermia) with Anesthesia Last Oral Intake Last Oral intake: Last Oral Intake NPO since 23:00 03/30/25 09:10 Meds taken in AM with sips of No 03/30/25 09:10 water? Meds patient instructed to take am of surgery PONV PONV - asbestos siding mechanic: PONV - asbestos siding mechanic Female Yes 03/26/25 13:36 HX of Motion Sickness No 03/26/25 13:36 HX of N/V After Surgery Yes 03/26/25 13:36 Non-Smoker Yes 03/26/25 13:36 Duration of Surgery greater No 03/26/25 13:36 than 60 minutes Number of Risk Factors 3 03/26/25 13:36 PONV Score Moderate Risk 03/26/25 13:36 Height & Weight Height & Weight: Anesthesia: Height & Weight Height 5 ft 3 in 03/30/25 09:10 Weight: 97.3 kg 03/30/25 09:10 Body Mass Index (BMI) 38.0 03/30/25 09:10 Respiratory Assessment Respiratory Assessment - asbestos siding mechanic: Respiratory Tract Infection Hx - asbestos siding mechanic Hx Respiratory Tract Infection No 03/26/25 13:36 STOP Sleep Apnea STOP Sleep Apnea - asbestos siding mechanic: STOP Sleep Apnea - asbestos siding mechanic Hx Hypertension No 03/26/25 13:36 Hx Sleep Apnea Yes 03/26/25 13:36 CPAP Yes: FIGHTING WITH INSURANCE 03/26/25 13:36 FOR APPROVAL BIPAP No 03/26/25 13:36 Do you snore loudly (louder than talking or can be heard Do you often feel tired/ fatigued/ sleepy during daytime? Has anyone observed you stop breathing during sleep? STOP Results Positive 03/26/25 13:36 QUESTION #5 FULL TEXT : Do you snore loudly (louder than talking or can be heard through closed doors)? Tobacco Use History Tobacco Use History - asbestos siding mechanic: Tobacco Use History - asbestos siding mechanic Tobacco Use Smoking Status Never smoker 03/26/25 13:36 Hx Tobacco Use No 03/26/25 13:36 Years Smoking Packs Smoked per Day Smoking Cessation Date was within the last 15 years Hx Smoking Cessation Date Hx Smoking Cessation Counseling Hematologic Medial History Hematologic Hx - asbestos siding mechanic: Hematologic Medical Hx - pipe straightener Hx of Blood Transfusion No 03/26/25 13:36 Hx of Transfusion in last 3 No 03/26/25 13:36 Months Date of Last Transfusion (if within last 3 months) Ever experience any problems No 03/26/25 13:36 with transfusion(s)? Specify any problems Hx of Preganancy in last 3 No 03/26/25 13:36 Months Nurse Filling Out Transfusion MGJONO 03/26/25 13:36 & Questions: Date: 03/26/25 03/26/25 13:36 Time: 13:38 03/26/25 13:36 Patient unable to answer at this time (ie. confused, unrespo /Reproduction History /Reproductive History - asbestos siding mechanic: /Reproductive Hx- asbestos siding mechanic Hx Now No 03/26/25 13:36 Gestational Age (in weeks): EDC: Hx Hx Para Hx Section SAB No 03/26/25 13:36 Does the father of the baby or his family experience fever w Father of the baby Malignant Hypertension history comment Active Medications Active Medications: Current Medications Generic Name Dose Route Start Last Admin Trade Name Freq PRN Reason Stop Dose Admin Lactated Ringer's 1,000 mls @ 15 mls/hr 03/30/25 09:30 03/30/25 09:19 IV 15 mls/hr .Q48H BRANDIE Administration PFSH Medical History (Updated 03/26/25 @ 13:44 by Gudelia Urias) Psoriasis Fatty liver PONV (postoperative nausea and vomiting) Gastric reflux Cirrhosis Histoplasmosis Arthritis Low iron Injury of head and neck Esophageal abnormality History of IBS Non-smoker CPAP (continuous positive airway pressure) dependence Sleep apnea Chronic cough History of stress test Ankle pain, left Right wrist sprain Left knee pain Strain of Achilles tendon Contact with or exposure to other viral diseases URI (upper respiratory infection) Sprain of left foot Left ankle sprain Contusion of left knee Anxiety Home Medications Medication Instructions Recorded Last Taken Type ergocalciferol (vitamin D2) 1,250 1,250 mcg PO QWEEK 0 06/09/24 09/10/24 History mcg (50,000 unit) capsule ferrous sulfate 325 mg (65 mg 325 mg PO BID 06/09/24 0 09/10/24 History iron) tablet flax seed oil 1,000 mg PO DAILY 06/09/24 0 09/10/24 History hydroxyzine HCl 25 mg tablet 25 mg PO Q8H PRN anxiety 06/09/24 Unknown History magnesium hydroxide 400 mg (170 mg 400 mg PO DAILY 09/10/24 History magnesium) chewable tablet ondansetron HCl 4 mg tablet 4 mg PO Q8H PRN nausea and vomiting 06/09/24 Unknown History sumatriptan succinate 25 mg tablet See Rx Instructions PO .COMPLEX 06/09/24 Unknown History buspirone 7.5 mg tablet 7.5 mg PO TID 01/14/25 Unkno wn History lansoprazole 30 mg capsule,delayed 30 mg PO QDAY #90 c aps 01/27/25 Unknown Rx release naltrexone 50 mg tablet 50 mg PO DAILY 01/30/25 Unkn own History quetiapine 300 mg tablet,extended 300 mg PO QHS Unknown History release 24 hr (Seroquel XR) ondansetron HCl 4 mg tablet 4 mg PO Q4H PRN nausea and 02/04/25 Unknown Rx vomiting #6 tabs sodium sul 1.479 gram-potas ch See Rx Instructions PO .COMPLEX 02/04/25 Unknown Rx 0.188 gram-magnes sul 0.225 gram #28 tabs tablet (Sutab) trazodone 50 mg tablet 50 mg PO QHS 03/26/25 Unknow n History Allergy/AdvReac Type Severity Reaction Status Date / Time amoxicillin Allergy Upset Verified 03/30/25 09:08 Stomach erythromycin base Allergy Upset Verified 03/30/25 09:08 Stomach Penicillins (PCN) Allergy Upset Verified 03/30/25 09:08 Stomach azithromycin (From Zithromax) AdvReac Intermediate Hives Verified 03/30/25 09:08 metronidazole (From Flagyl) AdvReac Intermediate Rash Verified 03/30/25 09:08 sulfamethoxazole (From AdvReac Intermediate Rash Verified 03/30/25 09:08 Bactrim) trimethoprim (From Bactrim) AdvReac Intermediate Rash Verified 03/30/25 09:08 Family History Mother Alcohol abuse Breast cancer Hypertension Muscle weakness Substance abuse Father Alcohol abuse Hypertension Grandmother Breast cancer Cancer Sister Hypertension Surgical History (Updated 03/26/25 @ 13:35 by Gudelia Urias) History of surgery History of esophagogastroduodenoscopy (EGD) History of colonoscopy History of hysterectomy Hx of breast reduction, elective Hx of cholecystectomy Social History sexually active: No Smoking Status: Never smoker alcohol intake: never substance use type: does not use Review of Systems (Anesthesia) ROS Narrative System reviewed and no additional complaints, except as documented. Physical Exam Const alert and oriented x3 Nutritional Appearance: obese Resp normal respiratory effort, normal air movement and clear to auscultation bilaterally Cardio regular rate, regular rhythm and no murmurs
--- NOTE | 2025-03-30 10:15 | COLBX_PTH ---
PATIENT: MATT DRUMMOND LOC: EN U#:[id number] AGE/SX: 24/F ROOM: RE03/30/[address]: Dr. Maverick Erickson DO : 2000 BED: DIS: 03/30/2025 SPEC #: [id number] RECD: 03/30/25 11:40 STATUS: MARY REKira #: [id number] EDMOND: 03/30/25 10:[address]: Maverick Erickson DEPT: SURGICAL PATHOLOGY RECD BY: Dany Keane ENTERED: 03/30/25 13:04 SP TYPE: COLON BX PAPA DR: Evelyne Cruz, ROBOT PROGRAMMER-C Tissues: A - COLON BIOPSY Procedures: Surgery Specimen Level IV HEADER OPERATION: Colonoscopy PRE-OP DIAGNOSIS: Generalized anxiety disorder, left upper quadrant pain, anemia TISSUE SUBMITTED: A- Random colon biopsy MICROSCOPIC DIAGNOSIS A. Colon, random, biopsy: - No specific pathologic change. - The histologic features of microscopic colitis are not demonstrated. MICROSCOPIC DESCRIPTION Slides are reviewed. GROSS DESCRIPTION A. Received in fixative is one container labeled with the patient's name and designated "Random colon biopsy." The specimen consists of multiple irregular fragments of chester tissue that in aggregate measure 1.5 x 0.8 x 0.2 cm. The specimen is totally submitted in one cassette. OK 03/30/2025 CPT:22216
--- NOTE | 2025-03-30 10:55 | PCM.POST.ANE ---
Anesthesia: Postop Eval I Current Vital Signs Temperature: 97.1 F Pulse Rate: 62 Blood Pressure: 123/83 Respiratory Rate: 16 Pulse Ox: 100 Oxygen Delivery Method: Room Air Assessment Airway patent: Yes Spontaneous unlabored respirations: Yes Mental status: Asleep nausea: No Vomiting: No Anesthesia Complication: No Fluid Hydration Crystalloid volume administer (ml): 600 Total IV fluid infused: 600 Progress Note Anesthesia document: Postop Eval 1 completed: Yes
--- NOTE | 2025-03-30 11:00 | OP.COLON_ITS ---
Patient Name: Laura Calabrese Procedure Date: 03/30/2025 10:18 AM Date of : 2000 Age: 24 Procedure: Colonoscopy Indications: Generalized abdominal pain, Clinically significant diarrhea of unexplained origin Providers: Maverick Erickson DO Referring MD: Lena Beatty Medicines: Monitored Anesthesia Care Patient Profile: This is a 24 year old female. Refer to note in patient chart for documentation of history and physical. Last Colonoscopy: none. The patient's first colonoscopy is today. Complications: No immediate complications. Procedure: Pre-Anesthesia Assessment: - Prior to the procedure, a History and Physical was performed, and patient medications and allergies were reviewed. The patient is competent. The risks and benefits of the procedure and the sedation options and risks were discussed with the patient. All questions were answered and informed consent was obtained. Patient identification and proposed procedure were verified by the physician in the pre-procedure area. Mental Status Examination: alert and oriented. Respiratory Examination: clear to auscultation. CV Examination: normal. Prophylactic Antibiotics: The patient does not require prophylactic antibiotics. Prior Anticoagulants: The patient has taken no anticoagulant or antiplatelet agents except for NSAID medication. ASA Grade Assessment: II - A patient with mild systemic disease. After reviewing the risks and benefits, the patient was deemed in satisfactory condition to undergo the procedure. The anesthesia plan was to use monitored anesthesia care (MAC). Immediately prior to administration of medications, the patient was re-assessed for adequacy to receive sedatives. The heart rate, respiratory rate, oxygen saturations, blood pressure, adequacy of pulmonary ventilation, and response to care were monitored throughout the procedure. The physical status of the patient was re-assessed after the procedure. After I obtained informed consent, the scope was passed under direct vision. Throughout the procedure, the patient's blood pressure, pulse, and oxygen saturations were monitored continuously. The Colonoscope was introduced through the anus and advanced to the terminal ileum. The colonoscopy was performed without difficulty. The patient tolerated the procedure well. The quality of the bowel preparation was adequate. The terminal ileum, ileocecal valve, appendiceal orifice, and rectum were photographed. Scope In: 10:31:43 AM Scope Withdrawal Time 0 hours 9 minutes 51 seconds Scope Out: 10:45:58 AM Total Procedure Duration Time 0 hours 14 minutes 15 seconds Findings: The perianal and digital rectal examinations were normal. An area of mildly congested mucosa was found in the rectum, in the recto-sigmoid colon, in the sigmoid colon, in the transverse colon, in the ascending colon and in the cecum. Biopsies were taken with a cold forceps for histology. Verification of patient identification for the specimen was done. Estimated blood loss was minimal. The terminal ileum appeared normal. The exam was otherwise without abnormality on direct and retroflexion views. Impression: - Congested mucosa in the rectum, in the recto-sigmoid colon, in the sigmoid colon, in the transverse colon, in the ascending colon and in the cecum. Biopsied. - The examined portion of the ileum was normal. - The examination was otherwise normal on direct and retroflexion views. Recommendation: - Discharge patient to home. - Resume previous diet. - Continue present medications. - Await pathology results. - Repeat colonoscopy in 5 years for surveillance. Procedure Code(s): --- Professional --- 48114, Colonoscopy, flexible; with biopsy, single or multiple CPT copyright 2021 [employer]. All rights reserved. The codes documented in this report are preliminary and upon braille coder review may be revised to meet current compliance requirements. Maverick Erickson DO 03/30/2025 10:59:26 AM This report has been signed electronically. Number of Addenda: 0 Note Initiated On: 03/30/2025 10:18 AM
--- NOTE | 2025-03-30 11:00 | OP.PROVAT_ITS ---
03/30/2025 Lean Beatty Re : Colonoscopy procedure for Laura Calabrese Dear Nancy This procedure was performed on Sunday, March 30, 2025. My impressions and recommendations are as follows: Impressions : - Congested mucosa in the rectum, in the recto-sigmoid colon, in the sigmoid colon, in the transverse colon, in the ascending colon and in the cecum. Biopsied. - The examined portion of the ileum was normal. - The examination was otherwise normal on direct and retroflexion views. Recommendations : - Discharge patient to home. - Resume previous diet. - Continue present medications. - Await pathology results. - Repeat colonoscopy in 5 years for surveillance. My findings are described in the full procedure note, which is enclosed. If I can be of further assistance, please feel free to contact me at . Sincerely, Maverick Erickson, 03/30/2025 10:59:26 AM This report has been signed electronically.
--- NOTE | 2025-03-30 13:46 | PCM.POSTANE2 ---
Anesthesia Postop Eval I Sum Postop Eval Completion status Anesthesia document: Postop Eval 1 completed: Yes Anesthesia Postop Eval I Summary Anesthesia Postop Eval I Summary: Anesthesia Postop Eval I: Assessment Summary Airway patent Yes 03/30/25 10:57 [email or web address] Spontaneous unlabored Yes 03/30/25 10:57 [email or web address] respirations Mental status Asleep 03/30/25 10:57 [email or web address] nausea No 03/30/25 10:57 [email or web address] Vomiting No 03/30/25 10:57 [email or web address] Anesthesia Postop Eval I: Fluid Summary Crystalloid volume administer 600 03/30/25 10:58 [email or web address] (ml) Colloids volume administered ( ml) Blood Product volume administered (ml) Total IV fluid infused 600 03/30/25 10:58 [email or web address] Anesthesia Postop Eval I: Summary Notes Anesthesia Complication No 03/30/25 10:57 [email or web address] Anesthesia Complication Comment: Post-operative progress note Anesthesia: Postop Eval II Evaluation Mental status: Awake Pain Level: 0 nausea: No Vomiting: No Complications Anesthesia Complication: No
== END 2025-03-30 11:21 | disposition home or self-care (01) ==
LOC: EN 08:47 → AC 08:50
PROVIDERS: PCP Registered Nurse; Referring Provider Registered Nurse; Visit Provider Internal Medicine Gastroenterology
DX: R10.84 Generalized abdominal pain (principal); R10.12 Left upper quadrant pain; D64.9 Anemia, unspecified; K21.9 Gastro-esophageal reflux disease without esophagitis; Z90.49 Acquired absence of other specified parts of digestive tract; J45.909 Unspecified asthma, uncomplicated; E66.9 Obesity, unspecified
CPT/HCPCS: 45380; 88305; J2405

== ENCOUNTER 2025-04-20 08:07 | Outpatient (RCR) | payer MEDICAID, SELFPAY ==
--- NOTE | 2025-04-23 10:20 | BH.MTP_ITS ---
Treatment Plan Review Demographics Date of Admission:: 03/26/25 Date of Treatment Plan Review:: 04/23/25 Admitting Diagnoses:: PTSD; Generalized Anxiety Disorder Current Diagnoses:: PTSD; Generalized Anxiety Disorder Patient Status Patient's Response to Treatment:: Pt responding well to treatment AEB pt's consistent attendance, active engagement in group discussions, follow up with outpatient providers, and reporting use of skills outside treatment environment. Pt utilizes IOP aftercare to process current stressors, maintain mood stability, further progress on ERP goals, practice giving herself credit for daily accomplishments, continue to work on challenging negative core beliefs and unrealistic expectations of self, and identify more adaptive coping strategies. Status of Current Problems and Symptoms: Ongoing stressors include maintaining progress made in IOP, managing her emotions, and continuing to improve her ability to manage PTSD triggers, also taking care of herself. Pt self-reports she has moments of negative thinking, and anxiety, but it is still manageable. Progress Problem #1: Problem Name:: Pt will maintain or decrease symptoms from IOP admission data. Status of Goals:: Obj 1 - ongoing work encouraged- Pt has been able to maintain gains made in IOP per self-report; however pt’s DSM-5 scores are 1 point higher than they were at IOP admission. This may be in part due to increased focus on working through pt’s trauma on an outpatient basis. Obj 2 - complete with ongoing work encouraged. Pt has been consistently reporting self- care, thought challenging, gratitude, and using healthy coping skills. She struggles at times with recognizing and challenging negative core beliefs; however, pt is continuing to make consistent strides in better challenging and replacing these thoughts. Team Recommendations:: Recommended client continue IOP aftercare group to show maintenance of progress. Will continue to encourage client to attend regular outpatient counseling and psychiatry appointments as well.
--- NOTE | 2025-04-23 14:00 | BH.SGPN.GN ---
Behaviors/Verbalizations/Mental Status: []Pt alert and oriented, casually dressed and appropriately groomed. Eye contact good. Motor activity appropriate. Speech within normal limits. Affect congruent, mood euthymic, anxious. Thoughts linear, logical, no signs of hallucinations or delusions. Client Response/Progress/Benefit: []Client active participant in group session AEB providing contributions to group discussion. Client reported they have been following through with counseling and medication consistency. Client identified utilizing several different coping skills to help continue to regulate emotions and challenge thoughts. Skills included: opposite action, music, and reaching out to healthy supports. Client attentive to psychoeducation about gratitude and provided contributions throughout. Client created gratitude plan for the week, this included starting the day with uplifting music. Client seemed to benefit from learning about gratitude and creating a week gratitude plan. Pt to continue IOP to promote utilization of healthy coping skills, challenge distortions, and prevent decompensation. Narrative Note: []
--- NOTE | 2025-04-30 14:00 | BH.SGPN.GN ---
Behaviors/Verbalizations/Mental Status: []Pt alert and oriented, neatly dressed and groomed. Eye contact good. Motor activity appropriate. Speech within normal limits. Affect congruent, mood euthymic. Thoughts linear, logical, no signs of hallucinations or delusions. Client Response/Progress/Benefit: [] Pt responded well to session, completed their self-reflection worksheet. Pt noted they have met with their therapist since last session, they have been taking medication consistently, and used coping skills like deep breathing, gratitude, self-soothing, and opposite action. Pt also noted they completed last week’s homework and found it helpful. Pt engaged well during the discussion of the components of self-compassion. Pt connected with the benefits of self-compassion and participated in the activity of reframing a recent setback using self-compassion. Pt used self-compassion to combat negative self-talk and shared plan to work on this throughout the week. Pt appeared to benefit from practicing self-compassion and connecting with peers. Will continue aftercare to promote mood stability and reinforce healthy coping skills. Narrative Note: []
== END 2025-05-20 23:59 ==
LOC: BHOG 08:07
PROVIDERS: PCP Registered Nurse; Referring Provider Student in an Organized Health Care Education/Training Program; Visit Provider Student in an Organized Health Care Education/Training Program
DX: F43.10 Post-traumatic stress disorder, unspecified (principal); F41.1 Generalized anxiety disorder
CPT/HCPCS: 90853

== ENCOUNTER → 2025-05-06 | Outpatient (CLI) | payer MEDICAID, SELFPAY ==
--- NOTE | 2025-05-06 10:42 | NM_ITS ---
PROCEDURE: GASTRIC EMPTYING STUDY 05/06/2025 REASON FOR EXAM: ABD PAIN, NAUSEA, DIARRHEA COMPARISON: None TECHNIQUE: Procedure Code: NMGES Modality: NM Procedure: GASTRIC EMPTYING STUDY The patient ingested a standard meal of oatmeal, radiopharmaceutical and water. There was vomiting postprandially. Anterior and posterior planar images of the upper abdomen were obtained for 1 minute immediately following the meal at 1h, 2h and 4h if more than 10% of the activity persisted within the stomach. Regions of interest were drawn, and a geometric mean was used to calculate a [id number]. RADIOPHARMACEUTICAL: [employer] sulfur colloid DOSE 1.2mCi FINDINGS: Percent activity remaining in stomach: 1 hour 34 % (normal 37-90%) NM/Gastric Emptying Study IMPRESSION: Normal gastric emptying. Reading Location: [id number]
== END | disposition home or self-care (01) ==
PROVIDERS: PCP Registered Nurse; Referring Provider Internal Medicine Gastroenterology; Visit Provider Internal Medicine Gastroenterology
DX: R10.11 Right upper quadrant pain (principal); R19.7 Diarrhea, unspecified; R11.0 Nausea; R10.12 Left upper quadrant pain
CPT/HCPCS: 78264; A9541

== ENCOUNTER 2025-05-09 20:48 | Emergency (ER) | payer MEDICAID, SELFPAY ==
[2025-05-09 20:49] VITALS: BP 143/85; PULSE 109; RESP 18; TEMP 36.7; O2SAT 99; BMI 38.8
--- NOTE | 2025-05-09 20:58 | EX.ED.VIS.UR ---
HPI HPI - URI History of Present Illness Chief Complaint: Cough Detail of Chief Complaint: Cough x 3 weeks Informant: patient Onset/Context/Timing Onset: Weeks (Started 3 weeks ago) Context: Sudden Onset Timing: Intermittent Quality: Initially productive now nonproductive Location: Upper respiratory Current Severity: Moderate Maximum Severity: Severe Worsened by: Not Worsened By Swallowing, Eating Solids or Drinking Liquids Relieved by: Not Relieved By Tylenol or NSAIDs Associated Symptoms Associated Symptoms: Positive for Nasal Congestion (Initially), Myalgias (Initially), Shortness of Breath, Nonproductive cough and Productive Cough (First 2 to 3 days); Negative for Headache, Sinus Pressure, Nausea, Vomiting, Diarrhea, Chest Pain or Hemoptysis Narrative Narrative: Patient is a 24-year-old female with history of histoplasmosis who presents with initially a productive cough. Has been nonproductive last 2 weeks. She initially had rhinorrhea and congestion which also resolved. She denies subjective or objective fever. She denies headache. She denies ocular, visual or auditory symptoms. She denies neck pain or neck stiffness. She denies chest discomfort. She denies abdominal pain, nausea, vomit or diarrhea. She has not noted a rash. For several days she had myalgias and arthralgias which resolved. Prior similar symptoms: Yes Recent Illness/Hospitalization: No ROS ROS ED Constitutional Constitutional ED: Denies chills, fever(s), subjective or sweats Eyes Eyes: Denies blurry vision or change in vision ENT ENT ED: Denies ear pain, rhinorrhea or sore throat Cardiovascular Cardiovascular: Denies chest pain, orthopnea, palpitations or paroxysmal nocturnal dyspnea Respiratory/Chest Respiratory/Chest: Reports cough; Denies dyspnea, dyspnea on exertion, orthopnea or paroxysmal nocturnal dyspnea Gastrointestinal Gastrointestinal: Denies abdominal pain, nausea or vomiting Genitourinary Genitourinary ED: Denies dysuria, hematuria or urinary frequency Musculoskeletal Musculoskeletal: Reports other Details: See HPI for details ; Denies arthralgias, back pain, myalgias or neck pain Integumentary Denies rash Neurologic Neurologic: Denies headache(s) or paresthesias Hematologic/Lymphatic Hematologic/Lymphatic: Denies easy bleeding or easy bruising [facility] Medical History Psoriasis Fatty liver PONV (postoperative nausea and vomiting) Gastric reflux Cirrhosis Histoplasmosis Arthritis Low iron Injury of head and neck Esophageal abnormality History of IBS Non-smoker CPAP (continuous positive airway pressure) dependence Sleep apnea Chronic cough History of stress test Ankle pain, left Right wrist sprain Left knee pain Strain of Achilles tendon Contact with or exposure to other viral diseases URI (upper respiratory infection) Sprain of left foot Left ankle sprain Contusion of left knee Anxiety Home Medications ?Medication ?Instructions ?Recorded ?Last Taken ?Type ergocalciferol (vitamin D2) 1,250 1,250 mcg PO QWEEK 06/09/24 09/10/24 History mcg (50,000 unit) capsule ferrous sulfate 325 mg (65 mg 325 mg PO BID 06/09/24 09/10/24 History iron) tablet flax seed oil 1,000 mg PO DAILY 06/09/24 09/10/24 History hydroxyzine HCl 25 mg tablet 25 mg PO Q8H PRN anxiety 06/09/24 Unknown History magnesium hydroxide 400 mg (170 mg 400 mg PO DAILY 06/09/24 09/10/24 History magnesium) chewable tablet ondansetron HCl 4 mg tablet 4 mg PO Q8H PRN nausea and vomiting 06/09/24 Unknown History sumatriptan succinate 25 mg tablet See Rx Instructions PO .COMPLEX 06/09/24 Unknown History buspirone 7.5 mg tablet 10 mg PO TID 01/14/25 Unknown History lansoprazole 30 mg capsule,delayed 30 mg PO QDAY #90 caps 01/27/25 Unknown Rx release naltrexone 50 mg tablet 50 mg PO DAILY 01/30/25 Unknown History quetiapine 300 mg tablet,extended 300 mg PO QHS 01/30/25 Unknown History release 24 hr (Seroquel XR) ondansetron HCl 4 mg tablet 4 mg PO Q4H PRN nausea and 02/04/25 Unknown Rx vomiting #6 tabs sodium sul 1.479 gram-potas ch See Rx Instructions PO .COMPLEX 02/04/25 Unknown Rx 0.188 gram-magnes sul 0.225 gram #28 tabs tablet (Sutab) trazodone 50 mg tablet 50 mg PO QHS 03/26/25 Unknown History cholestyramine (with sugar) 4 gram 2 g PO QHS #378 grams 04/23/25 Unknown Rx oral powder scopolamine base 1 mg over 3 days 1 patch transdermal Q72H PRN 04/23/25 Unknown Rx transdermal patch nausea #10 ea doxycycline monohydrate 100 mg 100 mg PO BID #10 CAPSULES 05/09/25 Unknown Rx capsule Allergy/AdvReac Type Severity Reaction Status Date / Time amoxicillin Allergy Upset Verified 05/09/25 20:51 Stomach erythromycin base Allergy Upset Verified 05/09/25 20:51 Stomach Penicillins (PCN) Allergy Upset Verified 05/09/25 20:51 Stomach azithromycin (From Zithromax) AdvReac Intermediate Hives Verified 05/09/25 20:51 metronidazole (From Flagyl) AdvReac Intermediate Rash Verified 05/09/25 20:51 sulfamethoxazole (From AdvReac Intermediate Rash Verified 05/09/25 20:51 Bactrim) trimethoprim (From Bactrim) AdvReac Intermediate Rash Verified 05/09/25 20:51 Family History Mother Alcohol abuse Breast cancer Hypertension Muscle weakness Substance abuse Father Alcohol abuse Hypertension Grandmother Breast cancer Cancer Sister Hypertension Surgical History History of surgery History of esophagogastroduodenoscopy (EGD) History of colonoscopy History of hysterectomy Hx of breast reduction, elective Hx of cholecystectomy Social History sexually active: No Smoking Status: Never smoker alcohol intake: never substance use type: does not use EXAM Physical Exam Const Vital Signs: 05/09/25 20:49 05/09/25 20:57 Temperature 98.1 F Temperature Source Oral Pulse Rate 109 H Respiratory Rate 18 Respiratory Effort Normal Respiratory Depth Normal Respiratory Pattern Normal Blood Pressure 143/85 H Blood Pressure Mean 104 Pulse Ox 99 Oxygen Delivery Method Room Air Room Air Positive well nourished and well developed Constitutional Narrative: Vital signs are marked for an elevated blood pressure 143/85. She is not hypoxic febrile or tachypneic. BMI is 38.8 General Appearance ED: well developed; Negative for pallor HEENT Reports moist mucous membranes normocephalic and atraumatic Face and Sinus: Negative for sinus tenderness Throat: posterior oropharynx normal Eyes EOMs intact bilaterally General Eye ED: Negative for pale conjunctiva or scleral icterus Neck no lymphadenopathy, supple, no meningeal signs and no JVD Resp normal respiratory effort and clear to auscultation bilaterally Cardio S1 normal heart sound, S2 normal heart sound and no murmurs Rate: regular rate Rhythm: regular rhythm GI non-tender and non-distended Inspection: abdominal distention Palpation: soft Psych mental status grossly normal Skin General Skin Exam: Negative for jaundice or pallor Lesions: no lesions Rashes: no rashes MDM MDM MDM Narrative Medical decision making narrative: Differential diagnosis is bronchitis versus pneumonia. Review of prior records of case patient has history of iron deficiency anemia, histoplasmosis pneumonia, generalized anxiety disorder, pulmonary nodules, metabolic this function associated with fatty liver. History & Record Review Additional record(s) reviewed:: Prior outpatient record and Prior ED visit Radiography Chest X-Ray - ED: Read by ED Physician, Normal (Inspiratory volume is limited. Otherwise negative x-ray. This is independently reviewed and interpreted by me), Heart, Lungs, Mediastinum, Bony Structures and No Acute Disease Diagnostic Testing: Clinical Impression(s) from Imaging Studies Chest X-Ray 05/09/25 21:01 IMPRESSION: Reduced bilateral lung volumes. No focal lung consolidation on radiograph. Reading Location: [facility] Treatment and Re-Evaluation Narrative: Since patient had a cough for [address] on short course of antibiotics, doxycycline to cover both typical and atypical organisms. Furthermore she has had staph infections in the past. Discharge Plan Triage Chief Complaint: Cough ED Provider: Shawn Barrett Dx/Rx/DC Orders Clinical Impression: Bronchitis, Cough, BMI 38.0-38.9,adult, Metabolic dysfunction-associated steatotic liver disease (MASLD), MALORIE (generalized anxiety disorder) Instructions: ED URI, Viral, No Abx (Adult) Prescriptions: New doxycycline monohydrate 100 mg capsule 100 mg PO BID Qty: 10 0RF No Action hydroxyzine HCl 25 mg tablet 25 mg PO Q8H PRN (Reason: anxiety) ferrous sulfate 325 mg (65 mg iron) tablet 325 mg PO BID ergocalciferol (vitamin D2) 1,250 mcg (50,000 unit) capsule 1,250 mcg PO QWEEK Patient Comments: ON FRIDAYS flax seed oil 1,000 mg PO DAILY magnesium hydroxide 400 mg (170 mg magnesium) tablet,chewable 400 mg PO DAILY ondansetron HCl 4 mg tablet 4 mg PO Q8H PRN (Reason: nausea and vomiting) sumatriptan succinate 25 mg tablet See Rx Instructions PO .COMPLEX Rx Instructions: take 1 tab at onset of headache; if no relief may repeat 1 tab after at least 2 hrs; max = 4 tabs/24 hr PO buspirone 7.5 mg tablet 10 mg PO TID quetiapine [Seroquel XR] 300 mg tablet extended release 24 hr 300 mg PO QHS naltrexone 50 mg tablet 50 mg PO DAILY trazodone 50 mg tablet 50 mg PO QHS lansoprazole 30 mg capsule,delayed release(DR/EC) 30 mg PO QDAY Qty: 90 1RF Rx Instructions: take once daily in the morning on an empty stomach Sutab 1.479-0.188- 0.225 gram tablet See Rx Instructions PO .COMPLEX Qty: 28 0RF Rx Instructions: Take orally take as directed for split dose bowel prep. Do not follow instructions on box. ondansetron HCl 4 mg tablet 4 mg PO Q4H PRN (Reason: nausea and vomiting) Qty: 6 0RF Rx Instructions: Take 8mg two hours prior to starting bowel prep, then one tablet every 4 hours as needed for nausea and vomiting scopolamine base 1 mg over 3 days patch 3 day 1 patch transdermal Q72H PRN (Reason: nausea) Qty: 10 0RF cholestyramine (with sugar) 4 gram powder 2 g PO QHS Qty: 378 0RF Primary Care Provider: Evelyne Cruz NP Referrals: Evelyne Cruz NP, [employer] [Primary Care Provider, Family Practice] - 1 Week if not improving Print Language: Frisian Disposition Disposition: Home, Self Care
--- NOTE | 2025-05-09 21:01 | RAD_ITS ---
PROCEDURE: CHEST PA AND LATERAL 05/09/2025 REASON FOR EXAM: COUGH TECHNIQUE: Procedure Code: RADCXR Modality: DX Procedure: CHEST PA AND LATERAL COMPARISON: Chest radiographs 07/16/2024. FINDINGS: Reduced bilateral lung volumes. No focal lung consolidation, pneumothorax, or pleural effusion. The cardiomediastinal silhouette is within normal limits. The jhony are unremarkable. The osseous structures are unremarkable. RAD/Chest PA and Lateral IMPRESSION: Reduced bilateral lung volumes. No focal lung consolidation on radiograph. Reading Location: [id number]
--- OUTSIDE RECORDS SUMMARY | 2025-05-09 21:26 | XMS RPT_ITS | CCD ---
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 Levon Ennis Attending Provider SHAUNA YAO PA-C Primary Care Physician ASIM Tavarez Attending Provider ASIM Andrea Attending Provider MD Dario Alejandre Attending Provider Care Physician, No Primary Primary Care Provider Unavailable Care Physician, No Primary Referring Provider Un available Unavailable Primary Care Provider Unavailabl e VERGHESE, JACK Referring Unavailable VERGHESE, JACK Referring Unavailable Unavailable Primary Care Provider Unavailmarj Priest NP, BUTTER FAT TESTER-C Jack Primary Care Provider Cem ROSADO, ALONZO-C Jack Referring Provider ASIM Tavarez Attending Provider Cem ROSADO, BUTTER FAT TESTER-C Jack Primary Care Provider Cem ROSADO, ALONZO-C Jack Referring Provider ASIM Tavarez Attending Provider [phone] López Hernandez Unavailable CEM NET TECHNICAL ARCHITECT-BIOMATHEMATICIAN, JACK Subramanian [facility] Jack Priest CNP Primary Care Provider LUL CARRANZA Referring Unavailable MARILYN PIÑA Referring Unavailable JACK PRIEST Primary Care Unavailable VACCARELLI PA-C, SHAUNA Attending Unavailab le VACCARELLI PA-C, SHAUNA Primary Care Unavailab le CEM NET TECHNICAL ARCHITECT-BIOMATHEMATICIAN, JACK Subramanian Attending Un available CEM NET TECHNICAL ARCHITECT-BIOMATHEMATICIAN, JACK Subramanian Primary Care Un available CEM NET TECHNICAL ARCHITECT-BIOMATHEMATICIAN, JACK Subramanian Attending Un available CEM NET TECHNICAL ARCHITECT-BIOMATHEMATICIAN, JACK Subramanian Primary Care Un available CEM NET TECHNICAL ARCHITECT-BIOMATHEMATICIAN, JACK Subramanian Attending Un available CEM NET TECHNICAL ARCHITECT-BIOMATHEMATICIAN, JACK Subramanian Primary Care Un available CEM NET TECHNICAL ARCHITECT-BIOMATHEMATICIAN, JACK Subramanian Attending Un available CEM NET TECHNICAL ARCHITECT-BIOMATHEMATICIAN, JACK Subramanian Primary Care Un available ROCK NET TECHNICAL ARCHITECT-BIOMATHEMATICIAN, PAOLA Attending Unavailabl e VACCARELLI PA-C, SHAUNA Primary Care Unavailab le CEM NET TECHNICAL ARCHITECT-BIOMATHEMATICIAN, JACK Subramanian Attending Un available VACCARELLI PA-C, SHAUNA Primary Care Unavailab le VACCARELLI PA-C, SHAUNA Attending Unavailab le VACCARELLI PA-C, SHAUNA Primary Care Unavailab le CEM NET TECHNICAL ARCHITECT-BIOMATHEMATICIAN, JACK Subramanian Attending Un available CEM NET TECHNICAL ARCHITECT-BIOMATHEMATICIAN, JCAK A Primary Care Un available CEM NET TECHNICAL ARCHITECT-BIOMATHEMATICIAN, JACK Subramanian Attending Un available CEM NET TECHNICAL ARCHITECT-BIOMATHEMATICIAN, JACK A Primary Care Un available CEM NET TECHNICAL ARCHITECT-BIOMATHEMATICIAN, JACK Subramanian Attending Un available CEM NET TECHNICAL ARCHITECT-BIOMATHEMATICIAN, JACK A Primary Care Un available CEM NET TECHNICAL ARCHITECT-BIOMATHEMATICIAN, JACK Subramanian Attending Un available VACCARELLI PA-C, SHAUNA Primary Care Unavailab le VACCARELLI PA-C, SHAUNA Attending Unavailab le VACCARELLI PA-C, SHAUNA Primary Care Unavailab le VACCARELLI PA-C, SHAUNA Attending Unavailab le VACCARELLI PA-C, SHAUNA Primary Care Unavailab le TAMARA MAXWELL Attending Unavailable JACK PRIEST A Primary Care Unavailable Ariel White MD Unavailable JACK PRIEST A Referring Unavailable LISA ALMANZAR Attending Unavailable JACK PRIEST A Primary Care Unavailable DONTA LAYNE Attending Unavailable DONTA LAYNE Referring Unavailable ARELIS PRIESTTH A Primary Care Unavailable MATHEUS LLAMAS Attending Unavailable MATHEUS LLAMAS Referring Unavailable CEM JACK A Primary Care Unavailable ANALISA PRIESTBETH A Primary Care Unavailable JACK LIZARRAGA Referring Unavailable VELMA TORRES Attending Unavailable Cem NET TECHNICAL ARCHITECT-BIOMATHEMATICIAN, Jack A Primary Care Provi brianda Velma Torres CGC Unavailable Unavailab Lisa Whitehead CGC Unavailable Unavailable DONNA, MIGUELLETTE ALDAIR Referring Unavailabl e ANALISA PRIESTBETH A Primary Care Unavailable Jack Priest CNP A Unavailable [phone] JAQUELINE, MARY Referring Unavailable CEM JACK A Primary Care Unavailable MUROBBIE, MARY Referring Unavailable ANALISA PRIESTBETH A Primary Care Unavailable WALTERS, LULETTE ALDAIR Attending Unavailabl e CEM JCAK A Primary Care Unavailable Analisa Priest CNPbeth Ambernoman Primary Care Prov ider Jack Priest CNP Ambernoman Unavailable ANALISA PRIESTBETH AMBERNOMAN Primary Care Unava ilable LUL CARRANZA Referring Unavailable CEM, JACK AMBERLE Primary Care Unava ilable PIERCE PROCTOR Referring Unavailable CEM, JACK AMBERNOMAN Primary Care Unava ilable DINORAH JOE Referring Unavailable CEM, JACK AMBERNOMAN Primary Care Unava ilable STACY SEGURA Attending Unavailable CEM, JACK AMBERNOMAN Primary Care Unava ilable CHE HARDY Attending Unavailable CHE HARDY Admitting Unavailable SKYE GIRALDO Referring Unavailable [facility] Unava ilable MARILYN PIÑA Attending Unavailable [facility] Unava ilable [facility] Unava ilable YOUNG MARSH Attending Unavailable [facility] Unava ilable SKYE GIRALDO Referring Unavailable [facility] Unava ilable LENORA DOW Attending Unavailable [facility] Unava ilable CIUNI, LUL Referring Unavailable STACY SEGURA Attending Unavailable STACY SEGURA Admitting Unavailable [facility] Unava ilable WALTERS, LULETTE ALDAIR [facility] PIERCE PROCTOR Referring Unavailable [facility] Unava ilable JOE, DINORAH Referring Unavailable [facility] Unava ilable JOE, DINORAH Referring Unavailable [facility] Unava ilable WALTERS, LULETTE ALDAIR [facility] Unava ilable JOHNNIE, KEVIN Referring Unavailable KEVIN OLSON Attending Unavailable [facility] Unava ilable [facility] Unava ilable CIUNI, LUL Referring Unavailable AURY TRISTAN Attending Unavailable [facility] Unava ilable SELF Referring Unavailable STACY SEGURA Attending Unavailable [facility] Unava ilable SELF Referring Unavailable [facility] Unava ilable YOUNG MARSH A Referring Unavailable YOUNG MARSH Attending Unavailable [facility] Unava ilable MARY PARSONS Attending Unavailable SELF Referring Unavailable [facility] Unava ilable [facility] Unava ilable JOE, DINORAH Referring Unavailable SELF Referring Unavailable MALACHI KHALIL Attending Unav ailable CEM, JACK AMBERLE Primary Care Unava ilable CEM, JACK AMBERLE Primary Care Unava ilable SKYE GIRALDO Referring Unavailable CEM, JACK AMBERLE Primary Care Unava ilable CEM, JACK AMBERLE Primary Care Unava ilable STACY SEGURA Attending Unavailable CEM, JACK AMBERLE Primary Care Unava ilable STACY SEGURA Attending Unavailable CEM, JACK AMBERLE Primary Care Unava ilable SELF Referring Unavailable JOHNNIE, KEVIN Referring Unavailable CEM, JACK AMBERLE Primary Care Unava ilable JOHNNIE, KEVIN Attending Unavailable CEM, JACK AMBERLE Primary Care Unava ilable SKYE BELLO Referring Unavai lable CEM, JACK AMBERLE Primary Care Unava ilable CEM, JACK AMBERLE Primary Care Unava ilable LUL CARRANZA Attending Unavailable Jonelle Lopez MD Unavailable López Hernandez MD Unavailable [phone] Cem BUTTER FAT TESTER, Jack A Unavailable [phone] Cem NET TECHNICAL ARCHITECT - BIOMATHEMATICIAN, Jack Primary Care Provi brianda JACQUELIN ANDERSON Attending Unavailable ARIEL WHITE Referring Unavailable CEM, JACK Primary Care Unavailable CEM NET TECHNICAL ARCHITECT-BIOMATHEMATICIAN, JACK A Primary Care Un available CEM NET TECHNICAL ARCHITECT-BIOMATHEMATICIAN, JACK A Attending Un available CEM NET TECHNICAL ARCHITECT-BIOMATHEMATICIAN, JACK A Primary Care Un available CEM NET TECHNICAL ARCHITECT-BIOMATHEMATICIAN, JACK A Attending Un available CEM NET TECHNICAL ARCHITECT-BIOMATHEMATICIAN, JACK A Primary Care Un available ARIEL WHITE MD Attending Unavailable CEM NET TECHNICAL ARCHITECT-BIOMATHEMATICIAN, JACK A Primary Care Un available ARIEL WHITE MD Attending Unavailable CEM NET TECHNICAL ARCHITECT-BIOMATHEMATICIAN, JACK A Primary Care Un available CEM NET TECHNICAL ARCHITECT-BIOMATHEMATICIAN, JACK A Attending Un available CEM NET TECHNICAL ARCHITECT-BIOMATHEMATICIAN, JACK A Primary Care Un available CEM NET TECHNICAL ARCHITECT-BIOMATHEMATICIAN, JACK Subramanian Attending Un available CEM NET TECHNICAL ARCHITECT-BIOMATHEMATICIAN, JACK A Attending Un available CEM NET TECHNICAL ARCHITECT-BIOMATHEMATICIAN, JACK A Primary Care Un available CEM NET TECHNICAL ARCHITECT-BIOMATHEMATICIAN, JACK A Attending Un available CEM NET TECHNICAL ARCHITECT-BIOMATHEMATICIAN, JACK A Primary Care Un available CEM NET TECHNICAL ARCHITECT-BIOMATHEMATICIAN, JACK A Attending Un available CEM NET TECHNICAL ARCHITECT-BIOMATHEMATICIAN, JACK A Primary Care Un available CEM NET TECHNICAL ARCHITECT-BIOMATHEMATICIAN, JACK A Attending Un available CEM NET TECHNICAL ARCHITECT-BIOMATHEMATICIAN, JACK A Primary Care Un available CEM NET TECHNICAL ARCHITECT-BIOMATHEMATICIAN, JACK A Attending Un available CEM NET TECHNICAL ARCHITECT-BIOMATHEMATICIAN, JACK A Primary Care Un available CEM NET TECHNICAL ARCHITECT-BIOMATHEMATICIAN, JACK A Attending Un available CEM NET TECHNICAL ARCHITECT-BIOMATHEMATICIAN, JACK A Primary Care Un available CEM NET TECHNICAL ARCHITECT-BIOMATHEMATICIAN, JACK A Primary Care Un available CEM NET TECHNICAL ARCHITECT-BIOMATHEMATICIAN, JACK A Attending Un available CEM NET TECHNICAL ARCHITECT-BIOMATHEMATICIAN, JACK A Primary Care Un available CEM NET TECHNICAL ARCHITECT-BIOMATHEMATICIAN, JACK A Attending Un available CEM NET TECHNICAL ARCHITECT-BIOMATHEMATICIAN, JACK A Primary Care Un available CEM NET TECHNICAL ARCHITECT-BIOMATHEMATICIAN, JACK A Attending Un available CEM NET TECHNICAL ARCHITECT-BIOMATHEMATICIAN, JACK A Primary Care Un available CINDY GARCIA, ARIEL Attending Unavailable CINDY GARCIA, ARIEL Consulting Unavailable CEM NET TECHNICAL ARCHITECT-BIOMATHEMATICIAN, JACK A Primary Care Un available ARIEL WHITE MD Attending Unavailable CEM NET TECHNICAL ARCHITECT-BIOMATHEMATICIAN, JACK A Primary Care Un available CEM NET TECHNICAL ARCHITECT-BIOMATHEMATICIAN, JACK A Attending Un available CEM NET TECHNICAL ARCHITECT-BIOMATHEMATICIAN, JACK A Primary Care Un available CEM NET TECHNICAL ARCHITECT-BIOMATHEMATICIAN, JACK A Attending Un available CEM NET TECHNICAL ARCHITECT-BIOMATHEMATICIAN, JACK A Primary Care Un available CEM NET TECHNICAL ARCHITECT-BIOMATHEMATICIAN, JACK A Attending Un available CEM NET TECHNICAL ARCHITECT-BIOMATHEMATICIAN, JACK A Primary Care Un available CEM NET TECHNICAL ARCHITECT-BIOMATHEMATICIAN, JACK A Attending Un available KENNEN NET TECHNICAL ARCHITECT-BIOMATHEMATICIAN, YASMINE Orona Attending Unavai lable CEM NET TECHNICAL ARCHITECT-BIOMATHEMATICIAN, JACK A Primary Care Un available CEM NET TECHNICAL ARCHITECT-BIOMATHEMATICIAN, JACK A Attending Un available CEM NET TECHNICAL ARCHITECT-BIOMATHEMATICIAN, JACK A Primary Care Un available CEM NET TECHNICAL ARCHITECT-BIOMATHEMATICIAN, JACK A Primary Care Un available ARIEL WHITE MD Attending Unavailable CEM NET TECHNICAL ARCHITECT-BIOMATHEMATICIAN, JACK A Primary Care Un available GORAN BOWENS MD Attending Unavail able CEM NET TECHNICAL ARCHITECT-BIOMATHEMATICIAN, JACK A Primary Care Un available FROMFREDDY PEREZ DO Attending Unavailable CEM NET TECHNICAL ARCHITECT-BIOMATHEMATICIAN, JACK A Primary Care Un available DARIAN NAVARRO MD Attending Unavailable MAMADOU GARCIA FACP, JOSE Allen Attending Unavail able MAMADOU GARCIA FACP, JOSE Allen Consulting Unavail able [facility] August Admitting Unavailab le CEM NET TECHNICAL ARCHITECT-BIOMATHEMATICIAN, JACK A Primary Care Un available LINDY GREENFIELD DO Consulting Unavailable CEM NET TECHNICAL ARCHITECT-BIOMATHEMATICIAN, JACK A Primary Care Un available CEM NET TECHNICAL ARCHITECT-BIOMATHEMATICIAN, JACK A Attending Un available Maverick Erickson Attending Unavailable Cem BUTTER FAT TESTER, [place] Referring Unavailabl e Cem BUTTER FAT TESTER, [facility] Unavailabl e Maverick Erickson Attending Unavailable Cem BUTTER FAT TESTER, [place] Referring Unavailabl e Cem BUTTER FAT TESTER, [facility] Unavailabl e Martha Chavezfer Attending Unavailable Cem BUTTER FAT TESTER, [place] Referring Unavailabl e Cem BUTTER FAT TESTER, [facility] Unavailabl e Cem BUTTER FAT TESTER, [facility] Unavailabl e Cem BUTTER FAT TESTER, Jack Attending Unavailabl e Cem BUTTER FAT TESTER, [place] Referring Unavailabl e Scott Marquita Referring Unavailable ScottMarthaMarquita Attending Unavailable Cem BUTTER FAT TESTER, [facility] Unavailabl e Scott, Marquita Referring Unavailable Scott Marquita Attending Unavailable Cem BUTTER FAT TESTER, [facility] Unavailabl e Maverick Erickson Attending Unavailable Cem BUTTER FAT TESTER, [facility] Unavailabl e Cem BUTTER FAT TESTER, [place] Referring Unavailabl e MoomaAndrea allen Attending Unavailable [place] Andrea Referring Unavailable Cem BUTTER FAT TESTER, [facility] Care Unavailabl e Smith Hansen Attending Unavailable Smith Hansen Referring Unavailable Cem BUTTER FAT TESTER, [facility] Unavailabl e Scott Marquita Referring Unavailable ScottMarthaMarquita Attending Unavailable Cem BUTTER FAT TESTER, [facility] Unavailabl e Dre, Maverick Referring Unavailable Marquita Chavez Attending Unavailable Cem BUTTER FAT TESTER, [facility] Unavailabl e Sharan Mckeon Attending Unavailable Cem BUTTER FAT TESTER, [facility] Unavailabl e Fatoumata Franklin Attending Unavailable Fatoumata Franklin Referring Unavailable Cem BUTTER FAT TESTER, [facility] Unavailabl e Marquita Chavez Attending Unavailable Cem BUTTER FAT TESTER, [place] Referring Unavailabl e Cem BUTTER FAT TESTER, [facility] Unavailabl e Lenora Lopez Attending Unavailable Chris Lopezge Referring Unavailable Cem BUTTER FAT TESTER, [facility] Unavailabl e Marquita Chavez Attending Unavailable Cem BUTTER FAT TESTER, [facility] Unavailabl e Cem BUTTER FAT TESTER, [place] Referring Unavailabl e Aury Tristan Attending Unavailable Aury Tristan Referring Unavailable Cem BUTTER FAT TESTER, [facility] Unavailabl e Harvinder Rossi Attending Unavailable Cem BUTTER FAT TESTER, [facility] Unavailabl e Marquita Chavez Referring Unavailable Marquita Chavez Attending Unavailable Cem BUTTER FAT TESTER, [facility] Unavailabl e Marquita Chavez Attending Unavailable Marquita Chavez Referring Unavailable Cem BUTTER FAT TESTER, [facility] Unavailabl Kole nOeal Attending Unavailable Kole Salas Referring Unavailable Cem BUTTER FAT TESTER, [facility] Unavailabl e Andrea Campos Attending Unavailable Cem BUTTER FAT TESTER, [facility] Unavailabl e Cem BUTTER FAT TESTER, [place] Referring Unavailabl e Marquita Chavez Attending Unavailable Cem BUTTER FAT TESTER, [facility] Unavailabl e Cem BUTTER FAT TESTER, [place] Referring Unavailabl e Marquita Chavez Attending Unavailable Cem BUTTER FAT TESTER, [place] Referring Unavailabl e Cem BUTTER FAT TESTER, [facility] Unavailabl e Lopez, Lenora Referring Unavailable Lopez Lenora Consulting Unavailable Lenora Lopez Attending Unavailable Cem BUTTER FAT TESTER, [facility] Unavailabl e Friend, Maverick Consulting Unavailable FriendMaverick Attending Unavailable Cem BUTTER FAT TESTER, [facility] Unavailabl e Cem BUTTER FAT TESTER, [place] Referring Unavailabl e Lenora Lopez Attending Unavailable Chris Lopezge Referring Unavailable Lopez, Lenora Consulting Unavailable Cem BUTTER FAT TESTER, [facility] Unavailabl e Lenora Lopez Attending Unavailable Lenora Lopez Referring Unavailable Cem BUTTER FAT TESTER, [facility] Unavailabl e Babatunde BUTTER FAT TESTER, [place] Attending Unavailable Babatunde BUTTER FAT TESTER, Morena Referring Unavailable Cem BUTTER FAT TESTER, [facility] Unavailabl e Fatoumata Franklin Attending Unavailable Fatoumata Franklin Referring Unavailable Cem BUTTER FAT TESTER, [facility] Unavailabl e Marquita Chavez Referring Unavailable Marquita Chavez Attending Unavailable Cem BUTTER FAT TESTER, [facility] Unavailabl e Eugenio Muniz Attending Unavailable Cem BUTTER FAT TESTER, [facility] Unavailabl e IKE GARCIAS Attending Unavailable IKE GARCIAS Referring Unavailable Care Physician, No Primary Primary Care Unava ilable Allergies Allergy Classification Reported Allergen(s) Allergy Type Date of Onset Reaction(s) Facility Macrolides (antibiotic) (2 sources) Azithromycin Drug Allergy 06-28-19 22 Hives, Itching [facility] Penicillins (antibiotic) (2 sources) Amoxicillin Drug Allergy 05-30-19 21 Hives, Unknown [facility] Serotonin Reuptake Inhibitors (SSRIs) (1 source) traZODone Drug Allergy 11-15-19 23 Other: See Comments [facility] (20 sources) Amoxicillin; Translations: [AMOXICILLIN] Drug Allergy 03-22-20 22 Hives, Penicillin -class of antibiotic- (substance), Penicillin [facility] Work Phone: (20 sources) Azithromycin; Translations: [azithromycin] Drug Allergy 03-22-20 22 Hives, Weal (disorder), Itching [facility] Work Phone: (20 sources) Clarithromycin; Translations: [CLARITHROMYCIN] Drug Allergy 06-28-19 22 Hives [facility] Work Phone: (20 sources) Penicillins; Translations: [PENICILLINS] Drug Intolerance 05-30-19 21 Hives, Unknown [facility] Work Phone: (11 sources) Erythromycin Drug Allergy 05-16-20 22 Upset Stomach [facility] (11 sources) Penicillins Allergy to substance 05-16-20 22 Upset Stomach [facility] (20 sources) traZODone; Translations: [trazodone] Drug Allergy 11-15-19 23 Suicidal thoughts (finding), Other: See Comments [facility] (20 sources) Penicillins; Translations: [penicillins] Drug allergy Weal (disorder) [facility] (20 sources) metroNIDAZOLE; Translations: [metronidazole] Drug Allergy 07-02-19 Eruption of skin (disorder), Rash [facility] (20 sources) Sulfamethoxazole / Trimethoprim; Translations: [sulfamethoxazole-t rimethoprim] Drug Allergy 07-02-19 25 Eruption of skin (disorder), Rash [facility] (3 sources) Sulfamethoxazole / Trimethoprim; Translations: [SULFAMETHOXAZOLE-T RIMETHOPRIM] Drug Allergy 07-02-19 [facility] Other [facility] (11 sources) Penicillins Drug Allergy 05-30-19 21 Hives, Unknown [facility] (8 sources) Penicillin; Translations: [penicillins] Drug Allergy 05-30-19 21 Weal (disorder), Hives [facility] (1 source) Amoxicillin Drug Allergy 03-06-20 [facility] (1 source) corn extract Drug Allergy 03-06-20 [facility] (1 source) egg (chicken) allergenic extract Drug Allergy 03-06-20 [facility] (1 source) Penicillin V Drug Allergy 03-06-20 [facility] (3 sources) Wheat preparation Drug Allergy 03-06-20 [facility] (1 source) BACTRIUM Allergy to substance (disorder) 03-06-20 [facility] (1 source) FLOGYL Drug allergy (disorder) 03-06-20 [facility] (2 sources) Egg Allergy to substance 03-06-20 [facility] (2 sources) Sulfamethoxazole Allergy to substance 01-31-20 [facility] (2 sources) Trimethoprim Drug Allergy 01-31-20 [facility] (1 source) Amoxicillin Drug Allergy 03-30-20 [facility] (1 source) Azithromycin Drug Allergy 03-30-20 [facility] (1 source) Erythromycin Drug Allergy 03-30-20 [facility] (1 source) metroNIDAZOLE Drug Allergy 03-30-20 [facility] (1 source) Penicillins Drug allergy (disorder) 03-30-20 [facility] (1 source) Sulfamethoxazole Drug Allergy 03-30-20 [facility] (1 source) traZODone Drug Allergy 01-31-20 [facility] (1 source) Trimethoprim Drug Allergy 03-30-20 [facility] Medications Current Medications Medication Drug Class(es) [...] every six hours as needed for pain Dawson 325- 5 mg oral tablet Dose = [...] day(s), # 20 tab(s), 0 Refill(s), Pharmacy: [facility], Postoperative pain, 159, cm, 04/25/24 6:31:00 EST, Height, 101, kg, 04/25/24 6:31:00 EST, Dosing Weight Start Date: 04/25/24 Stop Date: 05/02/24 Status: Ordered albuterol 0.83 mg/ml inhalation solution (20 sources) beta2-Adrenerg ic Agonist Start: 02-28-2023 End: 04-29-2023 take 1 dose by inhalation every six hours as needed albuterol 2.5 mg/3 mL (0.083%) inhalation solution Dose : 2.5 mg = 3 mL, Inhalation, q6h, PRN as needed for wheezing, # 100 EA, 1 Refill(s), Pharmacy: [id number], Asthma Pneumonia, 159.5, cm, 10/24/22 15:50:00 EDT, [...] wheezing, # 18 gram(s), 3 Refill(s), Pharmacy: [id number], Asthma, 159.5, cm, 10/24/22 15:50:00 [...] 0 Refill(s), 03/05/24 11:31:00 AM EDT, Pharmacy: [facility], Cough, 158, cm, 02/27/24 10:40:00 EDT, [...] day as needed. Blood Glucose Test Machine (9 sources) Start: 09-10-2024 Blood Glucose Test Machine See Instructions, Use glucometer daily as directed for blood sugar checks. Dispense insurance preferred device, # 1 EA, 0 Refill(s), Pharmacy: [facility], Hyperglycemia, 157.5, cm, 09/10/24 16:27:00 EDT, Height, 99.2, kg, 09/10/24 16:27:00 EDT, Dosing Weight Start Date: 09/10/24 Status: Ordered Medication Dispense Status: Completed Quantity: 1.0 Unit: EA Total Allowed Fills: 1 Fills Dispensed: 0 Indications: Hyperglycemia, unspecified; Start: 09-10-2024 Blood Glucose Test Machine See Instructions, Use glucometer daily as directed for blood sugar checks. Dispense insurance preferred device, # 1 EA, 0 Refill(s), Pharmacy: [facility], Hyperglycemia, 157.5, cm, 09/10/24 16:27:00 EDT, Height, 99.2, kg, 09/10/24 16:27:00 EDT, Dosing Weight Start Date: 09/10/24 Status: Ordered Quantity: 1.0 Unit: EA Repeat number: 1 Indications: Hyperglycemia, unspecified; busPIRone hydrochloride 7.5 mg oral tablet (3 sources) busPIRone (Buspa r) 7.5 MG tablet buspirone 7.5 mg tablet active Jessica Chadima [facility] Active CBD Oil (5 sources) Start: CBD Oil Active TOPICAL January 18, 2023 12:00am cefdinir 300 mg oral capsule (1 source) Cephalosporin Antibacterial Start: End: cefdinir 300 mg oral capsule Dose : 300 mg = 1 cap(s), Oral, q12h, X 7 day(s), # 14 cap(s), 0 Refill(s), 05/16/24 5:05:00 PM EST, Pharmacy: [facility], Vaginal discharge, 159, cm, 05/09/24 15:56:00 [...] qDay, # 30 tab(s), 2 Refill(s), Pharmacy: [facility], Allergic rhinitis, 158, cm, 03/12/24 13:02:00 EDT, Height, kg, 03/12/24 13:02:00 EDT, Dosing Weight Start Date: 03/12/24 Stop Date: 06/10/24 Status: Ordered cholecalciferol 1.25 mg oral capsule (20 sources) Vitamin D Start: take 1 capsule by mouth every week cholecalciferol (Vitamin D-3) 1.25 MG (13838 UT) capsule Take 50,000 Units by mouth once a week. 10/01/2023 Active clindamycin 150 mg oral capsule [...] tw o times a day. CPAP Supplies (9 sources) Start: 06-06-2024 CPAP Supplies See Instructions, Full setup (mask/tubing/water res) CPAP pressure of 16 cm of water with ResMed P10 size medium and heated humidity, # 1 EA, 0 Refill(s), 105.1 Start Date: 06/06/24 Status: Ordered Medication Dispense Status: Completed Quantity: 1.0 Unit: EA Total Allowed Fills: 1 Fills Dispensed: 0 Start: 06-06-2024 CPAP Supplies See Instructions, Full setup (mask/tubing/water res) CPAP pressure of 16 cm of water with ResMed P10 size medium and heated humidity, # 1 EA, 0 Refill(s), 105.1 Start Date: 06/06/24 Status: Ordered Quantity: 1.0 Unit: EA Repeat number: 1 docusate sodium 50 mg / sennosides, prison 8.6 mg oral tablet (1 source) Start: 05-26-2024 End: 06-25-2024 take 1 tablet by mouth twice daily Senokot S 50 mg-8.6 mg oral tablet Dose = 1 tab(s), Oral, BID, X 30 day(s), # 60 tab(s), 0 Refill(s), Pharmacy: [facility], 159, cm, 05/19/24 15:53:00 EST, Height, kg, 05/19/24 15:53:00 EST, Dosing Weight Start Date: 05/26/24 Stop Date: 06/25/24 Status: Ordered Quantity: 60.0 Unit: tab(s) Repeat number: 1 doxycycline hyclate 100 mg oral capsule (10 sources) Tetracycline -class Drug Start: 05-09-2024 End: 05-19-2024 doxycycline hyclate 100 mg oral capsule Dose : 100 mg = 1 cap(s), Oral, BID, X 10 day(s), # 20 cap(s), 0 Refill(s), 05/19/24 4:58:00 PM EST, Pharmacy: [id number], Vaginal discharge, 159, cm, 05/09/24 [...] 0 Refill(s), 03/10/24 9:10:00 AM EDT, Pharmacy: [facility], Sinusitis Bilateral otitis media, 158, cm, [...] 100 MG PO TWICE A DAY 14 February 24, 2023 12:00am March 18, 2023 4:33pm ergocalciferol 1.25 mg oral capsule (2 sources) Provitamin D2 Compound ergocalciferol (Vitamin D2) 1.25 MG (17924 UT) capsule Vitamin D2 1,250 mcg (50,000 unit) capsule active Jessica Saldivar [facility] Active etonogestrel 68 mg drug implant (15 sources) Progestin Start: 024 inject 1 dose by subcutaneous injection once [...] mg (NEXPLANON) famotidine 20 mg oral tablet (14 sources) Histamine-2 Receptor Antagonist Start: 05-09-2024 End: 03-29-2025 famotidine 20 mg oral tablet Dose : 20 mg = 1 tab(s), Oral, BID, PRN stomach upset, # 60 tab(s), 2 Refill(s), Pharmacy: [facility], Chronic nausea, 157.5, cm, 12/29/24 14:38:00 EDT, Height, kg, 12/29/24 14:38:00 EDT, Dosing Weight Start Date: 12/29/24 Stop Date: 03/29/25 Status: Ordered Medication Dispense Status: Completed Quantity: 60.0 Unit: tab(s) Total Allowed Fills: 3 Fills Dispensed: 0 Indications: Nausea; ferrous sulfate 325 mg oral tablet (20 sources) Start: 04-16-2024 End: 07-19-2025 ferrous sulfate 325 mg (65 mg elemental iron) oral tablet Dose : 325 mg = 1 tab(s), Oral, BID, increased dose to BID, # 180 tab(s), 1 Refill(s), Pharmacy: [facility], Iron deficiency, 157.5, cm, 12/29/24 14:38:00 EDT, Height, kg, 12/29/24 14:38:00 EDT, Dosing Weight Start Date: 01/20/25 Stop Date: 07/19/25 Status: Ordered Medication Dispense Status: Completed Quantity: 180.0 Unit: tab(s) Total Allowed Fills: 2 Fills Dispensed: 0 Indications: Iron deficiency; FeroSul 325 mg ( 65 mg iron) tablet active Jessica Saldivar [facility] FLAX SEED OIL (FLAXSEED (LINSEED)) 1000 MG CAPS (1 source) flaxseed oil 1,0 00 mg capsule active Jessica Saldivar [facility] flax seed oil 1000 mg oral capsule (20 sources) Start: 12-31-2024 End: 12-26-2025 flax seed oil 1000 mg oral capsule Dose : 1,000 mg = 1 cap(s), Oral, BID, # 180 cap(s), 3 Refill(s), HLD (hyperlipidemia) Start Date: 12/31/24 Stop Date: 12/26/25 Status: Ordered Medication Dispense Status: Completed Quantity: 180.0 Unit: cap(s) Total Allowed Fills: 4 Fills Dispensed: 0 Indications: Hyperlipidemia, unspecified; Start: 08-18-2024 End: 02-14-2025 flax seed oil 1000 mg oral c apsule Dose : 1,000 mg = 1 cap(s), Oral, qDay, Decreased dose to once daily, # 90 cap(s), 1 Refill(s), HLD (hyperlipidemia) Start Date: 08/18/24 Stop Date: 02/14/25 Status: Ordered Medication Dispense Status: Completed Quantity: 90.0 Unit: cap(s) Total Allowed Fills: 2 Fills Dispensed: 0 Indications: Hyperlipidemia, unspecified; Start: 08-18-2024 End: 02-14-2025 flax seed oil 1000 mg oral c [...] oil (20 sources) take 1 capsule by mo uth twice daily Flaxseed Oil oil Take 1 capsule by mouth two times a day. Active Flaxseed Oil oil Active hydrOXYzine hydrochloride 25 mg oral tablet (20 sources) Antihistamine Start: 04-13-2023 take 0.5 tablet by mouth four times daily as needed for anxiety [...] January 18, 2023 8:49am Start: 09-22-2022 End: 03-29-2025 hydrOXYzine hydrochloride 25 mg oral tablet Dose : 25 mg = 1 tab(s), Oral, QID, PRN for anxiety, X 30 day(s), # 60 tab(s), 2 Refill(s), 03/29/25 3:19:00 PM EST, Pharmacy: [facility], 157.5, cm, 12/29/24 14:38:00 EDT, Height, kg, 12/29/24 14:38:00 EDT, Dosing Weight Start Date: 12/29/24 Stop Date: 03/29/25 Status: Ordered Medication Dispense Status: Completed Quantity: 60.0 Unit: tab(s) Total Allowed Fills: 3 Fills Dispensed: 0 Start: 09-22-2022 End: 12-13-2022 take 1-2 capsules by mouth three times daily as needed for anxiety Hydroxyzine Pamoate Discontinued 50 MG PO 3 TIMES DAILY NEEDED September 22, 2022 12:00am December 13, 2022 6:13am 1-2 capsule up to 3 times daily as needed for anxiety. Comment on above: TAKE 1/2 TABLET BY M OUT 4 TIMES A DAY NEEDED FOR ANXIETY, IF TOLERATED WITHOUT EXCESSIVE TIREDNESS CAN TAKE FULL TAB ibuprofen 800 mg oral tablet (9 sources) Nonsteroidal Anti-inflammatory Drug Start: 04-25-2024 End: 05-09-2024 ibuprofen 800 mg oral tablet Dose : 800 mg = 1 tab(s), Oral, q8h, X 14 day(s), # 42 tab(s), 0 Refill(s), 05/09/24 7:27:00 AM EST, Pharmacy: [facility], 159, cm, 04/25/24 6:31:00 EST, Height, kg, [...] shampoo (20 sources) Azole Antifungal Start: 04-11-2024 apply 1 dose topically every week ketoconazole 2% topical shampoo Apply 1 leola, Topical, qWeek, # 120 mL, 0 Refill(s), Shampoo, 104.1 Start Date: 04/11/24 Status: Ordered Medication Dispense Status: Completed Quantity: 120.0 Unit: mL Total Allowed Fills: 1 Fills Dispensed: 0 Start: 01-04-2024 ketoconazole ( NIZORAL) 2 % shampoo Apply 1 Application to affected area two times a week. 01/04/2024 Active lansoprazole 30 mg delayed release oral capsule (4 sources) Proton Pump Inhibitor Start: 03-20-2025 lansoprazole 30 mg oral delayed release capsule Dose : 30 mg = 1 cap(s), Oral, qDay, 0 Refill(s) Start Date: 03/20/25 Status: Ordered Medication Dispense Status: Completed Total Allowed Fills: 1 Fills Dispensed: 0 lansoprazole (Pr evacid) [address] capsule lansoprazole 30 mg capsule,delayed release active Jessica [facility] Active lansoprazole 30 mg capsule,delayed release active Jessica [facility] linseed oil 1000 mg oral capsule (2 sources) Flaxseed, Linsee d, (Flax Seed Oil) 1000 MG capsule flaxseed oil 1,000 mg capsule active Jessica [facility] Active loratadine 10 mg oral tablet (4 sources) Start: 05-09-2024 End: 06-20-2024 loratadine 10 mg oral tablet Dose : 10 mg = 1 tab(s), Oral, qDay, # 14 tab(s), 2 Refill(s), Pharmacy: [id number], Allergic dermatitis, 159, cm, 05/09/24 15:56:00 EST, Height, kg, 05/09/24 15:56:00 EST, Dosing Weight Start Date: 05/09/24 Stop Date: 06/20/24 Status: Ordered Quantity: 14.0 Unit: tab(s) Repeat number: 3 Indication: Allergic contact dermatitis, unspecified cause magnesium hydroxide 400 mg chewable tablet (20 sources) Start: 01-02-2024 End: 04-16-2025 magnesium hydroxide 400 mg oral tablet, chewable Dose : 400 mg = 1 EA, Oral, qDay, patient would like these added to her pill pack, # 90 EA, 3 Refill(s), Pharmacy: [facility], Constipation, 159, cm, 04/16/24 7:17:00 EST, Height, kg, 04/16/24 7:17:00 EST, Dosing Weight Start Date: 04/21/24 Stop Date: 04/16/25 Status: Ordered Medication Dispense Status: Completed Quantity: 90.0 Unit: EA Total Allowed Fills: 4 Fills Dispensed: 0 Indications: Constipation, unspecified; Magnesium Oxide (20 sources) take 1 tablet by mouth once daily magnesium oxide (MAG-OXIDE ORAL) Take 1 tablet by mouth once daily. Active magnesium oxide (MAG-OXIDE ORAL) Take by mouth. Active meloxicam 15 mg oral tablet (5 sources) Nonsteroidal Anti-inflammatory Drug Start: 12-29-2024 meloxicam (Mobic) 15 MG tablet Take 15 mg by mouth. 12/29/2024 Active metFORMIN hydrochloride 500 mg oral tablet (1 source) Biguanide Start: 02-29-2024 End: 03-30-2024 MetFORMIN (Eqv-Glucophage XR) 500 mg oral tablet, EXTENDED RELEASE Dose : 500 mg = 1 tab(s), Oral, qDay, # 30 tab(s), 0 Refill(s), Pharmacy: [facility], Insulin resistance syndrome, 158, cm, 02/27/24 10:40:00 EDT, Height, kg, 02/29/24 8:48:00 EDT, Dosing Weight Start Date: 02/29/24 Stop Date: 03/30/24 Status: Ordered metroNIDAZOLE 500 mg oral tablet (1 source) Nitroimidazole Antimicrobial Start: 05-05-2024 End: 05-19-2024 metroNIDAZOLE 500 mg oral tablet Dose : 500 mg = 1 tab(s), Oral, q12h, X 14 day(s), # 28 tab(s), 0 Refill(s), 05/19/24 1:12:00 PM EST, Pharmacy: [facility], 159, cm, 05/05/24 12:58:00 EST, Height, 104.5, kg, 05/05/24 12:58:00 EST, Dosing Weight Start Date: 05/05/24 Stop Date: 05/19/24 Status: Ordered Quantity: 28.0 Unit: tab(s) Repeat number: 1 montelukast 10 mg oral tablet (20 sources) Leukotriene Receptor Antagonist Start: 03-05-2023 End: 04-04-2023 montelukast 10 mg oral tablet Dose : 10 mg = 1 tab(s), Oral, qDay, # 30 tab(s), 0 Refill(s), Pharmacy: [id number], Asthma, 59.5, cm, 03/05/23 11:42:00 [...] tablet (20 sources) Opioid Antagonist Start: 4 naltrexone 50 mg oral tablet Dose : 50 mg = 1 tab(s), Oral, Daily, # 30 tab(s), 0 Refill(s) Start Date: 12/19/23 Status: Ordered Medication Dispense Status: Completed Quantity: 30.0 Unit: tab(s) Total Allowed Fills: 1 Fills Dispensed: 0 naproxen 500 mg oral tablet (3 sources) Nonsteroidal Anti-inflammatory Drug Start: 3 take 500 mg by mouth twice daily Naproxen Active 500 MG PO TWICE A DAY March 18, 2023 12:00am nitrofurantoin, macrocrystals 25 mg / nitrofurantoin, monohydrate 75 mg oral capsule (15 sources) Nitrofuran Antibacterial Start: 4 End: 4 Macrobid 100 mg oral capsule Dose : 100 mg = 1 cap(s), Oral, BID, Take with food, X 7 day(s), # 14 cap(s), 0 Refill(s), 05/10/24 11:11:00 AM EST, Pharmacy: [id number], 159, cm, 05/02/24 15:02:00 EST, [...] 0 Refill(s), 01/02/24 12:14:00 PM EDT, Pharmacy: [facility], Urinary frequency, 158, cm, 12/26/23 10:31:00 [...] tablet (20 sources) Serotonin-3 Receptor Antagonist Start: 03-20-2025 End: 06-18-2025 ondansetron 4 mg oral tablet, disintegrating Dose : 4 mg = 1 tab(s), Oral, q8h, PRN as needed for nausea/vomiting, X 30 day(s), # 30 tab(s), 2 Refill(s), 06/18/25 5:09:00 PM EST, Pharmacy: [facility], 157.5, cm, 03/20/25 16:28:00 EDT, Height, kg, 03/20/25 16:28:00 EDT, Dosing Weight Start Date: 03/20/25 Stop Date: 06/18/25 Status: Ordered Medication Dispense Status: Completed Quantity: 30.0 Unit: tab(s) Total Allowed Fills: 3 Fills Dispensed: 0 Start: 01-22-2024 End: 01-25-2025 take 1 tablet by mouth every eight hours as needed ondansetron ODT (Zofran-ODT) 4 MG disintegrating tablet Take 4 mg by mouth every 8 hours as needed. 01/22/2024 Active Start: 01-22-2024 End: 01-23-2024 4 [...] pantoprazole 40 mg delayed release oral tablet (17 sources) Proton Pump Inhibitor Start: 08-18-2024 pantoprazole 40 mg oral enteric coated tablet Dose : 40 mg = 1 tab(s), Oral, qDay, # 90 tab(s), 3 Refill(s), Pharmacy: [facility], Chronic nausea, 157.5, cm, 08/01/24 12:59:00 EDT, Height, kg, 08/01/24 12:59:00 EDT, Dosing Weight Start Date: 08/18/24 Status: Ordered Medication Dispense Status: Completed Quantity: 90.0 Unit: tab(s) Total Allowed Fills: 4 Fills Dispensed: 0 Indications: Nausea; Start: 04-16-2024 End: 07-15-2024 pantoprazole 40 mg oral ente reshma coated tablet Dose : 40 mg = 1 tab(s), Oral, qDay, # 90 tab(s), 0 Refill(s), Pharmacy: [facility], Chronic nausea, 159, cm, 04/16/24 7:17:00 [...] capsules by m outh once daily prazosin (Minipress) 1 MG capsule Take 2 mg by mouth daily. 01/02/2024 Active Start: 01-02-2024 take 1 capsule by mo uth once daily prazosin (MINIPRESS) 1 mg cap Take 1 mg by mouth once daily. 01/02/2024 Active predniSONE (9 sources) Start: 12-29-2024 Deltasone 5 mg tab (TAPER) Dose : 5 mg = 1 tab(s), See Instructions, Takes 5mg for 8 days then will stop and start meloxicam, 0 Refill(s) Start Date: 12/29/24 Status: Ordered Medication Dispense Status: Completed Total Allowed Fills: 1 Fills Dispensed: 0 Start: 02-27-2024 Deltasone 20mg tab (TAPER) 0 [...] Comment on above: Take 2 tablets by [facility] once daily for 5 days. Prescription MISCellaneous (20 sources) Start: 08-01-2024 Prescription MISCellaneous See Instructions, Ensure high protein (or similar insurance preferred substitute), 8oz twice daily x30 days, 60 bottles with 11 refills., # 1 EA, 11 Refill(s), Chronic nausea Weight loss, 96.9 Start Date: 08/01/24 Status: Ordered Medication Dispense Status: Completed Quantity: 1.0 Unit: EA Total Allowed Fills: 12 Fills Dispensed: 0 Indications: Nausea; Abnormal weight loss; Start: 08-01-2024 Prescription M ISCellaneous See Instructions, Ensure high protein (or similar [...] Migraines, 104.9 Start Date: 06/22/23 Status: Ordered Medication Dispense Status: Completed Quantity: 4.0 Unit: EA Total Allowed Fills: 1 Fills Dispensed: 0 Indications: Migraine, unspecified, not intractable, without status [...] Date: 06/22/23 Status: Ordered 24 hr QUEtiapine 300 mg extended release oral tablet (20 sources) Atypical Antipsychotic Start: 09-10-2024 QUEtiap ine 200 mg oral tablet, extended release Dose : 200 mg = 1 tab(s), Oral, qDay, # 30 tab(s), 0 Refill(s) Start Date: 09/10/24 Status: Ordered Medication Dispense Status: Completed Quantity: 30.0 Unit: tab(s) Total Allowed Fills: 1 Fills Dispensed: 0 Start: 12-19-2023 QUEtiapine 300 mg oral tablet, extended release Dose : 300 mg = 1 tab(s), Oral, qDay, # 30 tab(s), 0 Refill(s) Start Date: 02/20/25 Status: Ordered Medication Dispense Status: Completed Quantity: 30.0 Unit: tab(s) Total Allowed Fills: 1 Fills Dispensed: 0 Start: 12-19-2023 take 100 mg by mouth once daily at bedtime QUEtiapine XR (SEROQUEL XR) 50 mg Tb24 Take 100 mg by mouth daily at bedtime. 12/19/2023 Active Start: 12-19-2023 QUEtiapine 50 mg oral tablet, extended release Dose : 100 mg = 2 tab(s), Oral, qDay, # 30 tab(s), 0 Refill(s) Start Date: 12/19/23 Status: Ordered Quantity: 30.0 Unit: tab(s) Repeat number: 1 Skyrizi (2 sources) Start: 02-20-2025 Skyrizi See Instructions, Skyrizi injections (will start to give injections at home every 12 weeks), 0 Refill(s) Start Date: 02/20/25 Status: Ordered Medication Dispense Status: Completed Total Allowed Fills: 1 Fills Dispensed: 0 Risankizumab-rzaa (SKYRIZI IV) (2 sources) Risankizumab-rza a (SKYRIZI IV) Inject into the shoulder, thigh, or buttocks Once as needed (once every 12 weeks). Active semaglutide, weight loss, (WEGOVY) 0.25 mg/0.5 mL [...] days. 2 mL 09/22/2024 10/20/2024 Active sennosides, prison 8.6 mg oral tablet (1 source) Start: 05-26-2024 End: 07-19-2024 Senokot 8.6 mg oral tablet Dose : 8.6 mg = 1 tab(s), Oral, BID, PRN as needed for constipation, # 60 tab(s), 1 Refill(s), 07/19/24 8:00:00 AM EST, Pharmacy: [id number], 159, cm, 05/19/24 15:53:00 EST, Height, kg, 05/19/24 15:53:00 EST, Dosing Weight Start Date: 05/26/24 Stop Date: 07/19/24 Status: Ordered Quantity: 60.0 Unit: tab(s) Repeat number: 2 sertraline 100 mg oral tablet (20 sources) Serotonin Reuptake Inhibitor Start: 12-20-2023 Zoloft 100 mg oral tablet Dose : 100 mg = 1 tab(s), Oral, qDay, # 90 tab(s), 2 Refill(s), Pharmacy: [facility], Major depressive disorder, recurrent episode, severe with anxious distress, 158, cm, 12/19/23 8:04:00 EDT, Height, kg, 12/19/23 8:04:00 EDT, Dosing Weight Start Date: 12/20/23 Status: Ordered Start: 05-29-2023 Zoloft 100 mg oral tablet Dose : 100 mg = 1 tab(s), Oral, qDay, # 90 tab(s), 2 Refill(s), Pharmacy: [id number], Major depressive disorder, recurrent episode, severe [...] day(s), # 28 tab(s), 0 Refill(s), Pharmacy: [facility], 159, cm, 05/05/24 12:58:00 EST, Height, 104.5, kg, 05/05/24 12:58:00 EST, Dosing Weight Start Date: 05/05/24 Stop Date: 05/19/24 Status: Ordered Quantity: 28.0 Unit: tab(s) Repeat number: 1 sumatriptan succ/naproxen sod (SUMATRIPTAN-NAPROXEN ORAL) (20 sources) sumatriptan succ/naproxen sod (SUMATRIPTAN-NAP ROXEN ORAL) Take 1 tablet by mouth as needed. Active sumatriptan succ /naproxen sod (SUMATRIPTAN-NAPROXEN ORAL) Active tamsulosin hydrochloride 0.4 mg oral capsule (1 source) alpha-Adrenergic Sonal Start: 02-20-2025 End: 03-06-2025 tamsulosin 0.4 mg oral capsule Dose : 0.4 mg = 1 cap(s), Oral, qDay, # 14 cap(s), 0 Refill(s), Pharmacy: [facility], Flank pain, 157.5, cm, 02/20/25 16:07:00 EDT, Height, kg, 02/20/25 16:07:00 EDT, Dosing Weight Start Date: 02/20/25 Stop Date: 03/06/25 Status: Ordered Medication Dispense Status: Completed Quantity: 14.0 Unit: cap(s) Total Allowed Fills: 1 Fills Dispensed: 0 Indications: Unspecified abdominal pain; traZODone hydrochloride 50 mg oral tablet (4 sources) Serotonin Reuptake Inhibitor Start: 03-20-2025 traZODone 50 mg oral tablet Dose : 50 mg = 1 tab(s), Oral, qHS, 0 Refill(s) Start Date: 03/20/25 Status: Ordered Medication Dispense Status: Completed Total Allowed Fills: 1 Fills Dispensed: 0 traZODone (Desyr el) 50 MG tablet trazodone 50 mg tablet active Jessica Saldivar [facility] Active VITAMIN D (ERGOCALCIFEROL) (ERGOCALCIFEROL) 1.25 MG (97402 UT) CAPS (1 source) Vitamin D2 1,250 mcg (50,000 unit) capsule active Jessica Saldivar [facility] Vitamin D2 1.25 mg (50,000 intl units) oral capsule (20 sources) Start: 03-16-2025 End: 09-12-2025 take 1 capsule by mouth once, then take 1 capsule by mouth every week Vitamin D2 1.25 mg (50,000 intl units) oral capsule Dose : 50,000 International_Unit = 1 cap(s), Oral, qWeek, # 13 cap(s), 1 Refill(s), Pharmacy: [facility], Vitamin D deficiency, 157.5, cm, 02/20/25 16:07:00 EDT, Height, kg, 02/20/25 16:07:00 EDT, Dosing Weight Start Date: 03/16/25 Stop Date: 09/12/25 Status: Ordered Medication Dispense Status: Completed Quantity: 13.0 Unit: cap(s) Total Allowed Fills: 2 Fills Dispensed: 0 Indications: Vitamin D deficiency, unspecified; Start: 09-01-2024 End: 02-28-2025 take 1 capsule by mouth once, then take 1 capsule by mouth every week Vitamin D2 1.25 mg (50,000 intl units) oral capsule Dose : 50,000 International_Unit = 1 cap(s), Oral, qWeek, # 13 cap(s), 1 Refill(s), Pharmacy: [facility], Vitamin D deficiency, 157.5, cm, 08/01/24 12:59:00 EDT, Height, kg, 08/01/24 12:59:00 EDT, Dosing Weight Start Date: 09/01/24 Stop Date: 02/28/25 Status: Ordered Medication Dispense Status: Completed Quantity: 13.0 Unit: cap(s) Total Allowed Fills: 2 Fills Dispensed: 0 Indications: Vitamin D deficiency, unspecified; Start: 09-01-2024 End: 02-28-2025 take 1 capsule by mouth once, then take 1 capsule by mouth every week Vitamin D2 1.25 mg (50,000 intl units) oral capsule Dose : 50,000 International_Unit = 1 cap(s), Oral, qWeek, # 13 cap(s), 1 Refill(s), Pharmacy: [facility], Vitamin D deficiency, 157.5, cm, 08/01/24 12:59:00 [...] qWeek, # 13 cap(s), 1 Refill(s), Pharmacy: [facility], Vitamin D deficiency, 158, cm, 02/27/24 10:40:00 [...] qWeek, # 13 cap(s), 1 Refill(s), Pharmacy: [facility], Vitamin D deficiency, 158, cm, 02/27/24 10:40:00 EDT, Height, kg, 02/27/24 10:40:00 EDT, Dosing Weight Start Date: 02/27/24 Stop Date: 08/25/24 Status: Ordered Start: 11-16-2023 End: 05-14-2024 Vitamin D2 1.25 mg (50,000 i ntl units) oral capsule Dose : 50,000 International_Unit = 1 cap(s), Oral, qWeek, # 13 cap(s), 1 Refill(s), Pharmacy: [id number], Vitamin D deficiency, 158, cm, [...] diphenhydrAMINE (3 sources) Histamine-1 Receptor Antagonist Start: End: 09-04-2 024 50 mg, INTRAVENOUS, NEEDED, 1 dose, [...] PER PKG DIR MiscMED Miscellaneous Medica tion (18 sources) Start: 12-29-2024 MiscMED Miscel laneous Medication See Instructions, Takes 1 tablet of Ferrofood daily, 0 Refill(s), 96.2 Start Date: 12/29/24 Status: Ordered Medication Dispense Status: Completed Total Allowed Fills: 1 Fills Dispensed: 0 Start: 03-12-2024 MiscMED Miscel laneous Medication See Instructions, Takes Blood Sugar [place], 1 cap daily, 0 Refill(s), 104.1 Start Date: 03/12/24 Status: Ordered Repeat number: 1 Start: 03-12-2024 MiscMED Miscel laneous Medication See Instructions, Takes Blood Sugar [place], 1 cap daily, 0 Refill(s), 104.1 Start [...] qDay, # 30 cap(s), 0 Refill(s), Pharmacy: [id number], Stomach burning, 159.5, cm, 10/24/22 15:50:00 EDT, Height, kg, 02/28/23 11:25:00 EDT, Dosing Weight Start Date: 02/28/23 Stop Date: 03/30/23 Status: Ordered sucralfate 1000 mg oral tablet (11 sources) Aluminum Complex Start: 11-26-2024 End: 01-25-2025 sucralfate 1 g oral tablet Dose : 1 gram(s) = 1 tab(s), Oral, achs, PRN Mouth sore pain, let tablet melt in the mouth to coat the mouth d/t sores., # 60 tab(s), 1 Refill(s), Pharmacy: [facility], Mouth pain, 157.5, cm, 11/26/24 14:53:00 EDT, Height, kg, 11/26/24 14:53:00 EDT, Dosing Weight Start Date: 11/26/24 Stop Date: 01/25/25 Status: Ordered Medication Dispense Status: Completed Quantity: 60.0 Unit: tab(s) Total Allowed Fills: 2 Fills Dispensed: 0 Indications: Other lesions of oral mucosa; Start: 05-02-2024 End: 05-09-2024 sucralfate 1 g oral tablet D ose : 1 gram(s) = 1 tab(s), Oral, q6h, PRN Other (see order comments), let tablet melt in mouth to coat mouth sores., # 28 tab(s), 0 Refill(s), Pharmacy: [id number], Mouth sores, 159, cm, 05/02/24 [...] 0 Refill(s), 04/28/24 11:41:00 AM EST, Pharmacy: [facility], 159, cm, 04/16/24 7:17:00 EST, Height, 103.1, kg, 04/16/24 7:17:00 EST, Dosing Weight Start Date: 04/23/24 Stop Date: 04/28/24 Status: Ordered Start: 07-24-2023 End: 02-19-2024 valACYclovir 500 mg oral tab let Dose : 500 mg = 1 tab(s), Oral, qDay, X 30 day(s), # 30 tab(s), 6 Refill(s), 02/19/24 2:15:00 PM EDT, Pharmacy: [id number], HSV-1 infection, 158, cm, 07/24/23 [...] Date Documented Da te Episodic/Chronic Abdominal pain (8 sources) Abdominal pain; Translations: [Unspecified abdominal pain] [...] not elsewhere classified, initial encounter] 02-01-2024 Episodic Deficiency and other anemia (1 source) Anemia; Translations: [Anemia, unspecified] Episodic Deficiency and other anemia (2 sources) Chronic anemia 02-20-2025 Episodic Deficiency and other anemia (2 sources) Anemia, unspecified; Translations: [Anemia, unspecified] Onset: 5 Episodic Diabetes mellitus without complication (13 sources) Prediabetes; Translations: [Prediabetes] Onset: 5 09-16-2024 Episodic Genitourinary symptoms and ill-defined conditions (1 source) Nocturnal enuresis; Translations: [Nocturnal enuresis] Onset: 5 Chronic Headache; including migraine (20 sources) Migraine; Translations: [Migraine, unspecified, not intractable, without status migrainosus] Onset: 4 06-22-2023 Chronic Immunizations and screening for infectious disease (2 sources) Contact with or exposure to other viral diseases 03-19-2023 Episodic Joint disorders and dislocations; trauma-related (6 sources) Patellofemoral syndrome of bilateral knees; Translations: [Patellofemoral disorders, right knee] Onset: 5 08-06-2023 Chronic Menstrual disorders (18 sources) Irregular periods; Translations: [Menorrhagia] Onset: 4 06-22-2023 Chronic Mood disorders (20 sources) Severe recurrent major depression; Translations: [Major depressive disorder, recurrent severe without psychotic features] Onset: 4 10-24-2022 Chronic Mycoses (20 sources) Histoplasmosis; Translations: [Histoplasmosis, unspecified] Onset: 5 07-24-2024 Episodic Nonmalignant breast conditions (1 source) Fibrocystic [...] [Vitamin D deficiency, unspecified] 09-27-2023 Chronic Other circulatory disease (1 source) History of [...] source) Fibromyalgia; Translations: [Fibromyalgia] 08-06-2023 Episodic Other connective tissue disease (3 sources) Pelvic floor dysfunction; Translations: [Other specified disorders of muscle] Onset: 5 03-11-2025 Episodic Other connective tissue disease (2 sources) Other specified disorders of muscle; Translations: [Other specified disorders of muscle] Onset: 5 Episodic Other endocrine disorders (1 source) Polycystic ovarian syndrome; Translations: [Polycystic ovarian syndrome] Onset: 5 Chronic Other female genital disorders (1 source) Abnormal uterine bleeding; Translations: [Abnormal uterine and vaginal bleeding, unspecified] Onset: 4 Chronic Other female genital disorders (2 sources) Other specified noninflammatory disorders of cervix uteri; Translations: [Other specified noninflammatory disorders of cervix uteri] Onset: 4 Episodic Other female genital disorders (3 sources) Chronic pelvic pain of female; Translations: [Chronic pelvic pain in female] Onset: 5 03-11-2025 Episodic Other gastrointestinal disorders (3 sources) Irritable [...] 08-06-2023 Episodic Other inflammatory condition of skin (1 source) Psoriasis vulgaris; Translations: [Psoriasis vulgaris] Onset: 5 Chronic Other inflammatory condition of skin (3 sources) Intertrigo; Translations: [Erythema intertrigo] 12-31-2023 Episodic Other injuries and conditions due to external causes (20 sources) H/O: injury; Translations: [Personal history of other (healed) physical injury and trauma] Onset: 4 04-10-2023 Episodic Other injuries and conditions due to [...] Onset: 5 Chronic Other lower respiratory disease (20 sources) Multiple nodules of lung; Translations: [Other nonspecific abnormal finding of lung field] Onset: 3 10-24-2022 Episodic Other lower respiratory disease (3 sources) Pleuritic [...] disorders] 09-27-2023 Episodic Other lower respiratory disease (6 sources) Chronic cough; Translations: [Chronic cough] Onset: 5 04-08-2024 Episodic Other lower respiratory disease (1 source) Cough; Translations: [Acute cough] 09-01-2024 Episodic Other nervous system disorders (4 sources) Other chronic pain; Translations: [Chronic bilateral low back pain without sciatica] Onset: Chronic Other nervous system disorders (1 source) Chronic pain; Translations: [Other chronic pain] Chronic Other nervous system disorders (1 source) Acute postoperative pain;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 the Left Knee on 11/13/2024 at [facility]. Work Phone: MTHFRMon 02-26-2025 MTHFR Source Blood Normal [facility] Comment on above: Order Comment: recur rent superficial blood clots, difficulty absorbing iron Performed By: #### G FR, BMP, HFP #### [facility] [address], [place] [address] MTHFR Note Normal [facility] Comment on above: Order Comment: recur rent superficial blood clots, difficulty absorbing iron Result Comment: TEST S RESULT FLAG UNITS REF RANGE LAB MTHFR, DNA Anaylsis Note 01 Result: c.665C>T (p. [id number]), legacy name: [id number] - Detected, heterozygous c.1286A>C (p. [id number]), legacy name: [id number] - Not Detected Interpretation: This result is not associated with an increased risk for hyperhomocysteinemia. See Additional Clinical Information and Comments. Please Note: 01 Additional Clinical Information: Hyperhomocysteinemia is multifactorial involving genetic, clinical, and environmental risk factors. Reduced enzyme activity of methylenetetrahydrofolate reductase (MTHFR) is a genetic risk factor for hyperhomocysteinemia, particularly when serum folate levels are low. There are two common variants in the MTHFR gene that can decrease enzyme activity; c.665C>T (p. [id number]), legacy name [id number], and c.1286A>C (p. [id number]), legacy name [id number]. These variants do not independently increase risk of conditions related to hyperhomocysteinemia in the absence of elevated homocysteine levels. Measurement of total plasma homocysteine is recommended. Patients should share their MTHFR genotype with physicians who are making decisions regarding chemotherapy treatments that depend on folate, such as methotrexate. Guidelines do not recommend genotyping of these two MTHFR variants in the evaluation of venous thrombosis or obstetric risk due to limited evidence of clinical utility (PMID: 31133738). Comments: Genetic Coordinators are available for health care providers to discuss results at [phone]). Test Details: Variants Analyzed: c.665C>T (p. [id number]), legacy name: [id number] and c.1286A>C (p. [id number]), legacy name: [id number] Methods/Limitations: DNA analysis of the MTHFR gene was performed by PCR amplification followed by restriction enzyme analysis. The diagnostic sensitivity is >99%. Results must be combined with clinical information for the most accurate interpretation. Molecular-based testing is highly accurate, but as in any laboratory test, diagnostic errors may occur. False positive or false negative results may occur for reasons that include genetic variants, blood transfusions, bone marrow transplantation, somatic or tissue-specific mosaicism, mislabeled samples, or erroneous representation of family relationships. This test was developed and its performance characteristics determined by [facility]. It has not been cleared or approved by the Food and Drug Administration. References: Lester SE, Zay CJ, Lora WATERS. ACMG Practice Guideline: lack of evidence for MTHFR polymorphism testing. Mary Med. 2013 Jun;15(2):153-6. doi: 10.1038/gim.2012.165. Epub 2012May 23. PMID: 05491751. [place] [employer]' Committee on Practice Bulletins-Obstetrics. ACOG Practice Bulletin No. 197: Inherited Thrombophilias in . Obstet Gynecol. 2018 Nov;132(1):e18-e34. doi: 10.1097/AOG.0489092912918304. Erratum in: Obstet Gynecol. 2018 Feb;132(4):1069. PMID: 58449584. Reviewed by Note 01 Technical Component performed at [facility] [place] Professional Component performed by: Madelyn Lemus, PhD, [facility] [id number], [facility], [address] [place] [address] FLAG LEGEND: L-Low Normal,H-High Normal,LL-Alert Low,HH-Alert High <-Panic Low,>-Panic High,A-Abnormal,AA-Critical Abnormal Performed at: [facility] [address] [place], [place] [address] Maria Del Carmen [facility], Performed At: [facility] [address] [place], [place] [id number] [facility] Joyce [facility] Ph:[phone] Performed By: #### PATRICIA STOCKTON, HFP #### [address] [address] .Auto Diffon 02-23-2025 Basophil, Absolute 0.0 10 3/mcL Normal 0.0-0.3 [facility] Comment on above: Performed By: #### PATRICIA STOCKTON, HFP #### [address] [address] Basophils/100 WBC (Bld) 0.3 % Normal 0.0-2.5 [facility] Comment on above: Performed By: #### PATRICIA STOCKTON, HFP #### [address] [address] Eosinophil, Absolute 0.2 10 3/mcL Normal 0.0-0.7 [facility] Comment on above: Performed By: #### PATRICIA STOCKTON, HFP #### [address] [address] Eosinophils/100 WBC (Bld) 2.3 % Normal 0.0-6.0 [facility] Comment on above: Performed By: #### PATRICIA STOCKTON, HFP #### [address] [address] Lymphocyte, Absolute 3.0 10 3/mcL Normal 0.9-4.3 [facility] Comment on above: Performed By: #### G PATRICIA BILLINGSLEY, HFP #### [address] [address] Lymphocytes/100 WBC (Bld) 42.3 % High 20.0-40.0 [facility] Comment on above: Performed By: #### PATRICIA STOCKTON, HFP #### [address] [address] Monocyte, Absolute 0.6 10 3/mcL Normal 0.1-1.4 [facility] Comment on above: Performed By: #### G PATRICIA BILLINGSLEY, HFP #### [address] [address] Monocytes/100 WBC (Bld) 8.6 % Normal 2.0-13.0 [facility] Comment on above: Performed By: #### PATRICIA STOCKTON, HFP #### [address] [address] Neutrophils/100 WBC (Bld) 46.5 % Low 50.0-75.0 [facility] Comment on above: Performed By: #### PATRICIA STOCKTON, HFP #### [address] [address] .GFRon 02-23-2025 Estimated Glomerular Filtration Rate 103 ml/min/1.73sqm Normal [facility] Comment on above: Result Comment: Stages of [...] the eGFR results. Performed By: #### G PATRICIA BILLINGSLEY, HFP #### [address] [address] .NEUABSon 02-23-2025 Neutrophil, Absolute 3.3 10 3/mcL Normal 2.3-8.1 [facility] Comment on above: Performed By: #### G FR, BMP, HFP #### [place] [address] CBCon 02-23-2025 Erythrocyte distribution width (RBC) [Ratio] 13.1 % Normal 11.5-15.5 [facility] Comment on above: Performed By: #### G FR, BMP, HFP #### [place] [address] Hematocrit (Bld) [Volume fraction] 36.3 % Normal 34.0-46.0 [facility] Comment on above: Performed By: #### G FR, BMP, HFP #### [place] [address] Hgb 12.1 G/dL Normal 12.0-16.0 [facility] Comment on above: Performed By: #### G FR, BMP, HFP #### [place] [address] MCH (RBC) [Entitic mass] 29.2 pg Normal 27.0-33.0 [facility] Comment on above: Performed By: #### G FR, BMP, HFP #### [place] [address] MCHC 33.5 G/dL Normal 32.0-36.0 [facility] Comment on above: Performed By: #### G FR, BMP, HFP #### [place] [address] MCV (RBC) [Entitic vol] 87.1 fL Normal 80.0-99.0 [facility] Comment on above: Performed By: #### G FR, BMP, HFP #### [place] [address] Platelet 251 10 3/mcL Normal 150-450 [facility] Comment on above: Performed By: #### G FR, BMP, HFP #### [address] [address] Platelet mean volume (Bld) [Entitic vol] 8.4 fL Normal 6.6-10.5 [facility] Comment on above: Performed By: #### G FR, BMP, HFP #### [address] [address] RBC 4.16 10 6/mcL Normal 4.10-5.30 [facility] Comment on above: Performed By: #### G FR, BMP, HFP #### [address] [address] WBC 7.2 10 3/mcL Normal 4.5-10.8 [facility] Comment on above: Performed By: #### G FR, BMP, HFP #### [address] [address] CMPon 02-23-2025 Albumin Level 3.6 G/dL Normal 3.5-5.0 [facility] Comment on above: Performed By: #### G FR, BMP, HFP #### [address] [address] Albumin/Globulin [Mass ratio] 1.0 {ratio} Low 1.1-2.5 [facility] Comment on above: Performed By: #### G FR, BMP, HFP #### [address] [address] ALP [Catalytic activity/Vol] 75 U/L Normal 40-135 [facility] Comment on above: Performed By: #### G FR, BMP, HFP #### [address] [address] ALT [Catalytic activity/Vol] 21 U/L Normal 14-59 [facility] Comment on above: Performed By: #### G FR, BMP, HFP #### [address] [address] AST [Catalytic activity/Vol] 16 U/L Normal 10-40 [facility] Comment on above: Performed By: #### G FR BMP, HFP #### [place] [address] Bili Total 0.3 mg/dL Normal 0.2-1.0 [facility] Comment on above: Result Comment: Use of this assay is not recommended for patients undergoing treatment with eltrombopag due to the potential for falsely elevated results. Performed By: #### G FR BMP, HFP #### [place] [address] BUN/Creatinine Ratio 21 ratio Normal 7-27 [facility] Comment on above: Performed By: #### G FR BMP, HFP #### [place] [address] Calcium [Mass/Vol] 8.7 mg/dL Normal 8.4-10.2 [facility] Comment on above: Performed By: #### Puneet BILLINGSLEY BMP, HFP #### [place] [address] Chloride [Moles/Vol] 104 mmol/L Normal 98-107 [facility] Comment on above: Performed By: #### G FR BMP, HFP #### [place] [address] CO2 [Moles/Vol] 30 mmol/L High 22-29 [facility] Comment on above: Performed By: #### G FR BMP, HFP #### [place] [address] Creatinine [Mass/Vol] 0.81 mg/dL Normal 0.51-0.95 [facility] Comment on above: Performed By: #### G FR, BMP, HFP #### [place] [address] Electrolyte Balance 9.0 mEq/L Normal 4.0-15.0 [facility] Comment on above: Performed By: #### G FR, BMP, HFP #### [place] [address] Globulin 3.7 G/dL Normal 2.7-4.4 [facility] Comment on above: Performed By: #### G FR, BMP, HFP #### [address] [address] Glucose [Mass/Vol] 103 mg/dL Normal 70-105 [facility] Comment on above: Performed By: #### G FR, BMP, HFP #### [address] [address] Potassium [Moles/Vol] 3.9 mmol/L Normal 3.5-5.1 [facility] Comment on above: Performed By: #### G FR, BMP, HFP #### [address] [address] Sodium [Moles/Vol] 143 mmol/L Normal 136-145 [facility] Comment on above: Performed By: #### G FR, BMP, HFP #### [address] [address] Total Protein 7.3 G/dL Normal 6.4-8.2 [facility] Comment on above: Performed By: #### G FR, BMP, HFP #### [address] [address] Urea nitrogen [Mass/Vol] 17 mg/dL Normal 7-18 [facility] Comment on above: Performed By: #### G FR, BMP, HFP #### [address] [address] CRPon 02-23-2025 C-Reactive Protein 0.8 mg/dL High 0.0-0.3 [facility] Comment on above: Performed By: #### G FR, BMP, HFP #### [address] [address] HOMOon 02-23-2025 Homocysteine 12.1 umol/l Normal 3.7-13.9 [facility] Comment on above: Result Comment: No te - New Reference Range in effect 19 Performed By: #### G FR, BMP, HFP #### [facility] [address], [place] [address] LABORATORYOrdered By: SYSTEM SYSTEM on 02-23-2025 Albumin BCP dye [Mass/Vol] 3.6 G/dL Normal 3.5 - 5.0 G/dL AO ADM SS Albumin/Globulin [Mass ratio] 1.0 {ratio} Low 1.1 - 2.5 ratio AO ADM SS ALP [Catalytic activity/Vol] 75 U/L Normal 40 - 135 U/L AO ADM SS ALT With P-5'-P [Catalytic activity/Vol] 21 U/L Normal 14 - 59 U/L AO ADM SS AST With P-5'-P [Catalytic activity/Vol] 16 U/L Normal 10 - 40 U/L AO ADM SS Basophils (Bld) [#/Vol] 0.0 103/mcL Normal 0.0 - 0.3 10^3/mcL AO Workflow SS Basophils/100 WBC (Bld) 0.3 % Normal 0.0 - 2.5 % AO Workflow SS Bilirubin [Mass/Vol] 0.3 mg/dL Normal 0.2 - 1 .0 mg/dL AO ADM SS Comment on above: Interpretive Data: U se of this assay is not recommended for patients undergoing treatment with eltrombopag due to the potential for falsely elevated results. Calcium [Mass/Vol] 8.7 mg/dL Normal 8.4 - 10. 2 mg/dL AO ADM SS Chloride [Moles/Vol] 104 mmol/L Normal 98 - 10 7 mmol/L AO ADM SS CO2 [Moles/Vol] 30 mmol/L High 22 - 29 mmol/L AO ADM SS Creatinine [Mass/Vol] 0.81 mg/dL Normal 0.51 - 0.95 mg/dL AO ADM SS CRP [Mass/Vol] 0.8 mg/dL High 0.0 - 0.3 mg/dL AO ADM SS Electrolyte Balance 9.0 mEq/L Normal 4.0 - 15 .0 mEq/L AO ADM SS Eosinophil, Absolute 0.2 103/mcL Normal 0.0 - 0 .7 10^3/mcL AO Workflow SS Eosinophils/100 WBC (Bld) 2.3 % Normal 0.0 - 6.0 % AO Workflow SS Erythrocyte distribution width (RBC) [Ratio] 13.1 % Normal 11.5 - 15.5 % AO Workflow SS Globulin 3.7 G/dL Normal 2.7 - 4.4 G/dL AO ADM SS GLOMERULAR FILTRATION RATE/1.73 SQ M.PREDICTED:ARVRAT:PT :SER/PLAS/BLD:QN:CREA TININE-BASED FORMULA (CKD-EPI 2020) 103 ml/min/1.73sqm Invalid Interpretation Code AO Chemistry S Comment on above: Interpretive Data: Stages of Chronic Kidney Disease (CKD) Stage [...] race factor to calculate the eGFR results. Glucose [Mass/Vol] 103 mg/dL Normal 70 - 105 mg/dL AO ADM SS Hematocrit (Bld) [Volume fraction] 36.3 % Normal 34.0 - 46.0 % AO Workflow SS Hemoglobin (Bld) [Mass/Vol] 12.1 G/dL Normal 12.0 - 16.0 G/dL AO Workflow SS Homocysteine [Moles/Vol] 12.1 umol/L Normal 3.7 - 13.9 umol/L AH ADM SS Comment on above: Interpretive Data: * *Note - New Reference Range in effect 19 Lymphocytes (Bld) [#/Vol] 3.0 103/mcL Normal 0.9 - 4.3 10^3/mcL AO Workflow SS Lymphocytes/100 WBC (Bld) 42.3 % High 20.0 - 40.0 % AO Workflow SS MCH (RBC) [Entitic mass] 29.2 pg Normal 27.0 - 33.0 pg AO Workflow SS MCHC 33.5 G/dL Normal 32.0 - 36.0 G/dL AO Workflow SS MCV (RBC) [Entitic vol] 87.1 fL Normal 80.0 - 99.0 fL AO Workflow SS Monocytes (Bld) [#/Vol] 0.6 103/mcL Normal 0.1 - 1.4 10^3/mcL AO Workflow SS Monocytes/100 WBC (Bld) 8.6 % Normal 2.0 - 13.0 % AO Workflow SS Neutrophils (Bld) [#/Vol] 3.3 103/mcL Normal 2.3 - 8.1 10^3/mcL AO Workflow SS Neutrophils/100 WBC (Bld) 46.5 % Low 50.0 - 75.0 % AO Workflow SS Platelet mean volume (Bld) [Entitic vol] 8.4 fL Normal 6.6 - 10.5 fL AO Workflow SS Platelets (Bld) [#/Vol] 251 103/mcL Normal 150 - 450 10^3/mcL AO Workflow SS Potassium [Moles/Vol] 3.9 mmol/L Normal 3.5 - 5.1 mmol/L AO ADM SS Protein [Mass/Vol] 7.3 G/dL Normal 6.4 - 8.2 G/dL AO ADM SS RBC (Bld) [#/Vol] 4.16 106/mcL Normal 4.10 - 5.3 0 10^6/mcL AO Workflow SS Sodium [Moles/Vol] 143 mmol/L Normal 136 - 145 mmol/L AO ADM SS Urea nitrogen [Mass/Vol] 17 mg/dL Normal 7 - 18 mg/dL AO ADM SS Urea nitrogen/Creatinine [Mass ratio] 21 ratio Normal 7 - 27 ratio AO ADM SS WBC (Bld) [#/Vol] 7.2 103/mcL Normal 4.5 - 10.8 10^3/mcL AO Workflow SS Quantiferon TB-Gold+on 02-21 QFT MITOGEN NANNETTE > 10.00 Normal . [facility] Comment on above: Performed By: #### L 3400.8000 ####[facility] [address] [place], [place], [id number] QFT NIL VALUE 0.03 IU/mL Normal . [facility] Comment on above: Performed By: #### L 3400.8000 ####[facility] [address] [place], [place], [phone] QFT TB GOLD+ Comment Normal . [facility] Comment on above: Result Comment: Vincent tiFERON-TB Gold Plus is a qualitative indirect test for M tuberculosis infection (including disease) and is intended for use in conjunction with risk assessment, radiography, and other medical and diagnostic evaluations. The QuantiFERON-TB Gold Plus result is determined by subtracting the Nil value from either TB antigen (Ag) value. The Mitogen tube serves as a control for the test. Performed By: #### L 3400.8000 ####[facility] [address] [place], [place], [id number] QFT TB POS CRIT Negative Normal Negative [facility] Comment on above: Result Comment: No r esponse to M tuberculosis antigens detected. Infection with M tuberculosis is unlikely, but high risk individuals should be considered for additional testing (ATS/IDSA/CDC Clinical Practice Guidelines, 2017). The reference range is an Antigen minus Nil result of <0.35 IU/mL. The specimen received for QuantiFERON testing was incubated by the ordering institution. Specific procedures outlined in our Directory of Services and in the package insert for the QuantiFERON Gold (In Tube) test must be followed to enable for proper stimulation of cells for the production of interferon gamma. Chemiluminescence immunoassay methodology Performed at: [facility] [id number] [employer] Technicians: Julian Wang PhD, Phone: [phone] Performed By: #### L 3400.8000 ####[facility] [address] [place], [place], [phone] QFT TB1+ AG NANNETTE 0.03 IU/mL Normal . [facility] Comment on above: Performed By: #### L 3400.8000 ####[facility] [address] [place], [place], [phone] QFT TB2+ AG NANNETTE 0.03 IU/mL Normal . [facility] Comment on above: Performed By: #### L 3400.8000 ####[facility] [address] [place], [place], [phone] Gastroenterology Visit Repor ton 01-14-2025 Gastroenterology Visit Report [facility] [address] [place] [address] OFFICE VISIT Date of Service: 01/14/25 MR#: [id number] Acct: [id number] Name: MATT CALABRESE Rep #: [id number] 5 : 2000 Provider: LENA tate Age/Sex: 24/F Location: [facility] [place] Status: Signed Intake Vital Signs 11/26/24 08:13 01/14/25 08:05 Height 5 ft 3 in 5 ft 3 in Weight: 216 lb 2 oz 212 lb 4 oz BMI 38.2 37.5 BP 109/75 114/77 Respiration 16 16 Pulse 82 94 Temp 97.9 F 98.5 F Temp Source Temporal Temporal Pulse Oximetry (%) 97 97 Oxygen Delivery Method room air room air Intake Visit Reasons: 6 wk FU Chief Complaint: follow-up Instructor Technical Training Required: No Accompanied by: Self Is patient in pain?: No Allergies amoxicillin Allergy (Verified 01/14/25 07:59) Upset Stomach erythromycin base Allergy (Verified 01/14/25 07:59) Upset Stomach Penicillins (PCN) Allergy (Verified 01/14/25 07:59) Upset Stomach azithromycin (From Zithromax) Adverse Reaction (Intermediate, Verified 01/14/25 07:59) Hives metronidazole (From Flagyl) Adverse Reaction (Intermediate, Verified 01/14/25 07:59) Rash sulfamethoxazole (From Bactrim) Adverse Reaction (Intermediate, Verified 01/14/25 07:59) Rash trimethoprim (From Bactrim) Adverse Reaction (Intermediate, Verified 01/14/25 07:59) Rash trazodone Adverse Reaction (Unknown, Verified 01/14/25 07:59) suicidal ideation Medications ???Medication ???Instructions ???Recorded ???Confirmed ???Type ergocalciferol (vitamin D2) 1,250 1,250 mcg PO QWEEK 06/09/2401/14 History mcg (50,000 unit) capsule ferrous sulfate 325 mg (65 mg 325 mg PO BID 06/09/24 01/14/25 Hi story iron) tablet flax seed oil 1,000 mg PO DAILY 06/09/24 5 History hydroxyzine HCl 25 mg tablet 25 mg PO Q8H PRN anxiety 06/09/24 01/14/25 History magnesium hydroxide 400 mg (170 mg 400 mg PO QD-BID 06/09/24 History magnesium) chewable tablet ondansetron HCl 4 mg tablet 4 mg PO Q8H PRN nausea and vomitin g 06/09/24 01/14/25 History pantoprazole 40 mg tablet,delayed 40 mg PO QDAY 06/09/24 01/14/25 H istory release Held on 01/14/25. Instructions: will trial another PPI for 7 days sumatriptan succinate 25 mg tablet See Rx Instructions PO .COMPLEX 06/09/24 01/14/25 History quetiapine 100 mg tablet (Seroquel) 200 mg PO QHS 07/10/24 01/14/25 History lactulose 10 gram/15 mL oral 10 g (15 mL) PO ONCE #15 mL 01/14/25 Rx solution buspirone 7.5 mg tablet 7.5 mg PO TID 01/14/25 01/14/25 Hi story lansoprazole 30 mg capsule,delayed 30 mg PO QDAY #7 caps 01/14/25 0 01/14/25 Rx release PFSH Medical History Cirrhosis Histoplasmosis Arthritis Low iron Injury of [...] Contusion of left knee Anxiety Surgical History History of hysterectomy Hx of breast reduction, elective Hx of cholecystectomy Family History Mother Alcohol abuse Breast cancer Hypertension Muscle weakness Substance abuse Father Alcohol abuse Hypertension Grandmother Breast cancer Cancer Sister Hypertension Social History sexually active: No Smoking Status: Never smoker alcohol intake: never substance use type: does not use HPI HPI Chief Complaint: follow-up Details: OV 11/26/2024 The patient is a 24-year-old female presenting with ongoing abdominal pain, nausea, and vomiting. The abdominal pain is localized to the left side, described as burning and achy, and worsens with eating. The nausea is severe, often leading to vomiting shortly after eating, and requires frequent use of Zofran to manage symptoms. History of hyponatremia and pneumonia, for which she was hospitalized in July. She reports persistent nausea dating back to childhood, worse over the past year with no significant weight loss. A gastric emptying study was unremarkable, and an EGD revealed erosive gastropathy with negative biopsies. A CT scan indicated possible fatty liver, confirmed by biopsy. 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 She has been on various medications, including naltrexone, which may contribute to her symptoms. Dietary modifications, including gluten and dairy (more content not included)... Normal [facility] INSLNon 12-31-2024 Insulin 12.58 munit/L Normal 2.60-37.60 [facility] Comment on above: Performed By: #### G PATRICIA BILLINGSLEY, [facility] #### [address] [address] A1Con 12-30-2024 Glucose [Mass/Vol] 128 mg/dL Normal [facility] Comment on above: Result Comment: Edwige mated Average Glucose calculated by equation ((28.7xA1C)-46.7) Estimated average glucose (eAG) is a calculated value from Hemoglobin A1C and is outside dealer sales representative of the average blood glucose level in the last 2-3 month period. Normal range: less than 114 mg/dL Performed By: #### G , PATRICIA, [facility] #### [address] [address] HbA1c (Bld) [Mass fraction] 6.1 % Normal 4.3-6.4 [facility] Comment on above: Performed By: #### G , PATRICIA, [facility] #### [address] [address] LABORATORYOrdered By: Su Summers on 12-30-2024 Cholesterol [Mass/Vol] 216 mg/dL High 0 - 200 mg/dL AO ADM SS Comment on above: Interpretive Data: C holesterol Reference Interval: Less than 200 Desirable 200-239 Borderline high risk 240 and above High risk Cholesterol in HDL [Mass/Vol] 57 mg/dL Normal 40 - 60 mg/dL AO ADM SS Cholesterol in LDL [Mass/Vol] 134 mg/dL High 0 - 130 mg/dL AO ADM SS Triglyceride [Mass/Vol] 127 mg/dL Normal 0 - 150 mg/dL AO ADM SS Comment on above: Interpretive Data: T riglyceride Reference Interval: Less than 150 Normal 150-199 Borderline high risk 200-499 High risk 500 or higher Very high risk LABORATORYOrdered By: SYSTEM SYSTEM on 12-30-2024 Glucose [Mass/Vol] 128 mg/dL Invalid Interpretation Code AO Chemistry S Comment on above: Interpretive Data: E stimated average glucose (eAG) is a calculated value from Hemoglobin A1C and is outside dealer sales representative of the average blood glucose level in the last 2-3 month period. Normal range: less than 114 mg/dL HbA1c (Bld) [Mass fraction] 6.1 % Normal 4.3 - 6.4 % AO ADM SS LIPIDon 12-30-2024 Cholesterol [Mass/Vol] 216 mg/dL High 0-200 [facility] Comment on above: Result Comment: Chol esterol Reference Interval: Less than 200 Desirable 200-239 Borderline high risk 240 and above High risk Performed By: #### G FR, BMP, HFP #### [address] [address] Cholesterol in HDL [Mass/Vol] 57 mg/dL Normal 40-60 [facility] Comment on above: Performed By: #### G FR, BMP, HFP #### [address] [address] Cholesterol in LDL [Mass/Vol] 134 mg/dL High 0-130 [facility] Comment on above: Performed By: #### G FR, BMP, HFP #### [address] [address] Triglyceride [Mass/Vol] 127 mg/dL Normal 0-150 [facility] Comment on above: Result Comment: Trig lyceride Reference Interval: Less than 150 Normal 150-199 Borderline high risk 200-499 High risk 500 or higher Very high risk Performed By: #### G FR, BMP, HFP #### [address] [address] PT D/C Summary (1)on 025 PT D/C Summary (1) [facility] [address] [place] [address] / REHABILITATION SERVICES DISCHARGE SUMMARY MR#: [id number] Acct: [id number] Name: MATT CALABRESE Rep #: [id number] : 2000 24 From: Evans Matthews PT, ATC Referring Dr.: LENA Priest Status: REG RCR Insurance: [facility] [employer] SELF PAY INSURANCE Discharge Summary D/C summary: It has been my pleasure to treat MATT CALABRESE referred by LENA Beatty, with the diagnosis of LBP for a total of 25 visit(s). Discharge Date: Please see the following information for a summary of their discharge status. Subjective Subjective: Pt reports she is still limited with prolonged standing and ambulation Pain LBP: Pain Intensity (Out of 10): 5 L knee: Pain Intensity (Out of 10): 2 Overall Improvement % Improvement: 49 Objective Objective/Function: Pt reports she still has occasional L LE radiculopathy with prolonged standing and ambulation Pt reports pain will still awaken her at night, but she is able to sleep longer until the pain occurs Pt is I with HEP Goals Goal 1:: Decrease L LE radiculaopathy x 50% to aid with ambulation Goal Progress: Progressing Goal 2:: Decrease LBP x 50% to aid with sleep Goal Progress: Progressing Goal 3:: Increase L LE strength x 1 grade to aid with stair negotiation Goal Progress: Progressing Goal 4:: I with HEP Goal Progress: Goal Met Plan Plan: Discontinue to HEP D/C Information d/c sentence: If there are questions or concerns regarding this patient's physical therapy, please feel free to call me at [phone]. Thank you for the referral of this patient. Sincerely, Evans Matthews, PT, ATC Balance/Gait/Functional tests Balance/Special Test Scores Oswestry Low Back Score: 18 Improvement % Improvement: 49 12/09/24 1402 CC: LENA Priest [facility] Signed Normal [facility] .Auto Diffon 11-26-2024 Basophil, Absolute 0.0 10 3/mcL Normal 0.0-0.3 [facility] Comment on above: Performed By: #### C BC, FERR, ADIFF, FES, ANEU ####[address] [place], [place] [address] Basophils/100 WBC (Bld) 0.3 % Normal 0.0-2.5 [facility] Comment on above: Performed By: #### C BC, FERR, ADIFF, FES, ANEU ####[address] [place], [place] [address] Eosinophil, Absolute 0.1 10 3/mcL Normal 0.0-0.7 [facility] Comment on above: Performed By: #### C BC, FERR, ADIFF, FES, ANEU ####[address] [place], [place] [address] Eosinophils/100 WBC (Bld) 1.3 % Normal 0.0-6.0 [facility] Comment on above: Performed By: #### C BC, FERR, ADIFF, FES, ANEU ####[address] [place], [place] [address] Lymphocyte, Absolute 2.0 10 3/mcL Normal 0.9-4.3 [facility] Comment on above: Performed By: #### C BC, FERR, ADIFF, FES, ANEU ####[address] [place], [place] [address] Lymphocytes/100 WBC (Bld) 28.7 % Normal 20.0-40.0 [facility] Comment on above: Performed By: #### C BC, FERR, ADIFF, FES, ANEU ####[address] [place], [place] [address] Monocyte, Absolute 0.5 10 3/mcL Normal 0.1-1.4 [facility] Comment on above: Performed By: #### C BC, FERR, ADIFF, FES, ANEU ####[address] [address] Monocytes/100 WBC (Bld) 7.1 % Normal 2.0-13.0 [facility] Comment on above: Performed By: #### C BC, FERR, ADIFF, FES, ANEU ####[place] [address] [address] Neutrophils/100 WBC (Bld) 62.6 % Normal 50.0-75.0 [facility] Comment on above: Performed By: #### C BC, FERR, ADIFF, FES, ANEU ####[place] [address] [address] .NEUABSon 11-26-2024 Neutrophil, Absolute 4.3 10 3/mcL Normal 2.3-8.1 [facility] Comment on above: Performed By: #### C BC, FERR, ADIFF, FES, ANEU ####[address] [address] CBCon 11-26-2024 Erythrocyte distribution width (RBC) [Ratio] 14.2 % Normal 11.5-15.5 [facility] Comment on above: Performed By: #### C BC, FERR, ADIFF, FES, ANEU ####[address] [address] Hematocrit (Bld) [Volume fraction] 37.8 % Normal 34.0-46.0 [facility] Comment on above: Performed By: #### C BC, FERR, ADIFF, FES, ANEU ####[address] [address] Hgb 12.5 G/dL Normal 12.0-16.0 [facility] Comment on above: Performed By: #### C BC, FERR, ADIFF, FES, ANEU ####[address] [address] MCH (RBC) [Entitic mass] 28.3 pg Normal 27.0-33.0 [facility] Comment on above: Performed By: #### C BC, FERR, ADIFF, FES, ANEU ####[address] [address] MCHC 32.9 G/dL Normal 32.0-36.0 [facility] Comment on above: Performed By: #### C BC, FERR, ADIFF, FES, ANEU ####[address] [place], [place] [address] MCV (RBC) [Entitic vol] 85.8 fL Normal 80.0-99.0 [facility] Comment on above: Performed By: #### C BC, FERR, ADIFF, FES, ANEU ####[address] [address] Platelet 274 10 3/mcL Normal 150-450 [facility] Comment on above: Performed By: #### C BC, FERR, ADIFF, FES, ANEU ####Linda [address] [address] Platelet mean volume (Bld) [Entitic vol] 9.0 fL Normal 6.6-10.5 [facility] Comment on above: Performed By: #### C BC, FERR, ADIFF, FES, ANEU ####[address] [address] RBC 4.41 10 6/mcL Normal 4.10-5.30 [facility] Comment on above: Performed By: #### C BC, FERR, ADIFF, FES, ANEU ####[address] [address] WBC 6.9 10 3/mcL Normal 4.5-10.8 [facility] Comment on above: Performed By: #### C BC, FERR, ADIFF, FES, ANEU ####[address]inda [address] [address] Dion 11-26-2024 Ferritin [Mass/Vol] 31.0 ng/mL Normal 8.0-252.0 [facility] Comment on above: Performed By: #### C BC, FERR, ADIFF, FES, ANEU ####[address] [address] FESon 11-26-2024 Iron [Mass/Vol] 32 ug/dL Low 50-170 [facility] Comment on above: Performed By: #### C BC, FERR, ADIFF, FES, ANEU ####[address] [place], [place] [address] Iron Sat 9 % Normal [facility] Comment on above: Performed By: #### C BC, FERR, ADIFF, FES, ANEU ####[address] [place], [place] [address] TIBC 355 mcg/dL Normal 250-450 [facility] Comment on above: Performed By: #### C BC, FERR, ADIFF, FES, ANEU ####[address] [place], [place] [address] Gastroenterology Visit Repor ton 11-26-2024 Gastroenterology Visit Report [facility] [address] [place] [address] OFFICE VISIT Date of Service: 11/26/24 MR#: [id number] Acct: [id number] Name: MATT CALABRESE Rep #: [id number] : 2000 Provider: LENA tate Age/Sex: 24/F Location: [facility] [place] Status: Signed Intake Vital Signs 10/29/24 22:42 11/26/24 08:13 Height 5 ft 3 in 5 ft 3 in Weight: 216 lb 2 oz BMI 38.2 BP 109/75 Respiration 16 Pulse 82 Temp 97.9 F Temp Source Temporal Pulse Oximetry (%) 97 Oxygen Delivery Method room air Intake Visit Reasons: NAUSEA VOMITING EVERY DAY Chief Complaint: follow-up 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 Technical Training Required: No Accompanied by: Self Is patient in pain?: No Allergies amoxicillin Allergy (Verified 11/26/24 08:07) Upset Stomach erythromycin base Allergy (Verified 11/26/24 08:07) Upset Stomach Penicillins (PCN) Allergy (Verified 11/26/24 08:07) Upset Stomach azithromycin (From Zithromax) Adverse Reaction (Intermediate, Verified 11/26/24 08:07) Hives metronidazole (From Flagyl) Adverse Reaction (Intermediate, Verified 11/26/24 08:07) Rash sulfamethoxazole (From Bactrim) Adverse Reaction (Intermediate, Verified 11/26/24 08:07) Rash trimethoprim (From Bactrim) Adverse Reaction (Intermediate, Verified 11/26/24 08:07) Rash trazodone Adverse Reaction (Unknown, Verified 11/26/24 08:07) suicidal ideation Medications ???Medication ???Instructions ???Recorded ???Confirmed ???Type ergocalciferol (vitamin D2) 1,250 1,250 mcg PO QWEEK 06/09/2411/26 History mcg (50,000 unit) capsule ferrous sulfate 325 mg (65 mg 325 mg PO BID 06/09/24 11/26/24 Hi story iron) tablet flax seed oil 1,000 mg PO DAILY 06/09/24 5 History hydroxyzine HCl 25 mg tablet 25 mg PO Q8H PRN anxiety 06/09/24 11/26/24 History magnesium hydroxide 400 mg (170 mg 400 mg PO QD-BID 06/09/24 History magnesium) chewable tablet naltrexone 50 mg tablet 50 mg PO QDAY 06/09/24 11/26/24 Hi story ondansetron HCl 4 mg tablet 4 mg PO Q8H PRN nausea and vomitin g 06/09/24 11/26/24 History pantoprazole 40 mg tablet,delayed 40 mg PO QDAY 06/09/24 11/26/24 H istory release sumatriptan succinate 25 mg tablet See Rx Instructions PO .COMPLEX 06/09/24 11/26/24 History quetiapine 100 mg tablet (Seroquel) 200 mg PO QHS 07/10/24 11/26/24 History lactulose 10 gram/15 mL oral 10 g (15 mL) PO ONCE #15 mL 11/26/24 Rx solution PFSH Medical History Cirrhosis Histoplasmosis Arthritis Low iron Injury of [...] Contusion of left knee Anxiety Surgical History History of hysterectomy Hx of breast reduction, elective Hx of [...] presents to the office today for OV 08/11/2024 24y/o female present for one month follow-up with complaints of abdominal pain. She complains of ongoing nausea and reports a recent admission secondary to hyponatremia and pneumonia. She reports cravings for salt and is taking ondansetron daily for management of nausea. I have scheduled for for ACTH Stim test and she will proceed with colonoscopy as previously ordered. Patient Instructions: 1. Schedule colonoscopy - [facility] 2. ACTH Stim Test LIVER BIOPSY: 09/16/2024 Your liver biopsy does not show any signs of histoplasmosis. However, the biopsy did show some early changes in the liver related to fat buildup. The accumulation of fat in the liver has caused some mild irritation or stress on the liver cells, but no scarring or serious damage at this point. These changes are often linked to factors like weight, blood sugar, or cholesterol, and resolution involves healthy lifestyle changes with a balanced diet, regular activity, and managing any related conditions. As we had previously discussed your serological workup was normal. I rec (more content not included)... Normal [facility] LABORATORYOrdered By: SYSTEM SYSTEM on 11-26-2024 Basophils (Bld) [#/Vol] 0.0 103/mcL Normal 0.0 - 0.3 10^3/mcL AO Workflow SS Basophils/100 WBC (Bld) 0.3 % Normal 0.0 - 2.5 % AO Workflow SS Eosinophil, Absolute 0.1 103/mcL Normal 0.0 - 0 .7 10^3/mcL AO Workflow SS Eosinophils/100 WBC (Bld) 1.3 % Normal 0.0 - 6.0 % AO Workflow SS Erythrocyte distribution width (RBC) [Ratio] 14.2 % Normal 11.5 - 15.5 % AO Workflow SS Ferritin [Mass/Vol] 31.0 ng/mL Normal 8.0 - 25 2.0 ng/mL AO ADM SS Hematocrit (Bld) [Volume fraction] 37.8 % Normal 34.0 - 46.0 % AO Workflow SS Hemoglobin (Bld) [Mass/Vol] 12.5 G/dL Normal 12.0 - 16.0 G/dL AO Workflow SS Iron [Mass/Vol] 32 ug/dL Low 50 - 170 mcg/dL AO ADM SS Iron binding capacity [Mass/Vol] 355 mcg/dL Normal 250 - 450 mcg/dL AO ADM SS Iron Sat 9 % Invalid Interpretation Code AO ADM SS Lymphocytes (Bld) [#/Vol] 2.0 103/mcL Normal 0.9 - 4.3 10^3/mcL AO Workflow SS Lymphocytes/100 WBC (Bld) 28.7 % Normal 20.0 - 40.0 % AO Workflow SS MCH (RBC) [Entitic mass] 28.3 pg Normal 27.0 - 33.0 pg AO Workflow SS MCHC 32.9 G/dL Normal 32.0 - 36.0 G/dL AO Workflow SS MCV (RBC) [Entitic vol] 85.8 fL Normal 80.0 - 99.0 fL AO Workflow SS Monocytes (Bld) [#/Vol] 0.5 103/mcL Normal 0.1 - 1.4 10^3/mcL AO Workflow SS Monocytes/100 WBC (Bld) 7.1 % Normal 2.0 - 13.0 % AO Workflow SS Neutrophils (Bld) [#/Vol] 4.3 103/mcL Normal 2.3 - 8.1 10^3/mcL AO Workflow SS Neutrophils/100 WBC (Bld) 62.6 % Normal 50.0 - 75.0 % AO Workflow SS Platelet mean volume (Bld) [Entitic vol] 9.0 fL Normal 6.6 - 10.5 fL AO Workflow SS Platelets (Bld) [#/Vol] 274 103/mcL Normal 150 - 450 10^3/mcL AO Workflow SS RBC (Bld) [#/Vol] 4.41 106/mcL Normal 4.10 - 5.3 0 10^6/mcL AO Workflow SS WBC (Bld) [#/Vol] 6.9 103/mcL Normal 4.5 - 10.8 10^3/mcL AO Workflow SS Re-Evaluation - PT (1)on Re-Evaluation - PT (1) [facility] [address] [place] [address] / REEVALUATION / MEDICARE RECERTIFICATION PHYSICAL THERAPY MR#: [id number] Acct: [id number] Name: MATT CALABRESE Rep #: [id number] : 2000 24 From: Evans Matthews PT, ATC Referring Dr.: LENA Priest Status:REG RCR Insurance: [facility] PLAN SELF PAY INSURANCE Re-Evaluation Intro: LENA Beatty, It has been my pleasure to treat MATT CALABRESE over the last 23 visits for LBP. Please see the progress note below for an update on the physical therapy plan of care! Subjective Subjective: I have made a lot of improvement Objective Objective/Function: LBP is 3/10 L LE radiculopathy only occurs once per week on average L LE MMT: Knee flexion and extension are 4/5 and painful. All other measurements 5/5 throughout Pt is progressing well toward Rx goals at this time Plan Plan Plan: 11/24/24- Continue to progress core strengthening and L LE strengthening at this time. Balance/Gait/Functional tests Balance/Special Test Scores Oswestry Low [...] negotiation Goal Time Frame: 4-6 Weeks Goal Progress: Progressing Goal 4:: I with HEP Goal Time Frame: 2-4 Weeks Goal Progress: Goal Met Anticipated Interventions Anticipated Interventions Patient/Client Instruction: Educate [...] do not hesitate to contact me at [phone] by phone or if you have questions or concerns regarding this new plan of care! Sincerely, Evans Matthews PT, ATC 11/24/24 1425 CC: LENA Priest [facility] Signed For Medicare only, by signing this I certify the plan of care. ___ Physicians Signature Date Normal [facility] Re-Evaluation - PT (1) [facility] [address] [place] [address] / REEVALUATION / MEDICARE RECERTIFICATION PHYSICAL THERAPY MR#: [id number] Acct: [id number] Name: MATT CALABRESE Rep #: [id number] : 2000 24 From: Evans Matthews PT, ATC Referring Dr.: LENA Priest Status:REG RCR Insurance: [facility] [employer] SELF PAY INSURANCE Re-Evaluation Intro: LENA Beatty, It has been my pleasure to treat MATT CALABRESE over the last 23 visits for LBP. Please see the progress note below for an update on the physical therapy plan of care! Subjective Subjective: I have made a lot of improvement Objective Objective/Function: LBP is 3/10 L LE radiculopathy only occurs once per week on average L LE MMT: Knee flexion and extension are 4/5 and painful. All other measurements 5/5 throughout Pt is progressing well toward Rx goals at this time Plan Plan Plan: 11/24/24- Continue to progress core strengthening and L LE strengthening at this time. Balance/Gait/Functional tests Balance/Special Test Scores Oswestry Low [...] negotiation Goal Time Frame: 4-6 Weeks Goal Progress: Progressing Goal 4:: I with HEP Goal Time Frame: 2-4 Weeks Goal Progress: Goal Met Anticipated Interventions Anticipated Interventions Patient/Client Instruction: Educate [...] do not hesitate to contact me at [phone] by phone or if you have questions or concerns regarding this new plan of care! Sincerely, Evans Matthews, PT, ATC 11/24/24 1418 CC: LENA Priest [facility] Signed For Medicare only, by signing this I certify the plan of care. ___ Physicians Signature Date Normal [facility] Basic Metabolic Profile (BMP )on 11-14-2024 BUN/CRE 19.0 RATIO Normal 10-20 [facility] Comment on above: Performed By: #### L 400.0001 #### [facility] [address] [place], [address] Calcium [Mass/Vol] 9.1 mg/dL Normal 7.6-11.0 [facility] Comment on above: Performed By: #### L 400.0001 #### [facility] [address] [place], [address] Chloride [Moles/Vol] 103 mmol/L Normal 98-108 [facility] Comment on above: Performed By: #### L 400.0001 #### [facility] [address] [place], [address] CO2 [Moles/Vol] 23.7 mmol/L Normal 21.0-32.0 [facility] Comment on above: Performed By: #### L 400.0001 #### [facility] [address] [place], [address] Creatinine [Mass/Vol] 0.71 mg/dL Normal 0.70-1.20 [facility] Comment on above: Performed By: #### L 400.0001 #### [facility] [address] [place], [address] GAP 11 Normal 5-15 [facility] Comment on above: Performed By: #### L 400.0001 #### [facility] [address] [place], [address] GFR/1.73 sq M.predicted among non-blacks MDRD (S/P/Bld) [Vol rate/Area] 122 mL/min/{1.73_m2} Normal >60 [facility] Comment on above: Result Comment: mL/m in/1.73m2 CKD-EPI Creatinine Equation (2020) Performed By: #### L 400.0001 #### [facility] [address] [place], [address] Glucose [Mass/Vol] 100 mg/dL High 70-99 [facility] Comment on above: Performed By: #### L 400.0001 #### [facility] [address] [place], [address] Potassium [Moles/Vol] 3.9 mmol/L Normal 3.3-5.1 [facility] Comment on above: Performed By: #### L 400.0001 #### [facility] [address] [place], [address] Sodium [Moles/Vol] 137 mmol/L Normal 133-145 [facility] Comment on above: Performed By: #### L 400.0001 #### [facility] [address] [place], [address] Urea nitrogen [Mass/Vol] 13 mg/dL Normal 4-19 [facility] Comment on above: Performed By: #### L 400.0001 #### [facility] [address] [place], [address] Basic Metabolic Profile (BMP )on 11-10-2024 BUN/CRE 15.3 RATIO Normal 10-20 [facility] Comment on above: Performed By: #### L 300.3900, L300.4310, L100.0100 #### [facility] [address] [place], [address] Calcium [Mass/Vol] 9.4 mg/dL Normal 7.6-11.0 [facility] Comment on above: Performed By: #### L 300.3900, L300.4310, L100.0100 #### [facility] [address] [place], [address] Chloride [Moles/Vol] 104 mmol/L Normal 98-108 [facility] Comment on above: Performed By: #### L 300.3900, L300.4310, L100.0100 #### [facility] [address] [place], [address] CO2 [Moles/Vol] 24.1 mmol/L Normal 21.0-32.0 [facility] Comment on above: Performed By: #### L 300.3900, L300.4310, L100.0100 #### [facility] [address] [place], [address] Creatinine [Mass/Vol] 0.89 mg/dL Normal 0.70-1.20 [facility] Comment on above: Performed By: #### L 300.3900, L300.4310, L100.0100 #### [facility] [address] [place], [address] GAP 12 Normal 5-15 [facility] Comment on above: Performed By: #### L 300.3900, L300.4310, L100.0100 #### [facility] [address] [place], [address] GFR/1.73 sq M.predicted among non-blacks MDRD (S/P/Bld) [Vol rate/Area] 92 mL/min/{1.73_m2} Normal >60 [facility] Comment on above: Result Comment: mL/m in/1.73m2 CKD-EPI Creatinine Equation (2020) Performed By: #### L 300.3900, L300.4310, L100.0100 #### [facility] [address] [place], [address] Glucose [Mass/Vol] 95 mg/dL Normal 70-99 [facility] Comment on above: Performed By: #### L 300.3900, L300.4310, L100.0100 #### [facility] [address] [place], [address] Potassium [Moles/Vol] 4.5 mmol/L Normal 3.3-5.1 [facility] Comment on above: Performed By: #### L 300.3900, L300.4310, L100.0100 #### [facility] [address] [place], [address] Sodium [Moles/Vol] 140 mmol/L Normal 133-145 [facility] Comment on above: Performed By: #### L 300.3900, L300.4310, L100.0100 #### [facility] [address] [place], [address] Urea nitrogen [Mass/Vol] 14 mg/dL Normal 4-19 [facility] Comment on above: Performed By: #### L 300.3900, L300.4310, L100.0100 #### [facility] [address] [place], [address] Emergency Department Summary on 10-29-2024 Emergency Department Summary [facility] Medical Records Department [address] [place] [address] Emergency Department Summary 10/29/24 MR#: [id number] Acct: [id number] Name: MATT CALABRESE Rep #: [id number] : 2000 From: Sharan Mckeon DO PCP: LENA Beatty Status:DEP ER Location: ED HPI History of Present Illness HPI Narrative: Patient presents with left shoulder injury that occurred tonight. Patient states she backed her mower into her garage and a rake fell from the wall onto her left shoulder. Patient states the rake was louie. Patient describes the pain as aching, burning, and sharp. Patient states pain is worse with movement. Patient is unsure of her last tetanus. Patient does not know if she ever had tetanus immunization in the past. Patient denies any paresthesias or weakness. Patient denies any other injuries. Chief Complaint: Wound Check Occured/Mechanism Mechanism/Context: Yes direct blow Onset/Context/Timing Onset: Today Context: Sudden Onset Timing: Continuous Quality of Pain: Sharp, Aching and Burning Location: Left shoulder Worsened by: Movement Relieved by: Nothing Associated Symptoms Associated Symptoms: Negative for Parasthesia, Weakness or Loss of Funtion Narrative Tetanus Immunization: Unknown [facility] Medical History Cirrhosis Histoplasmosis Arthritis Low iron Injury of [...] flax seed oil 1,000 mg PO DAILY 06/09/24/13/07 5 History hydroxyzine HCl 25 mg tablet 25 mg PO Q8H PRN anxiety 06/09/24 Unknown History magnesium hydroxide 400 mg (170 mg 400 mg PO QD-BID 06/09/24 History magnesium) chewable tablet naltrexone 50 mg tablet 50 mg PO QDAY 06/09/24 Unknown His tory ondansetron HCl 4 mg tablet 4 mg PO Q8H PRN nausea and vomitin g 06/09/24 Unknown History pantoprazole 40 mg tablet,delayed 40 mg PO QDAY 06/09/24 Unknown Hi story release sumatriptan succinate 25 mg tablet See Rx Instructions PO .COMPLEX 06/09/24 Unknown History hydrocortisone 2.5 % topical cream 1 applic VT QD-BID PRN rectal pa in 07/10/24 Unknown Rx with perineal applicator and bleeding #30 grams (Anusol-HC) quetiapine 100 mg tablet (Seroquel) 200 mg PO QHS 07/10/24 Unknown History peg 3350-electrolytes 236 240 ml PO Q10M #4,000 mL 08/11/24 Unknown Rx gram-22.74 gram-6.74 gram-5.86 gram solution (Golytely) gabapentin 300 mg capsule 300 mg PO DAILY 10/29/24 Unknown H istory Allergy/AdvReac Type Severity Reaction Status Date / Time amoxicillin Allergy Upset Verified 10/29/24 22:42 Stomach erythromycin base Allergy Upset Verified 10/29/24 22:42 Stomach Penicillins (PCN) Allergy Upset Verified 10/29/24 22:42 Stomach azithromycin (From Zithromax) AdvReac Intermediate Hives Verified 10/29/24 22:42 metronidazole (From Flagyl) AdvReac Intermediate Rash Verified 10/29/24 22:42 sulfamethoxazole (From AdvReac Intermediate Rash Verified 10/29/24 22:42 Bactrim) trimethoprim (From Bactrim) AdvReac Intermediate Rash Verified 10/29/24 22:42 trazodone AdvReac Unknown suicidal Verified 10/29/24 22:42 ideation Family History Mother Alcohol abuse Breast cancer Hypertension Muscle weakness Substance abuse Father Alcohol abuse Hypertension Grandmother Breast cancer Cancer Sister Hypertension Surgical History History of hysterectomy Hx of breast reduction, elective Hx of cholecystectomy Social History sexually active: No Smoking Status: Never smoker alcohol intake: never substance use type: does not use ROS ROS ED Constitutional Constitutional ED: Denies chills or fever(s) Eyes Eyes: Denies blurry vision or change in vision ENT ENT ED: Denies rhinorrhea or sore throat Cardiovascular Cardiovascular: Denies chest pain or palpitations Respiratory/Chest Respiratory/Chest: Denies cough or dyspnea Gastrointestinal Gastrointestinal: Denies nausea (more content not included)... Normal [facility] Re-Evaluation - PT (1)on Re-Evaluation - PT (1) [facility] Physical Therapy [facility] [address] [place] [address]. [address] [place] [address] / REEVALUATION / MEDICARE RECERTIFICATION PHYSICAL THERAPY MR#: [id number] Acct: [id number] Name: MATT CALABRESE Rep #: [id number] : 2000 24 From: Evans Matthews PT, ATC Referring Dr.: LENA Priest Status:REG RCR Insurance: [facility] SELF PAY INSURANCE Re-Evaluation Intro: LENA Beatty, It has been my pleasure to treat [...] do not hesitate to contact me at [phone] by phone or if you have questions or concerns regarding this new plan of care! Sincerely, Evans Matthews, PT, ATC 10/10/24 1422 CC: LENA Priest [facility] Signed For Medicare only, by signing this I certify the plan of care. ___ Physicians Signature Date Normal [facility] CRP SerPl-mCncon 10-09-2024 CRP [Mass/Vol] 0.7 mg/dL Normal <0.9 [facility] Comment on above: Order Comment: Speci men Type: BLOOD SPECIMENOrdering Facility: [facility] Address: [address] [place] [address] Performed By: #### 1 507-5 ####[facility] LABCLIA [id number] [place] [address] [place] Comprehensive metabolic 2000 panelon 10-09-2024 Albumin [Mass/Vol] 4.1 g/dL Normal 3.9-4.9 [facility] Comment on above: Order Comment: Speci men Type: BLOOD SPECIMENOrdering Facility: [facility] Address: [address] [place] [address] Performed By: #### 2 4323-8 ####[facility] MILLWNCLIA [id number] [place] [address] [place] ALP [Catalytic activity/Vol] 73 U/L Normal 34-123 [facility] Comment on above: Order Comment: Speci men Type: BLOOD SPECIMENOrdering Facility: [facility] Address: [address] [place] [address] Performed By: #### 2 4323-8 ####[facility] HOSPITALWAKLIA [id number] [place] [address] [place] ALT [Catalytic activity/Vol] 11 U/L Normal 7-38 [facility] Comment on above: Order Comment: Speci men Type: BLOOD SPECIMENOrdering Facility: [facility] Address: [address] [place] [address] Performed By: #### 2 4323-8 ####[facility] HOSPITALWNCLIA [id number] [place] [address] [place] Anion gap [Moles/Vol] 13 mmol/L Normal 8-15 [facility] Comment on above: Order Comment: Speci men Type: BLOOD SPECIMENOrdering Facility: [facility] Address: [address] [place] [address] Performed By: #### 2 4323-8 ####[facility]ITALTOWNCLIA [id number] [place] [address] [place] AST [Catalytic activity/Vol] 13 U/L Normal 13-35 [facility] Comment on above: Order Comment: Speci men Type: BLOOD SPECIMENOrdering Facility: [facility] Address: [address] [place] [address] Performed By: #### 2 4323-8 ####[facility] [id number] [place] [address] [place] Bilirubin [Mass/Vol] mg/dL Low 0.2-1.3 [facility] Comment on above: Order Comment: Speci men Type: BLOOD SPECIMENOrdering Facility: [facility] Address: [address] [place] [address] Performed By: #### 2 4323-8 ####[facility] [id number] [place] [address] [place] Calcium [Mass/Vol] 9.4 mg/dL Normal 8.5-10.2 [facility] Comment on above: Order Comment: Speci men Type: BLOOD SPECIMENOrdering Facility: [facility] Address: [address] [place] [address] Performed By: #### 2 4323-8 ####[facility] [id number] [place] [address] [place] Chloride [Moles/Vol] 105 mmol/L Normal 98-107 [facility] Comment on above: Order Comment: Speci men Type: BLOOD SPECIMENOrdering Facility: [facility] Address: [address] [place] [address] Performed By: #### 2 4323-8 ####[facility] [id number] [place] [address] [place] CO2 [Moles/Vol] 22 mmol/L Normal 22-30 [facility] Comment on above: Order Comment: Speci men Type: BLOOD SPECIMENOrdering Facility: [facility] Address: [address] [place] [address] Performed By: #### 2 4323-8 ####[facility] GEOFRFEYWNCLIA [id number] [place] [address] [place] Creatinine [Mass/Vol] 0.65 mg/dL Normal 0.58-0.96 [facility] Comment on above: Order Comment: Speci men Type: BLOOD SPECIMENOrdering Facility: [facility] Address: [address] [place] [address] Performed By: #### 2 4323-8 ####[facility] OF MIAMINCLIA [id number] [place] [address] [place] Creatinine and Glomerular filtration rate.predicted panel (S/P/Bld) 125 mL/min/1.73m??? Normal >=60 [facility] Comment on above: Order Comment: Ronnie alonzo Type: BLOOD SPECIMENOrdering Facility: [facility] Address: [address] [place] [address] Result Comment: Edwige mated Glomerular Filtration Rate [...] actual GFR. Performed By: #### 2 4323-8 ####[facility] OF MIAMINCLIA [id number] [place] [address] [place] Glucose [Mass/Vol] 97 mg/dL Normal 74-99 [facility] Comment on above: Order Comment: Colettei men Type: BLOOD SPECIMENOrdering Facility: [facility] Address: [address] [place] [address] Result Comment: The [place] Diabetes Association (ADA) provides guidance for cutoff [...] Standards of Medical Care in Diabetes 2016, [place] [employer] Association. Diabetes Care. 2016.39(Suppl 1). Performed By: #### 2 4323-8 ####[facility] MILLTOWNCLIA [id number] [place] [address] [place] Potassium [Moles/Vol] 3.8 mmol/L Normal 3.7-5.1 [facility] Comment on above: Order Comment: Ronnie alonzo Type: BLOOD SPECIMENOrdering Facility: [facility] Address: [address] [place] [address] Performed By: #### 2 4323-8 ####[facility] HOSPITALWNCLIA [id number] [place] [address] [place] Protein [Mass/Vol] 7.2 g/dL Normal 6.3-8.0 [facility] Comment on above: Order Comment: Ronnie alonzo Type: BLOOD SPECIMENOrdering Facility: [facility] Address: [address] [place] [address] Performed By: #### 2 4323-8 ####[facility] HOSPITALWAKLIA [id number] [place] [address] [place] Sodium [Moles/Vol] 140 mmol/L Normal 136-144 [facility] Comment on above: Order Comment: Colettei men Type: BLOOD SPECIMENOrdering Facility: [facility] Address: [address] [place] [address] Performed By: #### 2 4323-8 ####[facility] HOSPITALWNCLIA [id number] [place] [address] [place] Urea nitrogen [Mass/Vol] 14 mg/dL Normal 7-21 [facility] Comment on above: Order Comment: Speci men Type: BLOOD SPECIMENOrdering Facility: [facility] Address: [address] [place] [address] Performed By: #### 2 4323-8 ####[facility] [id number] [place] [address] [place] ESR Westergren method (Bld) [Velocity]on 10-09-2024 ESR (Bld) [Velocity] 30 mm/h High 0-20 [facility] Comment on above: Order Comment: Speci men Type: BLOOD SPECIMENOrdering Facility: [facility] Address: [address] [place] [address] Performed By: #### 4 537-7 ####[facility] LABCLIA [id number] [address] [place] HISTOPLASMA AB CFon 10-10-19 25 HISTOPLASMA MYCELIA, CF <1:8 Normal <1:8 [facility] Comment on above: Order Comment: Speci men Type: BLOOD SPECIMENOrdering Facility: [facility] Address: [address] [place] [address] Result Comment: INTE RPRETIVE INFORMATION: Histoplasma Mycelia Antibodies by DIETETIC ASSISTANT titer of 1:8 or greater is generally considered presumptiveevidence of histoplasmosis. A titer of 1:32 or greater or risingtiters indicate strong presumptive evidence of histoplasmosis.Cross reactions, usually at lower titers, may occur with otherfungal diseases. Performed By: #### H ISTCF ####[facility]IESCLIA [id number] [place] [address] HISTOPLASMA YEAST, CF <1:8 Normal <1:8 [facility] Comment on above: Order Comment: Speci men Type: BLOOD SPECIMENOrdering Facility: [facility] Address: [address] [place] [address] Result Comment: INTE RPRETIVE INFORMATION: Histoplasma Yeast Antibodies by DIETETIC ASSISTANT titer of 1:8 or greater is generally considered presumptiveevidence of histoplasmosis. A titer of 1:32 or greater or risingtiters indicate strong presumptive evidence of histoplasmosis.Cross reactions, usually at lower titers, may occur with otherfungal diseases.Performed By: [facility] [place], [place] [id number] Director: Orlando Amaya MD, PhDCLIA Number: [id number] Performed By: #### H ISTCF ####[facility] LABORATORIESCLIA [id number] [place] [address] ITRACONAZOLE BLOODon 025 HYDROXYITRACONAZOLE <0.2 Normal [facility] Comment on above: Order Comment: Speci men Type: BLOOD SPECIMENOrdering Facility: [facility] Address: [address] [place] [address] Result Comment: Rang es are based on [...] of Aspergillosis and Candidiasis and consultation from [facility]'s Department of Infectious Disease.Reference ranges and high/low indicator flags are provided as general guidelines only. The treating physician must determine appropriate target levels/dosing based on the specific clinical situation.This test was developed, and its performance characteristics determined by the [facility] Department of Pathology and Laboratory Medicine. It has not been cleared or approved by the FDA. The [facility] Department of Pathology and Laboratory Medicine is regulated under CLIA as qualified to perform high-complexity testing. This test is used for clinical purposes. It should not be regarded as investigational or for research. Performed By: #### I TRAC ####[facility] LABCLIA [id number] [place] [address] [place] ITRACONAZOLE BLD <0.2 Low 0.6-2.9 [facility] Comment on above: Order Comment: Speci men Type: BLOOD SPECIMENOrdering Facility: [facility] Address: [address] [place] [address] Performed By: #### I TRAC ####[facility] LABCLIA [id number] [place] [address] [place] CNPNon 09-23-2024 CNPN Normal [facility] Basic metabolic 2000 panelOr dered By: Kristi Encarnacion on 09-16-2024 Anion gap [Moles/Vol] 9 mmol/L 8 - 15 mmol/L [facility] Calcium [Mass/Vol] 9.4 mg/dL 8.5 - 10. 2 mg/dL [facility] Chloride [Moles/Vol] 102 mmol/L 98 - 10 7 mmol/L [facility] CO2 [Moles/Vol] 27 mmol/L 22 - 30 mmol/L [facility] Creatinine [Mass/Vol] 0.75 mg/dL 0.58 - 0.96 mg/dL [facility] GFR/1.73 sq M.predicted among non-blacks MDRD (S/P/Bld) [Vol rate/Area] 113 mL/min/{1.73_m2} - PINF [facility] Comment on above: Estimated Glomerular Filtration Rate [...] 112 mg/dL High 74 - 99 mg/dL [facility] Comment on above: The [place] Diabete s Association (ADA) provides guidance for [...] Standards of Medical Care in Diabetes 2016, [place] [employer]. Diabetes Care. 2016.39(Suppl 1). Interpretation and review of laboratory results Abnormal [facility] Potassium [Moles/Vol] 4.1 mmol/L 3.7 - 5.1 mmol/L [facility] Sodium [Moles/Vol] 138 mmol/L 136 - 144 mmol/L [facility] Urea nitrogen [Mass/Vol] 14 mg/dL 7 - 21 mg/dL [facility] Basic metabolic 2000 panelon 09-16-2024 Anion gap [Moles/Vol] 9 mmol/L Normal 8-15 [facility] Comment on above: Order Comment: Speci men Type: BLOOD SPECIMENOrdering Facility: [facility] Address: [address] [place] [address] Performed By: #### 2 4321-2 ####[facility] [id number] [place] [address] [place] Calcium [Mass/Vol] 9.4 mg/dL Normal 8.5-10.2 [facility] Comment on above: Order Comment: Speci men Type: BLOOD SPECIMENOrdering Facility: [facility] Address: [address] [place] [address] Performed By: #### 2 4321-2 ####[facility] [id number] [place] [address] [place] Chloride [Moles/Vol] 102 mmol/L Normal 98-107 [facility] Comment on above: Order Comment: Speci men Type: BLOOD SPECIMENOrdering Facility: [facility] Address: [address] [place] [address] Performed By: #### 2 4321-2 ####[facility] [id number] [place] [address] [place] CO2 [Moles/Vol] 27 mmol/L Normal 22-30 [facility] Comment on above: Order Comment: Speci men Type: BLOOD SPECIMENOrdering Facility: [facility] Address: [address] [place] [address] Performed By: #### 2 4321-2 ####[facility] [id number] [place] [address] [place] Creatinine [Mass/Vol] 0.75 mg/dL Normal 0.58-0.96 [facility] Comment on above: Order Comment: Speci men Type: BLOOD SPECIMENOrdering Facility: [facility] Address: [address] [place] [address] Performed By: #### 2 4321-2 ####[facility] [id number] [place] [address] [place] Creatinine and Glomerular filtration rate.predicted panel (S/P/Bld) 113 mL/min/1.73m??? Normal >=60 [facility] Comment on above: Order Comment: Speci men Type: BLOOD SPECIMENOrdering Facility: [facility] Address: [address] [place] [address] Result Comment: Edwige mated Glomerular Filtration Rate [...] actual GFR. Performed By: #### 2 4321-2 ####[facility] [id number] [place] [address] [place] Glucose [Mass/Vol] 112 mg/dL High 74-99 [facility] Comment on above: Order Comment: Speci men Type: BLOOD SPECIMENOrdering Facility: [facility] Address: [address] [place] [address] Result Comment: The [place] Diabetes Association (ADA) provides guidance for cutoff [...] Standards of Medical Care in Diabetes 2016, [place] Diabetes Association. Diabetes Care. 2016.39(Suppl 1). Performed By: #### 2 4321-2 ####[facility] MILLTOWNCLIA [id number] [place] [address] [place] Potassium [Moles/Vol] 4.1 mmol/L Normal 3.7-5.1 [facility] Comment on above: Order Comment: Speci men Type: BLOOD SPECIMENOrdering Facility: [facility] Address: [address] [place] [address] Performed By: #### 2 4321-2 ####[facility]ITALL[facility] [id number] [place] [address] [place] Sodium [Moles/Vol] 138 mmol/L Normal 136-144 [facility] Comment on above: Order Comment: Colettei cheri Type: BLOOD SPECIMENOrdering Facility: [facility] Address: [address] [place] [address] Performed By: #### 2 4321-2 ####[facility] HOSPITALWNCLIA [id number] [place] [address] [place] Urea nitrogen [Mass/Vol] 14 mg/dL Normal 7-21 [facility] Comment on above: Order Comment: Colettei men Type: BLOOD SPECIMENOrdering Facility: [facility] Address: [address] [place] [address] Performed By: #### 2 4321-2 ####[facility] HOSPITALWNCLIA [id number] [place] [address] [place] C peptide SerPl-mCncon 09-16 C peptide [Mass/Vol] 3.5 ng/mL Normal 1.1-4.4 [facility] Comment on above: Order Comment: Speci men Type: BLOOD SPECIMENOrdering Facility: [facility] Address: [address] [place] [address] Performed By: #### 1 986-9 ####[facility] LABIA [id number] [place] [address] [place] CNNURSEon 09-16-2024 CNNURSE Normal [facility] GAD65 Ab Ser-aCncon 09-17-19 25 Glutamate decarboxylase 65 Ab Qn (S) <5.0 Normal <=5.0 [facility] Comment on above: Order Comment: Speci men Type: BLOOD SPECIMENOrdering Facility: [facility] Address: [address] [place] [address] Result Comment: Anti -glutamic acid decarboxylase antibody [...] is required. Performed By: #### 1 3926-1 ####[facility] H[facility]PITALIA [id number] [place] [address] [place] Glutamate decarboxylase 65 A b Qn (S)on 09-16-2024 GLUTAMIC ACID DECARBOXYLAS AB QUALITATIVE Negative Normal Negative [facility] Comment on above: Order Comment: Speci men Type: BLOOD SPECIMENOrdering Facility: [facility] Address: [address] [place] [address] Performed By: #### 1 3926-1 ####[facility] LABIA [id number] [place] [address] [place] INSULINOMA ASSOCIATED ANTIBO DY 2on 09-16-2024 IA 2 ANTIBODY BLOOD <5.4 Normal <7.5 [facility] Comment on above: Order Comment: Speci men Type: BLOOD SPECIMENOrdering Facility: [facility] Address: [address] [place] [address] Result Comment: Anti -insulinoma associated antigen 2 (IA-2) antibody test is used as an aid in diagnosis of type I diabetes mellitus, to predict the risk of progression to type I diabetes mellitus among susceptible individuals, and to predict the necessity of insulin therapy in adult-onset diabetes mellitus. Clinical correlation is required. Performed By: #### I A2AB ####[facility] LABCLIA [id number] ZINC TRANSPORTER 8 ANTIBODYo n 09-16-2024 ZINC TRANSPORTER 8 ANTIBODY 13.4 U/mL Normal 0.0-15.0 [facility] Comment on above: Order Comment: Speci men Type: BLOOD SPECIMENOrdering Facility: [facility] Address: [address] [place] [address] Result Comment: INTE RPRETIVE INFORMATION: Zinc Transporter 8 AntibodyA value greater than 15.0 Kronus Units/mL is considered positivefor the Zinc Transporter 8 Antibody (ZnT8). Kronus Units arearbitrary. Kronus Units = U/mL. This assay is intended for thesemi-quantitative determination of antibodies to ZnT8 in humanserum. Results should be interpreted within the context ofclinical symptoms.Performed By: [facility] [place] [id number] Director: Orlando Amaya MD, PhDCLIA Number: [id number] Performed By: #### Z NT8AB ####[facility] LABORATORIESIA [id number] [place] [address] CNOVon 09-15-2024 CNOV Normal [facility] MR/PAT.ANEon 09-15-2024 MR/PAT.ANE [facility] Medical Records Department [address] [place] [address] PAT - Anesthesia 09/15/24 1534 MR#: [id number] Acct: [id number] Name: MATT CALABRESE Rep #: [id number] : 2000 From: Rodrick Gallardo MD PCP: NAWAF BeattyC Status:PRE SDC Y Race: C Location: EN Pre-Assessment Diagnosis/Proposed Procedure Planned Operative Procedure(s): COLONOSCOPY Anesthesia History 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: 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 Hx Hospitalization Yes: 08/12 LINDA MOREIRA 09/15/24 13:30 FOR LUNG/HISTOPLASMOSIS Any Problems With [...] take am of surgery PONV PONV - 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: PONV - 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 Female Yes 09/15/24 13:30 HX of Motion [...] 08/15/24 09:13 Respiratory Assessment Respiratory Assessment - 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: Respiratory Tract Infection Hx - 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 Hx Respiratory Tract Infection No 09/15/24 13:30 STOP Sleep Apnea STOP Sleep Apnea - 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: STOP Sleep Apnea - 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 Hx Hypertension No 09/15/24 13:30 Hx Sleep [...] Tobacco Use History Tobacco Use History - 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: Tobacco Use History - 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 Tobacco Use Smoking Status Never smoker 09/15/24 13:30 Hx Tobacco Use No 09/15/24 13:30 Years Smoking Packs Smoked per Day Smoking Cessation Date was within the last 15 years Hx Smoking Cessation Date Hx Smoking Cessation Counseling Hematologic Medial History Hematologic Hx - 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: 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 Specify any problems Hx of Preganancy in last 3 No 09/15/24 13:30 Months Nurse Filling [facility] 13[facility]30 Questions: Date: 09/15/24 09/15/24 13:30 Time: 13:44 09/15/24 13:30 Patient unable to answer at this time (ie. confused, unrespo /Reproduction History /Reproductive History - 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: /Reproductive Hx- 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 Hx Now No 09/15/24 13:30 Gestational Age (in weeks): EDC: Hx Hx Para Hx Section SAB No 09/15/24 13:30 [facility] Medical History (Updated 09/15/24 @ 15:05 by [...] mg tablet (more content not included)... Normal [facility] LABORATORYOrdered By: Cyrus Ballard on 09-10-2024 Cholesterol [...] 09-10-2024 Cholesterol [Mass/Vol] 183 mg/dL Normal 0-200 [facility] Comment on above: Result Comment: Chol esterol Reference Interval: Less than 200 Desirable 200-239 Borderline high risk 240 and above High risk Performed By: #### Puneet BILLINGSLEY, BMP #### [address] [address] Cholesterol in HDL [Mass/Vol] 65 mg/dL High 40-60 [facility] Comment on above: Performed By: #### Puneet BILLINGSLEY, BMP #### [address] [address] Cholesterol in LDL [Mass/Vol] 85 mg/dL Normal 0-130 [facility] Comment on above: Performed By: #### G , BMP #### [address] [address] Triglyceride [Mass/Vol] 167 mg/dL High 0-150 [facility] Comment on above: Result Comment: Trig lyceride Reference Interval: Less than 150 Normal 150-199 Borderline high risk 200-499 High risk 500 or higher Very high risk Performed By: #### G FR, BMP #### [facility] [address] [place], [place] [address] CBC W Auto Differential pane l (Bld)on 09-02-2024 Basophils (Bld) [#/Vol] 10*3/uL Normal <0.11 [facility] Comment on above: Order Comment: Speci men Type: BLOOD SPECIMENOrdering Facility: [facility] Address: [address] [place] [address] Performed By: #### 5 7021-8 ####[facility] MILLWAKLIA [id number] [place] [address] [place] Basophils/100 WBC (Bld) 0.3 % Normal [facility] Comment on above: Order Comment: Speci men Type: BLOOD SPECIMENOrdering Facility: [facility] Address: [address] [place] [address] Performed By: #### 5 7021-8 ####[facility] [id number] [place] [address] [place] Differential cell count method Nom (Bld) Auto Normal [facility] Comment on above: Order Comment: Speci men Type: BLOOD SPECIMENOrdering Facility: [facility] Address: [address] [place] [address] Performed By: #### 5 7021-8 ####[facility]IT[facility] [id number] [place] [address] [place] Eosinophils (Bld) [#/Vol] 0.09 10*3/uL Normal <0.46 [facility] Comment on above: Order Comment: Speci men Type: BLOOD SPECIMENOrdering Facility: [facility] Address: [address] [place] [address] Performed By: #### 5 7021-8 ####[facility] MIAMINCLIA [id number] [place] [address] [place] Eosinophils/100 WBC (Bld) 1.4 % Normal [facility] Comment on above: Order Comment: Speci men Type: BLOOD SPECIMENOrdering Facility: [facility] Address: [address] [place] [address] Performed By: #### 5 7021-8 ####[facility] GEOFFREYAlejandroNCARJUNA [id number] [place] [address] [place] Erythrocyte distribution width (RBC) [Ratio] 13.5 % Normal 11.5-15.0 [facility] Comment on above: Order Comment: Speci men Type: BLOOD SPECIMENOrdering Facility: [facility] Address: [address] [place] [address] Performed By: #### 5 7021-8 ####[facility] MIAMINCLIA [id number] [place] [address] [place] Hematocrit (Bld) [Volume fraction] 34.3 % Low 36.0-46.0 [facility] Comment on above: Order Comment: Speci men Type: BLOOD SPECIMENOrdering Facility: [facility] Address: [address] [place] [address] Performed By: #### 5 7021-8 ####[facility] MIAMINCLIA [id number] [place] [address] [place] Hemoglobin (Bld) [Mass/Vol] 11.3 g/dL Low 11.5-15.5 [facility] Comment on above: Order Comment: Speci men Type: BLOOD SPECIMENOrdering Facility: [facility] Address: [address] [place] [address] Performed By: #### 5 7021-8 ####[facility] MIAMINCLIA [id number] [place] [address] [place] Immature granulocytes (Bld) [#/Vol] 10*3/uL Normal <0.10 [facility] Comment on above: Order Comment: Speci men Type: BLOOD SPECIMENOrdering Facility: [facility] Address: [address] [place] [address] Performed By: #### 5 7021-8 ####[facility] GEOFFREYSIOUX CITYMARIA ALEJANDRALIA [id number] [place] [address] [place] [facility] Immature granulocytes/100 WBC (Bld) 0.3 % Normal [facility] Comment on above: Order Comment: Speci men Type: BLOOD SPECIMENOrdering Facility: [facility] Address: [address] [place] [address] Performed By: #### 5 7021-8 ####[facility] MIAMINCLIA [id number] [place] [address] [place] Lymphocytes (Bld) [#/Vol] 1.72 10*3/uL Normal 1.00-4.00 [facility] Comment on above: Order Comment: Speci men Type: BLOOD SPECIMENOrdering Facility: [facility] Address: [address] [place] [address] Performed By: #### 5 7021-8 ####[facility] [id number] [place] [address] [place] Lymphocytes/100 WBC (Bld) 26.9 % Normal [facility] Comment on above: Order Comment: Speci men Type: BLOOD SPECIMENOrdering Facility: [facility] Address: [address] [place] [address] Performed By: #### 5 7021-8 ####[facility]PITALLIA [id number] [place] [address] [place] MCH (RBC) [Entitic mass] 28.5 pg Normal 26.0-34.0 [facility] Comment on above: Order Comment: Speci men Type: BLOOD SPECIMENOrdering Facility: [facility] Address: [address] [place] [address] Performed By: #### 5 7021-8 ####[facility] [id number] [place] [address] [place] MCHC (RBC) [Mass/Vol] 32.9 g/dL Normal 30.5-36.0 [facility] Comment on above: Order Comment: Speci men Type: BLOOD SPECIMENOrdering Facility: [facility] Address: [address] [place] [address] Performed By: #### 5 7021-8 ####[facility] GEOFFREYSIOUX CITYNCLIA [id number] [place] [address] [place] MCV (RBC) [Entitic vol] 86.4 fL Normal 80.0-100.0 [facility] Comment on above: Order Comment: Speci men Type: BLOOD SPECIMENOrdering Facility: [facility] Address: [address] [place] [address] Performed By: #### 5 7021-8 ####[facility] MIAMINCLIA [id number] [place] [address] [place] Monocytes (Bld) [#/Vol] 0.38 10*3/uL Normal <0.87 [facility] Comment on above: Order Comment: Speci men Type: BLOOD SPECIMENOrdering Facility: [facility] Address: [address] [place] [address] Performed By: #### 5 7021-8 ####[facility] MIAMINCLIA [id number] [place] [address] [place] Monocytes/100 WBC (Bld) 5.9 % Normal [facility] Comment on above: Order Comment: Speci men Type: BLOOD SPECIMENOrdering Facility: [facility] Address: [address] [place] [address] Performed By: #### 5 7021-8 ####[facility] MIAMINCLIA [id number] [place] [address] [place] Neutrophils (Bld) [#/Vol] 4.16 10*3/uL Normal 1.45-7.50 [facility] Comment on above: Order Comment: Speci men Type: BLOOD SPECIMENOrdering Facility: [facility] Address: [address] [place] [address] Performed By: #### 5 7021-8 ####[facility] GEOFFREYAlejandroNCTAYLER [id number] [place] [address] [place] Neutrophils/100 WBC (Bld) 65.2 % Normal [facility] Comment on above: Order Comment: Speci men Type: BLOOD SPECIMENOrdering Facility: [facility] Address: [address] [place] [address] Performed By: #### 5 7021-8 ####[facility]AMINCUNIVERSITY [facility] [id number] [place] [address] [place] Nucleated RBC (Bld) [#/Vol] 10*3/uL Normal <0.01 [facility] Comment on above: Order Comment: Speci men Type: BLOOD SPECIMENOrdering Facility: [facility] Address: [address] [place] [address] Performed By: #### 5 7021-8 ####[facility] MIAMINCA [id number] [place] [address] [place] Nucleated RBC/100 WBC (Bld) [Ratio] 0.0 /100 WBC Normal [facility] Comment on above: Order Comment: Speci men Type: BLOOD SPECIMENOrdering Facility: [facility] Address: [address] [place] [address] Performed By: #### 5 7021-8 ####[facility] MIAMINCLIA [id number] [place] [address] [place] Platelet mean volume (Bld) [Entitic vol] 9.5 fL Normal 9.0-12.7 [facility] Comment on above: Order Comment: Speci men Type: BLOOD SPECIMENOrdering Facility: [facility] Address: [address] [place] [address] Performed By: #### 5 7021-8 ####[facility] GEOFFREYAlejandroNCLIA [id number] [place] [address] [place] Platelets (Bld) [#/Vol] 300 10*3/uL Normal 150-400 [facility] Comment on above: Order Comment: Speci men Type: BLOOD SPECIMENOrdering Facility: [facility] Address: [address] [place] [address] Performed By: #### 5 7021-8 ####[facility] MIAMINCLIA [id number] [place] [address] [place] RBC (Bld) [#/Vol] 3.97 10*6/uL Normal 3.90-5.20 [facility] Comment on above: Order Comment: Speci men Type: BLOOD SPECIMENOrdering Facility: [facility] Address: [address] [place] [address] Performed By: #### 5 7021-8 ####[facility] MIAMINCLIA [id number] [place] [address] [place] WBC (Bld) [#/Vol] 6.39 10*3/uL Normal 3.70-11.00 [facility] Comment on above: Order Comment: Speci men Type: BLOOD SPECIMENOrdering Facility: [facility] Address: [address] [place], [place] [address] Performed By: #### 5 7021-8 ####[facility] MIAMINCLIA [id number] [place] [address] [place] [facility] Comprehensive metabolic 2000 panelon 09-02-2024 Albumin [Mass/Vol] 4.1 g/dL Normal 3.9-4.9 [facility] Comment on above: Order Comment: Speci men Type: BLOOD SPECIMENOrdering Facility: [facility] Address: [address] [place] [address] Performed By: #### 2 4323-8 ####[facility] MILLTOWNCLIA [id number] [place] [address] [place] ALP [Catalytic activity/Vol] 80 U/L Normal 34-123 [facility] Comment on above: Order Comment: Speci men Type: BLOOD SPECIMENOrdering Facility: [facility] Address: [address] [place] [address] Performed By: #### 2 4323-8 ####[facility] MILLTOWNCLIA [id number] [place] [address] [place] ALT [Catalytic activity/Vol] 15 U/L Normal 7-38 [facility] Comment on above: Order Comment: Speci men Type: BLOOD SPECIMENOrdering Facility: [facility] Address: [address] [place] [address] Performed By: #### 2 4323-8 ####[facility] HOSPITALWNCLIA [id number] [place] [address] [place] Anion gap [Moles/Vol] 9 mmol/L Normal 8-15 [facility] Comment on above: Order Comment: Speci men Type: BLOOD SPECIMENOrdering Facility: [facility] Address: [address] [place] [address] Performed By: #### 2 4323-8 ####[facility] MILLWNCLIA [id number] [place] [address] [place] AST [Catalytic activity/Vol] 16 U/L Normal 13-35 [facility] Comment on above: Order Comment: Speci men Type: BLOOD SPECIMENOrdering Facility: [facility] Address: [address] [place] [address] Performed By: #### 2 4323-8 ####[facility] MILLTOWNCLIA [id number] [place] [address] [place] Bilirubin [Mass/Vol] mg/dL Low 0.2-1.3 [facility] Comment on above: Order Comment: Speci men Type: BLOOD SPECIMENOrdering Facility: [facility] Address: [address] [place] [address] Performed By: #### 2 4323-8 ####[facility] MOLLYNCLIA [id number] [place] [address] [place] Calcium [Mass/Vol] 9.3 mg/dL Normal 8.5-10.2 [facility] Comment on above: Order Comment: Speci men Type: BLOOD SPECIMENOrdering Facility: [facility] Address: [address] [place] [address] Performed By: #### 2 4323-8 ####[facility] MIAMINCLIA [id number] [place] [address] [place] Chloride [Moles/Vol] 104 mmol/L Normal 98-107 [facility] Comment on above: Order Comment: Speci men Type: BLOOD SPECIMENOrdering Facility: [facility] Address: [address] [place] [address] Performed By: #### 2 4323-8 ####[facility] MIAMINCLIA [id number] [place] [address] [place] CO2 [Moles/Vol] 25 mmol/L Normal 22-30 [facility] Comment on above: Order Comment: Speci men Type: BLOOD SPECIMENOrdering Facility: [facility] Address: [address] [place] [address] Performed By: #### 2 4323-8 ####[facility] MIAMINCLIA [id number] [place] [address] [place] Creatinine [Mass/Vol] 0.62 mg/dL Normal 0.58-0.96 [facility] Comment on above: Order Comment: Speci men Type: BLOOD SPECIMENOrdering Facility: [facility] Address: [address] [place] [address] Performed By: #### 2 4323-8 ####[facility] HOSPITALWNCLI [id number] [place] [address] [place] Creatinine and Glomerular filtration rate.predicted panel (S/P/Bld) 127 mL/min/1.73m??? Normal >=60 [facility] Comment on above: Order Comment: Ronnie alonzo Type: BLOOD SPECIMENOrdering Facility: [facility] Address: [address] [place] [address] Result Comment: Edwige mated Glomerular Filtration Rate [...] actual GFR. Performed By: #### 2 4323-8 ####[facility] [id number] [place] [address] [place] Glucose [Mass/Vol] 113 mg/dL High 74-99 [facility] Comment on above: Order Comment: Ronnie alonzo Type: BLOOD SPECIMENOrdering Facility: [facility] Address: [address] [place] [address] Result Comment: The [place] [employer] (ADA) provides guidance for cutoff [...] Standards of Medical Care in Diabetes 2016, [place] [employer]. Diabetes Care. 2016.39(Suppl 1). Performed By: #### 2 4323-8 ####[facility] MIAMINCLIA [id number] [place] [address] [place] Potassium [Moles/Vol] 4.1 mmol/L Normal 3.7-5.1 [facility] Comment on above: Order Comment: Speci men Type: BLOOD SPECIMENOrdering Facility: [facility] Address: [address] [place] [address] Performed By: #### 2 4323-8 ####[facility] MILLTOWNCLIA [id number] [place] [address] [place] Protein [Mass/Vol] 7.0 g/dL Normal 6.3-8.0 [facility] Comment on above: Order Comment: Speci men Type: BLOOD SPECIMENOrdering Facility: [facility] Address: [address] [place] [address] Performed By: #### 2 4323-8 ####[facility] HOSPITALWNCLIA [id number] [place] [address] [place] Sodium [Moles/Vol] 138 mmol/L Normal 136-144 [facility] Comment on above: Order Comment: Speci men Type: BLOOD SPECIMENOrdering Facility: [facility] Address: [address] [place] [address] Performed By: #### 2 4323-8 ####[facility] HOSPITALWNCLIA [id number] [place] [address] [place] Urea nitrogen [Mass/Vol] 12 mg/dL Normal 7-21 [facility] Comment on above: Order Comment: Speci men Type: BLOOD SPECIMENOrdering Facility: [facility] Address: [address] [place] [address] Performed By: #### 2 4323-8 ####[facility] HOSPITALWNCLIA [id number] [place] [address] [place] ITRACONAZOLE BLOODon 09-02- 025 HYDROXYITRACONAZOLE 3.0 ug/mL Normal [facility] Comment on above: Order Comment: Speci men Type: BLOOD SPECIMENOrdering Facility: [facility] Address: [address] [place] [address] Result Comment: Rang es are based on [...] of Aspergillosis and Candidiasis and consultation from [facility]'s Department of Infectious Disease.Reference ranges and high/low indicator flags are provided as general guidelines only. The treating physician must determine appropriate target levels/dosing based on the specific clinical situation.This test was developed, and its performance characteristics determined by the [facility] Department of Pathology and Laboratory Medicine. It has not been cleared or approved by the FDA. The [facility] Department of Pathology and Laboratory Medicine is regulated under CLIA as qualified to perform high-complexity testing. This test is used for clinical purposes. It should not be regarded as investigational or for research. Performed By: #### I TRAC ####[facility] LABCLIA [id number] [place] [address] [place] ITRACONAZOLE BLD 1.6 ug/mL Normal 0.6-2.9 [facility] Comment on above: Order Comment: Speci men Type: BLOOD SPECIMENOrdering Facility: [facility] Address: [address] [place] [address] Performed By: #### I TRAC ####[facility] LABCLIA [id number] [place] [address] [place] US PELVIS NON-OB [...] 3:39:12 PM Ordering Provider: ARIEL WHITE Normal [facility] L305.1805on 08-28-2024 Path [facility] SEE PATHOLOGY REPORT Normal [facility] Comment on above: Order Comment: RESUL TS FAXED 09/16/24 1110 Andie Keane. Result Comment: Spec imen sent to [facility] Pathology Department. Report available in EMR. Performed By: #### L 305.1805 ####[facility] [id number] [place], [address] CBC W Auto Differential pane l (Bld)on 08-27-2024 Basophils (Bld) [#/Vol] 0.03 10*3/uL Normal <0.11 [facility] Comment on above: Order Comment: Speci men Type: BLOOD SPECIMENOrdering Facility: [facility] Address: [address] [place] [address] Performed By: #### 5 7021-8 ####[facility] [id number] [place] [address] [place] Basophils/100 WBC (Bld) 0.4 % Normal [facility] Comment on above: Order Comment: Speci men Type: BLOOD SPECIMENOrdering Facility: [facility] Address: [address] [place] [address] Performed By: #### 5 7021-8 ####[facility] [id number] [place] [address] [place] Differential cell count method Nom (Bld) Auto Normal [facility] Comment on above: Order Comment: Speci men Type: BLOOD SPECIMENOrdering Facility: [facility] Address: [address] [place] [address] Performed By: #### 5 7021-8 ####[facility] [id number] [place] [address] [place] Eosinophils (Bld) [#/Vol] 0.19 10*3/uL Normal <0.46 [facility] Comment on above: Order Comment: Speci men Type: BLOOD SPECIMENOrdering Facility: [facility] Address: [address] [place] [address] Performed By: #### 5 7021-8 ####[facility] MIAMINCLIA [id number] [place] [address] [place] Eosinophils/100 WBC (Bld) 2.3 % Normal [facility] Comment on above: Order Comment: Speci men Type: BLOOD SPECIMENOrdering Facility: [facility] Address: [address] [place] [address] Performed By: #### 5 7021-8 ####[facility] MIAMINCLIA [id number] [place] [address] [place] Erythrocyte distribution width (RBC) [Ratio] 13.4 % Normal 11.5-15.0 [facility] Comment on above: Order Comment: Speci men Type: BLOOD SPECIMENOrdering Facility: [facility] Address: [address] [place] [address] Performed By: #### 5 7021-8 ####[facility] GEOFFREYAMRCIALIA [id number] [place] [address] [place] Hematocrit (Bld) [Volume fraction] 34.2 % Low 36.0-46.0 [facility] Comment on above: Order Comment: Speci men Type: BLOOD SPECIMENOrdering Facility: [facility] Address: [address] [place] [address] Performed By: #### 5 7021-8 ####[facility] MIAMINCA [id number] [place] [address] [place] Hemoglobin (Bld) [Mass/Vol] 11.4 g/dL Low 11.5-15.5 [facility] Comment on above: Order Comment: Speci men Type: BLOOD SPECIMENOrdering Facility: [facility] Address: [address] [place] [address] Performed By: #### 5 7021-8 ####[facility] [id number] [place] [address] [place] Immature granulocytes (Bld) [#/Vol] 0.03 10*3/uL Normal <0.10 [facility] Comment on above: Order Comment: Speci men Type: BLOOD SPECIMENOrdering Facility: [facility] Address: [address] [place] [address] Performed By: #### 5 7021-8 ####[facility] HOSPITALLIA [id number] [place] [address] [place] Immature granulocytes/100 WBC (Bld) 0.4 % Normal [facility] Comment on above: Order Comment: Speci men Type: BLOOD SPECIMENOrdering Facility: [facility] Address: [address] [place] [address] Performed By: #### 5 7021-8 ####[facility] [id number] [place] [address] [place] Lymphocytes (Bld) [#/Vol] 2.07 10*3/uL Normal 1.00-4.00 [facility] Comment on above: Order Comment: Speci men Type: BLOOD SPECIMENOrdering Facility: [facility] Address: [address] [place] [address] Performed By: #### 5 7021-8 ####[facility] [id number] [place] [address] [place] Lymphocytes/100 WBC (Bld) 24.9 % Normal [facility] Comment on above: Order Comment: Speci men Type: BLOOD SPECIMENOrdering Facility: [facility] Address: [address] [place] [address] Performed By: #### 5 7021-8 ####[facility] [id number] [address] [place] MCH (RBC) [Entitic mass] 28.4 pg Normal 26.0-34.0 [facility] Comment on above: Order Comment: Speci men Type: BLOOD SPECIMENOrdering Facility: [facility] Address: [address] [place] [address] Performed By: #### 5 7021-8 ####[facility] MIAMINCLIA [id number] [place] [address] [place] MCHC (RBC) [Mass/Vol] 33.3 g/dL Normal 30.5-36.0 [facility] Comment on above: Order Comment: Speci men Type: BLOOD SPECIMENOrdering Facility: [facility] Address: [address] [place] [address] Performed By: #### 5 7021-8 ####[facility] MIAMINCLIA [id number] [place] [address] [place] MCV (RBC) [Entitic vol] 85.3 fL Normal 80.0-100.0 [facility] Comment on above: Order Comment: Speci men Type: BLOOD SPECIMENOrdering Facility: [facility] Address: [address] [place] [address] Performed By: #### 5 7021-8 ####[facility] [id number] [place] [address] [place] Monocytes (Bld) [#/Vol] 0.58 10*3/uL Normal <0.87 [facility] Comment on above: Order Comment: Speci men Type: BLOOD SPECIMENOrdering Facility: [facility] Address: [address] [place] [address] Performed By: #### 5 7021-8 ####[facility] [id number] [place] [address] [place] Monocytes/100 WBC (Bld) 7.0 % Normal [facility] Comment on above: Order Comment: Speci men Type: BLOOD SPECIMENOrdering Facility: [facility] Address: [address] [place] [address] Performed By: #### 5 7021-8 ####[facility] [id number] [place] [address] [place] Neutrophils (Bld) [#/Vol] 5.41 10*3/uL Normal 1.45-7.50 [facility] Comment on above: Order Comment: Speci men Type: BLOOD SPECIMENOrdering Facility: [facility] [facility]ALTH Address: [address] [place] [address] Performed By: #### 5 7021-8 ####[facility] [id number] [place] [address] [place] Neutrophils/100 WBC (Bld) 65.0 % Normal [facility] Comment on above: Order Comment: Speci men Type: BLOOD SPECIMENOrdering Facility: [facility] Address: [address] [place] [address] Performed By: #### 5 7021-8 ####[facility] MIAMINCLIA [id number] [place] [address] [place] Nucleated RBC (Bld) [#/Vol] 10*3/uL Normal <0.01 [facility] Comment on above: Order Comment: Speci men Type: BLOOD SPECIMENOrdering Facility: [facility] Address: [address] [place] [address] Performed By: #### 5 7021-8 ####[facility] MIAMINCA [id number] [place] [address] [place] Nucleated RBC/100 WBC (Bld) [Ratio] 0.0 /100 WBC Normal [facility] Comment on above: Order Comment: Speci men Type: BLOOD SPECIMENOrdering Facility: [facility] Address: [address] [place] [address] Performed By: #### 5 7021-8 ####[facility]ITALL[facility] [id number] [place] [address] [place] Platelet mean volume (Bld) [Entitic vol] 9.5 fL Normal 9.0-12.7 [facility] Comment on above: Order Comment: Speci men Type: BLOOD SPECIMENOrdering Facility: [facility] Address: [address] [place] [address] Performed By: #### 5 7021-8 ####[facility]PITALL[facility] [id number] [place] [address] [place] Platelets (Bld) [#/Vol] 289 10*3/uL Normal 150-400 [facility] Comment on above: Order Comment: Speci men Type: BLOOD SPECIMENOrdering Facility: [facility] Address: [address] [place] [address] Performed By: #### 5 7021-8 ####[facility] [id number] [place] [address] [place] RBC (Bld) [#/Vol] 4.01 10*6/uL Normal 3.90-5.20 [facility] Comment on above: Order Comment: Speci men Type: BLOOD SPECIMENOrdering Facility: [facility] Address: [address] [place] [address] Performed By: #### 5 7021-8 ####[facility] MIAMINCLIA [id number] [place] [address] [place] WBC (Bld) [#/Vol] 8.31 10*3/uL Normal 3.70-11.00 [facility] Comment on above: Order Comment: Speci men Type: BLOOD SPECIMENOrdering Facility: [facility] Address: [address] [place] [address] Performed By: #### 5 7021-8 ####[facility] MIAMINCLIMoris [id number] [place] [address] [place] [facility] [place] Comprehensive metabolic 2000 panelon 08-27-2024 Albumin [Mass/Vol] 4.0 g/dL Normal 3.9-4.9 [facility] Comment on above: Order Comment: Speci men Type: BLOOD SPECIMENOrdering Facility: [facility] Address: [address] [place] [address] Performed By: #### 2 4323-8 ####[facility] MIAMINCLIA [id number] [place] [address] [place] ALP [Catalytic activity/Vol] 82 U/L Normal 34-123 [facility] Comment on above: Order Comment: Speci men Type: BLOOD SPECIMENOrdering Facility: [facility] Address: [address] [place], [place] [address] Performed By: #### 2 4323-8 ####[facility] HOSPITALWNCLIA [id number] [place] [address] [place] ALT [Catalytic activity/Vol] 14 U/L Normal 7-38 [facility] Comment on above: Order Comment: Speci men Type: BLOOD SPECIMENOrdering Facility: [facility] Address: [address] [place] [address] Performed By: #### 2 4323-8 ####[facility] HOSPITALWAKLIA [id number] [place] [address] [place] Anion gap [Moles/Vol] 10 mmol/L Normal 8-15 [facility] Comment on above: Order Comment: Speci men Type: BLOOD SPECIMENOrdering Facility: [facility] Address: [address] [place] [address] Performed By: #### 2 4323-8 ####[facility] [id number] [place] [address] [place] AST [Catalytic activity/Vol] 13 U/L Normal 13-35 [facility] Comment on above: Order Comment: Speci men Type: BLOOD SPECIMENOrdering Facility: [facility] Address: [address] [place] [address] Performed By: #### 2 4323-8 ####[facility] [id number] [place] [address] [place] Bilirubin [Mass/Vol] mg/dL Low 0.2-1.3 [facility] Comment on above: Order Comment: Speci men Type: BLOOD SPECIMENOrdering Facility: [facility] Address: [address] [place] [address] Performed By: #### 2 4323-8 ####[facility] [id number] [place] [address] [place] Calcium [Mass/Vol] 9.5 mg/dL Normal 8.5-10.2 [facility] Comment on above: Order Comment: Speci men Type: BLOOD SPECIMENOrdering Facility: [facility] Address: [address] [place] [address] Performed By: #### 2 4323-8 ####[facility] MIAMINCLIA [id number] [place] [address] [place] Chloride [Moles/Vol] 103 mmol/L Normal 98-107 [facility] Comment on above: Order Comment: Speci men Type: BLOOD SPECIMENOrdering Facility: [facility] Address: [address] [place] [address] Performed By: #### 2 4323-8 ####[facility]INCUNIVERS[facility] [id number] [place] [address] [place] CO2 [Moles/Vol] 25 mmol/L Normal 22-30 [facility] Comment on above: Order Comment: Speci men Type: BLOOD SPECIMENOrdering Facility: [facility] Address: [address] [place] [address] Performed By: #### 2 4323-8 ####[facility] [id number] [place] [address] [place] Creatinine [Mass/Vol] 0.71 mg/dL Normal 0.58-0.96 [facility] Comment on above: Order Comment: Speci men Type: BLOOD SPECIMENOrdering Facility: [facility] Address: [address] [place] [address] Performed By: #### 2 4323-8 ####[facility] [id number] [address] Creatinine and Glomerular filtration rate.predicted panel (S/P/Bld) 121 mL/min/1.73m??? Normal >=60 [facility] Comment on above: Order Comment: Speci men Type: BLOOD SPECIMENOrdering Facility: [facility] Address: [address] [place] [address] Result Comment: Edwige mated Glomerular Filtration Rate [...] actual GFR. Performed By: #### 2 4323-8 ####[facility] MIAMINCLIA [id number] [place] [address] [place] Glucose [Mass/Vol] 112 mg/dL High 74-99 [facility] Comment on above: Order Comment: Ronnie alonzo Type: BLOOD SPECIMENOrdering Facility: [facility] Address: [address] [place] [address] Result Comment: The [place] [employer] (ADA) provides guidance for cutoff [...] Standards of Medical Care in Diabetes 2016, [place] [employer]. Diabetes Care. 2016.39(Suppl 1). Performed By: #### 2 4323-8 ####[facility]ITALL[facility] [id number] [place] [address] [place] Potassium [Moles/Vol] 3.8 mmol/L Normal 3.7-5.1 [facility] Comment on above: Order Comment: Ronnie alonzo Type: BLOOD SPECIMENOrdering Facility: [facility] Address: [address] [id number] Performed By: #### 2 4323-8 ####[facility] MIAMINCLIA [id number] [place] [address] [place] Protein [Mass/Vol] 7.0 g/dL Normal 6.3-8.0 [facility] Comment on above: Order Comment: Speci men Type: BLOOD SPECIMENOrdering Facility: [facility] Address: [address] [place] [address] Performed By: #### 2 4323-8 ####[facility] [id number] [place] [address] [place] Sodium [Moles/Vol] 138 mmol/L Normal 136-144 [facility] Comment on above: Order Comment: Speci men Type: BLOOD SPECIMENOrdering Facility: [facility] Address: [address] [place] [address] Performed By: #### 2 4323-8 ####[facility] [id number] [place] [address] [place] Urea nitrogen [Mass/Vol] 14 mg/dL Normal 7-21 [facility] Comment on above: Order Comment: Colettei men Type: BLOOD SPECIMENOrdering Facility: [facility] Address: [address] [place] [address] Performed By: #### 2 4323-8 ####[facility] [id number] [place] [address] [place] ITRACONAZOLE BLOODon 025 HYDROXYITRACONAZOLE 2.8 ug/mL Normal [facility] Comment on above: Order Comment: Speci men Type: BLOOD SPECIMENOrdering Facility: [facility] Address: [address] [place] [address] Result Comment: Rang es are based on [...] of Aspergillosis and Candidiasis and consultation from [facility]'s Department of Infectious Disease.Reference ranges and high/low indicator flags are provided as general guidelines only. The treating physician must determine appropriate target levels/dosing based on the specific clinical situation.This test was developed, and its performance characteristics determined by the [facility] Department of Pathology and Laboratory Medicine. It has not been cleared or approved by the FDA. The [facility] Department of Pathology and Laboratory Medicine is regulated under CLIA as qualified to perform high-complexity testing. This test is used for clinical purposes. It should not be regarded as investigational or for research. Performed By: #### I TRAC ####[facility] LABCLIA [id number] [address] [place] ITRACONAZOLE BLD 1.7 ug/mL Normal 0.6-2.9 [facility] Comment on above: Order Comment: Speci men Type: BLOOD SPECIMENOrdering Facility: [facility] Address: [address] [place] [address] Performed By: #### I TRAC ####[facility] LABIA [id number] [place] [address] [place] CBC W/Diff, Automatedon 04-0 8-2024 Absolute Lymph 2.34 X10 3/uL Normal 0.83-4.51 [facility] Comment on above: Performed By: #### L 100.0100, L5.6030 ####[facility] [address] [facility] [address] Absolute Neut 4.3 X10 3/uL Normal 2.0-7.7 [facility] Comment on above: Performed By: #### L 100.0100, L5.6030 ####[facility] [address] [facility] [address] Basophils/100 WBC (Bld) 0.4 % Normal 0-1 [facility] Comment on above: Performed By: #### L 100.0100, L5.6030 ####[facility] [address] [place], [address] Eosinophils/100 WBC (Bld) 2.0 % Normal 0-5 [facility] Comment on above: Performed By: #### L 100.0100, L503.6030 ####[facility] [address] [place], [address] Erythrocyte distribution width (RBC) [Ratio] 13.4 % Normal 11.6-14.6 [facility] Comment on above: Performed By: #### L 100.0100, L503.6030 ####[facility] [address] [place], [address] Hematocrit (Bld) [Volume fraction] 35.1 % Low 37-47 [facility] Comment on above: Performed By: #### L 100.0100, L503.6030 ####[facility] [address] [place], [address] Hemoglobin (Bld) [Mass/Vol] 11.8 g/dL Low 12.0-15.0 [facility] Comment on above: Performed By: #### L 100.0100, L503.6030 ####[facility] [address] [place], [address] IG% 0.400 Normal 0.0-0.9 [facility] Comment on above: Result Comment: IG% - Immature Granulocytes (promyelocytes, myelocytes and metamyelocytes) > 1% indicates that a LEFT SHIFT is Present. Performed By: #### L 100.0100, L503.6030 ####[facility] [address] [place], [address] Lymphocytes/100 WBC (Bld) 31.8 % Normal 19-41 [facility] Comment on above: Performed By: #### L 100.0100, L503.6030 ####[facility] [address] [place], [address] MCH (RBC) [Entitic mass] 29.4 pg Normal 27.0-32.0 [facility] Comment on above: Performed By: #### L 100.0100, L503.6030 ####[facility] [address] [place], [address] MCHC (RBC) [Mass/Vol] 33.6 g/dL Normal 32-36 [facility] Comment on above: Performed By: #### L 100.0100, L503.6030 ####[facility] [address] [place], [address] MCV (RBC) [Entitic vol] 87.5 fL Normal 81-99 [facility] Comment on above: Performed By: #### L 100.0100, L503.6030 ####[facility] [address] [place], [address] Monocytes/100 WBC (Bld) 7.6 % Normal 0-10 [facility] Comment on above: Performed By: #### L 100.0100, L503.6030 ####[facility] [address] [place], [address] Neutrophils/100 WBC (Bld) 57.8 % Normal 47-70 [facility] Comment on above: Performed By: #### L 100.0100, L503.6030 ####[facility] [address] [place], [address] Nucleated RBC (Bld) [#/Vol] 0 10*3/uL Normal 0-5 [facility] Comment on above: Performed By: #### L 100.0100, L503.6030 ####[facility] [address] [place], [address] Platelet mean volume (Bld) [Entitic vol] 9.9 fL Normal 6.2-12.0 [facility] Comment on above: Performed By: #### L 100.0100, L503.6030 ####[facility] [address] [place], [address] Platelets (Bld) [#/Vol] 297 10*3/uL Normal 150-450 [facility] Comment on above: Performed By: #### L 100.0100, L503.6030 ####[facility] [address] [place], [address] RBC (Bld) [#/Vol] 4.01 10*6/uL Low 4.2-5.4 [facility] Comment on above: Performed By: #### L 100.0100, L503.6030 ####[facility] [address] [place], [address] RDW SD 42.5 fl Normal 35.1-43.9 [facility] Comment on above: Performed By: #### L 100.0100, L503.6030 ####[facility] [address] [place], [address] WBC (Bld) [#/Vol] 7.4 10*3/uL Normal 4.4-11.0 [facility] Comment on above: Performed By: #### L 100.0100, L503.6030 ####[facility] [address] [place], [address] Iron+Iron Binding Capacityon 08-26-2024 Iron [Mass/Vol] 49 ug/dL Low 50-170 [facility] Comment on above: Performed By: #### L 100.0100, L503.6030 ####[facility] [address] [place], [address] IRON SATURATION 15.0 Normal 13-59 [facility] Comment on above: Performed By: #### L 100.0100, L503.6030 ####[facility] [address] [place], [address] TIBC 324 ug/dL Normal 250-450 [facility] Comment on above: Performed By: #### L 100.0100, L503.6030 ####[facility] [address] [place], [address] UIBC 275 ug/dL Normal 228-428 [facility] Comment on above: Performed By: #### L 100.0100, L503.6030 ####[facility] [address] [place], [address] L509.6001on 08-26-2024 CORTISOL 26.00 ug/dL High 6.02-18.40 [facility] Comment on above: Order Comment: CLEAN CATCH Performed By: #### L 400.0001 #### [facility] [address] [place], [address] CORTISOL 24.60 ug/dL High 6.02-18.40 [facility] Comment on above: Order Comment: 30 VT NUTES Performed By: #### L 509.6001 ####[facility] [address] [place], [address] CORTISOL 22.40 ug/dL High 6.02-18.40 [facility] Comment on above: Order Comment: BASEL INE Performed By: #### L 509.6001 ####[facility] [address] [place], [address] CNPNon 08-25-2024 CNPN Telephone (MMPRAD) ----- MATT CALABRESE ([id number]) 89 F Date Time Provider Department 08/25/24 [...] 09/12 she verbalized understanding Marta Walters MD, [facility] Staff Physician Dept of Infectious Disease [facility] Allergies As of Date: 08/25/2024 Noted Allergy [...] Diagnosis:Histoplasmosis [B39.9] Order(s):ITRACONAZOLE BLOOD [SQITRAC] Order #: [id number] FUTURE COMPREHENSIVE METABOLIC PANEL [SQCMP] Order #: [id number] FUTURE Prescriptions as of 08/25/2024 - itraconazole [...] Encounter Status:Closed by KRAIG WALTERS on 08/25/24 [facility] Inital Evaluation (1) - PTon 08-22-2024 Inital Evaluation (1) - PT [facility] Physical Therapy [facility] [address] [place] [address] [address] [place] [address] / REHABILITATION SERVICES INITIAL EVALUATION MR#: [id number] Acct: [id number] Name: MATT CALABRESE Rep #: [id number] : 2000 24 From: Evans Matthews PT, ATC Referring Dr.: LENA Beatty Status: REG RCR Insurance: [facility] [employer] SELF PAY INSURANCE Patient's Visit Information Visit Information Visit Information: MATT CALABRESE is a 24 year old F referred to Physical Therapy by LENA Beatty with a diagnosis of LBP. Date [...] in the past for LBP here at [facility], which always made her feel better. Pt [...] to be FAXED BACK to us at [phone] for Medicare purposes. For Medicare only, by signing this I certify the plan of care. Please let me know if there are questions or concerns regarding this plan of care. Physician Signature: Date: _ 08/22/24 1506 CC: LENA Priest [facility] Signed Normal [facility] CNPNon 08-21-2024 CNPN Normal [facility] CBC W Auto Differential pane l (Bld)on 08-20-2024 Basophils (Bld) [#/Vol] 0.03 10*3/uL Normal <0.11 [facility] Comment on above: Order Comment: Speci men Type: BLOOD SPECIMENOrdering Facility: [facility] Address: [address] [place] [address] Performed By: #### 5 7021-8 ####[facility] [id number] [place] [address] [place] Basophils/100 WBC (Bld) 0.6 % Normal [facility] Comment on above: Order Comment: Speci men Type: BLOOD SPECIMENOrdering Facility: [facility] Address: [address] [place] [address] Performed By: #### 5 7021-8 ####[facility] [id number] [place] [address] [place] Differential cell count method Nom (Bld) Auto Normal [facility] Comment on above: Order Comment: Speci men Type: BLOOD SPECIMENOrdering Facility: [facility] Address: [address] [place] [address] Performed By: #### 5 7021-8 ####[facility] [id number] [place] [address] [place] Eosinophils (Bld) [#/Vol] 0.12 10*3/uL Normal <0.46 [facility] Comment on above: Order Comment: Speci men Type: BLOOD SPECIMENOrdering Facility: [facility] Address: [address] [place] [address] Performed By: #### 5 7021-8 ####[facility] [id number] [place] [address] [place] Eosinophils/100 WBC (Bld) 2.2 % Normal [facility] Comment on above: Order Comment: Speci men Type: BLOOD SPECIMENOrdering Facility: [facility] Address: [address] [place] [address] Performed By: #### 5 7021-8 ####[facility] [id number] [place] [address] [place] Erythrocyte distribution width (RBC) [Ratio] 13.6 % Normal 11.5-15.0 [facility] Comment on above: Order Comment: Speci men Type: BLOOD SPECIMENOrdering Facility: [facility] Address: [address] [place] [address] Performed By: #### 5 7021-8 ####[facility] [id number] [place] [address] [place] Hematocrit (Bld) [Volume fraction] 34.2 % Low 36.0-46.0 [facility] Comment on above: Order Comment: Speci men Type: BLOOD SPECIMENOrdering Facility: [facility] Address: [address] [place] [address] Performed By: #### 5 7021-8 ####[facility] MIAMINCTAYLER [id number] [place] [address] [place] Hemoglobin (Bld) [Mass/Vol] 11.3 g/dL Low 11.5-15.5 [facility] Comment on above: Order Comment: Speci men Type: BLOOD SPECIMENOrdering Facility: [facility] Address: [address] [place] [address] Performed By: #### 5 7021-8 ####[facility] OF MIAMISOPHIA [id number] [place] [address] [place] Immature granulocytes (Bld) [#/Vol] 10*3/uL Normal <0.10 [facility] Comment on above: Order Comment: Speci men Type: BLOOD SPECIMENOrdering Facility: [facility] Address: [address] [place] [address] Performed By: #### 5 7021-8 ####[facility] MIAMINCLIA [id number] [place] [address] [place] Immature granulocytes/100 WBC (Bld) 0.4 % Normal [facility] Comment on above: Order Comment: Speci men Type: BLOOD SPECIMENOrdering Facility: [facility] Address: [address] [place] [address] Performed By: #### 5 7021-8 ####[facility] MILLWNCLIA [id number] [place] [address] [place] Lymphocytes (Bld) [#/Vol] 1.45 10*3/uL Normal 1.00-4.00 [facility] Comment on above: Order Comment: Speci men Type: BLOOD SPECIMENOrdering Facility: [facility] Address: [address] [place] [address] Performed By: #### 5 7021-8 ####[facility]ITALL[facility] [id number] [place] [address] [place] Lymphocytes/100 WBC (Bld) 26.8 % Normal [facility] Comment on above: Order Comment: Speci men Type: BLOOD SPECIMENOrdering Facility: [facility] Address: [address] [place] [address] Performed By: #### 5 7021-8 ####[facility] [id number] [place] [address] [place] MCH (RBC) [Entitic mass] 28.3 pg Normal 26.0-34.0 [facility] Comment on above: Order Comment: Speci men Type: BLOOD SPECIMENOrdering Facility: [facility] Address: [address] [place] [address] Performed By: #### 5 7021-8 ####[facility] [id number] [place] [address] [place] MCHC (RBC) [Mass/Vol] 33.0 g/dL Normal 30.5-36.0 [facility] Comment on above: Order Comment: Speci men Type: BLOOD SPECIMENOrdering Facility: [facility] Address: [address] [place] [address] Performed By: #### 5 7021-8 ####[facility] MIAMINCLIA [id number] [place] [address] [place] MCV (RBC) [Entitic vol] 85.7 fL Normal 80.0-100.0 [facility] Comment on above: Order Comment: Speci men Type: BLOOD SPECIMENOrdering Facility: [facility] Address: [address] [place] [address] Performed By: #### 5 7021-8 ####[facility] [id number] [place] [address] [place] Monocytes (Bld) [#/Vol] 0.41 10*3/uL Normal <0.87 [facility] Comment on above: Order Comment: Speci men Type: BLOOD SPECIMENOrdering Facility: [facility] Address: [address] [place] [address] Performed By: #### 5 7021-8 ####[facility] [id number] [place] [address] [place] Monocytes/100 WBC (Bld) 7.6 % Normal [facility] Comment on above: Order Comment: Speci men Type: BLOOD SPECIMENOrdering Facility: [facility] Address: [address] [place] [address] Performed By: #### 5 7021-8 ####[facility] [id number] [place] [address] [place] Neutrophils (Bld) [#/Vol] 3.38 10*3/uL Normal 1.45-7.50 [facility] Comment on above: Order Comment: Speci men Type: BLOOD SPECIMENOrdering Facility: [facility] Address: [address] [place] [address] Performed By: #### 5 7021-8 ####[facility]INCLIA [id number] [place] [address] [place] Neutrophils/100 WBC (Bld) 62.4 % Normal [facility] Comment on above: Order Comment: Speci men Type: BLOOD SPECIMENOrdering Facility: [facility] Address: [address] [place] [address] Performed By: #### 5 7021-8 ####[facility] GEOFFREYSIOUX CITYSOPHIA [id number] [place] [address] [place] Nucleated RBC (Bld) [#/Vol] 10*3/uL Normal <0.01 [facility] Comment on above: Order Comment: Speci men Type: BLOOD SPECIMENOrdering Facility: [facility] Address: [address] [place] [address] Performed By: #### 5 7021-8 ####[facility] [id number] [place] [address] [place] Nucleated RBC/100 WBC (Bld) [Ratio] 0.0 /100 WBC Normal [facility] Comment on above: Order Comment: Speci men Type: BLOOD SPECIMENOrdering Facility: [facility] Address: [address] [place] [address] Performed By: #### 5 7021-8 ####[facility] MIAMINCA [id number] [place] [address] [place] Platelet mean volume (Bld) [Entitic vol] 10.2 fL Normal 9.0-12.7 [facility] Comment on above: Order Comment: Speci men Type: BLOOD SPECIMENOrdering Facility: [facility] Address: [address] [place] [address] Performed By: #### 5 7021-8 ####[facility]INCLIA [id number] [place] [address] [place] Platelets (Bld) [#/Vol] 226 10*3/uL Normal 150-400 [facility] Comment on above: Order Comment: Speci men Type: BLOOD SPECIMENOrdering Facility: [facility] Address: [address] [place] [address] Performed By: #### 5 7021-8 ####[facility] MILLWNCLIA [id number] [place] [address] [place] RBC (Bld) [#/Vol] 3.99 10*6/uL Normal 3.90-5.20 [facility] Comment on above: Order Comment: Speci men Type: BLOOD SPECIMENOrdering Facility: [facility] Address: [address] [place] [address] Performed By: #### 5 7021-8 ####[facility]INCLIA [id number] [place] [address] [place] WBC (Bld) [#/Vol] 5.41 10*3/uL Normal 3.70-11.00 [facility] Comment on above: Order Comment: Speci men Type: BLOOD SPECIMENOrdering Facility: [facility] Address: [address] [place] [address] Performed By: #### 5 7021-8 ####[facility]INCLIA [id number] [place] [address] [place] Comprehensive metabolic 2000 panelon 08-20-2024 Albumin [Mass/Vol] 4.1 g/dL Normal 3.9-4.9 [facility] Comment on above: Order Comment: Speci men Type: BLOOD SPECIMENOrdering Facility: [facility] Address: [address] [place] [address] Performed By: #### 2 4323-8 ####[facility] HOSPITALWNCLIA [id number] [place] [address] [place] ALP [Catalytic activity/Vol] 76 U/L Normal 34-123 [facility] Comment on above: Order Comment: Speci men Type: BLOOD SPECIMENOrdering Facility: [facility] Address: [address] [place] [address] Performed By: #### 2 4323-8 ####[facility] HOSPITALWNCLIA [id number] [place] [address] [place] ALT [Catalytic activity/Vol] 18 U/L Normal 7-38 [facility] Comment on above: Order Comment: Speci men Type: BLOOD SPECIMENOrdering Facility: [facility] Address: [address] [place] [address] Performed By: #### 2 4323-8 ####[facility] MILLTOWNCLIA [id number] [place] [address] [place] Anion gap [Moles/Vol] 9 mmol/L Normal 8-15 [facility] Comment on above: Order Comment: Speci men Type: BLOOD SPECIMENOrdering Facility: [facility] Address: [address] [place] [address] Performed By: #### 2 4323-8 ####[facility] MILLWNCLIA [id number] [place] [address] [place] AST [Catalytic activity/Vol] 17 U/L Normal 13-35 [facility] Comment on above: Order Comment: Speci men Type: BLOOD SPECIMENOrdering Facility: [facility] Address: [address] [place] [address] Performed By: #### 2 4323-8 ####[facility] HOSPITALWNCLIA [id number] [place] [address] [place] Bilirubin [Mass/Vol] 0.2 mg/dL Normal 0.2-1.3 [facility] Comment on above: Order Comment: Speci men Type: BLOOD SPECIMENOrdering Facility: [facility] Address: [address] [place] [address] Performed By: #### 2 4323-8 ####[facility] MILLTOWNCLIA [id number] [place] [address] [place] Calcium [Mass/Vol] 9.3 mg/dL Normal 8.5-10.2 [facility] Comment on above: Order Comment: Speci men Type: BLOOD SPECIMENOrdering Facility: [facility] Address: [address] [place] [address] Performed By: #### 2 4323-8 ####[facility] GEOFFREYWNCLIA [id number] [place] [address] [place] Chloride [Moles/Vol] 105 mmol/L Normal 98-107 [facility] Comment on above: Order Comment: Speci men Type: BLOOD SPECIMENOrdering Facility: [facility] Address: [address] [place] [address] Performed By: #### 2 4323-8 ####[facility]INCLIA [id number] [place] [address] [place] CO2 [Moles/Vol] 24 mmol/L Normal 22-30 [facility] Comment on above: Order Comment: Speci men Type: BLOOD SPECIMENOrdering Facility: [facility] Address: [address] [place] [address] Performed By: #### 2 4323-8 ####[facility]INCLIA [id number] [place] [address] [place] Creatinine [Mass/Vol] 0.65 mg/dL Normal 0.58-0.96 [facility] Comment on above: Order Comment: Speci men Type: BLOOD SPECIMENOrdering Facility: [facility] Address: [address] [place] [address] Performed By: #### 2 4323-8 ####[facility]INCLIA [id number] [place] [address] [place] Creatinine and Glomerular filtration rate.predicted panel (S/P/Bld) 125 mL/min/1.73m??? Normal >=60 [facility] Comment on above: Order Comment: Speci men Type: BLOOD SPECIMENOrdering Facility: [facility] Address: [address] [place] [address] Result Comment: Edwige mated Glomerular Filtration Rate [...] actual GFR. Performed By: #### 2 4323-8 ####[facility] [id number] [place] [address] [place] Glucose [Mass/Vol] 111 mg/dL High 74-99 [facility] Comment on above: Order Comment: Ronnie alonzo Type: BLOOD SPECIMENOrdering Facility: [facility] Address: [address] [place] [address] Result Comment: The [place] Diabetes Association (ADA) provides guidance for cutoff [...] Standards of Medical Care in Diabetes 2016, [place] [employer]. Diabetes Care. 2016.39(Suppl 1). Performed By: #### 2 4323-8 ####[facility] [id number] [place] [address] [place] Potassium [Moles/Vol] 3.8 mmol/L Normal 3.7-5.1 [facility] Comment on above: Order Comment: Ronnie alonzo Type: BLOOD SPECIMENOrdering Facility: [facility] Address: [address] [place] [address] Performed By: #### 2 4323-8 ####[facility] [id number] [place] [address] [place] Protein [Mass/Vol] 7.3 g/dL Normal 6.3-8.0 [facility] Comment on above: Order Comment: Speci men Type: BLOOD SPECIMENOrdering Facility: [facility] Address: [address] [place] [address] Performed By: #### 2 4323-8 ####[facility] [id number] [place] [address] [place] Sodium [Moles/Vol] 138 mmol/L Normal 136-144 [facility] Comment on above: Order Comment: Speci men Type: BLOOD SPECIMENOrdering Facility: [facility] Address: [address] [place] [address] Performed By: #### 2 4323-8 ####[facility] [id number] [place] [address] [place] Urea nitrogen [Mass/Vol] 14 mg/dL Normal 7-21 [facility] Comment on above: Order Comment: Speci men Type: BLOOD SPECIMENOrdering Facility: [facility] Address: [address] [place] [address] Performed By: #### 2 4323-8 ####[facility]ITALLI [id number] [place] [address] [place] ITRACONAZOLE BLOODon 025 HYDROXYITRACONAZOLE 2.7 ug/mL Normal [facility] Comment on above: Order Comment: Speci men Type: BLOOD SPECIMENOrdering Facility: [facility] Address: [address] [place] [address] Result Comment: Rang es are based on [...] of Aspergillosis and Candidiasis and consultation from [facility]'s Department of Infectious Disease.Reference ranges and high/low indicator flags are provided as general guidelines only. The treating physician must determine appropriate target levels/dosing based on the specific clinical situation.This test was developed, and its performance characteristics determined by the [facility] Department of Pathology and Laboratory Medicine. It has not been cleared or approved by the FDA. The [facility] Department of Pathology and Laboratory Medicine is regulated under CLIA as qualified to perform high-complexity testing. This test is used for clinical purposes. It should not be regarded as investigational or for research. Performed By: #### I TRAC ####[facility] LABCLIA [id number] [address] [place] ITRACONAZOLE BLD 2.4 ug/mL Normal 0.6-2.9 [facility] Comment on above: Order Comment: Speci men Type: BLOOD SPECIMENOrdering Facility: [facility] Address: [address] [place] [address] Performed By: #### I TRAC ####[facility]ITAL[facility] [id number] [place] [address] [place] SURG PATH REQUESTon 08-16-19 Case Report [facility] Comment on above: Result Comment: Surg ical Pathology Report Case: [id number] Authorizing Provider: Collected: 08/15/2024 10:00 AM Ordering [facility] Received: 08/15/2024 05:22 PM [facility] Pathologist: JESSICA Murphy Specimen: SURG PATH, Liver - Rt lobe Performed By: #### S URGP #### [facility] (DEFAULT) [address] [place] [address] Clinical History Preop Diagnosis: Histoplasmosis. [facility] Comment on above: Performed By: #### S URGP #### [facility] (DEFAULT) [address] [id number] Diagnosis Comments Normal [facility] Comment on above: Result Comment: COMM ENT: Steatohepatitis is a pattern of liver injury that can occur in the setting of metabolic factors (including obesity and hyperinsulinemia), drug, or toxin-induced injury (including alcohol intake), or inherited diseases such as Justin disease. These various etiologies cannot be reliably based on histology alone. Correlation with clinical information, including risk factors for metabolic dysfunction and alcohol use is recommended. Activity Score for Metabolic Dysfunction-Associated Steatohepatitis (MASH), per GARCIA CRN Scoring: Steatosis: 1 (20%) Lobular inflammation: 1 (1-2 foci per 20x field) Hepatocyte balloonin (Few) Total Score: 3/8 Fibrosis Stage: 0 of 4 0 (No fibrosis) Other Features: Portal inflammation: Minimal chronic inflammation Rashida-Denk bodies: Rare poorly-formed Glycogenated nuclei: Present Lipogranulomas: Absent Neutrophilic satellitosis: Absent Cholestasis: Absent Dr. Gladys Bryan from GI pathology division has reviewed outside dealer sales representative scanned slides. Performed By: #### S URGP #### [facility] (DEFAULT) [address] [place] [address] Gross Description Normal [facility] Comment on above: Result Comment: The specimen is received in one properly labeled container with the patient's name and accession number. A. The specimen is designated right lobe of liver and consists of two, 2.1 x 2.4 cm chester-brown needle core biopsies. TE 2 Lab Use Only: JobID [id number] Grosser for this case was: Dario Yang Performed By: #### S URGP #### [facility] (DEFAULT) [address] [place] [address] Microscopic Description Normal [facility] Comment on above: Result Comment: A mi croscopic examination was performed. All controls show appropriate reactivity. All immunohistochemistry (IHC), in situ hybridization (DALE), and histochemical tests were developed by and are performed at the [facility] Clinical [facility], Histology and IHC Lab, [address] [place] [address]. All Immunofluorescent (IF) tests were developed by and are performed at the [facility], Renal Division, [address] [place] [address]. All tests reported here, except for PD-L1, have not been cleared by or approved by the [place] Food and Drug Administration (FDA). The laboratory is regulated under CLIA as qualified to perform high-complexity testing. The tests are used for clinical purposes. They should not be regarded as investigational or for research. Performed By: #### S URGP #### [facility] (DEFAULT) [address] [place] [address] Pathologic Diagnosis Normal [facility] Comment on above: Result Comment: Srinivas willett, right lobe, biopsy: Mild macrovesicular steatosis with features of steatohepatitis; see comment Trichrome stain (A1, A2) with no significant fibrosis PAS-D stain negative for intracytoplasmic hyaline globules Iron stain is negative for iron deposition Reticulin stain (A1, A2) with preserved lobular architecture at 1142 EDT Performed By: #### S URGP #### [facility] (DEFAULT) [address] [place] [address] Professional Interpretation Performed at: [facility] Comment on above: Result Comment: [facility] For Immediate Release to Patient's [facility]? Yes [address] [place] [address] Performed By: #### S URGP #### [facility] (DEFAULT) [address] [place] [address] US Needle Biopsy/Soft Tissue on 08-15-2024 US Needle Biopsy/Soft Tissue [facility] [address] [place], [place] [id number] US Needle Biopsy/Soft Tissue MR#: [id number] Acct: [id number] Name: MATT CALABRESE HELIO Rep #: [id number] : 2000 F 24 From: Adam Crump PCP: LENA Beatty Status: [facility] CLI Study: US Needle Biopsy/Soft Tissue Date of Exam: Exam# [id number] Ordering Dr: Marquita Chavez PROCEDURE: US NEEDLE BIOPSY/SOFT TISSUE 08/15/2024 REASON [...] ultrasound-guided liver biopsy as described. Reading Location: [place] [address] CC: LENA Priest; LENA Chavez 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: Signed Normal [facility] .Auto Diffon 08-13-2024 Basophil, Absolute 0.0 10 3/mcL Normal 0.0-0.2 [facility] Comment on above: Performed By: #### G FR, BMP #### [address] [address] Basophils/100 WBC (Bld) 0.4 % Normal 0.0-2.5 [facility] Comment on above: Performed By: #### G FR, BMP #### [address] [address] Eosinophil, Absolute 0.1 10 3/mcL Normal 0.0-0.7 [facility] Comment on above: Performed By: #### G FR, BMP #### [address] [address] Eosinophils/100 WBC (Bld) 1.0 % Normal 0.0-7.0 [facility] Comment on above: Performed By: #### G FR, BMP #### [address] [address] Lymphocyte, Absolute 1.7 10 3/mcL Normal 0.9-4.3 [facility] Comment on above: Performed By: #### G FR, BMP #### [address] [address] Lymphocytes/100 WBC (Bld) 26.0 % Normal 20.0-40.0 [facility] Comment on above: Performed By: #### G FR, BMP #### [address] [address] Monocyte, Absolute 0.4 10 3/mcL Normal 0.1-1.4 [facility] Comment on above: Performed By: #### G FR, BMP #### [address] [address] Monocytes/100 WBC (Bld) 5.5 % Normal 2.0-13.0 [facility] Comment on above: Performed By: #### G FR, BMP #### [address] [address] Neutrophils/100 WBC (Bld) 67.1 % Normal 50.0-75.0 [facility] Comment on above: Performed By: #### G FR, BMP #### [address] [address] .NEUABSon 08-13-2024 Neutrophil, Absolute 4.3 10 3/mcL Normal 2.3-8.1 [facility] Comment on above: Performed By: #### G FR, BMP #### [address] [address] A1Con 08-13-2024 Glucose [Mass/Vol] 120 mg/dL Normal [facility] Comment on above: Result Comment: Edwige mated Average Glucose calculated by equation ((28.7xA1C)-46.7) Estimated average glucose (eAG) is a calculated value from Hemoglobin A1C and is outside dealer sales representative of the average blood glucose level in the last 2-3 month period. Normal range: less than 114 mg/dL Performed By: #### G FR, BMP #### [address] [address] HbA1c (Bld) [Mass fraction] 5.8 % Normal 4.3-6.4 [facility] Comment on above: Performed By: #### G FR, BMP #### [address] [address] B12on 08-13-2024 Cobalamin (Vitamin B12) [Mass/Vol] 633 pg/mL Normal 211-911 [facility] Comment on above: Performed By: #### G FR, BMP #### [address] [address] CBCon 08-13-2024 Erythrocyte distribution width (RBC) [Ratio] 14.2 % Normal 11.5-15.5 [facility] Comment on above: Performed By: #### G FR, BMP #### [address] [address] Hematocrit (Bld) [Volume fraction] 35.7 % Normal 34.0-46.0 [facility] Comment on above: Performed By: #### G FR, BMP #### [address] [address] Hgb 11.8 G/dL Low 12.0-16.0 [facility] Comment on above: Performed By: #### G FR, BMP #### [address] [address] MCH (RBC) [Entitic mass] 28.4 pg Normal 27.0-33.0 [facility] Comment on above: Performed By: #### G FR, BMP #### [address] [address] MCHC 33.2 G/dL Normal 32.0-36.0 [facility] Comment on above: Performed By: #### G FR, BMP #### [address] [address] MCV (RBC) [Entitic vol] 85.7 fL Normal 80.0-99.0 [facility] Comment on above: Performed By: #### G FR, BMP #### [address] [address] Platelet 222 10 3/mcL Normal 150-450 [facility] Comment on above: Performed By: #### G FR, BMP #### [facility] [address] [place], [place] [address] Platelet mean volume (Bld) [Entitic vol] 8.9 fL Normal 6.6-10.5 [facility] Comment on above: Performed By: #### G FR, BMP #### [facility] [address] [place], [place] [address] RBC 4.16 10 6/mcL Normal 4.10-5.30 [facility] Comment on above: Performed By: #### G FR, BMP #### [facility] [address] [place], [place] [address] WBC 6.5 10 3/mcL Normal 4.5-10.8 [facility] Comment on above: Performed By: #### G FR, BMP #### [place] [address] [place], [place] [address] CBC W Auto Differential pane l (Bld)on 08-13-2024 Basophils (Bld) [#/Vol] [facility] Basophils/100 WBC (Bld) 0.3 % [facility] Differential cell count method Nom (Bld) Auto [facility] Eosinophils (Bld) [#/Vol] 0.08 10*3/uL [facility] Eosinophils/100 WBC (Bld) 1.2 % [facility] Erythrocyte distribution width (RBC) [Ratio] 13.3 % 11.5 - 15.0 % [facility] Hematocrit (Bld) [Volume fraction] 37.7 % 36.0 - 46.0 % [facility] Hemoglobin (Bld) [Mass/Vol] 12.1 g/dL 11.5 - 15.5 g/dL [facility] Immature granulocytes (Bld) [#/Vol] [facility] Immature granulocytes/100 WBC (Bld) 0.3 % [facility] Lymphocytes (Bld) [#/Vol] 1.85 10*3/uL [facility] Lymphocytes/100 WBC (Bld) 27.4 % [facility] MCH (RBC) [Entitic mass] 28.4 pg 26.0 - 34.0 pg [facility] MCHC (RBC) [Mass/Vol] 32.1 g/dL 30.5 - 36.0 g/dL [facility] MCV (RBC) [Entitic vol] 88.5 fL 80.0 - 100.0 fL [facility] Monocytes (Bld) [#/Vol] 0.43 10*3/uL BANNERF [facility] Monocytes/100 WBC (Bld) 6.4 % [facility] Neutrophils (Bld) [#/Vol] 4.34 10*3/uL [facility] Neutrophils/100 WBC (Bld) 64.4 % [facility] Nucleated RBC (Bld) [#/Vol] NINF [facility] Nucleated RBC/100 WBC (Bld) [Ratio] 0 % /100 WBC [facility] Platelet mean volume (Bld) [Entitic vol] 11 fL 9.0 - 12.7 fL [facility] Platelets (Bld) [#/Vol] 257 10*3/uL [facility] RBC (Bld) [#/Vol] 4.26 10*6/uL 3.90 - 5.2 0 m/uL [facility] WBC (Bld) [#/Vol] 6.74 10*3/uL [facility] Basophils (Bld) [#/Vol] 10*3/uL Normal <0.11 [facility] Comment on above: Order Comment: Speci men Type: BLOOD SPECIMENOrdering Facility: [facility] Address: [address] [place] [address] Performed By: #### 5 7021-8 ####[facility] LABIA [id number] [place] [address] [place] Basophils/100 WBC (Bld) 0.3 % Normal [facility] Comment on above: Order Comment: Speci men Type: BLOOD SPECIMENOrdering Facility: [facility] Address: [address] [place] [address] Performed By: #### 5 7021-8 ####[facility] LABIA [id number] [place] [address] [place] Differential cell count method Nom (Bld) Auto Normal [facility] Comment on above: Order Comment: Speci men Type: BLOOD SPECIMENOrdering Facility: [facility] Address: [address] [place] [address] Performed By: #### 5 7021-8 ####[facility] LABCLIA [id number] [address], [place] [address] [place] Eosinophils (Bld) [#/Vol] 0.08 10*3/uL Normal <0.46 [facility] Comment on above: Order Comment: Speci men Type: BLOOD SPECIMENOrdering Facility: [facility] Address: [address] [place] [address] Performed By: #### 5 7021-8 ####[facility] LABCLIA [id number] [address], [place] [address] [place] Eosinophils/100 WBC (Bld) 1.2 % Normal [facility] Comment on above: Order Comment: Speci men Type: BLOOD SPECIMENOrdering Facility: [facility] Address: [address] [place] [address] Performed By: #### 5 7021-8 ####[facility] LABCLIA [id number] [address], [place] [address] [place] Erythrocyte distribution width (RBC) [Ratio] 13.3 % Normal 11.5-15.0 [facility] Comment on above: Order Comment: Speci men Type: BLOOD SPECIMENOrdering Facility: [facility] Address: [address] [place] [address] Performed By: #### 5 7021-8 ####[facility] LABCLIA [id number] [facility] [address], [facility] [place] Hematocrit (Bld) [Volume fraction] 37.7 % Normal 36.0-46.0 [facility] Comment on above: Order Comment: Speci men Type: BLOOD SPECIMENOrdering Facility: [facility] Address: [address] [place] [address] Performed By: #### 5 7021-8 ####[facility] LABCLIA [id number] [facility] [place] [address] [place] Hemoglobin (Bld) [Mass/Vol] 12.1 g/dL Normal 11.5-15.5 [facility] Comment on above: Order Comment: Speci men Type: BLOOD SPECIMENOrdering Facility: [facility] Address: [address] [place] [address] Performed By: #### 5 7021-8 ####[facility] LABCLIA [id number] [place] [address] [place] Immature granulocytes (Bld) [#/Vol] 10*3/uL Normal <0.10 [facility] Comment on above: Order Comment: Speci men Type: BLOOD SPECIMENOrdering Facility: [facility] Address: [address] [place] [address] Performed By: #### 5 7021-8 ####[facility] LABCLIA [id number] [place] [address] [place] Immature granulocytes/100 WBC (Bld) 0.3 % Normal [facility] Comment on above: Order Comment: Speci men Type: BLOOD SPECIMENOrdering Facility: [facility] Address: [address] [place] [address] Performed By: #### 5 7021-8 ####[facility] LABCLIA [id number] [place] [address] [place] Lymphocytes (Bld) [#/Vol] 1.85 10*3/uL Normal 1.00-4.00 [facility] Comment on above: Order Comment: Speci men Type: BLOOD SPECIMENOrdering Facility: [facility] Address: [address] [place] [address] Performed By: #### 5 7021-8 ####[facility] LABCLIA [id number] [place] [address] [place] Lymphocytes/100 WBC (Bld) 27.4 % Normal [facility] Comment on above: Order Comment: Speci men Type: BLOOD SPECIMENOrdering Facility: [facility] Address: [address] [place] [address] Performed By: #### 5 7021-8 ####[facility] LABIA [id number] [place] [address] [place] [facility] MCH (RBC) [Entitic mass] 28.4 pg Normal 26.0-34.0 [facility] Comment on above: Order Comment: Speci men Type: BLOOD SPECIMENOrdering Facility: [facility] Address: [address] [place] [address] Performed By: #### 5 7021-8 ####[facility] LABIA [id number] [place] [address] [place] MCHC (RBC) [Mass/Vol] 32.1 g/dL Normal 30.5-36.0 [facility] Comment on above: Order Comment: Speci men Type: BLOOD SPECIMENOrdering Facility: [facility] Address: [address] [place] [address] Performed By: #### 5 7021-8 ####[facility] LABIA [id number] [place] [address] [place] MCV (RBC) [Entitic vol] 88.5 fL Normal 80.0-100.0 [facility] Comment on above: Order Comment: Speci men Type: BLOOD SPECIMENOrdering Facility: [facility] Address: [address] [place] [address] Performed By: #### 5 7021-8 ####[facility] LABIA [id number] [place] [address] [place] Monocytes (Bld) [#/Vol] 0.43 10*3/uL Normal <0.87 [facility] Comment on above: Order Comment: Speci men Type: BLOOD SPECIMENOrdering Facility: [facility] Address: [address] [place] [address] Performed By: #### 5 7021-8 ####[facility] LABCLIA [id number] [place] [address] [place] Monocytes/100 WBC (Bld) 6.4 % Normal [facility] Comment on above: Order Comment: Speci men Type: BLOOD SPECIMENOrdering Facility: [facility] Address: [address] [place] [address] Performed By: #### 5 7021-8 ####[facility] LABCLIA [id number] [place] [address] [place] Neutrophils (Bld) [#/Vol] 4.34 10*3/uL Normal 1.45-7.50 [facility] Comment on above: Order Comment: Speci men Type: BLOOD SPECIMENOrdering Facility: [facility] Address: [address] [place] [address] Performed By: #### 5 7021-8 ####[facility] LABCLIA [id number] [place] [address] [place] Neutrophils/100 WBC (Bld) 64.4 % Normal [facility] Comment on above: Order Comment: Speci men Type: BLOOD SPECIMENOrdering Facility: [facility] Address: [address] [place] [address] Performed By: #### 5 7021-8 ####[facility] LABCLIA [id number] [place] [address] [place] Nucleated RBC (Bld) [#/Vol] 10*3/uL Normal <0.01 [facility] Comment on above: Order Comment: Speci men Type: BLOOD SPECIMENOrdering Facility: [facility] Address: [address] [place] [address] Performed By: #### 5 7021-8 ####[facility] LABCLIA [id number] [place] [address] [place] Nucleated RBC/100 WBC (Bld) [Ratio] 0.0 /100 WBC Normal [facility] Comment on above: Order Comment: Speci men Type: BLOOD SPECIMENOrdering Facility: [facility] Address: [address] [place] [address] Performed By: #### 5 7021-8 ####[facility] LABIA [id number] [place] [address] [place] Platelet mean volume (Bld) [Entitic vol] 11.0 fL Normal 9.0-12.7 [facility] Comment on above: Order Comment: Speci men Type: BLOOD SPECIMENOrdering Facility: [facility] Address: [address] [place] [address] Performed By: #### 5 7021-8 ####[facility] LABIA [id number] [place] [address] [place] Platelets (Bld) [#/Vol] 257 10*3/uL Normal 150-400 [facility] Comment on above: Order Comment: Speci men Type: BLOOD SPECIMENOrdering Facility: [facility] Address: [address] [place] [address] Performed By: #### 5 7021-8 ####[facility] LABIA [id number] [place] [address] [place] RBC (Bld) [#/Vol] 4.26 10*6/uL Normal 3.90-5.20 [facility] Comment on above: Order Comment: Speci men Type: BLOOD SPECIMENOrdering Facility: [facility] Address: [address] [place] [address] Performed By: #### 5 7021-8 ####[facility] LABCLIA [id number] [place] [address] [place] WBC (Bld) [#/Vol] 6.74 10*3/uL Normal 3.70-11.00 [facility] Comment on above: Order Comment: Speci men Type: BLOOD SPECIMENOrdering Facility: [facility] Address: [address] [place] [address] Performed By: #### 5 7021-8 ####[facility] LABCLIA [id number] [facility] [id number], [place] [address] [place] CNPNon 08-13-2024 CNPN Normal [facility] CRP SerPl-mCncon 08-13-2024 CRP [Mass/Vol] 0.5 mg/dL Normal <0.9 [facility] Comment on above: Order Comment: Speci men Type: BLOOD SPECIMENOrdering Facility: [facility] Address: [address] [place] [address] Performed By: #### 2 276-4, 1987-09, ####[facility] LABCLIA [id number] [address] [place] [address] [place] Comprehensive metabolic 2000 panelon 08-13-2024 Albumin [Mass/Vol] 4.3 g/dL Normal 3.9-4.9 [facility] Comment on above: Order Comment: Speci men Type: BLOOD SPECIMENOrdering Facility: [facility] Address: [address] [place] [address] Performed By: #### 2 276-4, 1987-09, ####[facility] LABCLIA [id number] [address] [place] [address] [place] ALP [Catalytic activity/Vol] 73 U/L Normal 34-123 [facility] Comment on above: Order Comment: Speci men Type: BLOOD SPECIMENOrdering Facility: [facility] Address: [address] [place], [place] [address] Performed By: #### 2 276-4, 1987-09, ####[facility] LABCLIA [id number] [address] [place] [address] [place] ALT [Catalytic activity/Vol] 33 U/L Normal 7-38 [facility] Comment on above: Order Comment: Speci men Type: BLOOD SPECIMENOrdering Facility: [facility] Address: [address] [place] [address] Performed By: #### 2 276-, 1987-09, ####[facility] LABCLIA [id number] [address] [address] [place] Anion gap [Moles/Vol] 13 mmol/L Normal 8-15 [facility] Comment on above: Order Comment: Speci men Type: BLOOD SPECIMENOrdering Facility: [facility] Address: [address] [place] [address] Performed By: #### 2 276-, 1987-09, ####[facility] LABCLIA [id number] [address] [address] [place] AST [Catalytic activity/Vol] 23 U/L Normal 13-35 [facility] Comment on above: Order Comment: Speci men Type: BLOOD SPECIMENOrdering Facility: [facility] Address: [address] [place] [address] Performed By: #### 2 276-, 1987-09, ####[facility] LABCLIA [id number] [address] [address] [place] Bilirubin [Mass/Vol] 0.3 mg/dL Normal 0.2-1.3 [facility] Comment on above: Order Comment: Speci men Type: BLOOD SPECIMENOrdering Facility: [facility] Address: [address] [place] [address] Performed By: #### 2 276-, 1987-09, ####[facility] LABCLIA [id number] [address] [address] [place] Calcium [Mass/Vol] 9.7 mg/dL Normal 8.5-10.2 [facility] Comment on above: Order Comment: Speci men Type: BLOOD SPECIMENOrdering Facility: [facility] Address: [address] [place], [place] [address] Performed By: #### 2 276-, 1987-09, ####[facility] LABCLIA [id number] [address] [address] [place] Chloride [Moles/Vol] 105 mmol/L Normal 98-107 [facility] Comment on above: Order Comment: Speci men Type: BLOOD SPECIMENOrdering Facility: [facility] Address: [address] [place] [address] Performed By: #### 2 276-4, 1987-09, ####[facility]GIFF[facility] [id number] [place] [address] [place] CO2 [Moles/Vol] 23 mmol/L Normal 22-30 [facility] Comment on above: Order Comment: Speci men Type: BLOOD SPECIMENOrdering Facility: [facility] Address: [address] [place] [address] Performed By: #### 2 276-4, 1987-09, ####[facility] [id number] [place] [address] [place] Creatinine [Mass/Vol] 0.61 mg/dL Normal 0.58-0.96 [facility] Comment on above: Order Comment: Speci men Type: BLOOD SPECIMENOrdering Facility: [facility] Address: [address] [place] [address] Performed By: #### 2 276-4, 1987-09, ####[facility] [id number] [place] [address] [place] Creatinine and Glomerular filtration rate.predicted panel (S/P/Bld) 127 mL/min/1.73m??? Normal >=60 [facility] Comment on above: Order Comment: Speci men Type: BLOOD SPECIMENOrdering Facility: [facility] Address: [address] [place] [address] Result Comment: Edwige mated Glomerular Filtration Rate [...] reflect actual GFR. Performed By: #### 2 276, ####[facility] LABCLIA [id number] [employer]ub[employer] GuidecentralDESK [id number], [place] [address] [place] Glucose [Mass/Vol] 88 mg/dL Normal 74-99 [facility] Comment on above: Order Comment: Ronnie alonzo Type: BLOOD SPECIMENOrdering Facility: [facility] Address: [address] [place] [address] Result Comment: The [place] [employer] (ADA) provides guidance for cutoff [...] Standards of Medical Care in Diabetes 2016, [place] [employer]. Diabetes Care. 2016.39(Suppl 1). Performed By: #### 2 276, ####[facility] LABCLIA [id number] BetKlubDigeratiSUTTER AUBURN FAITH HOSPITALK [id number], [place] [address] [place] Potassium [Moles/Vol] 3.9 mmol/L Normal 3.7-5.1 [facility] Comment on above: Order Comment: Ronnie alonzo Type: BLOOD SPECIMENOrdering Facility: [facility] Address: [address] [place] [address] Performed By: #### 2 276, 1987-09, ####[facility] LABCLIA [id number] [employer] Guide[id number], [place] [address] [place] Protein [Mass/Vol] 7.8 g/dL Normal 6.3-8.0 [facility] Comment on above: Order Comment: Speci men Type: BLOOD SPECIMENOrdering Facility: [facility] Address: [address] [place] [address] Performed By: #### 2 276-4, 1987-09, ####[facility] LABCLIA [id number] [address] [place] [address] [place] Sodium [Moles/Vol] 141 mmol/L Normal 136-144 [facility] Comment on above: Order Comment: Speci men Type: BLOOD SPECIMENOrdering Facility: [facility] Address: [address] [place] [address] Performed By: #### 2 276-, 1987-09, ####[facility] LABCLIA [id number] [address] [place] [address] [place] Urea nitrogen [Mass/Vol] 12 mg/dL Normal 7-21 [facility] Comment on above: Order Comment: Speci men Type: BLOOD SPECIMENOrdering Facility: [facility] Address: [address] [place] [address] Performed By: #### 2 276-4, 1987-09, ####[facility] LABCLIA [id number] [address] [place] [address] [place] Cryptoc Ag Spec Ql LAon 07-20 Cryptococcus sp Ag LA Ql (Unsp spec) CRYPTOCOCCUS ANTIGEN : Cryptococcal Antigen NOT DETECTED by Lateral flow immunoassay. Normal [facility] Comment on above: Performed By: #### 4 3228-6 ####[facility] LABCLIA [id number] [address] [place] [address] [place] Dion 08-13-2024 Ferritin [Mass/Vol] 48.0 ng/mL Normal 8.0-252.0 [facility] Comment on above: Performed By: #### Puneet , [facility] #### [address] [address] FESon 08-13-2024 Iron [Mass/Vol] 66 ug/dL Normal 50-170 [facility] Comment on above: Performed By: #### G FR, BMP #### [address] [address] Iron Sat 19 % Normal [facility] Comment on above: Performed By: #### G FR, BMP #### [address] [address] TIBC 340 mcg/dL Normal 250-450 [facility] Comment on above: Performed By: #### G FR, BMP #### [address] [address] FOLon 08-13-2024 Folate 10.98 ng/mL Normal 5.38-24.00 [facility] Comment on above: Performed By: #### G FR, BMP #### [address] [address] Ferritin SerPl-mCncon 2024 Ferritin [Mass/Vol] 55.5 ng/mL Normal 14.7-205.1 [facility] Comment on above: Order Comment: Speci men Type: BLOOD SPECIMENOrdering Facility: [facility] Address: [address] [place] [address] Performed By: #### 2 276-4, 1987-5, 90325-7 ####[facility] LABCLIA [id number] [address] [place] INSLNon 08-13-2024 Insulin 9.28 munit/L Normal 2.60-37.60 [facility] Comment on above: Performed By: #### G FR, BMP #### Linda [address] [address] CBC W/Diff, Automatedon 07-20 Absolute Lymph 1.58 X10 3/uL Normal 0.83-4.51 [facility] Comment on above: Performed By: #### L 300.3900, L300.4310, L100.0100 #### [facility] [address] [place], [address] Absolute Neut 4.0 X10 3/uL Normal 2.0-7.7 [facility] Comment on above: Performed By: #### L 300.3900, L300.4310, L100.0100 #### [facility] [address] [place], [address] Basophils/100 WBC (Bld) 0.3 % Normal 0-1 [facility] Comment on above: Performed By: #### L 300.3900, L300.4310, L100.0100 #### [facility] [address] [place], [address] Eosinophils/100 WBC (Bld) 1.6 % Normal 0-5 [facility] Comment on above: Performed By: #### L 300.3900, L300.4310, L100.0100 #### [facility] [address] [place], [address] Erythrocyte distribution width (RBC) [Ratio] 13.2 % Normal 11.6-14.6 [facility] Comment on above: Performed By: #### L 300.3900, L300.4310, L100.0100 #### [facility] [address] [place], [address] Hematocrit (Bld) [Volume fraction] 34.2 % Low 37-47 [facility] Comment on above: Performed By: #### L 300.3900, L300.4310, L100.0100 #### [facility] [address] [place], [address] Hemoglobin (Bld) [Mass/Vol] 10.8 g/dL Low 12.0-15.0 [facility] Comment on above: Performed By: #### L 300.3900, L300.4310, L100.0100 #### [facility] [address] [place], [address] IG% 0.200 Normal 0.0-0.9 [facility] Comment on above: Result Comment: IG% - Immature Granulocytes (promyelocytes, myelocytes and metamyelocytes) > 1% indicates that a LEFT SHIFT is Present. Performed By: #### L 300.3900, L300.4310, L100.0100 #### [facility] [address] [place], [address] Lymphocytes/100 WBC (Bld) 25.6 % Normal 19-41 [facility] Comment on above: Performed By: #### L 300.3900, L300.4310, L100.0100 #### [facility] [address] [place], [address] MCH (RBC) [Entitic mass] 27.8 pg Normal 27.0-32.0 [facility] Comment on above: Performed By: #### L 300.3900, L300.4310, L100.0100 #### [facility] [address] [place], [address] MCHC (RBC) [Mass/Vol] 31.6 g/dL Low 32-36 [facility] Comment on above: Performed By: #### L 300.3900, L300.4310, L100.0100 #### [facility] [address] [place], [address] MCV (RBC) [Entitic vol] 88.1 fL Normal 81-99 [facility] Comment on above: Performed By: #### L 300.3900, L300.4310, L100.0100 #### [facility] [address] [place], [address] Monocytes/100 WBC (Bld) 7.5 % Normal 0-10 [facility] Comment on above: Performed By: #### L 300.3900, L300.4310, L100.0100 #### [facility] [address] [place], [address] Neutrophils/100 WBC (Bld) 64.8 % Normal 47-70 [facility] Comment on above: Performed By: #### L 300.3900, L300.4310, L100.0100 #### [facility] [address] [place], [address] Nucleated RBC (Bld) [#/Vol] 0 10*3/uL Normal 0-5 [facility] Comment on above: Performed By: #### L 300.3900, L300.4310, L100.0100 #### [facility] [address] [place], [address] Platelet mean volume (Bld) [Entitic vol] 10.7 fL Normal 6.2-12.0 [facility] Comment on above: Performed By: #### L 300.3900, L300.4310, L100.0100 #### [facility] [address] [place], [address] Platelets (Bld) [#/Vol] 263 10*3/uL Normal 150-450 [facility] Comment on above: Performed By: #### L 300.3900, L300.4310, L100.0100 #### [facility] [address] [place], [address] RBC (Bld) [#/Vol] 3.88 10*6/uL Low 4.2-5.4 [facility] Comment on above: Performed By: #### L 300.3900, L300.4310, L100.0100 #### [facility] [address] [place], [address] RDW SD 42.5 fl Normal 35.1-43.9 [facility] Comment on above: Performed By: #### L 300.3900, L300.4310, L100.0100 #### [facility] [address] [place], [address] WBC (Bld) [#/Vol] 6.2 10*3/uL Normal 4.4-11.0 [facility] Comment on above: Performed By: #### L 300.3900, L300.4310, L100.0100 #### [facility] [address] [place], [address] Gastroenterology Visit Repor ton 08-11-2024 Gastroenterology Visit Report [facility] [address] [place] [address] OFFICE VISIT Date of Service: 08/11/24 MR#: [id number] Acct: [id number] Name: MATT CALABRESE Rep #: [id number] : 2000 Provider: LENA tate Age/Sex: 24/F Location: [facility] Status: Signed Intake Vital Signs 07/16/24 19:45 08/11/24 08:29 Height 5 ft 3 in 5 ft 3 in Weight: 217 lb 4 oz BMI 38.5 BP 102/69 Respiration 16 Pulse 89 Pulse Oximetry (%) 96 Oxygen Delivery Method room air Intake Visit Reasons: Abdominal pain Chief Complaint: follow-up Instructor Technical Training Required: No Is patient in pain?: Yes [...] hydrocortisone 2.5 % topical cream 1 applic VT QD-BID PRN rectal pa in 07/10/24 08/11/24 [...] work-up including abnormal Esophagram was performed at [facility]. She denies any improvement with ST or pantoprazole 40mg daily. I have provided her a referral to Dr. Dario Davis at [facility]. In terms of diarrhea and rectal [...] and follow- (more content not included)... Normal [facility] Partial Thromboplast Timeon 08-11-2024 aPTT Coag (Bld) [Time] 24.6 s Normal 24.1-36.2 [facility] Comment on above: Performed By: #### L 300.3900, L300.4310, L100.0100 #### [facility] [address] [place], [address] Prothrombin Time w/INRon INR Coag (PPP) [Relative time] 0.9 {INR} Normal [facility] Comment on above: Performed By: #### L 300.3900, L300.4310, L100.0100 #### [facility] [address] [place], [address] PT Coag (PPP) [Time] 12.8 s Normal 11.7-14.9 [facility] Comment on above: Performed By: #### L 300.3900, L300.4310, L100.0100 #### [facility] [address] [place], [address] Abdomen Limitedon 08-08-2024 Abdomen Limited [facility] [address] [place] [address] Abdomen Limited MR#: [id number] Acct: [id number] Name: MATT CALABRESE HELIO Rep #: [id number] : 2000 F 24 From: Jaylon Kessler MD PCP: LENA Beatty Status: REG CLI Study: Abdomen Limited Date of Exam: 08/08/24 Exam# [id number] Ordering Dr: Marquita Chavez [employer]- Naresh PROCEDURE: ABDOMEN LIMITED (USABDL), 08/08/2024 REASON FOR [...] 2. Additional description as above. Reading Location: [facility] CC: LENA Priest; LENA Chavez 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: Signed Normal [facility] CBC W Auto Differential pane l (Bld)on 08-06-2024 Basophils (Bld) [#/Vol] 0.03 10*3/uL Normal <0.11 [facility] Comment on above: Order Comment: Speci men Type: BLOOD SPECIMENOrdering Facility: [facility] Address: [address] [place] [address] Performed By: #### 5 7021-8 ####[facility] MILLWNCLIA [id number] [place] [address] [place] Basophils/100 WBC (Bld) 0.4 % Normal [facility] Comment on above: Order Comment: Speci men Type: BLOOD SPECIMENOrdering Facility: [facility] Address: [address] [place] [address] Performed By: #### 5 7021-8 ####[facility] MIAMINCLIA [id number] [place] [address] [place] Differential cell count method Nom (Bld) Auto Normal [facility] Comment on above: Order Comment: Speci men Type: BLOOD SPECIMENOrdering Facility: [facility] Address: [address] [place] [address] Performed By: #### 5 7021-8 ####[facility] MILLWNCLIA [id number] [place] [address] [place] Eosinophils (Bld) [#/Vol] 0.07 10*3/uL Normal <0.46 [facility] Comment on above: Order Comment: Speci men Type: BLOOD SPECIMENOrdering Facility: [facility] Address: [address] [place] [address] Performed By: #### 5 7021-8 ####[facility]INCLIA [id number] [place] [address] [place] Eosinophils/100 WBC (Bld) 1.0 % Normal [facility] Comment on above: Order Comment: Speci men Type: BLOOD SPECIMENOrdering Facility: [facility] Address: [address] [place] [address] Performed By: #### 5 7021-8 ####[facility] [id number] [place] [address] [place] Erythrocyte distribution width (RBC) [Ratio] 13.0 % Normal 11.5-15.0 [facility] Comment on above: Order Comment: Speci men Type: BLOOD SPECIMENOrdering Facility: [facility] Address: [address] [place] [address] Performed By: #### 5 7021-8 ####[facility] [id number] [place] [address] [place] Hematocrit (Bld) [Volume fraction] 36.5 % Normal 36.0-46.0 [facility] Comment on above: Order Comment: Speci men Type: BLOOD SPECIMENOrdering Facility: [facility] Address: [address] [place] [address] Performed By: #### 5 7021-8 ####[facility] [id number] [place] [address] [place] Hemoglobin (Bld) [Mass/Vol] 11.3 g/dL Low 11.5-15.5 [facility] Comment on above: Order Comment: Speci men Type: BLOOD SPECIMENOrdering Facility: [facility] Address: [address] [place], [place] [address] Performed By: #### 5 7021-8 ####[facility]AMINCLI [id number] [place] [address] [place] Immature granulocytes (Bld) [#/Vol] 10*3/uL Normal <0.10 [facility] Comment on above: Order Comment: Speci men Type: BLOOD SPECIMENOrdering Facility: [facility] Address: [address] [place] [address] Performed By: #### 5 7021-8 ####[facility] GEOFFREYAPOLINARA [id number] [place] [address] [place] Immature granulocytes/100 WBC (Bld) 0.3 % Normal [facility] Comment on above: Order Comment: Speci men Type: BLOOD SPECIMENOrdering Facility: [facility] Address: [address] [place] [address] Performed By: #### 5 7021-8 ####[facility] MIAMISOPHIA [id number] [place] [address] [place] Lymphocytes (Bld) [#/Vol] 2.00 10*3/uL Normal 1.00-4.00 [facility] Comment on above: Order Comment: Speci men Type: BLOOD SPECIMENOrdering Facility: [facility] Address: [address] [place] [address] Performed By: #### 5 7021-8 ####[facility] [id number] [place] [address] [place] Lymphocytes/100 WBC (Bld) 27.7 % Normal [facility] Comment on above: Order Comment: Speci men Type: BLOOD SPECIMENOrdering Facility: [facility] Address: [address] [place] [address] Performed By: #### 5 7021-8 ####[facility] [id number] [place] [address] [place] MCH (RBC) [Entitic mass] 27.7 pg Normal 26.0-34.0 [facility] Comment on above: Order Comment: Speci men Type: BLOOD SPECIMENOrdering Facility: [facility] Address: [address] [place] [address] Performed By: #### 5 7021-8 ####[facility] [id number] [place] [address] [place] MCHC (RBC) [Mass/Vol] 31.0 g/dL Normal 30.5-36.0 [facility] Comment on above: Order Comment: Speci men Type: BLOOD SPECIMENOrdering Facility: [facility] Address: [address] [place] [address] Performed By: #### 5 7021-8 ####[facility] [id number] [place] [address] [place] MCV (RBC) [Entitic vol] 89.5 fL Normal 80.0-100.0 [facility] Comment on above: Order Comment: Speci men Type: BLOOD SPECIMENOrdering Facility: [facility] Address: [address] [place] [address] Performed By: #### 5 7021-8 ####[facility] [id number] [place] [address] [place] Monocytes (Bld) [#/Vol] 0.62 10*3/uL Normal <0.87 [facility] Comment on above: Order Comment: Speci men Type: BLOOD SPECIMENOrdering Facility: [facility] Address: [address] [place] [address] Performed By: #### 5 7021-8 ####[facility] [id number] [place] [address] [place] Monocytes/100 WBC (Bld) 8.6 % Normal [facility] Comment on above: Order Comment: Speci men Type: BLOOD SPECIMENOrdering Facility: [facility] Address: [address] [place] [address] Performed By: #### 5 7021-8 ####[facility]INCLI [id number] [place] [address] [place] Neutrophils (Bld) [#/Vol] 4.48 10*3/uL Normal 1.45-7.50 [facility] Comment on above: Order Comment: Speci men Type: BLOOD SPECIMENOrdering Facility: [facility] Address: [address] [place] [address] Performed By: #### 5 7021-8 ####[facility] HOSPITALWNCLIA [id number] [place] [address] [place] Neutrophils/100 WBC (Bld) 62.0 % Normal [facility] Comment on above: Order Comment: Speci men Type: BLOOD SPECIMENOrdering Facility: [facility] Address: [address] [place] [address] Performed By: #### 5 7021-8 ####[facility] [id number] [place] [address] [place] Nucleated RBC (Bld) [#/Vol] 10*3/uL Normal <0.01 [facility] Comment on above: Order Comment: Speci men Type: BLOOD SPECIMENOrdering Facility: [facility] Address: [address] [place] [address] Performed By: #### 5 7021-8 ####[facility] [id number] [place] [address] [place] Nucleated RBC/100 WBC (Bld) [Ratio] 0.0 /100 WBC Normal [facility] Comment on above: Order Comment: Speci men Type: BLOOD SPECIMENOrdering Facility: [facility] Address: [address] [place] [address] Performed By: #### 5 7021-8 ####[facility] [id number] [place] [address] [place] Platelet mean volume (Bld) [Entitic vol] 9.7 fL Normal 9.0-12.7 [facility] Comment on above: Order Comment: Speci men Type: BLOOD SPECIMENOrdering Facility: [facility] Address: [address] [place] [address] Performed By: #### 5 7021-8 ####[facility] MOLLYNCLIA [id number] [place] [address] [place] Platelets (Bld) [#/Vol] 327 10*3/uL Normal 150-400 [facility] Comment on above: Order Comment: Speci men Type: BLOOD SPECIMENOrdering Facility: [facility] Address: [address] [place] [address] Performed By: #### 5 7021-8 ####[facility]CL[facility] [id number] [place] [address] [place] RBC (Bld) [#/Vol] 4.08 10*6/uL Normal 3.90-5.20 [facility] Comment on above: Order Comment: Speci men Type: BLOOD SPECIMENOrdering Facility: [facility] Address: [address] [place] [address] Performed By: #### 5 7021-8 ####[facility]INCL[facility] [id number] [place] [address] [place] WBC (Bld) [#/Vol] 7.22 10*3/uL Normal 3.70-11.00 [facility] Comment on above: Order Comment: Speci men Type: BLOOD SPECIMENOrdering Facility: [facility] Address: [address] [place] [address] Performed By: #### 5 7021-8 ####[facility]INCLIA [id number] [place] [address] [place] Comprehensive metabolic 2000 panelon 08-06-2024 Albumin [Mass/Vol] 4.2 g/dL Normal 3.9-4.9 [facility] Comment on above: Order Comment: Speci men Type: BLOOD SPECIMENOrdering Facility: [facility] Address: [address] [place] [address] Performed By: #### 2 4323-8 ####[facility] MILLTOWNCLIA [id number] [place] [address] [place] ALP [Catalytic activity/Vol] 73 U/L Normal 34-123 [facility] Comment on above: Order Comment: Speci men Type: BLOOD SPECIMENOrdering Facility: [facility] Address: [address] [place] [address] Performed By: #### 2 4323-8 ####[facility] MILLTOWNCLIA [id number] [place] [address] [place] ALT [Catalytic activity/Vol] 41 U/L High 7-38 [facility] Comment on above: Order Comment: Speci men Type: BLOOD SPECIMENOrdering Facility: [facility] Address: [address] [place] [address] Performed By: #### 2 4323-8 ####[facility] MILLTOWNCLIA [id number] [place] [address] [place] Anion gap [Moles/Vol] 10 mmol/L Normal 8-15 [facility] Comment on above: Order Comment: Speci men Type: BLOOD SPECIMENOrdering Facility: [facility] Address: [address] [place] [address] Performed By: #### 2 4323-8 ####[facility] MILLTOWNCLIA [id number] [place] [address] [place] AST [Catalytic activity/Vol] 32 U/L Normal 13-35 [facility] Comment on above: Order Comment: Speci men Type: BLOOD SPECIMENOrdering Facility: [facility] Address: [address] [place] [address] Performed By: #### 2 4323-8 ####[facility] MILLTOWNCLIA [id number] [place] [address] [place] Bilirubin [Mass/Vol] mg/dL Low 0.2-1.3 [facility] Comment on above: Order Comment: Speci men Type: BLOOD SPECIMENOrdering Facility: [facility] Address: [address] [place] [address] Performed By: #### 2 4323-8 ####[facility] [id number] [place] [address] [place] Calcium [Mass/Vol] 9.6 mg/dL Normal 8.5-10.2 [facility] Comment on above: Order Comment: Speci men Type: BLOOD SPECIMENOrdering Facility: [facility] Address: [address] [place] [address] Performed By: #### 2 4323-8 ####[facility] [id number] [place] [address] [place] Chloride [Moles/Vol] 103 mmol/L Normal 98-107 [facility] Comment on above: Order Comment: Speci men Type: BLOOD SPECIMENOrdering Facility: [facility] Address: [address] [place] [address] Performed By: #### 2 4323-8 ####[facility]CL[facility] [id number] [place] [address] [place] CO2 [Moles/Vol] 26 mmol/L Normal 22-30 [facility] Comment on above: Order Comment: Speci men Type: BLOOD SPECIMENOrdering Facility: [facility] Address: [address] [place], [place] [address] Performed By: #### 2 4323-8 ####[facility] [id number] [place] [address] [place] Creatinine [Mass/Vol] 0.72 mg/dL Normal 0.58-0.96 [facility] Comment on above: Order Comment: Speci men Type: BLOOD SPECIMENOrdering Facility: [facility] Address: [address] [place] [address] Performed By: #### 2 4323-8 ####[facility] [id number] [place] [address] [place] Creatinine and Glomerular filtration rate.predicted panel (S/P/Bld) 119 mL/min/1.73m??? Normal >=60 [facility] Comment on above: Order Comment: Ronnie alonzo Type: BLOOD SPECIMENOrdering Facility: [facility] Address: [address] [place] [address] Result Comment: Edwige mated Glomerular Filtration Rate [...] actual GFR. Performed By: #### 2 4323-8 ####[facility] [id number] [place] [address] [place] Glucose [Mass/Vol] 107 mg/dL High 74-99 [facility] Comment on above: Order Comment: Ronnie alonzo Type: BLOOD SPECIMENOrdering Facility: [facility] Address: [address] [place] [address] Result Comment: The [place] [employer] (ADA) provides guidance for cutoff [...] Standards of Medical Care in Diabetes 2016, [place] [employer]. Diabetes Care. 2016.39(Suppl 1). Performed By: #### 2 4323-8 ####[facility] MILLWNCLIA [id number] [place] [address] [place] Potassium [Moles/Vol] 4.6 mmol/L Normal 3.7-5.1 [facility] Comment on above: Order Comment: Speci men Type: BLOOD SPECIMENOrdering Facility: [facility] Address: [address] [place] [address] Performed By: #### 2 4323-8 ####[facility] [id number] [place] [address] [place] Protein [Mass/Vol] 7.7 g/dL Normal 6.3-8.0 [facility] Comment on above: Order Comment: Speci men Type: BLOOD SPECIMENOrdering Facility: [facility] Address: [address] [place] [address] Performed By: #### 2 4323-8 ####[facility] [id number] [place] [address] [place] Sodium [Moles/Vol] 139 mmol/L Normal 136-144 [facility] Comment on above: Order Comment: Speci men Type: BLOOD SPECIMENOrdering Facility: [facility] Address: [address] [place] [address] Performed By: #### 2 4323-8 ####[facility] [id number] [place] [address] [place] Urea nitrogen [Mass/Vol] 11 mg/dL Normal 7-21 [facility] Comment on above: Order Comment: Speci men Type: BLOOD SPECIMENOrdering Facility: [facility] Address: [address] [place] [address] Performed By: #### 2 4323-8 ####[facility]INCLIA [id number] [place] [address] [place] Fungus identified Nom (Isol) Ordered By: Yessica Muñoz on 08-06-2024 Aspergillus sp Ab Immune diff Ql (S) Negative Negative [facility] Comment on above: Aspergillus antibody test by immunodiffusion may be used as an aid in diagnosis of chronic pulmonary aspergillosis including chronic cavitary pulmonary aspergillosis and chronic fibrosing pulmonary aspergillosis. Immunodiffusion test is more specific but less sensitive than complement fixation test. Clinical correlation is required. B. dermatitidis Ab Immune diff Ql (S) Negative Negative [facility] Comment on above: Blastomyces antibody test by Immunodiffusion may be used as an aid in diagnosis of infection with the dimorphic fungus Blastomyces dermatitidis. Blastomyces serology has low overall diagnostic sensitivity especially with localized disease. Immunodiffusion test is more specific but less sensitive than complement fixation test. Clinical and epidemiological correlation is required. Coccidioides sp Ab Immune diff Ql (S) Negative Negative [facility] Comment on above: Coccidioides antibod y test [...] Immune diff Ql (S) Positive Abnormal Negative [facility] Comment on above: Histoplasma antibody test by Immunodiffusion may be used as an aid in diagnosis of infection with the dimorphic fungus Histoplasma capsulatum. Histoplasma antibody test has low overall diagnostic sensitivity especially with localized disease. Immunodiffusion test is more specific but less sensitive than complement fixation test. Clinical and epidemiological correlation is required. Interpretation and review of laboratory results Abnormal [facility] Reviewed by Krystian Farooq, Ph.D, D(ABMLI) [facility] ITRACONAZOLE BLOODon 025 HYDROXYITRACONAZOLE 1.3 ug/mL Normal [facility] Comment on above: Order Comment: Speci men Type: BLOOD SPECIMENOrdering Facility: [facility] Address: [address] [place] [address] Result Comment: Rang es are based on [...] of Aspergillosis and Candidiasis and consultation from [facility]'s Department of Infectious Disease.Reference ranges and high/low indicator flags are provided as general guidelines only. The treating physician must determine appropriate target levels/dosing based on the specific clinical situation.This test was developed, and its performance characteristics determined by the [facility] Department of Pathology and Laboratory Medicine. It has not been cleared or approved by the FDA. The [facility] Department of Pathology and Laboratory Medicine is regulated under CLIA as qualified to perform high-complexity testing. This test is used for clinical purposes. It should not be regarded as investigational or for research. Performed By: #### I TRAC ####[facility] LABIA [id number] [place] [address] [place] ITRACONAZOLE BLD 0.7 ug/mL Normal 0.6-2.9 [facility] Comment on above: Order Comment: Speci men Type: BLOOD SPECIMENOrdering Facility: [facility] Address: [address] [place] [address] Performed By: #### I TRAC ####[facility] [id number] [place] [address] [place] HISTOPLASMA AG URINEOrdered By: Marquita Spangler on 08-04-2024 H. capsulatum Ag (U) [Mass/Vol] ng/mL NINF - 0.2 ng/mL [facility] H. capsulatum Ag IA Ql (U) Negative Negative [facility] Comment on above: Histoplasma galactom gibran antigen, urine test is used as an aid in diagnosing histoplasmosis. A negative result cannot rule out infection. Low positive results may at times be due to cross-reactivity with Blastomyces, Talaromyces marneffei, Paracoccidioides, and some Maria Elena species. Clinical radiological, and epidemiological correlation is required. Interpretation and review of laboratory results Normal [facility] BLOOD TB SCREENon 08-01-2024 M. tuberculosis tuberculin stim IFN-g Ql (Bld) Negative [facility] Mitogen minus Nil - PINF [facility] TB Gamma Interpretation Infection with M. tuberculosis complex is unlikely. If latent tuberculosis infection is highly suspected, a negative result does not rule out the infection. Specimens from immunocompromised patients and those <5 years of age may show false negative results. In case of a contact investigation, please repeat 8-12 weeks after a known exposure. [facility] TB Nil 0.01 NINF [facility] TB1 Ag minus Nil 0.01 [facility] TB2 Ag minus Nil 0 [facility] IMMUNOGLOBULINS,IGG,IGA,IGMo n 08-01-2024 IgA [Mass/Vol] 219 mg/dL 70 - 400 mg/dL [facility] IgG [Mass/Vol] 1147 mg/dL 700 - 1600 mg/dL [facility] IgM [Mass/Vol] 100 mg/dL 40 - 230 mg/dL [facility] Interpretation and review of laboratory results Normal [facility] ITRACONAZOLE BLOODOrdered By : Jania Pike on 08-01-2024 Hydroxyitraconazole ug/mL ug/mL [facility] Comment on above: Ranges are based on [...] of Aspergillosis and Candidiasis and consultation from [facility]'s Department of Infectious Disease. Reference ranges and high/low indicator flags are provided as general guidelines only. The treating physician must determine appropriate target levels/dosing based on the specific clinical situation. This test was developed, and its performance characteristics determined by the [facility] Department of Pathology and Laboratory Medicine. It has not been cleared or approved by the FDA. The [facility] Department of Pathology and Laboratory Medicine is regulated under CLIA as qualified to perform high-complexity testing. This test is used for clinical purposes. It should not be regarded as investigational or for research. Interpretation and review of laboratory results Abnormal [facility] Itraconazole ug/mL Low 0.6 - 2.9 ug/mL [facility] HIV 1+2 Ab IA Qlon HIV 1 and 2 Ab IA.rapid Nom (S/P/Bld) [facility] Comment on above: Test not indicated. HIV 1+2 Ab+HIV1 p24 Ag IA Ql Non-Reactive Nonreactive [facility] HIV immunoassay testing algorithm interpretation (S/P/Bld) [Interp] [facility] Comment on above: No evidence of HIV-1 or HIV-2 infection. Should recent infection be suspected, repeat testing may be considered 2-3 weeks after this draw. [place] Rev. Code 3701.243(E): This information has been [...] release of HIV test results or diagnoses. [facility] IMMUNOGLOBULINS,IGG,IGA,IGMo n 07-31-2024 IgA [Mass/Vol] 219 mg/dL Normal 70-400 [facility] Comment on above: Order Comment: Speci men Type: BLOOD SPECIMENOrdering Facility: [facility] Address: [address] [place] [address] Performed By: #### S ERIMM ####[facility] LABCLIA [id number] [place] [address] [place] IgG [Mass/Vol] 1147 mg/dL Normal 700-1600 [facility] Comment on above: Order Comment: Speci men Type: BLOOD SPECIMENOrdering Facility: [facility] Address: [address] [place] [address] Performed By: #### S ERIMM ####[facility] LABCLIA [id number] [place] [address] [place] IgM [Mass/Vol] 100 mg/dL Normal 40-230 [facility] Comment on above: Order Comment: Speci men Type: BLOOD SPECIMENOrdering Facility: [facility] Address: [address] [place] [address] Performed By: #### S ERIMM ####[facility] LABCLIA [id number] [place] [address] [place] BLOOD TB SCREENon 07-30-2024 M. tuberculosis tuberculin stim IFN-g Ql (Bld) Negative Normal [facility] Comment on above: Order Comment: Speci men Type: BLOOD SPECIMEN [facility] Address: [address] [place] [address] Performed By: #### I NFTBP #### [facility] CLIA [id number] [address] [place] [address] [place] MITOGEN MINUS NIL >9.99 Normal >=0.50 [facility] Comment on above: Order Comment: Speci men Type: BLOOD SPECIMEN [facility] Address: [address] [place] [address] Performed By: #### I NFTBP #### [facility] CLIA [id number] [address] [place] [address] [place] TB GAMMA INTERPRETATION Infection with M. tuberculosis complex is unlikely. If latent tuberculosis infection is highly suspected, a negative result does not rule out the infection. Specimens from immunocompromised patients and those <5 years of age may show false negative results. In case of a contact investigation, please repeat 8-12 weeks after a known exposure. Normal [facility] Comment on above: Order Comment: Speci men Type: BLOOD SPECIMEN [facility] Address: [address] [place] [address] Performed By: #### I NFTBP #### [facility] CLIA [id number] [address] [place] [address] [place] TB NIL 0.01 IU/mL Normal <=8.00 [facility] Comment on above: Order Comment: Speci men Type: BLOOD SPECIMEN [facility] Address: [address] [place] [address] Performed By: #### I NFTBP #### [facility] CLIA [id number] [address] [place] [address] TB1 AG MINUS NIL 0.01 IU/mL Normal <0.35 [facility] Comment on above: Order Comment: Speci men Type: BLOOD SPECIMEN [facility] Address: [address] [place] [address] Performed By: #### I NFTBP #### [facility] CLIA [id number] [address] [place] [address] TB2 AG MINUS NIL 0.00 IU/mL Normal <0.35 [facility] Comment on above: Order Comment: Speci men Type: BLOOD SPECIMEN [facility] Address: [address] [place] [address] Performed By: #### I NFTBP #### [facility] CLIA [id number] [address] [place] [address] [place] C-REACTIVE PROTEINon 025 CRP [Mass/Vol] 3.3 mg/dL High NINF - 0.9 mg/dL [facility] CBC W Auto Differential pane l (Bld)on 07-30-2024 Basophils (Bld) [#/Vol] BANNERF [facility] Basophils/100 WBC (Bld) 0.2 % [facility] Differential cell count method Nom (Bld) Auto [facility] Eosinophils (Bld) [#/Vol] 0.08 10*3/uL [facility] Eosinophils/100 WBC (Bld) 0.9 % [facility] Erythrocyte distribution width (RBC) [Ratio] 12.4 % 11.5 - 15.0 % [facility] Hematocrit (Bld) [Volume fraction] 36.9 % 36.0 - 46.0 % [facility] Hemoglobin (Bld) [Mass/Vol] 11.3 g/dL Low 11.5 - 15.5 g/dL [facility] Immature granulocytes (Bld) [#/Vol] 0.07 10*3/uL [facility] Immature granulocytes/100 WBC (Bld) 0.8 % [facility] Interpretation and review of laboratory results Abnormal [facility] Lymphocytes (Bld) [#/Vol] 1.79 10*3/uL [facility] Lymphocytes/100 WBC (Bld) 20.6 % [facility] MCH (RBC) [Entitic mass] 27.1 pg 26.0 - 34.0 pg [facility] MCHC (RBC) [Mass/Vol] 30.6 g/dL 30.5 - 36.0 g/dL [facility] MCV (RBC) [Entitic vol] 88.5 fL 80.0 - 100.0 fL [facility] Monocytes (Bld) [#/Vol] 0.5 10*3/uL [facility] Monocytes/100 WBC (Bld) 5.7 % [facility] Neutrophils (Bld) [#/Vol] 6.24 10*3/uL [facility] Neutrophils/100 WBC (Bld) 71.8 % [facility] Nucleated RBC (Bld) [#/Vol] [facility] Nucleated RBC/100 WBC (Bld) [Ratio] 0 % /100 WBC [facility] Platelet mean volume (Bld) [Entitic vol] 9.6 fL 9.0 - 12.7 fL [facility] Platelets (Bld) [#/Vol] 450 10*3/uL High [facility] RBC (Bld) [#/Vol] 4.17 10*6/uL 3.90 - 5.2 0 m/uL [facility] WBC (Bld) [#/Vol] 8.7 10*3/uL [facility] Basophils (Bld) [#/Vol] 10*3/uL Normal <0.11 [facility] Comment on above: Order Comment: Speci men Type: BLOOD SPECIMEN [facility] Address: [address] [place] [id number] Performed By: #### 5 7021-8 #### [facility] CLIA [id number] [address] [place] [id number] [place] Basophils/100 WBC (Bld) 0.2 % Normal [facility] Comment on above: Order Comment: Speci men Type: BLOOD SPECIMEN [facility] Address: [address] [place] [address] Performed By: #### 5 7021-8 #### [facility] CLIA [id number] [address] [place] [address] [place] Differential cell count method Nom (Bld) Auto Normal [facility] Comment on above: Order Comment: Speci men Type: BLOOD SPECIMEN [facility] Address: [address] [place] [address] Performed By: #### 5 7021-8 #### [facility] CLIA [id number] [address] [place] [address] [place] Eosinophils (Bld) [#/Vol] 0.08 10*3/uL Normal <0.46 [facility] Comment on above: Order Comment: Speci men Type: BLOOD SPECIMEN Ordering Facility: [facility] Address: [address] [place] [address] Performed By: #### 5 7021-8 #### [facility] CLIA [id number] [address] [place] [address] [place] Eosinophils/100 WBC (Bld) 0.9 % Normal [facility] Comment on above: Order Comment: Speci men Type: BLOOD SPECIMEN Ordering Facility: [facility] Address: [address] [place] [address] Performed By: #### 5 7021-8 #### [facility] CLIA [id number] [address] [place] [address] [place] Erythrocyte distribution width (RBC) [Ratio] 12.4 % Normal 11.5-15.0 [facility] Comment on above: Order Comment: Speci men Type: BLOOD SPECIMEN Ordering Facility: [facility] Address: [address] [place] [address] Performed By: #### 5 7021-8 #### [facility] CLIA [id number] [address] [place] [address] [place] Hematocrit (Bld) [Volume fraction] 36.9 % Normal 36.0-46.0 [facility] Comment on above: Order Comment: Speci men Type: BLOOD SPECIMEN Ordering Facility: [facility] Address: [address] [place] [address] Performed By: #### 5 7021-8 #### [facility] CLIA [id number] [address] [place] [address] [place] Hemoglobin (Bld) [Mass/Vol] 11.3 g/dL Low 11.5-15.5 [facility] Comment on above: Order Comment: Speci men Type: BLOOD SPECIMEN Ordering Facility: [facility] Address: [address] [place] [address] Performed By: #### 5 7021-8 #### [facility] CLIA [id number] [address] [place] [address] [place] Immature granulocytes (Bld) [#/Vol] 0.07 10*3/uL Normal <0.10 [facility] Comment on above: Order Comment: Speci men Type: BLOOD SPECIMEN Ordering Facility: [facility] Address: [address] [place] [address] Performed By: #### 5 7021-8 #### [facility] CLIA [id number] [address] [place] [address] [place] Immature granulocytes/100 WBC (Bld) 0.8 % Normal [facility] Comment on above: Order Comment: Speci men Type: BLOOD SPECIMEN Ordering Facility: [facility] Address: [address] [place] [address] Performed By: #### 5 7021-8 #### [facility] CLIA [id number] [address] [place] [address] [place] Lymphocytes (Bld) [#/Vol] 1.79 10*3/uL Normal 1.00-4.00 [facility] Comment on above: Order Comment: Speci men Type: BLOOD SPECIMEN Ordering Facility: [facility] Address: [address] [place] [address] Performed By: #### 5 7021-8 #### [facility] CLIA [id number] [address] [place] [address] [place] Lymphocytes/100 WBC (Bld) 20.6 % Normal [facility] Comment on above: Order Comment: Speci men Type: BLOOD SPECIMEN Ordering Facility: [facility] Address: [address] [place] [address] Performed By: #### 5 7021-8 #### [facility] CLIA [id number] [address] [place] [address] [place] MCH (RBC) [Entitic mass] 27.1 pg Normal 26.0-34.0 [facility] Comment on above: Order Comment: Speci men Type: BLOOD SPECIMEN Ordering Facility: [facility] Address: [address] [place] [address] Performed By: #### 5 7021-8 #### [facility] CLIA [id number] [address] [place] [address] [place] MCHC (RBC) [Mass/Vol] 30.6 g/dL Normal 30.5-36.0 [facility] Comment on above: Order Comment: Speci men Type: BLOOD SPECIMEN Ordering Facility: [facility] Address: [address] [place] [address] Performed By: #### 5 7021-8 #### [facility] CLIA [id number] [address] [place] [address] [place] MCV (RBC) [Entitic vol] 88.5 fL Normal 80.0-100.0 [facility] Comment on above: Order Comment: Speci men Type: BLOOD SPECIMEN Ordering Facility: [facility] Address: [address] [place] [address] Performed By: #### 5 7021-8 #### [facility] CLIA [id number] [address] [place] [address] [place] Monocytes (Bld) [#/Vol] 0.50 10*3/uL Normal <0.87 [facility] Comment on above: Order Comment: Speci men Type: BLOOD SPECIMEN Ordering Facility: [facility] Address: [address] [place] [address] Performed By: #### 5 7021-8 #### [facility] CLIA [id number] [address] [place] [address] [place] Monocytes/100 WBC (Bld) 5.7 % Normal [facility] Comment on above: Order Comment: Speci men Type: BLOOD SPECIMEN Ordering Facility: [facility] Address: [address] [place] [address] Performed By: #### 5 7021-8 #### [facility] CLIA [id number] [address] [place] [address] [place] Neutrophils (Bld) [#/Vol] 6.24 10*3/uL Normal 1.45-7.50 [facility] Comment on above: Order Comment: Speci men Type: BLOOD SPECIMEN Ordering Facility: [facility] Address: [address] [place] [address] Performed By: #### 5 7021-8 #### [facility] CLIA [id number] [address] [place] [address] [place] Neutrophils/100 WBC (Bld) 71.8 % Normal [facility] Comment on above: Order Comment: Speci men Type: BLOOD SPECIMEN Ordering Facility: [facility] Address: [address] [place] [address] Performed By: #### 5 7021-8 #### [facility] CLIA [id number] [address] [place] [address] [place] Nucleated RBC (Bld) [#/Vol] 10*3/uL Normal <0.01 [facility] Comment on above: Order Comment: Speci men Type: BLOOD SPECIMEN Ordering Facility: [facility] Address: [address] [place] [address] Performed By: #### 5 7021-8 #### [facility] CLIA [id number] [address] [place] [address] [place] Nucleated RBC/100 WBC (Bld) [Ratio] 0.0 /100 WBC Normal [facility] Comment on above: Order Comment: Speci men Type: BLOOD SPECIMEN Ordering Facility: [facility] Address: [address] [place] [address] Performed By: #### 5 7021-8 #### [facility] CLIA [id number] [address] [place] [address] [place] Platelet mean volume (Bld) [Entitic vol] 9.6 fL Normal 9.0-12.7 [facility] Comment on above: Order Comment: Speci men Type: BLOOD SPECIMEN Ordering Facility: [facility] Address: [address] [place] [address] Performed By: #### 5 7021-8 #### [facility] CLIA [id number] [address] [place] [address] [place] Platelets (Bld) [#/Vol] 450 10*3/uL High 150-400 [facility] Comment on above: Order Comment: Speci men Type: BLOOD SPECIMEN Ordering Facility: [facility] Address: [address] [place] [address] Performed By: #### 5 7021-8 #### [facility] CLIA [id number] [address] [place] [address] [place] RBC (Bld) [#/Vol] 4.17 10*6/uL Normal 3.90-5.20 [facility] Comment on above: Order Comment: Speci men Type: BLOOD SPECIMEN Ordering Facility: [facility] Address: [address] [place] [address] Performed By: #### 5 7021-8 #### [facility] CLIA [id number] [address] [place] [address] [place] WBC (Bld) [#/Vol] 8.70 10*3/uL Normal 3.70-11.00 [facility] Comment on above: Order Comment: Speci men Type: BLOOD SPECIMEN Ordering Facility: [facility] Address: [address] [place] [address] Performed By: #### 5 7021-8 #### [facility] CLIA [id number] [address] [place] [address] [place] CNOVon 07-30-2024 CNOV Normal [facility] CRP SerPl-mCncon 07-30-2024 CRP [Mass/Vol] 3.3 mg/dL High <0.9 [facility] Comment on above: Order Comment: Ronnie alonzo Type: BLOOD SPECIMEN Ordering Facility: [facility] Address: [address] [place] [address] Performed By: #### 1 988-5, 94758-4 #### [facility] CLIA [id number] STATES OF [facility] Comprehensive metabolic 2000 panelon 07-30-2024 Albumin [Mass/Vol] 4 g/dL 3.9 - 4.9 g/dL [facility] ALP [Catalytic activity/Vol] 73 U/L 34 - 123 U/L [facility] ALT [Catalytic activity/Vol] 23 U/L 7 - 38 U/L [facility] Anion gap [Moles/Vol] 12 mmol/L 8 - 15 mmol/L [facility] AST [Catalytic activity/Vol] 25 U/L 13 - 35 U/L [facility] Bilirubin [Mass/Vol] mg/dL Low 0.2 - 1 .3 mg/dL [facility] Calcium [Mass/Vol] 9.8 mg/dL 8.5 - 10. 2 mg/dL [facility] Chloride [Moles/Vol] 103 mmol/L 98 - 10 7 mmol/L [facility] CO2 [Moles/Vol] 27 mmol/L 22 - 30 mmol/L [facility] Creatinine [Mass/Vol] 0.78 mg/dL 0.58 - 0.96 mg/dL [facility] GFR/1.73 sq M.predicted among non-blacks MDRD (S/P/Bld) [Vol rate/Area] 108 mL/min/{1.73_m2} - PINF [facility] Comment on above: Estimated Glomerular Filtration Rate [...] 107 mg/dL High 74 - 99 mg/dL [facility] Comment on above: The [place] Diabete s Association (ADA) provides guidance for [...] Standards of Medical Care in Diabetes 2016, [place] [employer] Association. Diabetes Care. 2016.39(Suppl 1). Potassium [Moles/Vol] 4.6 mmol/L 3.7 - 5.1 mmol/L [facility] Protein [Mass/Vol] 7.8 g/dL 6.3 - 8.0 g/dL [facility] Sodium [Moles/Vol] 142 mmol/L 136 - 144 mmol/L [facility] Urea nitrogen [Mass/Vol] 20 mg/dL 7 - 21 mg/dL [facility] Albumin [Mass/Vol] 4.0 g/dL Normal 3.9-4.9 [facility] Comment on above: Order Comment: Ronnie alonzo Type: BLOOD SPECIMEN Ordering Facility: [facility] Address: [address] [place] [address] Performed By: #### 1 988-5, 36142-6 #### [facility] CLIA [id number] [address] [place] [address] [place] ALP [Catalytic activity/Vol] 73 U/L Normal 34-123 [facility] Comment on above: Order Comment: Ronnie alonzo Type: BLOOD SPECIMEN Ordering Facility: [facility] Address: [facility] [place] [address] Performed By: #### 1 988-5, 91584-8 #### [facility] CLIA [id number] [address] [place] [address] [place] ALT [Catalytic activity/Vol] 23 U/L Normal 7-38 [facility] Comment on above: Order Comment: Speci men Type: BLOOD SPECIMEN Ordering Facility: [facility] Address: [address] [place] [id number] Performed By: #### 1 988-5, 46152-2 #### [facility] CLIA [id number] [address] [place] [address] [place] Anion gap [Moles/Vol] 12 mmol/L Normal 8-15 [facility] Comment on above: Order Comment: Speci men Type: BLOOD SPECIMEN Ordering Facility: [facility] Address: [address] [place] [address] Performed By: #### 1 988-5, #### [facility] CLIA [id number] [address] [place] [address] [place] AST [Catalytic activity/Vol] 25 U/L Normal 13-35 [facility] Comment on above: Order Comment: Speci men Type: BLOOD SPECIMEN Ordering Facility: [facility] Address: [address] [place] [address] Performed By: #### 1 988-5, 04163-2 #### [facility] CLIA [id number] [address] [place] [address] [place] Bilirubin [Mass/Vol] mg/dL Low 0.2-1.3 [facility] Comment on above: Order Comment: Speci men Type: BLOOD SPECIMEN Ordering Facility: [facility] Address: [address] [place] [address] Performed By: #### 1 988-5, 31151-9 #### [facility] CLIA [id number] [address] [place] [address] [place] Calcium [Mass/Vol] 9.8 mg/dL Normal 8.5-10.2 [facility] Comment on above: Order Comment: Speci men Type: BLOOD SPECIMEN Ordering Facility: [facility] Address: [address] [place] [address] Performed By: #### 1 988-5, 07052-6 #### [facility] CLIA [id number] [address] [place] [address] [place] Chloride [Moles/Vol] 103 mmol/L Normal 98-107 [facility] Comment on above: Order Comment: Ronnie alonzo Type: BLOOD SPECIMEN Ordering Facility: [facility] Address: [address] [place] [address] Performed By: #### 1 988-5, 35710-4 #### [facility] CLIA [id number] [address] [place] [address] [place] CO2 [Moles/Vol] 27 mmol/L Normal 22-30 [facility] Comment on above: Order Comment: Ronnie alonzo Type: BLOOD SPECIMEN Ordering Facility: [facility] Address: [address] [place] [address] Performed By: #### 1 988-5, 31870-9 #### [facility] CLIA [id number] [address] [place] [address] [place] Creatinine [Mass/Vol] 0.78 mg/dL Normal 0.58-0.96 [facility] Comment on above: Order Comment: Ronnie alonzo Type: BLOOD SPECIMEN Ordering Facility: [facility] Address: [address] [place] [address] Performed By: #### 1 988-5, 19137-5 #### [facility] CLIA [id number] [address] [place] [address] [place] Creatinine and Glomerular filtration rate.predicted panel (S/P/Bld) 108 mL/min/1.73m??? Normal >=60 [facility] Comment on above: Order Comment: Ronnie alonzo Type: BLOOD SPECIMEN Ordering Facility: [facility] Address: [address] [place] [address] Result Comment: Edwige mated Glomerular Filtration Rate [...] actual GFR. Performed By: #### 1 988-5, 25225-8 #### [facility] CLIA [id number] [address] [place] [address] [place] Glucose [Mass/Vol] 107 mg/dL High 74-99 [facility] Comment on above: Order Comment: Ronnie alonzo Type: BLOOD SPECIMEN Ordering Facility: [facility] Address: [address] [place] [address] Result Comment: The [place] Diabetes Association (ADA) provides guidance for cutoff [...] Standards of Medical Care in Diabetes 2016, [place] [employer] Association. Diabetes Care. 2016.39(Suppl 1). Performed By: #### 1 988-5, 98553-5 #### [facility] CLIA [id number] [address] [place] [address] [place] Potassium [Moles/Vol] 4.6 mmol/L Normal 3.7-5.1 [facility] Comment on above: Order Comment: Ronnie alonzo Type: BLOOD SPECIMEN Ordering Facility: [facility] Address: [address] [place] [address] Performed By: #### 1 988-5, 28504-2 #### [facility] CLIA [id number] [address] [place] [address] [place] Protein [Mass/Vol] 7.8 g/dL Normal 6.3-8.0 [facility] Comment on above: Order Comment: Ronnie men Type: BLOOD SPECIMEN Ordering Facility: [facility] Address: [address] [place] [address] Performed By: #### 1 988-5, 82473-2 #### [facility] CLIA [id number] [address] [place] [address] [place] Sodium [Moles/Vol] 142 mmol/L Normal 136-144 [facility] Comment on above: Order Comment: Ronnie alonzo Type: BLOOD SPECIMEN Ordering Facility: [facility] Address: [address] [place] [address] Performed By: #### 1 988-5, 21159-2 #### [facility] CLIA [id number] [address] [place] [address] [place] Urea nitrogen [Mass/Vol] 20 mg/dL Normal 7-21 [facility] Comment on above: Order Comment: Ronnie alonzo Type: BLOOD SPECIMEN Ordering Facility: [facility] Address: [address] [place] [address] Performed By: #### 1 988-5, 50769-5 #### [facility] CLIA [id number] [address] [place] [address] [place] ESR Westergren method (Bld) [Velocity]on 07-30-2024 ESR (Bld) [Velocity] 70 mm/h High [facility] Interpretation and review of laboratory results Abnormal [facility] ESR (Bld) [Velocity] 70 mm/h High 0-20 [facility] Comment on above: Order Comment: Ronnie alonzo Type: BLOOD SPECIMEN Ordering Facility: [facility] Address: [address] [place] [address] Performed By: #### 4 537-7 #### [facility] CLIA [id number] [address] [place] [address] [place] Fungus identified Nom (Isol) on 07-30-2024 Aspergillus sp Ab Immune diff Ql (S) Negative Normal Negative [facility] Comment on above: Order Comment: Ronnie alonzo Type: BLOOD SPECIMEN Ordering Facility: [facility] Address: [address] [place] [address] Result Comment: Aspe rgillus antibody test by immunodiffusion may be used as an aid in diagnosis of chronic pulmonary aspergillosis including chronic cavitary pulmonary aspergillosis and chronic fibrosing pulmonary aspergillosis. Immunodiffusion test is more specific but less sensitive than complement fixation test. Clinical correlation is required. Performed By: #### 4 2804-5 #### [facility] CLIA [id number] [address] [place] [address] [place] B. dermatitidis Ab Immune diff Ql (S) Negative Normal Negative [facility] Comment on above: Order Comment: Speci men Type: BLOOD SPECIMEN Ordering Facility: [facility] Address: [address] [place] [address] Result Comment: Ever tomyces antibody test by Immunodiffusion may be used as an aid in diagnosis of infection with the dimorphic fungus Blastomyces dermatitidis. Blastomyces serology has low overall diagnostic sensitivity especially with localized disease. Immunodiffusion test is more specific but less sensitive than complement fixation test. Clinical and epidemiological correlation is required. Performed By: #### 4 2804-5 #### [facility] CLIA [id number] [address] [place] [address] [place] Coccidioides sp Ab Immune diff Ql (S) Negative Normal Negative [facility] Comment on above: Order Comment: Speci men Type: BLOOD SPECIMEN Ordering Facility: [facility] Address: [address] [place] [address] Result Comment: Cocc idioides antibody test by Immunodiffusion may be used as an aid in diagnosis of infection with the dimorphic fungus Coccidioides spp. Cannot exclude acute infection if the specimen collected 4-6 weeks after onset of signs and symptoms. Immunodiffusion test is more specific but less sensitive than EIA test. Clinical and epidemiological correlation is required. Performed By: #### 4 2804-5 #### [facility] CLIA [id number] [address] [place] [address] [place] H. capsulatum Ab Immune diff Ql (S) Positive Abnormal Negative [facility] Comment on above: Order Comment: Speci men Type: BLOOD SPECIMEN Ordering Facility: [facility] Address: [address] [place] [address] Result Comment: Hist oplasma antibody test by Immunodiffusion may be used as an aid in diagnosis of infection with the dimorphic fungus Histoplasma capsulatum. Histoplasma antibody test has low overall diagnostic sensitivity especially with localized disease. Immunodiffusion test is more specific but less sensitive than complement fixation test. Clinical and epidemiological correlation is required. Performed By: #### 4 2804-5 #### [facility] CLIA [id number] [address] [place] [address] [place] HISTOPLASMA AG URINEon 07-30 H. capsulatum Ag (U) [Mass/Vol] <0.2 Normal <0.2 [facility] Comment on above: Order Comment: Speci men Type: URINE SPECIMEN Ordering Facility: [facility] Address: [address] [place] [address] Performed By: #### U HISTO #### [facility] CLIA [id number] [address] [place] [address] [place] H. capsulatum Ag IA Ql (U) Negative Normal Negative [facility] Comment on above: Order Comment: Speci men Type: URINE SPECIMEN Ordering Facility: [facility] Address: [address] [place] [address] Result Comment: Hist oplasma galactomannan antigen, urine test is used as an aid in diagnosing histoplasmosis. A negative result cannot rule out infection. Low positive results may at times be due to cross-reactivity with Blastomyces, Talaromyces marneffei, Paracoccidioides, and some Maria Elena species. Clinical radiological, and epidemiological correlation is required. Performed By: #### U HISTO #### [facility] CLIA [id number] [address] [place] [address] [place] HIV 1+2 Ab IA Qlon HIV 1 and 2 Ab IA.rapid Nom (S/P/Bld) Normal [facility] Comment on above: Order Comment: Speci men Type: BLOOD SPECIMEN Ordering Facility: [facility] Address: [address] [place] [address] Result Comment: Test not indicated. Performed By: #### 3 1201-7 #### [facility] CLIA [id number] [address] [place] [address] [place] HIV 1+2 Ab+HIV1 p24 Ag IA Ql Non-Reactive Normal Nonreactive [facility] Comment on above: Order Comment: Speci men Type: BLOOD SPECIMEN Ordering Facility: [facility] Address: [address] [place] [address] Performed By: #### 3 1201-7 #### [facility] [place] [id number] [address] [place] [address] [place] HIV immunoassay testing algorithm interpretation (S/P/Bld) [Interp] Normal [facility] Comment on above: Order Comment: Speci men Type: BLOOD SPECIMEN Ordering Facility: [facility] Address: [address] [place] [address] Result Comment: No e vidence of HIV-1 or HIV-2 infection. Should recent infection be suspected, repeat testing may be considered 2-3 weeks after this draw. [place] Rev. Code 3701.243(E): This information has been [...] diagnoses. Performed By: #### 3 1201-7 #### [facility] IA [id number] [address] [place] [address] [place] HbA1c (Bld)on 07-30-2024 Average glucose Estimated from glycated hemoglobin (Bld) [Mass/Vol] 123 mg/dL [facility] Comment on above: eAG: (Estimated aver age glucose) is a calculated value from HgbA1c and is outside dealer sales representative of the average blood glucose level in the last 2-3 month period. HbA1c (Bld) [Mass fraction] 5.9 % High 4.3 - 5.6 % [facility] Comment on above: [place] Diabetes As sociation guidelines indicate that patients with HgbA1c in the range 5.7-6.4% are at increased risk for development of diabetes, and intervention by lifestyle modification may be beneficial. HgbA1c greater or equal to 6.5% is considered diagnostic of diabetes. Interpretation and review of laboratory results Abnormal [facility] Average glucose Estimated from glycated hemoglobin (Bld) [Mass/Vol] 123 mg/dL Normal [facility] Comment on above: Order Comment: Ronnie alonzo Type: BLOOD SPECIMEN Ordering Facility: [facility] Address: [address] [place] [address] Result Comment: eAG: (Estimated average glucose) is a calculated value from HgbA1c and is outside dealer sales representative of the average blood glucose level in the last 2-3 month period. Performed By: #### 5 5454-3 #### [facility] CLIA [id number] [address] [place] [address] [place] HbA1c (Bld) [Mass fraction] 5.9 % High 4.3-5.6 [facility] Comment on above: Order Comment: Ronnie alonzo Type: BLOOD SPECIMEN Ordering Facility: [facility] Address: [address] [place] [address] Result Comment: [place] Diabetes Association guidelines indicate that patients with HgbA1c in the range 5.7-6.4% are at increased risk for development of diabetes, and intervention by lifestyle modification may be beneficial. HgbA1c greater or equal to 6.5% is considered diagnostic of diabetes. Performed By: #### 5 5454-3 #### [facility] CLIA [id number] [address] [place] [address] [place] ITRACONAZOLE BLOODon 025 HYDROXYITRACONAZOLE <0.2 Normal [facility] Comment on above: Order Comment: Ronnie alonzo Type: BLOOD SPECIMEN Ordering Facility: [facility] Address: [address] [place] [address] Result Comment: Rang es are based on [...] of Aspergillosis and Candidiasis and consultation from [facility]'s Department of Infectious Disease. Reference ranges and high/low indicator flags are provided as general guidelines only. The treating physician must determine appropriate target levels/dosing based on the specific clinical situation. This test was developed, and its performance characteristics determined by the [facility] Department of Pathology and Laboratory Medicine. It has not been cleared or approved by the FDA. The [facility] Department of Pathology and Laboratory Medicine is regulated under CLIA as qualified to perform high-complexity testing. This test is used for clinical purposes. It should not be regarded as investigational or for research. Performed By: #### I TRAC #### [facility] CLIA [id number] [address] [place] [address] [place] ITRACONAZOLE BLD <0.2 Low 0.6-2.9 [facility] Comment on above: Order Comment: Speci men Type: BLOOD SPECIMEN Ordering Facility: [facility] Address: [address] [place] [address] Performed By: #### I TRAC #### [facility] CLIA [id number] [address] [place] [address] [place] No Panel Informationon 07-30 Interpretation and review of laboratory results Abnormal [facility] CNPNon 07-28-2024 CNPN Normal [facility] .GFRon 07-26-2024 Estimated Glomerular Filtration Rate 103 ml/min/1.73sqm Normal [facility] Comment on above: Result Comment: Stages of [...] calculate the eGFR results. Performed By: #### Sukhjinder Moore, BERKLEY, BMP, GFR ####[address] [place], [place] [address] BMPon 07-26-2024 BUN/Creatinine Ratio 15 ratio Normal 7-27 [facility] Comment on above: Performed By: #### Sukhjinder Moore, HFP, BMP, GFR ####[address] [place], [place] [address] Calcium [Mass/Vol] 9.1 mg/dL Normal 8.4-10.2 [facility] Comment on above: Performed By: #### Sukhjinder Moore, HFP, BMP, GFR ####[address] [place], [place] [address] Chloride [Moles/Vol] 106 mmol/L Normal 98-107 [facility] Comment on above: Performed By: #### Sukhjinder Moore, HFP, BMP, GFR ####[address] [place], [place] [address] CO2 [Moles/Vol] 30 mmol/L High 22-29 [facility] Comment on above: Performed By: #### Sukhjinder Moore, HFP, BMP, GFR ####[address] [place], [place] [address] Creatinine [Mass/Vol] 0.81 mg/dL Normal 0.55-1.02 [facility] Comment on above: Result Comment: Test ing performed on Siemens Dimension EXL analyzer using a modified kinetic Stephanie technique. Performed By: #### M G, HFP, BMP, GFR ####[address] [place], [place] [address] Electrolyte Balance 6.0 mEq/L Normal 4.0-15.0 [facility] Comment on above: Performed By: #### Sukhjinder G, HFP, BMP, GFR ####[address] [place], [place] [address] Glucose [Mass/Vol] 102 mg/dL Normal 70-105 [facility] Comment on above: Performed By: #### Sukhjinder Moore, HFP, BMP, GFR ####[address] [place], [place] [address] Potassium [Moles/Vol] 3.8 mmol/L Normal 3.5-5.1 [facility] Comment on above: Performed By: #### M G, HFP, BMP, GFR ####[address] [place], [place] [address] Sodium [Moles/Vol] 142 mmol/L Normal 136-145 [facility] Comment on above: Performed By: #### M G, HFP, BMP, GFR ####[address] [place], [place] [address] Urea nitrogen [Mass/Vol] 12 mg/dL Normal 7-18 [facility] Comment on above: Performed By: #### M G, HFP, BMP, GFR ####[address] [place], [place] [address] HFPon 07-26-2024 Bili Indirect Unable to Calculate Normal [facility] Comment on above: Result Comment: Unab le to calculate this test result accurately. Results used to calculate this test are outside the reportable range. Performed By: #### M G, HFP, BMP, GFR ####[address] [place], [place] [address] Albumin Level 2.5 G/dL Low 3.5-5.0 [facility] Comment on above: Performed By: #### M G, HFP, BMP, GFR ####[address] [place], [place] [address] Albumin/Globulin [Mass ratio] 0.6 {ratio} Low 1.1-2.5 [facility] Comment on above: Performed By: #### M G, HFP, BMP, GFR ####[address] [place], [place] [address] ALP [Catalytic activity/Vol] 64 U/L Normal 40-135 [facility] Comment on above: Performed By: #### M G, HFP, BMP, GFR ####[address] [place], [place] [address] ALT [Catalytic activity/Vol] 17 U/L Normal 14-59 [facility] Comment on above: Performed By: #### M G, HFP, BMP, GFR ####[address] [place], [place] [address] AST [Catalytic activity/Vol] 14 U/L Normal 10-40 [facility] Comment on above: Performed By: #### M G, HFP, BMP, GFR ####[address] [place], [place] [address] Bili Direct <0.1 Normal 0.0-0.2 [facility] Comment on above: Result Comment: Use of this assay is not recommended for patients undergoing treatment with eltrombopag due to the potential for falsely elevated results. Performed By: #### M G, HFP, BMP, GFR ####[address] [address] Bili Total 0.2 mg/dL Normal 0.2-1.0 [facility] Comment on above: Result Comment: Use of this assay is not recommended for patients undergoing treatment with eltrombopag due to the potential for falsely elevated results. Performed By: #### M G, HFP, BMP, GFR ####[address] [address] Globulin 4.3 G/dL High 1.5-3.8 [facility] Comment on above: Performed By: #### M G, HFP, BMP, GFR ####[address] [place] [address] Total Protein 6.8 G/dL Normal 6.4-8.2 [facility] Comment on above: Performed By: #### M G, HFP, BMP, GFR ####[address] [place], [place] [address] MGon 07-26-2024 Magnesium [Mass/Vol] 2.3 mg/dL Normal 1.8-2.4 [facility] Comment on above: Performed By: #### M G, HFP, BMP, GFR ####[address] [place], [place] [address] .GFRon 07-25-2024 Estimated Glomerular Filtration Rate 111 ml/min/1.73sqm Normal [facility] Comment on above: Result Comment: Stages of [...] the eGFR results. Performed By: #### G FR, BMP, HFP #### [address] [address] BMPon 07-25-2024 BUN/Creatinine Ratio 13 ratio Normal 7-27 [facility] Comment on above: Performed By: #### G FR, BMP, HFP #### [address] [address] Calcium [Mass/Vol] 8.9 mg/dL Normal 8.4-10.2 [facility] Comment on above: Performed By: #### G FR, BMP, HFP #### [address] [address] Chloride [Moles/Vol] 105 mmol/L Normal 98-107 [facility] Comment on above: Performed By: #### G FR, BMP, HFP #### [address] [address] CO2 [Moles/Vol] 26 mmol/L Normal 22-29 [facility] Comment on above: Performed By: #### G FR, BMP, HFP #### [address] [address] Creatinine [Mass/Vol] 0.76 mg/dL Normal 0.55-1.02 [facility] Comment on above: Result Comment: Test ing performed on [employer] Dimension EXL analyzer using a modified kinetic Stephanie technique. Performed By: #### G FR, BMP, HFP #### [address] [address] Electrolyte Balance 9.0 mEq/L Normal 4.0-15.0 [facility] Comment on above: Performed By: #### G FR, BMP, HFP #### [address] [address] Glucose [Mass/Vol] 116 mg/dL High 70-105 [facility] Comment on above: Performed By: #### G FR, BMP, HFP #### [address] [address] Potassium [Moles/Vol] 3.7 mmol/L Normal 3.5-5.1 [facility] Comment on above: Performed By: #### G FR, BMP, HFP #### [address] [address] Sodium [Moles/Vol] 140 mmol/L Normal 136-145 [facility] Comment on above: Performed By: #### G FR, BMP, HFP #### [address] [address] Urea nitrogen [Mass/Vol] 10 mg/dL Normal 7-18 [facility] Comment on above: Performed By: #### G FR, BMP, HFP #### [address] [address] HFPon 07-25-2024 Bili Indirect Unable to Calculate Normal [facility] Comment on above: Result Comment: Unab le to calculate this test result accurately. Results used to calculate this test are outside the reportable range. Performed By: #### G FR, BMP, HFP #### [address] [address] Albumin Level 2.6 G/dL Low 3.5-5.0 [facility] Comment on above: Performed By: #### G FR, BMP, HFP #### [address] [address] Albumin/Globulin [Mass ratio] 0.6 {ratio} Low 1.1-2.5 [facility] Comment on above: Performed By: #### G , BMP, HFP #### [place] [address] ALP [Catalytic activity/Vol] 70 U/L Normal 40-135 [facility] Comment on above: Performed By: #### G , BMP, HFP #### [place] [address] ALT [Catalytic activity/Vol] 15 U/L Normal 14-59 [facility] Comment on above: Performed By: #### G , BMP, HFP #### [place] [address] AST [Catalytic activity/Vol] 14 U/L Normal 10-40 [facility] Comment on above: Performed By: #### G , BMP, HFP #### [place] [address] Bili Direct <0.1 Normal 0.0-0.2 [facility] Comment on above: Result Comment: Use of this assay is not recommended for patients undergoing treatment with eltrombopag due to the potential for falsely elevated results. Performed By: #### G , BMP, [facility] #### [place] [address] Bili Total 0.2 mg/dL Normal 0.2-1.0 [facility] Comment on above: Result Comment: Use of this assay is not recommended for patients undergoing treatment with eltrombopag due to the potential for falsely elevated results. Performed By: #### G , BMP, HFP #### [place] [id number] Globulin 4.4 G/dL High 1.5-3.8 [facility] Comment on above: Performed By: #### G FR, BMP, HFP #### [place] [address] Total Protein 7.0 G/dL Normal 6.4-8.2 [facility] Comment on above: Performed By: #### G FR, BMP, [facility] #### [address] [address] MGon 07-25-2024 Magnesium [Mass/Vol] 2.1 mg/dL Normal 1.8-2.4 [facility] Comment on above: Performed By: #### M G ####[address] [address] BCIDon 07-24-2024 Acinetobacter feliberto-baumanii complex Not detected Normal Not Detected [facility] Comment on above: Order Comment: [facility] and spoke to HOMERO haq 07/24/2024 11:02:45 ESTBB Performed By: #### G , BMP #### [address] [address] Bacteroides fragilis Not detected Normal Not Detected [facility] Comment on above: Order Comment: [facility] and spoke to HOMERO haq 07/24/2024 11:02:45 ESTBB Performed By: #### G , BMP #### [address] [address] BCID Comment See Comment Normal [facility] Comment on above: Order Comment: [facility] spoke to HOMERO haq 07/24/2024 11:02:45 [...] (if appropriate) to follow. Performed By: #### G , BMP #### [address] [address] Maria Elena albicans Not detected Normal Not Detected [facility] Comment on above: Order Comment: [facility] spoke to HOMERO haq 07/24/2024 11:02:45 ESTBB Performed By: #### G FR, BMP #### [address] [address] Maria Elena auris Not detected Normal Not Detected [facility] Comment on above: Order Comment: [facility] and spoke to sue cardona [facility] fl[facility] 07/24/2024 11:02:45 ESTBB Performed By: #### G FR, BMP #### [address] [address] Maria Elena glabrata Not detected Normal Not Detected [facility] Comment on above: Order Comment: [facility] and spoke to sue cardona [facility] chichester 07/24/2024 11:02:45 ESTBB Performed By: #### G FR, BMP #### [address] [address] Maria Elena krusei Not detected Normal Not Detected [facility] Comment on above: Order Comment: [facility] and spoke to sue cardona [facility] ch[facility] 07/24/2024 11:02:45 ESTBB Performed By: #### G FR, BMP #### [address] [address] Maria Elena parapsilosis Not detected Normal Not Detected [facility] Comment on above: Order Comment: [facility] and spoke to sue cardona [facility] 07/24/2024 11:02:45 ESTBB Performed By: #### G FR, BMP #### [address] [address] Maria Elena tropicalis Not detected Normal Not Detected [facility] Comment on above: Order Comment: [facility] and spoke to sue cardona [facility] ch[facility] 07/24/2024 11:02:45 ESTBB Performed By: #### G FR, BMP #### [address] [address] Cryptococcus neoformans-gattii Not detected Normal Not Detected [facility] Comment on above: Order Comment: [facility] spoke to unm hospitalparminder cardona [facility] 07/24/2024 11:02:45 ESTBB Performed By: #### G FR, BMP #### [address] [address] CTX-M (ESBL) Not Applicable Normal Not Detected [facility] Comment on above: Order Comment: [facility] spoke to unm hospitalparminder cardona [facility] 07/24/2024 11:02:45 ESTBB Performed By: #### G FR, BMP #### [address] [address] E. Coli Not detected Normal Not Detected [facility] Comment on above: Order Comment: [facility] spoke to unm hospitalparminder cardona [facility] 07/24/2024 11:02:45 ESTBB Performed By: #### G FR, BMP #### [address] [address] Enterobacter cloacae Complex Not detected Normal Not Detected [facility] Comment on above: Order Comment: [facility] spoke to unm hospitalparminder cardona [facility] 07/24/2024 11:02:45 ESTBB Performed By: #### G FR, BMP #### [address] [address] Enterobacterales Not detected Normal Not Detected [facility] Comment on above: Order Comment: [facility] spoke to unm hospitalparminder cardona [facility] 07/24/2024 11:02:45 ESTBB Performed By: #### G FR, BMP #### [address] [address] Enterococcus faecalis Not detected Normal Not Detected [facility] Comment on above: Order Comment: [facility] and spoke to unm hospitalparminder cardona [facility] 07/24/2024 11:02:45 ESTBB Performed By: #### G FR, BMP #### [address] [address] Enterococcus faecium Not detected Normal Not Detected [facility] Comment on above: Order Comment: [facility] spoke to HOMERO haq 07/24/2024 11:02:45 ESTBB Performed By: #### G FR, BMP #### [address] [address] Haemophilus influenzae Not detected Normal Not Detected [facility] Comment on above: Order Comment: [facility] spoke to HOMERO haq 07/24/2024 11:02:45 ESTBB Performed By: #### G FR, BMP #### [address] [address] IMP (Carbapenemase) Not Applicable Normal Not Detected [facility] Comment on above: Order Comment: [facility] spoke to HOMERO haq 07/24/2024 11:02:45 ESTBB Performed By: #### G FR, BMP #### [address] [address] Klebsiella aerogenes Not detected Normal Not Detected [facility] Comment on above: Order Comment: [facility] spoke to HOMERO haq 07/24/2024 11:02:45 ESTBB Performed By: #### G FR, BMP #### [address] [address] Klebsiella oxytoca Not detected Normal Not Detected [facility] Comment on above: Order Comment: [facility] spoke to HOMERO haq 07/24/2024 11:02:45 ESTBB Performed By: #### G FR, BMP #### [address] [address] Klebsiella pneumoniae group Not detected Normal Not Detected [facility] Comment on above: Order Comment: [facility] spoke to HOMERO haq 07/24/2024 11:02:45 ESTBB Performed By: #### G FR, BMP #### [address] [address] KPC (Carbapenemase) Not Applicable Normal Not Detected [facility] Comment on above: Order Comment: [facility] spoke to sue cardonaHOMERO flmichael 07/24/2024 11:02:45 ESTBB Performed By: #### G FR, BMP #### [address] [address] Listeria monocytogenes Not detected Normal Not Detected [facility] Comment on above: Order Comment: [facility] spoke to sue cardonaHOMERO chichester 07/24/2024 11:02:45 ESTBB Performed By: #### G FR, BMP #### [address] [address] MCR-1 (Colistin Resistance) Not Applicable Normal Not Detected [facility] Comment on above: Order Comment: [facility] spoke to sue cardonaHOMERO chichester 07/24/2024 11:02:45 ESTBB Performed By: #### G FR, BMP #### [address] [address] Mec A/C Not Applicable Normal Not Detected [facility] Comment on above: Order Comment: [facility] spoke to sue cardonaHOMERO chichester 07/24/2024 11:02:45 ESTBB Performed By: #### G FR, BMP #### [address] [address] Mec A/C-MREJ (MRSA) Not Applicable Normal Not Detected [facility] Comment on above: Order Comment: [facility] spoke to sue cardonaHOMERO flmichael 07/24/2024 11:02:45 ESTBB Performed By: #### G FR, BMP #### [address] [address] NDM (Carbapenemase) Not Applicable Normal Not Detected [facility] Comment on above: Order Comment: [facility] spoke to HOMERO haq 07/24/2024 11:02:45 ESTBB Performed By: #### G FR, BMP #### [address] [address] Neisseria meningitidis (Encapsalated) Not detected Normal Not Detected [facility] Comment on above: Order Comment: [facility] spoke to HOMERO haq 07/24/2024 11:02:45 ESTBB Performed By: #### G , BMP #### [address] [address] OXA-48 like (Carbapenemase) Not Applicable Normal Not Detected [facility] Comment on above: Order Comment: [facility] spoke to HOMERO haq 07/24/2024 11:02:45 ESTBB Performed By: #### G , BMP #### [address] [address] Proteus Not detected Normal Not Detected [facility] Comment on above: Order Comment: [facility] spoke to HOMERO haq 07/24/2024 11:02:45 ESTBB Performed By: #### G , BMP #### [address] [address] Pseudomonas aeruginosa Not detected Normal Not Detected [facility] Comment on above: Order Comment: [facility] spoke to HOMERO haq 07/24/2024 11:02:45 ESTBB Performed By: #### G FR, BMP #### [address] [address] S. agalactiae Org specific cx Ql (Vag fld) Not detected Normal Not Detected [facility] Comment on above: Order Comment: [facility] spoke to HOMERO haq okmichael 07/24/2024 11:02:45 ESTBB Performed By: #### G FR, BMP #### [address] [address] Salmonella species Not detected Normal Not Detected [facility] Comment on above: Order Comment: [facility] spoke to HOMERO haq 07/24/2024 11:02:45 ESTBB Performed By: #### G FR, BMP #### [address] [address] Serratia marcescens Not detected Normal Not Detected [facility] Comment on above: Order Comment: [facility] spoke to HOMERO haq 07/24/2024 11:02:45 ESTBB Performed By: #### G FR, BMP #### [address] [address] Staphylococcus Detected Abnormal Not Detected [facility] Comment on above: Order Comment: [facility] spoke to HOMERO haq 07/24/2024 11:02:45 ESTBB Performed By: #### G FR, BMP #### [address] [address] Staphylococcus aureus Not detected Normal Not Detected [facility] Comment on above: Order Comment: [facility] spoke to HOMERO haq 07/24/2024 11:02:45 ESTBB Result Comment: If S taphylococcus aureus is Detected, an Infectious Disease physician consult is required on identification. Performed By: #### G FR, BMP #### [address] [address] Staphylococcus epidermidis Not detected Normal Not Detected [facility] Comment on above: Order Comment: [facility] spoke to HOMERO haq 07/24/2024 11:02:45 ESTBB Performed By: #### G FR, BMP #### [address] [place], [place] [address] Staphylococcus lugdunensis Not detected Normal Not Detected [facility] Comment on above: Order Comment: [facility] spoke to HOMERO haq flmichael 07/24/2024 11:02:45 ESTBB Performed By: #### G FR, BMP #### [place] [id number] [place], [place] [address] Stenotrophomonas maltophilia Not detected Normal Not Detected [facility] Comment on above: Order Comment: [facility] spoke to HOMERO haq chichester 07/24/2024 11:02:45 ESTBB Performed By: #### G FR, BMP #### [address] [address] Streptococcus Not detected Normal Not Detected [facility] Comment on above: Order Comment: [facility] spoke to HOMERO haq chichester 07/24/2024 11:02:45 ESTBB Performed By: #### G FR, BMP #### [address] [address] Streptococcus pneumoniae Not detected Normal Not Detected [facility] Comment on above: Order Comment: [facility] spoke to HOMERO haq 07/24/2024 11:02:45 ESTBB Performed By: #### G FR, BMP #### [address] [address] Streptococcus pyogenes Not detected Normal Not Detected [facility] Comment on above: Order Comment: [facility] spoke to HOMERO haq 07/24/2024 11:02:45 ESTBB Performed By: #### G FR, BMP #### [place] [id number] [place], [place] [address] Van A/B Not Applicable Normal Not Detected [facility] Comment on above: Order Comment: [facility] spoke to HOMERO haq 07/24/2024 11:02:45 ESTBB Performed By: #### G , BMP #### [place] [id number] VIM (Carbapenemase) Not Applicable Normal Not Detected [facility] Comment on above: Order Comment: [facility] to HOMERO haq 07/24/2024 11:02:45 ESTBB Performed By: #### G , BMP #### [place] [address] HFPon 07-24-2024 Bili Indirect Unable to Calculate Normal [facility] Comment on above: Result Comment: Unab le to calculate this test result accurately. Results used to calculate this test are outside the reportable range. Performed By: #### U A #### [place] [id number] Albumin Level 2.7 G/dL Low 3.5-5.0 [facility] Comment on above: Performed By: #### U A #### [place] [address] Albumin/Globulin [Mass ratio] 0.6 {ratio} Low 1.1-2.5 [facility] Comment on above: Performed By: #### U A #### [place] [id number] ALP [Catalytic activity/Vol] 72 U/L Normal 40-135 [facility] Comment on above: Performed By: #### U A #### [place] [id number] ALT [Catalytic activity/Vol] 16 U/L Normal 14-59 [facility] Comment on above: Performed By: #### U A #### [place] 180787 AST [Catalytic activity/Vol] 12 U/L Normal 10-40 [facility] Comment on above: Performed By: #### U A #### [place] [id number] Bili Direct <0.1 Normal 0.0-0.2 [facility] Comment on above: Result Comment: Use of this assay is not recommended for patients undergoing treatment with eltrombopag due to the potential for falsely elevated results. Performed By: #### U A #### [address] [address] Bili Total 0.3 mg/dL Normal 0.2-1.0 [facility] Comment on above: Result Comment: Use of this assay is not recommended for patients undergoing treatment with eltrombopag due to the potential for falsely elevated results. Performed By: #### U A #### [address] [address] Globulin 4.2 G/dL High 1.5-3.8 [facility] Comment on above: Performed By: #### U A #### [address] [address] Total Protein 6.9 G/dL Normal 6.4-8.2 [facility] Comment on above: Performed By: #### U A #### [address] [address] MYCOon 07-24-2024 Mycoplasma IgG Positive Normal [facility] Comment on above: Result Comment: INTE RPRETATION OF MYCOPLASMA IgG BY EIA: Negative: No detectable M. pneumoniae IgG antibody. Positive: Mycoplasma pneumoniae IgG antibody Detected. Equivocal: Equivocal for IgG antibodies to Mycoplasma pneumoniae. Suggest repeat testing in 10-14 days. Performed By: #### M YCO ####[address] [address] .Auto Diffon 07-23-2024 Basophil, Absolute 0.2 10 3/mcL Normal 0.0-0.2 [facility] Comment on above: Performed By: #### U A #### [address] [address] Basophils/100 WBC (Bld) 1.5 % Normal 0.0-2.5 [facility] Comment on above: Performed By: #### U A #### [address] [address] Eosinophil, Absolute 0.0 10 3/mcL Normal 0.0-0.7 [facility] Comment on above: Performed By: #### U A #### [address] [address] Eosinophils/100 WBC (Bld) 0.3 % Normal 0.0-7.0 [facility] Comment on above: Performed By: #### U A #### [address] [address] Lymphocyte, Absolute 1.5 10 3/mcL Normal 0.9-4.3 [facility] Comment on above: Performed By: #### U A #### [address] [address] Lymphocytes/100 WBC (Bld) 14.3 % Low 20.0-40.0 [facility] Comment on above: Performed By: #### U A #### [address] [address] Monocyte, Absolute 1.0 10 3/mcL Normal 0.1-1.4 [facility] Comment on above: Performed By: #### U A #### [address] [address] Monocytes/100 WBC (Bld) 8.9 % Normal 2.0-13.0 [facility] Comment on above: Performed By: #### U A #### [address] [address] Neutrophils/100 WBC (Bld) 75.0 % Normal 50.0-75.0 [facility] Comment on above: Performed By: #### U A #### [address] [address] Basophil, Absolute 0.0 10 3/mcL Normal 0.0-0.2 [facility] Comment on above: Performed By: #### G FR, BMP, HFP #### [address] [address] Basophils/100 WBC (Bld) 0.3 % Normal 0.0-2.5 [facility] Comment on above: Performed By: #### G FR, BMP, HFP #### [address] [address] Eosinophil, Absolute 0.0 10 3/mcL Normal 0.0-0.7 [facility] Comment on above: Performed By: #### G FR, BMP, HFP #### [address] [address] Eosinophils/100 WBC (Bld) 0.2 % Normal 0.0-7.0 [facility] Comment on above: Performed By: #### G FR, BMP, HFP #### [address] [address] Lymphocyte, Absolute 1.2 10 3/mcL Normal 0.9-4.3 [facility] Comment on above: Performed By: #### G FR, BMP, HFP #### [address] [address] Lymphocytes/100 WBC (Bld) 8.9 % Low 20.0-40.0 [facility] Comment on above: Performed By: #### G FR, BMP, HFP #### [address] [address] Monocyte, Absolute 1.0 10 3/mcL Normal 0.1-1.4 [facility] Comment on above: Performed By: #### G FR, BMP, HFP #### [address] [address] Monocytes/100 WBC (Bld) 7.1 % Normal 2.0-13.0 [facility] Comment on above: Performed By: #### G FR, BMP, HFP #### [address] [address] Neutrophils/100 WBC (Bld) 83.5 % High 50.0-75.0 [facility] Comment on above: Performed By: #### G FR, BMP, HFP #### [address] [address] .GFRon 07-23-2024 Estimated Glomerular Filtration Rate 92 ml/min/1.73sqm Normal [facility] Comment on above: Result Comment: Stages of [...] the eGFR results. Performed By: #### G PATRICIA BILLINGSLEY, HFP #### [address] [address] Estimated Glomerular Filtration Rate 85 ml/min/1.73sqm Normal [facility] Comment on above: Result Comment: Stages of [...] eGFR results. Performed By: #### G , PATRICIA, HFP #### [place] [id number] [place], [place] [address] .NEUABSon 07-23-2024 Neutrophil, Absolute 8.1 10 3/mcL Normal 2.3-8.1 [facility] Comment on above: Performed By: #### U A #### [address] [address] Neutrophil, Absolute 11.3 10 3/mcL High 2.3-8.1 [facility] Comment on above: Performed By: #### G PATRICIA BILLINGSLEY, HFP #### [address] [address] APTTon 07-23-2024 aPTT Coag (Bld) [Time] 34.0 s Normal 25.0-35.0 [facility] Comment on above: Result Comment: For Heparin anticoagulation therapy, the recommended therapeutic range is: 45.4-75.9 seconds. Patients on heparin therapy may have an extreme result. Performed By: #### U A #### [place] [id number] BMPon 07-23-2024 BUN/Creatinine Ratio 7 ratio Normal 7-27 [facility] Comment on above: Performed By: #### G PATRICIA BILLINGSLEY, HFP #### [address] [address] Calcium [Mass/Vol] 8.6 mg/dL Normal 8.4-10.2 [facility] Comment on above: Performed By: #### G PATRICIA BILLINGSLEY, HFP #### [address] [address] Chloride [Moles/Vol] 105 mmol/L Normal 98-107 [facility] Comment on above: Performed By: #### G PATRICIA BILLINGSLEY, HFP #### [address] [address] CO2 [Moles/Vol] 26 mmol/L Normal 22-29 [facility] Comment on above: Performed By: #### G FR BMP, HFP #### [address] [address] Creatinine [Mass/Vol] 0.95 mg/dL Normal 0.55-1.02 [facility] Comment on above: Result Comment: Test ing performed on Siemens Dimension EXL analyzer using a modified kinetic Stephanie technique. Performed By: #### G FR BMP, HFP #### [address] [address] Electrolyte Balance 7.0 mEq/L Normal 4.0-15.0 [facility] Comment on above: Performed By: #### G FR, BMP, HFP #### [address] [address] Glucose [Mass/Vol] 139 mg/dL High 70-105 [facility] Comment on above: Performed By: #### G , BMP, HFP #### [address] [address] Potassium [Moles/Vol] 3.4 mmol/L Low 3.5-5.1 [facility] Comment on above: Performed By: #### G , BMP, HFP #### [address] [address] Sodium [Moles/Vol] 138 mmol/L Normal 136-145 [facility] Comment on above: Performed By: #### G , BMP, HFP #### [address] [address] Urea nitrogen [Mass/Vol] 7 mg/dL Normal 7-18 [facility] Comment on above: Performed By: #### G , BMP, HFP #### [address] [address] CBCon 07-23-2024 Erythrocyte distribution width (RBC) [Ratio] 13.0 % Normal 11.5-15.5 [facility] Comment on above: Performed By: #### U A #### [address] [address] Hematocrit (Bld) [Volume fraction] 30.8 % Low 34.0-46.0 [facility] Comment on above: Performed By: #### U A #### [address] [address] Hgb 10.5 G/dL Low 12.0-16.0 [facility] Comment on above: Performed By: #### U A #### [address] [address] MCH (RBC) [Entitic mass] 28.9 pg Normal 27.0-33.0 [facility] Comment on above: Performed By: #### U A #### [address] [address] MCHC 34.1 G/dL Normal 32.0-36.0 [facility] Comment on above: Performed By: #### U A #### [address] [address] MCV (RBC) [Entitic vol] 84.8 fL Normal 80.0-99.0 [facility] Comment on above: Performed By: #### U A #### [address] [address] Platelet 280 10 3/mcL Normal 150-450 [facility] Comment on above: Performed By: #### U A #### [address] [address] Platelet mean volume (Bld) [Entitic vol] 7.5 fL Normal 6.6-10.5 [facility] Comment on above: Performed By: #### U A #### [address] [address] RBC 3.63 10 6/mcL Low 4.10-5.30 [facility] Comment on above: Performed By: #### U A #### [address] [address] WBC 10.8 10 3/mcL Normal 4.5-10.8 [facility] Comment on above: Performed By: #### U A #### [address] [address] Erythrocyte distribution width (RBC) [Ratio] 12.7 % Normal 11.5-15.5 [facility] Comment on above: Performed By: #### G FR, BMP, HFP #### [address] [address] Hematocrit (Bld) [Volume fraction] 30.3 % Low 34.0-46.0 [facility] Comment on above: Performed By: #### G FR, BMP, HFP #### [address] [address] Hgb 10.2 G/dL Low 12.0-16.0 [facility] Comment on above: Performed By: #### G FR, BMP, HFP #### [address] [address] MCH (RBC) [Entitic mass] 28.3 pg Normal 27.0-33.0 [facility] Comment on above: Performed By: #### G FR, BMP, HFP #### [address] [address] MCHC 33.6 G/dL Normal 32.0-36.0 [facility] Comment on above: Performed By: #### G FR, BMP, HFP #### [address] [address] MCV (RBC) [Entitic vol] 84.1 fL Normal 80.0-99.0 [facility] Comment on above: Performed By: #### Puneet FR, BMP, HFP #### [address] [address] Platelet 280 10 3/mcL Normal 150-450 [facility] Comment on above: Performed By: #### G FR, BMP, HFP #### [address] [address] Platelet mean volume (Bld) [Entitic vol] 8.0 fL Normal 6.6-10.5 [facility] Comment on above: Performed By: #### G FR, BMP, HFP #### [address] [address] RBC 3.60 10 6/mcL Low 4.10-5.30 [facility] Comment on above: Performed By: #### G FR, BMP, HFP #### [address] [address] WBC 13.6 10 3/mcL High 4.5-10.8 [facility] Comment on above: Performed By: #### G FR, BMP, HFP #### [address] [address] CMPon 07-23-2024 Albumin Level 2.8 G/dL Low 3.5-5.0 [facility] Comment on above: Performed By: #### U A #### [address] [address] Albumin/Globulin [Mass ratio] 0.7 {ratio} Low 1.1-2.5 [facility] Comment on above: Performed By: #### U A #### [address] [address] ALP [Catalytic activity/Vol] 74 U/L Normal 40-135 [facility] Comment on above: Performed By: #### U A #### [address] [address] ALT [Catalytic activity/Vol] 18 U/L Normal 14-59 [facility] Comment on above: Performed By: #### U A #### [address] [address] AST [Catalytic activity/Vol] 14 U/L Normal 10-40 [facility] Comment on above: Performed By: #### U A #### [address] [address] Bili Total 0.2 mg/dL Normal 0.2-1.0 [facility] Comment on above: Result Comment: Use of this assay is not recommended for patients undergoing treatment with eltrombopag due to the potential for falsely elevated results. Performed By: #### U A #### [address] [address] BUN/Creatinine Ratio 6 ratio Low 7-27 [facility] Comment on above: Performed By: #### U A #### [address] [address] Calcium [Mass/Vol] 8.7 mg/dL Normal 8.4-10.2 [facility] Comment on above: Performed By: #### U A #### [address] [address] Chloride [Moles/Vol] 107 mmol/L Normal 98-107 [facility] Comment on above: Performed By: #### U A #### [address] [address] CO2 [Moles/Vol] 28 mmol/L Normal 22-29 [facility] Comment on above: Performed By: #### U A #### [address] [address] Creatinine [Mass/Vol] 0.89 mg/dL Normal 0.55-1.02 [facility] Comment on above: Result Comment: Test ing performed on Siemens Dimension EXL analyzer using a modified kinetic Stephanie technique. Performed By: #### U A #### [address] [address] Electrolyte Balance 5.0 mEq/L Normal 4.0-15.0 [facility] Comment on above: Performed By: #### U A #### [address] [address] Globulin 4.1 G/dL High 1.5-3.8 [facility] Comment on above: Performed By: #### U A #### [address] [address] Glucose [Mass/Vol] 112 mg/dL High 70-105 [facility] Comment on above: Performed By: #### U A #### [address] [address] Potassium [Moles/Vol] 4.0 mmol/L Normal 3.5-5.1 [facility] Comment on above: Performed By: #### U A #### [address] [address] Sodium [Moles/Vol] 140 mmol/L Normal 136-145 [facility] Comment on above: Performed By: #### U A #### [address] [address] Total Protein 6.9 G/dL Normal 6.4-8.2 [facility] Comment on above: Performed By: #### U A #### [address] [address] Urea nitrogen [Mass/Vol] 5 mg/dL Low 7-18 [facility] Comment on above: Performed By: #### U A #### [address] [address] LDHon 07-23-2024 LDH 160 U/L Normal 81-234 [facility] Comment on above: Performed By: #### U A #### [address] [address] MGon 07-23-2024 Magnesium [Mass/Vol] 1.7 mg/dL Low 1.8-2.4 [facility] Comment on above: Performed By: #### G FR, BMP, HFP #### [address] [address] MYCOon 07-23-2024 Mycoplasma IgM Negative Normal [facility] Comment on above: Result Comment: INTE RPRETATION OF MYCOPLASMA IgM: Negative: IgM to M. pneumoniae Absent, or at levels below the assay limit of detection. Positive: IgM to M. pneumoniae Present. Invalid: Test results are invalid due to invalid internal control. Assay was performed in duplicate. Repeat testing is suggested if clinically indicated. Performed By: #### M YCO ####[place] [address] RESCVIDon 07-23-2024 Adenovirus Not detected Normal Not Detected [facility] Comment on above: Performed By: #### G FR, BMP #### [address] [address] Bordetella Parapertussis Not detected Normal Not Detected [facility] Comment on above: Performed By: #### G FR, BMP #### [address] [address] Bordetella Pertussis Not detected Normal Not Detected [facility] Comment on above: Performed By: #### G FR, BMP #### [address] [address] Chlamydophila pneumoniae Not detected Normal Not Detected [facility] Comment on above: Performed By: #### G FR, BMP #### [address] [address] Coronavirus 229E (Not COVID-19) Not detected Normal Not Detected [facility] Comment on above: Performed By: #### G FR, BMP #### [address] [address] Coronavirus HKU1 (Not COVID-19) Not detected Normal Not Detected [facility] Comment on above: Performed By: #### G FR, BMP #### [address] [address] Coronavirus NL63 (Not COVID-19) Not detected Normal Not Detected [facility] Comment on above: Performed By: #### G FR, BMP #### [place] [address] Coronavirus OC43 (Not COVID-19) Not detected Normal Not Detected [facility] Comment on above: Performed By: #### G FR, BMP #### [address] [address] Human Metapneumovirus Not detected Normal Not Detected [facility] Comment on above: Performed By: #### G FR, BMP #### [address] [address] Influenza A Not detected Normal Not Detected [facility] Comment on above: Performed By: #### G FR, BMP #### [address] [address] Influenza B Not detected Normal Not Detected [facility] Comment on above: Performed By: #### G FR, BMP #### [address] [address] Mycoplasma pneumoniae Not detected Normal Not Detected [facility] Comment on above: Performed By: #### G FR, BMP #### [address] [address] Parainfluenza 1 Not detected Normal Not Detected [facility] Comment on above: Performed By: #### G FR, BMP #### [address] [address] Parainfluenza 2 Not detected Normal Not Detected [facility] Comment on above: Performed By: #### G FR, BMP #### [place] [address] Parainfluenza 3 Not detected Normal Not Detected [facility] Comment on above: Performed By: #### G FR, BMP #### [place] [address] Parainfluenza 4 Not detected Normal Not Detected [facility] Comment on above: Performed By: #### G FR, BMP #### [place] [address] Respiratory Syncytial Virus Not detected Normal Not Detected [facility] Comment on above: Performed By: #### G FR, BMP #### [place] [address] Rhinovirus/Enteroviru s Not detected Normal Not Detected [facility] Comment on above: Performed By: #### G FR, BMP #### [place] [address] SARS-CoV-2 (COVID-19) RNA SHO+probe Ql (Unsp spec) Not detected Normal Not Detected [facility] Comment on above: Result Comment: This assay has been validated in the [facility] for use with nasopharyngeal specimens in [facility]. If a non-validated specimen or test collection [...] Performed By: #### G , BMP #### [place] [id number] [place], [place] [address] .GFRon 07-22-2024 Estimated Glomerular Filtration Rate 103 ml/min/1.73sqm [facility] Comment on above: Result Comment: Stages [...] Performed By: #### G , BMP #### [address] [address] Estimated Glomerular Filtration Rate 89 ml/min/1.73sqm Normal [facility] Comment on above: Result Comment: Stages of [...] eGFR results. Performed By: #### G , GODWIN, BMP, MDW, CBC, LAC, ADIFF ####[address] [address] BMPon 07-22-2024 BUN/Creatinine Ratio 10 ratio Normal 7-27 [facility] Comment on above: Performed By: #### G , BMP #### [address] [address] Calcium [Mass/Vol] 8.3 mg/dL Low 8.4-10.2 [facility] Comment on above: Performed By: #### Puneet BILLINGSLEY, BMP #### [address] [address] Chloride [Moles/Vol] 108 mmol/L High 98-107 [facility] Comment on above: Performed By: #### Puneet BILLINGSLEY, BMP #### [address] [address] CO2 [Moles/Vol] 26 mmol/L Normal 22-29 [facility] Comment on above: Performed By: #### Puneet BILLINGSLEY, BMP #### [address] [address] Creatinine [Mass/Vol] 0.81 mg/dL Normal 0.55-1.02 [facility] Comment on above: Result Comment: Test ing performed on Siemens Dimension EXL analyzer using a modified kinetic Stephanie technique. Performed By: #### G , BMP #### [address] [address] Electrolyte Balance 8.0 mEq/L Normal 4.0-15.0 [facility] Comment on above: Performed By: #### Puneet BILLINGSLEY, BMP #### [address] [address] Glucose [Mass/Vol] 123 mg/dL High 70-105 [facility] Comment on above: Performed By: #### Puneet BILLINGSLEY, BMP #### [address] [address] Potassium [Moles/Vol] 3.7 mmol/L Normal 3.5-5.1 [facility] Comment on above: Performed By: #### Puneet FR, BMP #### [place] [id number] [place], [place] [address] Sodium [Moles/Vol] 142 mmol/L Normal 136-145 [facility] Comment on above: Performed By: #### G FR, BMP #### [place] [id number] [place], [place] [address] Urea nitrogen [Mass/Vol] 8 mg/dL Normal 7-18 [facility] Comment on above: Performed By: #### Puneet BILLINGSLEY, BMP #### [address] [address] BUN/Creatinine Ratio 12 ratio Normal 7-27 [facility] Comment on above: Performed By: #### G FR, ANEU, BMP, MDW, CBC, LAC, ADIFF ####[address] [place], [place] [address] Calcium [Mass/Vol] 9.4 mg/dL Normal 8.4-10.2 [facility] Comment on above: Performed By: #### G FR, ANEU, BMP, MDW, CBC, LAC, ADIFF ####[facility] [place], [place] [address] Chloride [Moles/Vol] 94 mmol/L Low 98-107 [facility] Comment on above: Performed By: #### G FR, ANEU, BMP, MDW, CBC, LAC, ADIFF ####[facility] [place], [place] [address] CO2 [Moles/Vol] 29 mmol/L Normal 22-29 [facility] Comment on above: Performed By: #### G FR, ANEU, BMP, MDW, CBC, LAC, ADIFF ####[facility] [place], [place] [address] Creatinine [Mass/Vol] 0.92 mg/dL Normal 0.55-1.02 [facility] Comment on above: Result Comment: Test ing performed on Siemens Dimension EXL analyzer using a modified kinetic Stephanie technique. Performed By: #### G FR, ANEU, BMP, MDW, CBC, LAC, ADIFF ####[address] [place], [place] [address] Electrolyte Balance 3.0 mEq/L Low 4.0-15.0 [facility] Comment on above: Performed By: #### G FR, ANEU, BMP, MDW, CBC, LAC, ADIFF ####[address] [place], [place] [address] Glucose [Mass/Vol] 127 mg/dL High 70-105 [facility] Comment on above: Performed By: #### G FR, ANEU, BMP, MDW, CBC, LAC, ADIFF ####[address] [place], [place] [address] Potassium [Moles/Vol] 3.4 mmol/L Low 3.5-5.1 [facility] Comment on above: Performed By: #### G FR, ANEU, BMP, MDW, CBC, LAC, ADIFF ####[address] [place], [place] [address] Sodium [Moles/Vol] 126 mmol/L Low 136-145 [facility] Comment on above: Performed By: #### G FR, ANEU, BMP, MDW, CBC, LAC, ADIFF ####[address] [place], [place] [address] Urea nitrogen [Mass/Vol] 11 mg/dL Normal 7-18 [facility] Comment on above: Performed By: #### G FR, ANEU, BMP, MDW, CBC, LAC, ADIFF ####[address] [place], [place] [address] CNPNon 07-22-2024 CNPN Normal [facility] HFPon 07-22-2024 Bili Indirect Unable to Calculate Normal [facility] Comment on above: Result Comment: Unab le to calculate this test result accurately. Results used to calculate this test are outside the reportable range. Performed By: #### G FR, BMP #### [address] [address] Albumin Level 3.5 G/dL Normal 3.5-5.0 [facility] Comment on above: Performed By: #### Puneet BILLINGSLEY, BMP #### [address] [address] Albumin/Globulin [Mass ratio] 0.8 {ratio} Low 1.1-2.5 [facility] Comment on above: Performed By: #### Puneet BILLINGSLEY, BMP #### [address] [address] ALP [Catalytic activity/Vol] 83 U/L Normal 40-135 [facility] Comment on above: Performed By: #### Puneet BILLINGSLEY, BMP #### [address] [address] ALT [Catalytic activity/Vol] 21 U/L Normal 14-59 [facility] Comment on above: Performed By: #### Puneet BILLINGSLEY, BMP #### [address] [address] AST [Catalytic activity/Vol] 25 U/L Normal 10-40 [facility] Comment on above: Performed By: #### Puneet BILLINGSLEY, BMP #### [address] [address] Bili Direct <0.1 Normal 0.0-0.2 [facility] Comment on above: Result Comment: Use of this assay is not recommended for patients undergoing treatment with eltrombopag due to the potential for falsely elevated results. Performed By: #### Puneet BILLINGSLEY, BMP #### [address] [address] Bili Total 0.2 mg/dL Normal 0.2-1.0 [facility] Comment on above: Result Comment: Use of this assay is not recommended for patients undergoing treatment with eltrombopag due to the potential for falsely elevated results. Performed By: #### Puneet BILLINGSLEY, BMP #### [address] [address] Globulin 4.5 G/dL High 1.5-3.8 [facility] Comment on above: Performed By: #### G FR, BMP #### [address] [address] Total Protein 8.0 G/dL Normal 6.4-8.2 [facility] Comment on above: Performed By: #### G FR, BMP #### [address] [address] LACon 07-22-2024 Lactic Acid Lvl 1.2 mmol/L Normal 0.4-2.0 [facility] Comment on above: Performed By: #### G FR, ANEU, BMP, MDW, CBC, LAC, ADIFF ####[place] [address] [place] [address] MRSAPCRon 07-22-2024 MRSA (PCR) Not detected Normal Not Detected [facility] Comment on above: Result Comment: Note s [id number] Performed By: #### U A #### [place] [address] MRSA PCR Int Normal [facility] Comment on above: Result Comment: MRSA DNA [...] be reproducible. See Below Performed By: #### U A #### [address] [address] XR CHEST 2 VIEWSon XR CHEST 2 [...] Date: 07/22/2024 12:01:04 AM Ordering Provider: YASMEEN Terry [facility] .Auto Diffon 07-21-2024 Basophil, Absolute 0.1 10 3/mcL Normal 0.0-0.2 [facility] Comment on above: Performed By: #### G FR, ANEU, BMP, MDW, CBC, LAC, ADIFF ####[place] [address] [place], [place] [address] Basophils/100 WBC (Bld) 0.9 % Normal 0.0-2.5 [facility] Comment on above: Performed By: #### G FR, ANEU, BMP, MDW, CBC, LAC, ADIFF ####[place] [address] [place], [place] [address] Eosinophil, Absolute 0.1 10 3/mcL Normal 0.0-0.7 [facility] Comment on above: Performed By: #### G FR, ANEU, BMP, MDW, CBC, LAC, ADIFF ####[facility] [place], [place] [address] Eosinophils/100 WBC (Bld) 0.4 % Normal 0.0-7.0 [facility] Comment on above: Performed By: #### G FR, ANEU, BMP, MDW, CBC, LAC, ADIFF ####[place] [address] [place], [place] [address] Lymphocyte, Absolute 1.8 10 3/mcL Normal 0.9-4.3 [facility] Comment on above: Performed By: #### G FR, ANEU, BMP, MDW, CBC, LAC, ADIFF ####[place] [address] [place], [place] [address] Lymphocytes/100 WBC (Bld) 14.5 % Low 20.0-40.0 [facility] Comment on above: Performed By: #### G FR, ANEU, BMP, MDW, CBC, LAC, ADIFF ####[facility] [place], [place] [address] Monocyte, Absolute 1.1 10 3/mcL Normal 0.1-1.4 [facility] Comment on above: Performed By: #### G FR, ANEU, BMP, MDW, CBC, LAC, ADIFF ####[place] [address] [place], [place] [address] Monocytes/100 WBC (Bld) 9.0 % Normal 2.0-13.0 [facility] Comment on above: Performed By: #### G FR, ANEU, BMP, MDW, CBC, LAC, ADIFF ####[place] [address] [place], [place] [address] Neutrophils/100 WBC (Bld) 75.2 % High 50.0-75.0 [facility] Comment on above: Performed By: #### G FR, ANEU, BMP, MDW, CBC, LAC, ADIFF ####[place] [address] [place], [place] [address] .MDWon 07-21-2024 Monocyte Distribution Width 18.83 Normal 0.00-20.00 [facility] Comment on above: Result Comment: For ED adult patients suspected of sepsis, MDW<=20.0 does not rule out sepsis or risk of sepsis Performed By: #### G FR, ANEU, BMP, MDW, CBC, LAC, ADIFF ####[facility] [place], [place] [address] .NEUABSon 07-21-2024 Neutrophil, Absolute 9.2 10 3/mcL High 2.3-8.1 [facility] Comment on above: Performed By: #### G FR, ANEU, BMP, MDW, CBC, LAC, ADIFF ####[facility] [place] [id number] CBCon 07-21-2024 Erythrocyte distribution width (RBC) [Ratio] 12.7 % Normal 11.5-15.5 [facility] Comment on above: Performed By: #### G FR, ANEU, BMP, MDW, CBC, LAC, ADIFF ####[place] [address] [place], [place] [address] Hematocrit (Bld) [Volume fraction] 36.1 % Normal 34.0-46.0 [facility] Comment on above: Performed By: #### G FR, ANEU, BMP, MDW, CBC, LAC, ADIFF ####[facility] [place], [place] [address] Hgb 11.9 G/dL Low 12.0-16.0 [facility] Comment on above: Performed By: #### G FR, ANEU, BMP, MDW, CBC, LAC, ADIFF ####[facility] [place], [place] [address] MCH (RBC) [Entitic mass] 28.1 pg Normal 27.0-33.0 [facility] Comment on above: Performed By: #### G FR, ANEU, BMP, MDW, CBC, LAC, ADIFF ####[facility] [place], [place] [address] MCHC 32.8 G/dL Normal 32.0-36.0 [facility] Comment on above: Performed By: #### G FR, ANEU, BMP, MDW, CBC, LAC, ADIFF ####[facility] [place], [place] [address] MCV (RBC) [Entitic vol] 85.6 fL Normal 80.0-99.0 [facility] Comment on above: Performed By: #### G FR, ANEU, BMP, MDW, CBC, LAC, ADIFF ####[facility] [place], [place] [address] Platelet 298 10 3/mcL Normal 150-450 [facility] Comment on above: Performed By: #### G FR, ANEU, BMP, MDW, CBC, LAC, ADIFF ####[facility] [place], [place] [address] Platelet mean volume (Bld) [Entitic vol] 7.7 fL Normal 6.6-10.5 [facility] Comment on above: Performed By: #### G FR, ANEU, BMP, MDW, CBC, LAC, ADIFF ####[place] [address] [place], [place] [address] RBC 4.22 10 6/mcL Normal 4.10-5.30 [facility] Comment on above: Performed By: #### G FR, ANEU, BMP, MDW, CBC, LAC, ADIFF ####[address] [address] [place], [place] [address] WBC 12.2 10 3/mcL High 4.5-10.8 [facility] Comment on above: Performed By: #### G FR, ANEU, BMP, MDW, CBC, LAC, ADIFF ####[place] [address] [place] [address] UAon 07-21-2024 Color (U) Yellow Normal [facility] Comment on above: Performed By: #### U A ####[address] [place] [address] Glucose (U) [Mass/Vol] Negative Normal Negative [facility] Comment on above: Performed By: #### U A ####[place] [address] [place] [address] Ketones Ql (U) Negative Normal Negative [facility] Comment on above: Performed By: #### U A ####[place] [address] [place] [address] UA Appear Clear Normal Clear [facility] Comment on above: Performed By: #### U A ####[address] [place], [place] [address] UA Blood Trace Abnormal Negative [facility] Comment on above: Performed By: #### U A ####[address] [address] [place], [place] [address] UA Leuk Est Negative Normal Negative [facility] Comment on above: Performed By: #### U A ####[place] [address] [place] [id number] UA Nitrite Negative Normal Negative [facility] Comment on above: Performed By: #### U A ####[place] [address] [place] [address] UA pH 7.0 Normal 5.0 - 8.0 [facility] Comment on above: Performed By: #### U A ####[address] [address] UA Protein Negative Normal Negative [facility] Comment on above: Performed By: #### U A ####[place] [address] [place] [address] UA Spec Grav 1.020 Normal 1.015-1.025 [facility] Comment on above: Performed By: #### U A ####[place] [address] [place] [address] UA Specimen Type Clean Catch Normal [facility] Comment on above: Performed By: #### U A ####[place] [address] [place] [address] UA Urobilinogen 1.0 E.U./dL Normal 0.2-1.0 [facility] Comment on above: Performed By: #### U A ####[place] [address] Urobilinogen (U) [Mass/Vol] Negative Normal Negative [facility] Comment on above: Performed By: #### U A ####[place] [address] [place] [address] CVFLURVon 07-20-2024 FLU A PCR Negative Normal Negative [facility] Comment on above: Performed By: #### C VFLURV ####[place] [address] FLU B PCR Negative Normal Negative [facility] Comment on above: Performed By: #### C VFLURV ####[place] [address] [place] [address] RSV PCR Negative Normal Negative [facility] Comment on above: Performed By: #### C VFLURV ####[place] [address] [place] [address] SARS-CoV-2 (COVID-19) RNA SHO+probe Ql (Unsp spec) Negative Normal Negative [facility] Comment on above: Result Comment: Resu lts [...] cause inaccurate positive results. Performed By: #### C VFLURV ####[facility] [place] [address] LABORATORYOrdered By: Shannan Rowe on 07-20-2024 FLUAV [...] URC Mixed Gram Pos Gram Neg Org [place] Count 25,000-50,000 MIXC Mixed contaminants. Submit a new specimen if indicated. Normal [facility] Comment on above: Performed By: #### M 100.2200 ####[facility] [address] [place], [address] CBC W/Diff, Automatedon 06-22 Absolute Lymph 1.97 X10 3/uL Normal 0.83-4.51 [facility] Comment on above: Performed By: #### L 300.3900, L300.4310, L100.0100 #### [facility] [address] [place], [address] Absolute Neut 8.3 X10 3/uL High 2.0-7.7 [facility] Comment on above: Performed By: #### L 300.3900, L300.4310, L100.0100 #### [facility] [address] [place], [address] Basophils/100 WBC (Bld) 0.3 % Normal 0-1 [facility] Comment on above: Performed By: #### L 300.3900, L300.4310, L100.0100 #### [facility] [address] [place], [address] Eosinophils/100 WBC (Bld) 0.7 % Normal 0-5 [facility] Comment on above: Performed By: #### L 300.3900, L300.4310, L100.0100 #### [facility] [address] [place], [address] Erythrocyte distribution width (RBC) [Ratio] 12.7 % Normal 11.6-14.6 [facility] Comment on above: Performed By: #### L 300.3900, L300.4310, L100.0100 #### [facility] [address] [place], [address] Hematocrit (Bld) [Volume fraction] 36.3 % Low 37-47 [facility] Comment on above: Performed By: #### L 300.3900, L300.4310, L100.0100 #### [facility] [address] [place], [address] Hemoglobin (Bld) [Mass/Vol] 11.8 g/dL Low 12.0-15.0 [facility] Comment on above: Performed By: #### L 300.3900, L300.4310, L100.0100 #### [facility] [address] [place], [address] IG% 0.400 Normal 0.0-0.9 [facility] Comment on above: Result Comment: IG% - Immature Granulocytes (promyelocytes, myelocytes and metamyelocytes) > 1% indicates that a LEFT SHIFT is Present. Performed By: #### L 300.3900, L300.4310, L100.0100 #### [facility] [address] [place], [address] Lymphocytes/100 WBC (Bld) 17.3 % Low 19-41 [facility] Comment on above: Performed By: #### L 300.3900, L300.4310, L100.0100 #### [facility] [address] [place], [address] MCH (RBC) [Entitic mass] 28.6 pg Normal 27.0-32.0 [facility] Comment on above: Performed By: #### L 300.3900, L300.4310, L100.0100 #### [facility] [address] [place], [address] MCHC (RBC) [Mass/Vol] 32.5 g/dL Normal 32-36 [facility] Comment on above: Performed By: #### L 300.3900, L300.4310, L100.0100 #### [facility] [address] [place], [address] MCV (RBC) [Entitic vol] 88.1 fL Normal 81-99 [facility] Comment on above: Performed By: #### L 300.3900, L300.4310, L100.0100 #### [facility] [address] [place], [address] Monocytes/100 WBC (Bld) 8.3 % Normal 0-10 [facility] Comment on above: Performed By: #### L 300.3900, L300.4310, L100.0100 #### [facility] [address] [place], [address] Neutrophils/100 WBC (Bld) 73.0 % High 47-70 [facility] Comment on above: Performed By: #### L 300.3900, L300.4310, L100.0100 #### [facility] [address] [place], [address] Nucleated RBC (Bld) [#/Vol] 0 10*3/uL Normal 0-5 [facility] Comment on above: Performed By: #### L 300.3900, L300.4310, L100.0100 #### [facility] [address] [place], [address] Platelet mean volume (Bld) [Entitic vol] 10.6 fL Normal 6.2-12.0 [facility] Comment on above: Performed By: #### L 300.3900, L300.4310, L100.0100 #### [facility] [address] [place], [address] Platelets (Bld) [#/Vol] 309 10*3/uL Normal 150-450 [facility] Comment on above: Performed By: #### L 300.3900, L300.4310, L100.0100 #### [facility] [address] [place], [address] RBC (Bld) [#/Vol] 4.12 10*6/uL Low 4.2-5.4 [facility] Comment on above: Performed By: #### L 300.3900, L300.4310, L100.0100 #### [facility] [address] [place], [address] RDW SD 41.0 fl Normal 35.1-43.9 [facility] Comment on above: Performed By: #### L 300.3900, L300.4310, L100.0100 #### [facility] [address] [place], [address] WBC (Bld) [#/Vol] 11.4 10*3/uL High 4.4-11.0 [facility] Comment on above: Performed By: #### L 300.3900, L300.4310, L100.0100 #### [facility] [address] [place], [address] CTA Chest W/WO Contraston CTA Chest W/WO Contrast [facility] [address] [place] [address] CTA Chest W/WO Contrast MR#: [id number] Acct: [id number] Name: MATT CALABRESE Rep #: [id number] : 2000 F 24 From: Felton Perez MD PCP: LENA Beatty Status: [facility] ER Study: CTA Chest W/WO Contrast Date of Exam: 07/16/24 Exam# [id number] Ordering Dr: Harvinder Rossi DO PROCEDURE: CTA [...] use of iterative reconstruction technique). Reading Location: [id number] CC: LENA Priest; Dr. Harvinder Rossi DO 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: Signed Normal [facility] Chest PA and Lateralon 07-16 Chest PA and Lateral [facility] [address] [place] [address] Chest PA and Lateral MR#: [id number] Acct: [id number] Name: MATT CALABRESE Rep #: [id number] : 2000 F 24 From: Young Tinajero MD PCP: Jack Priest, BUTTER FAT TESTER-C Status: REG ER Study: Chest PA and Lateral Date of Exam: 07/16/24 Exam# [id number] Ordering Dr: Harvinder Rossi DO PROCEDURE: CHEST PA AND LATERAL REASON FOR EXAM: Pain TECHNIQUE: Frontal and lateral views of the chest. COMPARISON: None. FINDINGS: Heart size is mildly enlarged. The mediastinal contour is unremarkable. The lungs are clear. The bones are unremarkable. RAD/Chest PA and Lateral IMPRESSION: Mild cardiomegaly with no acute pulmonary disease. Reading Location: [facility] CC: BUTTER FAT TESTER-C Jack Priest; Dr. Harvinder Rossi DO 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: Signed Normal [facility] Comprehensive Metabolic Prof ilon 07-16-2024 Albumin [Mass/Vol] 4.3 g/dL Normal 3.5-5.0 [facility] Comment on above: Performed By: #### L 300.3900, L300.4310, L100.0100 #### [facility] [address] [place], [address] Albumin/Globulin [Mass ratio] 1.2 {ratio} Normal 0.9-2.4 [facility] Comment on above: Performed By: #### L 300.3900, L300.4310, L100.0100 #### [facility] [address] [place], [address] ALK PHOS 98 U/L Normal 35-104 [facility] Comment on above: Performed By: #### L 300.3900, L300.4310, L100.0100 #### [facility] [address] [place], [address] ALT [Catalytic activity/Vol] 16 U/L Normal <=34 [facility] Comment on above: Performed By: #### L 300.3900, L300.4310, L100.0100 #### [facility] [address] [place], [address] Anion gap [Moles/Vol] 11 mmol/L Normal 5-15 [facility] Comment on above: Performed By: #### L 300.3900, L300.4310, L100.0100 #### [facility] [address] [place], [address] AST [Catalytic activity/Vol] 21 U/L Normal <=31 [facility] Comment on above: Performed By: #### L 300.3900, L300.4310, L100.0100 #### [facility] [address] [place], [address] Bilirubin [Mass/Vol] 0.18 mg/dL Normal 0.00-1.30 [facility] Comment on above: Performed By: #### L 300.3900, L300.4310, L100.0100 #### [facility] [address] [place], [address] BUN/CRE 19.7 RATIO Normal 10-20 [facility] Comment on above: Performed By: #### L 300.3900, L300.4310, L100.0100 #### [facility] [address] [place], [address] Calcium [Mass/Vol] 9.6 mg/dL Normal 7.6-11.0 [facility] Comment on above: Performed By: #### L 300.3900, L300.4310, L100.0100 #### [facility] [address] [place], [address] Chloride [Moles/Vol] 101 mmol/L Normal 96-108 [facility] Comment on above: Performed By: #### L 300.3900, L300.4310, L100.0100 #### [facility] [address] [place], [address] CO2 [Moles/Vol] 25.8 mmol/L Normal 22.0-29.0 [facility] Comment on above: Performed By: #### L 300.3900, L300.4310, L100.0100 #### [facility] [address] [place], [address] Creatinine [Mass/Vol] 0.7 mg/dL Normal 0.6-1.0 [facility] Comment on above: Performed By: #### L 300.3900, L300.4310, L100.0100 #### [facility] [address] [place], [address] ECRCL 140.26 ml/min Normal [facility] Comment on above: Performed By: #### L 300.3900, L300.4310, L100.0100 #### [facility] [address] [place], [address] GFR/1.73 sq M.predicted among non-blacks MDRD (S/P/Bld) [Vol rate/Area] 124 mL/min/{1.73_m2} Normal >60 [facility] Comment on above: Result Comment: mL/m in/1.73m2 CKD-EPI Creatinine Equation (2020) Performed By: #### L 300.3900, L300.4310, L100.0100 #### [facility] [address] [place], [address] Globulin (S) [Mass/Vol] 3.6 g/dL Normal 2.2-4.2 [facility] Comment on above: Performed By: #### L 300.3900, L300.4310, L100.0100 #### [facility] [address] [place], [address] Glucose [Mass/Vol] 107 mg/dL High 70-99 [facility] Comment on above: Performed By: #### L 300.3900, L300.4310, L100.0100 #### [facility] [address] [place], [address] Potassium [Moles/Vol] 4.0 mmol/L Normal 3.3-5.1 [facility] Comment on above: Performed By: #### L 300.3900, L300.4310, L100.0100 #### [facility] [address] [place], [address] Sodium [Moles/Vol] 138 mmol/L Normal 133-145 [facility] Comment on above: Performed By: #### L 300.3900, L300.4310, L100.0100 #### [facility] [address] [place], [address] T PROT 7.9 g/dL Normal 5.9-8.4 [facility] Comment on above: Performed By: #### L 300.3900, L300.4310, L100.0100 #### [facility] [address] [place], [address] Urea nitrogen [Mass/Vol] 13 mg/dL Normal 4-19 [facility] Comment on above: Performed By: #### L 300.3900, L300.4310, L100.0100 #### [facility] [address] [place], [address] Emergency Department Summary on 07-16-2024 Emergency Department Summary [facility] Medical Records Department [address] [place] [address] Emergency Department Summary 07/16/24 MR#: [id number] Acct: [id number] Name: MATT CALABRESE HELIO Rep #: [id number] : 2000 24 From: Harvinedr Diaz PCP: Jack Priest NP-C Status:DEP ER Location: ED HPI History of Present Illness Chief Complaint: General Illness Informant: patient Narrative Narrative: Presents by private vehicle increasing pain right lung radiating to her back. She is status post bronchoscopy a week ago with biopsies at [facility]. She states 30 years ago diagnosed [...] of PE or DVT. Denies any hemoptysis. [facility] Medical History Ankle pain, left Right wrist [...] hydrocortisone 2.5 % topical cream 1 applic VT QD-BID PRN rectal pa in 07/10/24 Unknown [...] Respiratory Rate (more content not included)... Normal [facility] Lipaseon 07-16-2024 Lipase [Catalytic activity/Vol] 31 U/L Normal 13-75 [facility] Comment on above: Result Comment: Jean Pierre davalos note: LIPASE revised reference range effective 22. New Lipase methodology. Expected to produce lower values than the previous assay method. NEW Reference Range: 13 - 75 U/L Performed By: #### L 300.3900, L300.4310, L100.0100 #### [facility] [address] [place], [address] M100.678on 07-16-2024 M100.678 SARS-CoV-2 (COVID 19 ) Negative INFLUENZA A Negative INFLUENZA B Negative RSV PCR Negative Normal [facility] Comment on above: Performed By: #### L 300.3900, L300.4310, L100.0100 #### [facility] [address] [place], [address] ,Serum,hCG Quali.on 07-16-2024 HCG, SERUM QUAL Negative Normal [facility] Comment on above: Performed By: #### L 300.3900, L300.4310, L100.0100 #### [facility] [address] [place], [address] Urinalysis, Completeon 07-16 BACTERIA 1+ /hpf Normal None Seen [facility] Comment on above: Order Comment: CLEAN CATCH Performed By: #### L 400.0001 #### [facility] [address] [place], [address] EPI,SQUAMOUS 5-10 SEEN Normal 5-10 [facility] Comment on above: Order Comment: CLEAN CATCH Performed By: #### L 400.0001 #### [facility] [address] [place], [address] Mucus Ql (Urine sed) 1+ /hpf Normal [facility] Comment on above: Order Comment: CLEAN CATCH Performed By: #### L 400.0001 #### [facility] [address] [place], [address] RBC 0-5 SEEN Normal 0-5 [facility] Comment on above: Order Comment: CLEAN CATCH Performed By: #### L 400.0001 #### [facility] [address] [place], [address] WBC 5-10 SEEN Normal 0-5 [facility] Comment on above: Order Comment: CLEAN CATCH Performed By: #### L 400.0001 #### [facility] [address] [place], [address] AFP, Tumor Markeron 07-15-19 25 AFP TUMOR JAYLON < 1.8 Normal 0.0-4.7 [facility] Comment on above: Order Comment: CLEAN CATCH Result Comment: [employer] Electrochemiluminescence Immunoassay (ECLIA) Values obtained with different assay methods or kits cannot be used interchangeably. Results cannot be interpreted as absolute evidence of the presence or absence of malignant disease. This test is not interpretable in females. Performed By: #### L 400.0001 #### [facility] [address] [place], [address] JESSIE w/ Reflex Mult Confirmon 07-15-2024 ANTI-DNA (DS)AB TNP Normal [facility] Comment on above: Performed By: #### L 300.3900, L300.4310, L100.0100 #### [facility] [address] [place], [address] ANTISCLERODERM TNP Normal [facility] Comment on above: Performed By: #### L 300.3900, L300.4310, L100.0100 #### [facility] [address] [facility] [id number] ANCAon 07-15-2024 Atypical pANCA <1:20 Normal Neg:<1:20 [facility] Comment on above: Order Comment: CLEAN CATCH Result Comment: The atypical pANCA pattern has been observed in a significant percentage of patients with ulcerative colitis, primary sclerosing cholangitis and autoimmune hepatitis. Performed By: #### L 400.0001 #### [facility] [address] [facility] [address] Cytoplasmic Ab <1:20 Normal Neg:<1:20 [facility] Comment on above: Order Comment: CLEAN CATCH Performed By: #### L 400.0001 #### [facility] [facility] [address] [place], [address] Perinuclear Ab. <1:20 Normal Neg:<1:20 [facility] Comment on above: Order Comment: CLEAN CATCH Result Comment: The presence of positive fluorescence exhibiting P-ANCA or C-ANCA patterns alone is not specific for the diagnosis of Jaciel's Granulomatosis (WG) or microscopic polyangiitis. Decisions about treatment should not be based solely on ANCA IFA results. The International ANCA Group Consensus recommends follow up testing of positive sera with both VT- 3 and MPO-ANCA enzyme immunoassays. As many as 5% serum samples are positive only by EIA. Ref. AM J Clin Pathol 1999;111:507-513. Performed By: #### L 400.0001 #### [facility] [address] [place], [address] Anti-Smooth Muscle ABSon ANTISMOOTH MUSC 4 Units Normal 0-19 [facility] Comment on above: Order Comment: SERUM RF Result Comment: Nega tive 0 - 19 Weak positive 20 - 30 Moderate to strong positive >30 Actin Antibodies are found in 52-85% of patients with autoimmune hepatitis or chronic active hepatitis and in 22% of patients with primary biliary cirrhosis. Performed By: #### L 300.3900, L300.4310, L100.0100 #### [facility] [address] [facility] [address] Ceruloplasminon 07-15-2024 CERULOPLASMIN 31.3 mg/dL Normal 19.0-39.0 [facility] Comment on above: Order Comment: CLEAN CATCH Performed By: #### L 400.0001 #### [facility] [address] [place], [place], [address] Immunoglobulin Aon 5 IMMUNOGLOB A QN 176 mg/dL Normal 87-352 [facility] Comment on above: Order Comment: CLEAN CATCH Result Comment: Perf ormed at: [facility] [address] [id number] Performing Arts Technicians: Julian Wang PhD, Phone: [phone] Performed By: #### L 400.0001 #### [facility] [address] [place], [place], [address] t-Transglutaminase IgAon tTG IGA <2 Normal 0-3 [facility] Comment on above: Order Comment: CLEAN CATCH Result Comment: Nega tive 0 - 3 Weak Positive 4 - 10 Positive >10 Tissue Transglutaminase (tTG) has been identified as the endomysial antigen. Studies have demonstr- ated that endomysial IgA antibodies have over 99% specificity for gluten sensitive enteropathy. Performed By: #### L 400.0001 #### [facility] [address] [place], [place], [address] Anti-Mitochondrial ABon - ANTIMITOCHON AB <20.0 Normal 0.0-20.0 [facility] Comment on above: Result Comment: Nega tive 0.0 - 20.0 Equivocal 20.1 - 24.9 Positive >24.9 Mitochondrial (M2) Antibodies are found in 90-96% of patients with primary biliary cirrhosis. Performed By: #### L 300.3900, L300.4310, L100.0100 #### [facility] [address] [place], [place], [address] CNPNon 07-10-2024 CNPN Normal [facility] Ferritinon 07-10-2024 Ferritin [Mass/Vol] 24 ng/mL Normal 8-252 [facility] Comment on above: Performed By: #### L 300.3900, L300.4310, L100.0100 #### [facility] [address] [place], [address] Gastroenterology Visit Repor ton 07-10-2024 Gastroenterology Visit Report [facility] [address] 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 Normal [facility] Iron+Iron Binding Capacityon 07-10-2024 Iron [Mass/Vol] 51 ug/dL Normal 50-170 [facility] Comment on above: Performed By: #### L 300.3900, L300.4310, L100.0100 #### [facility] [address] [place], [address] IRON SATURATION 13.6 Low 15.0-55.0 [facility] Comment on above: Performed By: #### L 300.3900, L300.4310, L100.0100 #### [facility] [address] [place], [address] TIBC 375 ug/dL Normal 250-450 [facility] Comment on above: Performed By: #### L 300.3900, L300.4310, L100.0100 #### [facility] [address] [place], [address] Prothrombin Time w/INRon INR Coag (PPP) [Relative time] 1.0 {INR} Normal [facility] Comment on above: Performed By: #### L 300.3900, L300.4310, L100.0100 #### [facility] [address] [place], [address] PT Coag (PPP) [Time] 13.1 s Normal 11.7-14.9 [facility] Comment on above: Performed By: #### L 300.3900, L300.4310, L100.0100 #### [facility] [address] [place], [address] ANES POSTPROC EVALon 025 ANES POSTPROC EVAL Normal [facility] ANES PRE-OPon 07-09-2024 ANES PRE-OP Normal [facility] ASPERGILLUS GALACTOMANNAN BA Oscar 07-09-2024 ASPER. AG BAL,QUAL Negative Normal Negative [facility] Comment on above: Order Comment: Speci men Type: SPECIMEN OBTAINED BY LAVAGEOrdering Facility: [facility] Address: [address] [place] [address] Result Comment: Aspe rgillus Galactomannan antigen assay [...] is required. Performed By: #### A SGALB ####[facility] [id number] [place] [address] [place] ASPERGILLUS GALACTOMANNAN 0.05 Index Value Normal <=0.49 [facility] Comment on above: Order Comment: Speci men Type: SPECIMEN OBTAINED BY LAVAGEOrdering Facility: [facility] Address: [address] [place] [address] Performed By: #### A SGALB ####[facility]CLIA [id number] [place] [address] [place] Aldolaseon 07-09-2024 ALDOLASE 4.9 U/L Normal 3.3-10.3 [facility] Comment on above: Result Comment: Perf ormed at: [facility] [address] [id number] Performing Arts Technicians: Julian Wang PhD, Phone: [phone] Performed By: #### L 400.0001, L3100.5500, L501.3620, L3100.7000, L500.4050, L100.0100, L3100.7950, L101.9900 ####[facility] [id number] [facility] [place], [address] Anti-dsDNA Abon 07-09-2024 ANTI-DNA (DS)AB <1 Normal 0-9 [facility] Comment on above: Result Comment: Nega tive <5 Equivocal 5 - 9 Positive >9 Performed By: #### L 400.0001, L3100.5500, L501.3620, L3100.7000, L500.4050, L100.0100, L3100.7950, L101.9900 ####[facility] [id number] [facility] [place], [address] Antinuclear Antibody, IFAon 07-09-2024 JESSIE, IFA Negative Normal . [facility] Comment on above: Result Comment: Nega tive <1:80 Borderline 1:80 Positive >1:80 ICAP nomenclature: AC-0 For more information about Hep-2 cell patterns use ANApatterns.org, the official website for the International Consensus on Antinuclear Antibody (JESSIE) Patterns (ICAP). Performed at: - [facility], [place], [place] [id number] Performing Arts Technicians: Julian Wang PhD, Phone: [phone] Performed By: #### L 400.0001, L3100.5500, L501.3620, L3100.7000, L500.4050, L100.0100, L3100.7950, L101.9900 ####[facility] [address] [place], [address] BAL MANUAL DIFFon 07-09-2024 DIF TTL, BA LAVAGE 100 cells counted Normal [facility] Comment on above: Order Comment: Speci men Type: SPECIMEN OBTAINED BY LAVAGEOrdering Facility: [facility] Address: [address] [place] [address] Performed By: #### Merced MANRIQUE [id number] ####[facility] [id number] [place] [address] [place] LYMPH%, BA LAVAGE 3 % Normal [facility] Comment on above: Order Comment: Speci men Type: SPECIMEN OBTAINED BY LAVAGEOrdering Facility: [facility] Address: [address] [place] [address] Performed By: #### Merced MANRIQUE [id number] ####[facility] [id number] [place] [address] [place] MACRO%, BA LAVAGE 94 % Normal [facility] Comment on above: Order Comment: Speci men Type: SPECIMEN OBTAINED BY LAVAGEOrdering Facility: [facility] Address: [address] [place] [address] Performed By: #### Merced MANRIQUE [id number] ####[facility] [id number] [place] [address] [place] NEUT%, BA LAVAGE 3 % Normal [facility] Comment on above: Order Comment: Speci men Type: SPECIMEN OBTAINED BY LAVAGEOrdering Facility: [facility] Address: [address] [place] [address] Performed By: #### Merced MANRIQUE [id number] ####[facility] [id number] [place] [address] [place] BAL ROUTINE BFLon 07-09-2024 BAL COMMENT Normal [facility] Comment on above: Order Comment: Speci men Type: SPECIMEN OBTAINED BY LAVAGEOrdering Facility: [facility] Address: [address] [place] [address] Result Comment: Coun t may be inaccurate due toDisintegration Performed By: #### Merced MANRIQUE [id number] ####[facility] [id number] [place] [address] [place] Clarity (Unsp spec) Clear Normal Clear [facility] Comment on above: Order Comment: Speci men Type: SPECIMEN OBTAINED BY LAVAGEOrdering Facility: [facility] Address: [address] [place] [address] Performed By: #### Merced MANRIQUE [id number] ####[facility] [id number] [place] [address] [place] Color (Bronch spec) Colorless Normal Colorless [facility] Comment on above: Order Comment: Speci men Type: SPECIMEN OBTAINED BY LAVAGEOrdering Facility: [facility] Address: [address] [place] [address] Performed By: #### Merced MANRIQUE, [id number] ####[facility] [id number] [place] [address] [place] RBC LM.HPF (BAL) [#/Area] 10 /uL Normal Reference range not established. [facility] Comment on above: Order Comment: Speci men Type: SPECIMEN OBTAINED BY LAVAGEOrdering Facility: [facility] Address: [address] [place] [address] Performed By: #### Merced MANRIQUE [id number] ####[facility] [id number] [place] [address] [place] WBC Manual cnt (Bronch spec) [#/Vol] 129 /uL Normal Reference range not established. [facility] Comment on above: Order Comment: Speci men Type: SPECIMEN OBTAINED BY LAVAGEOrdering Facility: [facility] Address: [address] [place] [address] Performed By: #### Merced MANRIQUE [id number] ####[facility]CL[facility] [id number] [place] [address] [place] Bacteria BAL Aerobe Culton 0 07-09-2024 Bacteria identified Aer cx Nom (BAL) ORGANISM ID: 1 100 CFU/mL normal respiratory sandra GRAM STAIN: No organisms seen No Polymorphonuclear Leukocytes Rare Ciliated Epithelial cells Gram stain performed on cytospun specimen. Abnormal [facility] Comment on above: Performed By: #### 4 3441-5 ####[facility] [id number] [place] [address] [place]#### 580-1, 69540-9 ####[facility] [id number] [place] [address] [place] Bacteria Spec Anaerobe Culto n 07-09-2024 Bacteria identified Anaer cx Nom (Unsp spec) Negative Normal [facility] Comment on above: Performed By: #### 1 1475-1 ####[facility] [id number] [place] [id number] [place]#### 635-3, 71527-1 ####[facility] [id number] [place] [address] [place] Bacteria Tiss Culton 025 Bacteria identified Cx Nom (Tiss) ORGANISM ID: 1 Rare normal respiratory sandra GRAM STAIN: No organisms seen Rare Polymorphonuclear leukocytes Normal [facility] Comment on above: Performed By: #### 1 1475-1 ####[facility]CLIA [id number] [place] [address] [place]#### 635-3, 02461-8 ####[facility]CL[facility] [id number] [place] [address] [place] Bronchoscopyon 07-09-2024 Bronchoscopy Normal [facility] CD3 Cells NFr Bronchon 07-09 CD3 cells/100 cells (Bronch spec) 86 % Normal [facility] Comment on above: Order Comment: Speci men Type: SPECIMEN OBTAINED BY LAVAGEOrdering Facility: [facility] Address: [address] [place] [address] Performed By: #### 3 2752-8 ####[facility] [id number] [place] [address] [place] CD3 cells/100 cells (Bronch spec)on 07-09-2024 CD3+CD4+ (T4 helper) cells/100 cells (Bronch spec) 48 % Normal [facility] Comment on above: Order Comment: Speci men Type: SPECIMEN OBTAINED BY LAVAGEOrdering Facility: [facility] Address: [address] [place] [address] Performed By: #### 3 2752-8 ####[facility] LABIA [id number] [place] [address] [place] CD3+CD4+ (T4 helper) cells/CD3+CD8+ (T8 suppressor cells) cells (Bronch spec) [# ratio] 1.37 Normal [facility] Comment on above: Order Comment: Speci men Type: SPECIMEN OBTAINED BY LAVAGEOrdering Facility: [facility] Address: [address] [place] [address] Performed By: #### 3 2752-8 ####[facility]CLIA [id number] [place] [address] [place] CD3+CD8+ (T8 suppressor cells) cells/100 cells (Bronch spec) 35 % Normal [facility] Comment on above: Order Comment: Speci men Type: SPECIMEN OBTAINED BY LAVAGEOrdering Facility: [facility] Address: [address] [place] [address] Performed By: #### 3 2752-8 ####[facility]CLIA [id number] [id number] OF [facility] CNPNon 07-09-2024 CNPN Telephone ([facility]) ----- MATT CALABRESE ([id number]) 89 F Date Time Provider Department 07/09/24 LENORA DOW [facility] During your visit today, we recorded the [...] ideation Date Reviewed: 07/09/2024 Reviewed by: Marybeth Marquez, LEO - Fully Assessed Prescriptions as of 07/11/2024 [...] Status:Closed by LENORA DOW on 07/11/24 Normal [facility] CYTOLOGY NON-GYNon 5 ADEQUACY INTERPRETATION Normal [facility] Comment on above: Order Comment: Speci men Type: SPECIMEN OBTAINED BY ASPIRATIONOrdering Facility: [facility] Address: [address] [place] [address] Result Comment: A: # 1: Extensive necrosis [...] a discrete evaluation episode.Intra-procedural assessment performed at [facility], [address] [place] [address] Performed By: #### C YTONON ####[facility]CLIA [id number] [address] [place] CASE REPORT Normal [facility] Comment on above: Order Comment: Speci men Type: SPECIMEN OBTAINED BY ASPIRATIONOrdering Facility: [facility] Address: [address] [place] [address] Result Comment: [facility] Cytology Report Case: [id number] Provider: Che Hardy MD Collected: 07/09/2024 11:30 AMOrdering Location: Admitting Received: 07/09/2024 12:22 PMPathologist: Siomara Amaro MDSpecimens: A) - Lymph Node, Transbronchial, 4R B) - Lymph Node, Transbronchial, Station 7 Performed By: #### C YTONON ####[facility] LABIA [id number] [place] [address] [place] CLINICAL HISTORY Childhood asthma, histoplasmosis and lung nodules Normal [facility] Comment on above: Order Comment: Speci men Type: SPECIMEN OBTAINED BY ASPIRATIONOrdering Facility: [facility] Address: [address] [place] [address] Performed By: #### C YTONON ####[facility] LABCLIA [id number] [place] [address] [place] DIAGNOSIS COMMENT In parts A and B, th e GMS stain highlights 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 In parts A and B, the AFB stain is negative for mycobacteria. Please correlate with microbiology culture results. Normal [facility] Comment on above: Order Comment: Speci men Type: SPECIMEN OBTAINED BY ASPIRATIONOrdering Facility: [facility] Address: [address] [place] [address] Performed By: #### C YTONON ####[facility]CLIA [id number] [place] [address] [place] FINAL DIAGNOSIS Normal [facility] Comment on above: Order Comment: Speci men Type: SPECIMEN OBTAINED BY ASPIRATIONOrdering Facility: [facility] Address: [facility] [place] [address] Result Comment: A - Lymph Node, Transbronchial, [...] 1639 EST Performed By: #### C YTONON ####[facility] LABCLIA [id number] [place] [address] [place] FINAL PERFORMING LAB Normal [facility] Comment on above: Order Comment: Speci men Type: SPECIMEN OBTAINED BY ASPIRATIONOrdering Facility: [facility] Address: [address] [place] [address] Result Comment: Tech nical component, fire prevention chief screening performed at [facility], [address] [place] [address] CLIA# [id number] interpretation performed at [facility], [address] [place], [place] [address] CLIA# [id number] Director: John Zuluaga M.D. Performed By: #### C YTONON ####[facility]CLIA [id number] [place] [address] [place] GROSS DESCRIPTION Normal [facility] Comment on above: Order Comment: Speci men Type: SPECIMEN OBTAINED BY ASPIRATIONOrdering Facility: [facility] Address: [address] [place] [address] Result Comment: A. L ymph Node, Gmovdryndvmjkz63 cc hazy pink CytoLyt with particles. ThinPrep and Cell Block prepared and 6 smears (3 air dried and 3 fixed).B. Lymph Node, Flxdazzqmarxvg88 cc hazy pink CytoLyt with particles. ThinPrep and Cell Block prepared and 6 smears (3 air dried and 3 fixed). Performed By: #### C YTONON ####[facility] LABCLIA [id number] [place] [address] [place] Fungus Spec Culton Fungus identified Cx Nom (Unsp spec) CULTURE, FUNGAL: No Fungus isolated after 28 days Normal [facility] Comment on above: Performed By: #### 4 3441-5 ####[facility]CLIA [id number] [place] [address] [place]#### 580-1, 79351-2 ####[facility]CLIA [id number] [place] [address] [place] L. pneumophila DNA SHO+probe Ql (Unsp spec)on 07-09-2024 Legionella spp Spec Ql SHO+probe Not detected Normal Not detected [facility] Comment on above: Order Comment: Speci men Type: SPECIMEN OBTAINED BY LAVAGEOrdering Facility: [facility] Address: [address] [place] [address] Performed By: #### 2 1363-7 ####[facility]CLIA [id number] [place] [address] [place] Microorganism Spec Culton Microorganism identified Cx Nom (Unsp spec) CULTURE, FUNGAL: No Fungus isolated after 28 days FUNGAL SMEAR: No fungus seen Normal [facility] Comment on above: Performed By: #### 1 1475-1 ####[facility] LABCLIA [id number] [place] [id number] [place]#### 635-3, 53172-5 ####[facility]CLIA [id number] [place] [address] [place] Microorganism identified Cx Nom (Unsp spec) CULTURE, AFB: No Acid Fast Bacilli isolated after 42 days AFB STAIN: No acid fast bacilli seen by fluorochrome stain Normal [facility] Comment on above: Performed By: #### 1 1475-1 ####[facility]CLIA [id number] [place] [address] [place]#### 635-3, 11123-7 ####[facility]CLIA [id number] [place] [address] [place] Microorganism identified Cx Nom (Unsp spec) CULTURE, AFB: No Acid Fast Bacilli isolated after 42 days AFB STAIN: No acid fast bacilli seen by fluorochrome stain Normal [facility] Comment on above: Performed By: #### 4 3441-5 ####[facility]CLIA [id number] [place] [address] [place]#### 580-1, 49814-2 ####[facility]CLIA [id number] [place] [address] [place] NURSING PROGon 07-09-2024 NURSING PROG Normal [facility] PNEUMOCYSTIS JIROVECII PCRon 07-09-2024 P. jiroveci DNA SHO+probe (Unsp spec) [#/Vol] Not detected Normal Pneumocystis jirovecii Not Detected by PCR [facility] Comment on above: Order Comment: Speci men Type: SPECIMEN OBTAINED BY LAVAGEOrdering Facility: [facility] Address: [address] [place] [address] Performed By: #### P JPCR ####[facility] LABCLIA [id number] [place] [address] [place] Respiratory pathogens DNA an d RNA panel SHO+probe (Nph)on 07-09-2024 Adenovirus hexon gene SHO+probe Ql (Nph) Not detected Normal Not detected [facility] Comment on above: Order Comment: Speci men Type: SPECIMEN OBTAINED BY LAVAGEOrdering Facility: [facility] Address: [address] [place] [address] Performed By: #### 7 8922-2 ####[facility] LABIA [id number] [place] [address] [place] C. pneumoniae DNA SHO+probe Ql (Unsp spec) Not detected Normal Not detected [facility] Comment on above: Order Comment: Speci men Type: SPECIMEN OBTAINED BY LAVAGEOrdering Facility: [facility] Address: [address] [place] [address] Performed By: #### 7 8922-2 ####[facility] LABIA [id number] [place] [address] [place] FLUAV RNA SHO+probe Ql (Unsp spec) Not detected Normal Not detected [facility] Comment on above: Order Comment: Speci men Type: SPECIMEN OBTAINED BY LAVAGEOrdering Facility: [facility] Address: [address] [place] [address] Performed By: #### 7 8922-2 ####[facility] LABIA [id number] [place] [address] [place] FLUBV RNA SHO+probe Ql (Unsp spec) Not detected Normal Not detected [facility] Comment on above: Order Comment: Speci men Type: SPECIMEN OBTAINED BY LAVAGEOrdering Facility: [facility] Address: [address] [place] [address] Performed By: #### 7 8922-2 ####[facility] LABCLIA [id number] [place] [address] [place] HCoV 229E+OC43 RNA SHO+probe Ql (Nph) Not detected Normal Not detected [facility] Comment on above: Order Comment: Speci men Type: SPECIMEN OBTAINED BY LAVAGEOrdering Facility: [facility] Address: [address] [place] [address] Performed By: #### 7 8922-2 ####[facility] LABIA [id number] [place] [address] [place] HCoV HKU1 RNA SHO+probe Ql (Unsp spec) Not detected Normal Not detected [facility] Comment on above: Order Comment: Speci men Type: SPECIMEN OBTAINED BY LAVAGEOrdering Facility: [facility] Address: [address] [place] [address] Performed By: #### 7 8922-2 ####[facility] LABIA [id number] [place] [address] [place] HCoV NL63 RNA SHO+non-probe Ql (Nph) Not detected Normal Not detected [facility] Comment on above: Order Comment: Speci men Type: SPECIMEN OBTAINED BY LAVAGEOrdering Facility: [facility] Address: [address] [place] [address] Performed By: #### 7 8922-2 ####[facility] LABIA [id number] [place] [address] [place] HCoV OC43 RNA SHO+probe Ql (Unsp spec) Not detected Normal Not detected [facility] Comment on above: Order Comment: Speci men Type: SPECIMEN OBTAINED BY LAVAGEOrdering Facility: [facility] Address: [address] [place] [address] Performed By: #### 7 8922-2 ####[facility] LABIA [id number] [place] [address] [place] hMPV RNA SHO+probe Ql (Unsp spec) Not detected Normal Not detected [facility] Comment on above: Order Comment: Speci men Type: SPECIMEN OBTAINED BY LAVAGEOrdering Facility: [facility] Address: [address] [place] [address] Performed By: #### 7 8922-2 ####[facility] LABCLIA [id number] [place] [address] [place] M. pneumoniae DNA SHO+probe Ql (Unsp spec) Not detected Normal Not detected [facility] Comment on above: Order Comment: Speci men Type: SPECIMEN OBTAINED BY LAVAGEOrdering Facility: [facility] Address: [address] [place] [address] Performed By: #### 7 8922-2 ####[facility] LABCLIA [id number] [place] [address] [place] Parainfluenza virus 1 RNA SHO+probe Ql (Unsp spec) Not detected Normal Not detected [facility] Comment on above: Order Comment: Speci men Type: SPECIMEN OBTAINED BY LAVAGEOrdering Facility: [facility] Address: [address] [place] [address] Performed By: #### 7 8922-2 ####[facility] LABCLIA [id number] [place] [address] [place] Parainfluenza virus 2 RNA SHO+probe Ql (Unsp spec) Not detected Normal Not detected [facility] Comment on above: Order Comment: Speci men Type: SPECIMEN OBTAINED BY LAVAGEOrdering Facility: [facility] Address: [address] [place] [address] Performed By: #### 7 8922-2 ####[facility] LABCLIA [id number] [place] [address] [place] Parainfluenza virus 3 RNA SHO+probe Ql (Unsp spec) Not detected Normal Not detected [facility] Comment on above: Order Comment: Speci men Type: SPECIMEN OBTAINED BY LAVAGEOrdering Facility: [facility] Address: [address] [place] [address] Performed By: #### 7 8922-2 ####[facility] LABIA [id number] [place] [address] [place] Parainfluenza virus 4 P gene SHO+probe Ql (Nph) Not detected Normal Not detected [facility] Comment on above: Order Comment: Speci men Type: SPECIMEN OBTAINED BY LAVAGEOrdering Facility: [facility] Address: [address] [place] [address] Performed By: #### 7 8922-2 ####[facility] LABCLIA [id number] [place] [address] [place] Rhinovirus 5' UTR RNA SHO+probe Ql (Nph) Not detected Normal Not detected [facility] Comment on above: Order Comment: Speci men Type: SPECIMEN OBTAINED BY LAVAGEOrdering Facility: [facility] Address: [address] [place] [address] Performed By: #### 7 8922-2 ####[facility] LABIA [id number] [place] [address] [place] RSV RNA SHO+probe Ql (Upper resp) Not detected Normal Not detected [facility] Comment on above: Order Comment: Speci men Type: SPECIMEN OBTAINED BY LAVAGEOrdering Facility: [facility] Address: [address] [place] [address] Performed By: #### 7 8922-2 ####[facility] LABIA [id number] [place] [address] [place] SARS-CoV-2 (COVID-19) RNA SHO+probe Ql (Unsp spec) Not detected Normal See comment [facility] Comment on above: Order Comment: Speci men Type: SPECIMEN OBTAINED BY LAVAGEOrdering Facility: [facility] Address: [address] [place] [address] Performed By: #### 7 8922-2 ####[facility] LABIA [id number] [place] [address] [place] XR CHEST 1V FRONTAL PORTon 0 07-09-2024 XR CHEST 1V FRONTAL PORT Normal [facility] CBC W/Diff, Automatedon 02 Absolute Lymph 1.98 X10 3/uL Normal 0.83-4.51 [facility] Comment on above: Performed By: #### L 400.0001, L3100.5500, L501.3620, L3100.7000, L500.4050, L100.0100, L3100.7950, L101.9900 #### [facility] [address] [place], [address] Absolute Neut 5.1 X10 3/uL Normal 2.0-7.7 [facility] Comment on above: Performed By: #### L 400.0001, L3100.5500, L501.3620, L3100.7000, L500.4050, L100.0100, L3100.7950, L101.9900 #### [facility] [address] [facility] [place], [address] Basophils/100 WBC (Bld) 0.4 % Normal 0-1 [facility] Comment on above: Performed By: #### L 400.0001, L3100.5500, L501.3620, L3100.7000, L500.4050, L100.0100, L3100.7950, L101.9900 #### [facility] [address] [facility] [place], [address] Eosinophils/100 WBC (Bld) 1.2 % Normal 0-5 [facility] Comment on above: Performed By: #### L 400.0001, L3100.5500, L501.3620, L3100.7000, L500.4050, L100.0100, L3100.7950, L101.9900 #### [facility] [address] [place], [address] Erythrocyte distribution width (RBC) [Ratio] 12.7 % Normal 11.6-14.6 [facility] Comment on above: Performed By: #### L 400.0001, L3100.5500, L501.3620, L3100.7000, L500.4050, L100.0100, L3100.7950, L101.9900 #### [facility] [address] [place], [address] Hematocrit (Bld) [Volume fraction] 37.2 % Normal 37-47 [facility] Comment on above: Performed By: #### L 400.0001, L3100.5500, L501.3620, L3100.7000, L500.4050, L100.0100, L3100.7950, L101.9900 #### [facility] [address] [place], [address] Hemoglobin (Bld) [Mass/Vol] 12.0 g/dL Normal 12.0-15.0 [facility] Comment on above: Performed By: #### L 400.0001, L3100.5500, L501.3620, L3100.7000, L500.4050, L100.0100, L3100.7950, L101.9900 #### [facility] [address] [place], [address] IG% 0.300 Normal 0.0-0.9 [facility] Comment on above: Result Comment: IG% - Immature Granulocytes (promyelocytes, myelocytes and metamyelocytes) > 1% indicates that a LEFT SHIFT is Present. Performed By: #### L 400.0001, L3100.5500, L501.3620, L3100.7000, L500.4050, L100.0100, L3100.7950, L101.9900 #### [facility] [address] [place], [address] Lymphocytes/100 WBC (Bld) 26.1 % Normal 19-41 [facility] Comment on above: Performed By: #### L 400.0001, L3100.5500, L501.3620, L3100.7000, L500.4050, L100.0100, L3100.7950, L101.9900 #### [facility] [address] [place], [address] MCH (RBC) [Entitic mass] 28.3 pg Normal 27.0-32.0 [facility] Comment on above: Performed By: #### L 400.0001, L3100.5500, L501.3620, L3100.7000, L500.4050, L100.0100, L3100.7950, L101.9900 #### [facility] [address] [facility] [place], [address] MCHC (RBC) [Mass/Vol] 32.3 g/dL Normal 32-36 [facility] Comment on above: Performed By: #### L 400.0001, L3100.5500, L501.3620, L3100.7000, L500.4050, L100.0100, L3100.7950, L101.9900 #### [facility] [address] [facility] [place], [address] MCV (RBC) [Entitic vol] 87.7 fL Normal 81-99 [facility] Comment on above: Performed By: #### L 400.0001, L3100.5500, L501.3620, L3100.7000, L500.4050, L100.0100, L3100.7950, L101.9900 #### [facility] [address] [facility] [place], [address] Monocytes/100 WBC (Bld) 5.4 % Normal 0-10 [facility] Comment on above: Performed By: #### L 400.0001, L3100.5500, L501.3620, L3100.7000, L500.4050, L100.0100, L3100.7950, L101.9900 #### [facility] [address] [facility] [place], [address] Neutrophils/100 WBC (Bld) 66.6 % Normal 47-70 [facility] Comment on above: Performed By: #### L 400.0001, L3100.5500, L501.3620, L3100.7000, L500.4050, L100.0100, L3100.7950, L101.9900 #### [facility] [address] [place], [address] Nucleated RBC (Bld) [#/Vol] 0 10*3/uL Normal 0-5 [facility] Comment on above: Performed By: #### L 400.0001, L3100.5500, L501.3620, L3100.7000, L500.4050, L100.0100, L3100.7950, L101.9900 #### [facility] [address] [facility] [place], [address] Platelet mean volume (Bld) [Entitic vol] 10.7 fL Normal 6.2-12.0 [facility] Comment on above: Performed By: #### L 400.0001, L3100.5500, L501.3620, L3100.7000, L500.4050, L100.0100, L3100.7950, L101.9900 #### [facility] [address] [facility] [place], [address] Platelets (Bld) [#/Vol] 304 10*3/uL Normal 150-450 [facility] Comment on above: Performed By: #### L 400.0001, L3100.5500, L501.3620, L3100.7000, L500.4050, L100.0100, L3100.7950, L101.9900 #### [facility] [address] [facility] [facility] [place], [address] RBC (Bld) [#/Vol] 4.24 10*6/uL Normal 4.2-5.4 [facility] Comment on above: Performed By: #### L 400.0001, L3100.5500, L501.3620, L3100.7000, L500.4050, L100.0100, L3100.7950, L101.9900 #### [facility] [address] [place], [address] RDW SD 39.9 fl Normal 35.1-43.9 [facility] Comment on above: Performed By: #### L 400.0001, L3100.5500, L501.3620, L3100.7000, L500.4050, L100.0100, L3100.7950, L101.9900 #### [facility] [address] [place], [address] WBC (Bld) [#/Vol] 7.6 10*3/uL Normal 4.4-11.0 [facility] Comment on above: Performed By: #### L 400.0001, L3100.5500, L501.3620, L3100.7000, L500.4050, L100.0100, L3100.7950, L101.9900 #### [facility] [address] [place], [address] CPK Total, Creatine Kinaseon 07-07-2024 CPK TOTAL 84 U/L Normal 26-192 [facility] Comment on above: Performed By: #### L 400.0001, L3100.5500, L501.3620, L3100.7000, L500.4050, L100.0100, L3100.7950, L101.9900 ####[facility] [address] [place], [address] Comprehensive Metabolic Prof ilon 07-07-2024 Albumin [Mass/Vol] 3.6 g/dL Normal 3.2-5.0 [facility] Comment on above: Performed By: #### L 400.0001, L3100.5500, L501.3620, L3100.7000, L500.4050, L100.0100, L3100.7950, L101.9900 #### [facility] [address] [place], [address] Albumin/Globulin [Mass ratio] 0.9 {ratio} Normal 0.9-2.4 [facility] Comment on above: Performed By: #### L 400.0001, L3100.5500, L501.3620, L3100.7000, L500.4050, L100.0100, L3100.7950, L101.9900 #### [facility] [address] [place], [place], [id number] (914 ALK P 73 U/L Normal 45-117 [facility] Comment on above: Performed By: #### L 400.0001, L3100.5500, L501.3620, L3100.7000, L500.4050, L100.0100, L3100.7950, L101.9900 #### [facility] [address] [place], [place], [id number] (640) ALT [Catalytic activity/Vol] 25 U/L Normal 13-56 [facility] Comment on above: Performed By: #### L 400.0001, L3100.5500, L501.3620, L3100.7000, L500.4050, L100.0100, L3100.7950, L101.9900 #### [facility] [address] [place], [place], [id number] (432 AST [Catalytic activity/Vol] 20 U/L Normal 15-37 [facility] Comment on above: Performed By: #### L 400.0001, L3100.5500, L501.3620, L3100.7000, L500.4050, L100.0100, L3100.7950, L101.9900 #### [facility] [address] [place], [place], [id number] (549 Bilirubin [Mass/Vol] 0.20 mg/dL Normal 0.20-1.00 [facility] Comment on above: Result Comment: For patients on eltrombopag therapy, use of Dimension [place] TBIL is not recommended. Performed By: #### L 400.0001, L3100.5500, L501.3620, L3100.7000, L500.4050, L100.0100, L3100.7950, L101.9900 #### [facility] [address] [place], [address] BUN/CRE 19.3 RATIO Normal 10-20 [facility] Comment on above: Performed By: #### L 400.0001, L3100.5500, L501.3620, L3100.7000, L500.4050, L100.0100, L3100.7950, L101.9900 #### [facility] [address] [place], [address] CA,Total 9.1 mg/dL Normal 8.5-10.1 [facility] Comment on above: Performed By: #### L 400.0001, L3100.5500, L501.3620, L3100.7000, L500.4050, L100.0100, L3100.7950, L101.9900 #### [facility] [address] [place], [address] Chloride [Moles/Vol] 108 mmol/L High 98-107 [facility] Comment on above: Performed By: #### L 400.0001, L3100.5500, L501.3620, L3100.7000, L500.4050, L100.0100, L3100.7950, L101.9900 #### [facility] [address] [place], [address] CO2 [Moles/Vol] 26.0 mmol/L Normal 21.0-32.0 [facility] Comment on above: Performed By: #### L 400.0001, L3100.5500, L501.3620, L3100.7000, L500.4050, L100.0100, L3100.7950, L101.9900 #### [facility] [address] [place], [address] Creatinine [Mass/Vol] 0.73 mg/dL Normal 0.55-1.02 [facility] Comment on above: Result Comment: The validity of the calculated GFR GFRAA in patients over 70 years has not been determined. Clinical correlation is essential. Performed By: #### L 400.0001, L3100.5500, L501.3620, L3100.7000, L500.4050, L100.0100, L3100.7950, L101.9900 #### [facility] [address] [place], [address] EST GFR - AA 126 mL/min Normal >60 [facility] Comment on above: Result Comment: Afri can [place] GFR Calc Performed By: #### L 400.0001, L3100.5500, L501.3620, L3100.7000, L500.4050, L100.0100, L3100.7950, L101.9900 #### [facility] [address] [place], [place], [id number] (810) GAP 6 Normal 5-15 [facility] Comment on above: Performed By: #### L 400.0001, L3100.5500, L501.3620, L3100.7000, L500.4050, L100.0100, L3100.7950, L101.9900 #### [facility] [address] [place], [place], [id number] (137) GFR/1.73 sq M.predicted among non-blacks MDRD (S/P/Bld) [Vol rate/Area] 104 mL/min/{1.73_m2} Normal >60 [facility] Comment on above: Result Comment: Non- GFR Calc Performed By: #### L 400.0001, L3100.5500, L501.3620, L3100.7000, L500.4050, L100.0100, L3100.7950, L101.9900 #### [facility] [address] [place], [place], [phone] (904) Globulin (S) [Mass/Vol] 3.9 g/dL Normal 2.2-4.2 [facility] Comment on above: Performed By: #### L 400.0001, L3100.5500, L501.3620, L3100.7000, L500.4050, L100.0100, L3100.7950, L101.9900 #### [facility] [address] [place], [address] Glucose [Mass/Vol] 104 mg/dL Normal 74-106 [facility] Comment on above: Result Comment: Fast ing Glucose result from 100 to 125 mg/dL suggests IMPAIRED HOMEOSTASIS per A.D.A. criteria. Performed By: #### L 400.0001, L3100.5500, L501.3620, L3100.7000, L500.4050, L100.0100, L3100.7950, L101.9900 #### [facility] [address] [place], [address] Potassium [Moles/Vol] 3.9 mmol/L Normal 3.5-5.1 [facility] Comment on above: Performed By: #### L 400.0001, L3100.5500, L501.3620, L3100.7000, L500.4050, L100.0100, L3100.7950, L101.9900 #### [facility] [address] [place], [address] Sodium [Moles/Vol] 140 mmol/L Normal 136-145 [facility] Comment on above: Performed By: #### L 400.0001, L3100.5500, L501.3620, L3100.7000, L500.4050, L100.0100, L3100.7950, L101.9900 #### [facility] [address] [place], [address] T PROT 7.5 g/dL Normal 6.4-8.2 [facility] Comment on above: Performed By: #### L 400.0001, L3100.5500, L501.3620, L3100.7000, L500.4050, L100.0100, L3100.7950, L101.9900 #### [facility] [address] [place], [address] Urea nitrogen [Mass/Vol] 14 mg/dL Normal 7-18 [facility] Comment on above: Performed By: #### L 400.0001, L3100.5500, L501.3620, L3100.7000, L500.4050, L100.0100, L3100.7950, L101.9900 #### [facility] [address] [place], [address] Erythrocyte Sed Rateon 07-07 SED RATE 20 mm/hr Normal 0-30 [facility] Comment on above: Performed By: #### L 400.0001, L3100.5500, L501.3620, L3100.7000, L500.4050, L100.0100, L3100.7950, L101.9900 ####[facility] [address] [place], [address] Urinalysis, Completeon 07-07 RBC 0 SEEN Normal 0-5 [facility] Comment on above: Order Comment: Urine , Random Performed By: #### L 400.0001, L3100.5500, L501.3620, L3100.7000, L500.4050, L100.0100, L3100.7950, L101.9900 #### [facility] [address] [place], [address] BACTERIA 0 SEEN Normal None Seen [facility] Comment on above: Order Comment: Urine , Random Performed By: #### L 400.0001, L3100.5500, L501.3620, L3100.7000, L500.4050, L100.0100, L3100.7950, L101.9900 #### [facility] [address] [place], [address] EPI,SQUAMOUS 0 SEEN Normal 5-10 [facility] Comment on above: Order Comment: Urine , Random Performed By: #### L 400.0001, L3100.5500, L501.3620, L3100.7000, L500.4050, L100.0100, L3100.7950, L101.9900 #### [facility] [address] [place], [address] Mucus Ql (Urine sed) 0 SEEN Normal [facility] Comment on above: Order Comment: Urine , Random Performed By: #### L 400.0001, L3100.5500, L501.3620, L3100.7000, L500.4050, L100.0100, L3100.7950, L101.9900 #### [facility] [address] [place], [address] WBC 0 SEEN Normal 0-5 [facility] Comment on above: Order Comment: Urine , Random Performed By: #### L 400.0001, L3100.5500, L501.3620, L3100.7000, L500.4050, L100.0100, L3100.7950, L101.9900 #### [facility] [address] [place], [address] NURSING PROGon 07-04-2024 NURSING PROG Normal [facility] CNOVon 07-02-2024 CNOV Normal [facility] Comprehensive metabolic 2000 panelon 07-02-2024 Albumin [Mass/Vol] 4.2 g/dL Normal 3.9-4.9 [facility] Comment on above: Order Comment: Speci men Type: BLOOD SPECIMENOrdering Facility: [facility] Address: [address] [place] [address] Performed By: #### 2 4323-8 ####[facility] LABCLIA [id number] [facility] [place], [place] [address] [place] ALP [Catalytic activity/Vol] 84 U/L Normal 34-123 [facility] Comment on above: Order Comment: Speci men Type: BLOOD SPECIMENOrdering Facility: [facility] Address: [address] [place] [id number] Performed By: #### 2 4323-8 ####[facility] LABCLIA [id number] [address] [address] [place] ALT [Catalytic activity/Vol] 17 U/L Normal 7-38 [facility] Comment on above: Order Comment: Speci men Type: BLOOD SPECIMENOrdering Facility: [facility] Address: [address] [place] [address] Performed By: #### 2 4323-8 ####[facility] LABCLIA [id number] [place] [address] [place] Anion gap [Moles/Vol] 12 mmol/L Normal 8-15 [facility] Comment on above: Order Comment: Speci men Type: BLOOD SPECIMENOrdering Facility: [facility] Address: [address] [place] [address] Performed By: #### 2 4323-8 ####[facility] LABCLIA [id number] [place] [address] [place] AST [Catalytic activity/Vol] 23 U/L Normal 13-35 [facility] Comment on above: Order Comment: Speci men Type: BLOOD SPECIMENOrdering Facility: [facility] Address: [address] [place], [place] [address] Performed By: #### 2 4323-8 ####[facility] LABCLIA [id number] [place] [id number] [place] Bilirubin [Mass/Vol] mg/dL Low 0.2-1.3 [facility] Comment on above: Order Comment: Speci men Type: BLOOD SPECIMENOrdering Facility: [facility] Address: [address] [place], [place] [address] Performed By: #### 2 4323-8 ####[facility] LABCLIA [id number] [place] [address] [place] Calcium [Mass/Vol] 9.1 mg/dL Normal 8.5-10.2 [facility] Comment on above: Order Comment: Speci men Type: BLOOD SPECIMENOrdering Facility: [facility] Address: [address] [place] [address] Performed By: #### 2 4323-8 ####[facility] LABCLIA [id number] [place] [address] [place] Chloride [Moles/Vol] 106 mmol/L Normal 98-107 [facility] Comment on above: Order Comment: Speci men Type: BLOOD SPECIMENOrdering Facility: [facility] Address: [address] [place] [address] Performed By: #### 2 4323-8 ####[facility] LABCLIA [id number] [place] [address] [place] CO2 [Moles/Vol] 25 mmol/L Normal 22-30 [facility] Comment on above: Order Comment: Speci men Type: BLOOD SPECIMENOrdering Facility: [facility] Address: [address] [place] [address] Performed By: #### 2 4323-8 ####[facility] LABCLIA [id number] [place] [address] [place] Creatinine [Mass/Vol] 0.67 mg/dL Normal 0.58-0.96 [facility] Comment on above: Order Comment: Speci men Type: BLOOD SPECIMENOrdering Facility: [facility] Address: [address] [place], [place] [address] Performed By: #### 2 4323-8 ####[facility] LABCLIA [id number] [place] [address] [place] Creatinine and Glomerular filtration rate.predicted panel (S/P/Bld) 125 mL/min/1.73m??? Normal >=60 [facility] Comment on above: Order Comment: Ronnie alonzo Type: BLOOD SPECIMENOrdering Facility: [facility] Address: [address] [place] [address] Result Comment: Edwige mated Glomerular Filtration Rate [...] actual GFR. Performed By: #### 2 4323-8 ####[facility] LABIA [id number] [place] [address] [place] Glucose [Mass/Vol] 93 mg/dL Normal 74-99 [facility] Comment on above: Order Comment: Ronnie alonzo Type: BLOOD SPECIMENOrdering Facility: [facility] Address: [address] [place] [address] Result Comment: The [place] [employer] Association (ADA) provides guidance for cutoff [...] Standards of Medical Care in Diabetes 2016, [place] [employer]. Diabetes Care. 2016.39(Suppl 1). Performed By: #### 2 4323-8 ####[facility] [id number] [place] [id number] [place] Potassium [Moles/Vol] 4.1 mmol/L Normal 3.7-5.1 [facility] Comment on above: Order Comment: Ronnie alonzo Type: BLOOD SPECIMENOrdering Facility: [facility] Address: [address] [place] [address] Performed By: #### 2 4323-8 ####[facility] LABCLIA [id number] [place] [address] [place] Protein [Mass/Vol] 7.3 g/dL Normal 6.3-8.0 [facility] Comment on above: Order Comment: Speci men Type: BLOOD SPECIMENOrdering Facility: [facility] Address: [address] [place] [address] Performed By: #### 2 4323-8 ####[facility] LABCLIA [id number] [place] [address] [place] Sodium [Moles/Vol] 143 mmol/L Normal 136-144 [facility] Comment on above: Order Comment: Speci men Type: BLOOD SPECIMENOrdering Facility: [facility] Address: [address] [place] [address] Performed By: #### 2 4323-8 ####[facility] LABCLIA [id number] [place] [address] [place] Urea nitrogen [Mass/Vol] 13 mg/dL Normal 7-21 [facility] Comment on above: Order Comment: Speci men Type: BLOOD SPECIMENOrdering Facility: [facility] Address: [address] [place] [address] Performed By: #### 2 4323-8 ####[facility] LABCLIA [id number] [place] [address] [place] CNPTOUTREACHon 06-30-2024 CNPTOUTREACH Normal [facility] [id number] 06-30-2024 [facility] Misc. COMMENT Normal . [facility] Comment on above: Order Comment: CLEAN CATCH Result Comment: Test Ordered: [id number] Enhanced Liver Fibrosis (ELF) ELF(TM) Score 8.84 BN Reference Range: <9.80 ELF(TM) Score Interpretation: Risk cut-offs to assess the likelihood of progression to cirrhosis and liver-related clinical events within 3.9 years following baseline ELF score (IQR: 14.0-22.4 months)*: Lower risk < 9.80 Mid risk 9.80 - 11.29 Higher risk >11.29 Note: The ELF(TM) Score is a unitless numerical value. *Osorio SA, Juan VW, Shy T, et al. Selonsertib for patients with bridging fibrosis or compensated cirrhosis due to GARCIA: Results from randomized phase III STELLAR trials. J Hepatol. 2020 Nov;73(1):26-39. Performed at: - [facility] [id number] [employer]forming [employer] Technicians: Fara Plaza MD, Phone: [phone] Performed at: [facility] [address] [id number] Performing Arts Technicians: Julian Wang PhD, Phone: [phone] Performed By: #### L 400.0001 #### [facility] [address] [place] [address]. [place], [address] PT D/C Summary (1)on 025 PT D/C Summary (1) [facility] Physical Therapy [facility] [address] [place] [address] [address] [place] [address] / REHABILITATION SERVICES DISCHARGE SUMMARY MR#: [id number] Acct: [id number] Name: MATT CALABRESE Rep #: [id number] : 2000 24 From: Evans Matthews PT, ATC Referring DrSarah: Dr. Aury Tristan DO Status: REG RCR Insurance: [facility] SELF PAY INSURANCE Discharge Summary [...] please feel free to call me at [phone]. Thank you for the referral of this patient. Sincerely, Evans Matthews, PT, ATC Balance/Gait/Functional tests Balance/Special Test Scores Lower Extremity Functional Score: 28 Improvement % Improvement: 44 06/26/24 1126 CC: BUTTER FAT TESTER-C Jack Priest; Dr. Aury Tristan DO [facility] Signed Normal [facility] Ankle min 3 Viewson 06-24-19 Ankle min 3 Views [facility] Imaging Services [address] [place], [place] [address] Ankle min 3 Views MR#: [id number] Acct: [id number] Name: MATT CALABRESE Rep #: [id number] : 2000 F 24 From: Sharan Romero MD PCP: LENA Beatty Status: REG CLI Study: Ankle min 3 Views Date of Exam: 06/24/24 Exam# [id number] Ordering Dr: Andrea Campos PROCEDURE: ANKLE MIN 3 VIEWS REASON FOR EXAM: Fell several days ago. TECHNIQUE: 3 views of the left ankle COMPARISON: 12/01/2022 left ankle. FINDINGS: No visible fracture. No suspicious bone lesion. Normal alignment. Mortise appears intact. No effusion. Soft tissues are unremarkable. 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 [facility] Medical History (Updated 06/25/24 @ 06:08 by Andrea Campos NP-C) Ankle pain, left Right wrist sprain Left [...] M25.562 Chronicit (more content not included)... Normal [facility] INSLABon 06-18-2024 Insulin Abs <5.0 Normal [facility] Comment on above: Result Comment: This test is also known as insulin autoantibody or IAA. This test was developed and its performance characteristics determined by [employer]. It has not been cleared or approved by the Food and Drug Administration. Reference Range: <5.0 Negative > or = 5.0 Positive Performed At: [facility] [address] [place] [id number] See Winkler MD Ph:[phone] Performed By: #### A DIFF, ANEU, CRP, GFR, CMP, AHAVG, CBC, ANAIFS, ESR, 125029 ####[place] [address]#### FOL, 1HAVM, B12 ####[place] [address] ANAIFSon 06-13-2024 Antinuclear Ab Screen Negative Normal Negative [facility] Comment on above: Result Comment: Anti -nuclear antibody test is used as an aid in diagnosis of systemic autoimmune diseases. Where positive and clinically warranted, follow-up using disease-specific testing is recommended. Low positive titers are not uncommon with advanced age, certain chronic infections, and malignancies among others. Test methodology: Indirect fluorescence immunoassay (IFA) using HEp-2 cells. Performed By: [facility] [address] [place] [address] [employer]forming Arts Technicians: John Zuluaga III, M.D. CLIA#: [id number] Performed By: #### G FR, BMP, HFP #### [address] [address] AHAVGon 06-12-2024 Hepatitis A Antibody IgG Positive Normal [facility] Comment on above: Result Comment: Cons istent with serological evidence of immunity to Hepatitis A Virus. Performed By: [facility] [address] [place] [address] Performing Arts Technicians: Jerri Tolentino III#: [id number] Performed By: #### G FR, BMP, HFP #### [address] [address] .Auto Diffon 06-11-2024 Basophil, Absolute 0.0 10 3/mcL Normal 0.0-0.2 [facility] Comment on above: Performed By: #### G FR, BMP, HFP #### [address] [address] Basophils/100 WBC (Bld) 0.4 % Normal 0.0-2.5 [facility] Comment on above: Performed By: #### G FR, BMP, HFP #### [address] [address] Eosinophil, Absolute 0.1 10 3/mcL Normal 0.0-0.7 [facility] Comment on above: Performed By: #### G FR, BMP, HFP #### [address] [address] Eosinophils/100 WBC (Bld) 1.5 % Normal 0.0-7.0 [facility] Comment on above: Performed By: #### G FR, BMP, HFP #### [address] [address] Lymphocyte, Absolute 1.9 10 3/mcL Normal 0.9-4.3 [facility] Comment on above: Performed By: #### G FR, BMP, HFP #### [address] [address] Lymphocytes/100 WBC (Bld) 34.1 % Normal 20.0-40.0 [facility] Comment on above: Performed By: #### G FR, BMP, HFP #### [address] [address] Monocyte, Absolute 0.4 10 3/mcL Normal 0.1-1.4 [facility] Comment on above: Performed By: #### G FR, BMP, HFP #### [address] [address] Monocytes/100 WBC (Bld) 7.3 % Normal 2.0-13.0 [facility] Comment on above: Performed By: #### G FR, BMP, HFP #### [address] [address] Neutrophils/100 WBC (Bld) 56.7 % Normal 50.0-75.0 [facility] Comment on above: Performed By: #### G FR, BMP, HFP #### [address] [address] .GFRon 06-11-2024 GFR 102 ml/min/1.73sqm Normal [facility] Comment on above: Result Comment: GFR Population [...] square meters Performed By: #### G FR, BMP, HFP #### [address] [address] GFR Non- 84 ml/min/1.73sqm Normal [facility] Comment on above: Result Comment: GFR Population [...] mL/min/1.73 square meters Performed By: #### G PATRICIA BILLINGSLEY, HFP #### [place] [address] .NEUABSon 06-11-2024 Neutrophil, Absolute 3.2 10 3/mcL Normal 2.3-8.1 [facility] Comment on above: Performed By: #### PATRICIA STOCKTON, HFP #### [place] [address] B12on 06-11-2024 Cobalamin (Vitamin B12) [Mass/Vol] 515 pg/mL Normal 211-911 [facility] Comment on above: Performed By: #### PATRICIA STOCKTON, HFP #### [place] [address] CBCon 06-11-2024 Erythrocyte distribution width (RBC) [Ratio] 13.7 % Normal 11.5-15.5 [facility] Comment on above: Performed By: #### PATRICIA TSOCKTON, HFP #### [place] [address] Hematocrit (Bld) [Volume fraction] 37.2 % Normal 34.0-46.0 [facility] Comment on above: Performed By: #### Puneet BILLINGSLEY BMP, HFP #### [place] [address] Hgb 12.5 G/dL Normal 12.0-16.0 [facility] Comment on above: Performed By: #### Puneet BILLINGSLEY BMP, HFP #### [place] [address] MCH (RBC) [Entitic mass] 28.8 pg Normal 27.0-33.0 [facility] Comment on above: Performed By: #### Puneet BILLINGSLEY BMP, HFP #### [place] [address] [place], [place] [address] MCHC 33.5 G/dL Normal 32.0-36.0 [facility] Comment on above: Performed By: #### PATRICIA STOCKTON, HFP #### [place] [address] [place], [place] [address] MCV (RBC) [Entitic vol] 85.8 fL Normal 80.0-99.0 [facility] Comment on above: Performed By: #### PATRICIA STOCKTON, HFP #### [address] [address] Platelet 268 10 3/mcL Normal 150-450 [facility] Comment on above: Performed By: #### PATRICIA STOCKTON, HFP #### [address] [address] Platelet mean volume (Bld) [Entitic vol] 8.7 fL Normal 6.6-10.5 [facility] Comment on above: Performed By: #### PATRICIA STOCKTON, HFP #### [address] [address] RBC 4.33 10 6/mcL Normal 4.10-5.30 [facility] Comment on above: Performed By: #### PATRICIA STOCKTON, HFP #### [address] [address] WBC 5.7 10 3/mcL Normal 4.5-10.8 [facility] Comment on above: Performed By: #### PATRICIA STOCKTON, HFP #### [address] [address] CMPon 06-11-2024 Albumin Level 3.6 G/dL Normal 3.5-5.0 [facility] Comment on above: Performed By: #### PATRICIA STOCKTON, HFP #### [address] [address] Albumin/Globulin [Mass ratio] 0.9 {ratio} Low 1.1-2.5 [facility] Comment on above: Performed By: #### PATRICIA STOCKTON, HFP #### [address] [address] ALP [Catalytic activity/Vol] 81 U/L Normal 40-135 [facility] Comment on above: Performed By: #### G FR, BMP, HFP #### [address] [address] ALT [Catalytic activity/Vol] 19 U/L Normal 14-59 [facility] Comment on above: Performed By: #### G FR, BMP, HFP #### [address] [address] AST [Catalytic activity/Vol] 12 U/L Normal 10-40 [facility] Comment on above: Performed By: #### G FR, BMP, HFP #### [address] [address] Bili Total 0.2 mg/dL Normal 0.2-1.0 [facility] Comment on above: Result Comment: Use of this assay is not recommended for patients undergoing treatment with eltrombopag due to the potential for falsely elevated results. Performed By: #### G FR, BMP, HFP #### [address] [address] BUN/Creatinine Ratio 14 ratio Normal 7-27 [facility] Comment on above: Performed By: #### G FR, BMP, HFP #### [address] [address] Calcium [Mass/Vol] 9.2 mg/dL Normal 8.4-10.2 [facility] Comment on above: Performed By: #### G FR, BMP, HFP #### [address] [address] Chloride [Moles/Vol] 104 mmol/L Normal 98-107 [facility] Comment on above: Performed By: #### G FR, BMP, HFP #### [address] [address] CO2 [Moles/Vol] 30 mmol/L High 22-29 [facility] Comment on above: Performed By: #### G FR, BMP, HFP #### [address] [address] Creatinine [Mass/Vol] 0.83 mg/dL Normal 0.55-1.02 [facility] Comment on above: Result Comment: Test ing performed on Siemens Dimension EXL analyzer using a modified kinetic Stephanie technique. Performed By: #### G FR, BMP, HFP #### [address] [address] Electrolyte Balance 7.0 mEq/L Normal 4.0-15.0 [facility] Comment on above: Performed By: #### G FR, BMP, HFP #### [place] [address] Globulin 4.0 G/dL Normal [facility] Comment on above: Performed By: #### G FR, BMP, HFP #### [place] [address] Glucose [Mass/Vol] 104 mg/dL Normal 70-105 [facility] Comment on above: Performed By: #### G FR, BMP, HFP #### [address] [address] Potassium [Moles/Vol] 3.7 mmol/L Normal 3.5-5.1 [facility] Comment on above: Performed By: #### G FR, BMP, HFP #### [place] [address] Sodium [Moles/Vol] 141 mmol/L Normal 136-145 [facility] Comment on above: Performed By: #### G FR, BMP, HFP #### [address] [address] Total Protein 7.6 G/dL Normal 6.4-8.2 [facility] Comment on above: Performed By: #### G FR, BMP, HFP #### [address] [address] Urea nitrogen [Mass/Vol] 12 mg/dL Normal 7-18 [facility] Comment on above: Performed By: #### G FR, BMP, HFP #### [place] [address] [place], [place] [address] CRPon 06-11-2024 C-Reactive Protein 0.6 mg/dL High 0.0-0.3 [facility] Comment on above: Performed By: #### G FR, BMP, HFP #### [place] [address] [place], [place] [address] ESRon 06-11-2024 Erythrocyte Sed Rate 17 mm/hr Normal 0-20 [facility] Comment on above: Performed By: #### G FR, BMP, HFP #### [place] [address] FOLon 06-11-2024 Folate 16.60 ng/mL Normal 5.38-24.00 [facility] Comment on above: Performed By: #### G FR, BMP, HFP #### [place] [address] HAVMon 06-11-2024 Hep A IgM Ab Non-Reactive Normal Non-Reactive [facility] Comment on above: Performed By: #### G FR, BMP, HFP #### [place] [address] Hep A IgM Ab Int Normal [facility] Comment on above: Result Comment: No s erological evidence of a current Hepatitis A infection. See Interp Performed By: #### G FR, BMP, HFP #### [place] [address] LABORATORYOrdered By: SYSTEM SYSTEM on 06-11-2024 Albumin [...] Totalon 05-22 HEPATITIS A,TOT Positive Abnormal Negative [facility] Comment on above: Result Comment: Comm ent: The HAV total antibody assay detects both IgG and IgM but does not differentiate between them. A negative result suggests susceptibility to infection. A positive result could be due to vaccination, previously resolved infection or active infection. Testing for HAV IgM should be performed if active HAV infection is suspected. [employer] offers profiles that will automatically reflex positive HAV total antibody results to IgM (e.g., panel #[id number] HAV Antibody w/ Rfx). Performed at: [address] [id number] [employer]: Julian Wang PhD, Phone: [phone] Performed By: #### L 300.3900, L300.4310, L100.0100 #### [facility] [address] [facility] [place], [address] Hepatitis B Core Ab Totalon 06-10-2024 HEP B CORE,TOT Negative Normal Negative [facility] Comment on above: Performed By: #### L 300.3900, L300.4310, L100.0100 #### [facility] [address] [place], [address] CBC W/Diff, Automatedon 05-22 0-2024 Absolute Lymph 2.03 X10 3/uL Normal 0.83-4.51 [facility] Comment on above: Performed By: #### L 300.3900, L300.4310, L100.0100 #### [facility] [address] [place], [address] Absolute Neut 3.9 X10 3/uL Normal 2.0-7.7 [facility] Comment on above: Performed By: #### L 300.3900, L300.4310, L100.0100 #### [facility] [address] [place], [address] Basophils/100 WBC (Bld) 0.5 % Normal 0-1 [facility] Comment on above: Performed By: #### L 300.3900, L300.4310, L100.0100 #### [facility] [address] [place], [address] Eosinophils/100 WBC (Bld) 1.1 % Normal 0-5 [facility] Comment on above: Performed By: #### L 300.3900, L300.4310, L100.0100 #### [facility] [address] [place], [address] Erythrocyte distribution width (RBC) [Ratio] 12.8 % Normal 11.6-14.6 [facility] Comment on above: Performed By: #### L 300.3900, L300.4310, L100.0100 #### [facility] [address] [place], [address] Hematocrit (Bld) [Volume fraction] 38.1 % Normal 37-47 [facility] Comment on above: Performed By: #### L 300.3900, L300.4310, L100.0100 #### [facility] [address] [place], [address] Hemoglobin (Bld) [Mass/Vol] 12.2 g/dL Normal 12.0-15.0 [facility] Comment on above: Performed By: #### L 300.3900, L300.4310, L100.0100 #### [facility] [address] [place], [address] IG% 0.300 Normal 0.0-0.9 [facility] Comment on above: Result Comment: IG% - Immature Granulocytes (promyelocytes, myelocytes and metamyelocytes) > 1% indicates that a LEFT SHIFT is Present. Performed By: #### L 300.3900, L300.4310, L100.0100 #### [facility] [address] [place], [address] Lymphocytes/100 WBC (Bld) 31.4 % Normal 19-41 [facility] Comment on above: Performed By: #### L 300.3900, L300.4310, L100.0100 #### [facility] [address] [place], [address] MCH (RBC) [Entitic mass] 28.0 pg Normal 27.0-32.0 [facility] Comment on above: Performed By: #### L 300.3900, L300.4310, L100.0100 #### [facility] [address] [place], [address] MCHC (RBC) [Mass/Vol] 32.0 g/dL Normal 32-36 [facility] Comment on above: Performed By: #### L 300.3900, L300.4310, L100.0100 #### [facility] [address] [place], [address] MCV (RBC) [Entitic vol] 87.4 fL Normal 81-99 [facility] Comment on above: Performed By: #### L 300.3900, L300.4310, L100.0100 #### [facility] [address] [place], [address] Monocytes/100 WBC (Bld) 6.2 % Normal 0-10 [facility] Comment on above: Performed By: #### L 300.3900, L300.4310, L100.0100 #### [facility] [address] [place], [address] Neutrophils/100 WBC (Bld) 60.5 % Normal 47-70 [facility] Comment on above: Performed By: #### L 300.3900, L300.4310, L100.0100 #### [facility] [address] [place], [address] Nucleated RBC (Bld) [#/Vol] 0 10*3/uL Normal 0-5 [facility] Comment on above: Performed By: #### L 300.3900, L300.4310, L100.0100 #### [facility] [address] [place], [address] Platelet mean volume (Bld) [Entitic vol] 9.5 fL Normal 6.2-12.0 [facility] Comment on above: Performed By: #### L 300.3900, L300.4310, L100.0100 #### [facility] [address] [place], [address] Platelets (Bld) [#/Vol] 289 10*3/uL Normal 150-450 [facility] Comment on above: Performed By: #### L 300.3900, L300.4310, L100.0100 #### [facility] [address] [place], [address] RBC (Bld) [#/Vol] 4.36 10*6/uL Normal 4.2-5.4 [facility] Comment on above: Performed By: #### L 300.3900, L300.4310, L100.0100 #### [facility] [address] [place], [address] RDW SD 40.8 fl Normal 35.1-43.9 [facility] Comment on above: Performed By: #### L 300.3900, L300.4310, L100.0100 #### [facility] [address] [place], [address] WBC (Bld) [#/Vol] 6.5 10*3/uL Normal 4.4-11.0 [facility] Comment on above: Performed By: #### L 300.3900, L300.4310, L100.0100 #### [facility] [address] [place], [address] Comprehensive Metabolic Prof ilon 06-09-2024 Albumin [Mass/Vol] 3.8 g/dL Normal 3.2-5.0 [facility] Comment on above: Performed By: #### L 300.3900, L300.4310, L100.0100 #### [facility] [address] [place], [address] Albumin/Globulin [Mass ratio] 1.0 {ratio} Normal 0.9-2.4 [facility] Comment on above: Performed By: #### L 300.3900, L300.4310, L100.0100 #### [facility] [address] [place], [address] ALK P 79 U/L Normal 45-117 [facility] Comment on above: Performed By: #### L 300.3900, L300.4310, L100.0100 #### [facility] [address] [place], [address] ALT [Catalytic activity/Vol] 23 U/L Normal 13-56 [facility] Comment on above: Performed By: #### L 300.3900, L300.4310, L100.0100 #### [facility] [address] [place], [address] AST [Catalytic activity/Vol] 12 U/L Low 15-37 [facility] Comment on above: Performed By: #### L 300.3900, L300.4310, L100.0100 #### [facility] [address] [place], [address] Bilirubin [Mass/Vol] 0.20 mg/dL Normal 0.20-1.00 [facility] Comment on above: Result Comment: For patients on eltrombopag therapy, use of Dimension [place] TBIL is not recommended. Performed By: #### L 300.3900, L300.4310, L100.0100 #### [facility] [address] [place], [address] BUN/CRE 20.6 RATIO High 10-20 [facility] Comment on above: Performed By: #### L 300.3900, L300.4310, L100.0100 #### [facility] [address] [place], [address] CA,Total 9.2 mg/dL Normal 8.5-10.1 [facility] Comment on above: Performed By: #### L 300.3900, L300.4310, L100.0100 #### [facility] [address] [place], [address] Chloride [Moles/Vol] 106 mmol/L Normal 98-107 [facility] Comment on above: Performed By: #### L 300.3900, L300.4310, L100.0100 #### [facility] [address] [place], [address] CO2 [Moles/Vol] 26.0 mmol/L Normal 21.0-32.0 [facility] Comment on above: Performed By: #### L 300.3900, L300.4310, L100.0100 #### [facility] [address] [place], [address] Creatinine [Mass/Vol] 0.73 mg/dL Normal 0.55-1.02 [facility] Comment on above: Result Comment: The validity of the calculated GFR GFRAA in patients over 70 years has not been determined. Clinical correlation is essential. Performed By: #### L 300.3900, L300.4310, L100.0100 #### [facility] [address] [place], [address] EST GFR - AA 125 mL/min Normal >60 [facility] Comment on above: Result Comment: Afri can [place] GFR Calc Performed By: #### L 300.3900, L300.4310, L100.0100 #### [facility] [address] [place], [address] GAP 4 Low 5-15 [facility] Comment on above: Performed By: #### L 300.3900, L300.4310, L100.0100 #### [facility] [address] [place], [address] GFR/1.73 sq M.predicted among non-blacks MDRD (S/P/Bld) [Vol rate/Area] 103 mL/min/{1.73_m2} Normal >60 [facility] Comment on above: Result Comment: Non- GFR Calc Performed By: #### L 300.3900, L300.4310, L100.0100 #### [facility] [address] [place], [address] Globulin (S) [Mass/Vol] 4.0 g/dL Normal 2.2-4.2 [facility] Comment on above: Performed By: #### L 300.3900, L300.4310, L100.0100 #### [facility] [address] [place], [address] Glucose [Mass/Vol] 109 mg/dL High 74-106 [facility] Comment on above: Result Comment: Fast ing Glucose result from 100 to 125 mg/dL suggests IMPAIRED HOMEOSTASIS per A.D.A. criteria. Performed By: #### L 300.3900, L300.4310, L100.0100 #### [facility] [address] [place], [address] Potassium [Moles/Vol] 3.8 mmol/L Normal 3.5-5.1 [facility] Comment on above: Performed By: #### L 300.3900, L300.4310, L100.0100 #### [facility] [address] [place], [address] Sodium [Moles/Vol] 136 mmol/L Normal 136-145 [facility] Comment on above: Performed By: #### L 300.3900, L300.4310, L100.0100 #### [facility] [address] [place], [address] T PROT 7.8 g/dL Normal 6.4-8.2 [facility] Comment on above: Performed By: #### L 300.3900, L300.4310, L100.0100 #### [facility] [address] [place], [address] Urea nitrogen [Mass/Vol] 15 mg/dL Normal 7-18 [facility] Comment on above: Performed By: #### L 300.3900, L300.4310, L100.0100 #### [facility] [address] [place], [address] Gastroenterology Visit Repor ton 06-09-2024 Gastroenterology Visit Report [facility] Gastroenterology [address] 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 [facility] Medical History (Updated 06/09/24 @ 10:08 by Marquita Chavez NP-C) Right wrist sprain Left knee pain Strain [...] x6 weeks (more content not included)... Normal [facility] Hepatitis B Surface Antibody on 06-09-2024 HEP B Surf Ab Reactive Normal [facility] Comment on above: Order Comment: Reaso n for Exam: fatty liver Result Comment: Non Reactive: Inconsistent with immunity less than <10 mIU/mL Reactive: Consistent with immunity greater than or equal to 10 mIU/mL Performed By: #### L 300.3900, L300.4310, L100.0100 #### [facility] [address] [place], [address] Hepatitis B Surface Antigeno n 06-09-2024 HEP B Surf Ag Non-Reactive Normal Nonreactive [facility] Comment on above: Order Comment: Reaso n for Exam: fatty liver Performed By: #### L 300.3900, L300.4310, L100.0100 #### [facility] [address] [place], [address] Hepatitis C Antibodyon 06-09 Hepatitis C AB Non-Reactive Normal Nonreactive [facility] Comment on above: Order Comment: Reaso n for Exam: fatty liver Result Comment: Non Reactive: < 0.8 Equivocal: >/= 0.8 to < 1.0 Reactive: >/= 1.0 The CDC requires that a reactive/equivocal HCV antibody result be sent out for confirmation. HCV Quant by PCR testing. Performed By: #### L 300.3900, L300.4310, L100.0100 #### [facility] [address] [place], [address] Re-Evaluation - PT (1)on Re-Evaluation - PT (1) [facility] Physical Therapy [address] [place] [address] / REEVALUATION / MEDICARE RECERTIFICATION PHYSICAL THERAPY MR#: [id number] Acct: [id number] Name: MATT CALABRESE Rep #: [id number] : 2000 23 From: Evans Matthews PT, ATC Referring Dr.: Dr. Aury Tristan, DO Status:REG RCR Insurance: [facility] PL[employer] SELF PAY INSURANCE Re-Evaluation Intro: Dr. [...] do not hesitate to contact me at [phone] by phone or if you have questions or concerns regarding this new plan of care! 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 Aury Tristan DO [facility] Signed For Medicare only, by signing this I certify the plan of care. ___ Physicians Signature Date Normal [facility] No Panel Informationon 05-19 Culture Urine 10,000 - 50,000 cfu/ ml Mixed growth consistent with normal urogenital sandra. [facility] Work Phone: Emergency Department Summary on 05-08-2024 Emergency Department Summary [facility] Medical Records Department [address] [place] [address] Emergency Department Summary 05/08/24 MR#: [id number] Acct: [id number] Name: MATT CALABRESE Rep #: [id number] : 2000 23 From: Eugenio Muniz MD PCP: LENA Beatty Status:DEP ER Location: ED HPI History [...] any fever chills, chest pain, nausea PFSH PFSH Medical History (Updated 05/08/24 @ 20:49 by LENA Cross) Right wrist sprain Left knee pain [...] have lo (more content not included)... Normal [facility] .Auto Diffon 05-04-2024 Basophil, Absolute 0.1 10 3/mcL Normal 0.0-0.2 [facility] Comment on above: Performed By: #### M DW, CMP, CBC, ADIFF, GFR, ANEU, LIP ####[place] [address] [place], [place] [address] Basophils/100 WBC (Bld) 0.5 % Normal 0.0-2.5 [facility] Comment on above: Performed By: #### M DW, CMP, CBC, ADIFF, GFR, ANEU, LIP ####[place] [address] [place], [place] [address] Eosinophil, Absolute 0.1 10 3/mcL Normal 0.0-0.7 [facility] Comment on above: Performed By: #### M DW, CMP, CBC, ADIFF, GFR, ANEU, LIP ####[facility] [place], [place] [address] Eosinophils/100 WBC (Bld) 0.6 % Normal 0.0-7.0 [facility] Comment on above: Performed By: #### M DW, CMP, CBC, ADIFF, GFR, ANEU, LIP ####[facility] [place], [place] [address] Lymphocyte, Absolute 1.3 10 3/mcL Normal 0.9-4.3 [facility] Comment on above: Performed By: #### M DW, CMP, CBC, ADIFF, GFR, ANEU, LIP ####[facility] [place], [place] [address] Lymphocytes/100 WBC (Bld) 9.7 % Low 20.0-40.0 [facility] Comment on above: Performed By: #### M DW, CMP, CBC, ADIFF, GFR, ANEU, LIP ####[facility] [place], [place] [address] Monocyte, Absolute 0.8 10 3/mcL Normal 0.1-1.4 [facility] Comment on above: Performed By: #### M DW, CMP, CBC, ADIFF, GFR, ANEU, LIP ####[place] [address] [place], [place] [address] Monocytes/100 WBC (Bld) 5.7 % Normal 2.0-13.0 [facility] Comment on above: Performed By: #### M DW, CMP, CBC, ADIFF, GFR, ANEU, LIP ####[place] [address] [place], [place] [address] Neutrophils/100 WBC (Bld) 83.5 % High 50.0-75.0 [facility] Comment on above: Performed By: #### M DW, CMP, CBC, ADIFF, GFR, ANEU, LIP ####[place] [address] [place], [place] [address] .GFRon 05-04-2024 GFR 110 ml/min/1.73sqm Normal [facility] Comment on above: Result Comment: GFR Population [...] 15 mL/min/1.73 square meters Performed By: #### M DW, CMP, CBC, ADIFF, GFR, ANEU, LIP ####[facility] [place], [place] [address] GFR Non- 91 ml/min/1.73sqm Normal [facility] Comment on above: Result Comment: GFR Population [...] 15 mL/min/1.73 square meters Performed By: #### M DW, CMP, CBC, ADIFF, GFR, ANEU, LIP ####[place] [place] [id number] .MDWon 05-04-2024 Monocyte Distribution Width 16.15 Normal 0.00-20.00 [facility] Comment on above: Result Comment: For ED adult patients suspected of sepsis, MDW<=20.0 does not rule out sepsis or risk of sepsis Performed By: #### M DW, CMP, CBC, ADIFF, GFR, ANEU, LIP ####[place] [address] [place] [address] .NEUABSon 05-04-2024 Neutrophil, Absolute 11.4 10 3/mcL High 2.3-8.1 [facility] Comment on above: Performed By: #### M DW, CMP, CBC, ADIFF, GFR, ANEU, LIP ####[place] [place] [id number] CBCon 05-04-2024 Erythrocyte distribution width (RBC) [Ratio] 13.4 % Normal 11.5-15.5 [facility] Comment on above: Performed By: #### M DW, CMP, CBC, ADIFF, GFR, ANEU, LIP ####[place] [place], [place] [address] Hematocrit (Bld) [Volume fraction] 37.2 % Normal 34.0-46.0 [facility] Comment on above: Performed By: #### M DW, CMP, CBC, ADIFF, GFR, ANEU, LIP ####[place] [address] [place], [place] [address] Hgb 12.4 G/dL Normal 12.0-16.0 [facility] Comment on above: Performed By: #### M DW, CMP, CBC, ADIFF, GFR, ANEU, LIP ####[place] [address] [place], [place] [address] MCH (RBC) [Entitic mass] 28.8 pg Normal 27.0-33.0 [facility] Comment on above: Performed By: #### M DW, CMP, CBC, ADIFF, GFR, ANEU, LIP ####[place] [address] [place], [place] [address] MCHC 33.3 G/dL Normal 32.0-36.0 [facility] Comment on above: Performed By: #### M DW, CMP, CBC, ADIFF, GFR, ANEU, LIP ####[address] [address] MCV (RBC) [Entitic vol] 86.3 fL Normal 80.0-99.0 [facility] Comment on above: Performed By: #### M DW, CMP, CBC, ADIFF, GFR, ANEU, LIP ####[place] [address] [place], [place] [address] Platelet 266 10 3/mcL Normal 150-450 [facility] Comment on above: Performed By: #### M DW, CMP, CBC, ADIFF, GFR, ANEU, LIP ####[place] [address] [place], [place] [address] Platelet mean volume (Bld) [Entitic vol] 8.2 fL Normal 6.6-10.5 [facility] Comment on above: Performed By: #### M DW, CMP, CBC, ADIFF, GFR, ANEU, LIP ####[place] [place], [place] [address] RBC 4.31 10 6/mcL Normal 4.10-5.30 [facility] Comment on above: Performed By: #### M DW, CMP, CBC, ADIFF, GFR, ANEU, LIP ####[place] [address] [place], [place] [address] WBC 13.6 10 3/mcL High 4.5-10.8 [facility] Comment on above: Performed By: #### M DW, CMP, CBC, ADIFF, GFR, ANEU, LIP ####[place] [address] [place], [place] [address] CMPon 05-04-2024 Albumin Level 3.7 G/dL Normal 3.5-5.0 [facility] Comment on above: Performed By: #### M DW, CMP, CBC, ADIFF, GFR, ANEU, LIP ####[place] [address] [place], [place] [address] Albumin/Globulin [Mass ratio] 1.1 {ratio} Normal 1.1-2.5 [facility] Comment on above: Performed By: #### M DW, CMP, CBC, ADIFF, GFR, ANEU, LIP ####[address] [address] ALP [Catalytic activity/Vol] 81 U/L Normal 40-135 [facility] Comment on above: Performed By: #### M DW, CMP, CBC, ADIFF, GFR, ANEU, LIP ####[place] [address] [place], [place] [address] ALT [Catalytic activity/Vol] 33 U/L Normal 14-59 [facility] Comment on above: Performed By: #### M DW, CMP, CBC, ADIFF, GFR, ANEU, LIP ####[place] [address] [place], [place] [address] AST [Catalytic activity/Vol] 16 U/L Normal 10-40 [facility] Comment on above: Performed By: #### M DW, CMP, CBC, ADIFF, GFR, ANEU, LIP ####[facility] [place], [place] [address] Bili Total 0.2 mg/dL Normal 0.2-1.0 [facility] Comment on above: Result Comment: Use of this assay is not recommended for patients undergoing treatment with eltrombopag due to the potential for falsely elevated results. Performed By: #### M DW, CMP, CBC, ADIFF, GFR, ANEU, LIP ####[address] [address] BUN/Creatinine Ratio 19 ratio Normal 7-27 [facility] Comment on above: Performed By: #### M DW, CMP, CBC, ADIFF, GFR, ANEU, LIP ####[address] [address] Calcium [Mass/Vol] 9.1 mg/dL Normal 8.4-10.2 [facility] Comment on above: Performed By: #### M DW, CMP, CBC, ADIFF, GFR, ANEU, LIP ####[place] [id number] Chloride [Moles/Vol] 105 mmol/L Normal 98-107 [facility] Comment on above: Performed By: #### M DW, CMP, CBC, ADIFF, GFR, ANEU, LIP ####[place] [address] CO2 [Moles/Vol] 27 mmol/L Normal 22-29 [facility] Comment on above: Performed By: #### M DW, CMP, CBC, ADIFF, GFR, ANEU, LIP ####[place] [id number] Creatinine [Mass/Vol] 0.78 mg/dL Normal 0.55-1.02 [facility] Comment on above: Result Comment: Test ing performed on Siemens Dimension EXL analyzer using a modified kinetic Stephanie technique. Performed By: #### M DW, CMP, CBC, ADIFF, GFR, ANEU, LIP ####[place] [address] Electrolyte Balance 11.0 mEq/L Normal 4.0-15.0 [facility] Comment on above: Performed By: #### M DW, CMP, CBC, ADIFF, GFR, ANEU, LIP ####[place] [address] Globulin 3.5 G/dL Normal [facility] Comment on above: Performed By: #### M DW, CMP, CBC, ADIFF, GFR, ANEU, LIP ####[place] [address] [place], [place] [address] Glucose [Mass/Vol] 106 mg/dL High 70-105 [facility] Comment on above: Performed By: #### M DW, CMP, CBC, ADIFF, GFR, ANEU, LIP ####[place] [address] [place], [place] [address] Potassium [Moles/Vol] 4.0 mmol/L Normal 3.5-5.1 [facility] Comment on above: Performed By: #### M DW, CMP, CBC, ADIFF, GFR, ANEU, LIP ####[place] [address] [place], [place] [address] Sodium [Moles/Vol] 143 mmol/L Normal 136-145 [facility] Comment on above: Performed By: #### M DW, CMP, CBC, ADIFF, GFR, ANEU, LIP ####[address] [address] Total Protein 7.2 G/dL Normal 6.4-8.2 [facility] Comment on above: Performed By: #### M DW, CMP, CBC, ADIFF, GFR, ANEU, LIP ####[address] [address] Urea nitrogen [Mass/Vol] 15 mg/dL Normal 7-18 [facility] Comment on above: Performed By: #### M DW, CMP, CBC, ADIFF, GFR, ANEU, LIP ####[place] [address] [place], [place] [address] CT ABD/PELVIS W/ IV CONTRAST ONLYon 05-04-2024 [...] Report By: Abhi Mims Electronically signed By Abhi Mims Dictated Date: 05/04/2024 7:41:39 PM Prelim Date: 05/04/2024 7:47:35 PM Sign Date: 05/04/2024 7:47:35 PM Ordering Provider: GORAN BOWENS Normal [facility] LIPon 05-04-2024 Lipase Level 23 U/L Normal 16-77 [facility] Comment on above: Performed By: #### M DW, CMP, CBC, ADIFF, GFR, ANEU, LIP ####[facility] [place], [place] [address] UAon 05-04-2024 Color (U) Yellow Normal [facility] Comment on above: Performed By: #### U A #### [place] [address] [place], [place] [address] Glucose (U) [Mass/Vol] Negative Normal Negative [facility] Comment on above: Performed By: #### U A #### [place] [address] [place], [place] [address] Ketones Ql (U) Negative Normal Negative [facility] Comment on above: Performed By: #### U A #### [place] [address] UA Appear Clear Normal Clear [facility] Comment on above: Performed By: #### U A #### [place] [address] UA Blood Trace Abnormal Negative [facility] Comment on above: Performed By: #### U A #### [place] [address] UA Leuk Est Negative Normal Negative [facility] Comment on above: Performed By: #### U A #### [place] [address] UA Nitrite Negative Normal Negative [facility] Comment on above: Performed By: #### U A #### [place] [address] UA pH 8.0 Normal 5.0 - 8.0 [facility] Comment on above: Performed By: #### U A #### [place] [address] UA Protein Negative Normal Negative [facility] Comment on above: Performed By: #### U A #### [place] [address] UA Spec Grav 1.020 Normal 1.015-1.025 [facility] Comment on above: Performed By: #### U A #### [address] [address] UA Specimen Type Clean Catch Normal [facility] Comment on above: Performed By: #### U A #### [place] [address] UA Urobilinogen 0.2 E.U./dL Normal 0.2-1.0 [facility] Comment on above: Performed By: #### U A #### [place] [address] Urobilinogen (U) [Mass/Vol] Negative Normal Negative [facility] Comment on above: Performed By: #### U A #### [place] [address] [place] [address] No Panel Informationon 05-03 Culture Urine <10,000 cfu/ml. No Significant growth. Sensitivity not indicated. [facility] Work Phone: .Auto Diffon 05-02-2024 Basophil, Absolute 0.1 10 3/mcL Normal 0.0-0.2 [facility] Comment on above: Performed By: #### G FR, BMP, ANEU, ADIFF, CBC, A1C ####[place] [address]#### INSLN ####[address] [address] Basophils/100 WBC (Bld) 0.7 % Normal 0.0-2.5 [facility] Comment on above: Performed By: #### G FR, BMP, ANEU, ADIFF, CBC, A1C ####[place] [address]#### INSLN ####[address] [address] Eosinophil, Absolute 0.1 10 3/mcL Normal 0.0-0.7 [facility] Comment on above: Performed By: #### G FR, BMP, ANEU, ADIFF, CBC, A1C ####[place] [address]#### INSLN ####[address] [address] Eosinophils/100 WBC (Bld) 1.3 % Normal 0.0-7.0 [facility] Comment on above: Performed By: #### G FR, BMP, ANEU, ADIFF, CBC, A1C ####[place] [address]#### INSLN ####[address] [address] Lymphocyte, Absolute 2.1 10 3/mcL Normal 0.9-4.3 [facility] Comment on above: Performed By: #### G FR, BMP, ANEU, ADIFF, CBC, A1C ####[place] [address]#### INSLN ####[address] [address] Lymphocytes/100 WBC (Bld) 22.4 % Normal 20.0-40.0 [facility] Comment on above: Performed By: #### G FR, BMP, ANEU, ADIFF, CBC, A1C ####[place] [address]#### INSLN ####[address] [address] Monocyte, Absolute 0.5 10 3/mcL Normal 0.1-1.4 [facility] Comment on above: Performed By: #### G FR, BMP, ANEU, ADIFF, CBC, A1C ####[place] [address]#### INSLN ####[address] [address] Monocytes/100 WBC (Bld) 5.5 % Normal 2.0-13.0 [facility] Comment on above: Performed By: #### G FR, BMP, ANEU, ADIFF, CBC, A1C ####[place] [address]#### INSLN ####[address] [address] Neutrophils/100 WBC (Bld) 70.1 % Normal 50.0-75.0 [facility] Comment on above: Performed By: #### G FR, BMP, ANEU, ADIFF, CBC, A1C ####[place] [address]#### INSLN ####[address] [address] .GFRon 05-02-2024 GFR Non- 103 ml/min/1.73sqm Normal [facility] Comment on above: Result Comment: GFR Population [...] square meters Performed By: #### G FR, BMP, ANEU, ADIFF, CBC, A1C ####[place] [address] [place] [address]#### INSLN ####[place] [address] GFR 125 ml/min/1.73sqm Normal [facility] Comment on above: Result Comment: GFR Population [...] square meters Performed By: #### G FR, BMP, ANEU, ADIFF, CBC, A1C ####[place] [address] [place] [address]#### INSLN ####[place] [address] .NEUABSon 05-02-2024 Neutrophil, Absolute 6.7 10 3/mcL Normal 2.3-8.1 [facility] Comment on above: Performed By: #### G FR, BMP, ANEU, ADIFF, CBC, A1C ####[place] [address]#### INSLN ####[place] [address] A1Con 05-02-2024 Glucose [Mass/Vol] 126 mg/dL Normal [facility] Comment on above: Result Comment: Edwige mated Average Glucose calculated by equation ((28.7xA1C)-46.7) Estimated average glucose (eAG) is a calculated value from Hemoglobin A1C and is outside dealer sales representative of the average blood glucose level in the last 2-3 month period. Normal range: less than 114 mg/dL Performed By: #### G FR, BMP, ANEU, ADIFF, CBC, A1C ####[place] [address]#### INSLN ####[place] [address] HbA1c (Bld) [Mass fraction] 6.0 % Normal 4.3-6.4 [facility] Comment on above: Performed By: #### G FR, BMP, ANEU, ADIFF, CBC, A1C ####[place] [address]#### INSLN ####[place] [address] BMPon 05-02-2024 BUN/Creatinine Ratio 19 ratio Normal 7-27 [facility] Comment on above: Performed By: #### G FR, BMP, ANEU, ADIFF, CBC, A1C ####[place] [address]#### INSLN ####[place] [address] Calcium [Mass/Vol] 9.4 mg/dL Normal 8.4-10.2 [facility] Comment on above: Performed By: #### G FR, BMP, ANEU, ADIFF, CBC, A1C ####[place] [address]#### INSLN ####[address] [place], [place] [address] Chloride [Moles/Vol] 103 mmol/L Normal 98-107 [facility] Comment on above: Performed By: #### G FR, BMP, ANEU, ADIFF, CBC, A1C ####[place] [address]#### INSLN ####[address] [address] CO2 [Moles/Vol] 28 mmol/L Normal 22-29 [facility] Comment on above: Performed By: #### G FR, BMP, ANEU, ADIFF, CBC, A1C ####[place] [address]#### INSLN ####[place] [address] Creatinine [Mass/Vol] 0.70 mg/dL Normal 0.55-1.02 [facility] Comment on above: Result Comment: Test ing performed on Siemens Dimension EXL analyzer using a modified kinetic Stephanie technique. Performed By: #### G FR, BMP, ANEU, ADIFF, CBC, A1C ####[place] [address]#### INSLN ####[place] [address] Electrolyte Balance 10.0 mEq/L Normal 4.0-15.0 [facility] Comment on above: Performed By: #### G FR, BMP, ANEU, ADIFF, CBC, A1C ####[place] [address]#### INSLN ####[place] [address] Glucose [Mass/Vol] 94 mg/dL Normal 70-105 [facility] Comment on above: Performed By: #### G FR, BMP, ANEU, ADIFF, CBC, A1C ####[place] [address]#### INSLN ####[place] [address] Potassium [Moles/Vol] 4.0 mmol/L Normal 3.5-5.1 [facility] Comment on above: Performed By: #### G FR, BMP, ANEU, ADIFF, CBC, A1C ####[place] [address]#### INSLN ####[address] [address] Sodium [Moles/Vol] 141 mmol/L Normal 136-145 [facility] Comment on above: Performed By: #### G FR, BMP, ANEU, ADIFF, CBC, A1C ####[place] [address]#### INSLN ####[place] [address] Urea nitrogen [Mass/Vol] 13 mg/dL Normal 7-18 [facility] Comment on above: Performed By: #### G FR, BMP, ANEU, ADIFF, CBC, A1C ####[place] [address]#### INSLN ####[place] [address] CBCon 05-02-2024 Erythrocyte distribution width (RBC) [Ratio] 13.7 % Normal 11.5-15.5 [facility] Comment on above: Performed By: #### G FR, BMP, ANEU, ADIFF, CBC, A1C ####[place] [address]#### INSLN ####[place] [address] Hematocrit (Bld) [Volume fraction] 37.5 % Normal 34.0-46.0 [facility] Comment on above: Performed By: #### G FR, BMP, ANEU, ADIFF, CBC, A1C ####[place] [address]#### INSLN ####[place] [address] Hgb 12.7 G/dL Normal 12.0-16.0 [facility] Comment on above: Performed By: #### G FR, BMP, ANEU, ADIFF, CBC, A1C ####[place] [address]#### INSLN ####[place] [address] MCH (RBC) [Entitic mass] 29.3 pg Normal 27.0-33.0 [facility] Comment on above: Performed By: #### G FR, BMP, ANEU, ADIFF, CBC, A1C ####[place] [address]#### INSLN ####[place] [address] MCHC 33.9 G/dL Normal 32.0-36.0 [facility] Comment on above: Performed By: #### G FR, BMP, ANEU, ADIFF, CBC, A1C ####[place] [address]#### INSLN ####[place] [address] MCV (RBC) [Entitic vol] 86.5 fL Normal 80.0-99.0 [facility] Comment on above: Performed By: #### G FR, BMP, ANEU, ADIFF, CBC, A1C ####[place] [address]#### INSLN ####[place] [address] Platelet 290 10 3/mcL Normal 150-450 [facility] Comment on above: Performed By: #### G FR, BMP, ANEU, ADIFF, CBC, A1C ####[place] [address]#### INSLN ####[place] [address] Platelet mean volume (Bld) [Entitic vol] 8.3 fL Normal 6.6-10.5 [facility] Comment on above: Performed By: #### G FR, BMP, ANEU, ADIFF, CBC, A1C ####[place] [address]#### INSLN ####[place] [address] RBC 4.33 10 6/mcL Normal 4.10-5.30 [facility] Comment on above: Performed By: #### G FR, BMP, ANEU, ADIFF, CBC, A1C ####[place] [address]#### INSLN ####[place] [address] WBC 9.5 10 3/mcL Normal 4.5-10.8 [facility] Comment on above: Performed By: #### G FR, BMP, ANEU, ADIFF, CBC, A1C ####[place] [address]#### INSLN ####[place] [address] INSLNon 05-02-2024 Insulin 12.11 munit/L Normal 2.60-37.60 [facility] Comment on above: Performed By: #### G FR, BMP, ANEU, ADIFF, CBC, A1C ####[place] [address]#### INSLN ####[place] [address] LABORATORYOrdered By: SYSTEM SYSTEM on 05-02-2024 Basophils [...] calculated value from Hemoglobin A1C and is outside dealer sales representative of the average blood glucose level [...] Reports Accession: Collected Date/Time: Received Date/Time: Pathologist: [id number] 04/25/2024 08:22 EST 04/28/2024 07:25 EST JONELLE RAMIREZ MD Final Surgical Pathology Report DIAGNOSIS: UTERUS, [...] All parts labelled with patient name and [id number] Received in formalin labelled uterus, cervix, bilateral [...] - Left fallopian tube Felton Victoria, Pathologists' Brake Lining Curer (ASCP) Performed by FELTON VICTORIA MICROSCOPIC DESCRIPTION: The microscopic examination is performed, except in the case of Gross Only. Electronically Signed by Pathology Report verified by [facility] JONELLE RAMIREZ Sign out Date: 04/29/2024 12:39 Performing Lab: [facility], [address] [place] [address] Pathology Dept Pathology Reports Accession: Collected Date/Time: Received Date/Time: Pathologist: [id number] 04/25/2024 08:22 EST 04/28/2024 07:25 JONELLE SAMUEL MD Disclaimer If ancillary studies were utilized, the following Laboratory Developed Test (LDT) disclaimer will apply: Under CLIA requirements, [facility] is qualified to perform high complexity testing. For all ancillary stains, positive and negative controls stain appropriately. Performance characteristics of immunohistochemical and chromogenic in-situ hybridization tests have been determined by [facility]. These tests are used for clinical purposes, They should not be regarded as investigational or for research. Normal [facility] No Panel Informationon 04-29 Culture Urine 10,000 - 50,000 cfu/ ml Multiple bacterial morphotypes present. Probable Contamination. Suggest recollection if clinically indicated. [facility] Work Phone: ABO/Rh (Gel)on 04-25-2024 ABO/Rh Interp Positive Invalid Interpretation Code [facility] Comment on above: Performed By: #### G FR, BMP #### [address] [address] ABS (Gel)on 04-25-2024 ABSC Interp (Gel) Negative Normal [facility] Comment on above: Performed By: #### U A #### [facility] [address] [place], [place] [address] LABORATORYOrdered By: Su Summers on 04-25-2024 ABO [...] HCG ( test) Ql (U) Negative Normal [facility] Comment on above: Performed By: #### G , BMP #### [place] [address] test (u) int Not detected Invalid Interpretation Code [facility] Comment on above: Performed By: #### G , BMP #### [place] [address] LABORATORYOrdered By: Su Summers on 04-16-2024 Cholesterol [...] 04-16-2024 Cholesterol [Mass/Vol] 189 mg/dL Normal 0-200 [facility] Comment on above: Result Comment: Chol esterol Reference Interval: Less than 200 Desirable 200-239 Borderline high risk 240 and above High risk Performed By: #### L IPID ####[place] [id number] Cholesterol in HDL [Mass/Vol] 50 mg/dL Normal 40-60 [facility] Comment on above: Performed By: #### L IPID ####Linda [address] [place], [place] [address] Cholesterol in LDL [Mass/Vol] 108 mg/dL Normal 0-130 [facility] Comment on above: Performed By: #### L IPID ####Linda [address] [place], [place] [address] Triglyceride [Mass/Vol] 153 mg/dL High 0-150 [facility] Comment on above: Result Comment: Trig lyceride Reference Interval: Less than 150 Normal 150-199 Borderline high risk 200-499 High risk 500 or higher Very high risk Performed By: #### L IPID ####Linda [address] [place], [place] [address] CNPNon 04-15-2024 CNPN Normal [facility] CNPTOUTREACHon 04-15-2024 CNPTOUTREACH Normal [facility] CBC W Auto Differential pane l (Bld)on 04-14-2024 Basophils (Bld) [#/Vol] [facility] Basophils/100 WBC (Bld) 0.3 % [facility] Differential cell count method Nom (Bld) Auto [facility] Eosinophils (Bld) [#/Vol] 0.09 10*3/uL [facility] Eosinophils/100 WBC (Bld) 1.4 % [facility] Erythrocyte distribution width (RBC) [Ratio] 12.5 % 11.5 - 15.0 % [facility] Hematocrit (Bld) [Volume fraction] 37.1 % 36.0 - 46.0 % [facility] Hemoglobin (Bld) [Mass/Vol] 11.8 g/dL 11.5 - 15.5 g/dL [facility] Immature granulocytes (Bld) [#/Vol] BANNERF [facility] Immature granulocytes/100 WBC (Bld) 0.3 % [facility] Lymphocytes (Bld) [#/Vol] 2.03 10*3/uL [facility] Lymphocytes/100 WBC (Bld) 32.6 % [facility] MCH (RBC) [Entitic mass] 28.9 pg 26.0 - 34.0 pg [facility] MCHC (RBC) [Mass/Vol] 31.8 g/dL 30.5 - 36.0 g/dL [facility] MCV (RBC) [Entitic vol] 90.7 fL 80.0 - 100.0 fL [facility] Monocytes (Bld) [#/Vol] 0.43 10*3/uL BANNERF [facility] Monocytes/100 WBC (Bld) 6.9 % [facility] Neutrophils (Bld) [#/Vol] 3.63 10*3/uL [facility] Neutrophils/100 WBC (Bld) 58.5 % [facility] Nucleated RBC (Bld) [#/Vol] NINF [facility] Nucleated RBC/100 WBC (Bld) [Ratio] 0.0 % /100 WBC [facility] Platelet mean volume (Bld) [Entitic vol] 10.6 fL 9.0 - 12.7 fL [facility] Platelets (Bld) [#/Vol] 269 10*3/uL [facility] RBC (Bld) [#/Vol] 4.09 10*6/uL 3.90 - 5.2 0 m/uL [facility] WBC (Bld) [#/Vol] 6.22 10*3/uL [facility] Basophils (Bld) [#/Vol] 10*3/uL Normal <0.11 [facility] Comment on above: Order Comment: Speci men Type: BLOOD SPECIMENOrdering Facility: [facility] Address: [address] [place] [address] Performed By: #### 5 7021-8 ####[facility] LABIA [id number] [place] [address] [place] Basophils/100 WBC (Bld) 0.3 % Normal [facility] Comment on above: Order Comment: Speci men Type: BLOOD SPECIMENOrdering Facility: [facility] Address: [address] [place] [address] Performed By: #### 5 7021-8 ####[facility] LABIA [id number] [place] [address] [place] Differential cell count method Nom (Bld) Auto Normal [facility] Comment on above: Order Comment: Speci men Type: BLOOD SPECIMENOrdering Facility: [facility] Address: [address] [place] [address] Performed By: #### 5 7021-8 ####[facility] LABCLIA [id number] [place] [address] [place] Eosinophils (Bld) [#/Vol] 0.09 10*3/uL Normal <0.46 [facility] Comment on above: Order Comment: Speci men Type: BLOOD SPECIMENOrdering Facility: [facility] Address: [address] [place] [address] Performed By: #### 5 7021-8 ####[facility] LABCLIA [id number] [place] [address] [place] Eosinophils/100 WBC (Bld) 1.4 % Normal [facility] Comment on above: Order Comment: Speci men Type: BLOOD SPECIMENOrdering Facility: [facility] Address: [address] [place] [address] Performed By: #### 5 7021-8 ####[facility] LABCLIA [id number] [place] [address] [place] Erythrocyte distribution width (RBC) [Ratio] 12.5 % Normal 11.5-15.0 [facility] Comment on above: Order Comment: Speci men Type: BLOOD SPECIMENOrdering Facility: [facility] Address: [address] [place] [address] Performed By: #### 5 7021-8 ####[facility] LABCLIA [id number] [place] [address] [place] Hematocrit (Bld) [Volume fraction] 37.1 % Normal 36.0-46.0 [facility] Comment on above: Order Comment: Speci men Type: BLOOD SPECIMENOrdering Facility: [facility] Address: [address] [place] [address] Performed By: #### 5 7021-8 ####[facility] LABCLIA [id number] [id number] [address] [place] Hemoglobin (Bld) [Mass/Vol] 11.8 g/dL Normal 11.5-15.5 [facility] Comment on above: Order Comment: Speci men Type: BLOOD SPECIMENOrdering Facility: [facility] Address: [address] [place] [address] Performed By: #### 5 7021-8 ####[facility] LABCLIA [id number] [place] [address] [place] Immature granulocytes (Bld) [#/Vol] 10*3/uL Normal <0.10 [facility] Comment on above: Order Comment: Speci men Type: BLOOD SPECIMENOrdering Facility: [facility] Address: [address] [place] [address] Performed By: #### 5 7021-8 ####[facility] LABCLIA [id number] [place] [address] [place] Immature granulocytes/100 WBC (Bld) 0.3 % Normal [facility] Comment on above: Order Comment: Speci men Type: BLOOD SPECIMENOrdering Facility: [facility] Address: [address] [place] [address] Performed By: #### 5 7021-8 ####[facility] LABCLIA [id number] [place] [address] [place] Lymphocytes (Bld) [#/Vol] 2.03 10*3/uL Normal 1.00-4.00 [facility] Comment on above: Order Comment: Speci men Type: BLOOD SPECIMENOrdering Facility: [facility] Address: [address] [place] [address] Performed By: #### 5 7021-8 ####[facility] LABCLIA [id number] [place] [address] [place] Lymphocytes/100 WBC (Bld) 32.6 % Normal [facility] Comment on above: Order Comment: Speci men Type: BLOOD SPECIMENOrdering Facility: [facility] Address: [address] [place] [address] Performed By: #### 5 7021-8 ####[facility] LABIA [id number] [place] [address] [place] MCH (RBC) [Entitic mass] 28.9 pg Normal 26.0-34.0 [facility] Comment on above: Order Comment: Speci men Type: BLOOD SPECIMENOrdering Facility: [facility] Address: [address] [place] [address] Performed By: #### 5 7021-8 ####[facility] LABIA [id number] [place] [address] [place] MCHC (RBC) [Mass/Vol] 31.8 g/dL Normal 30.5-36.0 [facility] Comment on above: Order Comment: Speci men Type: BLOOD SPECIMENOrdering Facility: [facility] Address: [address] [place] [address] Performed By: #### 5 7021-8 ####[facility] LABIA [id number] [place] [address] [place] MCV (RBC) [Entitic vol] 90.7 fL Normal 80.0-100.0 [facility] Comment on above: Order Comment: Speci men Type: BLOOD SPECIMENOrdering Facility: [facility] Address: [address] [place] [address] Performed By: #### 5 7021-8 ####[facility] LABIA [id number] [place] [address] [place] Monocytes (Bld) [#/Vol] 0.43 10*3/uL Normal <0.87 [facility] Comment on above: Order Comment: Speci men Type: BLOOD SPECIMENOrdering Facility: [facility] Address: [address] [place] [address] Performed By: #### 5 7021-8 ####[facility] LABCLIA [id number] [place] [address] [place] Monocytes/100 WBC (Bld) 6.9 % Normal [facility] Comment on above: Order Comment: Speci men Type: BLOOD SPECIMENOrdering Facility: [facility] Address: [address] [place] [address] Performed By: #### 5 7021-8 ####[facility] LABCLIA [id number] [place] [address] [place] Neutrophils (Bld) [#/Vol] 3.63 10*3/uL Normal 1.45-7.50 [facility] Comment on above: Order Comment: Speci men Type: BLOOD SPECIMENOrdering Facility: [facility] Address: [address] [place] [address] Performed By: #### 5 7021-8 ####[facility] LABCLIA [id number] [place] [address] [place] Neutrophils/100 WBC (Bld) 58.5 % Normal [facility] Comment on above: Order Comment: Speci men Type: BLOOD SPECIMENOrdering Facility: [facility] Address: [address] [place] [address] Performed By: #### 5 7021-8 ####[facility] LABCLIA [id number] [place] [address] [place] Nucleated RBC (Bld) [#/Vol] 10*3/uL Normal <0.01 [facility] Comment on above: Order Comment: Speci men Type: BLOOD SPECIMENOrdering Facility: [facility] Address: [address] [place] [address] Performed By: #### 5 7021-8 ####[facility] LABCLIA [id number] [place] [address] [place] Nucleated RBC/100 WBC (Bld) [Ratio] 0.0 /100 WBC Normal [facility] Comment on above: Order Comment: Speci men Type: BLOOD SPECIMENOrdering Facility: [facility] Address: [address] [place] [address] Performed By: #### 5 7021-8 ####[facility] LABIA [id number] [place] [address] [place] Platelet mean volume (Bld) [Entitic vol] 10.6 fL Normal 9.0-12.7 [facility] Comment on above: Order Comment: Speci men Type: BLOOD SPECIMENOrdering Facility: [facility] Address: [address] [place] [address] Performed By: #### 5 7021-8 ####[facility] LABIA [id number] [place] [address] [place] Platelets (Bld) [#/Vol] 269 10*3/uL Normal 150-400 [facility] Comment on above: Order Comment: Speci men Type: BLOOD SPECIMENOrdering Facility: [facility] Address: [address] [place] [address] Performed By: #### 5 7021-8 ####[facility] LABIA [id number] [place] [address] [place] RBC (Bld) [#/Vol] 4.09 10*6/uL Normal 3.90-5.20 [facility] Comment on above: Order Comment: Speci men Type: BLOOD SPECIMENOrdering Facility: [facility] Address: [address] [place] [address] Performed By: #### 5 7021-8 ####[facility] LABIA [id number] [place] [address] [place] WBC (Bld) [#/Vol] 6.22 10*3/uL Normal 3.70-11.00 [facility] Comment on above: Order Comment: Speci men Type: BLOOD SPECIMENOrdering Facility: [facility] Address: [address] [place] [address] Performed By: #### 5 7021-8 ####[facility] LABCLIA [id number] [place] [id number] [place] CNOVSPon 04-14-2024 CNOVSP Normal [facility] Ferritin SerPl-mCncon 2023 Ferritin [Mass/Vol] 34.5 ng/mL Normal 14.7-205.1 [facility] Comment on above: Order Comment: Speci men Type: BLOOD SPECIMENOrdering Facility: [facility] Address: [address] [place] [address] Performed By: #### 2 276-4, 26244-3 ####[facility] LABCLIA [id number] [place] [address] [place] Iron and Iron binding capaci ty panelon 04-14-2024 Iron [Mass/Vol] 50 ug/dL Normal 41-186 [facility] Comment on above: Order Comment: Speci men Type: BLOOD SPECIMENOrdering Facility: [facility] Address: [address] [place] [address] Performed By: #### 2 276-4, 94526-2 ####[facility] LABIA [id number] [place] [address] [place] Iron binding capacity [Mass/Vol] 394 ug/dL High 232-386 [facility] Comment on above: Order Comment: Speci men Type: BLOOD SPECIMENOrdering Facility: [facility] Address: [address] [place] [address] Performed By: #### 2 276-4, 03633-1 ####[facility] LABIA [id number] [place] [id number] [place] Iron/TIBC [Molar ratio] 12.7 % Low 15.0-57.0 [facility] Comment on above: Order Comment: Speci men Type: BLOOD SPECIMENOrdering Facility: [facility] Address: [address] [place] [address] Performed By: #### 2 276-4, 07882-1 ####[facility] LABCLIA [id number] [address] [place] .Auto Diffon 04-11-2024 Basophil, Absolute 0.0 10 3/mcL Normal 0.0-0.2 [facility] Comment on above: Performed By: #### A BSGEL, CBC, ABOGEL, ADIFF, ANEU ####Linda [address] [place], [place] [address] Basophils/100 WBC (Bld) 0.5 % Normal 0.0-2.5 [facility] Comment on above: Performed By: #### A BSGEL, CBC, ABOGEL, ADIFF, ANEU ####Linda [address] [place], [place] [address] Eosinophil, Absolute 0.1 10 3/mcL Normal 0.0-0.7 [facility] Comment on above: Performed By: #### A BSGEL, CBC, ABOGEL, ADIFF, ANEU ####Linda [address] [place], [place] [address] Eosinophils/100 WBC (Bld) 1.0 % Normal 0.0-7.0 [facility] Comment on above: Performed By: #### A BSGEL, CBC, ABOGEL, ADIFF, ANEU ####Linda [address] [place], [place] [address] Lymphocyte, Absolute 2.0 10 3/mcL Normal 0.9-4.3 [facility] Comment on above: Performed By: #### A BSGEL, CBC, ABOGEL, ADIFF, ANEU ####Linda [address] [place], [place] [address] Lymphocytes/100 WBC (Bld) 35.5 % Normal 20.0-40.0 [facility] Comment on above: Performed By: #### A BSGEL, CBC, ABOGEL, ADIFF, ANEU ####Linda [address] [place], [place] [address] Monocyte, Absolute 0.4 10 3/mcL Normal 0.1-1.4 [facility] Comment on above: Performed By: #### A BSGEL, CBC, ABOGEL, ADIFF, ANEU ####Linda [address] [place], [place] [address] Monocytes/100 WBC (Bld) 6.6 % Normal 2.0-13.0 [facility] Comment on above: Performed By: #### A BSGEL, CBC, ABOGEL, ADIFF, ANEU ####Linda [address] [place], [place] [address] Neutrophils/100 WBC (Bld) 56.4 % Normal 50.0-75.0 [facility] Comment on above: Performed By: #### A BSGEL, CBC, ABOGEL, ADIFF, ANEU ####Linda [address] [place], [place] [address] .NEUABSon 04-11-2024 Neutrophil, Absolute 3.1 10 3/mcL Normal 2.3-8.1 [facility] Comment on above: Performed By: #### A BSGEL, CBC, ABOGEL, ADIFF, ANEU ####Linda [address] [place], [place] [address] ABO/Rh (Gel)on 04-11-2024 ABO/Rh Interp Positive Invalid Interpretation Code [facility] Comment on above: Performed By: #### A BSGEL, CBC, ABOGEL, ADIFF, ANEU ####Linda [address] [place], [place] [address] ABS (Gel)on 04-11-2024 ABSC Interp (Gel) Negative Normal [facility] Comment on above: Performed By: #### G FR, BMP #### [facility] [address] [place] [address] CBCon 04-11-2024 Erythrocyte distribution width (RBC) [Ratio] 13.4 % Normal 11.5-15.5 [facility] Comment on above: Order Comment: Pre-A dmission Testing Performed By: #### A BSGEL, CBC, ABOGEL, ADIFF, ANEU ####Linda [address] [place], [place] [address] Hematocrit (Bld) [Volume fraction] 38.3 % Normal 34.0-46.0 [facility] Comment on above: Order Comment: Pre-A dmission Testing Performed By: #### A BSGEL, CBC, ABOGEL, ADIFF, ANEU ####Linda [address] [place], [place] [address] Hgb 12.7 G/dL Normal 12.0-16.0 [facility] Comment on above: Order Comment: Pre-A dmission Testing Performed By: #### A BSGEL, CBC, ABOGEL, ADIFF, ANEU ####Linda [address] [place], [place] [address] MCH (RBC) [Entitic mass] 29.2 pg Normal 27.0-33.0 [facility] Comment on above: Order Comment: Pre-A dmission Testing Performed By: #### A BSGEL, CBC, ABOGEL, ADIFF, ANEU ####[address] [address] MCHC 33.2 G/dL Normal 32.0-36.0 [facility] Comment on above: Order Comment: Pre-A dmission Testing Performed By: #### A BSGEL, CBC, ABOGEL, ADIFF, ANEU ####Linda [address] [place], [place] [address] MCV (RBC) [Entitic vol] 87.9 fL Normal 80.0-99.0 [facility] Comment on above: Order Comment: Pre-A dmission Testing Performed By: #### A BSGEL, CBC, ABOGEL, ADIFF, ANEU ####Linda [address] [address] Platelet 258 10 3/mcL Normal 150-450 [facility] Comment on above: Order Comment: Pre-A dmission Testing Performed By: #### A BSGEL, CBC, ABOGEL, ADIFF, ANEU ####Linda [address] [address] Platelet mean volume (Bld) [Entitic vol] 8.6 fL Normal 6.6-10.5 [facility] Comment on above: Order Comment: Pre-A dmission Testing Performed By: #### A BSGEL, CBC, ABOGEL, ADIFF, ANEU ####Linda [address] [place], [place] [address] RBC 4.35 10 6/mcL Normal 4.10-5.30 [facility] Comment on above: Order Comment: Pre-A dmission Testing Performed By: #### A BSGEL, CBC, ABOGEL, ADIFF, ANEU ####Linda [address] [place], [place] [address] WBC 5.5 10 3/mcL Normal 4.5-10.8 [facility] Comment on above: Order Comment: Pre-A dmission Testing Performed By: #### A BSGEL, CBC, ABOGEL, ADIFF, ANEU ####[address] [place], [place] [address] LABORATORYOrdered By: Shannan Rowe on 04-11-2024 ABO [...] D/C Summary- SPon 04-09-2024 D/C Summary- SP [facility] Speech Pathology [facility] [address] [place] [address] [address] [place] [id number] / REHABILITATION SERVICES DISCHARGE SUMMARY MR#: [id number] Acct: [id number] Name: MATT CALABRESE HELIO Rep #: [id number] : 2000 23 From: Angela Walker M.S., [employer] CHAR[employer] LOADER Referring : OUT OF TOWN DOCTOR Status: REG R CR Insurance: [facility] [employer] SELF PAY INSURANCE ST Discharge Summary Discharged: Discharge: MATT CALABRESE is a 23 year old female who presented to [facility] on 02/19/2024 following a dx of dysphagia. Pt attended initial evaluation with goals created to participate in a MBSS to objectively assess swallow function. Pt participated in MBSS with [facility]. Pt provided ST the results following the [...] Pt???s request following script from physician. 04/09/24 1246 CC: AURY TRISTAN; No Primary Care Physician RE Signed Normal [facility] CT CHEST WO IVCONon 04-07-20 CT CHEST WO IVCON Normal [facility] CT Chest WO contraston 04-07 IMPRESSION: Stable lung nodules and faintly calcified thoracic lymphadenopathy, compatible with granulomatous process and likely related to reported histoplasmosis, DDx includes sarcoidosis. 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: WILL Transcribe Date/Time: Apr 07 2024 10:30A Dictated by : KENYETTA RUVALCABA MD This examination was interpreted and the report reviewed and electronically signed by: VALERIE AYERS MD on Apr 07 2024 11:41AM [facility] DIVISION OF RADIOLOGY * * *Final Report* * * DATE OF EXAM: Apr 07 2024 8:27AM [facility] 0541 - CT CHEST WO IVCON [...] No additional findings. DIVISION OF RADIOLOGY Provider, [facility] - 04/07/2024 * * *Final Report* * * DATE OF EXAM: Apr 07 2024 8:27AM [facility] 0541 - CT CHEST WO IVCON [...] related to reported histoplasmosis, DDx includes sarcoidosis. 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: WILL Transcribe Date/Time: Apr 07 2024 10:30A Dictated by : KENYETTA RUVALCABA MD This examination was interpreted and the report reviewed and electronically signed by: VALERIE AYERS MD on Apr 07 2024 11:41AM EST [facility] Radiology Study observation (narrative) [facility] CT Chest WO contrastOrdered By: Ccf Provider on 04-07-2024 [facility] CNPNon 04-01-2024 CNPN Normal [facility] CNTHERAPYon 03-07-2024 CNTHERAPY OT/PT/Speech Visit (SPMBMM) ----- MATT CALABRESE ([id number]) 89 F Date Time Provider Department 03/07/24 12:00 PM [facility] Date Time Provider Department Center 03/07/2024 12:00 PM [id number], [facility] SPMBMM Hosp Reason for Visit: Speech Instrumental Swallow [...] TIREDNESS CAN TAKE FULL TAB Letter Text [facility] XR MOD BARIUM SWALLOW W SHARLAYuri Ramosn 03-07-2024 XR MOD BARIUM SWALLOW W SPEECH [...] TO THE SPEECH PATHOLOGIST REPORT AND RECOMMENDATIONS. 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: PSCMerced Transcribe Date/Time: Mar 10 2024 8:54A Dictated by : REHANA HAN MD This examination was interpreted and the report reviewed and electronically signed by: REHANA HAN MD on Mar 10 2024 8:54AM EST [id number] [facility] CARDIOLIPIN IGG ABSon 2023 Cardiolipin IgG IA Qn (S) <9.0 Normal <15.0 [facility] Comment on above: Order Comment: Speci cheri Type: BLOOD SPECIMENOrdering Facility: [facility] Address: [address] [place] [address] Result Comment: <15 GPL [id number] GPL Indeterminate>20 GPL PositiveThe following results were obtained with the [employer]A Lite JUDSON IgG III ISABELLA. Cardiolipin IgG values obtained with the different manufacturers' assay methods may not be used interchangeably. The magnitude of the reported IgG levels cannot be correlated to an endpoint titer. Performed By: #### C AMY, 5076-5, ANDERS ####[facility] LABCLIA [id number] [facility] [id number] [place] CARDIOLIPIN IGM ABSon 2023 Cardiolipin IgM IA Qn (S) <9.0 Normal <12.5 [facility] Comment on above: Order Comment: Speci cheri Type: BLOOD SPECIMENOrdering Facility: [facility] Address: [address] [place] [address] Result Comment: <12. 5 MPL Acaxnmuh11.5-20 MPL Indeterminate>20 MPL PositiveThe following results were obtained with the [employer]ova QUANTA Lite JUDSON IgM III ISABELLA. Cardiolipin IgM values obtained with the different manufacturers' assay methods may not be used interchangeably. The magnitude of the reported IgM levels cannot be correlated to an endpoint titer.??? Performed By: #### C AMY 5076-5, NADERS ####[facility] LABIA [id number] [address] [place] [facility] C[facility] 2023 aPTT Coag (PPP) [Time] 25.9 s Normal 23.0-32.4 [facility] Comment on above: Order Comment: Ronnie alonzo Type: BLOOD SPECIMENOrdering Facility: [facility] Address: [address] [place] [address] Performed By: #### C ORPNL ####[facility] [id number] [address] [place] Fibrinogen Coag (PPP) [Mass/Vol] 358 mg/dL Normal 200-400 [facility] Comment on above: Order Comment: Ronnie alonzo Type: BLOOD SPECIMENOrdering Facility: [facility] Address: [address] [place] [address] Performed By: #### C ORPNL ####[facility] [id number] [address] STATES [facility] INR Coag (PPP) [Relative time] 1.0 {INR} Normal 0.9-1.3 [facility] Comment on above: Order Comment: Ronnie alonzo Type: BLOOD SPECIMENOrdering Facility: [facility] Address: [address] [place] [address] Result Comment: Isis min K Antagonist (VKA) Therapeutic Range: INR 2 to 3 (Target INR of 2.5)Note: For patients treated with VKA drugs, such as warfarin, the [place] [employer] 2012 Guideline recommends [...] of 2.5 to 3.5 (target INR of 3).Cristóbal MATA, et al. Chest 2012, 141:7S-47SKelvin RA, et al. [facility] 2017, 70: 252-289 Performed By: #### C ORPNL ####[facility]IA [id number] [address] [place] Performed By: #### 1 4979-9, 57466-9 ####[facility] [id number] [place] [address] [place] PT Coag (PPP) [Time] 10.3 s Normal 9.7-13.0 [facility] Comment on above: Order Comment: Speci men Type: BLOOD SPECIMENOrdering Facility: [facility] Address: [address] [place] [address] Performed By: #### C ORPNL ####[facility] [id number] [address] [place] CRP SerPl-mCncon 02-27-2024 CRP [Mass/Vol] 0.9 mg/dL High <0.9 [facility] Comment on above: Order Comment: Speci men Type: BLOOD SPECIMENOrdering Facility: [facility] Address: [address] [place] [address] Performed By: #### 1 988-5 ####[facility] [id number] [place] [address] [place] Cardiolipin IgA Ser IA-aCnco n 02-27-2024 Cardiolipin IgA IA Qn (S) <9.0 Normal <12.0 [facility] Comment on above: Order Comment: Speci men Type: BLOOD SPECIMENOrdering Facility: [facility] Address: [address] [place] [address] Result Comment: <12 APL Exbabumu55-69 APL Indeterminate>20 APL PositiveThe following results were obtained with the [employer] QUANTA Lite JUDSON IgA III ISABELLA. Cardiolipin IgA values obtained with the different manufacturers' assay methods may not be used interchangeably. The magnitude of the reported IgA levels cannot be correlated to an endpoint titer. Performed By: #### C AMY, 5076-5, ANDERS ####[facility] [id number] [place] [address] [place] HYPERCOAG PANELon 02-27-2024 Activated protein C resistance Coag (PPP) [Time ratio] 2.37 Ratio Normal >1.96 [facility] Comment on above: Order Comment: Speci men Type: BLOOD SPECIMENOrdering Facility: [facility] Address: [address] [place] [address] Performed By: #### H COAG ####[facility] [id number] [place] [address] [place] Antithrombin actual/normal Chromogenic method (PPP) [Rel catalytic activity/Vol] 114 % Normal 84-138 [facility] Comment on above: Order Comment: Speci men Type: BLOOD SPECIMENOrdering Facility: [facility] Address: [address] [place] [address] Performed By: #### H COAG ####[facility] [id number] [place] [address] [place] aPTT Coag (Bld) [Time] 24.0 s Normal 24.0-35.1 [facility] Comment on above: Order Comment: Speci men Type: BLOOD SPECIMENOrdering Facility: [facility] Address: [address] [place] [address] Performed By: #### H COAG ####[facility] [id number] [place] [address] [place] aPTT W excess hexagonal phase phospholipid Coag (PPP) [Time] 43.1 seconds Normal 34.0-51.8 [facility] Comment on above: Order Comment: Speci men Type: BLOOD SPECIMENOrdering Facility: [facility] Address: [address] [place] [address] Performed By: #### H COAG ####[facility] [id number] [address] Coagulation factor VIII activity actual/normal Coag (PPP) [Relative time] 218 % High 50-173 [facility] Comment on above: Order Comment: Speci men Type: BLOOD SPECIMENOrdering Facility: [facility] Address: [address] [place] [address] Result Comment: This test was developed, and its performance characteristics determined by the [facility] Department of Pathology and Laboratory Medicine. It has not been cleared or approved by the FDA. The [facility] Department of Pathology and Laboratory Medicine is regulated under CLIA as qualified to perform high-complexity testing. This test is used for clinical purposes. It should not be regarded as investigational or for research. Performed By: #### H COAG ####[facility] [id number] [address] OF [facility] Performed By: #### L [id number] ####[facility] [id number] [address] [place] Coagulation factor X activated act Coag Qn (PPP) <0.10 Normal <0.10 [facility] Comment on above: Order Comment: Speci men Type: BLOOD SPECIMENOrdering Facility: [facility] Address: [address] [place] [address] Result Comment: This test was developed, and its performance characteristics determined by the [facility] Department of Pathology and Laboratory Medicine. It has not been cleared or approved by the FDA. The [facility] Department of Pathology and Laboratory Medicine is regulated under CLIA as qualified to perform high-complexity testing. This test is used for clinical purposes. It should not be regarded as investigational or for research. Performed By: #### H COAG ####[facility] [id number] [place] [address] [place] Delta dRVVT Coag (PPP) [Time diff] 3.9 delta seconds Normal <7.1 [facility] Comment on above: Order Comment: Speci men Type: BLOOD SPECIMENOrdering Facility: [facility] Address: [address] [place] [address] Performed By: #### H COAG ####[facility] [id number] [place] [address] [place] dRVVT W excess hexagonal phase phospholipid actual/normal Coag (PPP) [Relative time] 39.2 seconds Normal 34.2-47.9 [facility] Comment on above: Order Comment: Speci men Type: BLOOD SPECIMENOrdering Facility: [facility] Address: [address] [place] [address] Performed By: #### H COAG ####[facility] [id number] [place] [address] [place] Protein C actual/normal Coag (PPP) [Relative time] 118 % Normal 76-147 [facility] Comment on above: Order Comment: Speci men Type: BLOOD SPECIMENOrdering Facility: [facility] Address: [address] [place] [address] Performed By: #### H COAG ####[facility] [id number] [place] [address] [place] Protein S actual/normal Coag (PPP) [Relative time] 99 % Normal 59-152 [facility] Comment on above: Order Comment: Speci men Type: BLOOD SPECIMENOrdering Facility: [facility] Address: [address] [place] [address] Performed By: #### H COAG ####[facility] [id number] [place] [address] [place] Thrombin time Coag (PPP) [Time] 17.8 seconds Normal <18.6 [facility] Comment on above: Order Comment: Speci men Type: BLOOD SPECIMENOrdering Facility: [facility] Address: [address] [place] [address] Performed By: #### H COAG ####[facility] LABCLIA [id number] [address] Hematocrit Auto (Bld) [Volum e fraction]on 02-27-2024 Hematocrit (Bld) [Volume fraction] 36.4 % Normal 36.0-46.0 [facility] Comment on above: Order Comment: Speci men Type: BLOOD SPECIMENOrdering Facility: [facility] Address: [address] [place] [address] Performed By: #### 7 77-3, 4544-3 ####[facility] [id number] [address] LABORATORYOrdered By: SYSTEM SYSTEM on 02-27-2024 Insulin Qn 134.79 munit/L High 2.60 - 37.60 mU/L AH ADM SS PLATELET FUNCTION SCREENon 1 Platelet function (closure time) collagen+ADP induced (Bld) [Time] 63 CT (seconds) Normal <118 [facility] Comment on above: Order Comment: Speci men Type: BLOOD SPECIMENOrdering Facility: [facility] Address: [address] [place] [address] Performed By: #### P LTSCN ####[facility] [id number] [address] Platelet function (closure time) collagen+EPINEPHrine induced (Bld) [Time] 86 CT (seconds) Normal <194 [facility] Comment on above: Order Comment: Speci men Type: BLOOD SPECIMENOrdering Facility: [facility] Address: [address] [place] [address] Performed By: #### P LTSCN ####[facility] LABCLIA [id number] [place] [address] [place] PROTHROMBIN GENE PCRon 02-26 PROTHROMBIN GENE MUTATION Normal [facility] Comment on above: Order Comment: Speci men Type: BLOOD SPECIMENOrdering Facility: [facility] Address: [address] [place] [address] Result Comment: Prot hrombin Gene MutationLaboratory Accession Number: [id number]:NORMALInterpretation:The DNA sample is negative for the c.*97G>A variant (legacy fpwb17520J>A) in the 3' untranslated region of the Factor II (F2) gene.This result is not associated with an increased risk of thromboembolicdisease. Thromboembolic disease is a multifactorial disorder and othercauses are not excluded by this result.Methodology:Isolated Genomic DNA from the patient's blood specimen is evaluatedfor the c*97G>A (g.35735207) variant of the F2 gene [RefSeqNM_[id number];GRCh38/hg38] by multiplex polymerase chain reaction(PCR) followed by melting curve analysis.Limitations:This assay is designed to detect the c.*97G>A (74069D>A) variant inthe F2 gene. Uncommon variants or single nucleotide polymorphisms mayaffect binding of probes and may rarely result in false negative,false positive or indeterminate results. This assay does not detectother disease-associated rare variants in F2 or other causes ofthromboembolic disease.Disclaimer:This test was developed and its performance characteristics determinedby [facility]'s Pathology and Laboratory Medicine Department. Ithas not been cleared or approved by the FDA. [facility]'sPathology and Laboratory Medicine Department is regulated under CLIAas certified to perform high-complexity testing. This test is used forclinical purposes. It should not be regarded as investigational or forresearch.Testing and interpretation performed at [facility], [address] [place] [address]. CLIA Number: [id number]:1) Inheritied Thrombophilias in . ACOG Practice Bulletin. No.197. [place] [employer]. ObseteGynecol 2018;132:e18-34.2) Luna SR, Yvonne FR, Tashi RICH, and Cheri RM. A commongenetic variation in the 3'-untranslated region of the prothrombingene is associated with elevated plasma prothrombin levels and anincrease in venous thrombosis. Blood 88:3698-703, 1996.3) Da Rooney, Lilian V, Heri Infante, Maya Valle. Bswhktskzzy20580M>T: 16 new cases, association with the 98423N>G polymorphism,and literature review. J Thromb Haemost. 2009;9:1585-7.As reviewed by Adali La MD Performed By: #### P TGEN ####[facility] [id number] [place] [address] [place] PT panel Coag (PPP)on 2023 PT Coag (PPP) [Time] 9.8 s Normal <13.1 [facility] Comment on above: Order Comment: Speci men Type: BLOOD SPECIMENOrdering Facility: [facility] Address: [address] [place] [address] Performed By: #### 1 4979-9, 50185-0 ####[facility] [id number] [place] [address] [place] Platelets Auto (Bld) [#/Vol] on 02-27-2024 Platelets (Bld) [#/Vol] 261 10*3/uL Normal 150-400 [facility] Comment on above: Order Comment: Speci men Type: BLOOD SPECIMENOrdering Facility: [facility] Address: [address] [place] [address] Performed By: #### 7 77-3, 4544-3 ####[facility] [id number] [address] [place] TYPE + SCREENon 02-27-2024 ABO A Normal [facility] Comment on above: Order Comment: Speci men Type: BLOOD SPECIMENOrdering Facility: [facility] Address: [address] [place] [address] Performed By: #### T SCR ####[facility] BLOOD BANKIA [id number] [place] [address] [place] Rh Nom (Bld) Positive Normal [facility] Comment on above: Order Comment: Speci men Type: BLOOD SPECIMENOrdering Facility: [facility] Address: [address] [place] [address] Performed By: #### T SCR ####[facility] BLOOD BANKIA [id number] [address] [place] TYPE AND SCREEN EXPIRATION 03/01/2024 23:59 Normal [facility] Comment on above: Order Comment: Speci men Type: BLOOD SPECIMENOrdering Facility: [facility] Address: [address] [place] [address] Performed By: #### T SCR ####[facility] BLOOD BANKIA [id number] [address] [place] VON WILLEBRAND PNL (VWFPN)on 02-27-2024 Bound rFVIII/vWf Ag IA (P) [Relative ratio] 1.3 Normal >=0.5 [facility] Comment on above: Order Comment: Speci men Type: BLOOD SPECIMENOrdering Facility: [facility] Address: [address] [place] [address] Performed By: #### L [id number] ####[facility] [id number] [address] [place] GPIBM ACTIVITY >160 High 44-156 [facility] Comment on above: Order Comment: Speci men Type: BLOOD SPECIMENOrdering Facility: [facility] Address: [address] [place] [address] Result Comment: This test was developed, and its performance characteristics determined by the [facility] Department of Pathology and Laboratory Medicine. It has not been cleared or approved by the FDA. The [facility] Department of Pathology and Laboratory Medicine is regulated under CLIA as qualified to perform high-complexity testing. This test is used for clinical purposes. It should not be regarded as investigational or for research. Performed By: #### L [id number] ####[facility] [id number] [address] [place] Platelet aggregation ristocetin induced Ql (PRP) Essentially normal dose response Abnormal Normal dose response [facility] Comment on above: Order Comment: Speci men Type: BLOOD SPECIMENOrdering Facility: [facility] Address: [address] [place] [address] Result Comment: Revi ewed by Manda No MD ([id number]) Performed By: #### L [id number] ####[facility] [id number] [address] [place] vWf Ag actual/normal IA (PPP) [Relative mass conc] 165 % Normal 50-173 [facility] Comment on above: Order Comment: Speci men Type: BLOOD SPECIMENOrdering Facility: [facility] Address: [address] [place] [address] Performed By: #### L [id number] ####[facility] [id number] [address] [place] vWf multimers Ql (PPP) Normal [facility] Comment on above: Order Comment: Speci men Type: BLOOD SPECIMENOrdering Facility: [facility] Address: [address] [place] [address] Result Comment: Assa y of von Willebrand multimers was performed by an agarose gel electrophoresis followed by immunofixation with anti-von Willebrand factor antiserum. There is a normal multimer distribution with high intensity of bands.Reviewed by Priscilla [place]as M.D., Ph.D.This test was developed, and its performance characteristics determined by the [facility] Department of Pathology and Laboratory Medicine. It has not been cleared or approved by the FDA. The [facility] Department of Pathology and Laboratory Medicine is regulated under CLIA as qualified to perform high-complexity testing. This test is used for clinical purposes. It should not be regarded as investigational or for research. Performed By: #### L [id number] ####[facility] [id number] [place] [address] [place] vWf ristocetin cofactor act/vWf Ag (PPP) [Ratio] 1.2 Normal >=0.5 [facility] Comment on above: Order Comment: Speci men Type: BLOOD SPECIMENOrdering Facility: [facility] Address: [address] [place] [address] Performed By: #### L [id number] ####[facility] [id number] [address] [place] vWf ristocetin cofactor Qn (PPP) 194 % High 42-146 [facility] Comment on above: Order Comment: Speci men Type: BLOOD SPECIMENOrdering Facility: [facility] Address: [address] [place] [address] Result Comment: This test was developed, and its performance characteristics determined by the [facility] Department of Pathology and Laboratory Medicine. It has not been cleared or approved by the FDA. The [facility] Department of Pathology and Laboratory Medicine is regulated under CLIA as qualified to perform high-complexity testing. This test is used for clinical purposes. It should not be regarded as investigational or for research. Performed By: #### L [id number] ####[facility] [id number] [address] vWf.collagen binding activity actual/normal IA (PPP) [Relative ratio] 171 % High 41-161 [facility] Comment on above: Order Comment: Speci men Type: BLOOD SPECIMENOrdering Facility: [facility] Address: [address] [place] [address] Result Comment: This test was developed, and its performance characteristics determined by the [facility] Department of Pathology and Laboratory Medicine. It has not been cleared or approved by the FDA. The [facility] Department of Pathology and Laboratory Medicine is regulated under CLIA as qualified to perform high-complexity testing. This test is used for clinical purposes. It should not be regarded as investigational or for research. Performed By: #### L [id number] ####[facility] [id number] [place] [address] [place] vWf.collagen binding activity/vWf Ag IA (PPP) [Ratio] 1.0 Normal >=0.6 [facility] Comment on above: Order Comment: Speci men Type: BLOOD SPECIMENOrdering Facility: [facility] Address: [address] [place] [address] Performed By: #### L [id number] ####[facility] [id number] [place] [id number] [place] aPTT PPPon 02-27-2024 aPTT Coag (PPP) [Time] 24.7 s Normal 23.0-32.4 [facility] Comment on above: Order Comment: Speci men Type: BLOOD SPECIMENOrdering Facility: [facility] Address: [address] [place] [address] Performed By: #### 1 4979-9, 61982-8 ####[facility] [id number] [place] [address] [place] CNOVon 02-26-2024 CNOV Normal [facility] STREP A MOLECULAR (POC)on Procedural Control Valid [facility] Strep A (POCT) Negative Negative [facility] CNPNon 02-22-2024 CNPN Normal [facility] CNOVSPon 02-20-2024 CNOVSP Normal [facility] CNPNon 02-20-2024 CNPN Normal [facility] GENETIC SENDOUTon 02-15-2024 Genetic Test Name CancerNext-Expanded Panel Normal [facility] Comment on above: Order Comment: Name of Test:->CancerNext-Expanded Panel Billing type:->Direct Specimen Type->Blood Specimen requirements:->3 ml in edta and 1.5 ml in pax Specimen Tube->EDTA and PAX What is the sendout facility name, if known?->[facility] Performed By: #### 1 170 #### MARQUITA Allen ([id number]) [place]) [address] Genetic Test Reference Lab [facility] Comment on above: Order Comment: Name of Test:->CancerNext-Expanded Panel Billing type:->Direct Specimen Type->Blood Specimen requirements:->3 ml in edta and 1.5 ml in pax Specimen Tube->EDTA and PAX What is the sendout facility name, if known?->[facility] Performed By: #### 1 170 #### MARQUITA Allen ([id number]) [facility]) [address] Miscellaneous Results Patient results sc anned into [facility] Comment on above: Order Comment: Name of Test:->CancerNext-Expanded Panel Billing type:->Direct Specimen Type->Blood Specimen requirements:->3 ml in edta and 1.5 ml in pax Specimen Tube->EDTA and PAX What is the sendout facility name, if known?->[facility] Performed By: #### 1 170 #### MARQUITA Allen ([id number]) [place] [facility] [facility] ([facility]) [address] CNOVon 02-06-2024 CNOV Normal [facility] CNPNon 02-05-2024 CNPN Normal [facility] CNOVon 02-01-2024 CNOV Normal [facility] CNOVon 01-25-2024 CNOV Normal [facility] CNPNon 01-24-2024 CNPN Normal [facility] ANES POSTPROC EVALon 024 ANES POSTPROC EVAL Normal [facility] ANES PRE-OPon 01-22-2024 ANES PRE-OP Normal [facility] BRIEF OP NOTon 01-22-2024 BRIEF OP NOT Normal [facility] HISTORY PHYSICALon HISTORY PHYSICAL Normal [facility] OPERATIVE NOon 01-22-2024 OPERATIVE NO Normal [facility] SURGICAL PATHOLOGYon 024 CASE REPORT Normal [facility] Comment on above: Order Comment: Speci men Type: TISSUE SPECIMENOrdering Facility: [facility] Address: [address] [place] [address] Result Comment: Surg [facility] Pathology Report Case: [id number] Provider: Stacy Segura MD Collected: 01/22/2024 08:07 AMOrdering Location: Ambulatory Surgery Received: 01/22/2024 10:45 AMPathologist: Jocy Noyola MDSpecimens: A) - Breast Reduction/Revision, Left, Mammoplasty B) - Breast Reduction/Revision, Right, Mammoplasty Performed By: #### S ####[facility] [id number] [address] [place] CLINICAL HISTORY Normal [facility] Comment on above: Order Comment: Speci men Type: TISSUE SPECIMENOrdering Facility: [facility] Address: [address] [place] [address] Result Comment: Pre- op diagnosis:Macromastia [N62]Chronic bilateral low back pain without sciatica [M54.50, G89.29]Neck pain [M54.2]Intertrigo [L30.4] Performed By: #### S ####[facility] [id number] [address] FINAL DIAGNOSIS Normal [facility] Comment on above: Order Comment: Speci men Type: TISSUE SPECIMENOrdering Facility: [facility] Address: [address] [place] [address] Result Comment: A. L eft breast, reduction/revision mammoplasty:- Unremarkable breast parenchyma and skin.B. Right breast, reduction/revision mammoplasty:- Breast tissue with fibroadenomatoid change.- Unremarkable skin. Performed By: #### S ####[facility] LABCLIA [id number] [address] FINAL PERFORMING LAB Normal [place] [facility] Comment on above: Order Comment: Speci men Type: TISSUE SPECIMENOrdering Facility: [facility] Address: [address] [place] [address] Result Comment: Diag nostic interpretation performed at [facility], [address] [place] [address] CLIA# [id number] Director: John Zuluaga M.D. Performed By: #### S ####[facility] LABIA [id number] [place] [address] [place] GROSS DESCRIPTION Normal [facility] Comment on above: Order Comment: Speci men Type: TISSUE SPECIMENOrdering Facility: [facility] Address: [address] [place] [address] Result Comment: A. B reast Reduction/Revision, Left, MammoplastyReceived formalin labeled as breast reduction revision left mammoplasty are multiple fragments of fibrofatty breast tissue and skin aggregating to 28.0 x 17.0 x 6.5 cm and 728.4 g. The fragments of skin are unremarkable. Sectioning reveals a chester-yellow cut surface with irregular rubbery streaks composing approximately 50% of the specimen. Chemical Detection Expert sections are submitted in one cassette.B. Breast Reduction/Revision, Right, MammoplastyReceived in formalin labeled as breast reduction revision mammoplasty right are multiple fragments of fibrofatty breast tissue and skin aggregating to 27.0 x 26.0 x 5.2 cm and 872.4 g. The fragments of skin are unremarkable. Sectioning reveals a chester-yellow cut surface with irregular rubbery streaks composing approximately 50% of the specimen. Chemical Detection Expert sections are submitted in one cassette.MLG January 22, 2024 4:44 PMGross examination performed at [facility], [address] [place] [address] Performed By: #### S ####[facility] LABIA [id number] [place] [address] [place] CNOVon 01-18-2024 CNOV Normal [facility] HISTORY PHYSICALon HISTORY PHYSICAL Normal [facility] CNPNon 01-16-2024 CNPN Normal [facility] CNPNon 01-15-2024 CNPN Normal [facility] CNOVon 01-07-2024 CNOV Office Visit (AGSPIN E3) ----- MATT CALABRESE ([id number]) 89 F Date Time Provider Department 01/07/24 1:00 PM TAMARA MAXWELL AGSPINE3 During your visit today, we recorded the following information about you: Pulse Respiration Last Period Normal [facility] US BREAST LEFT LIMITEDon US BREAST LEFT LIMITED ORIGINAL FROM: [address] [address] PROCEDURE FOR: MATT CALABRESE [address] [facility] [address] [place] [id number] Home: PID#: [id number] Exam#: [id number] : 2000 Age: 23 TO: JACK PRIEST APRN [address] [address] Fax: NO FAX EXAMINATION: ULTRASOUND OF THE LEFT BREAST 01/01/2024 1:16 pm TECHNIQUE: Color flow and snell scale targeted ultrasound of the left breast 9 o'clock were performed. Permanently stored images were reviewed. COMPARISON: 04/23/2023 HISTORY: ORDERING SYSTEM PROVIDED HISTORY: Reason for Exam: lt breast lesion follow up from [facility] Follow-up left breast cyst 9 o'clock FINDINGS: [...] screening mammography should begin at age 30. Sandradarnell Martinezsushila risk calculations, generated with the history provided, [...] addition to annual mammographic screening per the [employer]. BIRADS: BI-RADS: 3: Probably Benign RECALL: 6 month follow-up RECALL TYPE: Left US LETTER SENT: Probably Benign BI-RADS 3 Interpreted by: Abdi Chávez MD Preliminary Report By: Abdi Chávez MD Electronically signed By Abdi Chávez MD Dictated Date: 01/01/2024 1:51:32 PM Prelim Date: 01/01/2024 1:56:46 PM Sign Date: 01/01/2024 1:56:46 PM Ordering Provider: JACK PRIEST CLINICAL: 6 MONTHS FOLLOW-UP. Dopster: ANIDE VELEZ RT (R, CT), RDMS letter sent: Probably Benign BI-RADS 3 Ultrasound BI-RADS: 3 Probably benign Normal [facility] ([place]) CNOVon 12-31-2023 CNOV Normal [facility] CNPNon 12-28-2023 CNPN Normal [facility] .Auto Diffon 12-26-2023 Basophil, Absolute 0.1 10 3/mcL Normal 0.0-0.2 [facility] ([place]) Comment on above: Performed By: #### A DIFF, FES, ANEU, FERR, CBC, PRO #### [address] [address] Basophils/100 WBC (Bld) 0.6 % Normal 0.0-2.5 [facility] ([place]) Comment on above: Performed By: #### A DIFF, FES, ANEU, FERR, CBC, PRO #### [address] [address] Eosinophil, Absolute 0.1 10 3/mcL Normal 0.0-0.4 [facility] ([place]) Comment on above: Performed By: #### A DIFF, FES, ANEU, FERR, CBC, PRO #### [address] [address] Eosinophils/100 WBC (Bld) 0.7 % Normal 0.0-7.0 [facility] ([place]) Comment on above: Performed By: #### A DIFF, FES, ANEU, FERR, CBC, PRO #### [address] [address] Lymphocyte, Absolute 2.3 10 3/mcL Normal 0.8-3.9 [facility] ([place]) Comment on above: Performed By: #### A DIFF, FES, ANEU, FERR, CBC, PRO #### [address] [address] Lymphocytes/100 WBC (Bld) 25.3 % Normal 10.0-50.0 [facility] ([place]) Comment on above: Performed By: #### A DIFF, FES, ANEU, FERR, CBC, PRO #### [address] [address] Monocyte, Absolute 0.6 10 3/mcL Normal 0.2-1.0 [facility] ([place]) Comment on above: Performed By: #### A DIFF, FES, ANEU, FERR, CBC, PRO #### [address] [address] Monocytes/100 WBC (Bld) 6.6 % Normal 1.7-13.0 [facility] ([place]) Comment on above: Performed By: #### A DIFF, FES, ANEU, FERR, CBC, PRO #### [address] [address] Neutrophils/100 WBC (Bld) 66.8 % Normal 37.0-80.0 [facility] ([place]) Comment on above: Performed By: #### A DIFF, FES, ANEU, FERR, CBC, PRO #### [address] [address] .NEUABSon 12-26-2023 Neutrophil, Absolute 6.1 10 3/mcL Normal 2.9-6.2 [facility] ([place]) Comment on above: Performed By: #### A DIFF, FES, ANEU, FERR, CBC, PRO #### [address] [address] CBCon 12-26-2023 Erythrocyte distribution width (RBC) [Ratio] 13.1 % Normal 11.5-14.5 [facility] ([place]) Comment on above: Performed By: #### A DIFF, FES, ANEU, FERR, CBC, PRO #### [place] [address] Hematocrit (Bld) [Volume fraction] 41.8 % Normal 37.0-47.0 [facility] ([place]) Comment on above: Performed By: #### A DIFF, FES, ANEU, FERR, CBC, PRO #### [place] [address] Hgb 13.8 G/dL Normal 12.0-16.0 [facility] ([place]) Comment on above: Performed By: #### A DIFF, FES, ANEU, FERR, CBC, PRO #### [place] [address] MCH (RBC) [Entitic mass] 29.7 pg Normal 27.0-31.2 [facility] ([place]) Comment on above: Performed By: #### A DIFF, FES, ANEU, FERR, CBC, PRO #### [place] [address] MCHC 33.1 G/dL Normal 33.0-37.0 [facility] ([place]) Comment on above: Performed By: #### A DIFF, FES, ANEU, FERR, CBC, PRO #### [place] [address] MCV (RBC) [Entitic vol] 89.8 fL Normal 80.0-94.0 [facility] ([place]) Comment on above: Performed By: #### A DIFF, FES, ANEU, FERR, CBC, PRO #### [address] [address] Platelet 300 10 3/mcL Normal 130-400 [facility] ([place]) Comment on above: Performed By: #### A DIFF, FES, ANEU, FERR, CBC, PRO #### [address] [address] Platelet mean volume (Bld) [Entitic vol] 8.1 fL Normal 7.4-10.4 [facility] ([place]) Comment on above: Performed By: #### A DIFF, FES, ANEU, FERR, CBC, PRO #### [address] [address] RBC 4.65 10 6/mcL Normal 4.20-5.40 [facility] ([place]) Comment on above: Performed By: #### A DIFF, FES, ANEU, FERR, CBC, PRO #### [address] [address] WBC 9.1 10 3/mcL Normal 4.6-10.8 [facility] ([place]) Comment on above: Performed By: #### A DIFF, FES, ANEU, FERR, CBC, PRO #### [address] [address] CNPNon 12-26-2023 CNPN Normal [facility] Dion 12-26-2023 Ferritin [Mass/Vol] 49.0 ng/mL Normal 8.0-252.0 [facility] ([place]) Comment on above: Performed By: #### A DIFF, FES, ANEU, FERR, CBC, PRO #### [address] [address] FESon 12-26-2023 Iron [Mass/Vol] 63 ug/dL Normal 50-170 [facility] ([place]) Comment on above: Performed By: #### A DIFF, FES, ANEU, FERR, CBC, PRO ####[address] [address] Iron Sat 16 % Normal [facility] ([place]) Comment on above: Performed By: #### A DIFF, FES, ANEU, FERR, CBC, PRO ####[address], [place] [address] TIBC 403 mcg/dL Normal 250-450 [facility] ([place]) Comment on above: Performed By: #### A DIFF, FES, ANEU, FERR, CBC, PRO ####[facility] [place], [place] [address] No Panel Informationon 12-25 Culture Urine >100,000 cfu/ml Mixe d growth consistent with normal urogenital sandra. [facility] Work Phone: PROon 12-26-2023 PT Coag (PPP) [Time] 10.1 s Normal 9.0-14.4 [facility] ([place]) Comment on above: Performed By: #### A DIFF, FES, ANEU, FERR, CBC, PRO ####[place] [address] [place], [place] [address] PT International Ratio 0.9 Normal [facility] ([place]) Comment on above: Result Comment: The [place] [employer] (CHEST, 1992, 102:312S-25S) recommended therapeutic range for oral anticoagulant therapy is: LOW RISK: Prophylaxis of venous thrombosis INR: 2.0-3.0 Treatment of pulmonary embolism 2.0-3.0 Prevention of systemic embolism 2.0-3.0 HIGH RISK: Mechanical prosthetic valves 2.5-3.5 Performed By: #### A DIFF, FES, ANEU, FERR, CBC, PRO ####[facility] [place], [place] [address] US ARM VEIN DVT UNL VAS LABo n 12-25-2023 US ARM VEIN DVT UNL VAS LAB Non-Invasive Vascular Laboratory [facility] Upper Extremity Venous Duplex Unilateral - Right [...] Interpreting physician: Julian Guzman MD Final CC [facility] Image : [id number] See Link below for Image Normal [facility] US Upper extremity veinson 0 12-25-2023 Non-Invasive Vascular Laboratory [facility] Upper Extremity Venous Duplex Unilateral - Right [...] MD Final See Link below for Image [facility] CARDIOLOGY [facility] CNOVon 12-24-2023 CNOV Normal [facility] US SOFT TISSUE Moe 2023 US SOFT [...] Date: 12/21/2023 4:09:56 PM Ordering Provider: JACK PRIEST [facility] ([place]) Pelvison 12-14-2023 [facility] Pelvison 12-13-2023 Radiology Study observation (narrative) [facility] Stomach Views for gastric emptying solid phase W radionuclide Brittney 12-07-2023 IMPRESSION: NORMAL RATE OF GASTRIC EMPTYING OF A SOLID MEAL. 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: WILL Transcribe Date/Time: Dec 07 2023 12:50P Dictated by : KYLE WEBER MD This examination was interpreted and the report reviewed and electronically signed by: KYLE WEBER MD on Dec 07 2023 12:51PM [facility] DIVISION OF RADIOLOGY * * *Final Report* * * DATE OF EXAM: Dec 07 2023 11:56AM SOUMYA [address] [facility] GASTRIC EMPTYING SOLID / PROCEDURE [...] (normal range, 0-10%). DIVISION OF RADIOLOGY Provider, [facility] Mimi moore [place] - 12/07/2023 * * *Final Report* * * DATE OF EXAM: Dec 07 2023 11:56AM [facility] / PROCEDURE REASON: Nausea [...] OF GASTRIC EMPTYING OF A SOLID MEAL. 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: [facility] Transcribe Date/Time: Dec 07 2023 12:50P Dictated by : KYLE WEBER MD This examination was interpreted and the report reviewed and electronically signed by: KYLE WEBER MD on Dec 07 2023 12:51PM [facility] Radiology Study observation (narrative) [facility] Stomach Views for gastric emptying solid phase W radionuclide POOrdered By: Ccf Provider on 12-07-2023 [facility] UA DIP,URINE HCG (POC)on Beta HCG ( test) Ql (U) Negative Negative [facility] Comment on above: Location:[facility], [address], [place], [address] Advertising Job Titles (POCT) Internal QC [facility] Location:[facility], [address], [place], [address] [facility] POINT OF CARE [facility] US ABDOMEN COMPLETEon 2023 US ABDOMEN COMPLETE [...] Date: 12/03/2023 3:53:26 PM Ordering Provider: JACK Terry [facility]) ANAon 11-16-2023 Nuclear Ab IF (S) [Titer] 40 {titer} Normal Neg 40 [facility]) Comment on above: Result Comment: JESSIE Screen and Titer methodology is an immunofluorescent technique utilizing Hep2 Substrate. Performed By: #### L IPID, VIDH, FES, A1C, CMP, ANEU, FERR, CBC, ESR, FT4, GFR, ADIFF, JULIA, TSH, LIP, CRP ####[facility] [place], [place] [address]#### FOL, B12, JESSIE ####[address] [address] .Auto Diffon 11-15-2023 Basophil, Absolute 0.0 10 3/mcL Normal 0.0-0.2 [facility]) Comment on above: Performed By: #### L IPID, VIDH, FES, A1C, CMP, ANEU, FERR, CBC, ESR, FT4, GFR, ADIFF, JULIA, TSH, LIP, CRP ####[place] [address] [address]#### FOL, B12, JESSIE ####[address] [address] Basophils/100 WBC (Bld) 0.4 % Normal 0.0-2.5 [facility] ([place]) Comment on above: Performed By: #### L IPID, VIDH, FES, A1C, CMP, ANEU, FERR, CBC, ESR, FT4, GFR, ADIFF, JULIA, TSH, LIP, CRP ####[place] [address] [address]#### FOL, B12, JESSIE ####[address] [address] Eosinophil, Absolute 0.1 10 3/mcL Normal 0.0-0.4 [facility] ([place]) Comment on above: Performed By: #### L IPID, VIDH, FES, A1C, CMP, ANEU, FERR, CBC, ESR, FT4, GFR, ADIFF, JULIA, TSH, LIP, CRP ####[place] [address] [id number]#### FOL, B12, JESSIE ####[address] [address] Eosinophils/100 WBC (Bld) 1.6 % Normal 0.0-7.0 [facility] ([place]) Comment on above: Performed By: #### L IPID, VIDH, FES, A1C, CMP, ANEU, FERR, CBC, ESR, FT4, GFR, ADIFF, JULIA, TSH, LIP, CRP ####[place] [address]#### FOL, B12, JESSIE ####[address] [address] Lymphocyte, Absolute 2.1 10 3/mcL Normal 0.8-3.9 [facility] ([place]) Comment on above: Performed By: #### L IPID, VIDH, FES, A1C, CMP, ANEU, FERR, CBC, ESR, FT4, GFR, ADIFF, JULIA, TSH, LIP, CRP ####[address] [address]#### FOL, B12, JESSIE ####[address] [address] Lymphocytes/100 WBC (Bld) 29.5 % Normal 10.0-50.0 [facility] ([place]) Comment on above: Performed By: #### L IPID, VIDH, FES, A1C, CMP, ANEU, FERR, CBC, ESR, FT4, GFR, ADIFF, JULIA, TSH, LIP, CRP ####[place] [id number]#### FOL, B12, JESSIE ####[address] [address] Monocyte, Absolute 0.5 10 3/mcL Normal 0.2-1.0 [facility] ([place]) Comment on above: Performed By: #### L IPID, VIDH, FES, A1C, CMP, ANEU, FERR, CBC, ESR, FT4, GFR, ADIFF, JULIA, TSH, LIP, CRP ####[place] [id number]#### FOL, B12, JESSIE ####[address] [address] Monocytes/100 WBC (Bld) 6.8 % Normal 1.7-13.0 [facility] ([place]) Comment on above: Performed By: #### L IPID, VIDH, FES, A1C, CMP, ANEU, FERR, CBC, ESR, FT4, GFR, ADIFF, JULIA, TSH, LIP, CRP ####[address] [address]#### FOL, B12, JESSIE ####[address] [address] Neutrophils/100 WBC (Bld) 61.7 % Normal 37.0-80.0 [facility] ([place]) Comment on above: Performed By: #### L IPID, VIDH, FES, A1C, CMP, ANEU, FERR, CBC, ESR, FT4, GFR, ADIFF, JULIA, TSH, LIP, CRP ####[address] [place], [place] [address]#### FOL, B12, JESSIE ####[place] [address] .GFRon 11-15-2023 GFR 123 ml/min/1.73sqm Normal [facility] ([place]) Comment on above: Result Comment: GFR Population [...] FT4, GFR, ADIFF, JULIA, TSH, LIP, CRP ####[place] [address] [place], [place] [address]#### FOL, B12, JESSIE ####[place] [address] GFR Non- 101 ml/min/1.73sqm Normal [facility] ([place]) Comment on above: Result Comment: GFR Population [...] FT4, GFR, ADIFF, JULIA, TSH, LIP, CRP ####[place] [address]#### FOL, B12, JESSIE ####[place] [address] .NEUABSon 11-15-2023 Neutrophil, Absolute 4.4 10 3/mcL Normal 2.9-6.2 [facility] ([place]) Comment on above: Performed By: #### L IPID, VIDH, FES, A1C, CMP, ANEU, FERR, CBC, ESR, FT4, GFR, ADIFF, JULIA, TSH, LIP, CRP ####[place] [address]#### FOL, B12, JESSIE ####[place] [address] A1Con 11-15-2023 HbA1c (Bld) [Mass fraction] 5.8 % Normal 4.3-6.4 [facility] ([place]) Comment on above: Performed By: #### L IPID, VIDH, FES, A1C, CMP, ANEU, FERR, CBC, ESR, FT4, GFR, ADIFF, JULIA, TSH, LIP, CRP ####[place] [address]#### FOL, B12, JESSIE ####[place] [address] AMYon 11-15-2023 Amylase [Catalytic activity/Vol] 29 U/L Normal 25-115 [facility] ([place]) Comment on above: Performed By: #### L IPID, VIDH, FES, A1C, CMP, ANEU, FERR, CBC, ESR, FT4, GFR, ADIFF, JULIA, TSH, LIP, CRP ####[place] [address]#### FOL, B12, JESSIE ####[place] [address] B12on 11-15-2023 Cobalamin (Vitamin B12) [Mass/Vol] 362 pg/mL Normal 211-911 [facility] ([place]) Comment on above: Performed By: #### L IPID, VIDH, FES, A1C, CMP, ANEU, FERR, CBC, ESR, FT4, GFR, ADIFF, JULIA, TSH, LIP, CRP ####[place] [address]#### FOL, B12, JESSIE ####[place] [address] CBCon 11-15-2023 Erythrocyte distribution width (RBC) [Ratio] 12.8 % Normal 11.5-14.5 [facility] ([place]) Comment on above: Performed By: #### L IPID, VIDH, FES, A1C, CMP, ANEU, FERR, CBC, ESR, FT4, GFR, ADIFF, JULIA, TSH, LIP, CRP ####[place] [address]#### FOL, B12, JESSIE ####[place] [address] Hematocrit (Bld) [Volume fraction] 38.7 % Normal 37.0-47.0 [facility] ([place]) Comment on above: Performed By: #### L IPID, VIDH, FES, A1C, CMP, ANEU, FERR, CBC, ESR, FT4, GFR, ADIFF, JULIA, TSH, LIP, CRP ####[place] [address]#### FOL, B12, JESSIE ####[place] [address] Hgb 13.1 G/dL Normal 12.0-16.0 [facility] ([place]) Comment on above: Performed By: #### L IPID, VIDH, FES, A1C, CMP, ANEU, FERR, CBC, ESR, FT4, GFR, ADIFF, JULIA, TSH, LIP, CRP ####[place] [address]#### FOL, B12, JESSIE ####[address] [address] MCH (RBC) [Entitic mass] 30.1 pg Normal 27.0-31.2 [facility] ([place]) Comment on above: Performed By: #### L IPID, VIDH, FES, A1C, CMP, ANEU, FERR, CBC, ESR, FT4, GFR, ADIFF, JULIA, TSH, LIP, CRP ####[place] [id number]#### FOL, B12, JESSIE ####[address] [address] MCHC 33.9 G/dL Normal 33.0-37.0 [facility] ([place]) Comment on above: Performed By: #### L IPID, VIDH, FES, A1C, CMP, ANEU, FERR, CBC, ESR, FT4, GFR, ADIFF, JULIA, TSH, LIP, CRP ####[place] [id number]#### FOL, B12, JESSIE ####[address] [address] MCV (RBC) [Entitic vol] 88.8 fL Normal 80.0-94.0 [facility] ([place]) Comment on above: Performed By: #### L IPID, VIDH, FES, A1C, CMP, ANEU, FERR, CBC, ESR, FT4, GFR, ADIFF, JULIA, TSH, LIP, CRP ####[place] [id number]#### FOL, B12, JESSIE ####[address] [address] Platelet 253 10 3/mcL Normal 130-400 [facility] ([place]) Comment on above: Performed By: #### L IPID, VIDH, FES, A1C, CMP, ANEU, FERR, CBC, ESR, FT4, GFR, ADIFF, JULIA, TSH, LIP, CRP ####[place] [id number]#### FOL, B12, JESSIE ####[place] [address] Platelet mean volume (Bld) [Entitic vol] 9.1 fL Normal 7.4-10.4 [facility] ([place]) Comment on above: Performed By: #### L IPID, VIDH, FES, A1C, CMP, ANEU, FERR, CBC, ESR, FT4, GFR, ADIFF, JULIA, TSH, LIP, CRP ####[place] [address] [place] [address]#### FOL, B12, JESSIE ####[place] [address] RBC 4.36 10 6/mcL Normal 4.20-5.40 [facility] ([place]) Comment on above: Performed By: #### L IPID, VIDH, FES, A1C, CMP, ANEU, FERR, CBC, ESR, FT4, GFR, ADIFF, JULIA, TSH, LIP, CRP ####[place] [address]#### FOL, B12, JESSIE ####[place] [address] WBC 7.1 10 3/mcL Normal 4.6-10.8 [facility] ([place]) Comment on above: Performed By: #### L IPID, VIDH, FES, A1C, CMP, ANEU, FERR, CBC, ESR, FT4, GFR, ADIFF, JULIA, TSH, LIP, CRP ####[place] [address]#### FOL, B12, JESSIE ####[place] [address] CMPon 11-15-2023 Albumin Level 3.5 G/dL Normal 3.5-5.0 [facility] ([place]) Comment on above: Performed By: #### L IPID, VIDH, FES, A1C, CMP, ANEU, FERR, CBC, ESR, FT4, GFR, ADIFF, JULIA, TSH, LIP, CRP ####[place] [address] [place] [id number]#### FOL, B12, JESSIE ####[place] [address] Albumin/Globulin [Mass ratio] 1.0 {ratio} Low 1.1-2.5 [facility] ([place]) Comment on above: Performed By: #### L IPID, VIDH, FES, A1C, CMP, ANEU, FERR, CBC, ESR, FT4, GFR, ADIFF, JULIA, TSH, LIP, CRP ####[place] [address]#### FOL, B12, JESSIE ####[address] [address] ALP [Catalytic activity/Vol] 80 U/L Normal 40-135 [facility] ([place]) Comment on above: Performed By: #### L IPID, VIDH, FES, A1C, CMP, ANEU, FERR, CBC, ESR, FT4, GFR, ADIFF, JULIA, TSH, LIP, CRP ####[place] [address]#### FOL, B12, JESSIE ####[place] [address] ALT [Catalytic activity/Vol] 23 U/L Normal 14-59 [facility] ([place]) Comment on above: Performed By: #### L IPID, VIDH, FES, A1C, CMP, ANEU, FERR, CBC, ESR, FT4, GFR, ADIFF, JULIA, TSH, LIP, CRP ####[place] [address]#### FOL, B12, JESSIE ####[place] [address] AST [Catalytic activity/Vol] 13 U/L Normal 10-40 [facility] ([place]) Comment on above: Performed By: #### L IPID, VIDH, FES, A1C, CMP, ANEU, FERR, CBC, ESR, FT4, GFR, ADIFF, JULIA, TSH, LIP, CRP ####[place] [address]#### FOL, B12, JESSIE ####[place] [address] Bili Total 0.2 mg/dL Normal 0.2-1.0 [facility] ([place]) Comment on above: Result Comment: Use of this assay is not recommended for patients undergoing treatment with eltrombopag due to the potential for falsely elevated results. Performed By: #### L IPID, VIDH, FES, A1C, CMP, ANEU, FERR, CBC, ESR, FT4, GFR, ADIFF, JULIA, TSH, LIP, CRP ####[place] [address] [place] [id number]#### FOL, B12, JESSIE ####[address] [address] BUN/Creatinine Ratio 21 ratio Normal 7-27 [facility] ([place]) Comment on above: Performed By: #### L IPID, VIDH, FES, A1C, CMP, ANEU, FERR, CBC, ESR, FT4, GFR, ADIFF, JULIA, TSH, LIP, CRP ####[place] [id number]#### FOL, B12, JESSIE ####[address] [address] Calcium [Mass/Vol] 8.6 mg/dL Normal 8.4-10.2 [facility] ([place]) Comment on above: Performed By: #### L IPID, VIDH, FES, A1C, CMP, ANEU, FERR, CBC, ESR, FT4, GFR, ADIFF, JULIA, TSH, LIP, CRP ####[place] [id number]#### FOL, B12, JESSIE ####[address] [address] Chloride [Moles/Vol] 101 mmol/L Normal 98-107 [facility] ([place]) Comment on above: Performed By: #### L IPID, VIDH, FES, A1C, CMP, ANEU, FERR, CBC, ESR, FT4, GFR, ADIFF, JULIA, TSH, LIP, CRP ####[address] [address]#### FOL, B12, JESSIE ####[address] [address] CO2 [Moles/Vol] 30 mmol/L High 22-29 [facility] ([place]) Comment on above: Performed By: #### L IPID, VIDH, FES, A1C, CMP, ANEU, FERR, CBC, ESR, FT4, GFR, ADIFF, JULIA, TSH, LIP, CRP ####[place] [address]#### FOL, B12, JESSIE ####[place] [address] Creatinine [Mass/Vol] 0.71 mg/dL Normal 0.55-1.02 [facility] ([place]) Comment on above: Performed By: #### L IPID, VIDH, FES, A1C, CMP, ANEU, FERR, CBC, ESR, FT4, GFR, ADIFF, JULIA, TSH, LIP, CRP ####[place] [address]#### FOL, B12, JESSIE ####[place] [address] Electrolyte Balance 7.0 mEq/L Normal 4.0-15.0 [facility] ([place]) Comment on above: Performed By: #### L IPID, VIDH, FES, A1C, CMP, ANEU, FERR, CBC, ESR, FT4, GFR, ADIFF, JULIA, TSH, LIP, CRP ####[place] [address]#### FOL, B12, JESSIE ####[place] [address] Globulin 3.5 G/dL Normal [facility] ([place]) Comment on above: Performed By: #### L IPID, VIDH, FES, A1C, CMP, ANEU, FERR, CBC, ESR, FT4, GFR, ADIFF, JULIA, TSH, LIP, CRP ####[place] [address]#### FOL, B12, JESSIE ####[place] [address] Glucose [Mass/Vol] 97 mg/dL Normal 70-105 [facility] ([place]) Comment on above: Performed By: #### L IPID, VIDH, FES, A1C, CMP, ANEU, FERR, CBC, ESR, FT4, GFR, ADIFF, JULIA, TSH, LIP, CRP ####[place] [id number] [place], [place] [address]#### FOL, B12, JESSIE ####[address] [address] Potassium [Moles/Vol] 4.1 mmol/L Normal 3.5-5.1 [facility] ([place]) Comment on above: Performed By: #### L IPID, VIDH, FES, A1C, CMP, ANEU, FERR, CBC, ESR, FT4, GFR, ADIFF, JULIA, TSH, LIP, CRP ####[place] [id number] [address]#### FOL, B12, JESSIE ####[place] [address] Sodium [Moles/Vol] 138 mmol/L Normal 136-145 [facility] ([place]) Comment on above: Performed By: #### L IPID, VIDH, FES, A1C, CMP, ANEU, FERR, CBC, ESR, FT4, GFR, ADIFF, JULIA, TSH, LIP, CRP ####[place] [id number]#### FOL, B12, JESSIE ####[address] [address] Total Protein 7.0 G/dL Normal 6.4-8.2 [facility] ([place]) Comment on above: Performed By: #### L IPID, VIDH, FES, A1C, CMP, ANEU, FERR, CBC, ESR, FT4, GFR, ADIFF, JULIA, TSH, LIP, CRP ####[place] [address]#### FOL, B12, JESSIE ####[address] [address] Urea nitrogen [Mass/Vol] 15 mg/dL Normal 7-18 [facility] ([place]) Comment on above: Performed By: #### L IPID, VIDH, FES, A1C, CMP, ANEU, FERR, CBC, ESR, FT4, GFR, ADIFF, JULIA, TSH, LIP, CRP ####[place] [address]#### FOL, B12, JESSIE ####[place] [address] CRPon 11-15-2023 C-Reactive Protein 0.9 mg/dL High 0.0-0.3 [facility] ([place]) Comment on above: Performed By: #### L IPID, VIDH, FES, A1C, CMP, ANEU, FERR, CBC, ESR, FT4, GFR, ADIFF, JULIA, TSH, LIP, CRP ####[place] [address]#### FOL, B12, JESSIE ####[place] [address] ESRon 11-15-2023 Erythrocyte Sed Rate 26 mm/hr High 0-20 [facility] ([place]) Comment on above: Performed By: #### L IPID, VIDH, FES, A1C, CMP, ANEU, FERR, CBC, ESR, FT4, GFR, ADIFF, JULIA, TSH, LIP, CRP ####[place] [address]#### FOL, B12, JESSIE ####[place] [address] Dion 11-15-2023 Ferritin [Mass/Vol] 45.0 ng/mL Normal 8.0-252.0 [facility] ([place]) Comment on above: Performed By: #### L IPID, VIDH, FES, A1C, CMP, ANEU, FERR, CBC, ESR, FT4, GFR, ADIFF, JULIA, TSH, LIP, CRP ####[place] [address]#### FOL, B12, JESSIE ####[place] [address] FESon 11-15-2023 Iron [Mass/Vol] 63 ug/dL Normal 50-170 [facility] ([place]) Comment on above: Performed By: #### L IPID, VIDH, FES, A1C, CMP, ANEU, FERR, CBC, ESR, FT4, GFR, ADIFF, JULIA, TSH, LIP, CRP ####[address] [address]#### FOL, B12, JESSIE ####[place] [address] Iron Sat 18 % Normal [facility] ([place]) Comment on above: Performed By: #### L IPID, VIDH, FES, A1C, CMP, ANEU, FERR, CBC, ESR, FT4, GFR, ADIFF, JULIA, TSH, LIP, CRP ####[place] [address]#### FOL, B12, JESSIE ####[place] [address] TIBC 360 mcg/dL Normal 250-450 [facility] ([place]) Comment on above: Performed By: #### L IPID, VIDH, FES, A1C, CMP, ANEU, FERR, CBC, ESR, FT4, GFR, ADIFF, JULIA, TSH, LIP, CRP ####[place] [address]#### FOL, B12, JESSIE ####[place] [address] FOLon 11-15-2023 Folate 13.29 ng/mL Normal 5.38-24.00 [facility] ([place]) Comment on above: Performed By: #### L IPID, VIDH, FES, A1C, CMP, ANEU, FERR, CBC, ESR, FT4, GFR, ADIFF, JULIA, TSH, LIP, CRP ####[place] [address]#### FOL, B12, JESSIE ####[place] [address] FT4on 11-15-2023 Free T4 [Mass/Vol] 0.88 ng/dL Normal 0.76-1.46 [facility] ([place]) Comment on above: Performed By: #### L IPID, VIDH, FES, A1C, CMP, ANEU, FERR, CBC, ESR, FT4, GFR, ADIFF, JULIA, TSH, LIP, CRP ####[place] [id number]#### FOL, B12, JESSIE ####[address] [address] LIPon 11-15-2023 Lipase Level 23 U/L Normal 16-77 [facility] ([place]) Comment on above: Performed By: #### L IPID, VIDH, FES, A1C, CMP, ANEU, FERR, CBC, ESR, FT4, GFR, ADIFF, JULIA, TSH, LIP, CRP ####[place] [address]#### FOL, B12, JESSIE ####[address] [address] LIPIDon 11-15-2023 Cholesterol [Mass/Vol] 219 mg/dL High 0-200 [facility] ([place]) Comment on above: Result Comment: Chol esterol Reference Interval: Less than 200 Desirable 200-239 Borderline high risk 240 and above High risk Performed By: #### L IPID, VIDH, FES, A1C, CMP, ANEU, FERR, CBC, ESR, FT4, GFR, ADIFF, JULIA, TSH, LIP, CRP ####[place] [address]#### FOL, B12, JESSIE ####[address] [address] Cholesterol in HDL [Mass/Vol] 47 mg/dL Normal 40-60 [facility] ([place]) Comment on above: Performed By: #### L IPID, VIDH, FES, A1C, CMP, ANEU, FERR, CBC, ESR, FT4, GFR, ADIFF, JULIA, TSH, LIP, CRP ####[place] [id number]#### FOL, B12, JESSIE ####[address] [address] Cholesterol in LDL [Mass/Vol] 130 mg/dL Normal 0-130 [facility] ([place]) Comment on above: Performed By: #### L IPID, VIDH, FES, A1C, CMP, ANEU, FERR, CBC, ESR, FT4, GFR, ADIFF, JULIA, TSH, LIP, CRP ####[place] [address]#### STEFANO, B12, JESSIE ####[place] [address] Triglyceride [Mass/Vol] 208 mg/dL High 0-150 [facility] ([place]) Comment on above: Result Comment: Trig lyceride Reference Interval: Less than 150 Normal 150-199 Borderline high risk 200-499 High risk 500 or higher Very high risk Performed By: #### L IPID, VIDH, FES, A1C, CMP, ANEU, FERR, CBC, ESR, FT4, GFR, ADIFF, JULIA, TSH, LIP, CRP ####[place] [address]#### STEFANO, B12, JESSIE ####[address] 11-15-2023 TSH Qn 2.85 m[IU]/L Normal 0.36-3.74 [facility] ([place]) Comment on above: Performed By: #### L IPID, VIDH, FES, A1C, CMP, ANEU, FERR, CBC, ESR, FT4, GFR, ADIFF, JULIA, TSH, LIP, CRP ####[place] [address]#### STEFANO, B12, JESSIE ####[place] [address] VIDHon 11-15-2023 Vit. D 25-Hydroxy 11.2 ng/mL Normal [facility] ([place]) Comment on above: Result Comment: Inte rpretive Values Based on Total 25(OH) Vitamin D: Deficient <20 ng/mL Insufficient 20 - <30 ng/mL Sufficient 30-100 ng/mL Performed By: #### L IPID, VIDH, FES, A1C, CMP, ANEU, FERR, CBC, ESR, FT4, GFR, ADIFF, UJLIA, TSH, LIP, CRP ####[place] [address] [place] [address]#### FOL, B12, JESSIE ####[place] [address] XR Pelvis and Hip - right AP and Lateral frogon 11-05-2023 IMPRESSION: NORMAL APPEARANCE OF THE PELVIS AND RIGHT HIP 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: WILL Transcribe Date/Time: Nov 05 2023 4:41P Dictated by : DA SCHMIDT MD This examination was interpreted and the report reviewed and electronically signed by: DA SCHMIDT MD on Nov 05 2023 4:42PM [facility] DIVISION OF RADIOLOGY * * *Final [...] joints are unremarkable. DIVISION OF RADIOLOGY Provider, [facility] - 11/05/2023 * * *Final Report* * [...] APPEARANCE OF THE PELVIS AND RIGHT HIP 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: ADALB Transcribe Date/Time: Nov 05 2023 4:41P Dictated by : DA SCHMIDT MD This examination was interpreted and the report reviewed and electronically signed by: DA SCHMIDT MD on Nov 05 2023 4:42PM EST [facility] Radiology Study observation (narrative) [facility] XR Pelvis and Hip - right AP and Lateral frogOrdered By: Ccf Provider on 11-05-2023 [facility] Account Strategist Cytology Reporton 2023 Account Strategist Cytology Report . Pathology Reports Accession: Collected Date/Time: Received Date/Time: Pathologist: [id number] 10/29/2023 17:02 EDT 10/31/2023 18:00 EDT MD ADAM CHAVES Account Strategist Cytology Report SPECIMEN: Specimen Description: Liquid Prep Reflex ASCUS+ Specimen: Cervical/Endocervical Screening or Diagnostic: Screening RELEVANT HISTORY: LMP: unknown SPECIMEN ADEQUACY: SATISFACTORY FOR EVALUATION Endocervical/Transformati onal zone component present INTERPRETATION/RESULTS: NEGATIVE FOR INTRAEPITHELIAL LESION OR MALIGNANCY SUGGESTIONS/EDUCATIONAL NOTES: This case has been reviewed for 10% QA rescreen COMMENT: This Pap Test was successfully processed and evaluated with the assistance of the Art of the Dream[employer] Test Imaging System. Electronically Signed by Pathology report verified by [facility] Screened by: MARIANA RM Electronically signed by ADAM CHAVES MD Sign-Out Date: 11/02/2023 16:07 Performing Lab: [facility], [address] [place] [address] Pathology Dept Disclaimer The Pap test is a screening test for cervical cancer. As evidenced by published data, it is subject to both inherent false negative and false positive results. Your patient's results should be interpreted in context with pertinent clinical history including gynecological examination. Normal [facility] ([place]) No Panel InformationOrdered By: Ricardo Lopez on 10-29-2023 Affirm Pathogens DNA Direct Probe Trichomonas vaginalis DNA Probe Negative Gardnerella vaginalis DNA Probe Negative Maria Elena species DNA Probe Negative [facility] Absolute lymphocyte countOrd ered By: Shahzad Dsouza on 09-21-2023 Lymphocytes Auto (Unsp spec) [#/Vol] 3.06 10*3/uL 0.83-4.51 [facility] Automated lymphocyte count a s percentage of total leukocytesOrdered By: Shahzad Dsouza on 09-21-2023 Lymphocytes/100 WBC Auto (Unsp spec) 36.0 % 19-41 [facility] Basophil percentageOrdered B y: Shahzad Dsouza on 09-21-2023 Basophils/100 WBC (Bld) 0.5 % 0-1 [facility] Bilirubin [Mass/Vol] 0.10 mg/dL 0.20-1.00 [facility] Comment on above: For patients on eltr ombopag therapy, use of [facility] [place] TBIL is not recommended. Chloride [Moles/Vol] 108 mmol/L 98-107 [facility] Eosinophils/100 WBC (Bld) 1.3 % 0-5 [facility] Glucose [Mass/Vol] 117 mg/dL 74-106 [facility] Comment on above: Fasting Glucose resu lt from 100 to 125 mg/dL suggests IMPAIRED HOMEOSTASIS per A.D.A. criteria. Hemoglobin (Bld) [Mass/Vol] 11.8 g/dL 12.0-15.0 [facility] Monocytes/100 WBC (Bld) 7.3 % 0-10 [facility] Neutrophils (Bld) [#/Vol] 4.7 10*3/uL 2.0-7.7 [facility] Neutrophils/100 WBC (Bld) 54.8 % 47-70 [facility] Potassium [Moles/Vol] 3.7 mmol/L 3.5-5.1 [facility] Protein [Mass/Vol] 7.1 g/dL 6.4-8.2 [facility] Sodium [Moles/Vol] 141 mmol/L 136-145 [facility] WBC (Bld) [#/Vol] 8.5 10*3/uL 4.4-11.0 [facility] Determination of erythrocyte mean corpuscular volume (MCV)Ordered By: Shahzad Dsouza on 09-21-2023 MCV (RBC) [Entitic vol] 90.1 fL 81-99 [facility] Erythrocyte distribution wid th ratioOrdered By: Shahzad Dsouza on 09-21-2023 Erythrocyte distribution width (RBC) [Ratio] 12.2 % 11.6-14.6 [facility] Erythrocyte distribution wid th standard deviationOrdered By: Shahzad Dsouza on 09-21-2023 Erythrocyte distribution width (RBC) [Entitic vol] 39.7 fL 35.1-43.9 [facility] Hematocrit Auto (Bld) [Volum e fraction]Ordered By: Shahzad Dsouza on 09-21-2023 Hematocrit (Bld) [Volume fraction] 37.2 % 37-47 [facility] Immature granulocytes/100 WB C Auto (Bld)Ordered By: Shahzad Dsouza on 09-21-2023 Immature granulocytes/100 WBC (Bld) 0.100 % 0.0-0.9 [facility] Comment on above: IG% - Immature Granu locytes (promyelocytes, myelocytes and metamyelocytes) > 1% indicates that a LEFT SHIFT is Present. Laboratory - Chemistry and C hemistry - challengeOrdered By: Shahzad Dsouza on 09-21-2023 Albumin/Globulin [Mass ratio] 0.9 {ratio} 0.9-2.4 [facility] ALP [Catalytic activity/Vol] 77 U/L 45-117 [facility] ALT [Catalytic activity/Vol] 21 U/L 13-56 [facility] CO2 [Moles/Vol] 27.0 mmol/L 21.0-32.0 [facility] Globulin (S) [Mass/Vol] 3.7 g/dL 2.2-4.2 [facility] Lipase [Catalytic activity/Vol] 29 U/L 13-75 [facility] Comment on above: Please note:LIPASE r evised reference range effective 22. New Lipase methodology. Expected to produce lower values than the previous assay method. NEW Reference Range: 13 - 75 U/L Urea nitrogen/Creatinine [Mass ratio] 22.4 mg/mg 10-20 [facility] Laboratory - Hematology and Cell countsOrdered By: Shahzad Dsouza on 09-21-2023 MCH (RBC) [Entitic mass] 28.6 pg 27.0-32.0 [facility] MCHC (RBC) [Mass/Vol] 31.7 g/dL 32-36 [facility] Nucleated RBC/100 WBC (Bld) [Ratio] 0 % 0-5 [facility] Platelet mean volume (Bld) [Entitic vol] 10.4 fL 6.2-12.0 [facility] Platelets (Bld) [#/Vol] 295 10*3/uL 150-450 [facility] No Panel InformationOrdered By: Shahzad Dsouza on 09-21-2023 Estimated Creatinine Clearance Calc 142.74 ml/min [facility] Estimated GFR (MDRD) Amer 129 mL/min >60 [facility] Comment on above: GFR Calc Estimated GFR (MDRD) Non-Af Amer 107 mL/min >60 [facility] Comment on above: Non- GFR Calc RBC Auto (Bld) [#/Vol]Ordere d By: Shahzad Dsouza on 09-21-2023 RBC (Bld) [#/Vol] 4.13 10*6/uL 4.2-5.4 [facility] Serum or plasma calcium carole urement (mass/volume)Ordered By: Shahzad Dsouza on 09-21-2023 Calcium [Mass/Vol] 9.0 mg/dL 8.5-10.1 [facility] Serum or plasma choriogonado tropin detectionOrdered By: Shahzad Dsouza on 09-21-2023 HCG ( test) Ql Negative [facility] Serum or plasma creatinine m easurement (mass/volume)Ordered By: Shahzad Dsouza on 09-21-2023 Creatinine [Mass/Vol] 0.71 mg/dL 0.55-1.02 [facility] Comment on above: The validity of the calculated GFR & GFRAA in patients over 70 years has not been determined. Clinical correlation is essential. Serum or plasma urea nitroge n measurement (mass/volume)Ordered By: Shahzad Dsouza on 09-21-2023 Urea nitrogen [Mass/Vol] 16 mg/dL 7-18 [facility] Thin prep Papanicolaou smear with manual screeningOrdered By: Shahzad Dsouza on 09-21-2023 Thin prep Papanicolaou smear with manual screening 3.4 g/dL 3.2-5.0 [facility] Thin prep Papanicolaou smear with manual screening 16 U/L 15-37 [facility] Thin prep Papanicolaou smear with manual screening 6 5-15 [facility] SURGICAL PATHOLOGYOrdered By : Roberto Esqueda on 09-17-2023 Case Report Surgical Pathology R eport Case: [id number] Authorizing Provider: Prakash Holland MD Collected: 09/14/2023 07:23 AM Ordering Location: Ambulatory Surgery Received: 09/14/2023 08:03 PM Pathologist: Roberto Esqueda MD, PhD Specimens: A) - Small Bowel, Duodenum, Biopsy, r/o celiac B) - Stomach, Biopsy, r/o H-pylori C) - Esophagogastric Junction, Biopsy, r/o barrets D) - Esophagus, Distal, Biopsy E) - Esophagus, Proximal, Biopsy [facility] Work Phone: FINAL DIAGNOSIS f5zyvRNbNWEssROiCBBz NVxhb eYsUJLxwSIfD0AseglsQEqkWG 0hJO3xoKbxmUAjrOXoPRGuMoS cx9wch356uPSam7ncLXYAqbng bHz9iUwvY12zq8J0GtwvF74iw LEcLTU9ATMjDYCxjKOlIWTbOC B1BOQmfVVaW7fhUQMdNJ2xqbn tKNcgXScpTGBjxDZ1CZUycIWa G1RsUSWaBLpwPXBxugv1VwGhL k5reNXtzGdkVQjeJHXwUGFuOB vqRUGfYtPcGH7nSNRdFHPrtI8 mBSBkl6SnnZkusUKcCN6kPLBj OZHwBJrxwKBwo2EaEXtvpGpgi f7pZSttD34nh7UuPoOgOw4are 0tgEd9dB3lpLJhMEPlfmQCBiR JuL3nSYMqKOBibN0qq5o6FWTj hmWxOVxvg5QvaTHgFQ40bgMyO Y02X26jRQU8cGAmNGWcSTZ3nA DtVSrgm0Egc8VckNq9RhdqARV dCZOYmpDfejhzKN9lIZJhLrJY KtXaaTkyltszbYyovb7jqllup siicREzv67bBDAKQHMmV0Tjp0 5fAprzXFDdnZUtMHTcZYEfe7N xLYsdS4WtvRGjLkJezX5fdAdz rktdRzwszQT4HxfbJXWxQXAJS SYuxDa4GPWmoGTtwX85ysJwhK Frc9JxKNQjnvbxYEDqWI0gFFU gsVfhE7GlMKBzpTI0SYcnLWBl c9XbdNmimAZoZT4yE0Q0LU6sh ZHnxPXgv6GiDPotjGlhur4bAR xqZ90kl4VbKvUbUm4ylt0eoMd 4wK8umFXjLUPxfpYOXtBEi25q iYYjuSTbIQBbn7lehZCjUEYgg U2zj7z9MCHyizJpFQRkkEMqg2 DtYU73G80hBDJ2kHErNL7eMKM cNYuay0A6yICmXNFho8GtAVvo dHkuXHBhcn0= [facility] Work Phone: Gross Description g5dynATjFUVrgVPINFO1 MDJcY A0knJjxkRk1cTfiUQGjcuA5nZ VpGPlho8jwDCG2g2ulinCIFte pGMJpLO9gUIryWEMcQQ7lEsMw XGRlZmYxXHBhcGVydzEyMjQwX ILbtUYtcZK4EEChCQ7cmdtjXO xeWDvzPTAqedV2ONQizFNnC0R yLAYxAV6xdxmyPVD0LZLXOghk Hn6mjLBnrBdpBpLxYaGkQQVqM ZJaJALch9qelvXBxhaemGr1gQ 6HWRMlG7YyFC6Kn6uhPLDwbYO eTUO7RMzah2hdKMcyOFN8JOJr EXVnFFChMK9TPpAeJJPmJNc4F LbiJaA1IYn1AQMOCQLsMOG8Jj G5ETGkRVs1JTgdDHoxtGLcZJJ tKJPnAGIbYWkrloJ3d6hsDGYj aHHhZEG7RTbdz2tuPIacYSE3N LRnFaBxQNOdLD8DPhNmIMBgHS h0CPluEsD0CZv1VXITPiDaVlK dWIOkIyJwSTOvSZy4YJz5BMxQ CiZnLjwaHJIaJxOgOxL3DMQ6E SBcXHQgMiBcXHNzIDMgXFxmbC EuND5dtLvbKBGaGR0NQSCaJQm mETXpFtFbHR0uG85flCwgMm58 UUxoOKU7i6BavlAnCDVVcJ8yy 9xjtNTiG1ognYOuOV8VXUXjgk RyMXgvgGzmvC9weMPiT0jlJjU yMlxlcGljTmVzdERvYzEgDQpc lEMxjQInXROrKoLyVDEmV5ehN TMtVL3KIDGmRtTiWqFbUEk2EF LtyI1cYz1vhYZrwG0tVLHpYUQ 6ftMqkLMeJQNjn4NcyEShHCNc i9W9UTCcq4N5KIJyG7ouCUplj NabNkO5bzYsXgcomRTrMuWpfO DtQlInK05iCWQktFJjdUamq9Q geAc0dCCjEPqbEE4uTZWuHUZa LUV1TC1ONnnfkQncXmMahBEgQ aJ3VHAdfITySDD8IF0pwShuPD IvTQc4ELsfMJJyQ2UvN8WaDQl zZyBcXGlkIDUxMDAyIFxcZGIg V5YWMAOfEcP0ZGQ0MgHgAWu3I Gg9NJ2AMjUiRXV0UEJrBUPwSx SlDAd4HGhfBF4XMVLkSqV9NSM 0MCqyWXU6BPx8ZDimxWGuZUdk d4SoEmJfAKMoQRsmjwN5MNKhf uVbk0QjWYLvQAFtY5czLbHlJQ OQOhboxhBmDMYwOKQ8r91bT6d vPHYhy4FzmKjkGGDjWJeizZMj ZCANClxwbGFpblxsdHJjaFxmc bXzJTNdpGCHUIS0FZ0wWEITOx sdwDWbZLGbg0ByORwyyKztCEX iTyDsi9WtMWecfEazONQlLiWg DQpcZnMyMCBSZWNlaXZlZCBpb eQwe5RsAHwucjKzmaSeoTJgvV rpzXVbdYjpA0ZoDJ1bEIPbvif sr94hyGB5hHVvqYWyTTwukiRe MAPblykacE3tRH66ONvtEB3jI MyrOP5cSSPsUdZUm6IbwAg9OE T9Yr3daGGjOLOscmXqxoNkF6D ij7T6lTHzYFpsSWVsX40mu7EJ z6Hpw9xqwIdqj7WceJOxNE2ba LVcQW6Dj5rhTJPnfHQrRWJ8EV gjm6qfPXbkKXI5GIEbPiKnHNV mGN4GAdMwIZYrRQm3JDeoWeP5 WEy7WPKADlAfSdWqBMFcDtVyH kwsBFc6YXn8YAgBYnCvEzzmSA VoJtRuNhK8ASG8ZSBgAIXhNrF gSMHtTEOwIOjqePLvDC4nbFjt QMCoTCOvPYM8HDNktUIPp3IwJ VTmGGfoYyMjVoZPQwHQu05yoP Nzv7vmm9FhwVDpTVi3dbM4kB0 gXSNYnW8bj0bcpTOgVO6OUDWd lrIdFFzwhZeeuR7njQVmE9oiI nMyMlxlcGljTmVzdERvYzEgDQ yyzMXywBPnLQKuAqUoQBThK6h mApIjOZFqTsTqUPYuU6drSKYz DK8OPDKfNbGmHdNgGLh2YBToh J9iFq1mzBPtlF4tGIXiDVL9kv AznEKaHYRft0OhjGWoQOJtw3H 8KXUgn7W3EEEgR2zkWPntzJnh HaB9lmGoZoAqvRVlHhLmiGAwB iPdC76oDZWejUBqvNxda4NtvD k3oGBwANoiQP2dMFHtRHFhAZC 9BL8KEkrbiChnUcItfLJmMhB0 GCYhqKDfPSS1JJ9kiBzsCWWgX Mv5EZmvRBTvM8BeO8PjPCtsRd AhCCvuBJGiWWHgCQizSUBvE0N PEUMiUhA1ONZ1XhDjIHl5ADi7 SR9PYtVeDFG5ACLvWHX3DXNnX Vs8RCyvEF2EUBOqTdN3GQU9Hb DjDHG1CMp2OBtunUCwUJipo0J zQcYkENMhNLhozhY5QAJecrSa w3PdAZUeJDAmW9dfRlTwOJPRE exubeHzRTYiCZSuv6EuTWi0yy dgHVtdcDOwUEFNwA1rv8qwvMR nUV4LLYHupjLfPShipVvmoA5w qBElN8uoVwIgXlpmpErpFpUok ERvYzEgDQpcbHRycGFyXHNiMz ZzTDIzN6ksNuWeGIQmIsEnAQD pV8olGVCdPY5LZIXwLaXcYrUk HKd7DOZspO2eXn3xjLMidZ0kE KEgOG08nYExhLdmQZXvLLCgxb HuVnI4KZ0tHUXsEpZzlJlrj6I eOBCjO5PcN2E0qO3gSZGuMCMz LBK3ISGkFoS5EZQzUXIqmX9lM V24JVoxnRBcnNYsjJV4AQQkuI 3kt38gDDYyw5KnuJZcTv5LVEX iaBFYJJS7YL1xHXryWVDlE1Vn X1PmruR1QNDcyvZWAituIwfvn Hutw8QehUKbSIIxVMkvcFXvUP XbHOAtGXfjFyJQIvEiMoM8XOv 1Atp3QsUwHNs7JDppM0XMMXLa XBYmMrSsGtpjIrE8QFj3BNYHA m6hXYY6YcizOBj7DhPsKGY9Xy YfERu4AGBmOSpabjEaUYtpFax uFXzqH44xeKVlIOvfZbLzEXuu lPqdMNVlMLB1AL4XNVCiShAxE C0fJDZesPplN0HuIIRPix72gC 8esIyrVizmqFF5GQUaqfTAMcr wIQDyKD5WRSLuUPwpYZy6gpLd NFSvTeSqPIHpS80hi4AWj6RiO U3BTQp1ptJbfgdgQtYtJPEmhZ JDh7QcXXACPaznibLfNEHoN5O oagOlJBgfZPYjxh6ywCglWVUf IUI6a15rdCjcT4PoUQ3hBEMwl fexh45okJN1hKPuiAWvXWqhmh LeRNWmfnotyJ8uEB40PCybAN8 dAWewOK2pBXHyYzEHu6MyyEo0 XZM9Vj4yoJYgFXIzkwUfzgApR 4Uki8W2hWHyKRhbYAAaGEcxdV FyZFxsdHJwYXIgDQpccGFyIA0 CL1ZqTHPomKthQwAwKFXiEqUb NWN8BhMwHN7qoXIjAR3HZGMqc nYQHyqsn4NnVQP4SH9tjjP1uP 9sTIDnylNnch2yNHXemMLHuTX 1NVheldZcT4dfazpzMKM3GGUi RRK5I3ttNBYCfvIbSYVJyIW3D HfoigBtZR4JGOE1LPq5GDQeha VJRvwdVKMmOSNqnWEJy9QrZXP DHwjexStoMbYdwZEpSdS1MNIs jNZxYEZ5KX1qyOlaASCqP6EpR 2SpvrO7XCPkenEHAepxCBUdAW 5PPGYsZlCkRXp4 [facility] Work Phone: Performing Lab l1vszWOzJQQleDVqRnEs MDAwX SQvn8gtQGYicKMoZuHzVeNxOb SnVchheWSbGUWkToCjd0hel51 2nPMbf0wjLUVuKzA9aBScWIEo fAYvX202LVLmZJplt5qln9RbQ YVorPNux5M2FKGHatqycWx9qA aeX05cc4N3WwxoP9myATFqWTU dE9NqST1rSFKcDlr9BDI0SZZ4 KWNjAENaR4ElUZ0bDRSzdCBuM Yd9v4iakXmiNDTjULK4j8kjQC ulrqWyTR1tuy1cuNe0j6crhrR aPTUvYWNkiIMDPPDdE0YfiCfd Ov0aoIt0cUhxUbiiTLB1Aon9W G0dya71qdm5nPllFNNumcazGd C9FHdbCMVhuvvrKOq9IUxnCTW wyPQ9XBJfkWAxC5YbDKfxKI1v zkv4KNU6UIzqKXMuPoS7GZBvm SCoFUJqjUznGCevv966DGL5Ht AvAM8vL8Ync1V5cM0iiUCgOBI gjLZyBqLhGUUfrs9mkLIzLTov c0VaRLT9unF5aWEmhYDsAYJbH H44Pggzw4ShSqsgu7XwL40knQ P0HSppc7ftQA9xLoY2otTbAQw jq2ihwV0fNpU7VIraTH7zVF8d KGVjdW1djfwbLARuLqDnxzpbR GTmqMnhmzFpTl6flKlbSKA3OL wjH5oxpF0gMsK5VJwyZ5ftuI5 zNKp5JGjeoWJ1DXBjaO0wLV3m wyxzo2vfLPzbRUztAAIltdJ0l rRzVCLqiOZvS4JjhI2dVOWsFG 5mzhkxk3piQZO8GIrhXVTiPSR 6VlPlUZOwv5Aniao1WoGcv0Lu uCHkTEvlF61ak404SSDpnnAnS 1xwbGFpblxwbGFpblxmMFxmcz P4OZXqNRJvZGvhLZTdRLYyLoQ cbGFuZzEwMzNcaGljaFxmMVxk XxBtNOYvIWaoX4kjUcVaTiCpH hCNkCYvnf4hhJowGFrhxUZvlV LtrXY1rE1qKVMwcqSmwi3eUJI bnZZTeFX0IWbyaxXzW9nfherr ZDI2BHNlFOM4W8ycYIBMugPpW ZDdTBPcfBBkOPZXYIO6TTD9DI AuTZNZKBUvCER4LOH5QZSvTYV ccGFyXHBhclxwYXJkXHBsYWlu QRZiIYYaGvKooWopdO6yLpFjJ lJyAgcjWT9mMIFvZ6vuyNKlZR HkZSVdE9huPhOdbK3ikYciWMb jZjJcZnMyMlxsdHJjaCBMYWJv utB3o5T9BWctcUThoruzCBpbe uFsBEbpdrvzOTTaUOtrG1coSh UzUFSmbOwgZEnsp9KgRKJyQNV zYfRqAXifVWL5s5Y9FOeraZLr ueCXYjFWDO9waNDetnkoPF1OF lxwYXJ9 [facility] Work Phone: [facility] Work Phone: EGD Study observation [facility] 09-14-2023 [facility] Patient Name: Matt Calabrese Procedure Date: 09/14/2023 7:00 AM Date of : 2000 Admit Type: Outpatient Age: 23 Room: [place] [id number] Gender: Female Note Status: Finalized Attending MD: Prakash Holland MD, [id number] Procedure: Upper GI endoscopy Indications: Dysphagia, Heartburn, Diarrhea Providers: Prakash Holland MD Patient Profile: This is a 23 year old female. Refer to note in patient chart for documentation of history and physical. Referring Physician: Mary Parsons (pa) (Referring MD) Medicines: Monitored Anesthesia Care [...] provided to (more content not included)... [employer] [facility] Radiology Study observation (narrative) [facility] COVID & INFLUENZA A/B & RSV NAAT, ROUTINEon 08-03-2023 FLUAV RNA SHO+probe Ql (Unsp spec) Not detected Not Detected [facility] FLUBV RNA SHO+probe Ql (Unsp spec) Not detected Not Detected [facility] RSV A RNA SHO+probe Ql (Unsp spec) Not detected Not Detected [facility] SARS-CoV-2 (COVID-19) RNA SHO+probe Ql (Resp) Not detected See comment [facility] INFLUENZA A&B MOLECULAR (POC )on 08-03-2023 Flu A (POCT) Negative Negative [facility] Flu B (POCT) Negative Negative [facility] Procedural Control Valid [facility] XR Chest PA and Lateralon IMPRESSION: No definite acute radiographic abnormality. 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 DIVISION OF RADIOLOGY * * *Final [...] soft tissues: Unremarkable. DIVISION OF RADIOLOGY Provider, [facility] - 08/03/2023 * * *Final Report* * [...] IMPRESSION IMPRESSION: No definite acute radiographic abnormality. 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: [place]SC[place] Transcribe Date/Time: Aug 03 2023 11:36A Dictated by : AMADA CERRATO MD This examination was interpreted and the report reviewed and electronically signed by: AMADA CERRATO MD on Aug 03 2023 11:39AM EST [facility] Radiology Study observation (narrative) [facility] XR Chest PA and LateralOrder ed By: [facility] Provider on 08-03-2023 [facility] US PELVIS NON-OB COMPLETEon 07-13-2023 US PELVIS NON-OB COMPLETE ORIGINAL HISTORY: Irregular menstrual cycles COMPARISON: No FINDINGS: The uterus measures 8.5 cm in length. There is a 7 mm endometrial stripe. The ovaries are unremarkable in appearance, with normal blood flow. There is no free fluid. IMPRESSION: Unremarkable examination. Interpreted by: Elton Lane MD Preliminary Report By: Elton Lane MD Electronically signed By Elton Lane MD Dictated Date: 07/13/2023 1:56:24 PM Prelim Date: 07/13/2023 1:57:03 PM Sign Date: 07/13/2023 1:57:03 PM Ordering Provider: JACK PRIEST [facility] ([place]) [place] US BREAST LTD LTon 04-23 [facility] US BREAST LTD LT * * *Final Report* * * DATE OF EXAM: Apr 23 2023 2:17PM [facility]HW [id number] - [facility] US BREAST LTD LT / PROCEDURE REASON: multiple diagnoses * * * * Physician Interpretation * * * * #[id number] - [facility] US BREAST LTD LT LIMITED ULTRASOUND OF LEFT BREAST: 04/23/2023 HISTORY: Multiple Diagnoses. RESULT: Comparison is made to exam dated: 04/15/2020 CT - [facility]. Color flow ultrasound of the left breast [...] is benign. Bethel Lai M.D. bm/:04/23/2023 14:36:55 Dopster(s): Abdi Robles RT, [facility] letter sent: Normal clinical eval Ultrasound BI-RADS: [...] Health, Family Medicine, and Medical/Surgical Oncology, the [facility] has carefully reviewed the data and reached [...] their providers when to stop screening mammograms. 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: Nayeli Transcribe Date/Time: Apr 23 2023 2:11P Dictated by : BETHEL LAI MD This examination was interpreted and the report reviewed and electronically signed by: BETHEL LAI MD on Apr 23 2023 2:36PM EST [id number] Normal [facility] US BREAST LTD LEFTon 023 [facility] 04-15-2023 ALLIED HEALTH HNO ID: [id number] Author: Mary Pierce Tech Service: Radiology Author Type: Fire Sprinkler Fitter Type: Allied Health Filed: 04/15/2023 9:28 AM [...] Michael Benedict April 15, 2023 9:28 AM [facility] CT CHEST WO IVCONon 04-15-20 CT CHEST WO IVCON * * *Final Report* * * DATE OF EXAM: Apr 15 2023 9:32AM [facility] 0541 - CT CHEST WO IVCON / [...] but can be seen in granulomatous processes. Chemical Detection Expert nodules include, * 8 mm peripheral right [...] Cholecystectomy. No acute finding the upper abdomen. Music Autographer (topogram) images: No additional findings. IMPRESSION: Bilateral [...] be communicated with the ordering provider via [employer] staff message or phone message by Imaging Support Services within 2 business days of report finalization. --END OF FINDING-- 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: WILL Transcribe Date/Time: Apr 16 2023 8:40A Dictated by : AUDELIA GAINES MD This examination was interpreted and the report reviewed and electronically signed by: AUDELIA GAINES MD on Apr 16 2023 9:04AM EST [id number] ACTIONABLE Invalid Interpretation Code [facility] ALGN ANIMALS GROUPon 11-15-2 023 Chicken feather IgE Qn (S) <0.35 Normal <0.35 [facility] Comment on above: Order Comment: Speci men Type: BLOOD SPECIMEN Ordering Facility: [facility] Address: [address] [place] [address] Performed By: #### A NIMLS #### [facility] CLIA [id number] [facility] [place] [address] [place] Chicken feather IgE RAST class (S) Class 0 Normal Class 0 [facility] Comment on above: Order Comment: Speci men Type: BLOOD SPECIMEN Ordering Facility: [facility] Address: [address] [place] [address] Performed By: #### A NIMLS #### [facility] CLIA [id number] [address] [place] [address] [place] Cow epithelium IgE Qn (S) <0.35 Normal <0.35 [facility] Comment on above: Order Comment: Speci men Type: BLOOD SPECIMEN Ordering Facility: [facility] Address: [address] [place] [address] Performed By: #### A NIMLS #### [facility] CLIA [id number] [address] [place] [address] [place] Cow epithelium IgE RAST class (S) Class 0 Normal Class 0 [facility] Comment on above: Order Comment: Speci men Type: BLOOD SPECIMEN Ordering Facility: [facility] Address: [address] [place] [address] Performed By: #### A NIMLS #### [facility] CLIA [id number] [address] [place] [address] [place] Goose feather IgE Qn (S) <0.35 Normal <0.35 [facility] Comment on above: Order Comment: Speci men Type: BLOOD SPECIMEN Ordering Facility: [facility] Address: [address] [place] [address] Performed By: #### A NIMLS #### [facility] CLIA [id number] [address] [place] [address] [place] Goose feather IgE RAST class (S) Class 0 Normal Class 0 [facility] Comment on above: Order Comment: Speci men Type: BLOOD SPECIMEN Ordering Facility: [facility] Address: [address] [place] [address] Performed By: #### A NIMLS #### [facility] CLIA [id number] [address] [place] [address] [place] Horse dander IgE Qn (S) <0.35 Normal <0.35 [facility] Comment on above: Order Comment: Speci men Type: BLOOD SPECIMEN Ordering Facility: [facility] Address: [address] [place] [address] Performed By: #### A NIMLS #### [facility] CLIA [id number] [address] [place] [address] [place] Horse dander IgE RAST class (S) Class 0 Normal Class 0 [facility] Comment on above: Order Comment: Speci men Type: BLOOD SPECIMEN Ordering Facility: [facility] Address: [address] [place] [address] Performed By: #### A NIMLS #### [facility] CLIA [id number] [address] [place] [address] [place] ALGN INHALANTS GROUPon 04-04 Ugandan house dust mite IgE Qn (S) <0.35 Normal <0.35 [facility] Comment on above: Order Comment: Speci men Type: BLOOD SPECIMEN Ordering Facility: [facility] Address: [address] [place] [address] Performed By: #### I NHALE #### [facility] CLIA [id number] [address] [place] [address] [place] Ugandan house dust mite IgE RAST class (S) Class 0 Normal Class 0 [facility] Comment on above: Order Comment: Speci men Type: BLOOD SPECIMEN Ordering Facility: [facility] Address: [address] [place] [address] Performed By: #### I NHALE #### [facility] CLIA [id number] [address] [place] Boxelder IgE Qn (S) <0.35 Normal <0.35 [facility] Comment on above: Order Comment: Speci men Type: BLOOD SPECIMEN Ordering Facility: [facility] Address: [address] [place] [address] Performed By: #### I NHALE #### [facility] CLIA [id number] [address] [place] Boxelder IgE RAST class (S) Class 0 Normal Class 0 [facility] Comment on above: Order Comment: Speci men Type: BLOOD SPECIMEN Ordering Facility: [facility] Address: [address] [place] [address] Performed By: #### I NHALE #### [facility] CLIA [id number] [address] [place] Cat dander IgE Qn (S) <0.35 Normal <0.35 [facility] Comment on above: Order Comment: Speci men Type: BLOOD SPECIMEN Ordering Facility: [facility] Address: [address] [place] [address] Performed By: #### I NHALE #### [facility] CLIA [id number] [address] [place] Cat dander IgE RAST class (S) Class 0 Normal Class 0 [facility] Comment on above: Order Comment: Speci men Type: BLOOD SPECIMEN Ordering Facility: [facility] Address: [address] [place] [address] Performed By: #### I NHALE #### [facility] CLIA [id number] [address] [place] Common Ragweed IgE Qn (S) <0.35 Normal <0.35 [facility] Comment on above: Order Comment: Speci men Type: BLOOD SPECIMEN Ordering Facility: [facility] Address: [address] [place] [address] Performed By: #### I NHALE #### [facility] CLIA [id number] [address] [place] Common Ragweed IgE RAST class (S) Class 0 Normal Class 0 [facility] Comment on above: Order Comment: Speci men Type: BLOOD SPECIMEN Ordering Facility: [facility] Address: [address] [place] [address] Performed By: #### I NHALE #### [facility] CLIA [id number] [address] [place] Dog dander IgE Qn (S) <0.35 Normal <0.35 [facility] Comment on above: Order Comment: Speci men Type: BLOOD SPECIMEN Ordering Facility: [facility] Address: [address] [place] [address] Performed By: #### I NHALE #### [facility] CLIA [id number] [address] [place] Dog dander IgE RAST class (S) Class 0 Normal Class 0 [facility] Comment on above: Order Comment: Speci men Type: BLOOD SPECIMEN Ordering Facility: [facility] Address: [address] [place] [address] Performed By: #### I NHALE #### [facility] CLIA [id number] [address] [place] [address] [place] Haitian plantain IgE Qn (S) <0.35 Normal <0.35 [facility] Comment on above: Order Comment: Speci men Type: BLOOD SPECIMEN Ordering Facility: [facility] Address: [address] [place] [address] Performed By: #### I NHALE #### [facility] CLIA [id number] [address] [place] [address] [place] Haitian plantain IgE RAST class (S) Class 0 Normal Class 0 [facility] Comment on above: Order Comment: Speci men Type: BLOOD SPECIMEN Ordering Facility: [facility] Address: [address] [place] [address] Performed By: #### I NHALE #### [facility] CLIA [id number] [address] [place] [address] [place] Goosefoot IgE Qn (S) <0.35 Normal <0.35 [facility] Comment on above: Order Comment: Speci men Type: BLOOD SPECIMEN Ordering Facility: [facility] Address: [address] [place] [address] Performed By: #### I NHALE #### [facility] CLIA [id number] [address] [place] Goosefoot IgE RAST class (S) Class 0 Normal Class 0 [facility] Comment on above: Order Comment: Speci men Type: BLOOD SPECIMEN Ordering Facility: [facility] Address: [address] [place] [address] Performed By: #### I NHALE #### [facility] CLIA [id number] [address] [place] [address] [place] House dust Negar Kimberley IgE Qn (S) <0.35 Normal <0.35 [facility] Comment on above: Order Comment: Speci men Type: BLOOD SPECIMEN Ordering Facility: [facility] Address: [address] [place] [address] Performed By: #### I NHALE #### [facility] CLIA [id number] [address] [place] [address] [place] House dust IgE RAST class (S) Class 0 Normal Class 0 [facility] Comment on above: Order Comment: Speci men Type: BLOOD SPECIMEN Ordering Facility: [facility] Address: [address] [place] [address] Performed By: #### I NHALE #### [facility] CLIA [id number] [address] [place] [address] [place] Kentucky blue grass IgE Qn (S) <0.35 Normal <0.35 [facility] Comment on above: Order Comment: Speci men Type: BLOOD SPECIMEN Ordering Facility: [facility] Address: [address] [place] [address] Performed By: #### I NHALE #### [facility] CLIA [id number] [address] [place] [address] [place] blue grass IgE RAST class (S) Class 0 Normal Class 0 [facility] Comment on above: Order Comment: Speci men Type: BLOOD SPECIMEN Ordering Facility: [facility] Address: [address] [place] [address] Performed By: #### I NHALE #### [facility] CLIA [id number] [address] [place] P. notatum IgE Qn (S) <0.35 Normal <0.35 [facility] Comment on above: Order Comment: Speci men Type: BLOOD SPECIMEN Ordering Facility: [facility] Address: [address] [place] [address] Performed By: #### I NHALE #### [facility] CLIA [id number] [address] [place] P. notatum IgE RAST class (S) Class 0 Normal Class 0 [facility] Comment on above: Order Comment: Speci men Type: BLOOD SPECIMEN Ordering Facility: [facility] Address: [address] [place] [address] Performed By: #### I NHALE #### [facility] CLIA [id number] [address] [place] [address] [place] Yasmeen IgE Qn (S) <0.35 Normal <0.35 [facility] Comment on above: Order Comment: Speci men Type: BLOOD SPECIMEN Ordering Facility: [facility] Address: [address] [place] [address] Performed By: #### I NHALE #### [facility] CLIA [id number] [address] [place] [address] [place] Yasmeen IgE RAST class (S) Class 0 Normal Class 0 [facility] Comment on above: Order Comment: Speci men Type: BLOOD SPECIMEN Ordering Facility: [facility] Address: [address] [place] [address] Performed By: #### I NHALE #### [facility] CLIA [id number] [facility] [place] [address] [place] Rocky Hill IgE Qn (S) <0.35 Normal <0.35 [facility] Comment on above: Order Comment: Speci men Type: BLOOD SPECIMEN Ordering Facility: [facility] Address: [address] [place] [address] Performed By: #### I NHALE #### [facility] CLIA [id number] [address] [place] [address] [place] Rocky Hill IgE RAST class (S) Class 0 Normal Class 0 [facility] Comment on above: Order Comment: Speci men Type: BLOOD SPECIMEN Ordering Facility: [facility] Address: [address] [place] [address] Performed By: #### I NHALE #### [facility] CLIA [id number] [address] [place] [address] [place] ALGN MOLDS GROUPon 3 A. alternata IgE Qn (S) <0.35 Normal <0.35 [facility] Comment on above: Order Comment: Speci men Type: BLOOD SPECIMEN Ordering Facility: [facility] Address: [address] [place] [address] Performed By: #### M OLDS #### [facility] CLIA [id number] [address] [place] [address] [place] Performed By: #### I NHALE #### [facility] CLIA [id number] [address] [place] [address] [place] A. alternata IgE RAST class (S) Class 0 Normal Class 0 [facility] Comment on above: Order Comment: Speci men Type: BLOOD SPECIMEN Ordering Facility: [facility] Address: [address] [place] [address] Performed By: #### Sukhjinder VIEIRA #### [facility] CLIA [id number] [address] [place] [address] [place] Performed By: #### I NHALE #### [facility] CLIA [id number] [address] [place] [address] [place] A. fumigatus IgE Qn (S) <0.35 Normal <0.35 [facility] Comment on above: Order Comment: Speci men Type: BLOOD SPECIMEN Ordering Facility: [facility] Address: [address] [place] [address] Performed By: #### Sukhjinder VIEIRA #### [facility] CLIA [id number] [address] [place] Performed By: #### I NHALE #### [facility] CLIA [id number] [address] [place] [address] [place] Performed By: #### 1 9113-0, 6025-1 #### [facility] CLIA [id number] [address] [place] [address] [place] A. fumigatus IgE RAST class (S) Class 0 Normal Class 0 [facility] Comment on above: Order Comment: Speci men Type: BLOOD SPECIMEN Ordering Facility: [facility] Address: [address] [place] [address] Performed By: #### M ISHA #### [facility] CLIA [id number] [address] [place] Performed By: #### I NHALE #### [facility] CLIA [id number] [address] [place] [address] [place] Performed By: #### 1 9113-0, 6025-1 #### [facility] CLIA [id number] [address] [place] [address] [place] C. albicans IgE Qn (S) <0.35 Normal <0.35 [facility] Comment on above: Order Comment: Speci men Type: BLOOD SPECIMEN Ordering Facility: [facility] Address: [address] [place] [address] Performed By: #### M ISHA #### [facility] CLIA [id number] [address] [place] C. albicans IgE RAST class (S) Class 0 Normal Class 0 [facility] Comment on above: Order Comment: Speci men Type: BLOOD SPECIMEN Ordering Facility: [facility] Address: [address] [place] [address] Performed By: #### Sukhjinder VIEIRA #### [facility] CLIA [id number] [address] [place] C. herbarum IgE Qn (S) <0.35 Normal <0.35 [facility] Comment on above: Order Comment: Speci men Type: BLOOD SPECIMEN Ordering Facility: [facility] Address: [address] [place] [address] Performed By: #### Sukhjinder VIEIRA #### [facility] CLIA [id number] [address] [place] [address] [place] Performed By: #### I CAMILLEALE #### [facility] CLIA [id number] [address] [place] [address] [place] C. herbarum IgE RAST class (S) Class 0 Normal Class 0 [facility] Comment on above: Order Comment: Speci men Type: BLOOD SPECIMEN Ordering Facility: [facility] Address: [address] [place] [address] Performed By: #### M ISHA #### [facility] CLIA [id number] [facility] [place] [address] [place] Performed By: #### I ELAINA #### [facility] CLIA [id number] [address] [place] [address] [place] Mucor racemosus IgE Qn (S) <0.35 Normal <0.35 [facility] Comment on above: Order Comment: Speci men Type: BLOOD SPECIMEN Ordering Facility: [facility] Address: [address] [place] [address] Performed By: #### M ISHA #### [facility] CLIA [id number] [address] [place] [address] [place] Mucor racemosus IgE RAST class (S) Class 0 Normal Class 0 [facility] Comment on above: Order Comment: Speci men Type: BLOOD SPECIMEN Ordering Facility: [facility] Address: [address] [place] [address] Performed By: #### Sukhjinder VIEIRA #### [facility] CLIA [id number] [address] [place] [address] [place] IgE SerPl-aCncon 04-04-2023 IgE Qn 25.8 kU/l Normal <114.0 [facility] Comment on above: Order Comment: Speci men Type: BLOOD SPECIMEN Ordering Facility: [facility] Address: [address] [place] [address] Performed By: #### 1 9113-0, 6025-1 #### [facility] CLIA [id number] [address] [place] [address] [place] XR CHEST 2 VIEWSon 3 XR CHEST 2 VIEWS ORIGINAL HISTORY: Cough COMPARISON: 28 February 2023 FINDINGS: The lungs are clear. The cardiac silhouette is normal to mildly enlarged. The pulmonary vasculature is unremarkable in appearance. IMPRESSION: Clear lungs Interpreted by: Elton Lane MD Preliminary Report By: Elton Lane MD Electronically signed By Elton Lane MD Dictated Date: 04/01/2023 12:58:47 PM Prelim Date: 04/01/2023 12:59:16 PM Sign Date: 04/01/2023 12:59:16 PM Ordering Provider: [facility] ([place]) Basophil percentageOrdered B y: Rehan Clifton on 03-09-2023 Basophil percentage >100 SEEN /hpf 0-5 [facility] Bilirubin Test strip Ql (U)O rdered By: Rehan Clifton on 03-09-2023 Bilirubin Ql (U) Negative Negative [facility] Culture, urineOrdered By: Patience Cardona on 03-09-2023 Bacteria identified Cx Nom (U) Positive [facility] Ketones Test strip Ql (U)Ord ered By: Rehan Clifton on 03-09-2023 Ketones Ql (U) Negative Negative [facility] Laboratory - Chemistry and C hemistry - challengeon 03-09-2023 HCG ( test) Ql (U) Negative [facility] Bilirubin Ql (U) Negative [facility] Glucose Ql (U) Negative [facility] Ketones Ql (U) Negative [facility] pH (U) 7.5 [pH] [facility] Specific gravity (U) [Rel density] 1.010 [facility] Urobilinogen (U) [Mass/Vol] 0.4314365 mg/dL [facility] Laboratory - Hematology and Cell countson 03-09-2023 Hemoglobin Ql (U) Hemolyzed [facility] - Specimen inform ationon 03-09-2023 Clarity (U) Hazy [facility] Color (U) Yellow [facility] - Urinalysison Nitrite Ql (U) Negative [facility] Protein Ql (U) 1+ [facility] Mucus LM Ql (Urine sed)Order ed By: Rehan Clifton on 03-09-2023 Mucus Ql (Urine sed) 0 SEEN /hpf [facility] Nitrite Test strip Ql (U)Ord ered By: Rehan Clifton on 03-09-2023 Nitrite Ql (U) Negative Negative [facility] No Panel Informationon 03-09 Urine Leukocytes Negatve [facility] Urine Non-Hemolyzed Blood Large [facility] Protein Test strip Ql (U)Ord ered By: Rehan Clifton on 03-09-2023 Protein Ql (U) 15 mg/dl Negative [facility] Squamous epithelial cells de tection in urine sediment by light microscopyOrdered By: Rehan Clifton on 03-09-2023 Epithelial cells.squamous LM Ql (Urine sed) 0 SEEN /hpf 5-10 [facility] Urine blood detectionOrdered By: Rehan Clifton on 03-09-2023 RBC Ql (U) 250 /ul Negative [facility] RBC Ql (U) 10-25 SEEN /hpf 0-5 [facility] Urine clarityOrdered By: Keegan Clifton on 03-09-2023 Clarity (U) Sl. Cloudy Clear [facility] Urine color determinationOrd ered By: Rehan Clifton on 03-09-2023 Color (U) Yellow Yellow [facility] Urine glucose detectionOrder ed By: Rehan Clifton on 03-09-2023 Glucose Ql (U) Normal mg/dl Normal [facility] Urine leukocyte esterase det ection by dipstickOrdered By: Rehan Clifton on 03-09-2023 Leukocyte esterase Test strip Ql (U) 500 /ul Negative [facility] Urine pHOrdered By: Rehan damian on 03-09-2023 pH (U) 6.0 [pH] 5.0 - 8.0 [facility] Urine sediment bacteria coun t by microscopy (number/high power field)Ordered By: Rehan Clifton on 03-09-2023 Bacteria LM.HPF (Urine sed) [#/Area] 1 /[HPF] None Seen [facility] Urine specific gravity measu rementOrdered By: Rehan Clifton on 03-09-2023 Specific gravity (U) [Rel density] 1.020 1.002-1.030 [facility] Urobilinogen Auto test strip Ql (U)Ordered By: Rehan Clifton on 03-09-2023 Urobilinogen Ql (U) Normal mg/dl Normal [facility] .Auto Diffon 03-05-2023 Basophil, Absolute 0.0 10 3/mcL Normal 0.0-0.2 [facility] ([place]) Comment on above: Performed By: #### G FR, CMP, VIDH, CBC, TSH, LIPID, ADIFF, ANEU, FT4 ####[address] [place], [place] [address] Basophils/100 WBC (Bld) 0.4 % Normal 0.0-2.5 [facility] ([place]) Comment on above: Performed By: #### G FR, CMP, VIDH, CBC, TSH, LIPID, ADIFF, ANEU, FT4 ####[address] [place] [address] Eosinophil, Absolute 0.1 10 3/mcL Normal 0.0-0.4 [facility] ([place]) Comment on above: Performed By: #### G FR, CMP, VIDH, CBC, TSH, LIPID, ADIFF, ANEU, FT4 ####[address] [place], [place] [address] Eosinophils/100 WBC (Bld) 1.5 % Normal 0.0-7.0 [facility] ([place]) Comment on above: Performed By: #### G FR, CMP, VIDH, CBC, TSH, LIPID, ADIFF, ANEU, FT4 ####[address]inda [address] [address] Lymphocyte, Absolute 2.5 10 3/mcL Normal 0.8-3.9 [facility] ([place]) Comment on above: Performed By: #### G FR, CMP, VIDH, CBC, TSH, LIPID, ADIFF, ANEU, FT4 ####[address] [place] [address] Lymphocytes/100 WBC (Bld) 30.9 % Normal 10.0-50.0 [facility] ([place]) Comment on above: Performed By: #### G FR, CMP, VIDH, CBC, TSH, LIPID, ADIFF, ANEU, FT4 ####[address] [place], [place] [address] Monocyte, Absolute 0.7 10 3/mcL Normal 0.2-1.0 [facility] ([place]) Comment on above: Performed By: #### G FR, CMP, VIDH, CBC, TSH, LIPID, ADIFF, ANEU, FT4 ####[address] [place], [place] [address] Monocytes/100 WBC (Bld) 8.5 % Normal 1.7-13.0 [facility] ([place]) Comment on above: Performed By: #### G FR, CMP, VIDH, CBC, TSH, LIPID, ADIFF, ANEU, FT4 ####[address] [place], [place] [address] Neutrophils/100 WBC (Bld) 58.7 % Normal 37.0-80.0 [facility] ([place]) Comment on above: Performed By: #### G FR, CMP, VIDH, CBC, TSH, LIPID, ADIFF, ANEU, FT4 ####Linda [address] [place], [place] [address] .GFRon 03-05-2023 GFR 124 ml/min/1.73sqm Normal [facility] ([place]) Comment on above: Result Comment: GFR [...] CBC, TSH, LIPID, ADIFF, ANEU, FT4 ####Linda [address] [place], [place] [address] GFR Non- 102 ml/min/1.73sqm Normal [facility] ([place]) Comment on above: Result Comment: GFR [...] TSH, LIPID, ADIFF, ANEU, FT4 ####[address] [place], [place] [address] .NEUABSon 03-05-2023 Neutrophil, Absolute 4.8 10 3/mcL Normal 2.9-6.2 [facility] ([place]) Comment on above: Performed By: #### G FR, CMP, VIDH, CBC, TSH, LIPID, ADIFF, ANEU, FT4 ####[address] [place], [place] [address] CBCon 03-05-2023 Erythrocyte distribution width (RBC) [Ratio] 13.0 % Normal 11.5-14.5 [facility] ([place]) Comment on above: Performed By: #### G FR, CMP, VIDH, CBC, TSH, LIPID, ADIFF, ANEU, FT4 ####[address] [place], [place] [address] Hematocrit (Bld) [Volume fraction] 39.0 % Normal 37.0-47.0 [facility] ([place]) Comment on above: Performed By: #### G FR, CMP, VIDH, CBC, TSH, LIPID, ADIFF, ANEU, FT4 ####[address] [place], [place] [address] Hgb 12.9 G/dL Normal 12.0-16.0 [facility] ([place]) Comment on above: Performed By: #### G FR, CMP, VIDH, CBC, TSH, LIPID, ADIFF, ANEU, FT4 ####[address] [place], [place] [address] MCH (RBC) [Entitic mass] 28.9 pg Normal 27.0-31.2 [facility] ([place]) Comment on above: Performed By: #### G FR, CMP, VIDH, CBC, TSH, LIPID, ADIFF, ANEU, FT4 ####[address] [place], [place] [address] MCHC 33.1 G/dL Normal 33.0-37.0 [facility] ([place]) Comment on above: Performed By: #### G FR, CMP, VIDH, CBC, TSH, LIPID, ADIFF, ANEU, FT4 ####[address] [place], [place] [address] MCV (RBC) [Entitic vol] 87.3 fL Normal 80.0-94.0 [facility] ([place]) Comment on above: Performed By: #### G FR, CMP, VIDH, CBC, TSH, LIPID, ADIFF, ANEU, FT4 ####[address] [place], [place] [address] Platelet 265 10 3/mcL Normal 130-400 [facility] ([place]) Comment on above: Performed By: #### G FR, CMP, VIDH, CBC, TSH, LIPID, ADIFF, ANEU, FT4 ####[address]inda [address] [place], [place] [address] Platelet mean volume (Bld) [Entitic vol] 8.5 fL Normal 7.4-10.4 [facility] ([place]) Comment on above: Performed By: #### G FR, CMP, VIDH, CBC, TSH, LIPID, ADIFF, ANEU, FT4 ####[address]inda [address] [place], [place] [address] RBC 4.46 10 6/mcL Normal 4.20-5.40 [facility] ([place]) Comment on above: Performed By: #### G FR, CMP, VIDH, CBC, TSH, LIPID, ADIFF, ANEU, FT4 ####[address] [place], [place] [address] WBC 8.1 10 3/mcL Normal 4.6-10.8 [facility] ([place]) Comment on above: Performed By: #### G FR, CMP, VIDH, CBC, TSH, LIPID, ADIFF, ANEU, FT4 ####[address] [place], [place] [address] CMPon 03-05-2023 Albumin Level 3.8 G/dL Normal 3.5-5.0 [facility] ([place]) Comment on above: Performed By: #### G FR, CMP, VIDH, CBC, TSH, LIPID, ADIFF, ANEU, FT4 ####[address] [place], [place] [address] Albumin/Globulin [Mass ratio] 1.1 {ratio} Normal 1.1-2.5 [facility] ([place]) Comment on above: Performed By: #### G FR, CMP, VIDH, CBC, TSH, LIPID, ADIFF, ANEU, FT4 ####[address] [place], [place] [address] ALP [Catalytic activity/Vol] 87 U/L Normal 40-135 [facility] ([place]) Comment on above: Performed By: #### G FR, CMP, VIDH, CBC, TSH, LIPID, ADIFF, ANEU, FT4 ####[address] [place], [place] [address] ALT [Catalytic activity/Vol] 24 U/L Normal 14-59 [facility] ([place]) Comment on above: Performed By: #### G FR, CMP, VIDH, CBC, TSH, LIPID, ADIFF, ANEU, FT4 ####[address] [place], [place] [address] AST [Catalytic activity/Vol] 16 U/L Normal 10-40 [facility] ([place]) Comment on above: Performed By: #### G FR, CMP, VIDH, CBC, TSH, LIPID, ADIFF, ANEU, FT4 ####[address] [place], [place] [address] Bili Total 0.2 mg/dL Normal 0.2-1.0 [facility] ([place]) Comment on above: Result Comment: Use of this assay is not recommended for patients undergoing treatment with eltrombopag due to the potential for falsely elevated results. Performed By: #### G FR, CMP, VIDH, CBC, TSH, LIPID, ADIFF, ANEU, FT4 ####[address] [place], [place] [address] BUN/Creatinine Ratio 20 ratio Normal 7-27 [facility] ([place]) Comment on above: Performed By: #### G FR, CMP, VIDH, CBC, TSH, LIPID, ADIFF, ANEU, FT4 ####[address] [place], [place] [address] Calcium [Mass/Vol] 9.0 mg/dL Normal 8.4-10.2 [facility] ([place]) Comment on above: Performed By: #### G FR, CMP, VIDH, CBC, TSH, LIPID, ADIFF, ANEU, FT4 ####[address] [place], [place] [address] Chloride [Moles/Vol] 102 mmol/L Normal 98-107 [facility] ([place]) Comment on above: Performed By: #### G FR, CMP, VIDH, CBC, TSH, LIPID, ADIFF, ANEU, FT4 ####[address] [place], [place] [address] CO2 [Moles/Vol] 28 mmol/L Normal 22-29 [facility] ([place]) Comment on above: Performed By: #### G FR, CMP, VIDH, CBC, TSH, LIPID, ADIFF, ANEU, FT4 ####[address] [place], [place] [address] Creatinine [Mass/Vol] 0.71 mg/dL Normal 0.55-1.02 [facility] ([place]) Comment on above: Performed By: #### G FR, CMP, VIDH, CBC, TSH, LIPID, ADIFF, ANEU, FT4 ####[address] [place], [place] [address] Electrolyte Balance 11.0 mEq/L Normal 4.0-15.0 [facility] ([place]) Comment on above: Performed By: #### G FR, CMP, VIDH, CBC, TSH, LIPID, ADIFF, ANEU, FT4 ####[address] [place], [place] [address] Globulin 3.6 G/dL Normal [facility] ([place]) Comment on above: Performed By: #### G FR, CMP, VIDH, CBC, TSH, LIPID, ADIFF, ANEU, FT4 ####[address] [place], [place] [address] Glucose [Mass/Vol] 95 mg/dL Normal 70-105 [facility] ([place]) Comment on above: Performed By: #### G FR, CMP, VIDH, CBC, TSH, LIPID, ADIFF, ANEU, FT4 ####[address] [place], [place] [address] Potassium [Moles/Vol] 4.3 mmol/L Normal 3.5-5.1 [facility] ([place]) Comment on above: Performed By: #### G FR, CMP, VIDH, CBC, TSH, LIPID, ADIFF, ANEU, FT4 ####[address] [place], [place] [address] Sodium [Moles/Vol] 141 mmol/L Normal 136-145 [facility] ([place]) Comment on above: Performed By: #### G FR, CMP, VIDH, CBC, TSH, LIPID, ADIFF, ANEU, FT4 ####[address] [place], [place] [address] Total Protein 7.4 G/dL Normal 6.4-8.2 [facility] ([place]) Comment on above: Performed By: #### G FR, CMP, VIDH, CBC, TSH, LIPID, ADIFF, ANEU, FT4 ####[address] [place], [place] [address] Urea nitrogen [Mass/Vol] 14 mg/dL Normal 7-18 [facility] ([place]) Comment on above: Performed By: #### G FR, CMP, VIDH, CBC, TSH, LIPID, ADIFF, ANEU, FT4 ####[address] [place], [place] [address] FT4on 03-05-2023 Free T4 [Mass/Vol] 0.90 ng/dL Normal 0.76-1.46 [facility] ([place]) Comment on above: Performed By: #### G FR, CMP, VIDH, CBC, TSH, LIPID, ADIFF, ANEU, FT4 ####[address] [place] [address] LABORATORYOrdered By: SYSTEM SYSTEM on 03-05-2023 25-hydroxyvitamin [...] 03-05-2023 Cholesterol [Mass/Vol] 196 mg/dL Normal 0-200 [facility] ([place]) Comment on above: Result Comment: Chol esterol Reference Interval: Less than 200 Desirable 200-239 Borderline high risk 240 and above High risk Performed By: #### G FR, CMP, VIDH, CBC, TSH, LIPID, ADIFF, ANEU, FT4 ####[address] [place], [place] [address] Cholesterol in HDL [Mass/Vol] 48 mg/dL Normal 40-60 [facility] ([place]) Comment on above: Performed By: #### G FR, CMP, VIDH, CBC, TSH, LIPID, ADIFF, ANEU, FT4 ####[address] [place], [place] [address] Cholesterol in LDL [Mass/Vol] 97 mg/dL Normal 0-130 [facility] ([place]) Comment on above: Performed By: #### G FR, CMP, VIDH, CBC, TSH, LIPID, ADIFF, ANEU, FT4 ####[address] [place], [place] [address] Triglyceride [Mass/Vol] 255 mg/dL High 0-150 [facility] ([place]) Comment on above: Result Comment: Trig lyceride Reference Interval: Less than 150 Normal 150-199 Borderline high risk 200-499 High risk 500 or higher Very high risk Performed By: #### G FR, CMP, VIDH, CBC, TSH, LIPID, ADIFF, ANEU, FT4 ####[address] [place], [place] [address] TSHon 03-05-2023 TSH Qn 2.12 m[IU]/L Normal 0.36-3.74 [facility] ([place]) Comment on above: Performed By: #### G FR, CMP, VIDH, CBC, TSH, LIPID, ADIFF, ANEU, FT4 ####[address] [place], [place] [address] VIDHon 03-05-2023 Vit. D 25-Hydroxy 12.9 ng/mL Normal [facility] ([place]) Comment on above: Result Comment: Inte rpretive Values Based on Total 25(OH) Vitamin D: Deficient <20 ng/mL Insufficient 20 - <30 ng/mL Sufficient 30-100 ng/mL Performed By: #### G FR, CMP, VIDH, CBC, TSH, LIPID, ADIFF, ANEU, FT4 ####[address]inda [address] [place], [place] [address] XR CHEST 2 VIEWSon 3 XR CHEST [...] Date: 03/02/2023 10:00:06 AM Ordering Provider: JACK Terry [facility] ([place]) [facility] 02-26-2023 [facility] HNO ID: [id number] Author: Romy Cao RT(R) Service: Radiology Author Type: Fire Sprinkler Fitter Type: Allied Health Filed: 02/26/2023 8:51 PM [...] IV DATA: Not applicable SIGNED BY: RT Teagan(R) February 26, 2023 8:51 PM Normal [facility] Basic metabolic 2000 panelon 02-26-2023 Anion gap [Moles/Vol] 12 mmol/L Normal 9-18 [facility] Comment on above: Order Comment: Ronnie alonzo Type: BLOOD SPECIMEN Ordering Facility: [facility] Address: [address] [place] [address] Performed By: #### 2 4321-2 #### [facility] CLIA [id number] [address] [place] [address] [place] Calcium [Mass/Vol] 9.4 mg/dL Normal 8.5-10.2 [facility] Comment on above: Order Comment: Ronnie alonzo Type: BLOOD SPECIMEN Ordering Facility: [facility] Address: [address] [place] [address] Performed By: #### 2 4321-2 #### [facility] CLIA [id number] [address] [place] [address] [place] Chloride [Moles/Vol] 103 mmol/L Normal 97-105 [facility] Comment on above: Order Comment: Speci men Type: BLOOD SPECIMEN Ordering Facility: [facility] Address: [address] [place] [address] Performed By: #### 2 4321-2 #### [facility] CLIA [id number] [address] [place] [address] [place] CO2 [Moles/Vol] 25 mmol/L Normal 22-30 [facility] Comment on above: Order Comment: Speci men Type: BLOOD SPECIMEN Ordering Facility: [facility] Address: [address] [place] [address] Performed By: #### 2 4321-2 #### [facility] CLIA [id number] [address] [place] [address] [place] Creatinine [Mass/Vol] 0.65 mg/dL Normal 0.58-0.96 [facility] Comment on above: Order Comment: Speci men Type: BLOOD SPECIMEN Ordering Facility: [facility] Address: [address] [place] [address] Performed By: #### 2 4321-2 #### [facility] CLIA [id number] [address] [place] [address] [place] [facility] [place] Creatinine and Glomerular filtration rate.predicted panel (S/P/Bld) 127 mL/min/1.73m??? Normal >=60 [facility] Comment on above: Order Comment: Speci men Type: BLOOD SPECIMEN Ordering Facility: [facility] Address: [address] [place] [address] Result Comment: Edwige mated Glomerular Filtration Rate [...] GFR. Performed By: #### 2 4321-2 #### [facility] CLIA [id number] [address] [place] [address] [place] Glucose [Mass/Vol] 99 mg/dL Normal 74-99 [facility] Comment on above: Order Comment: Ronnie alonzo Type: BLOOD SPECIMEN Ordering Facility: [facility] Address: [address] [place] [address] Result Comment: The [place] [employer] (ADA) provides guidance for cutoff [...] Standards of Medical Care in Diabetes 2016, [place] [employer]. Diabetes Care. 2016.39(Suppl 1). Performed By: #### 2 4321-2 #### [facility] CLIA [id number] [address] [place] [address] [place] Potassium [Moles/Vol] 3.8 mmol/L Normal 3.7-5.1 [facility] Comment on above: Order Comment: Ronnie alonzo Type: BLOOD SPECIMEN Ordering Facility: [facility] Address: [address] [place] [address] Performed By: #### 2 4321-2 #### [facility] CLIA [id number] [address] [place] [address] [place] Sodium [Moles/Vol] 140 mmol/L Normal 136-144 [facility] Comment on above: Order Comment: Ronnie alonzo Type: BLOOD SPECIMEN Ordering Facility: [facility] Address: [address] [place] [address] Performed By: #### 2 4321-2 #### [facility] CLIA [id number] [address] [place] [address] [place] Urea nitrogen [Mass/Vol] 13 mg/dL Normal 7-21 [facility] Comment on above: Order Comment: Speci men Type: BLOOD SPECIMEN Ordering Facility: [facility] Address: [address] [place] [address] Performed By: #### 2 4321-2 #### [facility] CLIA [id number] [address] [place] [address] [place] CBC W Auto Differential pane l (Bld)on 02-26-2023 Basophils (Bld) [#/Vol] 10*3/uL Normal <0.11 [facility] Comment on above: Order Comment: Speci men Type: BLOOD SPECIMEN Ordering Facility: [facility] Address: [address] [place] [address] Performed By: #### 5 7021-8 #### [facility] CLIA [id number] [address] [place] [address] [place] Basophils/100 WBC (Bld) 0.3 % Normal [facility] Comment on above: Order Comment: Speci men Type: BLOOD SPECIMEN Ordering Facility: [facility] Address: [address] [place] [address] Performed By: #### 5 7021-8 #### [facility] CLIA [id number] [address] [place] Differential cell count method Nom (Bld) Auto Normal [facility] Comment on above: Order Comment: Speci men Type: BLOOD SPECIMEN Ordering Facility: [facility] Address: [address] [place] [address] Performed By: #### 5 7021-8 #### [facility] CLIA [id number] [address] [place] [address] [place] Eosinophils (Bld) [#/Vol] 0.15 10*3/uL Normal <0.46 [facility] Comment on above: Order Comment: Speci men Type: BLOOD SPECIMEN Ordering Facility: [facility] Address: [address] [place] [address] Performed By: #### 5 7021-8 #### [facility] CLIA [id number] [address] [place] [address] [place] Eosinophils/100 WBC (Bld) 2.1 % Normal [facility] Comment on above: Order Comment: Speci men Type: BLOOD SPECIMEN Ordering Facility: [facility] Address: [address] [place] [address] Performed By: #### 5 7021-8 #### [facility] CLIA [id number] [address] [place] [address] [place] Erythrocyte distribution width (RBC) [Ratio] 12.4 % Normal 11.5-15.0 [facility] Comment on above: Order Comment: Speci men Type: BLOOD SPECIMEN Ordering Facility: [facility] Address: [address] [place] [address] Performed By: #### 5 7021-8 #### [facility] CLIA [id number] [address] [place] [address] [place] Hematocrit (Bld) [Volume fraction] 40.4 % Normal 36.0-46.0 [facility] Comment on above: Order Comment: Speci men Type: BLOOD SPECIMEN Ordering Facility: [facility] Address: [address] [place] [address] Performed By: #### 5 7021-8 #### [facility] CLIA [id number] [address] [place] [address] [place] Hemoglobin (Bld) [Mass/Vol] 12.7 g/dL Normal 11.5-15.5 [facility] Comment on above: Order Comment: Speci men Type: BLOOD SPECIMEN Ordering Facility: [facility] Address: [address] [place] [address] Performed By: #### 5 7021-8 #### [facility] CLIA [id number] [address] [place] [address] [place] Immature granulocytes (Bld) [#/Vol] 10*3/uL Normal <0.10 [facility] Comment on above: Order Comment: Speci men Type: BLOOD SPECIMEN Ordering Facility: [facility] Address: [address] [place] [address] Performed By: #### 5 7021-8 #### [facility] CLIA [id number] [address] [place] [address] [place] Immature granulocytes/100 WBC (Bld) 0.1 % Normal [facility] Comment on above: Order Comment: Speci men Type: BLOOD SPECIMEN Ordering Facility: [facility] Address: [address] [place] [address] Performed By: #### 5 7021-8 #### [facility] CLIA [id number] [address] [place] [address] [place] Lymphocytes (Bld) [#/Vol] 2.83 10*3/uL Normal 1.00-4.00 [facility] Comment on above: Order Comment: Speci men Type: BLOOD SPECIMEN Ordering Facility: [facility] Address: [address] [place] [address] Performed By: #### 5 7021-8 #### [facility] CLIA [id number] [address] [place] [address] [place] Lymphocytes/100 WBC (Bld) 38.9 % Normal [facility] Comment on above: Order Comment: Speci men Type: BLOOD SPECIMEN Ordering Facility: [facility] Address: [address] [place] [address] Performed By: #### 5 7021-8 #### [facility] CLIA [id number] [address] [place] [address] [place] MCH (RBC) [Entitic mass] 28.9 pg Normal 26.0-34.0 [facility] Comment on above: Order Comment: Speci men Type: BLOOD SPECIMEN Ordering Facility: [facility] Address: [address] [place] [address] Performed By: #### 5 7021-8 #### [facility] CLIA [id number] [address] [place] [address] [place] MCHC (RBC) [Mass/Vol] 31.4 g/dL Normal 30.5-36.0 [facility] Comment on above: Order Comment: Speci men Type: BLOOD SPECIMEN Ordering Facility: [facility] Address: [address] [place] [address] Performed By: #### 5 7021-8 #### [facility] CLIA [id number] [address] [place] [address] [place] MCV (RBC) [Entitic vol] 91.8 fL Normal 80.0-100.0 [facility] Comment on above: Order Comment: Speci men Type: BLOOD SPECIMEN Ordering Facility: [facility] Address: [address] [place] [address] Performed By: #### 5 7021-8 #### [facility] CLIA [id number] [address] [place] [address] [place] Monocytes (Bld) [#/Vol] 0.69 10*3/uL Normal <0.87 [facility] Comment on above: Order Comment: Speci men Type: BLOOD SPECIMEN Ordering Facility: [facility] Address: [address] [place] [address] Performed By: #### 5 7021-8 #### [facility] CLIA [id number] [address] [place] [address] [place] Monocytes/100 WBC (Bld) 9.5 % Normal [facility] Comment on above: Order Comment: Speci men Type: BLOOD SPECIMEN Ordering Facility: [facility] Address: [address] [place] [address] Performed By: #### 5 7021-8 #### [facility] CLIA [id number] [address] [place] [address] [place] Neutrophils (Bld) [#/Vol] 3.57 10*3/uL Normal 1.45-7.50 [facility] Comment on above: Order Comment: Speci men Type: BLOOD SPECIMEN Ordering Facility: [facility] Address: [address] [place] [address] Performed By: #### 5 7021-8 #### [facility] CLIA [id number] [address] [place] [address] [place] Neutrophils/100 WBC (Bld) 49.1 % Normal [facility] Comment on above: Order Comment: Speci men Type: BLOOD SPECIMEN Ordering Facility: [facility] Address: [address] [place] [address] Performed By: #### 5 7021-8 #### [facility] CLIA [id number] [address] [place] [address] [place] Nucleated RBC (Bld) [#/Vol] Normal [facility] Comment on above: Order Comment: Speci men Type: BLOOD SPECIMEN Ordering Facility: [facility] Address: [address] [place] [address] Performed By: #### 5 7021-8 #### [facility] CLIA [id number] [address] [place] [address] [place] Nucleated RBC/100 WBC (Bld) [Ratio] Normal [facility] Comment on above: Order Comment: Speci men Type: BLOOD SPECIMEN Ordering Facility: [facility] Address: [address] [place] [address] Performed By: #### 5 7021-8 #### [facility] CLIA [id number] [address] [place] [address] [place] Platelet mean volume (Bld) [Entitic vol] 10.3 fL Normal 9.0-12.7 [facility] Comment on above: Order Comment: Speci men Type: BLOOD SPECIMEN Ordering Facility: [facility] Address: [address] [place] [address] Performed By: #### 5 7021-8 #### [facility] CLIA [id number] [address] [place] [address] [place] Platelets (Bld) [#/Vol] 248 10*3/uL Normal 150-400 [facility] Comment on above: Order Comment: Speci men Type: BLOOD SPECIMEN Ordering Facility: [facility] Address: [address] [place] [id number] Performed By: #### 5 7021-8 #### [facility] CLIA [id number] [address] [place] [address] [facility] RBC (Bld) [#/Vol] 4.40 10*6/uL Normal 3.90-5.20 [facility] Comment on above: Order Comment: Speci men Type: BLOOD SPECIMEN Ordering Facility: [facility] Address: [place] [address] Performed By: #### 5 7021-8 #### [facility] CLIA [id number] [address] [place] [address] [facility] WBC (Bld) [#/Vol] 7.27 10*3/uL Normal 3.70-11.00 [facility] Comment on above: Order Comment: Speci men Type: BLOOD SPECIMEN Ordering Facility: [facility] Address: [place] [address] Performed By: #### 5 7021-8 #### [facility] CLIA [id number] [address] [place] [address] [facility] ECG COMPLETEon 02-26-2023 ECG COMPLETE Ventricular Rate : 8 7 BPM Atrial Rate : 87 BPM P-R Interval : 166 ms QRS Duration : 76 ms Q-T Interval : 366 ms QTC Calculation(Bazett) : 440 ms Calculated P [place] : 21 degrees Calculated R [place] : 38 degrees Calculated T [place] : 29 degrees NORMAL SINUS RHYTHM NORMAL ECG NO PREVIOUS ECGS AVAILABLE Confirmed by MD SHELTON VINAYAK ([id number]) on 03/06/2023 11:17:30 PM NAME : MATT CALABRESE PID : [id number] : 2000 Gender : Female Race : ORD : [id number] Procedure Date : Feb 26 2023 20:23:52 Edit Date : Mar 06 2023 23:17:32 Diagnosis: NORMAL SINUS RHYTHM NORMAL ECG NO PREVIOUS ECGS AVAILABLE Confirmed by MD SHELTON VINAYAK ([id number]) on 03/06/2023 11:17:30 PM Test Reason : Shortness of Breath Location : 150 : [facility] ED Overread By : MD SHELTON VINAYAK Edited By : MD SHELTON VINAYAK Referred By : , Acquired by : SHARAN HERNANDEZ [facility] ED NOTEon 02-26-2023 ED NOTE HNO ID: [id number] Author: Eri Chowdary, LEO Service: ? Author Type: Registered Nurse Type: [...] do anything else to help you? No [facility] ED NOTE HNO ID: [id number] Author: Julia Gannon RN Service: Emergency Medicine Author Type: Registered Nurse Type: ED Notes Filed: 02/26/2023 9:44 PM Note Text: Reviewed dc orders with pt, scripts x 2 reviewed. Pt verbalized understanding. Denies any further needs. Ambulatory with steady gait for dc home per self. [facility] ED NOTE HNO ID: [id number] Author: Julia Gannon RN Service: Emergency Medicine Author Type: Registered Nurse Type: ED Notes Filed: 02/26/2023 9:43 PM Note Text: Patient informed: the name of medication, why we are giving it, possible side effects, what they may expect to feel, and was offered a chance to ask questions, prior to the administration of prednisone [facility] ED NOTE HNO ID: [id number] Author: Oriana Jenkins RN Service: ? Author Type: Registered Nurse Type: ED Notes Filed: 02/26/2023 6:48 PM Note Text: Pt arrives c/o cough States recent pneumonia treated with doxycycline Continues to cough up fluid Reports not feeling any better [facility] ED PROV NOTEon 02-26-2023 ED PROV NOTE HNO ID: [id number] Author: Tracy Ann DO Service: Emergency Medicine [...] she coughs. She states she went to [place] ED on Sunday and states he had [...] and chest imaging. Chest x-ray report from [place] ED visit 02/24/23: IMPRESSION: Right middle lobe [...] (more content not included)... Normal [facility] HCG Preg Ur Qlon 02-26-2023 HCG ( test) Ql (U) Negative Normal Negative [facility] [facility] Comment on above: Order Comment: Ronnie alonzo Type: URINE SPECIMEN Ordering Facility: [facility] Address: [place] [address] Result Comment: This test is intended to aid in the early detection of . Very dilute urine samples, as indicated by a low specific gravity, may not contain outside dealer sales representative levels of hCG. This test detects [...] . Performed By: #### 2 [id number] #### [facility] CLIA [id number] [address] [place] [address] [place] HIGH SENSITIVITY TROPONIN To n 02-26-2023 Troponin T.cardiac High sensitivity method [Mass/Vol] <6 Normal <12 [facility] Comment on above: Order Comment: Ronnie alonzo Type: BLOOD SPECIMENOrdering Facility: [facility] Address: [place] [address] Result Comment: When assessing risk for acute [...] day MACE. Performed By: #### H STNT ####[facility] [id number] [place] [address] [place] XR CHEST 2V FRONTAL/LATon XR CHEST 2V [...] exam with no definite acute radiographic abnormality. 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: PSCB Transcribe Date/Time: Feb 26 2023 8:54P Dictated by : SHIV LYNCH MD This examination was interpreted and the report reviewed and electronically signed by: SHIV LYNCH MD on Feb 26 2023 8:55PM EST [id number] Normal [facility] Basophil percentageon 2022 Bilirubin [Mass/Vol] 0.10 mg/dL 0.20-1.00 [facility] Comment on above: For patients on eltr ombopag therapy, use of Dimension [place] TBIL is not recommended. Chloride [Moles/Vol] 107 mmol/L 98-107 [facility] Cholesterol [Mass/Vol] 182 mg/dL <200 [facility] Comment on above: <200 mg/dL Desirable 200-240 mg/dL Borderline >240 mg/dL High Risk Glucose [Mass/Vol] 101 mg/dL 74-106 [facility] Comment on above: Fasting Glucose resu lt from 100 to 125 mg/dL suggests IMPAIRED HOMEOSTASIS per A.D.A. criteria. Potassium [Moles/Vol] 4.2 mmol/L 3.5-5.1 [facility] Protein [Mass/Vol] 7.6 g/dL 6.4-8.2 [facility] Sodium [Moles/Vol] 139 mmol/L 136-145 [facility] Triglyceride [Mass/Vol] 173 mg/dL <199 [facility] Comment on above: The drugs N-Acetylcy steine and Metamizole may falsely depress this assay.Serum Triglycerides Reference Interval Normal <150 mg/dL Borderline high 150 - 199 mg/dL High 200 - 499 mg/dL Very High > or = 500 mg/dL WBC (Bld) [#/Vol] 8.4 10*3/uL 4.4-11.0 [facility] Blood erythrocytes count (nu mber/volume)on 11-23-2022 RBC (Bld) [#/Vol] 4.31 10*6/uL 4.2-5.4 [facility] Blood hemoglobin measurement (mass/volume)on 11-23-2022 Hemoglobin (Bld) [Mass/Vol] 12.6 g/dL 12.0-15.0 [facility] Blood platelet mean volumeon 11-23-2022 Platelet mean volume (Bld) [Entitic vol] 10.0 fL 6.2-12.0 [facility] Determination of erythrocyte mean corpuscular volume (MCV)on 11-23-2022 MCV (RBC) [Entitic vol] 91.4 fL 81-99 [facility] Hematocrit Auto (Bld) [Volum e fraction]on 11-23-2022 Hematocrit (Bld) [Volume fraction] 39.4 % 37-47 [facility] Laboratory - Chemistry and C hemistry - challengeon 11-23-2022 ALP [Catalytic activity/Vol] 87 U/L 45-117 [facility] ALT [Catalytic activity/Vol] 19 U/L 13-56 [facility] CO2 [Moles/Vol] 25.0 mmol/L 21.0-32.0 [facility] Free T4 [Mass/Vol] 0.91 ng/dL 0.76-1.46 [facility] Globulin (S) [Mass/Vol] 4.2 g/dL 2.2-4.2 [facility] Urea nitrogen/Creatinine [Mass ratio] 20.9 mg/mg 10-20 [facility] - Hematology and Cell countson 11-23-2022 Erythrocyte distribution width (RBC) [Entitic vol] 40.2 fL 35.1-43.9 [facility] Erythrocyte distribution width (RBC) [Ratio] 12.0 % 11.6-14.6 [facility] MCH (RBC) [Entitic mass] 29.2 pg 27.0-32.0 [facility] MCHC Auto (RBC) [Mass/Vol]on 11-23-2022 MCHC (RBC) [Mass/Vol] 32.0 g/dL 32-36 [facility] No Panel Informationon 11-23 Estimated GFR (MDRD) Amer 129 mL/min >60 [facility] Comment on above: GFR Calc Estimated GFR (MDRD) Non-Af Amer 107 mL/min >60 [facility] Comment on above: Non- GFR Calc Thyroid Stimulating Hormone (TSH) 3.38 uIU/mL 0.358-3.74 [facility] Vitamin D 25-Hydroxy 21.5 ng/mL [facility] Comment on above: Vitamin D 25(OH) Sta tus Range Deficiency <20 ng/mL (50nmol/L) Insufficiency 20 - 30 ng/mL (50 - 75 nmol/L) Sufficiency 30 - 100 ng/mL (75 - 250 nmol/L) Toxicity >100 ng/mL (>250 nmol/L) Platelets bldon 11-23-2022 Platelets (Bld) [#/Vol] 284 10*3/uL 150-450 [facility] Serum or plasma albumin carole urement (mass/volume)on 11-23-2022 Albumin [Mass/Vol] 3.4 g/dL 3.2-5.0 [facility] Serum or plasma albumin/glob ulin mass ratioon 11-23-2022 Albumin/Globulin [Mass ratio] 0.8 {ratio} 0.9-2.4 [facility] Serum or plasma calcium carole urement (mass/volume)on 11-23-2022 Calcium [Mass/Vol] 8.5 mg/dL 8.5-10.1 [facility] Serum or plasma cholesterol in HDL measurement (mass/volume)on 11-23-2022 Cholesterol in HDL [Mass/Vol] 46 mg/dL >40 [facility] Comment on above: The drugs N-Acetylcy steine and Metamizole may falsely depress this assay. Reference Range HDL <40 mg/dL Low HDL Cholesterol HDL >or= 60 mg/dL High HDL Cholesterol Serum or plasma cholesterol in VLDL measurement (mass/volume)on 11-23-2022 Cholesterol in VLDL [Mass/Vol] 35 mg/dL 5-40 [facility] Serum or plasma creatinine m easurement (mass/volume)on 11-23-2022 Creatinine [Mass/Vol] 0.72 mg/dL 0.55-1.02 [facility] Comment on above: The validity of the calculated GFR & GFRAA in patients over 70 years has not been determined. Clinical correlation is essential. Serum or plasma low density lipoprotein (LDL) cholesterol measurement (mass/volume)on 11-23-2022 Cholesterol in LDL [Mass/Vol] 101 mg/dL 0-130 [facility] Serum or plasma urea nitroge n measurement (mass/volume)on 11-23-2022 Urea nitrogen [Mass/Vol] 15 mg/dL 7-18 [facility] Thin prep Papanicolaou smear with manual screeningon 11-23-2022 Thin prep Papanicolaou smear with manual screening 17 U/L 15-37 [facility] Thin prep Papanicolaou smear with manual screening 7 5-15 [facility] Vital Signs Date Time Vital Sign Value Performing Clinician Facility 03-11-2025 13:27-0400 Body height 160 cm Jacquelin Anderson MD Work Phone: [facility] 03-11-2025 13:27-0400 Body mass index (BMI) [Ratio] 38.44 kg/m2 Jacquelin Anderson MD Work Phone: [facility] 03-11-2025 13:27-0400 Body weight 98.43 kg Jacquelin Anderson MD Work Phone: [facility] 03-11-2025 13:27-0400 Diastolic blood pressure 81 mm[Hg] Jacquelin Anderson MD Work Phone: [facility] 03-11-2025 13:27-0400 Heart rate 93 /min Jacquelin Anderson MD Work Phone: [facility] 03-11-2025 13:27-0400 Systolic blood pressure 124 mm[Hg] Jacquelin Anderson MD Work Phone: [facility] 03-06-2025 14:00-0400 Body height 160 cm Jonelle Lopez MD Work Phone: [facility] 03-06-2025 14:00-0400 Body height 160.02 cm Jonelle Lopez MD Work Phone: [facility] 03-06-2025 14:00-0400 Body mass index (BMI) [Ratio] 37.51 kg/m2 Jonelle Lopez MD Work Phone: [facility] 03-06-2025 14:00-0400 Body weight 96 kg Jonelle Lopez MD Work Phone: [facility] 03-06-2025 14:00-0400 Body weight 95.71 kg Jonelle Lopez MD Work Phone: [facility] 03-06-2025 14:00-0400 BP SITE #1 Jonelle Lopez MD Work Phone: [facility] 03-06-2025 14:00-0400 Diastolic blood pressure 76 mm[Hg] Jonelle Lopez MD Work Phone: [facility] 03-06-2025 14:00-0400 Heart rate 91 /min Jonelle Lopez MD Work Phone: [facility] 03-06-2025 14:00-0400 HGHTCHNVIS Jonelle Lopez MD Work Phone: [facility] 03-06-2025 14:00-0400 Systolic blood pressure 109 mm[Hg] Jonelle Lopez MD Work Phone: [facility] 03-06-2025 14:00-0400 VITALSDONE Jonelle Lopez MD Work Phone: [facility] 09-15-2024 08:10-0400 Body height 159.1 cm Malachi Khalil MD Work Phone: [facility] 09-15-2024 08:10-0400 Body mass index (BMI) [Ratio] 39.35 kg/m2 Malachi Khalil MD Work Phone: [facility] 09-15-2024 08:10-0400 Body weight 99.6 kg Malachi Khalil MD Work Phone: [facility] 09-15-2024 08:10-0400 Diastolic blood pressure 61 mm[Hg] Malachi Khalil MD Work Phone: [facility] 09-15-2024 08:10-0400 Heart rate 89 /min Malachi Khalil MD Work Phone: [facility] 09-15-2024 08:10-0400 Systolic blood pressure 115 mm[Hg] Malachi Khalil MD Work Phone: [facility] 07-30-2024 09:06-0400 Body height 157.5 cm Kraig Walters MD Work Phone: [facility] 07-30-2024 09:06-0400 Body mass index (BMI) [Ratio] 39.84 kg/m2 Kraig Walters MD Work Phone: [facility] 07-30-2024 09:06-0400 Body weight 98.8 kg Kraig Walters MD Work Phone: [facility] 07-30-2024 09:06-0400 Diastolic blood pressure 64 mm[Hg] Kraig Walters MD Work Phone: [facility] 07-30-2024 09:06-0400 Heart rate 102 /min Kraig Walters MD Work Phone: [facility] 07-30-2024 09:06-0400 Respiratory rate 18 /min Kraig Walters MD Work Phone: [facility] 07-30-2024 09:06-0400 SaO2% (BldA) [Mass fraction] 95 % Kraig Walters MD Work Phone: [facility] 07-30-2024 09:06-0400 Systolic blood pressure 97 mm[Hg] Kraig Walters MD Work Phone: [facility] 07-20-2024 11:07-0500 Body temperature 98.24 [degF] DARIAN NAVARRO MD [facility] 07-20-2024 11:07-0500 Heart rate 99 /min DARIAN NAVARRO MD [facility] 07-20-2024 11:07-0500 Respiratory rate 18 /min DARIAN NAVARRO MD [facility] 07-20-2024 09:30-0500 Blood Pressure Cuff Size DARIAN NAVARRO MD [facility] 07-20-2024 09:30-0500 Blood Pressure Location DARIAN NAVARRO MD [facility] 07-20-2024 09:30-0500 Blood Pressure Method DARIAN NAVARRO MD [facility] 07-20-2024 09:30-0500 Body temperature 99.5 [degF] DARIAN NAVARRO MD [facility] 07-20-2024 09:30-0500 Diastolic Blood Pressure Non-Invasive 60 mm[Hg] DARIAN NAVARRO MD [facility] 07-20-2024 09:30-0500 Heart rate 120 /min DARIAN NAVARRO MD [facility] 07-20-2024 09:30-0500 Respiratory rate 18 /min DARIAN NAVARRO MD [facility] 07-20-2024 09:30-0500 Systolic Blood Pressure Non-Invasive 113 mm[Hg] DARIAN NAVARRO MD [facility] 07-02-2024 13:37-0500 Diastolic blood pressure 67 mm[Hg] Lenora Dow MD Work Phone: [facility] 07-02-2024 13:37-0500 Heart rate 104 /min Lenora Dow MD Work Phone: [facility] 07-02-2024 13:37-0500 SaO2% (BldA) [Mass fraction] 96 % Lenora Dow MD Work Phone: [facility] 07-02-2024 13:37-0500 Systolic blood pressure 102 mm[Hg] Lenora Dow MD Work Phone: [facility] 05-09-2024 10:38-0500 Body temperature 98.24 [degF] FREDDY ANNET DO [facility] 05-09-2024 10:38-0500 Body weight 104.1 kg FREDDY CALABRESEMELT DO [facility] 05-09-2024 10:38-0500 Diastolic Blood Pressure Non-Invasive 68 mm[Hg] FREDDY CALABRESEMELT DO [facility] 05-09-2024 10:38-0500 Heart rate 100 /min FREDDY CALABRESEMELT DO [facility] 05-09-2024 10:38-0500 Respiratory rate 16 /min FREDDY FROMMELT DO [facility] 05-09-2024 10:38-0500 Systolic Blood Pressure Non-Invasive 126 mm[Hg] FREDDY CALABRESEMELT DO [facility] 04-25-2024 14:25-0500 Diastolic Blood Pressure Non-Invasive 74 mm[Hg] ARIEL WHITE MD [facility] 04-25-2024 14:25-0500 Heart rate 82 /min ARIEL WHITE MD [facility] 04-25-2024 14:25-0500 Systolic Blood Pressure Non-Invasive 112 mm[Hg] ARIEL WHITE MD [facility] 04-25-2024 13:21-0500 Diastolic Blood Pressure Non-Invasive 67 mm[Hg] ARIEL WHITE MD [facility] 04-25-2024 13:21-0500 Heart rate 75 /min ARIEL WHITE MD [facility] 04-25-2024 13:21-0500 Systolic Blood Pressure Non-Invasive 115 mm[Hg] ARIEL WHITE MD [facility] 04-25-2024 12:15-0500 Diastolic Blood Pressure Non-Invasive 64 mm[Hg] ARIEL WHITE MD [facility] 04-25-2024 12:15-0500 Heart rate 84 /min ARIEL WHITE MD [facility] 04-25-2024 12:15-0500 Systolic Blood Pressure Non-Invasive 112 mm[Hg] ARIEL WHITE MD [facility] 04-25-2024 10:30-0500 Respiratory rate 12 /min ARIEL WHITE MD [facility] 04-25-2024 10:15-0500 Respiratory rate 14 /min ARIEL WHITE MD [facility] 04-25-2024 09:19-0500 Body temperature 98.24 [degF] ARIEL WHITE MD [facility] 04-25-2024 09:10-0500 Respiratory Rate - Anes 13 br/min ARIEL WHITE MD [facility] 04-25-2024 09:05-0500 Respiratory Rate - Anes 12 br/min ARIEL WHITE MD [facility] 04-25-2024 08:45-0500 Body temperature 96.8 [degF] ARIEL WHITE MD [facility] 04-25-2024 06:40-0500 Body temperature 97.52 [degF] ARIEL WHITE MD [facility] 04-25-2024 06:40-0500 Heart rate 87 /min ARIEL WHITE MD [facility] 04-25-2024 06:31-0500 Body height 159 cm ARIEL WHITE MD [facility] 04-25-2024 06:31-0500 Body weight 101 kg ARIEL WHITE MD [facility] 04-25-2024 06:31-0500 Body weight 39.95 kg/m2 ARIEL WHITE MD [facility] 04-14-2024 15:19-0500 Body mass index (BMI) [Ratio] 41.19 kg/m2 Young Marsh DO Work Phone: [facility] 04-14-2024 15:19-0500 Body temperature 97 [degF] Young Marsh DO Work Phone: [facility] 04-14-2024 15:19-0500 Body weight 104.78 kg Young Masci DO Work Phone: [facility] 04-14-2024 15:19-0500 Diastolic blood pressure 72 mm[Hg] Young Bentoni DO Work Phone: [facility] 04-14-2024 15:19-0500 Heart rate 85 /min Young Bentoni DO Work Phone: [facility] 04-14-2024 15:19-0500 SaO2% (BldA) [Mass fraction] 98 % Young Bentoni DO Work Phone: [facility] 04-14-2024 15:19-0500 Systolic blood pressure 105 mm[Hg] Young Bentoni DO Work Phone: [facility] 04-11-2024 09:03-0500 Body height 160 cm ARIEL WHITE MD [facility] 04-11-2024 09:03-0500 Body weight 101 kg ARIEL WHITE MD [facility] 04-11-2024 09:03-0500 Body weight 39.45 kg/m2 ARIEL WHITE MD [facility] 03-24-2024 09:26-0500 Body height 158 cm JACK PRIEST NET TECHNICAL ARCHITECT-BIOMATHEMATICIAN [facility] 03-24-2024 09:26-0500 Body weight 104.1 kg JACK PRIEST NET TECHNICAL ARCHITECT-BIOMATHEMATICIAN [facility] 03-24-2024 09:26-0500 Body weight 41.7 kg/m2 JACK PRIEST NET TECHNICAL ARCHITECT-BIOMATHEMATICIAN [facility] 02-26-2024 12:09-0400 Body mass index (BMI) [Ratio] 40.64 kg/m2 Orlando Chopra APRN.BIOMATHEMATICIAN Work Phone: [facility] 02-26-2024 12:09-0400 Body temperature 98.1 [degF] Orlando King NET TECHNICAL ARCHITECT.BIOMATHEMATICIAN Work Phone: [facility] 02-26-2024 12:09-0400 Body weight 103.4 kg Orlando Chopra NET TECHNICAL ARCHITECT.BIOMATHEMATICIAN Work Phone: [facility] 02-26-2024 12:09-0400 Diastolic blood pressure 78 mm[Hg] Orlando Chopra NET TECHNICAL ARCHITECT.BIOMATHEMATICIAN Work Phone: [facility] 02-26-2024 12:09-0400 Heart rate 99 /min Orlando King NET TECHNICAL ARCHITECT.BIOMATHEMATICIAN Work Phone: [facility] 02-26-2024 12:09-0400 Respiratory rate 18 /min Orlando King NET TECHNICAL ARCHITECT.BIOMATHEMATICIAN Work Phone: [facility] 02-26-2024 12:09-0400 SaO2% (BldA) [Mass fraction] 100 % Orlando King NET TECHNICAL ARCHITECT.BIOMATHEMATICIAN Work Phone: [facility] 02-26-2024 12:09-0400 Systolic blood pressure 110 mm[Hg] Rolando King NET TECHNICAL ARCHITECT.BIOMATHEMATICIAN Work Phone: [facility] 02-20-2024 10:29-0400 Body height 159.5 cm Young Bentoni DO Work Phone: [facility] 02-20-2024 10:29-0400 Body mass index (BMI) [Ratio] 40.74 kg/m2 Young Serenityi DO Work Phone: [facility] 02-20-2024 10:29-0400 Body temperature 98.2 [degF] Young Masci DO Work Phone: [facility] 02-20-2024 10:29-0400 Body weight 103.65 kg Young Masci DO Work Phone: [facility] 02-20-2024 10:29-0400 Diastolic blood pressure 74 mm[Hg] Young Bentoni DO Work Phone: [facility] 02-20-2024 10:29-0400 Heart rate 89 /min Young Serenityi DO Work Phone: [facility] 02-20-2024 10:29-0400 SaO2% (BldA) [Mass fraction] 97 % Young Marsh DO Work Phone: [facility] 02-20-2024 10:29-0400 Systolic blood pressure 110 mm[Hg] Young Marsh DO Work Phone: [facility] 02-06-2024 11:49-0400 Body height 157.5 cm Ahmed Elghawy DO Work Phone: [facility] 02-06-2024 11:49-0400 Body mass index (BMI) [Ratio] 41.52 kg/m2 Ahmed Elghawy DO Work Phone: [facility] 02-06-2024 11:49-0400 Body temperature 97.81 [degF] Ahmed Elghawy DO Work Phone: [facility] 02-06-2024 11:49-0400 Body weight 102.97 kg Ahmed Elghawy DO Work Phone: [facility] 02-06-2024 11:49-0400 Diastolic blood pressure 55 mm[Hg] Ahmed Elghawy DO Work Phone: [facility] 02-06-2024 11:49-0400 Heart rate 97 /min Ahmed Elghawy DO Work Phone: [facility] 02-06-2024 11:49-0400 Systolic blood pressure 108 mm[Hg] Ahmed Elghawy DO Work Phone: [facility] 02-01-2024 17:29-0400 Body mass index (BMI) [Ratio] 40.22 kg/m2 Jacquelin Nassar NET TECHNICAL ARCHITECT.BIOMATHEMATICIAN Work Phone: [facility] 02-01-2024 17:29-0400 Body temperature 98.1 [degF] Jacquelin Nassar NET TECHNICAL ARCHITECT.BIOMATHEMATICIAN Work Phone: [facility] 02-01-2024 17:29-0400 Body weight 103 kg Jacquelin Nassar NET TECHNICAL ARCHITECT.BIOMATHEMATICIAN Work Phone: [facility] 02-01-2024 17:29-0400 Diastolic blood pressure 75 mm[Hg] Jacquelin Cesario NET TECHNICAL ARCHITECT.BIOMATHEMATICIAN Work Phone: [facility] 02-01-2024 17:29-0400 Heart rate 95 /min Jacquelin Cesario NET TECHNICAL ARCHITECT.BIOMATHEMATICIAN Work Phone: [facility] 02-01-2024 17:29-0400 Respiratory rate 18 /min Jacquelin Cesario NET TECHNICAL ARCHITECT.BIOMATHEMATICIAN Work Phone: [facility] 02-01-2024 17:29-0400 SaO2% (BldA) [Mass fraction] 100 % Jacquelin Cesario NET TECHNICAL ARCHITECT.BIOMATHEMATICIAN Work Phone: [facility] 02-01-2024 17:29-0400 Systolic blood pressure 110 mm[Hg] Jacquelin Cesario NET TECHNICAL ARCHITECT.BIOMATHEMATICIAN Work Phone: [facility] 01-25-2024 14:16-0400 Diastolic blood pressure 70 mm[Hg] Stacy Segura MD Work Phone: [facility] 01-25-2024 14:16-0400 Heart rate 79 /min Stacy Segura MD Work Phone: [facility] 01-25-2024 14:16-0400 Systolic blood pressure 128 mm[Hg] Stacy Segura MD Work Phone: [facility] 01-22-2024 12:00-0400 Diastolic blood pressure 55 mm[Hg] Stacy Segura MD Work Phone: [facility] 01-22-2024 12:00-0400 Heart rate 89 /min Stacy Segura MD Work Phone: [facility] 01-22-2024 12:00-0400 Respiratory rate 18 /min Stacy Segura MD Work Phone: [facility] 01-22-2024 12:00-0400 SaO2% (BldA) [Mass fraction] 96 % Stacy Segura MD Work Phone: [facility] 01-22-2024 12:00-0400 Systolic blood pressure 102 mm[Hg] Stacy Segura MD Work Phone: [facility] 01-22-2024 10:30-0400 Body temperature 97.3 [degF] Stacy Segura MD Work Phone: [facility] 01-22-2024 06:40-0400 Body mass index (BMI) [Ratio] 40.69 kg/m2 Stacy Segura MD Work Phone: [facility] 01-22-2024 06:40-0400 Body weight 104.2 kg Stacy Segura MD Work Phone: [facility] 01-18-2024 09:02-0400 Body height 160 cm Pac 1 [facility] 01-18-2024 09:02-0400 Body mass index (BMI) [Ratio] 40.77 kg/m2 [facility] 1 [facility] 01-18-2024 09:02-0400 Body temperature 98.1 [degF] [facility] 1 [facility] 01-18-2024 09:02-0400 Body weight 104.4 kg Pac 1 [facility] 01-18-2024 09:02-0400 Diastolic blood pressure 72 mm[Hg] [facility] 1 [facility] 01-18-2024 09:02-0400 Heart rate 93 /min [facility] 1 [facility] 01-18-2024 09:02-0400 SaO2% (BldA) [Mass fraction] 100 % [facility] 1 [facility] 01-18-2024 09:02-0400 Systolic blood pressure 109 mm[Hg] [facility] 1 [facility] 01-07-2024 13:10-0400 Heart rate 100 /min Tamara Maxwell APRN.BIOMATHEMATICIAN Work Phone: [facility] 01-07-2024 13:10-0400 Respiratory rate 14 /min Tamara Maxwell APRN.BIOMATHEMATICIAN Work Phone: [facility] 01-07-2024 13:10-0400 SaO2% (BldA) [Mass fraction] 95 % Tamara Maxwell NET TECHNICAL ARCHITECT.BIOMATHEMATICIAN Work Phone: [facility] 12-31-2023 15:45-0400 Body height 160 cm Stacy Segura MD Work Phone: [facility] 12-31-2023 15:45-0400 Body mass index (BMI) [Ratio] 40.85 kg/m2 Stacy Segura MD Work Phone: [facility] 12-31-2023 15:45-0400 Body weight 104.6 kg Stacy Segura MD Work Phone: [facility] 12-31-2023 15:45-0400 Diastolic blood pressure 83 mm[Hg] Stacy Segura MD Work Phone: [facility] 12-31-2023 15:45-0400 Heart rate 116 /min Stacy Segura MD Work Phone: [facility] 12-31-2023 15:45-0400 SaO2% (BldA) [Mass fraction] 97 % Stacy Segura MD Work Phone: [facility] 12-31-2023 15:45-0400 Systolic blood pressure 135 mm[Hg] Stacy Segura MD Work Phone: [facility] 12-24-2023 10:44-0400 Body mass index (BMI) [Ratio] 40.39 kg/m2 Marilyn Piña APRN.CNM Work Phone: [facility] 12-24-2023 10:44-0400 Body weight 103.42 kg Marilyn Piña NET TECHNICAL ARCHITECT.CNM Work Phone: [facility] 12-24-2023 10:44-0400 Diastolic blood pressure 68 mm[Hg] Marilyn Piña NET TECHNICAL ARCHITECT.CNM Work Phone: [facility] 12-24-2023 10:44-0400 Systolic blood pressure 106 mm[Hg] Marilyn Piña NET TECHNICAL ARCHITECT.CNM Work Phone: [facility] 12-07-2023 10:46-0400 Diastolic blood pressure 80 mm[Hg] Mari Corey APRN.BIOMATHEMATICIAN Work Phone: [facility] 12-07-2023 10:46-0400 Systolic blood pressure 122 mm[Hg] Mari Corey NET TECHNICAL ARCHITECT.BIOMATHEMATICIAN Work Phone: [facility] 12-07-2023 10:24-0400 Body height 160 cm Mari Marvinniko NET TECHNICAL ARCHITECT.BIOMATHEMATICIAN Work Phone: [facility] 12-07-2023 10:24-0400 Body mass index (BMI) [Ratio] 40.57 kg/m2 Mari Haniko NET TECHNICAL ARCHITECT.BIOMATHEMATICIAN Work Phone: [facility] 12-07-2023 10:24-0400 Body weight 103.87 kg Mari Marvinniko NET TECHNICAL ARCHITECT.BIOMATHEMATICIAN Work Phone: [facility] 12-07-2023 10:24-0400 Heart rate 78 /min Marirhona Corey NET TECHNICAL ARCHITECT.BIOMATHEMATICIAN Work Phone: [facility] 12-07-2023 10:24-0400 Respiratory rate 12 /min Mari Marvinniko NET TECHNICAL ARCHITECT.BIOMATHEMATICIAN Work Phone: [facility] 12-07-2023 10:24-0400 SaO2% (BldA) [Mass fraction] 97 % Mari Marvinniko NET TECHNICAL ARCHITECT.BIOMATHEMATICIAN Work Phone: [facility] 12-03-2023 14:18-0400 Body mass index (BMI) [Ratio] 40.21 kg/m2 Marilyn Piña NET TECHNICAL ARCHITECT.CNM Work Phone: [facility] 12-03-2023 14:18-0400 Body weight 102.97 kg Marilyn Plotts NET TECHNICAL ARCHITECT.CNM Work Phone: [facility] 12-03-2023 14:18-0400 Diastolic blood pressure 60 mm[Hg] Marilyn Plotts NET TECHNICAL ARCHITECT.CNM Work Phone: [facility] 12-03-2023 14:18-0400 Systolic blood pressure 108 mm[Hg] Marilyn Plotts NET TECHNICAL ARCHITECT.CNM Work Phone: [facility] 11-05-2023 15:26-0400 Body mass index (BMI) [Ratio] 40.07 kg/m2 Rebel Sneed NET TECHNICAL ARCHITECT.BIOMATHEMATICIAN Work Phone: [facility] 11-05-2023 15:26-0400 Body temperature 97.9 [degF] Rebel Sneed NET TECHNICAL ARCHITECT.BIOMATHEMATICIAN Work Phone: [facility] 11-05-2023 15:26-0400 Body weight 102.6 kg Rebel Sneed NET TECHNICAL ARCHITECT.BIOMATHEMATICIAN Work Phone: [facility] 11-05-2023 15:26-0400 Diastolic blood pressure 76 mm[Hg] Rebel Sneed NET TECHNICAL ARCHITECT.BIOMATHEMATICIAN Work Phone: [facility] 11-05-2023 15:26-0400 Heart rate 82 /min Rebel Sneed NET TECHNICAL ARCHITECT.BIOMATHEMATICIAN Work Phone: [facility] 11-05-2023 15:26-0400 Respiratory rate 16 /min Rebel Cunninghamjustino NET TECHNICAL ARCHITECT.BIOMATHEMATICIAN Work Phone: [facility] 11-05-2023 15:26-0400 SaO2% (BldA) [Mass fraction] 97 % Rebel Sneed NET TECHNICAL ARCHITECT.BIOMATHEMATICIAN Work Phone: [facility] 11-05-2023 15:26-0400 Systolic blood pressure 146 mm[Hg] Rebel Sneed NET TECHNICAL ARCHITECT.BIOMATHEMATICIAN Work Phone: [facility] 10-06-2023 09:53-0400 Body mass index (BMI) [Ratio] 40.42 kg/m2 Rula Joseph APRN.BIOMATHEMATICIAN Work Phone: [facility] 10-06-2023 09:53-0400 Body temperature 98.49 [degF] Rula Joseph NET TECHNICAL ARCHITECT.BIOMATHEMATICIAN Work Phone: [facility] 10-06-2023 09:53-0400 Body weight 103.5 kg Rula Joseph APRN.BIOMATHEMATICIAN Work Phone: [facility] 10-06-2023 09:53-0400 Diastolic blood pressure 82 mm[Hg] Rula Joseph NET TECHNICAL ARCHITECT.BIOMATHEMATICIAN Work Phone: [facility] 10-06-2023 09:53-0400 Heart rate 114 /min Rula Joseph APRN.BIOMATHEMATICIAN Work Phone: [facility] 10-06-2023 09:53-0400 Respiratory rate 18 /min Rula Elton WRIGHTN.BIOMATHEMATICIAN Work Phone: [facility] 10-06-2023 09:53-0400 SaO2% (BldA) [Mass fraction] 98 % Rula Joseph APRN.BIOMATHEMATICIAN Work Phone: [facility] 10-06-2023 09:53-0400 Systolic blood pressure 126 mm[Hg] Rula Joseph NET TECHNICAL ARCHITECT.BIOMATHEMATICIAN Work Phone: [facility] 09-21-2023 19:18-0400 Body temperature 98 [degF] BUTTER FAT TESTER-C Jack Priest BUTTER FAT TESTER Work Phone: [facility] 09-21-2023 19:18-0400 Diastolic blood pressure 72 mm[Hg] BUTTER FAT TESTER-Naresh Priest BUTTER FAT TESTER Work Phone: [facility] 09-21-2023 19:18-0400 Heart rate 61 /min BUTTER FAT TESTER-C Jack Priest BUTTER FAT TESTER Work Phone: [facility] 09-21-2023 19:18-0400 Respiratory rate 16 /min BUTTER FAT TESTER-C Jack Priest BUTTER FAT TESTER Work Phone: [facility] 09-21-2023 19:18-0400 SaO2% (BldA) [Mass fraction] 99 % BUTTER FAT TESTER-Naresh Priest BUTTER FAT TESTER Work Phone: [facility] 09-21-2023 19:18-0400 Systolic blood pressure 122 mm[Hg] BUTTER FAT TESTER-Naresh Priest BUTTER FAT TESTER Work Phone: [facility] 09-21-2023 16:34-0400 Body height 160.02 cm BUTTER FAT TESTER-Naresh Priest BUTTER FAT TESTER Work Phone: [facility] 09-21-2023 16:34-0400 Body mass index (BMI) [Ratio] 41.5 kg/m2 BUTTER FAT TESTER-C Jack Cem BUTTER FAT TESTER Work Phone: [facility] 09-21-2023 16:34-0400 Body weight 106.41 kg BUTTER FAT TESTERCuate Priest BUTTER FAT TESTER Work Phone: [facility] 09-14-2023 07:50-0400 Diastolic blood pressure 58 mm[Hg] Prakash Holland MD Work Phone: [facility] 09-14-2023 07:50-0400 Heart rate 83 /min Prakash Holland MD Work Phone: [facility] 09-14-2023 07:50-0400 Respiratory rate 16 /min Prakash Holland MD Work Phone: [facility] 09-14-2023 07:50-0400 SaO2% (BldA) [Mass fraction] 95 % Prakash Holland MD Work Phone: [facility] 09-14-2023 07:50-0400 Systolic blood pressure 103 mm[Hg] Prakash Holland MD Work Phone: [facility] 09-14-2023 07:34-0400 Body temperature 97.2 [degF] Prakash Holland MD Work Phone: [facility] 09-14-2023 07:03-0400 Body height 160 cm Prakash Holland MD Work Phone: [facility] 09-14-2023 07:03-0400 Body mass index (BMI) [Ratio] 40.39 kg/m2 Prakash Holland MD Work Phone: [facility] 09-14-2023 07:03-0400 Body weight 103.42 kg Prakash Holland MD Work Phone: [facility] 08-06-2023 10:50-0400 Body temperature 97.59 [degF] Aury Tristan DO Work Phone: [facility] 08-06-2023 10:50-0400 Body weight 103.74 kg Aury Tristan DO Work Phone: [facility] 08-06-2023 10:50-0400 Diastolic blood pressure 67 mm[Hg] Ahmed Elronnay DO Work Phone: [facility] 08-06-2023 10:50-0400 Heart rate 90 /min Aury Alcarazy DO Work Phone: [facility] 08-06-2023 10:50-0400 Systolic blood pressure 116 mm[Hg] Elroymed Kierany DO Work Phone: [facility] 08-03-2023 10:58-0400 Body temperature 97.81 [degF] Orlando Nav NET TECHNICAL ARCHITECT.BIOMATHEMATICIAN Work Phone: [facility] 08-03-2023 10:58-0400 Body weight 104.2 kg Orlandobridgett Chopra NET TECHNICAL ARCHITECT.BIOMATHEMATICIAN Work Phone: [facility] 08-03-2023 10:58-0400 Diastolic blood pressure 79 mm[Hg] Orlando Nav NET TECHNICAL ARCHITECT.BIOMATHEMATICIAN Work Phone: [facility] 08-03-2023 10:58-0400 Heart rate 103 /min Orlando Nav NET TECHNICAL ARCHITECT.BIOMATHEMATICIAN Work Phone: [facility] 08-03-2023 10:58-0400 Respiratory rate 20 /min Orlando Chopra NET TECHNICAL ARCHITECT.BIOMATHEMATICIAN Work Phone: [facility] 08-03-2023 10:58-0400 SaO2% (BldA) [Mass fraction] 100 % Orlando Nav NET TECHNICAL ARCHITECT.BIOMATHEMATICIAN Work Phone: [facility] 08-03-2023 10:58-0400 Systolic blood pressure 134 mm[Hg] Orlando Nav NET TECHNICAL ARCHITECT.BIOMATHEMATICIAN Work Phone: [facility] 07-30-2023 08:50-0400 Body temperature 98.1 [degF] LENA Priest NP Work Phone: [facility] 07-30-2023 08:50-0400 Diastolic blood pressure 76 mm[Hg] BUTTER FAT TESTER-C Jack Priest BUTTER FAT TESTER Work Phone: [facility] 07-30-2023 08:50-0400 Heart rate 113 /min BUTTER FAT TESTER-C Jack Priest BUTTER FAT TESTER Work Phone: [facility] 07-30-2023 08:50-0400 Respiratory rate 12 /min BUTTER FAT TESTER-C Jack Priest BUTTER FAT TESTER Work Phone: [facility] 07-30-2023 08:50-0400 SaO2% (BldA) [Mass fraction] 99 % BUTTER FAT TESTER-C Jack Priest BUTTER FAT TESTER Work Phone: [facility] 07-30-2023 08:50-0400 Systolic blood pressure 114 mm[Hg] BUTTER FAT TESTER-C Jakc Priest BUTTER FAT TESTER Work Phone: [facility] 07-30-2023 08:43-0400 Body height 157.48 cm BUTTER FAT TESTER-C Jack Priest BUTTER FAT TESTER Work Phone: [facility] 07-28-2023 14:53-0500 Body temperature 97.81 [degF] Teofilo Coreas MD Work Phone: [facility] 07-28-2023 14:53-0500 Body weight 104 kg Teofilo Coreas MD Work Phone: [facility] 07-28-2023 14:53-0500 Diastolic blood pressure 76 mm[Hg] Teofilo Coreas MD Work Phone: [facility] 07-28-2023 14:53-0500 Heart rate 88 /min Teofilo Coreas MD Work Phone: [facility] 07-28-2023 14:53-0500 Respiratory rate 18 /min Teofilo Coreas MD Work Phone: [facility] 07-28-2023 14:53-0500 SaO2% (BldA) [Mass fraction] 99 % Teofilo Coreas MD Work Phone: [facility] 07-28-2023 14:53-0500 Systolic blood pressure 113 mm[Hg] Teofilo Coreas MD Work Phone: [facility] 07-19-2023 10:10-0500 Body height 160 cm Yuni Guillen MD Work Phone: [facility] 07-19-2023 10:10-0500 Body weight 105.23 kg Yuni Guillen MD Work Phone: [facility] 04-17-2023 09:15-0500 Body temperature 98.6 [degF] Lul Ciuni NET TECHNICAL ARCHITECT.BIOMATHEMATICIAN Work Phone: [facility] 04-17-2023 09:15-0500 Body weight 104.33 kg Lul Ciuni NET TECHNICAL ARCHITECT.BIOMATHEMATICIAN Work Phone: [facility] 04-17-2023 09:15-0500 Diastolic blood pressure 82 mm[Hg] Lul Ciuni NET TECHNICAL ARCHITECT.BIOMATHEMATICIAN Work Phone: [facility] 04-17-2023 09:15-0500 Heart rate 99 /min Lul Ciuni NET TECHNICAL ARCHITECT.BIOMATHEMATICIAN Work Phone: [facility] 04-17-2023 09:15-0500 Respiratory rate 16 /min Lul Ciuni NET TECHNICAL ARCHITECT.BIOMATHEMATICIAN Work Phone: [facility] 04-17-2023 09:15-0500 SaO2% (BldA) [Mass fraction] 96 % Lul Ciuni NET TECHNICAL ARCHITECT.BIOMATHEMATICIAN Work Phone: [facility] 04-17-2023 09:15-0500 Systolic blood pressure 131 mm[Hg] Lul Ciuni NET TECHNICAL ARCHITECT.BIOMATHEMATICIAN Work Phone: [facility] 04-04-2023 11:01-0500 Body temperature 98.2 [degF] Jack Alvarez MD Work Phone: [facility] 04-04-2023 11:01-0500 Body weight 104.6 kg Jack Alvarez MD Work Phone: [facility] 04-04-2023 11:01-0500 Diastolic blood pressure 76 mm[Hg] Jack Alvarez MD Work Phone: [facility] 04-04-2023 11:01-0500 Heart rate 94 /min Jack Alvarez MD Work Phone: [facility] 04-04-2023 11:01-0500 Respiratory rate 18 /min Jack Alvarez MD Work Phone: [facility] 04-04-2023 11:01-0500 SaO2% (BldA) [Mass fraction] 98 % Jack Alvarez MD Work Phone: [facility] 04-04-2023 11:01-0500 Systolic blood pressure 110 mm[Hg] Jack Alvarez MD Work Phone: [facility] 03-18-2023 16:24-0400 Body height 157.48 cm No Primary Care Physician [facility] 03-18-2023 16:24-0400 Body mass index (BMI) [Ratio] 42.3 kg/m2 No Primary Care Physician [facility] 03-18-2023 16:24-0400 Body temperature 97.7 [degF] No Primary Care Physician [facility] 03-18-2023 16:24-0400 Body weight 105 kg No Primary Care Physician [facility] 03-18-2023 16:24-0400 Diastolic blood pressure 85 mm[Hg] No Primary Care Physician [facility] 03-18-2023 16:24-0400 Heart rate 100 /min No Primary Care Physician [facility] 03-18-2023 16:24-0400 Respiratory rate 18 /min No Primary Care Physician [facility] 03-18-2023 16:24-0400 SaO2% (BldA) [Mass fraction] 100 % No Primary Care Physician [facility] 03-18-2023 16:24-0400 Systolic blood pressure 124 mm[Hg] No Primary Care Physician [facility] 03-09-2023 19:45-0400 Diastolic blood pressure 69 mm[Hg] No Primary Care Physician [facility] 03-09-2023 19:45-0400 Heart rate 90 /min No Primary Care Physician [facility] 03-09-2023 19:45-0400 Respiratory rate 18 /min No Primary Care Physician [facility] 03-09-2023 19:45-0400 SaO2% (BldA) [Mass fraction] 98 % No Primary Care Physician [facility] 03-09-2023 19:45-0400 Systolic blood pressure 122 mm[Hg] No Primary Care Physician [facility] 03-09-2023 18:10-0400 Body height 157.48 cm No Primary Care Physician [facility] 03-09-2023 18:10-0400 Body mass index (BMI) [Ratio] 42 kg/m2 No Primary Care Physician [facility] 03-09-2023 18:10-0400 Body temperature 97 [degF] No Primary Care Physician [facility] 03-09-2023 18:10-0400 Body weight 104.14 kg No Primary Care Physician [facility] 03-09-2023 17:12-0400 Body temperature 98.8 [degF] No Primary Care Physician [facility] 03-09-2023 17:12-0400 Diastolic blood pressure 86 mm[Hg] No Primary Care Physician [facility] 03-09-2023 17:12-0400 Heart rate 90 /min No Primary Care Physician [facility] 03-09-2023 17:12-0400 Respiratory rate 15 /min No Primary Care Physician [facility] 03-09-2023 17:12-0400 SaO2% (BldA) [Mass fraction] 98 % No Primary Care Physician [facility] 03-09-2023 17:12-0400 Systolic blood pressure 120 mm[Hg] No Primary Care Physician [facility] 02-24-2023 20:53-0400 Body height 157.48 cm No Primary Care Physician [facility] 02-24-2023 20:53-0400 Body mass index (BMI) [Ratio] 41.8 kg/m2 No Primary Care Physician [facility] 02-24-2023 20:53-0400 Body temperature 97.1 [degF] No Primary Care Physician [facility] 02-24-2023 20:53-0400 Body weight 103.87 kg No Primary Care Physician [facility] 02-24-2023 20:53-0400 Diastolic blood pressure 93 mm[Hg] No Primary Care Physician [facility] 02-24-2023 20:53-0400 Heart rate 104 /min No Primary Care Physician [facility] 02-24-2023 20:53-0400 Respiratory rate 15 /min No Primary Care Physician [facility] 02-24-2023 20:53-0400 SaO2% (BldA) [Mass fraction] 99 % No Primary Care Physician [facility] 02-24-2023 20:53-0400 Systolic blood pressure 141 mm[Hg] No Primary Care Physician [facility] 01-18-2023 08:48-0400 Body mass index (BMI) [Ratio] 43.1 kg/m2 No Primary Care Physician [facility] 01-18-2023 08:48-0400 Body weight 107.04 kg No Primary Care Physician [facility] 01-17-2023 08:23-0400 Body temperature 98.4 [degF] No Primary Care Physician [facility] 01-17-2023 08:23-0400 Diastolic blood pressure 78 mm[Hg] No Primary Care Physician [facility] 01-17-2023 08:23-0400 Heart rate 74 /min No Primary Care Physician [facility] 01-17-2023 08:23-0400 Respiratory rate 16 /min No Primary Care Physician [facility] 01-17-2023 08:23-0400 Systolic blood pressure 112 mm[Hg] No Primary Care Physician [facility] 01-03-2023 12:07-0400 Body temperature 99.3 [degF] Out [facility] 01-03-2023 12:07-0400 Diastolic blood pressure 72 mm[Hg] Out [facility] Doctor [facility] 01-03-2023 12:07-0400 Heart rate 68 /min [facility] 01-03-2023 12:07-0400 Respiratory rate 14 /min Out [facility] 01-03-2023 12:07-0400 SaO2% (BldA) [Mass fraction] 98 % Out [facility] Doctor [facility] 01-03-2023 12:07-0400 Systolic blood pressure 110 mm[Hg] Out [facility] Doctor [facility] 12-27-2022 06:46-0400 Body height 157.48 cm [facility] 12-27-2022 06:46-0400 Body mass index (BMI) [Ratio] 43.1 kg/m2 Out [facility] 12-27-2022 06:46-0400 Body temperature 99.3 [degF] Out [facility] 12-27-2022 06:46-0400 Body weight 107.04 kg Out [facility] 12-27-2022 06:46-0400 Diastolic blood pressure 70 mm[Hg] Out [facility] 12-27-2022 06:46-0400 Heart rate 83 /min [facility] 12-27-2022 06:46-0400 Respiratory rate 14 /min Out [facility] 12-27-2022 06:46-0400 SaO2% (BldA) [Mass fraction] 94 % Out [facility] 12-27-2022 06:46-0400 Systolic blood pressure 115 mm[Hg] Out [facility] 12-13-2022 06:12-0400 Body temperature 98.6 [degF] Out [facility] 12-13-2022 06:12-0400 Diastolic blood pressure 68 mm[Hg] Out [facility] 12-13-2022 06:12-0400 Heart rate 107 /min [facility] 12-13-2022 06:12-0400 Respiratory rate 16 /min Out [facility] 12-13-2022 06:12-0400 SaO2% (BldA) [Mass fraction] 99 % Out [facility] 12-13-2022 06:12-0400 Systolic blood pressure 127 mm[Hg] Out [facility] 12-06-2022 15:46-0400 Body height 160.02 cm [facility] 12-06-2022 15:46-0400 Body mass index (BMI) [Ratio] 40.4 kg/m2 Out [facility] 12-06-2022 15:46-0400 Body temperature 97.7 [degF] Out [facility] 12-06-2022 15:46-0400 Body weight 103.41 kg [facility] 12-06-2022 15:46-0400 Heart rate 102 /min [facility] 12-06-2022 15:46-0400 SaO2% (BldA) [Mass fraction] 98 % Out [facility] 12-01-2022 17:17-0400 Body temperature 98.2 [degF] Out [facility] 12-01-2022 17:17-0400 Diastolic blood pressure 78 mm[Hg] Out [facility] 12-01-2022 17:17-0400 Heart rate 102 /min [facility] 12-01-2022 17:17-0400 Respiratory rate 14 /min Out [facility] 12-01-2022 17:17-0400 SaO2% (BldA) [Mass fraction] 96 % Out [facility] 12-01-2022 17:17-0400 Systolic blood pressure 138 mm[Hg] Out [facility] 11-14-2022 12:42-0400 Body height 160.02 cm Out [facility] 11-14-2022 12:42-0400 Body temperature 97.4 [degF] Out [facility] 11-14-2022 12:42-0400 Diastolic blood pressure 60 mm[Hg] Out [facility] 11-14-2022 12:42-0400 Heart rate 97 /min [facility] 11-14-2022 12:42-0400 Respiratory rate 16 /min Out [facility] 11-14-2022 12:42-0400 SaO2% (BldA) [Mass fraction] 97 % Out [facility] 11-14-2022 12:42-0400 Systolic blood pressure 102 mm[Hg] Out [facility] 10-14-2022 20:28-0400 Body height 157.48 cm [facility] 10-14-2022 20:28-0400 Body mass index (BMI) [Ratio] 41 kg/m2 Out [facility] 10-14-2022 20:28-0400 Body temperature 97.8 [degF] Out [facility] 10-14-2022 20:28-0400 Body weight 101.69 kg Out [facility] 10-14-2022 20:28-0400 Diastolic blood pressure 73 mm[Hg] Out [facility] 10-14-2022 20:28-0400 Heart rate 99 /min [facility] 10-14-2022 20:28-0400 Respiratory rate 16 /min Out [facility] 10-14-2022 20:28-0400 SaO2% (BldA) [Mass fraction] 98 % Out [facility] 10-14-2022 20:28-0400 Systolic blood pressure 129 mm[Hg] Out [facility] 10-06-2022 22:23-0400 Heart rate 97 /min [facility] 10-06-2022 22:23-0400 Respiratory rate 18 /min Out [facility] 10-06-2022 22:23-0400 SaO2% (BldA) [Mass fraction] 98 % Out [facility] 10-06-2022 20:13-0400 Body mass index (BMI) [Ratio] 39.6 kg/m2 Out [facility] 10-06-2022 20:13-0400 Body temperature 97 [degF] Out [facility] 10-06-2022 20:13-0400 Body weight 101.6 kg Out [facility] 10-06-2022 20:13-0400 Diastolic blood pressure 100 mm[Hg] Out [facility] 10-06-2022 20:13-0400 Systolic blood pressure 135 mm[Hg] Out [facility] 09-22-2022 16:50-0400 Body height 160.02 cm Out [facility] 09-22-2022 16:50-0400 Body mass index (BMI) [Ratio] 39.1 kg/m2 Out [facility] 09-22-2022 16:50-0400 Body temperature 97.5 [degF] Out [facility] 09-22-2022 16:50-0400 Body weight 100.24 kg Out [facility] 09-22-2022 16:50-0400 Diastolic blood pressure 90 mm[Hg] Out [facility] 09-22-2022 16:50-0400 Heart rate 95 /min [facility] 09-22-2022 16:50-0400 Respiratory rate 18 /min Out [facility] 09-22-2022 16:50-0400 SaO2% (BldA) [Mass fraction] 100 % [facility] 09-22-2022 16:50-0400 Systolic blood pressure 126 mm[Hg] [facility] 05-16-2022 18:35-0500 Body height 160.02 cm [facility] Work Phone: 05-16-2022 18:35-0500 Body mass index (BMI) [Ratio] 40.9 kg/m2 [facility] Work Phone: 05-16-2022 18:35-0500 Body temperature 96.9 [degF] [facility] Work Phone: 05-16-2022 18:35-0500 Body weight 104.77 kg [facility] Work Phone: 05-16-2022 18:35-0500 Diastolic blood pressure 87 mm[Hg] [facility] Work Phone: 05-16-2022 18:35-0500 Heart rate 96 /min [facility] Work Phone: 05-16-2022 18:35-0500 Respiratory rate 15 /min [facility] Work Phone: 05-16-2022 18:35-0500 SaO2% (BldA) [Mass fraction] 99 % [facility] Work Phone: 05-16-2022 18:35-0500 Systolic blood pressure 130 mm[Hg] [facility] Work Phone: Encounters Encounter Date Encounter Type Care Provider Facility Start: 03-30-2025 End: 03-30-2025 ambulatory Maverick Erickson Facility:[facility] Start: 03-27-2025 End: 03-27-2025 ambulatory JACK PRIEST APRN-BIOMATHEMATICIAN Facility:[facility] Start: 03-27-2025 End: 03-27-2025 Patient encounter procedure JACK PRIEST NET TECHNICAL ARCHITECT-BIOMATHEMATICIAN [facility] Start: 03-26-2025 ambulatory Kole Yeyo Salas Facility :[facility] Start: 03-11-2025 End: 03-11-2025 Office outpatient new 30 minutes Jacquelin Anderson MD Work Phone: [facility] Comment on above: Chronic pelvic pain in female (Primary Dx); High-tone pelvic floor dysfunction Start: 03-11-2025 End: 03-11-2025 ambulatory [facility] Start: 03-08-2025 Visit out of hours Jonelle patrick MD Work Phone: [employer] [facility] Work Phone: Start: 03-06-2025 In-person encounter Jonelle paige MD Work Phone: [facility] Work Phone: Start: 02-23-2025 End: 02-23-2025 ambulatory JACK PRIEST NET TECHNICAL ARCHITECT-BIOMATHEMATICIAN Facility:[facility] Start: 02-23-2025 End: 02-23-2025 Patient encounter procedure JACK PRIEST NET TECHNICAL ARCHITECT-BIOMATHEMATICIAN [facility] Start: 02-20-2025 ambulatory Lenora Lopez Facility:[facility] Start: 02-18-2025 End: 03-10-2025 ambulatory Lenora Lopez Facility:[facility] Start: 02-18-2025 End: 02-18-2025 ambulatory Morena Athy BUTTER FAT TESTER Facility:[facility] Start: 02-10-2025 ambulatory JACK WADE NET TECHNICAL ARCHITECT-BIOMATHEMATICIAN Facility:[facility] Start: 02-09-2025 End: 02-09-2025 ambulatory JACK PRIEST NET TECHNICAL ARCHITECT-BIOMATHEMATICIAN Facility:[facility] Start: 02-09-2025 End: 02-09-2025 Patient encounter procedure JACK PRIEST NET TECHNICAL ARCHITECT-BIOMATHEMATICIAN [facility] Start: 01-30-2025 ambulatory Lenoraleonor Lopez Facility:[facility] Start: 01-26-2025 End: 02-17-2025 ambulatory Lenora Lopez Facility:[facility] Start: 01-14-2025 End: 01-14-2025 ambulatory Marquita Chavez Facility:[facility] Start: 12-30-2024 End: 12-30-2024 ambulatory JACK PRIEST NET TECHNICAL ARCHITECT-BIOMATHEMATICIAN Facility:[facility] Start: 12-30-2024 End: 12-30-2024 Patient encounter procedure JACK PRIEST NET TECHNICAL ARCHITECT-BIOMATHEMATICIAN [facility] Start: 12-09-2024 End: 12-09-2024 ambulatory Jack Priest BUTTER FAT TESTER Facility:[facility] Start: 11-26-2024 End: 11-26-2024 ambulatory JACK PRIEST NET TECHNICAL ARCHITECT-BIOMATHEMATICIAN Facility:[facility] Start: 11-26-2024 End: 11-26-2024 Patient encounter procedure JACK PRIEST NET TECHNICAL ARCHITECT-BIOMATHEMATICIAN [facility] Start: 11-26-2024 End: 11-26-2024 ambulatory Marquita Chavez Facility:[facility] Start: 11-20-2024 ambulatory Maverick Erickson Facility :[facility] Start: 11-14-2024 End: 11-14-2024 ambulatory [place] Rigoberto Facility:[facility] Start: 11-10-2024 End: 11-10-2024 [facility] Start: 10-29-2024 End: 10-29-2024 Emergency department patient visit Sharan Mckeon Facility:[facility] Start: 10-27-2024 End: 10-27-2024 ambulatory JACK Subramanian CEM NET TECHNICAL ARCHITECT-BIOMATHEMATICIAN Facility:[facility] Start: 10-27-2024 End: 10-27-2024 Patient encounter procedure JACK PRIEST NET TECHNICAL ARCHITECT-BIOMATHEMATICIAN [facility] Start: 10-23-2024 End: 10-23-2024 ambulatory JACK Subramanian CEM NET TECHNICAL ARCHITECT-BIOMATHEMATICIAN Facility:[facility] Start: 10-23-2024 End: 10-23-2024 Patient encounter procedure JACK PRIEST NET TECHNICAL ARCHITECT-BIOMATHEMATICIAN [facility] Start: 10-18-2024 End: 10-18-2024 ambulatory JACK Moris CEM NET TECHNICAL ARCHITECT-BIOMATHEMATICIAN Facility:[facility] Start: 10-09-2024 End: 10-09-2024 ambulatory LUSUSANNEYuri ALDAIR WALTERS Facility:[facility] Start: 09-23-2024 End: 09-23-2024 Telephone encounter Malachi Khalil MD Work Phone: Endocrinology Comment on above: Medication Preauthor ization (semaglutide, weight loss, (WEGOVY) 0.25 mg/0.5 mL pen injector) Start: 09-22-2024 End: 09-22-2024 Refill Malachi Khalil MD Work Phone: Endocrinology Comment on above: Refill Request Start: 09-18-2024 ambulatory Maverick Erickson Facility :[facility] Start: 09-16-2024 End: 09-16-2024 Nursing evaluation of patient and report Abdi Chester RN Work Phone: Endocrinology Comment on above: Prediabetes Start: 09-16-2024 End: 09-16-2024 ambulatory PIERCE PROCTOR Facility:[facility] Start: 09-15-2024 End: 09-15-2024 ambulatory SELF Facility:[facility] Start: 09-15-2024 End: 09-15-2024 Patient encounter procedure [...] Start: 09-10-2024 End: 09-10-2024 ambulatory JACK PRIEST APRN-BIOMATHEMATICIAN Facility:[facility] Start: 09-10-2024 End: 09-10-2024 Patient encounter procedure JACK PRIEST NET TECHNICAL ARCHITECT-BIOMATHEMATICIAN [facility] Start: 09-02-2024 End: 09-02-2024 ambulatory [facility] Facility:[facility] Start: 09-01-2024 End: 09-01-2024 E-mail encounter from caregiver Kraig Walters MD Work Phone: Infectious Disease Start: 09-01-2024 End: 01-13-2025 ambulatory Kraig Walters MD Work Phone: Infectious Disease Comment on above: Response to your que juanjo Walters Start: 09-01-2024 End: 01-13-2025 Manual pelvic examination JACK PRIEST NET TECHNICAL ARCHITECT-BIOMATHEMATICIAN [facility] Start: 08-29-2024 End: 10-29-2024 Follow-up encounter Kraig Walters MD Work Phone: MM Provider Adult Start: 08-29-2024 End: 08-29-2024 ambulatory JACK PRIEST NET TECHNICAL ARCHITECT-BIOMATHEMATICIAN Facility:[facility] Start: 08-27-2024 End: 08-27-2024 ambulatory DINORAH JOE Facility:[facility] Start: 08-26-2024 End: 08-26-2024 ambulatory Marquita Chavez Facility:[facility] Start: 08-25-2024 End: 08-25-2024 Telephone encounter Kraig Walters MD Work Phone: MM Provider Adult Start: 08-21-2024 End: 08-21-2024 Telephone encounter Jack Priest BIOMATHEMATICIAN Work Phone: [facility] Start: 08-20-2024 End: 08-20-2024 ambulatory DINORAH JOE Facility:[facility] Start: 08-15-2024 End: 08-15-2024 ambulatory Mavericktawanna Erickson Facility:[facility] Start: 08-13-2024 End: 08-13-2024 Telephone encounter Kraig Walters MD Work Phone: Infectious Disease Start: 08-13-2024 End: 08-13-2024 ambulatory JACK PRIEST Facility:[facility] Start: 08-11-2024 End: 08-11-2024 ambulatory Marquita Scott Facility:[facility] Start: 08-11-2024 End: 08-11-2024 ambulatory Marquita Chavez Facility:[facility] Start: 08-08-2024 End: 08-08-2024 ambulatory Marquita Scott Facility:[facility] Start: 08-07-2024 End: 08-07-2024 Follow-up encounter Skye Littlejohn MD Work Phone: Infectious Disease Start: 08-06-2024 End: 08-06-2024 ambulatory SKYE LITTLEJOHN Facility:[facility] Start: 08-05-2024 End: 08-06-2024 ambulatory Kraig Walters MD Work Phone: Infectious Disease Comment on above: Bloodwork weekly Start: 08-04-2024 ambulatory YASMINE Tipton NET TECHNICAL ARCHITECT-BIOMATHEMATICIAN Facility:[facility] Start: 08-01-2024 End: 10-01-2024 Follow-up encounter Kevin Olson MD Work Phone: Pulmonology [facility] Start: 07-31-2024 End: 07-31-2024 E-mail encounter [...] Start: 07-30-2024 End: 07-30-2024 ambulatory KRAIG WALTERS Facility:[facility] Start: 07-30-2024 End: 07-30-2024 Patient encounter procedure Kraig Walters MD Work Phone: Infectious Disease Comment on above: 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); Histoplasmosis; Fever, unspecified; Drug interaction Start: 07-30-2024 End: 07-30-2024 ambulatory KRAIG WALTERS Facility:[facility] Start: 07-28-2024 End: 07-28-2024 Telephone encounter Danica Ugarte RN Pulmonary Medicine Comment on above: Patient Update Start: 07-22-2024 End: 07-23-2024 Telephone encounter Che Hardy MD Work Phone: Pulmonary Medicine Comment on above: [employer] - O ther Start: 07-21-2024 End: 07-29-2024 Evaluation and management of inpatient JOSE CEDILLO MD FACP Facility:[facility] Start: 07-20-2024 End: 07-20-2024 Emergency department patient visit DARIAN NAVARRO MD [facility] Start: 07-16-2024 End: 07-17-2024 Emergency department patient visit Harvinder Rossi Facility:[facility] Start: 07-14-2024 End: 07-14-2024 Patient encounter procedure JACK A CEM WRIGHTN-BIOMATHEMATICIAN [facility] Start: 07-14-2024 End: 07-14-2024 Telemedicine consultation with patient Kevin Olson MD Work Phone: Pulmonary Medicine Start: 07-14-2024 End: 07-14-2024 ambulatory Kevin Olson MD Work Phone: Pulmonary Medicine Comment on above: Histoplasmosis (Prim jade Dx); Thoracic lymphadenopathy; Chronic cough; Pulmonary nodules; Liver disease; Obesity, Class III, BMI 40-49.9 (morbid obesity) (HCC) Start: 07-10-2024 End: 07-10-2024 ambulatory Marquita Chavez Facility:[facility] Start: 07-10-2024 End: 12-16-2024 Telephone encounter Mari Novak APRN.BIOMATHEMATICIAN Work Phone: Neurology [facility] Start: 07-09-2024 End: 07-11-2024 Telephone encounter Lenora Dow MD Work Phone: [facility] Provider Adult Critical Care Start: 07-09-2024 End: 07-10-2024 ambulatory CHE HARDY Facility:[facility] Start: 07-07-2024 End: 07-07-2024 ambulatory Smith DAILEY Facility:[facility] Start: 07-02-2024 End: 07-02-2024 ambulatory SKYE GIRALDO Facility:[facility] Start: 07-02-2024 Encounter for other preprocedural examination JACK PRIEST [facility] Start: 07-02-2024 End: 07-02-2024 ambulatory LENORA DOW Facility:[facility] Start: 07-02-2024 End: 07-02-2024 Office outpatient visit 25 minutes Lenora Dow MD Work Phone: Pulmonology [facility] Comment on above: Lung nodules (Primar y Dx); Abnormal chest CT; Thoracic lymphadenopathy Start: 07-02-2024 End: 07-02-2024 Patient encounter procedure Skye Giraldo MD Work Phone: Pulmonary Medicine Comment on above: Bronchoscopy Schedul ing (Initial Bronch Request ) Start: 07-02-2024 End: 07-02-2024 Patient encounter status Skye Giraldo MD Work Phone: [facility] Start: 06-30-2024 End: 06-30-2024 ambulatory Merry MAGDALENO Pulmonary Medicine Start: 06-26-2024 End: 06-26-2024 ambulatory Aury Tristan Facility:[facility] Start: 06-26-2024 End: 06-26-2024 [facility] Start: 06-24-2024 End: 06-24-2024 ambulatory [facility] Facility:[facility] Start: 06-24-2024 End: 06-24-2024 ambulatory [facility] Facility:[facility] Start: 06-12-2024 End: 06-27-2024 ambulatory Lul Carranaz NET TECHNICAL ARCHITECT.BIOMATHEMATICIAN Work Phone: Pulmonary Medicine Comment on above: Those lung nodules a ppt Start: 06-11-2024 End: 06-11-2024 ambulatory JACK PRIEST NET TECHNICAL ARCHITECT-BIOMATHEMATICIAN Facility:[facility] Start: 06-11-2024 End: 06-11-2024 Patient encounter procedure JACK PRIEST NET TECHNICAL ARCHITECT-BIOMATHEMATICIAN [facility] Start: 06-09-2024 End: 06-09-2024 ambulatory Marquita Chavez Facility:[facility] Start: 06-09-2024 End: 06-09-2024 ambulatory Marquita Chavez Facility:[facility] Start: 05-26-2024 End: 05-26-2024 ambulatory JACK PRIEST NET TECHNICAL ARCHITECT-BIOMATHEMATICIAN Facility:[facility] Start: 05-26-2024 End: 05-26-2024 Patient encounter procedure JACK PRIEST NET TECHNICAL ARCHITECT-BIOMATHEMATICIAN [facility] Start: 05-22-2024 End: 05-22-2024 ambulatory JACK PRIEST NET TECHNICAL ARCHITECT-BIOMATHEMATICIAN Facility:[facility] Start: 05-22-2024 End: 05-22-2024 Patient encounter procedure JACK PRIEST NET TECHNICAL ARCHITECT-BIOMATHEMATICIAN [facility] Start: 05-19-2024 End: 05-23-2024 ambulatory JACK PRIEST NET TECHNICAL ARCHITECT-BIOMATHEMATICIAN Facility:[facility] Start: 05-19-2024 End: 05-23-2024 Outreach Lab ARIEL WHITE MD [facility] Start: 05-09-2024 End: 05-09-2024 Emergency department patient visit FREDDY BHARATICHRIS POND [facility] Start: 05-08-2024 End: 05-08-2024 Emergency department patient visit Eugenio Muniz Facility:[facility] Start: 05-04-2024 End: 05-04-2024 Emergency department patient visit JACK PRIEST NET TECHNICAL ARCHITECT-BIOMATHEMATICIAN Facility:[facility] Start: 05-02-2024 End: 05-02-2024 ambulatory JACK PRIEST NET TECHNICAL ARCHITECT-BIOMATHEMATICIAN Facility:[facility] Start: 05-02-2024 End: 05-02-2024 Patient encounter procedure JACK PRIEST NET TECHNICAL ARCHITECT-BIOMATHEMATICIAN [facility] Start: 05-02-2024 End: 05-06-2024 ambulatory JACK PRIEST NET TECHNICAL ARCHITECT-BIOMATHEMATICIAN Facility:[facility] Start: 05-02-2024 End: 05-06-2024 Outreach Lab JACK PRIEST NET TECHNICAL ARCHITECT-BIOMATHEMATICIAN [facility] Start: 04-29-2024 End: 05-03-2024 ambulatory JACK PRIEST NET TECHNICAL ARCHITECT-BIOMATHEMATICIAN Facility:[facility] Start: 04-29-2024 End: 05-03-2024 Outreach Lab ARIEL WHITE MD [facility] Start: 04-25-2024 End: 04-25-2024 ambulatory JACK PRIEST NET TECHNICAL ARCHITECT-BIOMATHEMATICIAN Facility:[facility] Start: 04-25-2024 End: 04-25-2024 Manual pelvic examination ARIEL WHITE MD [facility] Start: 04-22-2024 End: 04-22-2024 ambulatory [facility] Facility:[facility] Start: 04-16-2024 End: 04-16-2024 ambulatory JACK PRIEST NET TECHNICAL ARCHITECT-BIOMATHEMATICIAN Facility:[facility] Start: 04-16-2024 End: 04-16-2024 Patient encounter procedure JACK PRIEST NET TECHNICAL ARCHITECT-BIOMATHEMATICIAN [facility] Start: 04-15-2024 End: 04-15-2024 ambulatory Merry Galvan [facility] Start: 04-15-2024 End: 04-15-2024 Telephone encounter Young Marsh DO Work Phone: Hematology/Oncology Comment on above: Results Start: 04-14-2024 End: 04-14-2024 ambulatory JACK PRIEST Facility:[facility] Start: 04-14-2024 End: 04-14-2024 Office outpatient visit 25 minutes Young Marsh DO Work Phone: Hematology/Oncology Comment on above: Menorrhagia with irr egular cycle (Primary Dx); H/O superficial phlebitis Start: 04-11-2024 End: 04-11-2024 Admission to establishment ARIEL WHITE MD [facility] Start: 04-11-2024 End: 04-11-2024 ambulatory JACK PRIEST NET TECHNICAL ARCHITECT-BIOMATHEMATICIAN Facility:[facility] Start: 04-08-2024 End: 04-08-2024 Telemedicine consultation with patient Lul Carranza NET TECHNICAL ARCHITECT.BIOMATHEMATICIAN Work Phone: Pulmonary Medicine Start: 04-08-2024 End: 04-08-2024 ambulatory Lul Carranza NET TECHNICAL ARCHITECT.BIOMATHEMATICIAN Work Phone: Pulmonary Medicine Comment on above: Lung nodules (Primar y Dx); Chronic cough Start: 04-07-2024 End: 04-07-2024 ambulatory JACK PRIEST Facility:[facility] Start: 04-07-2024 End: 04-07-2024 Subsequent hospital visit by physician [facility] (I-Stat) Work Phone: Cat Scan Comment on above: Lung nodules [R91.8] Start: 04-01-2024 End: 04-01-2024 Telephone encounter Aury Tristan DO Work Phone: Rheumatology Comment on above: PT Eval Start: 03-27-2024 End: 03-27-2024 Patient encounter procedure JACK PRIEST NET TECHNICAL ARCHITECT-BIOMATHEMATICIAN [facility] Start: 03-24-2024 End: 03-24-2024 Patient encounter procedure JACK PRIEST NET TECHNICAL ARCHITECT-BIOMATHEMATICIAN [facility] Start: 03-10-2024 End: 03-12-2024 ambulatory Young Marsh DO Work Phone: Hematology/Oncology Comment on above: Test results Start: 03-07-2024 End: 03-07-2024 Patient encounter procedure Speech [facility] Work Phone: [facility] Comment on above: Dysphagia, unspecifi ed type (Primary Dx) Start: 03-07-2024 End: 03-07-2024 ambulatory Speech [facility] Work Phone: [facility] Start: 03-07-2024 End: 03-07-2024 Subsequent hospital visit by physician Gi/Gu 2 [facility] ([facility]-Stat) Work Phone: Radiology Comment on above: Dysphagia, unspecifi ed type [R13.10] Start: 03-05-2024 End: 03-05-2024 Patient encounter procedure JACK A CEM NET TECHNICAL ARCHITECT-BIOMATHEMATICIAN [facility] Start: 02-28-2024 End: 02-28-2024 Patient encounter procedure JACK A CEM NET TECHNICAL ARCHITECT-BIOMATHEMATICIAN [facility] Start: 02-27-2024 End: 02-27-2024 Patient encounter procedure JACK A CEM NET TECHNICAL ARCHITECT-BIOMATHEMATICIAN [facility] Start: 02-27-2024 End: 02-27-2024 ambulatory JACK PRIEST Facility:[facility] Start: 02-26-2024 End: 02-26-2024 ambulatory JACK PRIEST Facility:[facility] Start: 02-26-2024 End: 02-26-2024 Patient encounter procedure Orlando Nav NET TECHNICAL ARCHITECT.BIOMATHEMATICIAN Work Phone: [facility] Comment on above: Sore throat (Primary Dx) Start: 02-26-2024 ambulatory JACK PRIEST Facility:[facility] Start: 02-22-2024 End: 03-31-2024 Telephone encounter Aury Tristan DO Work Phone: Rheumatology Comment on above: PT Eval Start: 02-20-2024 End: 02-20-2024 Telephone encounter Mary Parsons PA-C Work Phone: Gastroenterology Comment on above: Orders ([facility]/modified barium swallow) Start: 02-20-2024 End: 02-20-2024 ambulatory Young Marsh DO Work Phone: Hematology/Oncology Comment on above: Menorrhagia with irr egular cycle (Primary Dx); Superficial thrombophlebitis of right upper extremity Start: 02-20-2024 End: 02-20-2024 Patient encounter procedure Young Subramanian Dora POND Work Phone: Hematology/Oncology Start: 02-18-2024 End: 02-29-2024 ambulatory Mary Parsons PA-C Work Phone: Gastroenterology Comment on above: Swallowing issues Start: 02-15-2024 End: 02-15-2024 Subsequent hospital visit by physician Donta Layne MD Work Phone: [facility] Comment on above: Family history of br east cancer Start: 02-15-2024 End: 02-15-2024 ambulatory DONTA LAYNE [facility] Start: 02-13-2024 End: 02-13-2024 Chart abstracting Yeny Albright PhD Work Phone: General Surgery BMI PSY Start: 02-12-2024 End: 02-13-2024 ambulatory Mary Parsons PA-C Work Phone: Gastroenterology Comment on above: Swallowing issues Start: 02-06-2024 End: 02-06-2024 ambulatory AURY TRISTAN Facility:[facility] Start: 02-06-2024 End: 02-06-2024 Patient encounter procedure Stacy Segura MD Work Phone: Plastic Surgery Comment on above: Post-operative state (Primary Dx) Chronic low back chris n without sciatica, unspecified back pain laterality (Primary Dx); Thoracic disc herniation; Facet arthropathy Start: 02-05-2024 End: 02-05-2024 Telephone encounter Chris Pacheco MD Work Phone: Hematology/Oncology Start: 02-04-2024 End: 02-04-2024 Orders Only Javi Stevens MD Work Phone: Cardiology Comment on above: Near syncope (Primar y Dx) Start: 02-01-2024 End: 02-01-2024 ambulatory JACK PRIEST Facility:[facility] Start: 02-01-2024 End: 02-01-2024 Patient encounter procedure Jacquelin Nassar NET TECHNICAL ARCHITECT.BIOMATHEMATICIAN Work Phone: [facility] Comment on above: Incisional irritatio n, initial encounter (Primary Dx) Start: 01-28-2024 End: 02-05-2024 Admission to same day surgery center Satcy Segura MD Work Phone: Plastic Surgery Comment on above: Post surgery message thread Start: 01-28-2024 End: 02-05-2024 ambulatory Stacy Segura MD Work Phone: Plastic Surgery Start: 01-25-2024 End: 01-25-2024 Patient encounter procedure Stacy Segura MD Work Phone: Plastic Surgery Comment on above: Post-operative state (Primary Dx); Macromastia Start: 01-25-2024 End: 01-25-2024 ambulatory STACY SEGURA Facility:[facility] Start: 01-24-2024 End: 01-24-2024 Telephone encounter Stacy Segura MD Work Phone: Plastic Surgery Comment on above: Patient Question Patient Update; miss ed call Start: 01-22-2024 ambulatory STACY SEGURA Facili ty:[facility] Start: 01-22-2024 End: 01-22-2024 Subsequent hospital visit by physician Stacy Segura MD Work Phone: Ambulatory Surgery Comment on above: Macromastia [N62] Start: 01-18-2024 End: 01-18-2024 ambulatory STACY SEGURA Facility:[facility] Start: 01-18-2024 Encounter for other preprocedural examination JACK PRIEST [facility] Start: 01-18-2024 End: 01-18-2024 [facility] 1 Pre Anesthesia Comment on above: Pre-op evaluation [...] Start: 01-18-2024 End: 01-18-2024 Preprocedural examination done [address] Work Phone: Start: 01-16-2024 End: 01-16-2024 [...] 01-07-2024 End: 01-07-2024 Patient encounter procedure Tamara Maxwell APRN.BIOMATHEMATICIAN Work Phone: [facility] Comment on above: Midline thoracic kleber k pain, unspecified chronicity (Primary Dx); Lumbar pain; Lumbar spondylosis Start: 01-07-2024 End: 01-07-2024 ambulatory TAMARA MAXWELL Facility:[facility] Start: 01-01-2024 End: 01-01-2024 ambulatory Mary Parsons PA-C Work Phone: Gastroenterology Comment on above: Dysphagia, unspecifi ed type (Primary Dx); Abdominal bloating Start: 01-01-2024 End: 01-01-2024 Telemedicine consultation with patient Mary Parsons PA-C Work Phone: Gastroenterology Start: 01-01-2024 End: 01-01-2024 ambulatory JACK PRIEST APRN-BIOMATHEMATICIAN Facility:[facility] Start: 12-31-2023 End: 12-31-2023 ambulatory STACY SEGURA Facility:[facility] Start: 12-31-2023 End: 12-31-2023 Patient encounter procedure [...] Start: 12-26-2023 End: 12-30-2023 ambulatory JACK PRIEST NET TECHNICAL ARCHITECT-BIOMATHEMATICIAN Facility:[facility] Start: 12-26-2023 End: 12-30-2023 Outreach Lab JACK PRIEST APRN-BIOMATHEMATICIAN [facility] Start: 12-26-2023 Telephone encounter Marisol Hanna MD Work Phone: OB/Gynecology Start: 12-26-2023 End: 12-26-2023 ambulatory JACK PRIEST NET TECHNICAL ARCHITECT-BIOMATHEMATICIAN Facility:[facility] Start: 12-25-2023 ambulatory MARILYN PIÑA Facilit y:[phone] Start: 12-25-2023 End: 12-25-2023 Subsequent hospital visit by physician Vargas [facility] Comment on above: Blood clot in arm (H CC) [I74.2] Start: 12-24-2023 End: 12-24-2023 ambulatory MARILYN PIÑA Facility:[facility] Start: 12-24-2023 End: 12-24-2023 Patient encounter procedure Marilyn Piña VALARIE.CNM Work Phone: OB/Gynecology Comment on above: Blood clot in arm (H CC) (Primary Dx); Nexplanon in place Start: 12-21-2023 End: 12-21-2023 ambulatory JACK PRIEST APRN-BIOMATHEMATICIAN Facility:[facility] Start: 12-21-2023 End: 12-21-2023 Patient encounter procedure JACK PRIEST APRN-BIOMATHEMATICIAN [facility] Start: 12-13-2023 End: 12-13-2023 ambulatory [facility] OB/Gynecology Start: 12-13-2023 End: 12-13-2023 Patient encounter procedure Whi Tech 1 [employer] [facility]/Gynecology Start: 12-07-2023 End: 12-07-2023 Patient encounter procedure Mari Madhav SHEPPARD.BIOMATHEMATICIAN Work Phone: OB/Gynecology Comment on above: Nexplanon insertion (Primary Dx) Start: 12-07-2023 End: 12-07-2023 Subsequent hospital visit by physician [facility] Work Phone: Nuclear Medicine Comment on above: Nausea [R11.0] Start: 12-03-2023 End: 12-03-2023 ambulatory JACK PRIEST APRN-BIOMATHEMATICIAN Facility:[facility] Start: 12-03-2023 End: 12-07-2023 Patient encounter procedure JACK PRIEST NET TECHNICAL ARCHITECT-BIOMATHEMATICIAN [facility] Comment on above: Menorrhagia with reg ular cycle (Primary Dx); Encounter for counseling regarding contraception Start: 11-26-2023 End: 06-23-2024 Telephone encounter Aury Tristan DO Work Phone: Rheumatology Comment on above: Physical Therapy Start: 11-20-2023 End: 11-20-2023 ambulatory Mary Parsons PA-C Work Phone: Gastroenterology Comment on above: Nausea (Primary Dx); Diarrhea, unspecified type Start: 11-20-2023 End: 11-20-2023 Telemedicine consultation with patient Mary Parsons LORETO Work Phone: Gastroenterology Start: 11-15-2023 End: 11-15-2023 ambulatory JACK PRIEST APRN-BIOMATHEMATICIAN Facility:[facility] Start: 11-05-2023 End: 11-05-2023 Subsequent hospital visit by physician Mervat [facility] [place] Work Phone: Radiology Comment on above: Pain of right hip [M 25.551] Start: 11-05-2023 End: 11-05-2023 Office outpatient visit 15 minutes Rebel Sneed NET TECHNICAL ARCHITECT.BIOMATHEMATICIAN Work Phone: [facility] Comment on above: Pain of right hip (P rimary Dx) Start: 11-05-2023 Telephone encounter Rebel strauss NET TECHNICAL ARCHITECT.BIOMATHEMATICIAN Work Phone: [facility] Comment on above: Results Start: 10-29-2023 End: 11-02-2023 ambulatory JACK PRIEST APRN-BIOMATHEMATICIAN Facility:B Start: 10-29-2023 End: 11-02-2023 Outreach Lab JACK PRIEST APRN-BIOMATHEMATICIAN [facility] Start: 10-16-2023 Telephone encounter Mari ahuja PA-C Work Phone: Orthopaedics Comment on above: Patient Update Start: 10-11-2023 Telephone encounter Fatoumata saldaña PA-C Work Phone: Pre Anesthesia Comment on above: No Show Start: 10-11-2023 End: 10-11-2023 Office outpatient visit 10 minutes Lul Carranza NET TECHNICAL ARCHITECT.BIOMATHEMATICIAN Work Phone: Pulmonary Medicine Comment on above: Allergic rhinitis du e to animal hair and dander (Primary Dx) Start: 10-10-2023 End: 10-10-2023 Nursing evaluation of patient and report Nurse Gi Lab Gastroenterology Comment on above: Irritable bowel synd ramila with diarrhea Start: 10-08-2023 ambulatory Lul Carranza NET TECHNICAL ARCHITECT.BIOMATHEMATICIAN Work Phone: Pulmonary Medicine Comment on above: Health issues Start: 10-08-2023 Telephone encounter Fatoumata saldaña PA-C Work Phone: Pre Anesthesia Comment on above: No Show Start: 10-06-2023 End: 10-06-2023 Patient encounter procedure Rula Elton NET TECHNICAL ARCHITECT.BIOMATHEMATICIAN Work Phone: [facility] Comment on above: Blister (Primary Dx) Start: 10-05-2023 ambulatory Florentino Quintana MD, PhD Work Phone: Orthopaedics Start: 10-05-2023 End: 10-05-2023 Patient encounter procedure Mari Mcmullen PA-C Work Phone: Orthopaedics Comment on above: Digital nerve lacera tion, finger, initial encounter (Primary Dx) Start: 10-01-2023 Orders Only Lul Carranza NET TECHNICAL ARCHITECT.BIOMATHEMATICIAN Work Phone: Pulmonary Medicine Comment on above: Vitamin D deficiency (Primary Dx) Start: 09-27-2023 Orders Only Lul Carranza NET TECHNICAL ARCHITECT.BIOMATHEMATICIAN Work Phone: Pulmonary Medicine Comment on above: Lung nodule (Primary Dx); Lung nodules Start: 09-27-2023 End: 09-27-2023 Office outpatient visit 15 minutes Lulelroy Carranza APRN.BIOMATHEMATICIAN Work Phone: Pulmonary Medicine Comment on above: Respiratory tract in fection (Primary Dx); Vitamin D deficiency Start: 09-24-2023 Telephone encounter Mary Muforeign osullivan PA-C Work Phone: Gastroenterology Comment on above: Results Start: 09-21-2023 End: 09-21-2023 Emergency department patient visit BUTTER FAT TESTER-C Jack Priest BUTTER FAT TESTER Work Phone: [facility]Emergency Department Work Phone: Start: 09-21-2023 End: 09-21-2023 Patient encounter procedure Orlando Nav NET TECHNICAL ARCHITECT.BIOMATHEMATICIAN Work Phone: [facility] Comment on above: Abdominal pain, unsp ecified abdominal location (Primary Dx) Start: 09-14-2023 End: 09-14-2023 Orders Only Prakash Holland MD Work Phone: [facility] Comment on above: Dysphagia, unspecifi ed type [R13.10] Start: 09-05-2023 End: 09-05-2023 ambulatory BUTTER FAT TESTER-C Jack Priest BUTTER FAT TESTER Work Phone: [facility] Work Phone: Start: 09-05-2023 End: 09-05-2023 Patient encounter procedure BUTTER FAT TESTER-C Jack Priest BUTTER FAT TESTER Work Phone: [facility]-Laboratory, Specimen Work Phone: Start: 08-30-2023 End: 08-30-2023 ambulatory Mary Pichardorobbie DANGELO Work Phone: Gastroenterology Comment on above: Dysphagia, unspecifi ed type (Primary Dx); Irritable bowel syndrome with diarrhea; Nausea; Abdominal bloating Start: 08-30-2023 End: 08-30-2023 Telemedicine consultation with patient Mary Pichardorobbie DAILEY-Naresh Work Phone: [facility] Start: 08-21-2023 ambulatory SHAUNA DÍAZ PA-C Facility:B Start: 08-09-2023 End: 06-25-2024 Telephone encounter Aury Tristan DO Work Phone: Rheumatology Comment on above: Orders Start: 08-09-2023 End: 08-09-2023 ambulatory Adilson Anderson PT Work Phone: [facility] Physical Therapy Comment on above: Patellofemoral pain [...] End: 08-03-2023 Subsequent hospital visit by physician Xr [facility] [place] Work Phone: Radiology Comment on above: Acute cough [R05.1] Start: 08-03-2023 End: 08-03-2023 Patient encounter procedure Orlando Chopra NET TECHNICAL ARCHITECT.BIOMATHEMATICIAN Work Phone: [facility] Comment on above: URI, acute (Primary Dx); Acute cough Start: 08-02-2023 Telephone encounter Lul Khan i NET TECHNICAL ARCHITECT.BIOMATHEMATICIAN Work Phone: Pulmonary Medicine Comment on above: Patient Question Start: 07-30-2023 End: 07-30-2023 Patient encounter procedure NAWAFC Jack Priest NP Work Phone: [facility] Work Phone: Start: 07-28-2023 End: 07-28-2023 Patient encounter procedure Teofilo Coreas MD Work Phone: [facility] Comment on above: Foot pain, left (Catalina wero Dx); Chronic pain of left ankle Start: 07-19-2023 End: 07-19-2023 Subsequent hospital visit by physician Clinic Imaging Mammo [facility] Work Phone: Mammography Comment on above: Canceled (CC cx: Err or or Template Change) Start: 07-19-2023 End: 07-19-2023 ENT examination - NAD Adair Dawkins MD Work Phone: [facility] Work Phone: Start: 07-19-2023 End: 07-19-2023 Patient encounter procedure Adair Dawkins MD Work Phone: Otolaryngology Comment on above: Normal ENT exam (Catalina wero Dx); Chronic recurrent sinusitis Bilateral fibrocysti c breast changes (Primary Dx); Cyst of left breast; Breast pain; Family history of breast cancer- mother in 30's , MGM, PGM ; Excess weight Start: 07-13-2023 End: 07-13-2023 ambulatory JACK PRIEST NET TECHNICAL ARCHITECT-BIOMATHEMATICIAN Facility:B Start: 07-13-2023 End: 07-13-2023 Patient encounter procedure JACK PRIEST NET TECHNICAL ARCHITECT-BIOMATHEMATICIAN [facility] Start: 07-11-2023 End: 07-11-2023 ambulatory SHAUNA VACCARELLI PA-C Facility:B Start: 07-11-2023 End: 07-11-2023 Patient encounter procedure SHAUNA VACCARELLI PA-C [facility] Start: 07-10-2023 Telephone encounter Lucy MONAHAN [facility] Comment on above: Appointment Start: 06-28-2023 ambulatory SHAUNA VACCAREL LI PA-C Facility:B Start: 06-25-2023 Telephone encounter Lul Erin rooney NET TECHNICAL ARCHITECT.BIOMATHEMATICIAN Work Phone: Pulmonary Medicine Comment on above: Results Start: 06-25-2023 End: 06-25-2023 ambulatory Anshul Niro PA-C Work Phone: Pulmonary Medicine Comment on above: Atypical chest pain (Primary Dx) Start: 06-25-2023 End: 06-25-2023 Telemedicine consultation with patient Anshul Niro PA-C Work Phone: [facility] Start: 05-23-2023 End: 05-23-2023 Patient encounter procedure BUTTER FAT TESTER-C Jack Priest BUTTER FAT TESTER Work Phone: [facility] Work Phone: Start: 04-24-2023 ambulatory Lul Carranza NET TECHNICAL ARCHITECT.BIOMATHEMATICIAN Work Phone: Pulmonary Medicine Comment on above: Breast cyst Start: 04-23-2023 Documentation procedure Mammog maddy Coordinator [facility] Start: 04-23-2023 Letter encounter Mammography Coordinator [facility] Department Start: 04-23-2023 ambulatory LUL CARRANZA Facility:1 [id number] Start: 04-23-2023 End: 04-23-2023 Subsequent hospital visit by physician [facility] RADIO ULTRA [facility] Comment on above: Mass of left breast, unspecified quadrant [N63.20] Start: 04-19-2023 ambulatory [facility] Pulmonar y Medicine Start: 04-19-2023 Telephone encounter Lul Khan nevin NET TECHNICAL ARCHITECT.BIOMATHEMATICIAN Work Phone: Pulmonary Medicine Comment on above: Patient Question FILM REQ-CIUNI Start: 04-17-2023 End: 04-17-2023 Office outpatient visit 25 minutes Lul Gillespiejonelle NET TECHNICAL ARCHITECT.BIOMATHEMATICIAN Work Phone: Pulmonary Medicine Comment on above: Lung nodules (Primar y Dx); Moderate persistent asthma without complication Start: 04-15-2023 [facility] Start: 04-15-2023 End: 04-15-2023 Subsequent hospital visit by physician [facility] Radiology Comment on above: Moderate persistent asthma without complication [J45.40] Start: 04-04-2023 End: 04-05-2023 ambulatory [facility] Facility:[facility] ital Start: 04-04-2023 End: 04-04-2023 Patient encounter procedure Jack Alvarez MD Work Phone: Pulmonary Medicine Comment on above: Moderate persistent asthma without complication (Primary Dx); Shortness of breath [R06.02]; Obesity without serious comorbidity, unspecified classification, unspecified obesity type [E66.9]; Lung nodules [R91.8]; Mold exposure [Z77.120] Start: 03-30-2023 End: 03-30-2023 ambulatory PAOLA VARGHESE NET TECHNICAL ARCHITECT-BIOMATHEMATICIAN Facility:B Start: 03-30-2023 End: 03-30-2023 Patient encounter procedure POALA VARGHESE NET TECHNICAL ARCHITECT-BIOMATHEMATICIAN [facility] Start: 03-18-2023 End: 03-18-2023 Emergency department patient visit No Primary Care Physician [facility]Emergency Department Work Phone: Start: 03-09-2023 End: 03-09-2023 Emergency department patient visit No Primary Care Physician [facility] Work Phone: Start: 03-09-2023 End: 03-09-2023 ambulatory No Primary Care Physician [facility] Work Phone: Start: 03-09-2023 End: 03-09-2023 Patient encounter procedure No Primary Care Physician [facility] Work Phone: Start: 03-05-2023 End: 03-05-2023 ambulatory SHAUNA RODRIGUEZJODII PA-C Facility:B Start: 03-05-2023 End: 03-05-2023 Patient encounter procedure SHAUNA VACCARELLI PA-C [facility] Start: 03-05-2023 End: 03-05-2023 Patient encounter procedure No Primary Care Physician [facility] Work Phone: Start: 03-05-2023 End: 03-05-2023 ambulatory No Primary Care Physician [facility] Work Phone: Start: 03-05-2023 End: 03-05-2023 Discharged Recurring No Primary Care Physician [facility]-Physical Therapy Work Phone: Start: 02-28-2023 End: 02-28-2023 ambulatory JACK PRIEST NET TECHNICAL ARCHITECT-BIOMATHEMATICIAN Facility:B Start: 02-24-2023 End: 02-24-2023 Emergency department patient visit No Primary Care Physician [facility]Emergency [facility] Work Phone: Start: 01-30-2023 End: 01-30-2023 Patient encounter procedure No Primary Care Physician [facility] Work Phone: Start: 01-18-2023 End: 01-18-2023 Patient encounter procedure No Primary Care Physician [facility] Work Phone: Start: 01-17-2023 End: 01-17-2023 Patient encounter procedure No Primary Care Physician [facility] Work Phone: Start: 01-03-2023 Registered Recurring Out [facility]-Physical Therapy Work Phone: Start: 01-03-2023 End: 01-03-[address] [facility] Work Phone: Start: 12-30-2022 End: 12-30-2022 ambulatory Out of [facility] Work Phone: Start: 12-30-2022 End: 12-30-2022 Patient encounter procedure Out [facility] Work Phone: Start: 12-27-2022 End: 12-27-[address] [facility] Work Phone: Start: 12-13-2022 End: 12-13-[address] [facility] Work Phone: Start: 12-06-2022 End: 12-06-[address] [facility] Work Phone: Start: 12-01-2022 End: 12-01-2022 ambulatory Out of [facility] Work Phone: Start: 12-01-2022 End: 12-01-[address] [facility] Work Phone: Start: 11-23-2022 End: 11-23-2022 ambulatory Out of [facility] Work Phone: Start: 11-23-2022 End: 11-23-2022 Patient encounter procedure Out [facility]Laboratory, OP Pavilion Start: 11-14-2022 End: 11-14-[address] [facility] Work Phone: Start: 10-14-2022 End: 10-14-2022 Emergency department patient visit Out [facility]-Emergency Department Start: 10-06-2022 End: 10-06-2022 Emergency department patient visit Out [facility]-Emergency Department Start: 09-29-2022 ambulatory Oriana aTylor DO Comp rehensive Internal Med Start: 09-22-2022 End: 09-22-2022 Emergency department patient visit Out [facility]-Emergency Department Start: 09-15-2022 End: 09-15-2022 Patient encounter procedure Out [facility] Start: 05-16-2022 End: 05-16-2022 Emergency department patient visit [facility]Emergency Department Start: 03-23-2022 ambulatory Teofilo mena MD Work Phone: [facility] Start: 03-23-2022 Letter encounter Teofilo muniz MD Work Phone: [facility] Comment on above: Letter Procedures Date Procedure Procedure Detail Performing Clinician Start: 03-08-2025 Blood pressure within normal parameters - no follow-up required Jonelle Lopez MD Work Phone: Start: 03-08-2025 BMI documented as above normal parameters - follow-up documented Jonelle Lopez MD Work Phone: Start: 03-08-2025 Current tobacco non-user cad cap copd pv dm Jonelle Lopez MD Work Phone: Start: 03-08-2025 Documentation of current medications Jonelle Lopez MD Work Phone: Start: 03-08-2025 Pain assessment documented as positive - follow-up documented Jonelle Lopez MD Work Phone: Start: 03-06-2025 OA REACTION Jonelle Lopez MD Work Phone: Start: 03-06-2025 Physical therapy management Jonelle patel MD Work Phone: Start: 03-06-2025 DJO REACTION KNEE BRACE Jonelle Lopez MD Work Phone: Start: 04-07-2024 Ct thorax w/o contrast material Lul Gillespie uni NET TECHNICAL ARCHITECT.BIOMATHEMATICIAN Work Phone: Start: 02-27-2024 Antibody screen JACK [facility] Comment on above: Order Comment: Specimen Type: BLOOD SPEC IMENOrdering Facility: [facility] Address: [address] [place] [address] Performed By: #### T SCR ####CC MAIN BLOOD BANKCLIA [id number] RAMYAlpa [place] [id number] [address] [place] Start: 02-26-2024 STREP A MOLECULAR (POC) Tracy Giraldo NET TECHNICAL ARCHITECT.BIOMATHEMATICIAN Work Phone: Start: 12-25-2023 Dup-scan xtr veins unilateral/limited study Marilyn Piña NET TECHNICAL ARCHITECT.CNM Work Phone: Start: 12-13-2023 Us pelvic nonobstetric real-time image complete Marilyn Piña NET TECHNICAL ARCHITECT.CNM Work Phone: Start: 12-07-2023 Gastric emptying imaging study Mary Weir hdomi PA-C Work Phone: Start: 12-07-2023 UA DIP,URINE HCG (POC) Mari Corey NET TECHNICAL ARCHITECT.BIOMATHEMATICIAN Work Phone: Start: 11-05-2023 Radex hip unilateral with pelvis 2-3 views Rebel Sneed NET TECHNICAL ARCHITECT.BIOMATHEMATICIAN Work Phone: Start: 10-10-2023 Breath hydrogen/methane test Mary Hastings omi PA-C Work Phone: Start: 09-14-2023 Level iv surg pathology gross&microscopic exam Prakash Holland MD Work Phone: Start: 09-14-2023 Esophagogastroduodenoscopy transoral diagnostic Mary Romeroi PA-C Work Phone: Start: 08-03-2023 COVID & INFLUENZA A/B & RSV NAAT, ROUTINE Orlando Chopra NET TECHNICAL ARCHITECT.BIOMATHEMATICIAN Work Phone: Start: 08-03-2023 Radiologic exam chest 2 views Orlando smith NET TECHNICAL ARCHITECT.BIOMATHEMATICIAN Work Phone: Start: 08-03-2023 INFLUENZA A&B MOLECULAR (POC) Orlando Valle luis WRIGHTN.BIOMATHEMATICIAN Work Phone: Start: 04-23-2023 breast uni real time with image limited Lul Carranza VALARIE.BIOMATHEMATICIAN Work Phone: Start: 03-18-2023 Plain chest X-ray [...] lumbar spine, two or three views Out [facility] Doctor Start: 05-21-2018 Cholecystectomy SHAUNA YAO PA-C Bone structure of mi ddle phalanx of ring finger of left hand ARIEL WHITE MD History of reduction of breast S /P bilateral breast reduction JACK PRIEST NET TECHNICAL ARCHITECT-BIOMATHEMATICIAN Hysterectomy JACK PATRICK NET TECHNICAL ARCHITECT-BIOMATHEMATICIAN Reduction mammaplasty RUBÉN WHITE MD Specimen from lung o btained by biopsy (specimen) JACK PRIEST NET TECHNICAL ARCHITECT-BIOMATHEMATICIAN Plan of Treatment Date Care Activity Detail Author Start: 2074 RSV Immunization for Adults (1 - 1-dose 75+ series) RSV Immunization for Adults (1 - 1-dose 75+ series) [facility] Start: 2049 Zoster Vaccines (1 of 2) Zoster Vaccines (1 of 2) [facility] Start: 10-29-2034 DTaP/Tdap/Td Vaccines (3 - Td or Tdap) DTaP/Tdap/Td Vaccines (3 - Td or Tdap) [facility] Start: 09-30-2033 Urine microalbumin profile DTaP,Tdap,Td Vaccine (2 - Td or Tdap) [facility] Start: 07-30-2025 Diabetes mellitus screening Diabetes Screening [facility] Start: 05-05-2025 End: 05-05-2025 Admission to same day surgery center 05/05/2025 11:30 AM EST - 05/05/2025 12:[address] [facility] Surgery [facility] [address] [place] [id number] Jacquelin Anderson MD [address] [place] [address] PELVIC EXAM UNDER ANESTHESIA [30390 (CPT )] [facility] Comment on above: PELVIC EXAM UNDER ANESTHESIA [06455 (CPT )] Start: 05-05-2025 End: 05-05-2025 Injection aa&/strd pudendal nerve BLOCK, NERVE, PUDENDAL Chronic pelvic pain in female High-tone pelvic floor dysfunction 05/05/2025 11:30 AM EST [facility] Operating Room Start: 05-05-2025 End: 05-05-2025 Injection single/auriculotherapist trigger point 3/> muscles INJECTION, TRIGGER POINT, MUSCLE Chronic pelvic pain in female High-tone pelvic floor dysfunction 05/05/2025 11:30 AM [facility] Operating Room Start: 05-05-2025 End: 05-05-2025 Pelvic examination w/anesthesia other than local EXAMINATION UNDER ANESTHESIA, PELVIS Chronic pelvic pain in female High-tone pelvic floor dysfunction 05/05/2025 11:30 AM EST [facility] Operating Room Start: 05-05-2025 Subsequent hospital visit by physician 05/05/2025 9:30 AM EST Hospital Encounter [facility] [address] [place] [address] Jacquelin Anderson MD [address] [place] [address] [facility] Start: 04-28-2025 End: 04-28-2025 Admission to establishment 04/28/2025 4:00 PM EST Pre-Admission Testing [facility] Pre-Admit Testing [address] [place] [address] [facility] Pre-Admit Testing Start: 03-20-2025 End: 03-20-2025 Follow-up encounter 03/20/2025 9:05 AM EDT [facility] Endocrinology [address], [place] [id number] Pierce Proctor MD [address] [place] [address] Pre Diabetes 6 months follow up, former patient of Dr. Khalil, Endocrinology Comment on above: Pre Diabetes 6 months follow up, former patient of Dr. Khalil, Start: 01-19-2025 COVID-19 Vaccine ( season) COVID-19 Vaccine ( season) [facility] Start: 01-19-2025 Influenza vaccination [facility] Start: 10-29-2024 End: 10-29-2024 Patient encounter procedure 10/29/2024 9:30 AM EDT Office Visit Infectious Disease [address] [facility] [address] [place] [address] Kraig Walters MD [address] [place] [address] [facility] Comment on above: [facility] Start: 09-15-2024 End: 12-15-2024 C peptide [Mass/volume] in Serum or Plasma C-PEPTIDE BLD Lab Routine Prediabetes Expected: 09/15/2024 (Approximate), Expires: 12/15/2024 [facility] Work Phone: Comment on above: Expected: 09/15/2024 (Approximate), Expi res: 12/15/2024 Start: 09-15-2024 End: 12-15-2024 Glutamate decarboxylase 65 Ab [Units/volume] in Serum GLUTAMIC AC DECARBOXYLASE AB Lab Routine Prediabetes Expected: 09/15/2024, Expires: 12/15/2024 [facility] Comment on above: Expected: 09/15/2024, Expires: Start: 09-15-2024 End: 12-15-2024 INSULINOMA ASSOCIATED ANTIBODY 2 INSULINOMA ASSOCIATED ANTIBODY 2 Lab Routine Prediabetes Expected: 09/15/2024, Expires: 12/15/2024 [facility] Comment on above: Expected: 09/15/2024, Expires: Start: 09-15-2024 End: 12-15-2024 ZINC TRANSPORTER 8 ANTIBODY ZINC TRANSPORTER 8 ANTIBODY Lab Routine Prediabetes Expected: 09/15/2024, Expires: 12/15/2024 [facility] Comment on above: Expected: 09/15/2024, Expires: Start: 09-15-2024 End: 09-15-2024 Patient encounter procedure 09/15/2024 8:00 AM EDT Office Visit Endocrinology [address] [place] [address] Malachi Khalil MD [address] [place] [address] metabolic syndrome Endocrinology Comment on above: metabolic syndrome Start: 09-12-2024 End: 12-12-2024 C reactive protein [Mass/volume] in Serum or Plasma C-REACTIVE PROTEIN Lab Routine Necrotizing granulomatous inflammation (HCC) Histoplasmosis Chronic cough Expected: 09/12/2024, Expires: 12/12/2024 [facility] Comment on above: Expected: 09/12/2024, Expires: Start: 09-12-2024 End: 12-12-2024 Comprehensive metabolic 2000 panel - Serum or Plasma COMPREHENSIVE METABOLIC PANEL Lab Routine Necrotizing granulomatous inflammation (HCC) Histoplasmosis Chronic cough Expected: 09/12/2024 (Approximate), Expires: 12/12/2024 [facility] Comment on above: Expected: 09/12/2024 (Approximate), Expi res: 12/12/2024 Start: 09-12-2024 End: 12-12-2024 Erythrocyte sedimentation rate SEDIMENTATION RATE, WESTERGREN Lab Routine Necrotizing granulomatous inflammation (HCC) Histoplasmosis Chronic cough Expected: 09/12/2024, Expires: 12/12/2024 [facility] Comment on above: Expected: 09/12/2024, Expires: Start: 09-12-2024 End: 12-12-2024 HISTOPLASMA AB CF HISTOPLASMA AB CF Lab Routine Necrotizing granulomatous inflammation (HCC) Histoplasmosis Chronic cough Expected: 09/12/2024, Expires: 12/12/2024 [facility] Comment on above: Expected: 09/12/2024, Expires: Start: 09-12-2024 End: 12-12-2024 ITRACONAZOLE BLOOD ITRACONAZOLE BLOOD Lab Routine Necrotizing granulomatous inflammation (HCC) Histoplasmosis Chronic cough Expected: 09/12/2024, Expires: 12/12/2024 [facility] Work Phone: Comment on above: Expected: 09/12/2024, Expires: Start: 09-12-2024 End: 09-12-2024 ambulatory 09/12/2024 9:00 AM EDT [facility] Infectious Disease [address] [place] [address] Kraig Walters MD [address] [place] [address] [facility] Infect[facility] Disease Comment on above: [facility] Start: 09-01-2024 End: 12-01-2024 Comprehensive metabolic 2000 panel - Serum or Plasma COMPREHENSIVE METABOLIC PANEL Lab Routine Histoplasmosis Expected: 09/01/2024, Expires: 12/01/2024 [facility] Comment on above: Expected: 09/01/2024, Expires: Start: 09-01-2024 End: 12-01-2024 ITRACONAZOLE BLOOD ITRACONAZOLE BLOOD Lab Routine Histoplasmosis Expected: 09/01/2024, Expires: 12/01/2024 [facility] Work Phone: Comment on above: Expected: 09/01/2024, Expires: Start: 08-28-2024 End: 08-28-2024 Patient encounter procedure 08/28/2024 3:30 PM EDT Office Visit Infectious Disease [address] [place] [address] Sharan Adams MD [address] [place] [address] Histoplasmosis [B39.9]. Liver disease [K76.9]. Obesity, Class III, BMI 40-49.9 (morbid obesity) (HCC) [E66.01]. Chronic cough [R05.3] Infectious Disease Comment on above: Histoplasmosis [B39.9]. Liver disease [K 76.9]. Obesity, Class III, BMI 40-49.9 (morbid obesity) (HCC) [E66.01]. Chronic cough [R05.3] Start: 08-13-2024 End: 11-12-2024 C reactive protein [Mass/volume] in Serum or Plasma [facility] Comment on above: Expected: 08/13/2024, Expires: Start: 08-13-2024 End: 11-12-2024 CBC W Auto Differential panel - Blood COMPLETE BLOOD COUNT AND DIFFERENTIAL Lab Routine Histoplasmosis Medication monitoring encounter Expected: 08/13/2024 (Approximate), Expires: 11/12/2024 [facility] Work Phone: Comment on above: Expected: 08/13/2024 (Approximate), Expi res: 11/12/2024 Start: 08-13-2024 End: 11-12-2024 Comprehensive metabolic 2000 panel - Serum or Plasma [facility] Comment on above: Expected: 08/13/2024 (Approximate), Expi res: 11/12/2024 Start: 08-13-2024 End: 11-12-2024 Ferritin [Mass/volume] in Serum or Plasma [facility] Comment on above: Expected: 08/13/2024, Expires: Start: 08-13-2024 End: 11-12-2024 ITRACONAZOLE BLOOD ITRACONAZOLE BLOOD Lab Routine Histoplasmosis Medication monitoring encounter Expected: 08/13/2024 (Approximate), Expires: 11/12/2024 [facility] Comment on above: Expected: 08/13/2024 (Approximate), Expi res: 11/12/2024 Start: 07-30-2024 End: 10-29-2024 Cryptococcus sp Ag [Presence] in Unspecified specimen by Latex agglutination CRYPTOCOCCUS ANTIGEN SCREEN AND TITER BY LFA Microbiology Routine Histoplasmosis Necrotizing granuloma present on biopsy of lymph node Fever, unspecified Expected: 07/30/2024, Expires: 10/29/2024 [facility] Work Phone: Comment on above: Expected: 07/30/2024, Expires: Start: 07-30-2024 End: 07-30-2024 Follow-up encounter 07/30/2024 10:15 AM EDT [facility] Pulmonary Medicine [address] [place] [address] [place] [address] [place] [address] Follow Up Histoplasmosis Pulmonary Medicine Comment on above: Follow Up Histoplasmosis Start: 07-24-2024 End: 07-24-2024 Patient encounter procedure 07/24/2024 2:15 PM EST Office Visit Pulmonary Medicine [id number] [place], [place] [id number] [place] [address] [place] [address] [facility] follow up pnemonia Pulmonary Medicine Comment on above: [facility] follow up pnemon ia Start: 07-17-2024 End: 07-17-2024 ambulatory 07/17/2024 9:30 AM EST Results Only Cardiology [address] [place], [place] [id number] EKG Cardiology Comment on above: EKG Start: 07-17-2024 End: 07-17-2024 Patient encounter procedure Cardiology Comment on above: Near syncope EKG Start: 07-14-2024 End: 07-14-2024 ambulatory 07/14/2024 8:45 AM EST [facility] Pulmonary Medicine [id number] [place] [address] [place] [address] [place] [address] Test results Pulmonary Medicine Comment on above: Test results Start: 07-02-2024 End: 07-02-2024 Patient encounter procedure 07/02/2024 2:15 PM EST Office Visit Pulmonology [facility] [address] [place], [place] [phone] [place] [address] [place] [address] Lung nodules .PCP wants bronchoscopy done. Pulmonology [facility] Comment on above: Lung nodules .PCP wants bronchoscopy don e. Start: 07-02-2024 End: 10-01-2024 Comprehensive metabolic 2000 panel - Serum or Plasma [facility] Work Phone: Comment on above: Expected: 07/02/2024, Expires: Start: 04-23-2024 End: 04-23-2024 Patient encounter procedure [facility] Comment on above: Associated Diagnoses Start: 04-21-2024 End: 04-21-2024 Patient encounter procedure 04/21/2024 3:20 PM EST Office Visit [facility] [address] [facility] [address] [place], [place] [id number] Toyin Kay MD [address] [facility] [address] [place] [address] Arthritis (RIGO) [facility] Comment on above: Arthritis (RIGO) Start: 04-14-2024 End: 04-14-2024 ambulatory 04/14/2024 3:30 PM EST Visit (SP) Office Hematology/Oncology [address] [place], [place] [id number] Young Marsh DO [address] [place], [place] [phone] OV* Hematology/Oncology Comment on above: OV* Start: 04-14-2024 End: 07-14-2024 Ferritin [Mass/volume] in Serum or Plasma [facility] Comment on above: Expected: 04/14/2024, Expires: Start: 04-14-2024 End: 07-14-2024 Iron and Iron binding capacity panel - Serum or Plasma [facility] Work Phone: Comment on above: Expected: 04/14/2024, Expires: Start: 04-09-2024 End: 07-09-2024 Bacteria identified in Unspecified specimen by Respiratory culture RESPIRATORY CULTURE AND STAIN Microbiology Routine Chronic cough Expected: 04/09/2024 (Approximate), Expires: 07/09/2024 [facility] Work Phone: Comment on above: Expected: 04/09/2024 (Approximate), Expi res: 07/09/2024 Start: 04-08-2024 End: 04-08-2024 ambulatory 04/08/2024 8:30 AM EST [facility] Pulmonary Medicine [address] [place] [address] Lul Carranza APRN.BIOMATHEMATICIAN [address] [place] [address] Lung Nodule F/U Pulmonary Medicine Comment on above: Lung Nodule F/U Start: 04-07-2024 End: 04-07-2024 Patient encounter procedure 04/07/2024 8:00 AM EST Appointment Cat Scan [address] [place] [address] Lung nodules [R91.8] Cat Scan Comment on above: Lung nodules [R91.8] Start: 03-29-2024 End: 10-26-2024 CT Chest WO contrast CT CHEST WO IVCON Radiology Routine Lung nodules Expected: 03/29/2024 (Approximate), Expires: 10/26/2024 [facility] Work Phone: Comment on above: Expected: 03/29/2024 (Approximate), Expi res: 10/26/2024 Start: 03-07-2024 End: 03-07-2024 Patient encounter procedure Radiology Comment on above: XR MODIFIED BARIUM SWALLOW W SPEECH THER APY Start: 02-27-2024 End: 02-27-2024 ambulatory 02/27/2024 8:15 AM EDT Results Only Lorena Quiñones [facility] Laboratory [address] [place] [address] LABS - SPECIAL VALVE TESTER [place] [facility] Laboratory Comment on above: LABS - SPECIAL VALVE TESTER Start: 02-26-2024 End: 02-26-2024 ambulatory 02/26/2024 8:15 AM EDT Results Only Lorena Quiñones [facility] Laboratory [address] [place] [address] LABS - SPECIAL VALVE TESTER [place] [facility] Laboratory Comment on above: LABS - SPECIAL VALVE TESTER Start: 02-22-2024 End: 02-22-2024 Patient encounter procedure 02/22/2024 9:30 AM EDT Office Visit Plastic Surgery [address] [address] Stacy Segura MD [address] [place] [address] post op Plastic Surgery Comment on above: post op Start: 02-20-2024 End: 05-21-2024 HYPERCOAG DIAG PNL HYPERCOAG DIAG PNL Lab Routine Superficial thrombophlebitis of right upper extremity Expected: 02/20/2024, Expires: 05/21/2024 [facility] Comment on above: Expected: 02/20/2024, Expires: Start: 02-20-2024 End: 05-21-2024 TYPE + SCREEN TYPE + SCREEN Blood Bank Routine Menorrhagia with irregular cycle Expected: 02/20/2024, Expires: 05/21/2024 [facility] Work Phone: Comment on above: Expected: 02/20/2024, Expires: Start: 02-20-2024 End: 05-21-2024 VON WILLEBRAND DX PANEL VON WILLEBRAND DX PANEL Lab Routine Menorrhagia with irregular cycle Expected: 02/20/2024, Expires: 05/21/2024 [facility] Comment on above: Expected: 02/20/2024, Expires: Start: 02-20-2024 End: 02-20-2024 ambulatory 02/20/2024 10:30 AM EDT Visit (SP) Office Hematology/Oncology [address] [place] [address] Young Marsh DO [address] [place] [address] ref provider Jack Priest for dx Superficial Thrombophlebitis of arm* PT REQUESTED DAY Hematology/Oncology Comment on above: 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 Thrombophlebitis of arm* PT REQUESTED DAY Start: 02-14-2024 End: 02-14-2024 Patient encounter procedure 02/14/2024 2:30 PM EDT Office Visit Cardiology [address] [place] [address] Javi Stevens MD [address] [place] [address] Near syncope Cardiology Comment on above: Near syncope Start: 02-14-2024 End: 02-14-2024 ambulatory 02/14/2024 2:00 PM EDT Results Only Cardiology [address] [phone] Near syncope Cardiology Comment on above: Near syncope Start: 02-10-2024 Subsequent hospital visit by physician 02/10/2024 Hospital Encounter Surgery Center [address] [address] Stacy Segura MD [address] [place] [address] Macromastia [N62] Surgery Center Comment on above: Macromastia [N62] Start: 02-06-2024 End: 02-06-2024 Patient encounter procedure [facility] Comment on above: Arthritis post op Start: 01-31-2024 End: 01-31-2024 Patient encounter procedure 01/31/2024 3:20 PM EDT Office Visit [facility] [address] [place] [address] [place] [address] [place] [address] 6 Month Clinical Only Breast Center Comment on above: 6 Month Clinical Only Start: 01-30-2024 End: 01-30-2024 Patient encounter procedure 01/30/2024 10:00 AM EDT Office Visit Plastic Surgery [address] [place] [address] Stacy Segura MD [address] [place] [address] POST OP SURG 01/21 Plastic Surgery Comment on above: POST OP SURG 01/21 Start: 01-25-2024 End: 01-25-2024 Patient encounter procedure 01/25/2024 2:45 PM EDT Office Visit Plastic Surgery [address] [address] Stacy Segura MD [address] [place] [address] post op Plastic Surgery Comment on above: post op Start: 01-25-2024 End: 01-25-2024 Patient encounter procedure 01/25/2024 10:30 AM EDT Office Visit Plastic Surgery [address] [address] Stacy Segura MD [address] [place] [address] post op Plastic Surgery Comment on above: post op Start: 01-24-2024 End: 01-24-2024 Clinical Support 01/24/2024 11:00 AM EDT Clinical Support [place] [address] Lisa Almanzar, [place] [address] Gen[facility] - [place] Start: 01-23-2024 End: 01-23-2024 Patient encounter procedure 01/23/2024 2:00 PM EDT Office Visit Plastic Surgery [address] [place] [address] Stacy Segura MD [address] [place] [address] POST OP SURG 01/21 Plastic Surgery Comment on above: POST OP SURG 01/21 Start: 01-22-2024 End: 01-22-2024 Admission to same day surgery center 01/22/2024 11:05 AM EDT - 01/22/2024 2:40 PM EDT Surgery Ambulatory Surgery [address] [place] [address] Stacy Segura MD [address] [place] [address] REDUCTION BREAST BILATERAL Ambulatory Surgery Comment on above: REDUCTION BREAST BILATERAL Start: 01-22-2024 End: 01-22-2024 Reduction mammaplasty REDUCTION BREAST BILATERAL Macromastia Chronic bilateral low back pain without sciatica Neck pain Intertrigo 01/22/2024 11:05 AM EDT [facility] Start: 01-22-2024 Subsequent hospital visit by physician 01/22/2024 11:05 AM EDT Hospital Encounter Ambulatory Surgery [address] [place] [address] Stacy Segura MD [address] [place] [address] Macromastia [N62] Ambulatory Surgery Comment on above: Macromastia [N62] Start: 01-22-2024 End: 01-22-2024 Patient encounter procedure 01/22/2024 8:30 AM EDT Office Visit Plastic Surgery [address] [facility] [address] [place] [id number] Rehan Campbell MD [address] [facility] [address] [place], [place] [address] New Patient - Breast Reduction (LRT) Plastic Surgery Comment on above: New Patient - Breast Reduction (LRT) Start: 01-22-2024 End: 01-22-2024 Admission to same day surgery center 01/22/2024 7:30 AM EDT - 01/22/2024 10:50 AM EDT Surgery Ambulatory Surgery [address] [place] [address] Stacy Segura MD [address] [place] [address] REDUCTION BREAST BILATERAL Ambulatory Surgery Comment on above: REDUCTION BREAST BILATERAL Start: 01-22-2024 End: 01-22-2024 Reduction mammaplasty REDUCTION BREAST BILATERAL Macromastia Chronic bilateral low back pain without sciatica Neck pain Intertrigo 01/22/2024 7:30 AM EDT [facility] Start: 01-22-2024 Subsequent hospital visit by physician 01/22/2024 7:30 AM EDT Hospital Encounter Ambulatory Surgery [address] [place] [address] Stacy Segura MD [address] [place] [address] Macromastia [N62] Ambulatory Surgery Comment on above: Macromastia [N62] Start: 01-20-2024 COVID-19 ( season) COVID-19 ( season) [facility] Start: 01-20-2024 Covid-19 Vaccine ( season) Covid-19 Vaccine ( season) [facility] Start: 01-20-2024 Covid-19 Vaccine ( season) Covid-19 Vaccine ( season) [facility] Start: 01-20-2024 FLU (#1) FLU (#1) [facility] Start: 01-20-2024 Influenza vaccination [facility] Start: 01-18-2024 End: 01-18-2024 Patient encounter procedure 01/18/2024 1:30 PM EDT Office Visit Plastic Surgery [address] [address] Stacy Segura MD [address] [place] [address] CONSENT Plastic Surgery Comment on above: CONSENT Start: 01-18-2024 End: 01-18-2024 Anesthesia consultation 01/18/2024 9:20 AM EDT PAT Pre Anesthesia [address] [place] [address] 1, [place] [address] [place] [address] preop surg 01/21 Pre Anesthesia Comment on above: preop surg 01/21 Start: 01-14-2024 End: 01-14-2024 Patient encounter procedure 01/14/2024 1:00 PM EDT Office [facility] [address] [place] [address] Tamara Maxwell, NET TECHNICAL ARCHITECT.BIOMATHEMATICIAN [address] [place] [address] New Pt: Herniated bulge in thoracic back and lumbar pain [facility] Comment on above: New Pt: Herniated bulge in thoracic back and lumbar pain Start: 01-07-2024 End: 01-07-2024 Patient encounter procedure 01/07/2024 1:00 PM EDT Office Visit [facility] [address] [place] [address] Tamara Maxwell, NET TECHNICAL ARCHITECT.BIOMATHEMATICIAN [address] [place] [address] New Pt: Herniated bulge in thoracic back and lumbar pain [facility] Comment on above: New Pt: Herniated bulge in thoracic back and lumbar pain Start: 01-01-2024 End: 01-01-2024 ambulatory 01/01/2024 2:30 PM EDT [facility] Gastroenterology [address] [address] Mary Parsons PA-C [address] [place] [address] Irritable bowel syndrome with diarrhea Gastroenterology Comment on above: Irritable bowel syndrome with diarrhea Start: 12-25-2023 End: 12-25-2023 Patient encounter procedure 12/25/2023 8:15 AM EDT Appointment [facility] [address] [place] [address] Blood clot in arm ([facility]) [I74.2] [facility] Comment on above: Blood clot in arm ([facility]) [I74.2] Start: 12-11-2023 End: 12-11-2023 ambulatory 12/11/2023 1:30 PM EDT Procedure OB/Gynecology [address] [place], [place] [address] Menorrhagia with regular cycle [N92.0] OB/Gynecology Comment on above: Menorrhagia with regular cycle [N92.0] Start: 12-07-2023 End: 12-07-2023 Patient encounter procedure Internal Medicine [facility] Comment on above: estab care Nausea [R11.0] Start: 12-03-2023 End: 12-03-2023 Patient encounter procedure 12/03/2023 2:00 PM EDT Office Visit OB/Gynecology [address] [place], [place] [phone] Marilyn Piña APRN.CNM [address] [place] [address] vaginal pain OB/Gynecology Comment on above: vaginal pain Start: 12-03-2023 End: 12-02-2024 US Pelvis PELVIC US [facility] Anc Imaging Routine Menorrhagia with regular cycle Expected: 12/03/2023, Expires: 12/02/2024 [facility] Work Phone: Comment on above: Expected: 12/03/2023, Expires: Start: 10-29-2023 Varicella vaccination Varicella Vaccines (1 of 2 - 13+ 2-dose series) [facility] Start: 10-29-2023 End: 10-29-2023 Patient encounter procedure Orthopaedics Comment on above: post op DOS 10/15 LT RING FINGER Start: 10-16-2023 End: 10-16-2023 Suture digital nerve hand/foot 1 nerve SUTURE NERVE DIGITAL, HAND, ONE NERVE Digital nerve laceration, finger, initial encounter 10/16/2023 12:20 PM EDT [facility] Start: 10-16-2023 End: 10-16-2023 Admission to same day surgery center 10/16/2023 7:45 AM EDT - 10/16/2023 9:00 AM EDT Surgery Ambulatory Surgery [address] [place] [address] Florentino Quintana MD, PhD [address] [place] [address] SUTURE NERVE DIGITAL, HAND, ONE NERVE Ambulatory Surgery Comment on above: SUTURE NERVE DIGITAL, HAND, ONE NERVE Start: 10-16-2023 Subsequent hospital visit by physician 10/16/2023 7:45 AM EDT Hospital Encounter Ambulatory Surgery [address] [place] [address] Florentino Quintana MD, PhD [address] [facility] [place] [address] Digital nerve laceration, finger, initial encounter [S64.40XA] Ambulatory Surgery Comment on above: Digital nerve laceration, finger, initia l encounter [S64.40XA] Start: 10-16-2023 End: 10-16-2023 Suture digital nerve hand/foot 1 nerve SUTURE NERVE DIGITAL, HAND, ONE NERVE Digital nerve laceration, finger, initial encounter 10/16/2023 7:45 AM EDT [facility] Start: 10-12-2023 End: 10-12-2023 Patient encounter procedure 10/12/2023 9:10 PM EDT Office Visit Neurology [address] [place] [address] Poor sleep [Z72.820] Neurology Comment on above: Poor sleep [Z72.820] Start: 10-11-2023 End: 10-11-2023 Anesthesia consultation 10/11/2023 1:20 PM EDT PAT Pre Anesthesia [address] [place] [address] VIRTUAL VISIT Pre Anesthesia Comment on above: VIRTUAL VISIT Start: 10-11-2023 End: 10-11-2023 Follow-up encounter 10/11/2023 10:00 AM EDT [facility] [address], [place] [address] Lul Carranza APRN.BIOMATHEMATICIAN [address] [place] [address] Lung Follow Up Pulmonary Medicine Comment on above: Lung Follow Up Start: 10-10-2023 End: 10-10-2023 Nursing evaluation of patient and report 10/10/2023 7:30 AM EDT Nurse Visit Gastroenterology [address] [address] Lab, Nurse Gi I [address] [place] [address] Test, Nurse Gi Breath [address] [place] [address] Irritable bowel syndrome with diarrhea [K58.0] Gastroenterology Comment on above: Irritable bowel syndrome with diarrhea [ K58.0] Start: 10-09-2023 End: 10-09-2023 Patient encounter procedure 10/09/2023 10:00 AM EDT Office Visit Internal Medicine [address] [address] [place] [address] [place] [phone] [facility]ish [facility] Internal Medicine [facility] Comment on above: Establish Care Start: 10-05-2023 End: 10-05-2023 Patient encounter procedure 10/05/2023 8:00 AM EDT Office Visit Orthopaedics [address] [address] Mari Mcmullen PA-C [address] [place], [place] [phone] left ring finger mass Orthopaedics Comment on above: left ring finger mass Start: 09-27-2023 End: 12-27-2023 25-hydroxyvitamin D3 [Mass/volume] in Serum or Plasma VITAMIN D 25 HYDROXY Lab Routine Vitamin D deficiency Expected: 09/27/2023, Expires: 12/27/2023 [facility] Work Phone: Comment on above: Expected: 09/27/2023, Expires: 4 Start: 09-21-2023 [facility] Start: 09-21-2023 [facility] Start: 05-21-2023 Behavioral Health Screening Behavioral Health Screening [facility] Start: 05-21-2023 Depression Assessment Depression Assessment [facility] Start: 04-04-2023 End: 07-04-2023 [employer] [facility] Work Phone: Comment on above: Expected: 04/04/2023, Expires: 4 Start: 04-04-2023 End: 07-04-2023 [employer] [facility] Work Phone: Comment on above: Expected: 04/04/2023, Expires: Start: 04-04-2023 End: 07-04-2023 [employer] [facility] Work Phone: Comment on above: Expected: 04/04/2023, Expires: 4 Start: 04-04-2023 End: 07-04-2023 Aspergillus fumigatus IgE Ab [Units/volume] in Serum [facility] Work Phone: Comment on above: Expected: 04/04/2023, Expires: 4 Start: 04-04-2023 End: 07-04-2023 IgE [Units/volume] in Serum or Plasma [facility] Work Phone: Comment on above: Expected: 04/04/2023, Expires: Start: 03-09-2023 [facility] Start: 02-24-2023 [facility] Start: 01-19-2023 COVID-19 ( season) COVID-19 () [facility] Start: 01-19-2023 Covid-19 Vaccine ( season) Covid-19 Vaccine ( season) [facility] Start: 01-19-2023 Influenza vaccination Influenza Vaccine (#1) [facility] Start: 01-18-2023 Patient referral [facility] Work Phone: Start: 05-21-2022 Depression Assessment Depression Assessment [facility] Start: 01-19-2022 Influenza vaccination INFLUENZA (#1) [facility] Start: 05-21-2021 DEPRESSION ASSESSMENT DEPRESSION ASSESSMENT [facility] Start: 2020 Microscopic observation [Identifier] in Cervix by Cyto stain Pap Smear [facility] Start: 2020 PAP TESTING PAP TESTING [facility] Start: 2020 Screening for malignant neoplasm of cervix [facility] Start: 2018 Hepatitis B (1 of 3 - 19+ 3-dose series) Hepatitis B (1 of 3 - 19+ 3-dose series) [facility] Start: 2018 Hepatitis B Vaccine (1 of 3 - 19+ 3-dose series) Hepatitis B Vaccine (1 of 3 - 19+ 3-dose series) [facility] Start: 2018 Hepatitis B Vaccines (1 of 3 - 19+ 3-dose series) Hepatitis B Vaccines (1 of 3 - 19+ 3-dose series) [facility] Start: 2018 Pneumococcal vaccination Pneumococcal Vaccine (1 of 2 - PCV) [facility] Start: 2018 Pneumococcal Vaccine: Pediatrics (0 to 5 Years) and At-Risk Patients (6 to 49 Years) (1 of 2 - PCV) Pneumococcal Vaccine: Pediatrics (0 to 5 Years) and At-Risk Patients (6 to 49 Years) (1 of 2 - PCV) [facility] Start: 2018 Urine microalbumin profile [facility] Start: 2017 Annual PCP Team Chronic Disease Visit Annual PCP Team Chronic Disease Visit [facility] Start: 2017 CHLAMYDIA SCREENING (18-24) CHLAMYDIA SCREENING (18-24) [facility] Start: 2017 GC (GONORRHEA) SCREENING (18-24) GC (GONORRHEA) SCREENING (18-24) [facility] Start: 2017 HEPATITIS C SCREENING HEPATITIS C SCREENING [facility] Start: 2017 Hepatitis C screening Hepatitis C Screening [facility] Start: 2017 HIV SCREENING HIV SCREENING [facility] Start: 2017 HIV screening HIV Screening [facility] Start: 2017 Screening for Chlamydia trachomatis Chlamydia Screening (18-24) [facility] Start: 2017 Spirometry Spirometry [facility] Start: 2015 MenB (1 of 2 - MenB 2-Dose Series Bexsero) MenB (1 of 2 - MenB 2-Dose Series Bexsero) [facility] Start: 2015 Meningococcal B Vaccine: Consider Based On Risk (1 of 2 - Patient Seeks Protection) Meningococcal B Vaccine: Consider Based On Risk (1 of 2 - Patient Seeks Protection) [facility] Start: 2014 HPV (1 - 3-dose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 Infectious Disease [facility] documented in this encounterUniversity Hospitals [facility]04-03-2025 Telephone encounter Note * Telephone Encounter - Ching Rivas - 08/21/2024 3:08 PM EDT Received outside orders for physical therapy / back pain. Documents have been scanned. Spoke to patient she said it was faxed to wrong facility. She is having PT at [facility]. [facility] Work Phone: 1(121) 719-301004-03-2025 Miscellaneous Notes* Telephone Encounter - Ching Rivas - 08/21/2024 3:08 PM EDT Received outside orders for physical therapy / back pain. Documents have been scanned. Spoke to patient she said it was faxed to wrong facility. She is having PT at [facility]. documented in this encounterUniversity Hospitals [facility] Center03-26-2025 Telephone encounter Note * Telephone Encounter - Dinorah Joe MD - 08/13/2024 11:32 AM EDT Images from the original note were not included. Spoke to patient. Standing lab orders. She will swing back to lab later today to get blood drawn. Standing orders placed weekly x 4, till she follows up with Dr. Walters. Signature: Dinorah Joe MD Infectious Disease Office [facility]03-26-2025 Miscellaneous Notes* Telephone Encounter - Dinorah Joe MD - 08/13/2024 11:32 AM EDT Images from the original note were not included. Spoke to patient. Standing lab orders. She will swing back to lab later today to get blood drawn. Standing orders placed weekly x 4, till she follows up with Dr. Walters. Signature: Dinorah Joe MD Infectious Disease Office * Telephone Encounter - Maida Arshad - 08/13/2024 10:52 AM EDT Patient is at the lab but the orders are not in. Patient says she is suppose to have standing lab orders to get done every Sunday. Please advise. documented in this encounterUniversity Hospitals [facility] Center03-26-2025 Telephone encounter Note * Telephone Encounter - Maida Arshad - 08/13/2024 10:52 AM EDT Patient is at the lab but the orders are not in. Patient says she is suppose to have standing lab orders to get done every Sunday. Please advise. [facility]03-19-2025 Telephone encounter Note* Telephone Encounter - Sharan Becerra - 08/06/2024 8:[address] Walters, Please see the below Azumio message and contact patient to advise within 72 hours. Sharan Irvin So is my bloodwork a standing order in the system to be done weekly every Sunday? I m taking themedicine as prescribed. Gonna try to reschedule the liver biopsies with GI since my liver hurts. Its not abnormal or new, just increased I think. They wanted biopsies done but I was in the hospital over the time I was to have them so going to reschedule it. [facility]03-19-2025 Miscellaneous Notes* Telephone Encounter - Sharan Becerra - 08/06/2024 8:[address] Walters, Please see the below Azumio message and contact patient to advise within 72 hours. Sharan Irvin So is my bloodwork a standing order in the system to be done weekly every Sunday? I m taking themedicine as prescribed. Gonna try to reschedule the liver biopsies with GI since my liver hurts. Its not abnormal or new, just increased I think. They wanted biopsies done but I was in the hospital over the time I was to have them so going to reschedule it. documented in this encounterUniversity Hospitals Conneaut [facility] Center03-13-2025 [facility]03-13-[facility] History of Present illness Narrative* Kevin Olson MD - 07/31/2024 9:43 AM EDT Images from the original note were not included. [facility]IC[facility] OFFICE VISIT CONSULT 07/31/2024 VIRTUAL VISIT PROGRESS NOTE This is a virtual visit using Azumio Zoom Video Visit. It required patient- provider interaction for the medical decision making as documented below. I have communicated my name and active licensure. The patient's identity and physical location wereverified at the time of this visit. Either the patient or their legal outside dealer sales representative has been informed of the risks and benefits of -- and alternatives to -- treatment through a remote evaluation andconsents to proceed with the evaluation remotely. Patient Name: Matt Calabrese PRIMARY CARE PHYSICIAN: Jack Priest, BIOMATHEMATICIAN, BIOMATHEMATICIAN REASON FOR CONSULT: Follow up results from [...] in agreement. Kevin Olson MD, Staff, [facility] HISTORY OF PRESENT ILLNESS: Matt Calabrese is a 24 year old female with a PMH significant for pulmonary histoplasmosis, suspected cirrhosis, obesity presenting for follow up after recent hospital stay. Was admitted at [facility] - Diagnosis PNA and hyponatremia - Initial [...] histoplasma 5yrs ago (~2019) while living in [place], was having frequent coughing but unsure what led to the dx - She completed 6wks of itraconazole with okay tolerability (struggles at baseline with GI sx) withplan for repeat bronchoscopy ([place] in 2021). However, she moved to [place] prior to this procedure. - She continued with issues of chronic coughing, sensation of lungs burning, and clear, thick mucusin the morning upon awakening (rarely green). - She underwent PFTs (jeovany, DLCO) which were WNL. MCT was also WNL. - ENT evaluation was negative for sinus issues. Additionally, she denies sinus issues -- nasal congestion, rhinorrhea, PND. - She's been intermittently treated w/ PO steroids and abx w/o significant improvement. ICS as havenot been helpful. - CT imaging for the [...] Follows w/ GI: Dr. Marquita Chavez at [facility] - No prior evaluation for hepatic histoplasmosis, [...] TIREDNESS CAN TAKE FULL TAB PHYSICAL EXAM: [facility] 01/22/2024 - Virtual visit Physical Exam [...] PORT Result Date: 07/09/2024 IMPRESSION: See result. 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: WILL Transcribe Date/Time: Jul 09 2024 2:54P Dictated by : ADONAY MCKENZIE MD This examination was interpreted and the report reviewed and electronically signed by: ADONAY MCKENZIE MD on Jul 09 2024 2:54PM EST CT CHEST WO IVCON Result Date: 04/07/2024 IMPRESSION: Stable lung nodules and faintly calcified thoracic lymphadenopathy, compatible with granulomatous process and likely related to reported histoplasmosis, DDx includes sarcoidosis. 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: [facility] Transcribe Date/Time: Apr 07 2024 10:30A Dictated by : KENYETTA RUVALCABA MD This examination was interpreted and the report reviewed and electronically signed by: VALERIE AYERS MD on Apr 07 2024 11:41AM EST Echocardiogram: Recent Results (from the past [id number] hours) ECHO Collection Time: 08/13/23 9:33 AM [...] Kevin Olson MD, FAAP, FACP Staff, [facility] CC: Jack Priest BIOMATHEMATICIAN, BIOMATHEMATICIAN Kevin Olson MD documented in this encounterUniversity Hospitals Conneaut Medical Center03-12-2025 Instructions* Patient Instructions* Kraig Walters MD - 07/30/2024 10:16 AM [...] including liver function tests, kidney function tests, andinflammation markers. Also, provide a urine sample for histoplasma studies. - Schedule and complete follow-up blood work within a week of starting itraconazole to ensure the medication levels are on target. This can be done at a [facility] facility in [place]. - Contact your primary care physician, Jack Priest, and request that she send your medical records to Dr. Walters. This will help expedite your treatment plan. - Attend a virtual follow-up appointment on September 12 at 9:00 AM to review your progress and any lab results. Dr. Walters documented in this encounterUniversity Hospitals Conneaut [facility] Center03-12-2025 [facility]03-12-2025 History of Present illness Narrative* Kraig Walters MD - 07/30/2024 9:25 AM EDT INFECTIOUS DISEASE INITIAL CONSULT NOTE SERVICE DATE: 07/30/2024 The patient consented to the use of NoWait software for draft documentation of the visit consistent with [facility] s Notice of Privacy Practices. Subjective Patient [...] to difficulty swallowing pills. - Moved to [place] before completing follow-up to confirm resolution of the infection. - Has experienced recurrent pulmonary infections, including pneumonia and bronchitis, over the past2 years she has struggled witch coughing, clear sputum production; no SOB Given steroids and antbx courses (doxycycline is what she can tolerate) has been unable to maintain a job the past year due to coughing Saw Dr oDw 06/2024 - she was scheduled for bronch with biopsy and BAL - Underwent a bronchoscopy with BAL on July 09, 2024, revealing necrotizing granulomatous inflammation with fungal yeast consistent with histoplasma. she thinks had flared up more her symptoms After biopsy, she felt very sick. this was followed by high fevers for the next 2 weeks -- she got admitted to [facility] (no records available) nauseated 24/7, lost 14 [...] was for her to get transferred to [facility] however she waited there for 6 days while waiting for an MD bed at [facility]. She was finally discharged from [facility] yesterday after stabilization with antibiotics no records available. She is currently off of antibiotics. - Denies hemoptysis, - Has seen rheumatology twice, but elevated inflammatory markers were not feltto be related to an autoimmune cause. Medication Allergies: - Allergic to penicillins, amoxicillin, azithromycin, clarithromycin, metronidazole, sulfamethoxazole, trimethoprim, and trazodone. 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 - Lives alone in [place], [place]. - No pets. 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 lived in [place] then transferred to [place] in 2021 PAST MEDICAL HISTORY Diagnosis Date [...] of granulomatous processes. Mild lower mediastinal and righthilar lymphadenopathy likely related to a similar process. [...] ID pharmacy RTC 08/2024 Marta Walters MD, [facility] Staff Physician Dept of Infectious Disease [facility] I spent a total of 90 minutes on the date of the service which included preparing to see the patient, slkw-ne-etgn patient care, completing clinical documentation, obtaining and/or reviewing separately obtained history, performing a medically appropriate examination, counseling and educating the pat ient/family/caregiver, ordering medications, tests, or procedures, independently interpreting results (not separately reported), and communicating results to the patient/family/caregiver. documented in this encounterUniversity Hospitals Conneaut Medical Center03-11-2025 Note. MICRO - Microbiology PROCEDURE: Blood Culture (bacterial) [...] Locations *1: This test was performed at: [address]03-11-2025 Note. MICRO - Microbiology PROCEDURE: Blood Culture (bacterial) [...] Locations *1: This test was performed at: [address]03-10-2025 Telephone encounter Note* Telephone Encounter - Danica Ugarte RN - 07/28/2024 1:58 PM EDT Ms Bharati called because she was supposed to be transferred from her local hospital in [facility] to [facility]. Dr Ferguson had already accepted her transfer and the patient has heard nothing about bed availability at the [facility].She stated that the facility she is in, is going to discharge her if she does not get transferred out today. Spoke with Dr Ferguson. Confirmed there is no bed availability for bed transfer at this time. Bed availability is reliant on future discharges Dr Ferguson instructed that the patient should call Dr Olson her PCP for guidance. Danica Ugarte RN [facility]03-10-2025 Miscellaneous Notes* Telephone Encounter - Danica Ugarte RN - 07/28/2024 1:58 PM EDT Ms Calabrese called because she was supposed to be transferred from her local hospital in [facility] to [facility]. Dr Ferguson had already accepted her transfer and the patient has heard nothing about bed availability at the [facility].She stated that the facility she is in, is going to discharge her if she does not get transferred out today. Spoke with Dr Ferguson. Confirmed there is no bed availability for bed transfer at this time. Bed availability is reliant on future discharges Dr Ferguson instructed that the patient should call Dr Olson her PCP for guidance. Danica Ugarte RN documented in this encounterUniversity Hospitals Conneaut Medical Center03-09-2025 Note. MICRO - Microbiology PROCEDURE: Blood Culture (bacterial) [...] Locations *1: This test was performed at: [address], [facility] , [facility]03-09-2025 Note. MICRO - Microbiology PROCEDURE: Blood Culture (bacterial) [...] Locations *1: This test was performed at: [address], [facility] , [facility]03-08-2025 Note. MICRO - Microbiology PROCEDURE: Blood Culture (bacterial) [*1] SOURCE: Blood BODY SITE: Anticubital, Right COLLECTED DATE/TIME: 07/22/2024 21:13 EST RECEIVED DATE/TIME: 07/23/2024 16:50 EST START DATE/TIME: 07/23/2024 16:50 EST FREE TEXT SOURCE: FINAL REPORTS Final Report [] Verified Date/Time/Personnel: 07/26/2024 12:03 EST Staphylococcus hominis Isolated from aerobe and anaerobe bottles. Refer to previous culture for susceptibility. [phone] PRELIMINARY REPORTS Preliminary Report [] Verified Date/Time/Personnel: [...] Locations *1: This test was performed at: [facility], [address] [place] [address], [facility] , [facility]03-08-2025 Note. MICRO - Microbiology PROCEDURE: Blood Culture (bacterial) [...] Locations *1: This test was performed at: [address], [address] [place], [place] [address]242103-04-2025 Note. MICRO - Microbiology PROCEDURE: Legionella Urine Ag [...] Locations *1: This test was performed at: [address], [address] [place], [place] 6242103-04-2025 Telephone encounter Note* Telephone Encounter - Anya Rosario - 07/22/2024 12:58 PM EST Patient saw Dr Hardy on 07/09/24 for a Bronchoscopy. We received a call in the office from [facility]. Patient is pending discharge today and Yasmine would like to speak to a clinical staff before discharge to discuss treatment and or follow, if any. Neda can be reached at [phone] [facility]03-04-2025 Miscellaneous Notes* Telephone Encounter - Anya Rosario - 07/22/2024 12:58 PM EST Patient saw Dr Hardy on 07/09/24 for a Bronchoscopy. We received a call in the office from [facility]. Patient is pending discharge today and Yasmine would like to speak to a clinical staff before discharge to discuss treatment and or follow, if any. Neda can be reached at [phone] documented in this encounterUniversity Hospitals Conneaut [facility] Center03-02-2025 Hospital Discharge instructions Patient Education 07/20/2024 10:43:25 Viral Syndrome [...] tests to know the difference. Watch for thewarning signs listed below for when to seek medical advice. Home care Follow these guidelines for taking care of yourself at home: If symptoms are severe, rest at home for the first 2 to 3 days. Stay away from cigarette smoke - both your smoke and the smoke from others. You may use gsfu-byg-fqhfaso acetaminophen or ibuprofen for fever, muscle aching, [...] replacement and sports drinks; and decaffeinated teas andcoffee. If you have been diagnosed with a kidney disease, ask your healthcare provider how much andwhat types of fluids you should drink to prevent dehydration. If you have kidney disease, drinking too much fluid can cause it build up in the your body and be dangerous to your health. Jclg-arh-cvurcqy remedies won't shorten the length of the [...] or as directed by your healthcare provider [phone] [employer]. [address] [place] [address]. All rights reserved. This information is not intended as a substitute for professional medical care. Always follow yourhealthcare professional's instructions. Follow Up Care 07/20/2024 09:18:05 With:JACK PRIEST Address: [address] [place] [address] [place] [address]- [phone] Business (1) When:3-5 days Comments:Follow-up as needed if symptoms are not improving.Drink plenty of fluids and rest.Continue alternating doses of Tylenol and Motrin for pain and fever as needed.Use Tessalon as prescribed for cough and Zofran for nausea and vomiting as needed. Return to the ED if symptoms worsen. [facility] 03-02-2025 Note Discharge Instructions Thank you for allowing [facility] to assist you with your healthcare needs. The following is importantdischarge information regarding your hospital visit. What to Do Next Instructions from Your Care Team No qualifying data available. Post Acute Orders No qualifying data available. You Need to Schedule the Following Appointments Follow Up with JACK PRIEST When:Within 3-5 days [facility] [facility] [place] [address]- [phone] Business (1) Additional Information: Follow-up as needed if symptoms are not improving. Drink plenty of fluids and rest. Continue alternating doses of Tylenol and Motrin for pain and fever as needed. Use Tessalon as prescribed for cough and Zofran for nausea and vomiting as needed. Return to the EDif symptoms worsen. Allergies Bactrim Rash Flagyl Rash [...] Miscellaneous Medication) See instructions Takes Blood Sugar Ke[place], 1 cap daily Please take this list [...] tests to know the difference. Watch for thewarning signs listed below for when to seek medical advice. Home care Follow these guidelines for taking care of yourself at home: If symptoms are severe, rest at home for the first 2 to 3 days. Stay away from cigarette smoke - both your smoke and the smoke from others. You may use qgiv-kow-bixktdr acetaminophen or ibuprofen for fever, muscle aching, [...] replacement and sports drinks; and decaffeinated teas andcoffee. If you have been diagnosed with a kidney disease, ask your healthcare provider how much andwhat types of fluids you should drink to prevent dehydration. If you have kidney disease, drinking too much fluid can cause it build up in the your body and be dangerous to your health. Kxrg-jas-vwjlfvn remedies won't shorten the length of the [...] or as directed by your healthcare provider [phone] [employer]. [address] [place] [address]. All rights reserved. This information is not intended as a substitute for professional medical care. Always follow yourhealthcare professional's instructions. Additional Information VACCINATE! IT SAVES LIVES! Members of the community who have not yet received the COVID-19 vaccine and would like to receive it can visit one of [facility] vaccine clinics. There are many vaccine clinic locations within the [facility]. For locations and available times, please visit www.[email or web address].[place].gov/. It is important to note that some COVID mobile vaccine clinics are held outdoors and may be canceled in rainy or stormy conditions. To learn more about pediatric vaccinations (ages 5-11), we invite you to visit the [facility] webpage. https://www.[email or web address]/pages/[email or web address]-Ppidn-Ixgznohwybd-Qqedlbpqjc-Bvzll-Vzm stions.htmlTo learn more about the COVID-19 vaccine, we invite you to visit the CDC website for a list of frequently asked questions. https://www.cdc.gov/coronavirus/2019-ncov/vaccines/faq.html [facility] nxtControlChart Patient Portal Access Instructions: Stay connected with your healthcare team and access your personal medical information anytime with the [facility] nxtControlChart Patient Portal. If you would like a full copy of your medical records please contact the [facility] Medical Records Department Sunday through Sunday between 8a.m. and 4:30p.m. Please follow the directions below to access the portal: 1.Access the email account you provided upon registration to the [facility].2.Look for an invitation email from [facility].3.Open the email and access the invitation link: Accept Invitation to [email or web address].Fill in the required adames to create your account. Sign into [email or web address] with your username and password that you [...] you will allow to register on the [email or web address] Patient Portal for access to your information. You can also access the [email or web address] Patient Portal on the [employer]. Simply click on Health Records under [employer] and then click on the [employer] logo. HOW TO SAFELY DISPOSE OF PRESCRIPTION [...] Call your local pharmacy or go to [email or web address] to find one close to you.3.Make use of household items: Use cat litter or old coffee grounds to dispose medications if other options arenot available. Mix your drugs with these household products, seal them in an airtight container andthrow it into the garbage. Call [facility]: [phone] to be sure your drugs can be [...] drowsiness, such as benzodiazepines, also known as benzos,including diazepam and alprazolam, muscle relaxants or sleep aids. Never sell or share prescriptionopioids. This is illegal. Store opioids in a [...] aware that I should contact my doctor. Patient/Chemical Detection Expert Signature: Date/Time: Relationship to Patient: Witness Name/Signature: Date/Time: [facility]02-24-2025 [facility] 07-14-2024 History of Present illness Narrative* Kevin Olson MD - 07/14/2024 8:44 AM EST Images from the original note were not included. [facility] OFFICE VISIT CONSULT 07/14/2024 VIRTUAL VISIT PROGRESS NOTE This is a virtual visit using Azumio Zoom Video Visit. It required patient- provider interaction for the medical decision making as documented below. I have communicated my name and active licensure. The patient's identity and physical location wereverified at the time of this visit. Either the patient or their legal outside dealer sales representative has been informed of the risks and benefits of -- and alternatives to -- treatment through a remote evaluation andconsents to proceed with the evaluation remotely. Patient Name: Matt Calabrese PRIMARY CARE PHYSICIAN: Jack Priest, BIOMATHEMATICIAN, BIOMATHEMATICIAN REASON FOR CONSULT: Follow up results from [...] - Follows w/ Dr. Marquita Chavez at [facility] --> if needs biopsy, would obtain micro [...] in agreement. Kevin Olson MD, Staff, Respiratory [facility] HISTORY OF PRESENT ILLNESS: Matt Calabrese is a 24 year old female with a PMH significant for pulmonary histoplasmosis, suspected cirrhosis, obesity presenting for follow up of results after recent bronchoscopy done for evaluation of LAD and pulm nodules. Hx of pulmonary histoplasmosis LAD Pulmonary nodules - Diagnosed with histoplasma 5yrs ago (~2019) while living in [place]. She is uncertain what led to the diagnosis but was coughing at that time. She completed 6wks of itraconazole with okay tolerability (struggles at baseline with GI sx) with plan for repeat bronchoscopy (Id in 2021). However, [place] prior to this procedure. - She continued with issues of chronic coughing, sensation of lungs burning, and clear, thick mucusin the morning upon awakening (rarely green). - She underwent PFTs (jeovany, DLCO) which were WNL. MCT was also WNL. - ENT evaluation was negative for sinus issues. Additionally, she denies sinus issues -- nasal congestion, rhinorrhea, PND. - She's been intermittently treated w/ PO steroids and abx w/o significant improvement. ICS as havenot been helpful. - CT imaging for the [...] Follows w/ GI: Dr. Marquita Chavez at [facility] - No prior evaluation for hepatic histoplasmosis. [...] TIREDNESS CAN TAKE FULL TAB PHYSICAL EXAM: [facility] 01/22/2024 - Virtual visit Physical Exam [...] PORT Result Date: 07/09/2024 IMPRESSION: See result. 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: [facility] Transcribe Date/Time: Jul 09 2024 2:54P Dictated by : ADONAY MCKENZIE MD This examination was interpreted and the report reviewed and electronically signed by: ADONAY MCKENZIE MD on Jul 09 2024 2:54PM EST XR CHEST 2V FRONTAL/LAT Result Date: 08/03/2023 IMPRESSION: No definite acute radiographic abnormality. 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: [facility] Transcribe Date/Time: Aug 03 2023 11:36A Dictated by : AMADA CERRATO MD This examination was interpreted and the report reviewed and electronically signed by: AMADA CERRATO MD on Aug 03 2023 11:39AM EST CT CHEST WO IVCON Result Date: 04/07/2024 IMPRESSION: Stable lung nodules and faintly calcified thoracic lymphadenopathy, compatible with granulomatous process and likely related to reported histoplasmosis, DDx includes sarcoidosis. 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: WILL Transcribe Date/Time: Apr 07 2024 10:30A Dictated by : KENYETTA RUVALCABA MD This examination was interpreted and the report reviewed and electronically signed by: VALERIE AYERS MD on Apr 07 2024 11:41AM EST Echocardiogram: Recent Results (from the past 59641 hours) ECHO Collection Time: 08/13/23 9:33 AM [...] Kevin Olson MD, FAAP, FACP Staff, Respiratory [facility] CC: Jack Priest, BIOMATHEMATICIAN, BIOMATHEMATICIAN Kevin Olson MD documented in this encounterUniversity Hospitals Conneaut Medical Center02-19-2025 [facility]02-12-2025 NoteT[facility]02-12-2025 History of Present illness Narrative* Skye Giraldo MD - 07/02/2024 3:[address] Lenora Dow, Thank you for [...] feel it is necessary. Thank you again. Skye Aranda MD 07/02/2024 3:40 PM TO BRONCHOSCOPY TEAM: [...] on anticoagulants/anti-plt therapy? No Nursing Considerations: (ie: retirement, TB, respiratory isolation, etc.) none Diagnosis/Reason for Bronchoscopy: Sarcoid protocol; though changes may be from remote histo. I do not think I would do TBBx, but will defer to cluster bore operator. Referred by: Lenora Dow MD Reviewed [...] 0.3 04/14/2024 Abs Neut 3.63 04/14/2024 Abs [place] 0.43 04/14/2024 Abs Eosin 0.09 04/14/2024 Abs [...] - 0.96 mg/dL Final documented in this encounterUniversity Hospitals [facility]aut [facility] Center02-12-2025 History of Present illness Narrative* Lenora Dow MD - 07/02/2024 2:15 PM EST Images from the original note were [...] (felt to be secondary to histoplasmosis (stable 8420-0978) who presents today for followup and to discuss bronchoscopy. In discussing with her today, she states that she was diagnosed with histoplasmosis about 5 years ago when she was living in [place]. She is uncertain of the types of symptoms that ultimately led tothis diagnosis, but was coughing and was treated with itraconazole for 6 weeks. She states that dueto ongoing issues with coughing and sputum production, [place] in [place], but she moved to [place] before this was able to be done. [...] states. She now treats these episodes with mzwk-cze-ilvmzwl cold medication and essential oils. She has a history of asthma in her childhood but more recent testing for this has not been convincing for asthma. Additionally, inhaled steroids have not been helped. She is not currently on any maintenance inhalers. She has followed in the lung nodule clinic over the last couple of years. She has several scatteredlung nodules, largest 10 mm in the RML. [...] been able to establish care with a radio disc jockey. Notably she receives her care through [facility], [facility], and [facility] so not all records are within one system. She states that a bronchoscopy has been recommended by other providers. She is a never smoker. 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 She [...] COLONOSCOPY SCREENING 2017 EGD 09/14/2023 EGD W/O [facility] SPEC VARICIES INJ 2017 EGD W/O [facility] SPEC VARICIES INJ 2023 NEXPLANON [...] (felt to be secondary to histoplasmosis (stable 9020-2700) who presents today for followup and to [...] mild and have been stable over the lastcouple of years. However given ongoing concern for [...] which included preparing to see the patient, bqws-kg-ynfz patient care, and completing clinical documentation. documented in this encounterUniversity Hospitals Conneaut Medical Center02-12-2025 NoteTuscarawas Hospital02-10-2025 [facility]02-10-2025 History of Present illness Narrative* Merry Galvan HUC - 06/30/2024 12:20 PM EST Follow Up Diagnosis: Lung Nodule Follow up Date: 07/02/2024 Follow-Up Scheduled: Yes Pulmonary Follow-Up Type: Lung Nodule Surveillance and Diagnostic Work-up Enrolled in Lung Nodule program: Yes Lung Nodule Program Location: [facility] documented in this encounterUniversity Hospitals Conneaut Medical Center01-02-2025 Note. MICRO - Microbiology PROCEDURE: Urine Culture [...] Locations *1: This test was performed at: [facility], [address] [place] [address], [phone]- , [facility]12-20-2024 Hospital Discharge instructions Patient Education 05/09/2024 11:29:30 Thrombophlebitis, Superficial Superficial Thrombophlebitis The superficial veins are the veins near the surface of the skin. Superficial thrombophlebitis is aproblem that occurs when one or more of [...] chest, arm, shoulder, neck, or upper back 9350-3237 [employer]. [address] [place] [address]. All rights reserved. This information is not intended as a substitute for professional medical care. Always follow yourhealthcare professional's instructions. Follow Up Care 05/09/2024 10:38:53 With:JACK PRIEST Address: [address] [place] [phone] When:2-4 days [facility] 12-20-2024 Note Discharge Instructions Thank you for allowing [facility] to assist you with your healthcare needs. The following is importantdischarge information regarding your hospital visit. Diagnosis from Today's Visit Superficial thrombophlebitis of arm What to Do Next Instructions from Your Care Team No qualifying data available. Post Acute Orders No qualifying data available. You Need to Schedule the Following Appointments Follow Up with JACK PRIEST When:Within 2-4 days Where:[address] [place] [phone] Allergies Zithromax Hives amoxicillin penicillin penicillins Hives traZODone Suicidal ideation Medications Please ask your primary doctor or pharmacist before taking any other medication not listed, including over the counter drugs, herbal medications, vitamins and or supplements as they may interact with[facility] home medications. What How Much When Why [...] Miscellaneous Medication) See instructions Takes Blood Sugar Keota, 1 cap daily Please take this list [...] surface of the skin. Superficial thrombophlebitis is aproblem that occurs when one or more of [...] chest, arm, shoulder, neck, or upper back 4123-7020 [employer]. [address] [place] [address]. All rights reserved. This information is not intended as a substitute for professional medical care. Always follow yourhealthcare professional's instructions. Additional Information VACCINATE! IT SAVES LIVES! Members of the community who have not yet received the COVID-19 vaccine and would like to receive it can visit one of [facility] vaccine clinics. There are many vaccine clinic locations within the [facility]. For locations and available times, please visit www.gettheshot.coronavirus.[place].gov/. It is important to note that some COVID mobile vaccine clinics are held outdoors and may be canceled in rainy or stormy conditions. To learn more about pediatric vaccinations (ages 5-11), we invite you to visit the [facility] webpage. https://www.[facility].org/pages/6434-Hfpss-Hsazxddiuzx-Uknyqyabvk-Hemad-Lwb stions.htmlTo learn more about the COVID-19 vaccine, we invite you to visit the CDC website for a list of frequently asked questions. https://www.cdc.gov/coronavirus/2019-ncov/vaccines/faq.html [facility] OneChart Patient Portal Access Instructions: Stay connected with your healthcare team and access your personal medical information anytime with the [employer] Patient Portal. If you would like a full copy of your medical records please contact the [facility] Medical Records Department Sunday through Sunday between 8a.m. and 4:30p.m. Please follow the directions below to access the portal: 1.Access the email account you provided upon registration to the [facility].2.Look for an invitation email from [facility].3.Open the email and access the invitation link: Accept Invitation to [facility] [employer]4.Fill in the required adames to create your account. Sign into [email or web address] with your username and password that you [...] you will allow to register on the [employer] Patient Portal for access to your information. You can also access the [employer] Patient Portal on the [employer] leola. Simply click on Health Records under [employer] and then click on the Linda logo. [...] Call your local pharmacy or go to [email or web address] to find one close to you.3.Make use of household items: Use cat litter or old coffee grounds to dispose medications if other options arenot available. Mix your drugs with these household products, seal them in an airtight container andthrow it into the garbage. Call [facility]: [phone] to be sure your drugs can be [...] drowsiness, such as benzodiazepines, also known as benzos,including diazepam and alprazolam, muscle relaxants or sleep aids. Never sell or share prescriptionopioids. This is illegal. Store opioids in a [...] aware that I should contact my doctor. Patient/Chemical Detection Expert Signature: Date/Time: Relationship to Patient: Witness Name/Signature: Date/Time: [facility]12-15-2024 Note. MICRO - Microbiology PROCEDURE: Urine Culture [*1] SOURCE: Urine, Clean Catch BODY SITE: COLLECTED DATE/TIME: 05/03/2024 10:12 EST RECEIVED DATE/TIME: 05/03/2024 16:44 EST START DATE/TIME: 05/03/2024 16:45 EST FREE TEXT SOURCE: FINAL REPORTS Final Report [] Verified Date/Time/Personnel: 05/04/2024 14:17 EST <10,000 cfu/ml. No Significant growth. Sensitivity not indicated. Performing Locations *1: This test was performed at: [address], [address] [place], [place] [address]12-12-2024 Note. MICRO - Microbiology PROCEDURE: Urine Culture [...] Locations *1: This test was performed at: [address], [address] [place], [place] [address]12-06-2024 Evaluation + Plan noteExtracted from: Title:History and Physical Author:JEREMÍAS WHITE MD Date:04/25/24 Abnormal uterine bleeding (A UB) to OR for [facility] BS follow up in 2 weeks [...] within 2 hrs), Blood, Once, Preferred Lab: [facility], Stop date 04/25/24 6:07:00 EST Vital Signs, 04/25/24 6:07:00 EST, 04/25/24 6:07:00 EST Future Appointments Appointment Date:05/01/2024 08:00:00 PM Scheduled Provider: Location:[facility] Appointment Type:SL C-PAP (Continuous Positive Airway Pre Appointment Date:05/02/2024 03:00:00 PM Scheduled Provider:JACK PRIEST Location:[facility] Appointment Type:PC OV Appointment Date:05/05/2024 09:30:00 AM Scheduled Provider: Location:[facility] Appointment Type:NUT Diet Visit Individual Appointment Date:06/09/2024 09:00:00 AM Scheduled Provider:JACK PRIEST Location:[facility] Appointment Type:PC OV Appointment Date:07/16/2024 04:00:00 PM Scheduled Provider:JACK PRIEST Location:[facility] Appointment Type:PC OV [facility] 12-06-2024 Hospital Discharge instructions Patient Education [...] what activities are safe for you. Take tvox-nmj-jccucxv and prescription medicines only as told by [...] 08/13/2001 Document Revised: 05/10/2018 Document Reviewed: 12/21/2017 [employer] Patient Education 2020 [employer]. 04/25/2024 07:36:22 Total Laparoscopic Hysterectomy, Care After [...] and water are not available, use hand flaking roll operator. ?Change your dressing as told by your [...] told by your health care provider. Take hchh-bpr-drvtdal and prescription medicines only as told by [...] your urine clear or pale yellow. ?Take acqr-nnq-ygixphn or prescription medicines. ?Eat foods that are [...] 02/25/2014 Document Revised: 04/19/2018 Document Reviewed: 07/18/2017 [employer] Patient Education 2020 [employer]. 04/25/2024 07:36:12 Postop instructions The following instructions [...] ibuprofen, or will be instructed to take hdmd-rtb-mspgdwe ibuprofen. You may be given a prescription [...] Care 02/05/2024 10:43:50 With:ARIEL WHITE MD Address: [address] [place] [phone] When:Within 2 Week(s) Comments:CALL TO SCHEDULE FOLLOW UP APPOINTMENT [facility] 12-06-2024 Summary of episode note Discharge Instructions Thank you for allowing [facility] to assist you with your healthcare needs. The following is importantdischarge information regarding your hospital visit. Your Care Team JACK PRIEST Your Diagnosis Abnormal uterine bleeding (AUB) Chronic pelvic pain in female Postoperative pain What to do next Scheduled Follow-Up Appointments Appointment Type When With Where Contact Information StatusSL C-PAP (Continuous Positive Airway Pre05/01/2024 08:00 PM [facility] [phone] Confirmed PC OV 05/02/2024 03:00 PM JACK HAMMER [address] [phone] Confirmed NUT Diet Visit Individual 05/05/2024 09:30 AM [facility] Diet Visits [phone] Confirmed PC OV 06/09/2024 09:00 AM JACK HAMMER [address] [phone] Confirmed PC OV 07/16/2024 04:00 PM JACK HAMMER [address] [phone] Confirmed Follow Up Appointments Follow Up with ARIEL WHITE MD When:In 2 weeks Where:[address] [place] [phone] Additional Information: CALL TO SCHEDULE FOLLOW UP [...] Duration: 14 Days Refills: 1 Pickup at [facility] New acetaminophen-oxyCODONE (Percocet 5 mg-325 mg oral tablet) 1 tab(s) by mouth Every 6 hours as needed for for pain Postoperative pain Duration: 7 Days hold naltrexone until pain medication completed not to exceed 4000 mg acetaminophen per day Pickup at [facility] New ibuprofen (ibuprofen 800 mg oral tablet) 1 tab(s) by mouth Every 8 hours Duration: 14 Days Pickup at [facility] Unchanged DME (Prescription MISCellaneous) See instructions Migraines [...] Miscellaneous Medication) See instructions Takes Blood Sugar Keota, 1 cap daily Unchanged valACYclovir (valACYclovir 1 g oral tablet) 1 tab(s) by mouth Two (2) times a day Duration: 5 Days Pharmacy Information [facility]: [address] [place] [address] [address] [place], [place] [phone] Please take this list to your next [...] may report side effects to FDA at [phone]-[phone]. What other drugs will affect acetaminophen and [...] affect acetaminophen and oxycodone, including prescription and hzni-gfi-kibfpns medicines, vitamins, and herbal products. Not all [...] to ensure that the information provided by [employer]. ('[employer]') is accurate, up-to-date, and complete, but no guarantee is made to that effect. Drug information contained herein may be time sensitive. [employer] information has been compiled for use by healthcare practitioners and consumers in the [place] and therefore [employer]Out does not warrant that uses outside of the [place] are appropriate, unless specifically indicated otherwise. [employer] drug information does not endorse drugs, diagnose patients or recommend therapy. [employer] drug information isan informational resource designed to [...] effective or appropriate for any given patient. [employer] does not assume any responsibility for any aspect of healthcare administered with the aid of information [employer]Out provides. The information contained herein is not intended to cover all possible uses, directions, precautions, warnings, drug interactions, allergic reactions, or adverse effects. If you have questions about the drugs you are taking, check with your doctor, nurse or pharmacist. Copyright 1553-4577 [employer]. Version: 22.. Revision Date: 12/21/2022. Education Materials [...] what activities are safe for you. Take vddk-xxy-nvyllbi and prescription medicines only as told by [...] 08/13/2001 Document Revised: 05/10/2018 Document Reviewed: 12/21/2017 [employer] Patient Education 2020 [employer]. Total Laparoscopic Hysterectomy, Care After This sheet [...] and water are not available, use hand flaking roll operator. ? Change your dressing as told by [...] told by your health care provider. Take ntrm-yvr-ylryuvs and prescription medicines only as told by [...] urine clear or pale yellow. ? Take agfc-ikg-mwbulig or prescription medicines. ? Eat foods that [...] 02/25/2014 Document Revised: 04/19/2018 Document Reviewed: 07/18/2017 [employer] Patient Education 2020 [employer]. The following instructions will help you know [...] ibuprofen, or will be instructed to take ubhb-xdo-fkrzhgj ibuprofen. You may be given a prescription [...] to receive it can visit one of [facility] vaccine clinics. There are many vaccine clinic locations within the [facility]. For locations and available times, please visit https://gettheshot.coronavirus.[place].gov/. It is important to note that some COVID mobile vaccine clinics are held outdoors and may be canceled in rainy or stormy conditions. To learn more about pediatric vaccinations (ages 5-11), we invite you to visit the [facility] webpage. https://www.[facility].org/pages/1626-Yvezr-Jmcihfhjnnt-Jqoltadatp-Htmgv-Yid stions.htmlTo learn more about the COVID-19 vaccine, we invite you to visit the CDC website for a list of frequently asked questions.https://www.cdc.gov/coronavirus/2019-ncov/vaccines/faq.html [email or web address] Patient Portal Access Instructions: Stay connected with your healthcare team and access your personal medical information anytime with the [email or web address] Patient Portal. Please follow the directions below to create your [email or web address] account: 1.Access the email account you provided upon registration to the hospital/physician office.2.Look for an invitation email from [facility].3.Open the email and access the invitation link: AcceptInvitation to [email or web address].4.Fill in the required adames to create your account. To access your account, visit [employer]. Click the blue button labeled Access Patient [...] who you will allowto register on the [facility] for access to your information. You can also access the [facility] on the [place] [employer] leola. Simply click on Patient Portal and then log into your account. If you would like to receive a full copy of your medical records, please contact the [facility] Medical Records Department by calling [phone], Sunday through Sunday between 8 a.m. and [...] Call your local pharmacy or go to [email or web address] [email or web address] to find one close to you.3.Make use of household items: Use cat litter or old coffee grounds to dispose medications if other options arenot available. Mix your drugs with these household products, seal them in an airtight container andthrow it into the garbage. Call [facility]: [phone] to be sure your drugs can be [...] that I should contact my d octor. Patient/Chemical Detection Expert Signature: Date/Time: Relationship to Patient: Witness Name/Signature: Date/Time: [facility]12-06-2024 Anesthesiology Consult note Patient: MATT CALABRESE Age: 23 years Sex: Female : 2000 Associated Diagnoses: None Author: FLORENTINO PORTILLO APRN-ENVIRONMENTAL MANAGER Assessment Postanesthesia assessment Vitals: Vital signs from [...] by FLORENTINO PORTILLO on 04/25/2024 09:22 AM [facility]12-06-2024 Anesthesiology Consult note Patient: MATT CALABRESE [...] Miscellaneous Medication: See Instructions, Takes Blood Sugar Keota, 1 cap daily, 0 Refill(s) QUEtiapine 50 [...] Problem list: Medical Anxiety / SNOMED CT 14182239 / Confirmed Asthma / SNOMED CT 051468874 / Confirmed Morbid obesity with BMI of 40.0-44.9, adult / SNOMED CT 4103451701 / Confirmed Borderline personality disorder / SNOMED CT 91044640 / Confirmed Chronic back pain / SNOMED CT 004405205 / Confirmed Cyst of left breast / SNOMED CT 3218372643 / Confirmed Ganglion cyst of finger of left hand / SNOMED CT 866241464707431 / Confirmed History of trauma / SNOMED CT 013117335 / Confirmed Personal history of nonsuicidal self-harm / SNOMED CT 1286509830 / Confirmed History of vitamin D deficiency / SNOMED CT 9660720178 / Confirmed S/P bilateral breast reduction / SNOMED CT 0969457937 / Confirmed Urinary frequency / SNOMED CT 596870214 / Confirmed Migraines / SNOMED CT 24013241 / Confirmed Multiple nodules of lung / SNOMED CT 3819265706 / Confirmed Pulmonary nodules / SNOMED CT 3424384652 / Confirmed Chronic nausea / SNOMED CT 1364717329 / Confirmed Pneumonia / SNOMED CT 558962467 / Confirmed Major depressive disorder, recurrent episode, severe with anxious distress / SNOMED CT 3701651291 /Confirmed Sleep pattern disturbance / SNOMED CT 6950754720 / Confirmed Superficial thrombophlebitis of arm / SNOMED CT 055135958 / Confirmed, Active Problems (20) Anxiety Asthma [...] Father Muscle weakness Mother Procedure history: Cholecystectomy ([id number]) in 2019 at 18 Years. Bone structure of middle phalanx of ring finger of left hand ([id number]). Breast reduction (). Social History: Social & Psychosocial Habits Alcohol 04/16/2024 Use: Never Substance Abuse 04/16/2024 Use: Never Tobacco 04/16/2024 Tobacco Use: Never (less than 100 in l Exposure to Tobacco Smoke Lives in non-smoking home Home/Environment 04/16/2024 Living situation: Home/Independent Domestic Concerns None Primary Tube Depatcher: Self Current Home Treatments None Special Services [...] Signs (last 24 hrs) Last Charted Temp Fcksutvg88.4 DegC (APR 25 06:40) Heart Rate Gdvttgsaj33 bpm (APR 25 07:55) SBP97 mmHg (APR 25 07:56) DBP61 mmHg (APR 25 07:56) BMI39.95 (APR 25 06:31) Measurements from flowsheet : Measurements 04/25/2024 6:31 EST Height 159 cm Height in inches 62.6 inch(es) Admission Weight 101 kg Weight Lbs 222.2 lb Sontag Body Weight 51.48 kg BSA Admission 2.01 [...] Type CATH MATHEWS 16FR 5CC SILICONE 12/CA 678649 SN - TDC - DC'd at End [...] Surgeon SN - CAt - Role Performed Tin Whiz Machine Operator 1 SN - CAt - Role Performed Scrub 1 SN - CAt - Role Performed Operations Planner 1 SN - CAt - Role Performed ENVIRONMENTAL MANAGER 04/25/2024 7:56 EST Systolic Blood Pressure Non-Invasive [...] metroNIDAZOLE 500 mg mg 04/25/2024 7:23 EST [facility] History & Physical History and Physical [...] Bowel Sounds All Quadrants Present Skin Description Agnew, Normal for ethnicity, Dry Skin Integrity Intact [...] no difficulties IV Present Present Allergies Yes Hydrogen Plant Operations Manager On Yes Consent Form Signed Yes Patient [...] Designated Person #1 We May Share PHONG Caldwell-[phone] Designated Person #1 Relationship Friend Privacy Restrictions Requested None Height 159 cm Height in inches 62.6 inch(es) Admission Weight 101 kg Weight Lbs 222.2 lb Sontag Body Weight 51.48 kg BSA Admission 2.01 [...] Method Explanation, Printed materials Preferred Spoken Language Haitian Preferred Written Language Haitian Patient Care Education Pain management strategies Teaching Evaluation No further teaching needed Safety Brochure Information Reviewed Yes [facility] Video Viewed No Patient's Current Physicians Patient's [...] Negative QC PRGUP Positive 04/24/2024 0:25 EST ELASTIC ASSEMBLER Phone Message RE: Hysterectomy . Assessment and Plan [place] Society [employer] Anesthesiologists (ASA) physical status classification: Class III. Anesthetic Preoperative Plan Anesthetic technique: General. Informed consent: signed by patient. Digitally Signed by FLORENTINO PORTILLO on 04/25/2024 08:07 AM [facility]12-06-2024 Note History of Present Illness 23 yo presents for for [facility] BS andd Cystoscopy for AUB and chronic pelvic pain most recent mesnes was 24 days long genetic carrier panel negative coagulopathy testing negative PATENT COUNSEL history: Menarche: unsure Menses: menometrorraghia Menopause: n/a [...] > 20% Colonoscopy: normal DXA: NA Family PATENT COUNSEL history: Breast/colon/ovarian/uterine cancer: breast cancer mother and [...] Abnormal uterine bleeding (AUB) to OR for TLH BS follow up in 2 weeks for [...] within 2 hrs), Blood, Once, Preferred Lab: [facility], Stop date 04/25/24 6:07:00 EST Vital Signs, [...] Living situation: Home/Independent. Domestic Concerns: None. Primary Tube Depatcher: Self. Current HomeTreatments None. Professional Skilled Services [...] ARIEL WHITE MD on 04/25/2024 07:26 AM [facility]11-26-2024 NoteHNO ID: [id number] Author: MERRY GALVAN HUC Service: ? Author Type: Electronics Assembler Type: Progress Notes Filed: 04/15/2024 15:50 Note Text: Awaiting Program Status Waiting [facility] office noteT[facility]11-26-2024 History of Present illness Narrative* Merry Galvan HUC - 04/15/2024 3:50 PM EST Awaiting Program Status Waiting for office note documented in this encounterUniversity Hospitals [facility]aut [facility]11-26-2024 Telephone encounter Note * Telephone Encounter - Jovanna Miner LPN - 04/15/2024 8:36 AM EST Patient notified. Jovanna Miner LPN [facility]11-26-2024 Miscellaneous Notes* Telephone Encounter - Jovanna Miner [...] iron. Young Marsh DO documented in this encounterUniversity Hospitals Conneaut Medical Center11-26-2024 Telephone encounter Note * Telephone Encounter - Young Marsh DO - 04/15/2024 6:49 AM EST Advise her to start OTC ferrous sulfate 325 mg every other day. Best taken with OJ on and empty stomach. Follow up with PCP in about 3 months for a recheck of iron. Young A Masci, DO [facility] Work Phone: [phone] 868-381611-25-2024 NoteTuscarawas Hospital11-25-2024 History of Present illness Narrative* Young Marsh, - 04/14/2024 3:45 PM EST Hematologic problem(s): 1) SVT. 2) Elevated factor VIII:C and CRP. HPI: The patient is a 23-year-old female with a past medical history as outlined below. 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 Cough and dyspnea. Was told biopsy not indicated due to ?blood disorder. Nexplanon right arm 12/17/2023 done here. SVT in right arm 12/25/2023 US. Managed with low dose ASA and warm compresses. Nexplanon removed by chemical dependency attendant at [place]. No personally history DVT. Doesn't know her [...] No jaundice or rash. No petechiae. NEUROLOGIC: audit practice intern II-XII are grossly intact. No focal motor weakness. DTRs are symmetric and normal. MUSCULOSKELETAL: No joint swelling or tenderness. No muscle wasting. NGS/biomarkers/trash truck driver mutation analyses: Recent genetic testing [...] necessary. Young Marsh DO documented in this encounterUniversity Hospitals Conneaut Medical Center11-19-2024 NoteTuscarawas Hospital11-19-2024 History of Present illness Narrative* Lul Carranza APRN.CNP - 04/08/2024 8:29 AM EST Images from the original note were not included. [facility]UNG NODULE [facility] ([facility] Follow Up) Impression / Recommendations 1. [...] if cough and mucus persist. Lul Carranza APRN.BIOMATHEMATICIAN Follow Up Follow Up Diagnosis: Lung Nodule Recommendation: CT Scan Follow up Date: 04/08/2025 Follow-Up Scheduled: No Pulmonary Follow-Up Type: Lung Nodule Surveillance Enrolled in Lung Nodule program: Yes Lung Nodule Program Location: [facility] Please enter a follow up date: 04/08/25 DISTANCE HEALTH VISIT NOTE I have communicated my name and active licensure. The patient's identity and physical location wereverified at the time of this visit. Either the patient or their legal outside dealer sales representative has been informed of the risks and benefits of -- and alternatives to -- treatment through a remote evaluation andconsents to proceed with the evaluation remotely. This is a virtual visit using [employer]re Video Visit. It required patient- provider interaction [...] DATE OF EXAM: Apr 07 2024 8:27AM [facility] 0541 - CT CHEST WO IVCON [...] related to reported histoplasmosis, DDx includes sarcoidosis. 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: WILL Transcribe Date/Time: Apr 07 2024 10:30A [...] 85 FEV1/FVC POST (%) % 87 84 DJB75-29% PRE (L/S) L/S 3.19 2.95 PGH05-46% POST (L/S) L/S 3.08 3.33 PEF PRE (L/S) L/S 6.71 6.28 PEF POST (L/S) L/S 6.45 6.37 DLCO (ml/min/mmHg) ml/min/mmHg 23.45 VA (L) L 4.42 DLCO/VA (ml/min/mmHg/L) ml/min/mmHg/L 6.62 Impression / Recommendations To optimize physician communication via the electronic health record, the Impression & Recommendations section has been placed at the beginning of this note. Lul Carranza APRN.[facility]ERALD [facility] April 08, 2024 8:29 AM documented in this encounterUniversity Hospitals Conneaut Medical Center11-18-2024 History of Present illness Narrative* Reef Velma [...] PATIENT PRESENTS WITH AN IMPLANTABLE OR ATTACHED DENTAL TECHNICIAN: No RADIOLOGY DEPARTMENT: CT; Exam(s) Completed: Chest PERIPHERAL IV DATA: Not applicable SIGNED BY: RT Bárbara(R) April 07, 2024 9:49 AM documented in this encounterUniversity Hospitals Conneaut Medical Center11-18-2024 NoteTuscarawas Hospital11-12-2024 Telephone encounter Note* Telephone Encounter - Lorrie Tran MA - 04/01/2024 10:46 AM EST Received [facility] Pt Re-iván provider has signed and faxed to [phone] [facility]11-12-2024 Miscellaneous Notes* Telephone Encounter - Lorrie Tran MA - 04/01/2024 10:46 AM EST Received [facility] Pt Re-iván provider has signed and faxed to [phone] documented in this encounterUniversity Hospitals Conneaut Medical Center10-23-2024 Telephone encounter Note * Telephone Encounter - Young Marsh DO - 03/12/2024 5:27 PM EDT Please arrange establish complex visit when schedule permits. Young Marsh DO [facility] Work Phone: [phone]) 237-277910-23-2024 Miscellaneous Notes* Telephone Encounter - Young Marsh DO - 03/12/2024 5:27 PM EDT Please arrange establish complex visit when schedule permits. Young Marsh DO documented in this encounterUniversity Hospitals Conneaut Medical Center10-18-2024 NoteHNO ID: [id number] Author: SOFY CLIFTON CCC-PROPELLANT CHARGE LOADER Service: ? Author Type: Speech Language Pathologist Type: Progress Notes Filed: 03/07/2024 15:27 Note Text: Episode Visit Count: 1 Start of Care Date: 03/07/24 Onset Date: 02/21/24 Patient Identified by Name and Date of : Yes [facility] MODIFIED BARIUM SWALLOW [...] Eat at a slow rate, Limit Distractions PROPELLANT CHARGE LOADER Recommendations: Diet, Swallowing Precautions Results and Recommendations [...] States/Identifies TREATMENT: Performed Modified Barium Swallowing Study (69895). Evaluation: Modified Barium Swallow Evaluation (16173) Education regarding findings from today's Modified Barium Swallowing study (fluoroscopic (more content not included)...[facility]10-18-2024 History of Present illness Narrative* Sofy Clifton, [facility]-PROPELLANT CHARGE LOADER - 03/07/2024 3:26 PM EDT Episode Visit Count: 1 Start of Care Date: 03/07/24 Onset Date: 02/21/24 Patient Identified by Name and Date of : Yes [facility] MODIFIED BARIUM SWALLOW [...] Eat at a slow rate, Limit Distractions PROPELLANT CHARGE LOADER Recommendations: Diet, Swallowing Precautions Results and Recommendations [...] States/Identifies TREATMENT: Performed Modified Barium Swallowing Study (00352). Evaluation: Modified Barium Swallow Evaluation (21184) Education regarding findings from today's Modified Barium Swallowing study (fluoroscopic study) andsuggested plans for treatment were provided to the patient through verbal / written instruction, images and/or demonstration. Patient was able to demonstrate understanding of education provided this date. Billing: Modified Barium Swallow (12221) Total time: 25 minutes Session Start Time : 1205 Session Stop Time : 1230 Sofy Clifton CCC-PROPELLANT CHARGE LOADER documented in this encounterUniversity Hospitals Conneaut Medical Center10-16-2024 Note ORIGINAL EXAMINATION: TWO XRAY VIEWS OF [...] Date: 03/05/2024 2:59:14 PM Ordering Provider[facility] Note ORIGINAL FROM: [place] [address] PROCEDURE FOR: MATTTRAVIS CALABRESE [address] [place] [address] Home: PID#: [id number] Exam#: [id number] : 2000 Age: 23 TO: JACK PRIEST [place] [address] Fax: NO FAX EXAMINATION: ULTRASOUND OF THE [...] Provider: JACK PRIEST CLINICAL: LEFT BREAST PAIN. Dopster: ANDIE VELEZ RT (R, CT), RDMS letter sent: Normal BI-RADS 1 and 2 Ultrasound BI-RADS: 2 [facility]10-08-2024 Note [facility]-08-[facility] History of Present illness Narrative* Orlando Chopra APRN.BIOMATHEMATICIAN - 02/26/2024 12:23 PM EDT Subjective HPI HPI Matt Calabrese is a 23 year old female who presents today for CC of st, congestion, loss voice.This started 4 days ago. Has tried otc medication for relief. Symptoms are worsened by nothing. Risk factors sick exposures recently. Denies possibility of being . nonsmoker. .Patient presents with: Sore Throat: ST, chest congestion, bodyaches, MARVIN and chills x 4 days PAST MEDICAL [...] ear normal. Nose: Nose normal. Mouth/Throat: Lips: Agnew. Mouth: Mucous membranes are moist. Pharynx: Uvula [...] - STREP A MOLECULAR (POC) Orlando Chopra APRN.BIOMATHEMATICIAN documented in this encounterUniversity Hospitals Conneaut Medical Center10-08-2024 Telephone encounter Note * Telephone Encounter - Lorrie Tran MA - 02/26/2024 9:09 AM EDT Provider has signed and faxed back to [phone] [facility]10-08-2024 Miscellaneous Notes* Telephone Encounter - Lorrie Tran MA - 02/26/2024 9:09 AM EDT Provider has signed and faxed back to [phone] * Telephone Encounter - Lorrie Tran MA - 02/22/2024 3:25 PM EDT Received PT Reevaluation faxed from [facility] sent to provider for review and sign documented in this encounterUniversity Hospitals Conneaut Medical Center10-04-2024 Telephone encounter Note * Telephone Encounter - Lorrie Tran MA - 02/22/2024 3:25 PM EDT Received PT Reevaluation faxed from [facility] sent to provider for review and sign [facility]10-02-2024 NoteTuscarawas Hospital10-02-2024 History of Present illness Narrative* Young Marsh DO - 02/20/2024 11:01 AM EDT Patient referred by for SVT. HPI: The patient is a 23-year-old female with a past medical history as outlined below. History of histoplasmosis dx when in [place]. Cough and dyspnea. Was told biopsy not indicated due to ?blood disorder. Nexplanon right arm 12/17/2023 done here. SVT in right arm 12/25/2023 US. Managed with low dose ASA and warm compresses. Nexplanon removed by chemical dependency attendant at [place]. No personally history DVT. Doesn't know her [...] COLONOSCOPY SCREENING 2017 EGD 09/14/2023 EGD W/O [facility] SPEC VARICIES INJ 2017 EGD W/O [facility] SPEC VARICIES INJ 2023 NEXPLANON [...] No jaundice or rash. No petechiae. NEUROLOGIC: audit practice intern II-XII are grossly intact. No focal motor [...] which included preparing to see the patient, keiq-my-vebf patient care, completing clinical documentation, obtaining and/or reviewing separately obtained history, performing a medically appropriate examination, ordering medications, tests, or procedures, communicating with other HCPs (not separately reported), and communicating results to the patient/family/caregiver. Young Marsh DO documented in this encounterUniversity Hospitals Conneaut Medical Center10-02-2024 Telephone encounter Note * Telephone Encounter - Danica Payne - 02/20/2024 10:55 AM EDT Fax received from [facility] recommending modified barium cookie swallow, scanned in [facility] for review Danica Payne [facility]10-02-2024 Miscellaneous Notes* Telephone Encounter - Danica Payne - 02/20/2024 10:55 AM EDT Fax received from [facility] recommending modified barium cookie swallow, scanned in [facility] for review Danica Payne documented in this encounterUniversity Hospitals Conneaut Medical Center09-25-2024 Telephone encounter Note * Telephone Encounter - Danica Payne - 02/13/2024 4:[address] the speech therapy referral in [facility] - I'll fax it to the facility she indicated and we'll go from there Danica [facility]09-25-2024 Miscellaneous Notes* Telephone Encounter - Danica Payne - 02/13/2024 4:[address] the speech therapy referral in [facility] - I'll fax it to the facility she indicated and we'll go from there Danica documented in this encounterUniversity Hospitals Conneaut Medical Center09-25-2024 NoteTuscarawas Hospital09-25-2024 History of Present illness Narrative* Yeny Albright, PhD - 02/13/2024 1:57 PM EDT [facility] Receipt of Outside Records Matt Calabrese [id number] 02/13/2024 On IPW completed 01/02/24, pt endorsed [...] Albright, Ph.D. Clinical Psychologist documented in this encounterUniversity Hospitals Conneaut Medical Center09-18-2024 NoteTuscarawas Hospital09-18-2024 History of Present illness Narrative* Aury Tristan DO - 02/06/2024 12:00 PM EDT Images from the original note were not included. Rheumatology Outpatient Clinic Date of Service: 02/06/2024 Patient: Matt Calabrese Medical Record: [id number] Primary Care Physician: Jack Priest CNP, BIOMATHEMATICIAN Last Rheumatology visit: 08/06/2023 (with Aury Tristan) [...] a spine medical doctor here at the [facility]. Patient-Entered Data PAIN EVALUATION 02/06/2024 1151 [...] which included preparing to see the patient, uznp-gw-xunj patient care, completing clinical documentation, obtaining and/or [...] 2024 Time: 12:00 PM documented in this encounterUniversity Hospitals Conneaut Medical Center09-18-2024 History of Present illness Narrative* Stacy Segura MD - 02/06/2024 10:15 AM EDT Plastic Surgery Note CC: Post op HPI: Matt is a 23 year old female returning today s/p breast reduction on 01/22/2024 Right: 857 grams removed Left: 691 grams removed Pain: 0 out of 10 Fever/chills: denies She has been having some drainage from the left breast and was seen by [facility] care on 02/01/24 for concerns of infection. [...] wear compressive front closing surgical bra/sports bra 11/12 for 6 weeks following surgery. -No water [...] Past Histories independently gathered by the clinical ground crewman mission support and the remaining scribed note accurately describes my personal service to the patient. Stacy Segura MD documented in this encounterUniversity Hospitals Conneaut Medical Center09-18-2024 NoteTuscarawas Hospital09-17-2024 Telephone encounter Note* Telephone Encounter - Marbella Toney - 02/05/2024 12:04 PM EDT Scheduled with patient [facility] Work Phone: 1(419) 356-753009-17-2024 Miscellaneous Notes* Telephone Encounter - Marbella Toney - 02/05/2024 12:04 PM EDT Scheduled with patient * Telephone Encounter - Kalee Padilla - 02/05/2024 11:04 AM EDT Called patient and left a vm patient needs to see or ref provider Jack Priest for dx Superficial Thrombophlebitis of arm documented in this encounterUniversity Hospitals Conneaut Medical Center09-17-2024 Telephone encounter Note * Telephone Encounter - Kalee Padilla - 02/05/2024 11:04 AM EDT Called patient and left a vm patient needs to see or ref provider Jack Priest for dx Superficial Thrombophlebitis of arm [facility]09-13-2024 NoteTuscarawas Hospital09-13-2024 History of Present illness Narrative* Jacquelin Nassar APRN.CNP - 02/01/2024 5:17 PM EDT Images from the original note were not included. Subjective The history is provided by the patient. No geological specialist was used. LUIS Matt Calabrese is a [...] have confirmed and edited as necessary, the [facility] Review of Systems Constitutional: Negative for chills and fever. Musculoskeletal: Negative for joint pain and myalgias. Skin: Negative for itching and rash. Incision check All other systems reviewed and are negative. Objective Physical Exam Vitals and nursing note reviewed. Exam conducted with a director of consumer marketing present. Pulmonary: Effort: Pulmonary effort is normal. [...] discussed with the Patient or Patient's Authorized Chemical Detection Expert. Asapplicable, any other physician, advance practice provider, medical student, or other health professional student that will be observing or involved in the sensitive examination for educational or training purposes was discussed with the Patient or Authorized Chemical Detection Expert. The Patient or Authorized Chemical Detection Expert has agreed to proceed with the sensitive examination. (Sensitive examination includes inspection and/or palpation of the breasts, pelvis, prostate and anorectal regions) documented in this encounterUniversity Hospitals Conneaut Medical Center09-06-2024 History of Present illness Narrative* Stacy Segura [...] wear compressive front closing surgical bra/sports bra 11/12 for 6 weeks following surgery. -No water [...] Past Histories independently gathered by the clinical ground crewman mission support and the remaining scribed note accurately describes my personal service to the patient. Stacy Segura MD January 25, 2024 documented in this encounterUniversity Hospitals Conneaut Medical Center09-06-2024 NoteTuscarawas Hospital09-05-2024 Telephone encounter Note* Telephone Encounter - Mary Grace Gonzalez HUC - 01/24/2024 10:54 AM EDT Please returning call from Romy. States she just missed a call. [facility]09-05-2024 Miscellaneous Notes* Telephone Encounter - Mary Grace Gonzalez HUC - 01/24/2024 10:54 AM EDT Please returning call from Romy. States she just missed a call. documented in this encounterUniversity Hospitals Conneaut Medical Center09-05-2024 Telephone encounter Note * Telephone Encounter - [...] out to her. Please call patient back. [facility]09-05-2024 Miscellaneous Notes* Telephone Encounter - Mary Grace [...] Please call patient back. documented in this encounterUniversity Hospitals Conneaut Medical Center09-03-2024 Surgery Surgical operation note* Brief Op Note - Andie Don MD - 01/22/2024 10:20 AM EDT Images from the original note were not included. PLASTIC SURGERY - BRIEF OP NOTE Patient Name: Matt Calabrese Log ID: [id number] Surgery Date: 01/22/2024 Incision/Procedure Start Time: 7:58 AM Incision Close/Procedure End Time: 10:11 AM Surgeon(s) and Brake Lining Curer(s): Surgeons and Role: * Stacy Segura MD [...] Plan: dc Signature: Andie Don MD Pager: [phone] (Plastic Surgery pager) Date: January 22, 2024 Time: 10:20 AM [facility]09-03-2024 Surgical operation note* Brief Op Note - Andie Don MD - 01/22/2024 10:20 AM EDT Images from the original note were not included. PLASTIC SURGERY - BRIEF OP NOTE Patient Name: Matt Calabrese Log ID: [id number] Surgery Date: 01/22/2024 Incision/Procedure Start Time: 7:58 AM Incision Close/Procedure End Time: 10:11 AM Surgeon(s) and Brake Lining Curer(s): Surgeons and Role: * Stacy Segura MD [...] Plan: dc Signature: Andie Don MD Pager: [phone] (Plastic Surgery pager) Date: January 22, 2024 Time: 10:20 AM documented in this encounterUniversity Hospitals Conneaut Medical Center09-03-2024 Hospital Discharge instructions* Discharge Instr - Other Orders* Andie Don MD - 01/22/2024 7:22 AM EDT Images from the original note were not included. PLASTIC SURGERY DISCHARGE INSTRUCTIONS [facility] [place] [phone] or ([phone]) [facility] [...] the office of Dr. Segura. Please call [phone] ifyou need to reschedule for any reason. Appointments for Next 60 Days Date Time Provider Location Dept Phone 01/30/2024 10:00 AM STACY SEGURA [facility] Be [phone] 02/06/2024 12:00 PM AURY TRISTAN [facility] [phone] 02/14/2024 2:00 PM EKGJ1-4 MAIN Jacqueline Healy [facility] [phone] 02/14/2024 2:30 PM SYNCOPE OPD NURSE Jacqueline Healy [facility] [phone] 02/14/2024 3:00 PM JAVI STEVENS [facility] [phone] When to call your surgeon: - If [...] attention. - For non-urgent questions please use Azumio to send message to your surgeon's team for a responsewithin 24-48 hours. -If experiencing surgical site wound complications or if you have any urgent questions, during business hours call our clinic at the number provided, or at [phone]. If after hours call [phone] and ask for the plastic surgery resident / fellow electrician front to assist you. In case of a [...] when the drainage fills the bulb almost senior care. Please keep daily amounts of drainage separate [...] PM Date: Total (daily) documented in this encounterUniversity Hospitals Conneaut Medical Center09-03-2024 History and physical note * Stacy Segura [...] Electronic Medical Record SIGNATURE: Stacy Segura MD [facility] Work Phone: 1(994) 500-437209-03-2024 History and physical note* Stacy Segura MD [...] SIGNATURE: Stacy Segura MD documented in this encounterUniversity Hospitals Conneaut Medical Center08-30-2024 History of Present illness Narrative* Stacy Segura [...] Past Histories independently gathered by the clinical ground crewman mission support and the remaining scribed note accurately describes my personal service to the patient. Stacy Segura MD documented in this encounterUniversity Hospitals Conneaut Medical Center08-30-2024 NoteTuscaraw[facility]08-30-2024 Instructions* Patient Instructions* Enrico Pierre APRN.BIOMATHEMATICIAN - 01/18/2024 9:43 AM EDT PATIENT PREOPERATIVE INSTRUCTIONS [facility]: [phone] --[address] [place] [address] [facility]. Please read below carefully for [...] Procedures: - YOU MUST HAVE A RESPONSIBLE FASHION PATTERNMAKER TAKE YOU HOME. A RESIDENTIAL THERAPIST OR PRINTING MACHINE MECHANIC CANNOT BE MADE A RESPONSIBLE FASHION PATTERNMAKER. - We recommend that a responsible person [...] Advance Directive, please fax a copy to [phone] or email to for it to be [...] into your chart that day. Enrico Pierre APRN.JERALD documented in this encounterUniversity Hospitals Conneaut Medical Center08-30-2024 History and physical note * Enrico Pierre APRN.CNP - 01/18/2024 9:20 AM EDT Images from the original note were not included. [facility] HISTORY AND PHYSICAL EXAMINATION SERVICE DATE: 01/18/2024 SERVICE TIME: 9:30 AM PRIMARY CARE PHYSICIAN: Jack Priest CNP, BIOMATHEMATICIAN Assessment Patient has the following medical conditions [...] large neck Non-male patient STOP-Bang Score: 1 [id number] Score: Age: <65 Sex: Female CHF history: No Hypertension history: No Stroke/TIA/thromboembolism history: No Vascular disease history: No Diabetes history: No [id number] Score: 1 ANESTHESIA FINDINGS: Intubation History: No [...] requiring medication, no history of angina, CHF, VT, cardiac surgery or stents. Denies rest pain, gangrene or revascularization/amputation for PVD. No history of cardiovascular symptoms or problems. GI: Positive for: nausea (chronic unchanged) Negative for: dysphagia, GERD, liver disease and vomiting. : No history of dysuria, frequency or incontinence, stones or chronic kidney disease. No difficulty urinating, nocturia > 1 time per night or hematuria. PATENT COUNSEL: Negative for abnormal vaginal bleeding, abnormal vaginal [...] 366 QTC Calculation (Bazett) 440 Calculated P [place] 21 Calculated R [place] 38 Calculated T [place] 29 Impression NORMAL SINUS RHYTHM NORMAL ECG NO PREVIOUS ECGS AVAILABLE Confirmed by MD SHELTON VINAYAK ([id number]) on 03/06/2023 11:17:30 PM Recent Results (from the past 56723 hour(s)) ECHO Collection Time: 08/13/23 9:33 AM [...] 18, 2024 TIME: 9:30 AM PAGER/CONTACT #: [facility]08-30-2024 History and physical note* Enrico Pierre APRN.CNP - 01/18/2024 9:20 AM EDT Images from the original note were not included. [facility] HISTORY AND PHYSICAL EXAMINATION SERVICE DATE: 01/18/2024 SERVICE TIME: 9:30 AM PRIMARY CARE PHYSICIAN: Jack Priest CNP, JERALD Assessment Patient has the following medical conditions [...] large neck Non-male patient STOP-Bang Score: 1 [id number] Score: Age: <65 Sex: Female CHF history: No Hypertension history: No Stroke/TIA/thromboembolism history: No Vascular disease history: No Diabetes history: No [id number] Score: 1 ANESTHESIA FINDINGS: Intubation History: No [...] requiring medication, no history of angina, CHF, VT, cardiac surgery or stents. Denies rest pain, gangrene or revascularization/amputation for PVD. No history of cardiovascular symptoms or problems. GI: Positive for: nausea (chronic unchanged) Negative for: dysphagia, GERD, liver disease and vomiting. : No history of dysuria, frequency or incontinence, stones or chronic kidney disease. No difficulty urinating, nocturia > 1 time per night or hematuria. PATENT COUNSEL: Negative for abnormal vaginal bleeding, abnormal vaginal [...] 366 QTC Calculation (Bazett) 440 Calculated P [place] 21 Calculated R [place] 38 Calculated T [place] 29 Impression NORMAL SINUS RHYTHM NORMAL ECG NO PREVIOUS ECGS AVAILABLE Confirmed by MD SHELTON VINAYAK ([id number]) on 03/06/2023 11:17:30 PM Recent Results (from the past 87184 hour(s)) ECHO Collection Time: 08/13/23 9:33 AM [...] 9:30 AM PAGER/CONTACT #: documented in this encounterUniversity Hospitals Conneaut Medical Center08-28-2024 Telephone encounter Note * Telephone Encounter - Mary Grace Gonzalez HUC - 01/16/2024 4:27 PM EDT Patient called. Pt is confused, she was approved for her surgery, see note from [facility] on 01/14/24. But she just received some letters in my chart stating special circumstance review. Surgery was not canceled, is she approved? She still wants to make sure surgery is still happening. [facility]08-28-2024 Miscellaneous Notes* Telephone Encounter - Mary Grace [...] surgery is still happening. documented in this encounterUniversity Hospitals Conneaut Medical Center08-27-2024 Telephone encounter Note * Telephone Encounter - Manda Ramsey APRN.CNP - 01/15/2024 5:17 PM EDT Sent MC message to patient. The order was not placed by this department. Manda Ramsey APRN, JERALD, NI [facility] Work Phone: 1(411) 403-368608-27-2024 Miscellaneous Notes* Telephone Encounter - Manda Ramsey APRN.CNP - 01/15/2024 5:17 PM EDT Sent MC message to patient. The order was not placed by this department. Manda Ramsey APRN, JERALD, EMERGENCY PREPAREDNESS COORDINATOR * Telephone Encounter - Jacy Cavazos - 01/15/2024 4:38 PM EDT patient calling in and said someone from [facility] called her and it was an automated phone call about home health care,had all of her information including home address. Pt states it was a [facility] number and she redialed it and it brought her to a different pierce first and then she said he routed the conversation to our dept. Patient said the automated phone call said.. This is the [facility] home health care provider calling to remind [...] Has someone called patient? documented in this encounterUniversity Hospitals Conneaut Medical Center08-27-2024 Telephone encounter Note * Telephone Encounter - Jacy Cavazos - 01/15/2024 4:38 PM EDT patient calling in and said someone from [facility] called her and it was an automated phone call about home health care,had all of her information including home address. Pt states it was a [facility] number and she redialed it and it brought her to a different pierce first and then she said he routed the conversation to our dept. Patient said the automated phone call said.. This is the [facility] home health care provider calling to remind [...] home health care? Has someone called patient? [facility]08-19-[facility] Nurse Note* Minoo Menendez LPN - 01/07/2024 [...] why she was being monitored and evaluated. [facility]08-19-[facility] Nurse Note* Minoo Menendez LPN - 01/07/2024 [...] being monitored and evaluated. documented in this encounterUniversity Hospitals Conneaut Medical Center08-19-2024 NoteHNO ID: [id number] Author: MINOO MENENDEZ LPN Service: ? Author [...] suicidal ideas. The patient is nervous/anxious.[facility]08-19-2024 History of Present illness Narrative* Minoo Menendez [...] The patient is nervous/anxious. * Tamara Maxwell APRN.BIOMATHEMATICIAN - 01/07/2024 1:00 PM EDT Images from the original note were not included. [facility] Today's Date: 01/07/24 Name: Matt Calabrese [...] - last 6 monthsworsening.Previously a patient at [place] [facility] with Dr. Rebel Arroyo. Imagingshowed mild T11-12 disc bulge for which he could not account for her pain complaints. Denies traumaor provocation. She was seeing Dr. Coy pain management in [place] where she has injections for fa cet pain. RED FLAG SYMPTOMS: denies red flags. She did not give a reason for coming from [place] to [place] when she was already established in [place] with pain management. PAIN DESCRIPTION: Timing: Constant Character: Aching, Burning, Dull Primary Location: lumbar Radiation: RLE posterior mid thigh Exacerbating factors: Unable to Pinpoint Exacerbating Factors/Positions Relieving factors: Unable to Pinpoint Positions/Factors that are Mitigating Interferes with: everything Currently in PT - started 3-4 months ago - helping She sees psychiatry in [place] - I do not see documentation in [facility] or scanned documents Her friend Natalia is [...] and validated on 01/07/2024 by Tamara Maxwell APRN.BIOMATHEMATICIAN All prescriptions have been APPROPRIATELY filled. No [...] elicit Tenderness L3-S1 axial Full lumbar ROM Danilo's negative Gait unassisted Skin: General: Skin is [...] not give a reason for transferring from [place] to [place] when she was already established in [place] with pain management. High Risk [facility] Suicide Protocol - she answered questions differently [...] see not record of psychiatric evaluation in [facility]. Police and EMT here to evaluate - she denies suicidal and homicidal ideations to them, therefore, she was discharged with her friend Natalia and states she will continue psychiatric treatment in [place]. Diagnoses: (M54.6) Midline thoracic back pain, unspecified [...] guidance BILATERAL SIDES at L4-5 and L5-S1 Chucking Lathe Operator Needed: Medial Branch Blocks - YES Anticoagulant - Hold Needed: N/A (Not currently on Anticoagulants) Anticoagulant - Currently Taking: None Allergies (relevant): None Scheduling - Mobility (Can Patient independently transfer on/off an OR or Procedure table?): YES (May schedule at any location) Scheduling - Additional Info: None Studies: None Functional Roman Catholic: NONE Referrals: No additional considerations at present [...] APRN.JERALD Pain Management [facility] documented in this encounterUniversity Hospitals Conneaut Medical Center08-19-2024 Instructions* Patient Instructions* Tamara Maxwell APRN.CNP - 01/07/2024 1:04 PM EDT Ice and heat as tolerated Activity as tolerated documented in this encounterUniversity Hospitals Conneaut Medical Center08-19-2024 NoteHNO ID: [id number] Author: TAMARA MAXWELL APRN.CNP Service: ? Author Type: Nurse Practitioner Type: Progress Notes Filed: 01/07/2024 17:50 Note Text: [facility] Today's Date: 01/07/24 Name: Matt Calabrese [...] last 6 months worsening.Previously a patient at [place] [facility] with Dr. Rebel Arroyo. Imaging showed mild T11-12 disc bulge for which he could not account for her pain complaints. Denies trauma or provocation. She was seeing Dr. Coy pain management in [place] where she has injections for facet pain. RED FLAG SYMPTOMS: denies red flags. She did not give a reason for coming from [place] to [place] when she was already established in [place] with pain management. PAIN DESCRIPTION: Timing: Constant Character: Aching, Burning, Dull Primary Location: lumbar Radiation: RLE posterior mid thigh Exacerbating factors: Unable to Pinpoint Exacerbating Factors/Positions Relieving factors: Unable to Pinpoint Positions/Factors that are Mitigating Interferes with: everything Currently in PT - started 3-4 months ago - helping She sees psychiatry in [place] - I do not see documentation in [...] and validated on 01/07/2024 by Tamara Maxwell APRN.BIOMATHEMATICIAN All prescriptions have been APPROPRIATELY filled. No suspicious activity was identified. 01/07/2024 AG SPINE COMBINATION Questionnaire GREENLIGHT Completed Date 01/07/2024 Questionnaire Opiod Risk Tool Completed Date 01/07/2024 Comments high - 10 (All drug screens are appropriate unless indicated otherwise) Risk Asse (more content not included)...[facility]08-13-2024 Instructions* Patient Instructions* Mary Parsons PA-C - 01/01/2024 4:30 PM EDT Please call [phone] to schedule your esophageal manometry Adequate hydration High fiber diet Miralax 17 g capful daily, consider twice daily or addition of colace twice daily Reach out if any additional questions/concerns documented in this encounterUniversity Hospitals Conneaut Medical Center08-13-2024 NoteTuscarawas Hospital08-13-2024 History of Present illness Narrative* Mary Parsons PA-C - 01/01/2024 2:29 PM EDT VIRTUAL VISIT FOLLOW UP Matt Calabrese [phone] [phone] has requested a video telemedicine follow-up [...] visit. Either the patient or their legal outside dealer sales representative has been informed of the risks and benefits of -- and alternatives to -- treatment through a remote evaluation andconsents to proceed with the evaluation remotely. Patient location at time of call: [place] No chief complaint on file. I had [...] COLONOSCOPY SCREENING 09/14/2023: EGD 2018: EGD W/O [facility] SPEC VARICIES INJ 2023: EGD W/O [facility] SPEC VARICIES INJ 2018: NEXPLANON INSERTION 12/07/2023: [...] the date of the service which included [id number] patient care, completing clinical documentation, counseling and educating the patient/family/caregiver, and ordering medications, tests, or procedures. Mary Parsons PA-C January 01, 2024 2:29 PM documented in this encounterUniversity Hospitals Conneaut Medical Center08-12-2024 NoteHNO ID: [id number] Author: ?, ?, ? Service: ? Author Type: ? Type: Progress Notes Filed: 12/31/2023 16:14 Note Text: DATE OF PHOTOS: 12/31/2023 Body Part: Breasts Beatriz Hernandez (Photo) December 31, 2023 4:14 [facility]08-12-2024 History of Present illness Narrative* David (Photo)Beatriz - 12/31/2023 4:14 PM EDT DATE OF PHOTOS: 12/31/2023 Body Part: Breastnidia Beatriz Hernandez (Photo) December 31, 2023 4:14 PM documented in this encounterUniversity Hospitals Conneaut Medical Center08-12-2024 History of Present illness Narrative* Stacy Segura [...] E DESIRED SIZE: C Physical therapy or director of career services for pain and/or posturing maneuvers: Yes number [...] COLONOSCOPY SCREENING 09/14/2023: EGD 2018: EGD W/O [facility] SPEC VARICIES INJ 2023: EGD W/O [facility] SPEC VARICIES INJ 2018: NEXPLANON [...] depigmentation, skin necrosis and anesthetic/perioperative complications (DVT, PE,VT, and ). The patient agrees and signed [...] Past Histories independently gathered by the clinical ground crewman mission support and the remaining scribed note accurately describes my personal service to the patient. I spent 30 minutes in the visit, with more than 50% of the total [id number] time of the visit in counseling / coordination of care. Stacy Segura MD December 31, 2023 documented in this encounterUniversity Hospitals Conneaut Medical Center08-12-2024 NoteTuscarawas Hospital08-09-2024 Telephone encounter Note* Telephone Encounter - Lorrie Tran MA - 12/28/2023 2:34 PM EDT Received Pt Eval sent to provider for review and sign Provider has signed faxed back to [phone] [facility]08-09-2024 Miscellaneous Notes* Telephone Encounter - Lorrie Tran MA - 12/28/2023 2:34 PM EDT Received Pt Eval sent to provider for review and sign Provider has signed faxed back to [phone] documented in this encounterUniversity Hospitals Conneaut Medical Center08-09-2024 Note. MICRO - Microbiology PROCEDURE: Urine Culture [...] Locations *1: This test was performed at: [facility], [address] [place] [address], [facility] , [facility] ([place])12-26-2023 Telephone encounter Note* Telephone Encounter - Liset Love RN - 12/26/2023 8:56 AM EDT Pt notified and initially had planned on holding off as she is not short of breath, but after explaining [facility] response to US report, Pt states she will head to [facility] ER to be evaluated. Liset Love RN [facility]08-07-2024 Miscellaneous Notes* Telephone Encounter - Liset Love RN - 12/26/2023 8:56 AM EDT Pt notified and initially had planned on holding off as she is not short of breath, but after explaining [facility] response to US report, Pt states she will head to [facility] ER to be evaluated. Liset Love RN [...] ultrasound completed yesterday on right arm at [facility] in [place] and calling for results. States now her left arm began to burn last night and she had chest pain. States still has chest discomfort. Denies shortness of breath. Please review in CP absence. I advised her with the chest discomfort it is advised she go to the ER to be evaluated. Liset Love RN documented in this encounterUniversity Hospitals Conneaut Medical Center08-07-2024 Telephone encounter Note * Telephone Encounter - [...] she has any questions. Tracy Quarles APRN.CNM [facility] Work Phone: 1(722) 394-232608-07-2024 Telephone encounter Note* Telephone Encounter - Liset Love RN - 12/26/2023 8:19 AM EDT Pt states she ultrasound completed yesterday on right arm at [facility] in [place] and calling for results. States now her left arm began to burn last night and she had chest pain. States still has chest discomfort. Denies shortness of breath. Please review in CP absence. I advised her with the chest discomfort it is advised she go to the ER to be evaluated. Liset Love RN [facility]08-05-2024 NoteTuscarawas Hospital08-05-2024 History of Present illness Narrative* Marilyn Piña APRN.CNM - 12/24/2023 10:41 AM EDT Matt Calabrese [...] needed. Denies pain at Nexplanon insertion site. Account Strategist History LMP: 11/20/2023 (Exact Date), Having periods Age at Menarche: Age at First : Age at Menopause: Account Strategist History Comments: Sexual Activity: Not Currently; Male [...] imaging [employer] Muro APRN.CNM documented in this encounterUniversity Hospitals Conneaut Medical Center08-02-2024 Note ORIGINAL EXAMINATION: Ultrasound of the right [...] Sign Date: 12/21/2023 4:09:56 PM Ordering Provider: [facility]07-26-2024 Note Indication Evaluation of abnormal uterine [...] mm x 9 mm Performed By: Montse Oela RDMS Read By: Christin Navarro M.D.MATERNAL [id number] History of Present illness Narrative* Christin Navarro MD - 12/14/2023 11:04 PM EDT The patient presents for requested ultrasound. Full report available in the Imaging tab in Epic. Christin Navarro MD documented in this encounterUniversity Hospitals Conneaut Medical Center07-19-2024 History of Present illness Narrative* HauryMari APRN.BIOMATHEMATICIAN - 12/07/2023 10:13 AM EDT Hole Filler offered: Patient declines. Matt is a 23 year old patient who presents for Nexplanon insertion. Patient's last menstrual period was 11/20/2023 (exact date). VITALS: LMP 11/20/2023 test: negative Nexplanon [facility]:[id number] lot #: [id number] Exp date: 2025-08 UNIVERSAL PROTOCOL / SAFETY [...] to use backup contraception for 7 days. Mari Corey APRN.JERALD documented in this encounterUniversity Hospitals Conneaut Medical Center07-19-2024 History of Present illness Narrative* Claire Giang RT(R) - 12/07/2023 7:30 AM EDT RADIOLOGY [...] PATIENT PRESENTS WITH AN IMPLANTABLE OR ATTACHED DENTAL TECHNICIAN: No CREATININE: Creatinine Date Value Ref Range [...] [address] PERFORMED: No IV SITE: [place] only - not applicable, oral or physician administered agents given to patient POST EXAM PIV STATUS: Not applicable PROCEDURE TYPE: NM GET: 1.2 mCi Tc99m SULFUR COLLOID was administered orally via 4 ounces of Egg Beaters,1 1/2 pieces of toast, 3/4 ounce of jelly with 8 ounces of water orally ADMINISTRATION TIME: 07:45 PATIENT DISCHARGED TO: Ambulatory patient, left [place] department area. A Diagnostic radioactive procedure has taken place, with no further precautions necessary other than routine body substance precautions. More information regarding radiation safety can be found usingthis link: [email or web address] SIGNATURE: BECKI Horne) PATIENT NAME: Matt Calabrese DATE: December 07, 2023 TIME: 11:00 AM PAGER/CONTACT #: documented in this encounterUniversity Hospitals Conneaut Medical Center07-15-2024 History of Present illness Narrative* Marilyn Piña APRN.CNM - 12/03/2023 2:01 PM EDT Matt Calabrese [...] remember pills. Does not want IUD placed. Account Strategist History LMP: 11/20/2023 (Exact Date), Having periods Age at Menarche: Age at First : Age at Menopause: Account Strategist History Comments: Sexual Activity: Not Currently; Male [...] Laterality Date COLONOSCOPY SCREENING 2017 EGD W/O [facility] SPEC VARICIES INJ 2017 [...] report Marilyn Piña APRN.CNM documented in this encounterUniversity Hospitals Conneaut Medical Center07-15-2024 Note ORIGINAL EXAMINATION: COMPLETE ABDOMINAL ULTRASOUND 12/03/2023 [...] Sign Date: 12/03/2023 3:53:26 PM Ordering Provider: [facility]07-08-2024 Telephone encounter Note* Telephone Encounter - Lorrie Tran MA - 11/26/2023 2:34 PM EDT Received Pt Eval sent to provider for review and sign [facility]07-08-2024 Miscellaneous Notes* Telephone Encounter - Lorrie Tran MA - 11/26/2023 2:34 PM EDT Received Pt Eval sent to provider for review and sign documented in this encounterUniversity Hospitals Conneaut Medical Center07-02-2024 Instructions* Patient Instructions* Mary Parsons PA-C - 11/20/2023 2:51 PM EDT Please call [phone] to schedule your gastric emptying scan Please present to any [facility] lab and picking machine operator stool sample kit to return when able Small frequent meals throughout the day documented in this encounterUniversity Hospitals Conneaut Medical Center07-02-2024 History of Present illness Narrative* Mary Parsons PA-C - 11/20/2023 2:32 PM EDT VIRTUAL VISIT FOLLOW UP Matt Calabrese [phone] has requested a video telemedicine follow-up [...] visit. Either the patient or their legal outside dealer sales representative has been informed of the risks and benefits of -- and alternatives to -- treatment through a remote evaluation andconsents to proceed with the evaluation remotely. Patient location at time of call: [place] No chief complaint on file. I had a virtual visit with Ms. Caalbrese today for follow up of diarrhea. UPDATED [...] the date of the service which included [id number] patient care, completing clinical documentation, counseling and educating the patient/family/caregiver, and ordering medications, tests, or procedures. Mary Parsons PA-C November 20, 2023 2:32 PM documented in this encounterUniversity Hospitals Conneaut Medical Center06-17-2024 Telephone encounter Note * Telephone Encounter - Ana Laura Ortiz - 11/05/2023 5:24 PM EDT Talked to patient and she verbally understands her xray was normal. Ana Laura Ortiz [facility]06-17-2024 Miscellaneous Notes* Telephone Encounter - Ana Laura Ortiz - 11/05/2023 5:24 PM EDT Talked to patient and she verbally understands her xray was normal. Ana Laura Ortiz * Telephone Encounter - Rebel Sneed APRN.CNP - 11/05/2023 4:55 PM EDT Please inform patient that x-ray is normal. Continue plan of care as discussed. Rebel Sneed APRN.CNP documented in this encounterUniversity Hospitals Conneaut Medical Center06-17-2024 Telephone encounter Note * Telephone Encounter - Rebel Sneed APRN.CNP - 11/05/2023 4:55 PM EDT Please inform patient that x-ray is normal. Continue plan of care as discussed. Rebel Sneed APRN.CNP [facility]06-17-2024 History of Present illness Narrative* Breann Saba RT(R) - 11/05/2023 3:50 PM EDT Radiology [...] PATIENT PRESENTS WITH AN IMPLANTABLE OR ATTACHED DENTAL TECHNICIAN: No RADIOLOGY DEPARTMENT: General X-ray: Exam(s) Completed: Pelvis X-Ray: Pelvis with Hip Right PERIPHERAL IV DATA: Not applicable SIGNED BY: RT Giselle(R) November 05, 2023 4:15 PM documented in this encounterUniversity Hospitals Conneaut Medical Center06-17-2024 History of Present illness Narrative* Rebel Sneed APRN.BIOMATHEMATICIAN - 11/05/2023 3:38 PM EDT Images from [...] of care. This note was generated using Phase III Development software. It may contain errors in wording, punctuation, or spelling. Rebel Sneed APRN.JERALD * Rebel Sneed APRN.JERALD - 11/05/2023 3:38 PM EDT documented in this encounterUniversity Hospitals Conneaut Medical Center06-14-2024 Note SATISFACTORY FOR EVALUATION Endocervical/Transformational zone component present [facility] 06-14-2024 Note SATISFACTORY FOR EVALUATION Endocervical/Transformational zone component present [facility] 06-14-2024 Note SATISFACTORY FOR EVALUATION Endocervical/Transformational zone component present [facility] 06-14-2024 Note SATISFACTORY FOR EVALUATION Endocervical/Transformational zone component present [facility] 06-14-2024 Note SATISFACTORY FOR EVALUATION Endocervical/Transformational zone component present [facility] 06-14-2024 Note SATISFACTORY FOR EVALUATION Endocervical/Transformational zone component present [facility] 06-14-2024 Note SATISFACTORY FOR EVALUATION Endocervical/Transformational zone component present [facility] 06-14-2024 Note SATISFACTORY FOR EVALUATION Endocervical/Transformational zone component present [facility] 06-12-2024 Note. MICRO - Microbiology PROCEDURE: [...] Locations *1: This test was performed at: [facility], [address] [place] [address], [id number] , [facility] ([place])10-16-2023 Telephone encounter Note* Telephone Encounter - Mari Mcmullen PA-C - 10/16/2023 9:43 AM EDT Attempted calling patient at due to her cancellation of surgery. No answer, left voicemail. Mari Mcmullen PA-C [facility] Work Phone: 1(415) 692-362305-28-2024 Miscellaneous Notes* Telephone Encounter - Mari Mcmullen PA-C - 10/16/2023 9:43 AM EDT Attempted calling patient at due to her cancellation of surgery. No answer, left voicemail. Mari Mcmullen PA-C documented in this encounterUniversity Hospitals Conneaut [facility] Center05-23-2024 Telephone encounter Note * Telephone Encounter - Lul Carranza APRN.CNP - 10/11/2023 2:43 PM EDT Questions were addressed during virtual visit today. Lul Carranza APRN.CNP [facility]05-23-2024 Miscellaneous Notes* Telephone Encounter - Lul Carranza APRN.CNP - 10/11/2023 2:43 PM EDT Questions were addressed during virtual visit today. Lul Carranza APRN.CNP documented in this encounterUniversity Hospitals Conneaut [facility] Center05-23-2024 Telephone encounter Note * Telephone Encounter - [...] is Sunday. Fatoumata Bradshaw PA-C 1:38 PM [facility]05-23-2024 Miscellaneous Notes* Telephone Encounter - Fatoumata Bradshaw [...] Bradshaw PA-C 1:38 PM documented in this encounterUniversity Hospitals Conneaut [facility] Center05-23-2024 History of Present illness Narrative* Lul Carranza APRN.BIOMATHEMATICIAN - 10/11/2023 10:03 AM EDT Images from the original note were not included. VIRTUAL VISIT PROGRESS NOTE This is a virtual visit using byydom Video Visit. It required patient- provider interaction for the medical decision making as documented below. I have communicated my name and active licensure. The patient's identity and physical location wereverified at the time of this visit. Either the patient or their legal outside dealer sales representative has been informed of the risks and benefits of -- and alternatives to -- treatment through a remote evaluation andconsents to proceed with the evaluation remotely. Matt Calabrese is a 23 year old female seen for pulmonary follow up. The patient states she recently got a new dog (jn caleljas) on 09/16/23 Since that time she has [...] She denies wheezing or chest pain. P batshevacarlos is wondering whether or not she should [...] which included preparing to see the patient, [id number] patient care, completing clinical documentation, obtaining and/or reviewing separately obtained history, performing a medically appropriate examination, and counseling and educating the patient/family/caregiver Encounter started as a virtual visit (audio-visual) but was converted to a telephone visit (audio only) due to insurmountable technological challenges. Lul Carranza APRN.CNP documented in this encounterUniversity Hospitals [facility]aut [facility]05-22-2024 History of Present illness Narrative* Annmarie Weaver RN - 10/10/2023 10:09 AM EDT Name: Matt Calabrese [facility]#: [id number] Date: 10/10/2023 LACTULOSE - BREATH HYDROGEN & [...] LACTULOSE breath hydrogen/methane test was completed. .Annmarie Weaver RN documented in this encounterUniversity Hospitals Conneaut [facility] Center05-20-2024 Telephone encounter Note * Telephone Encounter - Fatoumata Bradshaw PA-C - 10/08/2023 3:13 PM EDT Patient scheduled for PACC VV. Patient did not log in for VV. Multiple calls placed to patient over the course of 15 minutes. Each one was sent to voicemail. Patient will need VV rescheduled. Fatoumata Bradshaw PA-C 3:13 PM [facility]05-20-2024 Miscellaneous Notes* Telephone Encounter - Fatoumata Bradshaw PA-C - 10/08/2023 3:13 PM EDT Patient scheduled for PACC VV. Patient did not log in for VV. Multiple calls placed to patient over the course of 15 minutes. Each one was sent to voicemail. Patient will need VV rescheduled. Fatoumata Bradshaw PA-C 3:13 PM documented in this encounterUniversity Hospitals Conneaut Medical Center05-18-2024 History of Present illness Narrative* Rula Joseph APRN.BIOMATHEMATICIAN - 10/06/2023 10:22 AM EDT Subjective Patient [...] worsening. At this time no treatment plan. HANK Thompson APRN.BIOMATHEMATICIAN documented in this encounterUniversity Hospitals Conneaut Medical Center05-17-2024 Instructions* Patient Instructions* Mari Mcmullen PA-C - 10/05/2023 9:10 AM EDT Images from the original note were not included. HAND AND UPPER EXTREMITY SURGERY Mari Mcmullen PA-C, ANNALISE Hernandez PA-C, ANNALISE Quintana MD, PhD LEO Parker RN Office: [phone] documented in this encounterUniversity Hospitals Conneaut [facility] Center05-17-2024 History of Present illness Narrative* Mari Mcmullen PA-C - 10/05/2023 8:12 AM EDT [...] Other reaction(s): Suicidal ideation Referring Physician: N/A Mari Mcmullen PA-C documented in this encounterUniversity Hospitals [facility]aut [facility] Center05-13-2024 History of Present illness Narrative* Lul Carranza APRN.BIOMATHEMATICIAN - 10/01/2023 9:30 AM EDT Latest Ref Rng 09/28/2023 Vitamin D 25 Hydroxy 31.0 - 80.0 ng/mL 15.1 (L) Sending Rx for replacement x 8 weeks. Then start OTC Vit D3 1,000 units daily. Lul Carranza APRN.CNP documented in this encounterUniversity Hospitals [facility]05-09-2024 History of Present illness Narrative* Lul Carranza APRN.CNP - 09/27/2023 9:11 AM EDT VIRTUAL VISIT PROGRESS NOTE This is a virtual visit using byydom Video Visit. It required patient- provider interaction for the medical decision making as documented below. I have communicated my name and active licensure. The patient's identity and physical location wereverified at the time of this visit. Either the patient or their legal outside dealer sales representative has been informed of the risks [...] which included preparing to see the patient, htvw-lj-jleg patient care, completing clinical documentation, obtaining and/or reviewing separately obtained history, performing a medically appropriate examination, counseling and educating the pat ient/family/caregiver, and ordering medications, tests, or procedures Lul Carranza APRN.JERALD documented in this encounterUniversity Hospitals Conne[facility] Center05-06-2024 Telephone encounter Note * Telephone Encounter - Danica Vasquez - 09/24/2023 9:36 AM EDT Patient requests return call to discuss results of EGD pathology performed 09/14/23 Scheduled for breath test 10/09 Danica Monreal [facility]05-06-2024 Miscellaneous Notes* Telephone Encounter - Danica Vasquez - 09/24/2023 9:36 AM EDT Patient requests return call to discuss results of EGD pathology performed 09/14/23 Scheduled for breath test 10/09 Danica Monreal documented in this encounterUniversity Hospitals Conneaut Medical Center05-03-2024 Discharge summary Author Shahzad Dsouza [facility] September 21, 2023 7:03pm Note Date/Time September 21, 2023 4:50pm [facility] Medical Records Department [address] [place] [address] Emergency Department Summary 09/21/23 MR#: [id number] Acct: [id number] Name: MATT CALABRESE Rep #:[id number] : 2000 23 From: [...] of this, she states it was at [facility] as an outpatient and she had 4 [...] melena or bright red blood per rectum. [facility] Medical History Anxiety Contact with or exposure [...] % (Auto) 54.8 Lymph % (Auto) 36.0 [place] % (Auto) 7.3 Eos % (Auto) 1.3 [...] Provider: Care Physician,No Primary Referrals: Jack Priest BUTTER FAT TESTER, BUTTER FAT TESTER-C [Non-Staff] - 1 Week if not improving Disposition Disposition: Home, Self Care What to do if you have Problems For any increased pain, shortness of breath, bleeding, nausea or vomiting, chestpain, or any unexpected problems, contact your Primary Care Provider. Call [facility] ([phone]) or report to the closest Emergency Room. Call 911 if necessary. 09/21/231902 <Electronically signed by Shahzad Dsouza MD> Cosigner Signature (if applicable): CC: No Primary Care Physician ~ Signed [facility] Work Phone: 1(734) 771-459605-03-2024 History of Present illness Narrative* Orlando Chopra APRN.BIOMATHEMATICIAN - 09/21/2023 4:38 PM EDT Patient triaged at [facility]. Here today with worsening abdominal pain, painful to walk. I will refer to ER, akshat solo. documented in this encounterUniversity Hospitals Conne[facility] Center04-26-2024 Nurse Note* Clarice Anders RN - 09/14/2023 8:06 AM EDT Pt. States readiness for discharge. Assisted with dressing. [facility]04-26-2024 Nurse Note* Clarice Anders RN - 09/14/2023 8:06 AM EDT Pt. States readiness for discharge. Assisted with dressing. * Clarice Anders RN - 09/14/2023 7:44 AM EDT Physician at bedside. documented in this encounterUniversity Hospitals Conneaut [facility] Center04-26-2024 Nurse Note* Clarice Anders RN - 09/14/2023 7:44 AM EDT Physician at bedside. [address]26-2024 Note* Discharge Instr - Nursing - Clarice Anders RN - 09/14/2023 7:39 AM EDT The patient received a copy of EGD discharge instructions that contain information for how to contact the physician who performed the procedure and when to seek medical care. [address]26-2024 Miscellaneous Notes* Discharge Instr - Nursing - Clarice Anders RN - 09/14/2023 7:39 AM EDT The patient received a copy of EGD discharge instructions that contain information for how to contact the physician who performed the procedure and when to seek medical care. documented in this encounterUniversity Hospitals Conne[facility] Center04-26-2024 History and physical note * Prakash Holland [...] MAC Additional Comments: None Prakash Holland MD [facility] Work Phone: 1(727) 492-110704-26-2024 History and physical note* Prakash Holland MD [...] None Prakash Holland MD documented in this encounterUniversity Hospitals Conneaut Medical Center04-11-2024 Instructions* Patient Instructions* Mary Parsons PA-C - 08/30/2023 1:07 PM EDT At least 64 oz of water daily Trial colestipol 5 g twice daily for diarrhea Small frequent meals throughout the day EGD ordered --- call [phone] to schedule Lactulose breath test to rule out SIBO -- call [phone] to schedule Consider Low fodmap diet, listed [...] sugar snap Pickled vegetables Red kidney beans Cas Cabbage Soy beans / soya beans Split [...] juices made of apple, pear, audrey Kombucha [place] juice in quantities over 100ml Rum Sodas containing High Fructose Metter Syrup (HFCS) Soy milk made with soy beans - commonly found in [employer] Sports drinks Tea: Black tea with added [...] Figs Goji berries Grapefruit Guava, unripe Lychee [place] Nectarines Paw paw, dried Peaches Pears Persimmon [...] Wheat flour Wheat noodles Wheat rolls Wheatgerm [place] meal Amaranth flour Barley including flour Bran cereals Bread: Granary bread Multigrain bread Naan Oatmeal bread Pumpernickel bread Roti Sourdough with kamut Cashews Cous cous Einkorn flour Freekeh Gnocchi Granola bar Muesli cereal Muesli bar Pistachios [place] crispbread [place] Spelt flour Meats, Poultry and Meat Substitutes Chorizo Sausages documented in this encounterUniversity Hospitals Conneaut Medical Center04-11-2024 History of Present illness Narrative* Mary Parsons PA-C - 08/30/2023 12:31 PM EDT VIRTUAL VISIT NEW PATIENT NAME: Matt Calabrese [facility] NO: [id number] DATE: 08/30/2023 REASON FOR VISIT Matt Calabrese [id number] 2000 has requested a video telemedicine initial [...] Mail. Patient location at time of call: [place] This visit was conducted as a virtual visit. I have communicated my name and active licensure. The patient's identity and physical location wereverified at the time of this visit. Either the patient or their legal outside dealer sales representative has been informed of the risks [...] the date of the service which included [id number]-[id number] patient care, completing clinical documentation, counseling and educating the patient/family/caregiver, and ordering medications, tests, or procedures. Mary Parsons PA-C August 30, 2023 12:31 PM documented in this encounterUniversity Hospitals Conneaut [facility] Center03-22-2024 History of Present illness Narrative* Adilson Anderson, PT - 08/10/2023 11:16 AM EDT Pt arrived to clinic and discussed with this PT that she wanted to go to [facility] for her physical therapy care. Appointment cancelled. documented in this encounterUniversity Hospitals Conne[facility] Center03-21-2024 Telephone encounter Note * Telephone Encounter - Lorrie Tran MA - 08/09/2023 9:41 AM EDT Faxed PT order from 08/09/2023 to [employer] [facility] Patient provided fax number [phone] Confirmed at 9:40am [facility]03-21-2024 Miscellaneous Notes* Telephone Encounter - Lorrie Tran MA - 08/09/2023 9:41 AM EDT Faxed PT order from 08/09/2023 to [employer] [facility] Patient provided fax number [phone] Confirmed at 9:40am documented in this encounterUniversity Hospitals [facility] Center03-18-2024 Instructions* Patient Instructions* Aury Tristan DO - [...] Follow up as needed documented in this encounterUniversity Hospitals Conneaut Medical Center03-18-2024 History of Present illness Narrative* Aury Tristan DO - 08/06/2023 10:45 AM EDT Images from the original note were not included. Rheumatology Outpatient Clinic Date of Service: 08/06/2023 Patient: Matt Calabrese Medical Record: [id number] Primary Care Physician: No primary care provider on file. Last Rheumatology visit: [facility] Referring Provider: Anshul Fernandez PA-C Consultation requested [...] She may continue to follow-up with her java sybase developer, follow-up with rheumatology on an as-needed basis [...] which included preparing to see the patient, [id number]-[id number] patient care, completing clinical documentation, obtaining and/or reviewing separately obtained history, performing a medically appropriate examination, counseling and educating the pat ient/family/caregiver, ordering medications, tests, or procedures, and communicating results to thepatient/family/caregiver. Aury Tristan DO Rheumatology Date: August 06, 2023 Time: 11:35 AM documented in this encounterUniversity Hospitals Conneaut Medical Center03-15-2024 History of Present illness Narrative* Orlando Chopra APRN.[facility] - 08/03/2023 11:00 AM EDT Subjective HPI [...] HENT: Head: Normocephalic and atraumatic. Mouth/Throat: Lips: [place]. Mouth: Mucous membranes are moist. Pharynx: Oropharynx [...] - PREDNISONE 20 MG TABLET Orlando Chopra APRN.BIOMATHEMATICIAN documented in this encounterUniversity Hospitals Conneaut Medical Center03-14-2024 Miscellaneous Notes* Telephone Encounter - Lul Carranza APRN.CNP - 08/02/2023 4:09 PM EDT I called and spoke with patient -- clarified no need for bronchoscopy to biopsy lung nodules at this point as they have remained stable for the last year. She has upcoming Echo scheduled 08/12. She will follow up after echo is complete. Lul Carranza APRN.BIOMATHEMATICIAN * Telephone Encounter - Zuly October - 08/02/2023 2:05 PM EDT Ms. Calabrese asking for a call to discuss further lung issues, Callback # [phone] documented in this encounterUniversity Hospitals Conneaut Medical Center03-09-2024 History of Present illness Narrative* Teofilo Coreas [...] orthopedist. Teofilo Coreas MD documented in this encounterUniversity Hospitals Conneaut Medical Center02-29-2024 History of Present illness Narrative* Yuni Guillen [...] Home Health Aide who [facility] [place] today for evaluation of bilateral breast pain. [...] which included preparing to see the patient, pdtp-jw-[id number] patient care, completing clinical documentation, obtaining and/or [...] is the provider ID). documented in this encounterUniversity Hospitals Conneaut Medical Center02-29-2024 Instructions* Patient Instructions* Lucy Dos Santos Ma - 07/19/2023 9:51 AM EST General Breast [...] breast cancer, and a history of Ashkenazi Adventism ancestry. Breast pain is very common and usually is not a sign of cancer, but should be evaluated by a breastspecialist. For comfort, simply reducing caffeine (coffee, tea, chocolate, energy drinks, sodas) inyour diet can provide relief. A properly fitted bra can also be helpful in reducing breast pain. Ifthose two measures do not provide relief, taking Evening Revelo Oil 1000mg capsules twice a day for [...] encountered today, you may do so at [email or web address]. Thank you ! documented in this encounterUniversity Hospitals Conneaut Medical Center02-29-2024 Nurse Note* Lucy Dos Santos Ma - [...] Never Smokeless tobacco: Never documented in this encounterUniversity Hospitals Conneaut Medical Center02-29-2024 History of Present illness Narrative* Adair Dawkins MD - 07/19/2023 9:00 AM EST Images from the original note were not included. SECTION OF RHINOLOGY, SINUS AND SKULL BASE SURGERY Head and Neck [place], [facility] NOTE This patient is a new patient. They are seen at the request of: Yasmine Alberto for chronic recurrent sinusitis [address] [facility] [address] CC: CRS CONSULT Patient confirms that consultation [...] infection demonstrates no infection 2) follow up julian Oriana Campbell APRN.BIOMATHEMATICIAN By signing my name below, I, Pepito Link, attest that this documentation has been prepared under the direction and in the presence of Dr. Dawkins Electronically signed, Luisana Whyte July 19, 2023 8:36 AM Disclosure: Dr. Dawkins receives payments from [employer] for conducting educational activities and/or consulting. An [employer]la[employer]ensorTecht and or Hera Therapeuticsect product may be used in your care. Dr. Dawkins does not receive any money for products he/she or any other [facility] physicians prescribe or use. Dr. Dawkins's choice on which product to use in your case was not influenced by his/her relationship with [employer] or [employer]. Your physician selected the product that in [...] Level: 3 - Low documented in this encounterUniversity Hospitals Conneaut Medical Center02-23-2024 Note ORIGINAL HISTORY: Irregular menstrual cycles COMPARISON: No FINDINGS: The uterus measures 8.5 cm in length. There is a 7 mm endometrial stripe. The ovaries are unremarkable in appearance, with normal blood flow. There is no free fluid. IMPRESSION: Unremarkable examination. Interpreted by: Elton Lane MD Preliminary Report By: Elton Lane MD Electronically signed By Elton Lane MD Dictated Date: 07/13/2023 1:56:24 PM Prelim Date: 07/13/2023 1:57:03 PM Sign Date: 07/13/2023 1:57:03 PM Ordering Provider: [facility]02-20-2024 Miscellaneous Notes* Telephone Encounter - Lucy Dos [...] Lucy Dos Santos Ma documented in this encounterUniversity Hospitals Conneaut Medical Center02-06-2024 Miscellaneous Notes* Telephone Encounter - Lul Carranza APRN.CNP - 06/26/2023 3:59 PM EST I called and left message for patient. Advised her to call the office back to discuss further. Lul Carranza APRN.JERALD * Telephone Encounter - Zuly Rema - 06/25/2023 3:40 PM EST Ms. Calabrese asking for a callback to review somethings about nodules. Callback # [phone] documented in this encounterUniversity Hospitals Conneaut Medical Center02-05-2024 History of Present illness Narrative* Anshul Fernandez PA-C - 06/25/2023 7:20 AM EST Images from the original note were not included. [facility] [place] [facility] Follow Up Patient Visit Virtual Visit [...] use. Her PCP is through [facility] in [place]. States that her heart rate will be [...] which included preparing to see the patient, tver-lm-nokp patient care, completing clinical documentation, performing a medically appropriate examination, counseling and educating the patient/family/caregiver, ordering medications, tests, or p rocedures, and communicating results to the patient/family/caregiver. Discussed with the patient who agrees to the plan. I answered all pt questions and there were no apparent barriers to communication present. Anshul Fernandez PA-C [facility] [place] [facility] documented in this encounterUniversity Hospitals Conneaut Medical Center12-04-2023 Miscellaneous Notes* Letter - Coordinator, Mammography - 04/23/2023 2:36 PM EST April 24, 2023 PID: [id number] Matt Calabrese [address] [facility] [address] [place] [address] Dear Ms. Calabrese, We are pleased to inform you that [...] report will be kept on file at [facility] as part of your permanent medical record and are available for your continuing care. Thank you for allowing us to help in meeting your health care needs. Sincerely, Dr. Lai Interpreting Radiologist [facility] (Normal-Clinical Evaluation) documented in this encounterUniversity Hospitals Conneaut Medical Center11-30-2023 History of Present illness Narrative* Merry Galvan - 04/19/2023 4:26 PM EST Sent to Scheduling CT order request to [facility] documented in this encounterUniversity Hospitals Conneaut Medical Center11-30-2023 Miscellaneous Notes* Telephone Encounter - Rhona Campbell RN - 04/19/2023 3:24 PM EST 04/19/23: Lul Carranza requested films: Any CT scan of chest [facility] possibly May 2021 and October 2021 FAX: [phone] STAT--SENT Rhona Campbell RN [facility] [facility] documented in this encounterUniversity Hospitals Conneaut Medical Center11-30-2023 Miscellaneous Notes* Telephone Encounter - Lul Carranza APRN.CNP - 04/19/2023 2:21 PM EST I received a message earlier today that patient had called in. I called her back but had to leave avoicemail. Advised her to call back at her earliest convenience. Lul Carranza APRN.CNP documented in this encounterUniversity Hospitals Conneaut Medical Center11-28-2023 Instructions* Patient Instructions* Lul Carranza APRN.CNP - [...] I will obtain your prior imaging from [place] to see if we can make a comparison of the nodules. Continue to use the albuterol as needed for now We will have you update the breathing tests and see a provider for asthma I will contact you once we have received the images from the other hospital Please call our office with any questions or concerns [phone] (Lung Nodule Clinic) Thank you, Lul Carranza APRN.CNP documented in this encounterUniversity Hospitals Conneaut Medical Center11-28-2023 History of Present illness Narrative* Lul Carranza APRN.CNP - 04/17/2023 9:17 AM EST Images from the original note were not included. [facility] INCIDENTAL LUNG NODULE PROGRAM Impression / Recommendations [...] prior imaging. I will obtain imaging from [facility] and schedule patient for a virtual visit [...] DIFFUSION CAPACITY (DLCO) - NITRIC OXIDE, EXHALED Matttravis Calabrese expresses understanding and is in agreement with plan. All questions were answered to their apparent satisfaction. I will contact her to schedule virtual visit once we have received OSH imaging. Lul Carranza APRN.CNP Incidental Lung Nodule Follow Up Concern for New Cancer Diagnosis: No Follow up Date: 05/03/2023 Lung Nodule Follow-Up Scheduled: Yes Enrolled in Lung Nodule program: Yes Lung Nodule Program Location: [place] Thank you for allowing me to participate in the care of Matt F Bharati. Please feel free to contactme with any questions or concerns. Consulting Physician Jack Alvarez [facility] [address] Reason for the Consult Matt Calabrese presents [...] The patient states she recently moved from [place] and has established care with pulmonary due [...] with some relief. Due to the cough, java sybase developer ordered CT chest which showed lung nodules measuring up to 10 mm insize. The patient states she does have a history of lung nodules which were worked up in [place] last year. She states she had CT imaging done at [facility]. She states nodules were worked up for [...] there was one nodule)--October of 2021 - [facility].Imaging is not available today for review. (PCP was Zulay Cedeno-- [facility] [address] [place] [address]-) Exposure: Has lived in [place], [place] x 4 years, [place] x 1 year Mold exposure in the [...] be communicated with the ordering provider via UPlanMe staff message or phone message by Imaging [...] APRN.CNP Pulmonary & Critical Care Medicine [facility] [place] April 17, 2023 9:17 AM CC: Jack Ramirez [facility] [id number] No primary care provider on file. documented in this encounterUniversity Hospitals Conneaut Medical Center11-26-2023 NoteHNO ID: [id number] Author: Velma Farooq RT(R) Service: Radiology Author [...] BY: RT Lucrecia(R) April 15, 2023 9:31 AMAkron Children'S [id number] Miscellaneous Notes* [facility] [...] 15, 2023 9:28 AM documented in this encounterUniversity Hospitals Conneaut Medical Center11-15-2023 History of Present illness Narrative* Jack Alvarez [...] in agreement. Jack Alvarez MD, Staff, [facility] [place] [facility] CHIEF COMPLAINT: Shortness of breath and Cough HISTORY OF PRESENT ILLNESS: Matt Calabrese is a 22 year old female, with PMHx of asthma, patient ishere to establish care. Moved from [place] over a year ago. Use to see a java sybase developer in [place]. Has a childhood history of [...] apartment. 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[facility] Transcribe Date/Time: Feb 26 2023 8:54P Dictated [...] 366 QTC Calculation (Bazett) 440 Calculated P [place] 21 Calculated R [place] 38 Calculated T [place] 29 Impression NORMAL SINUS RHYTHM NORMAL ECG NO PREVIOUS ECGS AVAILABLE Confirmed by MD NIKITA, MICHELE ([id number]) on 03/06/2023 11:17:30 PM No results found for this or any previous visit (from the past 78833 hour(s)). # Lung cancer screening - Doesn't qualify. # Immunizations: Will discuss nest visit There is no immunization history on file for this patient. Verbal and/or written health teaching given to patient with > 40 minutes spent face to face withmore than half of this for disease counseling. Jack Alvarez MD, Staff, [facility] [place] [facility] documented in this encounterUniversity Hospitals Conneaut Medical Center10-29-2023 Discharge summary Author Shawn Barrett [facility] March 18, 2023 6:13pm Note Date/Time March 18, 2023 5 :09pm [facility] Medical Records Department [address] [place] [address] Emergency Department Summary 03/18/23 MR#: [id number] Acct: [id number] Name: MATT CALABRESE Rep #:[id number] : 2000 From: Shawn Barrett MD PCP: LENA Beatty Status:RE G ER Location: ED HPI History [...] 17:46 EDT Reading Location ID and State: [facility] / [place] , Service support , Discharge Plan Triage Chief Complaint: Chest Other Other Complaint: Cold Sx ED Provider: ArnoldShawn Dx/Rx/DC Orders Clinical Impression: Pleuritic chest pain, Upper respiratory infection with cough and congestion Instructions: ED Pleurisy Prescriptions: New naproxen 500 mg tablet 500 mg PO BID Qty: 14 0RF No Action CBD Oil topical ibuprofen 600 mg tablet 600 mg PO Q8H PRN (Reason: pain) Primary Care Provider: Jack Priest NP Referrals: Jack Priest NP, BUTTER FAT TESTER-C [Primary Care Provider] - 1 Week if not improving Disposition Disposition: Home, Self Care What to do if you have Problems For any increased pain, shortness of breath, bleeding, nausea or vomiting, chestpain, or any unexpected problems, contact your Primary Care Provider. Call [facility] ([phone]) or report to the closest Emergency Room. Call 911 if necessary. 03/18/231812 <Electronically signed by Shawn Barrett MD> Cosigner Signature (if applicable): CC: LENA Priest ~ Signed [facility] Work Phone: 1(633) 776-832510-16-2023 Discharge summary Author Sharan Rosario [facility] March 05, 2023 7:47am Note Date/Time March 05, 2023 7 :47am [facility] Physical Therapy [facility] [place] [id number] / REHABILITATION SERVICES DISCHARGE SUMMARY MR#: [id number] Acct: [id number] Name: MATT CALABRESE Rep #: [id number] : 2000 22 From: Sharan Rosario DPT, OCS, CSCS Referring Dr.: ASIM Gomez Status: REG RCR Insurance: [facility] SELF PAY INSURANCE Discharge Summary D/C [...] please feel free to call me at [phone]. Thank you for the referral of thispatient. Sincerely, Sharan Rosario, EFRAIN, OCS, CSCS Balance/Gait/Functional tests Balance/Special Test Scores Lower Extremity Functional Score: 73 Improvement % Improvement: 95 <Electronically signed by Sharan Rosario DPT, ROBERT, CSCS> 03/05/23 0747 CC: ASIM Gomez; No Primary Care Physician ~ EBG Signed [facility] Work Phone: 1(287) 425-513410-14-2023 NoteHNO ID: [id number] Author: Note, Interface Service: ? Author Type: ? Type: Progress Notes Filed: 03/03/2023 5:29 AM Note Text: Epic Scheduled Downtime: 03/03/2023 1:00:00 AM to 03/03/2023 1:28:00 [facility]05-27-[address] Rock [facility] October 14, 2022 8:45pm Note Date/Time October 14, 2022 8:40p m [facility] Medical Records Department [address] [place] [address] Emergency Department Summary 10/14/22 MR#: [id number] Acct: [id number] Name: MATT CALABRESE Rep #:[id number] : [...] any suicidal ideations. Shehas no somatic complaints. PFSH PFSH Medical History Anxiety Home Medications hydroxyzine pamoate [...] your Primary Care Provider. Call [facility] ([phone]) or report to the closest Emergency Room. Call 911 if necessary. 10/14/222044 <Electronically signed by Young oRck MD> Cosigner Signature (if applicable): CC: No Primary Care Physician ~ Signed [facility] Work Phone: 1(188) 622-542905-05-[address] Mullen [facility] September 22, 2022 5:16pm Note Date/Time September 22, 2022 5:14pm [facility] Medical Records Department [address] [place] [address] Emergency Department Summary 09/22/22 MR#: [id number] Acct: [id number] Name: MATT CALABRESE Rep #:[id number] : 2000 22 From: Chirag Mullen MD PCP: OUT OF [...] making narrative: I will see if her social media coordinator is available to talk to the patient. [...] Days Qty: 90 0RF Primary Care Provider: Jennie Cortes,Out of Referrals: Christian Tam MD [Med Staff - Bleach Plant Operator] - As soon as possible [facility] Doctor,Out of [Primary Care Provider] - Disposition Disposition: Home, Self Care What to do if you have Problems For any increased pain, shortness of breath, bleeding, nausea or vomiting, chestpain, or any unexpected problems, contact your Primary Care Provider. Call [facility] ([phone]) or report to the closest Emergency Room. Call 911 if necessary. 09/22/221715 <Electronically signed by Chirag Mullen MD> Cosigner Signature (if applicable): CC: ~ Signed [facility] Work Phone: [phone]) 882-170611-03-2022 Miscellaneous Notes* Telephone Encounter - Tracy Giraldo APRN.CNP - 03/23/2022 9:13 AM EDT Note placed. BigDNA message sent * Telephone Encounter - Marquita Avina - 03/23/2022 8:35 AM EDT Pt saw notes on . She needs a letter for her employer stating she is positive. She would like to pick it up this morning if possible. documented in this encounterUniversity Hospitals Conneaut Medical CenterEvaluation + Plan note Future Appointments Appointment Date:08/13/2023 02:00:00 PM Scheduled Provider:SHAUNA YAO PA-C Location:[facility] Appointment Type:PC OV [facility] Evaluation + Plan note Future Appointments Appointment Date:07/13/2023 08:00:00 AM Scheduled Provider: Location:[facility] Appointment Type:US Pelvis Non-OB Complete Appointment Date:08/13/2023 02:00:00 PM Scheduled Provider:SHAUNA YAO PA-C Location:[facility] Appointment Type:PC OV Future Scheduled Tests Radiology* US Pelvis Non-OB Complete 07/13/23 [facility] Evaluation + Plan note Future Appointments Appointment Date:01/28/2024 07:30:00 AM Scheduled Provider:ED HUNT Location:[facility] Appointment Type:PC OV Appointment Date:01/28/2024 04:00:00 PM Scheduled Provider:JACK PRIEST Location:[facility] Appointment Type:PC OV [facility] Evaluation + Plan note Future Appointments Appointment Date:12/19/2023 08:00:00 AM Scheduled Provider:JACK PRIEST Location:[facility] Appointment Type:PC OV Appointment Date:01/28/2024 04:00:00 PM Scheduled Provider:JACK PRIEST Location:[facility] Appointment Type:PC OV [facility] Evaluation + Plan note Future Appointments Appointment Date:12/28/2023 11:00:00 AM Scheduled Provider: Location:[facility] Appointment Type:US Breast Left Complete Appointment Date:01/28/2024 04:00:00 PM Scheduled Provider:JACK PRIEST Location:[facility] Appointment Type:PC OV Future Scheduled Tests Radiology* US Breast Left Complete 12/28/23 [facility] Evaluation + Plan note Future Appointments Appointment Date:01/01/2024 09:00:00 AM Scheduled Provider: Location:[facility] Appointment Type:US Breast Left Limited Appointment Date:01/28/2024 04:00:00 PM Scheduled Provider:JACK PRIEST Location:[facility] Appointment Type:PC OV Future Scheduled Tests Radiology* US Breast Left Limited 01/01/24 [facility] Evaluation + Plan note Future Appointments Appointment Date:02/28/2024 10:00:00 AM Scheduled Provider: Location:[facility] Appointment Type:US Breast Left Complete Appointment Date:03/27/2024 08:00:00 PM Scheduled Provider: Location:[facility] Appointment Type:SL PSG (Polysomnograph) Appointment Date:05/02/2024 03:00:00 PM Scheduled Provider:JACK PRIEST Location:[facility] Appointment Type:PC OV Future Scheduled Tests Radiology* US Breast Left Complete 02/28/24 [facility] Evaluation + Plan note Future Appointments Appointment Date:03/27/2024 08:00:00 PM Scheduled Provider: Location:[facility] Appointment Type:SL PSG (Polysomnograph) Appointment Date:05/02/2024 03:00:00 PM Scheduled Provider:JACK PRIEST Location:[facility] Appointment Type:PC OV [facility] Evaluation + Plan note Future Appointments Appointment Date:03/24/2024 09:30:00 AM Scheduled Provider: Location:[facility] Appointment Type:NUT Diet Visit Individual Appointment Date:03/27/2024 08:00:00 PM Scheduled Provider: Location:[facility] Appointment Type:SL PSG (Polysomnograph) Appointment Date:05/02/2024 03:00:00 PM Scheduled Provider:JACK PRIEST Location:[facility] Appointment Type:PC OV [facility] Evaluation + Plan note Future Appointments Appointment Date:03/27/2024 08:00:00 PM Scheduled Provider: Location:[facility] Appointment Type:SL PSG (Polysomnograph) Appointment Date:05/02/2024 03:00:00 PM Scheduled Provider:JACK PRIEST Location:[facility] Appointment Type:PC OV Appointment Date:05/05/2024 09:30:00 AM Scheduled Provider: Location:[facility] Appointment Type:NUT Diet Visit Individual Appointment Date:06/09/2024 09:00:00 AM Scheduled Provider:JACK PRIEST Location:[facility] Appointment Type: OV [facility] Evaluation + Plan note Future Appointments Appointment Date:05/02/2024 03:00:00 PM Scheduled Provider:JACK PRIEST Location:[facility] Appointment Type: OV Appointment Date:05/05/2024 09:30:00 AM Scheduled Provider: Location:[facility] Appointment Type:NUT Diet Visit Individual Appointment Date:06/09/2024 09:00:00 AM Scheduled Provider:JACK PRIEST Location:[facility] Appointment Type:[facility] Evaluation + Plan note Future Appointments Appointment Date:04/16/2024 07:30:00 AM Scheduled Provider:JACK PRIEST Location:[facility] Appointment Type: OV Appointment Date:05/01/2024 08:00:00 PM Scheduled Provider: Location:[facility] Appointment Type:SL C-PAP (Continuous Positive Airway Pre Appointment Date:05/02/2024 03:00:00 PM Scheduled Provider:JACK PRIEST Location:[facility] Appointment Type: OV Appointment Date:05/05/2024 09:30:00 AM Scheduled Provider: Location:[facility] Appointment Type:NUT Diet Visit Individual Appointment Date:06/09/2024 09:00:00 AM Scheduled Provider:JACK PRIEST Location:[facility] Appointment Type: OV [facility] Evaluation + Plan note Future Appointments Appointment Date:05/01/2024 08:00:00 PM Scheduled Provider: Location:[facility] Appointment Type:SL C-PAP (Continuous Positive Airway Pre Appointment Date:05/02/2024 03:00:00 PM Scheduled Provider:JACK PRIEST Location:[facility] Appointment Type: OV Appointment Date:05/05/2024 09:30:00 AM Scheduled Provider: Location:[facility] Appointment Type:NUT Diet Visit Individual Appointment Date:06/09/2024 09:00:00 AM Scheduled Provider:JACK PRIEST Location:[facility] Appointment Type:PC OV Appointment Date:07/16/2024 04:00:00 PM Scheduled Provider:JACK PRIEST Location:[facility] Appointment Type:PC OV [facility] Evaluation + Plan note Future Appointments Appointment Date:05/12/2024 03:00:00 PM Scheduled Provider:ARIEL WHITE MD Location: [facility] Appointment Type: OV Appointment Date:05/22/2024 08:00:00 PM Scheduled Provider: Location:[facility] Appointment Type:SL C-PAP (Continuous Positive Airway Pre Appointment Date:05/26/2024 08:00:00 AM Scheduled Provider: Location:[facility] Appointment Type:NUT Diet Visit Individual Appointment Date:06/09/2024 09:00:00 AM Scheduled Provider:JACK PRIEST Location:[facility] Appointment Type:PC OV Appointment Date:07/16/2024 04:00:00 PM Scheduled Provider:JACK PRIEST Location:[facility] Appointment Type:PC OV Future Scheduled Tests Laboratory* Urine Culture 05/02/24 [facility] Evaluation + Plan note Future Appointments Appointment Date:05/12/2024 03:00:00 PM Scheduled Provider:ARIEL WHITE MD Location: [facility] Appointment Type: OV Appointment Date:05/22/2024 08:00:00 PM Scheduled Provider: Location:[facility] Appointment Type:SL C-PAP (Continuous Positive Airway Pre Appointment Date:05/26/2024 08:00:00 AM Scheduled Provider: Location:[facility] Appointment Type:NUT Diet Visit Individual Appointment Date:06/09/2024 09:00:00 AM Scheduled Provider:JACK PRIEST Location:[facility] Appointment Type:PC OV Appointment Date:07/16/2024 04:00:00 PM Scheduled Provider:JACK PRIEST Location:[facility] Appointment Type:PC OV [facility] Evaluation + Plan note Future Appointments Appointment Date:05/19/2024 04:15:00 PM Scheduled Provider:ARIEL WHITE MD Location: [facility] Appointment Type:WH OV Appointment Date:05/22/2024 08:00:00 PM Scheduled Provider: Location:[facility] Appointment Type:SL C-PAP (Continuous Positive Airway Pre Appointment Date:05/26/2024 08:00:00 AM Scheduled Provider: Location:[facility] Appointment Type:NUT Diet Visit Individual Appointment Date:06/09/2024 09:00:00 AM Scheduled Provider:JACK PRIEST Location:[facility] Appointment Type:PC OV Appointment Date:07/16/2024 04:00:00 PM Scheduled Provider:JACK PRIEST Location:[facility] Appointment Type: OV [facility] Evaluation + Plan note Future Appointments Appointment Date:05/26/2024 08:00:00 AM Scheduled Provider: Location:[facility] Appointment Type:NUT Diet Visit Individual Appointment Date:06/02/2024 03:15:00 PM Scheduled Provider:ARIEL WHITE MD Location: [facility] Appointment Type: OV Post Op Appointment Date:06/09/2024 09:00:00 AM Scheduled Provider:JACK PRIEST Location:[facility] Appointment Type:PC OV Appointment Date:07/16/2024 04:00:00 PM Scheduled Provider:JACK PRIEST Location:[facility] Appointment Type: OV [facility] Evaluation + Plan note Future Appointments Appointment Date:06/02/2024 03:15:00 PM Scheduled Provider:ARIEL WHITE MD Location: [facility] Appointment Type: OV Post Op Appointment Date:06/09/2024 09:00:00 AM Scheduled Provider:JACK PRIEST Location:[facility] Appointment Type:PC OV Appointment Date:07/16/2024 04:00:00 PM Scheduled Provider:JACK PRIEST Location:[facility] Appointment Type:PC OV [facility] Evaluation + Plan note Future Appointments Appointment Date:07/16/2024 03:30:00 PM Scheduled Provider:JACK PRIEST Location:[facility] Appointment Type: OV Diagnostic Tests Pending * Hepatitis A Antibody IgG 06/11/24 * Insulin Antibodies 06/11/24 * JESSIE by IFA Screen 06/11/24 [facility] Evaluation + Plan note Future Appointments Appointment Date:07/16/2024 10:00:00 AM Scheduled Provider:ARIEL WHITE MD Location:[facility] Appointment Type: OV Appointment Date:07/16/2024 03:30:00 PM Scheduled Provider:JACK PRIEST Location:[facility] Appointment Type: OV Future Scheduled Tests Laboratory* A1C Hemoglobin 06/16/24 * Insulin Level Total 06/16/24 [facility] Evaluation + Plan note Future Appointments Appointment Date:09/10/2024 04:30:00 PM Scheduled Provider:JACK PRIEST Location:[facility] Appointment Type: OV Appointment Date:10/06/2024 09:30:00 AM Scheduled Provider: Location:[facility] Appointment Type:NUT Diet Visit Individual Future Scheduled Tests Laboratory* A1C Hemoglobin 06/16/24 * Insulin Level Total 06/16/24 [facility] Evaluation + Plan note Future Appointments Appointment Date:09/11/2024 01:00:00 PM Scheduled [place] [id number] Location:[facility] Appointment Type:PT [facility] Appointment Date:09/22/2024 01:00:00 PM [place]uled [place] [id number] Location:[facility] Appointment Type:PT [facility] Appointment Date:10/06/2024 09:30:00 AM Scheduled Provider: Location:[facility] Appointment Type:NUT Diet Visit Individual Appointment Date:10/15/2024 04:00:00 PM Scheduled Provider:JACK PRIEST Location:[facility] Appointment Type:[facility] Evaluation + Plan note Future Appointments Appointment Date:10/27/2024 01:30:00 PM Scheduled Provider: Location:[facility] Appointment Type:NUT Diet Visit Individual Appointment Date:10/28/2024 01:00:00 PM Scheduled [place] [id number] Location:[facility] Appointment Type:PT Treatment [facility] Appointment Date:11/26/2024 03:00:00 PM Scheduled Provider:JACK PRIEST Location:[facility] Appointment Type:[facility] Evaluation + Plan note Future Appointments Appointment Date:10/28/2024 01:00:00 PM Scheduled [place] [id number] Location:[facility] Appointment Type:PT Treatment [facility] Appointment Date:11/26/2024 03:00:00 PM Scheduled Provider:JACK PRIEST Location:[facility] Appointment Type: OV Appointment Date:02/09/2025 02:00:00 PM Scheduled Provider: Location:[facility] Appointment Type:NUT Diet Visit Individual [facility] Evaluation + Plan note Future Appointments Appointment Date:11/27/2024 01:00:00 PM Scheduled [place] [id number] Location:[facility] Appointment Type:PT Treatment [facility] Appointment Date:12/02/2024 08:30:00 AM Scheduled Provider:[place] [id number] Location:[facility] Appointment Type:PT Treatment [facility] Appointment Date:12/08/2024 08:00:00 AM Scheduled Provider:[place] [id number] Location:[facility] Appointment Type:PT Treatment [facility] Appointment Date:12/11/2024 01:00:00 PM Scheduled Provider:[place] [id number] Location:[facility] Appointment Type:PT Treatment [facility] Appointment Date:12/29/2024 02:30:00 PM Scheduled Provider:JACK PRIEST Location:[facility] Appointment Type:PC OV Appointment Date:02/09/2025 02:00:00 PM Scheduled Provider: Location:[facility] Appointment Type:NUT Diet Visit Individual [facility] Evaluation + Plan note Future Appointments Appointment Date:01/01/2025 01:30:00 PM Scheduled [place] [address] Location:[facility] Appointment Type:PT Treatment [facility] Appointment Date:01/06/2025 01:00:00 PM Scheduled Provider:[place] [address] Location:[facility] Appointment Type:PT [facility] Appointment Date:01/08/2025 01:00:00 PM Scheduled [place] [id number] Location:[facility] Appointment Type:PT [facility] Appointment Date:01/13/2025 01:00:00 PM Scheduled Provider:[place] [id number] Location:[facility] Appointment Type:PT Treatment [facility] Appointment Date:01/15/2025 01:00:00 PM Scheduled Provider:[place] [address] Location:[facility] Appointment Type:PT Treatment [facility] Appointment Date:02/04/2025 03:00:00 PM Scheduled Provider:JACK PRIEST Location:[facility] Appointment Type:PC OV Follow Up Appointment Date:02/09/2025 02:00:00 PM Scheduled Provider: Location:[facility] Appointment Type:NUT Diet Visit Individual Diagnostic Tests Pending * Insulin Level Total 12/30/24 [facility] Evaluation + Plan note Future Appointments Appointment Date:01/15/2025 01:00:00 PM Scheduled Provider:[place] [id number] Location:[facility] Appointment Type:PT Treatment [facility] Appointment Date:02/04/2025 03:00:00 PM Scheduled Provider:JACK PRIEST Location:[facility] Appointment Type:PC OV Follow Up Appointment Date:02/09/2025 02:00:00 PM Scheduled Provider: Location:[facility] Appointment Type:NUT Diet Visit Individual [facility] evaluation + Plan note Future Appointments Appointment Date:02/20/2025 04:00:00 PM Scheduled Provider:JACK PRIEST Location:[facility] Appointment Type:PC OV Follow Up [facility] evaluation + Plan note Future Appointments Appointment Date:03/20/2025 04:30:00 PM Scheduled Provider:JACK PRIEST Location:[facility] Appointment Type:PC OV Appointment Date:05/25/2025 02:00:00 PM Scheduled Provider: Location:[facility] Appointment Type:NUT Diet Visit Individual Diagnostic Tests Pending * MTHFR 02/23/25 [facility] evaluation + Plan note Future Appointments Appointment Date:05/11/2025 05:00:00 PM Scheduled Provider:JACK PRIEST Location:[facility] Appointment Type:PC OV Appointment Date:05/25/2025 02:00:00 PM Scheduled Provider: Location:[facility] Appointment Type:NUT Diet Visit Individual Future Scheduled Tests Radiology* US Pelvis Non-OB Limited 03/25/25 [facility] evaluation noteNo assessment information available [facility] Work Phone: evaluation note* Diagnosis Onset Date Resolution Status Encounter for pre-employment health screening examination acute [facility] Work Phone: evaluation note* Diagnosis Onset Date Resolution Status Encounter for pre-employment health screening examination acute Contusion of left knee acute Left ankle sprain acute Sprain of left foot acute [facility] Work Phone: evaluation note* Diagnosis Onset Date Resolution Status Encounter for pre-employment health screening examination acute Contusion of left knee acute Left ankle sprain acute Sprain of left foot acute Left ankle sprain acute Left ankle sprain acute [facility] Work Phone: Evaluation note* Diagnosis Onset Date Resolution Status Encounter for pre-employment health screening examination acute Contusion of left knee acute Left ankle sprain acute Sprain of left foot acute Left ankle sprain acute Left ankle sprain acute Left ankle sprain acute Sprain of left foot acute Left ankle sprain acute Left ankle sprain acute [facility] Work Phone: Evaluation note* Diagnosis Onset Date Resolution Status Contusion [...] ankle sprain acute Left ankle sprain acute [facility] Work Phone: Evaluation note* Diagnosis Onset Date Resolution Status Left ankle sprain acute Left ankle sprain acute Left ankle sprain acute Sprain of left foot acute Left ankle sprain acute Left ankle sprain acute Left ankle sprain acute Sprain of left foot acute Left ankle sprain acute Left ankle sprain acute Left ankle sprain acute Hematuria acute [facility] Work Phone: Evaluation note* Diagnosis Moderate persistent asthma without complication- Primary Unspecified asthma Shortness of breath [R06.02] Shortness of breath Obesity without serious comorbidity, unspecified classification, unspecified obesity type [E66.9] Lung nodules [R91.8] Other nonspecific abnormal finding of lung field Mold exposure [Z77.120] Contact with and (suspected) exposure to mold [facility] Diagnosis Moderate persistent asthma without complication Unspecified asthma [facility] Diagnosis Lung nodule- Primary Solitary pulmonary nodule [facility] Diagnosis Mass of left breast, unspecified quadrant Family history of breast cancer Family history of malignant neoplasm of breast [facility] Diagnosis Breast pain- Primary Mastodynia Cyst of left breast Family history of breast cancer Family history of malignant neoplasm of breast [facility] Diagnosis Lung nodules- Primary Other nonspecific abnormal finding of lung field Moderate persistent asthma without complication Unspecified asthma [facility] Atypical chest pain- Primary Other chest pain [facility]* Diagnosis Lung nodule- Primary Solitary pulmonary nodule [facility] Diagnosis Normal ENT exam- Primary Chronic recurrent sinusitis Unspecified sinusitis (chronic) [facility] Diagnosis Foot pain, left- Primary Pain in limb Chronic pain of left ankle [facility]* Diagnosis Bilateral fibrocystic breast changes- Primary Cyst of left breast Breast pain Mastodynia Family history of breast cancer- mother in 30's , MGM, PGM Family history of malignant neoplasm of breast Excess weight Overweight [facility]* Diagnosis URI, acute- Primary Acute upper respiratory infections of unspecified site Acute cough [facility]* Diagnosis Atypical chest pain- Primary Other [...] and myositis, unspecified [facility]* Diagnosis 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 [facility] Diagnosis Dysphagia, unspecified type- Primary Irritable bowel syndrome with diarrhea Irritable bowel syndrome Nausea Nausea alone Abdominal bloating Flatulence, eructation, and gas pain [facility]* Diagnosis Onset Date Resolution Status Encounter for pre-employment health screening examination acute Left ankle sprain acute Strain of Achilles tendon ac [facility] Work Phone: Evaluation note* Diagnosis Onset Date Resolution Status Left ankle sprain acute Strain of Achilles tendon ac [facility] Work Phone: Evaluation note* Diagnosis Abdominal pain, unspecified abdominal location- Primary [facility]* Diagnosis Respiratory tract infection- Primary Other diseases of respiratory system, not elsewhere classified Vitamin D deficiency Unspecified vitamin D deficiency [facility]* Diagnosis Lung nodule- Primary Solitary pulmonary nodule Lung nodules Other nonspecific abnormal finding of lung field [facility]* Diagnosis Vitamin D deficiency- Primary Unspecified vitamin D deficiency [facility]* Diagnosis Digital nerve laceration, finger, initial encounter- Primary Digital nerve laceration, finger, initial encounter [facility] Diagnosis Digital nerve laceration, finger, initial encounter- Primary Digital nerve laceration, finger, initial encounter [facility] Diagnosis Blister- Primary Other, multiple, and unspecified sites, blister, without mention of infection Digital nerve laceration, finger, initial encounter [facility]* Diagnosis Irritable bowel syndrome with diarrhea Irritable bowel syndrome Digital nerve laceration, finger, initial encounter [facility]* Diagnosis Allergic rhinitis due to animal hair and dander- Primary Allergic rhinitis due to animal (cat) (dog) hair and dander documented [facility]* Diagnosis Pain of right hip- Primary Pain of right hip [facility]* Diagnosis Nausea- Primary Nausea alone Diarrhea, unspecified type [facility]* Diagnosis Nexplanon insertion- Primary Insertion of implantable subdermal contraceptive [facility] Diagnosis Menorrhagia with regular cycle- Primary Excessive or frequent menstruation Encounter for counseling regarding contraception [facility]* Diagnosis Nausea Nausea alone [facility] Diagnosis Blood clot in arm (HCC)- Primary Nexplanon in place Presence of subdermal contraceptive device documented [facility]* Diagnosis Blood clot in arm (HCC) documented [facility]* Diagnosis Class 3 severe obesity without serious comorbidity with body mass index (BMI) of 40.0 to 44.9 in adult, unspecified obesity type (HCC)- Primary Macromastia Hypertrophy of breast Chronic bilateral low back pain without sciatica Neck pain Cervicalgia Intertrigo Other specified erythematous condition [facility]* Diagnosis Dysphagia, unspecified type- Primary Abdominal bloating Flatulence, eructation, and gas pain [facility]* Diagnosis Midline thoracic back pain, unspecified chronicity- Primary Lumbar pain Lumbago Lumbar spondylosis Lumbosacral spondylosis without myelopathy documented [facility]* Diagnosis Pre-op evaluation- Primary Preoperative examination, [...] Note - Enrico Pierre APRN.CNP - 01/18/2024 9:39 AM EDT Associated Problem(s): [...] 40.77 kg/m . [facility] Diagnosis Pre-op evaluation- Primary Preoperative examination, [...] specified erythematous condition [facility]* Diagnosis Acute post-operative pain- Primary Macromastia [...] in arm (HCC) [facility]* Diagnosis Pre-op evaluation- Primary Preoperative examination, unspecified Morbid obesity (HCC) Morbid obesity Other migraine without status migrainosus, not intractable Borderline personality disorder (HCC) Borderline personality disorder Lung nodules Other nonspecific abnormal finding of lung field Blood clot in arm (HCC) Post-operative state- Primary Other postprocedural status Macromastia Hypertrophy of breast [facility] Diagnosis Pain of right hip Pre-op evaluation- Primary Preoperative examination, unspecified Morbid obesity (HCC) Morbid obesity Other migraine without status migrainosus, not intractable Borderline personality disorder (HCC) Borderline personality disorder Lung nodules Other nonspecific abnormal finding of lung field Blood clot in arm (HCC) [facility]* Diagnosis Dysphagia, unspecified type Nausea Nausea alone Abdominal bloating Flatulence, eructation, and gas pain Pre-op evaluation- Primary Preoperative examination, unspecified Morbid obesity (HCC) Morbid obesity Other migraine without status migrainosus, not intractable Borderline personality disorder (HCC) Borderline personality disorder Lung nodules Other nonspecific abnormal finding of lung field Blood clot in arm (HCC) documented [facility]* Diagnosis Pre-op evaluation- Primary Preoperative examination, unspecified Morbid obesity (HCC) Morbid obesity Other migraine without status migrainosus, not intractable Borderline personality disorder (HCC) Borderline personality disorder Lung nodules Other nonspecific abnormal finding of lung field Blood clot in arm (HCC) Incisional irritation, initial encounter- Primary [facility]* Diagnosis Pre-op evaluation- Primary Preoperative examination, unspecified Morbid obesity (HCC) Morbid obesity Other migraine without status migrainosus, not intractable Borderline personality disorder (HCC) Borderline personality disorder Lung nodules Other nonspecific abnormal finding of lung field Blood clot in arm (HCC) Near syncope- Primary Syncope and collapse documented [facility]* Diagnosis Pre-op evaluation- Primary Preoperative examination, unspecified Morbid obesity (HCC) Morbid obesity Other migraine without status migrainosus, not intractable Borderline personality disorder (HCC) Borderline personality disorder Lung nodules Other nonspecific abnormal finding of lung field Blood clot in arm (HCC) Post-operative state- Primary Other postprocedural status [facility] Diagnosis Pre-op evaluation- Primary Preoperative examination, [...] mention of myelopathy [facility] Diagnosis Pre-op evaluation- Primary Preoperative examination, unspecified Morbid obesity (HCC) Morbid obesity Other migraine without status migrainosus, not intractable Borderline personality disorder (HCC) Borderline personality disorder Lung nodules Other nonspecific abnormal finding of lung field Blood clot in arm (HCC) Dysphagia, unspecified type- Primary [facility] Diagnosis Pre-op evaluation- Primary Preoperative examination, unspecified Morbid obesity (HCC) Morbid obesity Other migraine without status migrainosus, not intractable Borderline personality disorder (HCC) Borderline personality disorder Lung nodules Other nonspecific abnormal finding of lung field Blood clot in arm (HCC) Menorrhagia with irregular cycle- Primary Excessive or frequent menstruation Superficial thrombophlebitis of right upper extremity [facility] Diagnosis Pre-op evaluation- Primary Preoperative examination, unspecified Morbid obesity (HCC) Morbid obesity Other migraine without status migrainosus, not intractable Borderline personality disorder (HCC) Borderline personality disorder Lung nodules Other nonspecific abnormal finding of lung field Blood clot in arm (HCC) Sore throat- Primary Acute pharyngitis [facility]- Primary Preoperative examination, unspecified Morbid obesity (HCC) Morbid obesity Other migraine without status migrainosus, not intractable Borderline personality disorder (HCC) Borderline personality disorder Lung nodules Other nonspecific abnormal finding of lung field Blood clot in arm (HCC) Dysphagia, unspecified type- Primary [facility] Diagnosis Pre-[facility] evaluation- Primary Preoperative examination, unspecified Morbid obesity (HCC) Morbid obesity Other migraine without status migrainosus, not intractable Borderline personality disorder (HCC) Borderline personality disorder Lung nodules Other nonspecific abnormal finding of lung field Blood clot in arm (HCC) Dysphagia, unspecified type [facility] Diagnosis Pre-op evaluation- Primary Preoperative examination, unspecified Morbid obesity (HCC) Morbid obesity Other migraine without status migrainosus, not intractable Borderline personality disorder (HCC) Borderline personality disorder Lung nodules Other nonspecific abnormal finding of lung field Blood clot in arm (HCC) Lung nodules Other nonspecific abnormal finding of lung field [facility]* Diagnosis Pre-op evaluation- Primary Preoperative examination, [...] of circulatory system documented in this encounter [facility] note* Diagnosis Pre-op evaluation- Primary Preoperative examination, unspecified Morbid obesity (HCC) Morbid obesity Other migraine without status migrainosus, not intractable Borderline personality disorder (HCC) Borderline personality disorder Lung nodules Other nonspecific abnormal finding of lung field Blood clot in arm (HCC) Lung nodules- Primary Other nonspecific abnormal finding of lung field Chronic cough Cough [facility]* Diagnosis Menorrhagia with regular cycle- Primary Excessive or frequent menstruation Cyst of peritoneal cavity documented in this encounter 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 documented in this encounter [facility] note* Diagnosis Family history of breast cancer Family history of malignant neoplasm of breast documented in this encounter [facility] note* Diagnosis Pre-op evaluation- Primary Preoperative examination, unspecified Morbid obesity (HCC) Morbid obesity Other migraine without status migrainosus, not intractable Borderline personality disorder (HCC) Borderline personality disorder Lung nodules Other nonspecific abnormal finding of lung field Blood clot in arm (HCC) Lung nodules- Primary Other nonspecific abnormal finding of lung field [facility]* Diagnosis Pre-op evaluation- Primary Preoperative examination, [...] of lymph nodes [facility] Diagnosis Pre-op evaluation- Primary Preoperative examination, unspecified Morbid obesity (HCC) Morbid obesity Other migraine without status migrainosus, not intractable Borderline personality disorder (HCC) Borderline personality disorder Lung nodules Other nonspecific abnormal finding of lung field Blood clot in arm (HCC) Pre-op testing- Primary Preoperative examination, unspecified [facility] Diagnosis Pre-op evaluation- Primary Preoperative examination, [...] (HCC) Morbid obesity [facility] Diagnosis Pre-op evaluation- Primary Preoperative examination, unspecified Morbid obesity (HCC) Morbid obesity Other migraine without status migrainosus, not intractable Borderline personality disorder (HCC) Borderline personality disorder Lung nodules Other nonspecific abnormal finding of lung field Blood clot in arm (HCC) Histoplasmosis- Primary Histoplasmosis, unspecified without mention of manifestation Medication monitoring encounter Encounter for therapeutic drug monitoring [facility] Diagnosis Pre-op evaluation- Primary Preoperative examination, [...] and biological substance [facility] Diagnosis Pre-op evaluation- Primary Preoperative examination, unspecified Morbid obesity (HCC) Morbid obesity Other migraine without status migrainosus, not intractable Borderline personality disorder (HCC) Borderline personality disorder Lung nodules Other nonspecific abnormal finding of lung field Blood clot in arm (HCC) Necrotizing granulomatous inflammation (HCC)- Primary [facility] Diagnosis Pre-op evaluation- Primary Preoperative examination, [...] disorder of liver [facility] Diagnosis Pre-op evaluation- Primary Preoperative examination, unspecified Morbid obesity (HCC) Morbid obesity Other migraine without status migrainosus, not intractable Borderline personality disorder (HCC) Borderline personality disorder Lung nodules Other nonspecific abnormal finding of lung field Blood clot in arm (HCC) Histoplasmosis- Primary Histoplasmosis, unspecified without mention of manifestation [facility]* Diagnosis Pre-op evaluation- Primary Preoperative examination, unspecified Morbid obesity (HCC) Morbid obesity Other migraine without status migrainosus, not intractable Borderline personality disorder (HCC) Borderline personality disorder Lung nodules Other nonspecific abnormal finding of lung field Blood clot in arm (HCC) Necrotizing granulomatous inflammation (HCC)- Primary Acute cough [facility] Diagnosis Pre-op evaluation- Primary Preoperative examination, [...] in adult (HCC) [facility]* Diagnosis Pre-op evaluation- Primary Preoperative examination, unspecified Morbid obesity (HCC) Morbid obesity Other migraine without status migrainosus, not intractable Borderline personality disorder (HCC) Borderline personality disorder Lung nodules Other nonspecific abnormal finding of lung field Blood clot in arm (HCC) Prediabetes Other abnormal glucose [facility]* Diagnosis Pre-op evaluation- Primary Preoperative examination, unspecified Morbid obesity (HCC) Morbid obesity Other migraine without status migrainosus, not intractable Borderline personality disorder (HCC) Borderline personality disorder Lung nodules Other nonspecific abnormal finding of lung field Blood clot in arm (HCC) Class 2 severe obesity due to excess calories with serious comorbidity and body mass index (BMI) of 39.0 to 39.9 in adult ([facility])- Primary Prediabetes Other abnormal glucose documented in this encounter [facility] note* Diagnosis Pre-op evaluation- Primary Preoperative examination, unspecified Morbid obesity (HCC) Morbid obesity Other migraine without status migrainosus, not intractable Borderline personality disorder (HCC) Borderline personality disorder Lung nodules Other nonspecific abnormal finding of lung field Blood clot in arm (HCC) Necrotizing granulomatous inflammation ([facility])- Primary Histoplasmosis Histoplasmosis, unspecified without mention of manifestation Chronic cough Cough documented in this encounter [facility] note* Diagnosis Chronic pelvic pain in female- Primary Unspecified symptom associated with female genital organs High-tone pelvic floor dysfunction documented in this encounter [facility] note* Diagnosis Chronic pelvic pain in female- Primary Unspecified symptom associated with female genital organs High-tone pelvic floor dysfunction Chronic pelvic pain in female Unspecified symptom associated with female genital organs High-tone pelvic floor dysfunction documented in this encounter [facility] course Narrative No data available for this section [facility] Hospital Discharge instructions No data available for this section [facility] Progress note No data available for this section [facility] Reason for referral (narrative)* Outpatient Procedure (Routine) - Authorized Specialty Diagnoses / Procedures Referred By Elijah t Referred To [facility] Diagnoses Moderate persistent asthma without complication Procedures NITRIC OXIDE, EXHALED NITRIC OXIDE GAS DETERMINATION Lul Carranza APRN.CNP [address] [place] [address] [facility] [place] [address] Referral ID Status Reason Start Date Expiration Date Visits Requested Visits Authorized [id number] Authorized Auto-Generat ed Referral 3 05/16/2024 1 1 * Outpatient Procedure (Routine) - Authorized Specialty Diagnoses / Procedures Referred By Contparker carroll Referred To Contact [facility] Diagnoses Moderate persistent asthma without complication Procedures LUNG DIFFUSION CAPACITY (DLCO) DIFFUSING CAPACITY Lul Carranza APRN.CNP [address] [place] [address] [facility] [place] [address] [place] [address] Referral ID Status Reason Start Date Expiration Date Visits Requested Visits Authorized [id number] Authorized Auto-Generat ed Referral 05/16/2024 1 1 [facility] for referral (narrative)* Outpatient Procedure (Routine) - Authorized Specialty Diagnoses / Procedures Referred By Contac t Referred To Contact [facility]ART AND [facility]ASCULAR [facility] Diagnoses Atypical chest pain Procedures ECHO ECHO TTHRC R-T 2D W/WOM-MODE COMPL SPEC&COLR D Anshul Fernandez PA-C [address] [facility] [address] [place] [address] [address] [place] [phone] Referral ID Status Reason Start Date Expiration Date Visits Requested Visits Authorized [id number] Authorized Auto-Generat ed Referral 06/25/2023 06/24/2024 1 1 [facility] for referral (narrative)* Diagnostic Procedure Only (Urgent) - Closed Specialty Diagnoses / Procedures Referred By Contac t Referred To Contact XR IMAGING Diagnoses Pain of right hip Procedures XR HIP GENERAL 3V PELV/AP/LAT RIGHT RADEX HIP UNILATERAL WITH PELVIS 2-3 VIEWS Rebel Sneed APRN.CNP [address] [place] [address] Xr Imaging [facility]95 Referral ID Status Reason Start Date Expiration Date V isits Requested Visits Authorized [id number] Closed Auto-Generate d Referral 11/05/2023 12/04/2024 1 1 [facility] for referral (narrative)* Diagnostic Procedure Only (Routine) - Additional Clinical Info Needed Specialty Diagnoses / Procedures Referred By Contac t Referred To Contact MOLECULAR & FUNCTIONAL IMAGING Diagnoses Nausea Procedures NM GASTRIC EMPTYING SOLID GASTRIC EMPTYING STUDY Mary Parsons PA-C [address] [place] [address] Molecular & Functional Imaging [address] [phone] Referral ID Status Reason Start Date Expiration Date Visits Requested Visits Authorized [id number] Additional Clinical Info Needed Auto-Generat ed Referral 11/20/2023 12/19/2024 1 1 [facility] for referral (narrative)* Outpatient Procedure (Routine) - Authorized Specialty Diagnoses / Procedures Referred By Elijah carroll Referred To Contact [facility] Diagnoses Nexplanon insertion Encounter for surveillance of implantable subdermal contraceptive Procedures NEXPLANON INSERTION ETONOGESTREL IMPLANT SYSTEM INSERT DRUG IMPLANT DEVICE REMOVAL NON-BIODEGRADABLE DRUG DELIVERY IMPLANT Mari Corey APRN.BIOMATHEMATICIAN [address] [place] [address] [address] Referral ID Status Reason Start Date Expiration Date Visits Requested Visits Authorized [id number] Authorized Auto-Generat ed Referral 12/07/2023 05/20/2024 2 2 [facility] for referral (narrative)* Outpatient Procedure (Routine) - Closed Specialty Diagnoses / Procedures Referred By Elijah carroll Referred To Contact [facility] Diagnoses Menorrhagia with regular cycle Procedures NEXPLANON INSERTION ETONOGESTREL IMPLANT SYSTEM INSERT DRUG IMPLANT DEVICE Marilyn Piña APRN.CNM [address] [place] [address] [facility] [address] [place] [address] Referral ID Status Reason Start Date Expiration Date V isits Requested Visits Authorized [id number] Closed Auto-Generate d Referral 12/03/2023 12/02/2024 1 1 * Diagnostic Procedure Only (Routine) - Authorized Specialty Diagnoses / Procedures Referred By Lynnetteac t Referred To Contact [facility] Diagnoses Menorrhagia with regular cycle Procedures PELVIC US WHI US PELVIC NONOBSTETRIC REAL-TIME IMAGE COMPLETE Marilyn Piña APRN.CNM [address] [place] [address] [facility] [address] [place] [address] Referral ID Status Reason Start Date Expiration Date Visits Requested Visits Authorized [id number] Authorized Auto-Generat ed Referral 12/03/2023 12/02/2024 1 1 [facility] for referral (narrative)* Diagnostic Procedure Only (Routine) - Closed Specialty Diagnoses / Procedures Referred By Elijah t Referred To Contact MOLECULAR & FUNCTIONAL IMAGING Diagnoses Nausea Procedures NM GASTRIC EMPTYING SOLID GASTRIC EMPTYING STUDY Mary Parsons PA-C [address] [place] [address] Molecular & Functional Imaging [address] [place] [address] Referral ID Status Reason Start Date Expiration Date V isits Requested Visits Authorized [id number] Closed Auto-Generate d Referral 11/21/2023 01/05/2024 1 1 [facility] for referral (narrative)* Outpatient Procedure (Routine) - Closed Specialty Diagnoses / Procedures Referred By Contac t Referred To Contact [facility] VASCULAR [facility] Diagnoses Blood clot in arm (HCC) Procedures US ARM VEIN DVT UNL VAS LAB DUP-SCAN XTR VEINS UNILATERAL/LIMITED STUDY Marilyn Piña APRN.CNM [address] [place] [address] [facility] [address] [place] [address] Referral ID Status Reason Start Date Expiration Date V isits Requested Visits Authorized [id number] Closed Auto-Generate d Referral 12/25/2023 12/24/2024 1 1 [facility] for referral (narrative)* Outpatient Procedure (Routine) - New Request Specialty Diagnoses / Procedures Referred By Contac t Referred To Contact [facility] Diagnoses Dysphagia, unspecified type Procedures MANOMETRY ESOPHAGEAL ESOPHAGEAL MOTILITY STUDY W/INTERP&RPT Mary Parsons PA-C [address] [place] [address] [facility] [place] [address] Referral ID Status Reason Start Date Expiration Date Visits Requested Visits Authorized [id number] New Request Auto-Generat ed Referral 01/01/2024 12/31/2024 1 1 [facility] for referral (narrative)* Diagnostic Procedure Only (Urgent) - Closed Specialty Diagnoses / Procedures Referred By Contac t Referred To Contact XR IMAGING Diagnoses Pain of right hip Procedures XR HIP GENERAL 3V PELV/AP/LAT RIGHT RADEX HIP UNILATERAL WITH PELVIS 2-3 VIEWS Rebel Sneed APRN.CNP [address] [place] [address] Xr Imaging [facility]95 Referral ID Status Reason Start Date Expiration Date V isits Requested Visits Authorized [id number] Closed Auto-Generate d Referral 11/05/2023 12/04/2024 1 1 [facility] for referral (narrative)* Outpatient Procedure (Routine) - Closed Specialty Diagnoses / Procedures Referred By Contac t Referred To Contact [facility] Diagnoses Dysphagia, unspecified type Nausea Abdominal bloating Procedures EGD DIAGNOSTIC ESOPHAGOGASTRODUODENOSC OPY TRANSORAL DIAGNOSTIC Mary Parsons PA-C [address] [place] [address] [facility] [place] [address] [facility] [address] Referral ID Status Reason Start Date Expiration Date V isits Requested Visits Authorized [id number] Closed Auto-Generate d Referral 08/30/2023 08/29/2024 1 1 [facility] for referral (narrative)* Outpatient Procedure (Routine) - Authorized Specialty Diagnoses / Procedures Referred By Elijah carroll Referred To Contact [facility] VASCULAR [facility] Diagnoses Near syncope Procedures ECG COMPLETE ECG ROUTINE ECG W/LEAST 12 LDS W/I&R Javi Stevens MD [address] [place] [address] [address] Referral ID Status Reason Start Date Expiration Date Visits Requested Visits Authorized [id number] Authorized Auto-Generat ed Referral 02/04/2024 02/03/2025 1 1 [facility] for visit Narrative* Diagnostic Procedure Only (Routine) - Closed Specialty Diagnoses / Procedures Referred By Elijah carroll Referred To Contact BR IMAGING Diagnoses Mass of left breast, unspecified quadrant Family history of breast cancer Procedures US BREAST LTD LEFT US BREAST UNI REAL TIME WITH IMAGE LIMITED Lul Carranza, VALARIE.BIOMATHEMATICIAN [address] [place] [address] Br Imaging [address] [place] [phone] Referral ID Status Reason Start Date Expiration Date V isits Requested Visits Authorized [id number] Closed Auto-Generate d Referral 04/20/2023 05/19/2024 1 1 [facility] for visit Narrative* Outpatient Procedure (Routine) - Closed Specialty Diagnoses / Procedures Referred By Elijah carroll Referred To Contact [facility] V[facility]ULAR [facility] Diagnoses Blood clot in arm (HCC) Procedures US ARM VEIN DVT UNL VAS LAB DUP-SCAN XTR VEINS UNILATERAL/LIMITED STUDY Marilyn Piña APRN[address] [place] [address] [facility] [place] [address] [place] [address] Referral ID Status Reason Start Date Expiration Date V isits Requested Visits Authorized [id number] Closed Auto-Generate d Referral 12/25/2023 12/24/2024 1 1 [facility] for visit Narrative* Diagnostic Procedure Only (Urgent) - Closed Specialty Diagnoses / Procedures Referred By Contac t Referred To Contact XR IMAGING Diagnoses Pain of right hip Procedures XR HIP GENERAL 3V PELV/AP/LAT RIGHT RADEX HIP UNILATERAL WITH PELVIS 2-3 VIEWS Rebel Sneed, NET TECHNICAL ARCHITECT.BIOMATHEMATICIAN [address] [address] [place] [address] Referral ID Status Reason Start Date Expiration Date V isits Requested Visits Authorized [id number] Closed Auto-Generate d Referral 11/05/2023 12/04/2024 1 1 [facility] for visit Narrative* Outpatient Procedure (Routine) - Closed Specialty Diagnoses / Procedures Referred By Contac t Referred To Contact [facility] Diagnoses Dysphagia, unspecified type Nausea Abdominal bloating Procedures EGD DIAGNOSTIC ESOPHAGOGASTRODUODENOSC OPY TRANSORAL DIAGNOSTIC Mary Parsons PA-C [address] [facility] [address] [facility] [place] [address] [place] [address] Referral ID Status Reason Start Date Expiration Date V isits Requested Visits Authorized [id number] Closed Auto-Generate d Referral 08/30/2023 08/29/2024 1 1 [facility] for visit Narrative* Diagnostic Procedure Only (Routine) - Closed Specialty Diagnoses / Procedures Referred By Contac t Referred To Contact Radiology / RADIO GENERAL [facility] WS Diagnoses rm 3 Procedures XR CHEST Orlando Chopra NET TECHNICAL ARCHITECT.BIOMATHEMATICIAN [address] [place] [address] Radio General [facility] [address] [place] [address] Referral ID Status Reason Start Date Expiration Date Visits Re quested Visits Authorized [id number] Closed 08/03/2023 08/03/2023 1 1 [facility] for visit Narrative* Diagnostic Procedure Only (Routine) - Closed Specialty Diagnoses / Procedures Referred By Contac t Referred To Contact XR IMAGING Diagnoses Dysphagia, unspecified type Procedures XR MODIFIED BARIUM SWALLOW W SPEECH THERAPY RADIOLOGIC EXAM SWALLOW FUNCTION CONTRAST STUDY Mary Parsons PA-C [address] [place] [address] Xr Imaging [facility]95 Referral ID Status Reason Start Date Expiration Date V isits Requested Visits Authorized [id number] Closed Auto-Generate d Referral 02/21/2024 03/22/2025 1 1 [facility] for visit Narrative* Diagnostic Procedure Only (Routine) - Closed Specialty Diagnoses / Procedures Referred By Elijah t Referred To Contact [facility] Diagnoses Menorrhagia with regular cycle Procedures PELVIC US WHI US PELVIC NONOBSTETRIC REAL-TIME IMAGE COMPLETE Marilyn Piña APRN.[facility] [address] [place] [address] [facility] [address] [place] [address] Referral ID Status Reason Start Date Expiration Date V isits Requested Visits Authorized [id number] Closed Auto-Generate d Referral 12/03/2023 12/02/2024 1 1 [facility] for visit Narrative* Referral (Routine) - Open Specialty Diagnoses / Procedures Referred By Elijah t Referred To Contact Diagnoses Family history of breast cancer Procedures Genetic Sendout: CancerNext-Expanded [place] [address] Phone: tel: fax: Referral ID Status Reason Start Date Expiration Date V isits Requested Visits Authorized [id number] Open Specialty Services Required 02/15/2024 02/14/2025 1 1 [facility] Concerns Infection Onset Date Last Indicated [...] OBWC/LEFT ANKLE INJURY/CCHO XRAY LEFT ANKLE LOWER LEG/ORTHODOXY CHILDRENS left ankle strain LT ANKLE INJURY/ORTHODOXY CHILDREN Reason for Visit Encounter for pre-em ployment health screening examination Contusion of left knee Left ankle sprain Sprain of left foot Left ankle sprain Left ankle sprain Chief Complaint PE DRUG SCREEN & PHY SICAL/CCHO anxiety hip pain anxiety OBWC/LEFT ANKLE INJURY/CCHO XRAY LEFT ANKLE LOWER LEG/ORTHODOXY CHILDRENS left ankle strain LT ANKLE INJURY/ORTHODOXY CHILDREN 1 W FU 2 W FU/CCHO [...] ANKLE INJU RY/CCHO XRAY LEFT ANKLE LOWER LEG/ORTHODOXY CHILDRENS left ankle strain LT ANKLE INJURY/ORTHODOXY CHILDREN 1 W FU 2 W FU/CCHO [...] sprain Chief Complaint LEFT ANKLE LOWER LEG /ORTHODOXY CHILDRENS left ankle strain LT ANKLE INJURY/ORTHODOXY CHILDREN 1 W FU 2 W FU/CCHO [...] Hematuria Chief Complaint LEFT ANKLE LOWER LEG /ORTHODOXY CHILDRENS left ankle strain LT ANKLE INJURY/ORTHODOXY CHILDREN 1 W FU 2 W FU/CCHO [...] ankle sprain Hematuria Chief Complaint PRE-EMPLOYMENT PHYSI [facility]/FENCE REOCCURING LEFT FOOT PAIN Reason for Visit Encounter for pre-em ployment health screening examination Left ankle sprain Strain of Achilles tendon Chief Complaint REOCCURING LEFT FOOT PAIN ABD PAIN Reason for Visit Left ankle sprain Strain of Achilles tendon Advance Directives No Advanced Directives Records Found Advance Directive Response Recorded Date/ Time Living Will No May 16 022 7:58pm Power of Completion Engineer No May 16, 2022 7:58pm Advance Directive Response Recorded Date/ Time Living Will No September 22, 2022 5: 40pm Power of Completion Engineer No September 22, 2022 5:40pm Advance Directive Response Recorded Date/ Time Living Will No October 14, 2022 8 :36pm Power of Completion Engineer No October 14, 2022 8:36pm Advance Directive Response Recorded Date/ Time Living Will No February 24 9:05pm Power of Completion Engineer No February 24 9:05pm Advance Directive Response Recorded Date/ Time Living Will No March 09 6:31pm Power of Completion Engineer No March 09, 2023 6:31pm Advance Directive Response Recorded Date/ Time Living Will No March 18 4:34pm Power of Completion Engineer No March 18, 2023 4:34pm Advance Directive Response Recorded Date/ Time Living Will No July 30, 2023 8:43am Power of Completion Engineer No July 29 8:43am Advance Directive Response Recorded Date/ Time Living Will No September 21, 2023 4: 45pm Power of Completion Engineer No September 21, 2023 4:45pm Summary Purpose Family History No Family History Records Found Family Member Condition Father Obesity Father High blood pressure Father Diabetes - insulin d ependent Father Alcoholism Father Alive Mother Obesity Mother Cancer Mother Alive Reason for Referral Specialty Diagnoses / Procedures Referred By Contac t Referred To Contact Pulmonary Disease Diagnoses Lung nodules Procedures CONSULT TO LUNG NODULE CLINIC OFFICE/OUTPATIENT [facility] 60 MINUTES Lul Carranza APRN.BIOMATHEMATICIAN [address] [place] [address] Referral ID Status Reason Start Date Expiration Date Visits Requested Visits Authorized [id number] Authorized PCP Requested Referral 06/27/2024 06/27/2025 1 1 Specialty Diagnoses / Procedures Referred By Contac t Referred To Contact [facility] Diagnoses Dysphagia, unspecified type Procedures CONSULT TO SPEECH THERAPY OFFICE/OUTPATIENT [facility] 60 MINUTES Mary Parsons PA-C [address] [place] [address] [facility] [place] [address] [place] [address] Referral ID Status Reason Start Date Expiration Date Visits Requested Visits Authorized [id number] Pending Review Auto-Generat ed Referral 02/13/2024 02/12/2025 1 1 Specialty Diagnoses / Procedures Referred By Contac t Referred To Contact Spine [place] Diagnoses Chronic low back pain without sciatica, unspecified back pain laterality Thoracic disc herniation Facet arthropathy Procedures CONSULT TO SPINE MEDICAL CENTER OFFICE/OUTPATIENT [facility] 60 MINUTES Aury Tristan DO [address] [place] [address] Referral ID Status Reason Start Date Expiration Date Visits Requested Visits Authorized [id number] Authorized PCP Requested Referral 02/06/2024 02/05/2025 1 1 Specialty Diagnoses / Procedures Referred By Contac t Referred To Contact Diagnoses Class 3 severe obesity without serious comorbidity with body mass index (BMI) of 40.0 to 44.9 in adult, unspecified obesity type (HCC) Procedures CONSULT BARIATRIC/[facility] OFFICE/OUTPATIENT [facility] 60 MINUTES Stacy Segura MD [address] [place] [address] Referral ID Status Reason Start Date Expiration Date Visits Requested Visits Authorized [id number] Authorized PCP Requested Referral 12/31/2023 12/30/2024 1 1 Specialty Diagnoses / Procedures Referred By Contac t Referred To Contact [facility] Diagnoses Digital nerve laceration, finger, initial encounter Procedures CONSULT TO PACKING LINE WORKER OCCUPATIONAL THERAPY EVAL HIGH COMPLEX 60 MINS Mari Mcmullen PA-C [address] [place] [address] [facility] [place] [phone] Referral ID Status Reason Start Date Expiration Date Visits Requested Visits Authorized [id number] Pending Review Auto-Generat ed Referral 10/05/2023 10/04/2024 1 1 Specialty Diagnoses / Procedures Referred By Contac t Referred To Contact CT IMAGING Diagnoses Lung nodules Procedures CT CHEST WO IVCON DIAGNOSTIC COMPUTED TOMOGRAPHY THORAX W/O BAT Lul Carranza, VALARIE.BIOMATHEMATICIAN [address] [place] [address] [facility] [place] [address] Referral ID Status Reason Start Date Expiration Date Visits Requested Visits Authorized [id number] Pending Review Auto-Generat ed Referral 03/29/2024 10/26/2024 1 1 Specialty Diagnoses / Procedures Referred By Contac t Referred To Contact Diagnoses Irritable bowel syndrome with diarrhea Migraine without status migrainosus, not intractable, unspecified migraine type Poor sleep Fibromyalgia Procedures CONSULT TO WELLNESS PHYSICIAN OFFICE/OUTPATIENT [facility] 60 MINUTES Aury Tristan DO [address] [place] [address] Referral ID Status Reason Start Date Expiration Date Visits Requested Visits Authorized [id number] Authorized PCP Requested Referral 08/06/2023 08/05/2024 1 1 Specialty Diagnoses / Procedures Referred By Contac t Referred To Contact [facility] Diagnoses 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 Procedures CONSULT TO PHYSICAL THERAPY PHYSICAL THERAPY EVALUATION HIGH COMPLEX 45 MINS KieranAury salazar, DO [address] [place], [place] [id number] [facility] [place] [phone] Referral ID Status Reason Start Date Expiration Date Visits Requested Visits Authorized [id number] Pending Review Auto-Generat ed Referral 08/06/2023 08/05/2024 1 1 Specialty Diagnoses / Procedures Referred By Elijah carroll Referred To Contact Gastroenterology Diagnoses Irritable bowel syndrome with diarrhea Procedures CONSULT TO GASTROENTEROLOGY OFFICE/OUTPATIENT [facility] 60 MINUTES KieranAury salazar, DO [address] [place], [place] [id number] Referral ID Status Reason Start Date Expiration Date Visits Requested Visits Authorized [id number] Authorized PCP Requested Referral 08/06/2023 08/05/2024 1 1 Specialty Diagnoses / Procedures Referred By Elijah carroll Referred To Contact Diagnoses Family history of breast cancer Procedures CONSULT TO MEDICAL GENETICS - CANCER MEDICAL GENETICS COUNSELING EACH 30 [place] [address] [place] [phone] [facility] [place] [address] [place], [place] [id number] Referral ID Status Reason Start Date Expiration Date Visits Requested Visits Authorized [id number] Pending Review PCP Requested Referral Auto-Generate d Referral 07/19/2023 07/18/2024 1 1 Specialty Diagnoses / Procedures Referred By Elijah carroll Referred To Contact Breast Diseases Diagnoses Cyst of left breast Breast pain Family history of breast cancer Procedures CONSULT TO BREAST CENTER OFFICE/OUTPATIENT [facility] 60-74 MINUTES Lul Carranza APRN.BIOMATHEMATICIAN [address] [place] [phone] Referral ID Status Reason Start Date Expiration Date Visits Requested Visits Authorized [id number] Authorized PCP Requested Referral 04/26/2023 07/25/2023 1 1 Specialty Diagnoses / Procedures Referred By Contac t Referred To Contact CT IMAGING Diagnoses Moderate persistent asthma without complication Procedures CT CHEST WO IVCON DIAGNOSTIC COMPUTED TOMOGRAPHY THORAX W/O CNTRST Jack Alvarez MD [address] [place] [address] [place] [address] Referral ID Status Reason Start Date Expiration Date Visits Requested Visits Authorized [id number] Authorized Auto-Generat ed Referral 3 05/03/2024 1 1 Specialty Diagnoses / Procedures Referred By Contac t Referred To Contact [facility] Diagnoses Moderate persistent asthma without complication Procedures SPIROMETRY - BASELINE AND POST DILATOR BRNCDILAT RSPSE SPMTRY PRE&POST-BRNCDILAT ADMN Jack Alvarez MD [address] [place] [address] [facility] [place] [address] [place] [phone] Referral ID Status Reason Start Date Expiration Date Visits Requested Visits Authorized [id number] Authorized Auto-Generat ed Referral 3 05/03/2024 1 1 Additional Source Comments Source Comments (unrecognize d section and content) In the event this informatio n is protected by the Federal Confidentiality of Alcohol and Drug Abuse Patient Records regulations: The Federal rules restrict any use of the information to criminally investigate or prosecute any alcohol or drug abuse patient.[facility] the event this information is protected by the Federal Confidentiality of Alcohol and Drug Abuse Patient Records regulations: The Federal rules restrict any use of the information to criminally investigate or prosecute any alcohol or drug abuse patient.[facility] CenterIn the event this information is protected by the Federal Confidentiality of Alcohol and Drug Abuse Patient Records regulations: The Federal rules restrict any use of the information to criminally investigate or prosecute any alcohol or drug abuse patient.[facility] CenterIn the event this information is protected by the Federal Confidentiality of Alcohol and Drug Abuse Patient Records regulations: The Federal rules restrict any use of the information to criminally investigate or prosecute any alcohol or drug abuse patient.[facility] CenterIn the event this information is protected by the Federal Confidentiality of Alcohol and Drug Abuse Patient Records regulations: The Federal rules restrict any use of the information to criminally investigate or prosecute any alcohol or drug abuse patient.[facility] CenterIn the event this information is protected by the Federal Confidentiality of Alcohol and Drug Abuse Patient Records regulations: The Federal rules restrict any use of the information to criminally investigate or prosecute any alcohol or drug abuse patient.[facility] CenterIn the event this information is protected by the Federal Confidentiality of Alcohol and Drug Abuse Patient Records regulations: The Federal rules restrict any use of the information to criminally investigate or prosecute any alcohol or drug abuse patient.[facility] CenterIn the event this information is protected by the Federal Confidentiality of Alcohol and Drug Abuse Patient Records regulations: The Federal rules restrict any use of the information to criminally investigate or prosecute any alcohol or drug abuse patient.[facility] CenterIn the event this information is protected by the Federal Confidentiality of Alcohol and Drug Abuse Patient Records regulations: The Federal rules restrict any use of the information to criminally investigate or prosecute any alcohol or drug abuse patient.[facility] CenterIn the event this information is protected by the Federal Confidentiality of Alcohol and Drug Abuse Patient Records regulations: The Federal rules restrict any use of the information to criminally investigate or prosecute any alcohol or drug abuse patient.[facility] CenterIn the event this information is protected by the Federal Confidentiality of Alcohol and Drug Abuse Patient Records regulations: The Federal rules restrict any use of the information to criminally investigate or prosecute any alcohol or drug abuse patient.[facility] CenterIn the event this information is protected by the Federal Confidentiality of Alcohol and Drug Abuse Patient Records regulations: The Federal rules restrict any use of the information to criminally investigate or prosecute any alcohol or drug abuse patient.[facility] CenterIn the event this information is protected by the Federal Confidentiality of Alcohol and Drug Abuse Patient Records regulations: The Federal rules restrict any use of the information to criminally investigate or prosecute any alcohol or drug abuse patient.[facility] CenterIn the event this information is protected by the Federal Confidentiality of Alcohol and Drug Abuse Patient Records regulations: The Federal rules restrict any use of the information to criminally investigate or prosecute any alcohol or drug abuse patient.[facility] CenterIn the event this information is protected by the Federal Confidentiality of Alcohol and Drug Abuse Patient Records regulations: The Federal rules restrict any use of the information to criminally investigate or prosecute any alcohol or drug abuse patient.[facility] CenterIn the event this information is protected by the Federal Confidentiality of Alcohol and Drug Abuse Patient Records regulations: The Federal rules restrict any use of the information to criminally investigate or prosecute any alcohol or drug abuse patient.[facility] CenterIn the event this information is protected by the Federal Confidentiality of Alcohol and Drug Abuse Patient Records regulations: The Federal rules restrict any use of the information to criminally investigate or prosecute any alcohol or drug abuse patient.[facility] CenterIn the event this information is protected by the Federal Confidentiality of Alcohol and Drug Abuse Patient Records regulations: The Federal rules restrict any use of the information to criminally investigate or prosecute any alcohol or drug abuse patient.[facility] CenterIn the event this information is protected by the Federal Confidentiality of Alcohol and Drug Abuse Patient Records regulations: The Federal rules restrict any use of the information to criminally investigate or prosecute any alcohol or drug abuse patient.[facility] CenterIn the event this information is protected by the Federal Confidentiality of Alcohol and Drug Abuse Patient Records regulations: The Federal rules restrict any use of the information to criminally investigate or prosecute any alcohol or drug abuse patient.[facility] CenterIn the event this information is protected by the Federal Confidentiality of Alcohol and Drug Abuse Patient Records regulations: The Federal rules restrict any use of the information to criminally investigate or prosecute any alcohol or drug abuse patient.[facility] CenterIn the event this information is protected by the Federal Confidentiality of Alcohol and Drug Abuse Patient Records regulations: The Federal rules restrict any use of the information to criminally investigate or prosecute any alcohol or drug abuse patient.[facility] CenterIn the event this information is protected by the Federal Confidentiality of Alcohol and Drug Abuse Patient Records regulations: The Federal rules restrict any use of the information to criminally investigate or prosecute any alcohol or drug abuse patient.[facility] CenterIn the event this information is protected by the Federal Confidentiality of Alcohol and Drug Abuse Patient Records regulations: The Federal rules restrict any use of the information to criminally investigate or prosecute any alcohol or drug abuse patient.[facility] CenterIn the event this information is protected by the Federal Confidentiality of Alcohol and Drug Abuse Patient Records regulations: The Federal rules restrict any use of the information to criminally investigate or prosecute any alcohol or drug abuse patient.[facility] CenterIn the event this information is protected by the Federal Confidentiality of Alcohol and Drug Abuse Patient Records regulations: The Federal rules restrict any use of the information to criminally investigate or prosecute any alcohol or drug abuse patient.[facility] CenterIn the event this information is protected by the Federal Confidentiality of Alcohol and Drug Abuse Patient Records regulations: The Federal rules restrict any use of the information to criminally investigate or prosecute any alcohol or drug abuse patient.[facility] CenterIn the event this information is protected by the Federal Confidentiality of Alcohol and Drug Abuse Patient Records regulations: The Federal rules restrict any use of the information to criminally investigate or prosecute any alcohol or drug abuse patient.[facility] CenterIn the event this information is protected by the Federal Confidentiality of Alcohol and Drug Abuse Patient Records regulations: The Federal rules restrict any use of the information to criminally investigate or prosecute any alcohol or drug abuse patient.[facility] CenterIn the event this information is protected by the Federal Confidentiality of Alcohol and Drug Abuse Patient Records regulations: The Federal rules restrict any use of the information to criminally investigate or prosecute any alcohol or drug abuse patient.[facility] CenterIn the event this information is protected by the Federal Confidentiality of Alcohol and Drug Abuse Patient Records regulations: The Federal rules restrict any use of the information to criminally investigate or prosecute any alcohol or drug abuse patient.[facility] CenterIn the event this information is protected by the Federal Confidentiality of Alcohol and Drug Abuse Patient Records regulations: The Federal rules restrict any use of the information to criminally investigate or prosecute any alcohol or drug abuse patient.[facility] CenterIn the event this information is protected by the Federal Confidentiality of Alcohol and Drug Abuse Patient Records regulations: The Federal rules restrict any use of the information to criminally investigate or prosecute any alcohol or drug abuse patient.[facility] CenterIn the event this information is protected by the Federal Confidentiality of Alcohol and Drug Abuse Patient Records regulations: The Federal rules restrict any use of the information to criminally investigate or prosecute any alcohol or drug abuse patient.[facility] CenterIn the event this information is protected by the Federal Confidentiality of Alcohol and Drug Abuse Patient Records regulations: The Federal rules restrict any use of the information to criminally investigate or prosecute any alcohol or drug abuse patient.[facility] CenterIn the event this information is protected by the Federal Confidentiality of Alcohol and Drug Abuse Patient Records regulations: The Federal rules restrict any use of the information to criminally investigate or prosecute any alcohol or drug abuse patient.[facility] CenterIn the event this information is protected by the Federal Confidentiality of Alcohol and Drug Abuse Patient Records regulations: The Federal rules restrict any use of the information to criminally investigate or prosecute any alcohol or drug abuse patient.[facility] CenterIn the event this information is protected by the Federal Confidentiality of Alcohol and Drug Abuse Patient Records regulations: The Federal rules restrict any use of the information to criminally investigate or prosecute any alcohol or drug abuse patient.[facility] CenterIn the event this information is protected by the Federal Confidentiality of Alcohol and Drug Abuse Patient Records regulations: The Federal rules restrict any use of the information to criminally investigate or prosecute any alcohol or drug abuse patient.[facility] CenterIn the event this information is protected by the Federal Confidentiality of Alcohol and Drug Abuse Patient Records regulations: The Federal rules restrict any use of the information to criminally investigate or prosecute any alcohol or drug abuse patient.[facility] CenterIn the event this information is protected by the Federal Confidentiality of Alcohol and Drug Abuse Patient Records regulations: The Federal rules restrict any use of the information to criminally investigate or prosecute any alcohol or drug abuse patient.[facility] CenterIn the event this information is protected by the Federal Confidentiality of Alcohol and Drug Abuse Patient Records regulations: The Federal rules restrict any use of the information to criminally investigate or prosecute any alcohol or drug abuse patient.[facility] CenterIn the event this information is protected by the Federal Confidentiality of Alcohol and Drug Abuse Patient Records regulations: The Federal rules restrict any use of the information to criminally investigate or prosecute any alcohol or drug abuse patient.[facility] CenterIn the event this information is protected by the Federal Confidentiality of Alcohol and Drug Abuse Patient Records regulations: The Federal rules restrict any use of the information to criminally investigate or prosecute any alcohol or drug abuse patient.[facility] CenterIn the event this information is protected by the Federal Confidentiality of Alcohol and Drug Abuse Patient Records regulations: The Federal rules restrict any use of the information to criminally investigate or prosecute any alcohol or drug abuse patient.[facility] CenterIn the event this information is protected by the Federal Confidentiality of Alcohol and Drug Abuse Patient Records regulations: The Federal rules restrict any use of the information to criminally investigate or prosecute any alcohol or drug abuse patient.[facility] CenterIn the event this information is protected by the Federal Confidentiality of Alcohol and Drug Abuse Patient Records regulations: The Federal rules restrict any use of the information to criminally investigate or prosecute any alcohol or drug abuse patient.[facility] CenterIn the event this information is protected by the Federal Confidentiality of Alcohol and Drug Abuse Patient Records regulations: The Federal rules restrict any use of the information to criminally investigate or prosecute any alcohol or drug abuse patient.[facility] CenterIn the event this information is protected by the Federal Confidentiality of Alcohol and Drug Abuse Patient Records regulations: The Federal rules restrict any use of the information to criminally investigate or prosecute any alcohol or drug abuse patient.[facility] CenterIn the event this information is protected by the Federal Confidentiality of Alcohol and Drug Abuse Patient Records regulations: The Federal rules restrict any use of the information to criminally investigate or prosecute any alcohol or drug abuse patient.[facility] CenterIn the event this information is protected by the Federal Confidentiality of Alcohol and Drug Abuse Patient Records regulations: The Federal rules restrict any use of the information to criminally investigate or prosecute any alcohol or drug abuse patient.[facility] CenterIn the event this information is protected by the Federal Confidentiality of Alcohol and Drug Abuse Patient Records regulations: The Federal rules restrict any use of the information to criminally investigate or prosecute any alcohol or drug abuse patient.[facility] CenterIn the event this information is protected by the Federal Confidentiality of Alcohol and Drug Abuse Patient Records regulations: The Federal rules restrict any use of the information to criminally investigate or prosecute any alcohol or drug abuse patient.[facility] CenterIn the event this information is protected by the Federal Confidentiality of Alcohol and Drug Abuse Patient Records regulations: The Federal rules restrict any use of the information to criminally investigate or prosecute any alcohol or drug abuse patient.[facility] CenterIn the event this information is protected by the Federal Confidentiality of Alcohol and Drug Abuse Patient Records regulations: The Federal rules restrict any use of the information to criminally investigate or prosecute any alcohol or drug abuse patient.[facility]In the event this information is protected by the Federal Confidentiality of Alcohol and Drug Abuse Patient Records regulations: The Federal rules restrict any use of the information to criminally investigate or prosecute any alcohol or drug abuse patient.[facility]In the event this information is protected by the Federal Confidentiality of Alcohol and Drug Abuse Patient Records regulations: The Federal rules restrict any use of the information to criminally investigate or prosecute any alcohol or drug abuse patient.[facility] CenterIn the event this information is protected by the Federal Confidentiality of Alcohol and Drug Abuse Patient Records regulations: The Federal rules restrict any use of the information to criminally investigate or prosecute any alcohol or drug abuse patient.[facility]In the event this information is protected by the Federal Confidentiality of Alcohol and Drug Abuse Patient Records regulations: The Federal rules restrict any use of the information to criminally investigate or prosecute any alcohol or drug abuse patient.[facility] CenterIn the event this information is protected by the Federal Confidentiality of Alcohol and Drug Abuse Patient Records regulations: The Federal rules restrict any use of the information to criminally investigate or prosecute any alcohol or drug abuse patient.[facility] CenterIn the event this information is protected by the Federal Confidentiality of Alcohol and Drug Abuse Patient Records regulations: The Federal rules restrict any use of the information to criminally investigate or prosecute any alcohol or drug abuse patient.[facility] CenterIn the event this information is protected by the Federal Confidentiality of Alcohol and Drug Abuse Patient Records regulations: The Federal rules restrict any use of the information to criminally investigate or prosecute any alcohol or drug abuse patient.[facility] CenterIn the event this information is protected by the Federal Confidentiality of Alcohol and Drug Abuse Patient Records regulations: The Federal rules restrict any use of the information to criminally investigate or prosecute any alcohol or drug abuse patient.[facility] CenterIn the event this information is protected by the Federal Confidentiality of Alcohol and Drug Abuse Patient Records regulations: The Federal rules restrict any use of the information to criminally investigate or prosecute any alcohol or drug abuse patient.[facility] CenterIn the event this information is protected by the Federal Confidentiality of Alcohol and Drug Abuse Patient Records regulations: The Federal rules restrict any use of the information to criminally investigate or prosecute any alcohol or drug abuse patient.[facility] CenterIn the event this information is protected by the Federal Confidentiality of Alcohol and Drug Abuse Patient Records regulations: The Federal rules restrict any use of the information to criminally investigate or prosecute any alcohol or drug abuse patient.[facility] CenterIn the event this information is protected by the Federal Confidentiality of Alcohol and Drug Abuse Patient Records regulations: The Federal rules restrict any use of the information to criminally investigate or prosecute any alcohol or drug abuse patient.[facility] CenterIn the event this information is protected by the Federal Confidentiality of Alcohol and Drug Abuse Patient Records regulations: The Federal rules restrict any use of the information to criminally investigate or prosecute any alcohol or drug abuse patient.[facility] CenterIn the event this information is protected by the Federal Confidentiality of Alcohol and Drug Abuse Patient Records regulations: The Federal rules restrict any use of the information to criminally investigate or prosecute any alcohol or drug abuse patient.[facility] CenterIn the event this information is protected by the Federal Confidentiality of Alcohol and Drug Abuse Patient Records regulations: The Federal rules restrict any use of the information to criminally investigate or prosecute any alcohol or drug abuse patient.[facility]In the event this information is protected by the Federal Confidentiality of Alcohol and Drug Abuse Patient Records regulations: The Federal rules restrict any use of the information to criminally investigate or prosecute any alcohol or drug abuse patient.[facility] CenterIn the event this information is protected by the Federal Confidentiality of Alcohol and Drug Abuse Patient Records regulations: The Federal rules restrict any use of the information to criminally investigate or prosecute any alcohol or drug abuse patient.[facility]In the event this information is protected by the Federal Confidentiality of Alcohol and Drug Abuse Patient Records regulations: The Federal rules restrict any use of the information to criminally investigate or prosecute any alcohol or drug abuse patient.[facility]In the event this information is protected by the Federal Confidentiality of Alcohol and Drug Abuse Patient Records regulations: The Federal rules restrict any use of the information to criminally investigate or prosecute any alcohol or drug abuse patient.[facility] CenterIn the event this information is protected by the Federal Confidentiality of Alcohol and Drug Abuse Patient Records regulations: The Federal rules restrict any use of the information to criminally investigate or prosecute any alcohol or drug abuse patient.[facility]In the event this information is protected by the Federal Confidentiality of Alcohol and Drug Abuse Patient Records regulations: The Federal rules restrict any use of the information to criminally investigate or prosecute any alcohol or drug abuse patient.[facility] CenterIn the event this information is protected by the Federal Confidentiality of Alcohol and Drug Abuse Patient Records regulations: The Federal rules restrict any use of the information to criminally investigate or prosecute any alcohol or drug abuse patient.[facility] CenterIn the event this information is protected by the Federal Confidentiality of Alcohol and Drug Abuse Patient Records regulations: The Federal rules restrict any use of the information to criminally investigate or prosecute any alcohol or drug abuse patient.[facility] CenterIn the event this information is protected by the Federal Confidentiality of Alcohol and Drug Abuse Patient Records regulations: The Federal rules restrict any use of the information to criminally investigate or prosecute any alcohol or drug abuse patient.[facility] CenterIn the event this information is protected by the Federal Confidentiality of Alcohol and Drug Abuse Patient Records regulations: The Federal rules restrict any use of the information to criminally investigate or prosecute any alcohol or drug abuse patient.[facility] CenterIn the event this information is protected by the Federal Confidentiality of Alcohol and Drug Abuse Patient Records regulations: The Federal rules restrict any use of the information to criminally investigate or prosecute any alcohol or drug abuse patient.[facility] CenterIn the event this information is protected by the Federal Confidentiality of Alcohol and Drug Abuse Patient Records regulations: The Federal rules restrict any use of the information to criminally investigate or prosecute any alcohol or drug abuse patient.[facility] CenterIn the event this information is protected by the Federal Confidentiality of Alcohol and Drug Abuse Patient Records regulations: The Federal rules restrict any use of the information to criminally investigate or prosecute any alcohol or drug abuse patient.[facility] CenterIn the event this information is protected by the Federal Confidentiality of Alcohol and Drug Abuse Patient Records regulations: The Federal rules restrict any use of the information to criminally investigate or prosecute any alcohol or drug abuse patient.[facility] CenterIn the event this information is protected by the Federal Confidentiality of Alcohol and Drug Abuse Patient Records regulations: The Federal rules restrict any use of the information to criminally investigate or prosecute any alcohol or drug abuse patient.[facility] CenterIn the event this information is protected by the Federal Confidentiality of Alcohol and Drug Abuse Patient Records regulations: The Federal rules restrict any use of the information to criminally investigate or prosecute any alcohol or drug abuse patient.[facility] CenterIn the event this information is protected by the Federal Confidentiality of Alcohol and Drug Abuse Patient Records regulations: The Federal rules restrict any use of the information to criminally investigate or prosecute any alcohol or drug abuse patient.[facility] CenterIn the event this information is protected by the Federal Confidentiality of Alcohol and Drug Abuse Patient Records regulations: The Federal rules restrict any use of the information to criminally investigate or prosecute any alcohol or drug abuse patient.[facility] CenterIn the event this information is protected by the Federal Confidentiality of Alcohol and Drug Abuse Patient Records regulations: The Federal rules restrict any use of the information to criminally investigate or prosecute any alcohol or drug abuse patient.[facility] CenterIn the event this information is protected by the Federal Confidentiality of Alcohol and Drug Abuse Patient Records regulations: The Federal rules restrict any use of the information to criminally investigate or prosecute any alcohol or drug abuse patient.[facility] CenterIn the event this information is protected by the Federal Confidentiality of Alcohol and Drug Abuse Patient Records regulations: The Federal rules restrict any use of the information to criminally investigate or prosecute any alcohol or drug abuse patient.[facility] CenterIn the event this information is protected by the Federal Confidentiality of Alcohol and Drug Abuse Patient Records regulations: The Federal rules restrict any use of the information to criminally investigate or prosecute any alcohol or drug abuse patient.[facility] CenterIn the event this information is protected by the Federal Confidentiality of Alcohol and Drug Abuse Patient Records regulations: The Federal rules restrict any use of the information to criminally investigate or prosecute any alcohol or drug abuse patient.[facility] CenterIn the event this information is protected by the Federal Confidentiality of Alcohol and Drug Abuse Patient Records regulations: The Federal rules restrict any use of the information to criminally investigate or prosecute any alcohol or drug abuse patient.[facility] CenterIn the event this information is protected by the Federal Confidentiality of Alcohol and Drug Abuse Patient Records regulations: The Federal rules restrict any use of the information to criminally investigate or prosecute any alcohol or drug abuse patient.[facility] CenterIn the event this information is protected by the Federal Confidentiality of Alcohol and Drug Abuse Patient Records regulations: The Federal rules restrict any use of the information to criminally investigate or prosecute any alcohol or drug abuse patient.[facility] CenterIn the event this information is protected by the Federal Confidentiality of Alcohol and Drug Abuse Patient Records regulations: The Federal rules restrict any use of the information to criminally investigate or prosecute any alcohol or drug abuse patient.[facility] CenterIn the event this information is protected by the Federal Confidentiality of Alcohol and Drug Abuse Patient Records regulations: The Federal rules restrict any use of the information to criminally investigate or prosecute any alcohol or drug abuse patient.[facility] CenterIn the event this information is protected by the Federal Confidentiality of Alcohol and Drug Abuse Patient Records regulations: The Federal rules restrict any use of the information to criminally investigate or prosecute any alcohol or drug abuse patient.[facility] CenterIn the event this information is protected by the Federal Confidentiality of Alcohol and Drug Abuse Patient Records regulations: The Federal rules restrict any use of the information to criminally investigate or prosecute any alcohol or drug abuse patient.[facility] CenterIn the event this information is protected by the Federal Confidentiality of Alcohol and Drug Abuse Patient Records regulations: The Federal rules restrict any use of the information to criminally investigate or prosecute any alcohol or drug abuse patient.[facility] CenterIn the event this information is protected by the Federal Confidentiality of Alcohol and Drug Abuse Patient Records regulations: The Federal rules restrict any use of the information to criminally investigate or prosecute any alcohol or drug abuse patient.[facility] CenterIn the event this information is protected by the Federal Confidentiality of Alcohol and Drug Abuse Patient Records regulations: The Federal rules restrict any use of the information to criminally investigate or prosecute any alcohol or drug abuse patient.[facility] CenterIn the event this information is protected by the Federal Confidentiality of Alcohol and Drug Abuse Patient Records regulations: The Federal rules restrict any use of the information to criminally investigate or prosecute any alcohol or drug abuse patient.[facility] CenterIn the event this information is protected by the Federal Confidentiality of Alcohol and Drug Abuse Patient Records regulations: The Federal rules restrict any use of the information to criminally investigate or prosecute any alcohol or drug abuse patient.[facility] CenterIn the event this information is protected by the Federal Confidentiality of Alcohol and Drug Abuse Patient Records regulations: The Federal rules restrict any use of the information to criminally investigate or prosecute any alcohol or drug abuse patient.[facility] CenterIn the event this information is protected by the Federal Confidentiality of Alcohol and Drug Abuse Patient Records regulations: The Federal rules restrict any use of the information to criminally investigate or prosecute any alcohol or drug abuse patient.[facility] CenterIn the event this information is protected by the Federal Confidentiality of Alcohol and Drug Abuse Patient Records regulations: The Federal rules restrict any use of the information to criminally investigate or prosecute any alcohol or drug abuse patient.[facility] CenterIn the event this information is protected by the Federal Confidentiality of Alcohol and Drug Abuse Patient Records regulations: The Federal rules restrict any use of the information to criminally investigate or prosecute any alcohol or drug abuse patient.[facility] CenterIn the event this information is protected by the Federal Confidentiality of Alcohol and Drug Abuse Patient Records regulations: The Federal rules restrict any use of the information to criminally investigate or prosecute any alcohol or drug abuse patient.[facility] CenterIn the event this information is protected by the Federal Confidentiality of Alcohol and Drug Abuse Patient Records regulations: The Federal rules restrict any use of the information to criminally investigate or prosecute any alcohol or drug abuse patient.[facility] Goals (unrecognized section and content) Goals may [...] No data available for this section No Information Available No data available for this section Care [...] Care Provider, Refer ring Provider Active Kole DAILEY, PA Attending Provider Active Team Status: Inactive [...] Team Status: Inactive Member Role Status Dates ASIM Ward Attending Provider Active Team Status: Inactive Member [...] Care Physician Primary Care Provider Active Nick Cardona PA, PA Attending Provider Active Team Status: Inactive Member Role Status Dates Dr. Rehan Clifton DO Attending Provider, Emergency Provider Active Team Status: Inactive Member Role Status Dates Nick DAILEY, PA Attending Provider, Referring Provi brianda Active Team Status: Active Member Role Status Dates Jack Priest BUTTER FAT TESTER, BUTTER FAT TESTER-C Primary Care Provider Activ e Team Status: Inactive Member Role Status Dates Dr. Shawn Barrett MD Emergency Provider Active Jack Priest BUTTER FAT TESTER, BUTTER FAT TESTER-C Primary Care Provider Activ e Team Status: Inactive Member Role Status Dates Jack Priest BUTTER FAT TESTER, BUTTER FAT TESTER-C Primary Care Provider, Refe rring Provider Active Kole Mejía PA, PA Attending Provider Active Team Status: Inactive Member Role Status Dates Jack Priest BUTTER FAT TESTER, BUTTER FAT TESTER-C Primary Care Provider Activ e Dr. López Hernandez MD Attending Provider, Referring P rovider Active Team Status: Inactive Member Role Status Dates Dr. Shahzad Dsouza MD Emergency Provider Active No Primary Care Physician Primary Care Provider Active Casting Machine Operator Automatic Relationship Specialty Start Date End Date López Hernandez [address] [place] [address] Referring Orthopedics 09/22/23 Casting Machine Operator Automatic Relationship Specialty Start Date End Date López Hernandez [address] [place] [address] Referring Orthopedics 09/22/23 Casting Machine Operator Automatic Relationship Specialty Start Date End Date López Hernandez [address] [place] [address] Referring Orthopedics 09/22/23 Casting Machine Operator Automatic Relationship Specialty Start Date End Date López Hernandez [address] [place] [address] Referring Orthopedics 09/22/23 Casting Machine Operator Automatic Relationship Specialty Start Date End Date Lóepz Hernandez [address] [place] [address] Referring Orthopedics 09/22/23 Casting Machine Operator Automatic Relationship Specialty Start Date End Date López Hernandez [address] [place] [address] Referring Orthopedics 09/22/23 Casting Machine Operator Automatic Relationship Specialty Start Date End Date López Hernandez [address] [place] [address] Referring Orthopedics 09/22/23 Casting Machine Operator Automatic Relationship Specialty Start Date End Date López Hernandez [address] [place] [address] Referring Orthopedics 09/22/23 Casting Machine Operator Automatic Relationship Specialty Start Date End Date López Hernandez [address] [place] [address] Referring Orthopedics 09/22/23 Casting Machine Operator Automatic Relationship Specialty Start Date End Date López Hernandez [address] [place] [address] Referring Orthopedics 09/22/23 Casting Machine Operator Automatic Relationship Specialty Start Date End Date López Hernandez [address] [place] [address] Referring Orthopedics 09/22/23 Casting Machine Operator Automatic Relationship Specialty Start Date End Date Jack Priest CNP [address] [place] [address] PCP - General Family Medicine 11/05/23 López Hernandez [address] [place] [phone] Referring Orthopedics 09/22/23 Casting Machine Operator Automatic Relationship Specialty Start Date End Date Jack Priest CNP [address] [place] [address] PCP - General Family Medicine 11/05/23 López Hernandez [address] [facility] [address] [place] [phone] Referring Orthopedics 09/22/23 Casting Machine Operator Automatic Relationship Specialty Start Date End Date Jack Priest CNP [address] [place] [address] PCP - General Family Medicine 11/05/23 López Hernandez [address] [facility] [address] [place] [phone] Referring Orthopedics 09/22/23 Casting Machine Operator Automatic Relationship Specialty Start Date End Date Jack Priest CNP [address] [place] [address] [place] [address] PCP - General Family Medicine 11/05/23 López Hernandez [address] [place] [phone] Referring Orthopedics 09/22/23 Casting Machine Operator Automatic Relationship Specialty Start Date End Date Jack Priest CNP [address] [facility] [place] [address] PCP - General Family Medicine 11/05/23 López Hernandez [address] [place] [address] Referring Orthopedics 09/22/23 Casting Machine Operator Automatic Relationship Specialty Start Date End Date Jack Priest CNP [address] [place] [address] PCP - General Family Medicine 11/05/23 López Hernandez [address] [place] [address] Referring Orthopedics 09/22/23 Casting Machine Operator Automatic Relationship Specialty Start Date End Date Jack Priest CNP [address] [place] [address] PCP - General Family Medicine 11/05/23 López Hernandez [address] [place] [address] Referring Orthopedics 09/22/23 Casting Machine Operator Automatic Relationship Specialty Start Date End Date Jack Priest CNP 0 [place] [address] PCP - General Family Medicine 11/05/23 López Hernandez [address] [place] [address] Referring Orthopedics 09/22/23 Casting Machine Operator Automatic Relationship Specialty Start Date End Date Jack Priest CNP [address] [place] [address]17 PCP - General Family Medicine 11/05/23 López Hernandez [address] [place] [address] Referring Orthopedics 09/22/23 Casting Machine Operator Automatic Relationship Specialty Start Date End Date Jack Priest CNP [address] [place] [address]347 PCP - General Family Medicine 11/05/23 López Hernandez [address] [place] [phone] Referring Orthopedics 09/22/23 Casting Machine Operator Automatic Relationship Specialty Start Date End Date Jack Priest CNP [address] [place] [address] PCP - General Family Medicine 11/05/23 López Hernandez [address] [place] [address] Referring Orthopedics 09/22/23 Casting Machine Operator Automatic Relationship Specialty Start Date End Date Jack Priest CNP 0 [place] [address] PCP - General Family Medicine 11/05/23 López Hernandez [address] [place] [phone] Referring Orthopedics 09/22/23 Casting Machine Operator Automatic Relationship Specialty Start Date End Date Jack Priest CNP [address] [place] [address] PCP - General Family Medicine 11/05/23 López Hernandez [address] [place] [address] Referring Orthopedics 09/22/23 Casting Machine Operator Automatic Relationship Specialty Start Date End Date Jack Priest CNP [address] [place] [address]97 PCP - General Family Medicine 11/05/23 López Hernandez [address] [place] [address] Referring Orthopedics 09/22/23 Casting Machine Operator Automatic Relationship Specialty Start Date End Date Jack Priest CNP [address] [place] [address]41 PCP - General Family Medicine 11/05/23 López Hernandez [address] [place] [address] Referring Orthopedics 09/22/23 Casting Machine Operator Automatic Relationship Specialty Start Date End Date Jack Priest CNP [address] [place], [place] [address] [address] PCP - General Family Medicine 11/05/23 López Hernandez [address] [place] [phone] Referring Orthopedics 09/22/23 Casting Machine Operator Automatic Relationship Specialty Start Date End Date Jack Priest CNP 0 [place] [address] PCP - General Family Medicine 11/05/23 López Hernandez [address] [facility] [address] [place] [phone] Referring Orthopedics 09/22/23 Casting Machine Operator Automatic Relationship Specialty Start Date End Date Jack Priest CNP 0 [place] [address] PCP - General Family Medicine 11/05/23 López Hernandez [address] [facility] [address] [place] [phone] Referring Orthopedics 09/22/23 Casting Machine Operator Automatic Relationship Specialty Start Date End Date Jack Priest CNP 0 [place] [address] PCP - General Family Medicine 11/05/23 López Hernandez [address] [place] [address] Referring Orthopedics 09/22/23 Casting Machine Operator Automatic Relationship Specialty Start Date End Date Jack Priest CNP 0 [place] [address] PCP - General Family Medicine 11/05/23 López Hernandez [address] [place] [phone] Referring Orthopedics 09/22/23 Casting Machine Operator Automatic Relationship Specialty Start Date End Date Jack Priest CNP [address] [place] [address] PCP - General Family Medicine 11/05/23 López Hernandez [address] [place] [address] Referring Orthopedics 09/22/23 Casting Machine Operator Automatic Relationship Specialty Start Date End Date Jack Priest CNP [address] [place] [address]257 PCP - General Family Medicine 11/05/23 López Hernandez [address] [place] [phone]12 Referring Orthopedics 09/22/23 Casting Machine Operator Automatic Relationship Specialty Start Date End Date Jack Priest CNP [address] [place] [address]31 PCP - General Family Medicine 11/05/23 López Hernandez [address] [place] [address] Referring Orthopedics 09/22/23 Casting Machine Operator Automatic Relationship Specialty Start Date End Date Jack Priest CNP [address] [place] [address] PCP - General Family Medicine 11/05/23 López Hernandez [address] [place] [address] (Fax) Referring Orthopedics 09/22/23 Casting Machine Operator Automatic Relationship Specialty Start Date End Date Jack Priest CNP [address] [place] [address] (Fax) PCP - General Family Medicine 11/05/23 López Hernandez [address] [place] [address] (Fax) Referring Orthopedics 09/22/23 Casting Machine Operator Automatic Relationship Specialty Start Date End Date Jack Priest CNP [address] [place] [address] (Fax) PCP - General Family Medicine 11/05/23 López Hernandez [address] [place] [address] (Fax) Referring Orthopedics 09/22/23 Casting Machine Operator Automatic Relationship Specialty Start Date End Date Jack Priest CNP 0 [place] [address] (Fax) PCP - General Family Medicine 11/05/23 López Hernandez [address] [place] [address] Referring Orthopedics 09/22/23 Ariel White MD [address] [place] [address] Remote Encoding Center Manager 02/20/24 Casting Machine Operator Automatic Relationship Specialty Start Date End Date Jack Priest CNP [address] [place] [address] [place] [address] PCP - General Family Medicine 11/05/23 López Hernandez [address] [place] [phone] Referring Orthopedics 09/22/23 Ariel White MD [address] [place] [id number] Remote Encoding Center Manager 02/20/24 Casting Machine Operator Automatic Relationship Specialty Start Date End Date Jack Priest CNP [address] [place] [address] [place] [address] PCP - General Family Medicine 11/05/23 López Hernandez [address] [place] [phone] Referring Orthopedics 09/22/23 Ariel White MD [address] [place] [address] 27744 Remote Encoding Center Manager 02/20/24 Casting Machine Operator Automatic Relationship Specialty Start Date End Date Jack Priest CNP [address] [place] [address] PCP - General Family Medicine 11/05/23 López Hernandez [address] [place] [address] [address] [place] [address] Referring Orthopedics 09/22/23 Ariel White MD [address] [place] [address] 17648 Remote Encoding Center Manager 02/20/24 Casting Machine Operator Automatic Relationship Specialty Start Date End Date Jack Priest CNP [address] [place] [address]87 PCP - General Family Medicine 11/05/23 López Hernandez [address] [place] [phone] Referring Orthopedics 09/22/23 Ariel White MD [address] [place] [address]111 Remote Encoding Center Manager 02/20/24 Casting Machine Operator Automatic Relationship Specialty Start Date End Date Jack Priest CNP [address] [place] [address] [place] [address] PCP - General Family Medicine 11/05/23 López Hernandez [address] [place] [phone] Referring Orthopedics 09/22/23 Ariel White MD [address] [place] [address] 36626 Remote Encoding Center Manager 02/20/24 Casting Machine Operator Automatic Relationship Specialty Start Date End Date Jack Priest CNP [address] [place] [address]102 PCP - General Family Medicine 11/05/23 López Hernandez [address] [place] [address] Referring Orthopedics 09/22/23 Ariel White MD [address] [place] [address] 53201 Remote Encoding Center Manager 02/20/24 Casting Machine Operator Automatic Relationship Specialty Start Date End Date Jack Priest CNP [address] [place] [address]38 PCP - General Family Medicine 11/05/23 López Hernandez [address] [place] [phone] Referring Orthopedics 09/22/23 Ariel White MD [address] [place] [address] 29447 Remote Encoding Center Manager 02/20/24 Casting Machine Operator Automatic Relationship Specialty Start Date End Date Jack Priest CNP [address] [place] [address] [place] [address] PCP - General Family Medicine 11/05/23 López Hernandez [facility] [place] [phone] Referring Orthopedics 09/22/23 Ariel White MD [address] [place] [address]30 Remote Encoding Center Manager 02/20/24 Casting Machine Operator Automatic Relationship Specialty Start Date End Date Jack Priest CNP [address] [place] [address]233 PCP - General Family Medicine 11/05/23 López Hernandez [address] [place] [phone] Referring Orthopedics 09/22/23 Ariel White MD [address] [place] [address] 79761 Remote Encoding Center Manager 02/20/24 Casting Machine Operator Automatic Relationship Specialty Start Date End Date Jack Priest CNP [facility] [facility] [place] [address] PCP - General Family Medicine 11/05/23 López Hernandez [address] [place] [address] Referring Orthopedics 09/22/23 Ariel White MD [address] [place] [address] Remote Encoding Center Manager 02/20/24 Casting Machine Operator Automatic Relationship Specialty Start Date End Date Jack Priest CNP [address] [place] [address] [place] [address] PCP - General Family Medicine 11/05/23 López Hernandez [address] [place] [phone] Referring Orthopedics 09/22/23 Casting Machine Operator Automatic Relationship Specialty Start Date End Date Jack Priest APRN-CNP [address] [place] [address] PCP - General 01/13/24 Velma Torres [place] [address] Genetic Counselor Genetics 01/14/24 Casting Machine Operator Automatic Relationship Specialty Start Date End Date Jack Priest APRN-CNP [address] [place] [address] PCP - General 01/13/24 [place] [address] Genetic Counselor Genetics 01/14/24 Jenelle Lisa Sona, [facility] [place] [address] Genetic Counselor Genetics 02/15/24 Casting Machine Operator Automatic Relationship Specialty Start Date End Date Jack Priest CNP [address] [place] [address] PCP - General Family Medicine 11/05/23 López Hernandez [address] [place] [address] Referring Orthopedics 09/22/23 Ariel White MD [address] [place] [phone] Remote Encoding Center Manager 02/20/24 Casting Machine Operator Automatic Relationship Specialty Start Date End Date Jack Priest CNP [address] [place] [address] PCP - General Family Medicine 11/05/23 López Hernandez [address] [place] [phone] Referring Orthopedics 09/22/23 Ariel White MD [address] [place] [address] [phone] Remote Encoding Center Manager 02/20/24 Casting Machine Operator Automatic Relationship Specialty Start Date End Date Jack Priest CNP [address] [place] [address] PCP - General Family Medicine 11/05/23 López Hernandez [address] [place] [phone] Referring Orthopedics 09/22/23 Ariel White MD [address] [place] [address] Remote Encoding Center Manager 02/20/24 Casting Machine Operator Automatic Relationship Specialty Start Date End Date Jack Priest CNP [address] [place] [address] [place] [address] PCP - General Family Medicine 11/05/23 López Hernandez [address] [place] [phone] Referring Orthopedics 09/22/23 Ariel White MD [address] [place] [address] 07695 Remote Encoding Center Manager 02/20/24 Casting Machine Operator Automatic Relationship Specialty Start Date End Date Jack Priest CNP [address] [place] [address] [place] [address] PCP - General Family Medicine 11/05/23 López Hernandez [address] [place] [phone] Referring Orthopedics 09/22/23 Ariel White MD [address] [place] [address] Remote Encoding Center Manager 02/20/24 Casting Machine Operator Automatic Relationship Specialty Start Date End Date Jack Priest CNP [address] [place] [address] [place] [address] PCP - General Family Medicine 11/05/23 López Hernandez [address] [place] [address] [address] [place] [address] Referring Orthopedics 09/22/23 Ariel White MD [address] [place] [address]159 Remote Encoding Center Manager 02/20/24 Casting Machine Operator Automatic Relationship Specialty Start Date End Date Jack Priest CNP [address] [place] [address] PCP - General Family Medicine 11/05/23 López Hernandez [address] [place] [address] [address] [place] [address] Referring Orthopedics 09/22/23 Ariel White MD [address] [place] [address] 13529 Remote Encoding Center Manager 02/20/24 Casting Machine Operator Automatic Relationship Specialty Start Date End Date Jack Priest CNP [address] [place] [address] [place] [address] PCP - General Family Medicine 11/05/23 López Hernandez [address] [place] [phone] Referring Orthopedics 09/22/23 Ariel White MD [address] [place] [address] Remote Encoding Center Manager 02/20/24 Casting Machine Operator Automatic Relationship Specialty Start Date End Date Jack Priest CNP [address] [place] [address] [place] [address] PCP - General Family Medicine 11/05/23 López Hernandez [address] [place] [phone] Referring Orthopedics 09/22/23 Ariel White MD [address] [place] [address]46 Remote Encoding Center Manager 02/20/24 Casting Machine Operator Automatic Relationship Specialty Start Date End Date Jack Priest CNP [address] [place] [address] [place] [address] PCP - General Family Medicine 11/05/23 López Hernandez [address] [place] [phone] Referring Orthopedics 09/22/23 Ariel White MD [address] [place] [address] 11033 Remote Encoding Center Manager 02/20/24 Casting Machine Operator Automatic Relationship Specialty Start Date End Date Jack Priest CNP [address] [place] [address] [place] [address] PCP - General Family Medicine 11/05/23 López Hernandez [address] [place] [phone] Referring Orthopedics 09/22/23 Ariel White MD [address] [place] [address] 49896 Remote Encoding Center Manager 02/20/24 Casting Machine Operator Automatic Relationship Specialty Start Date End Date Jack Priest CNP [address] [place] [address] [place] [address] PCP - General Family Medicine 11/05/23 López Hernandez [address] [place] [address] Referring Orthopedics 09/22/23 Ariel White MD [address] [place] [phone] Remote Encoding Center Manager 02/20/24 Jack Priest CNP [address] [place] [address] [place] [address] Referring Family Medicine 08/25/24 Casting Machine Operator Automatic Relationship Specialty Start Date End Date Jack Priest CNP [address] [place] [address] [place] [address] PCP - General Family Medicine 11/05/23 López Hernandez [address] [place] [address] Referring Orthopedics 09/22/23 Ariel White MD [address] [place] [address] [place] [address] Remote Encoding Center Manager 02/20/24 Jack Priest CNP [address] [place] [address] [place] [address] Referring Family Medicine 08/25/24 Casting Machine Operator Automatic Relationship Specialty Start Date End Date Jack Priest CNP [address] [place] [address] [place] [address] PCP - General Family Medicine 11/05/23 López Hernandez [address] [place] [address] Referring Orthopedics 09/22/23 Ariel White MD [address] [place] [address] 76190 Remote Encoding Center Manager 02/20/24 Jack Priest CNP [address] [place] [address] [place] [address] Referring Family Medicine 08/25/24 Casting Machine Operator Automatic Relationship Specialty Start Date End Date Jack Priest CNP [address] [place] [address] [place] [address] PCP - General Family Medicine 11/05/23 López Hernandez [address] [place] [phone] Referring Orthopedics 09/22/23 Ariel White MD [address] [place] [address] 03468 Remote Encoding Center Manager 02/20/24 Jack Priest CNP [address] [place] [address] [place] [address] Referring Family Medicine 08/25/24 Casting Machine Operator Automatic Relationship Specialty Start Date End Date Jack Priest CNP [address] [place] [address] [place] [address] PCP - General Family Medicine 11/05/23 López Hernandez [address] [place] [phone] Referring Orthopedics 09/22/23 Ariel White MD [address] [place] [address] 52572 Remote Encoding Center Manager 02/20/24 Jack Priest CNP [address] [place] [address] [place] [address] Referring Family Medicine 08/25/24 Casting Machine Operator Automatic Relationship Specialty Start Date End Date Jack Priest CNP [address] [place] [address] [place] [address] PCP - General Family Medicine 11/05/23 López Hernandez [address] [facility] [address] [place] [phone] Referring Orthopedics 09/22/23 Ariel White MD [address] [place] [address] 19752 Remote Encoding Center Manager 02/20/24 Jack Priest CNP [address] [place] [address] [place] [address] Referring Family Medicine 08/25/24 Casting Machine Operator Automatic Relationship Specialty Start Date End Date Jack Priest CNP [address] [place] [address] [place] [address] PCP - General Family Medicine 11/05/23 López Hernandez [address] [place] [phone] Referring Orthopedics 09/22/23 Ariel White MD [address] [place] [address] [facility] [place] [address] Remote Encoding Center Manager 02/20/24 Jack Priest CNP [address] [place] [address] [place] [address] Referring Family Medicine 08/25/24 Casting Machine Operator Automatic Relationship Specialty Start Date End Date Jack Priest APRN - CNP [address] [place] [address] PCP - General Family Nurse Practitioner 01/01/25 Casting Machine Operator Automatic Relationship Specialty Start Date End Date Jack Priest APRN - CNP [address] [place] [address] PCP - General Family Nurse Practitioner 01/01/25 INFORMATION SOURCE (unrecogn ized section and content) DATE CREATED AUTHOR 09/29/2022 [facility] DATE CREATED AUTHOR AUTHOR'S ORGANIZ ATION 04/16/2023 [facility] DATE CREATED AUTHOR AUTHOR'S ORGANIZ ATION 12/27/2023 [facility] DATE CREATED AUTHOR AUTHOR'S ORGANIZ ATION 01/03/2024 [facility] ([place]) DATE CREATED AUTHOR AUTHOR'S ORGANIZ ATION 01/08/2024 [facility] DATE CREATED AUTHOR AUTHOR'S ORGANIZ ATION 03/08/2024 [facility] DATE CREATED AUTHOR AUTHOR'S ORGANIZ ATION 07/13/2024 [facility] DATE CREATED AUTHOR AUTHOR'S ORGANIZ ATION 08/08/2024 [facility] DATE CREATED AUTHOR AUTHOR'S ORGANIZ ATION 09/11/[address] [facility] DATE CREATED AUTHOR AUTHOR'S ORGANIZ ATION 09/26/2024 [facility] DATE CREATED AUTHOR AUTHOR'S ORGANIZ ATION 12/17/2024 [facility] DATE CREATED AUTHOR AUTHOR'S ORGANIZ ATION 03/13/2025 [facility] DATE CREATED AUTHOR AUTHOR'S ORGANIZ ATION 03/30/2025 [facility] DATE CREATED AUTHOR AUTHOR'S ORGANIZ ATION 03/30/2025 [facility] Reason for Visit (unrecogniz ed section and content) Reason Comments Consult To establish care Specialty Diagnoses / Procedures Referred By Contac t Referred To Contact CT IMAGING Diagnoses Moderate persistent asthma without complication Procedures CT CHEST WO IVCON DIAGNOSTIC COMPUTED TOMOGRAPHY THORAX W/O CNTRST Jack Alvarez MD [id number] Imaging [facility] Referral ID Status Reason Start Date Expiration Date V isits Requested Visits Authorized [id number] Closed Auto-Generate d Referral 04/04/2023 05/03/2024 1 1 Reason Comments Patient Question Reason Comments FILM REQ-CIUNI Reason Comments New Nodule Specialty Diagnoses / Procedures Referred By Contac t Referred To Contact [facility] Diagnoses Moderate persistent asthma without complication Procedures SPIROMETRY - BASELINE AND POST DILATOR BRNCDILAT RSPSE SPMTRY PRE&POST-BRNCDILAT ADMN Jack Alvarez MD [address] [place] [address] [facility] [address] [place] [address] Referral ID Status Reason Start Date Expiration Date V isits Requested Visits Authorized [id number] Closed Auto-Generate d Referral 04/04/2023 05/03/2024 1 1 Reason Comments Results Reason Comments Appointment Reason Comments New Patient Specialty Diagnoses / Procedures Referred By Contac t Referred To Contact Ent - Otolaryngology Diagnoses Chronic recurrent sinusitis Procedures CONSULT TO ENT OFFICE/OUTPATIENT [facility] 60 MINUTES Yasmine Alberto, DO [address] [phone] Referral ID Status Reason Start Date Expiration Date V isits Requested Visits Authorized [id number] Closed PCP Requested Referral 06/06/2023 06/05/2024 1 1 Reason Comments Pain (foot) Left ankle pain, out er lower x 1 monthStates pain is on and off and worse when its cold Reason Comments New Patient Specialty Diagnoses / Procedures Referred By Contparker t Referred To Contact Breast Diseases Diagnoses Cyst of left breast Breast pain Family history of breast cancer Procedures CONSULT TO BREAST CENTER OFFICE/OUTPATIENT [facility] 60-74 MINUTES Lul Carranza APRN.BIOMATHEMATICIAN [address] [phone] Referral ID Status Reason Start Date Expiration Date V isits Requested Visits Authorized [id number] Closed PCP Requested Referral 04/26/2023 07/25/2023 1 1 Reason Comments Cough Chest congestion, NV D x2 days Reason Comments Chest Pain Reason Comments Appointment Cancelled Specialty Diagnoses / Procedures Referred By Elijah t Referred To Contact [facility] Diagnoses 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 Procedures CONSULT TO PHYSICAL THERAPY PHYSICAL THERAPY EVALUATION HIGH COMPLEX 45 MINS Aury Tristan, DO [address] [place] [address] [facility] [address] [phone] Referral ID Status Reason Start Date Expiration Date Visits Requested Visits Authorized [id number] Authorized Auto-Generat ed Referral 05/21/2023 05/20/2024 30 30 Reason Comments Diarrhea Specialty Diagnoses / Procedures Referred By Contac t Referred To Contact Gastroenterology Diagnoses Irritable bowel syndrome with diarrhea Procedures CONSULT TO GASTROENTEROLOGY OFFICE/OUTPATIENT [facility] 60 MINUTES Aury Tristan, DO [address] [place] [address] Referral ID Status Reason Start Date Expiration Date V isits Requested Visits Authorized [id number] Closed PCP Requested Referral 08/06/2023 08/05/2024 1 [...] Referred By Contac t Referred To Contact [facility] Diagnoses Menorrhagia with regular cycle Procedures NEXPLANON INSERTION ETONOGESTREL IMPLANT SYSTEM INSERT DRUG IMPLANT DEVICE Marilyn Piña APRN.[facility] [address] [place] [address] [facility] [address] [place] [address] Referral ID Status Reason Start Date Expiration Date V isits Requested Visits Authorized [id number] Closed Auto-Generate d Referral 12/03/2023 12/02/2024 1 1 Reason Comments Irregular Menstrual Cycle Reason Comments Radiology NM Specialty Diagnoses / Procedures Referred By Cox Bransonac t Referred To Contact MOLECULAR & FUNCTIONAL IMAGING Diagnoses Nausea Procedures NM GASTRIC EMPTYING SOLID GASTRIC EMPTYING STUDY Mary Parsons PA-C [address] [place] [address] Molecular [facility] Functional Imaging [address] [place] [address] Referral ID Status Reason Start Date Expiration Date V isits Requested Visits Authorized [id number] Closed Auto-Generate d Referral 11/21/2023 01/05/2024 1 [...] REDUCTION BREAST BILATERAL [facility] [address] [phone] Referral ID Status Reason Start Date Expiration Date Visits Re quested Visits Authorized [id number] 1 1 Reason Comments Patient Update missed call Reason Comments Post Op Reason Comments Derm Problem Surgery wounds, on b ilat breasts, steri strips came off both, L breasts oozing at bottom seam Reason Comments Abnormal Lab Reason Comments Orders [facility]/modified barium swallow Reason Comments Sore Throat ST, chest congestion , bodyaches, MARVIN and chills x 4 days Reason Comments Speech Instrumental Swallow Eval Speech Discharge Specialty Diagnoses / Procedures Referred By Contac t Referred To Contact XR IMAGING Diagnoses Dysphagia, unspecified type Procedures XR MODIFIED BARIUM SWALLOW W SPEECH THERAPY RADIOLOGIC EXAM SWALLOW FUNCTION CONTRAST STUDY Mary Parsons PA-C [address] [place] [address] Xr Imaging [address] [address] Referral ID Status Reason Start Date Expiration Date V isits Requested Visits Authorized [id number] Closed Auto-Generate d Referral 02/21/2024 03/22/2025 1 1 Reason Comments PT Eval Reason Comments Radiology CT Specialty Diagnoses / Procedures Referred By [facility] Bransonac t Referred To Contact CT IMAGING Diagnoses Lung nodules Procedures CT CHEST WO IVCON DIAGNOSTIC COMPUTED TOMOGRAPHY THORAX W/O CNTRST Lul Carranza, NET TECHNICAL ARCHITECT.BIOMATHEMATICIAN [phone] Imaging [place] [address] Referral ID Status Reason Start Date Expiration Date V isits Requested Visits Authorized [id number] Closed Auto-Generate d Referral 03/24/2024 05/08/2024 1 1 Reason Comments Physical Therapy Reason Comments Established Patient Reason Comments Nodule Reason Comments Orders Reason Comments New Patient H/o lung nodules, re ferred for possible bronchoscopy Specialty Diagnoses / Procedures Referred By [facility] Branson[facility] t Referred To Contact Pulmonary Disease Diagnoses Lung nodules Procedures CONSULT TO LUNG NODULE CLINIC OFFICE/OUTPATIENT NEW HIGH MDM 60 MINUTES Lul Carranza, NET TECHNICAL ARCHITECT.BIOMATHEMATICIAN [address] [phone] Phone: tel: fax: Referral ID Status Reason Start Date Expiration Date V isits Requested Visits Authorized [id number] Closed PCP Requested Referral 06/27/2024 06/27/2025 1 1 Reason Onset Date Comments Bronchoscopy Scheduling 07/02/2024 Initial Bronch Request Reason Comments Knuckle Strap Sewer - Other Reason Comments Recheck Reason Comments Consult Reason Comments Hospital F/U Reason Comments High Blood Sugar Reason Comments High Blood Sugar Specialty Diagnoses / Procedures Referred By Contac t Referred To Contact Diagnoses Prediabetes Procedures CONSULT TO DIABETES EDUCATION DSME MEDICAL NUTRITION ASSMT&IVNTJ INDIV EACH 15 [place] MEDICAL NUTRITION ASSMT&IVNTJ INDIV EACH 15 [place] MEDICAL NUTRITION ASSMT&IVNTJ INDIV EACH 15 [place] MEDICAL NUTRITION ASSMT&IVNTJ INDIV EACH 15 VT Pierce Proctor MD [address] [place] [address] Phone: tel: fax: Referral ID Status Reason Start Date Expiration Date V isits Requested Visits Authorized [id number] Closed PCP Requested Referral 09/15/2024 09/15/2025 1 1 Reason Onset Date Comments Refill Request 09/22/2024 Reason Comments Infection Follow Up Reason Comments Medication Preauthorization semaglutide, weight loss, (WEGOVY) 0.25 mg/0.5 mL pen injector Reason Comments New Patient Difficulty emptying bladder. Pelvic pain/tension. Specialty Diagnoses / Procedures Referred By Contparker t Referred To Contact Urogynecology Diagnoses Segmental and somatic dysfunction of pelvic region Pelvic pain Procedures [place] OFFICE/OUTPATIENT NEW HIGH MDM 60 MINUTES Ariel White [address] [place] [address] Phone: tel: fax: Jacquelin Anderson MD [address] [place] [address] [address] [place] [address] Phone: tel: fax: Referral ID Status Reason Start Date Expiration Date V isits Requested Visits Authorized [id number] Closed Specialty Services Required 01/01/2025 01/01/2026 1 1 Scheduled Active and Recently Administ ered Medications [...] indication: Prophylaxis, Pharmacist may modify dose per [facility] dose optimization consult agreement: Yes, Preprocedure 0731 (Sent with Pily ent - Provider: Ara Rubalcava RN)[phone] (Given - Provider: Michelle Moreland APRN.CRNA) [...] BE BASED ON THE PRIMARY CLINICAL RECORDS. [employer] [facility]. provides no warranty or guarantee of the accuracy or completeness of information in this document.
[2025-05-09 21:38] VITALS: BP 144/78; PULSE 77; RESP 16; TEMP 36.7; O2SAT 98
== END 2025-05-09 21:45 | disposition home or self-care (01) ==
PROVIDERS: Emergency Provider Emergency Medicine; PCP Registered Nurse; Visit Provider Emergency Medicine
DX: J40 Bronchitis, not specified as acute or chronic (principal); R05.9 Cough, unspecified; F41.1 Generalized anxiety disorder; K76.0 Fatty (change of) liver, not elsewhere classified
CPT/HCPCS: 71046; 99282

== ENCOUNTER → 2025-05-20 | Outpatient (CLI) | payer MEDICAID, SELFPAY ==
--- NOTE | 2025-05-20 09:21 | MRI_ITS ---
EXAM: ENTEROGRAPHY ABD/PEL 05/20/2025 CLINICAL HISTORY: R10.11 - RIGHT UPPER QUADRANT PAIN. TECHNIQUE: Procedure Code: MRIMRIENTER Modality: MR Procedure: ENTEROGRAPHY ABD/PEL Multiplanar and multisequence images were obtained without intravenous gadolinium contrast. CONTRAST: Clariscan VOLUME: 19 mL COMPARISON: none FINDINGS: The stomach shows average distension and wall thickness. The small bowel: The duodenum: shows normal caliber and wall thickness. The Jejunum shows standard caliber and wall thickness. The large bowel: The cecum and ascending colon, the descending and sigmoid colon shows uniform wall thickness with no significant wall edema. Colonic fecal loading and gaseous distension noted. The appendix is unremarkable. The liver shows homogenous parenchymal signal. Enoc hepatis appears intact. Common bile duct, hepatic ducts, and intrahepatic biliary radicles are not dilated. Patent portal vein and its branches. The gall bladder is not identified. Normal appearance of different anatomical parts of the pancreas. Both adrenals appear normal in size, shape, and configuration. Unremarkable spleen. Both kidneys appear normal in size, shape, and axis. No renal calculi. No masses, cyst or hydronephrosis was seen. Patent aorta, IVC & pelvic vasculatures. No pelvic masses related to the reproductive system. Unremarkable urinary bladder. No evidence of significant enlargement of the mesenteric or retroperitoneal lymph nodes. No ascites or pelvic collections. No free intra-peritoneal air. MRI/Enterography Abd/Pel IMPRESSION: No small bowel inflammatory changes or obvious masses. Reading [facility] [address]
[2025-05-20 09:49] VITALS: BP 113/73; PULSE 93; RESP 16; O2SAT 97
[2025-05-20] MEDS: Glucagon 1 MG/ML Syringe IV (10:49)
[2025-05-20 11:08] VITALS: BP 121/74; PULSE 90; RESP 16; O2SAT 98
== END | disposition home or self-care (01) ==
LOC: OPMRI 09:15
PROVIDERS: PCP Registered Nurse; Referring Provider Internal Medicine Gastroenterology; Visit Provider Internal Medicine Gastroenterology
DX: R10.11 Right upper quadrant pain (principal); R19.7 Diarrhea, unspecified; R11.0 Nausea; R10.12 Left upper quadrant pain
CPT/HCPCS: 74183; 96374; A9575; A4216; J1610